=== PATIENT | female | born 1950 | race Caucasian/White ===

== ENCOUNTER → 2016-06-23 | Outpatient (CLI) | payer MEDICAID ==
[~2016-06-23] MED LIST: AMLO10TA82 PO; ASPI-875 PO; ATOR40TA PO; CETI10CA PO; CHOL10003 PO; CLN150C PO; FURO20TA4 PO; GLIP10TA13 PO; GLIP5TAB26 PO; HYDR-1231 PO; HYDR-3816 PO; HYDR1TAB71 PO; LISI5TAB PO; LORA10TA7 PO; LOSA25TA15 PO; MAGN400C PO; METF-380 PO; MTF500T PO; POTA10CA43 PO; RT-ALBUTEROL SULF 2.5 MG/3 ML PRE-MIX VIAL INH ONE; SITA100T PO
== END ==
LOC: RT 11:22
PROVIDERS: ATTEND Internal Medicine Critical Care Medicine
DX: R06.09 Other forms of dyspnea (principal); E66.9 Obesity, unspecified; G47.33 Obstructive sleep apnea (adult) (pediatric); J30.9 Allergic rhinitis, unspecified
CPT/HCPCS: 94060; 94640; 94726; 94729

== ENCOUNTER → 2016-07-07 | Outpatient (CLI) | payer MEDICAID ==
[~2016-07-07] MED LIST changes: -RT-ALBUTEROL SULF 2.5 MG/3 ML PRE-MIX VIAL INH ONE
--- NOTE | 2016-07-07 08:56 | Diagnostic Imaging Report ---
INDICATION: Pneumonia. Comparison made with prior examination 11/19/15. FINDINGS: The heart size, mediastinal configuration, and pulmonary vascularity are within normal limits. There is no pleural effusion, pneumothorax, or pneumonia. The osseous structures are unremarkable. IMPRESSION: No acute cardiopulmonary abnormality. Dictated by: Dictated on workstation # [id number]
== END ==
LOC: RAD 08:33
PROVIDERS: ATTEND Nurse Practitioner Family
DX: J18.9 Pneumonia, unspecified organism (principal)
CPT/HCPCS: 71020

== ENCOUNTER → 2016-07-21 | Outpatient (CLI) | payer MEDICAID ==
--- NOTE | 2016-07-22 17:16 | Diagnostic Imaging Report ---
Bilateral screening mammogram The current study was also evaluated with a Computer Aided Detection (CAD) system. INDICATION: Screening. No current complaints stated on the questionnaire. COMPARISON: 06/27/2015. FINDINGS: The breasts are composed of heterogeneously dense parenchyma which may decrease mammographic sensitivity. There are scattered benign-appearing calcifications. Allowing for technique and positional differences, no suspicious change is seen. IMPRESSION: Dense breasts with no definite change. ACR BI-RADS Category 2: Benign findings. Result letter will be mailed to the patient. Note: At least 10% of breast cancer is not imaged by mammography. Dictated by: Dictated on workstation # [id number]
== END ==
LOC: RAD 13:47
PROVIDERS: ATTEND Nurse Practitioner Family
DX: Z12.31 Encounter for screening mammogram for malignant neoplasm of breast (principal)
CPT/HCPCS: 77067

== ENCOUNTER → 2016-07-21 | Outpatient (CLI) | payer MEDICAID ==
--- NOTE | 2016-07-21 14:22 | Diagnostic Imaging Report ---
PROCEDURE: CT chest without contrast. TECHNIQUE: Multiple contiguous axial images were obtained through the chest without the use of intravenous contrast. INDICATION: Shortness of breath. FINDINGS: There is a pericardial effusion layering out to a depth of up to 12 mm in thickness. The lungs are clear. There are no effusions or pneumothoraces. There is minimal calcific atherosclerosis of the aorta and aortic valve. There is no hilar or mediastinal lymphadenopathy. Images through the upper abdomen show stones layering in the dependent portion of the gallbladder. IMPRESSION: Cholecystolithiasis. Pericardial effusion. The pericardial effusion appears stable compared to CTA chest dated 06/07/2016. There has been interval clearing of the infiltrate in the right lung since the prior study. Dictated by: Dictated on workstation # [id number]
== END ==
LOC: RAD 13:42
PROVIDERS: ATTEND Nurse Practitioner Family
DX: G47.33 Obstructive sleep apnea (adult) (pediatric) (principal); J30.9 Allergic rhinitis, unspecified; E66.9 Obesity, unspecified; F41.9 Anxiety disorder, unspecified; D12.6 Benign neoplasm of colon, unspecified
CPT/HCPCS: 71250

== ENCOUNTER → 2016-10-07 | Outpatient (CLI) | payer MEDICAID ==
--- NOTE | 2016-10-11 10:31 | ECHOCARDIOGRAPHY REPORT ---
DATE OF SERVICE: 10/07/2016 REFERRING PHYSICIAN: Dr. Vicky Carrasco, [facility]. INDICATION: Coronary artery disease, hypertension. MEASUREMENTS: TopofForm LVID end diastolic 5.0, IVS thickness 1.2, LVPW thickness 1.2, left atrial diameter 5.3, ejection fraction 60%. FINDINGS: 1. Technical quality is good. 2. The left ventricle is normal in size with moderate left ventricular hypertrophy noted diffusely. Systolic function appeared to be normal. Estimated ejection fraction is 60%. Diastolic dysfunction is suggested by Doppler. 3. The left atrium is dilated. No clot or thrombus were seen within the left atrium. 4. The right atrium and right ventricle are normal in size. No clots or thrombus were seen within the right side. 5. Mitral valve is normal in morphology with mild mitral regurgitation noted by carotid Doppler flow. No mitral valve prolapse. No mitral valve stenosis. 6. The aortic valve is trileaflet with normal opening and closing pattern. No significant aortic stenosis or regurgitation was seen. 7. The tricuspid valve is normal in morphology with mild tricuspid regurgitation noted by carotid Doppler flow, Doppler echo of the tricuspid valve. Estimated pulmonary artery pressure of 37 plus right atrial pressure. 8. Pulmonic valve is functioning normally. 9. Small pericardial effusion of no hemodynamic significance was noted. CONCLUSION: 1. Moderate left ventricular hypertrophy noted diffusely with normal systolic function. Estimated ejection fraction is 60%. Diastolic dysfunction is suggested by Doppler. 2. Left atrial dilatation. 3. Mild mitral regurgitation. Mild tricuspid regurgitation. 4. Estimated pulmonary artery pressure of 45 mmHg. Job ID: [id number] DocumentID: [id number] Dictated Date: 10/11/2016 09:49:15 Product Marketing Coordinator Date: 10/11/2016 10:19:45 Dictated By: LISA PAIGE MD
== END ==
LOC: CARD 08:37
PROVIDERS: ATTEND Physician Assistant
DX: I25.10 Atherosclerotic heart disease of native coronary artery without angina pectoris (principal); I65.23 Occlusion and stenosis of bilateral carotid arteries; I10 Essential (primary) hypertension; R06.02 Shortness of breath
CPT/HCPCS: 93306

== ENCOUNTER → 2017-05-02 | Outpatient (CLI) | payer MEDICAID, MEDICARE | LOC: WOUNDCARE 09:29 | PROVIDERS: ATTEND Surgery | DX: L03.031 Cellulitis of right toe (principal); E11.628 Type 2 diabetes mellitus with other skin complications; S90.211A Contusion of right great toe with damage to nail, initial encounter | CPT/HCPCS: 99213 ==

== ENCOUNTER → 2017-07-22 | Outpatient (CLI) | payer MEDICARE, MEDICAID ==
[~2017-07-22] MED LIST changes: +HYDR-34 PO; -HYDR-3816 PO
--- NOTE | 2017-07-22 12:03 | Diagnostic Imaging Report ---
INDICATION: Routine screening. COMPARISON: Comparison is made with prior studies from 07/21/2016 and 06/27/2015. The current study was also evaluated with a Computer Aided Detection (CAD) system. FINDINGS: Both breasts are heterogeneously dense, limiting the sensitivity of mammography. The parenchymal pattern is stable. No dominant mass or malignant-appearing microcalcifications are seen. There are scattered benign-appearing parenchymal and vascular calcifications bilaterally. The axillae are unremarkable. IMPRESSION: No mammographic features suspicious for malignancy are identified. ACR BI-RADS Category 2: Benign findings. Result letter will be mailed to the patient. Note: At least 10% of breast cancer is not imaged by mammography. Dictated by: Dictated on workstation # [id number]
== END ==
LOC: RAD 09:52
PROVIDERS: ATTEND Nurse Practitioner Family
DX: Z12.31 Encounter for screening mammogram for malignant neoplasm of breast (principal)
CPT/HCPCS: 77067

== ENCOUNTER 2017-10-25 05:40 | Outpatient (CLI) | payer MEDICARE, MEDICAID ==
[~2017-10-25] VITALS: Ht 175.3 cm; Wt 115.2 kg
[2017-10-25] MEDS ORDERED: MONT10TA24 PO (15:12)
[2017-10-25] MEDS ORDERED: RT-ALBUINH IH (15:12)
[2017-10-25] MEDS ORDERED: ATOR40TA70 PO (15:12)
[2017-10-25] MEDS ORDERED: HYDR-3816 PO (15:12)
[2017-10-25] MEDS ORDERED: FURO20TA4 PO (15:12)
[2017-10-25] MEDS ORDERED: BACL20TA PO (15:12)
[2017-10-25] MEDS ORDERED: GLIP10TA13 PO (15:12)
[2017-10-25] MEDS ORDERED: ALBU0.63 IH (15:12)
[2017-10-25] MEDS ORDERED: METF10002 PO (15:12)
[2017-10-25] MEDS ORDERED: POTA10TA36 PO (15:12)
[2017-10-25] MEDS ORDERED: ASPI-999 PO (15:12)
[2017-10-25] MEDS ORDERED: FLUT9.9S NS (15:12)
[2017-10-25] MEDS ORDERED: LOSA50TA36 PO (15:12)
[2017-10-25] MEDS ORDERED: AMLO10TA2 PO (15:12)
[2017-10-25] MEDS ORDERED: LIRA0.6P SQ (15:12)
[2017-10-25] MEDS ORDERED: CETI10TA17 PO (15:12)
[2017-10-25] MEDS ORDERED: FERR-84 PO (15:12)
[2017-11-01] MEDS ORDERED: PANT40TA2 PO (09:30)
[2017-11-07] MEDS ORDERED: ACHD5005 PO (16:59)
== END 2017-10-25 15:16 ==
LOC: PREOP 05:40
PROVIDERS: ATTEND Surgery
DX: Z01.818 Encounter for other preprocedural examination (principal); D64.9 Anemia, unspecified; K92.1 Melena

== ENCOUNTER 2017-11-01 07:53 | Day surgery (SDC) | payer MEDICARE, MEDICAID ==
[~2017-11-01] VITALS: Ht 175.3 cm; Wt 115.2 kg
[~2017-11-01 07:53] MED LIST changes: +ALBU0.63 IH; +AMLO10TA2 PO; +ASPI-999 PO; +ATOR40TA70 PO; +BACL20TA PO; +CETI10TA17 PO; +FERR-84 PO; +FLUT9.9S NS; +HYDR-3816 PO; +LIRA0.6P SQ; +LOSA50TA36 PO; +METF10002 PO; +MONT10TA24 PO; +POTA10TA36 PO; +RT-ALBUINH IH
[2017-11-01] MEDS ORDERED: LACTATED RINGERS 1,000 ML IV ONE (07:58)
[2017-11-01] MEDS ORDERED: ceFAZolin 2 GM IV Premixed 50 ML ONE (08:07)
[2017-11-01] MEDS ORDERED: PROPOFOL INJECTION 50 ML IV ONE (08:07)
--- OUTSIDE RECORDS SUMMARY | 2017-11-01 08:07 | XMS REPORT ---
Author Author BOOGIE ARAUJO Organization [employer] Address Unknown Phone Unavailable Care Team Providers Care Tree Marker Name Role Phone BOOGIE ARAUJO CP Unavailable Allergies No Known Allergies Problems Problem Type Condition Code Onset Dates Condition Status Problem Other specified counseling V65.49 Active Problem Pain in joint, lower leg 719.46 Active Problem Routine gynecological examination V72.31 Active Problem Dysuria 788.1 Active Problem Issue of repeat prescriptions V68.1 Active Problem Diabetes 250.00 Active Problem Abdominal pain, other specified site 789.09 Active Problem Unspecified abnormal mammogram 793.80 Active Problem Pain in soft tissues of limb 729.5 Active Problem Unspecified constipation 564.00 Active Problem Urinary tract infection, site not specified 599.0 Active Problem Pain in joint, shoulder region 719.41 Active Assessment 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, controlled E11.9 Active Problem Other chronic pain 338.29 Active Assessment Seborrheic keratosis L82.1 Active Problem Unspecified breast screening V76.10 Active Medications No Known Medications Procedures Procedure Coding System Code Date COMPREHEN METABOLIC PANEL CPT-4 22338 May 07, 2015 ASSAY THYROID STIM HORMONE CPT-4 09456 May 07, 2015 COMPLETE CBC W/AUTO DIFF WBC CPT-4 94776 May 07, 2015 VENIPUNCT, ROUTINE* CPT-4 96749 May 07, 2015 LIPID PANEL CPT-4 02689 May 07, 2015 Results Name Result Date Reference Range Unit Abnormality Flag ROUTINE VENIPUNCTURE Summary Purpose eClinicalWorks Submission
--- OUTSIDE RECORDS SUMMARY | 2017-11-01 08:07 | XMS REPORT ---
Author Author BOOGIE ARAUJO [facility] e[employer] Address Unknown Phone Unavailable Care Team Providers Care Manuscripts Archivist Name Role Phone BOOGIE ARAUJO CP Unavailable Allergies, Adverse Reactions, Alerts Substance Reaction Event Type Diclofenac rash Drug Allergy Trilipix Info Not Available Drug Allergy Simcor chest pain, due to high doses of niacin in the simcor Drug Allergy Meloxicam elevated BG, fluid retention Drug Allergy Hydrochlorothiazide Info Not Available Drug Allergy Dimetapp Maximum Strength Info Not Available Drug Allergy BusPIRone HCl dizziness Drug Allergy Augmentin Info Not Available Drug Allergy Problems Problem Type Condition Code Onset Dates Condition Status Problem History of type 2 diabetes mellitus Z86.39 Active Problem History of abnormal mammogram Z87.898 Active Problem History of colon polyps Z86.010 Active Problem Unspecified constipation K59.00 Active Problem Nonspecific abdominal pain R10.9 Active Problem Pain in soft tissues of limb M79.609 Active Problem Other chronic pain G89.29 Active Problem Pain in joint, shoulder region M25.519 Active Problem H/O abnormal mammogram Z87.898 Active Problem Pain in joint, lower leg M25.569 Active Assessment 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, controlled E11.9 Active Assessment Seborrheic keratoses L82.1 Active Problem Numerous moles D22.9 Active Problem Thyroid nodule E04.1 Active Assessment Skin tags, multiple acquired L91.8 Active Problem Alternating constipation and diarrhea R19.8 Active Problem 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, controlled E11.9 Active Problem History of abnormal cervical Pap smear Z87.898 Active Medications Medication Code System Code Instructions Start Date End Date Status Dosage GlipiZIDE [facility] 78214249246 10 2 times a day 1 tablet Norvasc [facility] 86810273751 10 Once a day 1 tablet Colace [facility] [address]-42 100 mg Jun 28, 2014 1 capsule by Oral route 2 times per day PRN Zyrtec Allergy [facility] 14246381836 10 Once a day 1 tablet Aspirin [facility] 52282554958 81 TAKE ONE TABLET BY MOUTH DAILY MetFORMIN HCl ER [facility] [address]-95 750 MG Orally 2 times a day 1 tablet with evening meal Cozaar [facility] 89700528205 25 Once a day 1 tablet Blood Pressure Cuff [facility] 0 Apr 12, 2014 Dx: Hypertension Lipitor [facility] 89689410808 40 Once a day 1 tablet Vitamin D [facility] [address]-50 1000 UNIT Orally Once a day 1 tablet [place] [facility] [address]-10 7.5-325 MG Orally 3 times a day May 06, 2015 1 tablet as needed Procedures Procedure Coding System Code Date CRYOTHERAPY OF SKIN CPT-4 50673 Jun 17, 2015 Office Visit, Est Pt., Level 3 CPT-4 51751 Jun 17, 2015 Vital Signs Date/Time: Jun 17, 2015 Temperature 97.7 F Weight 262.6 lbs Height 69 in BMI 38.78 Index Blood Pressure Diastolic 84 mmHg Blood Pressure Systolic 136 mmHg Cardiac Monitoring Heart Rate 120 bpm Results Name Result Date Reference Range Unit Abnormality Flag CRYOTHERAPY OF SKIN Summary Purpose eClinicalWorks Submission
--- OUTSIDE RECORDS SUMMARY | 2017-11-01 08:07 | XMS REPORT ---
Author Author BOOGIE ARAUJO Organization [employer] Address Unknown Phone Unavailable Care Team Providers Care Double Needle Operator Lockstitch Name Role Phone BOOGIE ARAUJO CP Unavailable [...] Pain in joint, shoulder region 719.41 Active Problem Other chronic pain 338.29 Active Problem Unspecified breast screening V76.10 Active Medications No Known Medications Results No Known Results Summary Purpose eClinicalWorks Submission
--- OUTSIDE RECORDS SUMMARY | 2017-11-01 08:07 | XMS REPORT ---
Author BOOGIE Terrazas [facility] [place] e[employer] Address Unknown Phone Unavailable Care Team Providers Care Production Quality Manager Name Role Phone BOOGIE ARAUJO CP Unavailable [...] 729.5 Active Problem Unspecified constipation 564.00 Active Assessment Seborrheic keratoses L82.1 Active Assessment Skin tags, multiple acquired L91.8 Active Problem Urinary tract infection, site not specified 599.0 Active Problem Pain in joint, shoulder region 719.41 Active Assessment Encounter for immunization Z23 Active Problem Other chronic pain 338.29 Active Assessment Nevoid hyperpigmentation L81.9 Active Problem Unspecified breast screening V76.10 Active Medications Medication Code System Code Instructions Start Date End Date Status Dosage Aspirin [facility] 88055758053 81 TAKE ONE TABLET BY MOUTH DAILY Hydrocodone-Acetaminophen [facility] [address]-20 7.5-325 MG Orally every 8 hrs PRN MUST LAST 28 DAYS September 13, 2014 take 1 tablet Lipitor ND 22477614474 40 TAKE ONE TABLET BY MOUTH ONCE A DAY ZyrTEC NDC 0 10 mg Apr 12, 2014 1 tablet by Oral route 1 time per day Cozaar [facility] 60711062036 25 TAKE ONE TABLET BY MOUTH DAILY MetFORMIN HCl ER [facility] 75853104041 500 TAKE ONE TABLET BY MOUTH TWICE A DAY WITH MEALS GlipiZIDE [facility] 97963679703 10 TAKE ONE TABLET BY MOUTH TWICE A DAY BEFORE MEALS Colace [facility] [address]-99 100 mg Jun 28, 2014 1 capsule by Oral route 2 times per day PRN Blood Pressure Cuff [facility] 0 Apr 12, 2014 Dx: Hypertension Norvasc [facility] 90992646519 10 TAKE ONE TABLET BY MOUTH DAILY Procedures Procedure Coding System Code Date FLUARIX QUAD (3 & UP)-GSK CPT-4 27669 Mar 25, 2015 SINGLE IMMUNIZATION ADMIN CPT-4 94174 Mar 25, 2015 CRYOTHERAPY OF SKIN CPT-4 50902 Mar 25, 2015 Vital Signs Date/Time: Mar 25, 2015 Temperature 97.5 F Weight 266.9 lbs Height 69 in BMI 39.41 Index Blood Pressure Diastolic 84 mmHg Blood Pressure Systolic 138 mmHg Cardiac Monitoring Heart Rate 88 bpm Results No Known Results Immunizations Vaccine Administration Date FLUARIX QUAD (3 & UP)-GSK-2014Mar 25, 2015 Summary Purpose eClinicalWorks Submission
--- OUTSIDE RECORDS SUMMARY | 2017-11-01 08:07 | XMS REPORT ---
Author Author BOOGIE ARAUJO Organization [employer] Address Unknown Phone Unavailable Care Team Providers Care Switchboard Operator Helper Name Role Phone BOOGIE ARAUJO CP Unavailable Allergies No Known Allergies Problems Problem Type Condition ICD-9 Code Onset Dates Condition Status Problem Other [...] Instructions Start Date End Date Status Dosage Hydrocodone-Acetaminophen [facility] [address]-93 7.5-325 MG Orally every 8 hrs PRN MUST LAST 28 DAYS September 13, 2014 take 1 tablet Results No Known Results Summary Purpose eClinicalWorks Submission
--- OUTSIDE RECORDS SUMMARY | 2017-11-01 08:07 | XMS REPORT ---
Author Author BOOGIE ARAUJO Organization [facility] Address [address] [place] [address] Care Team Providers Care Central Office Maintainer Name Role Phone BOOGIE ARAUJO Unavailable PROBLEMS Type Condition ICD9-CM Code [id number] Code Onset Dates Condition Status SNOMED Code Problem Pain in joint, shoulder region M25.519 Active 295204540 Problem Pain in joint, lower leg M25.569 Active 782328479 Problem Other chronic pain G89.29 Active 225583490 Problem Thoracogenic scoliosis of thoracolumbar region M41.35 Active 71733507 Problem Uncontrolled type 2 diabetes mellitus without complication, without long-term current use of insulin E11.65 Active 008446042 Problem Nonspecific abdominal pain R10.9 Active 104215989 Problem H/O abnormal mammogram Z87.898 Active 987330861 Problem Pain in soft tissues of limb M79.609 Active 64828820 Problem Unspecified constipation K59.00 Active 20659002 Problem 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, controlled E11.9 Active 49048132 Problem Numerous moles D22.9 Active 185086878 Assessment Pain in unspecified shoulder M25.519 13 May, 2016 Active 597047729 Problem History of abnormal cervical Pap smear Z87.898 Active 715238482 Problem History of type 2 diabetes mellitus Z86.39 Active 268534543 Problem Thyroid nodule E04.1 Active 810785029 Problem History of colon polyps Z86.010 Active 969383267 Problem Alternating constipation and diarrhea R19.8 Active 435367510 Problem History of abnormal mammogram Z87.898 Active 756161785 ALLERGIES Unknown Allergies SOCIAL HISTORY No smoking Hx information available PLAN OF CARE VITAL SIGNS MEDICATIONS Medication Instructions Dosage Frequency Start Date End Date Duration Status [place] 7.5-325 MG Orally 3 times a day 1 tablet as needed 8h 17 Apr, 2015 Active RESULTS No Results PROCEDURES No Known procedures IMMUNIZATIONS No Known Immunizations
--- OUTSIDE RECORDS SUMMARY | 2017-11-01 08:07 | XMS REPORT ---
Author Author BOOGIE ARAUJO Organization [employer] Address Unknown Phone Unavailable Care Team Providers Care Wet Mix Operator Name Role Phone BOOGIE ARAUJO CP Unavailable [...] Pain in joint, lower leg M25.569 Active Problem Numerous moles D22.9 Active Problem Thyroid nodule E04.1 Active Problem Alternating constipation and diarrhea R19.8 Active Problem 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, controlled E11.9 Active Problem History of abnormal cervical Pap smear Z87.898 Active Medications No Known Medications Results No Known Results Summary Purpose eClinicalWorks Submission
--- OUTSIDE RECORDS SUMMARY | 2017-11-01 08:07 | XMS REPORT ---
Author Author BOOGIE ARAUJO Organization [facility] Address [address] [place] [address] Care Team Providers Care Remote Encoding Center Manager Name Role Phone BOOGIE ARAUJO Unavailable PROBLEMS Type Condition ICD9-CM Code [id number] Code Onset Dates Condition Status SNOMED Code Problem Thyroid nodule E04.1 Active 927509986 Problem 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, controlled E11.9 Active 40195974 Problem Screening breast examination Z12.39 Active 294964317 Problem Allergic rhinitis, unspecified allergic rhinitis trigger, unspecified rhinitis seasonality J30.9 Active 04033528 Problem History of abnormal cervical Pap smear Z87.898 Active 773871818 Problem History of colon polyps Z86.010 Active 837272958 Problem Thoracogenic scoliosis of thoracolumbar region M41.35 Active 93058325 Problem Uncontrolled type 2 diabetes mellitus without complication, without long-term current use of insulin E11.65 Active 656616178 ALLERGIES Unknown Allergies SOCIAL HISTORY No smoking Hx information available PLAN OF CARE VITAL SIGNS MEDICATIONS Medication Instructions Dosage Frequency Start Date End Date Duration Status [place] 7.5-325 MG Orally 3 times a day 1 tablet as needed 8h 10 Jun, 2016 28 days Active RESULTS No Results PROCEDURES No Known procedures IMMUNIZATIONS No Known Immunizations
[2017-11-01] MEDS ORDERED: proPOfol 200 MG/20 ML (DIPRIVAN) VIAL IV ONE ×2 (08:08→08:58)
--- NOTE | 2017-11-01 08:08 | Progress Note-Pre Operative ---
Pre-Operative Progress Note H&P Reviewed The H&P was reviewed, patient examined and no changes noted. Date Seen by Provider: November 01, 2017 Time Seen by Provider: 08:07 Date H&P Reviewed: November 01, 2017 Time H&P Reviewed: 08:07 Pre-Operative Diagnosis: constipation, blood in stool, iron def anemia DAVID SMYTH DO November 01, 2017 08:08
--- OUTSIDE RECORDS SUMMARY | 2017-11-01 08:08 | XMS REPORT ---
Author BOOGIE Terrazas [facility] eClinicalWorks Address Unknown Phone Unavailable Care Team Providers Care Resp Ther Name Role Phone BOOGIE ARAUJO CP Unavailable [...] Available Drug Allergy Problems Problem Type Condition ICD-9 Code Onset [...] Active Problem Unspecified constipation 564.00 Active Assessment Shoulder pain, left 719.41 Active Problem Urinary tract infection, site not specified 599.0 Active Problem Pain in joint, shoulder region 719.41 Active Assessment Tinea corporis 110.5 Active Problem Other chronic pain 338.29 Active Assessment Diabetes 250.00 Active Problem Unspecified breast screening V76.10 Active Medications Medication Code System Code Instructions Start Date End Date Status Dosage Colace [facility] [address]-69 100 mg Jun 28, 2014 1 capsule by Oral route 2 times per day PRN Blood Pressure Cuff [place] 0 Apr 12, 2014 Dx: Hypertension Hydrocodone-Acetaminophen [facility] [address]-75 7.5-325 MG Orally every 8 hrs PRN MUST LAST 28 DAYS September 13, 2014 take [address] [facility] 70575800621 10 TAKE ONE TABLET BY MOUTH DAILY ZyrTEC ND 0 10 mg Apr 12, 2014 1 tablet by Oral route 1 time per day Aspirin [facility] 38951807456 81 TAKE ONE TABLET BY MOUTH DAILY Lipitor [facility] 87849288866 40 TAKE ONE TABLET BY MOUTH ONCE A DAY Cozaar [facility] 11972559588 25 TAKE ONE TABLET BY MOUTH DAILY GlipiZIDE [facility] 49991858233 10 TAKE ONE TABLET BY MOUTH TWICE A DAY BEFORE MEALS MetFORMIN HCl ER [facility] 93551506887 500 TAKE ONE TABLET BY MOUTH TWICE A DAY WITH MEALS Procedures Procedure Coding System Code Date MICROALBUMIN, SEMIQUANT CPT-4 68163 Feb 26, 2015 Office Visit, Est Pt., Level 3 CPT-4 52951 Feb 26, 2015 GLYCATED HEMOGLOBIN TEST CPT-4 38506 Feb 26, 2015 URINALYSIS, AUTO W/SCOPE CPT-4 36738 Feb 26, 2015 URINALYSIS, AUTO, W/O SCOPE CPT-4 79624 Feb 26, 2015 Vital Signs Date/Time: Feb 26, 2015 Temperature 98.0 F Weight 266 lbs Height 69 in BMI 39.28 Index Blood Pressure Diastolic 82 mmHg Blood Pressure Systolic 138 mmHg Cardiac Monitoring Heart Rate 78 bpm Results No Known Results Summary Purpose eClinicalWorks Submission
--- OUTSIDE RECORDS SUMMARY | 2017-11-01 08:08 | XMS REPORT ---
Author Author HELIO WILEY [employer] Address Unknown Phone Unavailable Care Team Providers Care Skill Labor Name Role Phone HELIO WILEY CP Unavailable Allergies, Adverse Reactions, Alerts Substance [...] Type Condition Code Onset Dates Condition Status Assessment Other hemorrhoids K64.8 Active Assessment Other fatigue R53.83 Active Assessment Numerous moles D22.9 Active Assessment Thyroid nodule E04.1 Active Problem History of abnormal cervical Pap smear Z87.898 Active Assessment Cold intolerance R68.89 Active Problem History of type 2 diabetes mellitus Z86.39 Active Assessment Alternating constipation and diarrhea R19.8 Active Problem History of colon polyps Z86.010 Active Problem Diabetes E11.9 Active Problem History of abnormal mammogram Z87.898 Active Problem Unspecified constipation K59.00 Active Problem Nonspecific abdominal pain R10.9 Active Assessment History of abnormal cervical Pap smear Z87.898 Active Assessment History of anxiety Z86.59 Active Problem Pain in soft tissues of limb M79.609 Active Assessment History of depression Z86.59 Active Problem Other chronic pain G89.29 Active Problem Pain in joint, shoulder region M25.519 Active Problem H/O abnormal mammogram Z87.898 Active Problem Pain in joint, lower leg M25.569 Active Assessment History of abnormal mammogram Z87.898 Active Assessment Papanicolaou smear Z12.4 Active Assessment History of type 2 diabetes mellitus Z86.39 Active Assessment History of colon polyps Z86.010 Active Problem Thyroid nodule E04.1 Active Problem Alternating constipation and diarrhea R19.8 Active Assessment Well woman exam Z01.419 Active Problem Numerous moles D22.9 Active Medications Medication Code System Code Instructions Start Date End Date Status Dosage Blood Pressure Cuff [facility] 0 Apr 12, 2014 Dx: Hypertension Norvasc [facility] 82964344522 10 TAKE ONE TABLET BY MOUTH DAILY Vitamin D [facility] [address]-71 1000 UNIT Orally Once a day 1 tablet Lipitor [facility] 42268186240 40 TAKE ONE TABLET BY MOUTH ONCE A DAY Zyrtec Allergy [facility] 56071002751 10 TAKE ONE TABLET BY MOUTH DAILY [place] [facility] [address]-93 7.5-325 MG Orally 3 times a day May 06, 2015 1 tablet as needed GlipiZIDE [facility] 99709583050 10 TAKE ONE TABLET BY MOUTH TWICE A DAY BEFORE MEALS Cozaar [facility] 48280778012 25 TAKE ONE TABLET BY MOUTH DAILY Aspirin [facility] 95462509891 81 TAKE ONE TABLET BY MOUTH DAILY MetFORMIN HCl ER [facility] 33545298367 500 TAKE ONE TABLET BY MOUTH TWICE A DAY WITH MEALS Colace [facility] [address]-98 100 mg Jun 28, 2014 1 capsule by Oral route 2 times per day PRN Procedures Procedure Coding System Code Date ASSAY, TRIIODOTHYRONINE (T3) CPT-4 75976 Jun 09, 2015 SPECIMEN HANDLING CPT-4 72977 Jun 09, 2015 ASSAY OF FREE THYROXINE CPT-4 43354 Jun 09, 2015 Preventive Care Est Pt. Age 40-64 CPT-4 18295 Jun 09, 2015 VENIPUNCT, ROUTINE* CPT-4 04851 Jun 09, 2015 Vital Signs Date/Time: Jun 09, 2015 Temperature 98.7 F Weight 270.0 lbs Height 69 in BMI 39.87 Index Blood Pressure Diastolic 78 mmHg Blood Pressure Systolic 132 mmHg Cardiac Monitoring Heart Rate 80 bpm Results Name Result Date Reference Range Unit Abnormality Flag ROUTINE VENIPUNCTURE Summary Purpose eClinicalWorks Submission
--- OUTSIDE RECORDS SUMMARY | 2017-11-01 08:08 | XMS REPORT ---
Author Author BOOGIE ARAUJO [facility] Address [address] [place] [address] Care Team Providers Care Tab Cutting Machine Operator Name Role Phone BOOGIE ARAUJO Unavailable PROBLEMS Type Condition ICD9-CM Code LZV87-ZV Code Onset Dates Condition Status SNOMED Code Problem Thyroid nodule E04.1 Active 319619835 Problem 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, controlled E11.9 Active 21457830 Problem Allergic rhinitis, unspecified allergic rhinitis trigger, unspecified rhinitis seasonality J30.9 Active 29766683 Problem Screening breast examination Z12.39 Active 883311066 Problem History of colon polyps Z86.010 Active 187394421 Problem History of abnormal cervical Pap smear Z87.898 Active 622721415 Problem Thoracogenic scoliosis of thoracolumbar region M41.35 Active 49265344 Problem Uncontrolled type 2 diabetes mellitus without complication, without long-term current use of insulin E11.65 Active [id number] ALLERGIES Unknown Allergies SOCIAL HISTORY No smoking Hx information available PLAN OF CARE VITAL SIGNS MEDICATIONS Unknown Medications RESULTS No Results PROCEDURES No Known procedures IMMUNIZATIONS No Known Immunizations
--- OUTSIDE RECORDS SUMMARY | 2017-11-01 08:08 | XMS REPORT ---
Author BOOGIE Terrazas [facility] e[employer] Address Unknown Phone Unavailable Care Team Providers Care Waste Elimination Name Role Phone BOOGIE ARAUJO CP Unavailable [...] Instructions Start Date End Date Status Dosage Bactrim DS [facility] [address]-71 800-160 MG Orally 2 times a day May 06, 2015 May 16, 2015 1 tablet ZyrTEC ND 0 10 mg Apr 12, 2014 1 tablet by Oral route 1 time per day Colace [facility] [address]-79 100 mg Jun 28, 2014 1 capsule by Oral route 2 times per day PRN Zyrtec Allergy [facility] 06576045102 10 TAKE ONE TABLET BY MOUTH DAILY GlipiZIDE [facility] 13301404839 10 TAKE ONE TABLET BY MOUTH TWICE A DAY BEFORE MEALS Norvasc [facility] 95747565102 10 TAKE ONE TABLET BY MOUTH DAILY Blood Pressure Cuff [facility] 0 Apr 12, 2014 Dx: Hypertension [place] [facility] [address]-15 7.5-325 MG Orally 3 times a day May 06, 2015 1 tablet as needed Lipitor [facility] 39542112387 40 TAKE ONE TABLET BY MOUTH ONCE A DAY Aspirin [facility] 58425087429 81 TAKE ONE TABLET BY MOUTH DAILY MetFORMIN HCl ER [facility] 79231266503 500 TAKE ONE TABLET BY MOUTH TWICE A DAY WITH MEALS Cozaar [facility] 64357419727 25 TAKE ONE TABLET BY MOUTH DAILY Procedures Procedure Coding System Code Date Office Visit, Est Pt., Level 3 CPT-4 30199 May 06, 2015 Vital Signs Date/Time: May 06, 2015 Temperature 97.7 F Weight 266.7 lbs Height 69 in BMI 39.38 Index Blood Pressure Diastolic 80 mmHg Blood Pressure Systolic 130 mmHg Cardiac Monitoring Heart Rate 82 bpm Results No Known Results Summary Purpose eClinicalWorks Submission
--- OUTSIDE RECORDS SUMMARY | 2017-11-01 08:08 | XMS REPORT ---
Author Author BOOGIE ARAUJO Organization [employer] Address Unknown Phone Unavailable Care Team Providers Care Mix House Tender Name Role Phone BOOGIE ARAUJO CP Unavailable [...] Instructions Start Date End Date Status Dosage [facility] [place] [address]-16 7.5-325 MG Orally 3 times a day May 06, 2015 1 tablet as needed Results No Known Results Summary Purpose eClinicalWorks Submission
--- OUTSIDE RECORDS SUMMARY | 2017-11-01 08:08 | XMS REPORT ---
Author Author BOOGIE ARAUJO [facility] [employer] Address Unknown Phone Unavailable Care Team Providers Care Acls Specialist Name Role Phone BOOGIE ARAUJO CP Unavailable [...] Instructions Start Date End Date Status Dosage [facility] [address]-51 7.5-325 MG Orally 3 times a day May 06, 2015 1 tablet as needed Results No Known Results Summary Purpose eClinicalWorks Submission
--- OUTSIDE RECORDS SUMMARY | 2017-11-01 08:08 | XMS REPORT ---
Author Author COLLEEN STEPHENS [facility] e[employer] Address Unknown Phone Unavailable Care Team Providers Care Receivable Manager Name Role Phone COLLEEN STEPHENS CP Unavailable Allergies, Adverse Reactions, Alerts Substance [...] in joint, lower leg M25.569 Active Assessment Allergic rhinitis, unspecified allergic rhinitis type J30.9 Active Problem Numerous moles D22.9 Active Problem Thyroid nodule E04.1 Active Assessment Sore throat J02.9 Active Problem Alternating constipation and diarrhea R19.8 Active Problem 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, controlled E11.9 Active Problem History of abnormal cervical Pap smear Z87.898 Active Medications Medication Code System Code Instructions Start Date End Date Status Dosage GlipiZIDE [facility] 02933459096 10 2 times a day 1 tablet Lipitor [facility] 26413295445 40 Once a day 1 tablet Atorvastatin Calcium [facility] 17120789033 40 MG TAKE ONE TABLET BY MOUTH ONCE DAILY Vitamin D [facility] [address]-79 1000 UNIT Orally Once a day 1 tablet Amlodipine Besylate ND 40057193618 10 MG TAKE ONE TABLET BY MOUTH ONCE DAILY Aspirin [facility] 23557915215 81 TAKE ONE TABLET BY MOUTH DAILY Flonase [facility] [address]-62 50 MCG/ACT Nasally Once a day 1 spray in each nostril Losartan Potassium [facility] 59136331942 25 MG TAKE ONE TABLET BY MOUTH ONCE DAILY FreeStyle Test [facility] 24212883148 TEST 1 TIME PER DAY Blood Pressure Cuff [facility] 0 Apr 12, 2014 Dx: Hypertension MetFORMIN HCl ER [facility] [address]-09 750 MG Orally 2 times a day 1 tablet with evening meal Montelukast Sodium [facility] [address]-01 10 MG Orally Once a day 1 tablet in the evening Zyrtec Allergy [facility] 72150804939 10 Once a day 1 tablet Mcgregor [facility] [address]-20 7.5-325 MG Orally 3 times a day May 06, 2015 1 tablet as needed Procedures Procedure Coding System Code Date Office Visit, Est Pt., Level 3 CPT-4 98548 December 29, 2015 STREP A ASSAY W/OPTIC CPT-4 13364 December 29, 2015 Vital Signs Date/Time: December 29, 2015 Cardiac Monitoring Heart Rate 92 bpm Weight 264.2 lbs Height 69 in Blood Pressure Diastolic 70 mmHg Blood Pressure Systolic 138 mmHg Results No Known Results Summary Purpose eClinicalWorks Submission
--- OUTSIDE RECORDS SUMMARY | 2017-11-01 08:09 | XMS REPORT ---
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 Name Role Phone BOOGIE ARAUJO Unavailable PROBLEMS Type Condition ICD9-CM Code MTR93-IC Code Onset Dates Condition Status SNOMED Code Problem 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, controlled E11.9 Active 81226348 Problem History of abnormal cervical Pap smear Z87.898 Active 822596200 Problem History of colon polyps Z86.010 Active 028678107 Problem Other chronic pain G89.29 Active 62357222 Problem Screening breast examination Z12.39 Active 005033205 Problem Uncontrolled type 2 diabetes mellitus without complication, without long-term current use of insulin E11.65 Active 123181396 Problem Thyroid nodule E04.1 Active 122634271 Problem Allergic rhinitis, unspecified allergic rhinitis trigger, unspecified rhinitis seasonality J30.9 Active 01763422 Problem Thoracogenic scoliosis of thoracolumbar region M41.35 Active 66129547 ALLERGIES No Information ENCOUNTERS Encounter Location Date Diagnosis [facility] [id number] [place] [address] 64678- 6935 02 Sep, 2017 [facility] [id number] [place] [address] 02756- 6148 Aug, Other chronic pain G89.29 [facility] [id number] [place] [address] 25458- 9610 Jul, Other chronic pain G89.29 [facility] [address] 26528- 6313 16 Jul, 2017 Pneumonia of left lower lobe due to infectious organism J18.1 [facility] [id number] [place] [address] 31183 -2872 12 Jul, 2017 Dysuria R30.0 ; Cough in adult patient R05 and Pneumonia of left lower lobe due to infectious organism J18.1 [facility] [address], [place] [address] 7511 Jul, [facility] [id number] [place] [address] 27086- 8805 Jun, Other chronic pain G89.29 [facility] [id number] [place] [address] 56337- 7623 Jun, [facility] [id number] [place] [address] 53508- 2765 Jun, 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, controlled E11.9 ; Back muscle spasm M62.830 and Other chronic pain G89.29 [facility] [id number] [place] [address] 05744- 8280 Jun, Screening breast examination Z12.31 [facility] [id number] [place] [address] 96341- 0967 May, Other chronic pain G89.29 [facility] [address], [place] [address] 3916 May, [facility] [id number] [place] [address] 63010- 8362 May, UTI (urinary tract infection) N39.0 [facility] [address], [place] [address]- 1279 May, Dysuria R30.0 [facility] [id number] [place] [address] 80900- 0007 May, Dysuria R30.0 [facility] [id number] [place] [address] 36582- 5597 04 May, 2017 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, controlled E11.9 ; longterm current use of 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 Z79.891 and Other chronic pain G89.29 [facility] [address], [place] [address]- 2868 Apr, 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, controlled E11.9 [facility] [address], [place] [address] 30 Mar, 2017 Paronychia of great toe, right L03.031 and Dysuria R30.0 [facility] [address], [place] [address]- 7009 09 Mar, 2017 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, controlled E11.9 [facility] [id number] [place] [address] 13324- 1199 28 Feb, 2017 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, controlled E11.9 [facility] [id number] [place] [address] [id number] 13 Feb, 2017 Dental examination Z01.20 [facility] [id number] [place] [address] 25168- 3402 11 Feb, 2017 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, controlled E11.9 [facility] [id number] [place] [address] 39686- 1964 07 Feb, 2017 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, controlled E11.9 [facility] [id number] [place] [address] 46068- 5230 Jan, 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, controlled E11.9 [facility] [id number] [place] [address] 76612- 8022 Dec, 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, controlled E11.9 [facility] [id number] [place] [address] 27770- 6124 Dec, 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, controlled E11.9 [facility] [id number] [place] [address] 24166- 3882 Nov, 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, controlled E11.9 [facility] [id number] [place] [address] 10342- 4007 Nov, 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, controlled E11.9 [facility] [id number] [place] [address] 77206- 1663 Nov, 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, controlled E11.9 [facility] [id number] [place] [address] 37714- 2513 19 Nov, 2016 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, controlled E11.9 [facility] [id number] [place] [address] 48423- 2495 14 Nov, 2016 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, controlled E11.9 [facility] [id number] [place] [address] 35244- 3748 Nov, 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, controlled E11.9 [facility] [id number] [place] [address] 92728- 0921 October, Pain in unspecified shoulder M25.519 [facility] [id number] [place] [address] 21198- 7999 October, 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, controlled E11.9 and Cellulitis of right lower extremity L03.115 [facility] [id number] [place] [address] 31575- 8639 October, Pain in unspecified shoulder M25.519 [facility] [id number] [place] [address] 97763- 8765 Sep, 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, controlled E11.9 [facility] [id number] [place] [address] 65427- 2739 Aug, Pain in unspecified shoulder M25.519 [facility] [id number] [place] [address] 40515- 7234 Aug, 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, controlled E11.9 [facility] [id number] [place] [address] 96682- 5209 Aug, 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, controlled E11.9 ; Dark urine R82.99 and Localized edema R60.0 [facility] [id number] [place] [address] 03311- 7459 Aug, Pain in unspecified shoulder M25.519 [facility] [id number] [place] [address] 80492- 9615 Jul, Pain in unspecified shoulder M25.519 [facility] [id number] [place] [address] 88533- 4892 06 Jul, 2016 [facility] [id number] [place] [address] 80533- 6814 02 Jul, 2016 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, 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 E11.9 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 [facility] [id number] [place] [address] 81230- 7172 Jun, 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, controlled E11.9 [facility] [id number] [place] [address] 02115- 3623 18 Jun, 2016 Screening breast examination Z12.39 and Allergic rhinitis, unspecified allergic rhinitis trigger, unspecified rhinitis seasonality J30.9 [facility] [id number] [place] [address] 34319- 3000 10 Jun, 2016 Pain in unspecified shoulder M25.519 [facility] [address] 12674- 4650 May, [facility] [id number] [place] [address] 19106- 8574 May, Pain in unspecified shoulder M25.519 [facility] [id number] [place] [address] 91582- 1039 05 May, 2016 Thoracogenic scoliosis of thoracolumbar region M41.35 ; Low back pain M54.5 ; Other chronic pain G89.29 and Uncontrolled type 2 diabetes mellitus without complication, without long-term current use of insulin E11.65 [facility] [id number] [place] [address] 65587- 2059 Apr, [facility] [address] 04815- 4149 15 Apr, 2016 [facility] [id number] [place] [address] 49117- 3597 04 Apr, 2016 History of type 2 diabetes mellitus Z86.39 and Encounter for immunization Z23 [facility] [id number] [place] [address]- 2355 Mar, [facility] [id number] [place] [address], [place] [address]- 1734 Mar, [facility] [id number] [place] [address]- 7915 Feb, [facility] [id number] [place] [address], [place] [address]- 6289 Jan, [facility] [id number] [place] [address], [place] [address]- 8926 Jan, [facility] [id number] [place] [address], [place] [address]- 7706 Dec, [facility] [address], [place] [address] -[address]3 Dec, Sore throat J02.9 and Allergic rhinitis, unspecified allergic rhinitis type J30.9 [facility] [address], [place] [address]- 1384 Dec, 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, controlled E11.9 [facility] [id number] [place] [address], [place] [address]- 1517 Nov, [facility] [address], [place] [address]- 2444 Nov, [facility] [address], [place] [address]- 2534 October, [facility] [address], [place] [address]- 6081 October, [facility] [id number] [place] [address], [place] 3899 Sep, [facility] [id number] [place] [address]- 1680 Aug, [facility] [id number] [place] [address] 532280- 7470 Aug, 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, controlled E11.9 ; UTI (urinary tract infection) N39.0 and Bacterial infection A49.9 [facility] [id number] [place] [address] 85019- 9840 Jul, [facility] [id number] [place] [address] 12661- 9728 Jul, [facility] [address] 71206- 4321 Jul, Pharyngitis J02.9 and Seborrheic keratoses L82.1 [facility] [id number] [place] [address] 21687- 6901 Jun, [facility] [id number] [place] [address] 51097- 8732 May, [facility] [address] 55147- 1324 May, Skin tags, multiple acquired L91.8 ; Seborrheic keratoses L82.1 and 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, controlled E11.9 [facility] [address] [place] [address] 37725- 9652 May, Well woman exam Z01.419 ; Papanicolaou smear Z12.4 ; History of abnormal mammogram Z87.898 ; History of colon polyps Z86.010 ; History of type 2 diabetes mellitus Z86.39 ; History of abnormal cervical Pap smear Z87.898 ; History of anxiety Z86.59 ; History of depression Z86.59 ; Alternating constipation and diarrhea R19.8 ; Cold intolerance R68.89 ; Thyroid nodule E04.1 ; Numerous moles D22.9 ; Other hemorrhoids K64.8 and Other fatigue R53.83 [facility] [address] [place] [address] 79745- 1906 May, [facility] [address] [place] [address] 60912- 0335 May, [facility] [id number] [place] [address] 42285- 6961 Apr, Seborrheic keratosis L82.1 and 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, controlled E11.9 [facility] [id number] [place] [address] 38466- 8958 Apr, Seborrheic keratosis L82.1 and 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, controlled E11.9 [facility] [id number] [place] [address] 57725- 3336 Mar, [facility] [id number] [place] [address] 26420- 5945 Mar, [facility] [id number] [place] [address] 39553- 4840 Mar, Encounter for immunization Z23 ; Nevoid hyperpigmentation L81.9 ; Skin tags, multiple acquired L91.8 and Seborrheic keratoses L82.1 [facility] [id number] [place] [address] 35563- 5576 Feb, [facility] [id number] [place] [address] 79848- 2264 Feb, [facility] [id number] [place] [address] 48762- 5189 Feb, [facility] [id number] [place] [address] 88009- 6414 Feb, Diabetes 250.00 ; Tinea corporis 110.5 and Shoulder pain, left 719.41 [facility] [id number] [place] [address] 23040- 1456 Jan, [facility] [address] 91123- 0785 Dec, [facility] [id number] [place] [address] 77190- 3151 Dec, [facility] [id number] [place] [address] 90102- 2456 Dec, Seborrheic keratoses 702.19 ; Diabetes 250.00 and Hypoglycemia 251.2 [facility] [address] 0289 Nov, [facility] [id number], [place] [address]- 9389 Nov, Abnormal mammogram 793.80 [facility] [id number] [place] [address] 69573- 1132 October, Diabetes 250.00 and Colon polyp 211.3 [facility] [address], [place] [address]- 7959 Sep, [facility] [id number] [place] [address] 56099- 9897 Sep, [facility] [address], [place] [address]- 2540 Sep, [facility] [address], [place] [address]- 0668 Aug, [facility] [address], [place] [address]- 5763 Aug, [facility] [address], [place] [address]- 8009 Jul, [facility] [address], [place] [address]- 3221 Jul, [facility] [address], [place] [address]- 4724 Jun, [facility] [address], [place] [address]- 5896 Jun, [facility] [address], [place] [address]- 7426 Jun, [facility] [id number], [place] [address]- 4106 Jun, [facility] [id number] [place] [address]- 6138 Jun, [facility] [address] [id number] [place] [address]- 8474 Jun, [facility] [place] [facility] [address] [id number] [place] [address]- 4597 May, [facility] [place] [facility] [address] [id number] [place] [address]- 4540 May, [facility] [place] [facility] [address] [id number] [place] [address]- 9308 Apr, [facility] [place] [facility] [address] [id number] [place] [address]- 8129 Apr, [facility] [place] [facility] [address] [id number] [place] [address]- 9263 Apr, [facility] [place] [facility] [address] [id number] [place] [address]- 1106 Apr, [facility] [place] [facility] [address] [id number] [place] [address]- 5305 Apr, [facility] [place] [facility] [address] [id number] [place] [address]- 8289 Apr, [facility] [place] [facility] [address] [id number] [place] [address]- 9691 Apr, [facility] [place] [facility] [address] [id number] [place] [address]- 4914 Apr, [facility] [place] [facility] [address] [id number] [place] [address]- 3773 Apr, [facility] [place] [facility] [address] [id number] [place] [address]- 3979 Apr, [facility] [place] [facility] [address] [id number] [place] [address]- 1477 Mar, [facility] [place] [facility] [address] [id number] [place] [address]- 2261 Mar, [facility] [place] [facility] [address] [id number] [place] [address]- 2548 Mar, [facility] [place] [facility] [address] [id number] [place] [address]- 5516 Mar, [facility] [place] [facility] [address] [id number] [place] [address]- 4291 Mar, [facility] [place] [facility] [address] [id number] [place] [address]- 4694 Mar, [facility] [place] [facility] [address] [id number] [place] [address]- 7116 Mar, [facility] [place] [facility] [address] [id number] [place] [address]- 0170 Mar, [facility] [place] [facility] [address] [id number] [place] [address]- 7525 Feb, [facility] [place] [facility] [address] [id number] [place] [address]- 3277 Feb, [facility] [place] [facility] [address] [id number] [place] [address]- 1764 Feb, [facility] [place] [facility] [address] [id number] [place] [address]- 9138 Feb, [facility] [place] [facility] [address] [id number] [place] [address]- 3396 Jan, [facility] [place] [facility] [address] [id number], [place] [address]- 6121 Jan, [facility] [place] [facility] [address] [id number] [place] [address]- 7560 Dec, [facility] [place] [facility] [address] [id number] [place] 9735 Dec, [facility] [place] [facility] [address] [id number] [place] 5782 Nov, [facility] [place] [facility] [address] [id number], [place] [address]- 1089 Nov, [facility] [address] [id number] [place] [address]- 9689 Nov, [facility] [place] [facility] [address] [id number] [place] [address]- 9522 Nov, [facility] [place] [facility] [address] [id number] [place] [address]- 6472 October, [facility] [place] [facility] [address] [id number] [place] [address]- 3098 October, [facility] [place] [facility] [address] [id number] [place] [address]- 3766 October, [facility] [place] [facility] [address] [id number] [place] [address]- 2589 October, [facility] [place] [facility] [address] [id number] [place] [address]- 4836 October, [facility] [place] [facility] [address] [id number] [place] [address]- 5783 October, [facility] [place] [facility] [address] [id number] [place] [address]- 7369 October, [facility] [place] [facility] [address] [id number] [place] [address]- 1237 October, [facility] [place] [facility] [address] [id number] [place] [address]- 9589 Aug, [facility] [place] [facility] [address] [id number] [place] [address]- 1629 Aug, [facility] [place] [facility] [address] [id number] [place] [address]- 0431 Jul, [facility] [place] [facility] [address] [id number] [place] [address]- 6156 Jul, [facility] [place] [facility] [address] [id number] [place] [address]- 4573 Jul, [facility] [place] [facility] [address] [id number] [place] [address]- 9087 Jul, [facility] [place] [facility] [address] [id number] [place] [address]- 2468 Jul, [facility] [place] [facility] [address] [id number] [place] [address]- 2894 Jun, [facility] [place] [facility] [address] [id number] [place] [address]- 9689 Jun, [facility] [place] [facility] [address] [id number] [place] [address]- 2653 May, [facility] [place] [facility] [address] [id number] [place] [address]- 8512 May, [facility] [place] [facility] [address] [id number] [place] [address]- 5191 Apr, [facility] [place] [facility] [address] [id number] [place] [address]- 9502 Apr, [facility] [place] [facility] [address] [id number] [place] [address] Mar, [facility] [place] [facility] [address] [id number] [place] [address] Mar, [facility] [place] [facility] [address] [id number] [place] [address] Mar, [facility] [place] [facility] [address] [id number], [place] [address] Feb, [facility] [place] [facility] [address] [id number] [place] [address] 20 Feb, 2013 [facility] [place] [facility] [address] [id number] [place] [address] 17 Feb, 2013 [facility] [place] [facility] [address] [id number] [place] [address] 04 Feb, 2013 [facility] [place] [facility] [address] [id number] [place] [address] Feb, [facility] [address] [id number] [place] [address] Jan, [facility] [place] [facility] [address] [id number] [place] [address] Dec, [facility] [place] [facility] [address] [id number] [place] [address] Nov, [facility] [place] [facility] [address] [id number] [place] [address] October, [facility] [address] [id number] [place] [address] Sep, [facility] [place] [facility] [address] [id number] [place] [address] Aug, [facility] [place] [facility] [address] [id number] [place] [address] Aug, [facility] [place] [facility] [address] [id number] [place] [address] Aug, [facility] [address] [id number] [place] [address] May, [facility] [place] [facility] [address] [id number] [place] [address]- [address] May, [facility] [place] [facility] [address] [id number] [place] [address] May, [facility] [place] [facility] [address] [id number] [place] [address] May, [facility] [place] [facility] [address] [id number] [place] [address] May, [facility] [place] [facility] [address] [id number] [place] [address] Apr, [facility] [place] [facility] [address] [id number] [place] [address]- [address] Apr, [facility] [place] [facility] [address] [id number] [place] [address] 14 Apr, 2012 [facility] [place] [facility] [address] [id number] [place] [address] 14 Apr, 2012 [facility] [place] [facility] [address] [id number] [place] [address] 07 Apr, 2012 [facility] [place] [facility] [address] [id number] [place] [address] 07 Apr, 2012 [facility] [place] [facility] [address] [id number] [place] [address] Apr, [facility] [place] [facility] [address] [id number] [place] [address], [place] [address]- [address] Apr, [facility] [place] [facility] [address] [id number] [place] [address] Mar, [facility] [place] [facility] [address] [id number] [place] [address] Mar, [facility] [place] [facility] [address] [id number] [place] [address] Mar, [facility] [place] [facility] [address] [facility] [id number] [place] [address] Mar, [facility] [place] [facility] [address] [facility] [id number] [place] [address]- [address] Mar, [facility] [place] [facility] [address] [id number] [place] [address] Mar, [facility] [place] [facility] [address] [id number] [place] [address] Mar, [facility] [place] [facility] [address] [id number] [place] [address] 28 Feb, 2012 [facility] [place] [facility] [address] [id number] [place] [address] 24 Feb, 2012 [facility] [place] [facility] [address] [id number] [place] [address] Feb, [facility] [place] [facility] [address] [id number] [place] [address]- [address] Feb, [facility] [place] [facility] [address] [id number] [place] [address] Jan, [facility] [place] [facility] [address] [id number] [place] [address] Jan, [facility] [place] [facility] [address] [id number] [place] [address] Jan, [facility] [place] [facility] [address] [id number] [place] [address]- [address] Jan, [facility] [place] [facility] [address] [id number] [place] [address]- [address] Jan, [facility] [place] [facility] [address] [id number] [place] [address]- [address] Jan, [facility] [place] [facility] [address] [id number] [place] [address] Dec, [facility] [place] [facility] [address] [id number] [place] [address] Dec, [facility] [place] [facility] [address] [id number] [place] [address] Dec, [facility] [place] [facility] [address] [id number] [place] [address] Dec, [facility] [place] [facility] [address] [id number] [place] [address] Dec, [facility] [place] [facility] [address] [id number] [place] [address] Dec, [facility] [place] [facility] [address] [id number] [place] [address] Dec, [facility] [place] [facility] [address] [id number] [place] [address] Dec, [facility] [place] [facility] [address] [id number] [place] [address] Nov, [facility] [address] [id number] [place] [address] Nov, [facility] [place] [facility] [address] [id number] [place] [address] Nov, [facility] [place] [facility] [address] [facility] [id number] [place] [address] Nov, [facility] [place] [facility] [address] [id number] [place] [address] October, [facility] [place] [facility] [address] [id number] [place] [address] October, [facility] [place] [facility] [address] [id number] [place] [address] Sep, [facility] [place] [facility] [address] [id number] [place] [address] Sep, [facility] [place] [facility] [address] [facility] [id number] [place] [address] Aug, [facility] [place] [facility] [address] [facility] [id number] [place] [address] 16 Aug, 2011 [facility] [place] [facility] [address] [facility] [id number] [place] [address] Aug, [facility] [place] [facility] [address] [facility] [id number] [place] [address] Aug, [facility] [place] [facility] [address] [facility] [id number] [place] [address] 05 Aug, 2011 [facility] [place] [facility] [address] [id number] [place] [address] 08 Jul, 2011 [facility] [place] [facility] [address] [facility] [id number] [place] [address] 06 Jul, 2011 [facility] [place] [facility] [address] [facility] [id number] [place] [address] Jul, [facility] [place] [facility] [address] [id number] [place] [address] Jul, [facility] [address] [id number] [place] [address] Jun, [facility] [place] [facility] [address] [id number] [place] [address] Jun, [facility] [address] [id number] [place] [address] Jun, [facility] [address] [id number] [place] [address] Jun, [facility] [place] [facility] [address] [id number] [place] [address] Jun, [facility] [address] [id number] [place] [address] May, [facility] [address] [id number] [place] [address] May, [facility] [place] [facility] [address] [id number] [place] [address] May, [facility] [place] [facility] [address] [id number] [place] [address] May, [facility] [place] [facility] [address] [id number] [place] [address] May, [facility] [place] [facility] [address] [id number] [place] [address] May, [facility] [place] [facility] [address] [id number] [place] [address] Apr, [facility] [place] [facility] [address] [id number] [place] [address] Apr, [facility] [place] [facility] [address] [id number] [place] [address] Mar, [facility] [place] [facility] [address] [id number], [place] [address] Mar, [facility] [address] [id number] [address] October, [facility] [id number], [place] [address] May, [facility] [id number], [place] [address] Apr, [facility] [id number], [place] [address] Jul, [facility] [id number], [place] [address] May, [facility] [id number] [place] [address] May, [facility] [id number] [place] [address] May, [facility] [id number] [place] [address]- [address] Apr, [facility] [id number] [place] [address] Apr, [facility] [id number], [place] [address] Mar, [facility] [address] [id number] [address] Jan, [facility] [id number], [place] [address] Nov, IMMUNIZATIONS No Known Immunizations SOCIAL HISTORY Never Assessed REASON FOR VISIT Corrected Rx PLAN OF CARE VITAL SIGNS MEDICATIONS Medication Instructions Dosage Frequency Start Date End Date Duration Status Victoza 18 MG/3ML Subcutaneous Once a day 0.2 mg 24h October, Active RESULTS No Results PROCEDURES No Known procedures INSTRUCTIONS MEDICATIONS ADMINISTERED No Known Medications MEDICAL (GENERAL) HISTORY Type Description Date Medical History coronary artery disease Medical History type II diabetes Medical History hypertension Medical History chronic bronchitis Medical History gastric ulcer Medical History arthritis Medical History back pain Medical History depression Medical History echocardiogram 09/2010 moderate LVH, mild MR, EF 50-55% Medical History nuclear stress test 09/2010 EF 58% Medical History hearing loss Medical History colonoscopy 07-08-15 Medical History sleep apnea Medical History frequent lung infections Surgical History right knee arthroscopy Surgical History left knee arthroscopy Surgical History tonsillectomy Surgical History appendectomy Surgical History total hysterectomy (fibroid tumors. Calcified ovaries, painful periods) 1995 Surgical History right knee replacement 2011 Surgical History left knee replacement x2 2001,2006 Surgical History colonoscopy 07-08-15 Surgical History heart cath x 2 2014 Hospitalization History surgeries Hospitalization History pneumonia Hospitalization History chest pain
--- OUTSIDE RECORDS SUMMARY | 2017-11-01 08:10 | XMS REPORT ---
Author Author BOOGIE ARAUJO [facility] eClinicalWorks Address Unknown Phone Unavailable Care Team Providers Care Trust Evaluation Supervisor Name Role Phone BOOGIE ARAUJO CP Unavailable [...] Start Date End Date Status Dosage [facility] [id number] 7.5-325 MG Orally 3 times a day May 06, 2015 1 tablet as needed Results No Known Results Summary Purpose eClinicalWorks Submission
--- OUTSIDE RECORDS SUMMARY | 2017-11-01 08:10 | XMS REPORT ---
Author Author BOOGIE ARAUJO Organization [facility] Address [address] [place] [address] Care Team Providers Care Supervisor Hot Dip Tinning Name Role Phone BOOGIE ARAUJO Unavailable PROBLEMS Type Condition ICD9-CM Code ODJ33-ZS Code Onset Dates Condition Status SNOMED Code Problem History of abnormal cervical Pap smear Z87.898 Active 400651331 Problem Thoracogenic scoliosis of thoracolumbar region M41.35 Active 47656954 Problem Uncontrolled type 2 diabetes mellitus without complication, without long-term current use of insulin E11.65 Active 429997874 Problem 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, controlled E11.9 Active 98404554 Problem Thyroid nodule E04.1 Active 690838878 Problem History of colon polyps Z86.010 Active 439357861 Problem Other iron deficiency anemia D50.8 Active 44741916 Problem Iron deficiency anemia due to chronic blood loss D50.0 Active 182711240 Problem Screening breast examination Z12.39 Active 737814222 Problem Allergic rhinitis, unspecified allergic rhinitis trigger, unspecified rhinitis seasonality J30.9 Active 56521335 Problem Controlled type 2 diabetes mellitus without complication, without long -term current use of insulin E11.9 Active 000586240 Problem Other chronic pain G89.29 Active 19983188 ALLERGIES No Information ENCOUNTERS Encounter Location Date Diagnosis [place] [id number] [place] [address] 59803- 7395 Sep, 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, controlled E11.9 [facility] [id number] [address] 7786 Sep, [facility] [id number] [place] [address] 97062- 5811 Sep, 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, controlled E11.9 [facility] [id number] [address] 4246 Sep, Other chronic pain G89.29 [place] [address] [address] 0812 Sep, Other iron deficiency anemia D50.8 [facility] [id number] [place] [address] 89673- 8771 Sep, Other iron deficiency anemia D50.8 [facility] [id number] [place] [address] 82109- 1741 Sep, Iron deficiency anemia due to chronic blood loss D50.0 and Dysuria R30.0 [place] [id number] [place] [address] 77601- 6465 Sep, Dysuria R30.0 [place] [id number] [place] [address] 44593- 2885 Sep, Iron deficiency anemia due to chronic blood loss D50.0 [place] [id number] [place] [address] 15690- 8369 Sep, [place] [id number] [place] [address] 55723- 2966 Sep, Controlled type 2 diabetes mellitus without complication, without long-term current use of insulin E11.9 ; Leg cramps R25.2 ; Low back pain M54.5 and Other chronic pain G89.29 [place] [address], [place] [address]- 2233 Sep, Controlled type 2 diabetes mellitus without complication, without long-term current use of insulin E11.9 ; Low back pain M54.5 ; Other chronic pain G89.29 and Leg cramps R25.2 [place] [id number] [place] [address] 98308- 6517 Aug, Other chronic pain G89.29 [place] [id number] [place] [address] 22443- 7447 Jul, Other chronic pain G89.29 [place] [id number] [place] [address] 35903- 3035 16 Jul, 2017 Pneumonia of left lower lobe due to infectious organism J18.1 [facility] [id number] [place] [address] 55164 -9264 12 Jul, 2017 Dysuria R30.0 ; Cough in adult patient R05 and Pneumonia of left lower lobe due to infectious organism J18.1 [facility] [address] [place] [address] 46818- 7918 08 Jul, 2017 [facility] [id number] [place] [address] 66021- 0520 Jun, Other chronic pain G89.29 [facility] [id number] [place] [address] 66131- 8025 Jun, [facility] [id number] [place] [address] 04746- 4298 Jun, 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, controlled E11.9 ; Back muscle spasm M62.830 and Other chronic pain G89.29 [facility] [id number] [place] [address] 33442- 6059 Jun, Screening breast examination Z12.31 [facility] [id number] [place] [address] 93286- 3908 May, Other chronic pain G89.29 [facility] [id number] [place] [address] 13509- 7292 May, [facility] [id number] [place] [address] 90836- 0509 May, UTI (urinary tract infection) N39.0 [facility] [id number] [place] [address] 34125- 3723 May, Dysuria R30.0 [facility] [id number] [place] [address] 31848- 6528 May, Dysuria R30.0 [facility] [id number] [place] [address] 47828- 4440 May, 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, controlled E11.9 ; 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 and Other chronic pain G89.29 [facility] [id number] [place] [address] 82664- 9497 Apr, 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, controlled E11.9 [facility] [id number] [place] [address] 05776 -8155 Mar, Paronychia of great toe, right L03.031 and Dysuria R30.0 [facility] [id number] [place] [address] 00805- 0751 Mar, 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, controlled E11.9 [facility] [id number] [place] [address] 69719- 8256 28 Feb, 2017 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, controlled E11.9 [facility] [id number] [place] [address] [phone] 13 Feb, 2017 Dental examination Z01.20 [facility] [id number] [place] [address] 32055- 2799 11 Feb, 2017 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, controlled E11.9 [facility] [id number] [place] [address] 26707- 5753 07 Feb, 2017 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, controlled E11.9 [facility] [id number] [place] [address] 06513- 8588 Jan, 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, controlled E11.9 [facility] [id number] [place] [address] 58917- 3196 Dec, 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, controlled E11.9 [facility] [id number] [place] [address] 83020- 9230 Dec, 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, controlled E11.9 [facility] [id number] [place] [address] 66901- 6147 Nov, 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, controlled E11.9 [facility] [address] [place] [address]- 8227 Nov, 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, controlled E11.9 [facility] [id number] [place] [address] 90105- 7913 Nov, 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, controlled E11.9 [facility] [id number] [place] [address] 45821- 9780 Nov, 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, controlled E11.9 [facility] [id number] [place] [address] 68263- 8364 Nov, 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, controlled E11.9 [facility] [id number] [place] [address] 67662- 8355 Nov, 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, controlled E11.9 [place] [id number] [place] [address] 65714- 6562 October, Pain in unspecified shoulder M25.519 [place] [id number] [place] [address] 72768- 1274 October, 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, controlled E11.9 and Cellulitis of right lower extremity L03.115 [place] [id number] [place] [address] 01185- 6431 October, Pain in unspecified shoulder M25.519 [place] [id number] [place] [address] 03292- 8339 Sep, 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, controlled E11.9 [facility] [id number] [place] [address] 60310- 5424 Aug, Pain in unspecified shoulder M25.519 [facility] [id number] [place] [address] 63431- 6349 Aug, 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, controlled E11.9 [facility] [id number] [place] [address] 94126- 1248 Aug, 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, controlled E11.9 ; Dark urine R82.99 and Localized edema R60.0 [facility] [id number] [place] [address] 32523- 1320 07 Aug, 2016 Pain in unspecified shoulder M25.519 [place] [id number] [place] [address] 44360- 5511 07 Jul, 2016 Pain in unspecified shoulder M25.519 [place] [id number] [place] [address] 88759- 2668 06 Jul, 2016 [place] [address] 05028- 3055 02 Jul, 2016 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, controlled E11.9 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 [place] [id number] [place] [address] 09362- 2511 Jun, 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, controlled E11.9 [place] [id number] [place] [address] 73003- 2877 Jun, Screening breast examination Z12.39 and Allergic rhinitis, unspecified allergic rhinitis trigger, unspecified rhinitis seasonality J30.9 [place] [id number] [place] [address] 75888- 7147 Jun, Pain in unspecified shoulder M25.519 [place] [id number] [place] [address] 68930- 7260 May, [place] [id number] [place] [address] 70628- 4653 May, Pain in unspecified shoulder M25.519 [place] [id number] [place] [address] 96903- 5911 05 May, 2016 Thoracogenic scoliosis of thoracolumbar region M41.35 ; Low back pain M54.5 ; Other chronic pain G89.29 and Uncontrolled type 2 diabetes mellitus without complication, without long-term current use of insulin E11.65 [place] [id number] [place] [address] 86197- 8539 Apr, [place] [address] [place] [address]- 1894 Apr, [facility] [address] [place] [address] 07284- 1649 Apr, History of type 2 diabetes mellitus Z86.39 and Encounter for immunization Z23 [facility] [id number] [place] [address] 09706- 2155 Mar, [facility] [id number] [place] [address] 03809- 1714 Mar, [facility] [id number] [place] [address] 70915- 4546 Feb, [facility] [id number] [place] [address] 42689- 4890 Jan, [facility] [id number] [place] [address] 99894- 7431 Jan, [facility] [id number] [place] [address] 54186- 1628 Dec, [facility] [id number] [place] [address] 72351 -2879 Dec, Sore throat J02.9 and Allergic rhinitis, unspecified allergic rhinitis type J30.9 [facility] [id number] [address]- 8532 Dec, 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, controlled E11.9 [facility] [id number] [place] [address] 54486- 0236 Nov, [facility] [id number] [place] [address] 63466- 2986 Nov, [facility] [id number] [place] [address] 06780- 4366 October, [facility] [id number] [place] [address] 71775- 3145 October, [facility] [id number] [place] [address] 89672- 7360 Sep, [place] [address] [address]- 4626 Aug, [place] [address] [place] [address] 52703- 1586 Aug, 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, controlled E11.9 ; UTI (urinary tract infection) N39.0 and Bacterial infection A49.9 [place] [id number] [place] [address] 64816- 9766 Jul, [place] [id number] [place] [address] 41804- 2443 Jul, [place] [id number] [place] [address] 821592- 1493 Jul, Pharyngitis J02.9 and Seborrheic keratoses L82.1 [place] [id number] [place] [address] 961121- 4376 Jun, [place] [address] [place] [address] 75558- 3864 May, [place] [id number] [place] [address] [id number]- 0585 May, Skin tags, multiple acquired L91.8 ; Seborrheic keratoses L82.1 and 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, controlled E11.9 [place] [address] [address]- 1375 May, Well woman exam Z01.419 ; Papanicolaou [...] Other hemorrhoids K64.8 and Other fatigue R53.83 [facility] [id number] [place] [address] 26368- 6311 May, [facility] [address] 44054- 1986 May, [facility] [id number] [place] [address] 76839- 7862 Apr, Seborrheic keratosis L82.1 and 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, controlled E11.9 [facility] [address] 19649- 8943 Apr, Seborrheic keratosis L82.1 and 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, controlled E11.9 [place] [address] 51289- 9889 Mar, [place] [address] 59858- 0374 Mar, [place] [address] 59532- 9922 Mar, Encounter for immunization Z23 ; Nevoid hyperpigmentation L81.9 ; Skin tags, multiple acquired L91.8 and Seborrheic keratoses L82.1 [place] [id number] [place] [address] 89366- 4426 Feb, [facility] [id number] [place] [address] 77844- 2745 Feb, [facility] [address] 08116- 4613 Feb, [facility] [id number] [place] [address] 84748- 3944 Feb, Diabetes 250.00 ; Tinea corporis 110.5 and Shoulder pain, left 719.41 [facility] [id number] [place] [address] 23517- 1891 Jan, [facility] [address] 36624- 2546 Dec, [facility] [address] [address]- 7376 Dec, [facility] [address], [place] [address]- 1676 Dec, Seborrheic keratoses 702.19 ; Diabetes 250.00 and Hypoglycemia 251.2 [facility] [address] [place] [address] 46131- 8766 Nov, [facility] [address] [place] [address] 74835- 2775 Nov, Abnormal mammogram 793.80 [facility] [id number] [place] [address] 14757- 8523 October, Diabetes 250.00 and Colon polyp 211.3 [facility] [id number] [place] [address] 32825- 0443 Sep, [facility] [address], [place] [address]- 1924 Sep, [facility] [address] [address]- 9571 Sep, [facility] [address], [place] [address]- 3056 Aug, [facility] [address], [place] [address]- 1696 Aug, [facility] [address], [place] [address]- 5776 Jul, [facility] [address], [place] [address]- 5256 Jul, [facility] [address], [place] [address]- 5476 Jun, [facility] [address] [address]- 0506 Jun, [facility] [place] [facility] [address] [id number] [place] [address]- 1906 Jun, [facility] [place] [facility] [address] [id number] [place] [address]- 7959 Jun, [facility] [place] [facility] [address] [id number] [place] [address]- 0044 Jun, [facility] [place] [facility] [address] [id number] [place] [address]- 5728 Jun, [facility] [place] [facility] [address] [id number] [place] [address]- 0175 May, [facility] [place] [facility] [address] [id number] [place] [address]- 5795 May, [facility] [place] [facility] [address] [id number] [place] [address]- 9397 Apr, [facility] [place] [facility] [address] [id number] [place] [address]- 4104 Apr, [facility] [place] [facility] [address] [id number] [place] [address]- 9273 Apr, [facility] [place] [facility] [address] [id number] [place] [address]- 7464 Apr, [facility] [place] [facility] [address] [id number] [place] [address]- 3356 Apr, [facility] [place] [facility] [address] [id number] [place] [address]- 2487 Apr, [facility] [place] [facility] [address] [id number] [place] [address]- 5056 Apr, [facility] [place] [facility] [address] [id number] [place] [address]- 5680 Apr, [facility] [place] [facility] [address] [id number] [place] [address]- 1482 Apr, [facility] [place] [facility] [address] [id number] [place] [address]- 8677 Apr, [facility] [place] [facility] [address] [id number] [place] [address]- 3235 Mar, [facility] [place] [facility] [address] [id number] [place] [address]- 7595 Mar, [facility] [place] [facility] [address] [id number] [place] [address]- 8093 Mar, [facility] [place] [facility] [address] [id number] [place] [address]- 3305 Mar, [facility] [place] [facility] [address] [id number] [place] [address]- 2639 Mar, [facility] [place] [facility] [address] [id number] [place] [address]- 3097 Mar, [facility] [place] [facility] [address] [id number] [place] [address]- 3121 Mar, [facility] [place] [facility] [address] [id number] [place] [address]- 0910 Mar, [facility] [place] [facility] [address] [id number] [place] [address]- 2520 Feb, [facility] [place] [facility] [address] [id number] [place] [address]- 7463 Feb, [facility] [place] [facility] [address] [id number] [place] [address]- 2783 Feb, [facility] [place] [facility] [address] [id number] [place] [address]- 1367 Feb, [facility] [place] [facility] [address] [id number] [place] [address]- 2735 Jan, [facility] [place] [facility] [address] [id number] [place] [address]- 7866 Jan, [facility] [place] [facility] [address] [id number] [place] 1446 Dec, [facility] [place] [facility] [address] [id number] [place] [address]- 3732 Dec, [facility] [address] [id number] [place] [address]- 4067 Nov, [facility] [place] [facility] [address] [id number] [place] [address]- 9636 Nov, [facility] [address] [id number] [place] [address]- 2971 Nov, [facility] [address] [id number] [place] [address]- 4894 Nov, [facility] [address] [id number] [place] [address]- 1816 October, [facility] [address] [id number] [place] 2844 October, [facility] [address] [id number] [place] [address]- 2267 October, [facility] [address] [id number] [place] [address]- 3859 October, [facility] [address] [id number] [place] [address]- 2474 October, [facility] [address] [id number] [place] [address]- 2958 October, [facility] [place] [facility] [address] [id number] [place] [address]- 3022 October, [facility] [address] [id number] [place] [address]- 2210 October, [facility] [place] [facility] [address] [id number] [place] [address]- 3764 Aug, [facility] [place] [facility] [address] [id number] [place] [address]- 8866 Aug, [facility] [place] [facility] [address] [id number] [place] [address]- 1448 Jul, [facility] [place] [facility] [address] [id number] [place] [address]- 0395 Jul, [facility] [place] [facility] [address] [id number] [place] [address] Jul, [facility] [place] [facility] [address] [id number] [place] [address] Jul, [facility] [place] [facility] [address] [id number] [place] [address] Jul, [facility] [place] [facility] [address] [id number] [place] [address] Jun, [facility] [place] [facility] [address] [id number] [place] [address] Jun, [facility] [place] [facility] [address] [id number] [place] [address] May, [facility] [place] [facility] [address] [id number], [place] [address] May, [facility] [place] [facility] [address] [id number] [place] [address] Apr, [facility] [place] [facility] [address] [facility] [id number] [place] [address] Apr, [facility] [place] [facility] [address] [id number], [place] [address] Mar, [facility] [place] [facility] [address] [id number], [place] [address] Mar, [facility] [place] [facility] [address] [id number] [place] [address] Mar, [facility] [place] [facility] [address] [id number], [place] [address] Feb, [facility] [place] [facility] [address] [id number] [place] [address] Feb, [facility] [place] [facility] [address] [id number] [place] [address] 17 Feb, 2013 [facility] [address] [id number] [place] [address] 04 Feb, 2013 [facility] [address] [id number] [place] [address] 04 Feb, 2013 [facility] [address] [id number] [place] [address] Jan, [facility] [place] [facility] [address] [id number] [place] [address] Dec, [facility] [address] [id number] [place] [address] Nov, [facility] [address] [id number] [place] [address] October, [facility] [address] [id number] [place] [address] Sep, [facility] [address] [id number] [place] [address] Aug, [facility] [address] [id number] [place] [address] Aug, [facility] [address] [id number] [place] [address] Aug, [facility] [address] [id number] [place] [address] May, [facility] [address] [id number] [place] [address] May, [facility] [place] [facility] [address] [address] [id number] [place] [address] May, [facility] [address] [id number] [place] [address] May, [facility] [address] [id number] [place] [address] May, [facility] [place] [facility] [address] [id number] [place] [address] Apr, [facility] [place] [facility] [address] [id number] [place] [address] 16 Apr, 2012 [facility] [place] [facility] [address] [id number] [place] [address] Apr, [facility] [place] [facility] [address] [id number] [place] [address] Apr, [facility] [place] [facility] [address] [id number] [place] [address] Apr, [facility] [place] [facility] [address] [id number] [place] [address] Apr, [facility] [place] [facility] [address] [id number] [place] [address] Apr, [facility] [place] [facility] [address] [id number] [place] [address] Apr, [facility] [place] [facility] [address] [id number] [place] [address] Mar, [facility] [place] [facility] [address] [id number] [place] [address] Mar, [facility] [place] [facility] [address] [id number] [place] [address] Mar, [facility] [place] [facility] [address] [id number] [place] [address] Mar, [facility] [place] [facility] [address] [id number] [place] [address] Mar, [facility] [place] [facility] [address] [id number] [place] [address] Mar, [facility] [place] [facility] [address] [id number] [place] [address] 134[address] Mar, [facility] [place] [facility] [address] [id number] [place] [address] 28 Feb, 2012 [facility] [place] [facility] [address] [id number] [place] [address]6 24 Feb, 2012 [facility] [place] [facility] [address] [id number] [place] [address] 20 Feb, 2012 [facility] [place] [facility] [address] [id number] [place] [address]46 Feb, [facility] [place] [facility] [address] [id number] [place] [address] 28 Jan, 2012 [facility] [place] [facility] [address] [id number] [place] [address] Jan, [facility] [place] [facility] [address] [id number] [place] [address] 6[address] Jan, [facility] [place] [facility] [address] [id number] [place] [address]65 15 Jan, 2012 [facility] [place] [facility] [address] [id number] [place] [address]84 Jan, [facility] [place] [facility] [address] [id number] [place] [address] Jan, [facility] [place] [facility] [address] [id number] [place] [address] Dec, [facility] [place] [facility] [address] [id number] [place] [address] Dec, [facility] [place] [facility] [address] [id number] [place] [address]347 Dec, [facility] [place] [facility] [address] [id number] [place] [address]656 Dec, [facility] [place] [facility] [address] [id number] [place] [address] Dec, [facility] [place] [facility] [address] [id number] [place] [address]304 Dec, [facility] [place] [facility] [address] [id number] [place] [address] 17 Dec, 2011 [facility] [address] [id number] [place] [address] Dec, [facility] [place] [facility] [address] [id number] [place] [address] 2546 Nov, [facility] [address] [id number] [place] [address] 2546 Nov, [facility] [address] [id number] [place] [address] Nov, [facility] [address] [id number] [place] [address] Nov, [facility] [address] [id number] [place] [address] 1206 October, [facility] [address] [id number] [place] [address] October, [facility] [address] [id number] [place] [address] Sep, [facility] [address] [id number] [place] [address] 9766 Sep, [facility] [address] [id number] [place] [address] Aug, [facility] [place] [facility] [address] [id number] [place] [address] 16 Aug, 2011 [facility] [address] [id number] [place] [address]46 Aug, [facility] [place] [facility] [address] [id number] [place] [address]46 Aug, [facility] [place] [facility] [address] [id number] [place] [address]- [address]46 05 Aug, 2011 [facility] [address] [id number] [place] [address] 08 Jul, 2011 [facility] [address] [id number] [place] [address]- [address]46 06 Jul, 2011 [facility] [place] [facility] [address] [id number] [place] [address] Jul, [facility] [place] [facility] [address] [id number] [place] [address]112 Jul, [facility] [place] [facility] [address] [id number] [place] [address]- [address]286 Jun, [facility] [address] [id number] [place] [address] 3602 Jun, [facility] [address] [id number] [place] [address]- [address]245 Jun, [facility] [address] [id number] [place] [address]- [address]377 Jun, [facility] [place] [facility] [address] [id number] [place] [address] 9313 Jun, [facility] [place] [facility] [address] [id number] [place] [address]- 6509 May, [facility] [place] [facility] [address] [id number] [place] [address]- 9047 May, [facility] [place] [facility] [address] [id number], [place] [address] May, [facility] [place] [facility] [address] [id number], [place] [address]46 May, [facility] [place] [facility] [address] [id number] [place] [address]015 May, [facility] [place] [facility] [address] [id number], [place] [address] May, [facility] [place] [facility] [address] [id number] [place] [address]- 4268 Apr, [facility] [place] [facility] [address] [facility] [id number], [place] [address]46 09 Apr, 2011 [facility] [address] [facility] [id number], [place] [address] 14 Mar, 2011 [facility] [address] [facility] [id number], [place] [address] 2546 Mar, [facility] [address] [facility] [id number], [place] [address] 2546 October, [facility] [address] [facility] [id number], [place] [address]- [address]46 May, [facility] [address] [facility] [id number], [place] [address] Apr, [facility] [address] [facility] [id number], [place] [address]- 2546 Jul, [facility] [id number], [place] [address] May, [facility] [id number], [place] [address] May, [facility] [id number], [place] [address]16 May, [facility] [id number], [place] [address] Apr, [facility] [address] [id number], [place] [address] 2546 Apr, [facility] [address] [id number], [place] [address] 2546 Mar, [facility] [address] [id number], [place] [address] 2546 Jan, [facility] [address] [id number], [place] [address] 2546 Nov, IMMUNIZATIONS No Known Immunizations SOCIAL HISTORY Never Assessed REASON FOR VISIT [place] refill PLAN OF CARE VITAL SIGNS MEDICATIONS Medication Instructions Dosage Frequency Start Date End Date Duration Status [place] 7.5-325 MG Orally 4 times a day 1 tablet as needed 6h Feb, 28 days Active RESULTS No Results PROCEDURES [...]
--- OUTSIDE RECORDS SUMMARY | 2017-11-01 08:10 | XMS REPORT ---
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 Name Role Phone BOOGIE ARAUJO Unavailable PROBLEMS Type Condition ICD9-CM Code MAQ95-SL Code Onset Dates Condition Status SNOMED Code Problem 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, controlled E11.9 Active 17616224 Problem History of abnormal cervical Pap smear Z87.898 Active 135126187 Problem History of colon polyps Z86.010 Active 961140458 Problem Other chronic pain G89.29 Active 05604079 Problem Screening breast examination Z12.39 Active 471151989 Problem Uncontrolled type 2 diabetes mellitus without complication, without long-term current use of insulin E11.65 Active 679774277 Problem Thyroid nodule E04.1 Active 647015931 Problem Allergic rhinitis, unspecified allergic rhinitis trigger, unspecified rhinitis seasonality J30.9 Active 00484451 Problem Thoracogenic scoliosis of thoracolumbar region M41.35 Active 84541748 ALLERGIES No Information ENCOUNTERS Encounter Location Date Diagnosis [facility] [id number] [place] [address] 43090- 1007 02 Sep, 2017 [facility] [id number] [place] [address] 74465- 4188 Aug, Other chronic pain G89.29 [facility] [id number] [place] [address] 28693- 2438 Jul, Other chronic pain G89.29 [facility] [address] 82467- 5007 16 Jul, 2017 Pneumonia of left lower lobe due to infectious organism J18.1 [facility] [id number] [place] [address] 89008 -9834 12 Jul, 2017 Dysuria R30.0 ; Cough in adult patient R05 and Pneumonia of left lower lobe due to infectious organism J18.1 [facility] [address] [address] 9[address] Jul, [facility] [id number] [place] [address] 21172- 2866 Jun, Other chronic pain G89.29 [facility] [id number] [place] [address] 34672- 1351 Jun, [facility] [id number] [place] [address] 08439- 1707 Jun, 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, controlled E11.9 ; Back muscle spasm M62.830 and Other chronic pain G89.29 [facility] [id number] [place] [address] 72111- 0999 Jun, Screening breast examination Z12.31 [facility] [id number] [place] [address] 08748- 9575 May, Other chronic pain G89.29 [facility] [address] [address] 8766 May, [facility] [id number] [place] [address] 35216- 8252 May, UTI (urinary tract infection) N39.0 [facility] [address] [address]- 2865 May, Dysuria R30.0 [facility] [id number] [place] [address] 64912- 4403 May, Dysuria R30.0 [facility] [id number] [place] [address] 17786- 2581 04 May, 2017 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, controlled E11.9 ; 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 Z79.891 and Other chronic pain G89.29 [facility] [address], [place] [address]- 2983 Apr, 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, controlled E11.9 [facility] [id number] [address] 30 Mar, 2017 Paronychia of great toe, right L03.031 and Dysuria R30.0 [facility] [address] [address]- 2375 09 Mar, 2017 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, controlled E11.9 [facility] [id number] [place] [address] 03333- 4968 28 Feb, 2017 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, controlled E11.9 [facility] [id number] [place] [address] [id number] 13 Feb, 2017 Dental examination Z01.20 [facility] [id number] [place] [address] 77411- 7055 11 Feb, 2017 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, controlled E11.9 [facility] [id number] [place] [address] 34023- 6817 07 Feb, 2017 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, controlled E11.9 [facility] [id number] [place] [address] 37100- 6324 Jan, 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, controlled E11.9 [facility] [id number] [place] [address] 02921- 0137 Dec, 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, controlled E11.9 [facility] [id number] [place] [address] 53643- 9682 Dec, 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, controlled E11.9 [facility] [id number] [place] [address] 22140- 1781 Nov, 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, controlled E11.9 [facility] [id number] [place] [address] 87189- 1005 Nov, 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, controlled E11.9 [facility] [id number] [place] [address] 79601- 0071 Nov, 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, controlled E11.9 [facility] [id number] [place] [address] 06395- 7498 19 Nov, 2016 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, controlled E11.9 [facility] [id number] [place] [address] 60727- 8610 14 Nov, 2016 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, controlled E11.9 [facility] [id number] [place] [address] 88057- 0369 Nov, 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, controlled E11.9 [facility] [id number] [place] [address] 36063- 6940 October, Pain in unspecified shoulder M25.519 [facility] [id number] [place] [address] 23760- 8989 October, 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, controlled E11.9 and Cellulitis of right lower extremity L03.115 [facility] [id number] [place] [address] 71589- 8601 October, Pain in unspecified shoulder M25.519 [facility] [id number] [place] [address] 39484- 1435 Sep, 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, controlled E11.9 [facility] [id number] [place] [address] 64174- 8225 Aug, Pain in unspecified shoulder M25.519 [facility] [id number] [place] [address] 10211- 3321 Aug, 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, controlled E11.9 [facility] [id number] [place] [address] 49259- 8372 Aug, 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, controlled E11.9 ; Dark urine R82.99 and Localized edema R60.0 [facility] [id number] [place] [address] 06164- 4229 Aug, Pain in unspecified shoulder M25.519 [facility] [id number] [place] [address] 17134- 0475 Jul, Pain in unspecified shoulder M25.519 [facility] [id number] [place] [address] 11215- 7097 06 Jul, 2016 [facility] [id number] [place] [address] 55847- 1028 02 Jul, 2016 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, 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 [facility] [id number] [place] [address] 44566- 3668 Jun, 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, controlled E11.9 [facility] [id number] [place] [address] 41510- 7502 18 Jun, 2016 Screening breast examination Z12.39 and Allergic rhinitis, unspecified allergic rhinitis trigger, unspecified rhinitis seasonality J30.9 [facility] [id number] [place] [address] 44137- 9053 10 Jun, 2016 Pain in unspecified shoulder M25.519 [facility] [address] 76812- 9210 May, [facility] [id number] [place] [address] 01024- 4323 May, Pain in unspecified shoulder M25.519 [facility] [id number] [place] [address] 28170- 0498 05 May, 2016 Thoracogenic scoliosis of thoracolumbar region M41.35 ; Low back pain M54.5 ; Other chronic pain G89.29 and Uncontrolled type 2 diabetes mellitus without complication, without long-term current use of insulin E11.65 [facility] [id number] [place] [address] 32936- 8752 Apr, [facility] [address] 32111- 2164 15 Apr, 2016 [facility] [id number] [place] [address] 67059- 5222 04 Apr, 2016 History of type 2 diabetes mellitus Z86.39 and Encounter for immunization Z23 [facility] [address] [address]- 5985 Mar, [facility] [id number] [place] [address], [place] [address]- 3904 Mar, [facility] [address] [place] [address]- 9527 Feb, [facility] [id number] [place] [address], [place] [address]- 9631 Jan, [facility] [id number] [place] [address], [place] [address]- 4264 Jan, [facility] [id number] [place] [address], [place] [address]- 1833 Dec, [facility] [address] [address] -1061 Dec, Sore throat J02.9 and Allergic rhinitis, unspecified allergic rhinitis type J30.9 [facility] [address] [address]- 7299 Dec, 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, controlled E11.9 [facility] [id number] [place] [address], [place] [address]- 5398 Nov, [facility] [address] [address]- 4095 Nov, [facility] [address], [place] [address]- 1025 October, [facility] [address] [address]- 9089 October, [facility] [id number] [place] [address], [place]- 6262 Sep, [facility] [address] [address]- 5967 Aug, [facility] [id number] [place] [address] 928826- 0102 Aug, 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, controlled E11.9 ; UTI (urinary tract infection) N39.0 and Bacterial infection A49.9 [facility] [id number] [place] [address] 91437- 0495 Jul, [facility] [id number] [place] [address] 26671- 4550 Jul, [facility] [address] 37685- 2485 Jul, Pharyngitis J02.9 and Seborrheic keratoses L82.1 [facility] [id number] [place] [address] 01328- 5058 Jun, [facility] [id number] [place] [address] 29015- 2855 May, [facility] [address] 72561- 1002 May, Skin tags, multiple acquired L91.8 ; Seborrheic keratoses L82.1 and 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, controlled E11.9 [facility] [id number] [place] [address] 55639- 4584 May, Well woman exam Z01.419 ; Papanicolaou [...] Other hemorrhoids K64.8 and Other fatigue R53.83 [facility] [id number] [place] [address] 72487- 7872 May, [facility] [id number] [place] [address] 90909- 2878 May, [facility] [id number] [place] [address] 56601- 6174 Apr, Seborrheic keratosis L82.1 and 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, controlled E11.9 [facility] [id number] [place] [address] 56497- 3607 Apr, Seborrheic keratosis L82.1 and 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, controlled E11.9 [facility] [id number] [place] [address] 53408- 3609 Mar, [facility] [id number] [place] [address] 08843- 3616 Mar, [facility] [id number] [place] [address] 02348- 5122 Mar, Encounter for immunization Z23 ; Nevoid hyperpigmentation L81.9 ; Skin tags, multiple acquired L91.8 and Seborrheic keratoses L82.1 [facility] [id number] [place] [address] 98278- 7576 Feb, [facility] [id number] [place] [address] 14857- 4310 Feb, [facility] [id number] [place] [address] 16712- 3696 Feb, [facility] [id number] [place] [address] 48027- 1686 Feb, Diabetes 250.00 ; Tinea corporis 110.5 and Shoulder pain, left 719.41 [facility] [id number] [place] [address] 67685- 7230 Jan, [facility] [address] 01715- 8585 Dec, [facility] [id number] [place] [address] 98486- 4088 Dec, [facility] [id number] [place] [address] 78534- 9159 Dec, Seborrheic keratoses 702.19 ; Diabetes 250.00 and Hypoglycemia 251.2 [facility] [address] 6585 Nov, [facility] [id number] [address]- 6689 Nov, Abnormal mammogram 793.80 [facility] [id number] [place] [address] 98490- 9622 October, Diabetes 250.00 and Colon polyp 211.3 [facility] [address] [address]- 7795 Sep, [facility] [id number] [place] [address] 98916- 9663 Sep, [facility] [address] [address]- 7579 Sep, [facility] [address] [address]- 3105 Aug, [facility] [address] [address]- 9709 Aug, [facility] [address] [address]- 1829 Jul, [facility] [address] [address]- 8243 Jul, [facility] [address] [address]- 4549 Jun, [facility] [address] [address]- 9726 Jun, [facility] [address], [place] [address]- 2566 Jun, [facility] [id number] [address]- 2136 Jun, [facility] [id number] [address]- 2982 Jun, [facility] [address] [id number] [place] [address]- 1676 Jun, [facility] [place] [facility] [address] [id number] [place] [address]- 3321 May, [facility] [place] [facility] [address] [id number] [place] [address]- 2822 May, [facility] [place] [facility] [address] [id number] [place] [address]- 9717 Apr, [facility] [place] [facility] [address] [id number] [place] [address]- 6247 Apr, [facility] [place] [facility] [address] [id number] [place] [address]- 6575 Apr, [facility] [place] [facility] [address] [id number] [place] [address]- 7363 Apr, [facility] [place] [facility] [address] [id number] [place] [address]- 9360 Apr, [facility] [place] [facility] [address] [id number] [place] [address]- 8181 Apr, [facility] [place] [facility] [address] [id number] [place] [address]- 2374 Apr, [facility] [place] [facility] [address] [id number] [place] [address]- 0494 Apr, [facility] [place] [facility] [address] [id number] [place] [address]- 4398 Apr, [facility] [place] [facility] [address] [id number] [place] [address]- 8670 Apr, [facility] [place] [facility] [address] [id number] [place] [address]- 7505 Mar, [facility] [place] [facility] [address] [id number] [place] [address]- 1095 Mar, [facility] [place] [facility] [address] [id number] [place] [address]- 7929 Mar, [facility] [place] [facility] [address] [id number] [place] [address]- 1591 Mar, [facility] [place] [facility] [address] [id number] [place] [address]- 5392 Mar, [facility] [place] [facility] [address] [id number] [place] [address]- 2462 Mar, [facility] [place] [facility] [address] [id number] [place] [address]- 8047 Mar, [facility] [place] [facility] [address] [id number] [place] [address]- 4108 Mar, [facility] [place] [facility] [address] [id number] [place] [address]- 5024 Feb, [facility] [place] [facility] [address] [id number] [place] [address]- 5428 Feb, [facility] [place] [facility] [address] [id number] [place] [address]- 0406 Feb, [facility] [place] [facility] [address] [id number] [place] [address]- 2844 Feb, [facility] [place] [facility] [address] [id number] [place] [address]- 7880 Jan, [facility] [place] [facility] [address] [id number] [address]- 5731 Jan, [facility] [place] [facility] [address] [id number] [place] [address]- 6099 Dec, [facility] [place] [facility] [address] [id number] [place] 8742 Dec, [facility] [place] [facility] [address] [id number] [place] 7625 Nov, [facility] [place] [facility] [address] [id number] [address]- 9241 Nov, [facility] [address] [id number] [place] [address]- 8406 Nov, [facility] [place] [facility] [address] [id number] [place] [address]- 1323 Nov, [facility] [place] [facility] [address] [id number] [place] [address]- 4527 October, [facility] [place] [facility] [address] [id number] [place] [address]- 2338 October, [facility] [place] [facility] [address] [id number] [place] [address]- 8767 October, [facility] [place] [facility] [address] [id number] [place] [address]- 9311 October, [facility] [place] [facility] [address] [id number] [place] [address]- 9026 October, [facility] [place] [facility] [address] [id number] [place] [address]- 7605 October, [facility] [place] [facility] [address] [id number] [place] [address]- 6068 October, [facility] [place] [facility] [address] [id number] [place] [address]- 7354 October, [facility] [place] [facility] [address] [id number] [place] [address]- 6106 Aug, [facility] [place] [facility] [address] [id number] [place] [address]- 6082 Aug, [facility] [place] [facility] [address] [id number] [place] [address]- 1945 Jul, [facility] [place] [facility] [address] [id number] [place] [address]- 3585 Jul, [facility] [place] [facility] [address] [id number] [place] [address]- 0647 Jul, [facility] [place] [facility] [address] [id number] [place] [address]- 3620 Jul, [facility] [place] [facility] [address] [id number] [place] [address]- 3443 Jul, [facility] [place] [facility] [address] [id number] [place] [address]- 5028 Jun, [facility] [place] [facility] [address] [id number] [place] [address]- 8808 Jun, [facility] [place] [facility] [address] [id number] [place] [address] May, [facility] [place] [facility] [address] [id number] [place] [address] May, [facility] [place] [facility] [address] [id number] [place] [address] Apr, [facility] [place] [facility] [address] [id number] [place] [address] Apr, [facility] [place] [facility] [address] [id number] [place] [address] Mar, [facility] [place] [facility] [address] [id number] [place] [address] Mar, [facility] [place] [facility] [address] [id number] [place] [address] Mar, [facility] [place] [facility] [address] [id number] [address] Feb, [facility] [place] [facility] [address] [id number] [place] [address] 20 Feb, 2013 [facility] [place] [facility] [address] [id number] [place] [address] 17 Feb, 2013 [facility] [place] [facility] [address] [id number] [place] [address] 04 Feb, 2013 [facility] [place] [facility] [address] [id number] [place] [address] Feb, [facility] [address] [id number] [place] [address] Jan, [facility] [place] [facility] [address] [id number] [place] [address] Dec, [facility] [place] [facility] [address] [id number] [place] [address] Nov, [facility] [place] [facility] [address] [id number] [place] [address] October, [facility] [address] [id number] [place] [address] Sep, [facility] [place] [facility] [address] [id number] [place] [address] Aug, [facility] [place] [facility] [address] [id number] [place] [address] Aug, [facility] [place] [facility] [address] [id number] [place] [address] Aug, [facility] [address] [id number] [place] [address] May, [facility] [place] [facility] [address] [id number] [place] [address] May, [facility] [place] [facility] [address] [id number] [place] [address] May, [facility] [place] [facility] [address] [id number] [place] [address] May, [facility] [place] [facility] [address] [id number] [place] [address] May, [facility] [place] [facility] [address] [id number] [place] [address] Apr, [facility] [place] [facility] [address] [id number] [place] [address] Apr, [facility] [place] [facility] [address] [id number] [place] [address] 14 Apr, 2012 [facility] [place] [facility] [address] [id number] [place] [address] 14 Apr, 2012 [facility] [place] [facility] [address] [id number] [place] [address] 07 Apr, 2012 [facility] [place] [facility] [address] [id number] [place] [address]- [address] 07 Apr, 2012 [facility] [place] [facility] [address] [id number] [place] [address] Apr, [facility] [place] [facility] [address] [id number] [place] [address], [place] [address] Apr, [facility] [place] [facility] [address] [id number] [place] [address] Mar, [facility] [place] [facility] [address] [id number] [place] [address] Mar, [facility] [place] [facility] [address] [id number] [place] [address] Mar, [facility] [place] [facility] [address] [facility] [id number] [place] [address] Mar, [facility] [place] [facility] [address] [facility] [id number] [place] [address] Mar, [facility] [place] [facility] [address] [id number] [place] [address] Mar, [facility] [place] [facility] [address] [id number] [place] [address] Mar, [facility] [place] [facility] [address] [id number] [place] [address] 28 Feb, 2012 [facility] [place] [facility] [address] [id number] [place] [address]- [address] 24 Feb, 2012 [facility] [place] [facility] [address] [id number] [place] [address] Feb, [facility] [place] [facility] [address] [id number] [place] [address] Feb, [facility] [place] [facility] [address] [id number] [place] [address]- [address] Jan, [facility] [place] [facility] [address] [id number] [place] [address] Jan, [facility] [place] [facility] [address] [id number] [place] [address] Jan, [facility] [place] [facility] [address] [address] [id number] [place] [address] Jan, [facility] [place] [facility] [address] [id number] [place] [address] Jan, [facility] [place] [facility] [address] [id number] [place] [address] Jan, [facility] [place] [facility] [address] [id number] [place] [address] Dec, [facility] [place] [facility] [address] [id number] [place] [address] Dec, [facility] [place] [facility] [address] [id number] [place] [address] Dec, [facility] [place] [facility] [address] [id number] [place] [address] Dec, [facility] [place] [facility] [address] [id number] [place] [address] Dec, [facility] [place] [facility] [address] [id number] [place] [address] Dec, [facility] [place] [facility] [address] [id number] [place] [address] Dec, [facility] [place] [facility] [address] [id number] [place] [address] Dec, [facility] [place] [facility] [address] [id number] [place] [address] Nov, [facility] [address] [id number] [place] [address] Nov, [facility] [place] [facility] [address] [id number] [place] [address] Nov, [facility] [place] [facility] [address] [facility] [id number] [place] [address] Nov, [facility] [place] [facility] [address] [id number] [place] [address] October, [facility] [place] [facility] [address] [id number] [place] [address] October, [facility] [place] [facility] [address] [id number] [place] [address] Sep, [facility] [place] [facility] [address] [id number] [address] Sep, [facility] [place] [facility] [address] [facility] [id number] [place] [address] Aug, [facility] [place] [facility] [address] [facility] [id number] [place] [address] 16 Aug, 2011 [facility] [place] [facility] [address] [facility] [id number] [place] [address] Aug, [facility] [place] [facility] [address] [facility] [id number] [place] [address] Aug, [facility] [place] [facility] [address] [facility] [id number] [place] [address] 05 Aug, 2011 [facility] [place] [facility] [address] [id number] [place] [address] 08 Jul, 2011 [facility] [place] [facility] [address] [facility] [id number] [place] [address] 06 Jul, 2011 [facility] [place] [facility] [address] [facility] [id number] [place] [address] Jul, [facility] [place] [facility] [address] [id number] [place] [address] Jul, [facility] [address] [id number] [place] [address] Jun, [facility] [place] [facility] [address] [id number] [place] [address] Jun, [facility] [address] [id number] [place] [address] Jun, [facility] [address] [id number] [place] [address] Jun, [facility] [place] [facility] [address] [id number] [place] [address] Jun, [facility] [address] [id number] [place] [address] May, [facility] [address] [id number] [place] [address] May, [facility] [place] [facility] [address] [id number] [place] [address] May, [facility] [place] [facility] [address] [id number] [place] [address] May, [facility] [place] [facility] [address] [id number] [place] [address] May, [facility] [place] [facility] [address] [id number] [place] [address] May, [facility] [place] [facility] [address] [id number] [place] [address] 2009 Apr, [facility] [place] [facility] [address] [id number] [place] [address] Apr, [facility] [place] [facility] [address] [id number] [place] [address] Mar, [facility] [place] [facility] [address] [id number], [place] [address] Mar, [facility] [address] [id number] [address] October, [facility] [id number] [address] May, [facility] [id number] [address] Apr, [facility] [id number] [address] Jul, [facility] [id number] [address] May, [facility] [id number] [place] [address] May, [facility] [id number] [place] [address] May, [facility] [id number] [place] [address] Apr, [facility] [id number] [place] [address] Apr, [facility] [id number] [address] Mar, [facility] [id number] [address] Jan, [facility] [id number] [address] Nov, IMMUNIZATIONS No Known Immunizations SOCIAL HISTORY Never Assessed REASON FOR VISIT Refill request PLAN OF CARE VITAL SIGNS MEDICATIONS Medication Instructions Dosage Frequency Start Date End Date Duration Status Victoza 18 MG/3ML Subcutaneous Once a day 0.2 ml 24h October, Feb, 30 day(s) Active RESULTS No Results PROCEDURES No Known [...]
--- OUTSIDE RECORDS SUMMARY | 2017-11-01 08:11 | XMS REPORT ---
Author Author BOOGIE ARAUJO [facility] eClinicalWorks Address Unknown Phone Unavailable Care Team Providers Care Regulatory Compliance Officer Name Role Phone BOOGIE ARAUJO CP Unavailable [...] Instructions Start Date End Date Status Dosage [facility] [address]-09 7.5-325 MG Orally 3 times a day May 06, 2015 1 tablet as needed Results No Known Results Summary Purpose eClinicalWorks Submission
--- OUTSIDE RECORDS SUMMARY | 2017-11-01 08:11 | XMS REPORT ---
Author Author BOOGIE ARAUJO Organization [facility] Address [address] [place] [address] Care Team Providers Care [employer] Roller Name Role Phone BOOGIE ARAUJO Unavailable PROBLEMS Type Condition ICD9-CM Code XSI69-PH Code Onset Dates Condition Status SNOMED Code Problem 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, controlled E11.9 Active 34819485 Problem History of abnormal cervical Pap smear Z87.898 Active 132346862 Problem History of colon polyps Z86.010 Active 773954203 Problem Other chronic pain G89.29 Active 27132039 Problem Screening breast examination Z12.39 Active 265187348 Problem Uncontrolled type 2 diabetes mellitus without complication, without long-term current use of insulin E11.65 Active 117731729 Problem Thyroid nodule E04.1 Active 743709537 Problem Allergic rhinitis, unspecified allergic rhinitis trigger, unspecified rhinitis seasonality J30.9 Active 54265430 Problem Thoracogenic scoliosis of thoracolumbar region M41.35 Active 24292689 ALLERGIES No Information ENCOUNTERS Encounter Location Date Diagnosis [facility] [id number] [place] [address] 02133- 7453 02 Sep, 2017 [facility] [id number] [place] [address] 34540- 2302 Aug, Other chronic pain G89.29 [facility] [id number] [place] [address] 98736- 4311 Jul, Other chronic pain G89.29 [facility] [address] 99125- 8940 16 Jul, 2017 Pneumonia of left lower lobe due to infectious organism J18.1 [facility] [id number] [place] [address] 57341 -1332 12 Jul, 2017 Dysuria R30.0 ; Cough in adult patient R05 and Pneumonia of left lower lobe due to infectious organism J18.1 [facility] [address], [place] [address]- 2295 Jul, [facility] [id number] [place] [address] 16675- 4751 Jun, Other chronic pain G89.29 [facility] [id number] [place] [address] 80298- 1863 Jun, [facility] [id number] [place] [address] 11365- 6017 Jun, 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, controlled E11.9 ; Back muscle spasm M62.830 and Other chronic pain G89.29 [facility] [id number] [place] [address] 03792- 2663 Jun, Screening breast examination Z12.31 [facility] [id number] [place] [address] 98852- 7224 May, Other chronic pain G89.29 [facility] [address], [place] [address] 8804 May, [facility] [id number] [place] [address] 83554- 3315 May, UTI (urinary tract infection) N39.0 [facility] [address], [place] [address]- 2126 May, Dysuria R30.0 [facility] [id number] [place] [address] 00983- 7043 May, Dysuria R30.0 [facility] [id number] [place] [address] 70007- 6124 04 May, 2017 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, controlled E11.9 ; penitentiary current use of 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 Z79.891 and Other chronic pain G89.29 [facility] [address], [place] [address]- 3432 Apr, 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, controlled E11.9 [facility] [address], [place] [address] -4356 30 Mar, 2017 Paronychia of great toe, right L03.031 and Dysuria R30.0 [facility] [address], [place] [address]- 6464 09 Mar, 2017 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, controlled E11.9 [facility] [id number] [place] [address] 15756- 8385 28 Feb, 2017 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, controlled E11.9 [facility] [id number] [place] [address] 939171973 13 Feb, 2017 Dental examination Z01.20 [facility] [id number] [place] [address] 69477- 2808 11 Feb, 2017 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, controlled E11.9 [facility] [id number] [place] [address] 00720- 2520 07 Feb, 2017 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, controlled E11.9 [facility] [id number] [place] [address] 08160- 2098 Jan, 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, controlled E11.9 [facility] [id number] [place] [address] 43184- 6291 Dec, 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, controlled E11.9 [facility] [id number] [place] [address] 35779- 2811 Dec, 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, controlled E11.9 [facility] [id number] [place] [address] 80768- 4606 Nov, 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, controlled E11.9 [facility] [id number] [place] [address] 59471- 6450 Nov, 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, controlled E11.9 [facility] [id number] [place] [address] 39019- 3470 Nov, 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, controlled E11.9 [facility] [id number] [place] [address] 48680- 9843 19 Nov, 2016 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, controlled E11.9 [facility] [id number] [place] [address] 86801- 5198 14 Nov, 2016 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, controlled E11.9 [facility] [id number] [place] [address] 97721- 5564 Nov, 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, controlled E11.9 [facility] [id number] [place] [address] 56269- 8967 October, Pain in unspecified shoulder M25.519 [facility] [id number] [place] [address] 86036- 4528 October, 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, controlled E11.9 and Cellulitis of right lower extremity L03.115 [facility] [id number] [place] [address] 53945- 9996 October, Pain in unspecified shoulder M25.519 [facility] [id number] [place] [address] 96628- 0210 Sep, 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, controlled E11.9 [facility] [id number] [place] [address] 00631- 8380 Aug, Pain in unspecified shoulder M25.519 [facility] [id number] [place] [address] 95124- 2507 Aug, 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, controlled E11.9 [facility] [id number] [place] [address] 24725- 9048 Aug, 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, controlled E11.9 ; Dark urine R82.99 and Localized edema R60.0 [facility] [id number] [place] [address] 59115- 6827 Aug, Pain in unspecified shoulder M25.519 [facility] [id number] [place] [address] 38147- 2349 Jul, Pain in unspecified shoulder M25.519 [facility] [id number] [place] [address] 26863- 7603 06 Jul, 2016 [facility] [id number] [place] [address] 03341- 6050 02 Jul, 2016 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, controlled E11.9 and 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 [facility] [id number] [place] [address] 93360- 6595 Jun, 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, controlled E11.9 [facility] [id number] [place] [address] 45640- 2467 18 Jun, 2016 Screening breast examination Z12.39 and Allergic rhinitis, unspecified allergic rhinitis trigger, unspecified rhinitis seasonality J30.9 [facility] [id number] [place] [address] 58380- 7518 10 Jun, 2016 Pain in unspecified shoulder M25.519 [facility] [address] 40710- 0628 May, [facility] [id number] [place] [address] 77027- 6720 May, Pain in unspecified shoulder M25.519 [facility] [id number] [place] [address] 08741- 0372 05 May, 2016 Thoracogenic scoliosis of thoracolumbar region M41.35 ; Low back pain M54.5 ; Other chronic pain G89.29 and Uncontrolled type 2 diabetes mellitus without complication, without long-term current use of insulin E11.65 [facility] [id number] [place] [address] 39348- 9912 Apr, [facility] [address] 97829- 0969 15 Apr, 2016 [facility] [id number] [place] [address] 74888- 8997 04 Apr, 2016 History of type 2 diabetes mellitus Z86.39 and Encounter for immunization Z23 [facility] [id number] [address]- 3626 Mar, [facility] [id number] [place] [address], [place] [address]- 4044 Mar, [facility] [id number] [address]- 5224 Feb, [facility] [id number] [place] [address], [place] [address]- 7276 Jan, [facility] [id number] [place] [address], [place] [address]- 1238 Jan, [facility] [id number] [place] [address], [place] [address]- 3919 Dec, [facility] [address], [place] [address] -9634 Dec, Sore throat J02.9 and Allergic rhinitis, unspecified allergic rhinitis type J30.9 [facility] [address], [place] [address]- 5200 Dec, 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, controlled E11.9 [facility] [id number] [place] [address], [place] [address]- 1993 Nov, [facility] [address], [place] [address]- 7502 Nov, [facility] [address], [place] [address]- 6430 October, [facility] [address], [place] [address]- 6456 October, [facility] [id number] [place] [address], [place] 1217 Sep, [facility] [id number] [address]- 7684 Aug, [facility] [id number] [place] [address] 038201- 5488 Aug, 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, controlled E11.9 ; UTI (urinary tract infection) N39.0 and Bacterial infection A49.9 [facility] [id number] [place] [address] 78227- 5184 Jul, [facility] [address] [place] [address] 40454- 7462 Jul, [facility] [address] 72694- 1975 Jul, Pharyngitis J02.9 and Seborrheic keratoses L82.1 [facility] [id number] [place] [address] 55939- 1336 Jun, [facility] [id number] [place] [address] 54268- 3167 May, [facility] [id number] [place] [address] 55921- 1902 May, Skin tags, multiple acquired L91.8 ; Seborrheic keratoses L82.1 and 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, controlled E11.9 [facility] [address] [place] [address] 24569- 4609 May, Well woman exam Z01.419 ; Papanicolaou [...] E04.1 ; Numerous moles D22.9 ; Other fatigue R53.83 and Other hemorrhoids K64.8 [facility] [address] [place] [address] 52962- 6703 May, [facility] [address] [place] [address] 23670- 3367 May, [facility] [id number] [place] [address] 47177- 0378 Apr, Seborrheic keratosis L82.1 and 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, controlled E11.9 [facility] [id number] [place] [address] 93150- 0191 Apr, Seborrheic keratosis L82.1 and 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, controlled E11.9 [facility] [id number] [place] [address] 39054- 4441 Mar, [facility] [id number] [place] [address] 23538- 6737 Mar, [facility] [id number] [place] [address] 35246- 5318 Mar, Nevoid hyperpigmentation L81.9 ; Encounter for immunization Z23 ; Skin tags, multiple acquired L91.8 and Seborrheic keratoses L82.1 [facility] [id number] [place] [address] 76455- 1299 Feb, [facility] [id number] [place] [address] 08829- 7653 Feb, [facility] [id number] [place] [address] 32189- 6599 Feb, [facility] [id number] [place] [address] 75041- 1856 Feb, Diabetes 250.00 ; Tinea corporis 110.5 and Shoulder pain, left 719.41 [facility] [id number] [place] [address] 99129- 4074 Jan, [facility] [address] 87667- 4322 Dec, [facility] [id number] [place] [address] 55733- 8682 Dec, [facility] [id number] [place] [address] 25439- 9938 Dec, Seborrheic keratoses 702.19 ; Diabetes 250.00 and Hypoglycemia 251.2 [facility] [address] 2869 Nov, [facility] [id number] [address]- 2477 Nov, Abnormal mammogram 793.80 [facility] [id number] [place] [address] 53534- 0959 October, Diabetes 250.00 and Colon polyp 211.3 [facility] [address], [place] [address]- 1267 Sep, [facility] [id number] [place] [address] 01752- 1724 Sep, [facility] [address], [place] [address]- 0022 Sep, [facility] [address], [place] [address]- 5635 Aug, [facility] [address], [place] [address]- 9460 Aug, [facility] [address], [place] [address]- 1221 Jul, [facility] [address], [place] [address]- 1023 Jul, [facility] [address], [place] [address]- 8288 Jun, [facility] [address], [place] [address]- 1926 Jun, [facility] [address], [place] [address]- 4656 Jun, [facility] [id number], [place] [address]- 2976 Jun, [facility] [id number] [address]- 7576 Jun, [facility] [address] [id number] [place] [address]- 8332 Jun, [facility] [place] [facility] [address] [id number] [place] [address]- 7948 May, [facility] [place] [facility] [address] [id number] [place] [address]- 9323 May, [facility] [place] [facility] [address] [id number] [place] [address]- 2675 Apr, [facility] [place] [facility] [address] [id number] [place] [address]- 2045 Apr, [facility] [place] [facility] [address] [id number] [place] [address]- 7931 Apr, [facility] [place] [facility] [address] [id number] [place] [address]- 7568 Apr, [facility] [place] [facility] [address] [id number] [place] [address]- 1797 Apr, [facility] [place] [facility] [address] [id number] [place] [address]- 7871 Apr, [facility] [place] [facility] [address] [id number] [place] [address]- 6131 Apr, [facility] [place] [facility] [address] [id number] [place] [address]- 1241 Apr, [facility] [place] [facility] [address] [id number] [place] [address]- 3725 Apr, [facility] [place] [facility] [address] [id number] [place] [address]- 8245 Apr, [facility] [place] [facility] [address] [id number] [place] [address]- 4176 Mar, [facility] [place] [facility] [address] [id number] [place] [address]- 7398 Mar, [facility] [place] [facility] [address] [id number] [place] [address]- 4367 Mar, [facility] [place] [facility] [address] [id number] [place] [address]- 1572 Mar, [facility] [place] [facility] [address] [id number] [place] [address]- 0326 Mar, [facility] [place] [facility] [address] [id number] [place] [address]- 4885 Mar, [facility] [place] [facility] [address] [id number] [place] [address]- 4800 Mar, [facility] [place] [facility] [address] [id number] [place] [address]- 6043 Mar, [facility] [place] [facility] [address] [id number] [place] [address]- 7224 Feb, [facility] [place] [facility] [address] [id number] [place] [address]- 6240 Feb, [facility] [place] [facility] [address] [id number] [place] [address]- 6148 Feb, [facility] [place] [facility] [address] [id number] [place] [address]- 0997 Feb, [facility] [place] [facility] [address] [id number] [place] [address]- 2801 Jan, [facility] [place] [facility] [address] [id number], [place] [address]- 7034 Jan, [facility] [place] [facility] [address] [id number] [place] [address]- 8446 Dec, [facility] [place] [facility] [address] [id number] [place] 7525 Dec, [facility] [place] [facility] [address] [id number] [place] 7439 Nov, [facility] [place] [facility] [address] [id number], [place] [address]- 1253 Nov, [facility] [address] [id number] [place] [address]- 2765 Nov, [facility] [place] [facility] [address] [id number] [place] [address]- 0942 Nov, [facility] [place] [facility] [address] [id number] [place] [address]- 2188 October, [facility] [place] [facility] [address] [id number] [place] [address]- 5405 October, [facility] [place] [facility] [address] [id number] [place] [address]- 8454 October, [facility] [place] [facility] [address] [id number] [place] [address]- 2235 October, [facility] [place] [facility] [address] [id number] [place] [address]- 3394 October, [facility] [place] [facility] [address] [id number] [place] [address]- 4313 October, [facility] [place] [facility] [address] [id number] [place] [address]- 6052 October, [facility] [place] [facility] [address] [id number] [place] [address]- 6073 October, [facility] [place] [facility] [address] [id number] [place] [address]- 8752 Aug, [facility] [place] [facility] [address] [id number] [place] [address]- 4971 Aug, [facility] [place] [facility] [address] [id number] [place] [address]- 3136 Jul, [facility] [place] [facility] [address] [id number] [place] [address]- 0730 Jul, [facility] [place] [facility] [address] [id number] [place] [address]- 4987 Jul, [facility] [place] [facility] [address] [id number] [place] [address] Jul, [facility] [place] [facility] [address] [id number] [place] [address] Jul, [facility] [place] [facility] [address] [id number] [place] [address] Jun, [facility] [place] [facility] [address] [id number] [place] [address] Jun, [facility] [place] [facility] [address] [id number] [place] [address] May, [facility] [place] [facility] [address] [id number] [place] [address] May, [facility] [place] [facility] [address] [id number] [place] [address] Apr, [facility] [place] [facility] [address] [id number] [place] [address] Apr, [facility] [place] [facility] [address] [id number] [place] [address] Mar, [facility] [place] [facility] [address] [id number] [place] [address] Mar, [facility] [place] [facility] [address] [id number] [place] [address] Mar, [facility] [place] [facility] [address] [id number], [place] [address] Feb, [facility] [place] [facility] [address] [id number] [place] [address] 20 Feb, 2013 [facility] [place] [facility] [address] [id number] [place] [address] 17 Feb, 2013 [facility] [place] [facility] [address] [id number] [place] [address] 04 Feb, 2013 [facility] [place] [facility] [address] [id number] [place] [address] Feb, [facility] [address] [id number] [place] [address] Jan, [facility] [place] [facility] [address] [id number] [place] [address] Dec, [facility] [place] [facility] [address] [id number] [place] [address] Nov, [facility] [place] [facility] [address] [id number] [place] [address] October, [facility] [address] [id number] [place] [address] Sep, [facility] [place] [facility] [address] [id number] [place] [address] Aug, [facility] [place] [facility] [address] [id number] [place] [address] Aug, [facility] [place] [facility] [address] [id number] [place] [address] Aug, [facility] [address] [id number] [place] [address] May, [facility] [place] [facility] [address] [id number] [place] [address] May, [facility] [place] [facility] [address] [id number] [place] [address] May, [facility] [place] [facility] [address] [id number] [place] [address] May, [facility] [place] [facility] [address] [id number] [place] [address] May, [facility] [place] [facility] [address] [id number] [place] [address] Apr, [facility] [place] [facility] [address] [id number] [place] [address] Apr, [facility] [place] [facility] [address] [id number] [place] [address] 14 Apr, 2012 [facility] [place] [facility] [address] [id number] [place] [address] 14 Apr, 2012 [facility] [place] [facility] [address] [id number] [place] [address] 07 Apr, 2012 [facility] [place] [facility] [address] [id number] [place] [address] 07 Apr, 2012 [facility] [place] [facility] [address] [id number] [place] [address] Apr, [facility] [place] [facility] [id number] [place] [address], [place] [address]- [address] Apr, [facility] [place] [facility] [address] [id number] [place] [address] Mar, [facility] [place] [facility] [address] [id number] [place] [address] Mar, [facility] [place] [facility] [address] [id number] [place] [address] Mar, [facility] [place] [facility] [address] [facility] [id number] [place] [address] Mar, [facility] [place] [facility] [address] [facility] [id number] [place] [address] Mar, [facility] [place] [facility] [address] [id number] [place] [address] Mar, [facility] [place] [facility] [address] [id number] [place] [address] Mar, [facility] [place] [facility] [address] [id number] [place] [address] 28 Feb, 2012 [facility] [place] [facility] [address] [id number] [place] [address] 24 Feb, 2012 [facility] [place] [facility] [address] [id number] [place] [address] Feb, [facility] [place] [facility] [address] [id number] [place] [address] Feb, [facility] [place] [facility] [address] [id number] [place] [address] Jan, [facility] [place] [facility] [address] [id number] [place] [address] Jan, [facility] [place] [facility] [address] [id number] [place] [address] Jan, [facility] [place] [facility] [address] [id number] [place] [address] Jan, [facility] [place] [facility] [address] [id number] [place] [address] 2010 Jan, [facility] [place] [facility] [address] [id number] [place] [address] Jan, [facility] [place] [facility] [address] [id number] [place] [address] Dec, [facility] [place] [facility] [address] [id number] [place] [address] Dec, [facility] [place] [facility] [address] [id number] [place] [address] Dec, [facility] [place] [facility] [address] [id number] [place] [address] Dec, [facility] [place] [facility] [address] [id number] [place] [address] Dec, [facility] [place] [facility] [address] [id number] [place] [address] Dec, [facility] [place] [facility] [address] [id number] [place] [address] Dec, [facility] [place] [facility] [address] [id number] [place] [address] Dec, [facility] [place] [facility] [address] [id number] [place] [address] Nov, [facility] [address] [id number] [place] [address] Nov, [facility] [place] [facility] [address] [id number] [place] [address] Nov, [facility] [place] [facility] [address] [facility] [id number] [place] [address] Nov, [facility] [place] [facility] [address] [id number] [place] [address] October, [facility] [place] [facility] [address] [id number] [place] [address] October, [facility] [place] [facility] [address] [id number] [place] [address] Sep, [facility] [place] [facility] [address] [id number] [address] Sep, [facility] [place] [facility] [address] [facility] [facility] [id number] [place] [address] Aug, [facility] [place] [facility] [address] [facility] [facility] [id number] [place] [address] 16 Aug, 2011 [facility] [place] [facility] [address] [facility] [facility] [id number] [place] [address] Aug, [facility] [place] [facility] [address] [facility] [facility] [id number] [place] [address] Aug, [facility] [place] [facility] [address] [facility] [facility] [id number] [place] [address] 05 Aug, 2011 [facility] [place] [facility] [address] [id number] [place] [address] 08 Jul, 2011 [facility] [place] [facility] [address] [facility] [facility] [id number] [place] [address] 06 Jul, 2011 [facility] [place] [facility] [address] [facility] [facility] [id number] [place] [address] Jul, [facility] [place] [facility] [address] [id number] [place] [address] Jul, [facility] [address] [id number] [place] [address] Jun, [facility] [place] [facility] [address] [id number] [place] [address] Jun, [facility] [address] [id number] [place] [address] Jun, [facility] [address] [id number] [place] [address] Jun, [facility] [place] [facility] [address] [id number] [place] [address] Jun, [facility] [address] [id number] [place] [address] May, [facility] [address] [id number] [place] [address] May, [facility] [place] [facility] [address] [id number] [place] [address] May, [facility] [place] [facility] [address] [id number] [place] [address] May, [facility] [place] [facility] [address] [id number] [place] [address] May, [facility] [place] [facility] [address] [id number] [place] [address] May, [facility] [place] [facility] [address] [id number] [place] [address] Apr, [facility] [place] [facility] [address] [id number] [place] [address] 1994 Apr, [facility] [place] [facility] [address] [id number] [place] [address] Mar, [facility] [place] [facility] [address] [id number], [place] [address] Mar, [facility] [address] [id number] [address] October, [facility] [id number], [place] [address] May, [facility] [id number], [place] [address] Apr, [facility] [id number], [place] [address] Jul, [facility] [id number], [place] [address] May, [facility] [id number] [place] [address] May, [facility] [id number], [place] [address] May, [facility] [id number], [place] [address] Apr, [facility] [id number] [place] [address] Apr, [facility] [id number], [place] [address] Mar, [facility] [address] [id number], [place] [address] Jan, [facility] [id number], [place] [address] Nov, IMMUNIZATIONS No Known Immunizations SOCIAL HISTORY Never Assessed REASON FOR VISIT Controlled Med Refill PLAN OF CARE VITAL SIGNS MEDICATIONS Medication Instructions Dosage Frequency Start Date End Date Duration Status [place] 7.5-325 MG Orally 4 times a day 1 tablet as needed 6h Dec, 28 days Active RESULTS No Results PROCEDURES [...]
--- OUTSIDE RECORDS SUMMARY | 2017-11-01 08:11 | XMS REPORT ---
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
--- OUTSIDE RECORDS SUMMARY | 2017-11-01 08:12 | XMS REPORT ---
Author Author BOOGIE ARAUJO [facility] eClinicalWorks Address Unknown Phone Unavailable Care Team Providers Care Electro Mechanical Technologist Name Role Phone BOOGIE ARAUJO CP Unavailable [...] Instructions Start Date End Date Status Dosage MetFORMIN HCl ER [facility] [address]-15 500 MG Orally twice a day Apr 01, 2016 2 tablets Results No Known Results Summary Purpose eClinicalWorks Submission
--- OUTSIDE RECORDS SUMMARY | 2017-11-01 08:12 | XMS REPORT ---
Author Author BOOGIE ARAUJO Organization [facility] Address [address] [place] [address] Care Team Providers Care Call Person Name Role Phone BOOGIE ARAUJO Unavailable PROBLEMS Type Condition ICD9-CM Code QEI57-DR Code Onset Dates Condition Status SNOMED Code Problem History of abnormal cervical Pap smear Z87.898 Active 827179527 Problem Thoracogenic scoliosis of thoracolumbar region M41.35 Active 76114605 Problem Uncontrolled type 2 diabetes mellitus without complication, without long-term current use of insulin E11.65 Active 404843312 Problem 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, controlled E11.9 Active 66687385 Problem Thyroid nodule E04.1 Active 261332417 Problem History of colon polyps Z86.010 Active 807369460 Problem Other iron deficiency anemia D50.8 Active 45952950 Problem Iron deficiency anemia due to chronic blood loss D50.0 Active 224123339 Problem Screening breast examination Z12.39 Active 291249846 Problem Allergic rhinitis, unspecified allergic rhinitis trigger, unspecified rhinitis seasonality J30.9 Active 77569250 Problem Controlled type 2 diabetes mellitus without complication, without long -term current use of insulin E11.9 Active 681996217 Problem Other chronic pain G89.29 Active 45748210 ALLERGIES Substance Reaction Event Type Date Status Diclofenac rash Drug Allergy Feb, Active Invokana swelling Drug Allergy Feb, Active Trilipix Unknown Drug Allergy Feb, Active Simcor chest pain, due to high doses of niacin in the simcor Drug Allergy Feb, Active Meloxicam elevated BG, fluid retention Drug Allergy Feb, Active Hydrochlorothiazide Unknown Drug Allergy Feb, Active Dimetapp Maximum Strength Unknown Drug Allergy Feb, Active BusPIRone HCl dizziness Drug Allergy Feb, Active Augmentin Unknown Drug Allergy Feb, Active ENCOUNTERS Encounter Location Date Diagnosis [facility] [address] [facility] [id number] [address] Sep, 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, controlled E11.9 [facility] [id number] [place] [address] 25759- 6610 Sep, [facility] [id number] [place] [address] 31191- 7578 Sep, 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, controlled E11.9 [facility] [id number] [place] [address] 03811- 3766 Sep, Other chronic pain G89.29 [facility] [id number] [place] [address] 13649- 6734 Sep, Other iron deficiency anemia D50.8 [facility] [id number] [place] [address] 26593- 0985 Sep, Other iron deficiency anemia D50.8 [facility] [id number] [place] [address] 21965- 1245 Sep, Iron deficiency anemia due to chronic blood loss D50.0 and Dysuria R30.0 [facility] [facility] [id number] [place] [address] 16928- 6966 Sep, Dysuria R30.0 [place] [facility] [id number] [place] [address] 41242- 3127 Sep, Iron deficiency anemia due to chronic blood loss D50.0 [place] [address] [place] [address] 65838- 6325 Sep, [facility] [address] [place] [address] 71568- 6119 Sep, Controlled type 2 diabetes mellitus without complication, without long-term current use of insulin E11.9 ; Leg cramps R25.2 ; Low back pain M54.5 and Other chronic pain G89.29 [facility] [address] [place] [address] 36229- 2433 Sep, Controlled type 2 diabetes mellitus without complication, without long-term current use of insulin E11.9 ; Low back pain M54.5 ; Other chronic pain G89.29 and Leg cramps R25.2 [facility] [id number] [place] [address] 62408- 2327 Aug, Other chronic pain G89.29 [facility] [id number] [place] [address] 54121- 1845 Jul, Other chronic pain G89.29 [facility] [address] 04515- 8970 16 Jul, 2017 Pneumonia of left lower lobe due to infectious organism J18.1 [facility] [address] 76899 -6079 Jul, Dysuria R30.0 ; Cough in adult patient R05 and Pneumonia of left lower lobe due to infectious organism J18.1 [place] [facility] [address] 57733- 2642 Jul, [facility] [id number] [place] [address] 85655- 4608 Jun, Other chronic pain G89.29 [facility] [address] 74811- 6406 Jun, [facility] [id number] [place] [address] 55338- 4277 Jun, 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, controlled E11.9 ; Back muscle spasm M62.830 and Other chronic pain G89.29 [facility] [id number] [place] [address] 62716- 4553 Jun, Screening breast examination Z12.31 [facility] [address] 47843- 1036 May, Other chronic pain G89.29 [facility] [id number] [place] [address] 26820- 4223 May, [facility] [address] 71677- 5489 May, UTI (urinary tract infection) N39.0 [facility] [address] [place] [address] 75619- 4080 May, Dysuria R30.0 [facility] [id number] [place] [address] 94701- 1108 May, Dysuria R30.0 [facility] [id number] [place] [address] 53522- 3046 May, 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, controlled E11.9 ; 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 and Other chronic pain G89.29 [facility] [id number] [place] [address] 54857- 6501 Apr, 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, controlled E11.9 [facility] [id number] [place] [address] 65466 -0040 Mar, Paronychia of great toe, right L03.031 and Dysuria R30.0 [facility] [address] [place] [address] 49912- 1606 Mar, 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, controlled E11.9 [facility] [address] [place] [address] 21362- 2310 28 Feb, 2017 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, controlled E11.9 [facility] [address] [place] [address] [id number] 13 Feb, 2017 Dental examination Z01.20 [facility] [address] [place] [address] 39875- 8304 11 Feb, 2017 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, controlled E11.9 [facility] [id number] [place] [address] 26029- 3667 07 Feb, 2017 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, controlled E11.9 [facility] [address] [place] [address] 76610- 3413 14 Jan, 2017 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, controlled E11.9 [facility] [address] [id number] [address] 3095 Dec, 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, controlled E11.9 [facility] [address] [address] 5502 Dec, 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, controlled E11.9 [facility] [address] [place] [address] 86729- 7453 Nov, 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, controlled E11.9 [facility] [id number] [place] [address] 99519- 9658 Nov, 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, controlled E11.9 [facility] [id number] [place] [address] 98122- 3794 Nov, 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, controlled E11.9 [facility] [id number] [place] [address] 04596- 2688 Nov, 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, controlled E11.9 [facility] [id number] [place] [address] 78995- 0524 Nov, 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, controlled E11.9 [facility] [address] [place] [address] 04997- 4963 Nov, 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, controlled E11.9 [facility] [address] [place] [address] 14673- 1277 October, Pain in unspecified shoulder M25.519 [facility] [address] [place] [address] 77838- 9336 October, 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, controlled E11.9 and Cellulitis of right lower extremity L03.115 [facility] [id number] [place] [address] 89242- 2584 October, Pain in unspecified shoulder M25.519 [facility] [address] [address] 0901 Sep, 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, controlled E11.9 [facility] [id number] [place] [address] 55570- 5826 Aug, Pain in unspecified shoulder M25.519 [place] [facility] [id number] [place] [address] 28156- 8454 Aug, 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, controlled E11.9 [facility] [facility] [id number] [place] [address] 62499- 5150 09 Aug, 2016 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, controlled E11.9 ; Dark urine R82.99 and Localized edema R60.0 [facility] [facility] [id number] [place] [address] 42458- 4906 Aug, Pain in unspecified shoulder M25.519 [place] [id number] [place] [address] 28506- 9976 07 Jul, 2016 Pain in unspecified shoulder M25.519 [place] [id number] [place] [address] 62661- 1473 06 Jul, 2016 [place] [id number] [place] [address] 75237- 9075 Jul, 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, controlled E11.9 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 [place] [id number] [place] [address] 33508- 1963 Jun, 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, controlled E11.9 [place] [id number] [place] [address] 40589- 2390 Jun, Screening breast examination Z12.39 and Allergic rhinitis, unspecified allergic rhinitis trigger, unspecified rhinitis seasonality J30.9 [place] [address] [place] [address] 51687- 8159 Jun, Pain in unspecified shoulder M25.519 [place] [id number] [place] [address] 08294- 1941 May, [place] [id number] [place] [address] 43254- 6185 May, Pain in unspecified shoulder M25.519 [place] [id number] [place] [address] 18530- 2418 May, Thoracogenic scoliosis of thoracolumbar region M41.35 ; Low back pain M54.5 ; Other chronic pain G89.29 and Uncontrolled type 2 diabetes mellitus without complication, without long-term current use of insulin E11.65 [facility] [id number] [place] [address] 21833- 8270 Apr, [facility] [address] 63454- 9206 Apr, [facility] [address] 16136- 6070 Apr, History of type 2 diabetes mellitus Z86.39 and Encounter for immunization Z23 [facility] [id number] [place] [address] 46626- 5350 Mar, [facility] [address] 72239- 7621 Mar, [facility] [id number] [place] [address] 82259- 6207 Feb, [facility] [id number] [place] [address] 52911- 5877 Jan, [facility] [id number] [place] [address] 11945- 4166 Jan, [facility] [id number] [place] [address] 89680- 8099 Dec, [facility] [id number] [place] [address] 83097 -5083 Dec, Sore throat J02.9 and Allergic rhinitis, unspecified allergic rhinitis type J30.9 [facility] [id number] [place] [address] 50276- 6492 Dec, 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, controlled E11.9 [facility] [id number] [place] [address] 23614- 8187 Nov, [facility] [id number] [address]- 2867 Nov, [facility] [address] [address]- 9432 October, [facility] [id number] [address]- 9418 October, [facility] [address] [address]- 6786 Sep, [facility] [id number] [address]- 8598 Aug, [facility] [address] [address]- 1002 Aug, 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, controlled E11.9 ; UTI (urinary tract infection) N39.0 and Bacterial infection A49.9 [facility] [address] [address]- 9799 Jul, [facility] [address] [address]- 6254 Jul, [facility] [address] [address]- 5208 Jul, Pharyngitis J02.9 and Seborrheic keratoses L82.1 [facility] [address] [address]- 5674 Jun, [facility] [id number] [address]- 6218 May, [facility] [id number] [address]- 9165 May, Skin tags, multiple acquired L91.8 ; Seborrheic keratoses L82.1 and 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, controlled E11.9 [facility] [id number] [address]- 5688 May, Well woman exam Z01.419 ; Papanicolaou [...] Other hemorrhoids K64.8 and Other fatigue R53.[address] 63593- 5308 May, [address] 42067- 4345 May, [address] 83110- 3924 Apr, Seborrheic keratosis L82.1 and 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, controlled E11.[address] 02278- 9120 Apr, Seborrheic keratosis L82.1 and 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, controlled E11.[address] 11032- 7407 Mar, [address] 74920- 4497 Mar, [address] 11983- 6355 Mar, Encounter for immunization Z23 ; Nevoid hyperpigmentation L81.9 ; Skin tags, multiple acquired L91.8 and Seborrheic keratoses L82.[address] 26284- 4692 Feb, [address] 98635- 0358 Feb, [address] [place] [address]- 0059 Feb, [facility] [address] 4833 Feb, Diabetes 250.00 ; Tinea corporis 110.5 and Shoulder pain, left 719.41 [facility] [address] [address]- 9453 Jan, [facility] [id number] [place] [address] 27454- 8437 Dec, [facility] [address] [place] [address] 19647- 7785 Dec, [facility] [id number] [place] [address] 55126- 6987 Dec, Seborrheic keratoses 702.19 ; Diabetes 250.00 and Hypoglycemia 251.2 [facility] [address] [place] [address] 53384- 7625 Nov, [facility] [address] [address]- 9065 Nov, Abnormal mammogram 793.80 [facility] [address] [address]- 5182 October, Diabetes 250.00 and Colon polyp 211.3 [facility] [address] [address]- 6550 Sep, [facility] [address] [address]- 5376 Sep, [facility] [address] [address]- 9798 Sep, [facility] [address] 1846 Aug, [facility] [address] [address] 8258 Aug, [facility] [id number] [place] [address]- 8567 Jul, [facility] [address] [id number] [place] [address]- 9726 Jul, [facility] [address] [id number] [place] [address]- 2796 Jun, [facility] [address] [id number] [place] [address]- 0643 Jun, [facility] [address] [id number] [place] [address]- 0022 Jun, [facility] [address] [id number] [place] [address]- 8985 Jun, [facility] [address] [facility] [id number] [place] [address]- 7739 Jun, [facility] [address] [id number] [place] [address]- 1265 Jun, [facility] [address] [id number] [place] [address]- 2430 May, [facility] [address] [id number] [place] [address]- 4615 May, [facility] [address] [id number] [place] [address]- 1697 Apr, [facility] [place] [facility] [address] [id number] [place] [address]- 9079 Apr, [facility] [place] [facility] [address] [id number] [place] [address]- 0975 Apr, [facility] [place] [facility] [address] [id number] [place] [address]- 7927 Apr, [facility] [place] [facility] [address] [id number] [place] [address]- 0629 Apr, [facility] [place] [facility] [address] [id number] [place] [address] 5933 Apr, [facility] [place] [facility] [address] [id number] [place] [address]- 4872 Apr, [facility] [place] [facility] [address] [id number] [place] [address]- 0831 Apr, [facility] [place] [facility] [address] [id number] [place] [address]- 3033 Apr, [facility] [place] [facility] [address] [id number] [place] [address]- 9511 Apr, [facility] [place] [facility] [address] [id number] [place] [address]- 6908 Mar, [facility] [place] [facility] [address] [id number] [place] [address]- 5661 Mar, [facility] [place] [facility] [address] [id number] [place] [address]- 1860 Mar, [facility] [place] [facility] [address] [id number] [place] [address]- 4267 Mar, [facility] [place] [facility] [address] [id number] [place] [address]- 5018 Mar, [facility] [place] [facility] [address] [id number] [place] [address]- 5471 Mar, [facility] [place] [facility] [address] [id number] [place] [address]- 3054 Mar, [facility] [place] [facility] [address] [id number] [address]- 2722 Mar, [facility] [place] [facility] [address] [id number] [place] [address]- 8611 Feb, [facility] [place] [facility] [address] [id number] [place] [address]- 0034 Feb, [facility] [place] [facility] [address] [id number] [place] 9040 Feb, [facility] [place] [facility] [address] [id number] [place] [address]- 4164 Feb, [facility] [place] [facility] [address] [id number] [place] [address]- 0098 Jan, [facility] [place] [facility] [address] [id number] [place] [address]- 4283 Jan, [facility] [place] [facility] [address] [id number] [place] [address]- 9047 Dec, [facility] [place] [facility] [address] [id number] [place] [address]- 9457 Dec, [facility] [place] [facility] [address] [id number] [place] [address]- 0076 Nov, [facility] [place] [facility] [address] [id number] [place] [address]- 9916 Nov, [facility] [place] [facility] [address] [id number] [place] [address]- 6636 Nov, [facility] [place] [facility] [address] [id number] [place] [address]- 1207 Nov, [facility] [place] [facility] [address] [id number] [place] [address]- 1673 October, [facility] [place] [facility] [address] [id number] [place] [address]- 6878 October, [facility] [place] [facility] [address] [id number] [place] [address]- 7608 October, [facility] [place] [facility] [address] [id number] [place] [address]- 6546 October, [facility] [place] [facility] [address] [id number] [place] [address]- 3538 October, [facility] [place] [facility] [address] [id number] [place] [address]- 0111 October, [facility] [place] [facility] [address] [id number] [place] [address]- 6771 October, [facility] [place] [facility] [address] [id number] [place] [address]- 2214 October, [facility] [place] [facility] [address] [id number] [place] [address]- 5709 Aug, [facility] [place] [facility] [address] [id number] [place] [address]- 1436 Aug, [facility] [place] [facility] [address] [id number] [place] [address]- 0496 Jul, [facility] [place] [facility] [address] [id number] [place] [address]- 3956 Jul, [facility] [place] [facility] [address] [id number] [place] [address]- 8640 Jul, [facility] [place] [facility] [address] [id number] [place] 0185 Jul, [facility] [place] [facility] [address] [id number] [place] [address]- 6698 Jul, [facility] [place] [facility] [address] [id number] [place] [address]- 8400 Jun, [facility] [place] [facility] [address] [id number] [place] [address]- 2289 Jun, [facility] [place] [facility] [address] [id number] [place] [address]- 7658 May, [facility] [place] [facility] [address] [id number] [address]- 9301 May, [facility] [place] [facility] [address] [id number] [place] [address]- 0[address] Apr, [facility] [place] [facility] [address] [id number] [place] [address] Apr, [facility] [place] [facility] [address] [id number] [place] [address] Mar, [facility] [place] [facility] [address] [id number], [place] [address] 10 Mar, 2013 [facility] [address] [id number] [place] [address] Mar, [facility] [place] [facility] [address] [id number] [place] [address] Feb, [facility] [address] [id number] [place] [address] Feb, [facility] [place] [facility] [address] [id number] [place] [address] 17 Feb, 2013 [facility] [address] [id number] [place] [address] Feb, [facility] [address] [id number] [place] [address] Feb, [facility] [address] [id number] [place] [address] Jan, [facility] [address] [id number] [place] [address] Dec, [facility] [address] [id number] [place] [address] Nov, [facility] [place] [facility] [address] [id number] [place] [address] October, [facility] [address] [id number], [place] [address] Sep, [facility] [place] [facility] [address] [id number] [place] [address] Aug, [facility] [place] [facility] [address] [id number] [place] [address] Aug, [facility] [place] [facility] [address] [id number] [place] [address] Aug, [facility] [place] [facility] [address] [id number] [place] [address] May, [facility] [place] [facility] [address] [id number] [place] [address] 12 May, 2012 [facility] [place] [facility] [address] [id number] [place] [address] 12 May, 2012 [facility] [place] [facility] [address] [id number] [place] [address] May, [facility] [place] [facility] [address] [id number] [place] [address] May, [facility] [place] [facility] [address] [id number] [place] [address] 16 Apr, 2012 [facility] [place] [facility] [address] [id number] [place] [address] 16 Apr, 2012 [facility] [place] [facility] [address] [id number] [place] [address]- [address] 14 Apr, 2012 [facility] [place] [facility] [address] [id number] [place] [address] 14 Apr, 2012 [facility] [place] [facility] [address] [id number] [place] [address] Apr, [facility] [place] [facility] [address] [address] [id number] [place] [address] Apr, [facility] [place] [facility] [address] [facility] [id number] [place] [address] Apr, [facility] [place] [facility] [address] [id number] [place] [address] Apr, [facility] [place] [facility] [address] [id number] [place] [address] Mar, [facility] [place] [facility] [address] [id number] [place] [address] Mar, [facility] [place] [facility] [address] [id number] [place] [address] Mar, [facility] [place] [facility] [address] [id number] [place] [address] Mar, [facility] [place] [facility] [address] [id number] [place] [address] Mar, [facility] [place] [facility] [address] [id number] [place] [address] Mar, [facility] [place] [facility] [address] [id number] [place] [address] Mar, [facility] [place] [facility] [address] [id number] [place] [address] Feb, [facility] [place] [facility] [address] [id number] [place] [address] 24 Feb, 2012 [facility] [place] [facility] [address] [id number] [place] [address] Feb, [facility] [place] [facility] [address] [id number] [place] [address] Feb, [facility] [place] [facility] [address] [id number] [place] [address] Jan, [facility] [place] [facility] [address] [id number] [place] [address] Jan, [facility] [place] [facility] [address] [id number] [place] [address] Jan, [facility] [place] [facility] [address] [id number] [place] [address] Jan, [facility] [place] [facility] [address] [id number] [place] [address] Jan, [facility] [place] [facility] [address] [id number] [place] [address] Jan, [facility] [place] [facility] [address] [id number] [place] [address] Dec, [facility] [place] [facility] [address] [id number] [place] [address] Dec, [facility] [place] [facility] [address] [id number] [place] [address] Dec, [facility] [place] [facility] [address] [id number] [place] [address] Dec, [facility] [place] [facility] [address] [id number] [place] [address] Dec, [facility] [place] [facility] [address] [id number] [place] [address] 1186 Dec, [facility] [place] [facility] [address] [id number] [place] [address] Dec, [facility] [place] [facility] [address] [id number] [place] [address] Dec, [facility] [place] [facility] [address] [id number] [place] [address]84 Nov, [facility] [place] [facility] [address] [id number] [place] [address] Nov, [facility] [place] [facility] [address] [id number] [place] [address]8 Nov, [facility] [place] [facility] [address] [id number] [place] [address] Nov, [facility] [place] [facility] [address] [id number] [place] [address]69 October, [facility] [place] [facility] [address] [id number] [place] [address] October, [facility] [place] [facility] [address] [id number] [place] [address] 30 Sep, 2011 [facility] [place] [facility] [address] [id number] [place] [address] Sep, [facility] [place] [facility] [address] [id number] [place] [address] 27 Aug, 2011 [facility] [place] [facility] [address] [id number] [place] [address] 16 Aug, 2011 [facility] [place] [facility] [address] [id number] [place] [address] 07 Aug, 2011 [facility] [place] [facility] [address] [id number] [place] [address] Aug, [facility] [place] [facility] [address] [id number] [place] [address] Aug, [facility] [place] [facility] [address] [id number] [place] [address] 08 Jul, 2011 [facility] [place] [facility] [address] [id number] [place] [address] Jul, [facility] [place] [facility] [address] [id number] [place] [address] Jul, [facility] [place] [facility] [address] [id number] [place] [address] Jul, [facility] [place] [facility] [address] [id number] [place] [address] Jun, [facility] [place] [facility] [address] [id number] [place] [address] Jun, [facility] [place] [facility] [address] [id number] [place] [address] Jun, [facility] [place] [facility] [address] [id number] [place] [address] Jun, [facility] [place] [facility] [address] [id number] [place] [address] Jun, [facility] [place] [facility] [address] [id number] [place] [address] 79[address] May, [facility] [place] [facility] [address] [id number] [place] [address] 97[address] May, [facility] [place] [facility] [address] [id number] [place] [address] 39[address] May, [facility] [place] [facility] [address] [id number], [place] [address] May, [facility] [place] [facility] [address] [id number] [place] [address] 74[address] May, [facility] [place] [facility] [address] [id number] [place] [address] May, [facility] [place] [facility] [address] [facility] [id number] [place] [address] 39[address] Apr, [facility] [place] [facility] [address] [id number] [place] [address] Apr, [facility] [place] [facility] [address] [id number] [place] [address] Mar, [facility] [place] [facility] [address] [id number] [place] [address] Mar, [facility] [place] [facility] [address] [facility] [id number] [place] [address]70 October, [facility] [place] [facility] [address] [facility] [id number] [place] [address] May, [facility] [place] [facility] [address] [facility] [id number], [place] [address] Apr, [facility] [place] [facility] [address] [facility] [id number] [place] [address]- [address] Jul, [facility] [place] [facility] [address] [facility] [id number], [place] [address] May, [facility] [place] [facility] [address] [id number], [place] [address] May, [facility] [place] [facility] [address] [facility] [id number] [place] [address]- 8658 May, [facility] [place] [facility] [address] [facility] [id number], [place] [address] Apr, [facility] [place] [facility] [address] [facility] [id number][place] [address] Apr, [facility] [place] [facility] [address] [facility] [id number] [place] [address] Mar, [facility] [address] [facility] [id number], [place] [address] Jan, [facility] [address] [facility] [id number] [place] [address] Nov, IMMUNIZATIONS No Known Immunizations SOCIAL HISTORY Never Assessed REASON FOR VISIT Diabetes CBrumbackRn PLAN OF CARE Activity Details Follow Up 4 Months Reason:dm2 3 mo. checkup VITAL SIGNS Height 69 in 2017-02-24 Weight 248.2 lbs 2017-02-24 Temperature 98.2 degrees Fahrenheit 2017-02-24 Heart Rate 84 bpm 2017-02-24 Respiratory Rate 20 2017-02-24 BMI 36.65 kg/m2 2017-02-24 Blood pressure systolic 126 mmHg 2017-02-24 Blood pressure diastolic 66 mmHg 2017-02-24 MEDICATIONS Medication Instructions Dosage Frequency Start Date End Date Duration Status Ipratropium-Albuterol 0.5-2.5 (3) MG/3ML Inhalation every 6 hrs 3 ml 6h Active FreeStyle Lite Test - In Vitro 2 times a day test blood sugar 12h Sep, Active Zyrtec Allergy 10 1 tablet 24h Active Atorvastatin Calcium 40 MG TAKE ONE TABLET BY MOUTH ONCE DAILY 30 Active Victoza 18 MG/3ML Subcutaneous Once a day 1.2 mg 24h October, Active Amlodipine Besylate 10 mg 1 tablet 24h 30 Active Klor-Con 10 10 MEQ Orally Once a day 1 tablet with food 24h Active Montelukast Sodium 10 MG Orally Once a day 1 tablet in the evening 24h Active Vitamin D 1000 UNIT Orally Once a day 1 tablet 24h Active Losartan Potassium 50 MG TAKE ONE TABLET BY MOUTH ONCE DAILY 30 Active Pen [place] 31G X 6 MM use with victoza pens 15 Nov, 2016 90 days Active MetFORMIN HCl ER 500 MG Orally twice a day 2 tablets 12h 30 Active C-PAP Machine Active Aspirin 81 TAKE ONE TABLET BY MOUTH DAILY 30 Active [place] 7.5-325 MG Orally 4 times a day 1 tablet as needed 6h 14 Jan, 2017 28 days Active Nebulizer - Active Flonase 50 MCG/ACT Nasally Once a day 1 spray in each nostril 24h Active GlipiZIDE 10 2 tablets 12h Active Lasix 20 mg Orally Once a day 1 tablet 24h Aug, 07 days Active Blood Pressure Cuff Dx: Hypertension Mar, Active RESULTS Name Result Date Reference Range A1C (IN HOUSE) 2017-02-24 A1C IN HOUSE 7.6 4.3 - 5.6 % Previous A1c 9.3 Lot 0723 Exp date 10/2018 PROCEDURES Procedure Date Ordered Result Body Site GLYCATED HEMOGLOBIN TEST Feb 24, 2017 INSTRUCTIONS MEDICATIONS ADMINISTERED No Known Medications MEDICAL [...]
--- OUTSIDE RECORDS SUMMARY | 2017-11-01 08:12 | XMS REPORT ---
Author Author BOOGIE ARAUJO [facility] e[employer] Address Unknown Phone Unavailable Care Team Providers Care Veterinary Bacteriologist Name Role Phone BOOGIE ARAUJO CP Unavailable [...] Instructions Start Date End Date Status Dosage [facility] [address]-30 7.5-325 MG Orally 3 times a day May 06, 2015 1 tablet as needed Results No Known Results Summary Purpose eClinicalWorks Submission
--- OUTSIDE RECORDS SUMMARY | 2017-11-01 08:12 | XMS REPORT ---
Author Author ANGEL RIDLEY [facility] Address [address] [place] [address] Care Team Providers Care Electrical Intern Name Role Phone ANGEL RIDLEY Unavailable PROBLEMS Type Condition ICD9-CM Code [id number] Code Onset Dates Condition Status SNOMED Code Problem Thyroid nodule E04.1 Active 865424986 Problem 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, controlled E11.9 Active 52507634 Problem Screening breast examination Z12.39 Active 209518704 Problem Allergic rhinitis, unspecified allergic rhinitis trigger, unspecified rhinitis seasonality J30.9 Active 97262306 Problem History of abnormal cervical Pap smear Z87.898 Active 484497081 Problem History of colon polyps Z86.010 Active 579990076 Problem Thoracogenic scoliosis of thoracolumbar region M41.35 Active 63038950 Problem Uncontrolled type 2 diabetes mellitus without complication, without long-term current use of insulin E11.65 Active 911120918 ALLERGIES Substance Reaction Event Type Date Status Diclofenac rash Drug Allergy Jun, Active Trilipix Unknown Drug Allergy Jun, Active Simcor chest pain, due to high doses of niacin in the simcor Drug Allergy Jun, Active Meloxicam elevated BG, fluid retention Drug Allergy Jun, Active Hydrochlorothiazide Unknown Drug Allergy Jun, Active Dimetapp Maximum Strength Unknown Drug Allergy Jun, Active BusPIRone HCl dizziness Drug Allergy Jun, Active Augmentin Unknown Drug Allergy Jun, Active SOCIAL HISTORY No smoking Hx information available PLAN OF CARE Activity Details Follow Up regular fu with pcp Reason: VITAL SIGNS Height 69 in 2016-07-07 Weight 249.1 lbs 2016-07-07 Temperature 97.9 degrees Fahrenheit 2016-07-07 Heart Rate 96 bpm 2016-07-07 Respiratory Rate 20 2016-07-07 BMI 36.78 kg/m2 2016-07-07 Blood pressure systolic 140 mmHg 2016-07-07 Blood pressure diastolic 78 mmHg 2016-07-07 MEDICATIONS Medication Instructions Dosage Frequency Start Date End Date Duration Status Atorvastatin Calcium 40 MG TAKE ONE TABLET BY MOUTH ONCE DAILY 30 Active Zyrtec Allergy 10 1 tablet 24h Active PredniSONE 10 MG Orally Once a day 1 tablet 24h Jun, Jun, 5 days Active [place] 7.5-325 MG Orally 3 times a day 1 tablet as needed 8h Jun, 28 days Active Blood Pressure Cuff Dx: Hypertension Mar, Active Losartan Potassium 25 MG 1 tablet 24h Active GlipiZIDE 10 2 tablets 12h Active Aspirin 81 TAKE ONE TABLET BY MOUTH DAILY 30 Active Montelukast Sodium 10 MG Orally Once a day 1 tablet in the evening 24h Active Vitamin D 1000 UNIT Orally Once a day 1 tablet 24h Active Amlodipine Besylate 10 mg 1 tablet 24h Active MetFORMIN HCl ER 500 MG Orally twice a day 2 tablets 12h Mar, 30 day(s) Active Flonase 50 MCG/ACT Nasally Once a day 1 spray in each nostril 24h Active FreeStyle Test Test Strips TEST 1 TIME PER DAY 24h Active RESULTS Name Result Date Reference Range Mammogram, Bilateral Screening Mammogram, Bilateral Screening 2016-07-21 PROCEDURES Procedure Date Ordered Related Diagnosis Body Site Office Visit, Est Pt., Level 4 Jul 07, 2016 IMMUNIZATIONS No Known Immunizations
--- OUTSIDE RECORDS SUMMARY | 2017-11-01 08:13 | XMS REPORT ---
Author Author BOOGIE ARAUJO Organization [facility] Address [address] [place] [address] Care Team Providers Care Server Service Assistant Name Role Phone BOOGIE ARAUJO Unavailable PROBLEMS Type Condition ICD9-CM Code AQY53-KG Code Onset Dates Condition Status SNOMED Code Problem 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, controlled E11.9 Active 73864265 Problem History of abnormal cervical Pap smear Z87.898 Active 018969471 Problem History of colon polyps Z86.010 Active 570118538 Problem Other chronic pain G89.29 Active 80810276 Problem Screening breast examination Z12.39 Active 386207311 Problem Uncontrolled type 2 diabetes mellitus without complication, without long-term current use of insulin E11.65 Active 832423301 Problem Thyroid nodule E04.1 Active 238358282 Problem Allergic rhinitis, unspecified allergic rhinitis trigger, unspecified rhinitis seasonality J30.9 Active 78911975 Problem Thoracogenic scoliosis of thoracolumbar region M41.35 Active 50153257 ALLERGIES No Information ENCOUNTERS Encounter Location Date Diagnosis [facility] [id number] [place] [address] 48605- 7367 02 Sep, 2017 [facility] [id number] [place] [address] 96281- 4044 Aug, Other chronic pain G89.29 [facility] [id number] [place] [address] 42793- 2932 Jul, Other chronic pain G89.29 [facility] [address] 9[address]68- 3483 16 Jul, 2017 Pneumonia of left lower lobe due to infectious organism J18.1 [facility] [id number] [place] [address] 06334 -6584 12 Jul, 2017 Dysuria R30.0 ; Cough in adult patient R05 and Pneumonia of left lower lobe due to infectious organism J18.1 [facility] [address], [place] [address]- 0[address] Jul, [facility] [id number] [place] [address] 92513- 5795 Jun, Other chronic pain G89.29 [facility] [id number] [place] [address] 95900- 8093 Jun, [facility] [id number] [place] [address] 88086- 6819 Jun, 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, controlled E11.9 ; Back muscle spasm M62.830 and Other chronic pain G89.29 [facility] [id number] [place] [address] 08328- 3814 Jun, Screening breast examination Z12.31 [facility] [id number] [place] [address] 37778- 0237 May, Other chronic pain G89.29 [facility] [address], [place] [address]- 4822 May, [facility] [id number] [place] [address] 20965- 1777 May, UTI (urinary tract infection) N39.0 [facility] [address], [place] [address]- 3104 May, Dysuria R30.0 [facility] [id number] [place] [address] 20147- 4510 May, Dysuria R30.0 [facility] [id number] [place] [address] 55671- 4047 04 May, 2017 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, controlled E11.9 ; 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 and Other chronic pain G89.29 [facility] [address], [place] [address]- 4016 Apr, 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, controlled E11.9 [facility] [address], [place] [address] 30 Mar, 2017 Paronychia of great toe, right L03.031 and Dysuria R30.0 [facility] [address], [place] [address]- 5562 09 Mar, 2017 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, controlled E11.9 [facility] [id number] [place] [address] 48211- 5728 28 Feb, 2017 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, controlled E11.9 [facility] [id number] [place] [address] [id number] 13 Feb, 2017 Dental examination Z01.20 [facility] [id number] [place] [address] 69359- 5166 11 Feb, 2017 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, controlled E11.9 [facility] [id number] [place] [address] 59845- 0688 07 Feb, 2017 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, controlled E11.9 [facility] [id number] [place] [address] 16920- 4411 Jan, 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, controlled E11.9 [facility] [id number] [place] [address] 79654- 4074 Dec, 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, controlled E11.9 [facility] [id number] [place] [address] 97312- 3320 Dec, 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, controlled E11.9 [facility] [id number] [place] [address] 53880- 5438 Nov, 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, controlled E11.9 [facility] [id number] [place] [address] 13479- 4350 Nov, 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, controlled E11.9 [facility] [id number] [place] [address] 29221- 0935 Nov, 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, controlled E11.9 [facility] [id number] [place] [address] 25478- 5208 19 Nov, 2016 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, controlled E11.9 [facility] [id number] [place] [address] 53403- 5049 14 Nov, 2016 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, controlled E11.9 [facility] [id number] [place] [address] 91531- 9578 Nov, 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, controlled E11.9 [facility] [id number] [place] [address] 42180- 9983 October, Pain in unspecified shoulder M25.519 [facility] [id number] [place] [address] 27242- 3063 October, 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, controlled E11.9 and Cellulitis of right lower extremity L03.115 [facility] [id number] [place] [address] 95587- 5770 October, Pain in unspecified shoulder M25.519 [facility] [id number] [place] [address] 10561- 3226 Sep, 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, controlled E11.9 [facility] [id number] [place] [address] 73419- 4211 Aug, Pain in unspecified shoulder M25.519 [facility] [id number] [place] [address] 84757- 1048 Aug, 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, controlled E11.9 [facility] [id number] [place] [address] 62163- 6261 Aug, 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, controlled E11.9 ; Dark urine R82.99 and Localized edema R60.0 [facility] [id number] [place] [address] 03118- 9947 Aug, Pain in unspecified shoulder M25.519 [facility] [id number] [place] [address] 56613- 6827 Jul, Pain in unspecified shoulder M25.519 [facility] [id number] [place] [address] 13133- 6628 06 Jul, 2016 [facility] [id number] [place] [address] 54006- 1698 02 Jul, 2016 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, controlled E11.9 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 [facility] [id number] [place] [address] 74842- 4189 Jun, 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, controlled E11.9 [facility] [id number] [place] [address] 33436- 4684 18 Jun, 2016 Screening breast examination Z12.39 and Allergic rhinitis, unspecified allergic rhinitis trigger, unspecified rhinitis seasonality J30.9 [facility] [id number] [place] [address] 11189- 8791 10 Jun, 2016 Pain in unspecified shoulder M25.519 [facility] [address] 63401- 9379 May, [facility] [id number] [place] [address] 32133- 2275 May, Pain in unspecified shoulder M25.519 [facility] [id number] [place] [address] 79905- 7884 05 May, 2016 Thoracogenic scoliosis of thoracolumbar region M41.35 ; Low back pain M54.5 ; Other chronic pain G89.29 and Uncontrolled type 2 diabetes mellitus without complication, without long-term current use of insulin E11.65 [facility] [id number] [place] [address] 68323- 6964 Apr, [facility] [address] 12487- 6538 15 Apr, 2016 [facility] [id number] [place] [address] 08350- 0136 04 Apr, 2016 History of type 2 diabetes mellitus Z86.39 and Encounter for immunization Z23 [facility] [address] [place] [address]- 6977 Mar, [facility] [id number] [place] [address], [place] [address]- 7243 Mar, [facility] [id number] [place] [address]- 2449 Feb, [facility] [id number] [place] [address], [place] [address]- 4110 Jan, [facility] [id number] [place] [address], [place] [address]- 8689 Jan, [facility] [id number] [place] [address], [place] [address]- 8780 Dec, [facility] [address], [place] [address] -9902 Dec, Sore throat J02.9 and Allergic rhinitis, unspecified allergic rhinitis type J30.9 [facility] [address], [place] [address]- 6568 Dec, 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, controlled E11.9 [facility] [id number] [place] [address], [place] [address]- 2101 Nov, [facility] [address], [place] [address]- 4139 Nov, [facility] [address], [place] [address]- 9223 October, [facility] [address], [place] [address]- 2937 October, [facility] [id number] [place] [address], [place] 9061 Sep, [facility] [id number] [place] [address]- 1961 Aug, [facility] [address] [place] [address] 745525- 9738 Aug, 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, controlled E11.9 ; UTI (urinary tract infection) N39.0 and Bacterial infection A49.9 [facility] [address] [place] [address] 59594- 6182 Jul, [facility] [address] [place] [address] 35196- 4510 Jul, [facility] [address] 61357- 5081 Jul, Pharyngitis J02.9 and Seborrheic keratoses L82.1 [facility] [id number] [place] [address] 64953- 0758 Jun, [facility] [id number] [place] [address] 42405- 5234 May, [facility] [id number] [place] [address] 99184- 4825 May, Skin tags, multiple acquired L91.8 ; Seborrheic keratoses L82.1 and 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, controlled E11.9 [facility] [address] [place] [address] 83018- 3122 May, Well woman exam Z01.419 ; Papanicolaou [...] Other fatigue R53.83 and Other hemorrhoids K64.8 [facility] [address] [place] [address] 01542- 8943 May, [facility] [address] [place] [address] 01780- 7658 May, [facility] [id number] [place] [address] 13138- 6294 Apr, Seborrheic keratosis L82.1 and 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, controlled E11.9 [facility] [id number] [place] [address] 43177- 3089 Apr, Seborrheic keratosis L82.1 and 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, controlled E11.9 [facility] [id number] [place] [address] 05503- 5856 Mar, [facility] [id number] [place] [address] 51818- 1487 Mar, [facility] [id number] [place] [address] 63390- 8878 Mar, Nevoid hyperpigmentation L81.9 ; Encounter for immunization Z23 ; Skin tags, multiple acquired L91.8 and Seborrheic keratoses L82.1 [facility] [id number] [place] [address] 56428- 8614 Feb, [facility] [id number] [place] [address] 49339- 1314 Feb, [facility] [id number] [place] [address] 53459- 8103 Feb, [facility] [id number] [place] [address] 21738- 4644 Feb, Diabetes 250.00 ; Tinea corporis 110.5 and Shoulder pain, left 719.41 [facility] [id number] [place] [address] 74655- 7738 Jan, [facility] [address] 74024- 8468 Dec, [facility] [id number] [place] [address] 93427- 3794 Dec, [facility] [id number] [place] [address] 24267- 3882 Dec, Seborrheic keratoses 702.19 ; Diabetes 250.00 and Hypoglycemia 251.2 [facility] [address] 8112 Nov, [facility] [id number] [address]- 0053 Nov, Abnormal mammogram 793.80 [facility] [id number] [place] [address] 61991- 4767 October, Diabetes 250.00 and Colon polyp 211.3 [facility] [address], [place] [address]- 9591 Sep, [facility] [id number] [place] [address] 08990- 9417 Sep, [facility] [address], [place] [address]- 7281 Sep, [facility] [address], [place] [address]- 2670 Aug, [facility] [address], [place] [address]- 0324 Aug, [facility] [address], [place] [address]- 8975 Jul, [facility] [address], [place] [address]- 3642 Jul, [facility] [address], [place] [address]- 5907 Jun, [facility] [address], [place] [address]- 4916 Jun, [facility] [address], [place] [address]- 7346 Jun, [facility] [id number] [address]- 5806 Jun, [facility] [id number] [place] [address]- 3611 Jun, [facility] [address] [id number] [place] [address]- 4988 Jun, [facility] [place] [facility] [address] [id number] [place] [address]- 1466 May, [facility] [place] [facility] [address] [id number] [place] [address]- 3005 May, [facility] [place] [facility] [address] [id number] [place] [address]- 9702 Apr, [facility] [place] [facility] [address] [id number] [place] [address]- 7034 Apr, [facility] [place] [facility] [address] [id number] [place] [address]- 7577 Apr, [facility] [place] [facility] [address] [id number] [place] [address]- 5030 Apr, [facility] [place] [facility] [address] [id number] [place] [address]- 5281 Apr, [facility] [place] [facility] [address] [id number] [place] [address]- 4784 Apr, [facility] [place] [facility] [address] [id number] [place] [address]- 9391 Apr, [facility] [place] [facility] [address] [id number] [place] [address]- 9411 Apr, [facility] [place] [facility] [address] [id number] [place] [address]- 9437 Apr, [facility] [place] [facility] [address] [id number] [place] [address]- 0443 Apr, [facility] [place] [facility] [address] [id number] [place] [address]- 9086 Mar, [facility] [place] [facility] [address] [id number] [place] [address]- 0288 Mar, [facility] [place] [facility] [address] [id number] [place] [address]- 2111 Mar, [facility] [place] [facility] [address] [id number] [place] [address]- 2977 Mar, [facility] [place] [facility] [address] [id number] [place] [address]- 1405 Mar, [facility] [place] [facility] [address] [id number] [place] [address]- 5190 Mar, [facility] [place] [facility] [address] [id number] [place] [address]- 3954 Mar, [facility] [place] [facility] [address] [id number] [place] [address]- 2024 Mar, [facility] [place] [facility] [address] [id number] [place] [address]- 0648 Feb, [facility] [place] [facility] [address] [id number] [place] [address]- 0230 Feb, [facility] [place] [facility] [address] [id number] [place] [address]- 6129 Feb, [facility] [place] [facility] [address] [id number] [place] [address]- 8475 Feb, [facility] [place] [facility] [address] [id number] [place] [address]- 2528 Jan, [facility] [place] [facility] [address] [id number] [address]- 4316 Jan, [facility] [place] [facility] [address] [id number] [place] [address]- 7846 Dec, [facility] [place] [facility] [address] [id number] [place] 0213 Dec, [facility] [place] [facility] [address] [id number] [place] 9605 Nov, [facility] [place] [facility] [address] [id number], [place] [address]- 4842 Nov, [facility] [address] [id number] [place] [address]- 7886 Nov, [facility] [place] [facility] [address] [id number] [place] [address]- 9063 Nov, [facility] [place] [facility] [address] [id number] [place] [address]- 7394 October, [facility] [place] [facility] [address] [id number] [place] [address]- 2662 October, [facility] [place] [facility] [address] [id number] [place] [address]- 3008 October, [facility] [place] [facility] [address] [id number] [place] [address]- 5247 October, [facility] [place] [facility] [address] [id number] [place] [address]- 3867 October, [facility] [place] [facility] [address] [id number] [place] [address]- 6397 October, [facility] [place] [facility] [address] [id number] [place] [address]- 4530 October, [facility] [place] [facility] [address] [id number] [place] [address]- 7993 October, [facility] [place] [facility] [address] [id number] [place] [address]- 9878 Aug, [facility] [place] [facility] [address] [id number] [place] [address]- 6237 Aug, [facility] [place] [facility] [address] [id number] [place] [address]- 4817 Jul, [facility] [place] [facility] [address] [id number] [place] [address]- 0246 Jul, [facility] [place] [facility] [address] [id number] [place] [address]- 2000 Jul, [facility] [place] [facility] [address] [id number] [place] [address]- 8924 Jul, [facility] [place] [facility] [address] [id number] [place] [address]- 0135 Jul, [facility] [place] [facility] [address] [id number] [place] [address]- 5527 Jun, [facility] [place] [facility] [address] [id number] [place] [address]- 4242 Jun, [facility] [place] [facility] [address] [id number] [place] [address]- 6096 May, [facility] [place] [facility] [address] [id number] [place] [address]- 7888 May, [facility] [place] [facility] [address] [id number] [place] [address]- 5831 Apr, [facility] [place] [facility] [address] [id number] [place] [address]- 3360 Apr, [facility] [place] [facility] [address] [id number] [place] [address]- 5100 Mar, [facility] [place] [facility] [address] [id number] [place] [address]- 8247 Mar, [facility] [place] [facility] [address] [id number] [place] [address]- 3988 Mar, [facility] [place] [facility] [address] [id number], [place] [address]- 8763 Feb, [facility] [place] [facility] [address] [id number] [place] [address]- 1168 20 Feb, 2013 [facility] [place] [facility] [address] [id number] [place] [address]- 5449 17 Feb, 2013 [facility] [place] [facility] [address] [id number] [place] [address]- 2481 04 Feb, 2013 [facility] [place] [facility] [address] [id number] [place] [address]- 9266 Feb, [facility] [address] [id number] [place] [address]- 7625 Jan, [facility] [place] [facility] [address] [id number] [place] [address]- 0426 Dec, [facility] [place] [facility] [address] [id number] [place] [address] Nov, [facility] [place] [facility] [address] [id number] [place] [address] October, [facility] [address] [id number] [place] [address] Sep, [facility] [place] [facility] [address] [id number] [place] [address] Aug, [facility] [place] [facility] [address] [id number] [place] [address] Aug, [facility] [place] [facility] [address] [id number] [place] [address] Aug, [facility] [address] [id number] [place] [address] May, [facility] [place] [facility] [address] [id number] [place] [address] May, [facility] [place] [facility] [address] [id number] [place] [address] May, [facility] [place] [facility] [address] [id number] [place] [address] May, [facility] [place] [facility] [address] [id number] [place] [address] May, [facility] [place] [facility] [address] [id number] [place] [address] Apr, [facility] [place] [facility] [address] [id number] [place] [address] Apr, [facility] [place] [facility] [address] [id number] [place] [address] 14 Apr, 2012 [facility] [place] [facility] [address] [id number] [place] [address] 14 Apr, 2012 [facility] [place] [facility] [address] [id number] [place] [address] 07 Apr, 2012 [facility] [place] [facility] [address] [id number] [place] [address] 07 Apr, 2012 [facility] [place] [facility] [address] [id number] [place] [address] Apr, [facility] [place] [facility] [address] [id number] [place] [address], [place] [address] Apr, [facility] [place] [facility] [address] [id number] [place] [address] Mar, [facility] [place] [facility] [address] [id number] [place] [address] Mar, [facility] [place] [facility] [address] [id number] [place] [address] Mar, [facility] [place] [facility] [address] [facility] [id number] [place] [address] Mar, [facility] [place] [facility] [address] [facility] [id number] [place] [address] Mar, [facility] [place] [facility] [address] [id number] [place] [address] Mar, [facility] [place] [facility] [address] [id number] [place] [address] 2012 Mar, [facility] [place] [facility] [address] [id number] [place] [address] 28 Feb, 2012 [facility] [place] [facility] [address] [id number] [place] [address] 24 Feb, 2012 [facility] [place] [facility] [address] [id number] [place] [address] Feb, [facility] [place] [facility] [address] [id number] [place] [address] Feb, [facility] [place] [facility] [address] [id number] [place] [address] Jan, [facility] [place] [facility] [address] [id number] [place] [address] Jan, [facility] [place] [facility] [address] [id number] [place] [address] Jan, [facility] [place] [facility] [address] [id number] [place] [address] Jan, [facility] [place] [facility] [address] [id number] [place] [address] Jan, [facility] [place] [facility] [address] [id number] [place] [address] 70[address] Jan, [facility] [place] [facility] [address] [id number] [place] [address] 1534 Dec, [facility] [place] [facility] [address] [id number] [place] [address] Dec, [facility] [place] [facility] [address] [id number] [place] [address] Dec, [facility] [place] [facility] [address] [id number] [place] [address] Dec, [facility] [place] [facility] [address] [id number] [place] [address]- 35[address] Dec, [facility] [place] [facility] [address] [id number] [place] [address] Dec, [facility] [place] [facility] [address] [id number] [place] [address] Dec, [facility] [place] [facility] [address] [id number] [place] [address] Dec, [facility] [place] [facility] [address] [id number] [place] [address] Nov, [facility] [address] [id number] [place] [address] Nov, [facility] [place] [facility] [address] [id number] [place] [address] Nov, [facility] [place] [facility] [address] [facility] [id number] [place] [address] Nov, [facility] [place] [facility] [address] [id number] [place] [address] October, [facility] [place] [facility] [address] [id number] [place] [address] October, [facility] [place] [facility] [address] [id number] [place] [address] Sep, [facility] [place] [facility] [address] [id number] [place] [address] Sep, [facility] [place] [facility] [address] [facility] [id number] [place] [address] Aug, [facility] [place] [facility] [address] [facility] [id number] [place] [address] 16 Aug, 2011 [facility] [place] [facility] [address] [facility] [id number] [place] [address] Aug, [facility] [place] [facility] [address] [facility] [id number] [place] [address] Aug, [facility] [place] [facility] [address] [facility] [id number] [place] [address] 05 Aug, 2011 [facility] [place] [facility] [address] [id number] [place] [address] 08 Jul, 2011 [facility] [place] [facility] [address] [facility] [id number] [place] [address] 06 Jul, 2011 [facility] [place] [facility] [address] [facility] [id number] [place] [address] Jul, [facility] [place] [facility] [address] [id number] [place] [address] Jul, [facility] [address] [id number] [place] [address] Jun, [facility] [place] [facility] [address] [id number] [place] [address] Jun, [facility] [address] [id number] [place] [address] Jun, [facility] [address] [id number] [place] [address] Jun, [facility] [place] [facility] [address] [id number] [place] [address] Jun, [facility] [address] [id number] [place] [address] May, [facility] [address] [id number] [place] [address] May, [facility] [place] [facility] [address] [id number] [place] [address] May, [facility] [place] [facility] [address] [id number] [place] [address] May, [facility] [place] [facility] [address] [id number] [place] [address] May, [facility] [place] [facility] [address] [id number] [place] [address] May, [facility] [place] [facility] [address] [id number] [place] [address] Apr, [facility] [place] [facility] [address] [id number] [place] [address] Apr, [facility] [place] [facility] [address] [id number] [place] [address] Mar, [facility] [place] [facility] [address] [id number] [address] Mar, [facility] [address] [id number] [address] October, [facility] [id number] [address] May, [facility] [id number], [place] [address] Apr, [facility] [id number] [address] Jul, [facility] [id number] [address] May, [facility] [id number] [place] [address] May, [facility] [id number] [place] [address] May, [facility] [id number] [place] [address]- [address] Apr, [facility] [id number] [place] [address]- [address] Apr, [facility] [id number], [place] [address] Mar, [facility] [address] [id number] [address] Jan, [facility] [id number], [place] [address] Nov, IMMUNIZATIONS No Known Immunizations SOCIAL HISTORY Never Assessed REASON FOR VISIT Requests return call PLAN OF CARE VITAL SIGNS MEDICATIONS Medication [...]
--- OUTSIDE RECORDS SUMMARY | 2017-11-01 08:13 | XMS REPORT ---
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 Role Phone BOOGIE ARAUJO Unavailable PROBLEMS Type Condition ICD9-CM Code [id number] Code Onset Dates Condition Status SNOMED Code Problem Thyroid nodule E04.1 Active 872768890 Problem History of abnormal cervical Pap smear Z87.898 Active 898177218 Problem History of colon polyps Z86.010 Active 026679475 Problem 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, controlled E11.9 Active 64925563 Problem Controlled type 2 diabetes mellitus without complication, without long -term current use of insulin E11.9 Active 029020535 Problem Other chronic pain G89.29 Active 57136233 Problem Thoracogenic scoliosis of thoracolumbar region M41.35 Active 09377513 Problem Uncontrolled type 2 diabetes mellitus without complication, without long-term current use of insulin E11.65 Active 000282532 Problem Screening breast examination Z12.39 Active 809263163 Problem Allergic rhinitis, unspecified allergic rhinitis trigger, unspecified rhinitis seasonality J30.9 Active 16552820 ALLERGIES No Information ENCOUNTERS Encounter Location Date Diagnosis [place] [id number] [place] [address] 69152- 5464 Sep, [place] [address] [place] [id number] [place] [address] 23536- 5296 Sep, Controlled type 2 diabetes mellitus without complication, without long-term current use of insulin E11.9 ; Leg cramps R25.2 ; Low back pain M54.5 and Other chronic pain G89.29 [place] [id number] [place] [address] 39814- 3902 Sep, Controlled type 2 diabetes mellitus without complication, without long-term current use of insulin E11.9 ; Low back pain M54.5 ; Other chronic pain G89.29 and Leg cramps R25.2 [facility] [place] [address] [address] Aug, Other chronic pain G89.29 [facility] [place] [address] [place] [address] 22944- 3286 Jul, Other chronic pain G89.29 [facility] [place] [address] [address] 2[address] 16 Jul, 2017 Pneumonia of left lower lobe due to infectious organism J18.1 [facility] [address] [address] Jul, Dysuria R30.0 ; Cough in adult patient R05 and Pneumonia of left lower lobe due to infectious organism J18.1 [facility] [place] [address] [address] 69[address] Jul, [facility] [place] [address] [place] [id number] [place] [address] 52958- 0432 Jun, Other chronic pain G89.29 [facility] [place] [id number] [place] [address] 46105- 2344 Jun, [facility] [place] [id number] [place] [address] 49390- 8483 Jun, 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, controlled E11.9 ; Back muscle spasm M62.830 and Other chronic pain G89.29 [facility] [place] [address] [place] [address] 40362- 8834 Jun, Screening breast examination Z12.31 [facility] [place] [address] [address] 7987 May, Other chronic pain G89.29 [facility] [place] [address] [place] [address] 58089- 0187 May, [facility] [place] [address] [address]- 2869 May, UTI (urinary tract infection) N39.0 [facility] [place] [address] [address]- 0379 04 May, 2017 Dysuria R30.0 [facility] [place] [id number] [place] [address] 52722- 7439 04 May, 2017 Dysuria R30.0 [facility] [place] [address] [id number] [place] [address] 49612- 4006 04 May, 2017 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, controlled E11.9 ; senior living current use of 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 Z79.891 and Other chronic pain G89.29 [facility] [place] [address] [place] [address] 11176- 0579 Apr, 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, controlled E11.9 [facility] [id number] [place] [address] 84757 -7997 Mar, Paronychia of great toe, right L03.031 and Dysuria R30.0 [facility] [place] [address] [place] [address] 95199- 7932 Mar, 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, controlled E11.9 [facility] [place] [address] [id number] [place] [address] 32877- 8809 28 Feb, 2017 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, controlled E11.9 [facility] [address] [place] [address] [id number] 13 Feb, 2017 Dental examination Z01.20 [facility] [place] [address] [place] [address] 21740- 6218 11 Feb, 2017 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, controlled E11.9 [facility] [place] [address] [place] [address] 15652- 3127 07 Feb, 2017 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, controlled E11.9 [facility] [place] [address] [place] [address] 58297- 2906 14 Jan, 2017 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, controlled E11.9 [facility] [place] [address] [place] [id number] [place] [address] 39469- 5174 Dec, 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, controlled E11.9 [facility] [place] [address] [address]- 3248 Dec, 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, controlled E11.9 [facility] [place] [address] [address]- 8605 Nov, 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, controlled E11.9 [facility] [place] [address] [id number] [place] [address] 99398- 3369 Nov, 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, controlled E11.9 [facility] [place] [address] [place] [id number] [address]- 5733 Nov, 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, controlled E11.9 [facility] [place] [address] [place] [id number] [place] [address] 10600- 0100 Nov, 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, controlled E11.9 [facility] [place] [address] [id number] [place] [address] 14717- 4705 Nov, 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, controlled E11.9 [facility] [place] [address] [place] [address] 52819- 5317 Nov, 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, controlled E11.9 [facility] [place] [address] [place] [address] 49792- 1675 October, Pain in unspecified shoulder M25.519 [facility] [place] [address] [address]- 3374 October, 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, controlled E11.9 and Cellulitis of right lower extremity L03.115 [facility] [place] [address] [address]- 4268 October, Pain in unspecified shoulder M25.519 [facility] [place] [address] [id number] [place] [address] 40694- 7735 Sep, 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, controlled E11.9 [facility] [place] [address] [address]- 1269 Aug, Pain in unspecified shoulder M25.519 [place] [address] [place] [id number] [place] [address] 40345- 2782 Aug, Diabetes type 2, controlled E11.9 [place] [address] [place] [id number] [place] [address] 84237- 5819 Aug, Diabetes type 2, controlled E11.9 ; Dark urine R82.99 and Localized edema R60.0 [place] [address] [place] [id number] [place] [address] 90786- 4452 Aug, Pain in unspecified shoulder M25.519 [place] [address] [place] [id number] [place] [address] 15678- 1394 07 Jul, 2016 Pain in unspecified shoulder M25.519 [place] [address] [place] [id number] [place] [address] 74200- 7264 06 Jul, 2016 [place] [address] 54472- 9477 Jul, Diabetes 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, controlled E11.9 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 [place] [address] [place] [id number] [place] [address] 54600- 5842 Jun, Diabetes type 2, controlled E11.9 [place] [address] [place] [id number] [place] [address] 37588- 9907 Jun, Screening breast examination Z12.39 and Allergic rhinitis, unspecified allergic rhinitis trigger, unspecified rhinitis seasonality J30.9 [place] [address] [place] [id number] [place] [address] 61963- 7980 10 Jun, 2016 Pain in unspecified shoulder M25.519 [place] [address] [place] [id number] [place] [address] 15759- 1118 May, [place] [address] [place] [id number] [place] [address] 52915- 4834 May, Pain in unspecified shoulder M25.519 [place] [address] [place] [id number] [place] [address] 67950- 2147 May, Thoracogenic scoliosis of thoracolumbar region M41.35 ; Low back pain M54.5 ; Other chronic pain G89.29 and Uncontrolled type 2 diabetes mellitus without complication, without long-term current use of insulin E11.65 [facility] [place] [address] [place] [id number] [place] [address] 17027- 0055 Apr, [facility] [place] [address] [place] [id number] [place] [address] 82781- 0067 Apr, [facility] [place] [address] [id number] [place] [address] 71659- 9938 Apr, History of type 2 diabetes mellitus Z86.39 and Encounter for immunization Z23 [facility] [place] [address] [place] [id number] [place] [address] 74246- 9197 Mar, [facility] [place] [address] [id number] [place] [address] 41698- 8075 Mar, [facility] [place] [address] [id number] [place] [address] 34128- 6688 Feb, [facility] [place] [address] [id number] [place] [address] 89961- 8515 Jan, [facility] [place] [address] [place] [id number] [place] [address] 75613- 8169 Jan, [facility] [place] [address] [place] [id number] [place] [address] 00077- 8043 Dec, [facility] [address] [place] [id number] [place] [address] 61532 -2226 Dec, Sore throat J02.9 and Allergic rhinitis, unspecified allergic rhinitis type J30.9 [facility] [place] [address] [id number] [place] [address] 46075- 5533 Dec, Diabetes type 2, controlled E11.9 [facility] [place] [address] [place] [id number] [place] [address] 58280- 1316 Nov, [facility] [place] [address] [place] [address] [address]- 9550 Nov, [facility] [place] [address] [address]- 4274 October, [facility] [place] [address] [address]- 9288 October, [facility] [place] [address] [id number] [address]- 7395 Sep, [facility] [place] [address] [place] [id number] [address]- 0845 Aug, [facility] [place] [address] [place] [id number] [address]- 9418 Aug, Diabetes type 2, controlled E11.9 ; UTI (urinary tract infection) N39.0 and Bacterial infection A49.9 [facility] [place] [address] [address]- 9858 Jul, [facility] [place] [address] [address]- 6835 Jul, [facility] [place] [address] [address]- 6616 Jul, Pharyngitis J02.9 and Seborrheic keratoses L82.1 [facility] [place] [address] [place] [id number] [address]- 1052 Jun, [facility] [place] [address] [place] [address] [id number] [address]- 3215 May, [facility] [place] [address] [place] [address] [id number] [address]- 5482 May, Skin tags, multiple acquired L91.8 ; Seborrheic keratoses L82.1 and Diabetes type 2, controlled E11.9 [facility] [place] [address] [facility] [id number] [address]- 5581 May, Well woman exam Z01.419 ; Papanicolaou [...] Other fatigue R53.83 and Other hemorrhoids K64.[address] 55449- 0072 15 May, [address] 51690- 7691 May, [address] 18799- 9312 Apr, Seborrheic keratosis L82.1 and Diabetes type 2, controlled E11.[address] 14594- 3519 Apr, Seborrheic keratosis L82.1 and Diabetes type 2, controlled E11.[address] 33919- 5397 Mar, [address] 35558- 8545 Mar, [address] 16763- 5918 Mar, Nevoid hyperpigmentation L81.9 ; Encounter for immunization Z23 ; Skin tags, multiple acquired L91.8 and Seborrheic keratoses L82.[address] 01239- 0319 Feb, [address] 53090- 5885 Feb, [address] 31228- 6932 Feb, [facility] [place] [address] [address]- 0041 Feb, Diabetes 250.00 ; Tinea corporis 110.5 and Shoulder pain, left 719.41 [facility] [place] [address] [address]- 6365 Jan, [facility] [place] [address] [place] [id number] [place] [address] 15156- 4507 Dec, [facility] [place] [address] [place] [id number] [place] [address] [id number]- 7483 Dec, [facility] [place] [address] [id number] [place] [address] 11624- 3792 Dec, Seborrheic keratoses 702.19 ; Diabetes 250.00 and Hypoglycemia 251.2 [facility] [place] [address] [place] [address] [id number] [address]- 0186 Nov, [facility] [place] [address] [id number] [place] [address] 01617- 9568 Nov, Abnormal mammogram 793.80 [facility] [place] [address] [place] [id number] [place] [address] 998928- 0207 October, Diabetes 250.00 and Colon polyp 211.3 [facility] [place] [address] [address]- 5879 Sep, [facility] [place] [address] [address]- 7029 Sep, [facility] [place] [address] [address]- 3230 Sep, [facility] [place] [id number] [place] [address] 60487- 8236 Aug, [facility] [place] [address] [address]- 8576 Aug, [facility] [place] [address] [address]- 6437 Jul, [facility] [place] [facility] [address] [id number] [place] [address]- 6693 Jul, [facility] [place] [facility] [address] [id number] [place] [address]- 4124 Jun, [facility] [place] [facility] [address] [id number] [place] [address]- 8409 Jun, [facility] [place] [facility] [address] [id number] [place] [address]- 9979 Jun, [facility] [place] [facility] [address] [id number] [place] [address]- 9058 Jun, [facility] [place] [facility] [address] [id number] [place] [address]- 1053 Jun, [facility] [place] [facility] [address] [id number] [place] [address]- 6169 Jun, [facility] [place] [facility] [address] [id number] [place] [address]- 4460 May, [facility] [place] [facility] [address] [id number] [place] [address]- 8946 May, [facility] [place] [facility] [address] [id number] [address]- 9970 Apr, [facility] [place] [facility] [address] [id number] [place] [address]- 1633 Apr, [facility] [place] [facility] [address] [id number] [address]- 3983 Apr, [facility] [place] [facility] [address] [id number] [place] [address]- 4007 Apr, [facility] [place] [facility] [address] [id number] [place] [address]- 4080 Apr, [facility] [place] [facility] [address] [id number] [address]- 5890 Apr, [facility] [place] [facility] [address] [id number] [place] [address]- 5785 Apr, [facility] [place] [facility] [address] [id number] [place] [address]- 9107 Apr, [facility] [place] [facility] [address] [id number] [place] [address]- 1933 Apr, [facility] [place] [facility] [address] [id number] [place] [address]- 3363 Apr, [facility] [place] [facility] [address] [id number] [place] [address]- 3744 Mar, [facility] [place] [facility] [address] [id number] [place] [address]- 3845 Mar, [facility] [place] [facility] [address] [id number] [place] [address]- 7393 Mar, [facility] [place] [facility] [address] [id number] [place] [address]- 7576 Mar, [facility] [place] [facility] [address] [id number] [place] [address]- 5300 Mar, [facility] [place] [facility] [address] [id number] [place] [address]- 1621 Mar, [facility] [place] [facility] [address] [id number] [place] [address]- 2473 Mar, [facility] [place] [facility] [address] [id number] [place] [address]- 4353 Mar, [facility] [place] [facility] [address] [id number] [place] [address]- 1262 24 Feb, 2013 [facility] [place] [facility] [address] [id number] [place] [address]- 7169 24 Feb, 2014 [facility] [place] [facility] [address] [id number] [place] [address]- 2756 Feb, [facility] [place] [facility] [address] [id number] [place] [address]- 3773 02 Feb, 2014 [facility] [place] [facility] [address] [id number] [place] [address]- 6337 Jan, [facility] [place] [facility] [address] [id number] [place] [address]- 1470 Jan, [facility] [place] [facility] [address] [id number] [place] [address]- 5749 Dec, [facility] [place] [facility] [address] [id number] [place] [address]- 2190 Dec, [facility] [place] [facility] [address] [id number] [place] [address]- 6107 Nov, [facility] [place] [facility] [address] [id number] [place] [address]- 8205 Nov, [facility] [place] [facility] [address] [id number] [place] [address] Nov, [facility] [place] [facility] [address] [id number] [place] [address] Nov, [facility] [place] [facility] [address] [id number] [place] [address] October, [facility] [place] [facility] [address] [id number] [place] [address] October, [facility] [place] [facility] [address] [id number] [place] [address] October, [facility] [place] [facility] [address] [id number] [place] [address] October, [facility] [place] [facility] [address] [id number] [place] [address] October, [facility] [place] [facility] [address] [id number] [place] [address] October, [facility] [place] [facility] [address] [id number] [place] [address] October, [facility] [place] [facility] [address] [id number] [place] [address] October, [facility] [address] [id number] [place] [address] Aug, [facility] [place] [facility] [address] [id number] [place] [address] Aug, [facility] [place] [facility] [address] [facility] [id number] [place] [address] Jul, [facility] [place] [facility] [address] [id number] [place] [address] Jul, [facility] [place] [facility] [address] [id number] [place] [address] Jul, [facility] [place] [facility] [address] [facility] [id number] [place] [address] Jul, [facility] [place] [facility] [address] [facility] [id number] [place] [address] Jul, [facility] [place] [facility] [address] [facility] [id number] [place] [address] Jun, [facility] [place] [facility] [address] [facility] [id number] [place] [address] Jun, [facility] [place] [facility] [address] [facility] [id number] [place] [address] May, [facility] [place] [facility] [address] [facility] [id number] [place] [address] May, [facility] [place] [facility] [address] [facility] [id number] [address] Apr, [facility] [place] [facility] [address] [id number] [place] [address] Apr, [facility] [place] [facility] [address] [facility] [id number] [place] [address] Mar, [facility] [place] [facility] [address] [facility] [id number] [place] [address] Mar, [facility] [place] [facility] [address] [id number] [place] [address] 04 Mar, 2013 [facility] [place] [facility] [address] [id number] [place] [address] 20 Feb, 2013 [facility] [place] [facility] [address] [id number] [place] [address] 20 Feb, 2013 [facility] [place] [facility] [address] [id number] [place] [address] 17 Feb, 2013 [facility] [place] [facility] [address] [id number] [place] [address] 04 Feb, 2013 [facility] [place] [facility] [address] [id number] [place] [address] 04 Feb, 2013 [facility] [place] [facility] [address] [id number] [place] [address] Jan, [facility] [place] [facility] [address] [id number] [place] [address] Dec, [facility] [place] [facility] [address] [id number] [place] [address] Nov, [facility] [place] [facility] [address] [id number] [place] [address] October, [facility] [place] [facility] [address] [id number] [place] [address] Sep, [facility] [place] [facility] [address] [id number] [place] [address] Aug, [facility] [place] [facility] [address] [id number] [place] [address] Aug, [facility] [place] [facility] [address] [id number] [place] [address] Aug, [facility] [place] [facility] [address] [id number] [place] [address] May, [facility] [place] [facility] [address] [id number] [place] [address] May, [facility] [place] [facility] [address] [id number] [place] [address] 12 May, 2012 [facility] [place] [facility] [address] [id number] [place] [address] May, [facility] [place] [facility] [address] [facility] [id number] [place] [address] May, [facility] [place] [facility] [address] [id number] [place] [address] Apr, [facility] [place] [facility] [address] [id number] [place] [address] 16 Apr, 2012 [facility] [place] [facility] [address] [id number] [place] [address] 8581 Apr, [facility] [place] [facility] [address] [id number] [place] [address] Apr, [facility] [place] [facility] [address] [id number] [address] Apr, [facility] [place] [facility] [address] [id number] [place] [address] Apr, [facility] [place] [facility] [address] [facility] [id number] [address] Apr, [facility] [place] [facility] [address] [id number] [place] [address] Apr, [facility] [place] [facility] [address] [id number] [address] Mar, [facility] [place] [facility] [address] [id number] [address] Mar, [facility] [place] [facility] [address] [id number] [place] [address] Mar, [facility] [place] [facility] [address] [facility] [id number] [address] Mar, [facility] [place] [facility] [address] [id number] [place] [address] Mar, [facility] [place] [facility] [address] [id number] [place] [address] Mar, [facility] [place] [facility] [address] [id number] [place] [address] Mar, [facility] [place] [facility] [address] [id number] [place] [address]196 Feb, [facility] [place] [facility] [address] [id number] [place] [address] 2546 24 Feb, 2012 [facility] [place] [facility] [address] [id number] [place] [address] Feb, [facility] [place] [facility] [address] [id number] [place] [address] Feb, [facility] [place] [facility] [address] [id number] [place] [address] Jan, [facility] [place] [facility] [address] [id number] [place] [address] 1579 Jan, [facility] [place] [facility] [address] [id number] [place] [address] Jan, [facility] [place] [facility] [address] [id number] [place] [address] 9314 Jan, [facility] [place] [facility] [address] [id number] [place] [address]206 Jan, [facility] [place] [facility] [address] [id number] [place] [address] 4360 Jan, [facility] [place] [facility] [address] [id number] [place] [address] 4291 Dec, [facility] [place] [facility] [address] [id number] [place] [address] 1816 Dec, [facility] [place] [facility] [address] [id number] [place] [address] Dec, [facility] [place] [facility] [address] [id number] [place] [address]281 Dec, [facility] [place] [facility] [address] [id number] [place] [address] Dec, [facility] [place] [facility] [address] [id number] [place] [address] 49[address] Dec, [facility] [place] [facility] [address] [id number] [place] [address]10 Dec, [facility] [address] [id number] [place] [address] Dec, [facility] [place] [facility] [address] [id number] [place] [address]797 Nov, [facility] [address] [id number] [place] [address] 7069 Nov, [facility] [address] [id number] [place] [address] Nov, [facility] [place] [facility] [address] [id number] [place] [address] 5630 Nov, [facility] [place] [facility] [address] [id number] [place] [address] October, [facility] [place] [facility] [address] [id number] [place] [address] October, [facility] [place] [facility] [address] [id number] [place] [address] 30 Sep, 2011 [facility] [place] [facility] [address] [id number] [place] [address] 4432 Sep, [facility] [place] [facility] [address] [id number] [place] [address] 1596 27 Aug, 2011 [facility] [place] [facility] [address] [id number] [place] [address] 8438 16 Aug, 2011 [facility] [place] [facility] [address] [id number] [place] [address] 7742 Aug, [facility] [address] [id number] [place] [address] 4876 Aug, [facility] [address] [id number] [place] [address] 2536 Aug, [facility] [address] [id number] [place] [address]- 2496 08 Jul, 2011 [facility] [place] [facility] [address] [id number] [place] [address]- 2433 Jul, [facility] [address] [id number] [place] [address] 2501 Jul, [facility] [address] [id number] [place] [address]- 4544 Jul, [facility] [address] [facility] [id number] [place] [address]- 9480 Jun, [facility] [address] [id number] [place] [address]- 3817 Jun, [facility] [address] [facility] [id number] [place] [address]- 3077 Jun, [facility] [address] [facility] [id number] [place] [address]- 2363 Jun, [facility] [address] [id number] [address] Jun, [facility] [place] [facility] [address] [id number] [place] [address] 1735 May, [facility] [place] [facility] [address] [id number] [place] [address]- 9561 May, [facility] [place] [facility] [address] [facility] [id number] [place] [address]- 3848 May, [facility] [place] [facility] [address] [facility] [id number] [place] [address]- 2799 May, [facility] [place] [facility] [address] [id number] [place] [address] 2548 06 May, 2011 [facility] [place] [facility] [address] [id number] [place] [address]- 6686 May, [facility] [place] [facility] [address] [id number] [place] [address] 2546 Apr, [facility] [place] [facility] [address] [id number] [place] [address]- [address] Apr, [facility] [place] [facility] [address] [id number] [place] [address]- 1814 Mar, [facility] [place] [facility] [address] [id number] [place] [address]- 1867 Mar, [facility] [place] [facility] [address] [id number] [place] [address]- 6072 October, [facility] [place] [facility] [address] [id number] [place] [address]- 7136 May, [facility] [place] [facility] [address] [id number] [place] [address]- 7177 Apr, [facility] [place] [facility] [address] [id number] [place] [address]- 3156 Jul, [facility] [place] [facility] [address] [id number] [place] [address]- 0705 May, [facility] [place] [facility] [address] [id number] [place] [address]- 9215 May, [facility] [place] [facility] [address] [id number] [place] [address]- 2540 May, [facility] [place] [facility] [address] [id number] [place] [address]- 2546 Apr, [facility] [place] [facility] [address] [id number] [place] [address]- 2546 Apr, [facility] [place] [facility] [address] [id number] [place] [address]- 2543 Mar, [facility] [place] [address] [facility] [id number] [place] [address]- [address] Jan, [facility] [address] [facility] [id number] [place] [address]- [address]46 Nov, IMMUNIZATIONS No Known Immunizations SOCIAL HISTORY Never Assessed REASON FOR VISIT Dosing clarification PLAN OF CARE VITAL SIGNS MEDICATIONS Medication Instructions Dosage Frequency Start Date End Date Duration Status Victoza 18 MG/3ML Subcutaneous Once a day 1.2 mg 24h October, Active RESULTS No Results [...]
--- OUTSIDE RECORDS SUMMARY | 2017-11-01 08:13 | XMS REPORT ---
Author Author BOOGIE ARAUJO Organization [facility] Address [address] [place] [address] Care Team Providers Care Canine Service Teacher Name Role Phone BOOGIE ARAUJO Unavailable PROBLEMS Type Condition ICD9-CM Code RYY05-GK Code Onset Dates Condition Status SNOMED Code Problem Thyroid nodule E04.1 Active 401838709 Problem Diabetes type 2, controlled E11.9 Active 09328317 Problem Screening breast examination Z12.39 Active 233029393 Problem Allergic rhinitis, unspecified allergic rhinitis trigger, unspecified rhinitis seasonality J30.9 Active 63195403 Problem History of abnormal cervical Pap smear Z87.898 Active 285958565 Problem History of colon polyps Z86.010 Active 498201645 Problem Thoracogenic scoliosis of thoracolumbar region M41.35 Active 74421089 Problem Uncontrolled type 2 diabetes mellitus without complication, without long-term current use of insulin E11.65 Active 807234376 ALLERGIES No Known Allergies SOCIAL HISTORY No smoking Hx information available PLAN OF CARE VITAL SIGNS MEDICATIONS Medication Instructions Dosage Frequency Start Date End Date Duration Status [place] 7.5-325 MG Orally 3 times a day 1 tablet as needed 8h Jul, 28 days Active RESULTS No Results PROCEDURES No Known procedures IMMUNIZATIONS No Known Immunizations
--- OUTSIDE RECORDS SUMMARY | 2017-11-01 08:13 | XMS REPORT ---
Author Author BOOGIE ARAUJO [facility] [employer] Address Unknown Phone Unavailable Care Team Providers Care Icu Rn Name Role Phone BOOGIE ARAUJO CP Unavailable [...] Instructions Start Date End Date Status Dosage [facility] [address]-63 7.5-325 MG Orally 3 times a day May 06, 2015 1 tablet as needed Results No Known Results Summary Purpose [employer] Submission
--- OUTSIDE RECORDS SUMMARY | 2017-11-01 08:14 | XMS REPORT ---
Author Author BOOGIE ARAUJO Organization [employer] Address Unknown Phone Unavailable Care Team Providers Care Deep Fryer Assembler Name Role Phone BOOGIE ARAUJO CP Unavailable [...]
--- OUTSIDE RECORDS SUMMARY | 2017-11-01 08:14 | XMS REPORT ---
Author Author BOOGIE ARAUJO Organization [employer] Address Unknown Phone Unavailable Care Team Providers Care Java Developer Name Role Phone BOOGIE ARAUJO CP Unavailable [...] Start Date End Date Status Dosage Hydrocodone-Acetaminophen [facility] [address]-21 7.5-325 MG Orally every 8 hrs PRN MUST LAST 28 DAYS September 13, 2014 take 1 tablet Results No Known Results Summary Purpose [employer] Submission
--- OUTSIDE RECORDS SUMMARY | 2017-11-01 08:15 | XMS REPORT ---
Author Author BOOGIE ARAUJO [facility] [employer] Address Unknown Phone Unavailable Care Team Providers Care Byproducts Maker Name Role Phone BOOGIE ARAUJO CP Unavailable [...] in joint, lower leg M25.569 Active Assessment Encounter for immunization Z23 Active Problem Numerous moles D22.9 Active Problem Thyroid nodule E04.1 Active Assessment History of type 2 diabetes mellitus Z86.39 Active Problem Alternating constipation and diarrhea R19.8 Active Problem Diabetes type 2, controlled E11.9 Active Problem History of abnormal cervical Pap smear Z87.898 Active Medications Medication Code System Code Instructions Start Date End Date Status Dosage Lipitor [facility] 06224342266 40 Once a day [address] [facility] 55097879648 81 TAKE ONE TABLET BY MOUTH DAILY Flonase [facility] [address]-82 50 MCG/ACT Nasally Once a day 1 spray in each nostril FreeStyle Test [facility] 38281141763 TEST 1 TIME PER DAY GlipiZIDE [facility] 65077342149 10 2 times a day 2 tablets Montelukast Sodium [facility] [address]-81 10 MG Orally Once a day 1 tablet in the evening MetFORMIN HCl ER [facility] [address]-53 500 MG Orally twice a day Apr 01, 2016 2 tablets Aspirin EC Low Dose [facility] 40595652674 81 MG TAKE ONE TABLET BY MOUTH ONCE DAILY Vitamin D [facility] [address]-27 1000 UNIT Orally Once a day 1 tablet Blood Pressure Cuff [facility] 0 Apr 12, 2014 Dx: Hypertension [place] [facility] [address]-82 7.5-325 MG Orally 3 times a day May 06, 2015 1 tablet as needed Atorvastatin Calcium [facility] 99762498461 40 MG TAKE ONE TABLET BY MOUTH ONCE DAILY Losartan Potassium [facility] 36466217100 25 MG TAKE ONE TABLET BY MOUTH ONCE DAILY Zyrtec Allergy [facility] 16862304308 10 Once a day 1 tablet Amlodipine Besylate [facility] 84101836294 10 MG TAKE ONE TABLET BY MOUTH ONCE DAILY Procedures Procedure Coding System Code Date Office Visit, Est Pt., Level 3 CPT-4 00559 Apr 23, 2016 FLUARIX QUAD P-FREE 3 AND UP .50 2015 CPT-4 67193 Apr 23, 2016 GLYCATED HEMOGLOBIN TEST CPT-4 82806 Apr 23, 2016 SINGLE IMMUNIZATION ADMIN CPT-4 44088 Apr 23, 2016 Vital Signs Date/Time: Apr 23, 2016 Cardiac Monitoring Heart Rate 90 bpm Weight 256.4 lbs Height 69 in BMI 37.86 Index Blood Pressure Diastolic 77 mmHg Blood Pressure Systolic 132 mmHg Results Name Result Date Reference Range Unit Abnormality Flag A1C (IN HOUSE) ----A1C IN HOUSE 8.2 20160423 4.3 - 5.6 % ----Previous A1c 7.4 20160423 ----Lot [id number] ----Exp date 20160423 Immunizations Vaccine Administration Date FLUARIX QUAD P-FREE 3 AND UP .50 2015Apr 23, 2016 Summary Purpose [employer] Submission
--- OUTSIDE RECORDS SUMMARY | 2017-11-01 08:15 | XMS REPORT ---
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 Name Role Phone FLACO GERARD Unavailable PROBLEMS Type Condition ICD9-CM Code TFT70-TC Code Onset Dates Condition Status SNOMED Code Problem History of abnormal cervical Pap smear Z87.898 Active 480352786 Problem Thoracogenic scoliosis of thoracolumbar region M41.35 Active 98800815 Problem Uncontrolled type 2 diabetes mellitus without complication, without long-term current use of insulin E11.65 Active 308626632 Problem Diabetes type 2, controlled E11.9 Active 34493525 Problem Thyroid nodule E04.1 Active 801905381 Problem History of colon polyps Z86.010 Active 348299879 Problem Other iron deficiency anemia D50.8 Active 68997381 Problem Iron deficiency anemia due to chronic blood loss D50.0 Active 314793544 Problem Screening breast examination Z12.39 Active 460288321 Problem Allergic rhinitis, unspecified allergic rhinitis trigger, unspecified rhinitis seasonality J30.9 Active 06338033 Problem Controlled type 2 diabetes mellitus without complication, without long -term current use of insulin E11.9 Active 550953418 Problem Other chronic pain G89.29 Active 30837136 ALLERGIES Substance Reaction Event Type Date Status [...] Feb, Active ENCOUNTERS Encounter Location Date Diagnosis [facility] [address] [facility] [id number] [place] [address] Sep, Diabetes type 2, controlled E11.9 [place] [address] [address] Sep, [facility] [id number] [place] [address] 35189- 6082 Sep, Diabetes type 2, controlled E11.9 [place] [id number] [place] [address] 44607- 8071 Sep, Other chronic pain G89.29 [place] [id number] [place] [address] 97672- 8113 Sep, Other iron deficiency anemia D50.8 [place] [address] [place] [id number] [place] [address] 85378- 9473 Sep, Other iron deficiency anemia D50.8 [place] [id number] [place] [address] 59994- 9503 Sep, Iron deficiency anemia due to chronic blood loss D50.0 and Dysuria R30.0 [place] [id number] [place] [address] 09400- 5650 Sep, Dysuria R30.0 [place] [id number] [place] [address] 53611- 5955 Sep, Iron deficiency anemia due to chronic blood loss D50.0 [place] [address] [address] 9830 Sep, [place] [id number] [place] [address] 89164- 2985 Sep, Controlled type 2 diabetes mellitus without complication, without long-term current use of insulin E11.9 ; Leg cramps R25.2 ; Low back pain M54.5 and Other chronic pain G89.29 [facility] [address] [address] 5317 Sep, Controlled type 2 diabetes mellitus without complication, without long-term current use of insulin E11.9 ; Low back pain M54.5 ; Other chronic pain G89.29 and Leg cramps R25.2 [facility] [address] [address] 3027 Aug, Other chronic pain G89.29 [facility] [address] [place] [address] [id number] [place] [address] 28060- 0482 Jul, Other chronic pain G89.29 [facility] [address] [place] [address] [id number] [place] [address] 67900- 9851 16 Jul, 2017 Pneumonia of left lower lobe due to infectious organism J18.1 [facility] [id number] [place] [address] 84559 -1713 Jul, Dysuria R30.0 ; Cough in adult patient R05 and Pneumonia of left lower lobe due to infectious organism J18.1 [facility] [address] [place] [address] [id number] [place] [address] 79571- 5472 Jul, [facility] [address] [place] [address] [id number] [place] [address] 24943- 6130 Jun, Other chronic pain G89.29 [facility] [address] [place] [address] [id number] [place] [address] 81765- 9050 Jun, [facility] [address] [place] [address] [id number] [place] [address] 77051- 2347 Jun, Diabetes type 2, controlled E11.9 ; Back muscle spasm M62.830 and Other chronic pain G89.29 [facility] [address] [place] [address] 21032- 1564 Jun, Screening breast examination Z12.31 [facility] [address] [place] [id number] [place] [address] 22097- 1869 May, Other chronic pain G89.29 [facility] [address] [id number] [place] [address] 12530- 7118 May, [facility] [address] [place] [address] [id number] [place] [address] 30576- 9967 May, UTI (urinary tract infection) N39.0 [facility] [id number] [place] [address] 84799- 3344 May, Dysuria R30.0 [facility] [address] [place] [address] [id number] [place] [address] 03382- 5513 May, Dysuria R30.0 [facility] [address] [place] [address] [id number] [place] [address] 06842- 5383 May, Diabetes type 2, controlled E11.9 ; care home current use of 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 Z79.891 and Other chronic pain G89.29 [facility] [address] [place] [address] [id number] [place] [address] 82430- 9111 Apr, Diabetes type 2, controlled E11.9 [facility] [address] [place] [address] [id number] [place] [address] 33214 -5797 30 Mar, 2017 Paronychia of great toe, right L03.031 and Dysuria R30.0 [facility] [address] [place] [address] 62575- 7105 Mar, Diabetes type 2, controlled E11.9 [facility] [address] [place] [id number] [place] [address] 15977- 7450 28 Feb, 2017 Diabetes type 2, controlled E11.9 [facility] [address] [place] [address] [id number] 13 Feb, 2017 Dental examination Z01.20 [facility] [address] [place] [id number] [place] [address] 82857- 0957 11 Feb, 2017 Diabetes type 2, controlled E11.9 [facility] [address] [place] [address] [id number] [place] [address] 37841- 2711 07 Feb, 2017 Diabetes type 2, controlled E11.9 [facility] [address] [place] [address] [id number] [place] [address] 96998- 0154 14 Jan, 2017 Diabetes type 2, controlled E11.9 [facility] [address] [place] [address] [id number] [place] [address] 74544- 3176 Dec, Diabetes type 2, controlled E11.9 [facility] [address] [address]- 5798 Dec, Diabetes type 2, controlled E11.9 [facility] [address] [facility] [id number] [address] 5941 Nov, Diabetes type 2, controlled E11.9 [facility] [address] [place] [id number] [place] [address] 54844- 5700 Nov, Diabetes type 2, controlled E11.9 [facility] [address] [place] [id number] [address]- 1825 Nov, Diabetes type 2, controlled E11.9 [facility] [address] [place] [address] [id number] [address]- 2198 Nov, Diabetes type 2, controlled E11.9 [facility] [id number] [address]- 7834 Nov, Diabetes type 2, controlled E11.9 [facility] [address] [address]- 2699 Nov, Diabetes type 2, controlled E11.9 [facility] [address] [address]- 6043 October, Pain in unspecified shoulder M25.519 [facility] [address] [address]- 6301 October, Diabetes type 2, controlled E11.9 and Cellulitis of right lower extremity L03.115 [facility] [address] [address]- 9138 October, Pain in unspecified shoulder M25.519 [facility] [address] [place] [id number] [address]- 3931 Sep, Diabetes type 2, controlled E11.9 [facility] [address] [address]- 9034 Aug, Pain in unspecified shoulder M25.519 [facility] [address] [place] [address] [id number] [place] [address] 47377- 5852 Aug, Diabetes type 2, controlled E11.9 [place] [address] [place] [id number] [place] [address] 86028- 3809 Aug, Diabetes type 2, controlled E11.9 ; Dark urine R82.99 and Localized edema R60.0 [place] [address] [place] [id number] [place] [address] 53553- 0759 Aug, Pain in unspecified shoulder M25.519 [place] [address] 68162- 5196 Jul, Pain in unspecified shoulder M25.519 [place] [address] 21411- 2710 Jul, [place] [address] 53956- 1270 Jul, Diabetes 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, 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 E11.9 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 [place] [address] [place] [id number] [place] [address] 84302- 8671 Jun, Diabetes type 2, controlled E11.9 [place] [address] [place] [id number] [place] [address] 77856- 8894 Jun, Screening breast examination Z12.39 and Allergic rhinitis, unspecified allergic rhinitis trigger, unspecified rhinitis seasonality J30.9 [place] [address] [place] [id number] [place] [address] 87364- 5676 Jun, Pain in unspecified shoulder M25.519 [place] [address] [place] [id number] [place] [address] 66756- 1253 May, [place] [address] [place] [id number] [place] [address] 93187- 5994 May, Pain in unspecified shoulder M25.519 [place] [address] [place] [address]- 1573 May, Thoracogenic scoliosis of thoracolumbar region M41.35 ; Low back pain M54.5 ; Other chronic pain G89.29 and Uncontrolled type 2 diabetes mellitus without complication, without long-term current use of insulin E11.65 [facility] [address] [place] [id number] [place] [address] 46188- 3440 Apr, [facility] [address] 41293- 6294 Apr, [facility] [address] [place] [id number] [place] [address] 43400- 1486 Apr, History of type 2 diabetes mellitus Z86.39 and Encounter for immunization Z23 [facility] [address] [place] [id number] [place] [address] 97260- 9929 Mar, [facility] [address] 98865- 3312 Mar, [facility] [address] [place] [id number] [place] [address] 71420- 9947 Feb, [facility] [address] [place] [id number] [place] [address] 31531- 1908 Jan, [facility] [address] [place] [id number] [place] [address] 10120- 5546 Jan, [facility] [address] [place] [address] [id number] [place] [address] 62961- 3223 Dec, [facility] [address] [place] [address] [id number] [place] [address] 23686 -5993 Dec, Sore throat J02.9 and Allergic rhinitis, unspecified allergic rhinitis type J30.9 [facility] [address] [place] [id number] [place] [address] 74675- 6306 Dec, Diabetes type 2, controlled E11.9 [facility] [address] [place] [address] [id number] [place] [address] 63673- 2252 Nov, [place] [address] [facility] [id number] [address]- 9908 Nov, [facility] [address] [address]- 0149 October, [facility] [address] [place] [id number] [address]- 2451 October, [facility] [address] [address]- 8283 Sep, [facility] [address] [facility] [id number] [address]- 1973 Aug, [facility] [address] [place] [id number] [address]- 8356 Aug, Diabetes type 2, controlled E11.9 ; UTI (urinary tract infection) N39.0 and Bacterial infection A49.9 [facility] [address] [address]- 1898 Jul, [facility] [address] [place] [id number] [address]- 8468 Jul, [facility] [address] [id number] [address]- 5419 Jul, Pharyngitis J02.9 and Seborrheic keratoses L82.1 [facility] [address] [place] [place] [id number] [address]- 7918 Jun, [facility] [address] [place] [id number] [address]- 1442 May, [facility] [address] [place] [id number] [address]- 5037 May, Skin tags, multiple acquired L91.8 ; Seborrheic keratoses L82.1 and Diabetes type 2, controlled E11.9 [facility] [address] [place] [id number] [address]- 9749 May, Well woman exam Z01.419 ; Papanicolaou [...] Other hemorrhoids K64.8 and Other fatigue R53.[address] 60850- 2943 May, [address] 15755- 1808 May, [address] 58935- 8940 Apr, Seborrheic keratosis L82.1 and Diabetes type 2, controlled E11.[address] 74064- 4737 Apr, Seborrheic keratosis L82.1 and Diabetes type 2, controlled E11.[address] 03318- 6633 Mar, [address] 75623- 1221 Mar, [address] 32568- 1075 Mar, Encounter for immunization Z23 ; Nevoid hyperpigmentation L81.9 ; Skin tags, multiple acquired L91.8 and Seborrheic keratoses L82.[address] 71297- 9199 Feb, [address] 22561- 8002 Feb, [address] 58407- 9923 Feb, [facility] [address] 7096 Feb, Diabetes 250.00 ; Tinea corporis 110.5 and Shoulder pain, left 719.41 [facility] [address] [address] 0224 Jan, [facility] [address] [place] [id number] [place] [address] 22089- 8365 Dec, [facility] [address] [place] [id number] [place] [address] 482274- 3617 Dec, [facility] [address] [place] [id number] [place] [address] 054514- 0813 Dec, Seborrheic keratoses 702.19 ; Diabetes 250.00 and Hypoglycemia 251.2 [facility] [address] [place] [address] [id number] [place] [address] 82087- 1147 Nov, [facility] [address] [id number] [address]- 4221 Nov, Abnormal mammogram 793.80 [facility] [address] [place] [id number] [place] [address] 979873- 5823 October, Diabetes 250.00 and Colon polyp 211.3 [facility] [address] [address]- 4252 Sep, [facility] [address] [address]- 3545 Sep, [facility] [address] [address]- 2236 Sep, [facility] [address] [id number] 7186 Aug, [facility] [address] 4413 Aug, [facility] [id number] [place] [address] 11703- 7672 Jul, [facility] [address] [id number] [place] [address]- 5799 Jul, [facility] [place] [facility] [address] [id number] [place] [address]- 9139 Jun, [facility] [place] [facility] [address] [facility] [id number] [place] [address]- 5083 Jun, [facility] [place] [facility] [address] [id number] [place] [address]- 5267 Jun, [facility] [place] [facility] [address] [id number] [place] [address]- 4713 Jun, [facility] [place] [facility] [address] [id number] [place] [address]- 6436 Jun, [facility] [address] [facility] [id number] [address]- 5839 Jun, [facility] [place] [facility] [address] [id number] [place] [address]- 0982 May, [facility] [place] [facility] [address] [id number] [place] [address]- 0778 May, [facility] [place] [facility] [address] [facility] [id number] [place] [address]- 8045 Apr, [facility] [place] [facility] [address] [id number] [address]- 0347 Apr, [facility] [place] [facility] [address] [id number] [place] [address]- 1825 Apr, [facility] [place] [facility] [address] [id number] [address]- 4230 Apr, [facility] [place] [facility] [address] [facility] [id number] [place] [address]- 4440 Apr, [facility] [place] [facility] [address] [facility] [id number] [place] [address]- 5541 Apr, [facility] [place] [facility] [address] [id number] [place] [address]- 0622 Apr, [facility] [place] [facility] [address] [id number] [place] [address]- 9743 Apr, [facility] [place] [facility] [address] [id number] [place] [address]- 5574 Apr, [facility] [place] [facility] [address] [id number] [place] [address]- 8315 Apr, [facility] [place] [facility] [address] [id number] [place] [address]- 8485 Mar, [facility] [place] [facility] [address] [id number] [place] [address]- 7010 Mar, [facility] [place] [facility] [address] [id number] [place] [address]- 1155 Mar, [facility] [place] [facility] [address] [id number] [place] [address]- 9909 Mar, [facility] [place] [facility] [address] [id number] [place] [address]- 9191 Mar, [facility] [place] [facility] [address] [id number] [place] [address]- 9920 Mar, [facility] [place] [facility] [address] [id number] [place] [address]- 8500 Mar, [facility] [place] [facility] [address] [id number] [place] [address]- 4472 Mar, [facility] [place] [facility] [address] [id number] [place] [address]- 1799 24 Feb, 2014 [facility] [place] [facility] [address] [id number] [place] [address]- 0580 24 Feb, 2014 [facility] [place] [facility] [address] [id number] [place] [address]- 7896 Feb, [facility] [place] [facility] [address] [id number] [place] [address]- 1461 Feb, [facility] [place] [facility] [address] [id number] [place] [address]- 6509 Jan, [facility] [place] [facility] [address] [id number] [place] [address]- 7995 Jan, [facility] [place] [facility] [address] [id number] [place] [address]- 0999 Dec, [facility] [place] [facility] [address] [id number] [place] [address]- 6107 Dec, [facility] [place] [facility] [address] [id number] [place] [address]- 4844 Nov, [facility] [place] [facility] [address] [id number] [place] [address]- 2738 Nov, [facility] [place] [facility] [address] [id number] [place] [address]- 1063 Nov, [facility] [place] [facility] [address] [id number] [place] [address]- 7222 Nov, [facility] [place] [facility] [address] [id number] [place] [address]- 9827 October, [facility] [place] [facility] [address] [id number] [place] [address]- 0683 October, [facility] [place] [facility] [address] [id number] [place] [address]- 3460 October, [facility] [place] [facility] [address] [id number] [place] [address]- 4547 October, [facility] [place] [facility] [address] [id number] [place] [address]- 7465 October, [facility] [place] [facility] [address] [id number] [place] [address]- 6886 October, [facility] [place] [facility] [address] [id number] [place] [address]- 7451 October, [facility] [place] [facility] [address] [id number] [place] [address]- 6557 October, [facility] [place] [facility] [address] [id number] [place] [address]- 4286 Aug, [facility] [place] [facility] [address] [id number] [place] [address]- 8456 Aug, [facility] [place] [facility] [address] [id number] [place] [address]- 4616 Jul, [facility] [place] [facility] [address] [id number] [place] [address] 2547 Jul, [facility] [place] [facility] [address] [id number] [place] [address]- 9586 Jul, [facility] [place] [facility] [address] [facility] [id number] [place] [address]- 3506 Jul, [facility] [place] [facility] [address] [facility] [id number] [place] [address]- 2895 Jul, [facility] [place] [facility] [address] [id number] [place] [address]- 1182 Jun, [facility] [place] [facility] [address] [facility] [id number] [place] [address]- 5883 Jun, [facility] [place] [facility] [address] [facility] [id number] [place] [address]- 7678 May, [facility] [place] [facility] [address] [id number] [place] [address]- 3566 May, [facility] [place] [facility] [address] [id number] [place] [address]- 2546 Apr, [facility] [place] [facility] [address] [id number] [place] [address]- 8080 Apr, [facility] [place] [facility] [address] [facility] [id number] [place] [address]- 3456 Mar, [facility] [place] [facility] [address] [facility] [id number] [place] [address]- 3233 Mar, [facility] [address] [id number] [place] [address] 04 Mar, 2013 [facility] [place] [facility] [address] [id number] [place] [address] Feb, [facility] [place] [facility] [address] [id number] [place] [address] Feb, [facility] [place] [facility] [address] [id number] [place] [address] 17 Feb, 2013 [facility] [place] [facility] [address] [id number] [place] [address] Feb, [facility] [place] [facility] [address] [id number] [place] [address] Feb, [facility] [place] [facility] [address] [id number] [place] [address] Jan, [facility] [place] [facility] [address] [id number] [place] [address] Dec, [facility] [place] [facility] [address] [id number] [place] [address] Nov, [facility] [place] [facility] [address] [id number] [place] [address] October, [facility] [place] [facility] [address] [id number] [place] [address] Sep, [facility] [place] [facility] [address] [id number] [address] Aug, [facility] [place] [facility] [address] [id number] [place] [address] Aug, [facility] [place] [facility] [address] [id number] [place] [address] Aug, [facility] [place] [facility] [address] [id number] [place] [address] May, [facility] [place] [facility] [address] [id number] [place] [address] 12 May, 2012 [facility] [place] [facility] [address] [id number] [place] [address] 12 May, 2012 [facility] [place] [facility] [address] [id number] [place] [address] May, [facility] [place] [facility] [address] [id number] [place] [address] May, [facility] [place] [facility] [address] [id number] [place] [address] 16 Apr, 2012 [facility] [place] [facility] [address] [id number] [place] [address]- [address] 16 Apr, 2012 [facility] [place] [facility] [address] [id number] [place] [address] 14 Apr, 2012 [facility] [place] [facility] [address] [id number] [place] [address] 14 Apr, 2012 [facility] [place] [facility] [address] [id number] [place] [address] Apr, [facility] [place] [facility] [address] [id number] [place] [address] Apr, [facility] [place] [facility] [address] [facility] [id number] [place] [address] Apr, [facility] [place] [facility] [address] [id number] [place] [address] Apr, [facility] [place] [facility] [address] [id number] [address] Mar, [facility] [place] [facility] [address] [id number] [place] [address] Mar, [facility] [place] [facility] [address] [facility] [id number] [address] Mar, [facility] [place] [facility] [address] [facility] [id number] [address] Mar, [facility] [place] [facility] [address] [id number] [place] [address] Mar, [facility] [place] [facility] [address] [id number] [place] [address] Mar, [facility] [place] [facility] [address] [id number] [place] [address] 25[address] Mar, [facility] [place] [facility] [address] [id number] [place] [address] 28 Feb, 2012 [facility] [place] [facility] [address] [id number] [place] [address] 24 Feb, 2012 [facility] [place] [facility] [address] [id number] [place] [address] Feb, [facility] [place] [facility] [address] [id number] [place] [address] Feb, [facility] [place] [facility] [address] [id number] [place] [address] Jan, [facility] [place] [facility] [address] [id number] [place] [address] Jan, [facility] [place] [facility] [address] [id number] [place] [address] Jan, [facility] [place] [facility] [address] [id number] [place] [address] Jan, [facility] [place] [facility] [address] [id number] [place] [address] Jan, [facility] [place] [facility] [address] [id number] [place] [address] Jan, [facility] [place] [facility] [address] [id number] [place] [address] Dec, [facility] [place] [facility] [address] [id number] [place] [address] 2546 Dec, [facility] [place] [facility] [address] [id number] [place] [address] Dec, [facility] [place] [facility] [address] [id number] [place] [address] Dec, [facility] [place] [facility] [address] [id number] [place] [address] Dec, [facility] [place] [facility] [address] [id number] [place] [address] Dec, [facility] [place] [facility] [address] [id number] [place] [address] Dec, [facility] [place] [facility] [address] [id number] [place] [address] Dec, [facility] [place] [facility] [address] [id number] [place] [address] Nov, [facility] [place] [facility] [address] [id number] [place] [address] Nov, [facility] [place] [facility] [address] [id number] [place] [address] Nov, [facility] [place] [facility] [address] [id number] [place] [address] Nov, [facility] [place] [facility] [address] [id number] [place] [address] October, [facility] [place] [facility] [address] [id number] [place] [address] October, [facility] [place] [facility] [address] [id number] [place] [address] 30 Sep, 2011 [facility] [place] [facility] [address] [id number] [place] [address] 2546 Sep, [facility] [place] [facility] [address] [id number] [place] [address] 27 Aug, 2011 [facility] [place] [facility] [address] [id number] [place] [address] 16 Aug, 2011 [facility] [place] [facility] [address] [id number] [place] [address] 07 Aug, 2011 [facility] [address] [id number] [place] [address] 07 Aug, 2011 [facility] [place] [facility] [address] [id number] [place] [address] 05 Aug, 2011 [facility] [address] [id number] [place] [address] 08 Jul, 2011 [facility] [place] [facility] [address] [id number] [place] [address] Jul, [facility] [address] [id number] [place] [address] Jul, [facility] [address] [id number] [place] [address] Jul, [facility] [address] [id number] [place] [address] Jun, [facility] [address] [id number] [place] [address] Jun, [facility] [place] [facility] [address] [id number] [place] [address] Jun, [facility] [address] [id number] [place] [address] Jun, [facility] [place] [facility] [address] [id number] [place] [address] Jun, [facility] [address] [id number] [place] [address] May, [facility] [place] [facility] [address] [id number] [place] [address] May, [facility] [place] [facility] [address] [id number] [place] [address] May, [facility] [place] [facility] [address] [id number] [place] [address] May, [facility] [address] [id number] [place] [address] May, [facility] [place] [facility] [address] [id number] [place] [address] May, [facility] [place] [facility] [address] [id number] [place] [address]- [address] Apr, [facility] [place] [facility] [address] [id number] [place] [address] Apr, [facility] [place] [facility] [address] [id number] [place] [address] Mar, [facility] [place] [facility] [address] [id number] [place] [address] Mar, [facility] [place] [facility] [address] [id number] [place] [address] October, [facility] [place] [facility] [address] [id number] [place] [address]- [address] May, [facility] [place] [facility] [address] [id number] [place] [address] Apr, [facility] [place] [facility] [address] [id number] [place] [address] Jul, [facility] [place] [facility] [address] [id number] [place] [address] May, [facility] [place] [facility] [address] [id number] [place] [address] May, [facility] [place] [facility] [address] [id number] [place] [address] May, [facility] [place] [facility] [address] [id number] [place] [address] Apr, [facility] [place] [facility] [address] [id number] [place] [address] 1315 Apr, [facility] [place] [facility] [address] [facility] [id number] [place] [address] Mar, [facility] [address] [facility] [id number] [place] [address] Jan, [facility] [address] [facility] [id number] [place] [address] Nov, IMMUNIZATIONS No Known Immunizations SOCIAL HISTORY Never Assessed REASON FOR VISIT thomas PLAN OF CARE Activity Details Follow Up prn Reason:marina/hygiene VITAL SIGNS Height 69 in 2017-03-02 Blood pressure systolic 122 mmHg 2017-03-02 Blood pressure diastolic 71 mmHg 2017-03-02 MEDICATIONS Medication Instructions Dosage Frequency Start Date End Date Duration Status Amlodipine Besylate 10 mg 1 tablet 24h 30 Active Nebulizer - Active Flonase 50 MCG/ACT Nasally Once a day 1 spray in each nostril 24h Active Pen Turpin 31G X 6 MM use with victoza pens 15 Nov, 2016 90 days Active [place] 7.5-325 MG Orally 4 times a day 1 tablet as needed 6h Feb, 28 days Active Montelukast Sodium 10 MG Orally Once a day 1 tablet in the evening 24h Active Losartan Potassium 50 MG TAKE ONE TABLET BY MOUTH ONCE DAILY 30 Active Klor-Con 10 10 MEQ Orally Once a day 1 tablet with food 24h Active C-PAP Machine Active Aspirin 81 TAKE ONE TABLET BY MOUTH DAILY 30 Active Vitamin D 1000 UNIT Orally Once a day 1 tablet 24h Active Blood Pressure Cuff Dx: Hypertension Mar, Active Victoza 18 MG/3ML Subcutaneous Once a day 1.2 mg 24h October, Active Lasix 20 mg Orally Once a day 1 tablet 24h Aug, 07 days Active MetFORMIN HCl ER 500 MG Orally twice a day 2 tablets 12h 30 Active Zyrtec Allergy 10 1 tablet 24h Active FreeStyle Lite Test - In Vitro 2 times a day test blood sugar 12h Sep, Active Ipratropium-Albuterol 0.5-2.5 (3) MG/3ML Inhalation every 6 hrs 3 ml 6h Active Atorvastatin Calcium 40 MG TAKE ONE TABLET BY MOUTH ONCE DAILY 30 Active GlipiZIDE 10 2 tablets 12h Active RESULTS No Results PROCEDURES Procedure Date Ordered Result Body Site LTD ORAL EVALUATION - PROBLEM FOCUS Mar 02, 2017 INTRAORL-PERIAPICAL 1 FILM [id number] Mar 02, 2017 BITEWING - SINGLE FILM Mar 02, 2017 INSTRUCTIONS MEDICATIONS ADMINISTERED No Known Medications [...]
--- OUTSIDE RECORDS SUMMARY | 2017-11-01 08:15 | XMS REPORT ---
Author Author BOOGIE ARAUJO Organization [facility] Address [address] [place] [address] Care Team Providers Care Infantry Assaultman Name Role Phone BOOGIE ARAUJO Unavailable PROBLEMS Type Condition ICD9-CM Code [id number] Code Onset Dates Condition Status SNOMED Code Problem History of colon polyps Z86.010 Active 244797989 Problem Pain in joint, shoulder region M25.519 Active 678298754 Problem History of abnormal mammogram Z87.898 Active 683714652 Problem Pain in soft tissues of limb M79.609 Active 28304319 Problem Unspecified constipation K59.00 Active 98682139 Problem Pain in joint, lower leg M25.569 Active 661192076 Problem Other chronic pain G89.29 Active 542206898 Problem Nonspecific abdominal pain R10.9 Active 379760770 Problem H/O abnormal mammogram Z87.898 Active 489399600 Problem Thyroid nodule E04.1 Active 081844473 Problem Alternating constipation and diarrhea R19.8 Active 286935049 Problem Diabetes type 2, controlled E11.9 Active 50060831 Problem History of abnormal cervical Pap smear Z87.898 Active 197214741 Problem Numerous moles D22.9 Active 492613379 Problem History of type 2 diabetes mellitus Z86.39 Active 016808709 ALLERGIES Unknown Allergies SOCIAL HISTORY No smoking Hx information available PLAN OF CARE VITAL SIGNS MEDICATIONS Medication Instructions Dosage Frequency Start Date End Date Duration Status [place] 7.5-325 MG Orally 3 times a day 1 tablet as needed 8h 17 Apr, 2015 Active RESULTS No Results PROCEDURES No Known procedures IMMUNIZATIONS No Known Immunizations
--- OUTSIDE RECORDS SUMMARY | 2017-11-01 08:15 | XMS REPORT ---
Author Author BOOGIE ARAUJO [facility] e[employer] Address Unknown Phone Unavailable Care Team Providers Care Healthcare Financial Analyst Name Role Phone BOOGIE ARAUJO CP Unavailable [...] Instructions Start Date End Date Status Dosage FreeStyle Test NDC 0 Test Strips Once a day TEST 1 TIME PER DAY Results No Known Results Summary Purpose eClinicalWorks Submission
--- OUTSIDE RECORDS SUMMARY | 2017-11-01 08:15 | XMS REPORT ---
Author Author BOOGIE ARAUJO [facility] Address [address] [place] [address] Care Team Providers Care Battery Container Inspector Name Role Phone BOOGIE ARAUJO Unavailable PROBLEMS Type Condition ICD9-CM Code [id number] Code Onset Dates Condition Status SNOMED Code Problem Thyroid nodule E04.1 Active 166951988 Problem Diabetes type 2, controlled E11.9 Active 55292719 Problem Screening breast examination Z12.39 Active 728121648 Problem Allergic rhinitis, unspecified allergic rhinitis trigger, unspecified rhinitis seasonality J30.9 Active 71882589 Problem History of abnormal cervical Pap smear Z87.898 Active 751408918 Problem History of colon polyps Z86.010 Active 105470416 Problem Thoracogenic scoliosis of thoracolumbar region M41.35 Active 55883728 Problem Uncontrolled type 2 diabetes mellitus without complication, without long-term current use of insulin E11.65 Active 427425501 ALLERGIES No Known Allergies SOCIAL HISTORY No smoking Hx information available PLAN OF CARE VITAL SIGNS MEDICATIONS No Known Medications RESULTS No Results PROCEDURES No Known procedures IMMUNIZATIONS No Known Immunizations
--- OUTSIDE RECORDS SUMMARY | 2017-11-01 08:15 | XMS REPORT ---
Author Author BOOGIE ARAUJO [facility] eClinical[employer] Address Unknown Phone Unavailable Care Team Providers Care Cover Making Machine Operator Name Role Phone BOOGIE ARAUJO CP [...] Start Date End Date Status Dosage Aspirin [facility] [id number] 81 TAKE ONE TABLET BY MOUTH DAILY Results No Known Results Summary Purpose eClinicalWorks Submission
--- OUTSIDE RECORDS SUMMARY | 2017-11-01 08:15 | XMS REPORT ---
Author Author BOOGIE ARAUJO Organization [employer] Address Unknown Phone Unavailable Care Team Providers Care Multi Care Technician Name Role Phone BOOGIE ARAUJO CP Unavailable [...]
--- OUTSIDE RECORDS SUMMARY | 2017-11-01 08:15 | XMS REPORT ---
Author Author BOOGIE ARAUJO Organization [employer] Address Unknown Phone Unavailable Care Team Providers Care Carpet Sewer Name Role Phone BOOGIE ARAUJO CP Unavailable [...] Start Date End Date Status Dosage Hydrocodone-Acetaminophen [facility] [id number] 7.5-325 MG Orally every 8 hrs PRN MUST LAST 28 DAYS September 13, 2014 take 1 tablet Results No Known Results Summary Purpose eClinicalWorks Submission
--- OUTSIDE RECORDS SUMMARY | 2017-11-01 08:15 | XMS REPORT ---
Author Author BOOGIE ARAUJO Organization [facility] Address [address] [place] [address] Care Team Providers Care Environmental Studies Department Chair Name Role Phone GAYLE BOOGIE Unavailable PROBLEMS Type Condition ICD9-CM Code VOP45-AP Code Onset Dates Condition Status SNOMED Code Problem Thyroid nodule E04.1 Active 099965256 Problem Diabetes type 2, controlled E11.9 Active 40896328 Problem Screening breast examination Z12.39 Active 253610808 Problem Allergic rhinitis, unspecified allergic rhinitis trigger, unspecified rhinitis seasonality J30.9 Active 04807941 Problem History of abnormal cervical Pap smear Z87.898 Active 560605357 Problem History of colon polyps Z86.010 Active 812556839 Problem Thoracogenic scoliosis of thoracolumbar region M41.35 Active 39245253 Problem Uncontrolled type 2 diabetes mellitus without complication, without long-term current use of insulin E11.65 Active 095582824 ALLERGIES No Information SOCIAL HISTORY Never Assessed PLAN OF CARE VITAL SIGNS MEDICATIONS Medication Instructions Dosage Frequency Start Date End Date Duration Status Lasix 20 mg Orally Once a day 1 tablet 24h Aug, 2016 07 days Active RESULTS No Results PROCEDURES No Known procedures IMMUNIZATIONS No Known Immunizations MEDICAL (GENERAL) HISTORY Type Description Date Medical [...] History colonoscopy 07-08-15 Medical History sleep apnea Surgical History right knee arthroscopy Surgical History [...]
--- OUTSIDE RECORDS SUMMARY | 2017-11-01 08:16 | XMS REPORT ---
Author Author BOOGIE ARAUJO [facility] Address [address] [place] [address] Care Team Providers Care Garment Finisher Name Role Phone BOOGIE ARAUJO Unavailable PROBLEMS Type Condition ICD9-CM Code PLE35-ET Code Onset Dates Condition Status SNOMED Code Problem Thyroid nodule E04.1 Active 472337800 Problem Diabetes type 2, controlled E11.9 Active 15724689 Problem Screening breast examination Z12.39 Active 083101121 Problem Allergic rhinitis, unspecified allergic rhinitis trigger, unspecified rhinitis seasonality J30.9 Active 94258122 Problem History of abnormal cervical Pap smear Z87.898 Active 091101240 Problem History of colon polyps Z86.010 Active 618363671 Problem Thoracogenic scoliosis of thoracolumbar region M41.35 Active 11660233 Problem Uncontrolled type 2 diabetes mellitus without complication, without long-term current use of insulin E11.65 Active 196250383 ALLERGIES Substance Reaction Event Type Date Status Diclofenac rash Drug Allergy October, Active Invokana swelling Drug Allergy October, Active Trilipix Unknown Drug Allergy October, Active Simcor chest pain, due to high doses of niacin in the simcor Drug Allergy October, Active Meloxicam elevated BG, fluid retention Drug Allergy October, Active Hydrochlorothiazide Unknown Drug Allergy October, Active Dimetapp Maximum Strength Unknown Drug Allergy October, Active BusPIRone HCl dizziness Drug Allergy October, Active Augmentin Unknown Drug Allergy October, Active SOCIAL HISTORY Never Assessed PLAN OF CARE Activity Details Follow Up 4 Weeks, needs to be 4 wks! Reason:dm2 ooc. VITAL SIGNS Height 69 in 2016-11-08 Weight 251.3 lbs 2016-11-08 Temperature 98.2 degrees Fahrenheit 2016-11-08 Heart Rate 96 bpm 2016-11-08 Respiratory Rate 20 2016-11-08 BMI 37.11 kg/m2 2016-11-08 Blood pressure systolic 131 mmHg 2016-11-08 Blood pressure diastolic 70 mmHg 2016-11-08 MEDICATIONS Medication Instructions Dosage Frequency Start Date End Date Duration Status Atorvastatin Calcium 40 MG TAKE ONE TABLET BY MOUTH ONCE DAILY 30 Active Flonase 50 MCG/ACT Nasally Once a day 1 spray in each nostril 24h Active MetFORMIN HCl ER 500 MG Orally twice a day 2 tablets 12h Mar, 30 day(s) Active Lasix 20 mg Orally Once a day 1 tablet 24h Aug, 07 days Active GlipiZIDE 10 2 tablets 12h Active Amlodipine Besylate 10 mg 1 tablet 24h Active Vitamin D 1000 UNIT Orally Once a day 1 tablet 24h Active Nebulizer - Active Victoza 18 MG/3ML Subcutaneous Once a day 0.2 ml 24h October, Nov, 30 day(s) Active Klor-Con 10 10 MEQ Orally Once a day 1 tablet with food 24h Active FreeStyle Lite Test - In Vitro 2 times a day test blood sugar 12h Sep, Active C-PAP Machine Active Montelukast Sodium 10 MG Orally Once a day 1 tablet in the evening 24h Active Ipratropium-Albuterol 0.5-2.5 (3) MG/3ML Inhalation every 6 hrs 3 ml 6h Active Losartan Potassium 50 MG Orally Once a day 1 tablet 24h Active Blood Pressure Cuff Dx: Hypertension Mar, Active [place] 7.5-325 MG Orally 3 times a day 1 tablet as needed 8h October, 28 days Active Zyrtec Allergy 10 1 tablet 24h Active Aspirin 81 TAKE ONE TABLET BY MOUTH DAILY 30 Active Bactrim DS 800-160 MG Orally Twice a day 1 tablet 12h October, Nov, 10 day(s) Active RESULTS Name Result Date Reference Range A1C (IN HOUSE) 2016-11-08 A1C IN HOUSE 9.3 4.3 - 5.6 % Previous A1c 7.8 Lot [id number] Exp date PROCEDURES Procedure Date Ordered Result Body Site GLYCATED HEMOGLOBIN TEST November 08, 2016 IMMUNIZATIONS No Known Immunizations MEDICAL (GENERAL) HISTORY [...] 07-08-15 Surgical History heart cath x 2 2015 Hospitalization History surgeries Hospitalization History pneumonia Hospitalization History chest pain
--- OUTSIDE RECORDS SUMMARY | 2017-11-01 08:16 | XMS REPORT ---
Author Author BOOGIE ARAUJO Organization [facility] Address [address] [place] [address] Care Team Providers Care Chemical Processing Laborer Name Role Phone BOOGIE ARAUJO Unavailable PROBLEMS Type Condition ICD9-CM Code [id number] Code Onset Dates Condition Status SNOMED Code Problem Thyroid nodule E04.1 Active 536537632 Problem Diabetes type 2, controlled E11.9 Active 78642477 Problem Screening breast examination Z12.39 Active 929973252 Problem Allergic rhinitis, unspecified allergic rhinitis trigger, unspecified rhinitis seasonality J30.9 Active 46655716 Problem History of abnormal cervical Pap smear Z87.898 Active 552124677 Problem History of colon polyps Z86.010 Active 251261054 Problem Thoracogenic scoliosis of thoracolumbar region M41.35 Active 50022579 Problem Uncontrolled type 2 diabetes mellitus without complication, without long-term current use of insulin E11.65 Active 394491051 ALLERGIES Substance Reaction Event Type Date Status Diclofenac rash Drug Allergy Aug, Active Invokana swelling Drug Allergy Aug, Active Trilipix Unknown Drug Allergy Aug, Active Simcor chest pain, due to high doses of niacin in the simcor Drug Allergy Aug, Active Meloxicam elevated BG, fluid retention Drug Allergy Aug, Active Hydrochlorothiazide Unknown Drug Allergy Aug, Active Dimetapp Maximum Strength Unknown Drug Allergy Aug, Active BusPIRone HCl dizziness Drug Allergy Aug, Active Augmentin Unknown Drug Allergy Aug, Active SOCIAL HISTORY Never Assessed PLAN OF CARE Activity Details Follow Up 4 Weeks Reason:htn VITAL SIGNS Height 69 in 2016-08-26 Weight 260 lbs 2016-08-26 Temperature 98.0 degrees Fahrenheit 2016-08-26 Heart Rate 88 bpm 2016-08-26 Respiratory Rate 20 2016-08-26 BMI 38.39 kg/m2 2016-08-26 Blood pressure systolic 160 mmHg 2016-08-26 Blood pressure diastolic 90 mmHg 2016-08-26 MEDICATIONS Medication Instructions Dosage Frequency Start Date End Date Duration Status Aspirin 81 TAKE ONE TABLET BY MOUTH DAILY 30 Active MetFORMIN HCl ER 500 MG Orally twice a day 2 tablets 12h Mar, 30 day(s) Active Blood Pressure Cuff Dx: Hypertension Mar, Active Montelukast Sodium 10 MG Orally Once a day 1 tablet in the evening 24h Active Flonase 50 MCG/ACT Nasally Once a day 1 spray in each nostril 24h Active Klor-Con 10 10 MEQ Orally Once a day 1 tablet with food 24h Aug, Aug, 07 days Active Atorvastatin Calcium 40 MG TAKE ONE TABLET BY MOUTH ONCE DAILY 30 Active FreeStyle Test Test Strips TEST 1 TIME PER DAY 24h Active Amlodipine Besylate 10 mg 1 tablet 24h Active GlipiZIDE 10 2 tablets 12h Active [place] 7.5-325 MG Orally 3 times a day 1 tablet as needed 8h Aug, 28 days Active Vitamin D 1000 UNIT Orally Once a day 1 tablet 24h Active Zyrtec Allergy 10 1 tablet 24h Active Losartan Potassium 50 MG Orally Once a day 1 tablet 24h Active Lasix 20 mg Orally Once a day 1 tablet 24h Aug, 07 days Active RESULTS Name Result Date Reference Range UA LONG DIP (IN HOUSE) 2016-08-26 Lot # [id number] Exp date 06/2017 Clarity clear Color yellow Odor no GLU Neg THOM Neg KET Neg SG 1.010 BLO Neg pH 5.5 Protein Neg URO 0.2 NIT Neg TOVA Neg Lot # Exp date TSH 2016-08-26 TSH 3.850 0.450-4.500 CBC 2016-08-26 WBC 10.2 3.4-10.8 RBC 4.19 3.77-5.28 Hemoglobin 10.2 11.1-15.9 Hematocrit 32.9 34.0-46.6 MCV 79 79-97 MCH 24.3 26.6-33.0 MCHC 31.0 31.5-35.7 RDW 16.6 12.3-15.4 Platelets 353 150-379 Neutrophils 60 Lymphs 30 Monocytes 6 Eos 2 Basos 1 Neutrophils (Absolute) 6.2 1.4-7.0 Lymphs (Absolute) 3.0 0.7-3.1 Monocytes(Absolute) 0.6 0.1-0.9 Eos (Absolute) 0.2 0.0-0.4 Baso (Absolute) 0.1 0.0-0.2 Immature Granulocytes 1 Immature Grans (Abs) 0.1 0.0-0.1 LIPID PANEL 2016-08-26 Cholesterol, Total 145 100-199 Triglycerides 176 0-149 HDL Cholesterol 43 >39 VLDL Cholesterol Max 35 5-40 LDL Cholesterol Calc 67 0-99 CMP 2016-08-26 Glucose, Serum 210 65-99 BUN 11 8-27 Creatinine, Serum 1.08 0.57-1.00 eGFR If NonAfricn Am 54 >59 eGFR If Africn Am 63 >59 BUN/Creatinine Ratio 10 11-26 Sodium, Serum 139 134-144 Potassium, Serum 4.7 3.5-5.2 Chloride, Serum 98 96-106 Carbon Dioxide, Total 22 18-29 Calcium, Serum 9.3 8.7-10.3 Protein, Total, Serum 7.1 6.0-8.5 Albumin, Serum 4.3 3.6-4.8 Globulin, Total 2.8 1.5-4.5 A/G Ratio 1.5 1.1-2.5 Bilirubin, Total 0.2 0.0-1.2 Alkaline Phosphatase, S 104 39-117 AST (SGOT) 30 0-40 ALT (SGPT) 24 0-32 PROCEDURES Procedure Date Ordered Result Body Site ASSAY THYROID STIM HORMONE August 26, 2016 COMPLETE CBC W/AUTO DIFF WBC August 26, 2016 COMPREHEN METABOLIC PANEL August 26, 2016 LIPID PANEL August 26, 2016 URINALYSIS, AUTO, W/O SCOPE August 26, 2016 VENIPUNCT, ROUTINE* August 26, 2016 IMMUNIZATIONS No Known Immunizations MEDICAL (GENERAL) [...]
--- OUTSIDE RECORDS SUMMARY | 2017-11-01 08:16 | XMS REPORT ---
Author Author BOOGIE ARAUJO Organization [facility] Address [address] [place] [address] Care Team Providers Care Electronic Maintenance Supervisor Name Role Phone BOOGIE ARAUJO Unavailable PROBLEMS Type Condition ICD9-CM Code [id number] Code Onset Dates Condition Status SNOMED Code Problem Thyroid nodule E04.1 Active 122060401 Problem Diabetes type 2, controlled E11.9 Active 68085709 Problem Screening breast examination Z12.39 Active 792959012 Problem Allergic rhinitis, unspecified allergic rhinitis trigger, unspecified rhinitis seasonality J30.9 Active 49802591 Problem History of abnormal cervical Pap smear Z87.898 Active 685016222 Problem History of colon polyps Z86.010 Active 539433768 Problem Thoracogenic scoliosis of thoracolumbar region M41.35 Active 92576019 Problem Uncontrolled type 2 diabetes mellitus without complication, without long-term current use of insulin E11.65 Active 061309712 ALLERGIES Substance Reaction Event Type Date Status Diclofenac rash Drug Allergy Jul, Active Trilipix Unknown Drug Allergy Jul, Active Simcor chest pain, due to high doses of niacin in the simcor Drug Allergy Jul, Active Meloxicam elevated BG, fluid retention Drug Allergy Jul, Active Hydrochlorothiazide Unknown Drug Allergy Jul, Active Dimetapp Maximum Strength Unknown Drug Allergy Jul, Active BusPIRone HCl dizziness Drug Allergy Jul, Active Augmentin Unknown Drug Allergy Jul, Active SOCIAL HISTORY No smoking Hx information available PLAN OF CARE VITAL SIGNS Height 69 in 2016-07-22 Weight 251.0 lbs 2016-07-22 Temperature 98.1 degrees Fahrenheit 2016-07-22 Heart Rate 88 bpm 2016-07-22 Respiratory Rate 20 2016-07-22 BMI 37.06 kg/m2 2016-07-22 Blood pressure systolic 134 mmHg 2016-07-22 Blood pressure diastolic 82 mmHg 2016-07-22 MEDICATIONS Medication Instructions Dosage Frequency Start Date End Date Duration Status [place] 7.5-325 MG Orally 3 times a day 1 tablet as needed 8h 10 Jun, 2016 28 days Active GlipiZIDE 10 2 tablets 12h Active Amlodipine Besylate 10 mg 1 tablet 24h Active FreeStyle Test Test Strips TEST 1 TIME PER DAY 24h Active Montelukast Sodium 10 MG Orally Once a day 1 tablet in the evening 24h Active Aspirin 81 TAKE ONE TABLET BY MOUTH DAILY 30 Active Zyrtec Allergy 10 1 tablet 24h Active MetFORMIN HCl ER 500 MG Orally twice a day 2 tablets 12h 13 Mar, 2016 30 day(s) Active Atorvastatin Calcium 40 MG TAKE ONE TABLET BY MOUTH ONCE DAILY 30 Active Blood Pressure Cuff Dx: Hypertension Mar, Active Losartan Potassium 25 MG 1 tablet 24h Active Flonase 50 MCG/ACT Nasally Once a day 1 spray in each nostril 24h Active Vitamin D 1000 UNIT Orally Once a day 1 tablet 24h Active RESULTS Name Result Date Reference Range A1C (IN HOUSE) 2016-07-22 A1C IN HOUSE 7.8 4.3 - 5.6 % Previous A1c 8.2 Lot [id number] Exp date 04/2018 MICROALBUMIN, URINE (IN HOUSE) 2016-07-22 MICROALBUMIN Abnormal Lot # [id number] Exp date 07/20/2017 Clarity Clear Color yellow ALB 150 mg/L CRE 300 mg/dL A:C (IN HOUSE) 30-300 mg/g Control Control Lot # Exp date [employer] 2016-07-22 PROCEDURES Procedure Date Ordered Related Diagnosis Body Site GLYCATED HEMOGLOBIN TEST Jul 22, 2016 MICROALBUMIN, SEMIQUANT Jul 22, 2016 Office Visit, Est Pt., Level 3 Jul 22, 2016 No Charge Jul 22, 2016 IMMUNIZATIONS No Known Immunizations
--- OUTSIDE RECORDS SUMMARY | 2017-11-01 08:16 | XMS REPORT ---
Author Author BOOGIE ARAUJO Organization [facility] Address [address] [place] [address] Care Team Providers Care Cabinet Professional Name Role Phone GAYLE BOOGIE Unavailable PROBLEMS Type Condition ICD9-CM Code [id number] Code Onset Dates Condition Status SNOMED Code Problem Thyroid nodule E04.1 Active 062464395 Problem Diabetes type 2, controlled E11.9 Active 47689611 Problem Screening breast examination Z12.39 Active 332927606 Problem Allergic rhinitis, unspecified allergic rhinitis trigger, unspecified rhinitis seasonality J30.9 Active 13944924 Problem History of abnormal cervical Pap smear Z87.898 Active 091009417 Problem History of colon polyps Z86.010 Active 210769042 Problem Thoracogenic scoliosis of thoracolumbar region M41.35 Active 59685884 Problem Uncontrolled type 2 diabetes mellitus without complication, without long-term current use of insulin E11.65 Active 029568410 ALLERGIES No Information SOCIAL HISTORY Never Assessed PLAN OF CARE VITAL SIGNS MEDICATIONS Medication Instructions Dosage Frequency Start Date End Date Duration Status [place] 7.5-325 MG Orally 3 times a day 1 tablet as needed 8h October, 28 days Active RESULTS No Results PROCEDURES [...]
--- OUTSIDE RECORDS SUMMARY | 2017-11-01 08:16 | XMS REPORT ---
Author Author BOOGIE ARAUJO Organization [facility] Address [address] [place] [address] Care Team Providers Care Hand Stone Polisher Name Role Phone GAYLE BOOGIE Unavailable PROBLEMS Type Condition ICD9-CM Code [id number] Code Onset Dates Condition Status SNOMED Code Problem Thyroid nodule E04.1 Active 329958989 Problem Diabetes type 2, controlled E11.9 Active 52144147 Problem Screening breast examination Z12.39 Active 693918075 Problem Allergic rhinitis, unspecified allergic rhinitis trigger, unspecified rhinitis seasonality J30.9 Active 60381990 Problem History of abnormal cervical Pap smear Z87.898 Active 813269922 Problem History of colon polyps Z86.010 Active 345401772 Problem Thoracogenic scoliosis of thoracolumbar region M41.35 Active 60851090 Problem Uncontrolled type 2 diabetes mellitus without complication, without long-term current use of insulin E11.65 Active 999360276 ALLERGIES No Information SOCIAL HISTORY Never Assessed PLAN OF CARE VITAL SIGNS MEDICATIONS Medication Instructions Dosage Frequency Start Date End Date Duration Status [place] 7.5-325 MG Orally 3 times a day 1 tablet as needed 8h Aug, 28 days Active RESULTS No Results PROCEDURES [...]
--- OUTSIDE RECORDS SUMMARY | 2017-11-01 08:17 | XMS REPORT ---
Author Author BOOGIE ARAUJO Organization [facility] Address [address] [place] [address] Care Team Providers Care Page Designer Name Role Phone BOOGIE ARAUJO Unavailable PROBLEMS Type Condition ICD9-CM Code TBA18-DE Code Onset Dates Condition Status SNOMED Code Problem History of abnormal cervical Pap smear Z87.898 Active 832485443 Problem Thoracogenic scoliosis of thoracolumbar region M41.35 Active 55355928 Problem Uncontrolled type 2 diabetes mellitus without complication, without long-term current use of insulin E11.65 Active 013465159 Problem Diabetes type 2, controlled E11.9 Active 01563440 Problem Thyroid nodule E04.1 Active 318913911 Problem History of colon polyps Z86.010 Active 006088256 Problem Other iron deficiency anemia D50.8 Active 27588629 Problem Iron deficiency anemia due to chronic blood loss D50.0 Active 755874866 Problem Screening breast examination Z12.39 Active 645374018 Problem Allergic rhinitis, unspecified allergic rhinitis trigger, unspecified rhinitis seasonality J30.9 Active 91960172 Problem Controlled type 2 diabetes mellitus without complication, without long -term current use of insulin E11.9 Active 707927891 Problem Other chronic pain G89.29 Active 54136233 ALLERGIES No Information ENCOUNTERS Encounter Location Date Diagnosis [place] [id number] [place] [address] 35746- 6091 Sep, Diabetes type 2, controlled E11.9 [facility] [id number] [address] 3[address] Sep, [facility] [id number] [place] [address] 41824- 8547 Sep, Diabetes type 2, controlled E11.9 [facility] [id number] [address] 5074 Sep, Other chronic pain G89.29 [place] [address] [address] 2705 Sep, Other iron deficiency anemia D50.8 [facility] [id number] [place] [address] 45910- 2415 Sep, Other iron deficiency anemia D50.8 [facility] [id number] [place] [address] 31757- 2075 Sep, Iron deficiency anemia due to chronic blood loss D50.0 and Dysuria R30.0 [place] [id number] [place] [address] 72194- 1984 Sep, Dysuria R30.0 [place] [id number] [place] [address] 20381- 8209 Sep, Iron deficiency anemia due to chronic blood loss D50.0 [place] [id number] [place] [address] 31422- 6551 Sep, [place] [id number] [place] [address] 21879- 0470 Sep, Controlled type 2 diabetes mellitus without complication, without long-term current use of insulin E11.9 ; Leg cramps R25.2 ; Low back pain M54.5 and Other chronic pain G89.29 [place] [address] [address] 1961 Sep, Controlled type 2 diabetes mellitus without complication, without long-term current use of insulin E11.9 ; Low back pain M54.5 ; Other chronic pain G89.29 and Leg cramps R25.2 [place] [id number] [place] [address] 51274- 0241 Aug, Other chronic pain G89.29 [place] [id number] [place] [address] 11134- 1625 Jul, Other chronic pain G89.29 [place] [id number] [place] [address] 71358- 4530 16 Jul, 2017 Pneumonia of left lower lobe due to infectious organism J18.1 [facility] [id number] [place] [address] 93206 -1501 12 Jul, 2017 Dysuria R30.0 ; Cough in adult patient R05 and Pneumonia of left lower lobe due to infectious organism J18.1 [facility] [address] [place] [address] 07978- 1335 08 Jul, 2017 [facility] [id number] [place] [address] 72096- 0674 Jun, Other chronic pain G89.29 [facility] [id number] [place] [address] 44828- 8075 Jun, [facility] [id number] [place] [address] 54865- 1978 Jun, Diabetes type 2, controlled E11.9 ; Back muscle spasm M62.830 and Other chronic pain G89.29 [facility] [id number] [place] [address] 13783- 3896 Jun, Screening breast examination Z12.31 [facility] [id number] [place] [address] 70173- 1539 May, Other chronic pain G89.29 [facility] [id number] [place] [address] 20363- 3129 May, [facility] [id number] [place] [address] 61842- 5959 May, UTI (urinary tract infection) N39.0 [facility] [id number] [place] [address] 30167- 7615 May, Dysuria R30.0 [facility] [address] [place] [address] 75075- 2122 May, Dysuria R30.0 [facility] [id number] [place] [address] 52205- 1340 May, Diabetes type 2, controlled E11.9 ; long term current use of 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 Z79.891 and Other chronic pain G89.29 [facility] [id number] [place] [address] 97055- 6965 Apr, Diabetes type 2, controlled E11.9 [facility] [id number] [place] [address] 20127 -2679 Mar, Paronychia of great toe, right L03.031 and Dysuria R30.0 [facility] [id number] [place] [address] 62562- 3580 Mar, Diabetes type 2, controlled E11.9 [facility] [id number] [place] [address] 14616- 1763 28 Feb, 2017 Diabetes type 2, controlled E11.9 [facility] [id number] [place] [address] [id number] 13 Feb, 2017 Dental examination Z01.20 [facility] [id number] [place] [address] 69345- 6138 11 Feb, 2017 Diabetes type 2, controlled E11.9 [facility] [id number] [place] [address] 19174- 4310 07 Feb, 2017 Diabetes type 2, controlled E11.9 [facility] [id number] [place] [address] 70101- 1006 Jan, Diabetes type 2, controlled E11.9 [facility] [id number] [place] [address] 63519- 7509 Dec, Diabetes type 2, controlled E11.9 [facility] [id number] [place] [address] 03563- 1768 Dec, Diabetes type 2, controlled E11.9 [facility] [id number] [place] [address] 74816- 8236 Nov, Diabetes type 2, controlled E11.9 [facility] [address] [place] [address]- 1372 Nov, Diabetes type 2, controlled E11.9 [facility] [id number] [place] [address] 84401- 4359 Nov, Diabetes type 2, controlled E11.9 [facility] [id number] [place] [address] 91010- 1240 Nov, Diabetes type 2, controlled E11.9 [facility] [id number] [place] [address] 15723- 1948 Nov, Diabetes type 2, controlled E11.9 [facility] [id number] [place] [address] 35515- 3550 Nov, Diabetes type 2, controlled E11.9 [place] [id number] [place] [address] 77216- 1109 October, Pain in unspecified shoulder M25.519 [place] [id number] [place] [address] 52982- 4515 October, Diabetes type 2, controlled E11.9 and Cellulitis of right lower extremity L03.115 [place] [id number] [place] [address] 87916- 4064 October, Pain in unspecified shoulder M25.519 [place] [id number] [place] [address] 40949- 3941 Sep, Diabetes type 2, controlled E11.9 [facility] [id number] [place] [address] 11103- 2379 Aug, Pain in unspecified shoulder M25.519 [facility] [id number] [place] [address] 92867- 5109 Aug, Diabetes type 2, controlled E11.9 [facility] [id number] [place] [address] 54464- 5664 Aug, Diabetes type 2, controlled E11.9 ; Dark urine R82.99 and Localized edema R60.0 [facility] [id number] [place] [address] 01960- 0818 07 Aug, 2016 Pain in unspecified shoulder M25.519 [place] [id number] [place] [address] 10925- 9295 07 Jul, 2016 Pain in unspecified shoulder M25.519 [place] [id number] [place] [address] 33604- 8992 06 Jul, 2016 [place] [address] 35297- 1861 02 Jul, 2016 Diabetes type 2, controlled E11.9 and long term current use of 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 Z79.891 [place] [id number] [place] [address] 87950- 4581 Jun, Diabetes type 2, controlled E11.9 [place] [id number] [place] [address] 02776- 8750 Jun, Screening breast examination Z12.39 and Allergic rhinitis, unspecified allergic rhinitis trigger, unspecified rhinitis seasonality J30.9 [place] [id number] [place] [address] 70868- 3144 Jun, Pain in unspecified shoulder M25.519 [place] [id number] [place] [address] 25141- 7451 May, [place] [id number] [place] [address] 26351- 1761 May, Pain in unspecified shoulder M25.519 [place] [id number] [place] [address] 84508- 1884 05 May, 2016 Thoracogenic scoliosis of thoracolumbar region M41.35 ; Low back pain M54.5 ; Other chronic pain G89.29 and Uncontrolled type 2 diabetes mellitus without complication, without long-term current use of insulin E11.65 [place] [id number] [place] [address] 49023- 3445 Apr, [place] [address] [place] [address]- 4998 Apr, [facility] [address] [place] [address] 69213- 9425 Apr, History of type 2 diabetes mellitus Z86.39 and Encounter for immunization Z23 [facility] [address] [place] [address] 01110- 6862 Mar, [facility] [id number] [place] [address] 53168- 8460 Mar, [facility] [id number] [place] [address] 75009- 0681 Feb, [facility] [id number] [place] [address] 45908- 9365 Jan, [facility] [id number] [place] [address] 78900- 5699 Jan, [facility] [id number] [place] [address] 42002- 8113 Dec, [facility] [address] [place] [address] 59169 -6796 Dec, Sore throat J02.9 and Allergic rhinitis, unspecified allergic rhinitis type J30.9 [facility] [id number] [address]- 9119 Dec, Diabetes type 2, controlled E11.9 [facility] [id number] [place] [address] 93101- 8881 Nov, [facility] [id number] [place] [address] 14083- 2738 Nov, [facility] [id number] [place] [address] 75700- 8824 October, [facility] [address] [place] [address] 33586- 5869 October, [facility] [id number] [place] [address] 00804- 8080 Sep, [place] [address] [place] [address] 00911- 9346 Aug, [place] [address] [place] [address] 41684- 5286 Aug, Diabetes type 2, controlled E11.9 ; UTI (urinary tract infection) N39.0 and Bacterial infection A49.9 [place] [id number] [place] [address] 66082- 1776 Jul, [place] [id number] [place] [address] 72035- 1334 Jul, [place] [id number] [place] [address] 529985- 7289 Jul, Pharyngitis J02.9 and Seborrheic keratoses L82.1 [place] [id number] [place] [address] 361413- 3278 Jun, [place] [address] [place] [address] 04784- 9399 May, [place] [id number] [place] [address] 36895806- 9725 May, Skin tags, multiple acquired L91.8 ; Seborrheic keratoses L82.1 and Diabetes type 2, controlled E11.9 [place] [address] [address] 2522 May, Well woman exam Z01.419 ; Papanicolaou [...] Other fatigue R53.83 and Other hemorrhoids K64.8 [facility] [id number] [place] [address] 82851- 6472 May, [facility] [address] 74196- 0717 May, [facility] [id number] [place] [address] 47619- 1484 Apr, Seborrheic keratosis L82.1 and Diabetes type 2, controlled E11.9 [facility] [address] 47919- 1677 Apr, Seborrheic keratosis L82.1 and Diabetes type 2, controlled E11.9 [place] [address] 26319- 3362 Mar, [place] [address] 71466- 2797 Mar, [place] [address] 15578- 8944 Mar, Nevoid hyperpigmentation L81.9 ; Encounter for immunization Z23 ; Skin tags, multiple acquired L91.8 and Seborrheic keratoses L82.1 [place] [id number] [place] [address] 96492- 6792 Feb, [facility] [id number] [place] [address] 49419- 3742 Feb, [facility] [address] 88449- 5179 Feb, [facility] [id number] [place] [address] 11469- 4235 Feb, Diabetes 250.00 ; Tinea corporis 110.5 and Shoulder pain, left 719.41 [facility] [id number] [place] [address] 42991- 1825 Jan, [facility] [address] 81237- 2546 Dec, [facility] [address] [address]- 5632 Dec, [facility] [address] [address]- 2186 Dec, Seborrheic keratoses 702.19 ; Diabetes 250.00 and Hypoglycemia 251.2 [facility] [address] [place] [address] 80874- 5586 Nov, [facility] [address] [place] [address] 18978- 6151 Nov, Abnormal mammogram 793.80 [facility] [id number] [place] [address] 62770- 6739 October, Diabetes 250.00 and Colon polyp 211.3 [facility] [id number] [place] [address] 02694- 7892 Sep, [facility] [address] [address]- 4633 Sep, [facility] [address] [address]- 2077 Sep, [facility] [address] [address]- 8992 Aug, [facility] [address] [address]- 0976 Aug, [facility] [address] [address]- 3526 Jul, [facility] [address] [address]- 5906 Jul, [facility] [address] [address]- 6906 Jun, [facility] [address] [address]- 4476 Jun, [facility] [place] [facility] [address] [id number] [place] [address]- 3771 Jun, [facility] [place] [facility] [address] [id number] [place] [address]- 6431 Jun, [facility] [place] [facility] [address] [id number] [place] [address]- 4215 Jun, [facility] [place] [facility] [address] [id number] [place] [address]- 4251 Jun, [facility] [place] [facility] [address] [id number] [place] [address]- 6374 May, [facility] [place] [facility] [address] [id number] [place] [address]- 2741 May, [facility] [place] [facility] [address] [id number] [place] [address]- 5741 Apr, [facility] [place] [facility] [address] [id number] [place] [address]- 2670 Apr, [facility] [place] [facility] [address] [id number] [place] [address]- 9617 Apr, [facility] [place] [facility] [address] [id number] [place] [address]- 5556 Apr, [facility] [place] [facility] [address] [id number] [place] [address]- 2751 Apr, [facility] [place] [facility] [address] [id number] [place] [address]- 5205 Apr, [facility] [place] [facility] [address] [id number] [place] [address]- 4468 Apr, [facility] [place] [facility] [address] [id number] [place] [address]- 5503 Apr, [facility] [place] [facility] [address] [id number] [place] [address]- 8126 Apr, [facility] [place] [facility] [address] [id number] [place] [address]- 7953 Apr, [facility] [place] [facility] [address] [id number] [place] [address]- 7865 Mar, [facility] [place] [facility] [address] [id number] [place] [address]- 5106 Mar, [facility] [place] [facility] [address] [id number] [place] [address]- 3602 Mar, [facility] [place] [facility] [address] [id number] [place] [address]- 4649 Mar, [facility] [place] [facility] [address] [id number] [place] [address]- 8481 Mar, [facility] [place] [facility] [address] [id number] [place] [address]- 8029 Mar, [facility] [place] [facility] [address] [id number] [place] [address]- 6185 Mar, [facility] [place] [facility] [address] [id number] [place] [address]- 0135 Mar, [facility] [place] [facility] [address] [id number] [place] [address]- 1394 Feb, [facility] [place] [facility] [address] [id number] [place] [address]- 2748 Feb, [facility] [place] [facility] [address] [id number] [place] [address]- 1616 Feb, [facility] [place] [facility] [address] [id number] [place] [address]- 2862 Feb, [facility] [place] [facility] [address] [id number] [place] [address]- 4639 Jan, [facility] [place] [facility] [address] [id number] [place] [address]- 2691 Jan, [facility] [place] [facility] [address] [id number] [place]- 3173 Dec, [facility] [place] [facility] [address] [id number] [place] [address]- 5124 Dec, [facility] [address] [id number] [place] [address]- 6195 Nov, [facility] [place] [facility] [address] [id number] [place] [address]- 0437 Nov, [facility] [address] [id number] [place] [address]- 8222 Nov, [facility] [address] [id number] [place] [address]- 4505 Nov, [facility] [address] [id number] [place] [address]- 8806 October, [facility] [address] [id number] [place]- 2867 October, [facility] [address] [id number] [place] [address]- 3204 October, [facility] [address] [id number] [place] [address]- 1091 October, [facility] [address] [id number] [place] [address]- 9363 October, [facility] [address] [id number] [place] [address]- 6593 October, [facility] [place] [facility] [address] [id number] [place] [address]- 9374 October, [facility] [address] [id number] [place] [address]- 9004 October, [facility] [place] [facility] [address] [id number] [place] [address]- 2882 Aug, [facility] [place] [facility] [address] [id number] [place] [address] Aug, [facility] [place] [facility] [address] [id number] [place] [address] Jul, [facility] [place] [facility] [address] [id number] [place] [address] Jul, [facility] [place] [facility] [address] [id number] [place] [address] Jul, [facility] [place] [facility] [address] [id number] [place] [address] Jul, [facility] [place] [facility] [address] [id number] [place] [address] Jul, [facility] [place] [facility] [address] [id number] [place] [address] Jun, [facility] [place] [facility] [address] [id number] [place] [address] Jun, [facility] [place] [facility] [address] [id number] [place] [address] May, [facility] [place] [facility] [address] [id number] [address] May, [facility] [place] [facility] [address] [id number] [place] [address] Apr, [facility] [place] [facility] [address] [facility] [id number] [place] [address] Apr, [facility] [place] [facility] [address] [id number] [address] Mar, [facility] [place] [facility] [address] [id number] [address] Mar, [facility] [place] [facility] [address] [id number] [place] [address] Mar, [facility] [place] [facility] [address] [id number] [address] Feb, [facility] [place] [facility] [address] [id number] [place] [address] Feb, [facility] [place] [facility] [address] [id number] [place] [address] 17 Feb, 2013 [facility] [address] [id number] [place] [address] 04 Feb, 2013 [facility] [address] [id number] [place] [address] 04 Feb, 2013 [facility] [address] [id number] [place] [address] Jan, [facility] [place] [facility] [address] [id number] [place] [address] Dec, [facility] [address] [id number] [place] [address] Nov, [facility] [address] [id number] [place] [address] October, [facility] [address] [id number] [place] [address] Sep, [facility] [address] [id number] [place] [address] Aug, [facility] [address] [id number] [place] [address] Aug, [facility] [address] [id number] [place] [address] Aug, [facility] [address] [id number] [place] [address] May, [facility] [address] [id number] [place] [address] May, [facility] [place] [facility] [address] [id number] [place] [address] May, [facility] [address] [id number] [place] [address] May, [facility] [facility] [address] [id number] [place] [id number] May, [facility] [place] [facility] [address] [id number] [place] [address] Apr, [facility] [place] [facility] [address] [id number] [place] [address] 16 Apr, 2012 [facility] [place] [facility] [address] [id number] [place] [address] Apr, [facility] [place] [facility] [address] [id number] [place] [address] Apr, [facility] [place] [facility] [address] [id number] [place] [address] Apr, [facility] [place] [facility] [address] [id number] [place] [address] Apr, [facility] [place] [facility] [address] [id number] [place] [address] Apr, [facility] [place] [facility] [address] [id number] [place] [address] Apr, [facility] [place] [facility] [address] [id number] [place] [address] Mar, [facility] [place] [facility] [address] [id number] [place] [address] Mar, [facility] [place] [facility] [address] [id number] [place] [address] Mar, [facility] [place] [facility] [address] [id number] [place] [address] Mar, [facility] [place] [facility] [address] [id number] [place] [address] Mar, [facility] [place] [facility] [address] [id number] [place] [address] Mar, [facility] [place] [facility] [address] [id number] [place] [address] Mar, [facility] [place] [facility] [address] [id number] [place] [address] 28 Feb, 2012 [facility] [place] [facility] [address] [id number] [place] [address] 24 Feb, 2012 [facility] [place] [facility] [address] [id number] [place] [address] 20 Feb, 2012 [facility] [place] [facility] [address] [id number] [place] [address] Feb, [facility] [place] [facility] [address] [id number] [place] [address] 28 Jan, 2012 [facility] [place] [facility] [address] [id number] [place] [address] Jan, [facility] [place] [facility] [address] [id number] [place] [address] Jan, [facility] [place] [facility] [address] [id number] [place] [address] 15 Jan, 2012 [facility] [place] [facility] [address] [id number] [place] [address] Jan, [facility] [place] [facility] [address] [id number] [place] [address] Jan, [facility] [place] [facility] [address] [id number] [place] [address] Dec, [facility] [place] [facility] [address] [id number] [place] [address] Dec, [facility] [place] [facility] [address] [id number] [place] [address] Dec, [facility] [place] [facility] [address] [id number] [place] [address] Dec, [facility] [place] [facility] [address] [id number] [place] [address] Dec, [facility] [place] [facility] [address] [id number] [place] [address]- [address] Dec, [facility] [place] [facility] [address] [id number] [place] [address]46 17 Dec, 2011 [facility] [address] [id number] [place] [address] Dec, [facility] [place] [facility] [address] [id number] [place] [address] Nov, [facility] [address] [id number] [place] [address] 2546 Nov, [facility] [address] [id number] [place] [address] Nov, [facility] [address] [id number] [place] [address] Nov, [facility] [address] [id number] [place] [address] October, [facility] [address] [id number] [place] [address] October, [facility] [address] [id number] [place] [address] Sep, [facility] [address] [id number] [place] [address] Sep, [facility] [address] [id number] [place] [address]96 Aug, [facility] [place] [facility] [address] [id number] [place] [address]- [address] 16 Aug, 2011 [facility] [address] [id number] [place] [address] Aug, [facility] [place] [facility] [address] [id number] [place] [address]- [address] Aug, [facility] [place] [facility] [address] [id number] [place] [address]- [address] 05 Aug, 2011 [facility] [address] [id number] [place] [address] 08 Jul, 2011 [facility] [address] [id number] [place] [address]- [address] 06 Jul, 2011 [facility] [place] [facility] [address] [id number] [place] [address]- [address] Jul, [facility] [place] [facility] [address] [id number] [place] [address]- [address] Jul, [facility] [place] [facility] [address] [id number] [place] [address]- [address] Jun, [facility] [address] [id number] [place] [address] Jun, [facility] [address] [id number] [place] [address]- [address]642 Jun, [facility] [address] [id number] [place] [address]- [address] Jun, [facility] [place] [facility] [address] [id number] [place] [address]- 6945 Jun, [facility] [place] [facility] [address] [id number] [place] [address]- 7034 May, [facility] [place] [facility] [address] [id number] [place] [address] May, [facility] [place] [facility] [address] [id number] [address] May, [facility] [place] [facility] [address] [id number] [address] May, [facility] [place] [facility] [address] [id number] [place] [address]- [address]39 May, [facility] [place] [facility] [address] [id number] [address] May, [facility] [place] [facility] [address] [id number] [place] [address]349 Apr, [facility] [place] [facility] [id number] [address] 09 Apr, 2011 [facility] [id number] [address] 14 Mar, 2011 [facility] [address] [facility] [id number] [address] Mar, [facility] [id number] [address] October, [facility] [address] [facility] [id number] [address] May, [facility] [address] [id number] [address] Apr, [facility] [address] [id number] [address] 2546 Jul, [facility] [id number] [address] May, [facility] [id number] [address] May, [facility] [id number] [address] May, [facility] [id number] [address] Apr, [facility] [address] [id number] [address]- 44[address] Apr, [facility] [address] [id number] [address] 2541 Mar, [facility] [address] [id number] [address] Jan, [facility] [address] [id number] [address] 2544 Nov, IMMUNIZATIONS No Known Immunizations SOCIAL HISTORY Never Assessed REASON FOR VISIT [facility] 03/28 PLAN OF CARE VITAL SIGNS MEDICATIONS Medication Instructions Dosage Frequency Start Date End Date Duration Status Lequire 7.5-325 MG Orally 4 times a day 1 tablet as needed 6h Mar, 28 days Active RESULTS No Results PROCEDURES [...]
--- OUTSIDE RECORDS SUMMARY | 2017-11-01 08:21 | XMS REPORT | Continuity of Care Document ---
Author Author [facility] Address Unknown Phone Unavailable Allergies Active Description Code Type Severity Reaction Onset Reported/Identified Relationship to Patient Clinical Status Yes Augmentin Drug Allergy N/A N/A 07/10/2008 Yes hydrochlorothiazide Drug Allergy N/A N/A 07/10/2008 Yes Augmentin Drug Allergy 07/10/2008 Yes Dimetapp 12-Hour Non-Drowsy Extentabs Drug Allergy 07/10/2008 Yes hydrochlorothiazide Drug Allergy 07/10/2008 Yes Simcor Drug Allergy N/A N/A 10/26/2008 Yes Trilipix Drug Allergy N/A N/A 10/26/2008 Yes Simcor Drug Allergy 10/26/2008 Yes Trilipix Drug Allergy 10/26/2008 Yes buspirone 10 mg tablet Drug Allergy N/A N/A 09/12/2012 Yes buspirone 10 mg tablet Drug Allergy 09/12/2012 Yes amoxicillin trihydrate [id number] Drug Allergy Unknown N/A 11/08/2012 Yes brompheniramine maleate [id number] Drug Allergy Unknown N/A 11/08/2012 Yes buspirone HCl [id number] Drug Allergy Unknown N/A 11/08/2012 Yes celecoxib [id number] Drug Allergy Unknown N/A 11/08/2012 Yes Choline Fenofibrate [id number] Drug Allergy Unknown N/A 11/08/2012 Yes hydrochlorothiazide [id number] Drug Allergy Unknown N/A 11/08/2012 Yes niacin [id number] Drug Allergy Unknown N/A 11/08/2012 Yes Phenylpropanolamine HCl [id number] Drug Allergy Unknown N/A 11/08/2012 Yes potassium clavulanate [id number] Drug Allergy Unknown N/A 11/08/2012 Yes spironolactone [id number] Drug Allergy Unknown N/A 11/08/2012 Yes meloxicam [id number] Drug Allergy Unknown N/A 05/12/2014 Yes MIXLACAM MIXLACAM Unknown N/A 05/12/2014 Yes simvastatin [id number] Drug Allergy Unknown N/A 05/12/2014 Medications There is no data. Problems Date Dx Coded Attending Type Code Diagnosis Diagnosed By 01/11/2008 BOOGIE ARAUJO APRN 780.79 lethargy 01/11/2008 780.79 lethargy 01/11/2008 780.79 Lethargy 01/11/2008 780.79 Lethargy 01/11/2008 780.79 Lethargy 01/11/2008 780.79 Lethargy 01/11/2008 [facility] [place] Margarita 780.79 Lethargy 01/11/2008 BOOGIE ARAUJO APRN 780.79 Lethargy 01/11/2008 DARRIUS HI DO 780.79 Lethargy 01/11/2008 BOOGIE ARAUJO APRN 780.79 Lethargy 01/11/2008 LAURA HINKLE MD 780.79 Lethargy 01/11/2008 LAURA HINKLE MD 780.79 Lethargy 01/11/2008 BOOGIE ARAUJO APRN 780.79 Lethargy 01/11/2008 BOOGIE ARAUJO APRN 780.79 Lethargy 01/11/2008 BOOGIE ARAUJO APRN 780.79 Lethargy 01/11/2008 BOOGIE ARAUJO APRN 780.79 Lethargy 01/11/2008 LAURA HINKLE MD 780.79 Lethargy 01/11/2008 BOOGIE ARAUJO APRN 780.79 Lethargy 01/11/2008 BOOGIE ARAUJO APRN 780.79 Lethargy 01/11/2008 BOOGIE ARAUJO APRN 780.79 Lethargy 01/11/2008 BOOGIE ARAUJO APRN 780.79 Lethargy 01/11/2008 BOOGIE ARAUJO APRN 780.79 Lethargy 01/11/2008 BOOGIE ARAUJO APRN 780.79 Lethargy 01/11/2008 BOOGIE ARAUJO APRN 780.79 Lethargy 01/11/2008 BOOGIE ARAUJO APRN 780.79 Lethargy 01/11/2008 TAYLOR KUHN APRN 780.79 Lethargy 01/11/2008 TAYLOR KUHN APRN 780.79 Lethargy 01/11/2008 TAYLOR KUHN APRN 780.79 Lethargy 01/11/2008 BOOGIE ARAUJO APRN 780.79 Lethargy 01/11/2008 BOOGIE ARAUJO APRN 780.79 Lethargy 01/11/2008 BOOGIE ARAUJO APRN 780.79 Lethargy 01/11/2008 [facility], [place] R 780.79 lethargy 01/23/2008 BOOGIE ARAUJO APRN 250.02 Diabetes Mellitus Poorly Controlled 01/23/2008 BOOGIE ARAUJO APRN 414.01 CORONARY ARTERY STENOSIS MULTI-VESSEL 01/23/2008 BOOGIE ARAUJO APRN 719.46 PATELLOFEMORAL SYNDROME RIGHT 01/23/2008 250.02 Diabetes Mellitus Poorly Controlled 01/23/2008 414.01 CORONARY ARTERY STENOSIS MULTI-VESSEL 01/23/2008 719.46 PATELLOFEMORAL SYNDROME RIGHT 01/23/2008 250.02 Diabetes Mellitus Poorly Controlled 01/23/2008 414.01 CORONARY ARTERY STENOSIS MULTI-VESSEL 01/23/2008 719.46 Patellofemoral Syndrome Right 01/23/2008 250.02 Diabetes Mellitus Poorly Controlled 01/23/2008 414.01 CORONARY ARTERY STENOSIS MULTI-VESSEL 01/23/2008 719.46 Patellofemoral Syndrome Right 01/23/2008 250.02 Diabetes Mellitus Poorly Controlled 01/23/2008 414.01 CORONARY ARTERY STENOSIS MULTI-VESSEL 01/23/2008 719.46 Patellofemoral Syndrome Right 01/23/2008 250.02 Diabetes Mellitus Poorly Controlled 01/23/2008 414.01 CORONARY ARTERY STENOSIS MULTI-VESSEL 01/23/2008 719.46 Patellofemoral Syndrome Right 01/23/2008 [facility], [place] R 250.02 Diabetes Mellitus Poorly Controlled 01/23/2008 [facility], [place] R 414.01 CORONARY ARTERY STENOSIS MULTI-VESSEL 01/23/2008 [facility], [place] R 719.46 Patellofemoral Syndrome Right 01/23/2008 BOOGIE ARAUJO APRN 250.02 Diabetes Mellitus Poorly Controlled 01/23/2008 BOOGIE ARAUJO APRN 414.01 CORONARY ARTERY STENOSIS MULTI-VESSEL 01/23/2008 BOOGIE ARAUJO APRN 719.46 Patellofemoral Syndrome Right 01/23/2008 DARRIUS HI DO 250.02 Diabetes Mellitus Poorly Controlled 01/23/2008 DARRIUS HI DO 414.01 CORONARY ARTERY STENOSIS MULTI-VESSEL 01/23/2008 DARRIUS HI DO K 719.46 Patellofemoral Syndrome Right 01/23/2008 BOOGIE ARAUJO APRN 250.02 Diabetes Mellitus Poorly Controlled 01/23/2008 BOOGIE ARAUJO APRN 414.01 CORONARY ARTERY STENOSIS MULTI-VESSEL 01/23/2008 BOOGIE ARAUJO APRN 719.46 Patellofemoral Syndrome Right 01/23/2008 LAURA HINKLE MD 250.02 Diabetes Mellitus Poorly Controlled 01/23/2008 LAURA HINKLE MD 414.01 CORONARY ARTERY STENOSIS MULTI-VESSEL 01/23/2008 LAURA HINKLE MD 719.46 Patellofemoral Syndrome Right 01/23/2008 LAURA HINKLE MD 250.02 Diabetes Mellitus Poorly Controlled 01/23/2008 LAURA HINKLE MD 414.01 CORONARY ARTERY STENOSIS MULTI-VESSEL 01/23/2008 LAURA HINKLE MD 719.46 Patellofemoral Syndrome Right 01/23/2008 BOOGIE ARAUJO APRN 250.02 Diabetes Mellitus Poorly Controlled 01/23/2008 BOOGIE ARAUJO APRN 414.01 CORONARY ARTERY STENOSIS MULTI-VESSEL 01/23/2008 BOOGIE ARAUJO APRN 719.46 Patellofemoral Syndrome Right 01/23/2008 BOOGIE ARAUJO APRN 250.02 Diabetes Mellitus Poorly Controlled 01/23/2008 BOOGIE ARAUJO APRN 414.01 CORONARY ARTERY STENOSIS MULTI-VESSEL 01/23/2008 BOOGIE ARAUJO APRN 719.46 Patellofemoral Syndrome Right 01/23/2008 BOOGIE ARAUJO APRN 250.02 Diabetes Mellitus Poorly Controlled 01/23/2008 BOOGIE ARAUJO APRN 414.01 CORONARY ARTERY STENOSIS MULTI-VESSEL 01/23/2008 BOOGIE ARAUJO APRN 719.46 Patellofemoral Syndrome Right 01/23/2008 BOOGIE ARAUJO APRN 250.02 Diabetes Mellitus Poorly Controlled 01/23/2008 BOOGIE ARAUJO APRN 414.01 CORONARY ARTERY STENOSIS MULTI-VESSEL 01/23/2008 BOOGIE ARAUJO APRN 719.46 Patellofemoral Syndrome Right 01/23/2008 LAURA HINKLE MD 250.02 Diabetes Mellitus Poorly Controlled 01/23/2008 LAURA HINKLE MD 414.01 CORONARY ARTERY STENOSIS MULTI-VESSEL 01/23/2008 LAURA HINKLE MD 719.46 Patellofemoral Syndrome Right 01/23/2008 BOOGIE ARAUJO APRN 250.02 Diabetes Mellitus Poorly Controlled 01/23/2008 BOOGIE ARAUJO APRN 414.01 CORONARY ARTERY STENOSIS MULTI-VESSEL 01/23/2008 BOOGIE ARAUJO APRN 719.46 Patellofemoral Syndrome Right 01/23/2008 BOOGIE ARAUJO APRN 250.02 Diabetes Mellitus Poorly Controlled 01/23/2008 BOOGIE ARAUJO APRN 414.01 CORONARY ARTERY STENOSIS MULTI-VESSEL 01/23/2008 BOOGIE ARAUJO APRN 719.46 Patellofemoral Syndrome Right 01/23/2008 BOOGIE ARAUJO APRN 250.02 Diabetes Mellitus Poorly Controlled 01/23/2008 BOOGIE ARAUJO APRN 414.01 CORONARY ARTERY STENOSIS MULTI-VESSEL 01/23/2008 BOOGIE ARAUJO APRN 719.46 Patellofemoral Syndrome Right 01/23/2008 BOOGIE ARAUJO APRN 250.02 Diabetes Mellitus Poorly Controlled 01/23/2008 BOOGIE ARAUJO APRN 414.01 CORONARY ARTERY STENOSIS MULTI-VESSEL 01/23/2008 BOOGIE ARAUJO APRN 719.46 Patellofemoral Syndrome Right 01/23/2008 BOOGIE ARAUJO APRN 250.02 Diabetes Mellitus Poorly Controlled 01/23/2008 BOOGIE ARAUJO APRN 414.01 CORONARY ARTERY STENOSIS MULTI-VESSEL 01/23/2008 BOOGIE ARAUJO APRN 719.46 Patellofemoral Syndrome Right 01/23/2008 BOOGIE ARAUJO APRN 250.02 Diabetes Mellitus Poorly Controlled 01/23/2008 BOOGIE ARAUJO APRN 414.01 CORONARY ARTERY STENOSIS MULTI-VESSEL 01/23/2008 BOOGIE ARAUJO APRN 719.46 Patellofemoral Syndrome Right 01/23/2008 BOOGIE ARAUJO APRN 250.02 Diabetes Mellitus Poorly Controlled 01/23/2008 BOOGIE ARAUJO APRN 414.01 CORONARY ARTERY STENOSIS MULTI-VESSEL 01/23/2008 BOOGIE ARAUJO APRN 719.46 Patellofemoral Syndrome Right 01/23/2008 BOOGIE ARAUJO APRN 250.02 Diabetes Mellitus Poorly Controlled 01/23/2008 BOOGIE ARAUJO APRN T 414.01 CORONARY ARTERY STENOSIS MULTI-VESSEL 01/23/2008 BOOGIE ARAUJO APRN 719.46 Patellofemoral Syndrome Right 01/23/2008 [employer], TAYLOR A 250.02 Diabetes Mellitus Poorly Controlled 01/23/2008 [employer], TAYLOR A 414.01 CORONARY ARTERY STENOSIS MULTI-VESSEL 01/23/2008 [employer], TAYLOR A 719.46 Patellofemoral Syndrome Right 01/23/2008 [employer] HEL[employer], TAYLRO A 250.02 Diabetes Mellitus Poorly Controlled 01/23/2008 [employer], TAYLOR A 414.01 CORONARY ARTERY STENOSIS MULTI-VESSEL 01/23/2008 [employer] HEL[employer], TAYLOR A 719.46 Patellofemoral Syndrome Right 01/23/2008 BAMKIN REIDN, TAYLOR A 250.02 Diabetes Mellitus Poorly Controlled 01/23/2008 BAM REIDN, TAYLOR A 414.01 CORONARY ARTERY STENOSIS MULTI-VESSEL 01/23/2008 BAM REIDN, TAYLOR A 719.46 Patellofemoral Syndrome Right 01/23/2008 BOOGIE ARAUJO APRN 250.02 Diabetes Mellitus Poorly Controlled 01/23/2008 BOOGIE ARAUJO APRN 414.01 CORONARY ARTERY STENOSIS MULTI-VESSEL 01/23/2008 BOOGIE ARAUJO APRN 719.46 Patellofemoral Syndrome Right 01/23/2008 BOOGIE ARAUJO APRN 250.02 Diabetes Mellitus Poorly Controlled 01/23/2008 BOOGIE ARAUJO APRN 414.01 CORONARY ARTERY STENOSIS MULTI-VESSEL 01/23/2008 BOOGIE ARAUJO APRN 719.46 Patellofemoral Syndrome Right 01/23/2008 BOOGIE ARAUJO APRN 250.02 Diabetes Mellitus Poorly Controlled 01/23/2008 BOOGIE ARAUJO APRN 414.01 CORONARY ARTERY STENOSIS MULTI-VESSEL 01/23/2008 BOOGIE ARAUJO APRN 719.46 Patellofemoral Syndrome Right [facility]/23/2008 [facility] 250.02 Diabetes Mellitus Poorly Controlled 01/23/2008 [facility] 414.01 CORONARY ARTERY STENOSIS MULTI-VESSEL 01/23/2008 [facility], [place] R 719.46 PATELLOFEMORAL SYNDROME RIGHT 02/02/2008 BOOGIE ARAUJO APRN 465.9 ECHO VIRUS UPPER RESPIRATORY 02/02/2008 465.9 ECHO VIRUS UPPER RESPIRATORY 02/02/2008 465.9 Echo Virus Upper Respiratory 02/02/2008 465.9 Echo Virus Upper Respiratory 02/02/2008 465.9 Echo Virus Upper Respiratory 02/02/2008 465.9 Echo Virus Upper Respiratory 02/02/2008 [facility], [place] R 465.9 Echo Virus Upper Respiratory 02/02/2008 GAYLE REIDN, BOOGIE T 465.9 Echo Virus Upper Respiratory 02/02/2008 DARRIUS HI DO 465.9 Echo Virus Upper Respiratory 02/02/2008 [employer], BOOGIE T 465.9 Echo Virus Upper Respiratory 02/02/2008 LAURA HINKLE MD 465.9 Echo Virus Upper Respiratory 02/02/2008 LAURA HINKLE MD 465.9 Echo Virus Upper Respiratory 02/02/2008 [employer], BOOGIE T 465.9 Echo Virus Upper Respiratory 02/02/2008 GAYLE REIDN, BOOGIE T 465.9 Echo Virus Upper Respiratory 02/02/2008 GAYLE REIDN, BOOGIE T 465.9 Echo Virus Upper Respiratory 02/02/2008 G[employer]LE [employer] HEL[employer], BOOGIE T 465.9 Echo Virus Upper Respiratory 02/02/2008 LAURA HINKLE MD 465.9 Echo Virus Upper Respiratory 02/02/2008 GAYLE REIDN, BOOGIE T 465.9 Echo Virus Upper Respiratory 02/02/2008 G[employer]LE [employer] HELPER, BOOGIE T 465.9 Echo Virus Upper Respiratory 02/02/2008 GALYE [employer] HELPER, BOOGIE T 465.9 Echo Virus Upper Respiratory 02/02/2008 G[employer]LE [employer] HELPER, BOOGIE T 465.9 Echo Virus Upper Respiratory 02/02/2008 G[employer]LE [employer] HEL[employer], BOOGIE T 465.9 Echo Virus Upper Respiratory 02/02/2008 G[employer]LE [employer] HELPER, BOOGIE T 465.9 Echo Virus Upper Respiratory 02/02/2008 GAYLE REIDN, BOOGIE T 465.9 Echo Virus Upper Respiratory 02/02/2008 GAYLE REIDN, BOOGIE T 465.9 Echo Virus Upper Respiratory 02/02/2008 [employer], TAYLOR A 465.9 Echo Virus Upper Respiratory 02/02/2008 [employer], TAYLOR A 465.9 Echo Virus Upper Respiratory 02/02/2008 [employer], TAYLOR A 465.9 Echo Virus Upper Respiratory 02/02/2008 GAYLE REIDN, BOOGIE T 465.9 Echo Virus Upper Respiratory 02/02/2008 GAYLE REIDN, BOOGIE T 465.9 Echo Virus Upper Respiratory 02/02/2008 GAYLE REIDN, BOOGIE T 465.9 Echo Virus Upper Respiratory 02/02/2008 [facility], [place] R 465.9 ECHO VIRUS UPPER RESPIRATORY 02/09/2008 BOOGIE ARAUJO APRN 272.1 HYPERTRIGLYCERIDEMIA 02/09/2008 BOOGIE ARAUJO APRN 272.4 HYPERLIPIDEMIA UNSPECIFIED 02/09/2008 BOOGIE ARAUJO APRN 401.1 ESSENTIAL HYPERTENSION BENIGN 02/09/2008 272.1 HYPERTRIGLYCERIDEMIA 02/09/2008 272.4 HYPERLIPIDEMIA UNSPECIFIED 02/09/2008 401.1 ESSENTIAL HYPERTENSION BENIGN 02/09/2008 272.1 HYPERTRIGLYCERIDEMIA 02/09/2008 272.4 HYPERLIPIDEMIA UNSPECIFIED 02/09/2008 401.1 ESSENTIAL HYPERTENSION BENIGN 02/09/2008 272.1 HYPERTRIGLYCERIDEMIA 02/09/2008 272.4 HYPERLIPIDEMIA UNSPECIFIED 02/09/2008 401.1 ESSENTIAL HYPERTENSION BENIGN 02/09/2008 272.1 HYPERTRIGLYCERIDEMIA 02/09/2008 272.4 HYPERLIPIDEMIA UNSPECIFIED 02/09/2008 401.1 ESSENTIAL HYPERTENSION BENIGN 02/09/2008 272.1 HYPERTRIGLYCERIDEMIA 02/09/2008 272.4 HYPERLIPIDEMIA UNSPECIFIED 02/09/2008 401.1 ESSENTIAL HYPERTENSION BENIGN 02/09/2008 [facility], [place] R 272.1 HYPERTRIGLYCERIDEMIA 02/09/2008 [facility], [place] R 272.4 HYPERLIPIDEMIA UNSPECIFIED 02/09/2008 [facility] 401.1 ESSENTIAL HYPERTENSION BENIGN 02/09/2008 BOOGIE ARAUJO APRN 272.1 HYPERTRIGLYCERIDEMIA 02/09/2008 BOOGIE ARAUJO APRN 272.4 HYPERLIPIDEMIA UNSPECIFIED 02/09/2008 BOOGIE ARAUJO APRN 401.1 ESSENTIAL HYPERTENSION BENIGN 02/09/2008 HI DO, DARRIUS K 272.1 HYPERTRIGLYCERIDEMIA 02/09/2008 HI DO, DARRIUS K 272.4 HYPERLIPIDEMIA UNSPECIFIED 02/09/2008 HI DO, DARRIUS K 401.1 ESSENTIAL HYPERTENSION BENIGN 02/09/2008 BOOGIE ARAUJO APRN 272.1 HYPERTRIGLYCERIDEMIA 02/09/2008 BOOGIE ARAUJO APRN 272.4 HYPERLIPIDEMIA UNSPECIFIED 02/09/2008 BOOGIE ARAUJO APRN 401.1 ESSENTIAL HYPERTENSION BENIGN 02/09/2008 LAURA HINKLE MD 272.1 HYPERTRIGLYCERIDEMIA 02/09/2008 LAURA HINKLE MD 272.4 HYPERLIPIDEMIA UNSPECIFIED 02/09/2008 LAURA HINKLE MD 401.1 ESSENTIAL HYPERTENSION BENIGN 02/09/2008 LAURA HINKLE MD 272.1 HYPERTRIGLYCERIDEMIA 02/09/2008 LAURA HINKLE MD 272.4 HYPERLIPIDEMIA UNSPECIFIED 02/09/2008 LAURA HINKLE MD 401.1 ESSENTIAL HYPERTENSION BENIGN 02/09/2008 [employer] [facility], BOOGIE T 272.1 HYPERTRIGLYCERIDEMIA 02/09/2008 GAYLE HOT SAW HELPERBOOGIE T 272.4 HYPERLIPIDEMIA UNSPECIFIED 02/09/2008 [employer], BOOGIE T 401.1 ESSENTIAL HYPERTENSION BENIGN 02/09/2008 [employer], BOOGIE T 272.1 HYPERTRIGLYCERIDEMIA 02/09/2008 GAYLE [employer] HELPER, BOOGIE T 272.4 HYPERLIPIDEMIA UNSPECIFIED 02/09/2008 G[employer]LE [employer] HELPER BOOGIE T 401.1 ESSENTIAL HYPERTENSION BENIGN 02/09/2008 GAYLE REIDN BOOGIE T 272.1 HYPERTRIGLYCERIDEMIA 02/09/2008 G[employer]LE [employer] HELPER, BOOGIE T 272.4 HYPERLIPIDEMIA UNSPECIFIED 02/09/2008 G[employer]LE [employer] HELPER, BOOGIE T 401.1 ESSENTIAL HYPERTENSION BENIGN 02/09/2008 BOOGIE ARAUJO APRN T 272.1 HYPERTRIGLYCERIDEMIA 02/09/2008 BOOGIE ARAUJO APRN T 272.4 HYPERLIPIDEMIA UNSPECIFIED 02/09/2008 BOOGIE ARAUJO APRN T 401.1 ESSENTIAL HYPERTENSION BENIGN 02/09/2008 LAURA HINKLE MD 272.1 HYPERTRIGLYCERIDEMIA 02/09/2008 LAURA HINKLE MD 272.4 HYPERLIPIDEMIA UNSPECIFIED 02/09/2008 LAURA HINKLE MD 401.1 ESSENTIAL HYPERTENSION BENIGN 02/09/2008 GAYLE DANIEL BOOGIE T 272.1 HYPERTRIGLYCERIDEMIA 02/09/2008 BOOGIE ARAUJO APRN T 272.4 HYPERLIPIDEMIA UNSPECIFIED 02/09/2008 BOOGIE ARAUJO APRN T 401.1 ESSENTIAL HYPERTENSION BENIGN 02/09/2008 BOOGIE ARAUJO APRN T 272.1 HYPERTRIGLYCERIDEMIA 02/09/2008 GAYLE DANIEL BOOGIE T 272.4 HYPERLIPIDEMIA UNSPECIFIED 02/09/2008 GAYLE DANIEL BOOGIE T 401.1 ESSENTIAL HYPERTENSION BENIGN 02/09/2008 GAYLE DANIEL BOOGIE T 272.1 HYPERTRIGLYCERIDEMIA 02/09/2008 GAYLE DANIEL BOOGIE T 272.4 HYPERLIPIDEMIA UNSPECIFIED 02/09/2008 G[employer]LE [employer] BOOGIE T 401.1 ESSENTIAL HYPERTENSION BENIGN 02/09/2008 BOOGIE ARAUJO APRN T 272.1 HYPERTRIGLYCERIDEMIA 02/09/2008 BOOGIE ARAUJO APRN T 272.4 HYPERLIPIDEMIA UNSPECIFIED 02/09/2008 GAYLE DANIEL BOOGIE T 401.1 ESSENTIAL HYPERTENSION BENIGN 02/09/2008 GAYLE DANIEL BOOGIE T 272.1 HYPERTRIGLYCERIDEMIA 02/09/2008 BOOGIE ARAUJO APRN T 272.4 HYPERLIPIDEMIA UNSPECIFIED 02/09/2008 [employer], BOOGIE T 401.1 ESSENTIAL HYPERTENSION BENIGN 02/09/2008 GAYLE H[employer] SAW HELPER, BOOGIE T 272.1 HYPERTRIGLYCERIDEMIA 02/09/2008 GAYLE H[employer] SAW HELPER, BOOGIE T 272.4 HYPERLIPIDEMIA UNSPECIFIED 02/09/2008 G[employer]LE [employer] HELPER, BOOGIE T 401.1 ESSENTIAL HYPERTENSION BENIGN 02/09/2008 GAYLE H[employer] SAW HELPER, BOOGIE T 272.1 HYPERTRIGLYCERIDEMIA 02/09/2008 GAYLE H[employer] SAW HELPER, BOOGIE T 272.4 HYPERLIPIDEMIA UNSPECIFIED 02/09/2008 GAYLE H[employer] HELPER, BOOGIE T 401.1 ESSENTIAL HYPERTENSION BENIGN 02/09/2008 GAYLE REIDN, BOOGIE T 272.1 HYPERTRIGLYCERIDEMIA 02/09/2008 G[employer]LE [employer] HEL[employer], BOOGIE T 272.4 HYPERLIPIDEMIA UNSPECIFIED 02/09/2008 G[employer]LE [employer], BOOGIE T 401.1 ESSENTIAL HYPERTENSION BENIGN 02/09/2008 BAMKIN REIDN, TAYLOR A 272.1 HYPERTRIGLYCERIDEMIA 02/09/2008 B[employer] HEL[employer], TAYLOR A 272.4 HYPERLIPIDEMIA UNSPECIFIED 02/09/2008 BAM [employer] HELPER, TAYLOR A 401.1 ESSENTIAL HYPERTENSION BENIGN 02/09/2008 BAM H[employer] HELPER, TAYLOR A 272.1 HYPERTRIGLYCERIDEMIA 02/09/2008 BAM HOT SA[employer] HELPER, TAYLOR A 272.4 HYPERLIPIDEMIA UNSPECIFIED 02/09/2008 BAM H[employer] SAW HELPER, TAYLOR A 401.1 ESSENTIAL HYPERTENSION BENIGN 02/09/2008 BAMKIN REIDN, TAYLOR A 272.1 HYPERTRIGLYCERIDEMIA 02/09/2008 BAM [employer] HELPER, TAYLOR A 272.4 HYPERLIPIDEMIA UNSPECIFIED 02/09/2008 BAM [employer] HELPER, TAYLOR A 401.1 ESSENTIAL HYPERTENSION BENIGN 02/09/2008 BOOGIE ARAUJO APRN T 272.1 HYPERTRIGLYCERIDEMIA 02/09/2008 BOOGIE ARAUJO APRN T 272.4 HYPERLIPIDEMIA UNSPECIFIED 02/09/2008 GAYLE REIDN BOOGIE T 401.1 ESSENTIAL HYPERTENSION BENIGN 02/09/2008 GAYLE REIDN BOOGIE T 272.1 HYPERTRIGLYCERIDEMIA 02/09/2008 GAYLE H[employer] SA[employer] HELPER BOOGIE T 272.4 HYPERLIPIDEMIA UNSPECIFIED 02/09/2008 GAYLE REIDNBOOGIE T 401.1 ESSENTIAL HYPERTENSION BENIGN 02/09/2008 G[employer]LE [employer] HELPER BOOGIE T 272.1 HYPERTRIGLYCERIDEMIA 02/09/2008 BOOGIE ARAUJO APRN T 272.4 HYPERLIPIDEMIA UNSPECIFIED 02/09/2008 BOOGIE ARAUJO APRN T 401.1 ESSENTIAL HYPERTENSION BENIGN 02/09/2008 [facility] [place] R 272.1 HYPERTRIGLYCERIDEMIA 02/09/2008 [facility], [place] R 272.4 HYPERLIPIDEMIA UNSPECIFIED 02/09/2008 [facility], [place] R 401.1 ESSENTIAL HYPERTENSION BENIGN 03/25/2008 BOOGIE ARAUJO APRN 724.3 Sciatica 03/25/2008 724.3 Sciatica 03/25/2008 724.3 Sciatica 03/25/2008 724.3 Sciatica 03/25/2008 724.3 Sciatica 03/25/2008 724.3 Sciatica 03/25/2008 [facility], [place] R 724.3 Sciatica 03/25/2008 BOOGIE ARAUJO APRN 724.3 Sciatica 03/25/2008 DARRIUS HI DO 724.3 Sciatica 03/25/2008 BOOGIE ARAUJO APRN 724.3 Sciatica 03/25/2008 LAURA HINKLE MD 724.3 Sciatica 03/25/2008 LAURA HINKLE MD 724.3 Sciatica 03/25/2008 BOOGIE ARAUJO APRN 724.3 Sciatica 03/25/2008 BOOGIE ARAUJO APRN 724.3 Sciatica 03/25/2008 BOOGIE ARAUJO APRN 724.3 Sciatica 03/25/2008 BOOGIE ARAUJO APRN 724.3 Sciatica 03/25/2008 LAURA HINKLE MD 724.3 Sciatica 03/25/2008 BOOGIE ARAUJO APRN 724.3 Sciatica 03/25/2008 BOOGIE ARAUJO APRN 724.3 Sciatica 03/25/2008 BOOGIE ARAUJO APRN 724.3 Sciatica 03/25/2008 BOOGIE ARAUJO APRN 724.3 Sciatica 03/25/2008 BOOGIE ARAUJO APRN 724.3 Sciatica 03/25/2008 BOOGIE ARAUJO APRN 724.3 Sciatica 03/25/2008 BOOGIE ARAUJO APRN 724.3 Sciatica 03/25/2008 BOOGIE ARAUJO APRN 724.3 Sciatica 03/25/2008 TAYLOR KUHN APRN A 724.3 Sciatica 03/25/2008 TAYLOR KUHN APRN A 724.3 Sciatica 03/25/2008 TAYLOR KUHN APRN A 724.3 Sciatica 03/25/2008 BOOGIE ARAUJO APRN 724.3 Sciatica 03/25/2008 BOOGIE ARAUJO APRN 724.3 Sciatica 03/25/2008 BOOGIE ARAUJO APRN 724.3 Sciatica 03/25/2008 [facility] [place] R 724.3 Sciatica 05/22/2008 BOOGIE ARAUJO APRN V72.31 Routine Gynecological Examination 05/22/2008 V72.31 Routine Gynecological Examination 05/22/2008 V72.31 Routine Gynecological Examination 05/22/2008 V72.31 Routine Gynecological Examination 05/22/2008 V72.31 Routine Gynecological Examination 05/22/2008 V72.31 Routine Gynecological Examination 05/22/2008 [facility], [place] R V72.31 Routine Gynecological Examination 05/22/2008 BOOGIE ARAUJO APRN V72.31 Routine Gynecological Examination 05/22/2008 DARRIUS HI DO V72.31 Routine Gynecological Examination 05/22/2008 BOOGIE ARAUJO APRN V72.31 Routine Gynecological Examination 05/22/2008 LAURA HINKLE MD V72.31 Routine Gynecological Examination 05/22/2008 LAURA HINKLE MD V72.31 Routine Gynecological Examination 05/22/2008 BOOGIE ARAUJO APRN V72.31 Routine Gynecological Examination 05/22/2008 BOOGIE ARAUJO APRN V72.31 Routine Gynecological Examination 05/22/2008 BOOGIE ARAUJO APRN V72.31 Routine Gynecological Examination 05/22/2008 BOOGIE ARAUJO APRN V72.31 Routine Gynecological Examination 05/22/2008 LAURA HINKLE MD V72.31 Routine Gynecological Examination 05/22/2008 BOOGIE ARAUJO APRN V72.31 Routine Gynecological Examination 05/22/2008 BOOGIE ARAUJO APRN V72.31 Routine Gynecological Examination 05/22/2008 BOOGIE ARAUJO APRN V72.31 Routine Gynecological Examination 05/22/2008 BOOGIE ARAUJO APRN V72.31 Routine Gynecological Examination 05/22/2008 BOOGIE ARAUJO APRN V72.31 Routine Gynecological Examination 05/22/2008 BOOGIE ARAUJO APRN V72.31 Routine Gynecological Examination 05/22/2008 BOOGIE ARAUJO APRN V72.31 Routine Gynecological Examination 05/22/2008 BOOGIE ARAUJO APRN V72.31 Routine Gynecological Examination 05/22/2008 [employer], TAYLOR A V72.31 Routine Gynecological Examination 05/22/2008 [employer], TAYLOR A V72.31 Routine Gynecological Examination 05/22/2008 [employer], TAYLOR A V72.31 Routine Gynecological Examination 05/22/2008 [employer], BOOGIE T V72.31 Routine Gynecological Examination 05/22/2008 GAYLE REIDN, BOOGIE T V72.31 Routine Gynecological Examination 05/22/2008 [employer], BOOGIE T V72.31 Routine Gynecological Examination 05/22/2008 [facility], [place] R V72.31 Routine Gynecological Examination 07/10/2008 GAYLE REIDN, BOOGIE T 786.2 Cough 07/10/2008 786.2 Cough 07/10/2008 786.2 Cough 07/10/2008 786.2 Cough 07/10/2008 786.2 Cough 07/10/2008 786.2 Cough 07/10/2008 [facility], [place] R 786.2 Cough 07/10/2008 GAYLE REIDN, BOOGIE T 786.2 Cough 07/10/2008 DARRIUS HI DO 786.2 Cough 07/10/2008 GAYLE REIDN, BOOGIE T 786.2 Cough 07/10/2008 LAURA HINKLE MD 786.2 Cough 07/10/2008 LAURA HINKLE MD 786.2 Cough 07/10/2008 GAYLE REIDN, BOOGIE T 786.2 Cough 07/10/2008 GAYLE REIDN, BOOGIE T 786.2 Cough 07/10/2008 GAYLE REIDN, BOOGIE T 786.2 Cough 07/10/2008 [employer], BOOGIE T 786.2 Cough 07/10/2008 LAURA HINKLE MD 786.2 Cough 07/10/2008 [employer], BOOGIE T 786.2 Cough 07/10/2008 [employer], BOOGIE T 786.2 Cough 07/10/2008 [employer], BOOGIE T 786.2 Cough 07/10/2008 [employer], BOOGIE T 786.2 Cough 07/10/2008 [employer], BOOGIE T 786.2 Cough 07/10/2008 GAYLE REIDN, BOOGIE T 786.2 Cough 07/10/2008 GAYLE REIDN, BOOGIE T 786.2 Cough 07/10/2008 [employer], BOOGIE T 786.2 Cough 07/10/2008 BAM REIDN, TAYLOR A 786.2 Cough 07/10/2008 BAM REIDN, TAYLOR A 786.2 Cough 07/10/2008 [employer], TAYLOR A 786.2 Cough 07/10/2008 [employer], BOOGIE T 786.2 Cough 07/10/2008 [employer], BOOGIE T 786.2 Cough 07/10/2008 [employer], BOOGIE T 786.2 Cough 07/10/2008 [facility], [place] R 786.2 Cough 07/25/2008 [employer], BOOGIE T 250.00 DIABETES MELLITUS 07/25/2008 250.00 DIABETES MELLITUS 07/25/2008 250.00 DIABETES MELLITUS 07/25/2008 250.00 DIABETES MELLITUS 07/25/2008 250.00 DIABETES MELLITUS 07/25/2008 250.00 DIABETES MELLITUS 07/25/2008 [facility], [place] R 250.00 DIABETES MELLITUS 07/25/2008 [employer], BOOGIE T 250.00 DIABETES MELLITUS 07/25/2008 DARRIUS HI DO 250.00 DIABETES MELLITUS 07/25/2008 [employer], BOOGIE T 250.00 DIABETES MELLITUS 07/25/2008 LAURA HINKLE MD 250.00 DIABETES MELLITUS 07/25/2008 LAURA HINKLE MD 250.00 DIABETES MELLITUS 07/25/2008 GAYLE REIDN, BOOGIE T 250.00 DIABETES MELLITUS 07/25/2008 GAYLE REIDN, BOOGIE T 250.00 DIABETES MELLITUS 07/25/2008 GAYLE REIDN, BOOGIE T 250.00 DIABETES MELLITUS 07/25/2008 GAYLE REIDN, BOOGIE T 250.00 DIABETES MELLITUS 07/25/2008 LAURA HINKLE MD 250.00 DIABETES MELLITUS 07/25/2008 GAYLE REIDN, BOOGIE T 250.00 DIABETES MELLITUS 07/25/2008 GAYLE REIDN, BOOGIE T 250.00 DIABETES MELLITUS 07/25/2008 GAYLE REIDN, BOOGIE T 250.00 DIABETES MELLITUS 07/25/2008 GAYLE H[employer] HELPER, BOOGIE T 250.00 DIABETES MELLITUS 07/25/2008 GAYLE H[employer] SAW HELPER, BOOGIE T 250.00 DIABETES MELLITUS 07/25/2008 GAYLE REIDN, BOOGIE T 250.00 DIABETES MELLITUS 07/25/2008 GAYLE H[employer] SAW HELPER, BOOGIE T 250.00 DIABETES MELLITUS 07/25/2008 GAYLE [employer] HELPER, BOOGIE T 250.00 DIABETES MELLITUS 07/25/2008 BAM HOT SAW HELPER, TAYLOR A 250.00 DIABETES MELLITUS 07/25/2008 BAM HOT SAW HELPER, TAYLOR A 250.00 DIABETES MELLITUS 07/25/2008 BAM HOT SAW HELPER, TAYLOR A 250.00 DIABETES MELLITUS 07/25/2008 BOOGIE ARAUJO APRN 250.00 DIABETES MELLITUS 07/25/2008 BOOGIE ARAUJO APRN 250.00 DIABETES MELLITUS 07/25/2008 BOOGIE ARAUJO APRN 250.00 DIABETES MELLITUS 07/25/2008 [facility], [place] R 250.00 DIABETES MELLITUS 10/26/2008 BOOGIE ARAUJO APRN T 110.5 Dermatophytosis Tinea Corporis 10/26/2008 110.5 Dermatophytosis Tinea Corporis 10/26/2008 110.5 Dermatophytosis Tinea Corporis 10/26/2008 110.5 Dermatophytosis Tinea Corporis 10/26/2008 110.5 Dermatophytosis Tinea Corporis 10/26/2008 110.5 Dermatophytosis Tinea Corporis 10/26/2008 [facility], [place] R 110.5 Dermatophytosis Tinea Corporis 10/26/2008 BOOGIE ARAUJO APRN 110.5 Dermatophytosis Tinea Corporis 10/26/2008 DARRIUS HI DO 110.5 Dermatophytosis Tinea Corporis 10/26/2008 BOOGIE ARAUJO APRN 110.5 Dermatophytosis Tinea Corporis 10/26/2008 LAURA HINKLE MD 110.5 Dermatophytosis Tinea Corporis 10/26/2008 LAURA HINKLE MD 110.5 Dermatophytosis Tinea Corporis 10/26/2008 BOOGIE ARAUJO APRN 110.5 Dermatophytosis Tinea Corporis 10/26/2008 BOOGIE ARAUJO APRN 110.5 Dermatophytosis Tinea Corporis 10/26/2008 BOOGIE ARAUJO APRN 110.5 Dermatophytosis Tinea Corporis 10/26/2008 BOOGIE ARAUJO APRN 110.5 Dermatophytosis Tinea Corporis 10/26/2008 LAURA HINKLE MD 110.5 Dermatophytosis Tinea Corporis 10/26/2008 BOOGIE ARAUJO APRN 110.5 Dermatophytosis Tinea Corporis 10/26/2008 BOOGIE ARAUJO APRN 110.5 Dermatophytosis Tinea Corporis 10/26/2008 BOOGIE ARAUJO APRN 110.5 Dermatophytosis Tinea Corporis 10/26/2008 BOOGIE ARAUJO APRN 110.5 Dermatophytosis Tinea Corporis 10/26/2008 BOOGIE ARAUJO APRN T 110.5 Dermatophytosis Tinea Corporis 10/26/2008 BOOGIE ARAUJO APRN T 110.5 Dermatophytosis Tinea Corporis 10/26/2008 BOOGIE ARAUJO APRN 110.5 Dermatophytosis Tinea Corporis 10/26/2008 BOOGIE ARAUJO APRN 110.5 Dermatophytosis Tinea Corporis 10/26/2008 BAM H[employer] SAW HELPER, TAYLOR A 110.5 Dermatophytosis Tinea Corporis 10/26/2008 BAM HOT SAW HELPER, TAYLOR A 110.5 Dermatophytosis Tinea Corporis 10/26/2008 BAM APRN, TAYLOR A 110.5 Dermatophytosis Tinea Corporis 10/26/2008 BOOGIE ARAUJO APRN 110.5 Dermatophytosis Tinea Corporis 10/26/2008 BOOGIE ARAUJO APRN 110.5 Dermatophytosis Tinea Corporis 10/26/2008 BOOGIE ARAUJO APRN 110.5 Dermatophytosis Tinea Corporis [facility]/26/2008 [facility] Dermatophytosis Tinea Corporis 11/28/2008 BOOGIE ARAUJO APRN 381.81 Dysfunction Of Eustachian Tube 11/28/2008 381.81 Dysfunction Of Eustachian Tube 11/28/2008 381.81 Dysfunction Of Eustachian Tube 11/28/2008 381.81 Dysfunction Of Eustachian Tube 11/28/2008 381.81 Dysfunction Of Eustachian Tube 11/28/2008 381.81 Dysfunction Of Eustachian Tube 11/28/2008 [facility], [place] R 381.81 Dysfunction Of Eustachian Tube 11/28/2008 BOOGIE ARAUJO APRN 381.81 Dysfunction Of Eustachian Tube 11/28/2008 DARRIUS HI DO 381.81 Dysfunction Of Eustachian Tube 11/28/2008 BOOGIE ARAUJO APRN 381.81 Dysfunction Of Eustachian Tube 11/28/2008 LAURA HINKLE MD 381.81 Dysfunction Of Eustachian Tube 11/28/2008 LAURA HINKLE MD 381.81 Dysfunction Of Eustachian Tube 11/28/2008 BOOGIE ARAUJO APRN 381.81 Dysfunction Of Eustachian Tube 11/28/2008 BOOGIE ARAUJO APRN 381.81 Dysfunction Of Eustachian Tube 11/28/2008 BOOGIE ARAUJO APRN 381.81 Dysfunction Of Eustachian Tube 11/28/2008 BOOGIE ARAUJO APRN 381.81 Dysfunction Of Eustachian Tube 11/28/2008 LAURA HINKLE MD 381.81 Dysfunction Of Eustachian Tube 11/28/2008 BOOGIE ARAUJO APRN 381.81 Dysfunction Of Eustachian Tube 11/28/2008 BOOGIE ARAUJO APRN 381.81 Dysfunction Of Eustachian Tube 11/28/2008 BOOGIE ARAUJO APRN 381.81 Dysfunction Of Eustachian Tube 11/28/2008 BOOGIE ARAUJO APRN 381.81 Dysfunction Of Eustachian Tube 11/28/2008 BOOGIE ARAUJO APRN 381.81 Dysfunction Of Eustachian Tube 11/28/2008 BOOGIE ARAUJO APRN 381.81 Dysfunction Of Eustachian Tube 11/28/2008 BOOGIE ARAUJO APRN 381.81 Dysfunction Of Eustachian Tube 11/28/2008 BOOGIE ARAUJO APRN 381.81 Dysfunction Of Eustachian Tube 11/28/2008 TAYLOR KUHN APRN A 381.81 Dysfunction Of Eustachian Tube 11/28/2008 TAYLOR KUHN APRN A 381.81 Dysfunction Of Eustachian Tube 11/28/2008 TAYLOR KUHN APRN A 381.81 Dysfunction Of Eustachian Tube 11/28/2008 BOOGIE ARAUJO APRN 381.81 Dysfunction Of Eustachian Tube 11/28/2008 BOOGIE ARAUJO APRN 381.81 Dysfunction Of Eustachian Tube 11/28/2008 BOOGIE ARAUJO APRN 381.81 Dysfunction Of Eustachian Tube 11/28/2008 [facility] [place] Avila 381.81 Dysfunction Of Eustachian Tube 01/25/2009 BOOGIE ARAUJO APRN 681.11 Onychia And Paronychia Of Toe 01/25/2009 681.11 Onychia And Paronychia Of Toe 01/25/2009 681.11 Onychia And Paronychia Of Toe 01/25/2009 681.11 Onychia And Paronychia Of Toe 01/25/2009 681.11 Onychia And Paronychia Of Toe 01/25/2009 681.11 Onychia And Paronychia Of Toe 01/25/2009 [facility], [place] Avila 681.11 Onychia And Paronychia Of Toe 01/25/2009 BOOGIE ARAUJO APRN 681.11 Onychia And Paronychia Of Toe 01/25/2009 [place] HI DO 681.11 Onychia And Paronychia Of Toe 01/25/2009 BOOGIE ARAUJO APRN 681.11 Onychia And Paronychia Of Toe 01/25/2009 LAURA HINKLE MD 681.11 Onychia And Paronychia Of Toe 01/25/2009 LAURA HINKLE MD 681.11 Onychia And Paronychia Of Toe 01/25/2009 BOOGIE ARAUJO APRN 681.11 Onychia And Paronychia Of Toe 01/25/2009 BOOGIE ARAUJO APRN 681.11 Onychia And Paronychia Of Toe 01/25/2009 BOOGIE ARAUJO APRN 681.11 Onychia And Paronychia Of Toe 01/25/2009 BOOGIE ARAUJO APRN 681.11 Onychia And Paronychia Of Toe 01/25/2009 LAURA HINKLE MD 681.11 Onychia And Paronychia Of Toe 01/25/2009 BOOGIE ARAUJO APRN 681.11 Onychia And Paronychia Of Toe 01/25/2009 BOOGIE ARAUJO APRN 681.11 Onychia And Paronychia Of Toe 01/25/2009 BOOGIE ARAUJO APRN 681.11 Onychia And Paronychia Of Toe 01/25/2009 BOOGIE ARAUJO APRN 681.11 Onychia And Paronychia Of Toe 01/25/2009 BOOGIE ARAUJO APRN 681.11 Onychia And Paronychia Of Toe 01/25/2009 BOOGIE ARAUJO APRN 681.11 Onychia And Paronychia Of Toe 01/25/2009 BOOGIE ARAUJO APRN 681.11 Onychia And Paronychia Of Toe 01/25/2009 BOOGIE ARAUJO APRN 681.11 Onychia And Paronychia Of Toe 01/25/2009 BAMKIN DANIEL, TAYLOR A 681.11 Onychia And Paronychia Of Toe 01/25/2009 BAMKIN DANIEL, TAYLOR A 681.11 Onychia And Paronychia Of Toe 01/25/2009 BAM DANIEL, TAYLOR A 681.11 Onychia And Paronychia Of Toe 01/25/2009 BOOGIE ARAUJO APRN 681.11 Onychia And Paronychia Of Toe 01/25/2009 BOOGIE ARAUJO APRN 681.11 Onychia And Paronychia Of Toe 01/25/2009 BOOGIE ARAUJO APRN 681.11 Onychia And Paronychia Of Toe 01/25/2009 [facility], [place] Avila 681.11 Onychia And Paronychia Of Toe 08/06/2009 BOOGIE ARAUJO APRN 780.60 Fever [as Symptom] 08/06/2009 BOOGIE ARAUJO APRN 786.05 Shortness Of Breath 08/06/2009 780.60 Fever [as Symptom] 08/06/2009 786.05 Shortness Of Breath 08/06/2009 780.60 Fever [as Symptom] 08/06/2009 786.05 Shortness Of Breath 08/06/2009 780.60 Fever [as Symptom] 08/06/2009 786.05 Shortness Of Breath 08/06/2009 780.60 Fever [as Symptom] 08/06/2009 786.05 Shortness Of Breath 08/06/2009 780.60 Fever [as Symptom] 08/06/2009 786.05 Shortness Of Breath 08/06/2009 [facility], [place] R 780.60 Fever [as Symptom] 08/06/2009 [facility], [place] R 786.05 Shortness Of Breath 08/06/2009 BOOGIE ARAUJO APRN 780.60 Fever [as Symptom] 08/06/2009 BOOGIE ARAUJO APRN 786.05 Shortness Of Breath 08/06/2009 HI DOLAURAA K 780.60 Fever [as Symptom] 08/06/2009 HI DO DARRIUS K 786.05 Shortness Of Breath 08/06/2009 BOOGIE ARAUJO APRN 780.60 Fever [as Symptom] 08/06/2009 [employer] [employer], BOOGIE T 786.05 Shortness Of Breath 08/06/2009 LAURA HINKLE MD 780.60 Fever [as Symptom] 08/06/2009 LAURA HINKLE MD 786.05 Shortness Of Breath 08/06/2009 LAURA HINKLE MD 780.60 Fever [as Symptom] 08/06/2009 LAURA HINKLE MD 786.05 Shortness Of Breath 08/06/2009 BOOGIE ARAUJO APRN T 780.60 Fever [as Symptom] 08/06/2009 BOOGIE ARAUJO APRN T 786.05 Shortness Of Breath 08/06/2009 GAYLE DANIEL, BOOGIE T 780.60 Fever [as Symptom] 08/06/2009 BOOGIE ARAUJO APRN T 786.05 Shortness Of Breath 08/06/2009 BOOGIE ARAUJO APRN T 780.60 Fever [as Symptom] 08/06/2009 BOOGIE ARAUJO APRN T 786.05 Shortness Of Breath 08/06/2009 BOOGIE ARAUJO APRN T 780.60 Fever [as Symptom] 08/06/2009 BOOGIE ARAUJO APRN T 786.05 Shortness Of Breath 08/06/2009 LAURA HINKLE MD 780.60 Fever [as Symptom] 08/06/2009 LAURA HINKLE MD 786.05 Shortness Of Breath 08/06/2009 BOOGIE ARAUJO APRN T 780.60 Fever [as Symptom] 08/06/2009 BOOGIE ARAUJO APRN T 786.05 Shortness Of Breath 08/06/2009 BOOGIE ARAUJO APRN T 780.60 Fever [as Symptom] 08/06/2009 BOOGIE ARAUJO APRN T 786.05 Shortness Of Breath 08/06/2009 BOOGIE ARAUJO APRN T 780.60 Fever [as Symptom] 08/06/2009 GAYLE DANIEL BOOGIE T 786.05 Shortness Of Breath 08/06/2009 BOOGIE ARAUJO APRN T 780.60 Fever [as Symptom] 08/06/2009 GAYLE DANIEL BOOGIE T 786.05 Shortness Of Breath 08/06/2009 BOOGIE ARAUJO APRN T 780.60 Fever [as Symptom] 08/06/2009 BOOGIE ARAUJO APRN T 786.05 Shortness Of Breath 08/06/2009 BOOGIE ARAUJO APRN T 780.60 Fever [as Symptom] 08/06/2009 BOOGIE ARAUJO APRN T 786.05 Shortness Of Breath 08/06/2009 BOOGIE ARAUJO APRN T 780.60 Fever [as Symptom] 08/06/2009 BOOGIE ARAUJO APRN T 786.05 Shortness Of Breath 08/06/2009 GAYLE REIDN, BOOGIE T 780.60 Fever [as Symptom] 08/06/2009 GAYLE REIDN, BOOGIE T 786.05 Shortness Of Breath 08/06/2009 B[employer] H[employer] HELPER, TAYLOR A 780.60 Fever [as Symptom] 08/06/2009 BAM H[employer] SA[employer] HELPER, TAYLOR A 786.05 Shortness Of Breath 08/06/2009 BAM HOT SAW HELPER, TAYLOR A 780.60 Fever [as Symptom] 08/06/2009 BAM HOT SAW HELPER, TAYLOR A 786.05 Shortness Of Breath 08/06/2009 BAM HOT SAW HELPER, TAYLOR A 780.60 Fever [as Symptom] 08/06/2009 BAM HOT SAW HELPER, TAYLOR A 786.05 Shortness Of Breath 08/06/2009 GAYLE DANIEL, BOOGIE T 780.60 Fever [as Symptom] 08/06/2009 BOOGIE ARAUJO APRN T 786.05 Shortness Of Breath 08/06/2009 BOOGIE ARAUJO APRN T 780.60 Fever [as Symptom] 08/06/2009 BOOGIE ARAUJO APRN T 786.05 Shortness Of Breath 08/06/2009 GAYLE DANIEL, BOOGIE T 780.60 Fever [as Symptom] 08/06/2009 BOOGIE ARAUJO APRN T 786.05 Shortness Of Breath 08/06/2009 [facility], [place] R 780.60 Fever [as Symptom] 08/06/2009 [facility], [place] R 786.05 Shortness Of Breath 08/13/2009 BOOGIE ARAUJO APRN 480.0 Pneumonia Due To Adenovirus 08/13/2009 480.0 Pneumonia Due To Adenovirus 08/13/2009 480.0 Pneumonia Due To Adenovirus 08/13/2009 480.0 Pneumonia Due To Adenovirus 08/13/2009 480.0 Pneumonia Due To Adenovirus 08/13/2009 480.0 Pneumonia Due To Adenovirus 08/13/2009 [facility], [place] R 480.0 Pneumonia Due To Adenovirus 08/13/2009 BOOGIE ARAUJO APRN 480.0 Pneumonia Due To Adenovirus 08/13/2009 DARRIUS HI DO 480.0 Pneumonia Due To Adenovirus 08/13/2009 BOOGIE ARAUJO APRN 480.0 Pneumonia Due To Adenovirus 08/13/2009 LAURA HINKLE MD 480.0 Pneumonia Due To Adenovirus 08/13/2009 LAURA HINKLE MD 480.0 Pneumonia Due To Adenovirus 08/13/2009 G[employer]LE [employer] HEL[employer], BOOGIE T 480.0 Pneumonia Due To Adenovirus 08/13/2009 GAYLE H[employer] SAW HELPER, BOOGIE T 480.0 Pneumonia Due To Adenovirus 08/13/2009 GAYLE HOT SAW HELPER, BOOGIE T 480.0 Pneumonia Due To Adenovirus 08/13/2009 GAYLE HOT SAW HELPER, BOOGIE T 480.0 Pneumonia Due To Adenovirus 08/13/2009 LAURA HINKLE MD 480.0 Pneumonia Due To Adenovirus 08/13/2009 G[employer]LE [employer] HELPER, BOOGIE T 480.0 Pneumonia Due To Adenovirus 08/13/2009 GAYLE HOT SAW HELPER, BOOGIE T 480.0 Pneumonia Due To Adenovirus 08/13/2009 GAYLE HOT SAW HELPER, BOOGIE T 480.0 Pneumonia Due To Adenovirus 08/13/2009 GAYLE HOT SAW HELPER, BOOGIE T 480.0 Pneumonia Due To Adenovirus 08/13/2009 GAYLE HOT SAW HELPER, BOOGIE T 480.0 Pneumonia Due To Adenovirus 08/13/2009 GAYLE HOT SAW HELPER, BOOGIE T 480.0 Pneumonia Due To Adenovirus 08/13/2009 GAYLE HOT SAW HELPER, BOOGIE T 480.0 Pneumonia Due To Adenovirus 08/13/2009 GAYLE HOT SAW HELPER, BOOGIE T 480.0 Pneumonia Due To Adenovirus 08/13/2009 BAM HOT SAW HELPER, TAYLOR A 480.0 Pneumonia Due To Adenovirus 08/13/2009 BAM HOT SAW HELPER, TAYLOR A 480.0 Pneumonia Due To Adenovirus 08/13/2009 BAM HOT SAW HELPER, TAYLOR A 480.0 Pneumonia Due To Adenovirus 08/13/2009 GAYLE H[employer] SA[employer] HELPER, BOOGIE T 480.0 Pneumonia Due To Adenovirus 08/13/2009 GAYLE HOT SAW HELPER, BOOGIE T 480.0 Pneumonia Due To Adenovirus 08/13/2009 GAYLE HOT SAW HELPER, BOOGIE T 480.0 Pneumonia Due To Adenovirus 08/13/2009 [facility], [place] R 480.0 Pneumonia Due To Adenovirus 10/17/2009 GAYLE REIDN, BOOGIE T 719.40 Joint Pain, Localized 10/17/2009 GAYLE REIDN, BOOGIE T 787.91 Diarrhea 10/17/2009 719.40 Joint Pain, Localized 10/17/2009 787.91 Diarrhea 10/17/2009 719.40 Joint Pain, Localized 10/17/2009 787.91 Diarrhea 10/17/2009 719.40 Joint Pain, Localized 10/17/2009 787.91 Diarrhea 10/17/2009 719.40 Joint Pain, Localized 10/17/2009 787.91 Diarrhea 10/17/2009 719.40 Joint Pain, Localized 10/17/2009 787.91 Diarrhea 10/17/2009 [facility], [place] R 719.40 Joint Pain, Localized 10/17/2009 [facility], [place] R 787.91 Diarrhea 10/17/2009 BOOGIE ARAUJO APRN T 719.40 Joint Pain, Localized 10/17/2009 BOOGIE ARAUJO APRN T 787.91 Diarrhea 10/17/2009 HI DO, DARRIUS K 719.40 Joint Pain, Localized 10/17/2009 HI DO, DARRIUS K 787.91 Diarrhea 10/17/2009 BOOGIE ARAUJO APRN T 719.40 Joint Pain, Localized 10/17/2009 BOOGIE ARAUJO APRN T 787.91 Diarrhea 10/17/2009 LAURA HINKLE MD 719.40 Joint Pain, Localized 10/17/2009 LAURA HINKLE MD7.91 Diarrhea 10/17/2009 LAURA HINKLE MD.40 Joint Pain, Localized 10/17/2009 LAURA HINKLE MD7.91 Diarrhea 10/17/2009 BOOGIE ARAUJO APRN T 719.40 Joint Pain, Localized 10/17/2009 BOOGIE ARAUJO APRN T 787.91 Diarrhea 10/17/2009 BOOGIE ARAUJO APRN T 719.40 Joint Pain, Localized 10/17/2009 BOOGIE ARAUJO APRN T 787.91 Diarrhea 10/17/2009 BOOGIE ARAUJO APRN T 719.40 Joint Pain, Localized 10/17/2009 BOOGIE ARAUJO APRN T 787.91 Diarrhea 10/17/2009 BOOGIE ARAUJO APRN T 719.40 Joint Pain, Localized 10/17/2009 BOOGIE ARAUJO APRN T 787.91 Diarrhea 10/17/2009 LAURA HINKLE MD.40 Joint Pain, Localized 10/17/2009 LAURA HINKLE MD.91 Diarrhea 10/17/2009 BOOGIE ARAUJO APRN T 719.40 Joint Pain, Localized 10/17/2009 BOOGIE ARAUJO APRN T 787.91 Diarrhea 10/17/2009 BOOGIE ARAUJO APRN T 719.40 Joint Pain, Localized 10/17/2009 BOOGIE ARAUJO APRN T 787.91 Diarrhea 10/17/2009 [employer] HELPER, BOOGIE T 719.40 Joint Pain, Localized 10/17/2009 GAYLE HOT SAW HELPER, BOOGIE T 787.91 Diarrhea 10/17/2009 GAYLE HOT SAW HELPER, BOOGIE T 719.40 Joint Pain, Localized 10/17/2009 GAYLE HOT SAW HELPER, BOOGIE T 787.91 Diarrhea 10/17/2009 GAYLE HOT SAW HELPER, BOOGIE T 719.40 Joint Pain, Localized 10/17/2009 GAYLE H[employer] SAW HELPER, BOOGIE T 787.91 Diarrhea 10/17/2009 GAYLE H[employer] SAW HELPER, BOOGIE T 719.40 Joint Pain, Localized 10/17/2009 GAYLE HOT SAW HELPER, BOOGIE T 787.91 Diarrhea 10/17/2009 GAYLE HOT SAW HELPER, BOOGIE T 719.40 Joint Pain, Localized 10/17/2009 GAYLE HOT SAW HELPER, BOOGIE T 787.91 Diarrhea 10/17/2009 GAYLE HOT SAW HELPER, BOOGIE T 719.40 Joint Pain, Localized 10/17/2009 GAYLE HOT SAW HELPER, BOOGIE T 787.91 Diarrhea 10/17/2009 BAM HOT SAW HELPER, TAYLOR A 719.40 Joint Pain, Localized 10/17/2009 BAM HOT SAW HELPER, TAYLOR A 787.91 Diarrhea 10/17/2009 BAM HOT SAW HELPER, TAYLOR A 719.40 Joint Pain, Localized 10/17/2009 BAM HOT SAW HELPER, TAYLOR A 787.91 Diarrhea 10/17/2009 BAM HOT SAW HELPER, TAYLOR A 719.40 Joint Pain, Localized 10/17/2009 BAM HOT SAW HELPER, TAYLOR A 787.91 Diarrhea 10/17/2009 GAYLE REIDNBOOGIE T 719.40 Joint Pain, Localized 10/17/2009 GAYLE HOT SAW HELPER, BOOGIE T 787.91 Diarrhea 10/17/2009 GAYLE HOT SAW HELPER, BOOGIE T 719.40 Joint Pain, Localized 10/17/2009 GAYLE HOT SAW HELPER, BOOGIE T 787.91 Diarrhea 10/17/2009 GAYLE REIDN, BOOGIE T 719.40 Joint Pain, Localized 10/17/2009 GAYLE HOT SAW HELPER, BOOGIE T 787.91 Diarrhea 10/17/2009 [facility], [place] R 719.40 Joint Pain, Localized 10/17/2009 [facility], [place] R 787.91 Diarrhea 11/20/2009 BOOGIE ARAUJO APRN T 692.9 Dermatitis Contact Unspecified 11/20/2009 692.9 Dermatitis Contact Unspecified 11/20/2009 692.9 Dermatitis Contact Unspecified 11/20/2009 692.9 Dermatitis Contact Unspecified 11/20/2009 692.9 Dermatitis Contact Unspecified 11/20/2009 692.9 Dermatitis Contact Unspecified 11/20/2009 [facility], [place] Avila 692.9 Dermatitis Contact Unspecified 11/20/2009 BOOGIE ARAUJO APRN T 692.9 Dermatitis Contact Unspecified 11/20/2009 SUSSY VERDE DARRIUS Gregory 692.9 Dermatitis Contact Unspecified 11/20/2009 BOOGIE ARAUJO APRN T 692.9 Dermatitis Contact Unspecified 11/20/2009 LAURA HINKLE MD 692.9 Dermatitis Contact Unspecified 11/20/2009 LAURA HINKLE MD 692.9 Dermatitis Contact Unspecified 11/20/2009 BOOGIE ARAUJO APRN 692.9 Dermatitis Contact Unspecified 11/20/2009 BOOGIE ARAUJO APRN 692.9 Dermatitis Contact Unspecified 11/20/2009 BOOGIE ARAUJO APRN 692.9 Dermatitis Contact Unspecified 11/20/2009 BOOGIE ARAUJO APRN T 692.9 Dermatitis Contact Unspecified 11/20/2009 LAURA HINKLE MD 692.9 Dermatitis Contact Unspecified 11/20/2009 BOOGIE ARAUJO APRN 692.9 Dermatitis Contact Unspecified 11/20/2009 BOOGIE ARAUJO APRN T 692.9 Dermatitis Contact Unspecified 11/20/2009 BOOGIE ARAUJO APRN 692.9 Dermatitis Contact Unspecified 11/20/2009 BOOGIE ARAUJO APRN 692.9 Dermatitis Contact Unspecified 11/20/2009 BOOGIE ARAUJO APRN T 692.9 Dermatitis Contact Unspecified 11/20/2009 BOOGIE ARAUJO APRN T 692.9 Dermatitis Contact Unspecified 11/20/2009 BOOGIE ARAUJO APRN T 692.9 Dermatitis Contact Unspecified 11/20/2009 BOOGIE ARAUJO APRN 692.9 Dermatitis Contact Unspecified 11/20/2009 TAYLOR KUHN APRN A 692.9 Dermatitis Contact Unspecified 11/20/2009 TAYLOR KUHN APRN A 692.9 Dermatitis Contact Unspecified 11/20/2009 TAYLOR KUHN APRN A 692.9 Dermatitis Contact Unspecified 11/20/2009 BOOGIE ARAUJO APRN 692.9 Dermatitis Contact Unspecified 11/20/2009 BOOGIE ARAUJO APRN 692.9 Dermatitis Contact Unspecified 11/20/2009 BOOGIE ARAUJO APRN 692.9 Dermatitis Contact Unspecified 11/20/2009 [facility], [place] R 692.9 Dermatitis Contact Unspecified 01/15/2010 BOOGIE ARAUJO APRN 296.90 Mood Disorder 01/15/2010 BOOGIE ARAUJO APRN 300.00 ANXIETY UNSPEC 01/15/2010 BOOGIE ARAUJO APRN 308.3 Other Acute Reactions To Stress 01/15/2010 BOOGIE ARAUJO APRN 790.29 Other Abnormal Glucose 01/15/2010 296.90 Mood Disorder 01/15/2010 300.00 ANXIETY UNSPEC 01/15/2010 308.3 Other Acute Reactions To Stress 01/15/2010 790.29 Other Abnormal Glucose 01/15/2010 296.90 Mood Disorder 01/15/2010 300.00 ANXIETY UNSPEC 01/15/2010 308.3 Other Acute Reactions To Stress 01/15/2010 790.29 Other Abnormal Glucose 01/15/2010 296.90 Mood Disorder 01/15/2010 300.00 ANXIETY UNSPEC 01/15/2010 308.3 Other Acute Reactions To Stress 01/15/2010 790.29 Other Abnormal Glucose 01/15/2010 296.90 Mood Disorder 01/15/2010 300.00 ANXIETY UNSPEC 01/15/2010 308.3 Other Acute Reactions To Stress 01/15/2010 790.29 Other Abnormal Glucose 01/15/2010 296.90 Mood Disorder 01/15/2010 300.00 ANXIETY UNSPEC 01/15/2010 308.3 Other Acute Reactions To Stress 01/15/2010 790.29 Other Abnormal Glucose 01/15/2010 [facility], KENN R 296.90 Mood Disorder 01/15/2010 [facility], KENN R 300.00 ANXIETY UNSPEC 01/15/2010 [facility], KENN R 308.3 Other Acute Reactions To Stress 01/15/2010 [facility], KENN R 790.29 Other Abnormal Glucose 01/15/2010 BOOGIE ARAUJO APRN 296.90 Mood Disorder 01/15/2010 BOOGIE ARAUJO APRN 300.00 ANXIETY UNSPEC 01/15/2010 BOOGIE ARAUJO APRN 308.3 Other Acute Reactions To Stress 01/15/2010 BOOGIE ARAUJO APRN 790.29 Other Abnormal Glucose 01/15/2010 [facility], DARRIUS K 296.90 Mood Disorder 01/15/2010 [facility] DO, DARRIUS K 300.00 ANXIETY UNSPEC 01/15/2010 [facility] DO, DARRIUS K 308.3 Other Acute Reactions To Stress 01/15/2010 HI DO, DARRIUS K 790.29 Other Abnormal Glucose 01/15/2010 BOOGIE ARAUJO APRN T 296.90 Mood Disorder 01/15/2010 BOOGIE ARAUJO APRN T 300.00 ANXIETY UNSPEC 01/15/2010 BOOGIE ARAUJO APRN T 308.3 Other Acute Reactions To Stress 01/15/2010 BOOGIE ARAUJO APRN T 790.29 Other Abnormal Glucose 01/15/2010 LAURA HINKLE MD 296.90 Mood Disorder 01/15/2010 LAURA HINKLE MD 300.00 ANXIETY UNSPEC 01/15/2010 LAURA HINKLE MD 308.3 Other Acute Reactions To Stress 01/15/2010 LAURA HINKLE MD 790.29 Other Abnormal Glucose 01/15/2010 LAURA HINKLE MD 296.90 Mood Disorder 01/15/2010 LAURA HINKLE MD 300.00 ANXIETY UNSPEC 01/15/2010 LAURA HINKLE MD 308.3 Other Acute Reactions To Stress 01/15/2010 LAURA HINKLE MD 790.29 Other Abnormal Glucose 01/15/2010 BOOGIE ARAUJO APRN T 296.90 Mood Disorder 01/15/2010 BOOGIE ARAUJO APRN T 300.00 ANXIETY UNSPEC 01/15/2010 BOOGIE ARAUJO APRN 308.3 Other Acute Reactions To Stress 01/15/2010 BOOGIE ARAUJO APRN T 790.29 Other Abnormal Glucose 01/15/2010 BOOGIE ARAUJO APRN T 296.90 Mood Disorder 01/15/2010 BOOGIE ARAUJO APRN T 300.00 ANXIETY UNSPEC 01/15/2010 BOOGIE ARAUJO APRN 308.3 Other Acute Reactions To Stress 01/15/2010 BOOGIE ARAUJO APRN T 790.29 Other Abnormal Glucose 01/15/2010 BOOGIE ARAUJO APRN T 296.90 Mood Disorder 01/15/2010 BOOGIE ARAUJO APRN T 300.00 ANXIETY UNSPEC 01/15/2010 BOOGIE ARAUJO APRN 308.3 Other Acute Reactions To Stress 01/15/2010 BOOGIE ARAUJO APRN T 790.29 Other Abnormal Glucose 01/15/2010 [employer], BOOGIE T 296.90 Mood Disorder 01/15/2010 BOOGIE ARAUJO APRN T 300.00 ANXIETY UNSPEC 01/15/2010 BOOGIE ARAUJO APRN T 308.3 Other Acute Reactions To Stress 01/15/2010 BOOGIE ARAUJO APRN T 790.29 Other Abnormal Glucose 01/15/2010 LAURA HINKLE MD 296.90 Mood Disorder 01/15/2010 LAURA HINKLE MD 300.00 ANXIETY UNSPEC 01/15/2010 LAURA HINKLE MD 308.3 Other Acute Reactions To Stress 01/15/2010 LAURA HINKLE MD 790.29 Other Abnormal Glucose 01/15/2010 BOOGIE ARAUJO APRN T 296.90 Mood Disorder 01/15/2010 BOOGIE ARAUJO APRN T 300.00 ANXIETY UNSPEC 01/15/2010 BOOGIE ARAUJO APRN T 308.3 Other Acute Reactions To Stress 01/15/2010 BOOGIE ARAUJO APRN T 790.29 Other Abnormal Glucose 01/15/2010 BOOGIE ARAUJO APRN T 296.90 Mood Disorder 01/15/2010 BOOGIE ARAUJO APRN T 300.00 ANXIETY UNSPEC 01/15/2010 BOOGIE ARAUJO APRN T 308.3 Other Acute Reactions To Stress 01/15/2010 BOOGIE ARAUJO APRN T 790.29 Other Abnormal Glucose 01/15/2010 BOOGIE ARAUJO APRN T 296.90 Mood Disorder 01/15/2010 BOOGIE ARAUJO APRN T 300.00 ANXIETY UNSPEC 01/15/2010 BOOGIE ARAUJO APRN T 308.3 Other Acute Reactions To Stress 01/15/2010 BOOGIE ARAUJO APRN T 790.29 Other Abnormal Glucose 01/15/2010 BOOGIE ARAUJO APRN T 296.90 Mood Disorder 01/15/2010 BOOGIE ARAUJO APRN T 300.00 ANXIETY UNSPEC 01/15/2010 BOOGIE ARAUJO APRN T 308.3 Other Acute Reactions To Stress 01/15/2010 BOOGIE ARAUJO APRN T 790.29 Other Abnormal Glucose 01/15/2010 BOOGIE ARAUJO APRN T 296.90 Mood Disorder 01/15/2010 BOOGIE ARAUJO APRN T 300.00 ANXIETY UNSPEC 01/15/2010 BOOGIE ARAUJO APRN T 308.3 Other Acute Reactions To Stress 01/15/2010 BOOGIE ARAUJO APRN T 790.29 Other Abnormal Glucose 01/15/2010 BOOGIE ARAUJO APRN T 296.90 Mood Disorder 01/15/2010 BOOGIE ARAUJO APRN T 300.00 ANXIETY UNSPEC 01/15/2010 BOOGIE ARAUJO APRN T 308.3 Other Acute Reactions To Stress 01/15/2010 BOOGIE ARAUJO APRN T 790.29 Other Abnormal Glucose 01/15/2010 BOOGIE ARAUJO APRN T 296.90 Mood Disorder 01/15/2010 BOOGIE ARAUJO APRN T 300.00 ANXIETY UNSPEC 01/15/2010 BOOGIE ARAUJO APRN T 308.3 Other Acute Reactions To Stress 01/15/2010 BOOGIE ARAUJO APRN T 790.29 Other Abnormal Glucose 01/15/2010 BOOGIE ARAUJO APRN T 296.90 Mood Disorder 01/15/2010 BOOGIE ARAUJO APRN T 300.00 ANXIETY UNSPEC 01/15/2010 BOOGIE ARAUJO APRN T 308.3 Other Acute Reactions To Stress 01/15/2010 BOOGIE ARAUJO APRN T 790.29 Other Abnormal Glucose 01/15/2010 BAM APRN, TAYLOR A 296.90 Mood Disorder 01/15/2010 BAM HOT SAW HELPER, TAYLOR A 300.00 ANXIETY UNSPEC 01/15/2010 BAM HOT SAW HELPER, TAYLOR A 308.3 Other Acute Reactions To Stress 01/15/2010 BAM HOT SAW HELPER, TAYLOR A 790.29 Other Abnormal Glucose 01/15/2010 BAM HOT SAW HELPER, TAYLOR A 296.90 Mood Disorder 01/15/2010 BAM HOT SAW HELPER, TAYLOR A 300.00 ANXIETY UNSPEC 01/15/2010 BAM HOT SAW HELPER, TAYLOR A 308.3 Other Acute Reactions To Stress 01/15/2010 BAM HOT SAW HELPER, TAYLOR A 790.29 Other Abnormal Glucose 01/15/2010 BAM HOT SAW HELPER, TAYLOR A 296.90 Mood Disorder 01/15/2010 BAM HOT SAW HELPER, TAYLOR A 300.00 ANXIETY UNSPEC 01/15/2010 BAM HOT SAW HELPER, TAYLOR A 308.3 Other Acute Reactions To Stress 01/15/2010 BAM APRN, TAYLOR A 790.29 Other Abnormal Glucose 01/15/2010 BOOGIE ARAUJO APRN T 296.90 Mood Disorder 01/15/2010 BOOGIE ARAUJO APRN T 300.00 ANXIETY UNSPEC 01/15/2010 BOOGIE ARAUJO APRN T 308.3 Other Acute Reactions To Stress 01/15/2010 BOOGIE ARAUJO APRN T 790.29 Other Abnormal Glucose 01/15/2010 BOOGIE ARAUJO APRN T 296.90 Mood Disorder 01/15/2010 BOOGIE ARAUJO APRN 300.00 ANXIETY UNSPEC 01/15/2010 BOOGIE ARAUJO APRN 308.3 Other Acute Reactions To Stress 01/15/2010 BOOGIE ARAUJO APRN 790.29 Other Abnormal Glucose 01/15/2010 BOOGIE ARAUJO APRN 296.90 Mood Disorder 01/15/2010 BOOGIE ARAUJO APRN 300.00 ANXIETY UNSPEC 01/15/2010 BOOGIE ARAUJO APRN 308.3 Other Acute Reactions To Stress 01/15/2010 BOOGIE ARAUJO APRN 790.29 Other Abnormal Glucose 01/15/2010 [facility], KENN R 296.90 Mood Disorder 01/15/2010 [facility], KENN R 300.00 ANXIETY UNSPEC 01/15/2010 [facility], KENN R 308.3 Other Acute Reactions To Stress 01/15/2010 [facility], KENN R 790.29 Other Abnormal Glucose 01/23/2010 BOOGIE ARAUJO APRN 462 Pharyngitis Acute 01/23/2010 462 Pharyngitis Acute 01/23/2010 462 Pharyngitis Acute 01/23/2010 462 Pharyngitis Acute 01/23/2010 462 Pharyngitis Acute 01/23/2010 462 Pharyngitis Acute 01/23/2010 [facility], KENN R 462 Pharyngitis Acute 01/23/2010 BOOGIE ARAUJO APRN 462 Pharyngitis Acute 01/23/2010 DARRIUS HI DO 462 Pharyngitis Acute 01/23/2010 BOOGIE ARAUJO APRN 462 Pharyngitis Acute 01/23/2010 LAURA HINKLE MD 462 Pharyngitis Acute 01/23/2010 LAURA HINKLE MD 462 Pharyngitis Acute 01/23/2010 BOOGIE ARAUJO APRN 462 Pharyngitis Acute 01/23/2010 BOOGIE ARAUJO APRN 462 Pharyngitis Acute 01/23/2010 BOOGIE ARAUJO APRN 462 Pharyngitis Acute 01/23/2010 BOOGIE ARAUJO APRN 462 Pharyngitis Acute 01/23/2010 LAURA HINKLE MD 462 Pharyngitis Acute 01/23/2010 BOOGIE ARAUJO APRN 462 Pharyngitis Acute 01/23/2010 G[employer]LE H[employer]W HELPER, BOOGIE T 462 Pharyngitis Acute 01/23/2010 G[employer]LE H[employer] SAW HELPER, BOOGIE T 462 Pharyngitis Acute 01/23/2010 GAYLE HOT SAW HELPER, BOOGIE T 462 Pharyngitis Acute 01/23/2010 GAYLE HOT SAW HELPER, BOOIGE T 462 Pharyngitis Acute 01/23/2010 GAYLE HOT SAW HELPER, BOOGIE T 462 Pharyngitis Acute 01/23/2010 GAYLE HOT SAW HELPER, BOOGIE T 462 Pharyngitis Acute 01/23/2010 GAYLE HOT SAW HELPER, BOOGIE T 462 Pharyngitis Acute 01/23/2010 BAM HOT SAW HELPER, TAYLOR A 462 Pharyngitis Acute 01/23/2010 BAM HOT SAW HELPER, TAYLOR A 462 Pharyngitis Acute 01/23/2010 BAM HOT SAW HELPER, TAYLOR A 462 Pharyngitis Acute 01/23/2010 GAYLE H[employer] SAW HELPER, BOOGIE T 462 Pharyngitis Acute 01/23/2010 GAYLE HOT SAW HELPER, BOOGIE T 462 Pharyngitis Acute 01/23/2010 GAYLE HOT SAW HELPER, BOOGIE T 462 Pharyngitis Acute 01/23/2010 [facility], KENN R 462 Pharyngitis Acute 02/11/2010 GAYLE REIDN, BOOGIE T 716.90 Arthritis/ Arthropathy, Unspecified 02/11/2010 716.90 Arthritis/ Arthropathy, Unspecified 02/11/2010 716.90 Arthritis/ Arthropathy, Unspecified 02/11/2010 716.90 Arthritis/ Arthropathy, Unspecified 02/11/2010 716.90 Arthritis/ Arthropathy, Unspecified 02/11/2010 716.90 Arthritis/ Arthropathy, Unspecified 02/11/2010 [facility], KENN R 716.90 Arthritis/ Arthropathy, Unspecified 02/11/2010 [employer], BOOGIE T 716.90 Arthritis/ Arthropathy, Unspecified 02/11/2010 DARRIUS HI DO 716.90 Arthritis/ Arthropathy, Unspecified 02/11/2010 GAYLE REIDN, BOOGIE T 716.90 Arthritis/ Arthropathy, Unspecified 02/11/2010 ARIN ORTIZ, LAURA 716.90 Arthritis/ Arthropathy, Unspecified 02/11/2010 ARIN ORTIZ, LAURA 716.90 Arthritis/ Arthropathy, Unspecified 02/11/2010 GAYLE HOT SAW HELPER, BOOGIE T 716.90 Arthritis/ Arthropathy, Unspecified 02/11/2010 GAYLE ADNIEL, BOOGIE T 716.90 Arthritis/ Arthropathy, Unspecified 02/11/2010 GAYLE DANIEL, BOOGIE T 716.90 Arthritis/ Arthropathy, Unspecified 02/11/2010 GAYLE DANIEL, BOOGIE T 716.90 Arthritis/ Arthropathy, Unspecified 02/11/2010 LAURA HINKLE MD 716.90 Arthritis/ Arthropathy, Unspecified 02/11/2010 BOOGIE ARAUJO APRN 716.90 Arthritis/ Arthropathy, Unspecified 02/11/2010 BOOGIE ARAUJO APRN 716.90 Arthritis/ Arthropathy, Unspecified 02/11/2010 BOOGIE ARAUJO APRN 716.90 Arthritis/ Arthropathy, Unspecified 02/11/2010 GAYLE DANIEL, BOOGIE Meneses 716.90 Arthritis/ Arthropathy, Unspecified 02/11/2010 BOOGIE ARAUJO APRN 716.90 Arthritis/ Arthropathy, Unspecified 02/11/2010 BOOGIE ARAUJO APRN 716.90 Arthritis/ Arthropathy, Unspecified 02/11/2010 BOOGIE ARAUJO APRN 716.90 Arthritis/ Arthropathy, Unspecified 02/11/2010 BOOGIE ARAUJO APRN T 716.90 Arthritis/ Arthropathy, Unspecified 02/11/2010 BAMKIN DANIEL, TAYLOR A 716.90 Arthritis/ Arthropathy, Unspecified 02/11/2010 BAM DANIEL, TAYLOR A 716.90 Arthritis/ Arthropathy, Unspecified 02/11/2010 BAM DANIEL, TAYLOR A 716.90 Arthritis/ Arthropathy, Unspecified 02/11/2010 BOOGIE ARAUJO APRN 716.90 Arthritis/ Arthropathy, Unspecified 02/11/2010 BOOGIE ARAUJO APRN 716.90 Arthritis/ Arthropathy, Unspecified 02/11/2010 BOOGIE ARAUJO APRN 716.90 Arthritis/ Arthropathy, Unspecified 02/11/2010 [facility], KENN Avila 716.90 Arthritis/ Arthropathy, Unspecified 03/26/2010 BOOGIE ARAUJO APRN 296.22 MO DEPRESSIVE SINGLE MODERATE 03/26/2010 BOOGIE ARAUJO APRN 780.50 SLEEP DISTURBANCE, UNSPECIFIED 03/26/2010 296.22 MO DEPRESSIVE SINGLE MODERATE 03/26/2010 780.50 SLEEP DISTURBANCE, UNSPECIFIED 03/26/2010 296.22 MO DEPRESSIVE SINGLE MODERATE 03/26/2010 780.50 Sleep Disturbance, Unspecified 03/26/2010 296.22 MO DEPRESSIVE SINGLE MODERATE 03/26/2010 780.50 Sleep Disturbance, Unspecified 03/26/2010 296.22 MO DEPRESSIVE SINGLE MODERATE 03/26/2010 780.50 Sleep Disturbance, Unspecified 03/26/2010 296.22 MO DEPRESSIVE SINGLE MODERATE 03/26/2010 780.50 Sleep Disturbance, Unspecified 03/26/2010 [facility], KENN R 296.22 MO DEPRESSIVE SINGLE MODERATE 03/26/2010 [facility], KENN R 780.50 Sleep Disturbance, Unspecified 03/26/2010 BOOGIE ARAUJO APRN T 296.22 MO DEPRESSIVE SINGLE MODERATE 03/26/2010 BOOGIE ARAUJO APRN T 780.50 Sleep Disturbance, Unspecified 03/26/2010 HI DO, DARRIUS K 296.22 MO DEPRESSIVE SINGLE MODERATE 03/26/2010 HI DO, DARRIUS K 780.50 Sleep Disturbance, Unspecified 03/26/2010 BOOGIE ARAUJO APRN T 296.22 MO DEPRESSIVE SINGLE MODERATE 03/26/2010 BOOGIE ARAUJO APRN T 780.50 Sleep Disturbance, Unspecified 03/26/2010 LAURA HINKLE MD 296.22 MO DEPRESSIVE SINGLE MODERATE 03/26/2010 LAURA HINKLE MD 780.50 Sleep Disturbance, Unspecified 03/26/2010 LAURA HINKLE MD 296.22 MO DEPRESSIVE SINGLE MODERATE 03/26/2010 LAURA HINKLE MD 780.50 Sleep Disturbance, Unspecified 03/26/2010 BOOGIE ARAUJO APRN T 296.22 MO DEPRESSIVE SINGLE MODERATE 03/26/2010 BOOGIE ARAUJO APRN T 780.50 Sleep Disturbance, Unspecified 03/26/2010 GAYLE DANIEL BOOGIE T 296.22 MO DEPRESSIVE SINGLE MODERATE 03/26/2010 BOOGIE ARAUJO APRN T 780.50 Sleep Disturbance, Unspecified 03/26/2010 BOOGIE ARAUJO APRN T 296.22 MO DEPRESSIVE SINGLE MODERATE 03/26/2010 BOOGIE ARAUJO APRN T 780.50 Sleep Disturbance, Unspecified 03/26/2010 BOOGIE ARAUJO APRN T 296.22 MO DEPRESSIVE SINGLE MODERATE 03/26/2010 BOOGIE ARAUJO APRN T 780.50 Sleep Disturbance, Unspecified 03/26/2010 LAURA HINKLE MD 296.22 MO DEPRESSIVE SINGLE MODERATE 03/26/2010 LAURA HINKLE MD 780.50 Sleep Disturbance, Unspecified 03/26/2010 [employer] HEL[employer], BOOGIE T 296.22 MO DEPRESSIVE SINGLE MODERATE 03/26/2010 GAYLE HOT SAW HELPER, BOOGIE T 780.50 Sleep Disturbance, Unspecified 03/26/2010 GAYLE HOT SAW HELPER, BOOGIE T 296.22 MO DEPRESSIVE SINGLE MODERATE 03/26/2010 GAYLE HOT SAW HELPER, BOOGIE T 780.50 Sleep Disturbance, Unspecified 03/26/2010 AGYLE HOT SAW HELPER, BOOGIE T 296.22 MO DEPRESSIVE SINGLE MODERATE 03/26/2010 GAYLE HOT SAW HELPER, BOOGIE T 780.50 Sleep Disturbance, Unspecified 03/26/2010 GAYLE HOT SAW HELPER, BOOGIE T 296.22 MO DEPRESSIVE SINGLE MODERATE 03/26/2010 GAYLE HOT SAW HELPER, BOOGIE T 780.50 Sleep Disturbance, Unspecified 03/26/2010 GAYLE HOT SAW HELPER, BOOGIE T 296.22 MO DEPRESSIVE SINGLE MODERATE 03/26/2010 GAYLE HOT SAW HELPER, BOOGIE T 780.50 Sleep Disturbance, Unspecified 03/26/2010 GAYLE HOT SAW HELPER, BOOGIE T 296.22 MO DEPRESSIVE SINGLE MODERATE 03/26/2010 GAYLE HOT SAW HELPER, BOOGIE T 780.50 Sleep Disturbance, Unspecified 03/26/2010 GAYLE HOT SAW HELPER, OBOGIE T 296.22 MO DEPRESSIVE SINGLE MODERATE 03/26/2010 GAYLE HOT SAW HELPER, BOOGIE T 780.50 Sleep Disturbance, Unspecified 03/26/2010 GAYLE HOT SAW HELPER, BOOGIE T 296.22 MO DEPRESSIVE SINGLE MODERATE 03/26/2010 GAYLE HOT SAW HELPER, BOOGIE T 780.50 Sleep Disturbance, Unspecified 03/26/2010 BAM HOT SAW HELPER, TAYLOR A 296.22 MO DEPRESSIVE SINGLE MODERATE 03/26/2010 BAM HOT SAW HELPER, TAYLOR A 780.50 Sleep Disturbance, Unspecified 03/26/2010 BAM HOT SAW HELPER, TAYLOR A 296.22 MO DEPRESSIVE SINGLE MODERATE 03/26/2010 BAM HOT SAW HELPER, TAYLOR A 780.50 Sleep Disturbance, Unspecified 03/26/2010 BAM HOT SAW HELPER, TAYLOR A 296.22 MO DEPRESSIVE SINGLE MODERATE 03/26/2010 BAM HOT SAW HELPER, TAYLOR A 780.50 Sleep Disturbance, Unspecified 03/26/2010 GAYLE HOT SAW HELPER, BOOGIE T 296.22 MO DEPRESSIVE SINGLE MODERATE 03/26/2010 GAYLE HOT SAW HELPER, BOOGIE T 780.50 Sleep Disturbance, Unspecified 03/26/2010 GAYLE REIDN, BOOGIE T 296.22 MO DEPRESSIVE SINGLE MODERATE 03/26/2010 GAYLE HOT SAW HELPER, BOOGIE T 780.50 Sleep Disturbance, Unspecified 03/26/2010 BOOGIE ARAUJO APRN T 296.22 MO DEPRESSIVE SINGLE MODERATE 03/26/2010 BOOGIE ARAUJO APRN T 780.50 Sleep Disturbance, Unspecified 03/26/2010 [facility], KENN R 296.22 MO DEPRESSIVE SINGLE MODERATE 03/26/2010 [facility], KENN R 780.50 SLEEP DISTURBANCE, UNSPECIFIED 06/01/2010 BOOGIE ARAUJO APRN T 296.32 MO DEPRESSIVE RECURRENT MODERATE 06/01/2010 296.32 MO DEPRESSIVE RECURRENT MODERATE 06/01/2010 296.32 MO DEPRESSIVE RECURRENT MODERATE 06/01/2010 296.32 MO DEPRESSIVE RECURRENT MODERATE 06/01/2010 296.32 MO DEPRESSIVE RECURRENT MODERATE 06/01/2010 296.32 MO DEPRESSIVE RECURRENT MODERATE 06/01/2010 [facility], KENN R 296.32 MO DEPRESSIVE RECURRENT MODERATE 06/01/2010 BOOGIE ARAUJO APRN T 296.32 MO DEPRESSIVE RECURRENT MODERATE 06/01/2010 DARRIUS HI DO 296.32 MO DEPRESSIVE RECURRENT MODERATE 06/01/2010 BOOGIE ARAUJO APRN T 296.32 MO DEPRESSIVE RECURRENT MODERATE 06/01/2010 LAURA HINKLE MD 296.32 MO DEPRESSIVE RECURRENT MODERATE 06/01/2010 LAURA HINKLE MD 296.32 MO DEPRESSIVE RECURRENT MODERATE 06/01/2010 BOOGIE ARAUJO APRN T 296.32 MO DEPRESSIVE RECURRENT MODERATE 06/01/2010 BOOGIE ARAUJO APRN T 296.32 MO DEPRESSIVE RECURRENT MODERATE 06/01/2010 BOOGIE ARAUJO APRN T 296.32 MO DEPRESSIVE RECURRENT MODERATE 06/01/2010 BOOGIE ARAUJO APRN T 296.32 MO DEPRESSIVE RECURRENT MODERATE 06/01/2010 LAURA HINKLE MD 296.32 MO DEPRESSIVE RECURRENT MODERATE 06/01/2010 BOOGIE ARAUJO APRN T 296.32 MO DEPRESSIVE RECURRENT MODERATE 06/01/2010 BOOGIE ARAUJO APRN T 296.32 MO DEPRESSIVE RECURRENT MODERATE 06/01/2010 BOOGIE ARAUJO APRN T 296.32 MO DEPRESSIVE RECURRENT MODERATE 06/01/2010 BOOGIE ARAUJO APRN T 296.32 MO DEPRESSIVE RECURRENT MODERATE 06/01/2010 BOOGIE ARAUJO APRN T 296.32 MO DEPRESSIVE RECURRENT MODERATE 06/01/2010 BOOGIE ARAUJO APRN T 296.32 MO DEPRESSIVE RECURRENT MODERATE 06/01/2010 BOOGIE ARAUJO APRN T 296.32 MO DEPRESSIVE RECURRENT MODERATE 06/01/2010 BOOGIE ARAUJO APRN T 296.32 MO DEPRESSIVE RECURRENT MODERATE 06/01/2010 BAM HOT [employer]W HELPER, TAYLOR A 296.32 MO DEPRESSIVE RECURRENT MODERATE 06/01/2010 BAM HOT SAW HELPER, TAYLOR A 296.32 MO DEPRESSIVE RECURRENT MODERATE 06/01/2010 BAM HOT SAW HELPER, TAYLOR A 296.32 MO DEPRESSIVE RECURRENT MODERATE 06/01/2010 BOOGIE ARAUJO APRN T 296.32 MO DEPRESSIVE RECURRENT MODERATE 06/01/2010 BOOGIE ARAUJO APRN 296.32 MO DEPRESSIVE RECURRENT MODERATE 06/01/2010 BOOGIE ARAUJO APRN 296.32 MO DEPRESSIVE RECURRENT MODERATE 06/01/2010 [facility], KENN R 296.32 MO DEPRESSIVE RECURRENT MODERATE 02/19/2011 BOOGIE ARAUJO APRN V04.81 Flu Dx (3 Yrs And Above, Im) 02/19/2011 V04.81 Flu Dx (3 Yrs And Above, Im) 02/19/2011 V04.81 Flu Dx (3 Yrs And Above, Im) 02/19/2011 V04.81 Flu Dx (3 Yrs And Above, Im) 02/19/2011 V04.81 Flu Dx (3 Yrs And Above, Im) 02/19/2011 V04.81 Flu Dx (3 Yrs And Above, Im) 02/19/2011 [facility], [place]ENN R V04.81 Flu Dx (3 Yrs And Above, Im) 02/19/2011 BOOGIE ARAUJO APRN V04.81 Flu Dx (3 Yrs And Above, Im) 02/19/2011 DARRIUS HI DO V04.81 Flu Dx (3 Yrs And Above, Im) 02/19/2011 BOOGIE ARAUJO APRN V04.81 Flu Dx (3 Yrs And Above, Im) 02/19/2011 LAURA HINKLE MD V04.81 Flu Dx (3 Yrs And Above, Im) 02/19/2011 LAURA HINKLE MD V04.81 Flu Dx (3 Yrs And Above, Im) 02/19/2011 BOOGIE ARAUJO APRN V04.81 Flu Dx (3 Yrs And Above, Im) 02/19/2011 BOOGIE ARAUJO APRN V04.81 Flu Dx (3 Yrs And Above, Im) 02/19/2011 BOOGIE ARAUJO APRN V04.81 Flu Dx (3 Yrs And Above, Im) 02/19/2011 G[employer]LE H[employer] SAW HELPER, BOOGIE T V04.81 Flu Dx (3 Yrs And Above, Im) 02/19/2011 LAURA HINKLE MD V04.81 Flu Dx (3 Yrs And Above, Im) 02/19/2011 BOOGIE ARAUJO APRN V04.81 Flu Dx (3 Yrs And Above, Im) 02/19/2011 GAYLE DANIEL, BOOGIE T V04.81 Flu Dx (3 Yrs And Above, Im) 02/19/2011 GAYLE DANIEL, BOOGIE T V04.81 Flu Dx (3 Yrs And Above, Im) 02/19/2011 GAYLE DANIEL, BOOGIE T V04.81 Flu Dx (3 Yrs And Above, Im) 02/19/2011 GAYLE DANIEL, BOOGIE T V04.81 Flu Dx (3 Yrs And Above, Im) 02/19/2011 GAYLE DANIEL, BOOGIE T V04.81 Flu Dx (3 Yrs And Above, Im) 02/19/2011 BOOGIE ARAUJO APRN V04.81 Flu Dx (3 Yrs And Above, Im) 02/19/2011 BOOGIE ARAUJO APRN V04.81 Flu Dx (3 Yrs And Above, Im) 02/19/2011 BAM DANIEL, TAYLOR A V04.81 Flu Dx (3 Yrs And Above, Im) 02/19/2011 BAM REIDN, TAYLOR A V04.81 Flu Dx (3 Yrs And Above, Im) 02/19/2011 BAM DANIEL, TAYLOR A V04.81 Flu Dx (3 Yrs And Above, Im) 02/19/2011 BOOGIE ARAUJO APRN T V04.81 Flu Dx (3 Yrs And Above, Im) 02/19/2011 BOOGIE ARAUJO APRN T V04.81 Flu Dx (3 Yrs And Above, Im) 02/19/2011 BOOGIE ARAUJO APRN V04.81 Flu Dx (3 Yrs And Above, Im) 02/19/2011 [facility], KENN Avila V04.81 Flu Dx (3 Yrs And Above, Im) 02/21/2011 BOOGIE ARAUJO APRN 791.0 PROTEINURIA 02/21/2011 791.0 PROTEINURIA 02/21/2011 791.0 PROTEINURIA 02/21/2011 791.0 PROTEINURIA 02/21/2011 791.0 PROTEINURIA 02/21/2011 791.0 PROTEINURIA 02/21/2011 [facility], [facility]ENN R 791.0 PROTEINURIA 02/21/2011 [employer], BOOGIE T 791.0 PROTEINURIA 02/21/2011 DARRIUS HI DO 791.0 PROTEINURIA 02/21/2011 G[employer]LE [employer] HELPER, BOOGIE T 791.0 PROTEINURIA 02/21/2011 LAURA HINKLE MD 791.0 PROTEINURIA 02/21/2011 LAURA HINKLE MD 791.0 PROTEINURIA 02/21/2011 [employer] HEL[employer], BOOGIE T 791.0 PROTEINURIA 02/21/2011 GAYLE HOT SAW HELPER, BOOGIE T 791.0 PROTEINURIA 02/21/2011 GAYLE HOT SAW HELPER, BOOGIE T 791.0 PROTEINURIA 02/21/2011 GAYLE HOT SAW HELPER, BOOGIE T 791.0 PROTEINURIA 02/21/2011 LAURA HINKLE MD 791.0 PROTEINURIA 02/21/2011 G[employer]LE H[employer] SAW HELPER, BOOGIE T 791.0 PROTEINURIA 02/21/2011 GAYLE HOT SAW HELPER, BOOGIE T 791.0 PROTEINURIA 02/21/2011 GAYLE HOT SAW HELPER, BOOGIE T 791.0 PROTEINURIA 02/21/2011 GAYLE HOT SAW HELPER, BOOGIE T 791.0 PROTEINURIA 02/21/2011 GAYLE HOT SAW HELPER, BOOGIE T 791.0 PROTEINURIA 02/21/2011 GAYLE HOT SAW HELPER, BOOGIE T 791.0 PROTEINURIA 02/21/2011 GAYLE HOT SAW HELPER, BOOGIE T 791.0 PROTEINURIA 02/21/2011 GAYLE HOT SAW HELPER, BOOGIE T 791.0 PROTEINURIA 02/21/2011 BAM HOT SAW HELPER, TAYLOR A 791.0 PROTEINURIA 02/21/2011 BAM HOT SAW HELPER, TAYLOR A 791.0 PROTEINURIA 02/21/2011 BAM HOT SAW HELPER, TAYLOR A 791.0 PROTEINURIA 02/21/2011 G[employer]LE [employer] HEL[employer], BOOGIE T 791.0 PROTEINURIA 02/21/2011 G[employer]LE H[employer] SA[employer] HELPER, BOOGIE T 791.0 PROTEINURIA 02/21/2011 GAYLE HOT SAW HELPER, BOOGIE T 791.0 PROTEINURIA 02/21/2011 [facility], [facility]ENN R 791.0 PROTEINURIA 08/25/2011 BOOGIE ARAUJO APRN V68.1 ISSUE OF REPEAT PRESCRIPTIONS 08/25/2011 V68.1 ISSUE OF REPEAT PRESCRIPTIONS 08/25/2011 V68.1 ISSUE OF REPEAT PRESCRIPTIONS 08/25/2011 V68.1 ISSUE OF REPEAT PRESCRIPTIONS 08/25/2011 V68.1 ISSUE OF REPEAT PRESCRIPTIONS 08/25/2011 V68.1 ISSUE OF REPEAT PRESCRIPTIONS 08/25/2011 [facility], [facility] R V68.1 ISSUE OF REPEAT PRESCRIPTIONS 08/25/2011 BOOGIE ARAUJO APRN V68.1 ISSUE OF REPEAT PRESCRIPTIONS 08/25/2011 DARRIUS HI DO V68.1 ISSUE OF REPEAT PRESCRIPTIONS 08/25/2011 BOOGIE ARAUJO APRN V68.1 ISSUE OF REPEAT PRESCRIPTIONS 08/25/2011 LAURA HINKLE MD V68.1 ISSUE OF REPEAT PRESCRIPTIONS 08/25/2011 LAURA HINKLE MD V68.1 ISSUE OF REPEAT PRESCRIPTIONS 08/25/2011 BOOGIE ARAUJO APRN V68.1 ISSUE OF REPEAT PRESCRIPTIONS 08/25/2011 BOOGIE ARAUJO APRN V68.1 ISSUE OF REPEAT PRESCRIPTIONS 08/25/2011 BOOGIE ARAUJO APRN V68.1 ISSUE OF REPEAT PRESCRIPTIONS 08/25/2011 BOOGIE ARAUJO APRN V68.1 ISSUE OF REPEAT PRESCRIPTIONS 08/25/2011 LAURA HINKLE MD V68.1 ISSUE OF REPEAT PRESCRIPTIONS 08/25/2011 BOOGIE ARAUJO APRN V68.1 ISSUE OF REPEAT PRESCRIPTIONS 08/25/2011 BOOGIE ARAUJO APRN V68.1 ISSUE OF REPEAT PRESCRIPTIONS 08/25/2011 BOOGIE ARAUJO APRN V68.1 ISSUE OF REPEAT PRESCRIPTIONS 08/25/2011 BOOGIE ARAUJO APRN V68.1 ISSUE OF REPEAT PRESCRIPTIONS 08/25/2011 BOOGIE ARAUJO APRN V68.1 ISSUE OF REPEAT PRESCRIPTIONS 08/25/2011 BOOGIE ARAUJO APRN V68.1 ISSUE OF REPEAT PRESCRIPTIONS 08/25/2011 BOOGIE ARAUJO APRN V68.1 ISSUE OF REPEAT PRESCRIPTIONS 08/25/2011 BOOGIE ARAUJO APRN V68.1 ISSUE OF REPEAT PRESCRIPTIONS 08/25/2011 TAYLOR KUHN APRN A V68.1 ISSUE OF REPEAT PRESCRIPTIONS 08/25/2011 TAYLOR KUHN APRN A V68.1 ISSUE OF REPEAT PRESCRIPTIONS 08/25/2011 TAYLOR KUHN APRN A V68.1 ISSUE OF REPEAT PRESCRIPTIONS 08/25/2011 BOOGIE ARAUJO APRN V68.1 ISSUE OF REPEAT PRESCRIPTIONS 08/25/2011 BOOGIE ARAUJO APRN V68.1 ISSUE OF REPEAT PRESCRIPTIONS 08/25/2011 BOOGIE ARAUJO APRN V68.1 ISSUE OF REPEAT PRESCRIPTIONS 08/25/2011 [facility], [facility] R V68.1 ISSUE OF REPEAT PRESCRIPTIONS 02/29/2012 BOOGIE ARAUJO APRN V04.81 FLU DX (3 YRS AND ABOVE, IM) 02/29/2012 V04.81 FLU DX (3 YRS AND ABOVE, IM) 02/29/2012 V04.81 Flu Dx (3 Yrs And Above, Im) 02/29/2012 V04.81 Flu Dx (3 Yrs And Above, Im) 02/29/2012 V04.81 Flu Dx (3 Yrs And Above, Im) 02/29/2012 V04.81 Flu Dx (3 Yrs And Above, Im) 02/29/2012 [facility], [place] R V04.81 Flu Dx (3 Yrs And Above, Im) 02/29/2012 BOOGIE ARAUJO APRN T V04.81 Flu Dx (3 Yrs And Above, Im) 02/29/2012 DARRIUS HI DO V04.81 Flu Dx (3 Yrs And Above, Im) 02/29/2012 BOOGIE ARAUJO APRN V04.81 Flu Dx (3 Yrs And Above, Im) 02/29/2012 LAURA HINKLE MD V04.81 Flu Dx (3 Yrs And Above, Im) 02/29/2012 LAURA HINKLE MD V04.81 Flu Dx (3 Yrs And Above, Im) 02/29/2012 BOOGIE ARAUJO APRN V04.81 Flu Dx (3 Yrs And Above, Im) 02/29/2012 BOOGIE ARAUJO APRN V04.81 Flu Dx (3 Yrs And Above, Im) 02/29/2012 BOOGIE ARAUJO APRN V04.81 Flu Dx (3 Yrs And Above, Im) 02/29/2012 BOOGIE ARAUJO APRN V04.81 Flu Dx (3 Yrs And Above, Im) 02/29/2012 LAURA HINKLE MD V04.81 Flu Dx (3 Yrs And Above, Im) 02/29/2012 BOOGIE ARAUJO APRN V04.81 Flu Dx (3 Yrs And Above, Im) 02/29/2012 BOOGIE ARAUJO APRN T V04.81 Flu Dx (3 Yrs And Above, Im) 02/29/2012 BOOGIE ARAUJO APRN V04.81 Flu Dx (3 Yrs And Above, Im) 02/29/2012 BOOGIE ARAUJO APRN V04.81 Flu Dx (3 Yrs And Above, Im) 02/29/2012 BOOGIE ARAUJO APRN T V04.81 Flu Dx (3 Yrs And Above, Im) 02/29/2012 GAYLE BOOGIE DANIEL T V04.81 Flu Dx (3 Yrs And Above, Im) 02/29/2012 GAYLE MARÍA, BOOGIE T V04.81 Flu Dx (3 Yrs And Above, Im) 02/29/2012 GAYLE BOOGIE DANIEL T V04.81 Flu Dx (3 Yrs And Above, Im) 02/29/2012 [employer], TAYLOR A V04.81 Flu Dx (3 Yrs And Above, Im) 02/29/2012 BAM H[employer] SAW HELPER, TAYLOR A V04.81 Flu Dx (3 Yrs And Above, Im) 02/29/2012 BAM APRN, TAYLOR A V04.81 Flu Dx (3 Yrs And Above, Im) 02/29/2012 GAYLE BOOGIE DANIEL T V04.81 Flu Dx (3 Yrs And Above, Im) 02/29/2012 BOOGIE ARAUJO APRN T V04.81 Flu Dx (3 Yrs And Above, Im) 02/29/2012 BOOGIE ARAUJO APRN T V04.81 Flu Dx (3 Yrs And Above, Im) 02/29/2012 [facility], KENN R V04.81 FLU DX (3 YRS AND ABOVE, IM) 03/16/2012 Ot V43.65 KNEE JOINT REPLACEMENT STATUS 03/16/2012 Ot V54.81 AFTERCARE FOLLOWING JOINT REPLACEMENT 03/16/2012 Ot V57.1 PHYSICAL THERAPY NEC 05/31/2012 BOOGIE ARAUJO APRN 729.5 LEG PAIN 05/31/2012 729.5 LEG PAIN 05/31/2012 729.5 LEG PAIN 05/31/2012 729.5 LEG PAIN 05/31/2012 729.5 LEG PAIN 05/31/2012 729.5 LEG PAIN 05/31/2012 [facility], KENN R 729.5 LEG PAIN 05/31/2012 BOOGIE ARAUJO APRN 729.5 LEG PAIN 05/31/2012 DARRIUS HI DO 729.5 LEG PAIN 05/31/2012 BOOGIE ARAUJO APRN 729.5 LEG PAIN 05/31/2012 LAURA HINKLE MD 729.5 LEG PAIN 05/31/2012 LAURA HINKLE MD 729.5 LEG PAIN 05/31/2012 [employer], BOOGIE T 729.5 LEG PAIN 05/31/2012 G[employer], BOOGIE T 729.5 LEG PAIN 05/31/2012 G[employer] HEL[employer], BOOGIE T 729.5 LEG PAIN 05/31/2012 G[employer], BOOGIE T 729.5 LEG PAIN 05/31/2012 LAURA HINKLE MD 729.5 LEG PAIN 05/31/2012 [employer], BOOGIE T 729.5 LEG PAIN 05/31/2012 G[employer] HEL[employer], BOOGIE T 729.5 LEG PAIN 05/31/2012 G[employer], BOOGIE T 729.5 LEG PAIN 05/31/2012 G[employer] HELPER, BOOGIE T 729.5 LEG PAIN 05/31/2012 G[employer] HEL[employer], BOOGIE T 729.5 LEG PAIN 05/31/2012 G[employer] HEL[employer], BOOGIE T 729.5 LEG PAIN 05/31/2012 G[employer] HEL[employer], BOOGIE T 729.5 LEG PAIN 05/31/2012 G[employer], BOOGIE T 729.5 LEG PAIN 05/31/2012 BAM APRN, TAYLOR A 729.5 LEG PAIN 05/31/2012 B[employer] HEL[employer], TAYLOR A 729.5 LEG PAIN 05/31/2012 B[employer] HELPER, TAYLOR A 729.5 LEG PAIN 05/31/2012 G[employer], BOOGIE T 729.5 LEG PAIN 05/31/2012 G[employer] HEL[employer], BOOGIE T 729.5 LEG PAIN 05/31/2012 G[employer], BOOGIE T 729.5 LEG PAIN 11/08/2012 LISA PAIGE MD Ot 250.00 DIAB CON WO COMPL, TYPE II OR UNSPEC TY 11/08/2012 LISA PAIGE MD Ot 272.4 HYPERLIPIDEMIA NEC/NOS 11/08/2012 LISA PAIGE MD Ot 278.00 OBESITY, NOS 11/08/2012 LISA PAIGE MD Ot 401.9 HYPERTENSION NOS 11/08/2012 LISA PAIGE MD Ot 414.01 CORONARY ATHEROSCLEROSIS OF [place] CORON 11/08/2012 LISA PAIGE MD Ot 424.0 MITRAL VALVE DISORDER 11/08/2012 LISA PAIGE MD Ot 433.10 CAROTID ARTERY OCCLUSION W O CEREBRAL IN 11/08/2012 LISA PAIGE MD Ot 794.30 ABN CARDIOVASC STUDY NOS 11/08/2012 LISA PAIGE MD Ot V15.82 HISTORY OF TOBACCO USE 11/08/2012 LISA PAIGE MD Ot V58.66 LONG-TERM (CURRENT) USE OF ASPIRIN 11/08/2012 LISA PAIGE MD Ot V58.69 OTH MED,LT,CURRENT USE 11/08/2012 LISA PAIGE MD Ot V85.39 BODY MASS INDEX 39.0-39.9, ADULT 03/23/2013 BOOGIE ARAUJO APRN 477.9 RHINITIS 03/23/2013 BOOGIE ARAUJO APRN 788.1 DYSURIA 03/23/2013 HI DO, DARRIUS Gregory 477.9 RHINITIS 03/23/2013 HI DO, DARRIUS K 788.1 DYSURIA 03/23/2013 BOOGIE ARAUJO APRN 477.9 RHINITIS 03/23/2013 BOOGIE ARAUJO APRN 788.1 DYSURIA 03/23/2013 LAURA HINKLE MD.Pete RHINITIS 03/23/2013 LAURA HINKLE MD.1 DYSURIA 03/23/2013 LAURA HINKLE MD.9 RHINITIS 03/23/2013 LAURA HINKLE MD8.1 DYSURIA 03/23/2013 BOOGIE ARAUJO APRN 477.9 RHINITIS 03/23/2013 BOOGIE ARAUJO APRN 788.1 DYSURIA 03/23/2013 BOOGIE ARAUJO APRN 477.9 RHINITIS 03/23/2013 BOOGIE ARAUJO APRN 788.1 DYSURIA 03/23/2013 BOOGIE ARAUJO APRN 477.9 RHINITIS 03/23/2013 BOOGIE ARAUJO APRN 788.1 DYSURIA 03/23/2013 BOOGIE ARAUJO APRN 477.9 RHINITIS 03/23/2013 BOOGIE ARAUJO APRN 788.1 DYSURIA 03/23/2013 LAURA HINKLE MD.Pete RHINITIS 03/23/2013 LAURA HINKLE MD.1 DYSURIA 03/23/2013 BOOGIE ARAUJO APRN 477.9 RHINITIS 03/23/2013 BOOGIE ARAUJO APRN 788.1 DYSURIA 03/23/2013 BOOGIE ARAUJO APRN 477.9 RHINITIS 03/23/2013 BOOGIE ARAUJO APRN 788.1 DYSURIA 03/23/2013 BOOGIE ARAUJO APRN T 477.9 RHINITIS 03/23/2013 GAYLE REIDNBOOGIE T 788.1 DYSURIA 03/23/2013 GAYLE REIDNBOOGIE T 477.9 RHINITIS 03/23/2013 GAYLE HOT SAW HELPER, BOOGIE T 788.1 DYSURIA 03/23/2013 BOOGIE ARAUJO APRN T 477.9 RHINITIS 03/23/2013 BOOGIE ARAUJO APRN T 788.1 DYSURIA 03/23/2013 BOOGIE ARAUJO APRN 477.9 RHINITIS 03/23/2013 GAYLE REIDNBOOGIE T 788.1 DYSURIA 03/23/2013 GAYLE REIDNBOOGIE T 477.9 RHINITIS 03/23/2013 BOOGIE ARAUJO APRN T 788.1 DYSURIA 03/23/2013 BOOGIE ARAUJO APRN T 477.9 RHINITIS 03/23/2013 BOOGIE ARAUJO APRN T 788.1 DYSURIA 03/23/2013 BAM HOT SAW HELPER, TAYLOR A 477.9 RHINITIS 03/23/2013 BAM HOT SAW HELPER, TAYLOR A 788.1 DYSURIA 03/23/2013 BAM HOT SAW HELPER, TAYLOR A 477.9 RHINITIS 03/23/2013 BAM HOT SAW HELPER, TAYLOR A 788.1 DYSURIA 03/23/2013 BAM HOT SAW HELPER, TAYLOR A 477.9 RHINITIS 03/23/2013 BAM HOT SAW HELPER, TAYLOR A 788.1 DYSURIA 03/23/2013 BOOGIE ARAUJO APRN T 477.9 RHINITIS 03/23/2013 BOOGIE ARAUJO APRN T 788.1 DYSURIA 03/23/2013 BOOGIE ARAUJO APRN 477.9 RHINITIS 03/23/2013 BOOGIE ARAUJO APRN T 788.1 DYSURIA 03/23/2013 BOOGIE ARAUJO APRN T 477.9 RHINITIS 03/23/2013 BOOGIE ARAUJO APRN T 788.1 DYSURIA 08/01/2013 BOOGIE ARAUJO APRN 682.9 CELLULITIS AND ABSCESS OF UNSPECIFIED SITES 08/01/2013 BOOGIE ARAUJO APRN 682.9 CELLULITIS AND ABSCESS OF UNSPECIFIED SITES 08/01/2013 BOOGIE ARAUJO APRN 682.9 CELLULITIS AND ABSCESS OF UNSPECIFIED SITES 08/01/2013 GAYLE HOT SAW HELPER, BOOGIE T 682.9 CELLULITIS AND ABSCESS OF UNSPECIFIED SITES 08/01/2013 LAURA HINKLE MD 682.9 CELLULITIS AND ABSCESS OF UNSPECIFIED SITES 08/01/2013 BOOGIE ARAUJO APRN 682.9 CELLULITIS AND ABSCESS OF UNSPECIFIED SITES 08/01/2013 BOOGIE ARAUJO APRN T 682.9 CELLULITIS AND ABSCESS OF UNSPECIFIED SITES 08/01/2013 BOOGIE ARAUJO APRN 682.9 CELLULITIS AND ABSCESS OF UNSPECIFIED SITES 08/01/2013 BOOGIE ARAUJO APRN 682.9 CELLULITIS AND ABSCESS OF UNSPECIFIED SITES 08/01/2013 BOOGIE ARAUJO APRN 682.9 CELLULITIS AND ABSCESS OF UNSPECIFIED SITES 08/01/2013 BOOGIE ARAUJO APRN 682.9 CELLULITIS AND ABSCESS OF UNSPECIFIED SITES 08/01/2013 BOOGIE ARAUJO APRN 682.9 CELLULITIS AND ABSCESS OF UNSPECIFIED SITES 08/01/2013 BOOGIE ARAUJO APRN 682.9 CELLULITIS AND ABSCESS OF UNSPECIFIED SITES 08/01/2013 BAM DANIEL TAYLOR A 682.9 CELLULITIS AND ABSCESS OF UNSPECIFIED SITES 08/01/2013 BAM DANIEL TAYLOR A 682.9 CELLULITIS AND ABSCESS OF UNSPECIFIED SITES 08/01/2013 BAM DANIEL TAYLOR A 682.9 CELLULITIS AND ABSCESS OF UNSPECIFIED SITES 08/01/2013 BOOGIE ARAUJO APRN 682.9 CELLULITIS AND ABSCESS OF UNSPECIFIED SITES 08/01/2013 BOOGIE ARAUJO APRN 682.9 CELLULITIS AND ABSCESS OF UNSPECIFIED SITES 08/01/2013 BOOGIE ARAUJO APRN 682.9 CELLULITIS AND ABSCESS OF UNSPECIFIED SITES 08/08/2013 BOOGIE ARAUJO APRN T 782.1 RASH 08/08/2013 BOOGIE ARAUJO APRN T 782.1 RASH 08/08/2013 BOOGIE ARAUJO APRN T 782.1 RASH 08/08/2013 LAURA HINKLE MD 782.1 RASH 08/08/2013 BOOGIE ARAUJO APRN T 782.1 RASH 08/08/2013 BOOGIE ARAUJO APRN T 782.1 RASH 08/08/2013 BOOGIE ARAUJO APRN T 782.1 RASH 08/08/2013 BOOGIE ARAUJO APRN T 782.1 RASH 08/08/2013 BOOGIE ARAUJO APRN T 782.1 RASH 08/08/2013 GAYLE REIDNBOOGIE T 782.1 RASH 08/08/2013 GAYLE REIDN, BOOGIE T 782.1 RASH 08/08/2013 GAYLE REIDN, BOOGIE T 782.1 RASH 08/08/2013 BAM APRN, TAYLOR A 782.1 RASH 08/08/2013 BAM HOT SAW HELPER, TAYLOR A 782.1 RASH 08/08/2013 BAM HOT SAW HELPER, TAYLOR A 782.1 RASH 08/08/2013 GAYLE REIDN, BOOGIE T 782.1 RASH 08/08/2013 GAYLE REIDN, BOOGIE T 782.1 RASH 08/08/2013 GAYLE REIDN, BOOGIE T 782.1 RASH 11/09/2013 ARIN ORTIZ, LAURA 719.46 PAIN- KNEE 11/09/2013 BOOGIE ARAUJO APRN T 719.46 PAIN- KNEE 11/09/2013 BOOGIE ARAUJO APRN T 719.46 PAIN- KNEE 11/09/2013 BOOGIE ARAUJO APRN T 719.46 PAIN- KNEE 11/09/2013 BOOGIE ARAUJO APRN T 719.46 PAIN- KNEE 11/09/2013 GAYLE REIDNBOOGIE T 719.46 PAIN- KNEE 11/09/2013 BOOGIE ARAUJO APRN T 719.46 PAIN- KNEE 11/09/2013 BOOGIE ARAUJO APRN T 719.46 PAIN- KNEE 11/09/2013 BOOIGE ARAUJO APRN T 719.46 PAIN- KNEE 11/09/2013 TAYLOR KUHN APRN A 719.46 PAIN- KNEE 11/09/2013 BAMTOBY Lindsay APRNIDI A 719.46 PAIN- KNEE 11/09/2013 TOBY KUHN APRNIDI A 719.46 PAIN- KNEE 11/09/2013 BOOGIE ARAUJO APRN T 719.46 PAIN- KNEE 11/09/2013 BOOGIE ARAUJO APRN T 719.46 PAIN- KNEE 11/09/2013 BOOGIE ARAUJO APRN T 719.46 PAIN- KNEE 04/12/2014 BOOGIE ARAUJO APRN T 477.9 RHINITIS 04/12/2014 BOOGIE ARAUJO APRN T 477.9 RHINITIS 04/12/2014 BOOGIE ARAUJO APRN 477.9 RHINITIS 04/12/2014 TAYLOR KUHN APRN A 477.9 RHINITIS 04/12/2014 BAM APRN, TAYLOR A 477.9 RHINITIS 04/12/2014 BAMKIN DANIEL, TAYLOR A 477.9 RHINITIS 04/12/2014 BOOGIE ARAUJO APRN T 477.9 RHINITIS 04/12/2014 BOOGIE ARAUJO APRN T 477.9 RHINITIS 04/12/2014 BOOGIE ARAUJO APRN T 477.9 RHINITIS 04/15/2014 BOOGIE ARAUJO APRN T 599.0 URINARY TRACT INFECTION 04/15/2014 BOOGIE ARAUJO APRN T 599.0 URINARY TRACT INFECTION 04/15/2014 BAMTAYLOR Lindsay APRN A 599.0 URINARY TRACT INFECTION 04/15/2014 BAMTAYLOR SANDERSON APRN A 599.0 URINARY TRACT INFECTION 04/15/2014 BAMTOBY SANDERSON APRNIDI A 599.0 URINARY TRACT INFECTION 04/15/2014 BOOGIE ARAUJO APRN 599.0 URINARY TRACT INFECTION 04/15/2014 BOOGIE ARAUJO APRN 599.0 URINARY TRACT INFECTION 04/15/2014 BOOGIE ARAUJO APRN 599.0 URINARY TRACT INFECTION 05/09/2014 BAMTAYLOR Lindsay APRN A 789.09 ABDOMINAL PAIN OTHER SPECIFIED SITE 05/09/2014 TAYLOR KUHN APRN A 789.09 ABDOMINAL PAIN OTHER SPECIFIED SITE 05/09/2014 TAYLOR KUHN APRN A 789.09 ABDOMINAL PAIN OTHER SPECIFIED SITE 05/09/2014 BOOGIE ARAUJO APRN 789.09 ABDOMINAL PAIN OTHER SPECIFIED SITE 05/09/2014 BOOGIE ARAUJO APRN 789.09 ABDOMINAL PAIN OTHER SPECIFIED SITE 05/09/2014 BOOGIE ARAUJO APRN 789.09 ABDOMINAL PAIN OTHER SPECIFIED SITE 05/12/2014 JABIER ORTIZ, CARISA T Ot 682.4 CELLULITIS OF HAND 05/12/2014 JABIER ORTIZ, CARISA T Ot 729.5 PAIN IN LIMB 05/15/2014 TAYLOR KUHN APRN V65.49 OTHER SPECIFIED COUNSELING 05/15/2014 TAYLOR KUHN APRN V72.31 SPRAYER LEATHER EXAM, ROUTINE 05/15/2014 TAYLOR KUHN APRN V76.10 BREAST CANCER SCREENING 05/15/2014 BAM HOT SAW HELPER, TAYLOR A V65.49 OTHER SPECIFIED COUNSELING 05/15/2014 TAYLOR KUHN APRN V72.31 SPRAYER LEATHER EXAM, ROUTINE 05/15/2014 TAYLOR KUHN APRN A V76.10 BREAST CANCER SCREENING 05/15/2014 BOOGIE ARAUJO APRN V65.49 OTHER SPECIFIED COUNSELING 05/15/2014 BOOGIE ARAUJO APRN V72.31 SPRAYER LEATHER EXAM, ROUTINE 05/15/2014 BOOGIE ARAUJO APRN V76.10 BREAST CANCER SCREENING 05/15/2014 BOOGIE ARAUJO APRN V65.49 OTHER SPECIFIED COUNSELING 05/15/2014 BOOGIE ARAUJO APRN V72.31 SPRAYER LEATHER EXAM, ROUTINE 05/15/2014 BOOGIE ARAUJO APRN V76.10 BREAST CANCER SCREENING 05/15/2014 BOOGIE ARAUJO APRN V65.49 OTHER SPECIFIED COUNSELING 05/15/2014 BOOGIE ARAUJO APRN V72.31 SPRAYER LEATHER EXAM, ROUTINE 05/15/2014 BOOGIE ARAUJO APRN V76.10 BREAST CANCER SCREENING 06/11/2014 TAYLOR KUHN APRN 793.80 ABNORMAL MAMMOGRAM 06/11/2014 BOOGIE ARAUJO APRN 793.80 ABNORMAL MAMMOGRAM 06/11/2014 BOOGIE ARAUJO APRN 793.80 ABNORMAL MAMMOGRAM 06/11/2014 BOOGIE ARAUJO APRN 793.80 ABNORMAL MAMMOGRAM 06/25/2014 TAYLOR KUHN APRN Ot V76.12 06/28/2014 BOOGIE ARAUJO APRN 564.00 CONSTIPATION 06/28/2014 BOOGIE ARAUJO APRN 729.5 PAIN- ARM 06/28/2014 BOGOIE ARAUJO APRN 564.00 CONSTIPATION 06/28/2014 BOOGIE ARAUJO APRN 729.5 PAIN- ARM 06/28/2014 BOOGIE ARAUJO APRN 564.00 CONSTIPATION 06/28/2014 BOOGIE ARAUJO APRN 729.5 PAIN- ARM 07/19/2014 TAYLOR KUHN APRN Ot 793.89 09/13/2014 BOOGIE ARAUJO APRN 338.29 CHRONIC PAIN 09/13/2014 BOOGIE ARAUJO APRN 719.41 PAIN- SHOULDER 09/13/2014 BOOGIE ARAUJO APRN 338.29 CHRONIC PAIN 09/13/2014 BOOGIE ARAUJO APRN 719.41 PAIN- SHOULDER 10/11/2014 GAYLE HOT SAW HELPERBOOGIE V03.82 PPV23 (PNEUMOVAX) DX 12/02/2014 BROOKLYN ORTIZ, PAIGE Avila Ot 719.41 01/07/2015 TAYLOR KUHN APRN Ot 793.89 03/21/2015 SIDDIQI-RO PA, JOSE ANGEL K Ot 401.9 03/21/2015 SIDDIQI-RO PA, JOSE ANGEL K Ot 414.00 03/21/2015 SIDDIQI-RO PA, JOSE ANGEL K Ot 433.10 03/21/2015 SIDDIQI-RO PA, JOSE ANGEL K Ot 786.50 04/01/2015 SIDDIQI-RO PA, JOSE ANGEL K Ot 401.9 04/01/2015 SIDDIQI-RO PA, JOSE ANGEL K Ot 414.00 04/01/2015 SIDDIQI-RO PA, JOSE ANGEL K Ot 433.10 04/01/2015 SIDDIQI-RO PA, JOSE ANGEL K Ot 786.50 04/01/2015 SIDDIQI-RO PA, JOSE ANGEL K Ot 401.9 04/01/2015 SIDDIQI-RO PA, JOSE ANGEL K Ot 414.00 04/01/2015 SIDDIQI-RO PA, JOSE ANGEL K Ot 433.10 04/01/2015 SIDDIQI-RO PA, JOSE ANGEL K Ot 786.50 06/27/2015 Ot 250.00 06/27/2015 Ot 397.0 06/27/2015 Ot 401.9 06/27/2015 Ot 424.0 06/27/2015 Ot 429.3 06/27/2015 Ot 786.50 06/27/2015 Ot 250.00 06/27/2015 Ot 401.9 06/27/2015 Ot 786.50 06/27/2015 ROYAL ORTIZ, LISA Hammer Ot 272.4 06/27/2015 ROYAL ORTIZ, LISA Hammer Ot 397.0 06/27/2015 ROYAL ORTIZ, LISA Hammer Ot 401.9 06/27/2015 ROYAL ORTIZ, LISA Hammer Ot 424.0 06/27/2015 ROYAL ORTIZ, LISA Hammer Ot 429.3 06/27/2015 ROYAL ORTIZ, ILSA Hammer Ot 786.50 06/27/2015 ROYAL ORTIZ, LISA Hammer Ot 272.4 06/27/2015 ROYAL ORTIZ, LISA Hammer Ot 401.9 06/27/2015 ROYAL ORTIZ, LISA Hammer Ot 786.50 06/27/2015 ABAD ORTIZ, BOOGIE Kirby Ot 719.46 06/27/2015 ABAD ORTIZ, BOOGIE Kirby Ot V43.65 06/27/2015 BAMTAYLOR HOT SAW HELPER Ot V76.12 06/27/2015 BAMTAYLOR HOT SAW HELPER Ot 793.89 06/27/2015 BAMTAYLOR HOT SAW HELPER Ot 793.89 06/27/2015 BROOKLYN ORTIZ, PAIGE R Ot 719.41 06/27/2015 STEPH PA, JOSE ANGEL K Ot 401.9 06/27/2015 STEPH PA, JOSE ANGEL K Ot 414.00 06/27/2015 STEPH PA, JOSE ANGEL K Ot 433.10 06/27/2015 STEPH PA, JOSE ANGEL K Ot 786.50 06/27/2015 STEPH PA, JOSE ANGEL K Ot 401.9 06/27/2015 STEPH PA, JOSE ANGEL K Ot 414.00 06/27/2015 STEPH PA, JOSE ANGEL K Ot 433.10 06/27/2015 STEPH PA, JOSE ANGEL K Ot 786.50 06/30/2015 HELIO WILEY HOT SAW HELPER Ot R92.8 07/08/2015 [place] DAVID VERDE Ot D12.3 BENIGN NEOPLASM OF TRANSVERSE COLON 07/08/2015 [place] DAVID VERDE Ot D12.5 BENIGN NEOPLASM OF SIGMOID COLON 07/08/2015 [place] DAVID EVRDE Ot D12.8 BENIGN NEOPLASM OF RECTUM 07/08/2015 [place] DAVID VERDE Ot R19.7 DIARRHEA, UNSPECIFIED 07/08/2015 [place] DAVID VERDE Ot Z12.11 ENCOUNTER FOR SCREENING FOR MALIGNANT NE 07/16/2015 HELIO WILEY HOT SAW HELPER Ot R92.8 11/19/2015 Ot 250.00 DIAB CON WO COMPL, TYPE II OR UNSPEC TY 11/19/2015 Ot 397.0 TRICUSPID VALVE DISEASE 11/19/2015 Ot 401.9 HYPERTENSION NOS 11/19/2015 Ot 424.0 MITRAL VALVE DISORDER 11/19/2015 Ot 429.3 CARDIOMEGALY 11/19/2015 Ot 786.50 CHEST PAIN NOS 11/19/2015 Ot 250.00 DIAB CON WO COMPL, TYPE II OR UNSPEC TY 11/19/2015 Ot 401.9 HYPERTENSION NOS 11/19/2015 Ot 786.50 CHEST PAIN NOS 11/19/2015 LISA PAIGE MD Ot 272.4 HYPERLIPIDEMIA NEC/NOS 11/19/2015 LISA PAIGE MD Ot 397.0 TRICUSPID VALVE DISEASE 11/19/2015 LISA PAIGE MD Ot 401.9 HYPERTENSION NOS 11/19/2015 LISA PAIGE MD Ot 424.0 MITRAL VALVE DISORDER 11/19/2015 LISA PAIGE MD Ot 429.3 CARDIOMEGALY 11/19/2015 LISA PAIGE MD Ot 786.50 CHEST PAIN NOS 11/19/2015 LISA PAIGE MD Ot 272.4 HYPERLIPIDEMIA NEC/NOS 11/19/2015 LISA PAIGE MD Ot 401.9 HYPERTENSION NOS 11/19/2015 LISA PAIGE MD Ot 786.50 CHEST PAIN NOS 11/19/2015 ABAD ORTIZ, BOOGIE Kirby Ot 719.46 JOINT PAIN-L/LEG 11/19/2015 BOOGIE MELGOZA MD Ot V43.65 KNEE JOINT REPLACEMENT STATUS 11/19/2015 TAYLOR KUHN HOT SAW HELPER Ot V76.12 OTH SCREEN MAMMO-MALIGN NEOPLASM OF ELA 11/19/2015 TAYLOR KUHN HOT SAW HELPER Ot 793.89 OTH (ABN) FINDINGS ON RADIOLOGICAL EXAMI 11/19/2015 TAYLOR KUHN HOT SAW HELPER Ot 793.89 OTH (ABN) FINDINGS ON RADIOLOGICAL EXAMI 11/19/2015 [place] ORTIZ, PAIGE Avila Ot 719.41 JOINT PAIN-SHLDER 11/19/2015 JOSE ANGEL SAUER Ot 401.9 HYPERTENSION NOS 11/19/2015 JOSE ANGEL SAUER Ot 414.00 CORON ATHEROSCLER NOS TYPE VESSEL, NATIV 11/19/2015 JOSE ANGEL SAUER Ot 433.10 CAROTID ARTERY OCCLUSION W O CEREBRAL IN 11/19/2015 JOSE ANGEL SAUER Ot 786.50 CHEST PAIN NOS 11/19/2015 JOSE ANGEL SAUER Ot 401.9 HYPERTENSION NOS 11/19/2015 JOSE ANGEL SAUER Ot 414.00 CORON ATHEROSCLER NOS TYPE VESSEL, NATIV 11/19/2015 JOSE ANGEL SAUER Ot 433.10 CAROTID ARTERY OCCLUSION W O CEREBRAL IN 11/19/2015 JOSE ANGEL SAUER Ot 786.50 CHEST PAIN NOS 11/19/2015 GRUPOKRISTINE HELIOMAURICE Santiago APRN Ot R92.8 OTH ABN AND INCONCLUSIVE FINDINGS ON DX 11/19/2015 DAVID SMYTH DO Ot Z01.818 ENCOUNTER FOR OTHER PREPROCEDURAL EXAMIN 11/21/2015 JED SAINZ DO Ot I25.10 ATHSCL HEART DISEASE OF [place] CORONARY 11/21/2015 JED SAINZ DO Ot R06.00 DYSPNEA, UNSPECIFIED 11/25/2015 JED SAINZ DO Ot G47.33 OBSTRUCTIVE SLEEP APNEA (ADULT) (PEDIATR 11/25/2015 JED SAINZ DO Ot I10 ESSENTIAL (PRIMARY) HYPERTENSION 12/04/2015 JED SAINZ DO Ot I25.10 ATHSCL HEART DISEASE OF [place] CORONARY 12/04/2015 JED SAINZ DO Ot R06.00 DYSPNEA, UNSPECIFIED 01/16/2016 JAYY JIANG APRN Ot G47.33 OBSTRUCTIVE SLEEP APNEA (ADULT) (PEDIATR 01/16/2016 JAYY JIANG APRN Ot G47.61 PERIODIC LIMB MOVEMENT DISORDER 01/21/2016 JAYY JIANG APRN Ot G47.33 OBSTRUCTIVE SLEEP APNEA (ADULT) (PEDIATR 01/21/2016 JAYY JIANG APRN Ot G47.61 PERIODIC LIMB MOVEMENT DISORDER 06/07/2016 LISA PAIGE MD Ot 272.4 HYPERLIPIDEMIA NEC/NOS 06/07/2016 LISA PAIGE MD Ot 397.0 TRICUSPID VALVE DISEASE 06/07/2016 LISA PAIGE MD Ot 401.9 HYPERTENSION NOS 06/07/2016 LISA PAIGE MD Ot 424.0 MITRAL VALVE DISORDER 06/07/2016 LISA PAIGE MD Ot 429.3 CARDIOMEGALY 06/07/2016 LISA PAIGE MD Ot 786.50 CHEST PAIN NOS 06/07/2016 LISA PAIGE MD Ot 272.4 HYPERLIPIDEMIA NEC/NOS 06/07/2016 LISA PAIGE MD Ot 401.9 HYPERTENSION NOS 06/07/2016 ROYAL ORTIZ, LISA Hammer Ot 786.50 CHEST PAIN NOS 06/07/2016 ABAD ORTIZ, BOOGIE Kirby Ot 719.46 JOINT PAIN-L/LEG 06/07/2016 ABAD ORTIZ, BOOGIE Kirby Ot V43.65 KNEE JOINT REPLACEMENT STATUS 06/07/2016 TAYLOR KUHN HOT SAW HELPER Ot V76.12 OTH SCREEN MAMMO-MALIGN NEOPLASM OF ELA 06/07/2016 TAYLOR KUHN HOT SAW HELPER Ot 793.89 OTH (ABN) FINDINGS ON RADIOLOGICAL EXAMI 06/07/2016 TAYLOR KUHN HOT SAW HELPER Ot 793.89 OTH (ABN) FINDINGS ON RADIOLOGICAL EXAMI 06/07/2016 [place] ORTIZ, PAIGE Avila Ot 719.41 JOINT PAIN-SHLDER 06/07/2016 JOSE ANGEL SAUER Ot 401.9 HYPERTENSION NOS 06/07/2016 JOSE ANGEL SAUER Ot 414.00 CORON ATHEROSCLER NOS TYPE VESSEL, NATIV 06/07/2016 JOSE ANGEL SAUER Ot 433.10 CAROTID ARTERY OCCLUSION W O CEREBRAL IN 06/07/2016 JOSE ANGEL SAUER Ot 786.50 CHEST PAIN NOS 06/07/2016 JOSE ANGEL SAUER Ot 401.9 HYPERTENSION NOS 06/07/2016 JOSE ANGEL SAUER Ot 414.00 CORON ATHEROSCLER NOS TYPE VESSEL, NATIV 06/07/2016 JOSE ANGEL SAUER Ot 433.10 CAROTID ARTERY OCCLUSION W O CEREBRAL IN 06/07/2016 JOSE ANGEL SAUER Ot 786.50 CHEST PAIN NOS 06/07/2016 HELIO WILEY HOT SAW HELPER Ot R92.8 OTH ABN AND INCONCLUSIVE FINDINGS ON DX 06/07/2016 DAVID SMYTH DO Ot Z01.818 ENCOUNTER FOR OTHER PREPROCEDURAL EXAMIN 06/07/2016 JED SAINZ DO Ot I25.10 ATHSCL HEART DISEASE OF [place] CORONARY 06/07/2016 JED SAINZ DO Ot R06.00 DYSPNEA, UNSPECIFIED 06/08/2016 JED SAINZ DO Ot E27.9 DISORDER OF ADRENAL GLAND, UNSPECIFIED 06/08/2016 JED SAINZ DO Ot I31.3 PERICARDIAL EFFUSION (NONINFLAMMATORY) 06/08/2016 EMELI VERDE JED Monsalve Ot K80.20 CALCULUS OF GALLBLADDER W/O CHOLECYSTITI 06/08/2016 EMELI VERDE JED Gricel Ot R59.0 LOCALIZED ENLARGED LYMPH NODES 06/08/2016 EMELI DO JED Gricel Ot E27.9 DISORDER OF ADRENAL GLAND, UNSPECIFIED 06/08/2016 EMELI VERDE JED Gricel Ot I31.3 PERICARDIAL EFFUSION (NONINFLAMMATORY) 06/08/2016 EMELI VERDE JED Gricel Ot K80.20 CALCULUS OF GALLBLADDER W/O CHOLECYSTITI 06/08/2016 EMELI DOJED Ot R59.0 LOCALIZED ENLARGED LYMPH NODES 06/23/2016 LISA PAIGE MD Ot 272.4 HYPERLIPIDEMIA NEC/NOS 06/23/2016 LISA PAIGE MD Ot 397.0 TRICUSPID VALVE DISEASE 06/23/2016 LISA PAIGE MD Ot 401.9 HYPERTENSION NOS 06/23/2016 LISA PAIGE MD Ot 424.0 MITRAL VALVE DISORDER 06/23/2016 LISA PAIGE MD Ot 429.3 CARDIOMEGALY 06/23/2016 LISA PAIGE MD Ot 786.50 CHEST PAIN NOS 06/23/2016 LISA PAIGE MD Ot 272.4 HYPERLIPIDEMIA NEC/NOS 06/23/2016 LISA PAIGE MD Ot 401.9 HYPERTENSION NOS 06/23/2016 LISA PAIGE MD Ot 786.50 CHEST PAIN NOS 06/23/2016 BOOGIE MELGOZA MD Ot 719.46 JOINT PAIN-L/LEG 06/23/2016 BOOGIE MELGOZA MD Ot V43.65 KNEE JOINT REPLACEMENT STATUS 06/23/2016 TAYLOR KUHN APRN Ot V76.12 OTH SCREEN MAMMO-MALIGN NEOPLASM OF ELA 06/23/2016 TAYLOR KUHN HOT SAW HELPER Ot 793.89 OTH (ABN) FINDINGS ON RADIOLOGICAL EXAMI 06/23/2016 TAYLOR KUHN HOT SAW HELPER Ot 793.89 OTH (ABN) FINDINGS ON RADIOLOGICAL EXAMI 06/23/2016 [place] ORTIZ, PAIGE Avila Ot 719.41 JOINT PAIN-SHLDER 06/23/2016 JOSE ANGEL SAUER Ot 401.9 HYPERTENSION NOS 06/23/2016 JOSE ANGEL SAUER Ot 414.00 CORON ATHEROSCLER NOS TYPE VESSEL, NATIV 06/23/2016 JOSE ANGEL SAUER Ot 433.10 CAROTID ARTERY OCCLUSION W O CEREBRAL IN 06/23/2016 JOSE ANGEL SAUER Ot 786.50 CHEST PAIN NOS 06/23/2016 JOSE ANGEL SAUER Ot 401.9 HYPERTENSION NOS 06/23/2016 JOSE ANGEL SAUER Ot 414.00 CORON ATHEROSCLER NOS TYPE VESSEL, NATIV 06/23/2016 STEPH ECHEVARRIA JOSE ANGEL K Ot 433.10 CAROTID ARTERY OCCLUSION W O CEREBRAL IN 06/23/2016 JOSE ANGEL SAUER Ot 786.50 CHEST PAIN NOS 06/23/2016 HELIO WILEY APRN Ot R92.8 OTH ABN AND INCONCLUSIVE FINDINGS ON DX 06/23/2016 DAVID SMYTH DO Ot Z01.818 ENCOUNTER FOR OTHER PREPROCEDURAL EXAMIN 06/23/2016 JED SAINZ DO Ot I25.10 ATHSCL HEART DISEASE OF [place] CORONARY 06/23/2016 JED SAINZ DO Ot R06.00 DYSPNEA, UNSPECIFIED 06/23/2016 JED SAINZ DO Ot E27.9 DISORDER OF ADRENAL GLAND, UNSPECIFIED 06/23/2016 JED SAINZ DO Ot I31.3 PERICARDIAL EFFUSION (NONINFLAMMATORY) 06/23/2016 JED SAINZ DO, Ot K80.20 CALCULUS OF GALLBLADDER W/O CHOLECYSTITI 06/23/2016 JED SAINZ DO Ot R59.0 LOCALIZED ENLARGED LYMPH NODES 06/24/2016 JED SAINZ DO Ot E27.9 DISORDER OF ADRENAL [place], UNSPECIFIED 06/24/2016 JED SAINZ DO Ot I31.3 PERICARDIAL EFFUSION (NONINFLAMMATORY) 06/24/2016 JED SAINZ DO Ot K80.20 CALCULUS OF GALLBLADDER W/O CHOLECYSTITI 06/24/2016 JED SAINZ DO Ot R59.0 LOCALIZED ENLARGED LYMPH NODES 06/25/2016 JED SAINZ DO Ot E66.9 OBESITY, UNSPECIFIED 06/25/2016 EMELI DO, JED M Ot G47.33 OBSTRUCTIVE SLEEP APNEA (ADULT) (PEDIATR 06/25/2016 EMELI DOJED M Ot J30.9 ALLERGIC RHINITIS, UNSPECIFIED 06/25/2016 EMELI DOJED M Ot R06.09 OTHER FORMS OF DYSPNEA 07/08/2016 EMELI DONATHANIELJED M Ot E66.9 OBESITY, UNSPECIFIED 07/08/2016 EMELI DONATHANIELJED M Ot G47.33 OBSTRUCTIVE SLEEP APNEA (ADULT) (PEDIATR 07/08/2016 EMELI DOJED M Ot J30.9 ALLERGIC RHINITIS, UNSPECIFIED 07/08/2016 EMELI DOJED M Ot R06.09 OTHER FORMS OF DYSPNEA 07/20/2016 JAYY JIANG HOT SAW HELPER Ot J18.9 PNEUMONIA, UNSPECIFIED ORGANISM 07/22/2016 MADL, ANGEL L OIL GAUGER Ot Z12.31 ENCNTR SCREEN MAMMOGRAM FOR MALIGNANT NE 07/22/2016 JAYY JIANG HOT SAW HELPER Ot D12.6 BENIGN NEOPLASM OF COLON, UNSPECIFIED 07/22/2016 JAYY JIANG HOT SAW HELPER Ot E66.9 OBESITY, UNSPECIFIED 07/22/2016 JAYY JIANG HOT SAW HELPER Ot F41.9 ANXIETY DISORDER, UNSPECIFIED 07/22/2016 JAYY JIANG HOT SAW HELPER Ot G47.33 OBSTRUCTIVE SLEEP APNEA (ADULT) (PEDIATR 07/22/2016 JAYY JIANG HOT SAW HELPER Ot J30.9 ALLERGIC RHINITIS, UNSPECIFIED 07/22/2016 MADL, ANGEL L OIL GAUGER Ot Z12.31 ENCNTR SCREEN MAMMOGRAM FOR MALIGNANT NE 07/27/2016 JAYY JIANG HOT SAW HELPER Ot D12.6 BENIGN NEOPLASM OF COLON, UNSPECIFIED 07/27/2016 JAYY JIANG HOT SAW HELPER Ot E66.9 OBESITY, UNSPECIFIED 07/27/2016 JAYY JIANG HOT SAW HELPER Ot F41.9 ANXIETY DISORDER, UNSPECIFIED 07/27/2016 JAYY JIANG HOT SAW HELPER Ot G47.33 OBSTRUCTIVE SLEEP APNEA (ADULT) (PEDIATR 07/27/2016 JAYY JIANG HOT SAW HELPER Ot J30.9 ALLERGIC RHINITIS, UNSPECIFIED 08/04/2016 MADL, ANGEL L OIL GAUGER Ot Z12.31 ENCNTR SCREEN MAMMOGRAM FOR MALIGNANT NE 08/10/2016 JAYY JIANG APRN Ot D12.6 BENIGN NEOPLASM OF COLON, UNSPECIFIED 08/10/2016 JAYY JIANG APRN Ot E66.9 OBESITY, UNSPECIFIED 08/10/2016 JAYY JIANG APRN Ot F41.9 ANXIETY DISORDER, UNSPECIFIED 08/10/2016 JAYY JIANG APRN Ot G47.33 OBSTRUCTIVE SLEEP APNEA (ADULT) (PEDIATR 08/10/2016 JAYY JIANG APRN Ot J30.9 ALLERGIC RHINITIS, UNSPECIFIED 10/08/2016 JOSE ANGEL SAUER Ot I10 ESSENTIAL (PRIMARY) HYPERTENSION 10/08/2016 JOSE ANGEL SAUER Ot I25.10 ATHSCL HEART DISEASE OF [place] CORONARY 10/08/2016 JOSE ANGEL SAUER Ot 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 10/08/2016 JOSE ANGEL SAUER Ot R06.02 SHORTNESS OF BREATH 10/22/2016 JOSE ANGEL SAUER Ot I10 ESSENTIAL (PRIMARY) HYPERTENSION 10/22/2016 JOSE ANGEL SAUER Ot I25.10 ATHSCL HEART DISEASE OF [place] CORONARY 10/22/2016 JOSE ANGEL SAUER Ot 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 10/22/2016 JOSE ANGEL SAUER Ot R06.02 SHORTNESS OF BREATH 04/18/2017 LISA PAIGE MD Ot 272.4 HYPERLIPIDEMIA NEC/NOS 04/18/2017 LISA PAIGE MD Ot 397.0 TRICUSPID VALVE DISEASE 04/18/2017 LISA PAIGE MD Ot 401.9 HYPERTENSION NOS 04/18/2017 LISA PAIGE MD Ot 424.0 MITRAL VALVE DISORDER 04/18/2017 LISA PAIGE MD Ot 429.3 CARDIOMEGALY 04/18/2017 LISA PAIGE MD Ot 786.50 CHEST PAIN NOS 04/18/2017 LISA PAIGE MD Ot 272.4 HYPERLIPIDEMIA NEC/NOS 04/18/2017 LISA PAIGE MD Ot 401.9 HYPERTENSION NOS 04/18/2017 LISA PAIGE MD Ot 786.50 CHEST PAIN NOS 04/18/2017 ABAD ORTIZ, BOOGIE Kirby Ot 719.46 JOINT PAIN-L/LEG 04/18/2017 ABAD ORTIZ, BOOGIE Kirby Ot V43.65 KNEE JOINT REPLACEMENT STATUS 04/18/2017 TAYLOR KUHN HOT SAW HELPER Ot V76.12 OTH SCREEN MAMMO-MALIGN NEOPLASM OF ELA 04/18/2017 TAYLOR KUHN HOT SAW HELPER Ot 793.89 OTH (ABN) FINDINGS ON RADIOLOGICAL EXAMI 04/18/2017 TAYLOR KUHN HOT SAW HELPER Ot 793.89 OTH (ABN) FINDINGS ON RADIOLOGICAL EXAMI 04/18/2017 BROOKLYN ORTIZ, PAIGE Avila Ot 719.41 JOINT PAIN-SHLDER 04/18/2017 JOSE ANGEL SAUER Ot 401.9 HYPERTENSION NOS 04/18/2017 JOSE ANGEL SAUER Ot 414.00 CORON ATHEROSCLER NOS TYPE VESSEL, NATIV 04/18/2017 JOSE ANGEL SAUER Ot 433.10 CAROTID ARTERY OCCLUSION W O CEREBRAL IN 04/18/2017 JOSE ANGEL SAUER Ot 786.50 CHEST PAIN NOS 04/18/2017 JOSE ANGEL SAUER Ot 401.9 HYPERTENSION NOS 04/18/2017 JOSE ANGEL SAUER Ot 414.00 CORON ATHEROSCLER NOS TYPE VESSEL, NATIV 04/18/2017 JOSE ANGEL SAUER Ot 433.10 CAROTID ARTERY OCCLUSION W O CEREBRAL IN 04/18/2017 JSOE ANGEL SAUER Ot 786.50 CHEST PAIN NOS 04/18/2017 HELIO WILEY HOT SAW HELPER Ot R92.8 OTH ABN AND INCONCLUSIVE FINDINGS ON DX 04/18/2017 DAVID SMYTH DO Ot Z01.818 ENCOUNTER FOR OTHER PREPROCEDURAL EXAMIN 04/18/2017 JED SAINZ DO Ot I25.10 ATHSCL HEART DISEASE OF [place] CORONARY 04/18/2017 JED SAINZ DO Ot R06.00 DYSPNEA, UNSPECIFIED 04/18/2017 JED SAINZ DO Ot E27.9 DISORDER OF ADRENAL GLAND, UNSPECIFIED 04/18/2017 JED SAINZ DO Ot I31.3 PERICARDIAL EFFUSION (NONINFLAMMATORY) 04/18/2017 JED SAINZ DO Ot K80.20 CALCULUS OF GALLBLADDER W/O CHOLECYSTITI 04/18/2017 JED SAINZ DO Ot R59.0 LOCALIZED ENLARGED LYMPH NODES 04/18/2017 JED SAINZ DO Ot E66.9 OBESITY, UNSPECIFIED 04/18/2017 JED SAINZ DO Ot G47.33 OBSTRUCTIVE SLEEP APNEA (ADULT) (PEDIATR 04/18/2017 JED SAINZ DO Ot J30.9 ALLERGIC RHINITIS, UNSPECIFIED 04/18/2017 JED SAINZ DO Ot R06.09 OTHER FORMS OF DYSPNEA 04/18/2017 JAYY JIANG APRN Ot D12.6 BENIGN NEOPLASM OF COLON, UNSPECIFIED 04/18/2017 JAYY JIANG APRN Ot E66.9 OBESITY, UNSPECIFIED 04/18/2017 JAYY JIANG APRN Ot F41.9 ANXIETY DISORDER, UNSPECIFIED 04/18/2017 JAYY JIANG APRN Ot G47.33 OBSTRUCTIVE SLEEP APNEA (ADULT) (PEDIATR 04/18/2017 JAYY JIANG APRN Ot J30.9 ALLERGIC RHINITIS, UNSPECIFIED 04/18/2017 JAYY JIANG APRN Ot J18.9 PNEUMONIA, UNSPECIFIED ORGANISM 04/18/2017 ANGEL RIDLEY Ot Z12.31 ENCNTR SCREEN MAMMOGRAM FOR MALIGNANT NE 04/18/2017 JOSE ANGEL SAUER Ot I10 ESSENTIAL (PRIMARY) HYPERTENSION 04/18/2017 JOSE ANGEL SAUER Ot I25.10 ATHSCL HEART DISEASE OF [place] CORONARY 04/18/2017 JOSE ANGEL SAUER Ot 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 04/18/2017 JOSE ANGEL SAUER Ot R06.02 SHORTNESS OF BREATH 05/17/2017 WILFRIDO FISHER MD Ot E11.628 TYPE 2 DIABETES MELLITUS WITH OTHER SKIN 05/17/2017 WILFRIDO FISHER MD Ot L03.031 CELLULITIS OF RIGHT TOE 05/17/2017 WILFRIDO FISHER MD, Ot S90.211A CONTUSION OF RIGHT GREAT TOE W DAMAGE TO 07/22/2017 LISA PAIGE MD Ot 272.4 HYPERLIPIDEMIA NEC/NOS 07/22/2017 LISA PAIGE MD Ot 397.0 TRICUSPID VALVE DISEASE 07/22/2017 LISA PAIGE MD Ot 401.9 HYPERTENSION NOS 07/22/2017 LISA PAIGE MD Ot 424.0 MITRAL VALVE DISORDER 07/22/2017 LISA PAIGE MD Ot 429.3 CARDIOMEGALY 07/22/2017 LISA PAIGE MD Ot 786.50 CHEST PAIN NOS 07/22/2017 LISA PAIGE MD Ot 272.4 HYPERLIPIDEMIA NEC/NOS 07/22/2017 LISA PAIGE MD Ot 401.9 HYPERTENSION NOS 07/22/2017 LISA PAIGE MD Ot 786.50 CHEST PAIN NOS 07/22/2017 ABAD ORTIZ, BOOGIE Kirby Ot 719.46 JOINT PAIN-L/LEG 07/22/2017 BOOGIE MELGOZA MD Ot V43.65 KNEE JOINT REPLACEMENT STATUS 07/22/2017 TAYLOR KUHN HOT SAW HELPER Ot V76.12 OTH SCREEN MAMMO-MALIGN NEOPLASM OF ELA 07/22/2017 TAYLOR KUHN HOT SAW HELPER Ot 793.89 OTH (ABN) FINDINGS ON RADIOLOGICAL EXAMI 07/22/2017 TAYLOR KUHN HOT SAW HELPER Ot 793.89 OTH (ABN) FINDINGS ON RADIOLOGICAL EXAMI 07/22/2017 BROOKLYN ORTIZ, PAIGE Avila Ot 719.41 JOINT PAIN-SHLDER 07/22/2017 JOSE ANGEL SAUER Ot 401.9 HYPERTENSION NOS 07/22/2017 JOSE ANGEL SAUER Ot 414.00 CORON ATHEROSCLER NOS TYPE VESSEL, NATIV 07/22/2017 JOSE ANGEL SAUER Ot 433.10 CAROTID ARTERY OCCLUSION W O CEREBRAL IN 07/22/2017 JOSE ANGEL SAUER Ot 786.50 CHEST PAIN NOS 07/22/2017 JOSE ANGEL SAUER Ot 401.9 HYPERTENSION NOS 07/22/2017 JOSE ANGEL SAUER Ot 414.00 CORON ATHEROSCLER NOS TYPE VESSEL, NATIV 07/22/2017 JOSE ANGEL SAUER Ot 433.10 CAROTID ARTERY OCCLUSION W O CEREBRAL IN 07/22/2017 JOSE ANGEL SAUER Ot 786.50 CHEST PAIN NOS 07/22/2017 HELIO WILEY HOT SAW HELPER Ot R92.8 OTH ABN AND INCONCLUSIVE FINDINGS ON DX 07/22/2017 DAVID SMYTH DO Ot Z01.818 ENCOUNTER FOR OTHER PREPROCEDURAL EXAMIN 07/22/2017 JED SAINZ DO Ot I25.10 ATHSCL HEART DISEASE OF [place] CORONARY 07/22/2017 JED SAINZ DO Ot R06.00 DYSPNEA, UNSPECIFIED 07/22/2017 JED SAINZ DO Ot E27.9 DISORDER OF ADRENAL GLAND, UNSPECIFIED 07/22/2017 JED SAINZ DO Ot I31.3 PERICARDIAL EFFUSION (NONINFLAMMATORY) 07/22/2017 JED SAINZ DO Ot K80.20 CALCULUS OF GALLBLADDER W/O CHOLECYSTITI 07/22/2017 JED SAINZ DO Ot R59.0 LOCALIZED ENLARGED LYMPH NODES 07/22/2017 JED SAINZ DO Ot E66.9 OBESITY, UNSPECIFIED 07/22/2017 JED SAINZ DO Ot G47.33 OBSTRUCTIVE SLEEP APNEA (ADULT) (PEDIATR 07/22/2017 JED SAINZ DO, Ot J30.9 ALLERGIC RHINITIS, UNSPECIFIED 07/22/2017 JED SAINZ DO Ot R06.09 OTHER FORMS OF DYSPNEA 07/22/2017 JAYY JIANG APRN Ot D12.6 BENIGN NEOPLASM OF COLON, UNSPECIFIED 07/22/2017 JAYY JIANG APRN Ot E66.9 OBESITY, UNSPECIFIED 07/22/2017 JAYY JIANG APRN Ot F41.9 ANXIETY DISORDER, UNSPECIFIED 07/22/2017 JAYY JIANG APRN Ot G47.33 OBSTRUCTIVE SLEEP APNEA (ADULT) (PEDIATR 07/22/2017 JAYY JIANG APRN Ot J30.9 ALLERGIC RHINITIS, UNSPECIFIED 07/22/2017 JAYY JIANG APRN Ot J18.9 PNEUMONIA, UNSPECIFIED ORGANISM 07/22/2017 ANGEL RIDLEY Ot Z12.31 ENCNTR SCREEN MAMMOGRAM FOR MALIGNANT NE 07/22/2017 JOSE ANGEL SAUER Ot I10 ESSENTIAL (PRIMARY) HYPERTENSION 07/22/2017 JOSE ANGEL SAUER Ot I25.10 ATHSCL HEART DISEASE OF [place] CORONARY 07/22/2017 JOSE ANGEL SAUER Ot 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 07/22/2017 JOSE ANGEL SAUER Ot R06.02 SHORTNESS OF BREATH 07/22/2017 WILFRIDO FISHER MD Ot E11.628 TYPE 2 DIABETES MELLITUS WITH OTHER SKIN 07/22/2017 WILFRIDO FISHER MD Ot L03.031 CELLULITIS OF RIGHT TOE 07/22/2017 WILFRIDO FISHER MD Ot S90.211A CONTUSION OF RIGHT GREAT TOE W DAMAGE TO 07/25/2017 ANGEL RIDLEY OIL GAUGER Ot Z12.31 ENCNTR SCREEN MAMMOGRAM FOR MALIGNANT NE 08/12/2017 DULCE MARIALANGEL OIL GAUGER Ot Z12.31 ENCNTR SCREEN MAMMOGRAM FOR MALIGNANT NE 08/26/2017 ANGEL RIDLEY OIL GAUGER Ot Z12.31 ENCNTR SCREEN MAMMOGRAM FOR MALIGNANT NE 10/05/2017 LISA PAIGE MD Ot 272.4 HYPERLIPIDEMIA NEC/NOS 10/05/2017 LISA PAIGE MD Ot 397.0 TRICUSPID VALVE DISEASE 10/05/2017 LISA PAIGE MD Ot 401.9 HYPERTENSION NOS 10/05/2017 LISA PAIGE MD Ot 424.0 MITRAL VALVE DISORDER 10/05/2017 LISA PAIGE MD Ot 429.3 CARDIOMEGALY 10/05/2017 LISA PAIGE MD Ot 786.50 CHEST PAIN NOS 10/05/2017 LISA PAIGE MD Ot 272.4 HYPERLIPIDEMIA NEC/NOS 10/05/2017 LISA PAIGE MD Ot 401.9 HYPERTENSION NOS 10/05/2017 LISA PAIGE MD Ot 786.50 CHEST PAIN NOS 10/05/2017 BOOGIE MELGOZA MD Ot 719.46 JOINT PAIN-L/LEG 10/05/2017 BOOGIE MELGOZA MD Ot V43.65 KNEE JOINT REPLACEMENT STATUS 10/05/2017 TAYLOR KUHN APRN Ot V76.12 OTH SCREEN MAMMO-MALIGN NEOPLASM OF ELA 10/05/2017 TAYLOR KUHN APRN Ot 793.89 OTH (ABN) FINDINGS ON RADIOLOGICAL EXAMI 10/05/2017 TAYLOR KUHN APRN Ot 793.89 OTH (ABN) FINDINGS ON RADIOLOGICAL EXAMI 10/05/2017 BROOKLYN ORTIZ, PAIGE R Ot 719.41 JOINT PAIN-SHLDER 10/05/2017 JOSE ANGEL SAUER Ot 401.9 HYPERTENSION NOS 10/05/2017 JOSE ANGEL SAUER Ot 414.00 CORON ATHEROSCLER NOS TYPE VESSEL, NATIV 10/05/2017 JOSE ANGEL SAUER Ot 433.10 CAROTID ARTERY OCCLUSION W O CEREBRAL IN 10/05/2017 JOSE ANGEL SAUER Ot 786.50 CHEST PAIN NOS 10/05/2017 JOSE ANGEL SAUER Ot 401.9 HYPERTENSION NOS 10/05/2017 JOSE ANGEL SAUER Ot 414.00 CORON ATHEROSCLER NOS TYPE VESSEL, NATIV 10/05/2017 JOSE ANGEL SAUER Ot 433.10 CAROTID ARTERY OCCLUSION W O CEREBRAL IN 10/05/2017 JOSE ANGEL SAUER K Ot 786.50 CHEST PAIN NOS 10/05/2017 HELIO WILEY APRN Ot R92.8 OTH ABN AND INCONCLUSIVE FINDINGS ON DX 10/05/2017 DAVID SMYTH DO Ot Z01.818 ENCOUNTER FOR OTHER PREPROCEDURAL EXAMIN 10/05/2017 JED SAINZ DO Ot I25.10 ATHSCL HEART DISEASE OF [place] CORONARY 10/05/2017 JED SAINZ DO Ot R06.00 DYSPNEA, UNSPECIFIED 10/05/2017 JED SAINZ DO Ot E27.9 DISORDER OF ADRENAL GLAND, UNSPECIFIED 10/05/2017 JED SAINZ DO Ot I31.3 PERICARDIAL EFFUSION (NONINFLAMMATORY) 10/05/2017 JED SAINZ DO Ot K80.20 CALCULUS OF GALLBLADDER W/O CHOLECYSTITI 10/05/2017 JED SAINZ DO Ot R59.0 LOCALIZED ENLARGED LYMPH NODES 10/05/2017 JED SAINZ DO Ot E66.9 OBESITY, UNSPECIFIED 10/05/2017 JED SAINZ DO Ot G47.33 OBSTRUCTIVE SLEEP APNEA (ADULT) (PEDIATR 10/05/2017 JED SAINZ DO Ot J30.9 ALLERGIC RHINITIS, UNSPECIFIED 10/05/2017 JED SAINZ DO Ot R06.09 OTHER FORMS OF DYSPNEA 10/05/2017 JAYY JIANG APRN Ot D12.6 BENIGN NEOPLASM OF COLON, UNSPECIFIED 10/05/2017 JAYY JIANG APRN Ot E66.9 OBESITY, UNSPECIFIED 10/05/2017 JAYY JIANG APRN Ot F41.9 ANXIETY DISORDER, UNSPECIFIED 10/05/2017 JAYY JIANG APRN Ot G47.33 OBSTRUCTIVE SLEEP APNEA (ADULT) (PEDIATR 10/05/2017 JAYY JIANG APRN Ot J30.9 ALLERGIC RHINITIS, UNSPECIFIED 10/05/2017 JAYY JIANG APRN Ot J18.9 PNEUMONIA, UNSPECIFIED ORGANISM 10/05/2017 ANGEL RIDLEY Ot Z12.31 ENCNTR SCREEN MAMMOGRAM FOR MALIGNANT NE 10/05/2017 JOSE ANGEL SAUER Ot I10 ESSENTIAL (PRIMARY) HYPERTENSION 10/05/2017 JOSE ANGEL SAUER Ot I25.10 ATHSCL HEART DISEASE OF [place] CORONARY 10/05/2017 JOSE ANGEL SAUER Ot 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 10/05/2017 JOSE ANGEL SAUER Ot R06.02 SHORTNESS OF BREATH 10/05/2017 WILFRIDO FISHER MD Ot E11.628 TYPE 2 DIABETES MELLITUS WITH OTHER SKIN 10/05/2017 WILFRIDO FISHER MD Ot L03.031 CELLULITIS OF RIGHT TOE 10/05/2017 WILFRIDO FISHER MD, Ot S90.211A CONTUSION OF RIGHT GREAT TOE W DAMAGE TO 10/05/2017 ANGEL RIDLEY Ot Z12.31 ENCNTR SCREEN MAMMOGRAM FOR MALIGNANT NE 10/27/2017 DAVID SMYTH DO Ot D64.9 ANEMIA, UNSPECIFIED 10/27/2017 DAVID SMYTH DO Ot K92.1 MELENA 10/27/2017 DAVID SMYTH DO Ot Z01.818 ENCOUNTER FOR OTHER PREPROCEDURAL EXAMIN Procedures Code Description [place] [address] INDIV PSYTX 45/50 MIN 04/26/2012 09839 ROUTINE VENIPUNCTURE 05/31/2012 80143 INDIV PSYTX 45/50 MIN 05/31/2012 22780 A1C (IN-HOUSE) 05/31/2012 49312 BMP 05/31/2012 7372557 GFR CALC (RESULT ONLY) 05/31/2012 71361 MAGNESIUM 05/31/2012 21693 A1C (IN-HOUSE) 09/12/2012 22324 MICRO ALBUMIN-IN HOUSE 09/12/2012 86311 MICROALBUMIN 09/12/2012 56827 PSYTX PT&/FAMILY 45 MINUTES 10/06/2012 87691 PSYTX PT&/FAMILY 45 MINUTES 11/29/2012 79867 A1C (IN-HOUSE) 02/21/2013 60342 PSYTX PT&/FAMILY 45 MINUTES 03/06/2013 25235 ROUTINE VENIPUNCTURE 03/23/2013 40239 TSH 03/23/2013 53495 UA LONG DIP 03/23/2013 33171 MICRO ALBUMIN-IN HOUSE 03/23/2013 55186 CBC 03/23/2013 40320 LIPID PANEL 03/23/2013 G0008 FLU ADMINISTRATION ( MEDICARE ONLY) 03/23/2013 39880 CMP 03/23/2013 9146065 GFR CALC (RESULT ONLY) 03/23/2013 87695 A1C (IN-HOUSE) 05/25/2013 82335 A1C (IN-HOUSE) 09/03/2013 56773 XRAY KNEE LEFT, 1 OR 2 VIEWS 11/09/2013 10137 A1C (IN-HOUSE) 12/07/2013 83866 ROUTINE VENIPUNCTURE 02/19/2014 41782 CBC 02/19/2014 20789 CMP 02/19/2014 10612 LIPID PANEL 02/19/2014 [id number] GFR CALC (RESULT ONLY) 02/19/2014 55638 A1C (IN-HOUSE) 03/13/2014 14225 MICRO ALBUMIN-IN HOUSE 03/13/2014 87556 MICROALBUMIN 03/13/2014 40546 UA W/ CULTURE IF INDICATED 04/15/2014 00884 UA LONG DIP 04/22/2014 28282 MAMMOGRAM DX, LEFT 05/09/2014 87498 UA W/ CULTURE IF INDICATED 05/09/2014 17647 MAMMOGRAM, SCREENING 05/15/2014 15501 A1C (IN-HOUSE) 06/28/2014 95154 XRAY SHOULDER LEFT COMP 2 VIEWS 09/13/2014 64778 MICROALBUMIN 09/13/2014 59725 MICRO ALBUMIN-IN HOUSE 09/13/2014 67368 UA LONG DIP 10/11/2014 Results Test Result Range [id number] - 06/07/16 08:48 Serum or plasma urea nitrogen measurement (mass/volume) 14 mg/dL 7-18 Serum or plasma creatinine measurement (mass/volume) 0.96 mg/dL 0.60-1.30 Serum or plasma urea nitrogen/creatinine mass ratio 15 NRG Serum or plasma creatinine measurement with calculation of estimated glomerular filtration rate 59 NRG CBC With Differential/Platelet - 08/26/16 00:00 WBC 10.2 x10E3/uL 3.4-10.8 RBC 4.19 x10E6/uL 3.77-5.28 Hemoglobin 10.2 g/dL 11.1-15.9 Hematocrit 32.9 % 34.0-46.6 MCV 79 fL 79-97 MCH 24.3 pg 26.6-33.0 MCHC 31.0 g/dL 31.5-35.7 RDW 16.6 % 12.3-15.4 Platelets 353 x10E3/uL 150-379 Neutrophils 60 % Lymphs 30 % Monocytes 6 % Eos 2 % Basos 1 % Neutrophils (Absolute) 6.2 x10E3/uL 1.4-7.0 Lymphs (Absolute) 3.0 x10E3/uL 0.7-3.1 Monocytes(Absolute) 0.6 x10E3/uL 0.1-0.9 Eos (Absolute) 0.2 x10E3/uL 0.0-0.4 Baso (Absolute) 0.1 x10E3/uL 0.0-0.2 Immature Granulocytes 1 % Immature Grans (Abs) 0.1 x10E3/uL 0.0-0.1 Comp. Metabolic Panel (14) - 08/26/16 00:00 Glucose, Serum 210 mg/dL 65-99 BUN 11 mg/dL 8-27 Creatinine, Serum 1.08 mg/dL 0.57-1.00 eGFR If NonAfricn Am 54 mL/min/1.73 >59 eGFR If Africn Am 63 mL/min/1.73 >59 BUN/Creatinine Ratio 10 11-26 Sodium, Serum 139 mmol/L 134-144 Potassium, Serum 4.7 mmol/L 3.5-5.2 Chloride, Serum 98 mmol/L 96-106 Carbon Dioxide, Total 22 mmol/L 18-29 Calcium, Serum 9.3 mg/dL 8.7-10.3 Protein, Total, Serum 7.1 g/dL 6.0-8.5 Albumin, Serum 4.3 g/dL 3.6-4.8 Globulin, Total 2.8 g/dL 1.5-4.5 A/G Ratio 1.5 1.1-2.5 Bilirubin, Total 0.2 mg/dL 0.0-1.2 Alkaline Phosphatase, S 104 IU/L 39-117 AST (SGOT) 30 IU/L 0-40 ALT (SGPT) 24 IU/L 0-32 Lipid Panel - 08/26/16 00:00 Cholesterol, Total 145 mg/dL 100-199 Triglycerides 176 mg/dL 0-149 HDL Cholesterol 43 mg/dL >39 VLDL Cholesterol Max 35 mg/dL 5-40 LDL Cholesterol Calc 67 mg/dL 0-99 TSH - 08/26/16 00:00 TSH 3.850 uIU/mL 0.450-4.500 CULTURE, URINE - 04/18/17 12:46 CULTURE, URINE, ROUTINE SEE NOTE NRG CULTURE, URINE - 05/23/17 10:57 CULTURE, URINE, ROUTINE SEE NOTE NRG MICROALBUMIN/CREATININE RATIO, URINE - 09/20/17 09:09 CREATININE, RANDOM URINE 108 mg/dL 20-320 MICROALBUMIN 1.8 mg/dL See Note: MICROALBUMIN/CREATININE RATIO, RANDOM URINE 17 mcg/mg creat <30 CBC - 09/20/17 09:18 WHITE BLOOD CELL COUNT 10.0 Thousand/uL 3.8-10.8 RED BLOOD CELL COUNT 3.61 Million/uL 3.80-5.10 HEMOGLOBIN 7.5 g/dL 11.7-15.5 HEMATOCRIT 25.7 % 35.0-45.0 MCV 71.2 fL 80.0-100.0 MCH 20.8 pg 27.0-33.0 MCHC 29.2 g/dL 32.0-36.0 RDW 16.8 % 11.0-15.0 PLATELET COUNT 388 Thousand/uL 140-400 MPV 10.1 fL 7.5-12.5 ABSOLUTE NEUTROPHILS 6300 cells/uL 0351-2303 ABSOLUTE LYMPHOCYTES 2920 cells/uL 850-3900 ABSOLUTE MONOCYTES 540 cells/uL 200-950 ABSOLUTE EOSINOPHILS 170 cells/uL 15-500 ABSOLUTE BASOPHILS 70 cells/uL 0-200 NEUTROPHILS 63 % NRG LYMPHOCYTES 29.2 % NRG MONOCYTES 5.4 % NRG EOSINOPHILS 1.7 % NRG BASOPHILS 0.7 % NRG CULTURE, URINE - 09/27/17 15:16 CULTURE, URINE, ROUTINE SEE NOTE NRG CBC - 09/30/17 09:00 WHITE BLOOD CELL COUNT 10.6 Thousand/uL 3.8-10.8 RED BLOOD CELL COUNT 3.60 Million/uL 3.80-5.10 HEMOGLOBIN 7.3 g/dL 11.7-15.5 HEMATOCRIT 26.1 % 35.0-45.0 MCV 72.5 fL 80.0-100.0 MCH 20.3 pg 27.0-33.0 MCHC 28.0 g/dL 32.0-36.0 RDW 16.9 % 11.0-15.0 PLATELET COUNT 395 Thousand/uL 140-400 MPV 10.7 fL 7.5-12.5 ABSOLUTE NEUTROPHILS 6445 cells/uL 1432-0130 ABSOLUTE LYMPHOCYTES 3191 cells/uL 850-3900 ABSOLUTE MONOCYTES 721 cells/uL 200-950 ABSOLUTE EOSINOPHILS 170 cells/uL 15-500 ABSOLUTE BASOPHILS 74 cells/uL 0-200 NEUTROPHILS 60.8 % NRG LYMPHOCYTES 30.1 % NRG MONOCYTES 6.8 % NRG EOSINOPHILS 1.6 % NRG BASOPHILS 0.7 % NRG Encounters ACCT No. Visit Date/Time Discharge Status Pt. Type Provider Facility Loc./Unit Complaint [id number] 10/11/2014 11:21:00 10/11/2014 23:59:59 [facility] Outpatient BOOGIE ARAUJO APRN [id number] 09/13/2014 11:52:00 09/13/2014 23:59:59 [facility] Outpatient BOOGIE ARAUJO APRN [id number] 06/28/2014 09:46:00 06/28/2014 23:59:59 [facility] Outpatient BOOGIE ARAUJO APRN [id number] 05/15/2014 12:18:00 05/15/2014 23:59:59 [facility] Outpatient TAYLOR KUHN APRN [id number] 05/09/2014 10:22:00 05/09/2014 23:59:59 [facility] Outpatient TAYLOR KUHN APRN [id number] 05/09/2014 10:22:00 05/09/2014 23:59:59 [facility] Outpatient TAYLOR KUHN APRN [id number] 04/22/2014 09:29:00 04/22/2014 23:59:59 [facility] Outpatient BOOGIE ARAUJO APRN [id number] 04/15/2014 09:53:00 04/15/2014 23:59:59 [facility] Outpatient BOOGIE ARAUJO APRN [id number] 04/12/2014 09:27:00 04/12/2014 23:59:59 [facility] Outpatient BOOGIE ARAUJO APRN [id number] 03/13/2014 10:04:00 03/13/2014 23:59:59 [facility] Outpatient BOOGIE ARAUJO APRN [id number] 02/19/2014 08:25:00 02/19/2014 23:59:59 [facility] Outpatient BOOGIE ARAUJO APRN [id number] 12/07/2013 09:31:00 12/07/2013 23:59:59 [facility] Outpatient BOOGIE ARAUJO APRN [id number] 12/07/2013 09:31:00 12/07/2013 23:59:59 [facility] Outpatient BOOGIE ARAUJO APRN [id number] 11/09/2013 15:34:00 11/09/2013 23:59:59 CLS Outpatient LAURA HINKLE MD [id number] 11/09/2013 15:34:00 11/09/2013 23:59:59 [facility] Outpatient BOOGIE ARAUJO APRN [id number] 09/03/2013 08:58:00 09/03/2013 23:59:59 [facility] Outpatient BOOGIE ARAUJO APRN [id number] 09/03/2013 08:58:00 09/03/2013 23:59:59 [facility] Outpatient BOOGIE ARAUJO APRN [id number] 08/08/2013 14:24:00 08/08/2013 23:59:59 [facility] Outpatient BOOGIE ARAUJO APRN [id number] 08/01/2013 15:32:00 08/01/2013 23:59:59 [facility] Outpatient BOOGIE ARAUJO APRN [id number] 05/25/2013 09:26:00 05/25/2013 23:59:59 CLS Outpatient LAURA HINKLE MD [id number] 05/25/2013 09:26:00 05/25/2013 23:59:59 CLS Outpatient LAURA HINKLE MD [id number] 04/23/2013 09:24:00 04/23/2013 23:59:59 [facility] Outpatient BOOGIE ARAUJO APRN [id number] 03/23/2013 08:44:00 03/23/2013 23:59:59 [facility] Outpatient BOOGIE ARAUJO APRN [id number] 03/23/2013 08:44:00 03/23/2013 23:59:59 CLS Outpatient DARRIUS [place] DO [id number] 03/06/2013 09:25:00 03/06/2013 23:59:59 [facility]LS Outpatient KENN OBRIEN [id number] 09/12/2012 14:12:00 09/12/2012 23:59:59 CLS Outpatient [id number] 05/31/2012 10:34:00 05/31/2012 23:59:59 [facility] Outpatient BOOGIE ARAUJO APRN [id number] 05/31/2012 10:34:00 05/31/2012 23:59:59 CLS Outpatient [id number] 04/11/2012 13:52:00 04/11/2012 23:59:59 CLS Outpatient KENN ORBIEN [id number] 02/21/2013 10:30:00 Document Registration [id number] 11/23/2012 10:45:00 Document Registration [id number] 10/06/2012 10:46:00 Document Registration [id number] 09/30/2017 09:20:00 09/30/2017 23:59:59 CLS Outpatient BOOGIE ARAUJO APRN [facility] [id number] 09/30/2017 09:20:00 Document Registration [id number] 09/27/2017 15:00:00 Document Registration [id number] 09/20/2017 09:09:00 Document Registration [id number] 09/20/2017 09:00:00 Document Registration [id number] 2017 11:00:00 Document Registration [id number] 04/18/2017 12:05:00 Document Registration [id number] 08/27/2016 09:11:00 Document Registration [id number] 10/25/2017 05:40:00 10/25/2017 15:16:00 DIS Outpatient DAVID SMYTH DO [facility] PREOP COLONOSCOPY/EGD [id number] 10/20/2017 13:35:00 10/20/2017 23:59:59 CLS Outpatient KAMILA MARKS [facility] ONC [id number] 07/22/2017 09:52:00 07/22/2017 23:59:59 CLS Outpatient ANGEL RIDLEY [facility] RAD Z12.31 SCREENING BREAST EXAM [id number] 05/02/2017 09:29:00 05/02/2017 23:59:59 CLS Outpatient WILFRIDO FISHER MD [facility] WOUNDCARE [id number] 10/07/2016 08:37:00 10/07/2016 23:59:59 CLS Outpatient JOSE ANGEL SAUER [facility] CARD CAD,HTN,SOB ON EXERTION [id number] 07/21/2016 13:47:00 07/21/2016 23:59:59 CLS Outpatient ANGEL RIDLEY OIL GAUGER [facility] RAD SCREENING [id number] 07/21/2016 13:42:00 07/21/2016 23:59:59 CLS Outpatient JAYY JIANG APRN [facility] RAD JOVANY,OBESITY, ALLERGIC RHINITIS [id number] 07/07/2016 08:33:00 07/07/2016 23:59:59 CLS Outpatient JAYY JIANG APRN [facility] RAD PNEUMONI [id number] 06/23/2016 11:22:00 06/23/2016 23:59:59 CLS Outpatient JED SAINZ DO [facility] RT DYSPNEA,OBESITY [id number] 06/07/2016 08:34:00 06/07/2016 23:59:59 CLS Outpatient JED SAINZ DO [facility] RAD DYSPNEA,OBESITY [id number] 01/15/2016 19:26:00 01/16/2016 06:47:00 DIS Outpatient JAYY JIANG APRN [facility] SLEEP HYPERSOMNIA, SLEEP DISTURBANCE [id number] 11/24/2015 21:49:00 11/25/2015 07:05:00 DIS Outpatient JED SAINZ DO [facility] SLEEP JOVANY, [id number] 11/19/2015 12:06:00 11/19/2015 23:59:59 CLS Outpatient JED SAINZ DO [facility] RT DYSPNEA,CAD [id number] 07/08/2015 09:51:00 07/08/2015 12:45:00 DIS Outpatient SMYTH DAVID Galilea [facility] SDC SCREENING [id number] 07/01/2015 05:38:00 07/01/2015 23:59:59 CLS Outpatient LIBRA VERDE DAVID Galilea [facility] PREOP SCREENING [id number] 06/27/2015 08:41:00 06/27/2015 23:59:59 CLS Outpatient HELIO WILEY HOT SAW HELPER [facility] RAD HX OF ABNORMAL MAMMO [id number] 03/19/2015 07:06:00 03/19/2015 23:59:59 CLS Outpatient JOSE ANGEL SAUER [facility] CARD CAD,DAMIAN,CP, HTN [id number] 03/17/2015 09:02:00 03/17/2015 23:59:59 CLS Outpatient JOSE ANGEL SAUER [facility] CARD CAD,DAMIAN,CP, HTN [id number] 12/23/2014 11:55:00 12/23/2014 23:59:59 CLS Outpatient TAYLOR KUHN HOT SAW HELPER [facility] RAD FOLLOW UP [id number] 11/12/2014 15:07:00 11/12/2014 23:59:59 CLS Preadmit PAIGE BARAHONA MD [facility] REHAB [id number] 10/28/2014 10:25:00 10/28/2014 23:59:59 CLS Outpatient PAIGE BARAHONA MD [facility] RAD LEFT SHOULDER PAIN [id number] 06/26/2014 13:14:00 06/26/2014 23:59:59 CLS Outpatient TAYLOR KUHN HOT SAW HELPER [facility] RAD ASYMMETRY LEFT BREAST [id number] 06/04/2014 08:46:00 06/04/2014 23:59:59 CLS Outpatient TAYLOR KUHN A HOT SAW HELPER [facility] RAD ROUTINE [id number] 05/12/2014 09:58:00 05/12/2014 13:21:00 DIS Emergency CARISA EUGENE MD [facility] ER R HAND PAIN [id number] 02/27/2013 10:15:00 02/27/2013 23:59:59 CLS Outpatient ABAD ORTIZ, BOOGIE Kirby [facility] RAD PAINFUL RT TOTAL KNEE REPLACEMENT [id number] 11/08/2012 06:32:00 11/08/2012 17:10:00 DIS Outpatient LISA PAIGE MD [facility] CATH SOB,ABN STRESS,HTN,HLP, DM,OBESITY [id number] 10/31/2012 11:20:00 10/31/2012 23:59:59 CLS Outpatient LISA PAIGE MD [facility] RAD CP,HTN,HLP [id number] 10/26/2012 09:43:00 10/26/2012 23:59:59 CLS Outpatient LISA PAIGE MD [facility] CARD CP,HTN,HLP [id number] 11/01/2017 09:20:00 PEN Preadmit DAVID SMYTH DO [facility] ENDO DECREASED RBC'S/ANEMIA/BLOOD IN STOOLS/ CONSTIPATIO [id number] 03/16/2012 08:42:00 Document Registration [id number] 10/14/2010 10:35:00 Document Registration [id number] 09/24/2010 09:46:00 Document Registration [email or web address] 03/19/2015 07:08:22 ACT Document Registration
[2017-11-01] MEDS ORDERED: HURRICAINE EXT TUBE (BENZOCAINE) ONE (08:23)
[2017-11-01] MEDS ORDERED: HURRICAINE EXT TUBE (BENZOCAINE) XX PRN (08:30)
[2017-11-01] MEDS ORDERED: LACTATED RINGERS 1,000 ML IV STA (08:30)
[2017-11-01 08:44] VITALS: BP 135/75
[2017-11-01] MEDS ORDERED: NS IV 500 ML 500 ML IV SCH (08:45)
--- NOTE | 2017-11-01 09:29 | Progress Note-Post Operative ---
Post-Operative Progess Note Surgeon (s)/Research And Development Director (s) Surgeon DAVID SMYTH DO Research And Development Director: na Pre-Operative Diagnosis constipation, blood in stool, iron def anemia Post-Operative Diagnosis gastritis, reflux esophagitis, ascending colon polyps, diverticulosis Procedure & Operative Findings Date of Procedure 11/01/17 Procedure Performed/Findings egd c biopsies, colonoscopy with hot bx polypectomy x 2 ascending colon Anesthesia Type per supervisor accounts receivable Estimated Blood Loss Estimated blood loss (mL): none Specimens/Packing Specimens Removed antrum, body, ge ascending colon polyp x 2 DAVID SMYTH DO November 01, 2017 09:29
[2017-11-01] MEDS ORDERED: PANT40TA2 PO (09:30)
--- NOTE | 2017-11-01 09:31 | Discharge Inst-Simple/Standard ---
Discharge Inst-Standard Discharge Medications New, Converted or Re-Newed RX: Transmitted to Pharmacy Patient Instructions/Follow Up Plan of Care/Instructions/FU: 2 weeks Jose Activity as Tolerated: Yes Discharge Diet: Regular Diet DAVID SMYTH DO November 01, 2017 09:31
[2017-11-01 09:40] VITALS: BP 137/81
[2017-11-01 10:10] VITALS: BP 125/65
[2017-11-01 10:17] VITALS: BP 125/65
--- NOTE | 2017-11-01 13:45 | Anesthesia-General Post-Op ---
MAC Patient Condition Mental Status/LOC: Same as Preop Cardiovascular: Satisfactory Nausea/Vomiting: Absent Respiratory: Satisfactory Pain: Controlled Complications: Absent Post Op Complications Complications None Follow Up Care/Instructions Patient Instructions None needed. Anesthesiology Discharge Order Discharge Order Patient is doing well, no complaints, stable vital signs, no apparent adverse anesthesia problems. No complications reported per nursing. MADELINE MONTERROSO CRNA November 01, 2017 13:45
--- NOTE | 2017-11-01 14:59 | OPERATIVE REPORT ---
DATE OF SERVICE: 11/01/2017 PREOPERATIVE DIAGNOSES: Constipation, blood in stool, iron deficiency anemia. POSTOPERATIVE DIAGNOSES: Gastritis, reflux esophagitis, ascending colon polyps x2, diverticulosis. PROCEDURE: EGD with biopsies and colonoscopy with hot biopsy polypectomy x2 ascending colon. 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 ESTIMATED BLOOD LOSS: None. COMPLICATIONS: None. INDICATIONS: The patient is a 67-year-old female who has been having constipation, some blood in the stools and found to be iron deficiency anemia. She understands risks and benefits of procedure and wished to proceed with procedure. Consent was signed on the chart. DESCRIPTION OF PROCEDURE: The patient was taken to the endoscopy suite, placed in left lateral recumbent position. Timeout was performed. Scope was inserted in the mouth, down the esophagus, stomach and into the duodenum without difficulty. There were no polyps, mass or ulcerations of the duodenum. Scope was slowly retracted back into the stomach where further insufflated. Some erythematous changes present consistent with some slight gastritis. Biopsy of the antrum was obtained and also of the body. Scope was retroflexed noting no other pathology. Scope was returned to its normal position, slowly withdrawn to the distal esophagus, which has some slight appearance of some reflux esophagitis. There are no polyps, mass or ulcerations. The scope was then slowly retracted until completely removed, noting no other pathology. Digital rectal exam was performed. There were no palpable polyps, mass or ulcerations. The scope was inserted in the rectum advanced all the way to the cecum with minimal difficulty. Prep was fair needed irrigation and suction, but able to visualize the mucosa. There were no polyps, mass or ulcerations in the cecum. In the ascending colon, there were 2 slightly larger polyps present within the ascending colon, which hot biopsy polypectomy was performed and specimens obtained. Scope was then continuously retracted back. There were no polyps, mass or ulcerations within the transverse colon, descending colon. Within the sigmoid colon, there was a minimal amount of diverticulosis present. No polyps, mass or ulcerations. The scope was in the rectum, where it was also retroflexed noting no other pathology. Scope was returned to its normal position, slowly withdrawn until completely removed. The patient tolerated procedure well without complications. She was taken to recovery room in stable condition. RECOMMENDATIONS: The patient will be started on Protonix 40 mg daily and I will have her follow up in the office in 2 weeks. Recommend repeat colonoscopy in 3 years. If she has any problems prior to that, she should be reevaluated at that time. Job ID: [id number] DocumentID: [id number] Dictated Date: 11/01/2017 09:37:38 Grid Molder Date: 11/01/2017 14:57:59 Dictated By: DAVID GARCIA DO
== END 2017-11-01 10:18 | disposition home or self-care (01) ==
LOC: ENDO 07:53
PROVIDERS: ATTEND Surgery
DX: D12.2 Benign neoplasm of ascending colon (principal); K57.30 Diverticulosis of large intestine without perforation or abscess without bleeding; K29.70 Gastritis, unspecified, without bleeding; K21.0 Gastro-esophageal reflux disease with esophagitis; K92.1 Melena; K59.00 Constipation, unspecified; D50.9 Iron deficiency anemia, unspecified; I25.10 Atherosclerotic heart disease of native coronary artery without angina pectoris; I10 Essential (primary) hypertension; E11.9 Type 2 diabetes mellitus without complications; J45.909 Unspecified asthma, uncomplicated; R56.9 Unspecified convulsions; Z87.891 Personal history of nicotine dependence; Z79.82 Long term (current) use of aspirin; Z79.84 Long term (current) use of oral hypoglycemic drugs; Z79.899 Other long term (current) drug therapy
CPT/HCPCS: 88305; 88342

== ENCOUNTER 2017-11-06 18:05 | Day surgery (SDC) | payer MEDICARE, MEDICAID ==
[~2017-11-06] VITALS: Ht 175.3 cm; Wt 116.1 kg
[~2017-11-06 18:05] MED LIST changes: +PANT40TA2 PO
[2017-11-06] MEDS ORDERED: NS IV 1000 ML 1,000 ML IV ONE (19:39)
[2017-11-06] MEDS ORDERED: PANTOPRAZOLE 40 MG/10 ML (PROTONIX) VIAL IV STA (19:39)
[2017-11-06] MEDS ORDERED: ONDANSETRON 4 MG/2 ML (SDV) Z0FRAN IVP ONE ×2 (19:45→22:30)
[2017-11-06] MEDS ORDERED: fentaNYL INJECTION 100 MCG/2 ML AMP ONE (19:46)
[2017-11-06] MEDS ORDERED: fentaNYL INJECTION 100 MCG/2 ML AMP IVP STA ×3 (19:50→22:25)
[2017-11-06 19:54] LABS: BILIRUBIN,URINE NEGATIVE (NEGATIVE); CLARITY,URINE CLEAR; COLOR,URINE YELLOW; GLUCOSE, URINE (UA) 3+ (NEGATIVE); KETONES,URINE 1+ (NEGATIVE); LEUKOCYTE ESTERASE ,URINE 1+ (NEGATIVE); NITRITE,URINE NEGATIVE (NEGATIVE); PH,URINE 5 (5-9); PROTEIN,URINE 2+ (NEGATIVE); UROBILINOGEN,URINE NORMAL (NORMAL)
[2017-11-06 19:56] LABS: BASOPHILS % (AUTO) 0 % (0-10); EOSINOPHILS % (AUTO) 0 % (0-10); HEMATOCRIT 34 % (35-52); HEMOGLOBIN 10.4 G/DL (11.5-16.0); LYMPHOCYTES # (AUTO) 1.1 X 10^3 (1.0-4.0); LYMPHOCYTES % (AUTO) 9 % (12-44); MEAN CORPUSCULAR HEMOGLOBIN 24 PG (25-34); MEAN CORPUSCULAR HGB CONC 31 G/DL (32-36); MEAN CORPUSCULAR VOLUME 78 FL (80-99); MEAN PLATELET VOLUME 10.9 FL (7.4-10.4); MONOCYTES # (AUTO) 0.5 X 10^3 (0.0-1.0); MONOCYTES % (AUTO) 4 % (0-12); NEUTROPHILS # (AUTO) 11.5 X 10^3 (1.8-7.8); NEUTROPHILS % (AUTO) 87 % (42-75); PLATELET COUNT 302 10^3/uL (130-400); RED BLOOD COUNT 4.35 10^6/uL (4.35-5.85); RED CELL DISTRIBUTION WIDTH 23.6 % (10.0-14.5); WHITE BLOOD COUNT 13.2 10^3/uL (4.3-11.0)
[2017-11-06 20:01] LABS: SQUAMOUS EPITHELIAL CELL,UR 0-2 /HPF; URIC ACID CRYSTALS,URINE FEW /LPF; WBC,URINE 0-2 /HPF
--- NOTE | 2017-11-06 20:06 | ED Abdominal Pain ---
General Chief Complaint: Abdominal/GI Problems Stated Complaint: COLONOSCOPY TUESDAY THROWING UP NOW AND ABD PAIN Nursing Triage Note: Had [place]/EDG on Tuesday. 2 polyps removed and HH dx. started on protonix and iron C/O abd p[ain , worse today with vomiting Sepsis Screen: No Definite Risk Source of Information: Patient History of Present Illness Date Seen by Provider: November 06, 2017 Time Seen by Provider: 19:40 Initial Comments PT ARRIVES VIA POV FROM HOME C/O DIFFUSE UPPER ABDOMINAL PAIN SINCE TUESDAY C/O NAUSEA SINCE TUESDAY AND BEGAN VOMITING TODAY AND CANNOT KEEP ANYTHING DOWN-- TRIED TO EAT TODAY BUT THREW IT UP. HAS VOMITED AT LEAST 3-4 TIMES TODAY NO FEVER URINATES EVERY TIME SHE THROWS UP--DID HAVE UTI LAST MONTH BUT THOSE SYMPTOMS ARE GONE PT HAD EGD/COLONOSCOPY AND POLYPECTOMY BY DR. SMYTH ON Tuesday11/01/17 DX WITH HIATAL HERNIA AND COLON POLYP. STARTED ON PROTONIX PT HAS ONGOING ISSUES WITH ANEMIA --HGB 7.5--AND STOOLS ARE ALWAYS DARK, BUT IS ALSO ON IRON. IS SEEING DR. MARKS FOR ANEMIA WELL PT STATES HER STOOLS HAVE BEEN LOOSE SINCE SHE HAD PROCEDURE AND DID HAVE A BM TODAY. PT TOOK AM MEDICATIONS BUT HAS NOT TAKEN ANY MEDICATIONS SINCE THEN. PT HAS HYDROCODONE AT HOME, BUT HAS NOT TAKEN ANY PT IS DIABETIC, AND BLOOD SUGAR WAS > 200 THIS AM. HAS NOT CHECKED IT SINCE THEN PCP: [facility], BRITTANY ARAUJO Allergies and Home Medications Allergies Coded Allergies: Choline Fenofibrate (Unverified Allergy, Unknown, 11/06/17) Phenylpropanolamine HCl (Unverified Allergy, Unknown, 11/08/12) amoxicillin trihydrate (Unverified Allergy, Unknown, 11/08/12) brompheniramine maleate (Unverified Allergy, Unknown, 11/08/12) buspirone HCl (Unverified Allergy, Unknown, 11/08/12) celecoxib (Unverified Allergy, Unknown, 11/08/12) hydrochlorothiazide (Unverified Allergy, Unknown, 11/08/12) meloxicam (Unverified Allergy, Unknown, 05/12/14) niacin (Unverified Allergy, Unknown, 11/08/12) potassium clavulanate (Unverified Allergy, Unknown, 11/08/12) simvastatin (Unverified Allergy, Unknown, 05/12/14) spironolactone (Unverified Allergy, Unknown, 11/08/12) Uncoded Allergies: MIXLACAM (Allergy, Unknown, 05/12/14) Home Medications Albuterol Sulfate 1 Puff Puff, 2 PUFF IH Q4H PRN for SHORTNESS OF BREATH, ( Reported) 1 PUFF = 90 MCG Albuterol Sulfate 0.63 Mg/3 Ml Vial.neb, 0.63 MG IH PRN, (Reported) Amlodipine Besylate 10 Mg Tablet, 10 MG PO DAILY, (Reported) Aspirin 81 Mg Tab.chew, 81 MG PO DAILY, (Reported) Atorvastatin Calcium 40 Mg Tablet, 40 MG PO DAILY, (Reported) Baclofen 20 Mg Tablet, 20 MG PO BID, (Reported) Cetirizine HCl 10 Mg Tablet, 10 MG PO DAILY, (Reported) Ferrous Sulfate 325 Mg Tablet, 325 MG PO BID, (Reported) Fluticasone Propionate 9.9 Ml [place].susp, 1 SPRAY NS DAILY, (Reported) 1 SPRAY EACH NARE DAILY Furosemide 20 Mg Tablet, 20 MG PO DAILY PRN for SWELLING, (Reported) Glipizide 10 Mg Tablet, 20 MG PO BID, (Reported) Hydrocodone/Acetaminophen 1 Each Tablet, 1 EACH PO TID, (Reported) Hyoscyamine Sulfate 0.125 Mg Tab.subl, 1-2 TAB SL Q4H Prescribed by: ARTIE NELSON on 11/06/172208 Liraglutide 0.6 Mg/0.1 Ml Pen.injctr, 0.6 MG SQ DAILY, (Reported) Losartan Potassium 50 Mg Tablet, 50 MG PO DAILY, (Reported) Metformin HCl 1,000 Mg Tablet, 1,000 MG PO BID, (Reported) Montelukast Sodium 10 Mg Tablet, 10 MG PO DAILY, (Reported) Ondansetron 4 Mg Tab.rapdis, 4 MG PO Q4H Prescribed by: ARTIE NELSON on 11/06/172207 Pantoprazole Sodium 40 Mg Tablet.dr, 40 MG PO DAILY Prescribed by: DAVID SMYTH on 11/01/17 0930 Potassium Chloride 10 Meq Tab.er.prt, 10 MEQ PO DAILY PRN for SWELLING, ( Reported) Patient Home Medication List Home Medication List Reviewed: Yes Review of Systems Constitutional: no symptoms reported Respiratory: No Symptoms Reported Cardiovascular: No Symptoms Reported Gastrointestinal: See HPI, Abdominal Pain; Denies Constipated, Denies Diarrhea ; Nausea, Poor Appetite, Poor Fluid Intake, Vomiting Genitourinary: No Symptoms Reported Musculoskeletal: no symptoms reported Skin: no symptoms reported Psychiatric/Neurological: No Symptoms Reported Endocrine: No Symptoms Reported Hematologic/Lymphatic: See HPI, Anemia Past Quvbwsx-Knmhbw-Eycefj Hx Patient Social History Alcohol Use: Denies Use Recreational Drug Use: No Smoking Status: Former Smoker Type Used: Cigarettes Former Smoker, Quit: October 25, 2006 Recent Foreign Travel: No Contact w/Someone Who Travel: No Recent Infectious Disease Expo: No Recent Hopitalizations: No Physical Abuse: No Sexual Abuse: No Mistreated: No Fear: No Immunizations Up To Date Date of Pneumonia Vaccine: Apr 10, 2011 Date of Influenza Vaccine: Apr 04, 2017 Seasonal Allergies Seasonal Allergies: Yes Past Medical History Surgeries: Yes (KNEE REPLACEMENT X3, SEVERAL KNEE SCOPES, D&C, WISDOM TEETH, EGD/COLONSOCPY 11/01/17-DR. 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 Sexually Transmitted Disease: No HIV/AIDS: No Genitourinary: Yes Bladder Infection Gastrointestinal: Yes (DIVERTICULI, ULCER A CHILD) Gastroesophageal Reflux, Diverticulosis, Polyps, Hiatal Hernia Musculoskeletal: Yes Degenerate Disk Disease, Scoliosis, Chronic Back Pain Endocrine: Yes (ON VICTOZA, ORAL MEDICATIONS) Diabetes, Non-Insulin dep Loss of Vision: Bilateral Hearing Impairment: Denies Cancer: No Psychosocial: No Nursing Suicide Risk Score: 0 Integumentary: No (ANEMIA) Blood Disorders: Yes Adverse Reaction/Blood Tranf: No (N/A) Physical Exam Vital Signs Vital Signs - First Documented 11/06/17 19:21 Temp 97.4 Pulse 97 Resp 18 B/P (MAP) 152/72 (98) Pulse Ox 97 Capillary Refill : Less Than 3 Seconds General Appearance: WD/WN, no apparent distress, other (LOOKS UNCOMFORTABLE) HEENT: PERRL/EOMI, pale conjunctivae (R), pale conjunctivae (L) Neck: normal inspection Respiratory: normal breath sounds, no respiratory distress, no accessory muscle use Cardiovascular: regular rate, rhythm, no edema, no murmur Gastrointestinal: no pulsatile mass, abnormal bowel sounds (ABSENT), distended ; No guarding, No rebound; tenderness (DIFFUSE UPPER ABDOMINAL TENDERNESS, MOST TENDER IN EPIGASTRIC AREA); No hernia, No mass Extremities: normal inspection, normal capillary refill Back: normal inspection, no CVA tenderness 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, no motor/sensory deficits, alert, normal mood/affect, oriented x 3 Skin: warm/dry, pallor Progress/Results/Core Measures Results/Orders Lab Results Laboratory Tests Test 11/06/17 19:20 11/06/17 19:47 Range/Units Urine Color YELLOW Urine Clarity CLEAR Urine pH 5 5-9 Urine Specific [place] 1.020 1.016-1.022 Urine Protein 2+ H NEGATIVE Urine Glucose (UA) 3+ H NEGATIVE Urine Ketones 1+ H NEGATIVE Urine Nitrite NEGATIVE NEGATIVE Urine Bilirubin NEGATIVE NEGATIVE Urine Urobilinogen NORMAL NORMAL MG/DL Urine Leukocyte Esterase 1+ H NEGATIVE Urine RBC (Auto) NEGATIVE NEGATIVE Urine RBC NONE /HPF Urine WBC 0-2 /HPF Urine Squamous Epithelial Cells 0-2 /HPF Urine Crystals PRESENT H /LPF Urine Uric Acid Crystals FEW H /LPF Urine Bacteria NONE /HPF Urine Casts NONE /LPF Urine Mucus NEGATIVE /LPF Urine Culture Indicated NO White Blood Count 13.2 H 4.3-11.0 10^3/uL Red Blood Count 4.35 4.35-5.85 10^6/uL Hemoglobin 10.4 L 11.5-16.0 G/DL Hematocrit 34 L 35-52 % Mean Corpuscular Volume 78 L 80-99 FL Mean Corpuscular Hemoglobin 24 L 25-34 PG Mean Corpuscular Hemoglobin Concent 31 L 32-36 G/DL Red Cell Distribution Width 23.6 H 10.0-14.5 % Platelet Count 302 130-400 10^3/uL Mean Platelet Volume 10.9 H 7.4-10.4 FL Neutrophils (%) (Auto) 87 H 42-75 % Lymphocytes (%) (Auto) 9 L 12-44 % Monocytes (%) (Auto) 4 0-12 % Eosinophils (%) (Auto) 0 0-10 % Basophils (%) (Auto) 0 0-10 % Neutrophils # (Auto) 11.5 H 1.8-7.8 X 10^3 Lymphocytes # (Auto) 1.1 1.0-4.0 X 10^3 Monocytes # (Auto) 0.5 0.0-1.0 X 10^3 Eosinophils # (Auto) 0.0 0.0-0.3 10^3/uL Basophils # (Auto) 0.0 0.0-0.1 10^3/uL Sodium Level 140 135-145 MMOL/L Potassium Level 4.8 3.6-5.0 MMOL/L Chloride Level 111 H 98-107 MMOL/L Carbon Dioxide Level 16 L 21-32 MMOL/L Anion Gap 13 5-14 MMOL/L Blood Urea Nitrogen 15 7-18 MG/DL Creatinine 1.10 0.60-1.30 MG/DL Estimat Glomerular Filtration Rate 50 BUN/Creatinine Ratio 14 Glucose Level 286 H 70-105 MG/DL Calcium Level 9.1 8.5-10.1 MG/DL Total Bilirubin 0.3 0.1-1.0 MG/DL Aspartate Amino Transf (AST/SGOT) 22 5-34 U/L Alanine Aminotransferase (ALT/SGPT) 26 0-55 U/L Alkaline Phosphatase 91 40-136 U/L Total Protein 7.3 6.4-8.2 GM/DL Albumin 4.3 3.2-4.5 GM/DL Amylase Level 55 25-125 U/L Lipase 28 8-78 U/L My Orders Orders - ARTIE NELSON DO Saline Lock/Iv-Start (11/06/17 19:39) Amylase (11/06/17 19:39) Cbc With Automated Diff (11/06/17 19:39) Comprehensive Metabolic Panel (11/06/17 19:39) Lipase (11/06/17 19:39) Ua Culture If Indicated (11/06/17 19:39) Ct Abdomen/Pelvis Wo (11/06/17 19:39) Abdomen, Flat & Upright/Decub (11/06/17 19:39) Ondansetron Injection (Zofran Injectio (11/06/17 19:45) Pantoprazole Injection (Protonix Injecti (11/06/17 19:39) Saline Lock/Iv-Start (11/06/17 19:39) Ns Iv 1000 Ml (Sodium Chloride 0.9%) (11/06/17 19:39) Fentanyl Injection (Sublimaze Injection (11/06/17 19:50) Fentanyl Injection (Sublimaze Injection (11/06/17 19:46) Fentanyl Injection (Sublimaze Injection (11/06/17 21:53) Fentanyl Injection (Sublimaze Injection (11/06/17 22:25) Ondansetron Injection (Zofran Injectio (11/06/17 22:30) Medications Given in ED Current Medications Medications Dose Ordered Sig/Angus Route Start Time Stop Time Status Last Admin Dose Admin Ondansetron HCl 4 mg ONCE ONCE IVP 11/06/17 19:45 11/06/17 19:46 DC 11/06/17 19:53 4 MG Ondansetron HCl 8 mg ONCE ONCE IVP 11/06/17 22:30 11/06/17 22:31 DC 11/06/17 22:31 8 MG Sodium Chloride 1,000 ml @ 0 mls/hr Q0M ONCE IV 11/06/17 19:39 11/06/17 19:42 DC 11/06/17 19:53 1,000 MLS/HR Vital Signs/I&O 11/06/17 19:21 Temp 97.4 Pulse 97 Resp 18 B/P (MAP) 152/72 (98) Pulse Ox 97 Blood Pressure Mean: 98 Progress Progress Note : Progress Note PAIN AND NAUSEA TEMPORARILY RELIEVED WITH MEDICATIONS BUT THEN WOULD RETURN PT GIVEN WATER AND ICE CHIPS, AND NO VOMITING, BUT HAD INCREASE IN PAIN AND NAUSEA PT STATES AT TIME OF ADMIT THAT SHE HAS BEEN HAVING INTERMITTENT RIGHT FLANK/ POSTERIOR RIB PAIN UNDER RIGHT SHOULDER BLADE OFF AND ON FOR A COUPLE OF MONTHS. HAD BEEN GIVEN RX FOR BACLOFEN FOR POSSIBLE MUSCLE SPASMS, WITHOUT RELIEF OF PAIN Diagnostic Imaging Comments ABDOMEN XRAYS--MILD CONSTIPATION, OTHERWISE NO ACUTE PROCESS CT ABDOMEN/PELVIS--CHOLELITHIASIS, MILD CONSTIPATION, NO OBSTRUCTION OR ACUTE PROCESS, MILD CARDIOMEGALY AND SMALL PERICARDIAL EFFUSION. PER RADIOLOGIST REPORTS @ 2025 Reviewed: Reviewed by Me Departure Communication (Admissions) [id number]--SPOKE WITH DR. JASON HERE IN ER. ACCEPTS PT FOR ADMIT. Impression Primary Impression: Cholelithiasis Additional Impressions: Intractable abdominal pain Intractable nausea and vomiting Disposition: ADMITTED INPATIENT Condition: Stable Admissions Decision to Admit Reason: Admit from ER (General) Decision to Admit/Date: November 06, 2017 Time/Decision to Admit Time: 22:30 Departure-Patient Inst. Referrals: BOOGIE ARAUJO (PCP) Primary Care Physician DAVID SMYTH DO Add. Discharge Instructions: All discharge instructions reviewed with patient and/or family. Voiced understanding. ARTIE NELSON DO November 06, 2017 20:06
[2017-11-06 20:15] LABS: ALBUMIN 4.3 GM/DL (3.2-4.5); BILIRUBIN,TOTAL 0.3 MG/DL (0.1-1.0); CALCIUM 9.1 MG/DL (8.5-10.1); CREATININE SERUM 1.1 MG/DL (0.60-1.30); POTASSIUM 4.8 MMOL/L (3.6-5.0); TOTAL PROTEIN 7.3 GM/DL (6.4-8.2)
--- NOTE | 2017-11-06 20:21 | Diagnostic Imaging Report ---
PROCEDURE: CT abdomen and pelvis without contrast. TECHNIQUE: Multiple contiguous axial images were obtained through the abdomen and pelvis without the use of intravenous contrast. INDICATION: Abdominal pain, nausea, vomiting. COMPARISON: None. FINDINGS: The lung bases are clear. There is cardiac enlargement with small pericardial effusion. The solid organs are grossly unremarkable. There is cholelithiasis without cholecystitis. Mild atherosclerosis of the abdominal aorta is seen without aneurysm. There is mild constipation throughout the colon without obstruction. The small bowel is normal. Distal ureters and urinary bladder are grossly normal. There is no abscess. The uterus is surgically absent. Osseous structures are age-appropriate. IMPRESSION: 1. Cholelithiasis without cholecystitis. 2. Mild colonic constipation without obstruction. 3. Atherosclerosis of the abdominal aorta without aneurysm. Dictated by: Dictated on workstation # [id number]
--- NOTE | 2017-11-06 20:22 | Diagnostic Imaging Report ---
INDICATION: Abdominal pain, nausea. COMPARISON: None. EXAMINATION: KUB and upright views of the abdomen were obtained. FINDINGS: Nondistended bowel gas pattern. Nonspecific gas-filled loops of small bowel are seen, centrally. There is mild constipation. There is no free air. IMPRESSION: Mild constipation. Dictated by: Dictated on workstation # [id number]
[2017-11-06] MEDS ORDERED: ONDA4TAB8 PO (22:08)
[2017-11-06] MEDS ORDERED: HYOS0.1283 SL (22:09)
[2017-11-07] VITALS (9 sets, daily range): BP systolic 117–160; BP diastolic 56–77
[2017-11-07] MEDS ORDERED: HYOSCYAMINE 0.125 MG (LEVSIN) TAB PO PRN (00:30)
[2017-11-07] MEDS: D5 1/2 NS 1000 ML IV SOLUTION 1,000 ML IV SCH ×2 (00:33→07:17)
[2017-11-07] MEDS: fentaNYL INJECTION 100 MCG/2 ML AMP IV PRN ×3 (02:22→12:54)
[2017-11-07] MEDS: ONDANSETRON 4 MG/2 ML (SDV) Z0FRAN IV PRN ×3 (02:23→12:53)
[2017-11-07 07:24] LABS: BASOPHILS % (AUTO) 0 % (0-10); EOSINOPHILS % (AUTO) 0 % (0-10); HEMATOCRIT 31 % (35-52); HEMOGLOBIN 9.5 G/DL (11.5-16.0); LYMPHOCYTES # (AUTO) 1.2 X 10^3 (1.0-4.0); LYMPHOCYTES % (AUTO) 12 % (12-44); MEAN CORPUSCULAR HEMOGLOBIN 24 PG (25-34); MEAN CORPUSCULAR HGB CONC 30 G/DL (32-36); MEAN CORPUSCULAR VOLUME 79 FL (80-99); MEAN PLATELET VOLUME 10.6 FL (7.4-10.4); MONOCYTES # (AUTO) 0.5 X 10^3 (0.0-1.0); MONOCYTES % (AUTO) 5 % (0-12); NEUTROPHILS # (AUTO) 8.7 X 10^3 (1.8-7.8); NEUTROPHILS % (AUTO) 83 % (42-75); PLATELET COUNT 286 10^3/uL (130-400); RED BLOOD COUNT 3.96 10^6/uL (4.35-5.85); RED CELL DISTRIBUTION WIDTH 22.8 % (10.0-14.5); WHITE BLOOD COUNT 10.4 10^3/uL (4.3-11.0)
[2017-11-07] MEDS: PANTOPRAZOLE 40 MG/10 ML (PROTONIX) VIAL IV SCH (07:45)
[2017-11-07 07:46] LABS: ALBUMIN 3.7 GM/DL (3.2-4.5); BILIRUBIN,TOTAL 0.3 MG/DL (0.1-1.0); CALCIUM 8.5 MG/DL (8.5-10.1); POTASSIUM 4.7 MMOL/L (3.6-5.0)
[2017-11-07] MEDS ORDERED: METF500T8 PO (10:05)
[2017-11-07] MEDS ORDERED: ASPI-983 PO (10:05)
[2017-11-07] MEDS ORDERED: ALBU18HF2 INH (10:05)
[2017-11-07] MEDS ORDERED: PANT40TA2 PO (10:05)
[2017-11-07] MEDS ORDERED: LIRA0.6P3 SC (10:05)
[2017-11-07] MEDS ORDERED: ALBU2.5V4 NEB (10:05)
[2017-11-07] MEDS ORDERED: FLUT16SP22 NS (10:05)
[2017-11-07] MEDS ORDERED: LIDOCAINE PF 2% 5 ML (XYLOCAINE) VIAL ONE (14:56)
[2017-11-07] MEDS ORDERED: LACTATED RINGERS 1,000 ML IV ONE (14:56)
[2017-11-07] MEDS ORDERED: ROCURONIUM 10 MG/ML 5 ML SYRINGE IV ONE (14:56)
[2017-11-07] MEDS ORDERED: proPOfol 200 MG/20 ML (DIPRIVAN) VIAL IV ONE (14:56)
[2017-11-07] MEDS ORDERED: SEVOFLURANE (ULTANE) 15 ML INHAL SOLN ONE ×4 (14:56→16:53)
[2017-11-07] MEDS ORDERED: fentaNYL INJECTION 100 MCG/2 ML AMP ONE (14:57)
[2017-11-07] MEDS ORDERED: MIDAZOLAM 2 MG/2 ML (VERSED) VIAL ONE (14:57)
[2017-11-07] MEDS ORDERED: ONDANSETRON 4 MG/2 ML (SDV) Z0FRAN ONE (14:58)
--- NOTE | 2017-11-07 15:22 | History & Physical-Surgical ---
History of Present Illness History of Present Illness Reason for visit/HPI Chief complaint right upper quadrant abdominal pain nausea and vomiting. Patient is 67-year-old female who presented to the emergency department yesterday with right upper quadrant abdominal pain nausea and vomiting that she' s had for approximately 3 days. The pain is been on and off. Sharp in nature. She states that it moves around towards her back. She's been complaining of occasional back pain on and off for about 3-4 months she states. Yesterday she began having nausea and vomiting though and everything continued to seen to be slightly worse. Patient states the pain she never really seems to think anything makes it worse. Nothing really seems to make it better at this time. She had a CT scan that I reviewed which demonstrating cholelithiasis with larger stones no evidence of cholecystitis. No other abnormalities except for some slight constipation. Patient states that she's doing better today but she did receive some pain medication. Her pain previous is moderate to severe. Patient denies any fever sweats chills shortness of breath or chest pain at this time. Date of Admission November 06, 2017 at 22:30 Date Seen by Provider: November 07, 2017 Time Seen by Provider: 15:19 I consulted on this patient on 11/07/17 15:17 Attending Physician Louann Adkins MD Admitting Physician Rian Shepherd Consult Allergies and Home Medications Allergies Coded Allergies: Choline Fenofibrate (Unverified Allergy, Unknown, 11/06/17) Phenylpropanolamine HCl (Unverified Allergy, Unknown, 11/08/12) amoxicillin trihydrate (Unverified Allergy, Unknown, 11/08/12) brompheniramine maleate (Unverified Allergy, Unknown, 11/08/12) buspirone HCl (Unverified Allergy, Unknown, 11/08/12) celecoxib (Unverified Allergy, Unknown, 11/08/12) hydrochlorothiazide (Unverified Allergy, Unknown, 11/08/12) meloxicam (Unverified Allergy, Unknown, 05/12/14) niacin (Unverified Allergy, Unknown, 11/08/12) potassium clavulanate (Unverified Allergy, Unknown, 11/08/12) simvastatin (Unverified Allergy, Unknown, 05/12/14) spironolactone (Unverified Allergy, Unknown, 11/08/12) Uncoded Allergies: MIXLACAM (Allergy, Unknown, 05/12/14) Home Medications Albuterol Sulfate 18 Gm Hfa.aer.ad, 2 PUFF INH Q6H PRN for SHORTNESS OF BREATH, (Reported) Albuterol Sulfate 2.5 Mg/3 Ml Vial.neb, 2.5 MG NEB Q6H PRN for SHORTNESS OF BREATH, (Reported) Amlodipine Besylate 10 Mg Tablet, 10 MG PO HS, (Reported) Aspirin 81 Mg Tablet.dr, 81 MG PO DAILY, (Reported) Atorvastatin Calcium 40 Mg Tablet, 40 MG PO HS, (Reported) Baclofen 20 Mg Tablet, 20 MG PO BID, (Reported) Cetirizine HCl 10 Mg Tablet, 10 MG PO DAILY, (Reported) Ferrous Sulfate 325 Mg Tablet, 325 MG PO BID, (Reported) Fluticasone Propionate 16 Gm [place].susp, 2 SPRAY NS BID, (Reported) Furosemide 20 Mg Tablet, 20 MG PO DAILY PRN for SWELLING, (Reported) Glipizide 10 Mg Tablet, 20 MG PO BID, (Reported) TAKES 2 (10MG) TABLETS Hydrocodone/Acetaminophen 1 Each Tablet, 1 TAB PO TID PRN for PAIN-MODERATE, ( Reported) Liraglutide 0.6 Mg/0.1 Ml Pen.injctr, 1.2 MG SC DAILY, (Reported) Losartan Potassium 50 Mg Tablet, 50 MG PO DAILY, (Reported) Metformin HCl 500 Mg Tab.er.24h, 1,000 MG PO BID, (Reported) TAKES 2 (500MG) TABLETS Montelukast Sodium 10 Mg Tablet, 10 MG PO HS, (Reported) Pantoprazole Sodium 40 Mg Tablet.dr, 40 MG PO DAILY, (Reported) Potassium Chloride 10 Meq Tab.er.prt, 10 MEQ PO DAILY PRN for WHEN TAKING FUROSEMIDE, (Reported) Patient Home Medication List Home Medication List Reviewed: Yes Past [id number] Hx Patient Social History Alcohol Use: Denies Use Recreational Drug Use: No (quit 2 yrs ago) Drug of Choice: pot Smoking Status: Former Smoker Former Smoker, Quit: October 25, 2006 Type Used: Cigarettes Recent Foreign Travel: No Contact w/Someone Who Travel: No Recent Infectious Disease Expo: No Recent Hopitalizations: Yes (11/01/17 EGD/Colonscopy) Physical Abuse Screen: No Sexual Abuse: No Immunizations Up To Date Date of Pneumonia Vaccine: Apr 10, 2011 Date of Influenza Vaccine: Apr 04, 2017 Seasonal Allergies Seasonal Allergies: Yes Surgeries History of Surgeries: Yes Surgeries: Hysterectomy, Orthopedic, Tonsillectomy Respiratory History of Respiratory Disorde: Yes (HX PNEUMONIA AND ALOT OF CONGESTION FROM ALLERGIES) Respiratory Disorders: Asthma, Pneumonia, Sleep Apnea, COPD Cardiovascular History of Cardiac Disorders: Yes (LEAKY VALVE, ONE DOESN'T CLOSE RIGHT AND ENLARGE LEFT VENTRICLE) Cardiac Disorders: Coronary Artery Disease, Hypertension, Irregular Heartbeat Neurological History of Neurological Disord: Yes (2016) Neurological Disorders: Seizure Disorder 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 System Hx 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 Disorders: No Sexually Transmitted Disease: No HIV/AIDS: No 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 Disorders: Denies [employer] History: Hysterectomy Genitourinary History of Genitourinary Disor: Yes Genitourinary Disorders: Bladder Infection, UTI-Chronic Gastrointestinal History of Gastrointestinal Di: Yes (DIVERTICULI, ULCER A CHILD) Gastrointestinal Disorders: Gastroesophageal Reflux, Diverticulosis, Polyps, Hiatal Hernia Musculoskeletal History of Musculoskeletal Dis: Yes Musculoskeletal Disorders: Degenerate Disk Disease, Arthritis, Scoliosis, Chronic Back Pain Endocrine History of Endocrine Disorders: Yes (ON VICTOZA, ORAL MEDICATIONS) Endocrine Disorders: Diabetes, Non-Insulin dep HEENT Loss of Vision: Bilateral Hearing Impairment: Denies Cancer History of Cancer: No Psychosocial History of Psychiatric Problem: No Behavioral Health Disorders: Depression Integumentary History of Skin or Integumenta: No Blood Transfusions History of Blood Disorders: Yes Adverse Reaction to a Blood Tr: No (N/A) Family Medical History Significant Family History: No Pertinent Family Hx Constitutional: no symptoms reported EENTM: no symptoms reported Respiratory: no symptoms reported Cardiovascular: no symptoms reported Gastrointestinal: see HPI Genitourinary: no symptoms reported Musculoskeletal: see HPI, back pain Skin: no symptoms reported Psychiatric/Neurological: No Symptoms Reported Physical Exam Vital Signs Vital Signs - First Documented 11/06/17 11/06/17 11/07/17 19:21 23:15 04:16 Temp 97.4 Pulse 97 Resp 18 B/P (MAP) 152/72 (98) Pulse Ox 97 O2 Delivery Room Air O2 Flow Rate 2.00 Capillary Refill : Less Than 3 Seconds General Appearance: No Apparent Distress HEENT: Normal ENT Inspection Neck: Normal Inspection Respiratory: No Accessory Muscle Use, No Respiratory Distress Cardiovascular: Regular Rate, Rhythm Gastrointestinal: Tenderness (Right upper quadrant no guarding or rebounding) Rectal: Deferred Back: No CVA Tenderness Extremity: Normal Inspection, Non Tender Neurologic/Psychiatric: Alert, Oriented x3, No Motor/Sensory Deficits, Normal Mood/Affect, 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 Norm as Tested Skin: Normal Color, Warm/Dry Lymphatic: No Adenopathy Data Review Labs Laboratory Tests 11/06/17 19:20: Urine Color YELLOW, Urine Clarity CLEAR, Urine pH 5, Urine Specific Jackson 1.020, Urine Protein 2+H, Urine Glucose (UA) 3+H, Urine Ketones 1+H, Urine Nitrite NEGATIVE, Urine Bilirubin NEGATIVE, Urine Urobilinogen NORMAL, Urine Leukocyte Esterase 1+H, Urine RBC (Auto) NEGATIVE, Urine RBC NONE, Urine WBC 0-2 , Urine Squamous Epithelial Cells 0-2, Urine Crystals PRESENTH, Urine Uric Acid Crystals FEWH, Urine Bacteria NONE, Urine Casts NONE, Urine Mucus NEGATIVE, Urine Culture Indicated NO 11/06/17 19:47: White Blood Count 13.2H, Red Blood Count 4.35, Hemoglobin 10.4L, Hematocrit 34L , Mean Corpuscular Volume 78L, Mean Corpuscular Hemoglobin 24L, Mean Corpuscular Hemoglobin Concent 31L, Red Cell Distribution Width 23.6H, Platelet Count 302, Mean Platelet Volume 10.9H, Neutrophils (%) (Auto) 87H, Lymphocytes ( %) (Auto) 9L, Monocytes (%) (Auto) 4, Eosinophils (%) (Auto) 0, Basophils (%) ( Auto) 0, Neutrophils # (Auto) 11.5H, Lymphocytes # (Auto) 1.1, Monocytes # (Auto ) 0.5, Eosinophils # (Auto) 0.0, Basophils # (Auto) 0.0, Sodium Level 140, Potassium Level 4.8, Chloride Level 111H, Carbon Dioxide Level 16L, Anion Gap 13 , Blood Urea Nitrogen 15, Creatinine 1.10, Estimat Glomerular Filtration Rate 50 , BUN/Creatinine Ratio 14, Glucose Level 286H, Calcium Level 9.1, Total Bilirubin 0.3, Aspartate Amino Transf (AST/SGOT) 22, Alanine Aminotransferase ( ALT/SGPT) 26, Alkaline Phosphatase 91, Total Protein 7.3, Albumin 4.3, Amylase Level 55, Lipase 28 11/07/17 06:55: White Blood Count 10.4, Red Blood Count 3.96L, Hemoglobin 9.5L, Hematocrit 31L, Mean Corpuscular Volume 79L, Mean Corpuscular Hemoglobin 24L, Mean Corpuscular Hemoglobin Concent 30L, Red Cell Distribution Width 22.8H, Platelet Count 286, Mean Platelet Volume 10.6H, Neutrophils (%) (Auto) 83H, Lymphocytes (%) (Auto) 12, Monocytes (%) (Auto) 5, Eosinophils (%) (Auto) 0, Basophils (%) (Auto) 0, Neutrophils # (Auto) 8.7H, Lymphocytes # (Auto) 1.2, Monocytes # (Auto) 0.5, Eosinophils # (Auto) 0.0, Basophils # (Auto) 0.0, Sodium Level 138, Potassium Level 4.7, Chloride Level 110H, Carbon Dioxide Level 19L, Anion Gap 9, Blood Urea Nitrogen 13, Creatinine 1.00, Estimat Glomerular Filtration Rate 56, BUN/ Creatinine Ratio 13, Glucose Level 269H, Calcium Level 8.5, Total Bilirubin 0.3 , Aspartate Amino Transf (AST/SGOT) 15, Alanine Aminotransferase (ALT/SGPT) 18, Alkaline Phosphatase 72, Total Protein 6.0L, Albumin 3.7, Amylase Level 36, Lipase 17 Assessment/Plan Assessment/Plan Admission Diagonsis Cholelithiasis, right upper quadrant abdominal pain, intractable nausea and vomiting Admission Status: Observation Assessment/Plan Cholelithiasis, right upper quadrant abdominal pain, intractable nausea and vomiting Patient with cholelithiasis and right upper quadrant abdominal pain with intractable nausea and vomiting. She is doing a little bit better today. Due to the larger gallstones and no other findings this is probably related to her larger gallstones. She understands risk and benefits of laparoscopic cholecystectomy with intraoperative cholangiogram all other indicated procedures. She understands risk and benefits and wishes to proceed. Patient to go to or today for laparoscopic cholecystectomy. Clinical Quality Measures DVT/VTE Risk/Contraindication: Risk Factor Score Per Nursin RFS Level Per Nursing on Admit: 3=High DAVID SMYTH DO November 07, 2017 15:22
[2017-11-07] MEDS ORDERED: BUPIVACAINE 0.5% 30 ML (SENSORCAINE) VIAL ONE (15:27)
[2017-11-07] MEDS ORDERED: LIDOCAINE 1% INJ 20 ML 20 ML VIAL ONE (15:27)
[2017-11-07] MEDS ORDERED: ceFAZolin 2 GM IV Premixed 50 ML IV ONE (15:30)
[2017-11-07] MEDS ORDERED: ceFAZolin 1,000 MG (ANCEF) VIAL ONE (16:08)
[2017-11-07] MEDS ORDERED: LACTATED RINGERS 1,000 ML IV PRN (16:19)
[2017-11-07] MEDS ORDERED: morphine INJ 10 MG/ML 1ML (SYR OR VIAL) ONE (16:41)
--- OUTSIDE RECORDS SUMMARY | 2017-11-07 16:45 | XMS REPORT | Continuity of Care Document ---
Author Author [facility] Address Unknown Phone Unavailable Allergies Active Description [...] tablet Drug Allergy 09/12/2012 Yes amoxicillin trihydrate [id number] Drug Allergy Unknown N/A 11/08/2012 Yes brompheniramine maleate [id number] Drug Allergy Unknown N/A 11/08/2012 Yes buspirone HCl [id number] Drug Allergy Unknown N/A 11/08/2012 Yes celecoxib [id number] Drug Allergy Unknown N/A 11/08/2012 Yes Choline Fenofibrate [id number] Drug Allergy Unknown N/A 11/08/2012 Yes hydrochlorothiazide [id number] Drug Allergy Unknown N/A 11/08/2012 Yes niacin [id number] Drug Allergy Unknown N/A 11/08/2012 Yes Phenylpropanolamine HCl [id number] Drug Allergy Unknown N/A 11/08/2012 Yes potassium clavulanate [id number] Drug Allergy Unknown N/A 11/08/2012 Yes spironolactone [id number] Drug Allergy Unknown N/A 11/08/2012 Yes meloxicam [id number] Drug Allergy Unknown N/A 05/12/2014 Yes MIXLACAM MIXLACAM Unknown N/A 05/12/2014 Yes simvastatin [id number] Drug Allergy Unknown N/A 05/12/2014 Medications There is no data. Problems Date Dx Coded Attending Type Code Diagnosis Diagnosed By 01/11/2008 BOOGIE ARAUJO APRN 780.79 lethargy 01/11/2008 780.79 lethargy 01/11/2008 780.79 Lethargy 01/11/2008 780.79 Lethargy 01/11/2008 780.79 Lethargy 01/11/2008 780.79 Lethargy 01/11/2008 [facility], KENN Margarita 780.79 Lethargy 01/11/2008 BOOGIE ARAUJO APRN 780.79 Lethargy 01/11/2008 DARRIUS HI DO 780.79 Lethargy 01/11/2008 BOOGIE ARAUJO APRN 780.79 Lethargy 01/11/2008 LAURA HIKNLE MD 780.79 Lethargy 01/11/2008 LAURA HINKLE MD [...] BOOGIE ARAUJO APRN 780.79 Lethargy 01/11/2008 RO [facility], KENN R 780.79 lethargy 01/23/2008 BOOGIE ARAUJO [...] MULTI-VESSEL 01/23/2008 719.46 Patellofemoral Syndrome Right 01/23/2008 [facility], KENN R 250.02 Diabetes Mellitus Poorly Controlled 01/23/2008 [facility], KENN R 414.01 CORONARY ARTERY STENOSIS MULTI-VESSEL 01/23/2008 [facility], KENN R 719.46 Patellofemoral Syndrome [...] APRN 719.46 Patellofemoral Syndrome Right 01/23/2008 [employer] LANGUAGE PATHOLOGIST, TAYLOR A 250.02 Diabetes Mellitus Poorly Controlled 01/23/2008 B[employer] P[employer]IC SPEECH LANGUAGE PATHOLOGIST, TAYLOR A 414.01 CORONARY ARTERY STENOSIS MULTI-VESSEL 01/23/2008 BAM P[employer]IATRIC SPEECH LANGUAGE PATHOLOGIST, TAYLOR A 719.46 Patellofemoral Syndrome Right 01/23/2008 BAM P[employer]IATRIC SPEECH LANGUAGE PATHOLOGIST, TAYLOR A 250.02 Diabetes Mellitus Poorly Controlled 01/23/2008 BAM P[employer]IATRIC SPEECH LANGUAGE PATHOLOGIST, TAYLOR A 414.01 CORONARY ARTERY STENOSIS MULTI-VESSEL 01/23/2008 BAM P[employer]IATRIC SPEECH LANGUAGE PATHOLOGIST, TAYLOR A 719.46 Patellofemoral Syndrome Right 01/23/2008 [...] ARAUJO APRN 719.46 Patellofemoral Syndrome Right [facility]/23/[facility] 250.02 Diabetes Mellitus Poorly Controlled [facility]/23/[facility] 414.01 CORONARY ARTERY STENOSIS MULTI-VESSEL 01/23/2008 [facility], KENN R 719.46 PATELLOFEMORAL SYNDROME RIGHT 02/02/2008 BOOGIE ARAUJO APRN 465.9 ECHO VIRUS UPPER RESPIRATORY 02/02/2008 465.9 ECHO VIRUS UPPER RESPIRATORY 02/02/2008 465.9 Echo Virus Upper Respiratory 02/02/2008 465.9 Echo Virus Upper Respiratory 02/02/2008 465.9 Echo Virus Upper Respiratory 02/02/2008 465.9 Echo Virus Upper Respiratory 02/02/2008 [facility], KENN R 465.9 Echo Virus Upper Respiratory 02/02/2008 GAYLE REIDN, BOOGIE T 465.9 Echo Virus Upper Respiratory 02/02/2008 DARRIUS HI DO 465.9 Echo Virus Upper Respiratory 02/02/2008 GAYLE P[employer]IAT[employer]IC SPEECH LANGUAGE PATHOLOGIST, BOOGIE T 465.9 Echo Virus Upper Respiratory 02/02/2008 LAURA HINKLE MD 465.9 Echo Virus Upper Respiratory 02/02/2008 LAURA HINKLE MD 465.9 Echo Virus Upper Respiratory 02/02/2008 GAYLE P[employer]AT[employer]IC SPEECH LANGUAGE PATHOLOGIST, BOOGIE T 465.9 Echo Virus Upper Respiratory 02/02/2008 GAYLE REIDN, BOOGIE T 465.9 Echo Virus Upper Respiratory 02/02/2008 GAYLE REIDN, BOOGIE T 465.9 Echo Virus Upper Respiratory 02/02/2008 GAYLE PEDIATRIC SPEECH LANGUAGE PATHOLOGIST, BOOGIE T 465.9 Echo Virus Upper Respiratory 02/02/2008 LAURA HINKLE MD 465.9 Echo Virus Upper Respiratory 02/02/2008 GAYLE REIDN, BOOGIE T 465.9 Echo Virus Upper Respiratory 02/02/2008 GAYLE P[employer]IATRIC SPEECH LANGUAGE PATHOLOGIST, BOOGIE T 465.9 Echo Virus Upper Respiratory 02/02/2008 GAYLE PEDIATRIC SPEECH LANGUAGE PATHOLOGIST, BOOGIE T 465.9 Echo Virus Upper Respiratory 02/02/2008 GAYLE PEDIATRIC SPEECH LANGUAGE PATHOLOGIST, BOOGIE T 465.9 Echo Virus Upper Respiratory 02/02/2008 GAYLE PEDIATRIC SPEECH LANGUAGE PATHOLOGIST, BOOGIE T 465.9 Echo Virus Upper Respiratory 02/02/2008 GAYLE PEDIATRIC SPEECH LANGUAGE PATHOLOGIST, BOOGIE T 465.9 Echo Virus Upper Respiratory 02/02/2008 GAYLE REIDN, BOOGIE T 465.9 Echo Virus Upper Respiratory 02/02/2008 GAYLE REIDN, BOOGIE T 465.9 Echo Virus Upper Respiratory 02/02/2008 BAM P[employer]IAT[employer]IC SPEECH LANGUAGE PATHOLOGIST, TAYLOR A 465.9 Echo Virus Upper Respiratory 02/02/2008 BAM PEDIATRIC SPEECH LANGUAGE PATHOLOGIST, TAYLOR A 465.9 Echo Virus Upper Respiratory 02/02/2008 BAM PEDIATRIC SPEECH LANGUAGE PATHOLOGIST, TAYLOR A 465.9 Echo Virus Upper Respiratory 02/02/2008 GAYLE REIDN, BOOGIE T 465.9 Echo Virus Upper Respiratory 02/02/2008 GAYLE REIDN, BOOGIE T 465.9 Echo Virus Upper Respiratory 02/02/2008 GAYLE REIDN, BOOGIE T 465.9 Echo Virus Upper Respiratory 02/02/2008 [facility], KENN R 465.9 ECHO VIRUS [...] UNSPECIFIED 02/09/2008 401.1 ESSENTIAL HYPERTENSION BENIGN 02/09/2008 [facility], KENN R 272.1 HYPERTRIGLYCERIDEMIA 02/09/2008 [facility], KENN R 272.4 HYPERLIPIDEMIA UNSPECIFIED 02/09/2008 [facility] 401.1 ESSENTIAL HYPERTENSION BENIGN [...] MD 401.1 ESSENTIAL HYPERTENSION BENIGN 02/09/2008 [facility] P[employer] SPE[employer] LANGUAGE PATHOLOGIST, BOOGIE T 272.1 HYPERTRIGLYCERIDEMIA 02/09/2008 GAYLE PEDIATRIC SPEECH LANGUAGE PATHOLOGISTBOOGIE T 272.4 HYPERLIPIDEMIA UNSPECIFIED 02/09/2008 GAYLE PEDIATRIC SPEECH LANGUAGE PATHOLOGIST, BOOGIE T 401.1 ESSENTIAL HYPERTENSION BENIGN 02/09/2008 GAYLE PEDIATRIC SPEECH LANGUAGE PATHOLOGIST, BOOGIE T 272.1 HYPERTRIGLYCERIDEMIA 02/09/2008 GAYLE PEDIATRIC SPEECH LANGUAGE PATHOLOGIST, BOOGIE T 272.4 HYPERLIPIDEMIA UNSPECIFIED 02/09/2008 GAYLE PEDIATRIC SPEECH LANGUAGE PATHOLOGIST BOOGIE T 401.1 ESSENTIAL HYPERTENSION BENIGN 02/09/2008 GAYLE REIDN BOOGIE T 272.1 HYPERTRIGLYCERIDEMIA 02/09/2008 GAYLE P[employer]IATRIC SPEECH LANGUAGE PATHOLOGIST, BOOGIE T 272.4 HYPERLIPIDEMIA UNSPECIFIED 02/09/2008 GAYLE PEDIATRIC SPEECH LANGUAGE PATHOLOGIST, BOOGIE T 401.1 ESSENTIAL HYPERTENSION BENIGN 02/09/2008 BOOGIE ARAUJO APRN T 272.1 HYPERTRIGLYCERIDEMIA 02/09/2008 BOOGIE ARUAJO APRN T 272.4 HYPERLIPIDEMIA UNSPECIFIED 02/09/2008 BOOGIE [...] BOOGIE T 272.4 HYPERLIPIDEMIA UNSPECIFIED 02/09/2008 GAYLE PEDIATRIC SPEECH LANGUAGE PATHOLOGIST BOOGIE T 401.1 ESSENTIAL HYPERTENSION BENIGN 02/09/2008 BOOGIE ARAUJO APRN T 272.1 HYPERTRIGLYCERIDEMIA 02/09/2008 BOOGIE ARAUJO APRN T 272.4 HYPERLIPIDEMIA UNSPECIFIED 02/09/2008 GAYLE DANIEL BOOGIE T 401.1 ESSENTIAL HYPERTENSION BENIGN 02/09/2008 GAYLE DANIEL BOOGIE T 272.1 HYPERTRIGLYCERIDEMIA 02/09/2008 BOOGIE ARAUJO APRN T 272.4 HYPERLIPIDEMIA UNSPECIFIED 02/09/2008 GAYLE PEDIATRIC SPEECH LANGUAGE PATHOLOGIST, BOOGIE T 401.1 ESSENTIAL HYPERTENSION BENIGN 02/09/2008 GAYLE PEDIATRIC SPEECH LANGUAGE PATHOLOGIST, BOOGIE T 272.1 HYPERTRIGLYCERIDEMIA 02/09/2008 GAYLE PEDIATRIC SPEECH LANGUAGE PATHOLOGIST, BOOGIE T 272.4 HYPERLIPIDEMIA UNSPECIFIED 02/09/2008 GAYLE PEDIATRIC SPEECH LANGUAGE PATHOLOGIST, BOOGIE T 401.1 ESSENTIAL HYPERTENSION BENIGN 02/09/2008 GAYLE PEDIATRIC SPEECH LANGUAGE PATHOLOGIST, BOOGIE T 272.1 HYPERTRIGLYCERIDEMIA 02/09/2008 GAYLE PEDIATRIC SPEECH LANGUAGE PATHOLOGIST, BOOGIE T 272.4 HYPERLIPIDEMIA UNSPECIFIED 02/09/2008 GAYLE PEDIATRIC SPEECH LANGUAGE PATHOLOGIST, BOOGIE T 401.1 ESSENTIAL HYPERTENSION BENIGN 02/09/2008 GAYLE REIDN, BOOGIE T 272.1 HYPERTRIGLYCERIDEMIA 02/09/2008 GAYLE PEDIATRIC SPEECH LANGUAGE PATHOLOGIST, BOOGIE T 272.4 HYPERLIPIDEMIA UNSPECIFIED 02/09/2008 GAYLE PEDIATRIC SPEECH LANGUAGE PATHOLOGIST, BOOGIE T 401.1 ESSENTIAL HYPERTENSION BENIGN 02/09/2008 BAMKIN REIDN, TAYLOR A 272.1 HYPERTRIGLYCERIDEMIA 02/09/2008 BAM PEDIATRIC SPEECH LANGUAGE PATHOLOGIST, TAYLOR A 272.4 HYPERLIPIDEMIA UNSPECIFIED 02/09/2008 BAM PEDIATRIC SPEECH LANGUAGE PATHOLOGIST, TAYLOR A 401.1 ESSENTIAL HYPERTENSION BENIGN 02/09/2008 BAM PEDIATRIC SPEECH LANGUAGE PATHOLOGIST, TAYLOR A 272.1 HYPERTRIGLYCERIDEMIA 02/09/2008 BAM PEDIATRIC SPEECH LANGUAGE PATHOLOGIST, TAYLOR A 272.4 HYPERLIPIDEMIA UNSPECIFIED 02/09/2008 BAM PEDIATRIC SPEECH LANGUAGE PATHOLOGIST, TAYLOR A 401.1 ESSENTIAL HYPERTENSION BENIGN 02/09/2008 BAMKIN REIDN, TAYLOR A 272.1 HYPERTRIGLYCERIDEMIA 02/09/2008 BAM PEDIATRIC SPEECH LANGUAGE PATHOLOGIST, TAYLOR A 272.4 HYPERLIPIDEMIA UNSPECIFIED 02/09/2008 BAM PEDIATRIC SPEECH LANGUAGE PATHOLOGIST, TAYLOR A 401.1 ESSENTIAL HYPERTENSION BENIGN 02/09/2008 BOOGIE ARAUJO APRN T 272.1 HYPERTRIGLYCERIDEMIA 02/09/2008 BOOGIE ARAUJO APRN T 272.4 HYPERLIPIDEMIA UNSPECIFIED 02/09/2008 GAYLE REIDN BOOGIE T 401.1 ESSENTIAL HYPERTENSION BENIGN 02/09/2008 GAYLE REIDN BOOGIE T 272.1 HYPERTRIGLYCERIDEMIA 02/09/2008 GAYLE PEDIATRIC SPEECH LANGUAGE PATHOLOGIST BOOGIE T 272.4 HYPERLIPIDEMIA UNSPECIFIED 02/09/2008 GAYLE REIDNBOOGIE T 401.1 ESSENTIAL HYPERTENSION BENIGN 02/09/2008 GAYLE PEDIATRIC SPEECH LANGUAGE PATHOLOGIST BOOGIE T 272.1 HYPERTRIGLYCERIDEMIA 02/09/2008 BOOGIE ARAUJO APRN T 272.4 HYPERLIPIDEMIA UNSPECIFIED 02/09/2008 BOOGIE ARAUJO APRN T 401.1 ESSENTIAL HYPERTENSION BENIGN 02/09/2008 [facility], KENN R 272.1 HYPERTRIGLYCERIDEMIA 02/09/2008 [facility], KENN R 272.4 HYPERLIPIDEMIA UNSPECIFIED 02/09/2008 [facility], KENN R 401.1 ESSENTIAL HYPERTENSION BENIGN 03/25/2008 BOOGIE ARAUJO APRN 724.3 Sciatica 03/25/2008 724.3 Sciatica 03/25/2008 724.3 Sciatica 03/25/2008 724.3 Sciatica 03/25/2008 724.3 Sciatica 03/25/2008 724.3 Sciatica 03/25/2008 [facility], KENN R 724.3 Sciatica 03/25/2008 BOOGIE ARAUJO APRN 724.3 Sciatica 03/25/2008 DARRIUS HI DO 724.3 Sciatica 03/25/2008 BOOGIE ARAUJO APRN 724.3 Sciatica 03/25/2008 LAURA HINKLE MD 724.3 Sciatica 03/25/2008 ALURA HINKLE MD 724.3 Sciatica 03/25/2008 BOOGIE ARAUJO [...] 03/25/2008 BOOGIE ARAUJO APRN 724.3 Sciatica 03/25/2008 [facility], KENN R 724.3 Sciatica 05/22/2008 BOOGIE ARAUJO APRN V72.31 Routine Gynecological Examination 05/22/2008 V72.31 Routine Gynecological Examination 05/22/2008 V72.31 Routine Gynecological Examination 05/22/2008 V72.31 Routine Gynecological Examination 05/22/2008 V72.31 Routine Gynecological Examination 05/22/2008 V72.31 Routine Gynecological Examination 05/22/2008 [facility], KENN R V72.31 Routine Gynecological [...] APRN V72.31 Routine Gynecological Examination 05/22/2008 BAM PEDIATRIC SPEECH LANGUAGE PATHOLOGIST, TAYLOR A V72.31 Routine Gynecological Examination 05/22/2008 BAM PEDIATRIC SPEECH LANGUAGE PATHOLOGIST, TAYLOR A V72.31 Routine Gynecological Examination 05/22/2008 BAM PEDIATRIC SPEECH LANGUAGE PATHOLOGIST, TAYLOR A V72.31 Routine Gynecological Examination 05/22/2008 GAYLE PEDIATRIC SPEECH LANGUAGE PATHOLOGIST, BOOGIE T V72.31 Routine Gynecological Examination 05/22/2008 GAYLE REIDN, BOOGIE T V72.31 Routine Gynecological Examination 05/22/2008 GAYLE PEDIATRIC SPEECH LANGUAGE PATHOLOGIST, BOOGIE T V72.31 Routine Gynecological Examination 05/22/2008 [facility], KENN R V72.31 Routine Gynecological Examination 07/10/2008 GAYLE REIDN, BOOGIE T 786.2 Cough 07/10/2008 786.2 Cough 07/10/2008 786.2 Cough 07/10/2008 786.2 Cough 07/10/2008 786.2 Cough 07/10/2008 786.2 Cough 07/10/2008 [facility], KENN R 786.2 Cough 07/10/2008 GAYLE REIDN, BOOGIE T 786.2 Cough 07/10/2008 DARRIUS HI DO 786.2 Cough 07/10/2008 GAYLE REIDN, BOOGIE T 786.2 Cough 07/10/2008 LAURA HINKLE MD 786.2 Cough 07/10/2008 LAURA HINKLE MD 786.2 Cough 07/10/2008 GAYLE REIDN, BOOGIE T 786.2 Cough 07/10/2008 GAYLE REIDN, BOOGIE T 786.2 Cough 07/10/2008 GAYLE REIDN, BOOGIE T 786.2 Cough 07/10/2008 GAYLE PEDIATRIC SPEECH LANGUAGE PATHOLOGIST, BOOGIE T 786.2 Cough 07/10/2008 LAURA HINKLE MD 786.2 Cough 07/10/2008 GAYLE PEDIATRIC SPEECH LANGUAGE PATHOLOGIST, BOOGIE T 786.2 Cough 07/10/2008 GAYLE PEDIATRIC SPEECH LANGUAGE PATHOLOGIST, BOOGIE T 786.2 Cough 07/10/2008 GAYLE PEDIATRIC SPEECH LANGUAGE PATHOLOGIST, BOOGIE T 786.2 Cough 07/10/2008 GAYLE PEDIATRIC SPEECH LANGUAGE PATHOLOGIST, BOOGIE T 786.2 Cough 07/10/2008 GAYLE PEDIATRIC SPEECH LANGUAGE PATHOLOGIST, BOOGIE T 786.2 Cough 07/10/2008 GAYLE REIDN, BOOGIE T 786.2 Cough 07/10/2008 GAYLE REIDN, BOOGIE T 786.2 Cough 07/10/2008 GAYLE PEDIATRIC SPEECH LANGUAGE PATHOLOGIST, BOOGIE T 786.2 Cough 07/10/2008 BAM REIDN, TAYLOR A 786.2 Cough 07/10/2008 BAM REIDN, TAYLOR A 786.2 Cough 07/10/2008 BAM PEDIATRIC SPEECH LANGUAGE PATHOLOGIST, TAYLOR A 786.2 Cough 07/10/2008 GAYLE PEDIATRIC SPEECH LANGUAGE PATHOLOGIST, BOOGIE T 786.2 Cough 07/10/2008 GAYLE PEDIATRIC SPEECH LANGUAGE PATHOLOGIST, BOOGIE T 786.2 Cough 07/10/2008 GAYLE PEDIATRIC SPEECH LANGUAGE PATHOLOGIST, BOOGIE T 786.2 Cough 07/10/2008 [facility], KENN R 786.2 Cough 07/25/2008 GAYLE PEDIATRIC SPEECH LANGUAGE PATHOLOGIST, BOOGIE T 250.00 DIABETES MELLITUS 07/25/2008 250.00 DIABETES MELLITUS 07/25/2008 250.00 DIABETES MELLITUS 07/25/2008 250.00 DIABETES MELLITUS 07/25/2008 250.00 DIABETES MELLITUS 07/25/2008 250.00 DIABETES MELLITUS 07/25/2008 [facility], KENN R 250.00 DIABETES MELLITUS 07/25/2008 GAYLE PEDIATRIC SPEECH LANGUAGE PATHOLOGIST, BOOGIE T 250.00 DIABETES MELLITUS 07/25/2008 DARRIUS HI DO 250.00 DIABETES MELLITUS 07/25/2008 GAYLE PEDIATRIC SPEECH LANGUAGE PATHOLOGIST, BOOGIE T 250.00 DIABETES MELLITUS 07/25/2008 LAURA [...] BOOGIE T 250.00 DIABETES MELLITUS 07/25/2008 GAYLE PEDIATRIC SPEECH LANGUAGE PATHOLOGIST, BOOGIE T 250.00 DIABETES MELLITUS 07/25/2008 GAYLE PEDIATRIC SPEECH LANGUAGE PATHOLOGIST, BOOGIE T 250.00 DIABETES MELLITUS 07/25/2008 GAYLE REIDN, BOOGIE T 250.00 DIABETES MELLITUS 07/25/2008 GAYLE PEDIATRIC SPEECH LANGUAGE PATHOLOGIST, BOOGIE T 250.00 DIABETES MELLITUS 07/25/2008 GAYLE PEDIATRIC SPEECH LANGUAGE PATHOLOGIST, BOOGIE T 250.00 DIABETES MELLITUS 07/25/2008 BAM PEDIATRIC SPEECH LANGUAGE PATHOLOGIST, TAYLOR A 250.00 DIABETES MELLITUS 07/25/2008 BAM PEDIATRIC SPEECH LANGUAGE PATHOLOGIST, TAYLOR A 250.00 DIABETES MELLITUS 07/25/2008 BAM PEDIATRIC SPEECH LANGUAGE PATHOLOGIST, TAYLOR A 250.00 DIABETES MELLITUS 07/25/2008 BOOGIE ARAUJO APRN 250.00 DIABETES MELLITUS 07/25/2008 BOOGIE ARAUJO APRN 250.00 DIABETES MELLITUS 07/25/2008 BOOGIE ARAUJO APRN 250.00 DIABETES MELLITUS 07/25/2008 [facility], KENN R 250.00 DIABETES MELLITUS 10/26/2008 BOOGIE ARAUJO APRN T 110.5 Dermatophytosis Tinea Corporis 10/26/2008 110.5 Dermatophytosis Tinea Corporis 10/26/2008 110.5 Dermatophytosis Tinea Corporis 10/26/2008 110.5 Dermatophytosis Tinea Corporis 10/26/2008 110.5 Dermatophytosis Tinea Corporis 10/26/2008 110.5 Dermatophytosis Tinea Corporis 10/26/2008 [facility], KENN R 110.5 Dermatophytosis Tinea [...] APRN 110.5 Dermatophytosis Tinea Corporis 10/26/2008 BAM PEDIATRIC SPEECH LANGUAGE PATHOLOGIST, TAYLOR A 110.5 Dermatophytosis Tinea Corporis 10/26/2008 BAM PEDIATRIC SPEECH LANGUAGE PATHOLOGIST, TAYLOR A 110.5 Dermatophytosis Tinea Corporis 10/26/2008 BAM APRN, TAYLOR A 110.5 Dermatophytosis Tinea Corporis 10/26/2008 BOOGIE ARAUJO APRN 110.5 Dermatophytosis Tinea Corporis 10/26/2008 BOOGIE ARAUJO APRN 110.5 Dermatophytosis Tinea Corporis 10/26/2008 BOOGIE ARAUJO APRN 110.5 Dermatophytosis Tinea Corporis 10/26/2008 [facility].5 Dermatophytosis Tinea Corporis 11/28/2008 BOOGIE ARAUJO APRN 381.81 Dysfunction Of Eustachian Tube 11/28/2008 381.81 Dysfunction Of Eustachian Tube 11/28/2008 381.81 Dysfunction Of Eustachian Tube 11/28/2008 381.81 Dysfunction Of Eustachian Tube 11/28/2008 381.81 Dysfunction Of Eustachian Tube 11/28/2008 381.81 Dysfunction Of Eustachian Tube 11/28/2008 RO [facility], KENN R 381.81 Dysfunction Of Eustachian Tube [...] 381.81 Dysfunction Of Eustachian Tube 11/28/2008 RO [facility], KENN Avila 381.81 Dysfunction Of Eustachian Tube 01/25/2009 BOOGIE ARAUJO APRN 681.11 Onychia And Paronychia Of Toe 01/25/2009 681.11 Onychia And Paronychia Of Toe 01/25/2009 681.11 Onychia And Paronychia Of Toe 01/25/2009 681.11 Onychia And Paronychia Of Toe 01/25/2009 681.11 Onychia And Paronychia Of Toe 01/25/2009 681.11 Onychia And Paronychia Of Toe 01/25/2009 RO [facility], KENN Avila 681.11 Onychia And Paronychia Of [...] 681.11 Onychia And Paronychia Of Toe 01/25/2009 [facility], KENN Avila 681.11 Onychia And [...] Symptom] 08/06/2009 786.05 Shortness Of Breath 08/06/2009 [facility], KENN R 780.60 Fever [as Symptom] 08/06/2009 [facility], KENN R 786.05 Shortness Of Breath 08/06/2009 BOOGIE ARAUJO APRN 780.60 Fever [as Symptom] 08/06/2009 BOOGIE ARAUJO APRN 786.05 Shortness Of Breath 08/06/2009 HI DOLAURAA K 780.60 Fever [as Symptom] 08/06/2009 HI DO DARRIUS K 786.05 Shortness Of Breath 08/06/2009 BOOGIE ARAUJO APRN 780.60 Fever [as Symptom] 08/06/2009 [employer]LE P[employer]IAT[employer]IC SPEECH LANGUAGE PATHOLOGIST, BOOGIE T 786.05 Shortness Of Breath 08/06/2009 [...] T 780.60 Fever [as Symptom] 08/06/2009 GAYLE DAINEL BOOGIE T 786.05 Shortness Of Breath 08/06/2009 [...] T 786.05 Shortness Of Breath 08/06/2009 BAM PEDIATRIC SPEECH LANGUAGE PATHOLOGIST, TAYLOR A 780.60 Fever [as Symptom] 08/06/2009 BAM PEDIATRIC SPEECH LANGUAGE PATHOLOGIST, TAYLOR A 786.05 Shortness Of Breath 08/06/2009 BAM PEDIATRIC SPEECH LANGUAGE PATHOLOGIST, TAYLOR A 780.60 Fever [as Symptom] 08/06/2009 BAM PEDIATRIC SPEECH LANGUAGE PATHOLOGIST, TAYLOR A 786.05 Shortness Of Breath 08/06/2009 BAM PEDIATRIC SPEECH LANGUAGE PATHOLOGIST, TAYLOR A 780.60 Fever [as Symptom] 08/06/2009 BAM PEDIATRIC SPEECH LANGUAGE PATHOLOGIST, TAYLOR A 786.05 Shortness Of Breath 08/06/2009 GAYLE DANIEL, BOOGIE T 780.60 Fever [as Symptom] 08/06/2009 BOOGIE ARAUJO APRN T 786.05 Shortness Of Breath 08/06/2009 BOOGIE ARAUJO APRN T 780.60 Fever [as Symptom] 08/06/2009 BOOGIE ARAUJO APRN T 786.05 Shortness Of Breath 08/06/2009 GAYLE DANIEL, BOOGIE T 780.60 Fever [as Symptom] 08/06/2009 BOOGIE ARAUJO APRN T 786.05 Shortness Of Breath 08/06/2009 [facility], KENN R 780.60 Fever [as Symptom] 08/06/2009 [facility], KENN R 786.05 Shortness Of Breath 08/13/2009 BOOGIE ARAUJO APRN 480.0 Pneumonia Due To Adenovirus 08/13/2009 480.0 Pneumonia Due To Adenovirus 08/13/2009 480.0 Pneumonia Due To Adenovirus 08/13/2009 480.0 Pneumonia Due To Adenovirus 08/13/2009 480.0 Pneumonia Due To Adenovirus 08/13/2009 480.0 Pneumonia Due To Adenovirus 08/13/2009 [facility], KENN R 480.0 Pneumonia Due To Adenovirus 08/13/2009 BOOGIE ARAUJO APRN 480.0 Pneumonia Due To Adenovirus 08/13/2009 DARRIUS HI DO 480.0 Pneumonia Due To Adenovirus 08/13/2009 BOOGIE ARAUJO APRN 480.0 Pneumonia Due To Adenovirus 08/13/2009 LAURA HINKLE MD 480.0 Pneumonia Due To Adenovirus 08/13/2009 LAURA HINKLE MD 480.0 Pneumonia Due To Adenovirus 08/13/2009 [employer] P[employer] SPE[employer] LANGUAGE PATHOLOGIST, BOOGIE T 480.0 Pneumonia Due To Adenovirus 08/13/2009 GAYLE PEDIATRIC SPEECH LANGUAGE PATHOLOGIST, BOOGIE T 480.0 Pneumonia Due To Adenovirus 08/13/2009 [facility] [employer], BOOGIE T 480.0 Pneumonia Due To Adenovirus 08/13/2009 [employer], BOOGIE T 480.0 Pneumonia Due To Adenovirus 08/13/2009 LAURA HINKLE MD 480.0 Pneumonia Due To Adenovirus 08/13/2009 [employer], BOOGIE T 480.0 Pneumonia Due To Adenovirus 08/13/2009 [employer], BOOGIE T 480.0 Pneumonia Due To Adenovirus 08/13/2009 [employer], BOOGIE T 480.0 Pneumonia Due To Adenovirus 08/13/2009 [employer], BOOGIE T 480.0 Pneumonia Due To Adenovirus 08/13/2009 [employer], BOOGIE T 480.0 Pneumonia Due To Adenovirus 08/13/2009 [employer], BOOGIE T 480.0 Pneumonia Due To Adenovirus 08/13/2009 [employer], BOOGIE T 480.0 Pneumonia Due To Adenovirus 08/13/2009 [employer], BOOGIE T 480.0 Pneumonia Due To Adenovirus 08/13/2009 [employer], TAYLOR A 480.0 Pneumonia Due To Adenovirus 08/13/2009 [employer], TAYLOR A 480.0 Pneumonia Due To Adenovirus 08/13/2009 [employer], TAYLOR A 480.0 Pneumonia Due To Adenovirus 08/13/2009 [employer], BOOGIE T 480.0 Pneumonia Due To Adenovirus 08/13/2009 [employer], BOOGIE T 480.0 Pneumonia Due To Adenovirus 08/13/2009 [employer], BOOGIE T 480.0 Pneumonia Due To Adenovirus 08/13/2009 [facility], KENN R 480.0 Pneumonia Due [...] Joint Pain, Localized 10/17/2009 787.91 Diarrhea 10/17/2009 [facility], KENN R 719.40 Joint Pain, Localized 10/17/2009 [facility], KENN R 787.91 Diarrhea 10/17/2009 [...] ARAUJO APRN T 787.91 Diarrhea 10/17/2009 [facility] [employer], BOOGIE T 719.40 Joint Pain, Localized 10/17/2009 [employer], BOOGIE T 787.91 Diarrhea 10/17/2009 [employer], BOOGIE T 719.40 Joint Pain, Localized 10/17/2009 [employer], BOOGIE T 787.91 Diarrhea 10/17/2009 [facility] [employer], BOOGIE T 719.40 Joint Pain, Localized 10/17/2009 [facility] [employer], BOOGIE T 787.91 Diarrhea 10/17/2009 [facility], BOOGIE T 719.40 Joint Pain, Localized 10/17/2009 [employer], BOOGIE T 787.91 Diarrhea 10/17/2009 [employer], BOOGIE T 719.40 Joint Pain, Localized 10/17/2009 [employer], BOOGIE T 787.91 Diarrhea 10/17/2009 [employer], BOOGIE T 719.40 Joint Pain, Localized 10/17/2009 [employer], BOOGIE T 787.91 Diarrhea 10/17/2009 [employer], TAYLOR A 719.40 Joint Pain, Localized 10/17/2009 [employer], TAYLOR A 787.91 Diarrhea 10/17/2009 [employer], TAYLOR A 719.40 Joint Pain, Localized 10/17/2009 [employer], TAYLOR A 787.91 Diarrhea 10/17/2009 [employer], TAYLOR A 719.40 Joint Pain, Localized 10/17/2009 [employer], TAYLOR A 787.91 Diarrhea 10/17/2009 GAYLE REIDNBOOGIE T 719.40 Joint Pain, Localized 10/17/2009 [employer], BOOGIE T 787.91 Diarrhea 10/17/2009 [employer], BOOGIE T 719.40 Joint Pain, Localized 10/17/2009 [employer], BOOGIE T 787.91 Diarrhea 10/17/2009 [facility] REIDN, BOOGIE T 719.40 Joint Pain, Localized 10/17/2009 [employer], BOOGIE T 787.91 Diarrhea 10/17/2009 [facility], KENN R 719.40 Joint Pain, Localized 10/17/2009 [facility], KENN R 787.91 Diarrhea 11/20/2009 BOOGIE ARAUJO APRN T 692.9 Dermatitis Contact Unspecified 11/20/2009 692.9 Dermatitis Contact Unspecified 11/20/2009 692.9 Dermatitis Contact Unspecified 11/20/2009 692.9 Dermatitis Contact Unspecified 11/20/2009 692.9 Dermatitis Contact Unspecified 11/20/2009 692.9 Dermatitis Contact Unspecified 11/20/2009 [facility] [facility] Avila 692.9 Dermatitis Contact [...] ARAUJO APRN 692.9 Dermatitis Contact Unspecified 11/20/2009 [facility], KENN R 692.9 Dermatitis Contact [...] Stress 01/15/2010 790.29 Other Abnormal Glucose 01/15/2010 [facility], KENN R 296.90 Mood Disorder 01/15/2010 [facility], KENN R 300.00 ANXIETY UNSPEC 01/15/2010 [facility], KENN R 308.3 Other Acute Reactions To Stress 01/15/2010 [facility], KENN R 790.29 Other Abnormal [...] T 790.29 Other Abnormal Glucose 01/15/2010 [facility] [employer] L[employer]UAGE PATHOLOGIST, BOOGIE T 296.90 Mood Disorder 01/15/2010 BOOGIE [...] TAYLOR A 296.90 Mood Disorder 01/15/2010 BAM P[employer]IATR[employer] SPEECH LANGUAGE PATHOLOGIST, TAYLOR A 300.00 ANXIETY UNSPEC 01/15/2010 BAM PEDIATRIC SPEECH LANGUAGE PATHOLOGIST, TAYLOR A 308.3 Other Acute Reactions To Stress 01/15/2010 BAM PEDIATRIC SPEECH LANGUAGE PATHOLOGIST, TAYLOR A 790.29 Other Abnormal Glucose 01/15/2010 BAM PEDIATRIC SPEECH LANGUAGE PATHOLOGIST, TAYLOR A 296.90 Mood Disorder 01/15/2010 BAM PEDIATRIC SPEECH LANGUAGE PATHOLOGIST, TAYLOR A 300.00 ANXIETY UNSPEC 01/15/2010 BAM PEDIATRIC SPEECH LANGUAGE PATHOLOGIST, TAYLOR A 308.3 Other Acute Reactions To Stress 01/15/2010 BAM PEDIATRIC SPEECH LANGUAGE PATHOLOGIST, TAYLOR A 790.29 Other Abnormal Glucose 01/15/2010 BAM PEDIATRIC SPEECH LANGUAGE PATHOLOGIST, TAYLOR A 296.90 Mood Disorder 01/15/2010 BAM PEDIATRIC SPEECH LANGUAGE PATHOLOGIST, TAYLOR A 300.00 ANXIETY UNSPEC 01/15/2010 BAM PEDIATRIC SPEECH LANGUAGE PATHOLOGIST, TAYLOR A 308.3 Other Acute Reactions To [...] ARAUJO APRN 790.29 Other Abnormal Glucose 01/15/2010 [facility], KENN R 296.90 Mood Disorder 01/15/2010 [facility], KENN R 300.00 ANXIETY UNSPEC 01/15/2010 [facility], KENN R 308.3 Other Acute Reactions To Stress 01/15/2010 [facility], KENN R 790.29 Other Abnormal Glucose 01/23/2010 BOOGIE ARAUJO APRN 462 Pharyngitis Acute 01/23/2010 462 Pharyngitis Acute 01/23/2010 462 Pharyngitis Acute 01/23/2010 462 Pharyngitis Acute 01/23/2010 462 Pharyngitis Acute 01/23/2010 462 Pharyngitis Acute 01/23/2010 [facility], KENN R 462 Pharyngitis Acute [...] ARAUJO APRN 462 Pharyngitis Acute 01/23/2010 [employer] P[employer] SPEECH LANGUAGE PATHOLOGIST, BOOGIE T 462 Pharyngitis Acute 01/23/2010 GAYLE PEDIATRIC SPEECH LANGUAGE PATHOLOGIST, BOOGIE T 462 Pharyngitis Acute 01/23/2010 GAYLE PEDIATRIC SPEECH LANGUAGE PATHOLOGIST, BOOGIE T 462 Pharyngitis Acute 01/23/2010 GAYLE PEDIATRIC SPEECH LANGUAGE PATHOLOGIST, BOOGIE T 462 Pharyngitis Acute 01/23/2010 GAYLE PEDIATRIC SPEECH LANGUAGE PATHOLOGIST, BOOGIE T 462 Pharyngitis Acute 01/23/2010 G[employer]LE PEDIATRIC SPEECH LANGUAGE PATHOLOGIST, BOOGIE T 462 Pharyngitis Acute 01/23/2010 GAYLE PEDIATRIC SPEECH LANGUAGE PATHOLOGIST, BOOGIE T 462 Pharyngitis Acute 01/23/2010 BAM PEDIATRIC SPEECH LANGUAGE PATHOLOGIST, TAYLOR A 462 Pharyngitis Acute 01/23/2010 BAM PEDIATRIC SPEECH LANGUAGE PATHOLOGIST, TAYLOR A 462 Pharyngitis Acute 01/23/2010 BAM PEDIATRIC SPEECH LANGUAGE PATHOLOGIST, TAYLOR A 462 Pharyngitis Acute 01/23/2010 GAYLE P[employer]IAT[employer]IC SPEECH LANGUAGE PATHOLOGIST, BOOGIE T 462 Pharyngitis Acute 01/23/2010 GAYLE PEDIATRIC SPEECH LANGUAGE PATHOLOGIST, BOOGIE T 462 Pharyngitis Acute 01/23/2010 GAYLE PEDIATRIC SPEECH LANGUAGE PATHOLOGIST, BOOGIE T 462 Pharyngitis Acute 01/23/2010 [facility], KENN R 462 Pharyngitis Acute 02/11/2010 GAYLE REIDN, BOOGIE T 716.90 Arthritis/ Arthropathy, Unspecified 02/11/2010 716.90 Arthritis/ Arthropathy, Unspecified 02/11/2010 716.90 Arthritis/ Arthropathy, Unspecified 02/11/2010 716.90 Arthritis/ Arthropathy, Unspecified 02/11/2010 716.90 Arthritis/ Arthropathy, Unspecified 02/11/2010 716.90 Arthritis/ Arthropathy, Unspecified 02/11/2010 [facility], KENN R 716.90 Arthritis/ Arthropathy, Unspecified 02/11/2010 GAYLE P[employer] SPEECH LANGUAGE PATHOLOGIST, BOOGIE T 716.90 Arthritis/ Arthropathy, Unspecified 02/11/2010 DARRIUS HI DO 716.90 Arthritis/ Arthropathy, Unspecified 02/11/2010 GAYLE REIDN, BOOGIE T 716.90 Arthritis/ Arthropathy, Unspecified 02/11/2010 ARIN ORTIZ, LAURA 716.90 Arthritis/ Arthropathy, Unspecified 02/11/2010 ARIN ORTIZ, LAURA 716.90 Arthritis/ Arthropathy, Unspecified 02/11/2010 G[employer]LE P[employer] SPEECH LANGUAGE PATHOLOGIST, BOOGIE T 716.90 Arthritis/ Arthropathy, Unspecified 02/11/2010 [...] ARAUJO APRN 716.90 Arthritis/ Arthropathy, Unspecified 02/11/2010 [facility], KENN Avila 716.90 Arthritis/ Arthropathy, [...] MODERATE 03/26/2010 780.50 Sleep Disturbance, Unspecified 03/26/2010 [facility], KENN R 296.22 MO DEPRESSIVE SINGLE MODERATE 03/26/2010 [facility], KENN R 780.50 Sleep Disturbance, [...] MD 780.50 Sleep Disturbance, Unspecified 03/26/2010 [facility] P[employer] SPEECH LANGUAGE PATHOLOGIST, BOOGIE T 296.22 MO DEPRESSIVE SINGLE MODERATE 03/26/2010 G[employer]LE P[employer]IAT[employer]IC SPEECH LANGUAGE PATHOLOGIST, BOOGIE T 780.50 Sleep Disturbance, Unspecified 03/26/2010 G[employer]LE P[employer]IATRIC SPEECH LANGUAGE PATHOLOGIST, BOOGIE T 296.22 MO DEPRESSIVE SINGLE MODERATE 03/26/2010 GAYLE PEDIATRIC SPEECH LANGUAGE PATHOLOGIST, BOOGIE T 780.50 Sleep Disturbance, Unspecified 03/26/2010 GAYLE PEDIATRIC SPEECH LANGUAGE PATHOLOGIST, BOOGIE T 296.22 MO DEPRESSIVE SINGLE MODERATE 03/26/2010 GAYLE PEDIATRIC SPEECH LANGUAGE PATHOLOGIST, BOOGIE T 780.50 Sleep Disturbance, Unspecified 03/26/2010 GAYLE PEDIATRIC SPEECH LANGUAGE PATHOLOGIST, BOOGIE T 296.22 MO DEPRESSIVE SINGLE MODERATE 03/26/2010 GAYLE PEDIATRIC SPEECH LANGUAGE PATHOLOGIST, BOOGIE T 780.50 Sleep Disturbance, Unspecified 03/26/2010 GAYLE PEDIATRIC SPEECH LANGUAGE PATHOLOGIST, BOOGIE T 296.22 MO DEPRESSIVE SINGLE MODERATE 03/26/2010 GAYLE PEDIATRIC SPEECH LANGUAGE PATHOLOGIST, BOOGIE T 780.50 Sleep Disturbance, Unspecified 03/26/2010 GAYLE PEDIATRIC SPEECH LANGUAGE PATHOLOGIST, BOOGIE T 296.22 MO DEPRESSIVE SINGLE MODERATE 03/26/2010 GAYLE PEDIATRIC SPEECH LANGUAGE PATHOLOGIST, BOOGIE T 780.50 Sleep Disturbance, Unspecified 03/26/2010 GAYLE PEDIATRIC SPEECH LANGUAGE PATHOLOGIST, BOOGIE T 296.22 MO DEPRESSIVE SINGLE MODERATE 03/26/2010 GAYLE PEDIATRIC SPEECH LANGUAGE PATHOLOGIST, BOOGIE T 780.50 Sleep Disturbance, Unspecified 03/26/2010 GAYLE PEDIATRIC SPEECH LANGUAGE PATHOLOGIST, BOOGIE T 296.22 MO DEPRESSIVE SINGLE MODERATE 03/26/2010 GAYLE PEDIATRIC SPEECH LANGUAGE PATHOLOGIST, BOOGIE T 780.50 Sleep Disturbance, Unspecified 03/26/2010 BAM PEDIATRIC SPEECH LANGUAGE PATHOLOGIST, TAYLOR A 296.22 MO DEPRESSIVE SINGLE MODERATE 03/26/2010 BAM PEDIATRIC SPEECH LANGUAGE PATHOLOGIST, TAYLOR A 780.50 Sleep Disturbance, Unspecified 03/26/2010 BAM PEDIATRIC SPEECH LANGUAGE PATHOLOGIST, TAYLOR A 296.22 MO DEPRESSIVE SINGLE MODERATE 03/26/2010 BAM PEDIATRIC SPEECH LANGUAGE PATHOLOGIST, TAYLOR A 780.50 Sleep Disturbance, Unspecified 03/26/2010 BAM PEDIATRIC SPEECH LANGUAGE PATHOLOGIST, TAYLOR A 296.22 MO DEPRESSIVE SINGLE MODERATE 03/26/2010 BAM PEDIATRIC SPEECH LANGUAGE PATHOLOGIST, TAYLOR A 780.50 Sleep Disturbance, Unspecified 03/26/2010 GAYLE PEDIATRIC SPEECH LANGUAGE PATHOLOGIST, BOOGIE T 296.22 MO DEPRESSIVE SINGLE MODERATE 03/26/2010 GAYLE PEDIATRIC SPEECH LANGUAGE PATHOLOGIST, BOOGIE T 780.50 Sleep Disturbance, Unspecified 03/26/2010 GAYLE REIDN, BOOGIE T 296.22 MO DEPRESSIVE SINGLE MODERATE 03/26/2010 GAYLE PEDIATRIC SPEECH LANGUAGE PATHOLOGIST, BOOGIE T 780.50 Sleep Disturbance, Unspecified 03/26/2010 BOOGIE ARAUJO APRN T 296.22 MO DEPRESSIVE SINGLE MODERATE 03/26/2010 BOOGIE ARAUJO APRN T 780.50 Sleep Disturbance, Unspecified 03/26/2010 [facility], KENN R 296.22 MO DEPRESSIVE SINGLE MODERATE 03/26/2010 [facility] R 780.50 SLEEP DISTURBANCE, UNSPECIFIED 06/01/2010 BOOGIE ARAUJO APRN T 296.32 MO DEPRESSIVE RECURRENT MODERATE 06/01/2010 296.32 MO DEPRESSIVE RECURRENT MODERATE 06/01/2010 296.32 MO DEPRESSIVE RECURRENT MODERATE 06/01/2010 296.32 MO DEPRESSIVE RECURRENT MODERATE 06/01/2010 296.32 MO DEPRESSIVE RECURRENT MODERATE 06/01/2010 296.32 MO DEPRESSIVE RECURRENT MODERATE 06/01/2010 [facility], KENN R 296.32 MO DEPRESSIVE [...] 296.32 MO DEPRESSIVE RECURRENT MODERATE 06/01/2010 BAM PEDIATRIC SPEECH LANGUAGE PATHOLOGIST, TAYLOR A 296.32 MO DEPRESSIVE RECURRENT MODERATE 06/01/2010 BAM PEDIATRIC SPEECH LANGUAGE PATHOLOGIST, TAYLOR A 296.32 MO DEPRESSIVE RECURRENT MODERATE 06/01/2010 BAM PEDIATRIC SPEECH LANGUAGE PATHOLOGIST, TAYLOR A 296.32 MO DEPRESSIVE RECURRENT MODERATE 06/01/2010 BOOGIE ARAUJO APRN T 296.32 MO DEPRESSIVE RECURRENT MODERATE 06/01/2010 BOOGIE ARAUJO APRN 296.32 MO DEPRESSIVE RECURRENT MODERATE 06/01/2010 BOOGIE ARAUJO APRN 296.32 MO DEPRESSIVE RECURRENT MODERATE 06/01/2010 [facility], KENN R 296.32 MO DEPRESSIVE [...] Dx (3 Yrs And Above, Im) 02/19/2011 [facility], KENN R V04.81 Flu Dx [...] (3 Yrs And Above, Im) 02/19/2011 G[employer] PEDIAT[employer] SPEECH LANGUAGE PATHOLOGIST, BOOGIE T V04.81 Flu Dx (3 Yrs [...] Dx (3 Yrs And Above, Im) 02/19/2011 [facility], KENN Avila V04.81 Flu Dx (3 Yrs And Above, Im) 02/21/2011 BOOGIE ARAUJO APRN 791.0 PROTEINURIA 02/21/2011 791.0 PROTEINURIA 02/21/2011 791.0 PROTEINURIA 02/21/2011 791.0 PROTEINURIA 02/21/2011 791.0 PROTEINURIA 02/21/2011 791.0 PROTEINURIA 02/21/2011 [facility], KENN R 791.0 PROTEINURIA 02/21/2011 GAYLE PEDIATRIC SPEECH LANGUAGE PATHOLOGIST, BOOGIE T 791.0 PROTEINURIA 02/21/2011 DARRIUS HI DO 791.0 PROTEINURIA 02/21/2011 GAYEL PEDIATRIC SPEECH LANGUAGE PATHOLOGIST, BOOGIE T 791.0 PROTEINURIA 02/21/2011 LAURA HINKLE MD 791.0 PROTEINURIA 02/21/2011 LAURA HINKLE MD 791.0 PROTEINURIA 02/21/2011 [facility] P[employer]IC SPEECH LANGUAGE PATHOLOGIST, BOOGIE T 791.0 PROTEINURIA 02/21/2011 GAYLE PEDIATRIC SPEECH LANGUAGE PATHOLOGIST, BOOGIE T 791.0 PROTEINURIA 02/21/2011 GAYLE PEDIATRIC SPEECH LANGUAGE PATHOLOGIST, BOOGIE T 791.0 PROTEINURIA 02/21/2011 GAYLE PEDIATRIC SPEECH LANGUAGE PATHOLOGIST, BOOGIE T 791.0 PROTEINURIA 02/21/2011 LAURA HINKLE MD 791.0 PROTEINURIA 02/21/2011 GAYLE PEDIATRIC SPEECH LANGUAGE PATHOLOGIST, BOOGIE T 791.0 PROTEINURIA 02/21/2011 GAYLE PEDIATRIC SPEECH LANGUAGE PATHOLOGIST, BOOGIE T 791.0 PROTEINURIA 02/21/2011 GAYLE PEDIATRIC SPEECH LANGUAGE PATHOLOGIST, BOOGIE T 791.0 PROTEINURIA 02/21/2011 GAYLE PEDIATRIC SPEECH LANGUAGE PATHOLOGIST, BOOGIE T 791.0 PROTEINURIA 02/21/2011 GAYLE PEDIATRIC SPEECH LANGUAGE PATHOLOGIST, BOOGIE T 791.0 PROTEINURIA 02/21/2011 GAYLE PEDIATRIC SPEECH LANGUAGE PATHOLOGIST, BOOGIE T 791.0 PROTEINURIA 02/21/2011 GAYLE PEDIATRIC SPEECH LANGUAGE PATHOLOGIST, BOOGIE T 791.0 PROTEINURIA 02/21/2011 GAYLE PEDIATRIC SPEECH LANGUAGE PATHOLOGIST, BOOGIE T 791.0 PROTEINURIA 02/21/2011 BAM PEDIATRIC SPEECH LANGUAGE PATHOLOGIST, TAYLOR A 791.0 PROTEINURIA 02/21/2011 BAM PEDIATRIC SPEECH LANGUAGE PATHOLOGIST, TAYLOR A 791.0 PROTEINURIA 02/21/2011 BAM PEDIATRIC SPEECH LANGUAGE PATHOLOGIST, TAYLOR A 791.0 PROTEINURIA 02/21/2011 GAYLE PEDIATRIC SPEECH LANGUAGE PATHOLOGIST, BOOGIE T 791.0 PROTEINURIA 02/21/2011 GAYLE PEDIATRIC SPEECH LANGUAGE PATHOLOGIST, BOOGIE T 791.0 PROTEINURIA 02/21/2011 GAYLE PEDIATRIC SPEECH LANGUAGE PATHOLOGIST, BOOGIE T 791.0 PROTEINURIA 02/21/2011 [facility], KENN R 791.0 PROTEINURIA 08/25/2011 BOOGIE ARAUJO APRN V68.1 ISSUE OF REPEAT PRESCRIPTIONS 08/25/2011 V68.1 ISSUE OF REPEAT PRESCRIPTIONS 08/25/2011 V68.1 ISSUE OF REPEAT PRESCRIPTIONS 08/25/2011 V68.1 ISSUE OF REPEAT PRESCRIPTIONS 08/25/2011 V68.1 ISSUE OF REPEAT PRESCRIPTIONS 08/25/2011 V68.1 ISSUE OF REPEAT PRESCRIPTIONS 08/25/2011 [facility], KENN R V68.1 ISSUE OF [...] APRN V68.1 ISSUE OF REPEAT PRESCRIPTIONS 08/25/2011 [facility], KENN R V68.1 ISSUE OF [...] Dx (3 Yrs And Above, Im) 02/29/2012 [facility], KENN R V04.81 Flu Dx [...] (3 Yrs And Above, Im) 02/29/2012 BAM PEDIATRIC SPEECH LANGUAGE PATHOLOGIST, TAYLOR A V04.81 Flu Dx (3 Yrs And Above, Im) 02/29/2012 BAM PEDIATRIC SPEECH LANGUAGE PATHOLOGIST, TAYLOR A V04.81 Flu Dx (3 Yrs And Above, Im) 02/29/2012 BAM APRN, TAYLOR A V04.81 Flu Dx (3 Yrs And Above, Im) 02/29/2012 GAYLE BOOGIE DANIEL T V04.81 Flu Dx (3 Yrs And Above, Im) 02/29/2012 BOOGIE ARAUJO APRN T V04.81 Flu Dx (3 Yrs And Above, Im) 02/29/2012 BOOGIE ARAUJO APRN T V04.81 Flu Dx (3 Yrs And Above, Im) 02/29/2012 [facility], KENN R V04.81 FLU DX (3 YRS AND ABOVE, IM) 03/16/2012 Ot V43.65 KNEE JOINT REPLACEMENT STATUS 03/16/2012 Ot V54.81 AFTERCARE FOLLOWING JOINT REPLACEMENT 03/16/2012 Ot V57.1 PHYSICAL THERAPY NEC 05/31/2012 BOOGIE ARAUJO APRN 729.5 LEG PAIN 05/31/2012 729.5 LEG PAIN 05/31/2012 729.5 LEG PAIN 05/31/2012 729.5 LEG PAIN 05/31/2012 729.5 LEG PAIN 05/31/2012 729.5 LEG PAIN 05/31/2012 RO [facility], KENN R 729.5 LEG PAIN 05/31/2012 BOOGIE ARAUJO APRN 729.5 LEG PAIN 05/31/2012 DARRIUS HI DO 729.5 LEG PAIN 05/31/2012 BOOGIE ARAUJO APRN 729.5 LEG PAIN 05/31/2012 LAURA HINKLE MD 729.5 LEG PAIN 05/31/2012 LAURA HINKLE MD 729.5 LEG PAIN 05/31/2012 G[employer]LE P[employer]IATRIC SPEECH LANGUAGE PATHOLOGIST, BOOGIE T 729.5 LEG PAIN 05/31/2012 GAYLE PEDIATRIC SPEECH LANGUAGE PATHOLOGIST, BOOGIE T 729.5 LEG PAIN 05/31/2012 GAYLE PEDIATRIC SPEECH LANGUAGE PATHOLOGIST, BOOGIE T 729.5 LEG PAIN 05/31/2012 GAYLE PEDIATRIC SPEECH LANGUAGE PATHOLOGIST, BOOGIE T 729.5 LEG PAIN 05/31/2012 LAURA HINKLE MD 729.5 LEG PAIN 05/31/2012 GAYLE PEDIATRIC SPEECH LANGUAGE PATHOLOGIST, BOOGIE T 729.5 LEG PAIN 05/31/2012 GAYLE PEDIATRIC SPEECH LANGUAGE PATHOLOGIST, BOOGIE T 729.5 LEG PAIN 05/31/2012 GAYLE PEDIATRIC SPEECH LANGUAGE PATHOLOGIST, BOOGIE T 729.5 LEG PAIN 05/31/2012 GAYLE PEDIATRIC SPEECH LANGUAGE PATHOLOGIST, BOOGIE T 729.5 LEG PAIN 05/31/2012 GAYLE PEDIATRIC SPEECH LANGUAGE PATHOLOGIST, BOOGIE T 729.5 LEG PAIN 05/31/2012 GAYLE PEDIATRIC SPEECH LANGUAGE PATHOLOGIST, BOOGIE T 729.5 LEG PAIN 05/31/2012 GAYLE PEDIATRIC SPEECH LANGUAGE PATHOLOGIST, BOOGIE T 729.5 LEG PAIN 05/31/2012 GAYLE PEDIATRIC SPEECH LANGUAGE PATHOLOGIST, BOOGIE T 729.5 LEG PAIN 05/31/2012 BAM APRN, TAYLOR A 729.5 LEG PAIN 05/31/2012 BAM PEDIATRIC SPEECH LANGUAGE PATHOLOGIST, TAYLOR A 729.5 LEG PAIN 05/31/2012 BAM PEDIATRIC SPEECH LANGUAGE PATHOLOGIST, TAYLOR A 729.5 LEG PAIN 05/31/2012 GAYLE PEDIATRIC SPEECH LANGUAGE PATHOLOGIST, BOOGIE T 729.5 LEG PAIN 05/31/2012 GAYLE PEDIATRIC SPEECH LANGUAGE PATHOLOGIST, BOOGIE T 729.5 LEG PAIN 05/31/2012 GAYLE PEDIATRIC SPEECH LANGUAGE PATHOLOGIST, BOOGIE T 729.5 LEG PAIN 11/08/2012 LISA PAIGE MD Ot 250.00 DIAB CON WO COMPL, TYPE II OR UNSPEC TY 11/08/2012 LISA PAIGE MD Ot 272.4 HYPERLIPIDEMIA NEC/NOS 11/08/2012 LISA PAIGE MD Ot 278.00 OBESITY, NOS 11/08/2012 LISA PAIGE MD Ot 401.9 HYPERTENSION NOS 11/08/2012 LISA PAIGE MD Ot 414.01 CORONARY ATHEROSCLEROSIS OF [place] CORON 11/08/2012 LISA PAIGE MD Ot 424.0 MITRAL VALVE DISORDER 11/08/2012 LISA PAGIE MD Ot 433.10 CAROTID ARTERY OCCLUSION W [...] GAYLE REIDNBOOGIE T 477.9 RHINITIS 03/23/2013 GAYLE PEDIATRIC SPEECH LANGUAGE PATHOLOGIST, BOOGIE T 788.1 DYSURIA 03/23/2013 BOOGIE ARAUJO APRN T 477.9 RHINITIS 03/23/2013 BOOGIE ARAUJO APRN T 788.1 DYSURIA 03/23/2013 BOOGIE ARAUJO APRN 477.9 RHINITIS 03/23/2013 GAYLE REIDNBOOGIE T 788.1 DYSURIA 03/23/2013 GAYLE REIDNBOOGIE T 477.9 RHINITIS 03/23/2013 BOOGIE ARAUJO APRN T 788.1 DYSURIA 03/23/2013 BOOGIE ARAUJO APRN T 477.9 RHINITIS 03/23/2013 BOOGIE ARAUJO APRN T 788.1 DYSURIA 03/23/2013 BAM PEDIATRIC SPEECH LANGUAGE PATHOLOGIST, TAYLOR A 477.9 RHINITIS 03/23/2013 BAM PEDIATRIC SPEECH LANGUAGE PATHOLOGIST, TAYLOR A 788.1 DYSURIA 03/23/2013 BAM PEDIATRIC SPEECH LANGUAGE PATHOLOGIST, TAYLOR A 477.9 RHINITIS 03/23/2013 BAM PEDIATRIC SPEECH LANGUAGE PATHOLOGIST, TAYLOR A 788.1 DYSURIA 03/23/2013 BAM PEDIATRIC SPEECH LANGUAGE PATHOLOGIST, TAYLOR A 477.9 RHINITIS 03/23/2013 BAM PEDIATRIC SPEECH LANGUAGE PATHOLOGIST, TAYLOR A 788.1 DYSURIA 03/23/2013 BOOGIE ARAUJO [...] AND ABSCESS OF UNSPECIFIED SITES 08/01/2013 GAYLE PEDIATRIC SPEECH LANGUAGE PATHOLOGIST, BOOGIE T 682.9 CELLULITIS AND ABSCESS OF [...] ARAUJO APRN T 782.1 RASH 08/08/2013 GAYLE REIDNBOGOIE T 782.1 RASH 08/08/2013 GAYLE REIDN, BOOGIE T 782.1 RASH 08/08/2013 GAYLE REIDN, BOOGIE T 782.1 RASH 08/08/2013 BAM APRN, TAYLOR A 782.1 RASH 08/08/2013 BAM PEDIATRIC SPEECH LANGUAGE PATHOLOGIST, TAYLOR A 782.1 RASH 08/08/2013 BAM PEDIATRIC SPEECH LANGUAGE PATHOLOGIST, TAYLOR A 782.1 RASH 08/08/2013 GAYLE REIDN, [...] BOOGIE ARAUJO APRN T 477.9 RHINITIS 04/12/2014 BOOGEI ARAUJO APRN T 477.9 RHINITIS 04/15/2014 BOOGIE [...] SPECIFIED COUNSELING 05/15/2014 TAYLOR KUHN APRN V72.31 DIRECTOR PEDIATRIC EXAM, ROUTINE 05/15/2014 TAYLOR KUHN APRN V76.10 BREAST CANCER SCREENING 05/15/2014 BAM PEDIATRIC SPEECH LANGUAGE PATHOLOGIST, TAYLOR A V65.49 OTHER SPECIFIED COUNSELING 05/15/2014 TAYLOR KUHN APRN V72.31 DIRECTOR PEDIATRIC EXAM, ROUTINE 05/15/2014 TAYLOR KUHN APRN A V76.10 BREAST CANCER SCREENING 05/15/2014 BOOGIE ARAUJO APRN V65.49 OTHER SPECIFIED COUNSELING 05/15/2014 BOOGIE ARAUJO APRN V72.31 DIRECTOR PEDIATRIC EXAM, ROUTINE 05/15/2014 BOOGIE ARAUJO APRN V76.10 BREAST CANCER SCREENING 05/15/2014 BOOGIE ARAUJO APRN V65.49 OTHER SPECIFIED COUNSELING 05/15/2014 BOOGIE ARAUJO APRN V72.31 DIRECTOR PEDIATRIC EXAM, ROUTINE 05/15/2014 BOOGIE ARAUJO APRN V76.10 BREAST CANCER SCREENING 05/15/2014 BOOGIE ARAUJO APRN V65.49 OTHER SPECIFIED COUNSELING 05/15/2014 BOOGIE ARAUJO APRN V72.31 DIRECTOR PEDIATRIC EXAM, ROUTINE 05/15/2014 BOOGIE ARAUJO APRN V76.10 [...] ARAUJO APRN 719.41 PAIN- SHOULDER 10/11/2014 GAYLE PEDIATRIC SPEECH LANGUAGE PATHOLOGISTBOOGIE V03.82 PPV23 (PNEUMOVAX) DX 12/02/2014 BROOKLYN ORTIZ, [...] Ot 401.9 06/27/2015 Ot 786.50 06/27/2015 ROYAL ORITZ, LISA Hammer Ot 272.4 06/27/2015 ROYAL ORTIZ, LISA Hammer Ot 397.0 06/27/2015 ROYAL ORTIZ, LISA Hammer Ot 401.9 06/27/2015 ROYAL ORTIZ, LISA Hammer Ot 424.0 06/27/2015 ROYAL ORTIZ, LISA Hammer Ot 429.3 06/27/2015 ROYAL ORTIZ, LISA Hammer Ot 786.50 06/27/2015 ROYAL ORTIZ, LISA Hammer Ot 272.4 06/27/2015 ROYAL ORTIZ, LISA Hammer Ot 401.9 06/27/2015 ROYAL ORTIZ, LISA Hammer Ot 786.50 06/27/2015 ABAD ORTIZ, BOOGIE Kirby Ot 719.46 06/27/2015 ABAD ORTIZ, BOOGIE Kirby Ot V43.65 06/27/2015 BAMTAYLOR PEDIATRIC SPEECH LANGUAGE PATHOLOGIST Ot V76.12 06/27/2015 BAMTAYLOR PEDIATRIC SPEECH LANGUAGE PATHOLOGIST Ot 793.89 06/27/2015 BAMTAYLOR PEDIATRIC SPEECH LANGUAGE PATHOLOGIST Ot 793.89 06/27/2015 BROOKLYN ORTIZ, PAIGE R [...] ANGEL K Ot 786.50 06/30/2015 HELIO WILEY PEDIATRIC SPEECH LANGUAGE PATHOLOGIST Ot R92.8 07/08/2015 GARIBALDI DAVID VERDE Ot D12.3 BENIGN NEOPLASM OF TRANSVERSE COLON 07/08/2015 GARIBALDI DAVID VERDE Ot D12.5 BENIGN NEOPLASM OF SIGMOID COLON 07/08/2015 GARIBALDI DAVID VERDE Ot D12.8 BENIGN NEOPLASM OF RECTUM 07/08/2015 GARIBALDI DAVID VERDE Ot R19.7 DIARRHEA, UNSPECIFIED 07/08/2015 GARIBALDI DAVID VERDE Ot Z12.11 ENCOUNTER FOR SCREENING FOR MALIGNANT NE 07/16/2015 HELIO WILEY PEDIATRIC SPEECH LANGUAGE PATHOLOGIST Ot R92.8 11/19/2015 Ot 250.00 DIAB CON [...] KNEE JOINT REPLACEMENT STATUS 11/19/2015 TAYLOR KUHN PEDIATRIC SPEECH LANGUAGE PATHOLOGIST Ot V76.12 OTH SCREEN MAMMO-MALIGN NEOPLASM OF ELA 11/19/2015 TAYLOR KUHN PEDIATRIC SPEECH LANGUAGE PATHOLOGIST Ot 793.89 OTH (ABN) FINDINGS ON RADIOLOGICAL EXAMI 11/19/2015 TAYLOR KUHN PEDIATRIC SPEECH LANGUAGE PATHOLOGIST Ot 793.89 OTH (ABN) FINDINGS ON RADIOLOGICAL [...] DO Ot I25.10 ATHSCL HEART DISEASE OF [place] CORONARY 11/21/2015 JED SAINZ DO Ot R06.00 DYSPNEA, UNSPECIFIED 11/25/2015 JED SAINZ DO Ot G47.33 OBSTRUCTIVE SLEEP APNEA (ADULT) (PEDIATR 11/25/2015 JED SAINZ DO Ot I10 ESSENTIAL (PRIMARY) HYPERTENSION 12/04/2015 JED SAINZ DO Ot I25.10 ATHSCL HEART DISEASE OF [place] CORONARY 12/04/2015 JED SAINZ DO Ot R06.00 [...] KNEE JOINT REPLACEMENT STATUS 06/07/2016 TAYLOR KUHN PEDIATRIC SPEECH LANGUAGE PATHOLOGIST Ot V76.12 OTH SCREEN MAMMO-MALIGN NEOPLASM OF ELA 06/07/2016 TAYLOR KUHN PEDIATRIC SPEECH LANGUAGE PATHOLOGIST Ot 793.89 OTH (ABN) FINDINGS ON RADIOLOGICAL EXAMI 06/07/2016 TAYLOR KUHN PEDIATRIC SPEECH LANGUAGE PATHOLOGIST Ot 793.89 OTH (ABN) FINDINGS ON RADIOLOGICAL [...] 786.50 CHEST PAIN NOS 06/07/2016 HELIO WILEY PEDIATRIC SPEECH LANGUAGE PATHOLOGIST Ot R92.8 OTH ABN AND INCONCLUSIVE FINDINGS ON DX 06/07/2016 DAVID SMYTH DO Ot Z01.818 ENCOUNTER FOR OTHER PREPROCEDURAL EXAMIN 06/07/2016 JED SAINZ DO Ot I25.10 ATHSCL HEART DISEASE OF [place] CORONARY 06/07/2016 JED SAINZ DO Ot R06.00 [...] MAMMO-MALIGN NEOPLASM OF ELA 06/23/2016 TAYLOR KUHN PEDIATRIC SPEECH LANGUAGE PATHOLOGIST Ot 793.89 OTH (ABN) FINDINGS ON RADIOLOGICAL EXAMI 06/23/2016 TAYLOR KUHN PEDIATRIC SPEECH LANGUAGE PATHOLOGIST Ot 793.89 OTH (ABN) FINDINGS ON RADIOLOGICAL [...] DO Ot I25.10 ATHSCL HEART DISEASE OF [place] CORONARY 06/23/2016 JED SAINZ DO Ot R06.00 [...] OTHER FORMS OF DYSPNEA 07/20/2016 JAYY JIANG PEDIATRIC SPEECH LANGUAGE PATHOLOGIST Ot J18.9 PNEUMONIA, UNSPECIFIED ORGANISM 07/22/2016 MADL, ANGEL L SOFTWARE APPLICATIONS DESIGNER Ot Z12.31 ENCNTR SCREEN MAMMOGRAM FOR MALIGNANT NE 07/22/2016 JAYY JIANG PEDIATRIC SPEECH LANGUAGE PATHOLOGIST Ot D12.6 BENIGN NEOPLASM OF COLON, UNSPECIFIED 07/22/2016 JAYY JIANG PEDIATRIC SPEECH LANGUAGE PATHOLOGIST Ot E66.9 OBESITY, UNSPECIFIED 07/22/2016 JAYY JIANG PEDIATRIC SPEECH LANGUAGE PATHOLOGIST Ot F41.9 ANXIETY DISORDER, UNSPECIFIED 07/22/2016 JAYY JIANG PEDIATRIC SPEECH LANGUAGE PATHOLOGIST Ot G47.33 OBSTRUCTIVE SLEEP APNEA (ADULT) (PEDIATR 07/22/2016 JAYY JIANG PEDIATRIC SPEECH LANGUAGE PATHOLOGIST Ot J30.9 ALLERGIC RHINITIS, UNSPECIFIED 07/22/2016 MADL, ANGEL L SOFTWARE APPLICATIONS DESIGNER Ot Z12.31 ENCNTR SCREEN MAMMOGRAM FOR MALIGNANT NE 07/27/2016 JAYY JIANG PEDIATRIC SPEECH LANGUAGE PATHOLOGIST Ot D12.6 BENIGN NEOPLASM OF COLON, UNSPECIFIED 07/27/2016 JAYY JIANG PEDIATRIC SPEECH LANGUAGE PATHOLOGIST Ot E66.9 OBESITY, UNSPECIFIED 07/27/2016 JAYY JIANG PEDIATRIC SPEECH LANGUAGE PATHOLOGIST Ot F41.9 ANXIETY DISORDER, UNSPECIFIED 07/27/2016 JAYY JIANG PEDIATRIC SPEECH LANGUAGE PATHOLOGIST Ot G47.33 OBSTRUCTIVE SLEEP APNEA (ADULT) (PEDIATR 07/27/2016 JAYY JIANG PEDIATRIC SPEECH LANGUAGE PATHOLOGIST Ot J30.9 ALLERGIC RHINITIS, UNSPECIFIED 08/04/2016 MADL, ANGEL L SOFTWARE APPLICATIONS DESIGNER Ot Z12.31 ENCNTR SCREEN MAMMOGRAM FOR MALIGNANT [...] SAUER Ot I25.10 ATHSCL HEART DISEASE OF [place] CORONARY 10/08/2016 JOSE ANGEL SAUER Ot 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 10/08/2016 JOSE ANGEL SAUER Ot R06.02 SHORTNESS OF BREATH 10/22/2016 JOSE ANGEL SAUER Ot I10 ESSENTIAL (PRIMARY) HYPERTENSION 10/22/2016 JOSE ANGEL SAUER Ot I25.10 ATHSCL HEART DISEASE OF [place] CORONARY 10/22/2016 JOSE ANGEL SAUER Ot I65.23 [...] KNEE JOINT REPLACEMENT STATUS 04/18/2017 TAYLOR KUHN PEDIATRIC SPEECH LANGUAGE PATHOLOGIST Ot V76.12 OTH SCREEN MAMMO-MALIGN NEOPLASM OF ELA 04/18/2017 TAYLOR KUHN PEDIATRIC SPEECH LANGUAGE PATHOLOGIST Ot 793.89 OTH (ABN) FINDINGS ON RADIOLOGICAL EXAMI 04/18/2017 TAYLOR KUHN PEDIATRIC SPEECH LANGUAGE PATHOLOGIST Ot 793.89 OTH (ABN) FINDINGS ON RADIOLOGICAL [...] 786.50 CHEST PAIN NOS 04/18/2017 HELIO WILEY PEDIATRIC SPEECH LANGUAGE PATHOLOGIST Ot R92.8 OTH ABN AND INCONCLUSIVE FINDINGS ON DX 04/18/2017 DAVID SMYTH DO Ot Z01.818 ENCOUNTER FOR OTHER PREPROCEDURAL EXAMIN 04/18/2017 JED SAINZ DO Ot I25.10 ATHSCL HEART DISEASE OF [place] CORONARY 04/18/2017 JED SAINZ DO Ot R06.00 [...] SAUER Ot I25.10 ATHSCL HEART DISEASE OF [place] CORONARY 04/18/2017 JOSE ANGEL SAUER Ot I65.23 [...] KNEE JOINT REPLACEMENT STATUS 07/22/2017 TAYLOR KUHN PEDIATRIC SPEECH LANGUAGE PATHOLOGIST Ot V76.12 OTH SCREEN MAMMO-MALIGN NEOPLASM OF ELA 07/22/2017 TAYLOR KUHN PEDIATRIC SPEECH LANGUAGE PATHOLOGIST Ot 793.89 OTH (ABN) FINDINGS ON RADIOLOGICAL EXAMI 07/22/2017 TAYLOR KUHN PEDIATRIC SPEECH LANGUAGE PATHOLOGIST Ot 793.89 OTH (ABN) FINDINGS ON RADIOLOGICAL [...] 786.50 CHEST PAIN NOS 07/22/2017 HELIO WILEY PEDIATRIC SPEECH LANGUAGE PATHOLOGIST Ot R92.8 OTH ABN AND INCONCLUSIVE FINDINGS ON DX 07/22/2017 DAVID SMYTH DO Ot Z01.818 ENCOUNTER FOR OTHER PREPROCEDURAL EXAMIN 07/22/2017 JED SAINZ DO Ot I25.10 ATHSCL HEART DISEASE OF [place] CORONARY 07/22/2017 JED SAINZ DO Ot R06.00 [...] SAUER Ot I25.10 ATHSCL HEART DISEASE OF [place] CORONARY 07/22/2017 JOSE ANGEL SAUER Ot 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 07/22/2017 JOSE ANGEL SAUER Ot R06.02 SHORTNESS OF BREATH 07/22/2017 WILFRIDO FISHER MD Ot E11.628 TYPE 2 DIABETES MELLITUS WITH OTHER SKIN 07/22/2017 WILFRIDO FISHER MD Ot L03.031 CELLULITIS OF RIGHT TOE 07/22/2017 WILFRIDO FISHER MD Ot S90.211A CONTUSION OF RIGHT GREAT TOE W DAMAGE TO 07/25/2017 ANGEL RIDLEY SOFTWARE APPLICATIONS DESIGNER Ot Z12.31 ENCNTR SCREEN MAMMOGRAM FOR MALIGNANT NE 08/12/2017 DULCE MARIALANGEL SOFTWARE APPLICATIONS DESIGNER Ot Z12.31 ENCNTR SCREEN MAMMOGRAM FOR MALIGNANT NE 08/26/2017 ANGEL RIDLEY SOFTWARE APPLICATIONS DESIGNER Ot Z12.31 ENCNTR SCREEN MAMMOGRAM FOR MALIGNANT [...] DO Ot I25.10 ATHSCL HEART DISEASE OF [place] CORONARY 10/05/2017 JED SAINZ DO Ot R06.00 DYSPNEA, UNSPECIFIED 10/05/2017 JED ASINZ DO Ot E27.9 DISORDER OF ADRENAL GLAND, [...] BENIGN NEOPLASM OF COLON, UNSPECIFIED 10/05/2017 JAYY JINAG APRN Ot E66.9 OBESITY, UNSPECIFIED 10/05/2017 JAYY [...] SAUER Ot I25.10 ATHSCL HEART DISEASE OF [place] CORONARY 10/05/2017 JOSE ANGEL SAUER Ot I65.23 [...] Procedures Code Description [place] [address] INDIV PSYTX 45/50 MIN 04/26/2012 23418 ROUTINE VENIPUNCTURE 05/31/2012 22045 INDIV PSYTX 45/50 MIN 05/31/2012 49080 A1C (IN-HOUSE) 05/31/2012 64348 BMP 05/31/2012 8437006 GFR CALC (RESULT ONLY) 05/31/2012 00623 MAGNESIUM 05/31/2012 99312 A1C (IN-HOUSE) 09/12/2012 47198 MICRO ALBUMIN-IN HOUSE 09/12/2012 95747 MICROALBUMIN 09/12/2012 68415 PSYTX PT&/FAMILY 45 MINUTES 10/06/2012 14901 PSYTX PT&/FAMILY 45 MINUTES 11/29/2012 72928 A1C (IN-HOUSE) 02/21/2013 12240 PSYTX PT&/FAMILY 45 MINUTES 03/06/2013 51334 ROUTINE VENIPUNCTURE 03/23/2013 63977 TSH 03/23/2013 05111 UA LONG DIP 03/23/2013 53465 MICRO ALBUMIN-IN HOUSE 03/23/2013 24084 CBC 03/23/2013 11372 LIPID PANEL 03/23/2013 G0008 FLU ADMINISTRATION ( MEDICARE ONLY) 03/23/2013 79248 CMP 03/23/2013 5979971 GFR CALC (RESULT ONLY) 03/23/2013 59007 A1C (IN-HOUSE) 05/25/2013 91838 A1C (IN-HOUSE) 09/03/2013 09730 XRAY KNEE LEFT, 1 OR 2 VIEWS 11/09/2013 27460 A1C (IN-HOUSE) 12/07/2013 28135 ROUTINE VENIPUNCTURE 02/19/2014 05398 CBC 02/19/2014 29915 CMP 02/19/2014 85002 LIPID PANEL 02/19/2014 3717386 GFR CALC (RESULT ONLY) 02/19/2014 99882 A1C (IN-HOUSE) 03/13/2014 39080 MICRO ALBUMIN-IN HOUSE 03/13/2014 15328 MICROALBUMIN 03/13/2014 67250 UA W/ CULTURE IF INDICATED 04/15/2014 32488 UA LONG DIP 04/22/2014 60296 MAMMOGRAM DX, LEFT 05/09/2014 41979 UA W/ CULTURE IF INDICATED 05/09/2014 76005 MAMMOGRAM, SCREENING 05/15/2014 65755 A1C (IN-HOUSE) 06/28/2014 04650 XRAY SHOULDER LEFT COMP 2 VIEWS 09/13/2014 41298 MICROALBUMIN 09/13/2014 42553 MICRO ALBUMIN-IN HOUSE 09/13/2014 51460 UA LONG DIP 10/11/2014 Results Test Result Range [id number] - 06/07/16 08:48 Serum or plasma urea [...] 10.1 fL 7.5-12.5 ABSOLUTE NEUTROPHILS 6300 cells/uL 4083-8498 ABSOLUTE LYMPHOCYTES 2920 cells/uL 850-3900 ABSOLUTE MONOCYTES [...] 10.7 fL 7.5-12.5 ABSOLUTE NEUTROPHILS 6445 cells/uL 8329-3462 ABSOLUTE LYMPHOCYTES 3191 cells/uL 850-3900 ABSOLUTE MONOCYTES 721 cells/uL 200-950 ABSOLUTE EOSINOPHILS 170 cells/uL 15-500 ABSOLUTE BASOPHILS 74 cells/uL 0-200 NEUTROPHILS 60.8 % NRG LYMPHOCYTES 30.1 % NRG MONOCYTES 6.8 % NRG EOSINOPHILS 1.6 % NRG BASOPHILS 0.7 % NRG Encounters ACCT No. Visit Date/Time Discharge Status Pt. Type Provider Facility Loc./Unit Complaint [id number] 10/11/2014 11:21:00 10/11/2014 23:59:59 [facility] Outpatient BOOGIE ARAUJO APRN [id number] 09/13/2014 11:52:00 09/13/2014 23:59:59 [facility] Outpatient BOOGIE ARAUJO APRN [id number] 06/28/2014 09:46:00 06/28/2014 23:59:59 [facility] Outpatient BOOGIE ARAUJO APRN [id number] 05/15/2014 12:18:00 05/15/2014 23:59:59 [facility] Outpatient TAYLOR KUHN APRN [id number] 05/09/2014 10:22:00 05/09/2014 23:59:59 [facility] Outpatient TAYLOR KUHN APRN [id number] 05/09/2014 10:22:00 05/09/2014 23:59:59 [facility] Outpatient TAYLOR KUHN APRN [id number] 04/22/2014 09:29:00 04/22/2014 23:59:59 [facility] Outpatient BOOGIE ARAUJO APRN [id number] 04/15/2014 09:53:00 04/15/2014 23:59:59 [facility] Outpatient BOOGIE ARAUJO APRN [id number] 04/12/2014 09:27:00 04/12/2014 23:59:59 [facility] Outpatient BOOGIE ARAUJO APRN [id number] 03/13/2014 10:04:00 03/13/2014 23:59:59 [facility] Outpatient BOOGIE ARAUJO APRN [id number] 02/19/2014 08:25:00 02/19/2014 23:59:59 [facility] Outpatient BOOGIE ARAUJO APRN [id number] 12/07/2013 09:31:00 12/07/2013 23:59:59 [facility] Outpatient BOOGIE ARAUJO APRN [id number] 12/07/2013 09:31:00 12/07/2013 23:59:59 [facility] Outpatient BOOGIE ARAUJO APRN [id number] 11/09/2013 15:34:00 11/09/2013 23:59:59 CLS Outpatient LAURA HINKLE MD [id number] 11/09/2013 15:34:00 11/09/2013 23:59:59 [facility] Outpatient BOOGIE ARAUJO APRN [id number] 09/03/2013 08:58:00 09/03/2013 23:59:59 [facility] Outpatient BOOGIE ARAUJO APRN [id number] 09/03/2013 08:58:00 09/03/2013 23:59:59 [facility] Outpatient BOOGIE ARAUJO APRN [id number] 08/08/2013 14:24:00 08/08/2013 23:59:59 [facility] Outpatient BOOGIE ARAUJO APRN [id number] 08/01/2013 15:32:00 08/01/2013 23:59:59 [facility] Outpatient BOOGIE ARAUJO APRN [id number] 05/25/2013 09:26:00 05/25/2013 23:59:59 CLS Outpatient LAURA HINKLE MD [id number] 05/25/2013 09:26:00 05/25/2013 23:59:59 CLS Outpatient LAURA HINKLE MD [id number] 04/23/2013 09:24:00 04/23/2013 23:59:59 [facility] Outpatient BOOGIE ARAUJO APRN [id number] 03/23/2013 08:44:00 03/23/2013 23:59:59 [facility] Outpatient BOOGIE ARAUJO APRN [id number] 03/23/2013 08:44:00 03/23/2013 23:59:59 CLS Outpatient DARRIUS HI DO [id number] 03/06/2013 09:25:00 03/06/2013 23:59:59 [facility] Outpatient KENN OBRIEN [id number] 09/12/2012 14:12:00 09/12/2012 23:59:59 CLS Outpatient [id number] 05/31/2012 10:34:00 05/31/2012 23:59:59 [facility] Outpatient BOOGIE ARAUJO APRN [id number] 05/31/2012 10:34:00 05/31/2012 23:59:59 CLS Outpatient [id number] 04/11/2012 13:52:00 04/11/2012 23:59:59 CLS Outpatient RO LSKENN COOPER [id number] 02/21/2013 10:30:00 Document Registration [id number] 11/23/2012 10:45:00 Document Registration [id number] 10/06/2012 10:46:00 Document Registration [id number] 09/30/2017 09:20:00 09/30/2017 23:59:59 CLS Outpatient BOOGIE ARAUJO APRN [facility] [id number] 09/30/2017 09:20:00 Document Registration [id number] 09/27/2017 15:00:00 Document Registration [id number] 09/20/2017 09:09:00 Document Registration [id number] 09/20/2017 09:00:00 Document Registration [id number] 2017 11:00:00 Document Registration [id number] 04/18/2017 12:05:00 Document Registration [id number] 08/27/2016 09:11:00 Document Registration [id number] 11/01/2017 07:53:00 11/01/2017 10:18:00 DIS Outpatient DAVID SMYTH DO [facility] ENDO DECREASED RBC'S/ANEMIA/ BLOOD IN STOOLS/CONSTIPATIO [id number] 10/25/2017 05:40:00 10/25/2017 15:16:00 DIS Outpatient DAVID SMYTH DO [facility] PREOP COLONOSCOPY/EGD [id number] 10/20/2017 13:35:00 10/20/2017 23:59:59 CLS Outpatient KAMILA MARKS [facility] ONC [id number] 07/22/2017 09:52:00 07/22/2017 23:59:59 CLS Outpatient KEYANAMORISANGELJack STATON [facility] RAD Z12.31 SCREENING BREAST EXAM [id number] 05/02/2017 09:29:00 05/02/2017 23:59:59 CLS Outpatient WILFRIDO FISHER MD [facility] WOUNDCARE [id number] 10/07/2016 08:37:00 10/07/2016 23:59:59 CLS Outpatient JOSE ANGEL SAUER [facility] CARD CAD,HTN,SOB ON EXERTION [id number] 07/21/2016 13:47:00 07/21/2016 23:59:59 CLS Outpatient ANGEL RIDLEY [facility] RAD SCREENING [id number] 07/21/2016 13:42:00 07/21/2016 23:59:59 CLS Outpatient JAYY JIANG APRN [facility] RAD JOVANY,OBESITY, ALLERGIC RHINITIS [id number] 07/07/2016 08:33:00 07/07/2016 23:59:59 CLS Outpatient JAYY JIANG APRN [facility] RAD PNEUMONI [id number] 06/23/2016 11:22:00 06/23/2016 23:59:59 CLS Outpatient JED SAINZ DO [facility] RT DYSPNEA,OBESITY [id number] 06/07/2016 08:34:00 06/07/2016 23:59:59 CLS Outpatient JED SAINZ DO [facility] RAD DYSPNEA,OBESITY [id number] 01/15/2016 19:26:00 01/16/2016 06:47:00 DIS Outpatient JAYY JIANG APRN [facility] SLEEP HYPERSOMNIA, SLEEP DISTURBANCE [id number] 11/24/2015 21:49:00 11/25/2015 07:05:00 DIS Outpatient JED SAINZ DO [facility] SLEEP JOVANY, [id number] 11/19/2015 12:06:00 11/19/2015 23:59:59 CLS Outpatient JED SAINZ DO [facility] RT DYSPNEA,CAD [id number] 07/08/2015 09:51:00 07/08/2015 12:45:00 DIS Outpatient DAVID SMYTH DO [facility] SDC SCREENING [id number] 07/01/2015 05:38:00 07/01/2015 23:59:59 CLS Outpatient DAVID SMYTH DO [facility] PREOP SCREENING [id number] 06/27/2015 08:41:00 06/27/2015 23:59:59 CLS Outpatient HELIO WILEY APRN [facility] RAD HX OF ABNORMAL MAMMO [id number] 03/19/2015 07:06:00 03/19/2015 23:59:59 CLS Outpatient JOSE ANGEL SAUER [facility] CARD CAD,DAMIAN,CP, HTN [id number] 03/17/2015 09:02:00 03/17/2015 23:59:59 CLS Outpatient JOSE ANGEL SAUER [facility] CARD CAD,DAMIAN,CP, HTN [id number] 12/23/2014 11:55:00 12/23/2014 23:59:59 CLS Outpatient TAYLOR KUHN APRN [facility] RAD FOLLOW UP [id number] 11/12/2014 15:07:00 11/12/2014 23:59:59 CLS Preadmit PAIGE BARAHONA MD [facility] REHAB [id number] 10/28/2014 10:25:00 10/28/2014 23:59:59 CLS Outpatient PAIGE BARAHONA MD [facility] RAD LEFT SHOULDER PAIN [id number] 06/26/2014 13:14:00 06/26/2014 23:59:59 CLS Outpatient TAYLOR KUHN APRN [facility] RAD ASYMMETRY LEFT BREAST [id number] 06/04/2014 08:46:00 06/04/2014 23:59:59 CLS Outpatient TAYLOR KUHN Jack DANIEL [facility] RAD ROUTINE [id number] 05/12/2014 09:58:00 05/12/2014 13:21:00 DIS Emergency JABIER ORTIZ, CARISA Meneses [facility] ER R HAND PAIN [id number] 02/27/2013 10:15:00 02/27/2013 23:59:59 CLS Outpatient ABAD ORTIZ, BOOGIE Kirby [facility] RAD PAINFUL RT TOTAL KNEE REPLACEMENT [id number] 11/08/2012 06:32:00 11/08/2012 17:10:00 DIS Outpatient LISA PAIGE MD [facility] CATH SOB,ABN STRESS,HTN,HLP, DM,OBESITY [id number] 10/31/2012 11:20:00 10/31/2012 23:59:59 CLS Outpatient LISA PAIGE MD [facility] RAD CP,HTN,HLP [id number] 10/26/2012 09:43:00 10/26/2012 23:59:59 CLS Outpatient LISA PAIGE MD [facility] CARD CP,HTN,HLP [id number] 03/16/2012 08:42:00 Document Registration [id number] 10/14/2010 10:35:00 Document Registration [id number] 09/24/2010 09:46:00 Document Registration [id number] 03/19/2015 07:08:22 ACT Document Registration
--- NOTE | 2017-11-07 16:57 | Progress Note-Post Operative ---
Post-Operative Progess Note Surgeon (s)/Hydraulic Jack Adjuster (s) Surgeon DAVID SMYTH DO Hydraulic Jack Adjuster: Dr. Ross Pre-Operative Diagnosis cholelithiasis, ruq abdominal pain Post-Operative Diagnosis same Procedure & Operative Findings Date of Procedure 11/07/17 Procedure Performed/Findings lap ye c ioc Anesthesia Type general Estimated Blood Loss Estimated blood loss (mL): minimal Specimens/Packing Specimens Removed gallbladder DAVID SMYTH DO November 07, 2017 16:57
[2017-11-07] MEDS ORDERED: ACHD5005 PO (16:59)
[2017-11-07] MEDS ORDERED: GLYCOPYRROLATE 0.2 MG/ML (ROBINUL) 2 ML VIAL ONE (17:00)
[2017-11-07] MEDS ORDERED: NEOSTIGMINE 1 MG/ML 5 ML SYRINGE ONE (17:00)
--- NOTE | 2017-11-07 17:00 | Discharge Inst-Simple/Standard ---
Discharge Inst-Standard Discharge Medications New, Converted or Re-Newed RX: RX on Chart Patient Instructions/Follow Up Plan of Care/Instructions/FU: 2 weeks Jose Activity as Tolerated: No Discharge Diet: Regular Diet Other Inst to Patient Follow up Appt: Make appointment for 2 weeks. Instructions: No lifting greater than 10 pounds. No strenuous activity. May shower in 24 hours, no tub bath or soaking. Use incentive spirometer at home as directed. No Smoking Skin/Wound Care: You have special glue over incisions it will fall off on its own. Symptoms to Report: Appetite Changes, Extremity Discoloration, Numbness/Tingling, Swelling Increased , Bleeding Excessive, Eyesight Changes, Pain Increased, Urine Color Change, Constipation(Persistent), Fever over 101 degree F, Pain/Pressure in chest, Urinating Difficulty, Cough Up/Vomit Blood, Heart Beat Irreg/Pounding, Pain/ Pressure in jaw, Vaginal Bleeding Increase, Cramps in feet or legs, Lightheadedness, Pain/Pressure in shoulder, Diarrhea(Persistent), Memory Changes Suddenly, Questions/Concerns, Weight gain consecutive days, Dizziness/ Fainting, Nausea/Vomiting, Shortness of Breath, Weight gain over 2 pounds. If eyes or skin turn yellow notify physician. If questions or concerns contact your physician Or seek help at emergency department. DAVID SMYTH DO November 07, 2017 17:00
--- NOTE | 2017-11-07 18:14 | Diagnostic Imaging Report ---
INDICATION: Cholecystectomy COMPARISON: None. FINDINGS: Fluoroscopic images demonstrate normal-appearing common bile duct. IMPRESSION: Fluoroscopic time 23 seconds. Dictated by: Dictated on workstation # [id number]
[2017-11-07] MEDS ORDERED: RT-ALBUTEROL SULF 2.5 MG/3 ML PRE-MIX VIAL INH PRN (22:00)
[2017-11-07] MEDS ORDERED: inSUlin ASPART (NovoLOG) 1 UNIT/0.01 ML (CHARGE PER UNIT) SC SCH (23:15)
[2017-11-07] MEDS ORDERED: inSUlin ASPART (NovoLOG) 1 UNIT/0.01 ML (CHARGE PER UNIT) ONE (23:28)
[2017-11-07] MEDS: HYDROcodone/APAP 5 MG/325 MG (LORTAB) TAB PO PRN (23:34)
[2017-11-07] MEDS: inSUlin ASPART (NovoLOG) 1 UNIT/0.01 ML (CHARGE PER UNIT) SC SCH (23:35)
[2017-11-08 00:22] VITALS: BP 128/58
--- NOTE | 2017-11-08 03:02 | OPERATIVE REPORT ---
DATE OF SERVICE: 11/07/2017 PREOPERATIVE DIAGNOSIS: Cholelithiasis, right upper quadrant abdominal pain. POSTOPERATIVE DIAGNOSIS: Cholelithiasis, right upper quadrant abdominal pain. PROCEDURE: Laparoscopic cholecystectomy with intraoperative cholangiogram. SURGEON: Giovanni Garcia DO TORTILLA MAKER: Dr. Ross, assisted in retraction, dissection, and closure. ANESTHESIA: General. ESTIMATED BLOOD LOSS: Minimal. COMPLICATIONS: None. INDICATIONS: The patient is a 67-year-old female who began having right upper quadrant abdominal pain for the last few days. She has also been having some back pain as well and it has been going on and off for several months. She had a CT scan demonstrating cholelithiasis. She was discussed risks and benefits of procedure and wished to proceed. Consent was signed in the chart. DESCRIPTION OF PROCEDURE: The patient was taken to the operating suite and she was prepped and draped in sterile fashion. Surgical pause was performed. Breanna technique was used to enter the abdomen just above the umbilicus. A balloon trocar was inserted and pneumoperitoneum was achieved. Under direct visualization of the laparoscope, a 5 mm trocar was then placed in the subxiphoid region and two 5 mm trocars were placed in the right upper quadrant. Looked at the liver, had a little bit of fatty liver appearance. Gallbladder was grasped, elevated. A cystic duct was then dissected out along with the cystic artery, which the lymph node had to be brought down, away from the gallbladder in order to get the dissection, which was slightly enlarged. The cystic duct was then dissected around along the cystic artery and clips were placed on the proximal and distal portion of the cystic artery and a clip was placed on the proximal and the distal portion of the cystic duct. The cystic duct was then partially transected. Arrow catheter was inserted and cholangiogram was then performed. There was no filling defect visualized and contrast made its way into the duodenum without difficulty. The Arrow catheter was removed. Clips were placed on the proximal portion of the cystic duct and then the duct and artery were then transected. Hook cautery was used to dissect the gallbladder from the gallbladder fossa. A posterior branch of the cystic artery was encountered. A clip was placed on the proximal portion and cautery used to transect it. The gallbladder was continued to be removed from the gallbladder fossa achieving hemostasis. Once removed, it was placed in an Endobag and removed through the 12 mm trocar site. Copious amounts of irrigation was then irrigated and suctioned. There was also notably some slight edema around the gallbladder as it was being removed. The abdomen was then desufflated, the trocars were removed. The 12 mm fascial defect was then closed with a 0 Vicryl in a [id number] fashion. The skin was then closed using 4-0 Monocryl in subcuticular fashion. SwiftSet was then placed over the incisions after they were washed and dried. The patient tolerated procedure well without any complications. She was taken to recovery room in stable condition. Job ID: [id number] DocumentID: [id number] Dictated Date: 11/07/2017 17:20:41 Dock Loader Date: 11/08/2017 01:29:03 Dictated By: DO CHARO FULTON
[2017-11-08 04:17] VITALS: BP 137/65
[2017-11-08 04:49] LABS: MEAN PLATELET VOLUME 10.2 FL (7.4-10.4); RED BLOOD COUNT 3.78 10^6/uL (4.35-5.85); RED CELL DISTRIBUTION WIDTH 23.7 % (10.0-14.5); WHITE BLOOD COUNT 10.2 10^3/uL (4.3-11.0)
[2017-11-08 05:04] LABS: ALANINE AMINOTRANSFERASE 27 U/L (0-55); ALBUMIN 3.5 GM/DL (3.2-4.5); ALKALINE PHOSPHATASE 62 U/L (40-136); BILIRUBIN,TOTAL 0.3 MG/DL (0.1-1.0); BUN/CREATININE RATIO 13; CALCIUM 8.3 MG/DL (8.5-10.1); CARBON DIOXIDE 19 MMOL/L (21-32); CHLORIDE 112 MMOL/L (98-107); CREATININE SERUM 0.87 MG/DL (0.60-1.30); GFR ESTIMATED > 60; GLUCOSE 139 MG/DL (70-105); POTASSIUM 4.6 MMOL/L (3.6-5.0); SODIUM 141 MMOL/L (135-145); TOTAL PROTEIN 5.7 GM/DL (6.4-8.2)
[2017-11-08] MEDS: inSUlin ASPART (NovoLOG) 1 UNIT/0.01 ML (CHARGE PER UNIT) SC SCH ×4 (05:13→21:42)
[2017-11-08] MEDS: RT-ALBUTEROL SULF 2.5 MG/3 ML PRE-MIX VIAL INH SCH ×2 (07:30→19:37)
[2017-11-08 08:30] VITALS: BP 126/84
[2017-11-08] MEDS ORDERED: FUROSEMIDE 40 MG/4 ML INJ (LASIX) IVP NR (08:45)
[2017-11-08] MEDS: BACLOFEN 10 MG (LIORESAL) TAB PO SCH ×2 (09:36→20:20)
[2017-11-08] MEDS: FERROUS SULF 325 MG (IRON) TAB PO SCH ×2 (09:36→20:20)
[2017-11-08] MEDS: LORATADINE (CLARITIN) 10 MG TAB PO SCH (09:36)
[2017-11-08] MEDS: PANTOPRAZOLE 40 MG/10 ML (PROTONIX) VIAL IV SCH (09:36)
[2017-11-08] MEDS: FLUTICASONE NASAL SPRAY (FLONASE) 16 GM BTL NS SCH ×2 (09:37→20:20)
[2017-11-08] MEDS: ASPIRIN E.C. 81 MG (ECOTRIN) TAB PO SCH (09:37)
--- NOTE | 2017-11-08 10:12 | Diagnostic Imaging Report ---
INDICATION: Hypoxia. TECHNIQUE: Two view chest at 9:40 AM. CORRELATION STUDY: 07/07/2016. FINDINGS: The heart size is enlarged with the vasculature slightly increased from the prior study. Mildly prominent interstitial markings may reflect mild edema. Suggestion of minimal atelectasis at the right lung base. No significant infiltrate. Slightly accentuated thoracic kyphotic curvature and degenerative changes of the thoracic spine. IMPRESSION: Cardiac enlargement with the vasculature slightly increased from the prior study could be reflective of early fluid overload or failure. Likely minimal atelectasis at the right lung base. Dictated by: Dictated on workstation # [id number]
--- NOTE | 2017-11-08 10:44 | Consultation ([facility]) ---
HPI History of Present Illness: 67 yo female admitted with cholelithiasis, s/p cholecystectomy yesterday with post-operative hypoxia. She notes that she had nasal congestion and slight cough with some mucous production before coming to the ER. She denies fever. She uses supplemental oxygen at 2 lpm overnight with her CPAP, but not during the day. She does have a history of asthma and uses albuterol as needed. She states she is prone to pneumonia. She is feeling better this morning. She states her pain is adequately controlled to allow her to breathe deeply although she still has some pain with coughing. Source: patient Date seen by provider: November 08, 2017 Time Seen by Provider: 10:06 Attending Physician Giovanni Garcia DO PCP Rian Shepherd Consult Date of Admission November 06, 2017 at 22:30 Home Medications Home Medications Reviewed patient Home Medication Reconciliation performed by pharmacy medication reconciliations dairy lab technician and/or nursing. Patients Allergies have been reviewed. Allergies Coded Allergies: Choline Fenofibrate (Unverified Allergy, Unknown, 11/06/17) Phenylpropanolamine HCl (Unverified Allergy, Unknown, 11/08/12) amoxicillin trihydrate (Unverified Allergy, Unknown, 11/08/12) brompheniramine maleate (Unverified Allergy, Unknown, 11/08/12) buspirone HCl (Unverified Allergy, Unknown, 11/08/12) celecoxib (Unverified Allergy, Unknown, 11/08/12) hydrochlorothiazide (Unverified Allergy, Unknown, 11/08/12) meloxicam (Unverified Allergy, Unknown, 05/12/14) niacin (Unverified Allergy, Unknown, 11/08/12) potassium clavulanate (Unverified Allergy, Unknown, 11/08/12) simvastatin (Unverified Allergy, Unknown, 05/12/14) spironolactone (Unverified Allergy, Unknown, 11/08/12) Uncoded Allergies: MIXLACAM (Allergy, Unknown, 05/12/14) QPL-[id number]-Sxcrnk Hx Patient Social History Alcohol Use: Denies Use Recreational Drug Use: No (quit 2 yrs ago) Drug of Choice: pot Smoking Status: Former Smoker Type Used: Cigarettes Recent Foreign Travel: No Contact w/other who traveled: No Recent Hopitalizations: Yes (11/01/17 EGD/Colonscopy) Recent Infectious Disease Expo: No Physical Abuse Screen: No Sexual Abuse: No Immunizations Up To Date Date of Pneumonia Vaccine: Apr 10, 2011 Date of Influenza Vaccine: Apr 04, 2017 Past Medical History PMHx: DMII Asthma Chronic pain Sleep apnea on cpap with nocturnal oxygen CAD HTN PSurgHx: Bilateral knee replacement Cholecystectomy Tonsillectomy Appendectomy Hysterectomy Cardiac cath Colonoscopy Family Medical History Significant Family History: No Pertinent Family Hx Review of Systems ([facility]) Constitutional: No fever EENTM: nose congestion Respiratory: see HPI Cardiovascular: no symptoms reported Gastrointestinal: vomiting (on arrival, improved) Genitourinary: no symptoms reported Skin: no symptoms reported Psychiatric/Neurological: No Symptoms Reported Reviewed Test Results Reviewed Test Results Lab Laboratory Tests Test 11/06/17 19:20 11/06/17 19:47 11/07/17 06:55 11/07/17 17:26 Range/Units Urine Color YELLOW Urine Clarity CLEAR Urine pH 5 5-9 Urine Specific [place] 1.020 1.016-1.022 Urine Protein 2+ H NEGATIVE Urine Glucose (UA) 3+ H NEGATIVE Urine Ketones 1+ H NEGATIVE Urine Nitrite NEGATIVE NEGATIVE Urine Bilirubin NEGATIVE NEGATIVE Urine Urobilinogen NORMAL NORMAL MG/DL Urine Leukocyte Esterase 1+ H NEGATIVE Urine RBC (Auto) NEGATIVE NEGATIVE Urine RBC NONE /HPF Urine WBC 0-2 /HPF Urine Squamous Epithelial Cells 0-2 /HPF Urine Crystals PRESENT H /LPF Urine Uric Acid Crystals FEW H /LPF Urine Bacteria NONE /HPF Urine Casts NONE /LPF Urine Mucus NEGATIVE /LPF Urine Culture Indicated NO White Blood Count 13.2 H 10.4 4.3-11.0 10^3/uL Red Blood Count 4.35 3.96 L 4.35-5.85 10^6/uL Hemoglobin 10.4 L 9.5 L 11.5-16.0 G/DL Hematocrit 34 L 31 L 35-52 % Mean Corpuscular Volume 78 L 79 L 80-99 FL Mean Corpuscular Hemoglobin 24 L 24 L 25-34 PG Mean Corpuscular Hemoglobin Concent 31 L 30 L 32-36 G/DL Red Cell Distribution Width 23.6 H 22.8 H 10.0-14.5 % Platelet Count 302 286 130-400 10^3/uL Mean Platelet Volume 10.9 H 10.6 H 7.4-10.4 FL Neutrophils (%) (Auto) 87 H 83 H 42-75 % Lymphocytes (%) (Auto) 9 L 12 12-44 % Monocytes (%) (Auto) 4 5 0-12 % Eosinophils (%) (Auto) 0 0 0-10 % Basophils (%) (Auto) 0 0 0-10 % Neutrophils # (Auto) 11.5 H 8.7 H 1.8-7.8 X 10^3 Lymphocytes # (Auto) 1.1 1.2 1.0-4.0 X 10^3 Monocytes # (Auto) 0.5 0.5 0.0-1.0 X 10^3 Eosinophils # (Auto) 0.0 0.0 0.0-0.3 10^3/uL Basophils # (Auto) 0.0 0.0 0.0-0.1 10^3/uL Sodium Level 140 138 135-145 MMOL/L Potassium Level 4.8 4.7 3.6-5.0 MMOL/L Chloride Level 111 H 110 H 98-107 MMOL/L Carbon Dioxide Level 16 L 19 L 21-32 MMOL/L Anion Gap 13 9 5-14 MMOL/L Blood Urea Nitrogen 15 13 7-18 MG/DL Creatinine 1.10 1.00 0.60-1.30 MG/DL Estimat Glomerular Filtration Rate 50 56 BUN/Creatinine Ratio 14 13 Glucose Level 286 H 269 H 70-105 MG/DL Calcium Level 9.1 8.5 8.5-10.1 MG/DL Total Bilirubin 0.3 0.3 0.1-1.0 MG/DL Aspartate Amino Transf (AST/SGOT) 22 15 5-34 U/L Alanine Aminotransferase (ALT/SGPT) 26 18 0-55 U/L Alkaline Phosphatase 91 72 40-136 U/L Total Protein 7.3 6.0 L 6.4-8.2 GM/DL Albumin 4.3 3.7 3.2-4.5 GM/DL Amylase Level 55 36 25-125 U/L Lipase 28 17 8-78 U/L Glucometer 188 H 70-110 MG/DL Test 11/07/17 21:52 11/08/17 04:20 11/08/17 05:26 Range/Units Glucometer 244 H 157 H 70-110 MG/DL White Blood Count 10.2 4.3-11.0 10^3/uL Red Blood Count 3.78 L 4.35-5.85 10^6/uL Hemoglobin 9.0 L 11.5-16.0 G/DL Hematocrit 30 L 35-52 % Mean Corpuscular Volume 80 80-99 FL Mean Corpuscular Hemoglobin 24 L 25-34 PG Mean Corpuscular Hemoglobin Concent 30 L 32-36 G/DL Red Cell Distribution Width 23.7 H 10.0-14.5 % Platelet Count 269 130-400 10^3/uL Mean Platelet Volume 10.2 7.4-10.4 FL Sodium Level 141 135-145 MMOL/L Potassium Level 4.6 3.6-5.0 MMOL/L Chloride Level 112 H 98-107 MMOL/L Carbon Dioxide Level 19 L 21-32 MMOL/L Anion Gap 10 5-14 MMOL/L Blood Urea Nitrogen 11 7-18 MG/DL Creatinine 0.87 0.60-1.30 MG/DL Estimat Glomerular Filtration Rate > 60 BUN/Creatinine Ratio 13 Glucose Level 139 H 70-105 MG/DL Calcium Level 8.3 L 8.5-10.1 MG/DL Total Bilirubin 0.3 0.1-1.0 MG/DL Aspartate Amino Transf (AST/SGOT) 35 H 5-34 U/L Alanine Aminotransferase (ALT/SGPT) 27 0-55 U/L Alkaline Phosphatase 62 40-136 U/L Total Protein 5.7 L 6.4-8.2 GM/DL Albumin 3.5 3.2-4.5 GM/DL Radiology CXR 11/08: IMPRESSION: Cardiac enlargement with the vasculature slightly increased from the prior study could be reflective of early fluid overload or failure. Likely minimal atelectasis at the right lung base. Physical Exam-([facility]) Physical Exam Vital Signs VS - Last 72 Hours, by Label 11/06/17 11/06/17 11/06/17 11/07/17 19:21 22:58 23:15 00:18 Temp 97.4 98.6 Pulse 97 84 96 Resp B/P (MAP) 152/72 (98) 133/62 160/77 (104) Pulse Ox 97 99 96 O2 Delivery Room Air Room Air 11/07/17 11/07/17 11/07/17 11/07/17 02:15 04:16 06:35 08:07 Temp 98.1 98.4 97.9 97.8 Pulse 90 89 90 85 Resp 18 18 18 20 B/P (MAP) 143/72 (95) 139/70 (93) 143/74 (97) 117/56 (76) Pulse Ox 95 95 96 94 O2 Delivery Room Air Nasal Cannula Nasal Cannula Nasal Cannula O2 Flow Rate 2.00 2.00 2.00 11/07/17 11/07/17 11/07/17 11/07/17 12:08 15:20 18:10 19:57 Temp 97.9 98.1 98.4 Pulse 90 83 90 Resp 20 22 20 B/P (MAP) 132/69 (90) 153/67 (95) 128/60 (82) Pulse Ox 95 95 95 94 O2 Delivery Nasal Cannula Nasal Cannula Nasal Cannula Nasal Cannula O2 Flow Rate 2.00 2.00 2.00 2.00 11/07/17 11/07/17 11/08/17 11/08/17 20:00 21:51 00:22 04:17 Temp 97.7 97.6 Pulse 90 85 82 Resp 19 17 B/P (MAP) 128/58 (81) 137/65 (89) Pulse Ox 93 94 96 93 O2 Delivery Nasal Cannula Nasal Cannula Nasal Cannula O2 Flow Rate 5.00 2.00 2.00 FiO2 28 11/08/17 11/08/17 11/08/17 07:30 08:00 08:30 Temp 97.1 Pulse 83 Resp 18 B/P (MAP) 126/84 (98) Pulse Ox 93 93 96 O2 Delivery Nasal Cannula Nasal Cannula Nasal Cannula O2 Flow Rate 5.00 5.00 2.00 Capillary Refill : Less Than 3 Seconds General Appearance: WD/WN, no apparent distress Respiratory: normal breath sounds, rales (bilateral bases); No wheezing Cardiovascular: regular rate, rhythm, no murmur Extremities: no pedal edema Neurologic/Psychiatric: alert, normal mood/affect Skin: normal color, warm/dry Assessment/Plan Assessment/Plan (1) Cholelithiasis Status: Acute Assessment & Plan: s/p cholecystectomy, management per Dr. Garcia Qualifiers: Qualified Codes: K80.20 - Calculus of gallbladder without cholecystitis without obstruction (2) Postoperative hypoxia Status: Acute Assessment & Plan: Incentive spirometry, RT MAT protocol. CXR this am without evidence of pneumonia, suspect atelectasis and possible fluid overload. IV lasix 20 mg this am. Wean oxygen as tolerated. (3) Diabetes mellitus, type 2 Status: Chronic Assessment & Plan: Hold home oral medications, diabetic diet, sliding scale insulin as needed Qualifiers: Qualified Codes: E11.65 - Type 2 diabetes mellitus with hyperglycemia (4) Iron deficiency anemia due to chronic blood loss Status: Chronic Assessment & Plan: Reports work up with EGD/colon with gastritis and polyps, has also seen Hematology. Stable. Resume home iron. (5) Asthma Status: Chronic Assessment & Plan: No evidence of exacerbation, continue RT MAT protocol Qualifiers: Qualified Codes: J45.20 - Mild intermittent asthma, uncomplicated (6) Environmental allergies Status: Chronic Assessment & Plan: Resume home cetirizine and montelukast (7) Hypertension Status: Chronic Assessment & Plan: Blood pressure normal, hold home medications until needed Qualifiers: Qualified Codes: I10 - Essential (primary) hypertension (8) Hyperlipidemia Status: Chronic (9) GERD (gastroesophageal reflux disease) Status: Chronic Assessment & Plan: Receiving IV PPI, hold home PPI Clinical Quality Measures DVT/VTE Risk/Contraindication: Risk Factor Score Per Nursin RFS Level Per Nursing on Admit: 3=High PRADIP ISSA MD November 08, 2017 10:44 am
[2017-11-08 12:30] VITALS: BP 132/65
--- NOTE | 2017-11-08 13:14 | Anesthesia-General Post-Op ---
General Patient Condition Mental Status/LOC: Same as Preop Cardiovascular: Satisfactory Nausea/Vomiting: Absent Respiratory: Satisfactory Pain: Controlled Complications: Absent Post Op Complications Complications None Follow Up Care/Instructions Patient Instructions None needed. Anesthesia/Patient Condition Patient Condition Patient is doing well, no complaints, stable vital signs, no apparent adverse anesthesia problems. No complications reported per nursing. D/C home per [facility] Criteria: Yes PATTI SOLIMAN CRNA November 08, 2017 13:14
--- NOTE | 2017-11-08 14:22 | Progress Note ---
Subjective Date Seen by Provider: November 08, 2017 Time Seen by Provider: 13:55 Subjective/Events-last exam Patient feeling better. Pain under control. Tolerating diet. Hypoxia, but seems to be getting better. Denies n/v fever sweats chills or chest pain. Objective Exam Vital Signs Date Time Temp Pulse Resp B/P (MAP) Pulse Ox O2 Delivery O2 Flow Rate FiO2 11/08/17 08:30 97.1 83 18 126/84 (98) 96 Nasal Cannula 2.00 11/08/17 08:00 93 Nasal Cannula 5.00 11/08/17 07:30 93 Nasal Cannula 5.00 11/08/17 04:17 97.6 82 17 137/65 (89) 93 Nasal Cannula 2.00 11/08/17 00:22 97.7 85 19 128/58 (81) 96 Nasal Cannula 2.00 11/07/17 21:51 90 94 28 11/07/17 20:00 93 Nasal Cannula 5.00 11/07/17 19:57 98.4 90 20 128/60 (82) 94 Nasal Cannula 2.00 11/07/17 18:10 98.1 83 22 153/67 (95) 95 Nasal Cannula 2.00 11/07/17 15:20 95 Nasal Cannula 2.00 I & O 11/08/17 07:00 Intake Total 2810 ml Output Total 1800 ml Balance 1010 ml Capillary Refill : Less Than 3 Seconds General Appearance: No Apparent Distress HEENT: Normal ENT Inspection Neck: Normal Inspection Respiratory: No Accessory Muscle Use, No Respiratory Distress Cardiovascular: Regular Rate, Rhythm Gastrointestinal: No guarding, No rebound; tenderness (incisional pain); No hernia, No mass Extremity: Normal Inspection, Non Tender Neurologic/Psychiatric: Alert, Oriented x3, No Motor/Sensory Deficits, Normal 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/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, 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 Norm as Tested Skin: Normal Color, Warm/Dry Lymphatic: No Adenopathy Results Lab Laboratory Tests 11/07/17 17:26: Glucometer 188H 11/07/17 21:52: Glucometer 244H 11/08/17 04:20: White Blood Count 10.2, Red Blood Count 3.78L, Hemoglobin 9.0L, Hematocrit 30L, Mean Corpuscular Volume 80, Mean Corpuscular Hemoglobin 24L, Mean Corpuscular Hemoglobin Concent 30L, Red Cell Distribution Width 23.7H, Platelet Count 269, Mean Platelet Volume 10.2, Sodium Level 141, Potassium Level 4.6, Chloride Level 112H, Carbon Dioxide Level 19L, Anion Gap 10, Blood Urea Nitrogen 11, Creatinine 0.87, Estimat Glomerular Filtration Rate > 60, BUN/Creatinine Ratio 13, Glucose Level 139H, Calcium Level 8.3L, Total Bilirubin 0.3, Aspartate Amino Transf (AST/SGOT) 35H, Alanine Aminotransferase (ALT/SGPT) 27, Alkaline Phosphatase 62, Total Protein 5.7L, Albumin 3.5 11/08/17 05:26: Glucometer 157H 11/08/17 11:14: Glucometer 241H Assessment/Plan Assessment/Plan Assessment/Plan Cholelithiasis, right upper quadrant abdominal pain, intractable nausea and vomiting hypoxia. pain control diet as tolerates Dr. Banks consulted medical managment Dr. Victoria consulted per patient request. Wean o2 as tolerates Clinical Quality Measures DVT/VTE Risk/Contraindication: Risk Factor Score Per Nursin RFS Level Per Nursing on Admit: 3=High DAVID SMYTH DO November 08, 2017 14:22
--- NOTE | 2017-11-08 14:42 | Pulmonary Consultation ---
History of Present Illness History of Present Illness Date of Consultation 11/08/17 14:37 Time Seen by Provider: 14:37 Date of Admission History of Present Illness 67yo with hx of COPD presented secondary to worsening RUQ abdominal pain, nausea , and vomiting. She was found to have cholelithiasis and underwent cholecystectomy. Pt was going to be discharged today however was found to have hypoxia. I am consulted for pulmonary management. Allergies and Home Medications Allergies Coded Allergies: Choline Fenofibrate (Unverified Allergy, Unknown, 11/06/17) Phenylpropanolamine HCl (Unverified Allergy, Unknown, 11/08/12) amoxicillin trihydrate (Unverified Allergy, Unknown, 11/08/12) brompheniramine maleate (Unverified Allergy, Unknown, 11/08/12) buspirone HCl (Unverified Allergy, Unknown, 11/08/12) celecoxib (Unverified Allergy, Unknown, 11/08/12) hydrochlorothiazide (Unverified Allergy, Unknown, 11/08/12) meloxicam (Unverified Allergy, Unknown, 05/12/14) niacin (Unverified Allergy, Unknown, 11/08/12) potassium clavulanate (Unverified Allergy, Unknown, 11/08/12) simvastatin (Unverified Allergy, Unknown, 05/12/14) spironolactone (Unverified Allergy, Unknown, 11/08/12) Uncoded Allergies: MIXLACAM (Allergy, Unknown, 05/12/14) Home Medications Albuterol Sulfate 18 Gm Hfa.aer.ad, 2 PUFF INH Q6H PRN for SHORTNESS OF BREATH, (Reported) Albuterol Sulfate 2.5 Mg/3 Ml Vial.neb, 2.5 MG NEB Q6H PRN for SHORTNESS OF BREATH, (Reported) Amlodipine Besylate 10 Mg Tablet, 10 MG PO HS, (Reported) Aspirin 81 Mg Tablet.dr, 81 MG PO DAILY, (Reported) Atorvastatin Calcium 40 Mg Tablet, 40 MG PO HS, (Reported) Baclofen 20 Mg Tablet, 20 MG PO BID, (Reported) Cetirizine HCl 10 Mg Tablet, 10 MG PO DAILY, (Reported) Ferrous Sulfate 325 Mg Tablet, 325 MG PO BID, (Reported) Fluticasone Propionate 16 Gm [place].susp, 2 SPRAY NS BID, (Reported) Furosemide 20 Mg Tablet, 20 MG PO DAILY PRN for SWELLING, (Reported) Glipizide 10 Mg Tablet, 20 MG PO BID, (Reported) TAKES 2 (10MG) TABLETS Hydrocodone Bit/Acetaminophen 1 Tab Tab, 1 TAB PO Q4H PRN Prescribed by: DAVID SMYTH on 11/07/17 [id number] Hydrocodone/Acetaminophen 1 Each Tablet, 1 TAB PO TID PRN for PAIN-MODERATE, ( Reported) Liraglutide 0.6 Mg/0.1 Ml Pen.injctr, 1.2 MG SC DAILY, (Reported) Losartan Potassium 50 Mg Tablet, 50 MG PO DAILY, (Reported) Metformin HCl 500 Mg Tab.er.24h, 1,000 MG PO BID, (Reported) TAKES 2 (500MG) TABLETS Montelukast Sodium 10 Mg Tablet, 10 MG PO HS, (Reported) Pantoprazole Sodium 40 Mg Tablet.dr, 40 MG PO DAILY, (Reported) Potassium Chloride 10 Meq Tab.er.prt, 10 MEQ PO DAILY PRN for WHEN TAKING FUROSEMIDE, (Reported) Past Knahijg-Bplitm-Cmsfhs Hx Patient Social History Alcohol Use: Denies Use Recreational Drug Use: No (quit 2 yrs ago) Drug of Choice: pot Smoking Status: Former Smoker Type Used: Cigarettes Former Smoker, Quit: October 25, 2006 Recent Foreign Travel: No Contact w/Someone Who Travel: No Recent Infectious Disease Expo: No Recent Hopitalizations: Yes (11/01/17 EGD/Colonscopy) Physical Abuse: No Sexual Abuse: No Mistreated: No Fear: No Immunizations Up To Date Date of Pneumonia Vaccine: Apr 10, 2011 Date of Influenza Vaccine: Apr 04, 2017 Seasonal Allergies Seasonal Allergies: Yes Past Medical History Surgeries: Yes Hysterectomy, Orthopedic, Tonsillectomy Respiratory: Yes (HX PNEUMONIA AND ALOT OF CONGESTION FROM ALLERGIES) Asthma, Pneumonia, Sleep Apnea, COPD Currently Using CPAP: Yes Cardiac: Yes (LEAKY VALVE, ONE DOESN'T CLOSE RIGHT AND ENLARGE LEFT VENTRICLE) Coronary Artery Disease, Hypertension, Irregular Heartbeat Neurological: Yes (2016) Seizure Disorder 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 Disorders: No 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 Disorders: Denies 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 Sexually Transmitted Disease: No HIV/AIDS: No Genitourinary: Yes Bladder Infection, UTI-Chronic Gastrointestinal: Yes (DIVERTICULI, ULCER A CHILD) Gastroesophageal Reflux, Diverticulosis, Polyps, Hiatal Hernia Musculoskeletal: Yes Degenerate Disk Disease, Arthritis, Scoliosis, Chronic Back Pain Endocrine: Yes (ON VICTOZA, ORAL MEDICATIONS) Diabetes, Non-Insulin dep Are Your Blood Sugars Over 250: Yes Loss of Vision: Bilateral Hearing Impairment: Denies Cancer: No Psychosocial: No Depression Nursing Suicide Risk Score: 0 Integumentary: No Blood Disorders: Yes Adverse Reaction/Blood Tranf: No (N/A) Family Medical History No Pertinent Family Hx Review of Systems Time Seen by Provider: 14:41 Constitutional: No: Fever, Chills, Sweats, Weakness, Malaise, Other Eyes: No: Pain, Vision change, Conjunctivae inflammation, Eyelid inflammation, Other, Redness Respiratory: Cough, Dry, Shortness of breath, SOB with excertion Neurological: Weakness Exam Exam Vital Signs Date Time Temp Pulse Resp B/P (MAP) Pulse Ox O2 Delivery O2 Flow Rate FiO2 11/08/17 08:30 97.1 83 18 126/84 (98) 96 Nasal Cannula 2.00 11/08/17 08:00 93 Nasal Cannula 5.00 11/08/17 07:30 93 Nasal Cannula 5.00 11/08/17 04:17 97.6 82 17 137/65 (89) 93 Nasal Cannula 2.00 11/08/17 00:22 97.7 85 19 128/58 (81) 96 Nasal Cannula 2.00 11/07/17 21:51 90 94 28 11/07/17 20:00 93 Nasal Cannula 5.00 11/07/17 19:57 98.4 90 20 128/60 (82) 94 Nasal Cannula 2.00 11/07/17 18:10 98.1 83 22 153/67 (95) 95 Nasal Cannula 2.00 11/07/17 15:20 95 Nasal Cannula 2.00 I & O 11/08/17 07:00 Intake Total 2810 ml Output Total 1800 ml Balance 1010 ml General Appearance: No Apparent Distress HEENT: Normal ENT Inspection Neck: Normal Inspection Respiratory: No Accessory Muscle Use, No Respiratory Distress, Decreased Breath Sounds Cardiovascular: Regular Rate, Rhythm Capillary Refill: Less Than 3 Seconds Gastrointestinal: No guarding, No rebound; tenderness (incisional pain); No hernia, No mass Extremity: Normal Inspection, Non Tender Neurologic/Psychiatric: Alert, Oriented x3, No Motor/Sensory Deficits, Normal 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
[2017-11-08 16:10] VITALS: BP 134/65
[2017-11-08 19:30] VITALS: BP 150/72
[2017-11-08] MEDS ORDERED: MONTELUKAST 10 MG (SINGULAIR) TAB PO SCH (21:00)
[2017-11-08] MEDS ORDERED: ATORVASTATIN 40 MG (LIPITOR) TABLET PO SCH (21:00)
[2017-11-09 00:01] VITALS: BP 133/68
[2017-11-09 04:25] VITALS: BP 128/59
[2017-11-09] MEDS: inSUlin ASPART (NovoLOG) 1 UNIT/0.01 ML (CHARGE PER UNIT) SC SCH ×2 (06:07→12:01)
--- NOTE | 2017-11-09 07:04 | Pulmonary Progress Note ---
Subjective Time Seen by Provider: 07:03 Subjective/Events-last exam PT still requiring oxygen even at rest. Exam Exam Vital Signs Date Time Temp Pulse Resp B/P (MAP) Pulse Ox O2 Delivery O2 Flow Rate FiO2 11/09/17 04:25 97.7 85 17 128/59 (82) 96 Nasal Cannula 2.00 11/09/17 00:01 98.5 88 17 133/68 (89) 94 Nasal Cannula 2.00 11/08/17 20:00 97 Nasal Cannula 2.00 11/08/17 19:38 97 Nasal Cannula 2.00 11/08/17 19:30 98.3 82 20 150/72 (98) 96 Nasal Cannula 2.00 11/08/17 16:10 98.5 91 18 134/65 (88) 91 Nasal Cannula 2.00 11/08/17 15:27 96 Nasal Cannula 2.00 11/08/17 15:03 95 5.00 11/08/17 12:30 97.7 89 20 132/65 (87) 97 Nasal Cannula 5.00 11/08/17 08:30 97.1 83 18 126/84 (98) 96 Nasal Cannula 5.00 11/08/17 08:00 93 Nasal Cannula 5.00 11/08/17 07:30 93 Nasal Cannula 5.00 I & O 11/09/17 07:00 Intake Total 2550 ml Output Total 5000 ml Balance -2450 ml General Appearance: No Apparent Distress HEENT: Normal ENT Inspection Neck: Normal Inspection Respiratory: No Accessory Muscle Use, No Respiratory Distress, Decreased Breath Sounds Cardiovascular: Regular Rate, Rhythm Capillary Refill: Less Than 3 Seconds Gastrointestinal: No guarding, No rebound; tenderness (incisional pain); No hernia, No mass Extremity: Normal Inspection, Non Tender Neurologic/Psychiatric: Alert, Oriented x3, No Motor/Sensory Deficits, Normal 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 Pt does have oxygen at night. -I will continue to follow patient after discharge to ensure stability Metabolic acidosis -Check LA Atelectasis -IS, increase activity Cholelithiasis s/p surgery 233 JED SAINZ DO November 09, 2017 07:04
[2017-11-09] MEDS: RT-ALBUTEROL SULF 2.5 MG/3 ML PRE-MIX VIAL INH SCH (07:37)
[2017-11-09 07:58] LABS: HEMOGLOBIN 9.9 G/DL (11.5-16.0); MEAN PLATELET VOLUME 9.4 FL (7.4-10.4); RED BLOOD COUNT 4.17 10^6/uL (4.35-5.85); WHITE BLOOD COUNT 9.9 10^3/uL (4.3-11.0)
[2017-11-09 08:18] LABS: ALBUMIN 3.9 GM/DL (3.2-4.5); BILIRUBIN,TOTAL 0.4 MG/DL (0.1-1.0); CALCIUM 9.1 MG/DL (8.5-10.1); CREATININE SERUM 0.95 MG/DL (0.60-1.30); MAGNESIUM 1.9 MG/DL (1.8-2.4); PHOSPHORUS 3.2 MG/DL (2.3-4.7); POTASSIUM 4.4 MMOL/L (3.6-5.0); TOTAL PROTEIN 6.7 GM/DL (6.4-8.2)
[2017-11-09 08:34] VITALS: BP 148/80
[2017-11-09] MEDS: ASPIRIN E.C. 81 MG (ECOTRIN) TAB PO SCH (09:01)
[2017-11-09] MEDS: LORATADINE (CLARITIN) 10 MG TAB PO SCH (09:01)
[2017-11-09] MEDS: PANTOPRAZOLE 40 MG/10 ML (PROTONIX) VIAL IV SCH (09:01)
[2017-11-09] MEDS: BACLOFEN 10 MG (LIORESAL) TAB PO SCH (09:01)
[2017-11-09] MEDS: FERROUS SULF 325 MG (IRON) TAB PO SCH (09:01)
[2017-11-09] MEDS: FLUTICASONE NASAL SPRAY (FLONASE) 16 GM BTL NS SCH (09:02)
[2017-11-09] MEDS ORDERED: IOHEXOL 350 MG/ML 150 ML (OMNIPAQUE 350) VIAL IV ONE (10:30)
[2017-11-09] MEDS ORDERED: NS 250 ML (IVPB) BAG IV ONE (10:30)
--- NOTE | 2017-11-09 11:27 | Diagnostic Imaging Report ---
PROCEDURE: CT angiography of the chest with contrast. TECHNIQUE: Multiple contiguous axial images were obtained through the chest after uneventful bolus administration of intravenous contrast. Reconstructed CTA MIP acquisitions were also performed. INDICATION: Shortness of air and recent cholecystectomy. Comparison is made with CT angiogram of the chest from 06/07/2016. No axillary lymphadenopathy is detected. Right paratracheal node demonstrates short axis measurement of 10 mm compared with 14 mm on prior exam. Mildly prominent subcarinal nodes are noted, in aggregate short axis measurement of 14 mm compared with 15 mm on prior. There are small prevascular lymph nodes. No hilar lymphadenopathy is detected. Evaluation of the pulmonary arterial system is without evidence of thromboembolism. No definite filling defects identified within central, lobar or segmental branches. Thoracic aorta is normal in caliber. No dissection is seen. The heart is enlarged. There is a moderate pericardial effusion, similar to CT from May 2016. Parenchymal evaluation does show minimal dependent atelectasis in the lung bases, left greater. Minimal lingular atelectasis is present as well. No mass is identified. Mild pleural plaquing in the right base seen. Upper abdomen does show hepatic steatosis. Gallbladder surgically absent. Right adrenal nodule appears stable. IMPRESSION: 1. No evidence of pulmonary embolism or thoracic aortic dissection. 2. Stable mediastinal lymphadenopathy. 3. Moderate pericardial effusion, stable. 4. Bibasilar subsegmental atelectasis. 5. Hepatic steatosis. 6. Stable right adrenal nodule. Dictated by: Dictated on workstation # [id number]
[2017-11-09 12:37] VITALS: BP 121/82
[2017-11-09] MEDS: HYDROcodone/APAP 5 MG/325 MG (LORTAB) TAB PO PRN (15:17)
--- NOTE | 2017-11-09 15:59 | Progress Note (SOAP) ---
Subjective Subjective/Events-last exam Feeling better, hoping to go home today, but does need supplemental oxygen. Review of Systems Date Seen by Provider: November 09, 2017 Time Seen by Provider: 11:21 Focused Exam Lactate Level 11/09/17 07:46: Lactic Acid Level 1.05 Objective Exam Last Set of Vital Signs Vital Signs Date Time Temp Pulse Resp B/P (MAP) Pulse Ox O2 Delivery O2 Flow Rate FiO2 11/09/17 12:37 98.1 90 22 121/82 (95) 98 Nasal Cannula 2.00 11/07/17 21:51 28 Capillary Refill : Less Than 3 Seconds I&O Intake and Output 11/09/17 00:00 Intake Total 2650 ml Output Total 4200 ml Balance -1550 ml Intake Oral 2650 ml Output Urine Total 4200 ml # Bowel Movements 2 General: Alert, No Acute Distress Neuro: Normal Speech Psych/Mental Status: Mental Status NL Results/Procedures Lab Laboratory Tests 11/08/17 16:14: Glucometer 203H 11/08/17 21:32: Glucometer 173H 11/09/17 05:17: Glucometer 191H 11/09/17 07:46: White Blood Count 9.9, Red Blood Count 4.17L, Hemoglobin 9.9L, Hematocrit 33L, Mean Corpuscular Volume 80, Mean Corpuscular Hemoglobin 24L, Mean Corpuscular Hemoglobin Concent 30L, Red Cell Distribution Width 23.0H, Platelet Count 296, Mean Platelet Volume 9.4, Sodium Level 141, Potassium Level 4.4, Chloride Level 108H, Carbon Dioxide Level 23, Anion Gap 10, Blood Urea Nitrogen 12, Creatinine 0.95, Estimat Glomerular Filtration Rate 59, BUN/Creatinine Ratio 13, Glucose Level 190H, Lactic Acid Level 1.05, Calcium Level 9.1, Phosphorus Level 3.2, Magnesium Level 1.9, Total Bilirubin 0.4, Aspartate Amino Transf (AST/SGOT) 39H , Alanine Aminotransferase (ALT/SGPT) 31, Alkaline Phosphatase 74, B-Type Natriuretic Peptide 29.5, Total Protein 6.7, Albumin 3.9 11/09/17 10:58: Glucometer 276H Microbiology 11/07/17 MRSA Screen - Final, Complete MRSA not isolated Radiology CXR 11/08: IMPRESSION: Cardiac enlargement with the vasculature slightly increased from the prior study could be reflective of early fluid overload or failure. Likely minimal atelectasis at the right lung base. Assessment/Plan Assessment/Plan (1) Cholelithiasis Status: Acute Assessment & Plan: s/p cholecystectomy, management per Dr. Garcia Qualifiers: Qualified Codes: K80.20 - Calculus of gallbladder without cholecystitis without obstruction (2) Postoperative hypoxia Status: Acute Assessment & Plan: Incentive spirometry, RT MAT protocol. CXR this am without evidence of pneumonia, suspect atelectasis and possible fluid overload. IV lasix 20 mg this am. Wean oxygen as tolerated. 11/09 CXR with possible slightly fluid overload, Dr. Victoria consulted, CTA done today with no PE, will be going home with 2 lpm supplemental oxygen. (3) Diabetes mellitus, type 2 Status: Chronic Assessment & Plan: Hold home oral medications, diabetic diet, sliding scale insulin as needed Qualifiers: Qualified Codes: E11.65 - Type 2 diabetes mellitus with hyperglycemia (4) Iron deficiency anemia due to chronic blood loss Status: Chronic Assessment & Plan: Reports work up with EGD/colon with gastritis and polyps, has also seen Hematology. Stable. Resume home iron. (5) Asthma Status: Chronic Assessment & Plan: No evidence of exacerbation, continue RT MAT protocol Qualifiers: Qualified Codes: J45.20 - Mild intermittent asthma, uncomplicated (6) Environmental allergies Status: Chronic Assessment & Plan: Resume home cetirizine and montelukast (7) Hypertension Status: Chronic Assessment & Plan: Blood pressure normal, hold home medications until needed Qualifiers: Qualified Codes: I10 - Essential (primary) hypertension (8) Hyperlipidemia Status: Chronic (9) GERD (gastroesophageal reflux disease) Status: Chronic Assessment & Plan: Receiving IV PPI, hold home PPI Clinical Quality Measures DVT/VTE Risk/Contraindication: Risk Factor Score Per Nursin RFS Level Per Nursing on Admit: 3=High PRADIP ISSA MD November 09, 2017 3:59 pm
[2017-11-09 16:25] VITALS: BP 152/82
--- NOTE | 2017-11-09 16:40 | Progress Note ---
Subjective Date Seen by Provider: November 09, 2017 Time Seen by Provider: 08:10 Subjective/Events-last exam Patient feeling well. She's tolerating diet. Still on supplemental oxygen. Denies any nausea vomiting fever sweats chills shortness of breath or chest pain. Focused Exam Lactate Level 11/09/17 07:46: Lactic Acid Level 1.05 Objective Exam Vital Signs Date Time Temp Pulse Resp B/P (MAP) Pulse Ox O2 Delivery O2 Flow Rate FiO2 11/09/17 12:37 98.1 90 22 121/82 (95) 98 Nasal Cannula 2.00 11/09/17 08:34 97.3 84 22 148/80 (102) 94 Room Air 11/09/17 08:00 94 Nasal Cannula 2.00 11/09/17 07:38 94 Nasal Cannula 2.00 11/09/17 04:25 97.7 85 17 128/59 (82) 96 Nasal Cannula 2.00 11/09/17 00:01 98.5 88 17 133/68 (89) 94 Nasal Cannula 2.00 11/08/17 20:00 97 Nasal Cannula 2.00 11/08/17 19:38 97 Nasal Cannula 2.00 11/08/17 19:30 98.3 82 20 150/72 (98) 96 Nasal Cannula 2.00 I & O 11/09/17 07:00 Intake Total 2550 ml Output Total 5000 ml Balance -2450 ml Capillary Refill : Less Than 3 Seconds General Appearance: No Apparent Distress HEENT: Normal ENT Inspection Neck: Normal Inspection Respiratory: No Accessory Muscle Use, No Respiratory Distress, Decreased Breath Sounds Cardiovascular: Regular Rate, Rhythm Gastrointestinal: No guarding, No rebound; tenderness (incisional pain); No hernia, No mass Extremity: Normal Inspection, Non Tender Neurologic/Psychiatric: Alert, Oriented x3, No Motor/Sensory Deficits, Normal 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, 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 Norm as Tested Skin: Normal Color, Warm/Dry Lymphatic: No Adenopathy Results Lab Laboratory Tests 11/08/17 21:32: Glucometer 173H 11/09/17 05:17: Glucometer 191H 11/09/17 07:46: White Blood Count 9.9, Red Blood Count 4.17L, Hemoglobin 9.9L, Hematocrit 33L, Mean Corpuscular Volume 80, Mean Corpuscular Hemoglobin 24L, Mean Corpuscular Hemoglobin Concent 30L, Red Cell Distribution Width 23.0H, Platelet Count 296, Mean Platelet Volume 9.4, Sodium Level 141, Potassium Level 4.4, Chloride Level 108H, Carbon Dioxide Level 23, Anion Gap 10, Blood Urea Nitrogen 12, Creatinine 0.95, Estimat Glomerular Filtration Rate 59, BUN/Creatinine Ratio 13, Glucose Level 190H, Lactic Acid Level 1.05, Calcium Level 9.1, Phosphorus Level 3.2, Magnesium Level 1.9, Total Bilirubin 0.4, Aspartate Amino Transf (AST/SGOT) 39H , Alanine Aminotransferase (ALT/SGPT) 31, Alkaline Phosphatase 74, B-Type Natriuretic Peptide 29.5, Total Protein 6.7, Albumin 3.9 11/09/17 10:58: Glucometer 276H Microbiology 11/07/17 MRSA Screen - Final, Complete MRSA not isolated Assessment/Plan Assessment/Plan Assessment/Plan Cholelithiasis, right upper quadrant abdominal pain, intractable nausea and vomiting hypoxia. pain control diet as tolerates Dr. Banks consulted medical managment Dr. Victoria consulted per patient request. Patient has CTA today which was negative for PE. Patient to go home on supplemental oxygen Clinical Quality Measures DVT/VTE Risk/Contraindication: Risk Factor Score Per Nursin RFS Level Per Nursing on Admit: 3=High DAVID SMYTH DO November 09, 2017 16:40
[2017-11-09 16:45] VITALS: BP 152/82
[2017-11-10] MEDS ORDERED: PANTOPRAZOLE 40 MG (PROTONIX) TAB PO SCH (07:00)
--- OUTSIDE RECORDS SUMMARY | 2017-11-10 11:31 | XMS REPORT | Continuity of Care Document ---
Author Author [facility] Address Unknown Phone Unavailable Allergies Active [...] tablet Drug Allergy 09/12/2012 Yes amoxicillin trihydrate [id number] Drug Allergy Unknown N/A 11/08/2012 Yes brompheniramine maleate [id number] Drug Allergy Unknown N/A 11/08/2012 Yes buspirone HCl [id number] Drug Allergy Unknown N/A 11/08/2012 Yes celecoxib [id number] Drug Allergy Unknown N/A 11/08/2012 Yes Choline Fenofibrate [id number] Drug Allergy Unknown N/A 11/08/2012 Yes hydrochlorothiazide [id number] Drug Allergy Unknown N/A 11/08/2012 Yes niacin [id number] Drug Allergy Unknown N/A 11/08/2012 Yes Phenylpropanolamine HCl [id number] Drug Allergy Unknown N/A 11/08/2012 Yes potassium clavulanate [id number] Drug Allergy Unknown N/A 11/08/2012 Yes spironolactone [id number] Drug Allergy Unknown N/A 11/08/2012 Yes meloxicam [id number] Drug Allergy Unknown N/A 05/12/2014 Yes MIXLACAM MIXLACAM Unknown N/A 05/12/2014 Yes simvastatin [id number] Drug Allergy Unknown N/A 05/12/2014 Medications There is no data. Problems Date Dx Coded Attending Type Code Diagnosis Diagnosed By 01/11/2008 BOOGIE ARAUJO APRN 780.79 lethargy 01/11/2008 780.79 lethargy 01/11/2008 780.79 Lethargy 01/11/2008 780.79 Lethargy 01/11/2008 780.79 Lethargy 01/11/2008 780.79 Lethargy 01/11/2008 [facility], KENN Margarita 780.79 Lethargy 01/11/2008 [...] BOOGIE ARAUJO APRN 780.79 Lethargy 01/11/2008 [facility], KENN R 780.79 lethargy 01/23/2008 BOOGIE ARAUJO [...] MULTI-VESSEL 01/23/2008 719.46 Patellofemoral Syndrome Right 01/23/2008 [facility], KENN R 250.02 Diabetes Mellitus Poorly Controlled 01/23/2008 [facility], KENN R 414.01 CORONARY ARTERY STENOSIS MULTI-VESSEL 01/23/2008 [facility], KENN R 719.46 Patellofemoral Syndrome Right 01/23/2008 BOOGIE ARAUJO APRN 250.02 Diabetes Mellitus Poorly Controlled 01/23/2008 BOOGIE ARAUJO APRN 414.01 CORONARY ARTERY STENOSIS MULTI-VESSEL 01/23/2008 BOOGIE ARAUJO APRN 719.46 Patellofemoral Syndrome Right 01/23/2008 DARRIUS IH DO 250.02 Diabetes Mellitus Poorly Controlled 01/23/2008 [...] APRN 719.46 Patellofemoral Syndrome Right 01/23/2008 BAM BROADCAST [employer]PERATIONS ENGINEER, TAYLOR A 250.02 Diabetes Mellitus Poorly Controlled 01/23/2008 BAM BROADCAST OPERATIONS ENGINEER, TAYLOR A 414.01 CORONARY ARTERY STENOSIS MULTI-VESSEL 01/23/2008 BAM BROADCAST OPERATIONS ENGINEER, TAYLOR A 719.46 Patellofemoral Syndrome Right 01/23/2008 BAM BROADCAST OPERATIONS ENGINEER, TAYLOR A 250.02 Diabetes Mellitus Poorly Controlled 01/23/2008 BAM BROADCAST OPERATIONS ENGINEER, TAYLOR A 414.01 CORONARY ARTERY STENOSIS MULTI-VESSEL 01/23/2008 BAM BROADCAST OPERATIONS ENGINEER, TAYLOR A 719.46 Patellofemoral Syndrome Right 01/23/2008 [...] ARAUJO APRN 719.46 Patellofemoral Syndrome Right [facility]/23/2008 [facility] 250.02 Diabetes Mellitus Poorly Controlled 01/23/2008 [facility] 414.01 CORONARY ARTERY STENOSIS MULTI-VESSEL 01/23/2008 [facility], KENN R 719.46 PATELLOFEMORAL SYNDROME RIGHT 02/02/2008 BOOGEI ARAUJO APRN 465.9 ECHO VIRUS UPPER RESPIRATORY 02/02/2008 465.9 ECHO VIRUS UPPER RESPIRATORY 02/02/2008 465.9 Echo Virus Upper Respiratory 02/02/2008 465.9 Echo Virus Upper Respiratory 02/02/2008 465.9 Echo Virus Upper Respiratory 02/02/2008 465.9 Echo Virus Upper Respiratory 02/02/2008 [facility], KENN R 465.9 Echo Virus Upper Respiratory 02/02/2008 GAYLE REIDN, BOOGIE T 465.9 Echo Virus Upper Respiratory 02/02/2008 DARRIUS HI DO 465.9 Echo Virus Upper Respiratory 02/02/2008 AGYLE BROADCAST OPERATIONS ENGINEER, BOOGIE T 465.9 Echo Virus Upper Respiratory 02/02/2008 LAURA HINKLE MD 465.9 Echo Virus Upper Respiratory 02/02/2008 LAURA HINKLE MD 465.9 Echo Virus Upper Respiratory 02/02/2008 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, BOOGIE T 465.9 Echo Virus Upper Respiratory 02/02/2008 GAYLE REIDN, BOOGIE T 465.9 Echo Virus Upper Respiratory 02/02/2008 GAYLE REIDN, BOOGIE T 465.9 Echo Virus Upper Respiratory 02/02/2008 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, BOOGIE T 465.9 Echo Virus Upper Respiratory 02/02/2008 LAURA HINKLE MD 465.9 Echo Virus Upper Respiratory 02/02/2008 GAYLE REIDN, BOOGIE T 465.9 Echo Virus Upper Respiratory 02/02/2008 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, BOOGIE T 465.9 Echo Virus Upper Respiratory 02/02/2008 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, BOOGIE T 465.9 Echo Virus Upper Respiratory 02/02/2008 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, BOOGIE T 465.9 Echo Virus Upper Respiratory 02/02/2008 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, BOOGIE T 465.9 Echo Virus Upper Respiratory 02/02/2008 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, BOOGIE T 465.9 Echo Virus Upper Respiratory 02/02/2008 GAYLE REIDN, BOOGIE T 465.9 Echo Virus Upper Respiratory 02/02/2008 GAYLE REIDN, BOOGIE T 465.9 Echo Virus Upper Respiratory 02/02/2008 BAM BROADCAST OPERATIONS ENGINEER, TAYLOR A 465.9 Echo Virus Upper Respiratory 02/02/2008 BAM BROADCAST OPERATIONS ENGINEER, TAYLOR A 465.9 Echo Virus Upper Respiratory 02/02/2008 BAM BROADCAST OPERATIONS ENGINEER, TAYLOR A 465.9 Echo Virus Upper Respiratory 02/02/2008 GAYLE REIDN, BOOGIE T 465.9 Echo Virus Upper Respiratory 02/02/2008 GAYLE REIDN, BOOGIE T 465.9 Echo Virus Upper Respiratory 02/02/2008 GAYLE REIDN, BOOGIE T 465.9 Echo Virus Upper Respiratory 02/02/2008 [facility], KENN R 465.9 ECHO VIRUS [...] UNSPECIFIED 02/09/2008 401.1 ESSENTIAL HYPERTENSION BENIGN 02/09/2008 [facility], KENN R 272.1 HYPERTRIGLYCERIDEMIA 02/09/2008 [facility], KENN R 272.4 HYPERLIPIDEMIA UNSPECIFIED 02/09/2008 [facility] 401.1 ESSENTIAL HYPERTENSION BENIGN [...] MD 401.1 ESSENTIAL HYPERTENSION BENIGN 02/09/2008 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, BOOGIE T 272.1 HYPERTRIGLYCERIDEMIA 02/09/2008 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BOOGIE T 272.4 HYPERLIPIDEMIA UNSPECIFIED 02/09/2008 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, BOOGIE T 401.1 ESSENTIAL HYPERTENSION BENIGN 02/09/2008 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, BOOGIE T 272.1 HYPERTRIGLYCERIDEMIA 02/09/2008 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, BOOGIE T 272.4 HYPERLIPIDEMIA UNSPECIFIED 02/09/2008 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 BOOGIE T 401.1 ESSENTIAL HYPERTENSION BENIGN 02/09/2008 GAYLE REIDN BOOGIE T 272.1 HYPERTRIGLYCERIDEMIA 02/09/2008 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, BOOGIE T 272.4 HYPERLIPIDEMIA UNSPECIFIED 02/09/2008 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, BOOGIE T 401.1 ESSENTIAL HYPERTENSION BENIGN 02/09/2008 [...] BOOGIE T 272.4 HYPERLIPIDEMIA UNSPECIFIED 02/09/2008 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 BOOGIE T 401.1 ESSENTIAL HYPERTENSION BENIGN 02/09/2008 BOOGIE ARAUJO APRN T 272.1 HYPERTRIGLYCERIDEMIA 02/09/2008 BOOGIE ARAUJO APRN T 272.4 HYPERLIPIDEMIA UNSPECIFIED 02/09/2008 GAYLE DANIEL BOOGIE T 401.1 ESSENTIAL HYPERTENSION BENIGN 02/09/2008 GAYLE DANIEL BOOGIE T 272.1 HYPERTRIGLYCERIDEMIA 02/09/2008 BOOGIE ARAUJO APRN T 272.4 HYPERLIPIDEMIA UNSPECIFIED 02/09/2008 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, BOOGIE T 401.1 ESSENTIAL HYPERTENSION BENIGN 02/09/2008 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, BOOGIE T 272.1 HYPERTRIGLYCERIDEMIA 02/09/2008 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, BOOGIE T 272.4 HYPERLIPIDEMIA UNSPECIFIED 02/09/2008 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, BOOGIE T 401.1 ESSENTIAL HYPERTENSION BENIGN 02/09/2008 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, BOOGIE T 272.1 HYPERTRIGLYCERIDEMIA 02/09/2008 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, BOOGIE T 272.4 HYPERLIPIDEMIA UNSPECIFIED 02/09/2008 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, BOOGIE T 401.1 ESSENTIAL HYPERTENSION BENIGN 02/09/2008 GAYLE REIDN, BOOGIE T 272.1 HYPERTRIGLYCERIDEMIA 02/09/2008 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, BOOGIE T 272.4 HYPERLIPIDEMIA UNSPECIFIED 02/09/2008 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, BOOGIE T 401.1 ESSENTIAL HYPERTENSION BENIGN 02/09/2008 BAMKIN REIDN, TAYLOR A 272.1 HYPERTRIGLYCERIDEMIA 02/09/2008 BAM BROADCAST OPERATIONS ENGINEER, TAYLOR A 272.4 HYPERLIPIDEMIA UNSPECIFIED 02/09/2008 BAM BROADCAST OPERATIONS ENGINEER, TAYLOR A 401.1 ESSENTIAL HYPERTENSION BENIGN 02/09/2008 BAM BROADCAST OPERATIONS ENGINEER, TAYLOR A 272.1 HYPERTRIGLYCERIDEMIA 02/09/2008 BAM BROADCAST OPERATIONS ENGINEER, TAYLOR A 272.4 HYPERLIPIDEMIA UNSPECIFIED 02/09/2008 BAM BROADCAST OPERATIONS ENGINEER, TAYLOR A 401.1 ESSENTIAL HYPERTENSION BENIGN 02/09/2008 BAMKIN REIDN, TAYLOR A 272.1 HYPERTRIGLYCERIDEMIA 02/09/2008 BAM BROADCAST OPERATIONS ENGINEER, TAYLOR A 272.4 HYPERLIPIDEMIA UNSPECIFIED 02/09/2008 BAM BROADCAST OPERATIONS ENGINEER, TAYLOR A 401.1 ESSENTIAL HYPERTENSION BENIGN 02/09/2008 BOOGIE ARAUJO APRN T 272.1 HYPERTRIGLYCERIDEMIA 02/09/2008 BOOGIE ARAUJO APRN T 272.4 HYPERLIPIDEMIA UNSPECIFIED 02/09/2008 GAYLE REIDN BOOGIE T 401.1 ESSENTIAL HYPERTENSION BENIGN 02/09/2008 GAYLE REIDN BOOGIE T 272.1 HYPERTRIGLYCERIDEMIA 02/09/2008 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 BOOGIE T 272.4 HYPERLIPIDEMIA UNSPECIFIED 02/09/2008 GAYLE REIDNBOOGIE T 401.1 ESSENTIAL HYPERTENSION BENIGN 02/09/2008 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 BOOGIE T 272.1 HYPERTRIGLYCERIDEMIA 02/09/2008 BOOGIE ARAUJO APRN T 272.4 HYPERLIPIDEMIA UNSPECIFIED 02/09/2008 BOOGIE ARAUJO APRN T 401.1 ESSENTIAL HYPERTENSION BENIGN 02/09/2008 [facility], KENN R 272.1 HYPERTRIGLYCERIDEMIA 02/09/2008 [facility], KENN R 272.4 HYPERLIPIDEMIA UNSPECIFIED 02/09/2008 [facility], KENN R 401.1 ESSENTIAL HYPERTENSION BENIGN 03/25/2008 BOOGIE ARAUJO APRN 724.3 Sciatica 03/25/2008 724.3 Sciatica 03/25/2008 724.3 Sciatica 03/25/2008 724.3 Sciatica 03/25/2008 724.3 Sciatica 03/25/2008 724.3 Sciatica 03/25/2008 [facility], KENN R 724.3 Sciatica 03/25/2008 [...] 03/25/2008 BOOGIE ARAUJO APRN 724.3 Sciatica 03/25/2008 [facility], [place]ENN R 724.3 Sciatica 05/22/2008 BOOGIE ARAUJO APRN V72.31 Routine Gynecological Examination 05/22/2008 V72.31 Routine Gynecological Examination 05/22/2008 V72.31 Routine Gynecological Examination 05/22/2008 V72.31 Routine Gynecological Examination 05/22/2008 V72.31 Routine Gynecological Examination 05/22/2008 V72.31 Routine Gynecological Examination 05/22/2008 [facility], KENN R V72.31 Routine Gynecological [...] APRN V72.31 Routine Gynecological Examination 05/22/2008 BAM BROADCAST OPERATIONS ENGINEER, TAYLOR A V72.31 Routine Gynecological Examination 05/22/2008 BAM BROADCAST OPERATIONS ENGINEER, TAYLOR A V72.31 Routine Gynecological Examination 05/22/2008 BAM BROADCAST OPERATIONS ENGINEER, TAYLOR A V72.31 Routine Gynecological Examination 05/22/2008 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, BOOGIE T V72.31 Routine Gynecological Examination 05/22/2008 GAYLE REIDN, BOOGIE T V72.31 Routine Gynecological Examination 05/22/2008 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, BOOGIE T V72.31 Routine Gynecological Examination 05/22/2008 [facility], KENN R V72.31 Routine Gynecological Examination 07/10/2008 GAYLE REIDN, BOOGIE T 786.2 Cough 07/10/2008 786.2 Cough 07/10/2008 786.2 Cough 07/10/2008 786.2 Cough 07/10/2008 786.2 Cough 07/10/2008 786.2 Cough 07/10/2008 [facility], KENN R 786.2 Cough 07/10/2008 GAYLE REIDN, BOOGIE T 786.2 Cough 07/10/2008 DARRIUS HI DO 786.2 Cough 07/10/2008 GAYLE REIDN, BOOGIE T 786.2 Cough 07/10/2008 LAURA HINKLE MD 786.2 Cough 07/10/2008 LAURA HINKLE MD 786.2 Cough 07/10/2008 GAYLE REIDN, BOOGIE T 786.2 Cough 07/10/2008 GAYLE REIDN, BOOGIE T 786.2 Cough 07/10/2008 GAYLE REIDN, BOOGIE T 786.2 Cough 07/10/2008 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, BOOGIE T 786.2 Cough 07/10/2008 LAURA HINKLE MD 786.2 Cough 07/10/2008 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, BOOGIE T 786.2 Cough 07/10/2008 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, BOOGIE T 786.2 Cough 07/10/2008 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, BOOGIE T 786.2 Cough 07/10/2008 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, BOOGIE T 786.2 Cough 07/10/2008 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, BOOGIE T 786.2 Cough 07/10/2008 GAYLE REIDN, BOOGIE T 786.2 Cough 07/10/2008 GALYE REIDN, BOOGIE T 786.2 Cough 07/10/2008 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, BOOGIE T 786.2 Cough 07/10/2008 BAM REIDN, TAYLOR A 786.2 Cough 07/10/2008 BAM REIDN, TAYLOR A 786.2 Cough 07/10/2008 BAM BROADCAST OPERATIONS ENGINEER, TAYLOR A 786.2 Cough 07/10/2008 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, BOOGIE T 786.2 Cough 07/10/2008 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, BOOGIE T 786.2 Cough 07/10/2008 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, BOOGIE T 786.2 Cough 07/10/2008 [facility], KENN R 786.2 Cough 07/25/2008 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, BOOGIE T 250.00 DIABETES MELLITUS 07/25/2008 250.00 DIABETES MELLITUS 07/25/2008 250.00 DIABETES MELLITUS 07/25/2008 250.00 DIABETES MELLITUS 07/25/2008 250.00 DIABETES MELLITUS 07/25/2008 250.00 DIABETES MELLITUS 07/25/2008 [facility], [place]ENN R 250.00 DIABETES MELLITUS 07/25/2008 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, BOOGIE T 250.00 DIABETES MELLITUS 07/25/2008 DARRIUS HI DO 250.00 DIABETES MELLITUS 07/25/2008 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, BOOGIE T 250.00 DIABETES MELLITUS 07/25/2008 LAURA [...] BOOGIE T 250.00 DIABETES MELLITUS 07/25/2008 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, BOOGIE T 250.00 DIABETES MELLITUS 07/25/2008 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, BOOGIE T 250.00 DIABETES MELLITUS 07/25/2008 GAYLE REIDN, BOOGIE T 250.00 DIABETES MELLITUS 07/25/2008 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, BOOGIE T 250.00 DIABETES MELLITUS 07/25/2008 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, BOOGIE T 250.00 DIABETES MELLITUS 07/25/2008 BAM BROADCAST OPERATIONS ENGINEER, TAYLOR A 250.00 DIABETES MELLITUS 07/25/2008 BAM BROADCAST OPERATIONS ENGINEER, TAYLOR A 250.00 DIABETES MELLITUS 07/25/2008 BAM BROADCAST OPERATIONS ENGINEER, TAYLOR A 250.00 DIABETES MELLITUS 07/25/2008 BOOGIE ARAUJO APRN 250.00 DIABETES MELLITUS 07/25/2008 BOOGIE ARAUJO APRN 250.00 DIABETES MELLITUS 07/25/2008 BOOGIE ARAUJO APRN 250.00 DIABETES MELLITUS 07/25/2008 [facility], KENN R 250.00 DIABETES MELLITUS 10/26/2008 BOOGIE ARAUJO APRN T 110.5 Dermatophytosis Tinea Corporis 10/26/2008 110.5 Dermatophytosis Tinea Corporis 10/26/2008 110.5 Dermatophytosis Tinea Corporis 10/26/2008 110.5 Dermatophytosis Tinea Corporis 10/26/2008 110.5 Dermatophytosis Tinea Corporis 10/26/2008 110.5 Dermatophytosis Tinea Corporis 10/26/2008 [facility], [place]ENN R 110.5 Dermatophytosis Tinea Corporis 10/26/2008 BOOGIE ARAUJO APRN 110.5 Dermatophytosis Tinea Corporis 10/26/2008 DARRIUS IH DO 110.5 Dermatophytosis Tinea Corporis 10/26/2008 BOOGIE [...] APRN 110.5 Dermatophytosis Tinea Corporis 10/26/2008 BAM BROADCAST OPERATIONS ENGINEER, TAYLOR A 110.5 Dermatophytosis Tinea Corporis 10/26/2008 BAM BROADCAST OPERATIONS ENGINEER, TAYLOR A 110.5 Dermatophytosis Tinea Corporis 10/26/2008 BAM APRN, TAYLOR A 110.5 Dermatophytosis Tinea Corporis 10/26/2008 BOOGIE ARAUJO APRN 110.5 Dermatophytosis Tinea Corporis 10/26/2008 BOOGIE ARAUJO APRN 110.5 Dermatophytosis Tinea Corporis 10/26/2008 BOOGIE ARAUJO APRN 110.5 Dermatophytosis Tinea Corporis [facility]/26/[facility] 110.5 Dermatophytosis Tinea Corporis 11/28/2008 BOOGIE ARAUJO APRN 381.81 Dysfunction Of Eustachian Tube 11/28/2008 381.81 Dysfunction Of Eustachian Tube 11/28/2008 381.81 Dysfunction Of Eustachian Tube 11/28/2008 381.81 Dysfunction Of Eustachian Tube 11/28/2008 381.81 Dysfunction Of Eustachian Tube 11/28/2008 381.81 Dysfunction Of Eustachian Tube 11/28/2008 [facility], KENN R 381.81 Dysfunction Of Eustachian Tube [...] 381.81 Dysfunction Of Eustachian Tube 11/28/2008 [facility], KENN Avila 381.81 Dysfunction Of Eustachian Tube 01/25/2009 BOOGIE ARAUJO APRN 681.11 Onychia And Paronychia Of Toe 01/25/2009 681.11 Onychia And Paronychia Of Toe 01/25/2009 681.11 Onychia And Paronychia Of Toe 01/25/2009 681.11 Onychia And Paronychia Of Toe 01/25/2009 681.11 Onychia And Paronychia Of Toe 01/25/2009 681.11 Onychia And Paronychia Of Toe 01/25/2009 [facility], KENN Avila 681.11 Onychia And Paronychia Of [...] 681.11 Onychia And Paronychia Of Toe 01/25/2009 [facility], KENN Avila 681.11 Onychia And [...] Symptom] 08/06/2009 786.05 Shortness Of Breath 08/06/2009 [facility], KENN R 780.60 Fever [as Symptom] 08/06/2009 [facility], [place]ENN R 786.05 Shortness Of Breath 08/06/2009 BOOGIE ARAUJO APRN 780.60 Fever [as Symptom] 08/06/2009 BOOGIE ARAUJO APRN 786.05 Shortness Of Breath 08/06/2009 HI DOLAURAA K 780.60 Fever [as Symptom] 08/06/2009 HI DO DARRIUS K 786.05 Shortness Of Breath 08/06/2009 BOOGIE ARAUJO APRN 780.60 Fever [as Symptom] 08/06/2009 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, BOOGIE T 786.05 Shortness Of Breath 08/06/2009 [...] T 786.05 Shortness Of Breath 08/06/2009 BAM BROADCAST OPERATIONS ENGINEER, TAYLOR A 780.60 Fever [as Symptom] 08/06/2009 BAM BROADCAST OPERATIONS ENGINEER, TAYLOR A 786.05 Shortness Of Breath 08/06/2009 BAM BROADCAST OPERATIONS ENGINEER, TAYLOR A 780.60 Fever [as Symptom] 08/06/2009 BAM BROADCAST OPERATIONS ENGINEER, TAYLOR A 786.05 Shortness Of Breath 08/06/2009 BAM BROADCAST OPERATIONS ENGINEER, TAYLOR A 780.60 Fever [as Symptom] 08/06/2009 BAM BROADCAST OPERATIONS ENGINEER, TAYLOR A 786.05 Shortness Of Breath 08/06/2009 GAYLE DANIEL, BOOGIE T 780.60 Fever [as Symptom] 08/06/2009 BOOGIE ARAUJO APRN T 786.05 Shortness Of Breath 08/06/2009 BOOGIE ARAUJO APRN T 780.60 Fever [as Symptom] 08/06/2009 BOOGIE ARAUJO APRN T 786.05 Shortness Of Breath 08/06/2009 GAYLE DANIEL, BOOGIE T 780.60 Fever [as Symptom] 08/06/2009 BOOGIE ARAUJO APRN T 786.05 Shortness Of Breath 08/06/2009 [facility], KENN R 780.60 Fever [as Symptom] 08/06/2009 [facility], [place]ENN R 786.05 Shortness Of Breath 08/13/2009 BOOGIE ARAUJO APRN 480.0 Pneumonia Due To Adenovirus 08/13/2009 480.0 Pneumonia Due To Adenovirus 08/13/2009 480.0 Pneumonia Due To Adenovirus 08/13/2009 480.0 Pneumonia Due To Adenovirus 08/13/2009 480.0 Pneumonia Due To Adenovirus 08/13/2009 480.0 Pneumonia Due To Adenovirus 08/13/2009 [facility], [place] R 480.0 Pneumonia Due To Adenovirus 08/13/2009 BOOGIE ARAUJO APRN 480.0 Pneumonia Due To Adenovirus 08/13/2009 DARRIUS HI DO 480.0 Pneumonia Due To Adenovirus 08/13/2009 BOOGIE ARAUJO APRN 480.0 Pneumonia Due To Adenovirus 08/13/2009 LAURA HINKLE MD 480.0 Pneumonia Due To Adenovirus 08/13/2009 LAURA HINKLE MD 480.0 Pneumonia Due To Adenovirus 08/13/2009 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, BOOGIE T 480.0 Pneumonia Due To Adenovirus 08/13/2009 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, BOOGIE T 480.0 Pneumonia Due To Adenovirus 08/13/2009 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, BOOGIE T 480.0 Pneumonia Due To Adenovirus 08/13/2009 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, BOOGIE T 480.0 Pneumonia Due To Adenovirus 08/13/2009 LAURA HINKLE MD 480.0 Pneumonia Due To Adenovirus 08/13/2009 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, BOOGIE T 480.0 Pneumonia Due To Adenovirus 08/13/2009 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, BOOGIE T 480.0 Pneumonia Due To Adenovirus 08/13/2009 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, BOOGIE T 480.0 Pneumonia Due To Adenovirus 08/13/2009 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, BOOGIE T 480.0 Pneumonia Due To Adenovirus 08/13/2009 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, BOOGIE T 480.0 Pneumonia Due To Adenovirus 08/13/2009 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, BOOGIE T 480.0 Pneumonia Due To Adenovirus 08/13/2009 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, BOOGIE T 480.0 Pneumonia Due To Adenovirus 08/13/2009 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, BOOGIE T 480.0 Pneumonia Due To Adenovirus 08/13/2009 BAM BROADCAST OPERATIONS ENGINEER, TAYLOR A 480.0 Pneumonia Due To Adenovirus 08/13/2009 BAM BROADCAST OPERATIONS ENGINEER, TAYLOR A 480.0 Pneumonia Due To Adenovirus 08/13/2009 BAM BROADCAST OPERATIONS ENGINEER, TAYLOR A 480.0 Pneumonia Due To Adenovirus 08/13/2009 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, BOOGIE T 480.0 Pneumonia Due To Adenovirus 08/13/2009 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, BOOGIE T 480.0 Pneumonia Due To Adenovirus 08/13/2009 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, BOOGIE T 480.0 Pneumonia Due To Adenovirus 08/13/2009 [facility], KENN R 480.0 Pneumonia Due [...] Joint Pain, Localized 10/17/2009 787.91 Diarrhea 10/17/2009 [facility], KENN R 719.40 Joint Pain, Localized 10/17/2009 [facility], KENN R 787.91 Diarrhea 10/17/2009 [...] BOOGIE ARAUJO APRN T 787.91 Diarrhea 10/17/2009 BOOIGE ARAUJO APRN T 719.40 Joint Pain, Localized 10/17/2009 BOOGIE ARAUJO APRN T 787.91 Diarrhea 10/17/2009 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, BOOGIE T 719.40 Joint Pain, Localized 10/17/2009 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, BOOGIE T 787.91 Diarrhea 10/17/2009 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, BOOGIE T 719.40 Joint Pain, Localized 10/17/2009 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, BOOGIE T 787.91 Diarrhea 10/17/2009 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, BOOGIE T 719.40 Joint Pain, Localized 10/17/2009 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, BOOGIE T 787.91 Diarrhea 10/17/2009 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, BOOGIE T 719.40 Joint Pain, Localized 10/17/2009 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, BOOGIE T 787.91 Diarrhea 10/17/2009 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, BOOGIE T 719.40 Joint Pain, Localized 10/17/2009 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, BOOGIE T 787.91 Diarrhea 10/17/2009 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, BOOGIE T 719.40 Joint Pain, Localized 10/17/2009 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, BOOGIE T 787.91 Diarrhea 10/17/2009 BAM [employer], TAYLOR A 719.40 Joint Pain, Localized 10/17/2009 BAM [employer] ENGINEER, TAYLOR A 787.91 Diarrhea 10/17/2009 BAM [employer]INEER, TAYLOR A 719.40 Joint Pain, Localized 10/17/2009 BAM [employer]INEER, TAYLOR A 787.91 Diarrhea 10/17/2009 BAM [employer], TAYLOR A 719.40 Joint Pain, Localized 10/17/2009 BAM [employer]ER, TAYLOR A 787.91 Diarrhea 10/17/2009 GAYLE REIDNBOOGIE T 719.40 Joint Pain, Localized 10/17/2009 GAYEL [employer] ENGINEER, BOOGIE T 787.91 Diarrhea 10/17/2009 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, BOOGIE T 719.40 Joint Pain, Localized 10/17/2009 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, BOOGIE T 787.91 Diarrhea 10/17/2009 GAYLE REIDN, BOOGIE T 719.40 Joint Pain, Localized 10/17/2009 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, BOOGIE T 787.91 Diarrhea 10/17/2009 [facility], KENN R 719.40 Joint Pain, Localized 10/17/2009 [facility], KENN R 787.91 Diarrhea 11/20/2009 BOOGIE ARAUJO APRN T 692.9 Dermatitis Contact Unspecified 11/20/2009 692.9 Dermatitis Contact Unspecified 11/20/2009 692.9 Dermatitis Contact Unspecified 11/20/2009 692.9 Dermatitis Contact Unspecified 11/20/2009 692.9 Dermatitis Contact Unspecified 11/20/2009 692.9 Dermatitis Contact Unspecified 11/20/2009 [facility], KENN Avila 692.9 Dermatitis Contact [...] ARAUJO APRN 692.9 Dermatitis Contact Unspecified 11/20/2009 [facility], KENN R 692.9 Dermatitis Contact [...] Stress 01/15/2010 790.29 Other Abnormal Glucose 01/15/2010 [facility], KENN R 296.90 Mood Disorder 01/15/2010 [facility], KENN R 300.00 ANXIETY UNSPEC 01/15/2010 [facility], KENN R 308.3 Other Acute Reactions To Stress 01/15/2010 [facility], KENN R 790.29 Other Abnormal Glucose 01/15/2010 BOOGIE AARUJO APRN 296.90 Mood Disorder 01/15/2010 BOOGIE ARAUJO APRN 300.00 ANXIETY UNSPEC 01/15/2010 BOOGIE ARAUJO APRN 308.3 Other Acute Reactions To Stress 01/15/2010 BOOGIE ARAUJO APRN 790.29 Other Abnormal Glucose 01/15/2010 HI DO, DARRUIS K 296.90 Mood Disorder 01/15/2010 HI DO, [...] T 790.29 Other Abnormal Glucose 01/15/2010 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, 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 T 296.90 Mood Disorder 01/15/2010 BOOGIE [...] TAYLOR A 296.90 Mood Disorder 01/15/2010 BAM BROADCAST OPERATIONS ENGINEER, TAYLOR A 300.00 ANXIETY UNSPEC 01/15/2010 BAM BROADCAST OPERATIONS ENGINEER, TAYLOR A 308.3 Other Acute Reactions To Stress 01/15/2010 BAM BROADCAST OPERATIONS ENGINEER, TAYLOR A 790.29 Other Abnormal Glucose 01/15/2010 BAM 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 OPERATIONS ENGINEER, TAYLOR A 296.90 Mood Disorder 01/15/2010 BAM BROADCAST OPERATIONS ENGINEER, TAYLOR A 300.00 ANXIETY UNSPEC 01/15/2010 BAM 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 OPERATIONS 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, TAYLOR A 308.3 Other Acute Reactions To Stress 01/15/2010 BAM BROADCAST OPERATIONS ENGINEER, TAYLOR A 790.29 Other Abnormal Glucose 01/15/2010 BAM BROADCAST OPERATIONS ENGINEER, TAYLOR A 296.90 Mood Disorder 01/15/2010 BAM BROADCAST OPERATIONS ENGINEER, TAYLOR A 300.00 ANXIETY UNSPEC 01/15/2010 BAM BROADCAST OPERATIONS ENGINEER, TAYLOR A 308.3 Other Acute Reactions To [...] ARAUJO APRN 790.29 Other Abnormal Glucose 01/15/2010 [facility], KENN R 296.90 Mood Disorder 01/15/2010 [facility], KENN R 300.00 ANXIETY UNSPEC 01/15/2010 [facility], KENN R 308.3 Other Acute Reactions To Stress 01/15/2010 [facility], KENN R 790.29 Other Abnormal Glucose 01/23/2010 BOOGIE ARAUJO APRN 462 Pharyngitis Acute 01/23/2010 462 Pharyngitis Acute 01/23/2010 462 Pharyngitis Acute 01/23/2010 462 Pharyngitis Acute 01/23/2010 462 Pharyngitis Acute 01/23/2010 462 Pharyngitis Acute 01/23/2010 [facility], KENN R 462 Pharyngitis Acute [...] ARAUJO APRN 462 Pharyngitis Acute 01/23/2010 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, BOOGIE T 462 Pharyngitis Acute 01/23/2010 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, BOOGIE T 462 Pharyngitis Acute 01/23/2010 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, BOOGIE T 462 Pharyngitis Acute 01/23/2010 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, BOOGIE T 462 Pharyngitis Acute 01/23/2010 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, BOOGIE T 462 Pharyngitis Acute 01/23/2010 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, BOOGIE T 462 Pharyngitis Acute 01/23/2010 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, BOOGIE T 462 Pharyngitis Acute 01/23/2010 BAM BROADCAST OPERATIONS ENGINEER, TAYLOR A 462 Pharyngitis Acute 01/23/2010 BAM BROADCAST OPERATIONS ENGINEER, TAYLOR A 462 Pharyngitis Acute 01/23/2010 BAM BROADCAST OPERATIONS ENGINEER, TAYLOR A 462 Pharyngitis Acute 01/23/2010 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, BOOGIE T 462 Pharyngitis Acute 01/23/2010 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, BOOGIE T 462 Pharyngitis Acute 01/23/2010 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, BOOGIE T 462 Pharyngitis Acute 01/23/2010 [facility], KENN R 462 Pharyngitis Acute 02/11/2010 GAYLE REIDN, BOOGIE T 716.90 Arthritis/ Arthropathy, Unspecified 02/11/2010 716.90 Arthritis/ Arthropathy, Unspecified 02/11/2010 716.90 Arthritis/ Arthropathy, Unspecified 02/11/2010 716.90 Arthritis/ Arthropathy, Unspecified 02/11/2010 716.90 Arthritis/ Arthropathy, Unspecified 02/11/2010 716.90 Arthritis/ Arthropathy, Unspecified 02/11/2010 [facility], KENN R 716.90 Arthritis/ Arthropathy, Unspecified 02/11/2010 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, BOOGIE T 716.90 Arthritis/ Arthropathy, Unspecified 02/11/2010 DARRIUS HI DO 716.90 Arthritis/ Arthropathy, Unspecified 02/11/2010 GAYLE REIDN, BOOGIE T 716.90 Arthritis/ Arthropathy, Unspecified 02/11/2010 ARIN ORTIZ, LAURA 716.90 Arthritis/ Arthropathy, Unspecified 02/11/2010 ARIN ORTIZ, LAURA 716.90 Arthritis/ Arthropathy, Unspecified 02/11/2010 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, BOOGIE T 716.90 Arthritis/ Arthropathy, Unspecified 02/11/2010 [...] ARAUJO APRN 716.90 Arthritis/ Arthropathy, Unspecified 02/11/2010 [facility], KENN Avila 716.90 Arthritis/ Arthropathy, [...] MODERATE 03/26/2010 780.50 Sleep Disturbance, Unspecified 03/26/2010 [facility], KENN R 296.22 MO DEPRESSIVE SINGLE MODERATE 03/26/2010 [facility], KENN R 780.50 Sleep Disturbance, [...] MD 780.50 Sleep Disturbance, Unspecified 03/26/2010 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, BOOGIE T 296.22 MO DEPRESSIVE SINGLE MODERATE 03/26/2010 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, BOOGIE T 780.50 Sleep Disturbance, Unspecified 03/26/2010 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, BOOGIE T 296.22 MO DEPRESSIVE SINGLE MODERATE 03/26/2010 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, BOOGIE T 780.50 Sleep Disturbance, Unspecified 03/26/2010 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, BOOGIE T 296.22 MO DEPRESSIVE SINGLE MODERATE 03/26/2010 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, BOOGIE T 780.50 Sleep Disturbance, Unspecified 03/26/2010 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, BOOGIE T 296.22 MO DEPRESSIVE SINGLE MODERATE 03/26/2010 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, BOOGIE T 780.50 Sleep Disturbance, Unspecified 03/26/2010 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, BOOGIE T 296.22 MO DEPRESSIVE SINGLE MODERATE 03/26/2010 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, BOOGIE T 780.50 Sleep Disturbance, Unspecified 03/26/2010 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, BOOGIE T 296.22 MO DEPRESSIVE SINGLE MODERATE 03/26/2010 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, BOOGIE T 780.50 Sleep Disturbance, Unspecified 03/26/2010 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, BOOGIE T 296.22 MO DEPRESSIVE SINGLE MODERATE 03/26/2010 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, BOOGIE T 780.50 Sleep Disturbance, Unspecified 03/26/2010 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, BOOGIE T 296.22 MO DEPRESSIVE SINGLE MODERATE 03/26/2010 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, BOOGIE T 780.50 Sleep Disturbance, Unspecified 03/26/2010 BAM BROADCAST OPERATIONS ENGINEER, TAYLOR A 296.22 MO DEPRESSIVE SINGLE MODERATE 03/26/2010 BAM BROADCAST OPERATIONS ENGINEER, TAYLOR A 780.50 Sleep Disturbance, Unspecified 03/26/2010 BAM BROADCAST OPERATIONS ENGINEER, TAYLOR A 296.22 MO DEPRESSIVE SINGLE MODERATE 03/26/2010 BAM BROADCAST OPERATIONS ENGINEER, TAYLOR A 780.50 Sleep Disturbance, Unspecified 03/26/2010 BAM BROADCAST OPERATIONS ENGINEER, TAYLOR A 296.22 MO DEPRESSIVE SINGLE MODERATE 03/26/2010 BAM BROADCAST OPERATIONS ENGINEER, TAYLOR A 780.50 Sleep Disturbance, Unspecified 03/26/2010 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, BOOGIE T 296.22 MO DEPRESSIVE SINGLE MODERATE 03/26/2010 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, BOOGIE T 780.50 Sleep Disturbance, Unspecified 03/26/2010 GAYLE REIDN, BOOGIE T 296.22 MO DEPRESSIVE SINGLE MODERATE 03/26/2010 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, BOOGIE T 780.50 Sleep Disturbance, Unspecified 03/26/2010 BOOGIE ARAUJO APRN T 296.22 MO DEPRESSIVE SINGLE MODERATE 03/26/2010 BOOGIE ARAUJO APRN T 780.50 Sleep Disturbance, Unspecified 03/26/2010 [facility], KENN R 296.22 MO DEPRESSIVE SINGLE MODERATE 03/26/2010 [facility], KENN R 780.50 SLEEP DISTURBANCE, UNSPECIFIED 06/01/2010 BOOGIE ARAUJO APRN T 296.32 MO DEPRESSIVE RECURRENT MODERATE 06/01/2010 296.32 MO DEPRESSIVE RECURRENT MODERATE 06/01/2010 296.32 MO DEPRESSIVE RECURRENT MODERATE 06/01/2010 296.32 MO DEPRESSIVE RECURRENT MODERATE 06/01/2010 296.32 MO DEPRESSIVE RECURRENT MODERATE 06/01/2010 296.32 MO DEPRESSIVE RECURRENT MODERATE 06/01/2010 [facility], KENN R 296.32 MO DEPRESSIVE [...] 296.32 MO DEPRESSIVE RECURRENT MODERATE 06/01/2010 BAM BROADCAST OPERATIONS ENGINEER, TAYLOR A 296.32 MO DEPRESSIVE RECURRENT MODERATE 06/01/2010 BAM BROADCAST OPERATIONS ENGINEER, TAYLOR A 296.32 MO DEPRESSIVE RECURRENT MODERATE 06/01/2010 BAM BROADCAST OPERATIONS ENGINEER, TAYLOR A 296.32 MO DEPRESSIVE RECURRENT MODERATE 06/01/2010 BOOGIE ARAUJO APRN T 296.32 MO DEPRESSIVE RECURRENT MODERATE 06/01/2010 BOOGIE ARAUJO APRN 296.32 MO DEPRESSIVE RECURRENT MODERATE 06/01/2010 BOOGIE ARAUJO APRN 296.32 MO DEPRESSIVE RECURRENT MODERATE 06/01/2010 [facility], KENN R 296.32 MO DEPRESSIVE [...] Dx (3 Yrs And Above, Im) 02/19/2011 [facility], KENN R V04.81 Flu Dx [...] (3 Yrs And Above, Im) 02/19/2011 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, BOOGIE T V04.81 Flu Dx (3 Yrs And Above, Im) 02/19/2011 LAURA HINKLE MD V04.81 Flu Dx (3 Yrs And Above, Im) 02/19/2011 BOOIGE ARAUJO APRN V04.81 Flu Dx (3 Yrs [...] Dx (3 Yrs And Above, Im) 02/19/2011 [facility], KENN Avila V04.81 Flu Dx (3 Yrs And Above, Im) 02/21/2011 BOOGIE ARAUJO APRN 791.0 PROTEINURIA 02/21/2011 791.0 PROTEINURIA 02/21/2011 791.0 PROTEINURIA 02/21/2011 791.0 PROTEINURIA 02/21/2011 791.0 PROTEINURIA 02/21/2011 791.0 PROTEINURIA 02/21/2011 [facility], KENN R 791.0 PROTEINURIA 02/21/2011 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, BOOGIE T 791.0 PROTEINURIA 02/21/2011 DARRIUS HI DO 791.0 PROTEINURIA 02/21/2011 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, BOOGIE T 791.0 PROTEINURIA 02/21/2011 LAURA HINKLE MD 791.0 PROTEINURIA 02/21/2011 LAURA HINKLE MD 791.0 PROTEINURIA 02/21/2011 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, BOOGIE T 791.0 PROTEINURIA 02/21/2011 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, BOOGIE T 791.0 PROTEINURIA 02/21/2011 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, BOOGIE T 791.0 PROTEINURIA 02/21/2011 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, BOOGIE T 791.0 PROTEINURIA 02/21/2011 LAURA HINKLE MD 791.0 PROTEINURIA 02/21/2011 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, BOOGIE T 791.0 PROTEINURIA 02/21/2011 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, BOOGIE T 791.0 PROTEINURIA 02/21/2011 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, BOOGIE T 791.0 PROTEINURIA 02/21/2011 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, BOOGIE T 791.0 PROTEINURIA 02/21/2011 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, BOOGIE T 791.0 PROTEINURIA 02/21/2011 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, BOOGIE T 791.0 PROTEINURIA 02/21/2011 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, BOOGIE T 791.0 PROTEINURIA 02/21/2011 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, BOOGIE T 791.0 PROTEINURIA 02/21/2011 BAM BROADCAST OPERATIONS ENGINEER, TAYLOR A 791.0 PROTEINURIA 02/21/2011 BAM BROADCAST OPERATIONS ENGINEER, TAYLOR A 791.0 PROTEINURIA 02/21/2011 BAM BROADCAST OPERATIONS ENGINEER, TAYLOR A 791.0 PROTEINURIA 02/21/2011 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, BOOGIE T 791.0 PROTEINURIA 02/21/2011 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, BOOGIE T 791.0 PROTEINURIA 02/21/2011 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, BOOGIE T 791.0 PROTEINURIA 02/21/2011 [facility], KENN R 791.0 PROTEINURIA 08/25/2011 BOOGIE ARAUJO APRN V68.1 ISSUE OF REPEAT PRESCRIPTIONS 08/25/2011 V68.1 ISSUE OF REPEAT PRESCRIPTIONS 08/25/2011 V68.1 ISSUE OF REPEAT PRESCRIPTIONS 08/25/2011 V68.1 ISSUE OF REPEAT PRESCRIPTIONS 08/25/2011 V68.1 ISSUE OF REPEAT PRESCRIPTIONS 08/25/2011 V68.1 ISSUE OF REPEAT PRESCRIPTIONS 08/25/2011 [facility], KENN R V68.1 ISSUE OF [...] APRN V68.1 ISSUE OF REPEAT PRESCRIPTIONS 08/25/2011 [facility], KENN R V68.1 ISSUE OF [...] Dx (3 Yrs And Above, Im) 02/29/2012 [facility], KENN R V04.81 Flu Dx [...] (3 Yrs And Above, Im) 02/29/2012 BAM BROADCAST OPERATIONS ENGINEER, TAYLOR A V04.81 Flu Dx (3 Yrs And Above, Im) 02/29/2012 BAM BROADCAST OPERATIONS ENGINEER, TAYLOR A V04.81 Flu Dx (3 Yrs And Above, Im) 02/29/2012 BAM APRN, TAYLOR A V04.81 Flu Dx (3 Yrs And Above, Im) 02/29/2012 GAYLE BOOGIE DANIEL T V04.81 Flu Dx (3 Yrs And Above, Im) 02/29/2012 BOOGIE ARAUJO APRN T V04.81 Flu Dx (3 Yrs And Above, Im) 02/29/2012 BOOGIE ARAUJO APRN T V04.81 Flu Dx (3 Yrs And Above, Im) 02/29/2012 [facility], KENN R V04.81 FLU DX (3 YRS AND ABOVE, IM) 03/16/2012 Ot V43.65 KNEE JOINT REPLACEMENT STATUS 03/16/2012 Ot V54.81 AFTERCARE FOLLOWING JOINT REPLACEMENT 03/16/2012 Ot V57.1 PHYSICAL THERAPY NEC 05/31/2012 BOOGIE ARAUJO APRN 729.5 LEG PAIN 05/31/2012 729.5 LEG PAIN 05/31/2012 729.5 LEG PAIN 05/31/2012 729.5 LEG PAIN 05/31/2012 729.5 LEG PAIN 05/31/2012 729.5 LEG PAIN 05/31/2012 [facility], KENN R 729.5 LEG PAIN 05/31/2012 BOOGIE ARAUJO APRN 729.5 LEG PAIN 05/31/2012 DARRIUS HI DO 729.5 LEG PAIN 05/31/2012 BOOGIE ARAUJO APRN 729.5 LEG PAIN 05/31/2012 LAURA HINKLE MD 729.5 LEG PAIN 05/31/2012 LAURA HINKLE MD 729.5 LEG PAIN 05/31/2012 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, BOOGIE T 729.5 LEG PAIN 05/31/2012 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, BOOGIE T 729.5 LEG PAIN 05/31/2012 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, BOOGIE T 729.5 LEG PAIN 05/31/2012 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, BOOGIE T 729.5 LEG PAIN 05/31/2012 LAURA HINKLE MD 729.5 LEG PAIN 05/31/2012 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, BOOGIE T 729.5 LEG PAIN 05/31/2012 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, BOOGIE T 729.5 LEG PAIN 05/31/2012 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, BOOGIE T 729.5 LEG PAIN 05/31/2012 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, BOOGIE T 729.5 LEG PAIN 05/31/2012 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, BOOGIE T 729.5 LEG PAIN 05/31/2012 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, BOOGIE T 729.5 LEG PAIN 05/31/2012 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, BOOGIE T 729.5 LEG PAIN 05/31/2012 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, BOOGIE T 729.5 LEG PAIN 05/31/2012 BAM APRN, TAYLOR A 729.5 LEG PAIN 05/31/2012 BAM BROADCAST OPERATIONS ENGINEER, TAYLOR A 729.5 LEG PAIN 05/31/2012 BAM BROADCAST OPERATIONS ENGINEER, TAYLOR A 729.5 LEG PAIN 05/31/2012 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, BOOGIE T 729.5 LEG PAIN 05/31/2012 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, BOOGIE T 729.5 LEG PAIN 05/31/2012 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, BOOGIE T 729.5 LEG PAIN 11/08/2012 LISA PAIGE MD Ot 250.00 DIAB CON WO COMPL, TYPE II OR UNSPEC TY 11/08/2012 LISA PAIGE MD Ot 272.4 HYPERLIPIDEMIA NEC/NOS 11/08/2012 LISA PAIGE MD Ot 278.00 OBESITY, NOS 11/08/2012 LISA PAIGE MD Ot 401.9 HYPERTENSION NOS 11/08/2012 LISA PAIGE MD Ot 414.01 CORONARY ATHEROSCLEROSIS OF [place] CORON 11/08/2012 LISA PAIGE MD Ot 424.0 [...] GAYLE REIDNBOOGIE T 477.9 RHINITIS 03/23/2013 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, BOOGIE T 788.1 DYSURIA 03/23/2013 BOOGIE ARAUJO APRN T 477.9 RHINITIS 03/23/2013 BOOGIE ARAUJO APRN T 788.1 DYSURIA 03/23/2013 BOOGIE ARAUJO APRN 477.9 RHINITIS 03/23/2013 GAYLE REIDNBOOGIE T 788.1 DYSURIA 03/23/2013 GAYLE REIDNBOOGIE T 477.9 RHINITIS 03/23/2013 BOOGIE ARAUJO APRN T 788.1 DYSURIA 03/23/2013 BOOGIE ARAUJO APRN T 477.9 RHINITIS 03/23/2013 BOOGIE ARAUJO APRN T 788.1 DYSURIA 03/23/2013 BAM BROADCAST OPERATIONS ENGINEER, TAYLOR A 477.9 RHINITIS 03/23/2013 BAM BROADCAST OPERATIONS ENGINEER, TAYLOR A 788.1 DYSURIA 03/23/2013 BAM BROADCAST OPERATIONS ENGINEER, TAYLOR A 477.9 RHINITIS 03/23/2013 BAM BROADCAST OPERATIONS ENGINEER, TAYLOR A 788.1 DYSURIA 03/23/2013 BAM BROADCAST OPERATIONS ENGINEER, TAYLOR A 477.9 RHINITIS 03/23/2013 BAM BROADCAST OPERATIONS ENGINEER, TAYLOR A 788.1 DYSURIA 03/23/2013 BOOGIE ARAUJO [...] AND ABSCESS OF UNSPECIFIED SITES 08/01/2013 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, BOOGIE T 682.9 CELLULITIS AND ABSCESS OF [...] APRN, TAYLOR A 782.1 RASH 08/08/2013 BAM BROADCAST OPERATIONS ENGINEER, TAYLOR A 782.1 RASH 08/08/2013 BAM BROADCAST OPERATIONS ENGINEER, TAYLOR A 782.1 RASH 08/08/2013 GAYLE REIDN, [...] SPECIFIED COUNSELING 05/15/2014 TAYLOR KUHN APRN V72.31 MANAGER SOURCING EXAM, ROUTINE 05/15/2014 TAYLOR KUHN APRN V76.10 BREAST CANCER SCREENING 05/15/2014 BAM BROADCAST OPERATIONS ENGINEER, TAYLOR A V65.49 OTHER SPECIFIED COUNSELING 05/15/2014 TAYLOR KUHN APRN V72.31 MANAGER SOURCING EXAM, ROUTINE 05/15/2014 TAYLOR KUHN APRN A V76.10 BREAST CANCER SCREENING 05/15/2014 BOOGIE ARAUJO APRN V65.49 OTHER SPECIFIED COUNSELING 05/15/2014 BOOGIE ARAUJO APRN V72.31 MANAGER SOURCING EXAM, ROUTINE 05/15/2014 BOOGIE ARAUJO APRN V76.10 BREAST CANCER SCREENING 05/15/2014 BOOGIE ARAUJO APRN V65.49 OTHER SPECIFIED COUNSELING 05/15/2014 BOOGIE ARAUJO APRN V72.31 MANAGER SOURCING EXAM, ROUTINE 05/15/2014 BOOGIE ARAUJO APRN V76.10 BREAST CANCER SCREENING 05/15/2014 BOOGIE ARAUJO APRN V65.49 OTHER SPECIFIED COUNSELING 05/15/2014 BOOGIE ARAUJO APRN V72.31 MANAGER SOURCING EXAM, ROUTINE 05/15/2014 BOOGIE ARAUJO APRN V76.10 [...] ARAUJO APRN 719.41 PAIN- SHOULDER 10/11/2014 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BOOGIE V03.82 PPV23 (PNEUMOVAX) DX 12/02/2014 BROOKLYN ORTIZ, [...] ORTIZ, BOOGIE Kirby Ot V43.65 06/27/2015 BAMTAYLOR BROADCAST OPERATIONS ENGINEER Ot V76.12 06/27/2015 BAMTAYLOR BROADCAST OPERATIONS ENGINEER Ot 793.89 06/27/2015 BAMTAYLOR BROADCAST OPERATIONS ENGINEER Ot 793.89 06/27/2015 BROOKLYN ORTIZ, PAIGE R [...] ANGEL K Ot 786.50 06/30/2015 HELIO WILEY BROADCAST OPERATIONS ENGINEER Ot R92.8 07/08/2015 CHEMUNG DAVID VERDE Ot D12.3 BENIGN NEOPLASM OF TRANSVERSE COLON 07/08/2015 CHEMUNG DAVID VERDE Ot D12.5 BENIGN NEOPLASM OF SIGMOID COLON 07/08/2015 CHEMUNG DAVID VERDE Ot D12.8 BENIGN NEOPLASM OF RECTUM 07/08/2015 CHEMUNG DAVID VERDE Ot R19.7 DIARRHEA, UNSPECIFIED 07/08/2015 CHEMUNG DAVID VERDE Ot Z12.11 ENCOUNTER FOR SCREENING FOR MALIGNANT NE 07/16/2015 HELIO WILEY BROADCAST OPERATIONS ENGINEER Ot R92.8 11/19/2015 Ot 250.00 DIAB CON [...] KNEE JOINT REPLACEMENT STATUS 11/19/2015 TAYLOR KUHN BROADCAST OPERATIONS ENGINEER Ot V76.12 OTH SCREEN MAMMO-MALIGN NEOPLASM OF ELA 11/19/2015 TAYLOR KUHN BROADCAST OPERATIONS ENGINEER Ot 793.89 OTH (ABN) FINDINGS ON RADIOLOGICAL EXAMI 11/19/2015 TAYLOR KUHN BROADCAST OPERATIONS ENGINEER Ot 793.89 OTH (ABN) FINDINGS ON RADIOLOGICAL [...] DO Ot I25.10 ATHSCL HEART DISEASE OF [place] CORONARY 11/21/2015 JED SAINZ DO Ot R06.00 DYSPNEA, UNSPECIFIED 11/25/2015 JED SAINZ DO Ot G47.33 OBSTRUCTIVE SLEEP APNEA (ADULT) (PEDIATR 11/25/2015 JED SAINZ DO Ot I10 ESSENTIAL (PRIMARY) HYPERTENSION 12/04/2015 JED SAINZ DO Ot I25.10 ATHSCL HEART DISEASE OF [place] CORONARY 12/04/2015 JED SAINZ DO Ot R06.00 [...] KNEE JOINT REPLACEMENT STATUS 06/07/2016 TAYLOR KUHN BROADCAST OPERATIONS ENGINEER Ot V76.12 OTH SCREEN MAMMO-MALIGN NEOPLASM OF ELA 06/07/2016 TAYLOR KUHN BROADCAST OPERATIONS ENGINEER Ot 793.89 OTH (ABN) FINDINGS ON RADIOLOGICAL EXAMI 06/07/2016 TAYLOR KUHN BROADCAST OPERATIONS ENGINEER Ot 793.89 OTH (ABN) FINDINGS ON RADIOLOGICAL [...] OCCLUSION W O CEREBRAL IN 06/07/2016 JOSE ANGLE SAUER Ot 786.50 CHEST PAIN NOS 06/07/2016 HELIO WILEY BROADCAST OPERATIONS ENGINEER Ot R92.8 OTH ABN AND INCONCLUSIVE FINDINGS ON DX 06/07/2016 DAVID SMYTH DO Ot Z01.818 ENCOUNTER FOR OTHER PREPROCEDURAL EXAMIN 06/07/2016 JED SAINZ DO Ot I25.10 ATHSCL HEART DISEASE OF [place] CORONARY 06/07/2016 JED SAINZ DO Ot R06.00 [...] MAMMO-MALIGN NEOPLASM OF ELA 06/23/2016 TAYLOR KUHN BROADCAST OPERATIONS ENGINEER Ot 793.89 OTH (ABN) FINDINGS ON RADIOLOGICAL EXAMI 06/23/2016 TAYLOR KUHN BROADCAST OPERATIONS ENGINEER Ot 793.89 OTH (ABN) FINDINGS ON RADIOLOGICAL [...] DO Ot I25.10 ATHSCL HEART DISEASE OF [place] CORONARY 06/23/2016 JED SAINZ DO Ot R06.00 [...] OTHER FORMS OF DYSPNEA 07/20/2016 JAYY JIANG BROADCAST OPERATIONS ENGINEER Ot J18.9 PNEUMONIA, UNSPECIFIED ORGANISM 07/22/2016 MADL, ANGEL L TEMPORARY STAFF ACCOUNTANT Ot Z12.31 ENCNTR SCREEN MAMMOGRAM FOR MALIGNANT NE 07/22/2016 JAYY JIANG BROADCAST OPERATIONS ENGINEER Ot D12.6 BENIGN NEOPLASM OF COLON, UNSPECIFIED 07/22/2016 JAYY JIANG BROADCAST OPERATIONS ENGINEER Ot E66.9 OBESITY, UNSPECIFIED 07/22/2016 JAYY JIANG BROADCAST OPERATIONS ENGINEER Ot F41.9 ANXIETY DISORDER, UNSPECIFIED 07/22/2016 JAYY JIANG BROADCAST OPERATIONS ENGINEER Ot G47.33 OBSTRUCTIVE SLEEP APNEA (ADULT) (PEDIATR 07/22/2016 JAYY JIANG BROADCAST OPERATIONS ENGINEER Ot J30.9 ALLERGIC RHINITIS, UNSPECIFIED 07/22/2016 MADL, ANGEL L TEMPORARY STAFF ACCOUNTANT Ot Z12.31 ENCNTR SCREEN MAMMOGRAM FOR MALIGNANT NE 07/27/2016 JAYY JIANG BROADCAST OPERATIONS ENGINEER Ot D12.6 BENIGN NEOPLASM OF COLON, UNSPECIFIED 07/27/2016 JAYY JIANG BROADCAST OPERATIONS ENGINEER Ot E66.9 OBESITY, UNSPECIFIED 07/27/2016 JAYY JIANG BROADCAST OPERATIONS ENGINEER Ot F41.9 ANXIETY DISORDER, UNSPECIFIED 07/27/2016 JAYY JIANG BROADCAST OPERATIONS ENGINEER Ot G47.33 OBSTRUCTIVE SLEEP APNEA (ADULT) (PEDIATR 07/27/2016 JAYY JIANG BROADCAST OPERATIONS ENGINEER Ot J30.9 ALLERGIC RHINITIS, UNSPECIFIED 08/04/2016 MADL, ANGEL L TEMPORARY STAFF ACCOUNTANT Ot Z12.31 ENCNTR SCREEN MAMMOGRAM FOR MALIGNANT NE 08/10/2016 JAYY JIANG APRN Ot D12.6 BENIGN NEOPLASM OF COLON, UNSPECIFIED 08/10/2016 JAYY JIANG APRN Ot E66.9 OBESITY, UNSPECIFIED 08/10/2016 JAYY IJANG APRN Ot F41.9 ANXIETY DISORDER, UNSPECIFIED 08/10/2016 JAYY JIANG APRN Ot G47.33 OBSTRUCTIVE SLEEP APNEA (ADULT) (PEDIATR 08/10/2016 JAYY JIANG APRN Ot J30.9 ALLERGIC RHINITIS, UNSPECIFIED 10/08/2016 JOSE ANGEL SAUER Ot I10 ESSENTIAL (PRIMARY) HYPERTENSION 10/08/2016 JOSE ANGEL SAUER Ot I25.10 ATHSCL HEART DISEASE OF [place] CORONARY 10/08/2016 JOSE ANGEL SAUER Ot 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 10/08/2016 JOSE ANGEL SAUER Ot R06.02 SHORTNESS OF BREATH 10/22/2016 JOSE ANGEL SAUER Ot I10 ESSENTIAL (PRIMARY) HYPERTENSION 10/22/2016 JOSE ANGEL SAUER Ot I25.10 ATHSCL HEART DISEASE OF [place] CORONARY 10/22/2016 JOSE ANGEL SAUER Ot I65.23 [...] KNEE JOINT REPLACEMENT STATUS 04/18/2017 TAYLOR KUHN BROADCAST OPERATIONS ENGINEER Ot V76.12 OTH SCREEN MAMMO-MALIGN NEOPLASM OF ELA 04/18/2017 TAYLOR KUHN BROADCAST OPERATIONS ENGINEER Ot 793.89 OTH (ABN) FINDINGS ON RADIOLOGICAL EXAMI 04/18/2017 TAYLOR KUHN BROADCAST OPERATIONS ENGINEER Ot 793.89 OTH (ABN) FINDINGS ON RADIOLOGICAL [...] 786.50 CHEST PAIN NOS 04/18/2017 HELIO WILEY BROADCAST OPERATIONS ENGINEER Ot R92.8 OTH ABN AND INCONCLUSIVE FINDINGS ON DX 04/18/2017 DAVID SMYTH DO Ot Z01.818 ENCOUNTER FOR OTHER PREPROCEDURAL EXAMIN 04/18/2017 JED SAINZ DO Ot I25.10 ATHSCL HEART DISEASE OF [place] CORONARY 04/18/2017 JED SAINZ DO Ot R06.00 [...] SAUER Ot I25.10 ATHSCL HEART DISEASE OF [place] CORONARY 04/18/2017 JOSE ANGEL SAUER Ot I65.23 [...] KNEE JOINT REPLACEMENT STATUS 07/22/2017 TAYLOR KUHN BROADCAST OPERATIONS ENGINEER Ot V76.12 OTH SCREEN MAMMO-MALIGN NEOPLASM OF ELA 07/22/2017 TAYLOR KUHN BROADCAST OPERATIONS ENGINEER Ot 793.89 OTH (ABN) FINDINGS ON RADIOLOGICAL EXAMI 07/22/2017 TAYLOR KUHN BROADCAST OPERATIONS ENGINEER Ot 793.89 OTH (ABN) FINDINGS ON RADIOLOGICAL [...] SAUER Ot 401.9 HYPERTENSION NOS 07/22/2017 JOSE ANGLE SAUER Ot 414.00 CORON ATHEROSCLER NOS TYPE VESSEL, NATIV 07/22/2017 JOSE ANGEL SAUER Ot 433.10 CAROTID ARTERY OCCLUSION W O CEREBRAL IN 07/22/2017 JOSE ANGEL SAUER Ot 786.50 CHEST PAIN NOS 07/22/2017 HELIO WILEY BROADCAST OPERATIONS ENGINEER Ot R92.8 OTH ABN AND INCONCLUSIVE FINDINGS ON DX 07/22/2017 DAVID SMYTH DO Ot Z01.818 ENCOUNTER FOR OTHER PREPROCEDURAL EXAMIN 07/22/2017 JED SAINZ DO Ot I25.10 ATHSCL HEART DISEASE OF [place] CORONARY 07/22/2017 JED SAINZ DO Ot R06.00 [...] SAUER Ot I25.10 ATHSCL HEART DISEASE OF [place] CORONARY 07/22/2017 JOSE ANGEL SAUER Ot 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 07/22/2017 JOSE ANGEL SAUER Ot R06.02 SHORTNESS OF BREATH 07/22/2017 WILFRIDO FISHER MD Ot E11.628 TYPE 2 DIABETES MELLITUS WITH OTHER SKIN 07/22/2017 WILFRIDO FISHER MD Ot L03.031 CELLULITIS OF RIGHT TOE 07/22/2017 WILFRIDO FISHER MD Ot S90.211A CONTUSION OF RIGHT GREAT TOE W DAMAGE TO 07/25/2017 ANGEL RIDLEY TEMPORARY STAFF ACCOUNTANT Ot Z12.31 ENCNTR SCREEN MAMMOGRAM FOR MALIGNANT NE 08/12/2017 DULCE MARIALANGEL TEMPORARY STAFF ACCOUNTANT Ot Z12.31 ENCNTR SCREEN MAMMOGRAM FOR MALIGNANT NE 08/26/2017 ANGEL RIDLEY TEMPORARY STAFF ACCOUNTANT Ot Z12.31 ENCNTR SCREEN MAMMOGRAM FOR MALIGNANT [...] OTH SCREEN MAMMO-MALIGN NEOPLASM OF ELA 10/05/2017 TYALOR KUHN APRN Ot 793.89 OTH (ABN) FINDINGS [...] DO Ot I25.10 ATHSCL HEART DISEASE OF [place] CORONARY 10/05/2017 JED SAINZ DO Ot R06.00 [...] SAUER Ot I25.10 ATHSCL HEART DISEASE OF [place] CORONARY 10/05/2017 JOSE ANGEL SAUER Ot I65.23 [...] Procedures Code Description [place] [address] INDIV PSYTX 45/50 MIN 04/26/2012 [id number] ROUTINE VENIPUNCTURE 05/31/2012 77551 INDIV PSYTX 45/50 MIN 05/31/2012 07436 A1C (IN-HOUSE) 05/31/2012 44593 BMP 05/31/2012 [id number] GFR CALC (RESULT ONLY) 05/31/2012 45335 MAGNESIUM 05/31/2012 59655 A1C (IN-HOUSE) 09/12/2012 56488 MICRO ALBUMIN-IN HOUSE 09/12/2012 22772 MICROALBUMIN 09/12/2012 82236 PSYTX PT&/FAMILY 45 MINUTES 10/06/2012 04035 PSYTX PT&/FAMILY 45 MINUTES 11/29/2012 11538 A1C (IN-HOUSE) 02/21/2013 72326 PSYTX PT&/FAMILY 45 MINUTES 03/06/2013 50108 ROUTINE VENIPUNCTURE 03/23/2013 82340 TSH 03/23/2013 49859 UA LONG DIP 03/23/2013 70853 MICRO ALBUMIN-IN HOUSE 03/23/2013 49999 CBC 03/23/2013 41975 LIPID PANEL 03/23/2013 G0008 FLU ADMINISTRATION ( MEDICARE ONLY) 03/23/2013 92048 CMP 03/23/2013 [id number] GFR CALC (RESULT ONLY) 03/23/2013 49224 A1C (IN-HOUSE) 05/25/2013 46712 A1C (IN-HOUSE) 09/03/2013 91491 XRAY KNEE LEFT, 1 OR 2 VIEWS 11/09/2013 39154 A1C (IN-HOUSE) 12/07/2013 71005 ROUTINE VENIPUNCTURE 02/19/2014 20219 CBC 02/19/2014 36057 CMP 02/19/2014 71980 LIPID PANEL 02/19/2014 0450069 GFR CALC (RESULT ONLY) 02/19/2014 78238 A1C (IN-HOUSE) 03/13/2014 66500 MICRO ALBUMIN-IN HOUSE 03/13/2014 92426 MICROALBUMIN 03/13/2014 43348 UA W/ CULTURE IF INDICATED 04/15/2014 16191 UA LONG DIP 04/22/2014 56174 MAMMOGRAM DX, LEFT 05/09/2014 51520 UA W/ CULTURE IF INDICATED 05/09/2014 45150 MAMMOGRAM, SCREENING 05/15/2014 22130 A1C (IN-HOUSE) 06/28/2014 67117 XRAY SHOULDER LEFT COMP 2 VIEWS 09/13/2014 91069 MICROALBUMIN 09/13/2014 51464 MICRO ALBUMIN-IN HOUSE 09/13/2014 15322 UA LONG DIP 10/11/2014 Results Test Result Range [id number] - 06/07/16 08:48 Serum or plasma urea [...] 10.1 fL 7.5-12.5 ABSOLUTE NEUTROPHILS 6300 cells/uL 4714-1812 ABSOLUTE LYMPHOCYTES 2920 cells/uL 850-3900 ABSOLUTE MONOCYTES [...] 10.7 fL 7.5-12.5 ABSOLUTE NEUTROPHILS 6445 cells/uL 5951-6886 ABSOLUTE LYMPHOCYTES 3191 cells/uL 850-3900 ABSOLUTE MONOCYTES 721 cells/uL 200-950 ABSOLUTE EOSINOPHILS 170 cells/uL 15-500 ABSOLUTE BASOPHILS 74 cells/uL 0-200 NEUTROPHILS 60.8 % NRG LYMPHOCYTES 30.1 % NRG MONOCYTES 6.8 % NRG EOSINOPHILS 1.6 % NRG BASOPHILS 0.7 % NRG Encounters ACCT No. Visit Date/Time Discharge Status Pt. Type Provider Facility Loc./Unit Complaint [id number] 10/11/2014 11:21:00 10/11/2014 23:59:59 [facility] Outpatient BOOGIE ARAUJO APRN [id number] 09/13/2014 11:52:00 09/13/2014 23:59:59 [facility] Outpatient BOOGIE ARAUJO APRN [id number] 06/28/2014 09:46:00 06/28/2014 23:59:59 [facility] Outpatient BOOGIE ARAUJO APRN [id number] 05/15/2014 12:18:00 05/15/2014 23:59:59 [facility] Outpatient TAYLOR KUHN APRN [id number] 05/09/2014 10:22:00 05/09/2014 23:59:59 [facility] Outpatient TAYLOR KUHN APRN [id number] 05/09/2014 10:22:00 05/09/2014 23:59:59 [facility] Outpatient TAYLOR KUHN APRN [id number] 04/22/2014 09:29:00 04/22/2014 23:59:59 [facility] Outpatient BOOGIE ARAUJO APRN [id number] 04/15/2014 09:53:00 04/15/2014 23:59:59 [facility] Outpatient BOOGIE ARAUJO APRN [id number] 04/12/2014 09:27:00 04/12/2014 23:59:59 [facility] Outpatient BOOGIE ARAUJO APRN [id number] 03/13/2014 10:04:00 03/13/2014 23:59:59 [facility] Outpatient BOOGIE ARAUJO APRN [id number] 02/19/2014 08:25:00 02/19/2014 23:59:59 [facility] Outpatient BOOGIE ARAUJO APRN [id number] 12/07/2013 09:31:00 12/07/2013 23:59:59 [facility] Outpatient BOOIGE ARAUJO APRN [id number] 12/07/2013 09:31:00 12/07/2013 23:59:59 [facility] Outpatient BOOGIE ARAUJO APRN [id number] 11/09/2013 15:34:00 11/09/2013 23:59:59 [facility] Outpatient LAURA HINKLE MD [id number] 11/09/2013 15:34:00 11/09/2013 23:59:59 [facility] Outpatient BOOGIE ARAUJO APRN [id number] 09/03/2013 08:58:00 09/03/2013 23:59:59 [facility] Outpatient BOOGIE ARAUJO APRN [id number] 09/03/2013 08:58:00 09/03/2013 23:59:59 [facility] Outpatient BOOGIE ARAUJO APRN [id number] 08/08/2013 14:24:00 08/08/2013 23:59:59 [facility] Outpatient BOOGIE ARAUJO APRN [id number] 08/01/2013 15:32:00 08/01/2013 23:59:59 [facility] Outpatient BOOGIE ARAUJO APRN [id number] 05/25/2013 09:26:00 05/25/2013 23:59:59 CLS Outpatient LAURA HINKLE MD [id number] 05/25/2013 09:26:00 05/25/2013 23:59:59 [facility] Outpatient LAURA HINKLE MD [id number] 04/23/2013 09:24:00 04/23/2013 23:59:59 [facility] Outpatient BOOGIE ARAUJO APRN [id number] 03/23/2013 08:44:00 03/23/2013 23:59:59 [facility] Outpatient BOOGIE ARAUJO APRN [id number] 03/23/2013 08:44:00 03/23/2013 23:59:59 CLS Outpatient DARRIUS [place] DO [id number] 03/06/2013 09:25:00 03/06/2013 23:59:59 [facility] Outpatient KENN OBRIEN [id number] 09/12/2012 14:12:00 09/12/2012 23:59:59 [facility] Outpatient [id number] 05/31/2012 10:34:00 05/31/2012 23:59:59 [facility] Outpatient BOOGIE ARAUJO APRN [id number] 05/31/2012 10:34:00 05/31/2012 23:59:59 [facility] Outpatient [id number] 04/11/2012 13:52:00 04/11/2012 23:59:59 [facility] Outpatient RO LSKENN COOPER [id number] 02/21/2013 10:30:00 Document Registration [id number] 11/23/2012 10:45:00 Document Registration [id number] 10/06/2012 10:46:00 Document Registration [id number] 09/30/2017 09:20:00 09/30/2017 23:59:59 [facility] Outpatient BOOGIE ARAUJO APRN [facility] [id number] 09/30/2017 09:20:00 Document Registration [id number] 09/27/2017 15:00:00 Document Registration [id number] 09/20/2017 09:09:00 Document Registration [id number] 09/20/2017 09:00:00 Document Registration [id number] 2017 11:00:00 Document Registration [id number] 04/18/2017 12:05:00 Document Registration [id number] 08/27/2016 09:11:00 Document Registration [id number] 11/01/2017 07:53:00 11/01/2017 10:18:00 DIS Outpatient DAVID SMYTH DO [facility] ENDO DECREASED RBC'S/ANEMIA/ BLOOD IN STOOLS/CONSTIPATIO [id number] 10/25/2017 05:40:00 10/25/2017 15:16:00 DIS Outpatient DAVID SMYTH DO [facility] PREOP COLONOSCOPY/EGD [id number] 10/20/2017 13:35:00 10/20/2017 23:59:59 [facility] Outpatient KAMILA MARKS [facility] ONC [id number] 07/22/2017 09:52:00 07/22/2017 23:59:59 CLS Outpatient KEYANAMORISANGELJack STATON [facility] RAD Z12.31 SCREENING BREAST EXAM [id number] 05/02/2017 09:29:00 05/02/2017 23:59:59 CLS Outpatient WILFRIDO FISHER MD [facility] WOUNDCARE [id number] 10/07/2016 08:37:00 10/07/2016 23:59:59 CLS Outpatient JOSE ANGEL SAUER [facility] CARD CAD,HTN,SOB ON EXERTION [id number] 07/21/2016 13:47:00 07/21/2016 23:59:59 CLS Outpatient ANGEL RIDLEY [facility] RAD SCREENING [id number] 07/21/2016 13:42:00 07/21/2016 23:59:59 CLS Outpatient JAYY JIANG APRN [facility] RAD JOVANY,OBESITY, ALLERGIC RHINITIS [id number] 07/07/2016 08:33:00 07/07/2016 23:59:59 [facility]LS Outpatient JAYY JIANG APRN [facility] RAD PNEUMONI [id number] 06/23/2016 11:22:00 06/23/2016 23:59:59 CLS Outpatient JED SAINZ DO [facility] RT DYSPNEA,OBESITY [id number] 06/07/2016 08:34:00 06/07/2016 23:59:59 CLS Outpatient JED SAINZ DO [facility] RAD DYSPNEA,OBESITY [id number] 01/15/2016 19:26:00 01/16/2016 06:47:00 DIS Outpatient JAYY JIANG APRN [facility] SLEEP HYPERSOMNIA, SLEEP DISTURBANCE [id number] 11/24/2015 21:49:00 11/25/2015 07:05:00 DIS Outpatient JED SAINZ DO [facility] SLEEP JOVANY, [id number] 11/19/2015 12:06:00 11/19/2015 23:59:59 CLS Outpatient JED SAINZ DO [facility] RT DYSPNEA,CAD [id number] 07/08/2015 09:51:00 07/08/2015 12:45:00 DIS Outpatient DAVID SMYTH DO [facility] SDC SCREENING [id number] 07/01/2015 05:38:00 07/01/2015 23:59:59 CLS Outpatient DAVID SMYTH DO [facility] PREOP SCREENING [id number] 06/27/2015 08:41:00 06/27/2015 23:59:59 CLS Outpatient HELIO WILEY APRN [facility] RAD HX OF ABNORMAL MAMMO [id number] 03/19/2015 07:06:00 03/19/2015 23:59:59 CLS Outpatient JOSE ANGEL SAUER [facility] CARD CAD,DAMIAN,CP, HTN [id number] 03/17/2015 09:02:00 03/17/2015 23:59:59 CLS Outpatient JOSE ANGEL SAUER [facility] CARD CAD,DAMIAN,CP, HTN [id number] 12/23/2014 11:55:00 12/23/2014 23:59:59 CLS Outpatient TAYLOR KUHN APRN [facility] RAD FOLLOW UP [id number] 11/12/2014 15:07:00 11/12/2014 23:59:59 CLS Preadmit PAIGE BARAHONA MD [facility] REHAB [id number] 10/28/2014 10:25:00 10/28/2014 23:59:59 CLS Outpatient PAIGE BARAHONA MD [facility] RAD LEFT SHOULDER PAIN [id number] 06/26/2014 13:14:00 06/26/2014 23:59:59 CLS Outpatient TAYLOR KUHN APRN [facility] RAD ASYMMETRY LEFT BREAST [id number] 06/04/2014 08:46:00 06/04/2014 23:59:59 CLS Outpatient TOBY KUHNELIA Santiago APRN [facility] RAD ROUTINE [id number] 05/12/2014 09:58:00 05/12/2014 13:21:00 DIS Emergency JABIER ORTIZ, CARISA Meneses [facility] ER R HAND PAIN [id number] 02/27/2013 10:15:00 02/27/2013 23:59:59 CLS Outpatient ABAD ORTIZ, BOOGIE Kirby [facility] RAD PAINFUL RT TOTAL KNEE REPLACEMENT [id number] 11/08/2012 06:32:00 11/08/2012 17:10:00 DIS Outpatient LISA PAIGE MD [facility] CATH SOB,ABN STRESS,HTN,HLP, DM,OBESITY [id number] 10/31/2012 11:20:00 10/31/2012 23:59:59 CLS Outpatient LISA PAIGE MD [facility] RAD CP,HTN,HLP [id number] 10/26/2012 09:43:00 10/26/2012 23:59:59 CLS Outpatient LISA PAIGE MD [facility] CARD CP,HTN,HLP [id number] 11/07/2017 16:58:00 Document Registration [id number] 03/16/2012 08:42:00 Document Registration [id number] 10/14/2010 10:35:00 Document Registration [id number] 09/24/2010 09:46:00 Document Registration [id number] 03/19/2015 07:08:22 ACT Document Registration
--- NOTE | 2017-11-30 04:57 | DISCHARGE SUMMARY ---
DATE OF SERVICE: ADMITTING PHYSICIAN: Dr. Garcia. CONSULTING PHYSICIANS: Drr. Banks and Dr. Victoria ADMITTING DIAGNOSES: Cholelithiasis, right upper quadrant abdominal pain, intractable nausea and vomiting. DISCHARGE DIAGNOSES: Cholelithiasis, postoperative hypoxia, diabetes type 2, iron deficiency anemia due to chronic blood loss, asthma, environmental allergies, hypertension, hyperlipidemia, gastroesophageal reflux disease, status post cholecystectomy. HOSPITAL COURSE: The patient is a 67-year-old female who presented to the Emergency Department with right upper quadrant abdominal pain, nausea and vomiting. The patient had a CT abdomen and pelvis demonstrating cholelithiasis and mild constipation. No obstruction or acute process, and a small pericardial effusion. The patient was going to be sent home, but however, she was continued to have intractable nausea and vomiting and the patient was admitted. Since it was symptomatic cholelithiasis, she was explained risks and benefits of a laparoscopic cholecystectomy with intraoperative cholangiogram and had surgery performed on 11/07/2017. Postoperatively, the patient was having hypoxia, but continued to improve from surgical standpoint, and nausea and vomiting and other previous symptoms were resolving. The patient had a CTA performed due to the hypoxia on 11/09/2017, which demonstrated no evidence of pulmonary embolism or thoracic aortic dissection, stable mediastinal lymphadenopathy, moderate pericardial effusion, which was stable, bibasilar segmental atelectasis, hepatic steatosis, stable right adrenal nodule. The patient was remaining hypoxic; therefore she qualified for home oxygen. The patient was discharged home on 11/09/2017 on home oxygen. DISCHARGE INSTRUCTIONS: Please see computer for along with medications and follow up was arranged. Job ID: [id number] DocumentID: [id number] Dictated Date: 11/29/2017 14:45:32 Linen Checker Date: 11/30/2017 04:57:26 Dictated By: DAVID GARCIA DO
== END 2017-11-09 16:45 | disposition home or self-care (01) ==
LOC: EDUNIT# 18:05 → ER 18:08 → UNDOADMOB 22:30 → SDC 22:30 → 4TH 22:30 → UNDODISOB 11-09 16:45 → SDC 11-09 16:45
PROVIDERS: ATTEND Surgery
DX: K80.10 Calculus of gallbladder with chronic cholecystitis without obstruction (principal); J98.11 Atelectasis; R09.02 Hypoxemia; E11.9 Type 2 diabetes mellitus without complications; D50.0 Iron deficiency anemia secondary to blood loss (chronic); J45.909 Unspecified asthma, uncomplicated; I10 Essential (primary) hypertension; E78.5 Hyperlipidemia, unspecified; K21.9 Gastro-esophageal reflux disease without esophagitis; I25.10 Atherosclerotic heart disease of native coronary artery without angina pectoris; G40.909 Epilepsy, unspecified, not intractable, without status epilepticus; G47.30 Sleep apnea, unspecified; Z79.82 Long term (current) use of aspirin; Z79.84 Long term (current) use of oral hypoglycemic drugs; Z79.899 Other long term (current) drug therapy; Z87.891 Personal history of nicotine dependence
CPT/HCPCS: 36415; 71046; 71275; 74019; 74176; 80053; 81000; 82150; 82962; 83605; 83690; 83735; 83880; 84100; 85025; 85027; 87081; 88304; 94640; 94664; 94760; 94761; 96361; 96374; 96375; 96376

== ENCOUNTER 2017-11-22 10:49 | Outpatient (RCR) | payer MEDICARE, MEDICAID ==
[2017-10-20 14:07] LABS: ABSOLUTE RETIC # 70 10e9/L (24-90); BASOPHILS # (AUTO) 0.1 10^3/uL (0.0-0.1); BASOPHILS % (AUTO) 1 % (0-10); EOSINOPHILS # (AUTO) 0.1 10^3/uL (0.0-0.3); EOSINOPHILS % (AUTO) 1 % (0-10); HEMATOCRIT 29 % (35-52); HEMOGLOBIN 8.3 G/DL (11.5-16.0); LYMPHOCYTES # (AUTO) 2.6 X 10^3 (1.0-4.0); LYMPHOCYTES % (AUTO) 29 % (12-44); MEAN CORPUSCULAR HEMOGLOBIN 22 PG (25-34); MEAN CORPUSCULAR HGB CONC 29 G/DL (32-36); MEAN CORPUSCULAR VOLUME 77 FL (80-99); MEAN PLATELET VOLUME 9.8 FL (7.4-10.4); MONOCYTES # (AUTO) 0.6 X 10^3 (0.0-1.0); MONOCYTES % (AUTO) 7 % (0-12); NEUTROPHILS # (AUTO) 5.8 X 10^3 (1.8-7.8); NEUTROPHILS % (AUTO) 63 % (42-75); PLATELET COUNT 375 10^3/uL (130-400); RED BLOOD COUNT 3.79 10^6/uL (4.35-5.85); RETICULOCYTE % 1.85 % (0.50-2.40); WHITE BLOOD COUNT 9.2 10^3/uL (4.3-11.0)
[2017-10-20 14:33] LABS: ALBUMIN 3.9 GM/DL (3.2-4.5); BILIRUBIN,TOTAL 0.2 MG/DL (0.1-1.0); CALCIUM 9.1 MG/DL (8.5-10.1); CREATININE SERUM 1.08 MG/DL (0.60-1.30); POTASSIUM 4.9 MMOL/L (3.6-5.0); TOTAL PROTEIN 6.8 GM/DL (6.4-8.2)
[~2017-11-22 10:49] MED LIST changes: +ACHD5005 PO; +ALBU18HF2 INH; +ALBU2.5V4 NEB; +ASPI-983 PO; +FLUT16SP22 NS; +HYOS0.1283 SL; +LIRA0.6P3 SC; +METF500T8 PO; +ONDA4TAB8 PO
[2017-11-22 11:04] LABS: ABSOLUTE RETIC # 54 10e9/L (24-90); BASOPHILS # (AUTO) 0.1 10^3/uL (0.0-0.1); BASOPHILS % (AUTO) 1 % (0-10); EOSINOPHILS # (AUTO) 0.2 10^3/uL (0.0-0.3); EOSINOPHILS % (AUTO) 2 % (0-10); HEMATOCRIT 33 % (35-52); HEMOGLOBIN 10.1 G/DL (11.5-16.0); LYMPHOCYTES # (AUTO) 2.4 X 10^3 (1.0-4.0); LYMPHOCYTES % (AUTO) 27 % (12-44); MEAN CORPUSCULAR HEMOGLOBIN 25 PG (25-34); MEAN CORPUSCULAR HGB CONC 31 G/DL (32-36); MEAN CORPUSCULAR VOLUME 81 FL (80-99); MEAN PLATELET VOLUME 10.1 FL (7.4-10.4); MONOCYTES # (AUTO) 0.7 X 10^3 (0.0-1.0); MONOCYTES % (AUTO) 8 % (0-12); NEUTROPHILS # (AUTO) 5.6 X 10^3 (1.8-7.8); NEUTROPHILS % (AUTO) 62 % (42-75); PLATELET COUNT 326 10^3/uL (130-400); RED BLOOD COUNT 4.06 10^6/uL (4.35-5.85); RED CELL DISTRIBUTION WIDTH 20.9 % (10.0-14.5); RETICULOCYTE % 1.34 % (0.50-2.40); WHITE BLOOD COUNT 8.9 10^3/uL (4.3-11.0)
== END 2018-01-18 | disposition home or self-care (01) ==
LOC: ONC 10:49
PROVIDERS: ATTEND Internal Medicine Hematology & Oncology
DX: D50.9 Iron deficiency anemia, unspecified (principal); I25.10 Atherosclerotic heart disease of native coronary artery without angina pectoris; I10 Essential (primary) hypertension; E11.9 Type 2 diabetes mellitus without complications; E78.5 Hyperlipidemia, unspecified; G47.33 Obstructive sleep apnea (adult) (pediatric); Z79.82 Long term (current) use of aspirin; Z79.84 Long term (current) use of oral hypoglycemic drugs; Z79.899 Other long term (current) drug therapy
CPT/HCPCS: 36415; 80053; 82728; 83540; 84155; 84165; 85025; 85045; 99213; 99214

== ENCOUNTER → 2018-01-23 | Outpatient (CLI) | payer MEDICARE, MEDICAID | LOC: CARD 10:29 | PROVIDERS: ATTEND Internal Medicine Cardiovascular Disease | DX: I25.10 Atherosclerotic heart disease of native coronary artery without angina pectoris (principal); R07.89 Other chest pain; E78.00 Pure hypercholesterolemia, unspecified; R06.02 Shortness of breath; I08.1 Rheumatic disorders of both mitral and tricuspid valves | CPT/HCPCS: 93306 ==

== ENCOUNTER 2018-02-19 20:58 | Emergency (ER) | payer MEDICARE, MEDICAID ==
[~2018-02-19] VITALS: Ht 175.3 cm; Wt 114.3 kg
[~2018-02-19 20:58] MED LIST changes: -AMLO10TA2 PO; +AMLO10TA6 PO; -LOSA50TA36 PO; +LOSA50TA7 PO; +METF-399 PO; -METF10002 PO
[2018-02-19] MEDS ORDERED: RX-TRIMETH/SULFA. 160-800 MG (BACTRIM DS) TAB PPK#2 PO STA (21:08)
[2018-02-19] MEDS ORDERED: SULF1TAB35 PO (21:11)
--- NOTE | 2018-02-19 21:11 | ED Upper Extremity ---
General Chief Complaint: Upper Extremity Stated Complaint: LOWER BACK PAIN,FALL,SPOT ON L FOREARM 2 LUMPS Source: patient Exam Limitations: no limitations History of Present Illness Date Seen by Provider: Feb 19, 2018 Time Seen by Provider: 21:04 Initial Comments PT STATES THAT SHE NOTICED A SORE SPOT ON HER LEFT FOREARM LAST NIGHT TODAY IT STARTED TURNING RED AND GETTING MORE TENDERN NO KNOWN INJURY NO KNOWN BITE/STING NO RECENT IV STICK, ETC. NO DRAINAGE NO STREAKS NO HISTORY OF SIMILAR PCP: LEONEL. 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 PAIGE Allergies and Home Medications Allergies Coded Allergies: Choline Fenofibrate (Unverified Allergy, Unknown, 11/06/17) Phenylpropanolamine HCl (Unverified Allergy, Unknown, 11/08/12) amoxicillin trihydrate (Unverified Allergy, Unknown, 11/08/12) brompheniramine maleate (Unverified Allergy, Unknown, 11/08/12) buspirone HCl (Unverified Allergy, Unknown, 11/08/12) celecoxib (Unverified Allergy, Unknown, 11/08/12) hydrochlorothiazide (Unverified Allergy, Unknown, 11/08/12) meloxicam (Unverified Allergy, Unknown, 05/12/14) niacin (Unverified Allergy, Unknown, 11/08/12) potassium clavulanate (Unverified Allergy, Unknown, 11/08/12) simvastatin (Unverified Allergy, Unknown, 05/12/14) spironolactone (Unverified Allergy, Unknown, 11/08/12) Uncoded Allergies: MIXLACAM (Allergy, Unknown, 05/12/14) Home Medications Albuterol Sulfate 18 Gm Hfa.aer.ad, 2 PUFF INH Q6H PRN for SHORTNESS OF BREATH, (Reported) Albuterol Sulfate 2.5 Mg/3 Ml Vial.neb, 2.5 MG NEB Q6H PRN for SHORTNESS OF BREATH, (Reported) Amlodipine Besylate 10 Mg Tablet, 10 MG PO HS, (Reported) Aspirin 81 Mg Tablet.dr, 81 MG PO DAILY, (Reported) Atorvastatin Calcium 40 Mg Tablet, 40 MG PO HS, (Reported) Baclofen 20 Mg Tablet, 20 MG PO BID, (Reported) Cetirizine HCl 10 Mg Tablet, 10 MG PO DAILY, (Reported) Ferrous Sulfate 325 Mg Tablet, 325 MG PO BID, (Reported) Fluticasone Propionate 16 Gm Gentry.susp, 2 SPRAY NS BID, (Reported) Furosemide 20 Mg Tablet, 20 MG PO DAILY PRN for SWELLING, (Reported) Glipizide 10 Mg Tablet, 20 MG PO BID, (Reported) TAKES 2 (10MG) TABLETS Hydrocodone Bit/Acetaminophen 1 Tab Tab, 1 TAB PO Q4H PRN Prescribed by: DAVID SMYTH on 11/07/17 4869 Hydrocodone/Acetaminophen 1 Each Tablet, 1 TAB PO TID PRN for PAIN-MODERATE, ( Reported) Liraglutide 0.6 Mg/0.1 Ml Pen.injctr, 1.2 MG SC DAILY, (Reported) Losartan Potassium 50 Mg Tablet, 50 MG PO DAILY, (Reported) Metformin HCl 500 Mg Tab.er.24h, 1,000 MG PO BID, (Reported) TAKES 2 (500MG) TABLETS Montelukast Sodium 10 Mg Tablet, 10 MG PO HS, (Reported) Pantoprazole Sodium 40 Mg Tablet.dr, 40 MG PO DAILY, (Reported) Potassium Chloride 10 Meq Tab.er.prt, 10 MEQ PO DAILY PRN for WHEN TAKING FUROSEMIDE, (Reported) Sulfamethoxazole/Trimethoprim 1 Each Tablet, 1 EACH PO BID Prescribed by: ARTIE NELSON on 02/19/181 Patient Home Medication List Home Medication List Reviewed: Yes Review of Systems Constitutional: no symptoms reported EENTM: no symptoms reported Respiratory: other (JUST FINISHED KEFLEX TODAY--WAS TREATED FOR CHF/FLUID IN LUNGS--BUT STATES SHE SOMETIMES HAS PNEUMONIA WITH IT, SO THEY PUT HER ON ANTIBIOTICS A PRECAUTION--THOSE SYMPTOMS HAVE RESOLVED. ) Cardiovascular: no symptoms reported Musculoskeletal: see HPI Skin: see HPI Psychiatric/Neurological: Denies No Symptoms Reported Past Xzyxytv-Ftecrp-Znvune Hx Patient Social History Alcohol Use: Denies Use Recreational Drug Use: No Drug of Choice: pot Smoking Status: Former Smoker Type Used: Cigarettes Former Smoker, Quit: October 25, 2006 Recent Foreign Travel: No Contact w/Someone Who Travel: No Recent Hopitalizations: Yes (11/01/17 EGD/Colonscopy) Immunizations Up To Date Date of Pneumonia Vaccine: Apr 10, 2011 Date of Influenza Vaccine: Apr 04, 2017 Seasonal Allergies Seasonal Allergies: Yes Past Medical History Surgeries: Yes (KNEE REPLACEMENT X 3; MULTIPLE KNEE SCOPES; D&C; WISDOM TEETH; EGD/COLONOSCOPY 10/2017-DR. SMYTH; CARDIAC CATH) Appendectomy, Cardiac, Gallbladder, Hysterectomy, Orthopedic, Tonsillectomy Respiratory: Yes (HX PNEUMONIA AND ALOT OF CONGESTION FROM ALLERGIES; O2 AT HS + CPAP) Asthma, Pneumonia, Sleep Apnea, COPD Currently Using CPAP: Yes Cardiac: Yes (LEAKY VALVE, ONE DOESN'T CLOSE RIGHT AND ENLARGE LEFT VENTRICLE; ? CHF ? ) Coronary Artery Disease, Hypertension, Irregular Heartbeat, Valvular Heart Disease Neurological: Yes (2016) Seizure Disorder 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 Disorders: No 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 Disorders: Denies RN PERITONEAL DIALYSIS History: Hysterectomy, Menopausal Sexually Transmitted Disease: No HIV/AIDS: No Genitourinary: Yes Bladder Infection, UTI-Chronic Gastrointestinal: Yes (DIVERTICULAR DISEASE; ULCER A CHILD) Gastroesophageal Reflux, Diverticulosis, Polyps, Hiatal Hernia Musculoskeletal: Yes (CHRONIC KNEE PROBLEMS--MULTIPLE SURGERIES AND REPLACEMENTS ) Degenerate Disk Disease, Arthritis, Scoliosis, Chronic Back Pain Endocrine: Yes (ON VICTOZA, ORAL MEDICATIONS) Diabetes, Non-Insulin dep HEENT: Yes (GLASSES) Loss of Vision: Bilateral Hearing Impairment: Denies Cancer: No Psychosocial: No Depression Integumentary: Yes (FOOT ULCER) Blood Disorders: Yes (ANEMIA) Adverse Reaction/Blood Tranf: No (N/A) Family Medical History No Pertinent Family Hx Physical Exam Vital Signs Vital Signs - First Documented 02/19/18 21:05 Temp 98.8 Pulse 98 Resp 18 B/P (MAP) 175/91 (119) Pulse Ox 98 O2 Delivery Room Air Capillary Refill : Height, Weight, BMI Height: 5'9.00" Weight: 250lbs. 0.2oz. 116.571876ug; 37.8 BMI Method:Stated General Appearance: no apparent distress, obese Elbow/Forearm: Left (ANTERIOR LEFT FOREARM WITH 2 CM DIAMETER, VERY FIRM SUB Q MASS/NODULE WITH DISCRETE BORDERS, MILD TENDERNESS, AND VERY FAINT OVERLYING ERYTHEMA. NO WOUNDS, NO DRAINAGE, NO STREAKS, NO FLUCTUANCE. MOTOR/SENSORY/ VASCULAR INTACT. ) Hand: normal inspection Neurologic/Tendon: normal sensation, normal motor functions, normal tendon functions Neurologic/Psychiatric: fruit cutter II-XII nml as tested, no motor/sensory deficits, alert, oriented x 3, other (ANXIOUS) Skin: normal color, warm/dry, other ( ABOVE) Progress/Results/Core Measures Results/Orders My Orders Orders - ARTIE NELSON DO Rx-Trimeth/Sulfameth Ds Tab (Rx-Bactrim/ (02/19/18 21:08) Vital Signs/I&O 02/19/18 21:05 Temp 98.8 Pulse 98 Resp 18 B/P (MAP) 175/91 (119) Pulse Ox 98 O2 Delivery Room Air Departure Impression Primary Impression: INFLAMED SUBCUTANEOUS NODULE Disposition: HOME, SELF-CARE Condition: Stable Departure-Patient Inst. Referrals: [facility] (PCP/Family) Primary Care Physician Patient Instructions: Cellulitis (Skin Infection), Adult (DC) Add. Discharge Instructions: ICE TO AREA AT 20 MINUTE INTERVALS TYLENOL AND MOTRIN NEEDED FOR PAIN FOLLOW UP WITH [facility] THIS WEEK FOR FURTHER CARE All discharge instructions reviewed with patient and/or family. Voiced understanding. Scripts Sulfamethoxazole/Trimethoprim (Bactrim Ds Tablet) 1 Each Tablet 1 EACH PO BID, #20 TAB Prov: ARTIE NELSON DO 02/19/18 ARTIE NELSON DO Feb 19, 2018 21:11
[2018-02-19 21:14] VITALS: BP 175/91
--- OUTSIDE RECORDS SUMMARY | 2018-02-19 21:19 | XMS REPORT ---
Author Author BOOGIE ARAUJO Organization [facility] Address [address] [place] [address] Care Team Providers Care Manager E Learning Name Role Phone BOOGIE ARAUJO Unavailable PROBLEMS Type Condition ICD9-CM Code HYW46-MU Code Onset Dates Condition Status SNOMED Code Problem History of abnormal cervical Pap smear Z87.898 Active 207313515 Problem Thoracogenic scoliosis of thoracolumbar region M41.35 Active 71801462 Problem Uncontrolled type 2 diabetes mellitus without complication, without long-term current use of insulin E11.65 Active 237031121 Problem Diabetes type 2, controlled E11.9 Active 55498359 Problem Thyroid nodule E04.1 Active 130989523 Problem History of colon polyps Z86.010 Active 771070701 Problem Other iron deficiency anemia D50.8 Active 71483379 Problem Iron deficiency anemia due to chronic blood loss D50.0 Active 711685477 Problem Screening breast examination Z12.39 Active 873889050 Problem Allergic rhinitis, unspecified allergic rhinitis trigger, unspecified rhinitis seasonality J30.9 Active 48147793 Problem Controlled type 2 diabetes mellitus without complication, without long -term current use of insulin E11.9 Active 085556750 Problem Other chronic pain G89.29 Active 98344070 ALLERGIES No Information ENCOUNTERS Encounter Location Date Diagnosis [facility] [id number] [place] [address] 43880- 6876 Jan, Diabetes type 2, controlled E11.9 and Pneumonia of right lower lobe due to infectious organism J18.1 [facility] [id number] [place] [address] 28142- 9960 Jan, Other chronic pain G89.29 [facility] [id number] [address] 2334 Dec, Other chronic pain G89.29 [facility] [id number] [place] [address] [place] [address]- 7065 06 Dec, 2017 Diabetes type 2, controlled E11.9 [facility] [id number] [place] [address] 81699- 4669 14 Nov, 2017 Other chronic pain G89.29 [facility] [address] [address]- 4967 Nov, [facility] [id number] [place] [address] 50370- 9869 Nov, [facility] [id number] [place] [address] 46300- 3309 October, Diabetes type 2, controlled E11.9 and Acute cystitis without hematuria N30.00 [facility] [id number] [place] [address] 74347- 2465 October, [facility] [id number] [place] [address] 22201- 6340 October, [facility] [id number] [place] [address] 51131- 1756 October, [facility] [id number] [place] [address] 05627- 6763 October, Other chronic pain G89.29 [facility] [address] [address] 5395 Sep, Diabetes type 2, controlled E11.9 [facility] [address], [place] [address]- 0456 Sep, [facility] [address] [address]- 9986 Sep, Diabetes type 2, controlled E11.9 [facility] [address], [place] [address]- 8496 Sep, Other chronic pain G89.29 [facility] [address], [place] [address]- 9817 13 Sep, 2017 Other iron deficiency anemia D50.8 [facility] [id number] [place] [address] 13057- 8000 Sep, Other iron deficiency anemia D50.8 [facility] [id number] [place] [address] 20893- 1098 Sep, Iron deficiency anemia due to chronic blood loss D50.0 and Dysuria R30.0 [facility] [id number] [place] [address] 42993- 1829 Sep, Dysuria R30.0 [facility] [id number] [place] [address] 81206- 7039 Sep, Iron deficiency anemia due to chronic blood loss D50.0 [facility] [id number] [place] [address] 05869- 3921 Sep, [facility] [id number] [place] [address] 59610- 4353 Sep, Controlled type 2 diabetes mellitus without complication, without long-term current use of insulin E11.9 ; Leg cramps R25.2 ; Low back pain M54.5 and Other chronic pain G89.29 [facility] [id number] [place] [address] 91596- 0049 Sep, Controlled type 2 diabetes mellitus without complication, without long-term current use of insulin E11.9 ; Low back pain M54.5 ; Other chronic pain G89.29 and Leg cramps R25.2 [facility] [id number] [place] [address] 60940- 2900 Aug, Other chronic pain G89.29 [facility] [id number] [place] [address] 53684- 9629 Jul, Other chronic pain G89.29 [facility] [id number] [place] [address] 05435- 0659 16 Jul, 2017 Pneumonia of left lower lobe due to infectious organism J18.1 [facility] [address] [id number] [address] Jul, Dysuria R30.0 ; Cough in adult patient R05 and Pneumonia of left lower lobe due to infectious organism J18.1 [facility] [id number] [place] [address] 03278- 2300 08 Jul, 2017 [facility] [id number] [place] [address] 19720- 6345 Jun, Other chronic pain G89.29 [facility] [id number] [place] [address] 05467- 3448 Jun, [facility] [id number] [place] [address] 72780- 9247 Jun, Diabetes type 2, controlled E11.9 ; Back muscle spasm M62.830 and Other chronic pain G89.29 [facility] [id number] [place] [address] 83648- 8775 Jun, Screening breast examination Z12.31 [facility] [id number] [place] [address] 74980- 5076 May, Other chronic pain G89.29 [facility] [id number] [place] [address] 41636- 8023 May, [facility] [id number] [place] [address] 95366- 4122 May, UTI (urinary tract infection) N39.0 [facility] [id number] [place] [address] 06301- 2840 May, Dysuria R30.0 [facility] [id number] [place] [address] 13404- 5399 May, Dysuria R30.0 [facility] [address], [place] [address]- 0745 May, Diabetes type 2, controlled E11.9 ; 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 Z79.891 and Other chronic pain G89.29 [facility] [address], [place] [address]- 4533 Apr, Diabetes type 2, controlled E11.9 [facility] [id number] [place] [address] 32907 -1839 Mar, Paronychia of great toe, right L03.031 and Dysuria R30.0 [facility] [id number] [place] [address] 67294- 8522 Mar, Diabetes type 2, controlled E11.9 [facility] [id number] [place] [address] 11298- 3830 28 Feb, 2017 Diabetes type 2, controlled E11.9 [facility] [id number] [place] [address] [id number] 13 Feb, 2017 Dental examination Z01.20 [facility] [id number] [place] [address] 92344- 2135 11 Feb, 2017 Diabetes type 2, controlled E11.9 [facility] [id number] [place] [address] 96202- 3060 07 Feb, 2017 Diabetes type 2, controlled E11.9 [facility] [id number] [place] [address] 22782- 5578 14 Jan, 2017 Diabetes type 2, controlled E11.9 [facility] [id number] [place] [address] 34751- 8355 Dec, Diabetes type 2, controlled E11.9 [facility] [id number] [place] [address] 53727- 3725 Dec, Diabetes type 2, controlled E11.9 [facility] [id number] [place] [address] 70335- 0180 Nov, Diabetes type 2, controlled E11.9 [facility] [id number] [place] [address] 98023- 2099 Nov, Diabetes type 2, controlled E11.9 [facility] [id number] [place] [address] 47247- 5784 27 Nov, 2016 Diabetes type 2, controlled E11.9 [facility] [id number] [place] [address] 73895- 7895 Nov, Diabetes type 2, controlled E11.9 [facility] [id number] [place] [address] 89162- 4486 14 Nov, 2016 Diabetes type 2, controlled E11.9 [facility] [id number] [place] [address] 36572- 3328 Nov, Diabetes type 2, controlled E11.9 [facility] [id number] [place] [address] 89220- 0095 October, Pain in unspecified shoulder M25.519 [facility] [id number] [place] [address] 12978- 5194 October, Diabetes type 2, controlled E11.9 and Cellulitis of right lower extremity L03.115 [facility] [id number] [place] [address] 15196- 6843 October, Pain in unspecified shoulder M25.519 [facility] [id number] [place] [address] 85332- 2569 Sep, Diabetes type 2, controlled E11.9 [facility] [id number] [place] [address] 80768- 8177 Aug, Pain in unspecified shoulder M25.519 [facility] [id number] [place] [address] 14176- 1230 Aug, Diabetes type 2, controlled E11.9 [facility] [id number] [place] [address] 02575- 2425 Aug, Diabetes type 2, controlled E11.9 ; Dark urine R82.99 and Localized edema R60.0 [facility] [id number] [place] [address] 46492- 1893 Aug, Pain in unspecified shoulder M25.519 [place] [id number] [place] [address] 01741- 1772 07 Jul, 2016 Pain in unspecified shoulder M25.519 [facility] [id number] [place] [address] 70114- 2074 06 Jul, 2016 [place] [address] 52986- 1803 02 Jul, 2016 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, 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 E11.9 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 [facility] [address] 53126- 9740 Jun, Diabetes type 2, controlled E11.9 [facility] [facility] [address] 06694- 0884 18 Jun, 2016 Screening breast examination Z12.39 and Allergic rhinitis, unspecified allergic rhinitis trigger, unspecified rhinitis seasonality J30.9 [place] [address] 68429- 4908 Jun, Pain in unspecified shoulder M25.519 [facility] [address] 08271- 1696 May, [facility] [address] 57586- 4367 May, Pain in unspecified shoulder M25.519 [place] [address] 85861- 1718 05 May, 2016 Thoracogenic scoliosis of thoracolumbar region M41.35 ; Low back pain M54.5 ; Other chronic pain G89.29 and Uncontrolled type 2 diabetes mellitus without complication, without long-term current use of insulin E11.65 [facility] [id number] [place] [address] 80044- 4644 Apr, [place] [address] 06905- 6518 15 Apr, 2016 [place] [address] 44256- 4618 Apr, History of type 2 diabetes mellitus Z86.39 and Encounter for immunization Z23 [facility] [id number] [place] [address] 40422- 7417 Mar, [facility] [id number] [place] [address] 97800- 4090 Mar, [facility] [id number] [place] [address] 03466- 7076 Feb, [facility] [id number] [place] [address] 27073- 9627 Jan, [facility] [id number] [place] [address] 93291- 8313 Jan, [facility] [id number] [place] [address] 01644- 4190 Dec, [facility] [id number] [place] [address] 06105 -1706 Dec, Sore throat J02.9 and Allergic rhinitis, unspecified allergic rhinitis type J30.9 [facility] [id number] [place] [address] 47877- 4936 Dec, Diabetes type 2, controlled E11.9 [facility] [id number] [place] [address] 37708- 8930 Nov, [facility] [id number] [place] [address] 07749- 1660 Nov, [facility] [id number] [place] [address] 02559- 6886 October, [facility] [id number] [place] [address] 21862- 6915 October, [facility] [id number], [place] [address]- 0961 Sep, [facility] [id number] [place] [address] 54035- 7447 Aug, [facility] [address], [place] [address]- 4989 Aug, Diabetes type 2, controlled E11.9 ; UTI (urinary tract infection) N39.0 and Bacterial infection A49.9 [facility] [address], [place] [address]- 7203 Jul, [facility] [id number] [place] [address] 53228- 4197 Jul, [facility] [id number] [place] [address] 27308- 4018 Jul, Pharyngitis J02.9 and Seborrheic keratoses L82.[address] [place] [address] 06355- 5984 Jun, [facility] [id number] [place] [address] 27386- 4478 May, [place] [id number] [place] [address] 21601- 8225 May, Skin tags, multiple acquired L91.8 ; Seborrheic keratoses L82.1 and Diabetes type 2, controlled E11.9 [address], [place] [address]- 6163 May, Well woman exam Z01.419 ; Papanicolaou [...] Other hemorrhoids K64.8 and Other fatigue R53.83 [address], [place] [address]- 2023 May, [address] [place] [address] 24851- 4734 May, [facility] [id number] [place] [address] 99588- 1618 Apr, Seborrheic keratosis L82.1 and Diabetes type 2, controlled E11.9 [facility] [id number] [place] [address] 59376- 6151 Apr, Seborrheic keratosis L82.1 and Diabetes type 2, controlled E11.9 [facility] [id number] [place] [address] 61030- 0420 Mar, [facility] [address] 37964- 0268 Mar, [facility] [id number] [place] [address] 60291- 0759 Mar, Encounter for immunization Z23 ; Nevoid hyperpigmentation L81.9 ; Skin tags, multiple acquired L91.8 and Seborrheic keratoses L82.1 [facility] [id number] [place] [address] 91975- 9382 Feb, [facility] [id number] [place] [address] 00152- 2187 Feb, [facility] [id number] [place] [address] 99368- 2150 Feb, [facility] [id number] [place] [address] 77866- 8448 Feb, Diabetes 250.00 ; Tinea corporis 110.5 and Shoulder pain, left 719.41 [facility] [id number] [place] [address] 03489- 5605 Jan, [facility] [id number] [place] [address] 08508- 5156 Dec, [facility] [id number] [place] [address] 29430- 1545 Dec, [facility] [id number] [address]- 6649 Dec, Seborrheic keratoses 702.19 ; Diabetes 250.00 and Hypoglycemia 251.2 [facility] [address] [facility] [id number] [address]- 2053 Nov, [facility] [address], [place] [address]- 2998 Nov, Abnormal mammogram 793.80 [facility] [address] [facility] [id number] [address]- 7218 October, Diabetes 250.00 and Colon polyp 211.3 [facility] [address], [place] [address]- 1893 Sep, [facility] [address], [place] [address]- 8567 Sep, [facility] [address], [place] [address]- 4055 Sep, [facility] [id number] [address]- 8191 Aug, [facility] [address], [place] [address]- 0565 Aug, [facility] [address], [place] [address]- 0484 Jul, [facility] [id number] 7828 Jul, [facility] [id number] 9205 Jun, [facility] [id number] 5310 Jun, [facility] [id number] 0246 Jun, [facility] [address] [place] [address]- 1656 Jun, [facility] [address] [id number] [place] [address]- 2983 Jun, [facility] [place] [facility] [address] [id number] [place] [address]- 2626 Jun, [facility] [address] [id number] [place] [address]- 8135 May, [facility] [place] [facility] [address] [id number] [place] [address]- 1491 May, [facility] [address] [id number] [place] [address]- 7003 Apr, [facility] [place] [facility] [address] [id number] [place] [address]- 0917 Apr, [facility] [place] [facility] [address] [id number] [place] [address]- 9269 Apr, [facility] [address] [id number] [place] [address]- 0028 Apr, [facility] [place] [facility] [address] [id number] [place] [address]- 9741 Apr, [facility] [address] [facility] [id number] [place] [address]- 8207 Apr, [facility] [place] [facility] [address] [id number] [place] [address]- 6760 Apr, [facility] [place] [facility] [address] [id number] [place] [address]- 1554 Apr, [facility] [place] [facility] [address] [id number] [place] [address]- 2737 Apr, [facility] [place] [facility] [address] [id number] [place] [address]- 3809 Apr, [facility] [place] [facility] [address] [id number] [place] [address]- 9435 Mar, [facility] [place] [facility] [address] [id number] [place] [address]- 5687 Mar, [facility] [place] [facility] [address] [id number] [place] [address]- 3636 Mar, [facility] [place] [facility] [address] [id number] [place] [address]- 5337 Mar, [facility] [place] [facility] [address] [id number] [place] [address]- 0101 Mar, [facility] [place] [facility] [address] [id number] [place] [address]- 1891 Mar, [facility] [place] [facility] [address] [id number] [place] [address]- 4332 Mar, [facility] [place] [facility] [address] [id number] [place] [address]- 8530 Mar, [facility] [place] [facility] [address] [id number] [place] [address] Feb, [facility] [place] [facility] [address] [id number] [place] [address] Feb, [facility] [place] [facility] [address] [id number] [place] [address] Feb, [facility] [place] [facility] [address] [id number] [place] [address] Feb, [facility] [place] [facility] [address] [id number], [place] [address] Jan, [facility] [place] [facility] [address] [id number] [place] [address] Jan, [facility] [place] [facility] [address] [id number] [place] [address] Dec, [facility] [place] [facility] [address] [id number], [place] [address] Dec, [facility] [place] [facility] [address] [id number], [place] [address] Nov, [facility] [place] [facility] [address] [id number] [place] [address] Nov, [facility] [place] [facility] [address] [id number] [place] [address] Nov, [facility] [place] [facility] [address] [id number] [place] [address] Nov, [facility] [place] [facility] [address] [id number] [place] [address] October, [facility] [place] [facility] [address] [id number] [place] [address] October, [facility] [place] [facility] [address] [id number] [place] [address] October, [facility] [place] [facility] [address] [id number] [place] [address] October, [facility] [place] [facility] [address] [id number] [place] [address] October, [facility] [place] [facility] [address] [id number] [place] [address] October, [facility] [place] [facility] [address] [id number] [place] [address]- [address] October, [facility] [place] [facility] [address] [id number] [place] [address] October, [facility] [place] [facility] [address] [id number] [place] [address] Aug, [facility] [place] [facility] [address] [id number] [place] [address] Aug, [facility] [place] [facility] [address] [id number] [place] [address] Jul, [facility] [place] [facility] [address] [id number] [place] [address] Jul, [facility] [place] [facility] [address] [id number] [place] [address] Jul, [facility] [place] [facility] [address] [id number] [place] [address] Jul, [facility] [place] [facility] [address] [id number] [place] [address] Jul, [facility] [place] [facility] [address] [id number] [place] [address] Jun, [facility] [place] [facility] [address] [id number] [place] [address] Jun, [facility] [place] [facility] [address] [id number] [place] [address] May, [facility] [place] [facility] [address] [id number] [place] [address] May, [facility] [place] [facility] [address] [id number] [place] [address] Apr, [facility] [place] [facility] [address] [id number] [place] [address] Apr, [facility] [place] [facility] [address] [id number] [place] [address] Mar, [facility] [place] [facility] [address] [id number] [place] [address] Mar, [facility] [place] [facility] [address] [id number], [place] [address] Mar, [facility] [place] [facility] [address] [id number] [place] [address] Feb, [facility] [place] [facility] [address] [id number] [place] [address] Feb, [facility] [place] [facility] [address] [id number] [place] [address] 17 Feb, 2013 [facility] [place] [facility] [address] [id number] [place] [address] Feb, [facility] [address] [id number] [place] [address] Feb, [facility] [place] [facility] [address] [id number] [place] [address] Jan, [facility] [place] [facility] [address] [id number] [place] [address] Dec, [facility] [place] [facility] [address] [id number] [place] [address] Nov, [facility] [place] [facility] [address] [id number] [place] [address] October, [facility] [place] [facility] [address] [id number] [place] [address] Sep, [facility] [address] [id number] [place] [address] Aug, [facility] [place] [facility] [address] [id number] [place] [address] Aug, [facility] [address] [id number] [place] [address] 39[address] Aug, [facility] [address] [id number] [place] [address] May, [facility] [address] [id number] [place] [address] May, [facility] [place] [facility] [address] [id number] [place] [address] 1786 May, [facility] [place] [facility] [address] [id number] [place] [address] May, [facility] [place] [facility] [address] [id number] [place] [address] May, [facility] [place] [facility] [address] [id number] [place] [address] 16 Apr, 2012 [facility] [place] [facility] [address] [id number] [place] [address] 2986 16 Apr, 2012 [facility] [place] [facility] [address] [id number] [place] [address] 4734 14 Apr, 2012 [facility] [place] [facility] [address] [id number] [place] [address] 2456 14 Apr, 2012 [facility] [place] [facility] [address] [id number] [place] [address] 07 Apr, 2012 [facility] [place] [facility] [address] [id number] [place] [address]662 Apr, [facility] [place] [facility] [address] [id number] [place] [address] Apr, [facility] [place] [facility] [address] [id number] [place] [address] Apr, [facility] [place] [facility] [address] [id number] [place] [address] Mar, [facility] [place] [facility] [address] [id number] [place] [address] Mar, [facility] [place] [facility] [address] [id number] [place] [address] 75[address] Mar, [facility] [place] [facility] [address] [facility] [id number] [place] [address] 9428 Mar, [facility] [place] [facility] [address] [id number] [place] [address] Mar, [facility] [place] [facility] [address] [id number] [place] [address] 1258 08 Mar, 2012 [facility] [place] [facility] [address] [id number] [place] [address] 7983 Mar, [facility] [place] [facility] [address] [id number] [place] [address] 28 Feb, 2012 [facility] [place] [facility] [address] [id number] [place] [address] 24 Feb, 2012 [facility] [place] [facility] [address] [id number] [place] [address] Feb, [facility] [place] [facility] [address] [id number] [place] [address] Feb, [facility] [place] [facility] [address] [id number] [place] [address] Jan, [facility] [place] [facility] [address] [id number] [place] [address] Jan, [facility] [place] [facility] [address] [id number] [place] [address] 30[address] Jan, [facility] [place] [facility] [address] [id number] [place] [address] 7579 Jan, [facility] [place] [facility] [address] [id number] [place] [address] 64[address] Jan, [facility] [place] [facility] [address] [id number] [place] [address] 7835 Jan, [facility] [place] [facility] [address] [id number] [place] [address] Dec, [facility] [place] [facility] [address] [id number] [place] [address] 49[address] Dec, [facility] [place] [facility] [address] [id number] [place] [address]- 7586 Dec, [facility] [place] [facility] [address] [id number] [place] [address]- 2494 Dec, [facility] [place] [facility] [address] [id number] [place] [address] 8971 Dec, [facility] [place] [facility] [address] [id number] [place] [address]- 4757 Dec, [facility] [place] [facility] [address] [id number] [place] [address] Dec, [facility] [place] [facility] [address] [id number], [place] [address] Dec, [facility] [address] [id number] [place] [address] Nov, [facility] [place] [facility] [address] [id number] [place] [address] 5866 Nov, [facility] [address] [facility] [id number] [place] [address]- 9076 08 Nov, 2011 [facility] [place] [facility] [address] [id number] [place] [address]- 8528 07 Nov, 2011 [facility] [place] [facility] [id number] [place] [address] October, [facility] [place] [facility] [address] [facility] [id number] [place] [address]- 8976 October, [facility] [id number] [place] [address] 30 Sep, 2011 [facility] [place] [facility] [address] [facility] [id number] [place] [address]- 6888 Sep, [facility] [place] [facility] [address] [id number] [place] [address] 6960 Aug, [facility] [place] [facility] [address] [id number] [place] [address]- [address]256 16 Aug, 2011 [facility] [place] [facility] [address] [id number] [place] [address] 1272 Aug, [facility] [place] [facility] [address] [facility] [id number] [place] [address]- [address]157 Aug, [facility] [place] [facility] [address] [id number] [place] [address]- 6872 05 Aug, 2011 [facility] [place] [facility] [address] [facility] [id number] [place] [address]- 1476 08 Jul, 2011 [facility] [place] [facility] [address] [id number] [place] [address]- 2756 06 Jul, 2011 [facility] [place] [facility] [address] [id number] [place] [address]- 1765 Jul, [facility] [address] [id number] [place] [address]- 0390 Jul, [facility] [address] [id number] [place] [address]- 7094 Jun, [facility] [address] [id number] [place] [address]- 5513 Jun, [facility] [address] [id number] [place] [address]- 9134 Jun, [facility] [address] [id number] [place] [address]- 9404 Jun, [facility] [address] [id number] [place] [address]- 5056 Jun, [facility] [address] [id number] [place] [address]- 2421 May, [facility] [address] [id number] [place] [address]- 7933 May, [facility] [address] [id number] [place] [address]- 2293 May, [facility] [address] [id number] [place] [address]- 9711 May, [facility] [place] [facility] [address] [id number] [place] [address]- 6408 May, [facility] [place] [facility] [address] [id number] [place] [address]- 9737 May, [facility] [place] [facility] [address] [id number] [place] [address]- 7764 Apr, [facility] [place] [facility] [address] [id number] [place] [address]- 6935 Apr, [facility] [place] [facility] [id number] [place] [address]86 14 Mar, 2011 [facility] [address], [place] [address] 2546 Mar, [facility] [address], [place] [address] 2546 October, [facility] [id number], [place] [address] 2546 May, [facility] [id number] [place] [address]- 2546 Apr, [facility] [id number] [place] [address] 2546 Jul, [facility] [id number] [place] [address] 2546 May, [facility] [id number] [place] [address]- 4176 May, [facility] [id number] [place] [address] 2546 May, [facility] [id number] [place] [address]- 5776 Apr, [facility] [id number], [place] [address] 2546 Apr, [facility] [id number], [place] [address]- 4606 Mar, [facility] [id number], [place] [address] Jan, [facility] [id number], [place] [address] Nov, IMMUNIZATIONS No Known Immunizations SOCIAL HISTORY Never Assessed REASON FOR VISIT Controlled Med Refill 12/02/17 PLAN OF CARE VITAL SIGNS MEDICATIONS Medication Instructions Dosage Frequency Start Date End Date Duration Status [place] 7.5-325 MG Orally 3 times a day 1 tablet as needed 8h Nov, 28 days Active RESULTS No Results PROCEDURES [...] sleep apnea Medical History frequent lung infections Medical History Acid Reflux Medical History Hiatal Hernia Surgical History right knee arthroscopy Surgical History left knee arthroscopy Surgical History tonsillectomy Surgical History appendectomy Surgical History total hysterectomy (fibroid tumors. Calcified ovaries, painful periods) 1995 Surgical History right knee replacement 2011 Surgical History left knee replacement x2 2001,2006 Surgical History colonoscopy 07-08-15 Surgical History heart cath x 2 2014 Surgical History colonoscopy 10/2017 Surgical History Gallbladder removal 10/2017 Surgical History Echocardiogram 01/23/18 Hospitalization History surgeries Hospitalization History pneumonia Hospitalization History chest pain
--- OUTSIDE RECORDS SUMMARY | 2018-02-19 21:19 | XMS REPORT ---
Author Author BOOGIE ARAUJO Organization [facility] Address [address] [place] [address] Care Team Providers [employer] Libr[employer] Name Role Phone BOOGIE ARAUJO Unavailable PROBLEMS Type Condition ICD9-CM Code QIS62-SJ Code Onset Dates Condition Status SNOMED Code Problem History of abnormal cervical Pap smear Z87.898 Active 160417293 Problem Thoracogenic scoliosis of thoracolumbar region M41.35 Active 50385960 Problem Uncontrolled type 2 diabetes mellitus without complication, without long-term current use of insulin E11.65 Active 029183608 Problem Diabetes type 2, controlled E11.9 Active 64517420 Problem Thyroid nodule E04.1 Active 919900723 Problem History of colon polyps Z86.010 Active 196312315 Problem Other iron deficiency anemia D50.8 Active 89508896 Problem Iron deficiency anemia due to chronic blood loss D50.0 Active 063209503 Problem Screening breast examination Z12.39 Active 794043468 Problem Allergic rhinitis, unspecified allergic rhinitis trigger, unspecified rhinitis seasonality J30.9 Active 01576268 Problem Controlled type 2 diabetes mellitus without complication, without long -term current use of insulin E11.9 Active 099822577 Problem Other chronic pain G89.29 Active 99188696 ALLERGIES No Information ENCOUNTERS Encounter Location Date Diagnosis [place] [id number] [place] [address] 95307- 0709 Jan, Diabetes type 2, controlled E11.9 ; Controlled type 2 diabetes mellitus without complication, without long-term current use of insulin E11.9 and Pneumonia of right lower lobe due to infectious organism J18.1 [facility] [id number] [place] [address] 45910- 8366 Jan, Other chronic pain G89.29 [facility] [id number] [address] 5551 Dec, Other chronic pain G89.29 [facility] [address] [facility] [id number] [address] 06 Dec, 2017 Diabetes type 2, controlled E11.9 [facility] [address] [facility] [id number] [address] 4645 Nov, Other chronic pain G89.29 [facility] [address] [facility] [id number] [address] 4943 Nov, [facility] [address] [facility] [id number] [address]- 7552 Nov, [facility] [address] [facility] [id number] [place] [address] 63276- 0466 October, Diabetes type 2, controlled E11.9 and Acute cystitis without hematuria N30.00 [facility] [address] [address] 7112 October, [facility] [id number] [place] [address] 42072- 2201 October, [facility] [address] [address]- 9983 October, [facility] [id number] [place] [address] 47884- 6849 October, Other chronic pain G89.29 [facility] [id number] [address]- 6474 Sep, Diabetes type 2, controlled E11.9 [facility] [address] [facility] [id number] [address]- 4851 Sep, [facility] [id number] [address]- 2383 Sep, Diabetes type 2, controlled E11.9 [facility] [id number] [address]- 8289 Sep, Other chronic pain G89.29 [facility] [id number] [place] [address] 54077- 0113 Sep, Other iron deficiency anemia D50.8 [place] [id number] [place] [address] 33716- 0687 Sep, Other iron deficiency anemia D50.8 [place] [id number] [place] [address] 17085- 3648 Sep, Iron deficiency anemia due to chronic blood loss D50.0 and Dysuria R30.0 [place] [id number] [place] [address] 38889- 8675 Sep, Dysuria R30.0 [place] [id number] [place] [address] 71633- 8503 Sep, Iron deficiency anemia due to chronic blood loss D50.0 [place] [id number] [place] [address] 18819- 9840 Sep, [place] [id number] [place] [address] 30607- 0207 Sep, Controlled type 2 diabetes mellitus without complication, without long-term current use of insulin E11.9 ; Leg cramps R25.2 ; Low back pain M54.5 and Other chronic pain G89.29 [place] [id number] [place] [address] 31293- 8429 Sep, Controlled type 2 diabetes mellitus without complication, without long-term current use of insulin E11.9 ; Low back pain M54.5 ; Other chronic pain G89.29 and Leg cramps R25.2 [place] [id number] [place] [address] 49970- 8306 Aug, Other chronic pain G89.29 [place] [id number] [place] [address] 89198- 7177 Jul, Other chronic pain G89.29 [place] [id number] [place] [address] 82361- 1275 Jul, Pneumonia of left lower lobe due to infectious organism J18.1 [facility] [address] [address]10[address] 12 Jul, 2017 Dysuria R30.0 ; Cough in adult patient R05 and Pneumonia of left lower lobe due to infectious organism J18.1 [facility] [address] [address]- 0170 08 Jul, 2017 [facility] [id number] [place] [address] 16186- 1862 Jun, Other chronic pain G89.29 [facility] [address] [address]- 8698 Jun, [facility] [id number] [place] [address] 82411- 5036 Jun, Diabetes type 2, controlled E11.9 ; Back muscle spasm M62.830 and Other chronic pain G89.29 [facility] [id number] [place] [address] 93426- 4815 Jun, Screening breast examination Z12.31 [facility] [id number] [place] [address] 19097- 9058 May, Other chronic pain G89.29 [facility] [address] [address]- 3552 May, [facility] [address] [address]- 2022 May, UTI (urinary tract infection) N39.0 [facility] [address] [address]- 1535 04 May, 2017 Dysuria R30.0 [facility] [address] [address]- 4515 May, Dysuria R30.0 [facility] [address] [address]- 6188 May, Diabetes type 2, controlled E11.9 ; group home current use of 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 Z79.891 and Other chronic pain G89.29 [facility] [id number] [place] [address] 40971- 4922 Apr, Diabetes type 2, controlled E11.9 [facility] [id number] [place] [address] 61005 -7314 Mar, Paronychia of great toe, right L03.031 and Dysuria R30.0 [facility] [id number] [place] [address] 94828- 6890 Mar, Diabetes type 2, controlled E11.9 [facility] [id number] [place] [address] 60988- 2491 28 Feb, 2017 Diabetes type 2, controlled E11.9 [facility] [id number] [place] [address] [id number] 13 Feb, 2017 Dental examination Z01.20 [facility] [id number] [place] [address] 92137- 5580 11 Feb, 2017 Diabetes type 2, controlled E11.9 [facility] [id number] [place] [address] 33143- 0843 07 Feb, 2017 Diabetes type 2, controlled E11.9 [facility] [id number] [place] [address] 88389- 4652 14 Jan, 2017 Diabetes type 2, controlled E11.9 [facility] [id number] [place] [address] 21436- 0816 Dec, Diabetes type 2, controlled E11.9 [facility] [id number] [place] [address] 51561- 5947 Dec, Diabetes type 2, controlled E11.9 [facility] [id number] [place] [address] 87918- 7220 Nov, Diabetes type 2, controlled E11.9 [facility] [id number] [place] [address] 80427- 7893 Nov, Diabetes type 2, controlled E11.9 [facility] [address] [address]- 9102 Nov, Diabetes type 2, controlled E11.9 [facility] [id number] [place] [address] 80434- 6815 Nov, Diabetes type 2, controlled E11.9 [facility] [id number] [place] [address] 74030- 1573 Nov, Diabetes type 2, controlled E11.9 [facility] [id number] [place] [address] 18388- 4736 Nov, Diabetes type 2, controlled E11.9 [place] [id number] [place] [address] 45454- 3020 October, Pain in unspecified shoulder M25.519 [place] [id number] [place] [address] 33675- 4888 October, Diabetes type 2, controlled E11.9 and Cellulitis of right lower extremity L03.115 [facility] [id number] [place] [address] 76502- 4148 October, Pain in unspecified shoulder M25.519 [facility] [id number] [place] [address] 51673- 4231 Sep, Diabetes type 2, controlled E11.9 [facility] [id number] [place] [address] 51167- 1567 Aug, Pain in unspecified shoulder M25.519 [facility] [id number] [place] [address] 28801- 1681 Aug, Diabetes type 2, controlled E11.9 [facility] [id number] [place] [address] 28039- 0967 Aug, Diabetes type 2, controlled E11.9 ; Dark urine R82.99 and Localized edema R60.0 [facility] [id number] [place] [address] 04291- 9213 Aug, Pain in unspecified shoulder M25.519 [facility] [id number] [place] [address] 77351- 8385 07 Jul, 2016 Pain in unspecified shoulder M25.519 [facility] [id number] [place] [address] 04678- 1057 06 Jul, 2016 [place] [id number] [place] [address] 63701- 8480 02 Jul, 2016 Diabetes type 2, controlled E11.9 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 [place] [id number] [place] [address] 49673- 2066 Jun, Diabetes type 2, controlled E11.9 [place] [id number] [place] [address] 63702- 1731 Jun, Screening breast examination Z12.39 and Allergic rhinitis, unspecified allergic rhinitis trigger, unspecified rhinitis seasonality J30.9 [place] [id number] [place] [address] 68970- 7456 Jun, Pain in unspecified shoulder M25.519 [place] [id number] [place] [address] 54350- 9565 May, [place] [id number] [place] [address] 83357- 5359 May, Pain in unspecified shoulder M25.519 [place] [id number] [place] [address] 44834- 4803 05 May, 2016 Thoracogenic scoliosis of thoracolumbar region M41.35 ; Low back pain M54.5 ; Other chronic pain G89.29 and Uncontrolled type 2 diabetes mellitus without complication, without long-term current use of insulin E11.65 [facility] [id number] [place] [address] 62987- 7636 Apr, [place] [id number] [place] [address] 77712- 3446 Apr, [facility] [address] [address]- 3593 Apr, History of type 2 diabetes mellitus Z86.39 and Encounter for immunization Z23 [facility] [address] [address]- 1817 Mar, [facility] [id number] [place] [address] 25544- 4538 Mar, [facility] [id number] [place] [address] 82940- 2898 Feb, [facility] [id number] [place] [address] 05682- 9908 Jan, [facility] [id number] [place] [address] 03983- 8978 Jan, [facility] [id number] [place] [address] 76858- 8079 Dec, [facility] [address] [address] Dec, Sore throat J02.9 and Allergic rhinitis, unspecified allergic rhinitis type J30.9 [facility] [id number] [place] [address] 08768- 9266 Dec, Diabetes type 2, controlled E11.9 [facility] [address] [address]- 0092 Nov, [facility] [id number] [place] [address] 84444- 7436 Nov, [facility] [id number] [place] [address] 00508- 9780 October, [facility] [id number] [place] [address] 44468- 5158 October, [facility] [address] [address]- 8926 Sep, [facility] [address] [address]- 7367 Aug, [place] [id number] [place] [address] 13393- 8750 Aug, Diabetes type 2, controlled E11.9 ; UTI (urinary tract infection) N39.0 and Bacterial infection A49.9 [place] [id number] [place] [address] 40216- 1703 Jul, [place] [id number] [place] [address] 97491- 5076 Jul, [place] [id number] [place] [address] 33803- 9566 Jul, Pharyngitis J02.9 and Seborrheic keratoses L82.1 [place] [id number] [place] [address] 33707- 5296 Jun, [place] [id number] [place] [address] 61125- 4248 May, [place] [id number] [place] [address] 14980- 5396 May, Skin tags, multiple acquired L91.8 ; Seborrheic keratoses L82.1 and Diabetes type 2, controlled E11.[address] [place] [address] 41889- 0722 May, Well woman exam Z01.419 ; Papanicolaou [...] Other fatigue R53.83 and Other hemorrhoids K64.8 [place] [id number] [place] [address] 14669- 3741 May, [facility] [id number] [place] [address] 09278- 4390 May, [facility] [id number] [place] [address] 74176- 1445 Apr, Seborrheic keratosis L82.1 and Diabetes type 2, controlled E11.9 [facility] [id number] [place] [address] 21172- 8581 Apr, Seborrheic keratosis L82.1 and Diabetes type 2, controlled E11.9 [facility] [id number] [place] [address] 85600- 5855 Mar, [facility] [id number] [place] [address] 80332- 1746 Mar, [facility] [id number] [place] [address] 77030- 5480 Mar, Nevoid hyperpigmentation L81.9 ; Encounter for immunization Z23 ; Skin tags, multiple acquired L91.8 and Seborrheic keratoses L82.1 [facility] [id number] [place] [address] 49203- 6959 Feb, [facility] [id number] [place] [address] 59715- 9224 Feb, [facility] [id number] [place] [address] 74086- 4991 Feb, [facility] [id number] [place] [address] 98548- 2449 Feb, Diabetes 250.00 ; Tinea corporis 110.5 and Shoulder pain, left 719.41 [facility] [id number] [place] [address] 17973- 2619 Jan, [facility] [id number] [place] [address] 91129- 6581 Dec, [facility] [address] [address]- 6166 Dec, [facility] [address] 8734 Dec, Seborrheic keratoses 702.19 ; Diabetes 250.00 and Hypoglycemia 251.2 [facility] [address] [address]- 8623 Nov, [facility] [id number] [place] [address] 06191- 6596 Nov, Abnormal mammogram 793.80 [facility] [id number] [place] [address] 71638- 2676 October, Diabetes 250.00 and Colon polyp 211.3 [facility] [id number] [place] [address] 52057- 9079 Sep, [facility] [id number] [place] [address] 56505- 6445 Sep, [facility] [address] [address]- 6878 Sep, [facility] [address] [address]- 8353 Aug, [facility] [address] [address]- 0600 Aug, [facility] [address] [address]- 4666 Jul, [facility] [address] 0671 Jul, [facility] [address] [address]- 0358 Jun, [facility] [address] [address]- 6866 Jun, [facility] [address] [address]- 0416 Jun, [facility] [place] [facility] [address] [id number] [place] [address]- 2876 Jun, [facility] [place] [facility] [address] [id number] [place] [address]- 8939 Jun, [facility] [place] [facility] [address] [id number] [place] [address]- 7313 Jun, [facility] [place] [facility] [address] [id number] [place] [address]- 3235 May, [facility] [place] [facility] [address] [id number] [place] [address]- 9709 May, [facility] [place] [facility] [address] [id number] [place] [address]- 4233 Apr, [facility] [place] [facility] [address] [id number] [place] [address]- 4905 Apr, [facility] [place] [facility] [address] [id number] [address]- 7162 Apr, [facility] [place] [facility] [address] [id number] [address]- 2694 Apr, [facility] [place] [facility] [address] [id number] [place] [address]- 5225 Apr, [facility] [place] [facility] [address] [id number] [address]- 1447 Apr, [facility] [place] [facility] [address] [id number] [address]- 3333 Apr, [facility] [place] [facility] [address] [id number] [place] [address]- 1564 Apr, [facility] [place] [facility] [address] [id number] [address]- 8926 Apr, [facility] [place] [facility] [address] [id number] [address]- 9452 Apr, [facility] [place] [facility] [address] [id number] [place] [address]- 5141 Mar, [facility] [place] [facility] [address] [id number] [place] [address]- 3560 Mar, [facility] [place] [facility] [address] [id number] [place] [address]- 7028 Mar, [facility] [place] [facility] [address] [id number] [place] [address]- 7781 Mar, [facility] [place] [facility] [address] [id number] [place] [address] Mar, [facility] [place] [facility] [address] [id number] [place] [address] Mar, [facility] [place] [facility] [address] [id number] [place] [address] Mar, [facility] [place] [facility] [address] [id number] [place] [address] Mar, [facility] [place] [facility] [address] [id number] [place] [address] Feb, [facility] [place] [facility] [address] [id number] [place] [address] Feb, [facility] [place] [facility] [address] [id number] [place] [address] Feb, [facility] [place] [facility] [address] [id number] [place] [address] Feb, [facility] [place] [facility] [address] [id number] [place] [address] Jan, [facility] [place] [facility] [address] [id number] [place] [address] Jan, [facility] [place] [facility] [address] [id number] [place] [address] Dec, [facility] [place] [facility] [address] [id number] [place] [address] Dec, [facility] [place] [facility] [address] [id number] [place] [address] Nov, [facility] [place] [facility] [address] [id number] [place] [address] Nov, [facility] [place] [facility] [address] [id number] [place] [address] Nov, [facility] [place] [facility] [address] [id number] [place] [address] Nov, [facility] [place] [facility] [address] [id number] [place] [address] October, [facility] [place] [facility] [address] [id number] [place] [address] October, [facility] [place] [facility] [address] [id number] [place] [address] October, [facility] [place] [facility] [address] [id number] [place] [address] October, [facility] [place] [facility] [address] [id number] [place] [address] October, [facility] [place] [facility] [address] [id number] [place] [address] October, [facility] [place] [facility] [address] [id number] [place] [address] October, [facility] [place] [facility] [address] [id number] [place] [address] October, [facility] [place] [facility] [address] [id number] [place] [address] Aug, [facility] [place] [facility] [address] [id number] [place] [address] Aug, [facility] [place] [facility] [address] [id number] [place] [address] Jul, [facility] [place] [facility] [address] [id number] [address] Jul, [facility] [place] [facility] [address] [id number] [place] [address] Jul, [facility] [place] [facility] [address] [id number] [place] [id number]- 1406 Jul, [facility] [place] [facility] [address] [facility] [id number] [place] [address] Jul, [facility] [place] [facility] [address] [id number] [place] [address] 8[address] Jun, [facility] [place] [facility] [address] [id number] [place] [address] Jun, [facility] [place] [facility] [address] [facility] [id number] [place] [address] May, [facility] [place] [facility] [address] [facility] [id number] [place] [address] 0222 May, [facility] [place] [facility] [address] [facility] [id number] [place] [address] 9653 Apr, [facility] [place] [facility] [address] [facility] [id number] [place] [address] 5715 Apr, [facility] [place] [facility] [address] [facility] [id number] [place] [address] 0915 Mar, [facility] [place] [facility] [address] [facility] [id number] [place] [address] 9267 Mar, [facility] [place] [facility] [address] [facility] [id number] [address] 1086 Mar, [facility] [place] [facility] [address] [id number] [place] [address] 5272 Feb, [facility] [place] [facility] [address] [facility] [id number] [place] [address] 4085 20 Feb, 2013 [facility] [place] [facility] [address] [facility] [id number] [place] [address]- 2016 17 Feb, 2013 [facility] [place] [facility] [address] [id number] [place] [address] 0502 Feb, [facility] [address] [id number] [place] [address] 1096 Feb, [facility] [address] [id number] [place] [address] 9698 Jan, [facility] [address] [id number] [place] [address]- 7021 Dec, [facility] [address] [id number] [place] [address] 5416 Nov, [facility] [address] [id number] [place] [address] 2069 October, [facility] [address] [id number] [place] [address] 8179 Sep, [facility] [address] [id number] [place] [address] 8215 Aug, [facility] [address] [id number] [place] [address] 5978 Aug, [facility] [address] [id number] [place] [address] 3852 Aug, [facility] [address] [id number] [place] [address]- 6666 May, [facility] [address] [id number] [place] [address]- 0755 May, [facility] [address] [id number] [place] [address] 8479 May, [facility] [address] [id number] [place] [address] 1283 May, [facility] [address] [id number] [place] [address] 3348 May, [facility] [address] [id number] [place] [address] 9662 16 Apr, 2012 [facility] [place] [facility] [address] [id number] [place] [address] 3884 16 Apr, 2012 [facility] [place] [facility] [address] [id number] [place] [address] Apr, [facility] [place] [facility] [address] [id number] [place] [address]- 6016 Apr, [facility] [place] [facility] [address] [id number] [place] [address]- 0165 Apr, [facility] [place] [facility] [address] [id number] [place] [address]- 9895 Apr, [facility] [place] [facility] [address] [id number] [place] [address]- 3572 Apr, [facility] [place] [facility] [address] [id number] [place] [address]- 4851 Apr, [facility] [place] [facility] [address] [id number] [place] [address] 1459 Mar, [facility] [place] [facility] [address] [id number] [place] [address] 5714 Mar, [facility] [place] [facility] [address] [id number] [place] [address] 9435 Mar, [facility] [place] [facility] [address] [id number], [place] [address]63 Mar, [facility] [place] [facility] [address] [id number] [address] Mar, [facility] [place] [facility] [address] [id number] [place] [address] 9350 Mar, [facility] [place] [facility] [address] [id number] [place] [address] Mar, [facility] [place] [facility] [address] [id number] [place] [address] 1042 Feb, [facility] [place] [facility] [address] [id number] [place] [address]- 8469 24 Feb, 2012 [facility] [place] [facility] [address] [id number] [place] [address]- 0696 20 Feb, 2012 [facility] [place] [facility] [address] [id number] [place] [address] 2546 Feb, [facility] [address] [id number] [place] [address] 5936 Jan, [facility] [place] [facility] [address] [id number] [place] [address]- 8914 Jan, [facility] [place] [facility] [address] [id number] [place] [address]- 6083 Jan, [facility] [place] [facility] [address] [id number] [place] [address]- 6974 15 Jan, 2012 [facility] [place] [facility] [address] [id number] [place] [address] 8343 Jan, [facility] [address] [id number] [place] [address] 3165 Jan, [facility] [place] [facility] [address] [id number] [place] [address]- 8729 Dec, [facility] [address] [id number] [place] [address]- 2141 Dec, [facility] [place] [facility] [address] [id number] [place] [address]- 2544 Dec, [facility] [place] [facility] [address] [id number] [place] [address] 2541 Dec, [facility] [place] [facility] [address] [id number] [place] [address]- 6361 Dec, [facility] [place] [facility] [address] [id number] [place] [address] 2546 Dec, [facility] [place] [facility] [address] [id number] [place] [address]- 6874 Dec, [facility] [place] [facility] [address] [id number] [place] [address]- 3355 Dec, [facility] [place] [facility] [address] [id number] [place] [address]- 3416 Nov, [facility] [place] [facility] [address] [id number] [place] [address]- 8986 Nov, [facility] [place] [facility] [address] [id number] [place] [address]- 2156 Nov, [facility] [place] [facility] [address] [id number] [place] [address]- 8918 Nov, [facility] [place] [facility] [address] [id number] [place] [address]- 6866 October, [facility] [place] [facility] [address] [id number] [place] [address]- 4466 October, [facility] [place] [facility] [address] [id number] [place] [address]- 7982 Sep, [facility] [place] [facility] [address] [id number] [place] [address]- 7483 Sep, [facility] [place] [facility] [address] [id number] [place] [address]- 0692 Aug, [facility] [place] [facility] [address] [id number] [place] [address]- 0706 Aug, [facility] [place] [facility] [address] [id number] [place] [address]- 4536 Aug, [facility] [place] [facility] [address] [id number] [place] [address]- 3050 Aug, [facility] [place] [facility] [address] [id number] [place] [address]- 5076 Aug, [facility] [place] [facility] [address] [id number] [place] [address]- 3836 Jul, [facility] [place] [facility] [address] [id number] [place] [address]- 6251 06 Jul, 2011 [facility] [address] [id number] [place] [address]- 2596 Jul, [facility] [place] [facility] [address] [id number] [place] [address]- 8566 Jul, [facility] [address] [id number] [place] [address]- 6254 Jun, [facility] [place] [facility] [address] [id number] [place] [address]- 8189 Jun, [facility] [place] [facility] [address] [id number] [place] [address]- 6550 Jun, [facility] [place] [facility] [address] [id number] [place] [address]- 8853 Jun, [facility] [address] [id number] [place] [address]- 0294 Jun, [facility] [place] [facility] [address] [id number] [place] [address]- 1331 May, [facility] [place] [facility] [address] [id number] [place] [address]- 1006 May, [facility] [place] [facility] [address] [id number] [place] [address]- 1207 May, [facility] [place] [facility] [address] [id number] [place] [address]- 7796 May, [facility] [place] [facility] [address] [id number] [place] [address]- 6502 May, [facility] [place] [facility] [address] [id number] [place] [address]- 9635 May, [facility] [place] [facility] [address] [id number] [place] [address]- 1187 Apr, [facility] [place] [facility] [address] [id number] [place] [address]- 6445 Apr, [facility] [address] [facility] [id number] [address]- 1616 14 Mar, 2011 [facility] [id number] [address]286 Mar, [facility] [id number], [place] [address]- 2546 October, [facility] [id number] [place] [address]- 2546 May, [facility] [address] [facility] [id number], [place] [address]- 2546 Apr, [facility] [id number] [place] [address]- 8046 Jul, [facility] [id number] [address]- 8086 May, [facility] [id number] [place] [address]- 1226 May, [facility] [id number], [place] [address]- 2336 May, [facility] [id number] [address]- 8876 Apr, [facility] [id number] [address]- 2546 Apr, [facility] [id number] [address]- 9486 Mar, [facility] [address] [id number] [address]- 6640 Jan, [facility] [id number] [address]- 8946 Nov, IMMUNIZATIONS No Known Immunizations SOCIAL HISTORY Never Assessed REASON FOR VISIT PLAN OF CARE VITAL SIGNS MEDICATIONS Medication Instructions Dosage Frequency Start Date End Date Duration Status Bactrim DS 800-160 MG Orally Twice a day 1 tablet 12h Nov,Nov 10 day(s) Active RESULTS No Results PROCEDURES No [...]
--- OUTSIDE RECORDS SUMMARY | 2018-02-19 21:20 | XMS REPORT ---
Author Author BOOGIE ARAUJO Organization [facility] Address [address] [place] [address] Care Team Providers [facility] Name Role Phone BOOGIE ARAUJO Unavailable PROBLEMS Type Condition ICD9-CM Code [id number] Code Onset Dates Condition Status SNOMED Code Problem History of abnormal cervical Pap smear Z87.898 Active 617115755 Problem Thoracogenic scoliosis of thoracolumbar region M41.35 Active 47774255 Problem Uncontrolled type 2 diabetes mellitus without complication, without long-term current use of insulin E11.65 Active 538431901 Problem Diabetes type 2, controlled E11.9 Active 16669553 Problem Thyroid nodule E04.1 Active 057447264 Problem History of colon polyps Z86.010 Active 779507216 Problem Other iron deficiency anemia D50.8 Active 22477097 Problem Iron deficiency anemia due to chronic blood loss D50.0 Active 240076294 Problem Screening breast examination Z12.39 Active 442991252 Problem Allergic rhinitis, unspecified allergic rhinitis trigger, unspecified rhinitis seasonality J30.9 Active 03898286 Problem Controlled type 2 diabetes mellitus without complication, without long -term current use of insulin E11.9 Active 850596829 Problem Other chronic pain G89.29 Active 71944239 ALLERGIES No Information ENCOUNTERS Encounter Location Date Diagnosis [place] [id number] [place] [address] 32556- 5841 Jan, Diabetes type 2, controlled E11.9 ; Controlled type 2 diabetes mellitus without complication, without long-term current use of insulin E11.9 and Pneumonia of right lower lobe due to infectious organism J18.1 [facility] [id number] [place] [address] 18821- 4032 Jan, Other chronic pain G89.29 [facility] [id number] [address] 2[address] Dec, Other chronic pain G89.29 [facility] [address] [facility] [id number] [address] 06 Dec, 2017 Diabetes type 2, controlled E11.9 [facility] [address] [facility] [id number] [address] 9877 Nov, Other chronic pain G89.29 [facility] [address] [facility] [id number] [address] 0635 Nov, [facility] [address] [facility] [id number] [address] Nov, [facility] [address] [facility] [id number] [place] [address] 74529- 3145 October, Diabetes type 2, controlled E11.9 and Acute cystitis without hematuria N30.00 [facility] [address] [address] 0755 October, [facility] [id number] [place] [address] 95957- 9744 October, [facility] [address] [address]- 1082 October, [facility] [id number] [place] [address] 48560- 3443 October, Other chronic pain G89.29 [facility] [id number] [address] 6630 Sep, Diabetes type 2, controlled E11.9 [facility] [address] [facility] [id number] [address]- 0182 Sep, [facility] [id number] [address]- 5458 Sep, Diabetes type 2, controlled E11.9 [facility] [id number] [address]- 2904 Sep, Other chronic pain G89.29 [facility] [id number] [place] [address] 53630- 2397 Sep, Other iron deficiency anemia D50.8 [place] [id number] [place] [address] 02341- 2856 Sep, Other iron deficiency anemia D50.8 [place] [id number] [place] [address] 01974- 1065 Sep, Iron deficiency anemia due to chronic blood loss D50.0 and Dysuria R30.0 [place] [id number] [place] [address] 03585- 5850 Sep, Dysuria R30.0 [place] [id number] [place] [address] 96790- 7505 Sep, Iron deficiency anemia due to chronic blood loss D50.0 [place] [id number] [place] [address] 33268- 9391 Sep, [place] [id number] [place] [address] 09132- 9681 Sep, Controlled type 2 diabetes mellitus without complication, without long-term current use of insulin E11.9 ; Leg cramps R25.2 ; Low back pain M54.5 and Other chronic pain G89.29 [place] [id number] [place] [address] 64712- 8070 Sep, Controlled type 2 diabetes mellitus without complication, without long-term current use of insulin E11.9 ; Low back pain M54.5 ; Other chronic pain G89.29 and Leg cramps R25.2 [place] [id number] [place] [address] 53320- 0179 Aug, Other chronic pain G89.29 [place] [id number] [place] [address] 49653- 0358 Jul, Other chronic pain G89.29 [place] [id number] [place] [address] 48540- 1855 Jul, Pneumonia of left lower lobe due to infectious organism J18.1 [facility] [address] [address]78 12 Jul, 2017 Dysuria R30.0 ; Cough in adult patient R05 and Pneumonia of left lower lobe due to infectious organism J18.1 [facility] [address] [address]- 1423 08 Jul, 2017 [facility] [address] [place] [address] 11249- 7297 Jun, Other chronic pain G89.29 [facility] [address] [address]- 0380 Jun, [facility] [address] [place] [address] 59709- 3725 Jun, Diabetes type 2, controlled E11.9 ; Back muscle spasm M62.830 and Other chronic pain G89.29 [facility] [id number] [place] [address] 44512- 7348 Jun, Screening breast examination Z12.31 [facility] [address] [place] [address] 60015- 1777 May, Other chronic pain G89.29 [facility] [address] [address]- 7256 May, [facility] [address], [place] [address]- 2784 May, UTI (urinary tract infection) N39.0 [facility] [address] [address]- 6760 04 May, 2017 Dysuria R30.0 [facility] [address], [place] [address]- 3318 May, Dysuria R30.0 [facility] [address] [address]- 0938 May, Diabetes type 2, controlled E11.9 ; 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.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 and Other chronic pain G89.29 [facility] [address] [place] [address] 43934- 9529 Apr, Diabetes type 2, controlled E11.9 [facility] [id number] [place] [address] 91097 -1115 Mar, Paronychia of great toe, right L03.031 and Dysuria R30.0 [facility] [id number] [place] [address] 08220- 9605 Mar, Diabetes type 2, controlled E11.9 [facility] [id number] [place] [address] 06766- 3102 28 Feb, 2017 Diabetes type 2, controlled E11.9 [facility] [place] [id number] [place] [address] [id number] 13 Feb, 2017 Dental examination Z01.20 [facility] [id number] [place] [address] 69491- 9381 11 Feb, 2017 Diabetes type 2, controlled E11.9 [facility] [id number] [place] [address] 07387- 1698 07 Feb, 2017 Diabetes type 2, controlled E11.9 [facility] [id number] [place] [address] 68257- 1910 14 Jan, 2017 Diabetes type 2, controlled E11.9 [facility] [id number] [place] [address] 95633- 8820 Dec, Diabetes type 2, controlled E11.9 [facility] [id number] [place] [address] 18629- 8005 Dec, Diabetes type 2, controlled E11.9 [facility] [id number] [place] [address] 42990- 0523 Nov, Diabetes type 2, controlled E11.9 [facility] [id number] [place] [address] 82394- 5418 Nov, Diabetes type 2, controlled E11.9 [facility] [address] [address]- 3604 Nov, Diabetes type 2, controlled E11.9 [facility] [id number] [place] [address] 46785- 5226 Nov, Diabetes type 2, controlled E11.9 [facility] [id number] [place] [address] 42236- 9302 Nov, Diabetes type 2, controlled E11.9 [facility] [id number] [place] [address] 08594- 5314 Nov, Diabetes type 2, controlled E11.9 [place] [id number] [place] [address] 52834- 7162 October, Pain in unspecified shoulder M25.519 [place] [id number] [place] [address] 70405- 5354 October, Diabetes type 2, controlled E11.9 and Cellulitis of right lower extremity L03.115 [facility] [id number] [place] [address] 82994- 1490 October, Pain in unspecified shoulder M25.519 [facility] [id number] [place] [address] 39306- 6801 Sep, Diabetes type 2, controlled E11.9 [facility] [address] [place] [address] 55860- 2054 Aug, Pain in unspecified shoulder M25.519 [facility] [id number] [place] [address] 97459- 5863 Aug, Diabetes type 2, controlled E11.9 [facility] [id number] [place] [address] 13447- 2904 Aug, Diabetes type 2, controlled E11.9 ; Dark urine R82.99 and Localized edema R60.0 [facility] [id number] [place] [address] 39695- 9526 Aug, Pain in unspecified shoulder M25.519 [facility] [id number] [place] [address] 31640- 9122 07 Jul, 2016 Pain in unspecified shoulder M25.519 [facility] [id number] [place] [address] 19067- 5022 06 Jul, 2016 [place] [id number] [place] [address] 21031- 4556 02 Jul, 2016 Diabetes type 2, 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 E11.9 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 [place] [id number] [place] [address] 68023- 8772 Jun, Diabetes type 2, controlled E11.9 [place] [id number] [place] [address] 73953- 9523 Jun, Screening breast examination Z12.39 and Allergic rhinitis, unspecified allergic rhinitis trigger, unspecified rhinitis seasonality J30.9 [place] [id number] [place] [address] 44213- 7850 Jun, Pain in unspecified shoulder M25.519 [place] [id number] [place] [address] 49311- 5473 May, [place] [id number] [place] [address] 03018- 2904 May, Pain in unspecified shoulder M25.519 [place] [id number] [place] [address] 18768- 4113 05 May, 2016 Thoracogenic scoliosis of thoracolumbar region M41.35 ; Low back pain M54.5 ; Other chronic pain G89.29 and Uncontrolled type 2 diabetes mellitus without complication, without long-term current use of insulin E11.65 [facility] [id number] [place] [address] 56678- 1416 Apr, [place] [id number] [place] [address] 43813- 3173 Apr, [facility] [address] [address]- 3708 Apr, History of type 2 diabetes mellitus Z86.39 and Encounter for immunization Z23 [facility] [address], [place] [address]- 5860 Mar, [facility] [id number] [place] [address] 51638- 8203 Mar, [facility] [id number] [place] [address] 80347- 2950 Feb, [facility] [id number] [place] [address] 64111- 3693 Jan, [facility] [id number] [place] [address] 54110- 3307 Jan, [facility] [id number] [place] [address] 10163- 5179 Dec, [facility] [address] [address] -9591 Dec, Sore throat J02.9 and Allergic rhinitis, unspecified allergic rhinitis type J30.9 [facility] [id number] [place] [address] 56715- 1933 Dec, Diabetes type 2, controlled E11.9 [facility] [address] [address]- 0020 Nov, [facility] [id number] [place] [address] 92810- 5414 Nov, [facility] [id number] [place] [address] 23374- 4949 October, [facility] [id number] [place] [address] 55025- 2108 October, [facility] [address] [address]- 0673 Sep, [facility] [address] [address]- 5520 Aug, [place] [id number] [place] [address] 33607- 7681 Aug, Diabetes type 2, controlled E11.9 ; UTI (urinary tract infection) N39.0 and Bacterial infection A49.9 [place] [id number] [place] [address] 22261- 4206 Jul, [place] [id number] [place] [address] 26426- 6226 Jul, [place] [id number] [place] [address] 02219- 0283 Jul, Pharyngitis J02.9 and Seborrheic keratoses L82.1 [place] [id number] [place] [address] 89735- 9171 Jun, [place] [id number] [place] [address] 80205- 1310 May, [place] [id number] [place] [address] 75132- 7106 May, Skin tags, multiple acquired L91.8 ; Seborrheic keratoses L82.1 and Diabetes type 2, controlled E11.9 [address] [place] [address] 33669- 6768 May, Well woman exam Z01.419 ; Papanicolaou [...] Other fatigue R53.83 and Other hemorrhoids K64.8 [place] [id number] [place] [address] 04568- 1387 May, [facility] [id number] [place] [address] 01491- 3322 May, [facility] [id number] [place] [address] 88790- 9915 Apr, Seborrheic keratosis L82.1 and Diabetes type 2, controlled E11.9 [facility] [id number] [place] [address] 20566- 9359 Apr, Seborrheic keratosis L82.1 and Diabetes type 2, controlled E11.9 [facility] [id number] [place] [address] 92972- 0698 Mar, [facility] [id number] [place] [address] 80740- 9169 Mar, [facility] [id number] [place] [address] 99712- 7248 Mar, Nevoid hyperpigmentation L81.9 ; Encounter for immunization Z23 ; Skin tags, multiple acquired L91.8 and Seborrheic keratoses L82.1 [facility] [id number] [place] [address] 21930- 7761 Feb, [facility] [id number] [place] [address] 02221- 4301 Feb, [facility] [id number] [place] [address] 36674- 6355 Feb, [facility] [id number] [place] [address] 60527- 4939 Feb, Diabetes 250.00 ; Tinea corporis 110.5 and Shoulder pain, left 719.41 [facility] [id number] [place] [address] 61228- 2872 Jan, [facility] [id number] [place] [address] 84188- 6217 Dec, [facility] [address] [address]- 4427 Dec, [facility] [address] 4585 Dec, Seborrheic keratoses 702.19 ; Diabetes 250.00 and Hypoglycemia 251.2 [facility] [address] [address]- 5843 Nov, [facility] [id number] [place] [address] 09010- 7178 Nov, Abnormal mammogram 793.80 [facility] [id number] [place] [address] 94499- 5942 October, Diabetes 250.00 and Colon polyp 211.3 [facility] [id number] [place] [address] 89856- 0906 Sep, [facility] [id number] [place] [address] 07232- 5541 Sep, [facility] [address] [address]- 8628 Sep, [facility] [address] [address]- 5166 Aug, [facility] [address] [address]- 6331 Aug, [facility] [address] [address]- 6134 Jul, [facility] [address] 6230 Jul, [facility] [address] [address]- 1133 Jun, [facility] [address] [address]- 9919 Jun, [facility] [address] [address]- 3178 Jun, [facility] [place] [facility] [address] [id number] [place] [address]- 3884 Jun, [facility] [place] [facility] [address] [id number] [place] [address]- 4355 Jun, [facility] [place] [facility] [address] [id number] [place] [address]- 2755 Jun, [facility] [place] [facility] [address] [id number] [place] [address]- 1048 May, [facility] [place] [facility] [address] [id number] [place] [address]- 5535 May, [facility] [place] [facility] [address] [id number] [place] [address]- 1474 Apr, [facility] [place] [facility] [address] [id number] [place] [address]- 5844 Apr, [facility] [place] [facility] [address] [id number] [address]- 2686 Apr, [facility] [place] [facility] [address] [id number] [address]- 0237 Apr, [facility] [place] [facility] [address] [id number] [place] [address]- 2045 Apr, [facility] [place] [facility] [address] [id number] [address]- 0787 Apr, [facility] [place] [facility] [address] [id number] [address]- 6606 Apr, [facility] [place] [facility] [address] [id number] [place] [address]- 1562 Apr, [facility] [place] [facility] [address] [id number] [address]- 6884 Apr, [facility] [place] [facility] [address] [id number] [address]- 2004 Apr, [facility] [place] [facility] [address] [id number] [place] [address]- 6778 Mar, [facility] [place] [facility] [address] [id number] [place] [address]- 8990 Mar, [facility] [place] [facility] [address] [id number] [place] [address]- 6223 Mar, [facility] [place] [facility] [address] [id number] [place] [address]- 3000 Mar, [facility] [place] [facility] [address] [id number] [place] [address]- 0437 Mar, [facility] [place] [facility] [address] [id number] [place] [address]- 8568 Mar, [facility] [place] [facility] [address] [id number] [place] [address]- 1104 Mar, [facility] [place] [facility] [address] [id number] [place] [address]- 1362 Mar, [facility] [place] [facility] [address] [id number] [place] [address]- 2353 Feb, [facility] [place] [facility] [address] [id number] [place] [address]- 7096 Feb, [facility] [place] [facility] [address] [id number] [place] [address]- 4314 Feb, [facility] [place] [facility] [address] [id number] [place] [address]- 6755 Feb, [facility] [place] [facility] [address] [id number] [place] [address]- 0280 Jan, [facility] [place] [facility] [address] [id number] [place] [address]- 0833 Jan, [facility] [place] [facility] [address] [id number] [place] [address]- 9150 Dec, [facility] [place] [facility] [address] [id number] [place] [address]- 6599 Dec, [facility] [place] [facility] [address] [id number] [place] [address]- 8044 Nov, [facility] [place] [facility] [address] [id number] [place] [address]- 7212 Nov, [facility] [place] [facility] [address] [id number] [place] [address]- 2169 Nov, [facility] [place] [facility] [address] [id number] [place] [address]- 7988 Nov, [facility] [place] [facility] [address] [id number] [place] [address]- 5755 October, [facility] [place] [facility] [address] [id number] [place] [address]- 2242 October, [facility] [place] [facility] [address] [id number] [place] [address]- 2320 October, [facility] [place] [facility] [address] [id number] [place] [address]- 8825 October, [facility] [place] [facility] [address] [id number] [place] [address]- 0759 October, [facility] [place] [facility] [address] [id number] [place] [address]- 5526 October, [facility] [place] [facility] [address] [id number] [place] [address]- 2835 October, [facility] [place] [facility] [address] [id number] [place] [address] October, [facility] [place] [facility] [address] [id number] [place] [address] Aug, [facility] [place] [facility] [address] [id number] [place] [address] Aug, [facility] [place] [facility] [address] [id number] [place] [address] Jul, [facility] [place] [facility] [address] [id number] [address] Jul, [facility] [place] [facility] [address] [id number] [place] [address] Jul, [facility] [place] [facility] [address] [id number] [place] [address] Jul, [facility] [place] [facility] [address] [facility] [id number] [place] [address] Jul, [facility] [place] [facility] [address] [id number] [place] [address] Jun, [facility] [place] [facility] [address] [id number] [place] [address] Jun, [facility] [place] [facility] [address] [facility] [id number] [place] [address] May, [facility] [place] [facility] [address] [facility] [id number] [place] [address] May, [facility] [place] [facility] [address] [facility] [id number] [place] [address] Apr, [facility] [place] [facility] [address] [facility] [id number] [place] [address] Apr, [facility] [place] [facility] [address] [facility] [id number] [place] [address] Mar, [facility] [place] [facility] [address] [facility] [id number] [place] [address] Mar, [facility] [place] [facility] [address] [facility] [id number], [place] [address] Mar, [facility] [place] [facility] [address] [id number] [place] [address] Feb, [facility] [place] [facility] [address] [facility] [id number] [place] [address] 20 Feb, 2013 [facility] [place] [facility] [address] [facility] [id number] [place] [address] 17 Feb, 2013 [facility] [place] [facility] [address] [id number] [place] [address] Feb, [facility] [address] [id number] [place] [address] Feb, [facility] [address] [id number] [place] [address] Jan, [facility] [address] [id number] [place] [address] Dec, [facility] [address] [id number] [place] [address] Nov, [facility] [address] [id number] [place] [address] October, [facility] [address] [id number] [place] [address] Sep, [facility] [address] [id number] [place] [address] Aug, [facility] [address] [id number] [place] [address] Aug, [facility] [address] [id number] [place] [address] Aug, [facility] [address] [id number] [place] [address] May, [facility] [address] [id number] [place] [address] May, [facility] [address] [id number] [place] [address] May, [facility] [address] [id number] [place] [address] May, [facility] [address] [id number] [place] [address] May, [facility] [address] [id number] [place] [address] 16 Apr, 2012 [facility] [place] [facility] [address] [id number] [place] [address] 16 Apr, 2012 [facility] [place] [facility] [address] [id number] [place] [address] Apr, [facility] [place] [facility] [address] [id number] [place] [address] Apr, [facility] [place] [facility] [address] [id number] [place] [address] Apr, [facility] [place] [facility] [address] [id number] [place] [address] Apr, [facility] [place] [facility] [address] [id number] [place] [address] Apr, [facility] [place] [facility] [address] [id number] [place] [address] Apr, [facility] [place] [facility] [address] [id number] [place] [address] Mar, [facility] [place] [facility] [address] [id number] [place] [address] Mar, [facility] [place] [facility] [address] [id number] [place] [address]46 Mar, [facility] [place] [facility] [address] [id number] [address] Mar, [facility] [place] [facility] [address] [id number], [place] [address] Mar, [facility] [place] [facility] [address] [id number] [place] [address] Mar, [facility] [place] [facility] [address] [id number] [place] [address] Mar, [facility] [place] [facility] [address] [id number] [place] [address] Feb, [facility] [place] [facility] [address] [id number] [place] [address] 24 Feb, 2012 [facility] [place] [facility] [address] [id number] [place] [address] 20 Feb, 2012 [facility] [place] [facility] [address] [id number] [place] [address] Feb, [facility] [address] [id number] [place] [address] Jan, [facility] [place] [facility] [address] [id number] [place] [address] Jan, [facility] [place] [facility] [address] [id number] [place] [address] Jan, [facility] [place] [facility] [address] [id number] [place] [address]99 15 Jan, 2012 [facility] [place] [facility] [address] [id number] [place] [address] Jan, [facility] [address] [id number] [place] [address] [address] Jan[facility] [place] [facility] [address] [id number] [place] [address] Dec, [facility] [address] [id number] [place] [address] Dec, [facility] [place] [facility] [address] [id number] [place] [address] Dec, [facility] [place] [facility] [address] [id number] [place] [address] 2542 Dec, [facility] [place] [facility] [address] [id number] [place] [address]30 Dec, [facility] [place] [facility] [address] [id number] [place] [address] 2546 Dec, [facility] [place] [facility] [address] [id number] [place] [address] Dec, [facility] [place] [facility] [address] [id number] [place] [address] Dec, [facility] [place] [facility] [address] [id number] [place] [address] Nov, [facility] [place] [facility] [address] [id number] [place] [address] Nov, [facility] [place] [facility] [address] [id number] [place] [address] Nov, [facility] [place] [facility] [address] [id number] [place] [address]- 67[address] Nov, [facility] [place] [facility] [address] [id number] [place] [address]- [address] October, [facility] [place] [facility] [address] [id number] [place] [address]- [address]656 October, [facility] [place] [facility] [address] [id number] [place] [address] Sep, [facility] [place] [facility] [address] [id number] [place] [address]- [address]99 Sep, [facility] [place] [facility] [address] [id number] [place] [address] Aug, [facility] [place] [facility] [address] [id number] [place] [address]- [address] Aug, [facility] [place] [facility] [address] [id number] [place] [address]- 7[address] Aug, [facility] [place] [facility] [address] [id number] [place] [address]- [address]44 Aug, [facility] [place] [facility] [address] [id number] [place] [address]- 2356 Aug, [facility] [place] [facility] [address] [id number] [place] [address]- 6196 Jul, [facility] [place] [facility] [address] [id number] [place] [address]- [address] 06 Jul, 2011 [facility] [address] [id number] [place] [address]- [address]326 Jul, [facility] [place] [facility] [address] [id number] [place] [address]- 6766 Jul, [facility] [address] [id number] [place] [address]- 28[address] Jun, [facility] [place] [facility] [address] [id number] [place] [address] Jun, [facility] [place] [facility] [address] [id number] [place] [address]- [address] Jun, [facility] [place] [facility] [address] [id number] [place] [address]- 2421 Jun, [facility] [address] [id number] [place] [address]- 3839 Jun, [facility] [place] [facility] [address] [id number] [place] [address]- 6882 May, [facility] [place] [facility] [address] [id number] [place] [address]- 0195 May, [facility] [place] [facility] [address] [id number] [place] [address]- [address]127 May, [facility] [place] [facility] [address] [id number] [place] [address]- 6876 May, [facility] [place] [facility] [address] [id number] [place] [address]- 6534 May, [facility] [place] [facility] [address] [id number] [place] [address]- 9113 May, [facility] [place] [facility] [address] [id number] [place] [address]- 4645 Apr, [facility] [place] [facility] [address] [id number] [place] [address]- 2852 Apr, [facility] [address] [facility] [id number] [address] 14 Mar, 2011 [facility] [address] [facility] [id number] [address] Mar, [facility] [address] [facility] [id number] [address] October, [facility] [id number] [place] [address] May, [facility] [address] [facility] [id number] [address] Apr, [facility] [address] [facility] [id number] [place] [address]- [address] Jul, [facility] [id number] [address]- [address] May, [facility] [id number] [address]- 8095 May, [facility] [id number] [address]- 38[address] May, [facility] [id number], [place] [address]- 1413 Apr, [facility] [id number] [address]- 8239 Apr, [facility] [id number] [address] Mar, [facility] [address] [id number] [address]- [address] Jan, [facility] [id number] [address] Nov, IMMUNIZATIONS No Known Immunizations SOCIAL HISTORY Never Assessed REASON FOR VISIT Lab results PLAN OF CARE VITAL SIGNS MEDICATIONS Unknown [...]
--- OUTSIDE RECORDS SUMMARY | 2018-02-19 21:21 | XMS REPORT ---
Author Author BOOGIE ARAUJO [facility] Address [address] [place] [address] Care Team Providers Care Actuarial Director Name Role Phone BOOGIE ARAUJO Unavailable PROBLEMS Type Condition ICD9-CM Code KYR94-WE Code Onset Dates Condition Status SNOMED Code Problem History of abnormal cervical Pap smear Z87.898 Active 491177210 Problem Thoracogenic scoliosis of thoracolumbar region M41.35 Active 07417180 Problem Uncontrolled type 2 diabetes mellitus without complication, without long-term current use of insulin E11.65 Active 483765733 Problem Diabetes type 2, controlled E11.9 Active 13050791 Problem Thyroid nodule E04.1 Active 896364399 Problem History of colon polyps Z86.010 Active 927044871 Problem Other iron deficiency anemia D50.8 Active 11492867 Problem Iron deficiency anemia due to chronic blood loss D50.0 Active 647964198 Problem Screening breast examination Z12.39 Active 690152542 Problem Allergic rhinitis, unspecified allergic rhinitis trigger, unspecified rhinitis seasonality J30.9 Active 14427614 Problem Controlled type 2 diabetes mellitus without complication, without long -term current use of insulin E11.9 Active 208064697 Problem Other chronic pain G89.29 Active 02122957 ALLERGIES Substance Reaction Event Type Date Status [...] Active Augmentin Unknown Drug Allergy October, Active ENCOUNTERS Encounter Location Date Diagnosis [facility] [address] [facility] [id number] [address] Jan, [facility] [address] [facility] [id number][place] [address] Jan, Other chronic pain G89.29 [facility] [address] [facility] [id number] [address] Dec, Other chronic pain G89.29 [facility] [address] [facility] [id number] [address] 7976 Dec, Diabetes type 2, controlled E11.9 [facility] [address] [facility] [id number] [address] 49[address] Nov, Other chronic pain G89.29 [facility] [address] [facility] [id number] [address] Nov, [facility] [address] [address] Nov, [facility] [address], [place] [address] 8534 October, Diabetes type 2, controlled E11.9 and Acute cystitis without hematuria N30.00 [facility] [address], [place] [address] 4[address] October, [facility] [address] [address] 7[address] October, [facility] [address] [address] 8[address] October, [facility] [address] [id number] [address] 0205 October, Other chronic pain G89.29 [facility] [address]65[address] [address] Sep, Diabetes type 2, controlled E11.9 [facility] [address] [id number] [address]- 6586 Sep, [facility] [id number] [place] [address] 42034- 5314 Sep, Diabetes type 2, controlled E11.9 [facility] [id number] [place] [address] 83627- 5758 Sep, Other chronic pain G89.29 [facility] [id number] [place] [address] 38420- 9923 Sep, Other iron deficiency anemia D50.8 [facility] [id number] [place] [address] 94782- 1873 Sep, Other iron deficiency anemia D50.8 [facility] [id number] [place] [address] 30423- 9030 Sep, Iron deficiency anemia due to chronic blood loss D50.0 and Dysuria R30.0 [facility] [id number] [place] [address] 52304- 3727 Sep, Dysuria R30.0 [facility] [id number] [place] [address] 41923- 0084 Sep, Iron deficiency anemia due to chronic blood loss D50.0 [facility] [id number] [place] [address] 52126- 5494 Sep, [facility] [id number] [place] [address] 88462- 3570 Sep, Controlled type 2 diabetes mellitus without complication, without long-term current use of insulin E11.9 ; Leg cramps R25.2 ; Low back pain M54.5 and Other chronic pain G89.29 [facility] [id number] [place] [address] 68702- 9177 Sep, Controlled type 2 diabetes mellitus without complication, without long-term current use of insulin E11.9 ; Low back pain M54.5 ; Other chronic pain G89.29 and Leg cramps R25.2 [facility] [id number] [place] [address] 32836- 1489 Aug, Other chronic pain G89.29 [facility] [address] [address] 3258 19 Jul, 2017 Other chronic pain G89.29 [facility] [address]100[place], [place] [address] 0212 16 Jul, 2017 Pneumonia of left lower lobe due to infectious organism J18.1 [facility] [address] [address] Jul, Dysuria R30.0 ; Cough in adult patient R05 and Pneumonia of left lower lobe due to infectious organism J18.1 [facility] [address] [address]- 5843 08 Jul, 2017 [facility] [address] [address]- 8444 Jun, Other chronic pain G89.29 [facility] [address] [address] 4554 Jun, [facility] [id number] [place] [address] 23707- 0766 Jun, Diabetes type 2, controlled E11.9 ; Back muscle spasm M62.830 and Other chronic pain G89.29 [facility] [address] [address]- 2325 Jun, Screening breast examination Z12.31 [facility] [address], [place] [address]- 4504 May, Other chronic pain G89.29 [facility] [address], [place] [address]- 7402 May, [facility] [id number] [place] [address] 61187- 5582 May, UTI (urinary tract infection) N39.0 [facility] [address] [address]- 4981 May, Dysuria R30.0 [place] [id number] [place] [address] 95681- 9545 04 May, 2017 Dysuria R30.0 [facility] [id number] [place] [address] 48363- 2616 04 May, 2017 Diabetes type 2, controlled E11.9 ; 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 and Other chronic pain G89.29 [facility] [id number] [place] [address] 14694- 8869 Apr, Diabetes type 2, controlled E11.9 [facility] [id number] [place] [address] 62397 -2295 Mar, Paronychia of great toe, right L03.031 and Dysuria R30.0 [facility] [id number] [place] [address] 70575- 7083 Mar, Diabetes type 2, controlled E11.9 [facility] [id number] [place] [address] 71955- 8511 28 Feb, 2017 Diabetes type 2, controlled E11.9 [facility] [id number] [place] [address] [id number] 13 Feb, 2017 Dental examination Z01.20 [facility] [id number] [place] [address] 05346- 3310 11 Feb, 2017 Diabetes type 2, controlled E11.9 [facility] [id number] [place] [address] 82341- 4720 07 Feb, 2017 Diabetes type 2, controlled E11.9 [facility] [id number] [place] [address] 08633- 1190 14 Jan, 2017 Diabetes type 2, controlled E11.9 [facility] [id number] [place] [address] 20616- 9815 Dec, Diabetes type 2, controlled E11.9 [facility] [id number] [place] [address] 57665- 9885 Dec, Diabetes type 2, controlled E11.9 [facility] [address] [address]- 6237 Nov, Diabetes type 2, controlled E11.9 [facility] [address], [place] [address]- 8376 Nov, Diabetes type 2, controlled E11.9 [facility] [id number] [place] [address] 63430- 3857 Nov, Diabetes type 2, controlled E11.9 [facility] [id number] [place] [address] 63218- 2515 Nov, Diabetes type 2, controlled E11.9 [facility] [id number] [place] [address] 22963- 6911 Nov, Diabetes type 2, controlled E11.9 [facility] [id number] [place] [address] 66819- 1567 Nov, Diabetes type 2, controlled E11.9 [facility] [id number] [place] [address] 26575- 6514 October, Pain in unspecified shoulder M25.519 [facility] [id number] [place] [address] 02667- 7825 October, Diabetes type 2, controlled E11.9 and Cellulitis of right lower extremity L03.115 [facility] [address], [place] [address]- 1187 October, Pain in unspecified shoulder M25.519 [facility] [address], [place] [address]- 0234 Sep, Diabetes type 2, controlled E11.9 [facility] [address], [place] [address]- 3376 Aug, Pain in unspecified shoulder M25.519 [facility] [address], [place] [address]- 0757 Aug, Diabetes type 2, controlled E11.9 [place] [id number] [place] [address] 32243- 4573 09 Aug, 2016 Diabetes type 2, controlled E11.9 ; Dark urine R82.99 and Localized edema R60.0 [place] [id number] [place] [address] 86860- 2153 07 Aug, 2016 Pain in unspecified shoulder M25.519 [place] [address] 42413- 9661 07 Jul, 2016 Pain in unspecified shoulder M25.519 [place] [id number] [place] [address] 50192- 8755 Jul, [place] [id number] [place] [address] 11897- 1667 02 Jul, 2016 Diabetes type 2, controlled E11.9 and 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 [place] [id number] [place] [address] 36854- 3180 Jun, Diabetes type 2, controlled E11.9 [place] [id number] [place] [address] 23927- 1996 Jun, Screening breast examination Z12.39 and Allergic rhinitis, unspecified allergic rhinitis trigger, unspecified rhinitis seasonality J30.9 [place] [id number] [place] [address] 86536- 0160 Jun, Pain in unspecified shoulder M25.519 [place] [id number] [place] [address] 25647- 6465 May, [place] [id number] [place] [address] 85460- 8635 May, Pain in unspecified shoulder M25.519 [place] [id number] [place] [address] 25392- 0658 05 May, 2016 Thoracogenic scoliosis of thoracolumbar region M41.35 ; Low back pain M54.5 ; Other chronic pain G89.29 and Uncontrolled type 2 diabetes mellitus without complication, without long-term current use of insulin E11.65 [facility] [address] [address]- 2692 Apr, [facility] [id number] [place] [address] 17407- 0962 Apr, [facility] [id number] [place] [address] 24663- 5254 Apr, History of type 2 diabetes mellitus Z86.39 and Encounter for immunization Z23 [facility] [id number] [place] [address] 43624- 0842 Mar, [facility] [id number] [place] [address] 47695- 2632 Mar, [facility] [id number] [place] [address] 24076- 5641 Feb, [facility] [id number] [place] [address] 96775- 0433 Jan, [facility] [id number] [place] [address] 71540- 2272 Jan, [facility] [id number] [place] [address] 34434- 4494 Dec, [facility] [id number] [place] [address] 26971 -4543 Dec, Sore throat J02.9 and Allergic rhinitis, unspecified allergic rhinitis type J30.9 [facility] [id number] [address]- 0760 Dec, Diabetes type 2, controlled E11.9 [facility] [id number] [place] [address] 79503- 8239 Nov, [facility] [id number] [place] [address] 29764- 5584 Nov, [facility] [id number] [place] [address] 91570- 1846 October, [facility] [address], [place] [address]- 5778 October, [facility] [id number] [place] [address] 850014- 0874 Sep, [facility] [id number] [place] [address] 799846- 0777 Aug, [facility] [id number] [place] [address] 219124- 6874 Aug, Diabetes type 2, controlled E11.9 ; UTI (urinary tract infection) N39.0 and Bacterial infection A49.9 [place] [address] [place] [address] 58111- 1751 Jul, [place] [id number] [place] [address] 94089- 4983 Jul, [facility] [id number] [place] [address] 59872- 1011 Jul, Pharyngitis J02.9 and Seborrheic keratoses L82.1 [place] [address] [address]- 1529 Jun, [place] [address], [place] [address]- 6750 May, [place] [address] [place] [address] 51007- 3524 May, Skin tags, multiple acquired L91.8 ; Seborrheic keratoses L82.1 and Diabetes type 2, controlled E11.9 [place] [address] [place] [address] 94469- 2744 May, Well woman exam Z01.419 ; Papanicolaou [...] R53.83 and Other hemorrhoids K64.8 [place] [id number] [place] [address] 22762- 0514 15 May, [address] 24087- 7972 May, [place] [address] 47356- 6606 Apr, Seborrheic keratosis L82.1 and Diabetes type 2, controlled E11.[address] 22905- 5565 Apr, Seborrheic keratosis L82.1 and Diabetes type 2, controlled E11.[address] 61223- 2645 Mar, [place] [address] 94266- 0126 Mar, [address] 66209- 6073 Mar, Nevoid hyperpigmentation L81.9 ; Encounter for immunization Z23 ; Skin tags, multiple acquired L91.8 and Seborrheic keratoses L82.1 [place] [id number] [place] [address] 48192- 0070 Feb, [place] [address] 49982- 2765 Feb, [address] 23987- 9765 Feb, [place] [address] 39377- 2639 Feb, Diabetes 250.00 ; Tinea corporis 110.5 and Shoulder pain, left 719.41 [facility] [address], [place] [address]- 9252 Jan, [facility] [id number] [place] [address] 52827- 8562 Dec, [facility] [id number] [place] [address] 85437- 1176 Dec, [facility] [id number] [place] [address] 58253- 6416 Dec, Seborrheic keratoses 702.19 ; Diabetes 250.00 and Hypoglycemia 251.2 [facility] [id number] [place] [address] 33178- 5497 Nov, [facility] [id number] [place] [address] 86980- 3476 Nov, Abnormal mammogram 793.80 [facility] [id number] [place] [address] 61797- 6107 October, Diabetes 250.00 and Colon polyp 211.3 [facility] [address] [place] [address] 48117- 8857 Sep, [facility] [address], [place] [address]- 7103 Sep, [facility] [address], [place] [address]- 9985 Sep, [facility] [address], [place] [address]- 6623 Aug, [facility] [address], [place] [address]- 3963 Aug, [facility] [address], [place] [address]- 9530 Jul, [facility] [address], [place] [address]- 9169 Jul, [facility] [address] [id number] [place] [address]- 4119 Jun, [facility] [place] [facility] [address] [id number] [place] [address]- 2128 Jun, [facility] [place] [facility] [address] [id number] [place] [address]- 7526 Jun, [facility] [place] [facility] [address] [id number] [place] [address]- 3977 Jun, [facility] [place] [facility] [address] [id number] [place] [address]- 2030 Jun, [facility] [place] [facility] [address] [id number] [place] [address]- 4112 Jun, [facility] [place] [facility] [address] [id number] [place] [address]- 5848 May, [facility] [place] [facility] [address] [id number] [place] [address]- 8307 May, [facility] [place] [facility] [address] [id number] [place] [address]- 1808 Apr, [facility] [place] [facility] [address] [id number] [place] [address]- 4107 Apr, [facility] [place] [facility] [address] [id number] [place] [address]- 3102 Apr, [facility] [place] [facility] [address] [id number] [place] [address]- 8050 Apr, [facility] [place] [facility] [address] [id number] [place] [address]- 0736 Apr, [facility] [place] [facility] [address] [id number] [place] [address]- 6186 Apr, [facility] [place] [facility] [address] [id number] [place] [address]- 3404 Apr, [facility] [place] [facility] [address] [id number] [place] [address]- 3945 Apr, [facility] [place] [facility] [address] [id number] [place] [address]- 5072 Apr, [facility] [place] [facility] [address] [id number] [place] [address]- 5846 Apr, [facility] [place] [facility] [address] [id number] [place] [address]- 0188 Mar, [facility] [place] [facility] [address] [id number] [place] [address]- 4801 Mar, [facility] [place] [facility] [address] [id number] [place] [address]- 2517 Mar, [facility] [place] [facility] [address] [id number] [place] [address]- 6475 Mar, [facility] [place] [facility] [address] [id number] [place] [address]- 6701 Mar, [facility] [place] [facility] [address] [id number] [place] [address]- 6263 Mar, [facility] [place] [facility] [address] [id number] [place] [address]- 7439 Mar, [facility] [place] [facility] [address] [id number] [place] [address]- 4014 Mar, [facility] [place] [facility] [address] [id number] [address]- 5308 Feb, [facility] [place] [facility] [address] [id number] [address]- 4322 Feb, [facility] [place] [facility] [address] [id number] [place] [address]- 5870 Feb, [facility] [place] [facility] [address] [id number] [place] [address]- 0740 Feb, [facility] [place] [facility] [address] [id number] [place] [address]- 1417 Jan, [facility] [place] [facility] [address] [id number] [place] [address]- 9154 Jan, [facility] [place] [facility] [address] [id number] [place] [address]- 6799 Dec, [facility] [place] [facility] [address] [id number] [place] [address]- 5240 Dec, [facility] [place] [facility] [address] [id number] [place] [address]- 5290 Nov, [facility] [place] [facility] [address] [id number] [place] [address]- 3800 Nov, [facility] [place] [facility] [address] [id number] [place] [address] Nov, [facility] [place] [facility] [address] [id number] [place] [address] Nov, [facility] [place] [facility] [address] [id number] [place] [address] October, [facility] [place] [facility] [address] [id number] [place] [address] October, [facility] [place] [facility] [address] [id number] [place] [address] October, [facility] [place] [facility] [address] [id number] [place] [address] October, [facility] [place] [facility] [address] [id number] [place] [address] October, [facility] [place] [facility] [address] [id number] [place] [address] October, [facility] [place] [facility] [address] [id number] [place] [address] October, [facility] [place] [facility] [address] [id number] [place] [address] October, [facility] [place] [facility] [address] [id number] [place] [address] Aug, [facility] [place] [facility] [address] [id number] [place] [address] Aug, [facility] [place] [facility] [address] [id number] [place] [address] Jul, [facility] [place] [facility] [address] [id number] [place] [address] Jul, [facility] [place] [facility] [address] [id number] [place] [address] Jul, [facility] [place] [facility] [address] [id number] [place] [address] Jul, [facility] [place] [facility] [address] [id number] [place] [address] Jul, [facility] [place] [facility] [address] [id number] [place] [address] Jun, [facility] [place] [facility] [address] [id number] [place] [address] Jun, [facility] [place] [facility] [address] [id number] [place] [address] May, [facility] [place] [facility] [address] [facility] [id number] [address] May, [facility] [place] [facility] [address] [facility] [id number], [place] [address] Apr, [facility] [place] [facility] [address] [id number], [place] [address] Apr, [facility] [place] [facility] [address] [id number] [place] [address] Mar, [facility] [place] [facility] [address] [id number] [place] [address] Mar, [facility] [place] [facility] [address] [facility] [id number][place] [address] Mar, [facility] [place] [facility] [address] [id number][place] [address] 20 Feb, 2013 [facility] [address] [id number] [place] [address] 20 Feb, 2013 [facility] [address] [id number] [place] [address] 17 Feb, 2013 [facility] [address] [id number] [place] [address] 04 Feb, 2013 [facility] [address] [id number] [place] [address] 04 Feb, 2013 [facility] [address] [id number] [place] [address] Jan, [facility] [address] [id number] [place] [address] Dec, [facility] [address] [id number] [place] [address] Nov, [facility] [address] [id number] [place] [address] October, [facility] [address] [id number] [place] [address] Sep, [facility] [address] [id number] [place] [address] Aug, [facility] [address] [id number] [place] [address] Aug, [facility] [address] [id number] [place] [address] Aug, [facility] [address] [id number] [place] [address] May, [facility] [address] [id number] [place] [address] 7776 May, [facility] [address] [facility] [id number] [place] [address] May, [facility] [place] [facility] [address] [id number] [place] [address] 4[address] 11 May, 2012 [facility] [place] [facility] [address] [id number] [place] [address] 11 May, 2012 [facility] [place] [facility] [address] [id number] [place] [address]136 16 Apr, 2012 [facility] [place] [facility] [address] [id number] [place] [address] 4226 16 Apr, 2012 [facility] [place] [facility] [address] [id number] [place] [address]75 14 Apr, 2012 [facility] [place] [facility] [address] [id number] [place] [address]598 14 Apr, 2012 [facility] [place] [facility] [address] [id number] [place] [address] Apr, [facility] [place] [facility] [address] [id number] [place] [address] Apr, [facility] [place] [facility] [address] [id number] [place] [address] 3686 Apr, [facility] [place] [facility] [address] [id number] [place] [address] 49[address] Apr, [facility] [place] [facility] [address] [id number] [place] [address] 4213 Mar, [facility] [place] [facility] [address] [id number] [place] [address] 49[address] Mar, [facility] [place] [facility] [address] [id number] [place] [address] 7471 Mar, [facility] [place] [facility] [address] [id number] [place] [address] Mar, [facility] [place] [facility] [address] [id number] [place] [address] 5151 Mar, [facility] [place] [facility] [address] [id number] [place] [address] 8721 Mar, [facility] [place] [facility] [address] [id number] [place] [address] 8968 Mar, [facility] [place] [facility] [address] [id number] [place] [address] 0188 Feb, [facility] [place] [facility] [address] [id number] [place] [address] 7316 Feb, [facility] [place] [facility] [address] [id number] [place] [address] 9286 Feb, [facility] [place] [facility] [address] [id number] [place] [address] 6284 Feb, [facility] [place] [facility] [address] [id number] [place] [address] 8729 Jan, [facility] [place] [facility] [address] [id number] [place] [address] 1218 Jan, [facility] [place] [facility] [address] [id number] [place] [address] 1462 Jan, [facility] [place] [facility] [address] [id number] [place] [address] 5595 Jan, [facility] [place] [facility] [address] [id number] [place] [address] 9475 Jan, [facility] [place] [facility] [address] [id number] [place] [address] 0176 Jan, [facility] [place] [facility] [address] [id number] [address] Dec, [facility] [place] [facility] [address] [id number] [place] [address] 5725 Dec, [facility] [place] [facility] [address] [id number] [place] [address]174 Dec, [facility] [place] [facility] [address] [id number] [place] [address] 9900 Dec, [facility] [place] [facility] [address] [id number] [place] [address] 9247 19 Dec, 2011 [facility] [place] [facility] [address] [id number] [place] [address] 6436 18 Dec, 2011 [facility] [place] [facility] [address] [id number] [place] [address] 8926 17 Dec, 2011 [facility] [place] [facility] [address] [id number] [place] [address] 3676 Dec, [facility] [place] [facility] [address] [id number] [place] [address] 9006 Nov, [facility] [place] [facility] [address] [id number] [place] [address] 5053 Nov, [facility] [place] [facility] [address] [id number] [place] [address] 1695 Nov, [facility] [place] [facility] [address] [id number] [place] [address] 7103 07 Nov, 2011 [facility] [place] [facility] [address] [id number] [place] [address] 1065 October, [facility] [place] [facility] [address] [id number] [place] [address] 9702 October, [facility] [place] [facility] [address] [id number] [place] [address] 7158 30 Sep, 2011 [facility] [place] [facility] [address] [id number] [place] [address]- 5936 03 Sep, 2011 [facility] [place] [facility] [address] [id number] [place] [address]- 4525 27 Aug, 2011 [facility] [place] [facility] [address] [id number] [place] [address] 0871 16 Aug, 2011 [facility] [place] [facility] [address] [id number] [place] [address]- 2926 07 Aug, 2011 [facility] [place] [facility] [address] [id number] [place] [address]- 2140 Aug, [facility] [place] [facility] [address] [id number] [place] [address] 6592 Aug, [facility] [place] [facility] [address] [id number] [place] [address]- 8746 Jul, [facility] [place] [facility] [address] [id number] [place] [address] Jul, [facility] [place] [facility] [address] [id number] [place] [address]- 1106 Jul, [facility] [place] [facility] [address] [id number] [place] [address]- 3677 Jul, [facility] [place] [facility] [address] [id number] [place] [address]- 3649 Jun, [facility] [place] [facility] [address] [id number] [place] [address]- 6458 Jun, [facility] [place] [facility] [address] [id number] [place] [address]- 2073 Jun, [facility] [place] [facility] [address] [id number] [place] [address]- 0292 Jun, [facility] [place] [facility] [address] [id number][place] [address] 9543 Jun, [facility] [place] [facility] [address] [id number], [place] [address]- 1570 May, [facility] [place] [facility] [address] [id number], [place] [address]- 1456 May, [facility] [place] [facility] [address] [id number] [place] [address]- 6036 May, [facility] [place] [facility] [address] [id number] [place] [address]- 4533 May, [facility] [place] [facility] [address] [id number] [address] May, [facility] [place] [facility] [address] [id number][place] [address]- 8596 05 May, 2011 [facility] [address] [id number] [place] [address]- 9761 Apr, [facility] [place] [facility] [address] [facility] [id number], [place] [address]- 3416 Apr, [facility] [place] [facility] [address] [facility] [id number] [place] [address]- 0736 14 Mar, 2011 [facility] [place] [facility] [address] [id number] [place] [address]- 0196 13 Mar, 2011 [facility] [address] [facility] [id number] [place] [address], [place] [address]- 5407 October, [facility] [place] [facility] [address] [facility] [id number] [place] [address]- 0092 May, [facility] [id number] [place] [address] 8459 Apr, [facility] [place] [facility] [address] [facility] [id number] [place] [address]- 0631 Jul, [facility] [place] [facility] [id number] [address] May, [facility] [place] [facility] [address] [id number] [place] [address]- 0303 May, [facility] [place] [facility] [address] [id number] [place] [address]- [address]402 May, [facility] [place] [facility] [address] [facility] [id number], [place] [address]- 9102 Apr, [facility] [place] [facility] [address] [facility] [id number], [place] [address]- 9698 Apr, [facility] [place] [facility] [address] [facility] [id number], [place] [address]- 8122 13 Mar, 2009 [facility] [place] [facility] [address] [id number], [place] [address] 4704 14 Jan, 2009 [facility] [place] [facility] [address] [facility] [id number] [place] [address]- 6267 Nov, IMMUNIZATIONS No Known Immunizations SOCIAL HISTORY Never Assessed REASON FOR VISIT [facility] follow up [facility], Gallbladder removal @ [facility] 11/06/17, PT had a reaction to the anesthetic and has been on O2 ever since PLAN OF CARE VITAL SIGNS Height 69 in 2017-11-17 Weight 251 lbs 2017-11-17 Temperature 99.6 degrees Fahrenheit 2017-11-17 Heart Rate 88 bpm 2017-11-17 Respiratory Rate 20 2017-11-17 Oximetry w/ oxygen @ 2L:98 % 2017-11-17 BMI 37.06 kg/m2 2017-11-17 Blood pressure systolic 124 mmHg 2017-11-17 Blood pressure diastolic 80 mmHg 2017-11-17 MEDICATIONS Medication Instructions Dosage Frequency Start Date End Date Duration Status Nebulizer - Active Lasix 20 mg Orally Once a day as needed 1 tablet Aug, 30 days Active Blood Pressure Cuff Dx: Hypertension Mar, Active Pen [place] 31G X 6 MM use with victoza pens Nov, Active Amlodipine Besylate 10 mg 1 tablet 24h Active Atorvastatin Calcium 40 mg TAKE ONE TABLET BY MOUTH ONCE DAILY 24h Active Protonix 20 MG Orally Once a day 1 tablet 24h Active Losartan Potassium 50 mg 1 tablet 24h Active Zyrtec Allergy 10 1 tablet 24h Active MetFORMIN HCl ER 500 mg Orally twice a day 2 tablets 12h Active Ferrous Sulfate 325 (65 Fe) MG Orally Once a day 1 tablet 24h Sep, 90 days Active FreeStyle Lite Test - In Vitro 2 times a day test blood sugar 12h Active Flonase 50 MCG/ACT Nasally Once a day 1 spray in each nostril 24h Active Aspirin 81 TAKE ONE TABLET BY MOUTH DAILY 30 Active Baclofen 20 mg Orally 2 times a day 1 tablet with food or milk 12h Sep, Dec, 30 day(s) Active Alcohol Pads 70 % USE DIRECTED WITH TEST STRIPS 30 Active C-PAP Machine Active Ipratropium-Albuterol 0.5-2.5 (3) MG/3ML Inhalation every 6 hrs 3 ml 6h Active Vitamin D 1000 UNIT Orally Once a day 1 tablet 24h Active Victoza 18 MG/3ML INJECT 1.2 MG SUBCUTANEOUSLY ONCE DAILY 45 Active Tensed 7.5-325 MG Orally 3 times a day 1 tablet as needed 8h 14 Oct, 2017 28 days Active Ferrous Sulfate 325 (65 Fe) MG Orally Once a day 1 tablet 24h Sep, 30 day(s) Active Montelukast Sodium 10 MG Orally Once a day 1 tablet in the evening 24h Active Klor-Con 10 10 MEQ Orally Once a day as needed when lasix taken 1 tablet with food 30 days Active GlipiZIDE 10 2 tablets 12h Active Colace 100 mg Orally Once a day 1 capsule as needed 24h October, Apr, 30 day(s) Active RESULTS No Results PROCEDURES Procedure Date Ordered Result Body Site URINALYSIS, AUTO, W/O SCOPE November 17, 2017 [facility] VISIT ESTABLISHED PATIENT November 17, 2017 LAB NOT [facility] November 17, 2017 INSTRUCTIONS MEDICATIONS ADMINISTERED No Known Medications [...] colonoscopy 10/2017 Surgical History Gallbladder removal 10/2017 Hospitalization History surgeries Hospitalization History pneumonia Hospitalization History chest pain
--- OUTSIDE RECORDS SUMMARY | 2018-02-19 21:22 | XMS REPORT ---
Author Author BOOGIE ARAUJO Organization [facility] Address [address] [place] [address] Care Team Providers Care Export Manager Name Role Phone BOOGIE ARAUJO Unavailable PROBLEMS Type Condition ICD9-CM Code CNY32-HA Code Onset Dates Condition Status SNOMED Code Problem History of abnormal cervical Pap smear Z87.898 Active 971467256 Problem Thoracogenic scoliosis of thoracolumbar region M41.35 Active 23452429 Problem Uncontrolled type 2 diabetes mellitus without complication, without long-term current use of insulin E11.65 Active 359645247 Problem Diabetes type 2, controlled E11.9 Active 04334136 Problem Thyroid nodule E04.1 Active 333928162 Problem History of colon polyps Z86.010 Active 789453916 Problem Other iron deficiency anemia D50.8 Active 92751038 Problem Iron deficiency anemia due to chronic blood loss D50.0 Active 295186263 Problem Screening breast examination Z12.39 Active 910148277 Problem Allergic rhinitis, unspecified allergic rhinitis trigger, unspecified rhinitis seasonality J30.9 Active 71422233 Problem Controlled type 2 diabetes mellitus without complication, without long -term current use of insulin E11.9 Active 796248343 Problem Other chronic pain G89.29 Active 46244211 ALLERGIES No Information ENCOUNTERS Encounter Location Date Diagnosis [facility] [address] [facility] [id number] [address] Jan, [facility] [id number] [address] Jan, Other chronic pain G89.29 [facility] [id number] [address] 97[address] Dec, Other chronic pain G89.29 [facility] [address] [facility] [id number] [address] Dec, Diabetes type 2, controlled E11.9 [facility] [id number] [address] 14 Nov, 2017 Other chronic pain G89.29 [facility] [address] [address] 9[address] 07 Nov, 2017 [facility] [address] [address] 0[address] Nov, [facility] [id number] [place] [address] 98926- 7384 October, Diabetes type 2, controlled E11.9 and Acute cystitis without hematuria N30.00 [facility] [id number] [place] [address] 56392- 3930 October, [facility] [id number] [place] [address] 82780- 8294 October, [facility] [id number] [place] [address] 31875- 8939 October, [facility] [id number] [place] [address] 62807- 4425 October, Other chronic pain G89.29 [facility] [address] [place] [address] 53837- 9199 Sep, Diabetes type 2, controlled E11.9 [facility] [address] [address] 4516 16 Sep, 2017 [facility] [address] [place] [address] 91463- 5108 Sep, Diabetes type 2, controlled E11.9 [facility] [address] [address] 9327 Sep, Other chronic pain G89.29 [facility] [address] [address] 8616 13 Sep, 2017 Other iron deficiency anemia D50.8 [facility] [id number] [place] [address] 64390- 6036 Sep, Other iron deficiency anemia D50.8 [facility] [id number] [place] [address] 85059- 3145 Sep, Iron deficiency anemia due to chronic blood loss D50.0 and Dysuria R30.0 [facility] [id number] [place] [address] 64679- 0468 Sep, Dysuria R30.0 [facility] [id number] [place] [address] 130875- 5780 Sep, Iron deficiency anemia due to chronic blood loss D50.0 [facility] [id number] [place] [address] 09985- 1773 Sep, [facility] [id number] [place] [address] 18998- 4794 Sep, Controlled type 2 diabetes mellitus without complication, without long-term current use of insulin E11.9 ; Leg cramps R25.2 ; Low back pain M54.5 and Other chronic pain G89.29 [facility] [id number] [place] [address] 11037- 2557 Sep, Controlled type 2 diabetes mellitus without complication, without long-term current use of insulin E11.9 ; Low back pain M54.5 ; Other chronic pain G89.29 and Leg cramps R25.2 [facility] [id number] [place] [address] 45952- 1530 Aug, Other chronic pain G89.29 [facility] [address] [place] [address] 69756- 3261 Jul, Other chronic pain G89.29 [facility] [id number] [place] [address] 01120- 3815 Jul, Pneumonia of left lower lobe due to infectious organism J18.1 [facility] [address] [place] [address] 28042 -9683 Jul, Dysuria R30.0 ; Cough in adult patient R05 and Pneumonia of left lower lobe due to infectious organism J18.1 [facility] [address] [place] [address] 83870- 0610 Jul, [facility] [id number] [place] [address] 13661- 0542 Jun, Other chronic pain G89.29 [facility] [id number] [place] [address] 38455- 4072 Jun, [facility] [id number] [place] [address] 78086- 7539 Jun, Diabetes type 2, controlled E11.9 ; Back muscle spasm M62.830 and Other chronic pain G89.29 [facility] [address] [place] [address] 84974- 2507 Jun, Screening breast examination Z12.31 [facility] [id number] [place] [address] 36734- 4426 May, Other chronic pain G89.29 [facility] [id number] [place] [address] 53950- 7373 May, [facility] [id number] [place] [address] 27013- 4418 May, UTI (urinary tract infection) N39.0 [facility] [id number] [place] [address] 67731- 4216 May, Dysuria R30.0 [facility] [address] [place] [address] 65164- 2547 May, Dysuria R30.0 [facility] [id number] [place] [address] 57615- 2541 May, Diabetes type 2, controlled E11.9 ; 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 and Other chronic pain G89.29 [facility] [id number] [place] [address] 79179- 5894 Apr, Diabetes type 2, controlled E11.9 [facility] [address] [address] Mar, Paronychia of great toe, right L03.031 and Dysuria R30.0 [facility] [address] [address]- 5284 Mar, Diabetes type 2, controlled E11.9 [facility] [id number] [place] [address] 90972- 4707 28 Feb, 2017 Diabetes type 2, controlled E11.9 [facility] [id number] [place] [address] [id number] 13 Feb, 2017 Dental examination Z01.20 [facility] [id number] [place] [address] 51123- 1962 11 Feb, 2017 Diabetes type 2, controlled E11.9 [facility] [id number] [place] [address] 44780- 3560 Feb, Diabetes type 2, controlled E11.9 [facility] [id number] [place] [address] 61625- 2491 Jan, Diabetes type 2, controlled E11.9 [facility] [id number] [place] [address] 39548- 2219 Dec, Diabetes type 2, controlled E11.9 [facility] [id number] [place] [address] 97876- 9933 Dec, Diabetes type 2, controlled E11.9 [facility] [address] [address]- 1445 Nov, Diabetes type 2, controlled E11.9 [facility] [id number] [place] [address] 81385- 7568 Nov, Diabetes type 2, controlled E11.9 [facility] [id number] [place] [address] 35006- 7521 Nov, Diabetes type 2, controlled E11.9 [facility] [address] [address]- 2635 Nov, Diabetes type 2, controlled E11.9 [facility] [address] [place] [address] 46392- 6746 Nov, Diabetes type 2, controlled E11.9 [facility] [address] [place] [address] 82177- 9751 Nov, Diabetes type 2, controlled E11.9 [facility] [address] [place] [address] 68683- 9791 October, Pain in unspecified shoulder M25.519 [facility] [id number] [place] [address] 03343- 6596 October, Diabetes type 2, controlled E11.9 and Cellulitis of right lower extremity L03.115 [facility] [id number] [place] [address] 91468- 5755 October, Pain in unspecified shoulder M25.519 [facility] [id number] [place] [address] 60998- 0341 Sep, Diabetes type 2, controlled E11.9 [facility] [id number] [place] [address] 67103- 5475 Aug, Pain in unspecified shoulder M25.519 [facility] [id number] [place] [address] 05818- 5929 Aug, Diabetes type 2, controlled E11.9 [facility] [address] [place] [address] 26221- 3050 Aug, Diabetes type 2, controlled E11.9 ; Dark urine R82.99 and Localized edema R60.0 [facility] [address] [address]- 8292 Aug, Pain in unspecified shoulder M25.519 [facility] [id number] [place] [address] 13581- 1298 07 Jul, 2016 Pain in unspecified shoulder M25.519 [facility] [id number] [place] [address] 47647- 9948 06 Jul, 2016 [facility] [address] 79248- 9247 02 Jul, 2016 Diabetes type 2, 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 E11.9 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 [facility] [address] 11148- 6749 Jun, Diabetes type 2, controlled E11.9 [facility] [id number] [place] [address] 83085- 3147 Jun, Screening breast examination Z12.39 and Allergic rhinitis, unspecified allergic rhinitis trigger, unspecified rhinitis seasonality J30.9 [facility] [address] 54546- 8793 Jun, Pain in unspecified shoulder M25.519 [facility] [id number] [place] [address] 23839- 6266 May, [facility] [address] 86926- 8661 May, Pain in unspecified shoulder M25.519 [facility] [id number] [place] [address] 46589- 8122 05 May, 2016 Thoracogenic scoliosis of thoracolumbar region M41.35 ; Low back pain M54.5 ; Other chronic pain G89.29 and Uncontrolled type 2 diabetes mellitus without complication, without long-term current use of insulin E11.65 [facility] [id number] [place] [address] 48151- 6082 Apr, [facility] [address] 43248- 4863 Apr, [facility] [id number] [place] [address] 04619- 4480 Apr, History of type 2 diabetes mellitus Z86.39 and Encounter for immunization Z23 [facility] [address] [address]- 8116 Mar, [facility] [id number] [place] [address] 71447- 4705 Mar, [facility] [address] [address]- 3333 Feb, [facility] [id number] [place] [address] 80669- 5685 Jan, [facility] [address] [place] [address] 32976- 6573 Jan, [facility] [id number] [place] [address] 00223- 8268 Dec, [facility] [id number] [place] [address] 77490 -9040 Dec, Sore throat J02.9 and Allergic rhinitis, unspecified allergic rhinitis type J30.9 [facility] [address] [place] [address] 71329- 3488 Dec, Diabetes type 2, controlled E11.9 [facility] [address] [place] [address] 70279- 3967 Nov, [facility] [address] [address]- 5336 Nov, [facility] [address] [place] [address] 37133- 1340 October, [facility] [address] [place] [address] 45975- 7455 October, [facility] [id number] [place] [address] 60598- 2664 Sep, [facility] [address] [address]- 3433 Aug, [facility] [id number] [place] [address] 03990- 3296 Aug, Diabetes type 2, controlled E11.9 ; UTI (urinary tract infection) N39.0 and Bacterial infection A49.9 [facility] [address] [place] [address] 28408- 5669 Jul, [facility] [id number] [place] [address] 42962- 3745 Jul, [facility] [id number] [place] [address] 41383- 2440 Jul, Pharyngitis J02.9 and Seborrheic keratoses L82.[address] 47551- 4297 Jun, [facility] [id number] [place] [address] 72869- 1651 May, [id number] [place] [address] 78328- 0558 May, Skin tags, multiple acquired L91.8 ; Seborrheic keratoses L82.1 and Diabetes type 2, controlled E11.[address] [place] [address] 13578- 4490 May, Well woman exam Z01.419 ; Papanicolaou [...] Other fatigue R53.83 and Other hemorrhoids K64.[address] [place] [address] 89804- 3551 May, [id number] [place] [address] 51101- 0652 May, [facility] [id number] [place] [address] 25276- 1370 Apr, Seborrheic keratosis L82.1 and Diabetes type 2, controlled E11.9 [facility] [id number] [place] [address] 63081- 3741 Apr, Seborrheic keratosis L82.1 and Diabetes type 2, controlled E11.9 [facility] [id number] [place] [address] 83433- 4147 Mar, [facility] [id number] [place] [address] 50890- 2023 Mar, [facility] [id number] [place] [address] 12954- 5759 Mar, Nevoid hyperpigmentation L81.9 ; Encounter for immunization Z23 ; Skin tags, multiple acquired L91.8 and Seborrheic keratoses L82.1 [facility] [id number] [place] [address] 90573- 4499 Feb, [facility] [id number] [place] [address] 47741- 1079 Feb, [facility] [id number] [place] [address] 27976- 6805 Feb, [facility] [id number] [place] [address] 12674- 7817 Feb, Diabetes 250.00 ; Tinea corporis 110.5 and Shoulder pain, left 719.41 [facility] [id number] [place] [address] 32034- 3573 Jan, [facility] [id number] [place] [address] 71009- 2380 Dec, [facility] [id number] [place] [address] 42578- 7201 Dec, [facility] [id number] [place] [address] 43789- 7314 Dec, Seborrheic keratoses 702.19 ; Diabetes 250.00 and Hypoglycemia 251.2 [facility] [address] [address]- 3618 Nov, [facility] [address] [address]- 6709 Nov, Abnormal mammogram 793.80 [facility] [address] [address]- 7548 October, Diabetes 250.00 and Colon polyp 211.3 [facility] [address] [place] [address] 02328- 8866 Sep, [facility] [address] [address]- 8132 Sep, [facility] [address] [place] [address] 44444- 6133 Sep, [facility] [address] [address]- 8411 Aug, [facility] [address] [address]- 1645 Aug, [facility] [address] [address]- 8993 Jul, [facility] [address] [address]- 3800 Jul, [facility] [id number] [address]- 7609 Jun, [facility] [address] [address]- 4391 Jun, [facility] [address] 4486 Jun, [facility] [id number] [address]- 4726 Jun, [facility] [place] [facility] [address] [id number] [place] [address]- 0903 Jun, [facility] [place] [facility] [address] [id number] [place] [address]- 7867 Jun, [facility] [place] [facility] [address] [id number] [place] [address]- 8464 May, [facility] [place] [facility] [address] [id number] [place] [address]- 6931 May, [facility] [place] [facility] [address] [id number] [place] [address]- 9222 Apr, [facility] [place] [facility] [address] [id number] [place] [address]- 0026 Apr, [facility] [place] [facility] [address] [id number] [place] [address]- 8866 Apr, [facility] [place] [facility] [address] [id number] [place] [address]- 9342 Apr, [facility] [place] [facility] [address] [id number] [place] [address]- 3841 Apr, [facility] [place] [facility] [address] [id number] [place] [address]- 4565 Apr, [facility] [place] [facility] [address] [id number] [place] [address]- 3364 Apr, [facility] [place] [facility] [address] [id number] [address]- 1715 Apr, [facility] [place] [facility] [address] [id number] [place] [address]- 2242 Apr, [facility] [place] [facility] [address] [id number] [place] [address]- 5984 Apr, [facility] [place] [facility] [address] [id number] [place] [address]- 5797 Mar, [facility] [place] [facility] [address] [id number] [address]- 4688 Mar, [facility] [place] [facility] [address] [id number] [place] [address]- 2782 Mar, [facility] [place] [facility] [address] [id number] [place] [address]- 3680 Mar, [facility] [place] [facility] [address] [id number] [place] [address]- 8648 Mar, [facility] [place] [facility] [address] [id number] [place] [address]- 3185 Mar, [facility] [place] [facility] [address] [id number] [place] [address]- 9567 Mar, [facility] [place] [facility] [address] [id number] [place] [address]- 2066 Mar, [facility] [place] [facility] [address] [id number] [place] [address]- 3320 Feb, [facility] [place] [facility] [address] [id number] [place] [address]- 6532 Feb, [facility] [place] [facility] [address] [id number] [place] [address]- 9536 Feb, [facility] [place] [facility] [address] [id number] [place] [address]- 2295 Feb, [facility] [place] [facility] [address] [id number] [place] [address]- 9268 Jan, [facility] [place] [facility] [address] [id number] [place] [address]- 7194 Jan, [facility] [place] [facility] [address] [id number] [place] [address]- 2192 Dec, [facility] [place] [facility] [address] [id number] [place] [address]- 4730 Dec, [facility] [place] [facility] [address] [id number] [place] [address]- 7271 Nov, [facility] [place] [facility] [address] [id number] [place] [address]- 3734 Nov, [facility] [address] [id number] [place] [address] Nov, [facility] [place] [facility] [address] [id number] [place] [address] Nov, [facility] [address] [id number] [place] [address] October, [facility] [place] [facility] [address] [id number] [place] [address] October, [facility] [address] [id number] [place] [address] October, [facility] [place] [facility] [address] [id number] [place] [address] October, [facility] [address] [id number] [place] [address] October, [facility] [address] [id number] [place] [address] October, [facility] [place] [facility] [address] [id number] [place] [address] October, [facility] [address] [id number] [place] [address] October, [facility] [place] [facility] [address] [id number] [place] [address] Aug, [facility] [place] [facility] [address] [id number] [place] [address] Aug, [facility] [place] [facility] [address] [id number] [place] [address] Jul, [facility] [place] [facility] [address] [id number] [place] [address] Jul, [facility] [place] [facility] [address] [id number] [place] [address] Jul, [facility] [place] [facility] [address] [id number] [place] [address] Jul, [facility] [place] [facility] [address] [id number] [place] [address] Jul, [facility] [place] [facility] [address] [facility] [id number] [place] [address] Jun, [facility] [place] [facility] [address] [id number] [place] [address] Jun, [facility] [place] [facility] [address] [id number] [place] [address] [address] May, [facility] [place] [facility] [address] [id number] [place] [address] May, [facility] [place] [facility] [address] [id number] [place] [address] Apr, [facility] [place] [facility] [address] [id number] [place] [address] Apr, [facility] [place] [facility] [address] [id number] [place] [address] Mar, [facility] [place] [facility] [address] [id number] [place] [address] Mar, [facility] [place] [facility] [address] [id number] [address] Mar, [facility] [place] [facility] [address] [id number], [place] [address] Feb, [facility] [place] [facility] [address] [id number] [place] [address] Feb, [facility] [place] [facility] [address] [facility] [id number] [place] [address] 17 Feb, 2013 [facility] [place] [facility] [address] [id number] [place] [address] 04 Feb, 2013 [facility] [place] [facility] [address] [id number] [place] [address] Feb, [facility] [address] [id number] [place] [address] Jan, [facility] [address] [id number] [place] [address] Dec, [facility] [address] [id number] [place] [address] Nov, [facility] [address] [id number] [place] [address] October, [facility] [address] [id number] [place] [address] Sep, [facility] [address] [id number] [place] [address] Aug, [facility] [address] [id number] [place] [address] Aug, [facility] [address] [id number] [place] [address] Aug, [facility] [address] [id number] [place] [address] May, [facility] [address] [id number] [place] [address]294 May, [facility] [address] [id number] [place] [address] May, [facility] [address] [id number] [place] [address] 4[address] May, [facility] [address] [id number] [place] [address] 2680 May, [facility] [address] [id number] [place] [address] 2546 Apr, [facility] [address] [id number] [place] [address]208 Apr, [facility] [place] [facility] [address] [id number] [place] [address] 14 Apr, 2012 [facility] [place] [facility] [address] [id number] [place] [address] 14 Apr, 2012 [facility] [place] [facility] [address] [id number] [place] [address] 2449 07 Apr, 2012 [facility] [place] [facility] [address] [id number] [place] [address]- [address]644 Apr, [facility] [place] [facility] [address] [id number] [place] [address] 7812 Apr, [facility] [place] [facility] [address] [id number] [place] [address] Apr, [facility] [place] [facility] [address] [facility] [id number] [place] [address] 9266 Mar, [facility] [place] [facility] [address] [id number] [place] [address] 2405 Mar, [facility] [place] [facility] [address] [id number] [place] [address]- 4007 Mar, [facility] [place] [facility] [address] [id number] [place] [address] 4110 Mar, [facility] [place] [facility] [address] [facility] [id number] [place] [address] 6757 Mar, [facility] [place] [facility] [address] [id number] [address] Mar, [facility] [place] [facility] [address] [id number] [place] [address] 5[address] Mar, [facility] [place] [facility] [address] [id number] [place] [address]370 Feb, [facility] [place] [facility] [address] [id number] [address] 24 Feb, 2012 [facility] [place] [facility] [address] [id number] [address] Feb, [facility] [place] [facility] [address] [id number] [place] [address] 9656 Feb, [facility] [place] [facility] [address] [id number] [place] [address]326 Jan, [facility] [place] [facility] [address] [id number] [place] [address] 2616 Jan, [facility] [place] [facility] [address] [id number] [place] [address] 4818 Jan, [facility] [place] [facility] [address] [id number] [place] [address] 2640 15 Jan, 2012 [facility] [place] [facility] [address] [id number] [place] [address] 2082 Jan, [facility] [place] [facility] [address] [id number] [place] [address]- 0990 Jan, [facility] [place] [facility] [address] [id number] [place] [address] 3562 Dec, [facility] [place] [facility] [address] [id number] [place] [address]240 Dec, [facility] [place] [facility] [address] [id number] [place] [address] 7708 Dec, [facility] [place] [facility] [address] [id number] [place] [address]- 1142 Dec, [facility] [place] [facility] [address] [id number] [place] [address]- 8084 Dec, [facility] [place] [facility] [address] [id number] [place] [address]- 4293 18 Dec, 2011 [facility] [place] [facility] [address] [id number] [place] [address]- 1582 17 Dec, 2011 [facility] [place] [facility] [address] [id number] [place] [address]- 0900 Dec, [facility] [place] [facility] [address] [id number] [place] [address]- 3006 20 Nov, 2011 [facility] [place] [facility] [address] [id number] [place] [address]- 8536 11 Nov, 2011 [facility] [place] [facility] [address] [id number] [place] [address]- 2546 08 Nov, 2011 [facility] [place] [facility] [address] [id number] [place] [address] 6034 07 Nov, 2011 [facility] [place] [facility] [address] [id number] [place] [address] 7796 October, [facility] [place] [facility] [address] [id number] [place] [address]- 6276 October, [facility] [place] [facility] [address] [id number] [place] [address] 30 Sep, 2011 [facility] [place] [facility] [address] [id number] [place] [address]- 1050 Sep, [facility] [place] [facility] [address] [id number] [place] [address]- 2070 27 Aug, 2011 [facility] [place] [facility] [address] [id number] [place] [address]- 3626 16 Aug, 2011 [facility] [place] [facility] [address] [id number] [place] [address]- 8801 Aug, [facility] [place] [facility] [address] [id number] [place] [address]- 2546 Aug, [facility] [place] [facility] [address] [id number] [place] [address]- 2546 05 Aug, 2011 [facility] [place] [facility] [address] [id number] [place] [address]- 0106 08 Jul, 2011 [facility] [place] [facility] [address] [id number] [place] [address]- 2546 06 Jul, 2011 [facility] [place] [facility] [address] [id number] [place] [address] Jul, [facility] [place] [facility] [address] [id number] [place] [address] 1319 Jul, [facility] [place] [facility] [address] [id number] [place] [address]- 7616 Jun, [facility] [place] [facility] [address] [facility] [id number] [place] [address]- 5636 Jun, [facility] [place] [facility] [address] [id number] [place] [address]- 8761 Jun, [facility] [place] [facility] [address] [id number] [place] [address]- 4681 Jun, [facility] [place] [facility] [address] [facility] [id number] [place] [address]- 2611 Jun, [facility] [place] [facility] [address] [facility] [id number] [place] [address]- 6515 May, [facility] [place] [facility] [address] [id number] [address] 7475 May, [facility] [place] [facility] [address] [facility] [id number], [place] [address]- 1590 May, [facility] [place] [facility] [address] [facility] [id number] [place] [address]- 0325 May, [facility] [place] [facility] [address] [facility] [id number] [address]- 4924 May, [facility] [place] [facility] [address] [id number][place] [address]- 0259 May, [facility] [place] [facility] [address] [id number], [place] [address]- 2347 Apr, [facility] [place] [facility] [address] [facility] [id number][place] [address]- 6099 Apr, [facility] [place] [facility] [address] [facility] [id number][place] [address]- 1378 Mar, [facility] [place] [facility] [id number] [address] 15[address] 13 Mar, 2011 [facility] [id number] [address] 39[address] October, [facility] [id number] [address]- 2546 May, [facility] [id number] [place] [address]- 3436 Apr, [facility] [id number] [place] [address]- 2546 Jul, [facility] [id number] [place] [address] 36[address]- 8506 May, [facility] [id number] [place] [address]80[address]- 5776 May, [facility] [id number] [place] [address]- 9976 May, [facility] [id number] [address]- 0186 Apr, [facility] [id number] [place] [address]- 7486 Apr, [facility] [id number] [address]- 1563 Mar, [facility] [id number], [place] [address]- [address] Jan, [facility] [address] [id number] [address] 4106 Nov, IMMUNIZATIONS No Known Immunizations SOCIAL HISTORY Never Assessed REASON FOR VISIT Medication question PLAN OF CARE VITAL SIGNS MEDICATIONS Medication Instructions Dosage Frequency Start Date End Date Duration Status Colace 100 mg Orally Once a day [...]
--- OUTSIDE RECORDS SUMMARY | 2018-02-19 21:22 | XMS REPORT ---
Author Author BOOGIE ARAUJO Organization [facility] Address [address] [place] [address] Care Team Providers Care Piece Goods Packer Name Role Phone BOOGIE ARAUJO Unavailable PROBLEMS Type Condition ICD9-CM Code TCX47-[place] Code Onset Dates Condition Status SNOMED Code Problem History of abnormal cervical Pap smear Z87.898 Active 194764389 Problem Thoracogenic scoliosis of thoracolumbar region M41.35 Active 73165320 Problem Uncontrolled type 2 diabetes mellitus without complication, without long-term current use of insulin E11.65 Active 624435767 Problem Diabetes type 2, controlled E11.9 Active 16833439 Problem Thyroid nodule E04.1 Active 237907237 Problem History of colon polyps Z86.010 Active 143553243 Problem Other iron deficiency anemia D50.8 Active 04198272 Problem Iron deficiency anemia due to chronic blood loss D50.0 Active 821688698 Problem Screening breast examination Z12.39 Active 157020459 Problem Allergic rhinitis, unspecified allergic rhinitis trigger, unspecified rhinitis seasonality J30.9 Active 82894208 Problem Controlled type 2 diabetes mellitus without complication, without long -term current use of insulin E11.9 Active 532272692 Problem Other chronic pain G89.29 Active 43679196 ALLERGIES No Information ENCOUNTERS Encounter Location Date Diagnosis [facility] [address] [facility] [id number] [address] Jan, [facility] [address] [id number] [address] 4616 Jan, Other chronic pain G89.29 [facility] [address] [id number] [address] 8871 Dec, Other chronic pain G89.29 [facility] [address] [facility] [id number] [place] [address] 0422 Dec, Diabetes type 2, controlled E11.9 [facility] [address] [id number] [address] 9145 14 Nov, 2017 Other chronic pain G89.29 [facility] [address] [address] 0574 07 Nov, 2017 [facility] [address] [address]- 8853 Nov, [facility] [id number] [place] [address] 29309- 7447 October, Diabetes type 2, controlled E11.9 and Acute cystitis without hematuria N30.00 [facility] [address] [place] [address] 00601- 9708 October, [facility] [id number] [place] [address] 79410- 8419 October, [facility] [id number] [place] [address] 92959- 8095 October, [facility] [address] [place] [address] 24953- 7892 October, Other chronic pain G89.29 [facility] [address] [place] [address] 54021- 4366 Sep, Diabetes type 2, controlled E11.9 [facility] [address] [address]- 0843 16 Sep, 2017 [facility] [id number] [place] [address] 48362- 9626 Sep, Diabetes type 2, controlled E11.9 [facility] [address] [address]- 8943 Sep, Other chronic pain G89.29 [facility] [address] [address]- 8671 13 Sep, 2017 Other iron deficiency anemia D50.8 [facility] [id number] [place] [address] 36173- 4110 Sep, Other iron deficiency anemia D50.8 [place] [id number] [place] [address] 99371- 4028 Sep, Iron deficiency anemia due to chronic blood loss D50.0 and Dysuria R30.0 [place] [id number] [place] [address] 41029- 7138 Sep, Dysuria R30.0 [place] [id number] [place] [address] 019541- 5268 Sep, Iron deficiency anemia due to chronic blood loss D50.0 [place] [id number] [place] [address] 57599- 2735 Sep, [place] [id number] [place] [address] 29792- 8881 Sep, Controlled type 2 diabetes mellitus without complication, without long-term current use of insulin E11.9 ; Leg cramps R25.2 ; Low back pain M54.5 and Other chronic pain G89.29 [place] [id number] [place] [address] 43414- 0660 Sep, Controlled type 2 diabetes mellitus without complication, without long-term current use of insulin E11.9 ; Low back pain M54.5 ; Other chronic pain G89.29 and Leg cramps R25.2 [place] [id number] [place] [address] 01990- 3847 Aug, Other chronic pain G89.29 [place] [address] [place] [address] 40134- 2000 Jul, Other chronic pain G89.29 [place] [id number] [place] [address] 69324- 2390 Jul, Pneumonia of left lower lobe due to infectious organism J18.1 [facility] [id number] [place] [address] 30131 -5291 Jul, Dysuria R30.0 ; Cough in adult patient R05 and Pneumonia of left lower lobe due to infectious organism J18.1 [facility] [address] [place] [address] 23158- 6875 Jul, [facility] [id number] [place] [address] 59889- 8715 Jun, Other chronic pain G89.29 [facility] [id number] [place] [address] 49871- 7802 Jun, [facility] [id number] [place] [address] 87575- 5616 Jun, Diabetes type 2, controlled E11.9 ; Back muscle spasm M62.830 and Other chronic pain G89.29 [facility] [address] [place] [address] 00317- 4791 Jun, Screening breast examination Z12.31 [place] [id number] [place] [address] 73671- 8753 May, Other chronic pain G89.29 [facility] [id number] [place] [address] 08214- 5365 May, [facility] [id number] [place] [address] 36809- 8952 May, UTI (urinary tract infection) N39.0 [place] [id number] [place] [address] 44786- 9099 May, Dysuria R30.0 [facility] [address] [place] [address] 58242- 2549 May, Dysuria R30.0 [place] [id number] [place] [address] 65878- 2548 May, Diabetes type 2, controlled E11.9 ; 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 and Other chronic pain G89.29 [facility] [id number] [place] [address] 04150- 9958 Apr, Diabetes type 2, controlled E11.9 [facility] [address] [address]32 Mar, Paronychia of great toe, right L03.031 and Dysuria R30.0 [facility] [address] [address]- 5542 Mar, Diabetes type 2, controlled E11.9 [facility] [id number] [place] [address] 99838- 5602 28 Feb, 2017 Diabetes type 2, controlled E11.9 [facility] [id number] [place] [address] [id number] 13 Feb, 2017 Dental examination Z01.20 [facility] [id number] [place] [address] 33088- 6858 11 Feb, 2017 Diabetes type 2, controlled E11.9 [facility] [id number] [place] [address] 06747- 4884 Feb, Diabetes type 2, controlled E11.9 [facility] [id number] [place] [address] 87661- 0477 Jan, Diabetes type 2, controlled E11.9 [facility] [id number] [place] [address] 56210- 6693 Dec, Diabetes type 2, controlled E11.9 [facility] [id number] [place] [address] 53649- 0080 Dec, Diabetes type 2, controlled E11.9 [facility] [address] [address]- 8376 Nov, Diabetes type 2, controlled E11.9 [facility] [id number] [place] [address] 73078- 1234 Nov, Diabetes type 2, controlled E11.9 [facility] [id number] [place] [address] 80551- 4707 Nov, Diabetes type 2, controlled E11.9 [facility] [address] [address]- 9495 Nov, Diabetes type 2, controlled E11.9 [facility] [address] [place] [address] 19102- 5516 Nov, Diabetes type 2, controlled E11.9 [facility] [address] [place] [address] 15171- 4720 Nov, Diabetes type 2, controlled E11.9 [facility] [address] [place] [address] 12685- 2093 October, Pain in unspecified shoulder M25.519 [place] [id number] [place] [address] 90769- 3296 October, Diabetes type 2, controlled E11.9 and Cellulitis of right lower extremity L03.115 [place] [id number] [place] [address] 25757- 8057 October, Pain in unspecified shoulder M25.519 [place] [id number] [place] [address] 32172- 2373 Sep, Diabetes type 2, controlled E11.9 [facility] [id number] [place] [address] 12595- 2541 Aug, Pain in unspecified shoulder M25.519 [facility] [id number] [place] [address] 37117- 9308 Aug, Diabetes type 2, controlled E11.9 [facility] [address] [place] [address] 85479- 0615 Aug, Diabetes type 2, controlled E11.9 ; Dark urine R82.99 and Localized edema R60.0 [facility] [address] [address]- 7231 Aug, Pain in unspecified shoulder M25.519 [facility] [id number] [place] [address] 02422- 8017 07 Jul, 2016 Pain in unspecified shoulder M25.519 [place] [id number] [place] [address] 08199- 7646 06 Jul, 2016 [place] [address] 19414- 3808 02 Jul, 2016 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, 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.9 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 [place] [address] 82563- 2279 Jun, Diabetes type 2, controlled E11.9 [place] [id number] [place] [address] 80229- 4403 Jun, Screening breast examination Z12.39 and Allergic rhinitis, unspecified allergic rhinitis trigger, unspecified rhinitis seasonality J30.9 [place] [address] 85489- 3323 Jun, Pain in unspecified shoulder M25.519 [place] [id number] [place] [address] 96372- 1566 May, [place] [address] 95074- 1762 May, Pain in unspecified shoulder M25.519 [place] [id number] [place] [address] 26385- 1339 05 May, 2016 Thoracogenic scoliosis of thoracolumbar region M41.35 ; Low back pain M54.5 ; Other chronic pain G89.29 and Uncontrolled type 2 diabetes mellitus without complication, without long-term current use of insulin E11.65 [place] [id number] [place] [address] 94315- 9440 Apr, [place] [address] 02839- 6575 Apr, [place] [id number] [place] [address] 84813- 2913 Apr, History of type 2 diabetes mellitus Z86.39 and Encounter for immunization Z23 [facility] [address] [address]- 2009 Mar, [facility] [id number] [place] [address] 55798- 2642 Mar, [facility] [address] [address]- 2491 Feb, [facility] [id number] [place] [address] 28150- 8127 Jan, [facility] [address] [place] [address] 76003- 9882 Jan, [facility] [id number] [place] [address] 20215- 7326 Dec, [facility] [id number] [place] [address] 95220 -8420 Dec, Sore throat J02.9 and Allergic rhinitis, unspecified allergic rhinitis type J30.9 [facility] [address] [place] [address] 05989- 9987 Dec, Diabetes type 2, controlled E11.9 [facility] [address] [place] [address] 18104- 7686 Nov, [facility] [address] [address]- 7344 Nov, [facility] [address] [place] [address] 84784- 9836 October, [facility] [address] [place] [address] 28578- 4998 October, [facility] [id number] [place] [address] 64586- 5522 Sep, [facility] [address] [address]- 0720 Aug, [facility] [id number] [place] [address] 39827- 1125 Aug, Diabetes type 2, controlled E11.9 ; UTI (urinary tract infection) N39.0 and Bacterial infection A49.9 [place] [address] [place] [address] 72738- 3237 Jul, [place] [id number] [place] [address] 23144- 1842 Jul, [place] [id number] [place] [address] 70387- 1013 Jul, Pharyngitis J02.9 and Seborrheic keratoses L82.[address] 24749- 6120 Jun, [place] [id number] [place] [address] 99325- 7737 May, [id number] [place] [address] 77424- 5360 May, Skin tags, multiple acquired L91.8 ; Seborrheic keratoses L82.1 and Diabetes type 2, controlled E11.9 [address] [place] [address] 58963- 5157 May, Well woman exam Z01.419 ; Papanicolaou [...] Other hemorrhoids K64.8 and Other fatigue R53.83 [address] [place] [address] 47038- 5438 May, [place] [id number] [place] [address] 45613- 9063 May, [facility] [id number] [place] [address] 66501- 7045 Apr, Seborrheic keratosis L82.1 and Diabetes type 2, controlled E11.9 [facility] [id number] [place] [address] 77329- 3322 Apr, Seborrheic keratosis L82.1 and Diabetes type 2, controlled E11.9 [facility] [id number] [place] [address] 42103- 4356 Mar, [facility] [id number] [place] [address] 87358- 5021 Mar, [facility] [id number] [place] [address] 05469- 1393 Mar, Encounter for immunization Z23 ; Nevoid hyperpigmentation L81.9 ; Skin tags, multiple acquired L91.8 and Seborrheic keratoses L82.1 [facility] [id number] [place] [address] 07725- 7579 Feb, [facility] [id number] [place] [address] 45990- 5485 Feb, [facility] [id number] [place] [address] 60395- 3351 Feb, [facility] [id number] [place] [address] 27674- 4831 Feb, Diabetes 250.00 ; Tinea corporis 110.5 and Shoulder pain, left 719.41 [facility] [id number] [place] [address] 32652- 7154 Jan, [facility] [id number] [place] [address] 44089- 0603 Dec, [facility] [id number] [place] [address] 59473- 0308 Dec, [facility] [id number] [place] [address] 37701- 7458 Dec, Seborrheic keratoses 702.19 ; Diabetes 250.00 and Hypoglycemia 251.2 [facility] [address] [address]- 0885 Nov, [facility] [address] [address]- 1703 Nov, Abnormal mammogram 793.80 [facility] [address] [address]- 1111 October, Diabetes 250.00 and Colon polyp 211.3 [facility] [address] [place] [address] 62550- 1744 Sep, [facility] [address] [address]- 2317 Sep, [facility] [address] [place] [address] 38322- 1130 Sep, [facility] [address] [address]- 6828 Aug, [facility] [address] [address]- 7843 Aug, [facility] [address] [address]- 8440 Jul, [facility] [address] [address]- 9820 Jul, [facility] [id number] [address]- 0736 Jun, [facility] [address] [address]- 7249 Jun, [facility] [address]- 6321 Jun, [facility] [id number] [address]- 6719 Jun, [facility] [place] [facility] [address] [id number] [place] [address]- 6648 Jun, [facility] [place] [facility] [address] [id number] [place] [address]- 0500 Jun, [facility] [place] [facility] [address] [id number] [place] [address]- 5656 May, [facility] [place] [facility] [address] [id number] [place] [address]- 2950 May, [facility] [place] [facility] [address] [id number] [place] [address]- 4511 Apr, [facility] [place] [facility] [address] [id number] [place] [address]- 0996 Apr, [facility] [place] [facility] [address] [id number] [place] [address]- 8892 Apr, [facility] [place] [facility] [address] [id number] [place] [address]- 1341 Apr, [facility] [place] [facility] [address] [id number] [place] [address]- 7255 Apr, [facility] [place] [facility] [address] [id number] [place] [address]- 6979 Apr, [facility] [place] [facility] [address] [id number] [place] [address]- 2449 Apr, [facility] [place] [facility] [address] [id number] [place] [address]- 2388 Apr, [facility] [place] [facility] [address] [id number] [place] [address]- 8156 Apr, [facility] [place] [facility] [address] [id number] [place] [address]- 2557 Apr, [facility] [place] [facility] [address] [id number] [place] [address]- 4604 Mar, [facility] [place] [facility] [address] [id number] [place] [address]- 9922 Mar, [facility] [place] [facility] [address] [id number] [place] [address]- 9826 Mar, [facility] [place] [facility] [address] [id number] [place] [address]- 3517 Mar, [facility] [place] [facility] [address] [id number] [place] [address] Mar, [facility] [place] [facility] [address] [id number] [place] [address] Mar, [facility] [place] [facility] [address] [id number] [place] [address] Mar, [facility] [place] [facility] [address] [id number] [place] [address] Mar, [facility] [place] [facility] [address] [id number] [place] [address] Feb, [facility] [place] [facility] [address] [id number] [place] [address] Feb, [facility] [place] [facility] [address] [id number] [place] [address] 2010 Feb, [facility] [place] [facility] [address] [id number] [place] [address] Feb, [facility] [place] [facility] [address] [id number] [place] [address] Jan, [facility] [place] [facility] [address] [id number] [place] [address] Jan, [facility] [place] [facility] [address] [id number] [place] [address] Dec, [facility] [place] [facility] [address] [id number] [place] [address] Dec, [facility] [place] [facility] [address] [id number] [place] [address] Nov, [facility] [place] [facility] [address] [id number] [place] [address] Nov, [facility] [address] [id number] [place] [address] Nov, [facility] [place] [facility] [address] [id number] [place] [address] Nov, [facility] [address] [id number] [place] [address] October, [facility] [place] [facility] [address] [id number] [place] [address] October, [facility] [address] [id number] [place] [address] October, [facility] [place] [facility] [address] [id number] [place] [address] October, [facility] [address] [id number] [place] [address] October, [facility] [address] [id number] [place] [address] October, [facility] [place] [facility] [address] [id number] [place] [address] October, [facility] [address] [id number] [place] [address] October, [facility] [place] [facility] [address] [id number] [place] [address] Aug, [facility] [place] [facility] [address] [id number] [place] [address] Aug, [facility] [place] [facility] [address] [id number] [place] [address] Jul, [facility] [place] [facility] [address] [id number] [place] [address] Jul, [facility] [place] [facility] [address] [id number] [place] [address] Jul, [facility] [place] [facility] [address] [id number] [place] [address] Jul, [facility] [place] [facility] [address] [id number] [place] [address] Jul, [facility] [place] [facility] [address] [facility] [id number] [place] [address] Jun, [facility] [place] [facility] [address] [id number] [place] [address] Jun, [facility] [place] [facility] [address] [id number] [place] [address] May, [facility] [place] [facility] [address] [id number] [place] [address] May, [facility] [place] [facility] [address] [id number] [place] [address] Apr, [facility] [place] [facility] [address] [id number] [place] [address] Apr, [facility] [place] [facility] [address] [id number] [place] [address] Mar, [facility] [place] [facility] [address] [id number] [place] [address] Mar, [facility] [place] [facility] [address] [id number] [place] [address] Mar, [facility] [place] [facility] [address] [id number] [place] [address] Feb, [facility] [place] [facility] [address] [id number] [place] [address] Feb, [facility] [place] [facility] [address] [facility] [id number] [place] [address] 17 Feb, 2013 [facility] [place] [facility] [address] [id number] [place] [address] 04 Feb, 2013 [facility] [place] [facility] [address] [id number] [place] [address] Feb, [facility] [address] [id number] [place] [address] Jan, [facility] [address] [id number] [place] [address] Dec, [facility] [address] [id number] [place] [address] 1458 Nov, [facility] [address] [id number] [place] [address] October, [facility] [address] [id number] [place] [address] 1756 Sep, [facility] [address] [id number] [place] [address] Aug, [facility] [address] [id number] [place] [address] 27[address] Aug, [facility] [address] [id number] [place] [address] Aug, [facility] [address] [id number] [place] [address] 95[address] May, [facility] [address] [id number] [place] [address] May, [facility] [address] [id number] [place] [address]407 May, [facility] [address] [id number] [place] [address]290 May, [facility] [address] [id number] [place] [address]77 May, [facility] [address] [id number] [place] [address] 2546 Apr, [facility] [address] [id number] [place] [address] 4265 Apr, [facility] [place] [facility] [address] [id number] [place] [address] 9189 14 Apr, 2012 [facility] [place] [facility] [address] [id number] [place] [address] 14 Apr, 2012 [facility] [place] [facility] [address] [id number] [place] [address]- [address]645 07 Apr, 2012 [facility] [place] [facility] [address] [id number] [place] [address] 8110 Apr, [facility] [place] [facility] [address] [id number] [place] [address] 4486 Apr, [facility] [place] [facility] [address] [id number] [place] [address] 9862 Apr, [facility] [place] [facility] [address] [facility] [id number] [place] [address] 9764 Mar, [facility] [place] [facility] [address] [id number] [place] [address] 6[address] Mar, [facility] [place] [facility] [address] [id number] [place] [address] 3470 Mar, [facility] [place] [facility] [address] [id number] [place] [address]607 Mar, [facility] [place] [facility] [address] [facility] [id number] [place] [address] 2507 Mar, [facility] [place] [facility] [address] [id number] [place] [address] 35[address] Mar, [facility] [place] [facility] [address] [id number] [place] [address]50 Mar, [facility] [place] [facility] [address] [id number] [place] [address] 1589 Feb, [facility] [place] [facility] [address] [id number] [place] [address]- 2097 24 Feb, 2012 [facility] [place] [facility] [address] [id number] [place] [address] 3510 Feb, [facility] [place] [facility] [address] [id number] [place] [address]156 Feb, [facility] [place] [facility] [address] [id number] [place] [address] 0686 Jan, [facility] [place] [facility] [address] [id number] [place] [address]- 4466 Jan, [facility] [place] [facility] [address] [id number] [place] [address] 1191 Jan, [facility] [place] [facility] [address] [id number] [place] [address]- 2624 15 Jan, 2012 [facility] [place] [facility] [address] [id number] [place] [address]- 0460 Jan, [facility] [place] [facility] [address] [id number] [place] [address] 8052 Jan, [facility] [place] [facility] [address] [id number] [place] [address]- 5882 Dec, [facility] [place] [facility] [address] [id number] [place] [address]- 1225 Dec, [facility] [place] [facility] [address] [id number] [place] [address]- 3444 Dec, [facility] [place] [facility] [address] [id number] [place] [address]- 5867 Dec, [facility] [place] [facility] [address] [id number] [place] [address]- 8783 Dec, [facility] [place] [facility] [address] [id number] [place] [address]- 3583 18 Dec, 2011 [facility] [place] [facility] [address] [id number] [place] [address]- 6895 17 Dec, 2011 [facility] [place] [facility] [address] [id number] [place] [address] 3263 Dec, [facility] [place] [facility] [address] [id number] [place] [address] 8856 20 Nov, 2011 [facility] [place] [facility] [address] [id number] [place] [address] 1956 11 Nov, 2011 [facility] [place] [facility] [address] [id number] [place] [address]- 2546 08 Nov, 2011 [facility] [place] [facility] [address] [id number] [place] [address]- 8929 07 Nov, 2011 [facility] [place] [facility] [address] [id number] [place] [address]- 9566 October, [facility] [place] [facility] [address] [id number] [place] [address] 3816 October, [facility] [place] [facility] [address] [id number] [place] [address] 9306 30 Sep, 2011 [facility] [place] [facility] [address] [id number] [place] [address]- 1309 Sep, [facility] [place] [facility] [address] [id number] [place] [address] 1988 27 Aug, 2011 [facility] [place] [facility] [address] [id number] [place] [address]- 3086 16 Aug, 2011 [facility] [place] [facility] [address] [id number] [place] [address]- 5584 Aug, [facility] [place] [facility] [address] [id number] [place] [address]- 2546 Aug, [facility] [place] [facility] [address] [id number] [place] [address]- 2546 05 Aug, 2011 [facility] [place] [facility] [address] [id number] [place] [address]- 8556 08 Jul, 2011 [facility] [place] [facility] [address] [id number] [place] [address]- 2546 06 Jul, 2011 [facility] [place] [facility] [address] [id number] [place] [address] 73[address] Jul, [facility] [place] [facility] [address] [id number] [place] [address]- 2645 Jul, [facility] [place] [facility] [address] [id number] [place] [address]- 5936 Jun, [facility] [place] [facility] [address] [facility] [id number] [place] [address]- 6922 Jun, [facility] [place] [facility] [address] [id number] [place] [address]- 3688 Jun, [facility] [place] [facility] [address] [id number] [place] [address]- 7978 Jun, [facility] [place] [facility] [address] [facility] [id number] [place] [address]- 0591 Jun, [facility] [place] [facility] [address] [facility] [id number] [place] [address]- 2350 May, [facility] [place] [facility] [address] [id number] [place] [address]- 1299 May, [facility] [place] [facility] [address] [facility] [id number] [place] [address]- 8826 May, [facility] [place] [facility] [address] [facility] [id number] [place] [address]- 7664 May, [facility] [place] [facility] [address] [facility] [id number] [place] [address]- 2898 May, [facility] [place] [facility] [address] [id number] [place] [address]- 1347 May, [facility] [place] [facility] [address] [id number] [place] [address]- 5891 Apr, [facility] [place] [facility] [address] [facility] [id number] [place] [address]- 6201 Apr, [facility] [place] [facility] [address] [facility] [id number] [place] [address]- 3845 Mar, [facility] [place] [facility] [id number] [place] [address]- 8436 13 Mar, 2011 [facility] [id number] [address]- 8586 October, [facility] [id number] [place] [address] 2546 May, [facility] [id number] [place] [address]- 8236 Apr, [facility] [id number] [place] [address]- 2546 Jul, [facility] [id number] [place] [address]- 8286 May, [facility] [id number] [place] [address]- 1476 May, [facility] [id number] [place] [address]- 1936 May, [facility] [id number] [place] [address]- 1037 Apr, [facility] [id number] [place] [address]- 3099 Apr, [facility] [id number] [place] [address]- 2801 Mar, [facility] [id number] [address]- 5438 Jan, [facility] [address] [id number] [address]- 6584 Nov, IMMUNIZATIONS No Known Immunizations SOCIAL HISTORY Never Assessed REASON FOR VISIT [place] Increase PLAN OF CARE VITAL SIGNS MEDICATIONS Medication Instructions Dosage Frequency Start Date End Date Duration Status Hydrocodone-Acetaminophen 5-325 MG Orally every 4 hrs 1 tablet as needed October, October, 05 days Active RESULTS No Results PROCEDURES No [...]
--- OUTSIDE RECORDS SUMMARY | 2018-02-19 21:23 | XMS REPORT ---
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 Name Role Phone BOOGIE ARAUJO Unavailable PROBLEMS Type Condition ICD9-CM Code MOX03-YE Code Onset Dates Condition Status SNOMED Code Problem History of abnormal cervical Pap smear Z87.898 Active 268151499 Problem Thoracogenic scoliosis of thoracolumbar region M41.35 Active 86530692 Problem Uncontrolled type 2 diabetes mellitus without complication, without long-term current use of insulin E11.65 Active 504365695 Problem Diabetes type 2, controlled E11.9 Active 63349982 Problem Thyroid nodule E04.1 Active 486923005 Problem History of colon polyps Z86.010 Active 525478838 Problem Other iron deficiency anemia D50.8 Active 32240155 Problem Iron deficiency anemia due to chronic blood loss D50.0 Active 149431365 Problem Screening breast examination Z12.39 Active 261075087 Problem Allergic rhinitis, unspecified allergic rhinitis trigger, unspecified rhinitis seasonality J30.9 Active 60151638 Problem Controlled type 2 diabetes mellitus without complication, without long -term current use of insulin E11.9 Active 453361880 Problem Other chronic pain G89.29 Active 18280152 ALLERGIES No Information ENCOUNTERS Encounter Location Date Diagnosis [facility] [address] [facility] [id number] [address] Jan, [facility] [address] [id number] [address] Jan, Other chronic pain G89.29 [facility] [address] [id number], [place] [address] 49[address] Dec, Other chronic pain G89.29 [facility] [address] [facility] [id number] [address] Dec, Diabetes type 2, controlled E11.9 [facility] [address] [id number], [place] [address] 77[address] 14 Nov, 2017 Other chronic pain G89.29 [facility] [address], [place] [address] 07 Nov, 2017 [facility] [address], [place] [address] 9[address] Nov, [facility] [id number] [place] [address] 17006- 0919 October, Diabetes type 2, controlled E11.9 and Acute cystitis without hematuria N30.00 [facility] [id number] [place] [address] 76423- 5127 October, [facility] [id number] [place] [address] 73723- 3414 October, [facility] [id number] [place] [address] 91108- 9391 October, [facility] [id number] [place] [address] 86056- 7416 October, Other chronic pain G89.29 [facility] [id number] [place] [address] 30320- 6736 Sep, Diabetes type 2, controlled E11.9 [facility] [address], [place] [address] 1568 16 Sep, 2017 [facility] [id number] [place] [address] 13271- 1832 Sep, Diabetes type 2, controlled E11.9 [facility] [address], [place] [address] 2527 Sep, Other chronic pain G89.29 [facility] [address], [place] [address] 0959 13 Sep, 2017 Other iron deficiency anemia D50.8 [facility] [id number] [place] [address] 39730- 5655 Sep, Other iron deficiency anemia D50.8 [place] [facility] [id number] [place] [address] 12425- 3619 Sep, Iron deficiency anemia due to chronic blood loss D50.0 and Dysuria R30.0 [facility] [facility] [id number] [place] [address] 07798- 2396 Sep, Dysuria R30.0 [facility] [facility] [id number] [place] [address] 085708- 6535 Sep, Iron deficiency anemia due to chronic blood loss D50.0 [facility] [facility] [id number] [place] [address] 27450- 7856 Sep, [facility] [id number] [place] [address] 83602- 9648 Sep, Controlled type 2 diabetes mellitus without complication, without long-term current use of insulin E11.9 ; Leg cramps R25.2 ; Low back pain M54.5 and Other chronic pain G89.29 [facility] [id number] [place] [address] 71572- 7563 Sep, Controlled type 2 diabetes mellitus without complication, without long-term current use of insulin E11.9 ; Low back pain M54.5 ; Other chronic pain G89.29 and Leg cramps R25.2 [facility] [id number] [place] [address] 12233- 7676 Aug, Other chronic pain G89.29 [facility] [facility] [address] [place] [address] 04677- 4776 Jul, Other chronic pain G89.29 [facility] [facility] [id number] [place] [address] 72779- 0730 Jul, Pneumonia of left lower lobe due to infectious organism J18.1 [facility] [address] [place] [address] 35746 -8025 Jul, Dysuria R30.0 ; Cough in adult patient R05 and Pneumonia of left lower lobe due to infectious organism J18.1 [facility] [address] [place] [address] 56547- 4245 Jul, [facility] [id number] [place] [address] 95473- 2123 Jun, Other chronic pain G89.29 [facility] [id number] [place] [address] 34964- 8676 Jun, [facility] [id number] [place] [address] 75681- 6693 Jun, Diabetes type 2, controlled E11.9 ; Back muscle spasm M62.830 and Other chronic pain G89.29 [facility] [address] [place] [address] 68295- 8607 Jun, Screening breast examination Z12.31 [facility] [id number] [place] [address] 07658- 4665 May, Other chronic pain G89.29 [facility] [id number] [place] [address] 17264- 4159 May, [facility] [id number] [place] [address] 69284- 6431 May, UTI (urinary tract infection) N39.0 [facility] [id number] [place] [address] 05180- 0170 May, Dysuria R30.0 [facility] [address] [place] [address] 44680- 2549 May, Dysuria R30.0 [place] [id number] [place] [address] 00264- 254 May, Diabetes type 2, controlled E11.9 ; USP current use of 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 Z79.891 and Other chronic pain G89.29 [facility] [id number] [place] [address] 64173- 3123 Apr, Diabetes type 2, controlled E11.9 [facility] [address], [place] [address] Mar, Paronychia of great toe, right L03.031 and Dysuria R30.0 [facility] [address], [place] [address]- 8639 Mar, Diabetes type 2, controlled E11.9 [facility] [id number] [place] [address] 76580- 3207 28 Feb, 2017 Diabetes type 2, controlled E11.9 [facility] [id number] [place] [address] [id number] 13 Feb, 2017 Dental examination Z01.20 [facility] [id number] [place] [address] 91455- 4149 11 Feb, 2017 Diabetes type 2, controlled E11.9 [facility] [id number] [place] [address] 69892- 2109 Feb, Diabetes type 2, controlled E11.9 [facility] [id number] [place] [address] 20615- 1209 Jan, Diabetes type 2, controlled E11.9 [facility] [id number] [place] [address] 53431- 3880 Dec, Diabetes type 2, controlled E11.9 [facility] [id number] [place] [address] 84838- 8348 Dec, Diabetes type 2, controlled E11.9 [facility] [address], [place] [address]- 1768 Nov, Diabetes type 2, controlled E11.9 [facility] [id number] [place] [address] 61898- 6574 Nov, Diabetes type 2, controlled E11.9 [facility] [id number] [place] [address] 09384- 1128 Nov, Diabetes type 2, controlled E11.9 [facility] [address], [place] [address]- 9461 Nov, Diabetes type 2, controlled E11.9 [facility] [address] [place] [address] 54706- 8556 Nov, Diabetes type 2, controlled E11.9 [facility] [address] [place] [address] 48842- 2071 Nov, Diabetes type 2, controlled E11.9 [facility] [address] [place] [address] 35759- 6199 October, Pain in unspecified shoulder M25.519 [place] [id number] [place] [address] 79970- 4486 October, Diabetes type 2, controlled E11.9 and Cellulitis of right lower extremity L03.115 [place] [id number] [place] [address] 77521- 8381 October, Pain in unspecified shoulder M25.519 [place] [id number] [place] [address] 17173- 3877 Sep, Diabetes type 2, controlled E11.9 [facility] [id number] [place] [address] 19830- 2498 Aug, Pain in unspecified shoulder M25.519 [facility] [id number] [place] [address] 14910- 2378 Aug, Diabetes type 2, controlled E11.9 [facility] [address] [place] [address] 58310- 9247 Aug, Diabetes type 2, controlled E11.9 ; Dark urine R82.99 and Localized edema R60.0 [facility] [address], [place] [address]- 1952 Aug, Pain in unspecified shoulder M25.519 [facility] [id number] [place] [address] 00310- 8066 07 Jul, 2016 Pain in unspecified shoulder M25.519 [place] [id number] [place] [address] 80830- 2661 06 Jul, 2016 [place] [address] 31648- 7592 02 Jul, 2016 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, 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 [place] [address] 71453- 3423 Jun, Diabetes type 2, controlled E11.9 [facility] [id number] [place] [address] 79562- 0555 Jun, Screening breast examination Z12.39 and Allergic rhinitis, unspecified allergic rhinitis trigger, unspecified rhinitis seasonality J30.9 [place] [address] 67271- 2240 Jun, Pain in unspecified shoulder M25.519 [place] [id number] [place] [address] 43625- 1576 May, [place] [address] 22153- 1015 May, Pain in unspecified shoulder M25.519 [place] [id number] [place] [address] 97954- 3852 05 May, 2016 Thoracogenic scoliosis of thoracolumbar region M41.35 ; Low back pain M54.5 ; Other chronic pain G89.29 and Uncontrolled type 2 diabetes mellitus without complication, without long-term current use of insulin E11.65 [place] [id number] [place] [address] 32590- 8226 Apr, [place] [address] 70566- 2062 Apr, [place] [id number] [place] [address] 14083- 9875 Apr, History of type 2 diabetes mellitus Z86.39 and Encounter for immunization Z23 [facility] [address], [place] [address]- 3530 Mar, [facility] [id number] [place] [address] 53112- 0395 Mar, [facility] [address], [place] [address]- 6098 Feb, [facility] [id number] [place] [address] 21094- 1646 Jan, [facility] [address] [place] [address] 63166- 1347 Jan, [facility] [id number] [place] [address] 81544- 2353 Dec, [facility] [id number] [place] [address] 77285 -9954 Dec, Sore throat J02.9 and Allergic rhinitis, unspecified allergic rhinitis type J30.9 [facility] [address] [place] [address] 98145- 8325 Dec, Diabetes type 2, controlled E11.9 [facility] [address] [place] [address] 21461- 1047 Nov, [facility] [address], [place] [address]- 5493 Nov, [facility] [address] [place] [address] 50091- 0399 October, [facility] [address] [place] [address] 72000- 0019 October, [facility] [id number] [place] [address] 55628- 5425 Sep, [facility] [address], [place] [address]- 1736 Aug, [facility] [id number] [place] [address] 02904- 3251 Aug, Diabetes type 2, controlled E11.9 ; UTI (urinary tract infection) N39.0 and Bacterial infection A49.9 [place] [address] [place] [address] 85415- 3596 Jul, [place] [id number] [place] [address] 26061- 9605 Jul, [facility] [id number] [place] [address] 85850- 1870 Jul, Pharyngitis J02.9 and Seborrheic keratoses L82.[address] 20951- 6995 Jun, [place] [id number] [place] [address] 71633- 8958 May, [place] [id number] [place] [address] 19148- 2632 May, Skin tags, multiple acquired L91.8 ; Seborrheic keratoses L82.1 and Diabetes type 2, controlled E11.9 [address] [place] [address] 37517- 8648 May, Well woman exam Z01.419 ; Papanicolaou [...] Other hemorrhoids K64.8 and Other fatigue R53.83 [address] [place] [address] 04880- 3645 May, [place] [id number] [place] [address] 87022- 3762 May, [facility] [id number] [place] [address] 87372- 2822 Apr, Seborrheic keratosis L82.1 and Diabetes type 2, controlled E11.9 [facility] [id number] [place] [address] 70383- 9146 Apr, Seborrheic keratosis L82.1 and Diabetes type 2, controlled E11.9 [facility] [id number] [place] [address] 72148- 9541 Mar, [facility] [id number] [place] [address] 46559- 4267 Mar, [facility] [id number] [place] [address] 67342- 7414 Mar, Encounter for immunization Z23 ; Nevoid hyperpigmentation L81.9 ; Skin tags, multiple acquired L91.8 and Seborrheic keratoses L82.1 [facility] [id number] [place] [address] 66652- 6701 Feb, [facility] [id number] [place] [address] 99799- 9485 Feb, [facility] [id number] [place] [address] 27375- 3108 Feb, [facility] [id number] [place] [address] 15995- 2530 Feb, Diabetes 250.00 ; Tinea corporis 110.5 and Shoulder pain, left 719.41 [facility] [id number] [place] [address] 32169- 7201 Jan, [facility] [id number] [place] [address] 67167- 0228 Dec, [facility] [id number] [place] [address] 23570- 9524 Dec, [facility] [id number] [place] [address] 51391- 1885 Dec, Seborrheic keratoses 702.19 ; Diabetes 250.00 and Hypoglycemia 251.2 [facility] [address], [place] [address]- 4574 Nov, [facility] [address], [place] [address]- 1582 Nov, Abnormal mammogram 793.80 [facility] [address], [place] [address]- 6716 October, Diabetes 250.00 and Colon polyp 211.3 [facility] [address] [place] [address] 92644- 6936 Sep, [facility] [address], [place] [address]- 9526 Sep, [facility] [address] [place] [address] 78179- 0965 Sep, [facility] [address], [place] [address]- 8071 Aug, [facility] [address], [place] [address]- 2979 Aug, [facility] [address], [place] [address]- 9140 Jul, [facility] [address], [place] [address]- 5374 Jul, [facility] [id number], [place] [address]- 8943 Jun, [facility] [address], [place] [address]- 5355 Jun, [facility] [address]- 4107 Jun, [facility] [id number], [place] [address]- 2578 Jun, [facility] [place] [facility] [address] [id number] [place] [address]- 6448 Jun, [facility] [place] [facility] [address] [id number] [place] [address]- 7034 Jun, [facility] [place] [facility] [address] [id number] [place] [address]- 4745 May, [facility] [place] [facility] [address] [id number] [place] [address]- 1061 May, [facility] [place] [facility] [address] [id number] [place] [address]- 4229 Apr, [facility] [place] [facility] [address] [id number] [place] [address]- 3966 Apr, [facility] [place] [facility] [address] [id number] [place] [address]- 6059 Apr, [facility] [place] [facility] [address] [id number] [place] [address]- 0126 Apr, [facility] [place] [facility] [address] [id number] [place] [address]- 9982 Apr, [facility] [place] [facility] [address] [id number] [place] [address]- 3931 Apr, [facility] [place] [facility] [address] [id number] [place] [address]- 4655 Apr, [facility] [place] [facility] [address] [id number], [place] [address]- 6489 Apr, [facility] [place] [facility] [address] [id number] [place] [address]- 8733 Apr, [facility] [place] [facility] [address] [id number] [place] [address]- 8378 Apr, [facility] [place] [facility] [address] [id number] [place] [address]- 1053 Mar, [facility] [place] [facility] [address] [id number], [place] [address]- 2960 Mar, [facility] [place] [facility] [address] [id number] [place] [address]- 4672 Mar, [facility] [place] [facility] [address] [id number] [place] [address]- 6381 Mar, [facility] [place] [facility] [address] [id number] [place] [address]- 4793 Mar, [facility] [place] [facility] [address] [id number] [place] [address]- 2591 Mar, [facility] [place] [facility] [address] [id number] [place] [address]- 1340 Mar, [facility] [place] [facility] [address] [id number] [place] [address]- 3943 Mar, [facility] [place] [facility] [address] [id number] [place] [address]- 4789 Feb, [facility] [place] [facility] [address] [id number] [place] [address]- 7170 Feb, [facility] [place] [facility] [address] [id number] [place] [address]- 3540 Feb, [facility] [place] [facility] [address] [id number] [place] [address]- 1228 Feb, [facility] [place] [facility] [address] [id number] [place] [address]- 2314 Jan, [facility] [place] [facility] [address] [id number] [place] [address]- 8342 Jan, [facility] [place] [facility] [address] [id number] [place] [address]- 9317 Dec, [facility] [place] [facility] [address] [id number] [place] [address]- 4570 Dec, [facility] [place] [facility] [address] [id number] [place] [address]- 6509 Nov, [facility] [place] [facility] [address] [id number] [place] [address]- 4393 Nov, [facility] [address] [id number] [place] [address]- 4038 Nov, [facility] [place] [facility] [address] [id number] [place] [address]- 0876 Nov, [facility] [address] [id number] [place] [address]- 7974 October, [facility] [place] [facility] [address] [id number] [place] [address]- 7014 October, [facility] [address] [id number] [place] [address]- 4619 October, [facility] [place] [facility] [address] [id number] [place] [address]- 7744 October, [facility] [address] [id number] [place] [address] October, [facility] [address] [id number] [place] [address] October, [facility] [place] [facility] [address] [id number] [place] [address] October, [facility] [address] [id number] [place] [address] October, [facility] [place] [facility] [address] [id number] [place] [address] Aug, [facility] [place] [facility] [address] [id number] [place] [address] Aug, [facility] [place] [facility] [address] [id number] [place] [address] Jul, [facility] [place] [facility] [address] [id number] [place] [address] Jul, [facility] [place] [facility] [address] [id number] [place] [address] Jul, [facility] [place] [facility] [address] [id number] [place] [address] Jul, [facility] [place] [facility] [address] [id number] [place] [address] Jul, [facility] [place] [facility] [address] [facility] [id number] [place] [address] Jun, [facility] [place] [facility] [address] [id number] [place] [address] Jun, [facility] [place] [facility] [address] [id number] [place] [address] May, [facility] [place] [facility] [address] [id number] [place] [address] May, [facility] [place] [facility] [address] [id number] [place] [address] Apr, [facility] [place] [facility] [address] [id number] [place] [address] Apr, [facility] [place] [facility] [address] [id number] [place] [address] Mar, [facility] [place] [facility] [address] [id number] [place] [address] Mar, [facility] [place] [facility] [address] [id number], [place] [address] Mar, [facility] [place] [facility] [address] [id number], [place] [address] Feb, [facility] [place] [facility] [address] [id number] [place] [address] Feb, [facility] [place] [facility] [address] [facility] [id number] [place] [address]- 7031 17 Feb, 2013 [facility] [place] [facility] [address] [id number] [place] 04 Feb, 2013 [facility] [place] [facility] [address] [id number] [place] [address] Feb, [facility] [address] [id number] [place] [address] Jan, [facility] [address] [id number] [place] [address] Dec, [facility] [address] [id number] [place] [address] 2706 Nov, [facility] [address] [id number] [place] [address] October, [facility] [address] [id number] [place] [address] Sep, [facility] [address] [id number] [place] [address]76 Aug, [facility] [address] [id number] [place] [address] Aug, [facility] [address] [id number] [place] [address] Aug, [facility] [address] [id number] [place] [address] May, [facility] [address] [id number] [place] [address] May, [facility] [address] [id number] [place] [address]406 May, [facility] [address] [id number] [place] [address] 2665 May, [facility] [address] [id number] [place] [address] 4747 May, [facility] [address] [id number] [place] [address]- 2546 Apr, [facility] [address] [id number] [place] [address] Apr, [facility] [place] [facility] [address] [id number] [place] [address]- [address] 14 Apr, 2012 [facility] [place] [facility] [address] [id number] [place] [address]- [address]856 14 Apr, 2012 [facility] [place] [facility] [address] [id number] [place] [address]- [address] 07 Apr, 2012 [facility] [place] [facility] [address] [id number] [place] [address]- 3554 Apr, [facility] [place] [facility] [address] [id number] [place] [address]- 7815 Apr, [facility] [place] [facility] [address] [id number] [place] [address]- [address]32 Apr, [facility] [place] [facility] [address] [facility] [id number] [place] [address] 2812 Mar, [facility] [place] [facility] [address] [id number] [place] [address] 6848 Mar, [facility] [place] [facility] [address] [id number] [place] [address]290 Mar, [facility] [place] [facility] [address] [id number] [place] [address] 4680 Mar, [facility] [place] [facility] [address] [facility] [id number] [place] [address] Mar, [facility] [place] [facility] [address] [id number], [place] [address] Mar, [facility] [place] [facility] [address] [id number] [place] [address]- 1197 Mar, [facility] [place] [facility] [address] [id number] [place] [address] 5809 Feb, [facility] [place] [facility] [address] [id number], [place] [address] 24 Feb, 2012 [facility] [place] [facility] [address] [id number], [place] [address] Feb, [facility] [place] [facility] [address] [id number] [place] [address]606 Feb, [facility] [place] [facility] [address] [id number] [place] [address] 2336 Jan, [facility] [place] [facility] [address] [id number] [place] [address]- 8456 Jan, [facility] [place] [facility] [address] [id number] [place] [address] 5332 Jan, [facility] [place] [facility] [address] [id number] [place] [address]- 8030 15 Jan, 2012 [facility] [place] [facility] [address] [id number] [place] [address]- 0597 Jan, [facility] [place] [facility] [address] [id number] [place] [address]- 7864 Jan, [facility] [place] [facility] [address] [id number] [place] [address]- 3773 Dec, [facility] [place] [facility] [address] [id number] [place] [address]- 9094 Dec, [facility] [place] [facility] [address] [id number] [place] [address]- 2206 Dec, [facility] [place] [facility] [address] [id number] [place] [address]- 8400 Dec, [facility] [place] [facility] [address] [id number] [place] [address]- 6671 Dec, [facility] [place] [facility] [address] [id number] [place] [address]- 0873 18 Dec, 2011 [facility] [place] [facility] [address] [id number] [place] [address]- 2626 17 Dec, 2011 [facility] [place] [facility] [address] [id number] [place] [address]- 7526 Dec, [facility] [place] [facility] [address] [id number] [place] [address] 6806 20 Nov, 2011 [facility] [place] [facility] [address] [id number] [place] [address]- 3186 11 Nov, 2011 [facility] [place] [facility] [address] [id number] [place] [address]- 2546 08 Nov, 2011 [facility] [place] [facility] [address] [id number] [place] [address]- 9778 07 Nov, 2011 [facility] [place] [facility] [address] [id number] [place] [address]- 1436 October, [facility] [place] [facility] [address] [id number] [place] [address]- 5636 October, [facility] [place] [facility] [address] [id number] [place] [address]- 1646 30 Sep, 2011 [facility] [place] [facility] [address] [id number] [place] [address]- 6048 Sep, [facility] [place] [facility] [address] [id number] [place] [address]- 1195 27 Aug, 2011 [facility] [place] [facility] [address] [id number] [place] [address] 8456 16 Aug, 2011 [facility] [place] [facility] [address] [id number] [place] [address]- 5705 Aug, [facility] [place] [facility] [address] [id number] [place] [address]- 2546 Aug, [facility] [place] [facility] [address] [id number] [place] [address]- 2546 05 Aug, 2011 [facility] [place] [facility] [address] [id number] [place] [address]- 4456 08 Jul, 2011 [facility] [place] [facility] [address] [id number] [place] [address]- 2546 06 Jul, 2011 [facility] [place] [facility] [address] [id number] [place] [address] 1427 Jul, [facility] [place] [facility] [address] [id number] [place] [address]- 9302 Jul, [facility] [place] [facility] [address] [id number] [place] [address]- 4946 Jun, [facility] [place] [facility] [address] [facility] [id number] [place] [address]- 3882 Jun, [facility] [place] [facility] [address] [id number] [place] [address]- 3659 Jun, [facility] [place] [facility] [address] [id number] [place] [address]- 7678 Jun, [facility] [place] [facility] [address] [facility] [id number] [place] [address]- 2947 Jun, [facility] [place] [facility] [address] [facility] [id number] [place] [address]- 9884 May, [facility] [place] [facility] [address] [id number], [place] [address]- 4647 May, [facility] [place] [facility] [address] [facility] [id number], [place] [address]- 5533 May, [facility] [place] [facility] [address] [facility] [id number] [place] [address]- 5775 May, [facility] [place] [facility] [address] [facility] [id number], [place] [address]- 6252 May, [facility] [place] [facility] [address] [id number], [place] [address]- 7462 May, [facility] [place] [facility] [address] [id number], [place] [address]- 7161 Apr, [facility] [place] [facility] [address] [facility] [id number], [place] [address]- 9324 Apr, [facility] [place] [facility] [address] [facility] [id number], [place] [address]- 3255 Mar, [facility] [place] [facility] [id number], [place] [address] 2546 13 Mar, 2011 [facility] [id number], [place] [address] October, [facility] [id number], [place] [address] 2546 May, [facility] [id number], [place] [address] 2546 Apr, [facility] [id number] [place] [place] [address]- 2546 Jul, [facility] [id number] [place] [address]- 0296 May, [facility] [id number] [place] [address]- 2546 May, [facility] [id number] [place] [address] 2546 May, [facility] [id number], [place] [address]- 6946 Apr, [facility] [id number] [place] [address]- 9616 Apr, [facility] [id number], [place] [address] 9566 Mar, [facility] [id number], [place] [address] 2546 Jan, [facility] [address] [id number], [place] [address] 2546 Nov, IMMUNIZATIONS No Known Immunizations SOCIAL HISTORY Never Assessed REASON FOR VISIT Controlled Med Refill 10/31/17 PLAN OF CARE VITAL SIGNS MEDICATIONS Medication Instructions Dosage Frequency Start Date End Date Duration Status [place] 7.5-325 MG Orally 3 times a day [...]
--- OUTSIDE RECORDS SUMMARY | 2018-02-19 21:23 | XMS REPORT ---
Author Author BOOGIE ARAUJO Organization [facility] Address [address] [place] [address] Care Team Providers Care Staff Genetic Counselor Name Role Phone BOOGIE ARAUJO Unavailable PROBLEMS Type Condition ICD9-CM Code AVY74-BX Code Onset Dates Condition Status SNOMED Code Problem History of abnormal cervical Pap smear Z87.898 Active 771776937 Problem Thoracogenic scoliosis of thoracolumbar region M41.35 Active 19661874 Problem Uncontrolled type 2 diabetes mellitus without complication, without long-term current use of insulin E11.65 Active 479415031 Problem Diabetes type 2, controlled E11.9 Active 82978236 Problem Thyroid nodule E04.1 Active 762917176 Problem History of colon polyps Z86.010 Active 021372581 Problem Other iron deficiency anemia D50.8 Active 48212395 Problem Iron deficiency anemia due to chronic blood loss D50.0 Active 070026268 Problem Screening breast examination Z12.39 Active 553818818 Problem Allergic rhinitis, unspecified allergic rhinitis trigger, unspecified rhinitis seasonality J30.9 Active 55551749 Problem Controlled type 2 diabetes mellitus without complication, without long -term current use of insulin E11.9 Active 138315939 Problem Other chronic pain G89.29 Active 95041166 ALLERGIES No Information ENCOUNTERS Encounter Location Date Diagnosis [facility] [address] [facility] [id number] [address] Jan, [facility] [id number] [address] Jan, Other chronic pain G89.29 [facility] [id number] [address] 36[address] Dec, Other chronic pain G89.29 [facility] [address] [facility] [id number], [place] [address] Dec, Diabetes type 2, controlled E11.9 [facility] [id number] [address] 0[address] 14 Nov, 2017 Other chronic pain G89.29 [facility] [address], [place] [address] 8[address] 07 Nov, 2017 [facility] [address], [place] [address] 9796 Nov, [facility] [id number] [place] [address] 34766- 7250 October, Diabetes type 2, controlled E11.9 and Acute cystitis without hematuria N30.00 [facility] [id number] [place] [address] 60541- 0152 October, [facility] [id number] [place] [address] 30804- 0203 October, [facility] [id number] [place] [address] 69791- 3019 October, [facility] [id number] [place] [address] 94898- 0316 October, Other chronic pain G89.29 [facility] [id number] [place] [address] 95362- 7259 Sep, Diabetes type 2, controlled E11.9 [facility] [address], [place] [address] 9603 16 Sep, 2017 [facility] [id number] [place] [address] 93455- 3194 Sep, Diabetes type 2, controlled E11.9 [facility] [address], [place] [address] 4480 Sep, Other chronic pain G89.29 [facility] [address], [place] [address]- 7885 13 Sep, 2017 Other iron deficiency anemia D50.8 [facility] [id number] [place] [address] 22995- 0418 Sep, Other iron deficiency anemia D50.8 [facility] [id number] [place] [address] 66861- 0329 Sep, Iron deficiency anemia due to chronic blood loss D50.0 and Dysuria R30.0 [facility] [id number] [place] [address] 82907- 3872 Sep, Dysuria R30.0 [facility] [id number] [place] [address] 980681- 3079 Sep, Iron deficiency anemia due to chronic blood loss D50.0 [facility] [id number] [place] [address] 92214- 3596 Sep, [facility] [id number] [place] [address] 87258- 4321 Sep, Controlled type 2 diabetes mellitus without complication, without long-term current use of insulin E11.9 ; Leg cramps R25.2 ; Low back pain M54.5 and Other chronic pain G89.29 [facility] [id number] [place] [address] 03954- 7708 Sep, Controlled type 2 diabetes mellitus without complication, without long-term current use of insulin E11.9 ; Low back pain M54.5 ; Other chronic pain G89.29 and Leg cramps R25.2 [facility] [id number] [place] [address] 95442- 0119 Aug, Other chronic pain G89.29 [facility] [id number] [place] [address] 08290- 4045 Jul, Other chronic pain G89.29 [facility] [id number] [place] [address] 07741- 3318 Jul, Pneumonia of left lower lobe due to infectious organism J18.1 [facility] [id number] [place] [address] 59479 -5372 Jul, Dysuria R30.0 ; Cough in adult patient R05 and Pneumonia of left lower lobe due to infectious organism J18.1 [facility] [id number] [place] [address] 35099- 1013 Jul, [facility] [id number] [place] [address] 05122- 9067 Jun, Other chronic pain G89.29 [facility] [id number] [place] [address] 05449- 6087 Jun, [facility] [id number] [place] [address] 29351- 5251 Jun, Diabetes type 2, controlled E11.9 ; Back muscle spasm M62.830 and Other chronic pain G89.29 [facility] [id number] [place] [address] 65202- 3462 Jun, Screening breast examination Z12.31 [facility] [id number] [place] [address] 96613- 7899 May, Other chronic pain G89.29 [facility] [id number] [place] [address] 21057- 7527 May, [facility] [id number] [place] [address] 39797- 1917 May, UTI (urinary tract infection) N39.0 [place] [id number] [place] [address] 14588- 2673 May, Dysuria R30.0 [facility] [address] [place] [address] 01097- 2548 May, Dysuria R30.0 [facility] [id number] [place] [address] 30626- 2547 May, Diabetes type 2, controlled E11.9 ; [facility] current use of 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 Z79.891 and Other chronic pain G89.29 [facility] [id number] [place] [address] 43321- 5999 Apr, Diabetes type 2, controlled E11.9 [facility] [address], [place] [address] Mar, Paronychia of great toe, right L03.031 and Dysuria R30.0 [facility] [address], [place] [address]- 4194 Mar, Diabetes type 2, controlled E11.9 [facility] [id number] [place] [address] 55484- 4353 28 Feb, 2017 Diabetes type 2, controlled E11.9 [facility] [id number] [place] [address] [id number] 13 Feb, 2017 Dental examination Z01.20 [facility] [id number] [place] [address] 05361- 9900 11 Feb, 2017 Diabetes type 2, controlled E11.9 [facility] [id number] [place] [address] 49543- 9811 Feb, Diabetes type 2, controlled E11.9 [facility] [id number] [place] [address] 21576- 2852 Jan, Diabetes type 2, controlled E11.9 [facility] [id number] [place] [address] 86318- 9725 Dec, Diabetes type 2, controlled E11.9 [facility] [id number] [place] [address] 35245- 6492 Dec, Diabetes type 2, controlled E11.9 [facility] [address], [place] [address]- 1193 Nov, Diabetes type 2, controlled E11.9 [facility] [id number] [place] [address] 45800- 9536 Nov, Diabetes type 2, controlled E11.9 [facility] [id number] [place] [address] 73460- 5397 Nov, Diabetes type 2, controlled E11.9 [facility] [address], [place] [address]- 2143 Nov, Diabetes type 2, controlled E11.9 [facility] [id number] [place] [address] 56408- 1066 Nov, Diabetes type 2, controlled E11.9 [facility] [address] [place] [address] 61202- 2037 Nov, Diabetes type 2, controlled E11.9 [facility] [address] [place] [address] 74759- 3130 October, Pain in unspecified shoulder M25.519 [place] [id number] [place] [address] 28719- 6626 October, Diabetes type 2, controlled E11.9 and Cellulitis of right lower extremity L03.115 [facility] [place] [id number] [place] [address] 22083- 4196 October, Pain in unspecified shoulder M25.519 [facility] [id number] [place] [address] 77709- 2417 Sep, Diabetes type 2, controlled E11.9 [facility] [id number] [place] [address] 53084- 2414 Aug, Pain in unspecified shoulder M25.519 [facility] [id number] [place] [address] 00271- 0479 Aug, Diabetes type 2, controlled E11.9 [facility] [address] [place] [address] 49804- 3494 Aug, Diabetes type 2, controlled E11.9 ; Dark urine R82.99 and Localized edema R60.0 [facility] [address], [place] [address]- 8081 Aug, Pain in unspecified shoulder M25.519 [facility] [id number] [place] [address] 36051- 9088 07 Jul, 2016 Pain in unspecified shoulder M25.519 [facility] [place] [id number] [place] [address] 11908- 1347 06 Jul, 2016 [place] [address] 50178- 1764 02 Jul, 2016 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, 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 E11.9 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519 [facility] [id number] [place] [address] 59290- 7635 05 May, 2016 Thoracogenic scoliosis of thoracolumbar region M41.35 ; Low back pain M54.5 ; Other chronic pain G89.29 and Uncontrolled type 2 diabetes mellitus without complication, without long-term current use of insulin E11.65 [place] [id number] [place] [address] 17632- 8810 Apr, [place] [address] 35905- 9924 Apr, [place] [id number] [place] [address] 26122- 9619 Apr, History of type 2 diabetes mellitus Z86.39 and Encounter for immunization Z23 [facility] [address], [place] [address]- 6963 Mar, [facility] [id number] [place] [address] 33029- 5006 Mar, [facility] [address], [place] [address]- 4037 Feb, [facility] [id number] [place] [address] 22373- 1179 Jan, [facility] [address] [place] [address] 52263- 4113 Jan, [facility] [id number] [place] [address] 56180- 6471 Dec, [facility] [id number] [place] [address] 40433 -9587 Dec, Sore throat J02.9 and Allergic rhinitis, unspecified allergic rhinitis type J30.9 [facility] [address] [place] [address] 29368- 5561 Dec, Diabetes type 2, controlled E11.9 [facility] [address] [place] [address] 52440- 0073 Nov, [facility] [address], [place] [address]- 8045 Nov, [facility] [address] [place] [address] 37011- 2951 October, [facility] [address] [place] [address] 11993- 5470 October, [facility] [id number] [place] [address] 51008- 3933 Sep, [facility] [address], [place] [address]- 0360 Aug, [facility] [id number] [place] [address] 28230- 1615 Aug, Diabetes type 2, controlled E11.9 ; UTI (urinary tract infection) N39.0 and Bacterial infection A49.9 [facility] [address] [place] [address] 36411- 4544 Jul, [facility] [place] [id number] [place] [address] 77421- 8206 Jul, [facility] [id number] [place] [address] 21046- 8250 Jul, Pharyngitis J02.9 and Seborrheic keratoses L82.[address] 73262- 7883 Jun, [facility] [id number] [place] [address] 58715- 6120 May, [place] [id number] [place] [address] 65649- 6122 May, Skin tags, multiple acquired L91.8 ; Seborrheic keratoses L82.1 and Diabetes type 2, controlled E11.9 [address] [place] [address] 27280- 0849 May, Well woman exam Z01.419 ; Papanicolaou [...] Other fatigue R53.83 and Other hemorrhoids K64.8 [address] [place] [address] 49487- 4244 May, [place] [id number] [place] [address] 17390- 7161 May, [facility] [id number] [place] [address] 84768- 9520 Apr, Seborrheic keratosis L82.1 and Diabetes type 2, controlled E11.9 [facility] [id number] [place] [address] 81675- 0289 Apr, Seborrheic keratosis L82.1 and Diabetes type 2, controlled E11.9 [facility] [id number] [place] [address] 23454- 5255 Mar, [facility] [id number] [place] [address] 74958- 6290 Mar, [facility] [id number] [place] [address] 42070- 6285 Mar, Nevoid hyperpigmentation L81.9 ; Encounter for immunization Z23 ; Skin tags, multiple acquired L91.8 and Seborrheic keratoses L82.1 [facility] [id number] [place] [address] 34384- 9112 Feb, [facility] [id number] [place] [address] 01559- 3398 Feb, [facility] [id number] [place] [address] 46909- 7882 Feb, [facility] [id number] [place] [address] 94120- 4973 Feb, Diabetes 250.00 ; Tinea corporis 110.5 and Shoulder pain, left 719.41 [facility] [id number] [place] [address] 56721- 5490 Jan, [facility] [id number] [place] [address] 38657- 5615 Dec, [facility] [id number] [place] [address] 32495- 4211 Dec, [facility] [id number] [place] [address] 52412- 6139 Dec, Seborrheic keratoses 702.19 ; Diabetes 250.00 and Hypoglycemia 251.2 [facility] [address], [place] [address]- 1565 Nov, [facility] [address], [place] [address]- 2257 Nov, Abnormal mammogram 793.80 [facility] [address], [place] [address]- 8360 October, Diabetes 250.00 and Colon polyp 211.3 [facility] [address] [place] [address] 40930- 2162 Sep, [facility] [address], [place] [address]- 8074 Sep, [facility] [address] [place] [address] 70775- 7235 Sep, [facility] [address], [place] [address]- 6288 Aug, [facility] [address], [place] [address]- 8209 Aug, [facility] [address], [place] [address]- 8023 Jul, [facility] [address], [place] [address]- 5789 Jul, [facility] [id number], [place] [address]- 1280 Jun, [facility] [address], [place] [address]- 4641 Jun, [facility] [address] 1563 Jun, [facility] [id number], [place] [address]- 2199 Jun, [facility] [place] [facility] [address] [id number] [place] [address]- 3527 Jun, [facility] [place] [facility] [address] [id number] [place] [address]- 5468 Jun, [facility] [place] [facility] [address] [id number] [place] [address]- 0388 May, [facility] [place] [facility] [address] [id number] [place] [address]- 9881 May, [facility] [place] [facility] [address] [id number] [place] [address]- 0869 Apr, [facility] [place] [facility] [address] [id number] [place] [address]- 4329 Apr, [facility] [place] [facility] [address] [id number] [place] [address]- 0414 Apr, [facility] [place] [facility] [address] [id number] [place] [address]- 6237 Apr, [facility] [place] [facility] [address] [id number] [place] [address]- 8611 Apr, [facility] [place] [facility] [address] [id number] [place] [address]- 1044 Apr, [facility] [place] [facility] [address] [id number] [place] [address]- 2261 Apr, [facility] [place] [facility] [address] [id number], [place] [address]- 5887 Apr, [facility] [place] [facility] [address] [id number] [place] [address]- 5938 Apr, [facility] [place] [facility] [address] [id number] [place] [address]- 3869 Apr, [facility] [place] [facility] [address] [id number] [place] [address]- 5100 Mar, [facility] [place] [facility] [address] [id number] [address]- 7470 Mar, [facility] [place] [facility] [address] [id number] [place] [address]- 7901 Mar, [facility] [place] [facility] [address] [id number] [place] [address]- 4892 Mar, [facility] [place] [facility] [address] [id number] [place] [address]- 1370 Mar, [facility] [place] [facility] [address] [id number] [place] [address]- 6406 Mar, [facility] [place] [facility] [address] [id number] [place] [address]- 2382 Mar, [facility] [place] [facility] [address] [id number] [place] [address]- 6867 Mar, [facility] [place] [facility] [address] [id number] [place] [address]- 6585 Feb, [facility] [place] [facility] [address] [id number] [place] [address]- 9540 Feb, [facility] [place] [facility] [address] [id number] [place] [address]- 0246 Feb, [facility] [place] [facility] [address] [id number] [place] [address]- 1441 Feb, [facility] [place] [facility] [address] [id number] [place] [address]- 0313 Jan, [facility] [place] [facility] [address] [id number] [place] [address]- 9497 Jan, [facility] [place] [facility] [address] [id number] [place] [address]- 7004 Dec, [facility] [place] [facility] [address] [id number] [place] [address]- 8869 Dec, [facility] [place] [facility] [address] [id number] [place] [address]- 1000 Nov, [facility] [place] [facility] [address] [id number] [place] [address]- 8763 Nov, [facility] [address] [id number] [place] [address]- 1456 Nov, [facility] [place] [facility] [address] [id number] [place] [address]- 3716 Nov, [facility] [address] [id number] [place] [address]- 0322 October, [facility] [place] [facility] [address] [id number] [place] [address]- 2500 October, [facility] [address] [id number] [place] [address]- 2514 October, [facility] [place] [facility] [address] [id number] [place] [address]- 0647 October, [facility] [address] [id number] [place] [address]- 2146 October, [facility] [address] [id number] [place] [address]- 7785 October, [facility] [place] [facility] [address] [id number] [place] [address]- 8661 October, [facility] [address] [id number] [place] [address]- 0893 October, [facility] [place] [facility] [address] [id number] [place] [address]- 3353 Aug, [facility] [place] [facility] [address] [id number] [place] [address]- 8232 Aug, [facility] [place] [facility] [address] [id number] [place] [address] Jul, [facility] [place] [facility] [address] [id number] [place] [address] Jul, [facility] [place] [facility] [address] [id number] [place] [address] Jul, [facility] [place] [facility] [address] [id number] [place] [address] Jul, [facility] [place] [facility] [address] [id number] [place] [address] Jul, [facility] [place] [facility] [address] [facility] [id number] [place] [address] Jun, [facility] [place] [facility] [address] [id number] [place] [address] Jun, [facility] [place] [facility] [address] [id number] [place] [address] [address] May, [facility] [place] [facility] [address] [id number] [place] [address] May, [facility] [place] [facility] [address] [id number] [place] [address] Apr, [facility] [place] [facility] [address] [id number] [place] [address] Apr, [facility] [place] [facility] [address] [id number] [place] [address] Mar, [facility] [place] [facility] [address] [id number] [place] [address] Mar, [facility] [place] [facility] [address] [id number], [place] [address] Mar, [facility] [place] [facility] [address] [id number], [place] [address] Feb, [facility] [place] [facility] [address] [id number] [place] [address] Feb, [facility] [place] [facility] [address] [facility] [id number] [place] [address] 17 Feb, 2013 [facility] [place] [facility] [address] [id number] [place] [address] 04 Feb, 2013 [facility] [place] [facility] [address] [id number] [place] [address] Feb, [facility] [address] [id number] [place] [address] Jan, [facility] [address] [id number] [place] [address] Dec, [facility] [address] [id number] [place] [address] Nov, [facility] [address] [id number] [place] [address] October, [facility] [address] [id number] [place] [address] Sep, [facility] [address] [id number] [place] [address] Aug, [facility] [address] [id number] [place] [address] Aug, [facility] [address] [id number] [place] [address] Aug, [facility] [address] [id number] [place] [address] May, [facility] [address] [id number] [place] [address] May, [facility] [address] [id number] [place] [address] May, [facility] [address] [id number] [place] [address] May, [facility] [address] [id number] [place] [address] May, [facility] [address] [id number] [place] [address] Apr, [facility] [address] [id number] [place] [address] Apr, [facility] [place] [facility] [address] [id number] [place] [address] 14 Apr, 2012 [facility] [place] [facility] [address] [id number] [place] [address] 14 Apr, 2012 [facility] [place] [facility] [address] [id number] [place] [address] 07 Apr, 2012 [facility] [place] [facility] [address] [id number] [place] [address] Apr, [facility] [place] [facility] [address] [id number] [place] [address]- [address] Apr, [facility] [place] [facility] [address] [id number] [place] [address] Apr, [facility] [place] [facility] [address] [facility] [id number] [place] [address] Mar, [facility] [place] [facility] [address] [id number] [place] [address] 77[address] Mar, [facility] [place] [facility] [address] [id number] [place] [address] Mar, [facility] [place] [facility] [address] [id number] [place] [address] Mar, [facility] [place] [facility] [address] [facility] [id number] [place] [address] Mar, [facility] [place] [facility] [address] [id number], [place] [address] Mar, [facility] [place] [facility] [address] [id number] [place] [address] Mar, [facility] [place] [facility] [address] [id number] [place] [address] Feb, [facility] [place] [facility] [address] [id number], [place] [address] 24 Feb, 2012 [facility] [place] [facility] [address] [id number], [place] [address] Feb, [facility] [place] [facility] [address] [id number] [place] [address] Feb, [facility] [place] [facility] [address] [id number] [place] [address] Jan, [facility] [place] [facility] [address] [id number] [place] [address] Jan, [facility] [place] [facility] [address] [id number] [place] [address] Jan, [facility] [place] [facility] [address] [id number] [place] [address] 15 Jan, 2012 [facility] [place] [facility] [address] [id number] [place] [address] Jan, [facility] [place] [facility] [address] [id number] [place] [address] Jan, [facility] [place] [facility] [address] [id number] [place] [address] 4070 Dec, [facility] [place] [facility] [address] [id number] [place] [address] Dec, [facility] [place] [facility] [address] [id number] [place] [address] 2938 Dec, [facility] [place] [facility] [address] [id number] [place] [address] Dec, [facility] [place] [facility] [address] [id number] [place] [address]173 Dec, [facility] [place] [facility] [address] [id number] [place] [address] 9730 18 Dec, 2011 [facility] [place] [facility] [address] [id number] [place] [address] 17 Dec, 2011 [facility] [place] [facility] [address] [id number] [place] [address] Dec, [facility] [place] [facility] [address] [id number] [place] [address] 20 Nov, 2011 [facility] [place] [facility] [address] [id number] [place] [address]- 6[address] 11 Nov, 2011 [facility] [place] [facility] [address] [id number] [place] [address]- [address]46 08 Nov, 2011 [facility] [place] [facility] [address] [id number] [place] [address]- [address] 07 Nov, 2011 [facility] [place] [facility] [address] [id number] [place] [address] October, [facility] [place] [facility] [address] [id number] [place] [address]- 49[address] October, [facility] [place] [facility] [address] [id number] [place] [address] 30 Sep, 2011 [facility] [place] [facility] [address] [id number] [place] [address] 9[address] Sep, [facility] [place] [facility] [address] [id number] [place] [address]- 6558 27 Aug, 2011 [facility] [place] [facility] [address] [id number] [place] [address]- 0416 16 Aug, 2011 [facility] [place] [facility] [address] [id number] [place] [address]- 8978 Aug, [facility] [place] [facility] [address] [id number] [place] [address]- 2546 Aug, [facility] [place] [facility] [address] [id number] [place] [address]- [address]46 05 Aug, 2011 [facility] [place] [facility] [address] [id number] [place] [address]- [address]116 08 Jul, 2011 [facility] [place] [facility] [address] [id number] [place] [address]- [address]46 06 Jul, 2011 [facility] [place] [facility] [address] [id number] [place] [address] Jul, [facility] [place] [facility] [address] [id number] [place] [address] 8036 Jul, [facility] [place] [facility] [address] [id number] [place] [address] 0816 Jun, [facility] [place] [facility] [address] [facility] [id number] [place] [address]- [address]892 Jun, [facility] [place] [facility] [address] [id number] [place] [address]- 1170 Jun, [facility] [place] [facility] [address] [id number] [place] [address]- 0154 Jun, [facility] [place] [facility] [address] [facility] [id number] [place] [address]- 1236 Jun, [facility] [place] [facility] [address] [facility] [id number] [place] [address]- 6990 May, [facility] [place] [facility] [address] [id number], [place] [address] May, [facility] [place] [facility] [address] [facility] [id number], [place] [address]- 3584 May, [facility] [place] [facility] [address] [facility] [id number] [place] [address]- 2080 May, [facility] [place] [facility] [address] [facility] [id number], [place] [address]- 7026 May, [facility] [place] [facility] [address] [id number], [place] [address]- 2876 May, [facility] [place] [facility] [address] [id number], [place] [address]- 5194 Apr, [facility] [place] [facility] [address] [facility] [id number], [place] [address] Apr, [facility] [place] [facility] [address] [facility] [id number], [place] [address]- 7824 Mar, [facility] [place] [facility] [id number], [place] [address] 13 Mar, 2011 [facility] [id number], [place] [address] October, [facility] [id number], [place] [address]70 May, [facility] [id number], [place] [address]- 7025 Apr, [facility] [id number], [place] [address]- [address]806 Jul, [facility] [id number] [place] [address]32 May, [facility] [id number], [place] [address]- 2263 May, [facility] [id number] [place] [address]60 May, [facility] [id number] [address] Apr, [facility] [id number], [place] [address]- 6367 Apr, [facility] [id number], [place] [address]- 9854 Mar, [facility] [id number], [place] [address]- [address]80 Jan, [facility] [id number] [address] Nov, IMMUNIZATIONS No Known Immunizations SOCIAL HISTORY Never Assessed REASON FOR VISIT Hospital Discharge PLAN OF CARE VITAL SIGNS MEDICATIONS Unknown [...]
--- OUTSIDE RECORDS SUMMARY | 2018-02-19 21:24 | XMS REPORT ---
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 Role Phone BOOGIE ARAUJO Unavailable PROBLEMS Type Condition ICD9-CM Code QPO68-YO Code Onset Dates Condition Status SNOMED Code Problem History of abnormal cervical Pap smear Z87.898 Active 387162452 Problem Thoracogenic scoliosis of thoracolumbar region M41.35 Active 92325906 Problem Uncontrolled type 2 diabetes mellitus without complication, without long-term current use of insulin E11.65 Active 262452722 Problem Diabetes type 2, controlled E11.9 Active 22965614 Problem Thyroid nodule E04.1 Active 170992559 Problem History of colon polyps Z86.010 Active 934977269 Problem Other iron deficiency anemia D50.8 Active 40671891 Problem Iron deficiency anemia due to chronic blood loss D50.0 Active 831509773 Problem Screening breast examination Z12.39 Active 923532941 Problem Allergic rhinitis, unspecified allergic rhinitis trigger, unspecified rhinitis seasonality J30.9 Active 85343913 Problem Controlled type 2 diabetes mellitus without complication, without long -term current use of insulin E11.9 Active 355738979 Problem Other chronic pain G89.29 Active 73192244 ALLERGIES No Information ENCOUNTERS Encounter Location Date Diagnosis [facility] [place] [id number] [address] Jan, [facility] [place] [id number] [address] Dec, Other chronic pain G89.29 [facility] [place] [id number] [place] [address] 80349- 2482 Dec, Diabetes type 2, controlled E11.9 [facility] [place] [id number] [address] 3346 Nov, Other chronic pain G89.29 [facility] [place] [id number] [address] 3612 Nov, [facility] [place] [id number] [place] [address] 21238- 5349 Nov, [facility] [place] [address] [address] 7780 October, Diabetes type 2, controlled E11.9 and Acute cystitis without hematuria N30.00 [facility] [place] [address] [address] 7643 October, [facility] [place] [id number] [place] [address] 42192- 5527 October, [facility] [place] [id number] [place] [address] 33213- 9135 October, [facility] [place] [id number] [place] [address] 70197- 4751 October, Other chronic pain G89.29 [facility] [place] [address], [place] [address] 8015 Sep, Diabetes type 2, controlled E11.9 [facility] [place] [address], [place] [address] 9156 Sep, [facility] [place] [address] [address] 6006 Sep, Diabetes type 2, controlled E11.9 [facility] [place] [address], [place] [address] 3687 16 Sep, 2017 Other chronic pain G89.29 [facility] [place] [address], [place] [address] 9113 13 Sep, 2017 Other iron deficiency anemia D50.8 [facility] [place] [address] [address]- 1033 12 Sep, 2017 Other iron deficiency anemia D50.8 [facility] [place] [address] [place] [address] 03005- 3002 Sep, Iron deficiency anemia due to chronic blood loss D50.0 and Dysuria R30.0 [place] [address] [place] [address] 59869- 5629 Sep, Dysuria R30.0 [place] [id number] [place] [address] 37253- 9326 Sep, Iron deficiency anemia due to chronic blood loss D50.0 [facility] [place] [id number] [place] [address] 60381- 5554 Sep, [place] [address] [place] [address] 94150- 1073 Sep, Controlled type 2 diabetes mellitus without complication, without long-term current use of insulin E11.9 ; Leg cramps R25.2 ; Low back pain M54.5 and Other chronic pain G89.29 [place] [address] [place] [address] 17883- 9730 Sep, Controlled type 2 diabetes mellitus without complication, without long-term current use of insulin E11.9 ; Low back pain M54.5 ; Other chronic pain G89.29 and Leg cramps R25.2 [place] [address] [place] [address] 46647- 8680 Aug, Other chronic pain G89.29 [place] [address] [place] [address] 26766- 5501 Jul, Other chronic pain G89.29 [place] [address] [place] [address] 96991- 4701 Jul, Pneumonia of left lower lobe due to infectious organism J18.1 [facility] [address] [place] [address] 64245 -9039 Jul, Dysuria R30.0 ; Cough in adult patient R05 and Pneumonia of left lower lobe due to infectious organism J18.1 [place] [id number], [place] [address] 1377 08 Jul, 2017 [facility] [place] [address], [place] [address]- 2883 Jun, Other chronic pain G89.29 [facility] [place] [address], [place] [address]- 0756 Jun, [facility] [place] [address] [place] [address] 72289- 6625 Jun, Diabetes type 2, controlled E11.9 ; Back muscle spasm M62.830 and Other chronic pain G89.29 [facility] [place] [id number] [place] [address] 97900- 2535 Jun, Screening breast examination Z12.31 [facility] [place] [address] [place] [address] 69026- 3521 May, Other chronic pain G89.29 [facility] [place] [address] [place] [address] 02028- 0402 May, [facility] [place] [address] [place] [address] 44167- 6353 May, UTI (urinary tract infection) N39.0 [facility] [place] [address], [place] [address]- 5380 04 May, 2017 Dysuria R30.0 [facility] [place] [address] [place] [address] 17881- 6196 04 May, 2017 Dysuria R30.0 [facility] [place] [address] [address]- 2989 04 May, 2017 Diabetes type 2, controlled E11.9 ; 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 and Other chronic pain G89.29 [facility] [place] [address], [place] [address]- 2744 Apr, Diabetes type 2, controlled E11.9 [facility] [address], [place] [address] Mar, Paronychia of great toe, right L03.031 and Dysuria R30.0 [facility] [place] [id number] [place] [address] 79984- 1139 09 Mar, 2017 Diabetes type 2, controlled E11.9 [facility] [place] [address] [place] [address] 17118- 5874 28 Feb, 2017 Diabetes type 2, controlled E11.9 [facility] [address] [place] [address] [id number] 13 Feb, 2017 Dental examination Z01.20 [facility] [place] [id number] [place] [address] 30627- 6569 11 Feb, 2017 Diabetes type 2, controlled E11.9 [facility] [place] [id number] [place] [address] 86437- 7917 07 Feb, 2017 Diabetes type 2, controlled E11.9 [facility] [place] [id number] [place] [address] 56224- 9832 Jan, Diabetes type 2, controlled E11.9 [facility] [place] [id number] [place] [address] 98884- 4163 Dec, Diabetes type 2, controlled E11.9 [facility] [place] [id number] [place] [address] 61503- 8624 Dec, Diabetes type 2, controlled E11.9 [facility] [place] [id number] [place] [address] 58445- 4862 Nov, Diabetes type 2, controlled E11.9 [facility] [place] [address] [place] [address] 66068- 5804 Nov, Diabetes type 2, controlled E11.9 [facility] [place] [id number] [place] [address] 17055- 0103 Nov, Diabetes type 2, controlled E11.9 [facility] [place] [address] [place] [address] 19580- 6440 Nov, Diabetes type 2, controlled E11.9 [facility] [place] [address], [place] [address]- 0919 Nov, Diabetes type 2, controlled E11.9 [facility] [place] [address] [place] [address] 77803- 2997 Nov, Diabetes type 2, controlled E11.9 [facility] [place] [id number] [place] [address] 36784- 5221 October, Pain in unspecified shoulder M25.519 [facility] [place] [id number] [place] [address] 01219- 3162 October, Diabetes type 2, controlled E11.9 and Cellulitis of right lower extremity L03.115 [place] [id number] [place] [address] 39019- 8720 October, Pain in unspecified shoulder M25.519 [place] [id number] [place] [address] 16702- 6188 Sep, Diabetes type 2, controlled E11.9 [facility] [place] [id number] [place] [address] 97932- 2697 Aug, Pain in unspecified shoulder M25.519 [place] [id number] [place] [address] 85862- 7620 Aug, Diabetes type 2, controlled E11.9 [place] [id number] [place] [address] 67140- 6183 Aug, Diabetes type 2, controlled E11.9 ; Dark urine R82.99 and Localized edema R60.0 [place] [id number] [place] [address] 45420- 7659 Aug, Pain in unspecified shoulder M25.519 [facility] [place] [id number] [place] [address] 46311- 7382 Jul, Pain in unspecified shoulder M25.519 [place] [id number] [place] [address] 22493- 9326 06 Jul, 2016 [place] [id number] [place] [address] 65187- 0315 02 Jul, 2016 Diabetes type 2, controlled E11.9 and [facility] current use of 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 Z79.891 [place] [id number] [place] [address] 57208- 4801 Jun, Diabetes type 2, controlled E11.9 [place] [address] [address]45- 2010 Jun, Screening breast examination Z12.39 and Allergic rhinitis, unspecified allergic rhinitis trigger, unspecified rhinitis seasonality J30.9 [place] [address] 88891- 5757 10 Jun, 2016 Pain in unspecified shoulder M25.[address] 51729- 0976 May, [place] [address] 07448- 4442 May, Pain in unspecified shoulder M25.519 [place] [address] 50447- 5343 05 May, 2016 Thoracogenic scoliosis of thoracolumbar region M41.35 ; Low back pain M54.5 ; Other chronic pain G89.29 and Uncontrolled type 2 diabetes mellitus without complication, without long-term current use of insulin E11.65 [place] [id number] [place] [address] 09382- 2709 28 Apr, 2016 [place] [id number] [place] [address] 81848- 5277 Apr, [address] 42375- 8945 04 Apr, 2016 History of type 2 diabetes mellitus Z86.39 and Encounter for immunization Z23 [place] [id number] [place] [address] 14125- 0352 Mar, [facility] [place] [address] [facility] [id number] [address]- 3129 Mar, [facility] [place] [address] [place] [address]- 6264 Feb, [facility] [place] [address] [facility] [id number] [place] [address]- 6199 Jan, [facility] [place] [address] [address]- 2576 Jan, [facility] [place] [id number], [place] [address]- 3206 Dec, [facility] [id number], [place] [address] -2641 Dec, Sore throat J02.9 and Allergic rhinitis, unspecified allergic rhinitis type J30.9 [facility] [place] [address], [place] [address]- 3272 Dec, Diabetes type 2, controlled E11.9 [facility] [place] [id number] [address]- 4517 Nov, [facility] [place] [address] [place] [address]- 2486 Nov, [facility] [place] [id number] [address]- 3212 October, [facility] [place] [id number] [address]- 7517 October, [facility] [place] [id number] [address]- 3683 Sep, [facility] [place] [id number] [address]- 5294 Aug, [facility] [place] [id number] 8311 Aug, Diabetes type 2, controlled E11.9 ; UTI (urinary tract infection) N39.0 and Bacterial infection A49.9 [place] [address] [place] [address] 78315- 7573 Jul, [place] [id number] [place] [address] 83913- 1387 Jul, [place] [id number] [place] [address] 56777- 1009 Jul, Pharyngitis J02.9 and Seborrheic keratoses L82.1 [place] [id number] [place] [address] 96966- 7753 Jun, [place] [address] 97615- 7512 May, [place] [id number] [place] [address] 76255- 0980 May, Skin tags, multiple acquired L91.8 ; Seborrheic keratoses L82.1 and Diabetes type 2, controlled E11.9 [place] [id number] [place] [address] 10053- 7033 May, Well woman exam Z01.419 ; Papanicolaou [...] Other fatigue R53.83 and Other hemorrhoids K64.8 [place] [address] [place] [address] 66889- 7600 May, [place] [id number] [place] [address] 63941- 7813 May, [place] [id number] [place] [address] 25259- 9974 Apr, Seborrheic keratosis L82.1 and Diabetes type 2, controlled E11.9 [facility] [place] [id number] [place] [address] 06483- 1364 Apr, Seborrheic keratosis L82.1 and Diabetes type 2, controlled E11.9 [facility] [place] [id number] [place] [address] 03136- 9565 Mar, [facility] [place] [address] 98332- 4935 Mar, [facility] [place] [id number] [place] [address] 67782- 0230 Mar, Nevoid hyperpigmentation L81.9 ; Encounter for immunization Z23 ; Skin tags, multiple acquired L91.8 and Seborrheic keratoses L82.1 [facility] [place] [id number] [place] [address] 82851- 2872 Feb, [facility] [place] [id number] [place] [address] 84349- 7917 Feb, [facility] [place] [id number] [place] [address] 36697- 2638 Feb, [facility] [place] [id number] [place] [address] 74251- 6242 Feb, Diabetes 250.00 ; Tinea corporis 110.5 and Shoulder pain, left 719.41 [facility] [place] [id number] [place] [address] 14284- 5228 Jan, [facility] [place] [id number] [place] [address] 20879- 1203 Dec, [facility] [place] [address] 16965- 5227 Dec, [facility] [place] [id number] [place] [address] 91693- 2896 Dec, Seborrheic keratoses 702.19 ; Diabetes 250.00 and Hypoglycemia 251.2 [facility] [place] [address] [id number] [place] [address]- 6629 Nov, [facility] [place] [address] [facility] [id number] [place] [address]- 9947 Nov, Abnormal mammogram 793.80 [facility] [place] [address] [facility] [id number] [place] [address]- 3560 October, Diabetes 250.00 and Colon polyp 211.3 [facility] [place] [address] [id number] [address]- 6318 Sep, [facility] [place] [address] [id number] [place] [address]- 9952 Sep, [facility] [place] [address] [facility] [id number] [place] [address]- 9281 Sep, [facility] [place] [address] [place] [address]- 2942 Aug, [facility] [place] [address] [id number] [place] [address]- 5629 Aug, [facility] [place] [address] [id number] [place] [address]- 6690 Jul, [facility] [place] [address] [facility] [id number] [place] [address]- 3799 Jul, [facility] [place] [id number] [address]- 5316 Jun, [facility] [place] [id number] [place] [address]- 0270 Jun, [facility] [place] [address] [id number] [place] [address]- 6034 Jun, [facility] [place] [address] [facility] [id number] [place] 8720 Jun, [facility] [place] [id number] [place] [address]- 3066 Jun, [facility] [place] [facility] [address] [id number] [place] [address]- 2864 Jun, [facility] [place] [facility] [address] [id number] [place] [address]- 7151 May, [facility] [place] [facility] [address] [id number] [place] [address]- 6300 May, [facility] [place] [facility] [address] [id number] [place] [address]- 1616 Apr, [facility] [place] [facility] [address] [id number] [place] [address]- 0429 Apr, [facility] [place] [facility] [address] [id number] [place] [address]- 1728 Apr, [facility] [place] [facility] [address] [id number] [place] [address]- 7519 Apr, [facility] [place] [facility] [address] [id number] [place] [address]- 0217 Apr, [facility] [place] [facility] [address] [id number] [place] [address]- 4701 Apr, [facility] [place] [facility] [address] [id number] [place] [address]- 5710 Apr, [facility] [place] [facility] [address] [id number] [place] [address]- 0086 Apr, [facility] [place] [facility] [address] [id number] [place] [address]- 7586 Apr, [facility] [place] [facility] [address] [id number] [place] [address] Apr, [facility] [place] [facility] [address] [id number] [place] [address] Mar, [facility] [place] [facility] [address] [id number] [place] [address] Mar, [facility] [place] [facility] [address] [id number] [place] [address] Mar, [facility] [place] [facility] [address] [id number] [place] [address] Mar, [facility] [place] [facility] [address] [id number] [place] [address] Mar, [facility] [place] [facility] [address] [id number] [place] [address] Mar, [facility] [place] [facility] [address] [id number] [place] [address] Mar, [facility] [place] [facility] [address] [id number] [place] [address] Mar, [facility] [place] [facility] [address] [id number] [place] [address] Feb, [facility] [place] [facility] [address] [id number] [place] [address] Feb, [facility] [place] [facility] [address] [id number] [place] [address] Feb, [facility] [place] [facility] [address] [id number] [place] [address] Feb, [facility] [place] [facility] [address] [id number] [place] [address] Jan, [facility] [place] [facility] [address] [id number] [place] [address] Jan, [facility] [place] [facility] [address] [id number], [place] [address] Dec, [facility] [place] [facility] [address] [id number] [place] [address] Dec, [facility] [place] [facility] [address] [id number], [place] [address] Nov, [facility] [place] [facility] [address] [id number] [place] [address]- [address] Nov, [facility] [place] [facility] [address] [id number] [place] [address] Nov, [facility] [place] [facility] [address] [id number] [place] [address] Nov, [facility] [place] [facility] [address] [id number] [place] [address] October, [facility] [place] [facility] [address] [id number] [place] [address] October, [facility] [place] [facility] [address] [id number] [place] [address] October, [facility] [place] [facility] [address] [id number] [place] [address] October, [facility] [place] [facility] [address] [id number] [place] [address]- [address] October, [facility] [place] [facility] [address] [id number] [place] [address] October, [facility] [place] [facility] [address] [id number] [place] [address] October, [facility] [place] [facility] [address] [id number] [place] [address] October, [facility] [place] [facility] [address] [id number] [place] [address] Aug, [facility] [place] [facility] [address] [id number] [place] [address] Aug, [facility] [place] [facility] [address] [id number] [place] [address] Jul, [facility] [place] [facility] [address] [id number] [place] [address]- [address] Jul, [facility] [place] [facility] [address] [id number] [place] [address] Jul, [facility] [place] [facility] [address] [id number] [place] [address] Jul, [facility] [place] [facility] [address] [id number] [place] [address] Jul, [facility] [place] [facility] [address] [id number] [place] [address] Jun, [facility] [place] [facility] [address] [id number] [place] [address] Jun, [facility] [place] [facility] [address] [id number] [place] [address] May, [facility] [place] [facility] [address] [id number] [place] [address] May, [facility] [place] [facility] [address] [id number] [place] [address] Apr, [facility] [place] [facility] [address] [id number] [place] [address] Apr, [facility] [place] [facility] [address] [id number], [place] [address] Mar, [facility] [place] [facility] [address] [id number] [place] [address] Mar, [facility] [place] [facility] [address] [id number], [place] [address] Mar, [facility] [place] [facility] [address] [id number], [place] [address] Feb, [facility] [place] [facility] [address] [id number], [place] [address] 20 Feb, 2013 [facility] [place] [facility] [address] [id number] [place] [address] 17 Feb, 2013 [facility] [place] [facility] [address] [id number], [place] [address] 04 Feb, 2013 [facility] [place] [facility] [address] [id number], [place] [address] 04 Feb, 2013 [facility] [place] [facility] [address] [id number], [place] [address] Jan, [facility] [address] [id number] [place] [address] Dec, [facility] [place] [facility] [address] [id number] [place] [address] Nov, [facility] [place] [facility] [address] [id number] [place] [address] October, [facility] [place] [facility] [address] [id number] [place] [address] Sep, [facility] [place] [facility] [address] [id number] [place] [address] 8427 Aug, [facility] [place] [facility] [address] [id number] [place] [address] Aug, [facility] [address] [id number] [place] [address]- 7080 Aug, [facility] [place] [facility] [address] [id number] [place] [address] 8798 May, [facility] [address] [id number] [place] [address]- 1107 May, [facility] [place] [facility] [address] [facility] [id number] [place] [address]- 6047 May, [facility] [place] [facility] [address] [id number] [place] [address]- 8556 May, [facility] [place] [facility] [address] [id number] [place] [address]- [address]1 11 May, 2012 [facility] [place] [facility] [address] [id number] [place] [address]- 4[address] 16 Apr, 2012 [facility] [place] [facility] [address] [id number] [place] [address]- 8855 16 Apr, 2012 [facility] [place] [facility] [address] [facility] [id number] [place] [address]- 1544 14 Apr, 2012 [facility] [place] [facility] [address] [id number] [place] [address]- 6432 14 Apr, 2012 [facility] [place] [facility] [address] [id number] [place] [address]- 6[address] 07 Apr, 2012 [facility] [place] [facility] [address] [id number] [place] [address]- 9296 Apr, [facility] [place] [facility] [address] [id number] [place] [address]- 1137 Apr, [facility] [place] [facility] [address] [id number] [place] [address]- 1795 Apr, [facility] [place] [facility] [address] [id number] [place] [address]- [address]254 Mar, [facility] [place] [facility] [address] [id number] [place] [address]- 1858 Mar, [facility] [place] [facility] [address] [id number] [place] [address]- 5[address] Mar, [facility] [place] [facility] [address] [id number] [place] [address]- 3[address] Mar, [facility] [place] [facility] [address] [id number] [place] [address]- 1896 Mar, [facility] [place] [facility] [address] [facility] [id number] [place] [address]- 4653 Mar, [facility] [place] [facility] [address] [id number] [place] [address]- 6249 Mar, [facility] [place] [facility] [address] [id number] [place] [address] 9200 28 Feb, 2012 [facility] [place] [facility] [address] [id number] [place] [address]- 3556 24 Sep2011 [facility] [place] [facility] [address] [id number] [place] [address] 7476 20 Feb, 2012 [facility] [place] [facility] [address] [id number] [place] [address]- 6649 Feb, [facility] [place] [facility] [address] [id number] [place] [address]- 4799 Jan, [facility] [place] [facility] [address] [id number] [place] [address] 1651 Jan, [facility] [place] [facility] [address] [id number] [place] [address]- 3[address] Jan, [facility] [place] [facility] [address] [id number] [place] [address]- 5177 Jan, [facility] [place] [facility] [address] [id number] [place] [address]- 6957 Jan, [facility] [place] [facility] [address] [id number] [place] [address]- 7431 Jan, [facility] [place] [facility] [address] [id number] [place] [address]- 0918 Dec, [facility] [place] [facility] [address] [id number] [place] [address]- 0088 Dec, [facility] [place] [facility] [address] [id number] [place] [address]- 3757 Dec, [facility] [place] [facility] [address] [id number] [place] [address]- 9828 Dec, [facility] [place] [facility] [address] [id number] [place] [address]- 6715 Dec, [facility] [place] [facility] [address] [id number] [place] [address]- 5262 Dec, [facility] [place] [facility] [address] [id number] [place] [address]- 8817 Dec, [facility] [place] [facility] [address] [id number] [place] [address]- 4079 Dec, [facility] [place] [facility] [address] [id number] [place] [address]- 4888 Nov, [facility] [place] [facility] [address] [id number] [place] [address]- 3438 11 Nov, 2011 [facility] [place] [facility] [address] [id number] [place] [address]- 7369 08 Nov, 2011 [facility] [place] [facility] [address] [id number] [place] [address]- 7786 07 Nov, 2011 [facility] [place] [facility] [address] [id number] [place] [address]- 8906 October, [facility] [place] [facility] [address] [id number] [place] [address]- 4546 October, [facility] [place] [facility] [address] [id number] [place] [address]- 3699 Sep, [facility] [place] [facility] [address] [id number] [place] [address]- 7976 Sep, [facility] [place] [facility] [address] [id number] [place] [address]- 3168 Aug, [facility] [place] [facility] [address] [id number] [place] [address]- 6445 16 Aug, 2011 [facility] [place] [facility] [address] [id number] [place] [address]- 8377 Aug, [facility] [place] [facility] [address] [facility] [id number] [place] [address]- 4232 Aug, [facility] [place] [facility] [address] [id number] [place] [address]- 0811 05 Aug, 2011 [facility] [place] [facility] [address] [id number] [place] [address]- 2320 08 Jul, 2011 [facility] [place] [facility] [address] [id number] [place] [address]- 0996 06 Jul, 2011 [facility] [place] [facility] [address] [id number] [place] [address]- 2546 Jul, [facility] [place] [facility] [address] [id number] [place] [address]- 3976 Jul, [facility] [address] [id number] [place] [address]- 0680 Jun, [facility] [place] [facility] [address] [id number] [place] [address]- 7316 Jun, [facility] [place] [facility] [address] [id number] [place] [address]- 7963 Jun, [facility] [place] [facility] [address] [id number] [place] [address]- 6463 Jun, [facility] [place] [facility] [address] [id number] [place] [address]- 0291 Jun, [facility] [place] [facility] [address] [id number] [place] [address]- 4128 May, [facility] [place] [facility] [address] [facility] [id number] [place] [address]- 1643 May, [facility] [place] [facility] [address] [id number], [place] [address]- 2152 May, [facility] [place] [facility] [address] [facility] [id number] [place] [address]- 6155 May, [facility] [place] [facility] [address] [facility] [id number], [place] [address]- 3879 May, [facility] [place] [facility] [address] [facility] [id number], [place] [address]- 3642 May, [facility] [place] [facility] [address] [id number], [place] [address]- 8116 Apr, [facility] [place] [facility] [address] [id number], [place] [address]- 5734 Apr, [facility] [place] [facility] [address] [id number], [place] [address]- 1020 Mar, [facility] [place] [facility] [address] [id number], [place] [address]- 7011 Mar, [facility] [place] [facility] [address] [id number], [place] [address]- 2150 October, [facility] [place] [id number], [place] [address]- 2761 May, [facility], [place] [id number], [place] [address]- 2316 Apr, [facility], [place] [id number], [place] [address]- 8086 Jul, [facility], [place] [id number] [place] [address]- 4052 May, [facility], [place] [id number] [place] [address]- 9508 May, [facility], [place] [id number] [place] [address]- 4696 May, [facility], [place] [id number] [place] [address]- 5230 Apr, [facility], [place] [id number], [place] [address]- 7925 Apr, [facility], [place] [id number] [place] [address]50- 0736 Mar, [facility], [place] [id number], [place] [address]- 1219 Jan, [facility], [place] [id number], [place] [address]- 9712 Nov, IMMUNIZATIONS No Known Immunizations SOCIAL HISTORY Never Assessed REASON FOR VISIT Requests return call PLAN OF CARE VITAL SIGNS MEDICATIONS Medication Instructions Dosage Frequency Start Date End Date Duration Status Klor-Con 10 10 MEQ Orally Once a day as needed when lasix taken 1 tablet with food 30 days Active Lasix 20 mg Orally Once a day as needed 1 tablet Aug, 30 days Active RESULTS No Results PROCEDURES No [...]
--- OUTSIDE RECORDS SUMMARY | 2018-02-19 21:25 | XMS REPORT ---
Author Author BOOGIE ARAUJO Organization [facility] Address [address] [place] [address] Care Team Providers Care [employer] Player Name Role Phone BOOGIE ARAUJO Unavailable PROBLEMS Type Condition ICD9-CM Code NBH62-XP Code Onset Dates Condition Status SNOMED Code Problem History of abnormal cervical Pap smear Z87.898 Active 983875494 Problem Thoracogenic scoliosis of thoracolumbar region M41.35 Active 28921786 Problem Uncontrolled type 2 diabetes mellitus without complication, without long-term current use of insulin E11.65 Active 071504770 Problem Diabetes type 2, controlled E11.9 Active 40897432 Problem Thyroid nodule E04.1 Active 536006420 Problem History of colon polyps Z86.010 Active 797122798 Problem Other iron deficiency anemia D50.8 Active 99816484 Problem Iron deficiency anemia due to chronic blood loss D50.0 Active 540008553 Problem Screening breast examination Z12.39 Active 171088420 Problem Allergic rhinitis, unspecified allergic rhinitis trigger, unspecified rhinitis seasonality J30.9 Active 63208967 Problem Controlled type 2 diabetes mellitus without complication, without long -term current use of insulin E11.9 Active 789658040 Problem Other chronic pain G89.29 Active 41652218 ALLERGIES No Information ENCOUNTERS Encounter Location Date Diagnosis [facility] [id number] [place] [address] 59822- 9865 Jan, [facility] [id number] [address] 9125 Dec, Other chronic pain G89.29 [facility] [id number] [place] [address] 02297- 9940 Dec, Diabetes type 2, controlled E11.9 [facility] [id number] [address] 6147 Nov, Other chronic pain G89.29 [facility] [id number] [address] 2315 Nov, [facility] [id number] [place] [address] 10767- 8804 Nov, [facility] [address], [place] [address] 3318 October, Diabetes type 2, controlled E11.9 and Acute cystitis without hematuria N30.00 [facility] [address] [address] 8194 October, [facility] [id number] [place] [address] 33411- 1729 October, [facility] [id number] [place] [address] 83050- 6277 October, [facility] [id number] [place] [address] 46544- 3060 October, Other chronic pain G89.29 [facility] [id number] [address] 8418 Sep, Diabetes type 2, controlled E11.9 [facility] [id number] [address]- 4783 Sep, [facility] [id number] [address]- 8021 Sep, Diabetes type 2, controlled E11.9 [facility] [id number] [address]- 2472 16 Sep, 2017 Other chronic pain G89.29 [facility] [address] [address]- 0244 13 Sep, 2017 Other iron deficiency anemia D50.8 [facility] [id number] [address]- 9382 12 Sep, 2017 Other iron deficiency anemia D50.8 [facility] [id number] [place] [address] 09644- 6518 Sep, Iron deficiency anemia due to chronic blood loss D50.0 and Dysuria R30.0 [facility] [facility] [id number] [place] [address] 66333- 7967 Sep, Dysuria R30.0 [facility] [facility] [id number] [place] [address] 43717- 9487 Sep, Iron deficiency anemia due to chronic blood loss D50.0 [facility] [id number] [place] [address] 55393- 6951 Sep, [facility] [facility] [id number] [place] [address] 58169- 0959 Sep, Controlled type 2 diabetes mellitus without complication, without long-term current use of insulin E11.9 ; Leg cramps R25.2 ; Low back pain M54.5 and Other chronic pain G89.29 [facility] [facility] [id number] [place] [address] 27596- 8146 Sep, Controlled type 2 diabetes mellitus without complication, without long-term current use of insulin E11.9 ; Low back pain M54.5 ; Other chronic pain G89.29 and Leg cramps R25.2 [facility] [id number] [place] [address] 19819- 4350 Aug, Other chronic pain G89.29 [facility] [facility] [id number] [place] [address] 06741- 7401 Jul, Other chronic pain G89.29 [facility] [id number] [place] [address] 82446- 0656 Jul, Pneumonia of left lower lobe due to infectious organism J18.1 [facility] [id number] [place] [address] 44041 -5940 Jul, Dysuria R30.0 ; Cough in adult patient R05 and Pneumonia of left lower lobe due to infectious organism J18.1 [facility] [facility] [id number] [address]- 1621 08 Jul, 2017 [facility] [address], [place] [address]- 2165 Jun, Other chronic pain G89.29 [facility] [address], [place] [address]- 6684 Jun, [facility] [id number] [place] [address] 14159- 9150 Jun, Diabetes type 2, controlled E11.9 ; Back muscle spasm M62.830 and Other chronic pain G89.29 [facility] [id number] [place] [address] 73907- 9621 Jun, Screening breast examination Z12.31 [facility] [id number] [place] [address] 23208- 0524 May, Other chronic pain G89.29 [facility] [id number] [place] [address] 49154- 4183 May, [facility] [id number] [place] [address] 61565- 2071 May, UTI (urinary tract infection) N39.0 [facility] [address], [place] [address]- 0290 04 May, 2017 Dysuria R30.0 [facility] [id number] [place] [address] 30110- 9900 04 May, 2017 Dysuria R30.0 [facility] [address], [place] [address]- 6002 04 May, 2017 Diabetes type 2, controlled E11.9 ; 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 and Other chronic pain G89.29 [facility] [address], [place] [address]- 3864 Apr, Diabetes type 2, controlled E11.9 [facility] [address], [place] [address] Mar, Paronychia of great toe, right L03.031 and Dysuria R30.0 [facility] [id number] [place] [address] 15411- 5187 09 Mar, 2017 Diabetes type 2, controlled E11.9 [facility] [id number] [place] [address] 19486- 0644 28 Feb, 2017 Diabetes type 2, controlled E11.9 [facility] [address] [place] [address] [id number] 13 Feb, 2017 Dental examination Z01.20 [facility] [id number] [place] [address] 11012- 1518 11 Feb, 2017 Diabetes type 2, controlled E11.9 [facility] [id number] [place] [address] 73950- 7517 07 Feb, 2017 Diabetes type 2, controlled E11.9 [facility] [id number] [place] [address] 98032- 9237 Jan, Diabetes type 2, controlled E11.9 [facility] [id number] [place] [address] 38548- 5721 Dec, Diabetes type 2, controlled E11.9 [facility] [id number] [place] [address] 15347- 1449 Dec, Diabetes type 2, controlled E11.9 [facility] [id number] [place] [address] 95670- 9999 Nov, Diabetes type 2, controlled E11.9 [facility] [address] [place] [address] 76680- 1078 Nov, Diabetes type 2, controlled E11.9 [facility] [id number] [place] [address] 81115- 8729 Nov, Diabetes type 2, controlled E11.9 [facility] [address] [place] [address] 36130- 8930 Nov, Diabetes type 2, controlled E11.9 [facility] [address], [place] [address]- 0992 Nov, Diabetes type 2, controlled E11.9 [facility] [address] [place] [address] 38159- 2324 Nov, Diabetes type 2, controlled E11.9 [facility] [id number] [place] [address] 82220- 9224 October, Pain in unspecified shoulder M25.519 [facility] [id number] [place] [address] 34272- 1015 October, Diabetes type 2, controlled E11.9 and Cellulitis of right lower extremity L03.115 [facility] [facility] [id number] [place] [address] 80988- 0566 October, Pain in unspecified shoulder M25.519 [place] [facility] [id number] [place] [address] 12726- 9187 Sep, Diabetes type 2, controlled E11.9 [facility] [id number] [place] [address] 52072- 4869 Aug, Pain in unspecified shoulder M25.519 [place] [facility] [id number] [place] [address] 39306- 7186 Aug, Diabetes type 2, controlled E11.9 [facility] [facility] [id number] [place] [address] 70379- 1627 Aug, Diabetes type 2, controlled E11.9 ; Dark urine R82.99 and Localized edema R60.0 [facility] [facility] [id number] [place] [address] 81861- 6286 Aug, Pain in unspecified shoulder M25.519 [facility] [id number] [place] [address] 42258- 3568 Jul, Pain in unspecified shoulder M25.519 [place] [facility] [id number] [place] [address] 99091- 6018 06 Jul, 2016 [place] [id number] [place] [address] 07080- 5819 02 Jul, 2016 Diabetes type 2, controlled E11.9 and [facility] current use of 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 Z79.891 [place] [id number] [place] [address] 05086- 3190 Jun, Diabetes type 2, controlled E11.9 [place] [address] 81675- 7597 Jun, Screening breast examination Z12.39 and Allergic rhinitis, unspecified allergic rhinitis trigger, unspecified rhinitis seasonality J30.9 [place] [address] 88922- 2664 10 Jun, 2016 Pain in unspecified shoulder M25.[address] 79601- 5659 May, [place] [address] 47239- 8851 May, Pain in unspecified shoulder M25.519 [place] [address] 22820- 9350 05 May, 2016 Thoracogenic scoliosis of thoracolumbar region M41.35 ; Low back pain M54.5 ; Other chronic pain G89.29 and Uncontrolled type 2 diabetes mellitus without complication, without long-term current use of insulin E11.65 [place] [id number] [place] [address] 51250- 7024 28 Apr, 2016 [place] [facility] [id number] [place] [address] 63613- 8253 Apr, [address] 71247- 9821 04 Apr, 2016 History of type 2 diabetes mellitus Z86.39 and Encounter for immunization Z23 [place] [id number] [place] [address] 77176- 0355 Mar, [facility] [address] [facility] [id number] [address]- 5594 Mar, [facility] [address] [place] [address]- 7803 Feb, [facility] [address] [facility] [id number] [place] [address]- 9101 Jan, [facility] [address], [place] [address]- 2404 Jan, [facility] [id number], [place] [address]- 5992 Dec, [facility] [id number], [place] [address]84 Dec, Sore throat J02.9 and Allergic rhinitis, unspecified allergic rhinitis type J30.9 [facility] [address], [place] [address]- 7401 Dec, Diabetes type 2, controlled E11.9 [facility] [id number], [place] [address]- 1627 Nov, [facility] [address] [place] [address]- 6885 Nov, [facility] [id number], [place] [address]- 5033 October, [facility] [id number], [place] [address]- 6143 October, [facility] [id number] [address]- 1089 Sep, [facility] [id number], [place] [address]- 0017 Aug, [facility] [id number] 3721 Aug, Diabetes type 2, controlled E11.9 ; UTI (urinary tract infection) N39.0 and Bacterial infection A49.9 [place] [address] [place] [address] 59386- 7221 Jul, [place] [id number] [place] [address] 75013- 1206 Jul, [place] [id number] [place] [address] 53953- 0014 Jul, Pharyngitis J02.9 and Seborrheic keratoses L82.1 [place] [id number] [place] [address] 77849- 1800 Jun, [place] [address] 82718- 6954 May, [place] [id number] [place] [address] 48081- 9193 May, Skin tags, multiple acquired L91.8 ; Seborrheic keratoses L82.1 and Diabetes type 2, controlled E11.9 [facility] [facility] [id number] [place] [address] 23739- 6512 May, Well woman exam Z01.419 ; Papanicolaou [...] Other fatigue R53.83 and Other hemorrhoids K64.8 [place] [facility] [id number] [place] [address] 75730- 6331 May, [place] [id number] [place] [address] 81303- 2706 May, [place] [id number] [place] [address] 60228- 0043 Apr, Seborrheic keratosis L82.1 and Diabetes type 2, controlled E11.9 [facility] [id number] [place] [address] 47795- 6881 Apr, Seborrheic keratosis L82.1 and Diabetes type 2, controlled E11.9 [facility] [id number] [place] [address] 35429- 5904 Mar, [facility] [address] 64397- 0607 Mar, [facility] [id number] [place] [address] 40477- 8435 Mar, Nevoid hyperpigmentation L81.9 ; Encounter for immunization Z23 ; Skin tags, multiple acquired L91.8 and Seborrheic keratoses L82.1 [facility] [id number] [place] [address] 65851- 7436 Feb, [facility] [id number] [place] [address] 76992- 8281 Feb, [facility] [id number] [place] [address] 30522- 0971 Feb, [facility] [id number] [place] [address] 18838- 4144 Feb, Diabetes 250.00 ; Tinea corporis 110.5 and Shoulder pain, left 719.41 [facility] [id number] [place] [address] 76485- 3754 Jan, [facility] [id number] [place] [address] 09687- 1582 Dec, [facility] [address] 47064- 5773 Dec, [facility] [id number] [place] [address] 22490- 7268 Dec, Seborrheic keratoses 702.19 ; Diabetes 250.00 and Hypoglycemia 251.2 [facility] [address] [id number] [place] [address]- 1801 Nov, [facility] [address] [facility] [id number] [place] [address]- 0057 Nov, Abnormal mammogram 793.80 [facility] [address] [facility] [id number] [place] [address]- 2768 October, Diabetes 250.00 and Colon polyp 211.3 [facility] [address] [id number], [place] [address]- 6732 Sep, [facility] [address] [id number] [place] [address]- 6780 Sep, [facility] [address] [facility] [id number] [place] [address]- 5607 Sep, [facility] [address] [place] [address]- 1870 Aug, [facility] [address] [id number] [place] [address]- 1441 Aug, [facility] [address] [id number] [place] [address]- 0068 Jul, [facility] [address] [facility] [id number] [place] [address]- 9594 Jul, [facility] [id number] [address]- 1619 Jun, [facility] [id number] [place] [address]- 4322 Jun, [facility] [address] [id number] [place] [address]- 9634 Jun, [facility] [address] [facility] [id number] [place] 7164 Jun, [facility] [id number] [place] [address]- 5956 Jun, [facility] [place] [facility] [address] [id number] [place] [address]- 2224 Jun, [facility] [place] [facility] [address] [id number] [place] [address]- 6606 May, [facility] [place] [facility] [address] [id number] [place] [address]- 5335 May, [facility] [place] [facility] [address] [id number] [place] [address]- 7201 Apr, [facility] [place] [facility] [address] [id number] [place] [address]- 8998 Apr, [facility] [place] [facility] [address] [id number] [place] [address]- 9850 Apr, [facility] [place] [facility] [address] [id number] [place] [address]- 0732 Apr, [facility] [place] [facility] [address] [id number] [place] [address]- 7000 Apr, [facility] [place] [facility] [address] [id number] [place] [address]- 2838 Apr, [facility] [place] [facility] [address] [id number] [place] [address]- 4985 Apr, [facility] [place] [facility] [address] [id number] [place] [address]- 1148 Apr, [facility] [place] [facility] [address] [id number] [place] [address]- 2368 Apr, [facility] [place] [facility] [address] [id number] [place] [address]- 3007 Apr, [facility] [place] [facility] [address] [id number] [place] [address]- 0255 Mar, [facility] [place] [facility] [address] [id number] [place] [address]- 5541 Mar, [facility] [place] [facility] [address] [id number] [place] [address]- 2342 Mar, [facility] [place] [facility] [address] [id number] [place] [address]- 9564 Mar, [facility] [place] [facility] [address] [id number] [place] [address]- 2597 Mar, [facility] [place] [facility] [address] [id number] [place] [address]- 1688 Mar, [facility] [place] [facility] [address] [id number] [place] [address]- 2485 Mar, [facility] [place] [facility] [address] [id number] [place] [address]- 6779 Mar, [facility] [place] [facility] [address] [id number] [place] [address]- 9795 Feb, [facility] [place] [facility] [address] [id number] [place] [address]- 3946 Feb, [facility] [place] [facility] [address] [id number] [place] [address]- 7805 Feb, [facility] [place] [facility] [address] [id number] [place] [address]- 4153 Feb, [facility] [place] [facility] [address] [id number] [place] [address]- 3548 Jan, [facility] [place] [facility] [address] [id number] [place] [address]- 4968 Jan, [facility] [place] [facility] [address] [id number], [place] [address]- 3223 Dec, [facility] [place] [facility] [address] [id number] [place] [address]- 1400 Dec, [facility] [place] [facility] [address] [id number], [place] [address]- 7842 Nov, [facility] [place] [facility] [address] [id number] [place] [address]- 7498 Nov, [facility] [place] [facility] [address] [id number] [place] [address]- 5359 Nov, [facility] [place] [facility] [address] [id number] [place] [address]- 2974 Nov, [facility] [place] [facility] [address] [id number] [place] [address]- 8145 October, [facility] [place] [facility] [address] [id number] [place] [address] October, [facility] [place] [facility] [address] [id number] [place] [address] October, [facility] [place] [facility] [address] [id number] [place] [address] October, [facility] [place] [facility] [address] [id number] [place] [address] October, [facility] [place] [facility] [address] [id number] [place] [address] October, [facility] [place] [facility] [address] [id number] [place] [address] October, [facility] [place] [facility] [address] [id number] [place] [address] October, [facility] [place] [facility] [address] [id number] [place] [address] Aug, [facility] [place] [facility] [address] [id number] [place] [address] Aug, [facility] [place] [facility] [address] [id number] [place] [address] Jul, [facility] [place] [facility] [address] [id number] [place] [address] Jul, [facility] [place] [facility] [address] [id number] [place] [address] Jul, [facility] [place] [facility] [address] [id number] [place] [address] Jul, [facility] [place] [facility] [address] [id number] [place] [address] Jul, [facility] [place] [facility] [address] [id number] [place] [address] Jun, [facility] [place] [facility] [address] [id number] [place] [address]- [address] Jun, [facility] [place] [facility] [address] [id number] [place] [address] May, [facility] [place] [facility] [address] [id number] [place] [address] May, [facility] [place] [facility] [address] [id number] [place] [address] Apr, [facility] [place] [facility] [address] [id number] [place] [address] Apr, [facility] [place] [facility] [address] [id number], [place] [address] Mar, [facility] [place] [facility] [address] [id number] [place] [address] Mar, [facility] [place] [facility] [address] [id number], [place] [address] Mar, [facility] [place] [facility] [address] [id number], [place] [address] Feb, [facility] [place] [facility] [address] [id number], [place] [address] 20 Feb, 2013 [facility] [place] [facility] [address] [id number] [place] [address] 17 Feb, 2013 [facility] [place] [facility] [address] [id number], [place] [address] 04 Feb, 2013 [facility] [place] [facility] [address] [id number], [place] [address] 04 Feb, 2013 [facility] [place] [facility] [address] [id number], [place] [address] Jan, [facility] [address] [id number] [place] [address] Dec, [facility] [place] [facility] [address] [id number] [place] [address] Nov, [facility] [place] [facility] [address] [id number] [place] [address] October, [facility] [place] [facility] [address] [id number] [place] [address] Sep, [facility] [place] [facility] [address] [id number] [place] [address] Aug, [facility] [place] [facility] [address] [id number] [place] [address] Aug, [facility] [address] [id number] [place] [place] [address] Aug, [facility] [place] [facility] [address] [id number] [place] [address] May, [facility] [address] [id number] [place] [address] May, [facility] [place] [facility] [address] [facility] [id number] [place] [address] May, [facility] [place] [facility] [address] [id number] [place] [address] May, [facility] [place] [facility] [address] [id number] [place] [address] 11 May, 2012 [facility] [place] [facility] [address] [id number] [place] [address]60 16 Apr, 2012 [facility] [place] [facility] [address] [id number] [place] [address]99 16 Apr, 2012 [facility] [place] [facility] [address] [facility] [id number] [place] [address] 14 Apr, 2012 [facility] [place] [facility] [address] [id number] [place] [address] 14 Apr, 2012 [facility] [place] [facility] [address] [id number] [place] [address] 1768 07 Apr, 2012 [facility] [place] [facility] [address] [id number] [place] [address] 74[address] Apr, [facility] [place] [facility] [address] [id number] [place] [address] 37[address] Apr, [facility] [place] [facility] [address] [id number] [place] [address] Apr, [facility] [place] [facility] [address] [id number] [place] [address] Mar, [facility] [place] [facility] [address] [id number] [place] [address] Mar, [facility] [place] [facility] [address] [id number] [place] [address]277 Mar, [facility] [place] [facility] [address] [id number] [place] [address]- [address] Mar, [facility] [place] [facility] [address] [id number] [place] [address] 38[address] Mar, [facility] [place] [facility] [address] [facility] [id number] [place] [address] 87[address] Mar, [facility] [place] [facility] [address] [id number] [place] [address] 9411 Mar, [facility] [place] [facility] [address] [id number] [place] [address] 28 Feb, 2012 [facility] [place] [facility] [address] [id number] [place] [address]26 24 Sep2011 [facility] [place] [facility] [address] [id number] [place] [address]686 20 Feb, 2012 [facility] [place] [facility] [address] [id number] [place] [address] Feb, [facility] [place] [facility] [address] [id number] [place] [address] 94[address] Jan, [facility] [place] [facility] [address] [id number] [place] [address] Jan, [facility] [place] [facility] [address] [id number] [place] [address]295 Jan, [facility] [place] [facility] [address] [id number] [place] [address] 67[address] Jan, [facility] [place] [facility] [address] [id number] [place] [address] 9178 Jan, [facility] [place] [facility] [address] [id number] [place] [address]- 0753 Jan, [facility] [place] [facility] [address] [id number] [place] [address] 9[address] Dec, [facility] [place] [facility] [address] [id number] [place] [address]- 4679 Dec, [facility] [place] [facility] [address] [id number] [place] [address] 9[address] Dec, [facility] [place] [facility] [address] [id number] [place] [address] 12[address] Dec, [facility] [place] [facility] [address] [id number] [place] [address] 6[address] Dec, [facility] [place] [facility] [address] [id number] [place] [address] 9[address] Dec, [facility] [place] [facility] [address] [id number] [place] [address] 3084 Dec, [facility] [place] [facility] [address] [id number] [place] [address]256 Dec, [facility] [place] [facility] [address] [id number] [place] [address]20 Nov, [facility] [place] [facility] [address] [id number] [place] [address]- 6393 11 Nov, 2011 [facility] [place] [facility] [address] [id number] [place] [address] 08 Nov, 2011 [facility] [place] [facility] [address] [id number] [place] [address]- 8426 07 Nov, 2011 [facility] [place] [facility] [address] [id number] [place] [address] 4096 October, [facility] [place] [facility] [address] [id number] [place] [address]- 1176 October, [facility] [place] [facility] [address] [id number] [place] [address] 6[address] Sep, [facility] [place] [facility] [address] [id number] [place] [address] Sep, [facility] [place] [facility] [address] [id number] [place] [address] Aug, [facility] [place] [facility] [address] [id number] [place] [address]- 0474 16 Aug, 2011 [facility] [place] [facility] [address] [id number] [place] [address]- 7518 Aug, [facility] [place] [facility] [address] [facility] [id number] [place] [address]- 2063 Aug, [facility] [place] [facility] [address] [id number] [place] [address]- 2893 05 Aug, 2011 [facility] [place] [facility] [address] [id number] [place] [address]- 6176 08 Jul, 2011 [facility] [place] [facility] [address] [id number] [place] [address]- 6356 06 Jul, 2011 [facility] [place] [facility] [address] [id number] [place] [address]- 2546 Jul, [facility] [place] [facility] [address] [id number] [place] [address]- 9266 Jul, [facility] [address] [id number] [place] [address]- 9966 Jun, [facility] [place] [facility] [address] [id number] [place] [address]- 6609 Jun, [facility] [place] [facility] [address] [id number] [place] [address]- 0994 Jun, [facility] [place] [facility] [address] [id number] [place] [address]- 5885 Jun, [facility] [place] [facility] [address] [id number] [place] [address]- 1229 Jun, [facility] [place] [facility] [address] [id number] [place] [address]- 9979 May, [facility] [place] [facility] [address] [facility] [id number] [place] [address]- 8101 May, [facility] [place] [facility] [address] [id number], [place] [address] 1411 May, [facility] [place] [facility] [address] [facility] [id number] [place] [address]- 4830 May, [facility] [place] [facility] [address] [facility] [id number], [place] [address]- [address] May, [facility] [place] [facility] [address] [facility] [id number], [place] [address]- [address]25 May, [facility] [place] [facility] [address] [id number], [place] [address]- 59[address] Apr, [facility] [place] [facility] [address] [id number], [place] [address]- 8[address] Apr, [facility] [place] [facility] [address] [id number], [place] [address]- 2417 Mar, [facility] [place] [facility] [address] [id number], [place] [address]- 6590 Mar, [facility] [place] [facility] [address] [id number], [place] [address]- 49[address] October, [facility] [id number] [address] May, [facility] [id number], [place] [address] Apr, [facility] [id number], [place] [address]141 Jul, [facility] [id number], [place] [address] May, [facility] [id number] [place] [address]- [address]881 May, [facility] [id number] [place] [address]- 5658 May, [facility] [id number] [place] [address]- 2918 Apr, [facility] [id number], [place] [address]- 6386 Apr, [facility] [id number], [place] [address]- 0471 Mar, [facility] [id number], [place] [address]- 9544 Jan, [facility] [id number], [place] [address]97 Nov, IMMUNIZATIONS No Known Immunizations SOCIAL HISTORY Never Assessed REASON FOR VISIT severe anemia PLAN OF CARE VITAL SIGNS MEDICATIONS Unknown [...]
--- OUTSIDE RECORDS SUMMARY | 2018-02-19 21:25 | XMS REPORT ---
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 Name Role Phone BOOGIE ARAUJO Unavailable PROBLEMS Type Condition ICD9-CM Code SJP90-LP Code Onset Dates Condition Status SNOMED Code Problem History of abnormal cervical Pap smear Z87.898 Active 573543286 Problem Thoracogenic scoliosis of thoracolumbar region M41.35 Active 02037712 Problem Uncontrolled type 2 diabetes mellitus without complication, without long-term current use of insulin E11.65 Active 245296214 Problem Diabetes type 2, controlled E11.9 Active 69475281 Problem Thyroid nodule E04.1 Active 860930538 Problem History of colon polyps Z86.010 Active 679250663 Problem Other iron deficiency anemia D50.8 Active 94015022 Problem Iron deficiency anemia due to chronic blood loss D50.0 Active 508385662 Problem Screening breast examination Z12.39 Active 631090765 Problem Allergic rhinitis, unspecified allergic rhinitis trigger, unspecified rhinitis seasonality J30.9 Active 49015497 Problem Controlled type 2 diabetes mellitus without complication, without long -term current use of insulin E11.9 Active 555722276 Problem Other chronic pain G89.29 Active 75561634 ALLERGIES No Information ENCOUNTERS Encounter Location Date Diagnosis [facility] [id number] [place] [address] 82385- 5904 Jan, [facility] [id number], [place] [address] 6171 Dec, Other chronic pain G89.29 [facility] [id number] [place] [address] 72209- 7449 Dec, Diabetes type 2, controlled E11.9 [facility] [id number], [place] [address] 6707 Nov, Other chronic pain G89.29 [facility] [id number], [place] [address] 2475 Nov, [facility] [id number] [place] [address] 56869- 5432 Nov, [facility] [address], [place] [address] 6120 October, Diabetes type 2, controlled E11.9 and Acute cystitis without hematuria N30.00 [facility] [address], [place] [address] 4078 October, [facility] [id number] [place] [address] 22461- 2932 October, [facility] [id number] [place] [address] 81776- 0384 October, [facility] [id number] [place] [address] 79483- 2993 October, Other chronic pain G89.29 [facility] [address], [place] [address]- 2928 Sep, Diabetes type 2, controlled E11.9 [facility] [address], [place] [address] 5349 Sep, [facility] [address], [place] [address]- 3459 Sep, Diabetes type 2, controlled E11.9 [facility] [address], [place] [address]- 9107 16 Sep, 2017 Other chronic pain G89.29 [facility] [address], [place] [address]- 1428 13 Sep, 2017 Other iron deficiency anemia D50.8 [facility] [address], [place] [address]- 8573 12 Sep, 2017 Other iron deficiency anemia D50.8 [facility] [address] [place] [address] 13017- 0234 Sep, Iron deficiency anemia due to chronic blood loss D50.0 and Dysuria R30.0 [facility] [facility] [address] [place] [address] 70082- 1621 Sep, Dysuria R30.0 [facility] [id number] [place] [address] 30536- 9935 Sep, Iron deficiency anemia due to chronic blood loss D50.0 [facility] [address] [place] [address] 34444- 8060 Sep, [facility] [address] [place] [address] 84617- 9219 Sep, Controlled type 2 diabetes mellitus without complication, without long-term current use of insulin E11.9 ; Leg cramps R25.2 ; Low back pain M54.5 and Other chronic pain G89.29 [facility] [place] [address] [place] [address] 73655- 4698 Sep, Controlled type 2 diabetes mellitus without complication, without long-term current use of insulin E11.9 ; Low back pain M54.5 ; Other chronic pain G89.29 and Leg cramps R25.2 [facility] [address] [place] [address] 58385- 3707 Aug, Other chronic pain G89.29 [facility] [place] [address] [place] [address] 14848- 5673 Jul, Other chronic pain G89.29 [facility] [place] [address] [place] [address] 74001- 8230 Jul, Pneumonia of left lower lobe due to infectious organism J18.1 [facility] [address] [place] [address] 72608 -8080 Jul, Dysuria R30.0 ; Cough in adult patient R05 and Pneumonia of left lower lobe due to infectious organism J18.1 [facility] [id number], [place] [address]- 7479 08 Jul, 2017 [facility] [address], [place] [address]- 6730 Jun, Other chronic pain G89.29 [facility] [address], [place] [address]- 7376 Jun, [facility] [address] [place] [address] 98531- 5878 Jun, Diabetes type 2, controlled E11.9 ; Back muscle spasm M62.830 and Other chronic pain G89.29 [facility] [id number] [place] [address] 64050- 1777 Jun, Screening breast examination Z12.31 [facility] [address] [place] [address] 35371- 5760 May, Other chronic pain G89.29 [facility] [address] [place] [address] 99044- 1393 May, [facility] [address] [place] [address] 64628- 0161 May, UTI (urinary tract infection) N39.0 [facility] [address], [place] [address]- 5072 04 May, 2017 Dysuria R30.0 [facility] [address] [place] [address] 55945- 8666 04 May, 2017 Dysuria R30.0 [facility] [address], [place] [address]- 8526 04 May, 2017 Diabetes type 2, controlled E11.9 ; 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 and Other chronic pain G89.29 [facility] [address], [place] [address]- 6317 Apr, Diabetes type 2, controlled E11.9 [facility] [address], [place] [address] Mar, Paronychia of great toe, right L03.031 and Dysuria R30.0 [facility] [id number] [place] [address] 58988- 3518 09 Mar, 2017 Diabetes type 2, controlled E11.9 [facility] [address] [place] [address] 79989- 4738 28 Feb, 2017 Diabetes type 2, controlled E11.9 [facility] [address] [place] [address] [id number] 13 Feb, 2017 Dental examination Z01.20 [facility] [id number] [place] [address] 94972- 5382 11 Feb, 2017 Diabetes type 2, controlled E11.9 [facility] [id number] [place] [address] 69953- 3929 07 Feb, 2017 Diabetes type 2, controlled E11.9 [facility] [id number] [place] [address] 55510- 6696 Jan, Diabetes type 2, controlled E11.9 [facility] [id number] [place] [address] 89913- 4137 Dec, Diabetes type 2, controlled E11.9 [facility] [id number] [place] [address] 84408- 7889 Dec, Diabetes type 2, controlled E11.9 [facility] [id number] [place] [address] 39070- 6960 Nov, Diabetes type 2, controlled E11.9 [facility] [address] [place] [address] 57771- 2708 Nov, Diabetes type 2, controlled E11.9 [facility] [id number] [place] [address] 58150- 0504 Nov, Diabetes type 2, controlled E11.9 [facility] [address] [place] [address] 92088- 9415 Nov, Diabetes type 2, controlled E11.9 [facility] [address], [place] [address]- 1300 Nov, Diabetes type 2, controlled E11.9 [facility] [address] [place] [address] 51172- 8513 Nov, Diabetes type 2, controlled E11.9 [facility] [id number] [place] [address] 57157- 3711 October, Pain in unspecified shoulder M25.519 [facility] [id number] [place] [address] 69549- 7052 October, Diabetes type 2, controlled E11.9 and Cellulitis of right lower extremity L03.115 [facility] [id number] [place] [address] 32598- 9154 October, Pain in unspecified shoulder M25.519 [place] [id number] [place] [address] 11268- 0931 Sep, Diabetes type 2, controlled E11.9 [facility] [id number] [place] [address] 33496- 9755 Aug, Pain in unspecified shoulder M25.519 [place] [id number] [place] [address] 60823- 2838 Aug, Diabetes type 2, controlled E11.9 [facility] [facility] [id number] [place] [address] 07348- 6511 Aug, Diabetes type 2, controlled E11.9 ; Dark urine R82.99 and Localized edema R60.0 [place] [id number] [place] [address] 41246- 4963 Aug, Pain in unspecified shoulder M25.519 [facility] [id number] [place] [address] 05038- 1912 Jul, Pain in unspecified shoulder M25.519 [place] [id number] [place] [address] 19148- 1080 06 Jul, 2016 [place] [id number] [place] [address] 64425- 2181 02 Jul, 2016 Diabetes type 2, controlled E11.9 and 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 [place] [id number] [place] [address] 98328- 3969 Jun, Diabetes type 2, controlled E11.9 [place] [address] 42307- 1410 Jun, Screening breast examination Z12.39 and Allergic rhinitis, unspecified allergic rhinitis trigger, unspecified rhinitis seasonality J30.9 [place] [address] 34388- 0655 10 Jun, 2016 Pain in unspecified shoulder M25.[address] 83236- 1346 May, [place] [address] 83322- 5547 May, Pain in unspecified shoulder M25.519 [place] [address] 23157- 8732 05 May, 2016 Thoracogenic scoliosis of thoracolumbar region M41.35 ; Low back pain M54.5 ; Other chronic pain G89.29 and Uncontrolled type 2 diabetes mellitus without complication, without long-term current use of insulin E11.65 [place] [id number] [place] [address] 51274- 5697 28 Apr, 2016 [place] [id number] [place] [address] 65969- 3247 Apr, [address] 71767- 1722 04 Apr, 2016 History of type 2 diabetes mellitus Z86.39 and Encounter for immunization Z23 [place] [id number] [place] [address] 34718- 9746 Mar, [facility] [address] [facility] [id number] [address]- 5885 Mar, [facility] [address] [place] [address]- 3717 Feb, [facility] [address] [facility] [id number] [place] [address]- 3986 Jan, [facility] [address], [place] [address]- 0564 Jan, [facility] [id number], [place] [address]- 1865 Dec, [facility] [id number], [place] [address] -5192 Dec, Sore throat J02.9 and Allergic rhinitis, unspecified allergic rhinitis type J30.9 [facility] [address], [place] [address]- 5637 Dec, Diabetes type 2, controlled E11.9 [facility] [id number], [place] [address]- 3290 Nov, [facility] [address] [place] [address]- 2068 Nov, [facility] [id number], [place] [address]- 7261 October, [facility] [id number], [place] [address]- 9150 October, [facility] [id number], [place] [address]- 1972 Sep, [facility] [id number], [place] [address]- 9638 Aug, [facility] [id number] 9825 Aug, Diabetes type 2, controlled E11.9 ; UTI (urinary tract infection) N39.0 and Bacterial infection A49.9 [place] [address] [place] [address] 33244- 2865 Jul, [place] [id number] [place] [address] 48334- 3350 Jul, [place] [id number] [place] [address] 29676- 6828 Jul, Pharyngitis J02.9 and Seborrheic keratoses L82.1 [place] [id number] [place] [address] 55427- 0951 Jun, [place] [address] 06678- 1144 May, [place] [id number] [place] [address] 51833- 9489 May, Skin tags, multiple acquired L91.8 ; Seborrheic keratoses L82.1 and Diabetes type 2, controlled E11.9 [place] [id number] [place] [address] 02406- 0925 May, Well woman exam Z01.419 ; Papanicolaou [...] Other fatigue R53.83 and Other hemorrhoids K64.8 [place] [id number] [place] [address] 42530- 9425 May, [place] [id number] [place] [address] 72859- 5780 May, [place] [id number] [place] [address] 72812- 8448 Apr, Seborrheic keratosis L82.1 and Diabetes type 2, controlled E11.9 [facility] [id number] [place] [address] 04827- 9763 Apr, Seborrheic keratosis L82.1 and Diabetes type 2, controlled E11.9 [facility] [id number] [place] [address] 43063- 0520 Mar, [facility] [address] 29310- 5308 Mar, [facility] [id number] [place] [address] 63125- 0197 Mar, Nevoid hyperpigmentation L81.9 ; Encounter for immunization Z23 ; Skin tags, multiple acquired L91.8 and Seborrheic keratoses L82.1 [facility] [id number] [place] [address] 47584- 8197 Feb, [facility] [id number] [place] [address] 70436- 1205 Feb, [facility] [id number] [place] [address] 69094- 6039 Feb, [facility] [id number] [place] [address] 20035- 3033 Feb, Diabetes 250.00 ; Tinea corporis 110.5 and Shoulder pain, left 719.41 [facility] [id number] [place] [address] 56524- 8438 Jan, [facility] [id number] [place] [address] 24093- 9487 Dec, [facility] [address] 10884- 8627 Dec, [facility] [id number] [place] [address] 31796- 9230 Dec, Seborrheic keratoses 702.19 ; Diabetes 250.00 and Hypoglycemia 251.2 [facility] [address] [id number] [place] [address]- 3195 Nov, [facility] [address] [facility] [id number] [place] [address]- 3809 Nov, Abnormal mammogram 793.80 [facility] [address] [facility] [id number] [place] [address]- 7754 October, Diabetes 250.00 and Colon polyp 211.3 [facility] [address] [id number], [place] [address]- 8245 Sep, [facility] [address] [id number] [place] [address]- 5415 Sep, [facility] [address] [facility] [id number] [place] [address]- 4236 Sep, [facility] [address] [place] [address]- 9027 Aug, [facility] [address] [id number] [place] [address]- 3857 Aug, [facility] [address] [id number] [place] [address]- 5649 Jul, [facility] [address] [facility] [id number] [place] [address]- 8149 Jul, [facility] [id number], [place] [address]- 3744 Jun, [facility] [id number] [place] [address]- 2270 Jun, [facility] [address] [id number] [place] [address]- 1478 Jun, [facility] [address] [facility] [id number] [place] 0918 Jun, [facility] [id number] [place] [address]- 6226 Jun, [facility] [place] [facility] [address] [id number] [place] [address]- 3024 Jun, [facility] [place] [facility] [address] [id number] [place] [address]- 2749 May, [facility] [place] [facility] [address] [id number] [place] [address]- 0826 May, [facility] [place] [facility] [address] [id number] [place] [address]- 6976 Apr, [facility] [place] [facility] [address] [id number] [place] [address]- 8047 Apr, [facility] [place] [facility] [address] [id number] [place] [address]- 2093 Apr, [facility] [place] [facility] [address] [id number] [place] [address]- 9531 Apr, [facility] [place] [facility] [address] [id number] [place] [address]- 3268 Apr, [facility] [place] [facility] [address] [id number] [place] [address]- 3843 Apr, [facility] [place] [facility] [address] [id number] [place] [address]- 9053 Apr, [facility] [place] [facility] [address] [id number] [place] [address]- 0482 Apr, [facility] [place] [facility] [address] [id number] [place] [address]- 4456 Apr, [facility] [place] [facility] [address] [id number] [place] [address]- 6280 Apr, [facility] [place] [facility] [address] [id number] [place] [address]- 5559 Mar, [facility] [place] [facility] [address] [id number] [place] [address]- 9589 Mar, [facility] [place] [facility] [address] [id number] [place] [address]- 7618 Mar, [facility] [place] [facility] [address] [id number] [place] [address]- 3562 Mar, [facility] [place] [facility] [address] [id number] [place] [address]- 9974 Mar, [facility] [place] [facility] [address] [id number] [place] [address]- 3896 Mar, [facility] [place] [facility] [address] [id number] [place] [address]- 4356 Mar, [facility] [place] [facility] [address] [id number] [place] [address]- 4952 Mar, [facility] [place] [facility] [address] [id number] [place] [address]- 5653 Feb, [facility] [place] [facility] [address] [id number] [place] [address]- 5756 Feb, [facility] [place] [facility] [address] [id number] [place] [address]- 8491 Feb, [facility] [place] [facility] [address] [id number] [place] [address]- 5246 Feb, [facility] [place] [facility] [address] [id number] [place] [address]- 9282 Jan, [facility] [place] [facility] [address] [id number] [place] [address]- 0606 Jan, [facility] [place] [facility] [address] [id number], [place] [address]- 0615 Dec, [facility] [place] [facility] [address] [id number] [place] [address]- 5710 Dec, [facility] [place] [facility] [address] [id number], [place] [address]- 1318 Nov, [facility] [place] [facility] [address] [id number] [place] [address] Nov, [facility] [place] [facility] [address] [id number] [place] [address] Nov, [facility] [place] [facility] [address] [id number] [place] [address] Nov, [facility] [place] [facility] [address] [id number] [place] [address] October, [facility] [place] [facility] [address] [id number] [place] [address] October, [facility] [place] [facility] [address] [id number] [place] [address] October, [facility] [place] [facility] [address] [id number] [place] [address] October, [facility] [place] [facility] [address] [id number] [place] [address] October, [facility] [place] [facility] [address] [id number] [place] [address] October, [facility] [place] [facility] [address] [id number] [place] [address] October, [facility] [place] [facility] [address] [id number] [place] [address] October, [facility] [place] [facility] [address] [id number] [place] [address] Aug, [facility] [place] [facility] [address] [id number] [place] [address] Aug, [facility] [place] [facility] [address] [id number] [place] [address] Jul, [facility] [place] [facility] [address] [id number] [place] [address] Jul, [facility] [place] [facility] [address] [id number] [place] [address] Jul, [facility] [place] [facility] [address] [id number] [place] [address] Jul, [facility] [place] [facility] [address] [id number] [place] [address] Jul, [facility] [place] [facility] [address] [id number] [place] [address] Jun, [facility] [place] [facility] [address] [id number] [place] [address] Jun, [facility] [place] [facility] [address] [id number] [place] [address] May, [facility] [place] [facility] [address] [id number] [place] [address] May, [facility] [place] [facility] [address] [id number] [place] [address] Apr, [facility] [place] [facility] [address] [id number] [place] [address] Apr, [facility] [place] [facility] [address] [id number], [place] [address] Mar, [facility] [place] [facility] [address] [id number] [place] [address] Mar, [facility] [place] [facility] [address] [id number], [place] [address] Mar, [facility] [place] [facility] [address] [id number], [place] [address] Feb, [facility] [place] [facility] [address] [id number], [place] [address] 20 Feb, 2013 [facility] [place] [facility] [address] [id number] [place] [address] 17 Feb, 2013 [facility] [place] [facility] [address] [id number], [place] [address] 04 Feb, 2013 [facility] [place] [facility] [address] [id number] [address] 04 Feb, 2013 [facility] [place] [facility] [address] [id number], [place] [address] Jan, [facility] [address] [id number] [place] [address] Dec, [facility] [place] [facility] [address] [id number] [place] [address] Nov, [facility] [place] [facility] [address] [id number] [place] [address] October, [facility] [place] [facility] [address] [id number] [place] [address] Sep, [facility] [place] [facility] [address] [id number] [place] [address] Aug, [facility] [place] [facility] [address] [id number] [place] [address] Aug, [facility] [address] [id number] [place] [address] Aug, [facility] [place] [facility] [address] [id number] [place] [address] May, [facility] [address] [id number] [place] [address] May, [facility] [place] [facility] [address] [facility] [id number] [place] [address] May, [facility] [place] [facility] [address] [id number] [place] [address]- [address] May, [facility] [place] [facility] [address] [id number] [place] [address] 11 May, 2012 [facility] [place] [facility] [address] [id number] [place] [address] 16 Apr, 2012 [facility] [place] [facility] [address] [id number] [place] [address]279 16 Apr, 2012 [facility] [place] [facility] [address] [facility] [id number] [place] [address] 14 Apr, 2012 [facility] [place] [facility] [address] [id number] [place] [address] 14 Apr, 2012 [facility] [place] [facility] [address] [id number] [place] [address] 07 Apr, 2012 [facility] [place] [facility] [address] [id number] [place] [address] Apr, [facility] [place] [facility] [address] [id number] [place] [address] Apr, [facility] [place] [facility] [address] [id number] [place] [address]- 70[address] Apr, [facility] [place] [facility] [address] [id number] [place] [address] Mar, [facility] [place] [facility] [address] [id number] [place] [address] 1583 Mar, [facility] [place] [facility] [address] [id number] [place] [address] 18[address] Mar, [facility] [place] [facility] [address] [id number] [place] [address] Mar, [facility] [place] [facility] [address] [id number] [place] [address] Mar, [facility] [place] [facility] [address] [facility] [id number] [place] [address]- [address] Mar, [facility] [place] [facility] [address] [id number] [place] [address] 47[address] Mar, [facility] [place] [facility] [address] [id number] [place] [address] 28 Feb, 2012 [facility] [place] [facility] [address] [id number] [place] [address]- 9416 24 Sep2011 [facility] [place] [facility] [address] [id number] [place] [address] 20 Feb, 2012 [facility] [place] [facility] [address] [id number] [place] [address] Feb, [facility] [place] [facility] [address] [id number] [place] [address] 6568 Jan, [facility] [place] [facility] [address] [id number] [place] [address] 16[address] Jan, [facility] [place] [facility] [address] [id number] [place] [address] 98[address] Jan, [facility] [place] [facility] [address] [id number] [place] [address]- [address] Jan, [facility] [place] [facility] [address] [id number] [place] [address]- 8927 Jan, [facility] [place] [facility] [address] [id number] [place] [address] Jan, [facility] [place] [facility] [address] [id number] [place] [address] Dec, [facility] [place] [facility] [address] [id number] [place] [address]- [address] Dec, [facility] [place] [facility] [address] [id number] [place] [address]- 9867 Dec, [facility] [place] [facility] [address] [id number] [place] [address]- 0179 Dec, [facility] [place] [facility] [address] [id number] [place] [address]- 45[address] Dec, [facility] [place] [facility] [address] [id number] [place] [address]- [address]78 Dec, [facility] [place] [facility] [address] [id number] [place] [address]- 7459 Dec, [facility] [place] [facility] [address] [id number] [place] [address]- 58[address] Dec, [facility] [place] [facility] [address] [id number] [place] [address]- 8077 Nov, [facility] [place] [facility] [address] [id number] [place] [address]- 6[address] 11 Nov, 2011 [facility] [place] [facility] [address] [id number] [place] [address]- [address] 08 Nov, 2011 [facility] [place] [facility] [address] [id number] [place] [address]- [address]26 07 Nov, 2011 [facility] [place] [facility] [address] [id number] [place] [address]- 5966 October, [facility] [place] [facility] [address] [id number] [place] [address] October, [facility] [place] [facility] [address] [id number] [place] [address]- 4294 Sep, [facility] [place] [facility] [address] [id number] [place] [address]- 9036 Sep, [facility] [place] [facility] [address] [id number] [place] [address]- [address] Aug, [facility] [place] [facility] [address] [id number] [place] [address] 44[address] 16 Aug, 2011 [facility] [place] [facility] [address] [id number] [place] [address] 1385 Aug, [facility] [place] [facility] [address] [facility] [id number] [place] [address]- 4790 Aug, [facility] [place] [facility] [address] [id number] [place] [address]- 0729 05 Aug, 2011 [facility] [place] [facility] [address] [id number] [place] [address]- [address]37 08 Jul, 2011 [facility] [place] [facility] [address] [id number] [place] [address]- [address] 06 Jul, 2011 [facility] [place] [facility] [address] [id number] [place] [address]- 2546 Jul, [facility] [place] [facility] [address] [id number] [place] [address]- 7926 Jul, [facility] [address] [id number] [place] [address]- 8821 Jun, [facility] [place] [facility] [address] [id number] [place] [address]- 1083 Jun, [facility] [place] [facility] [address] [id number] [place] [address]- 0859 Jun, [facility] [place] [facility] [address] [id number] [place] [address]- 7187 Jun, [facility] [place] [facility] [address] [id number] [place] [address]- 9206 Jun, [facility] [place] [facility] [address] [id number] [place] [address]- 8157 May, [facility] [place] [facility] [address] [facility] [id number] [place] [address]- 9352 May, [facility] [place] [facility] [address] [id number], [place] [address]- 112[address] May, [facility] [place] [facility] [address] [facility] [id number] [place] [address]- 9862 May, [facility] [place] [facility] [address] [facility] [id number], [place] [address]- 8[address] May, [facility] [place] [facility] [address] [facility] [id number], [place] [address] 3832 May, [facility] [place] [facility] [address] [id number], [place] [address]- 5468 Apr, [facility] [place] [facility] [address] [id number], [place] [address]- 9258 Apr, [facility] [place] [facility] [address] [id number], [place] [address]- 9[address] Mar, [facility] [place] [facility] [address] [id number], [place] [address]- 99[address] Mar, [facility] [place] [facility] [address] [id number], [place] [address]- 4[address] October, [facility] [id number], [place] [address] May, [facility] [id number], [place] [address]89 Apr, [facility] [id number], [place] [address] Jul, [facility] [id number] [place] [address]- 6534 May, [facility] [id number] [place] [address]- 4974 May, [facility] [id number] [place] [address]- 2600 May, [facility] [id number] [place] [address]- 5317 Apr, [facility] [id number], [place] [address]- 6[address] Apr, [facility] [id number] [place] [address]- 0284 Mar, [facility] [id number], [place] [address]- 6332 Jan, [facility] [id number], [place] [address] Nov, IMMUNIZATIONS No Known Immunizations SOCIAL HISTORY Never Assessed REASON FOR VISIT Controlled Med Refill PLAN OF CARE VITAL SIGNS MEDICATIONS Medication Instructions Dosage Frequency Start Date End Date Duration Status [place] 7.5-325 MG Orally 3 times a day 1 tablet as needed 8h Sep, 28 days Active RESULTS No Results PROCEDURES [...]
--- OUTSIDE RECORDS SUMMARY | 2018-02-19 21:26 | XMS REPORT ---
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 Role Phone BOOGIE ARAUJO Unavailable PROBLEMS Type Condition ICD9-CM Code YTB46-VA Code Onset Dates Condition Status SNOMED Code Problem History of abnormal cervical Pap smear Z87.898 Active 570248915 Problem Thoracogenic scoliosis of thoracolumbar region M41.35 Active 32576655 Problem Uncontrolled type 2 diabetes mellitus without complication, without long-term current use of insulin E11.65 Active 817200836 Problem Diabetes type 2, controlled E11.9 Active 67482130 Problem Thyroid nodule E04.1 Active 085323519 Problem History of colon polyps Z86.010 Active 539499306 Problem Other iron deficiency anemia D50.8 Active 12938347 Problem Iron deficiency anemia due to chronic blood loss D50.0 Active 152111076 Problem Screening breast examination Z12.39 Active 934249300 Problem Allergic rhinitis, unspecified allergic rhinitis trigger, unspecified rhinitis seasonality J30.9 Active 12413298 Problem Controlled type 2 diabetes mellitus without complication, without long -term current use of insulin E11.9 Active 525507094 Problem Other chronic pain G89.29 Active 47151941 ALLERGIES No Information ENCOUNTERS Encounter Location Date Diagnosis [facility] [id number] [place] [address] 25048- 7629 Jan, [facility] [id number] [address] 7899 Dec, Other chronic pain G89.29 [facility] [id number] [place] [address] 47681- 2220 Dec, Diabetes type 2, controlled E11.9 [facility] [id number] [address] 7536 Nov, Other chronic pain G89.29 [facility] [id number] [address] 2329 Nov, [facility] [id number] [place] [address] 10683- 3794 Nov, [facility] [address] [address] 6133 October, Diabetes type 2, controlled E11.9 and Acute cystitis without hematuria N30.00 [facility] [address] [address] 5237 October, [facility] [id number] [place] [address] 94751- 1283 October, [facility] [id number] [place] [address] 28024- 2798 October, [facility] [id number] [place] [address] 40295- 1951 October, Other chronic pain G89.29 [facility] [address] [address] 1634 Sep, Diabetes type 2, controlled E11.9 [facility] [address] [address]- 7875 Sep, [facility] [address] [address]- 0089 Sep, Diabetes type 2, controlled E11.9 [facility] [address] [address]- 9479 16 Sep, 2017 Other chronic pain G89.29 [facility] [address] [address] 3021 13 Sep, 2017 Other iron deficiency anemia D50.8 [facility] [address] [address]- 6163 12 Sep, 2017 Other iron deficiency anemia D50.8 [facility] [id number] [place] [address] 30854- 6819 Sep, Iron deficiency anemia due to chronic blood loss D50.0 and Dysuria R30.0 [facility] [id number] [place] [address] 72986- 6205 Sep, Dysuria R30.0 [facility] [id number] [place] [address] 71025- 7796 Sep, Iron deficiency anemia due to chronic blood loss D50.0 [facility] [id number] [place] [address] 79781- 9026 Sep, [place] [address] [place] [address] 91449- 7283 Sep, Controlled type 2 diabetes mellitus without complication, without long-term current use of insulin E11.9 ; Leg cramps R25.2 ; Low back pain M54.5 and Other chronic pain G89.29 [place] [facility] [address] [place] [address] 26563- 1869 Sep, Controlled type 2 diabetes mellitus without complication, without long-term current use of insulin E11.9 ; Low back pain M54.5 ; Other chronic pain G89.29 and Leg cramps R25.2 [place] [address] [place] [address] 25992- 1121 Aug, Other chronic pain G89.29 [facility] [id number] [place] [address] 39477- 4491 Jul, Other chronic pain G89.29 [place] [id number] [place] [address] 45725- 1916 Jul, Pneumonia of left lower lobe due to infectious organism J18.1 [facility] [id number] [place] [address] 94854 -2105 Jul, Dysuria R30.0 ; Cough in adult patient R05 and Pneumonia of left lower lobe due to infectious organism J18.1 [place] [facility] [id number] [address]- 9036 08 Jul, 2017 [facility] [address] [address]- 1064 Jun, Other chronic pain G89.29 [facility] [address] [address]- 6919 Jun, [facility] [address] [place] [address] 51452- 0418 Jun, Diabetes type 2, controlled E11.9 ; Back muscle spasm M62.830 and Other chronic pain G89.29 [facility] [id number] [place] [address] 91330- 3221 Jun, Screening breast examination Z12.31 [facility] [address] [place] [address] 92764- 7472 May, Other chronic pain G89.29 [facility] [address] [place] [address] 62865- 6701 May, [facility] [address] [place] [address] 09841- 8255 May, UTI (urinary tract infection) N39.0 [facility] [address] [address]- 7760 04 May, 2017 Dysuria R30.0 [facility] [address] [place] [address] 36752- 7107 04 May, 2017 Dysuria R30.0 [facility] [address] [address]- 9830 04 May, 2017 Diabetes type 2, controlled E11.9 ; 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 and Other chronic pain G89.29 [facility] [address] [address]- 6819 Apr, Diabetes type 2, controlled E11.9 [facility] [address] [address] Mar, Paronychia of great toe, right L03.031 and Dysuria R30.0 [facility] [id number] [place] [address] 46187- 6479 09 Mar, 2017 Diabetes type 2, controlled E11.9 [facility] [address] [place] [address] 42403- 8842 28 Feb, 2017 Diabetes type 2, controlled E11.9 [facility] [address] [place] [address] [id number] 13 Feb, 2017 Dental examination Z01.20 [facility] [id number] [place] [address] 06110- 8155 11 Feb, 2017 Diabetes type 2, controlled E11.9 [facility] [id number] [place] [address] 96163- 5338 07 Feb, 2017 Diabetes type 2, controlled E11.9 [facility] [id number] [place] [address] 86491- 1065 Jan, Diabetes type 2, controlled E11.9 [facility] [id number] [place] [address] 67964- 4149 Dec, Diabetes type 2, controlled E11.9 [facility] [id number] [place] [address] 14522- 1412 Dec, Diabetes type 2, controlled E11.9 [facility] [id number] [place] [address] 63059- 3896 Nov, Diabetes type 2, controlled E11.9 [facility] [address] [place] [address] 34176- 9284 Nov, Diabetes type 2, controlled E11.9 [facility] [id number] [place] [address] 10789- 6547 Nov, Diabetes type 2, controlled E11.9 [facility] [id number] [place] [address] 00163- 2660 Nov, Diabetes type 2, controlled E11.9 [facility] [address] [address]- 3714 Nov, Diabetes type 2, controlled E11.9 [facility] [id number] [place] [address] 59607- 2035 Nov, Diabetes type 2, controlled E11.9 [facility] [id number] [place] [address] 35197- 0227 October, Pain in unspecified shoulder M25.519 [facility] [id number] [place] [address] 68047- 2269 October, Diabetes type 2, controlled E11.9 and Cellulitis of right lower extremity L03.115 [place] [id number] [place] [address] 08527- 5567 October, Pain in unspecified shoulder M25.519 [place] [facility] [id number] [place] [address] 91292- 1274 Sep, Diabetes type 2, controlled E11.9 [facility] [id number] [place] [address] 67947- 2854 Aug, Pain in unspecified shoulder M25.519 [place] [id number] [place] [address] 99501- 5186 Aug, Diabetes type 2, controlled E11.9 [place] [id number] [place] [address] 43327- 5465 Aug, Diabetes type 2, controlled E11.9 ; Dark urine R82.99 and Localized edema R60.0 [place] [id number] [place] [address] 41346- 6075 Aug, Pain in unspecified shoulder M25.519 [facility] [id number] [place] [address] 34902- 6354 Jul, Pain in unspecified shoulder M25.519 [place] [facility] [id number] [place] [address] 00968- 9793 06 Jul, 2016 [place] [id number] [place] [address] 71641- 4021 02 Jul, 2016 Diabetes type 2, controlled E11.9 and half-way current use of 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 Z79.891 [place] [id number] [place] [address] 90976- 7005 Jun, Diabetes type 2, controlled E11.9 [place] [address] 42276- 3852 Jun, Screening breast examination Z12.39 and Allergic rhinitis, unspecified allergic rhinitis trigger, unspecified rhinitis seasonality J30.9 [place] [address] 21835- 0485 10 Jun, 2016 Pain in unspecified shoulder M25.[address] 08682- 7679 May, [place] [address] 34875- 7600 May, Pain in unspecified shoulder M25.519 [place] [address] 26458- 7134 05 May, 2016 Thoracogenic scoliosis of thoracolumbar region M41.35 ; Low back pain M54.5 ; Other chronic pain G89.29 and Uncontrolled type 2 diabetes mellitus without complication, without long-term current use of insulin E11.65 [place] [id number] [place] [address] 27877- 3932 28 Apr, 2016 [place] [id number] [place] [address] 81173- 6347 Apr, [address] 30414- 7716 04 Apr, 2016 History of type 2 diabetes mellitus Z86.39 and Encounter for immunization Z23 [place] [id number] [place] [address] 89742- 9936 Mar, [facility] [address] [facility] [id number] [address]- 8277 Mar, [facility] [address] [place] [address]- 0685 Feb, [facility] [address] [facility] [id number] [place] [address]- 5540 Jan, [facility] [address] [address]- 6435 Jan, [facility] [id number] [address]- 5984 Dec, [facility] [id number] [address] -5432 Dec, Sore throat J02.9 and Allergic rhinitis, unspecified allergic rhinitis type J30.9 [facility] [address] [address]- 0329 Dec, Diabetes type 2, controlled E11.9 [facility] [id number] [address]- 7770 Nov, [facility] [address] [place] [address]- 1513 Nov, [facility] [id number] [address]- 1490 October, [facility] [id number] [address]- 1947 October, [facility] [id number] [address]- 3403 Sep, [facility] [id number] [address]- 0822 Aug, [facility] [id number] 7542 Aug, Diabetes type 2, controlled E11.9 ; UTI (urinary tract infection) N39.0 and Bacterial infection A49.9 [place] [address] [place] [address] 63381- 4424 Jul, [facility] [place] [id number] [place] [address] 38844- 8430 Jul, [facility] [place] [id number] [place] [address] 06134- 2944 Jul, Pharyngitis J02.9 and Seborrheic keratoses L82.1 [place] [id number] [place] [address] 58848- 8992 Jun, [facility] [place] [address] 10787- 6690 May, [place] [id number] [place] [address] 70787- 9405 May, Skin tags, multiple acquired L91.8 ; Seborrheic keratoses L82.1 and Diabetes type 2, controlled E11.9 [facility] [place] [id number] [place] [address] 60521- 7126 May, Well woman exam Z01.419 ; Papanicolaou [...] Other fatigue R53.83 and Other hemorrhoids K64.8 [place] [id number] [place] [address] 94857- 9742 May, [facility] [place] [id number] [place] [address] 91301- 1943 May, [facility] [place] [id number] [place] [address] 59230- 3356 Apr, Seborrheic keratosis L82.1 and Diabetes type 2, controlled E11.9 [facility] [id number] [place] [address] 30311- 2349 Apr, Seborrheic keratosis L82.1 and Diabetes type 2, controlled E11.9 [facility] [id number] [place] [address] 77890- 2798 Mar, [facility] [address] 27342- 4315 Mar, [facility] [id number] [place] [address] 37778- 7930 Mar, Nevoid hyperpigmentation L81.9 ; Encounter for immunization Z23 ; Skin tags, multiple acquired L91.8 and Seborrheic keratoses L82.1 [facility] [id number] [place] [address] 51296- 0989 Feb, [facility] [id number] [place] [address] 21343- 1225 Feb, [facility] [id number] [place] [address] 72541- 3117 Feb, [facility] [id number] [place] [address] 94300- 2753 Feb, Diabetes 250.00 ; Tinea corporis 110.5 and Shoulder pain, left 719.41 [facility] [id number] [place] [address] 80563- 2700 Jan, [facility] [id number] [place] [address] 75184- 6855 Dec, [facility] [address] 16640- 0425 Dec, [facility] [id number] [place] [address] 92291- 8789 Dec, Seborrheic keratoses 702.19 ; Diabetes 250.00 and Hypoglycemia 251.2 [facility] [address] [id number] [place] [address]- 9937 Nov, [facility] [address] [facility] [id number] [place] [address]- 4115 Nov, Abnormal mammogram 793.80 [facility] [address] [facility] [id number] [place] [address]- 4881 October, Diabetes 250.00 and Colon polyp 211.3 [facility] [address] [id number] [address]- 3064 Sep, [facility] [address] [id number] [place] [address]- 0287 Sep, [facility] [address] [facility] [id number] [place] [address]- 4476 Sep, [facility] [address] [place] [address]- 5788 Aug, [facility] [address] [id number] [place] [address]- 6643 Aug, [facility] [address] [id number] [place] [address]- 7403 Jul, [facility] [address] [facility] [id number] [place] [address]- 5060 Jul, [facility] [id number] [address]- 6394 Jun, [facility] [id number] [place] [address]- 7003 Jun, [facility] [address] [id number] [place] [address]- 6877 Jun, [facility] [address] [facility] [id number] [place] 1385 Jun, [facility] [id number] [place] [address]- 1326 Jun, [facility] [place] [facility] [address] [id number] [place] [address]- 1978 Jun, [facility] [place] [facility] [address] [id number] [place] [address]- 9551 May, [facility] [place] [facility] [address] [id number] [place] [address]- 9003 May, [facility] [place] [facility] [address] [id number] [place] [address]- 0495 Apr, [facility] [place] [facility] [address] [id number] [place] [address]- 6969 Apr, [facility] [place] [facility] [address] [id number] [place] [address]- 5361 Apr, [facility] [place] [facility] [address] [id number] [place] [address]- 6140 Apr, [facility] [place] [facility] [address] [id number] [place] [address]- 9566 Apr, [facility] [place] [facility] [address] [id number] [place] [address]- 8212 Apr, [facility] [place] [facility] [address] [id number] [place] [address]- 2940 Apr, [facility] [place] [facility] [address] [id number] [place] [address]- 9328 Apr, [facility] [place] [facility] [address] [id number] [place] [address]- 0383 Apr, [facility] [place] [facility] [address] [id number] [place] [address]- 8628 Apr, [facility] [place] [facility] [address] [id number] [place] [address]- 2693 Mar, [facility] [place] [facility] [address] [id number] [place] [address]- 1883 Mar, [facility] [place] [facility] [address] [id number] [place] [address]- 2801 Mar, [facility] [place] [facility] [address] [id number] [place] [address]- 0318 Mar, [facility] [place] [facility] [address] [id number] [place] [address]- 5031 Mar, [facility] [place] [facility] [address] [id number] [place] [address]- 3496 Mar, [facility] [place] [facility] [address] [id number] [place] [address]- 5338 Mar, [facility] [place] [facility] [address] [id number] [place] [address]- 7993 Mar, [facility] [place] [facility] [address] [id number] [place] [address]- 8167 Feb, [facility] [place] [facility] [address] [id number] [place] [address]- 5383 Feb, [facility] [place] [facility] [address] [id number] [place] [address]- 0518 Feb, [facility] [place] [facility] [address] [id number] [place] [address]- 0767 Feb, [facility] [place] [facility] [address] [id number] [place] [address]- 4964 Jan, [facility] [place] [facility] [address] [id number] [place] [address]- 4852 Jan, [facility] [place] [facility] [address] [id number] [address]- 9882 Dec, [facility] [place] [facility] [address] [id number] [place] [address]- 7911 Dec, [facility] [place] [facility] [address] [id number] [address]- 8223 Nov, [facility] [place] [facility] [address] [id number] [place] [address]- 0812 Nov, [facility] [place] [facility] [address] [id number] [place] [address]- 1324 Nov, [facility] [place] [facility] [address] [id number] [place] [address]- 4587 Nov, [facility] [place] [facility] [address] [id number] [place] [address]- 8593 October, [facility] [place] [facility] [address] [id number] [place] [address]- 2211 October, [facility] [place] [facility] [address] [id number] [place] [address]- 1508 October, [facility] [place] [facility] [address] [id number] [place] October, [facility] [place] [facility] [address] [id number] [place] [address] October, [facility] [place] [facility] [address] [id number] [place] [address] October, [facility] [place] [facility] [address] [id number] [place] [address] October, [facility] [place] [facility] [address] [id number] [place] [address] October, [facility] [place] [facility] [address] [id number] [place] [address] Aug, [facility] [place] [facility] [address] [id number] [place] [address] Aug, [facility] [place] [facility] [address] [id number] [place] [address] Jul, [facility] [place] [facility] [address] [id number] [place] [address] Jul, [facility] [place] [facility] [address] [id number] [place] [address] Jul, [facility] [place] [facility] [address] [id number] [place] [address] Jul, [facility] [place] [facility] [address] [id number] [place] [address] Jul, [facility] [place] [facility] [address] [id number] [place] [address] Jun, [facility] [place] [facility] [address] [id number] [place] [address] Jun, [facility] [place] [facility] [address] [id number] [place] [address] May, [facility] [place] [facility] [address] [id number] [place] [address] May, [facility] [place] [facility] [address] [id number] [place] [address] Apr, [facility] [place] [facility] [address] [id number] [place] [address] Apr, [facility] [place] [facility] [address] [id number] [address] Mar, [facility] [place] [facility] [address] [id number] [place] [address] Mar, [facility] [place] [facility] [address] [id number] [place] [address] Mar, [facility] [place] [facility] [address] [id number] [place] [address] Feb, [facility] [place] [facility] [address] [id number] [place] [address] 20 Feb, 2013 [facility] [place] [facility] [address] [id number] [place] [address] 17 Feb, 2013 [facility] [place] [facility] [address] [id number] [address] 04 Feb, 2013 [facility] [place] [facility] [address] [id number] [address] 04 Feb, 2013 [facility] [place] [facility] [address] [id number] [address] Jan, [facility] [address] [id number] [place] [address] Dec, [facility] [place] [facility] [address] [id number] [place] [address] Nov, [facility] [place] [facility] [address] [id number] [place] [address] October, [facility] [place] [facility] [address] [id number] [place] [address] Sep, [facility] [place] [facility] [address] [id number] [place] [address] Aug, [facility] [place] [facility] [address] [id number] [place] [address] Aug, [facility] [address] [id number] [place] [address] Aug, [facility] [place] [facility] [address] [id number] [place] [address] May, [facility] [address] [id number] [place] [address] May, [facility] [place] [facility] [address] [facility] [id number] [place] [address] May, [facility] [place] [facility] [address] [id number] [place] [address] May, [facility] [place] [facility] [address] [id number] [place] [address]79 11 May, 2012 [facility] [place] [facility] [address] [id number] [place] [address] 16 Apr, 2012 [facility] [place] [facility] [address] [id number] [place] [address] 9467 16 Apr, 2012 [facility] [place] [facility] [address] [facility] [id number] [place] [address] 14 Apr, 2012 [facility] [place] [facility] [address] [id number] [place] [address] 97[address] 14 Apr, 2012 [facility] [place] [facility] [address] [id number] [place] [address] 07 Apr, 2012 [facility] [place] [facility] [address] [id number] [place] [address] Apr, [facility] [place] [facility] [address] [id number] [place] [address] 8068 Apr, [facility] [place] [facility] [address] [id number] [place] [address] Apr, [facility] [place] [facility] [address] [id number] [place] [address] Mar, [facility] [place] [facility] [address] [id number] [place] [address] Mar, [facility] [place] [facility] [address] [id number] [place] [address] Mar, [facility] [place] [facility] [address] [id number] [place] [address]26 Mar, [facility] [place] [facility] [address] [id number] [place] [address] Mar, [facility] [place] [facility] [address] [facility] [id number] [place] [address] 265[address] Mar, [facility] [place] [facility] [address] [id number] [place] [address] Mar, [facility] [place] [facility] [address] [id number] [place] [address] 28 Feb, 2012 [facility] [place] [facility] [address] [id number] [place] [address] 24 Sep2011 [facility] [place] [facility] [address] [id number] [place] [address] 20 Feb, 2012 [facility] [place] [facility] [address] [id number] [place] [address] Feb, [facility] [place] [facility] [address] [id number] [place] [address] Jan, [facility] [place] [facility] [address] [id number] [place] [address] Jan, [facility] [place] [facility] [address] [id number] [place] [address] Jan, [facility] [place] [facility] [address] [id number] [place] [address] Jan, [facility] [place] [facility] [address] [id number] [place] [address] 118[address] Jan, [facility] [place] [facility] [address] [id number] [place] [address] Jan, [facility] [place] [facility] [address] [id number] [place] [address] Dec, [facility] [place] [facility] [address] [id number] [place] [address] Dec, [facility] [place] [facility] [address] [id number] [place] [address] 3564 Dec, [facility] [place] [facility] [address] [id number] [place] [address] Dec, [facility] [place] [facility] [address] [id number] [place] [address]28 Dec, [facility] [place] [facility] [address] [id number] [place] [address] Dec, [facility] [place] [facility] [address] [id number] [place] [address] 1007 Dec, [facility] [place] [facility] [address] [id number] [place] [address] 1692 Dec, [facility] [place] [facility] [address] [id number] [place] [address] 8316 Nov, [facility] [place] [facility] [address] [id number] [place] [address] 2313 11 Nov, 2011 [facility] [place] [facility] [address] [id number] [place] [address]- [address]33 08 Nov, 2011 [facility] [place] [facility] [address] [id number] [place] [address]- 1446 07 Nov, 2011 [facility] [place] [facility] [address] [id number] [place] [address] October, [facility] [place] [facility] [address] [id number] [place] [address] October, [facility] [place] [facility] [address] [id number] [place] [address] Sep, [facility] [place] [facility] [address] [id number] [place] [address] 1836 Sep, [facility] [place] [facility] [address] [id number] [place] [address] 9137 Aug, [facility] [place] [facility] [address] [id number] [place] [address]- 1838 16 Aug, 2011 [facility] [place] [facility] [address] [id number] [place] [address] 3210 Aug, [facility] [place] [facility] [address] [facility] [id number] [place] [address] 1315 Aug, [facility] [place] [facility] [address] [id number] [place] [address]- [address] 05 Aug, 2011 [facility] [place] [facility] [address] [id number] [place] [address] 6[address] 08 Jul, 2011 [facility] [place] [facility] [address] [id number] [place] [address]686 06 Jul, 2011 [facility] [place] [facility] [address] [id number] [place] [address] Jul, [facility] [place] [facility] [address] [id number] [place] [address] 9846 Jul, [facility] [address] [id number] [place] [address] 8[address] Jun, [facility] [place] [facility] [address] [id number] [place] [address]- 7106 Jun, [facility] [place] [facility] [address] [id number] [place] [address]- 9435 Jun, [facility] [place] [facility] [address] [id number] [place] [address]- 5333 Jun, [facility] [place] [facility] [address] [id number] [place] [address]- 5350 Jun, [facility] [place] [facility] [address] [id number] [place] [address] 9209 May, [facility] [place] [facility] [address] [facility] [id number] [place] [address]- 8261 May, [facility] [place] [facility] [address] [id number] [address] May, [facility] [place] [facility] [address] [facility] [id number] [place] [address]- 5130 May, [facility] [place] [facility] [address] [facility] [id number] [address] May, [facility] [place] [facility] [address] [facility] [id number] [address] 8969 May, [facility] [place] [facility] [address] [id number] [address]- 3285 Apr, [facility] [place] [facility] [address] [id number] [address] 8537 Apr, [facility] [place] [facility] [address] [id number] [address] 1576 Mar, [facility] [place] [facility] [address] [id number] [place] [address] 9233 Mar, [facility] [place] [facility] [address] [id number] [address] October, [facility] [id number] [address] May, [facility] [id number] [address] Apr, [facility] [id number] [address] Jul, [facility] [id number] [place] [address] 64[address] May, [facility] [id number] [place] [address] 388464- 2968 May, [facility] [id number] [place] [address]- 7742 May, [facility] [id number] [place] [address]- 4075 Apr, [facility] [id number] [address] Apr, [facility] [id number] [place] [address]- 0950 Mar, [facility] [id number] [address] 39[address] Jan, [facility] [id number] [address] Nov, IMMUNIZATIONS No Known Immunizations SOCIAL HISTORY Never Assessed REASON FOR VISIT PLAN OF CARE VITAL SIGNS MEDICATIONS Medication Instructions Dosage Frequency Start Date End Date Duration Status Pen [place] 31G X 6 MM use with victoza pens Nov, Active RESULTS No Results PROCEDURES No Known [...]
--- OUTSIDE RECORDS SUMMARY | 2018-02-19 21:27 | XMS REPORT ---
Author Author BOOGIE ARAUJO Organization [facility] Address [address] [place] [address] Care Team Providers Care Rehab Services Aide Name Role Phone BOOGIE ARAUJO Unavailable PROBLEMS Type Condition ICD9-CM Code PUM92-ZO Code Onset Dates Condition Status SNOMED Code Problem History of abnormal cervical Pap smear Z87.898 Active 517872610 Problem Thoracogenic scoliosis of thoracolumbar region M41.35 Active 65470738 Problem Uncontrolled type 2 diabetes mellitus without complication, without long-term current use of insulin E11.65 Active 090169129 Problem Diabetes type 2, controlled E11.9 Active 39424629 Problem Thyroid nodule E04.1 Active 582023448 Problem History of colon polyps Z86.010 Active 545883903 Problem Other iron deficiency anemia D50.8 Active 25374441 Problem Iron deficiency anemia due to chronic blood loss D50.0 Active 710789976 Problem Screening breast examination Z12.39 Active 027659835 Problem Allergic rhinitis, unspecified allergic rhinitis trigger, unspecified rhinitis seasonality J30.9 Active 98394249 Problem Controlled type 2 diabetes mellitus without complication, without long -term current use of insulin E11.9 Active 336116949 Problem Other chronic pain G89.29 Active 00514392 ALLERGIES No Information ENCOUNTERS Encounter Location Date Diagnosis [facility] [id number] [place] [address] 91600- 1035 Jan, [facility] [id number], [place] [address] 4426 Dec, Other chronic pain G89.29 [facility] [id number] [place] [address] 67256- 5312 Dec, Diabetes type 2, controlled E11.9 [facility] [id number], [place] [address] 1845 Nov, Other chronic pain G89.29 [facility] [id number] [address] 9409 Nov, [facility] [id number] [place] [address] 64273- 5765 Nov, [facility] [address] [address] 1745 October, Diabetes type 2, controlled E11.9 and Acute cystitis without hematuria N30.00 [facility] [address] [address] 8732 October, [facility] [id number] [place] [address] 77846- 1279 October, [facility] [id number] [place] [address] 31178- 5122 October, [facility] [id number] [place] [address] 89010- 0543 October, Other chronic pain G89.29 [facility] [address] [address] 3050 Sep, Diabetes type 2, controlled E11.9 [facility] [address], [place] [address]- 0538 Sep, [facility] [address], [place] [address]- 1219 Sep, Diabetes type 2, controlled E11.9 [facility] [address] [address]- 7457 16 Sep, 2017 Other chronic pain G89.29 [facility] [address] [address]- 1730 13 Sep, 2017 Other iron deficiency anemia D50.8 [facility] [address], [place] [address] 12 Sep, 2017 Other iron deficiency anemia D50.8 [facility] [id number] [place] [address] 89693- 3484 Sep, Iron deficiency anemia due to chronic blood loss D50.0 and Dysuria R30.0 [facility] [facility] [id number] [place] [address] 14218- 2642 Sep, Dysuria R30.0 [facility] [id number] [place] [address] 70099- 9905 Sep, Iron deficiency anemia due to chronic blood loss D50.0 [facility] [id number] [place] [address] 74330- 0456 Sep, [facility] [id number] [place] [address] 74529- 3971 Sep, Controlled type 2 diabetes mellitus without complication, without long-term current use of insulin E11.9 ; Leg cramps R25.2 ; Low back pain M54.5 and Other chronic pain G89.29 [facility] [id number] [place] [address] 88969- 0418 Sep, Controlled type 2 diabetes mellitus without complication, without long-term current use of insulin E11.9 ; Low back pain M54.5 ; Other chronic pain G89.29 and Leg cramps R25.2 [facility] [id number] [place] [address] 00363- 8608 Aug, Other chronic pain G89.29 [facility] [id number] [place] [address] 64010- 4618 Jul, Other chronic pain G89.29 [facility] [id number] [place] [address] 81048- 4694 Jul, Pneumonia of left lower lobe due to infectious organism J18.1 [facility] [id number] [place] [address] 84145 -9062 Jul, Dysuria R30.0 ; Cough in adult patient R05 and Pneumonia of left lower lobe due to infectious organism J18.1 [facility] [id number], [place] [address]- 5594 08 Jul, 2017 [facility] [address], [place] [address]- 9080 Jun, Other chronic pain G89.29 [facility] [address], [place] [address]- 1720 Jun, [facility] [id number] [place] [address] 39064- 7095 Jun, Diabetes type 2, controlled E11.9 ; Back muscle spasm M62.830 and Other chronic pain G89.29 [facility] [id number] [place] [address] 20369- 9639 Jun, Screening breast examination Z12.31 [facility] [id number] [place] [address] 02096- 6159 May, Other chronic pain G89.29 [facility] [id number] [place] [address] 96489- 3795 May, [facility] [id number] [place] [address] 52693- 0364 May, UTI (urinary tract infection) N39.0 [facility] [address], [place] [address]- 0641 04 May, 2017 Dysuria R30.0 [facility] [id number] [place] [address] 85854- 3368 04 May, 2017 Dysuria R30.0 [facility] [address], [place] [address]- 8803 04 May, 2017 Diabetes type 2, controlled E11.9 ; hoister current use of 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 Z79.891 and Other chronic pain G89.29 [facility] [address], [place] [address]- 8226 Apr, Diabetes type 2, controlled E11.9 [facility] [address], [place] [address] Mar, Paronychia of great toe, right L03.031 and Dysuria R30.0 [facility] [id number] [place] [address] 79066- 0188 09 Mar, 2017 Diabetes type 2, controlled E11.9 [facility] [id number] [place] [address] 80313- 3263 28 Feb, 2017 Diabetes type 2, controlled E11.9 [facility] [id number] [place] [address] [id number] 13 Feb, 2017 Dental examination Z01.20 [facility] [id number] [place] [address] 95079- 8489 11 Feb, 2017 Diabetes type 2, controlled E11.9 [facility] [id number] [place] [address] 61706- 4329 07 Feb, 2017 Diabetes type 2, controlled E11.9 [facility] [id number] [place] [address] 85471- 5092 Jan, Diabetes type 2, controlled E11.9 [facility] [id number] [place] [address] 50757- 5678 Dec, Diabetes type 2, controlled E11.9 [facility] [id number] [place] [address] 48262- 7963 Dec, Diabetes type 2, controlled E11.9 [facility] [id number] [place] [address] 88652- 8302 Nov, Diabetes type 2, controlled E11.9 [facility] [id number] [place] [address] 74675- 9256 Nov, Diabetes type 2, controlled E11.9 [facility] [id number] [place] [address] 69721- 8179 Nov, Diabetes type 2, controlled E11.9 [facility] [id number] [place] [address] 01058- 2312 Nov, Diabetes type 2, controlled E11.9 [facility] [address], [place] [address]- 5870 Nov, Diabetes type 2, controlled E11.9 [facility] [id number] [place] [address] 84516- 9198 Nov, Diabetes type 2, controlled E11.9 [facility] [id number] [place] [address] 62865- 4851 October, Pain in unspecified shoulder M25.519 [facility] [id number] [place] [address] 48496- 4049 October, Diabetes type 2, controlled E11.9 and Cellulitis of right lower extremity L03.115 [facility] [facility] [id number] [place] [address] 61767- 2631 October, Pain in unspecified shoulder M25.519 [facility] [facility] [id number] [place] [address] 79964- 1574 Sep, Diabetes type 2, controlled E11.9 [facility] [id number] [place] [address] 38662- 6924 Aug, Pain in unspecified shoulder M25.519 [facility] [facility] [id number] [place] [address] 76774- 3007 Aug, Diabetes type 2, controlled E11.9 [facility] [id number] [place] [address] 51566- 9426 Aug, Diabetes type 2, controlled E11.9 ; Dark urine R82.99 and Localized edema R60.0 [facility] [facility] [id number] [place] [address] 33105- 1298 Aug, Pain in unspecified shoulder M25.519 [facility] [id number] [place] [address] 55456- 3968 Jul, Pain in unspecified shoulder M25.519 [facility] [facility] [id number] [place] [address] 50048- 0382 06 Jul, 2016 [facility] [facility] [id number] [place] [address] 81357- 3068 02 Jul, 2016 Diabetes type 2, controlled E11.9 and 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.891 [facility] [facility] [id number] [place] [address] 23670- 5763 Jun, Diabetes type 2, controlled E11.9 [facility] [address] 02881- 0562 Jun, Screening breast examination Z12.39 and Allergic rhinitis, unspecified allergic rhinitis trigger, unspecified rhinitis seasonality J30.9 [facility] [address] 96353- 1197 10 Jun, 2016 Pain in unspecified shoulder M25.[address] 57957- 7111 May, [place] [address] 64168- 7969 May, Pain in unspecified shoulder M25.519 [facility] [address] 04593- 0737 05 May, 2016 Thoracogenic scoliosis of thoracolumbar region M41.35 ; Low back pain M54.5 ; Other chronic pain G89.29 and Uncontrolled type 2 diabetes mellitus without complication, without long-term current use of insulin E11.65 [facility] [facility] [id number] [place] [address] 88439- 3596 28 Apr, 2016 [facility] [id number] [place] [address] 74237- 4893 Apr, [address] 70180- 0554 04 Apr, 2016 History of type 2 diabetes mellitus Z86.39 and Encounter for immunization Z23 [facility] [id number] [place] [address] 99290- 6088 Mar, [facility] [address] [facility] [id number] [address]- 6501 Mar, [facility] [address] [place] [address]- 9923 Feb, [facility] [address] [facility] [id number] [place] [address]- 2813 Jan, [facility] [address], [place] [address]- 8602 Jan, [facility] [id number], [place] [address]- 7490 Dec, [facility] [id number], [place] [address] -8095 Dec, Sore throat J02.9 and Allergic rhinitis, unspecified allergic rhinitis type J30.9 [facility] [address], [place] [address]- 5734 Dec, Diabetes type 2, controlled E11.9 [facility] [id number], [place] [address]- 6393 Nov, [facility] [address] [place] [address]- 4505 Nov, [facility] [id number], [place] [address]- 2719 October, [facility] [id number], [place] [address]- 3170 October, [facility] [id number], [place] [address]- 1314 Sep, [facility] [id number], [place] [address]- 6198 Aug, [facility] [id number] 6954 Aug, Diabetes type 2, controlled E11.9 ; UTI (urinary tract infection) N39.0 and Bacterial infection A49.9 [facility] [address] [place] [address] 90557- 4400 Jul, [facility] [facility] [id number] [place] [address] 25057- 9518 Jul, [facility] [id number] [place] [address] 68694- 2230 Jul, Pharyngitis J02.9 and Seborrheic keratoses L82.1 [facility] [id number] [place] [address] 48048- 7924 Jun, [facility] [address] 79772- 3439 May, [facility] [id number] [place] [address] 41462- 8593 May, Skin tags, multiple acquired L91.8 ; Seborrheic keratoses L82.1 and Diabetes type 2, controlled E11.9 [facility] [facility] [id number] [place] [address] 72852- 9491 May, Well woman exam Z01.419 ; Papanicolaou [...] Other fatigue R53.83 and Other hemorrhoids K64.8 [facility] [facility] [id number] [place] [address] 26680- 2276 May, [facility] [id number] [place] [address] 03532- 3602 May, [facility] [id number] [place] [address] 74046- 0791 Apr, Seborrheic keratosis L82.1 and Diabetes type 2, controlled E11.9 [facility] [id number] [place] [address] 57555- 3767 Apr, Seborrheic keratosis L82.1 and Diabetes type 2, controlled E11.9 [facility] [id number] [place] [address] 40625- 7289 Mar, [facility] [address] 36455- 0974 Mar, [facility] [id number] [place] [address] 41387- 9048 Mar, Nevoid hyperpigmentation L81.9 ; Encounter for immunization Z23 ; Skin tags, multiple acquired L91.8 and Seborrheic keratoses L82.1 [facility] [id number] [place] [address] 98798- 6247 Feb, [facility] [id number] [place] [address] 93520- 3249 Feb, [facility] [id number] [place] [address] 15759- 2956 Feb, [facility] [id number] [place] [address] 47881- 5509 Feb, Diabetes 250.00 ; Tinea corporis 110.5 and Shoulder pain, left 719.41 [facility] [id number] [place] [address] 19004- 4760 Jan, [facility] [id number] [place] [address] 09292- 3913 Dec, [facility] [address] 64628- 0003 Dec, [facility] [id number] [place] [address] 88729- 8875 Dec, Seborrheic keratoses 702.19 ; Diabetes 250.00 and Hypoglycemia 251.2 [facility] [address] [id number] [place] [address]- 6447 Nov, [facility] [address] [facility] [id number] [place] [address]- 9598 Nov, Abnormal mammogram 793.80 [facility] [address] [facility] [id number] [place] [address]- 2181 October, Diabetes 250.00 and Colon polyp 211.3 [facility] [address] [id number], [place] [address]- 6625 Sep, [facility] [address] [id number] [place] [address]- 5627 Sep, [facility] [address] [facility] [id number] [place] [address]- 4990 Sep, [facility] [address] [place] [address]- 5745 Aug, [facility] [address] [id number] [place] [address]- 8571 Aug, [facility] [address] [id number] [place] [address]- 8698 Jul, [facility] [address] [facility] [id number] [place] [address]- 7379 Jul, [facility] [id number] [address]- 6540 Jun, [facility] [id number] [place] [address]- 8456 Jun, [facility] [address] [id number] [place] [address]- 0426 Jun, [facility] [address] [facility] [id number] [place] 3699 Jun, [facility] [id number] [place] [address]- 4796 Jun, [facility] [place] [facility] [address] [id number] [place] [address]- 3747 Jun, [facility] [place] [facility] [address] [id number] [place] [address]- 7195 May, [facility] [place] [facility] [address] [id number] [place] [address]- 2303 May, [facility] [place] [facility] [address] [id number] [place] [address]- 4365 Apr, [facility] [place] [facility] [address] [id number] [place] [address]- 8412 Apr, [facility] [place] [facility] [address] [id number] [place] [address]- 5213 Apr, [facility] [place] [facility] [address] [id number] [place] [address]- 6325 Apr, [facility] [place] [facility] [address] [id number] [place] [address]- 1129 Apr, [facility] [place] [facility] [address] [id number] [place] [address]- 1206 Apr, [facility] [place] [facility] [address] [id number] [place] [address]- 6856 Apr, [facility] [place] [facility] [address] [id number] [place] [address]- 3172 Apr, [facility] [place] [facility] [address] [id number] [place] [address]- 7066 Apr, [facility] [place] [facility] [address] [id number] [place] [address]- 8098 Apr, [facility] [place] [facility] [address] [id number] [place] [address]- 9229 Mar, [facility] [place] [facility] [address] [id number] [place] [address]- 2993 Mar, [facility] [place] [facility] [address] [id number] [place] [address]- 9766 Mar, [facility] [place] [facility] [address] [id number] [place] [address]- 8947 Mar, [facility] [place] [facility] [address] [id number] [place] [address]- 7544 Mar, [facility] [place] [facility] [address] [id number] [place] [address]- 7172 Mar, [facility] [place] [facility] [address] [id number] [place] [address]- 5558 Mar, [facility] [place] [facility] [address] [id number] [place] [address]- 8725 Mar, [facility] [place] [facility] [address] [id number] [place] [address]- 8999 Feb, [facility] [place] [facility] [address] [id number] [place] [address]- 6625 Feb, [facility] [place] [facility] [address] [id number] [place] [address]- 7296 Feb, [facility] [place] [facility] [address] [id number] [place] [address]- 4422 Feb, [facility] [place] [facility] [address] [id number] [place] [address]- 6273 Jan, [facility] [place] [facility] [address] [id number] [place] [address]- 7262 Jan, [facility] [place] [facility] [address] [id number], [place] [address]- 0050 Dec, [facility] [place] [facility] [address] [id number] [place] [address]- 2895 Dec, [facility] [place] [facility] [address] [id number], [place] [address]- 4096 Nov, [facility] [place] [facility] [address] [id number] [place] [address]- 3909 Nov, [facility] [place] [facility] [address] [id number] [place] [address]- 1067 Nov, [facility] [place] [facility] [address] [id number] [place] [address]- 9569 Nov, [facility] [place] [facility] [address] [id number] [place] [address]- 0544 October, [facility] [place] [facility] [address] [id number] [place] [address]- 5044 October, [facility] [place] [facility] [address] [id number] [place] [address]- 9106 October, [facility] [place] [facility] [address] [id number] [place] [address] [address] October, [facility] [place] [facility] [address] [id number] [place] [address] October, [facility] [place] [facility] [address] [id number] [place] [address] October, [facility] [place] [facility] [address] [id number] [place] [address] October, [facility] [place] [facility] [address] [id number] [place] [address] October, [facility] [place] [facility] [address] [id number] [place] [address] Aug, [facility] [place] [facility] [address] [id number] [place] [address] Aug, [facility] [place] [facility] [address] [id number] [place] [address] Jul, [facility] [place] [facility] [address] [id number] [place] [address] Jul, [facility] [place] [facility] [address] [id number] [place] [address] Jul, [facility] [place] [facility] [address] [id number] [place] [address] Jul, [facility] [place] [facility] [address] [id number] [place] [address] Jul, [facility] [place] [facility] [address] [id number] [place] [address] Jun, [facility] [place] [facility] [address] [id number] [place] [address] Jun, [facility] [place] [facility] [address] [id number] [place] [address] May, [facility] [place] [facility] [address] [id number] [place] [address] May, [facility] [place] [facility] [address] [id number] [place] [address] Apr, [facility] [place] [facility] [address] [id number] [place] [address] Apr, [facility] [place] [facility] [address] [id number], [place] [address] Mar, [facility] [place] [facility] [address] [id number] [place] [address] Mar, [facility] [place] [facility] [address] [id number], [place] [address] Mar, [facility] [place] [facility] [address] [id number], [place] [address] Feb, [facility] [place] [facility] [address] [id number], [place] [address] 20 Feb, 2013 [facility] [place] [facility] [address] [id number] [place] [address] 17 Feb, 2013 [facility] [place] [facility] [address] [id number], [place] [address] 04 Feb, 2013 [facility] [place] [facility] [address] [id number], [place] [address] 04 Feb, 2013 [facility] [place] [facility] [address] [id number], [place] [address] Jan, [facility] [address] [id number] [place] [address] Dec, [facility] [place] [facility] [address] [id number] [place] [address] Nov, [facility] [place] [facility] [address] [id number] [place] [address] October, [facility] [place] [facility] [address] [id number] [place] [address] Sep, [facility] [place] [facility] [address] [id number] [place] [address] Aug, [facility] [place] [facility] [address] [id number] [place] [address] Aug, [facility] [address] [id number] [place] [address] Aug, [facility] [place] [facility] [address] [id number] [place] [address] May, [facility] [address] [id number] [place] [address] May, [facility] [place] [facility] [address] [facility] [id number] [place] [address] May, [facility] [place] [facility] [address] [id number] [place] [address] May, [facility] [place] [facility] [address] [id number] [place] [address] 11 May, 2012 [facility] [place] [facility] [address] [id number] [place] [address] 16 Apr, 2012 [facility] [place] [facility] [address] [id number] [place] [address] 16 Apr, 2012 [facility] [place] [facility] [address] [facility] [id number] [place] [address] 14 Apr, 2012 [facility] [place] [facility] [address] [id number] [place] [address] 14 Apr, 2012 [facility] [place] [facility] [address] [id number] [place] [address] 07 Apr, 2012 [facility] [place] [facility] [address] [id number] [place] [address] Apr, [facility] [place] [facility] [address] [id number] [place] [address] Apr, [facility] [place] [facility] [address] [id number] [place] [address] Apr, [facility] [place] [facility] [address] [id number] [place] [address] Mar, [facility] [place] [facility] [address] [id number] [place] [address] Mar, [facility] [place] [facility] [address] [id number] [place] [address] Mar, [facility] [place] [facility] [address] [id number] [place] [address] Mar, [facility] [place] [facility] [address] [id number] [place] [address] Mar, [facility] [place] [facility] [address] [facility] [id number] [place] [address] Mar, [facility] [place] [facility] [address] [id number] [place] [address]67 Mar, [facility] [place] [facility] [address] [id number] [place] [address] 28 Feb, 2012 [facility] [place] [facility] [address] [id number] [place] [address]- [address] 24 Sep2011 [facility] [place] [facility] [address] [id number] [place] [address] 20 Feb, 2012 [facility] [place] [facility] [address] [id number] [place] [address] Feb, [facility] [place] [facility] [address] [id number] [place] [address] Jan, [facility] [place] [facility] [address] [id number] [place] [address] 1269 Jan, [facility] [place] [facility] [address] [id number] [place] [address] Jan, [facility] [place] [facility] [address] [id number] [place] [address] 6968 Jan, [facility] [place] [facility] [address] [id number] [place] [address]- [address] Jan, [facility] [place] [facility] [address] [id number] [place] [address] Jan, [facility] [place] [facility] [address] [id number] [place] [address]181 Dec, [facility] [place] [facility] [address] [id number] [place] [address] Dec, [facility] [place] [facility] [address] [id number] [place] [address]408 Dec, [facility] [place] [facility] [address] [id number] [place] [address]97 Dec, [facility] [place] [facility] [address] [id number] [place] [address] Dec, [facility] [place] [facility] [address] [id number] [place] [address] 8087 Dec, [facility] [place] [facility] [address] [id number] [place] [address] Dec, [facility] [place] [facility] [address] [id number] [place] [address] Dec, [facility] [place] [facility] [address] [id number] [place] [address] Nov, [facility] [place] [facility] [address] [id number] [place] [address] 5765 11 Nov, 2011 [facility] [place] [facility] [address] [id number] [place] [address] 47[address] 08 Nov, 2011 [facility] [place] [facility] [address] [id number] [place] [address] 07 Nov, 2011 [facility] [place] [facility] [address] [id number] [place] [address] October, [facility] [place] [facility] [address] [id number] [place] [address] 3436 October, [facility] [place] [facility] [address] [id number] [place] [address] Sep, [facility] [place] [facility] [address] [id number] [place] [address]36 Sep, [facility] [place] [facility] [address] [id number] [place] [address] 4499 Aug, [facility] [place] [facility] [address] [id number] [place] [address] 4317 16 Aug, 2011 [facility] [place] [facility] [address] [id number] [place] [address] Aug, [facility] [place] [facility] [address] [facility] [id number] [place] [address] Aug, [facility] [place] [facility] [address] [id number] [place] [address] 3744 05 Aug, 2011 [facility] [place] [facility] [address] [id number] [place] [address] 2948 08 Jul, 2011 [facility] [place] [facility] [address] [id number] [place] [address] 06 Jul, 2011 [facility] [place] [facility] [address] [id number] [place] [address] 2546 Jul, [facility] [place] [facility] [address] [id number] [place] [address] 8916 Jul, [facility] [address] [id number] [place] [address] Jun, [facility] [place] [facility] [address] [id number] [place] [address]- [address] Jun, [facility] [place] [facility] [address] [id number] [place] [address]- 2269 Jun, [facility] [place] [facility] [address] [id number] [place] [address]- 1022 Jun, [facility] [place] [facility] [address] [id number] [place] [address]- [address]298 Jun, [facility] [place] [facility] [address] [id number] [place] [address] 4878 May, [facility] [place] [facility] [address] [facility] [id number] [place] [address] May, [facility] [place] [facility] [address] [id number], [place] [address] May, [facility] [place] [facility] [address] [facility] [id number] [place] [address]107 May, [facility] [place] [facility] [address] [facility] [id number], [place] [address] May, [facility] [place] [facility] [address] [facility] [id number], [place] [address]- [address]95 May, [facility] [place] [facility] [address] [id number], [place] [address] 9760 Apr, [facility] [place] [facility] [address] [id number], [place] [address] Apr, [facility] [place] [facility] [address] [id number], [place] [address] Mar, [facility] [place] [facility] [address] [id number], [place] [address]- [address] Mar, [facility] [place] [facility] [address] [id number], [place] [address] October, [facility] [id number] [address] May, [facility] [id number], [place] [address] Apr, [facility] [id number], [place] [address] Jul, [facility] [id number], [place] [address]- 4516 May, [facility] [id number] [place] [address]- [address] May, [facility] [id number] [place] [address] May, [facility] [id number] [place] [address]- [address] Apr, [facility] [id number], [place] [address]- 2584 Apr, [facility] [id number], [place] [address] 4[address] Mar, [facility] [id number], [place] [address] Jan, [facility] [id number], [place] [address] Nov, IMMUNIZATIONS No Known Immunizations SOCIAL HISTORY Never Assessed REASON FOR VISIT PLAN OF CARE VITAL SIGNS MEDICATIONS Unknown [...]
--- OUTSIDE RECORDS SUMMARY | 2018-02-19 21:27 | XMS REPORT ---
Author Author BOOGIE ARAUJO Organization [facility] Address [address] [place] [address] Care Team Providers Care Tub Tender Name Role Phone BOOGIE ARAUJO Unavailable PROBLEMS Type Condition ICD9-CM Code YCE17-EM Code Onset Dates Condition Status SNOMED Code Problem History of abnormal cervical Pap smear Z87.898 Active 083761197 Problem Thoracogenic scoliosis of thoracolumbar region M41.35 Active 28249745 Problem Uncontrolled type 2 diabetes mellitus without complication, without long-term current use of insulin E11.65 Active 563551528 Problem Diabetes type 2, controlled E11.9 Active 40953797 Problem Thyroid nodule E04.1 Active 986479329 Problem History of colon polyps Z86.010 Active 321958599 Problem Other iron deficiency anemia D50.8 Active 86879203 Problem Iron deficiency anemia due to chronic blood loss D50.0 Active 473736721 Problem Screening breast examination Z12.39 Active 796472643 Problem Allergic rhinitis, unspecified allergic rhinitis trigger, unspecified rhinitis seasonality J30.9 Active 29581803 Problem Controlled type 2 diabetes mellitus without complication, without long -term current use of insulin E11.9 Active 969469401 Problem Other chronic pain G89.29 Active 93253925 ALLERGIES No Information ENCOUNTERS Encounter Location Date Diagnosis [facility] [id number] [place] [address] 89515- 6661 Jan, [facility] [id number], [place] [address] 4127 Dec, Other chronic pain G89.29 [facility] [id number] [place] [address] 01277- 3236 Dec, Diabetes type 2, controlled E11.9 [facility] [id number], [place] [address] 2806 Nov, Other chronic pain G89.29 [facility] [id number], [place] [address] 4578 Nov, [facility] [id number] [place] [address] 44291- 6046 Nov, [facility] [address], [place] [address] 3725 October, Diabetes type 2, controlled E11.9 and Acute cystitis without hematuria N30.00 [facility] [address], [place] [address] 8953 October, [facility] [id number] [place] [address] 67685- 7734 October, [facility] [id number] [place] [address] 26406- 7061 October, [facility] [id number] [place] [address] 77134- 2579 October, Other chronic pain G89.29 [facility] [address], [place] [address] 8638 Sep, Diabetes type 2, controlled E11.9 [facility] [address] [address] 9326 Sep, [facility] [address], [place] [address]- 4375 Sep, Diabetes type 2, controlled E11.9 [facility] [address], [place] [address]- 0305 16 Sep, 2017 Other chronic pain G89.29 [facility] [address], [place] [address] 5807 13 Sep, 2017 Other iron deficiency anemia D50.8 [facility] [address] [address]- 5119 12 Sep, 2017 Other iron deficiency anemia D50.8 [facility] [id number] [place] [address] 93117- 7606 Sep, Iron deficiency anemia due to chronic blood loss D50.0 and Dysuria R30.0 [facility] [id number] [place] [address] 07998- 6083 Sep, Dysuria R30.0 [facility] [id number] [place] [address] 12809- 3738 Sep, Iron deficiency anemia due to chronic blood loss D50.0 [facility] [id number] [place] [address] 69653- 7899 Sep, [facility] [id number] [place] [address] 58253- 3939 Sep, Controlled type 2 diabetes mellitus without complication, without long-term current use of insulin E11.9 ; Leg cramps R25.2 ; Low back pain M54.5 and Other chronic pain G89.29 [facility] [id number] [place] [address] 18143- 9495 Sep, Controlled type 2 diabetes mellitus without complication, without long-term current use of insulin E11.9 ; Low back pain M54.5 ; Other chronic pain G89.29 and Leg cramps R25.2 [facility] [id number] [place] [address] 25145- 2468 Aug, Other chronic pain G89.29 [facility] [id number] [place] [address] 46002- 5460 Jul, Other chronic pain G89.29 [facility] [id number] [place] [address] 56836- 2318 Jul, Pneumonia of left lower lobe due to infectious organism J18.1 [facility] [id number] [place] [address] 58430 -0585 Jul, Dysuria R30.0 ; Cough in adult patient R05 and Pneumonia of left lower lobe due to infectious organism J18.1 [facility] [id number], [place] [address] 08 Jul, 2017 [facility] [address], [place] [address]- 1044 Jun, Other chronic pain G89.29 [facility] [address], [place] [address]- 4492 Jun, [facility] [address] [place] [address] 20764- 1803 Jun, Diabetes type 2, controlled E11.9 ; Back muscle spasm M62.830 and Other chronic pain G89.29 [facility] [id number] [place] [address] 21583- 6612 Jun, Screening breast examination Z12.31 [facility] [id number] [place] [address] 21042- 8477 May, Other chronic pain G89.29 [facility] [id number] [place] [address] 36172- 8016 May, [facility] [id number] [place] [address] 62234- 6616 May, UTI (urinary tract infection) N39.0 [facility] [address], [place] [address]- 0039 04 May, 2017 Dysuria R30.0 [facility] [id number] [place] [address] 48659- 6557 04 May, 2017 Dysuria R30.0 [facility] [address], [place] [address]- 2201 04 May, 2017 Diabetes type 2, controlled E11.9 ; 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 and Other chronic pain G89.29 [facility] [address], [place] [address]- 4097 Apr, Diabetes type 2, controlled E11.9 [facility] [address], [place] [address] Mar, Paronychia of great toe, right L03.031 and Dysuria R30.0 [facility] [id number] [place] [address] 50792- 1618 09 Mar, 2017 Diabetes type 2, controlled E11.9 [facility] [id number] [place] [address] 27387- 8933 28 Feb, 2017 Diabetes type 2, controlled E11.9 [facility] [address] [place] [address] [id number] 13 Feb, 2017 Dental examination Z01.20 [facility] [id number] [place] [address] 50951- 9218 11 Feb, 2017 Diabetes type 2, controlled E11.9 [facility] [id number] [place] [address] 75414- 1841 07 Feb, 2017 Diabetes type 2, controlled E11.9 [facility] [id number] [place] [address] 78928- 4260 Jan, Diabetes type 2, controlled E11.9 [facility] [id number] [place] [address] 35207- 3704 Dec, Diabetes type 2, controlled E11.9 [facility] [id number] [place] [address] 71329- 6096 Dec, Diabetes type 2, controlled E11.9 [facility] [id number] [place] [address] 96794- 5336 Nov, Diabetes type 2, controlled E11.9 [facility] [id number] [place] [address] 88343- 0375 Nov, Diabetes type 2, controlled E11.9 [facility] [id number] [place] [address] 06453- 5462 Nov, Diabetes type 2, controlled E11.9 [facility] [id number] [place] [address] 18940- 1205 Nov, Diabetes type 2, controlled E11.9 [facility] [address], [place] [address]- 4793 Nov, Diabetes type 2, controlled E11.9 [facility] [id number] [place] [address] 32554- 4254 Nov, Diabetes type 2, controlled E11.9 [facility] [id number] [place] [address] 11399- 0832 October, Pain in unspecified shoulder M25.519 [facility] [id number] [place] [address] 45418- 9124 October, Diabetes type 2, controlled E11.9 and Cellulitis of right lower extremity L03.115 [facility] [id number] [place] [address] 68308- 5927 October, Pain in unspecified shoulder M25.519 [facility] [id number] [place] [address] 40780- 9240 Sep, Diabetes type 2, controlled E11.9 [facility] [id number] [place] [address] 43369- 6175 Aug, Pain in unspecified shoulder M25.519 [facility] [id number] [place] [address] 98282- 6875 Aug, Diabetes type 2, controlled E11.9 [facility] [id number] [place] [address] 25065- 2353 Aug, Diabetes type 2, controlled E11.9 ; Dark urine R82.99 and Localized edema R60.0 [facility] [id number] [place] [address] 32469- 2036 Aug, Pain in unspecified shoulder M25.519 [facility] [id number] [place] [address] 07840- 8780 Jul, Pain in unspecified shoulder M25.519 [facility] [id number] [place] [address] 91938- 0263 06 Jul, 2016 [facility] [id number] [place] [address] 56655- 1223 02 Jul, 2016 Diabetes type 2, controlled E11.9 and 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 [facility] [address] [place] [address] 04062- 3659 Jun, Diabetes type 2, controlled E11.9 [facility] [address] 89249- 1467 Jun, Screening breast examination Z12.39 and Allergic rhinitis, unspecified allergic rhinitis trigger, unspecified rhinitis seasonality J30.9 [facility] [address] 76457- 7491 10 Jun, 2016 Pain in unspecified shoulder M25.[address] 74251- 0221 May, [facility] [address] 26906- 7363 May, Pain in unspecified shoulder M25.519 [facility] [place] [address] 09903- 8414 05 May, 2016 Thoracogenic scoliosis of thoracolumbar region M41.35 ; Low back pain M54.5 ; Other chronic pain G89.29 and Uncontrolled type 2 diabetes mellitus without complication, without long-term current use of insulin E11.65 [facility] [id number] [place] [address] 87333- 5354 28 Apr, 2016 [facility] [id number] [place] [address] 31138- 0979 Apr, [address] 70728- 9256 04 Apr, 2016 History of type 2 diabetes mellitus Z86.39 and Encounter for immunization Z23 [facility] [id number] [place] [address] 13660- 5802 Mar, [facility] [address] [facility] [id number] [address]- 2977 Mar, [facility] [address] [place] [address]- 3551 Feb, [facility] [address] [facility] [id number] [place] [address]- 6450 Jan, [facility] [address], [place] [address]- 5158 Jan, [facility] [id number], [place] [address]- 2145 Dec, [facility] [id number], [place] [address] -3113 Dec, Sore throat J02.9 and Allergic rhinitis, unspecified allergic rhinitis type J30.9 [facility] [address], [place] [address]- 5657 Dec, Diabetes type 2, controlled E11.9 [facility] [id number], [place] [address]- 1799 Nov, [facility] [address] [place] [address]- 4846 Nov, [facility] [id number], [place] [address]- 1140 October, [facility] [id number], [place] [address]- 4881 October, [facility] [id number], [place] [address]- 3119 Sep, [facility] [id number], [place] [address]- 4011 Aug, [facility] [id number] 5565 Aug, Diabetes type 2, controlled E11.9 ; UTI (urinary tract infection) N39.0 and Bacterial infection A49.9 [facility] [address] [place] [address] 44125- 3540 Jul, [facility] [id number] [place] [address] 19143- 6412 Jul, [facility] [id number] [place] [address] 65866- 2891 Jul, Pharyngitis J02.9 and Seborrheic keratoses L82.1 [facility] [address] [place] [address] 86436- 0598 Jun, [facility] [address] 81749- 7867 May, [facility] [address] [place] [address] 90803- 5674 May, Skin tags, multiple acquired L91.8 ; Seborrheic keratoses L82.1 and Diabetes type 2, controlled E11.9 [facility] [id number] [place] [address] 10849- 6170 May, Well woman exam Z01.419 ; Papanicolaou [...] Other fatigue R53.83 and Other hemorrhoids K64.8 [facility] [address] [place] [address] 59586- 0467 May, [facility] [id number] [place] [address] 72918- 1074 May, [facility] [address] [place] [address] 89253- 3008 Apr, Seborrheic keratosis L82.1 and Diabetes type 2, controlled E11.9 [facility] [id number] [place] [address] 88481- 6764 Apr, Seborrheic keratosis L82.1 and Diabetes type 2, controlled E11.9 [facility] [id number] [place] [address] 30302- 4277 Mar, [facility] [address] 33587- 7803 Mar, [facility] [id number] [place] [address] 74644- 0076 Mar, Nevoid hyperpigmentation L81.9 ; Encounter for immunization Z23 ; Skin tags, multiple acquired L91.8 and Seborrheic keratoses L82.1 [facility] [id number] [place] [address] 31878- 6469 Feb, [facility] [id number] [place] [address] 42658- 2924 Feb, [facility] [id number] [place] [address] 57696- 0535 Feb, [facility] [id number] [place] [address] 96101- 7678 Feb, Diabetes 250.00 ; Tinea corporis 110.5 and Shoulder pain, left 719.41 [facility] [id number] [place] [address] 05959- 9142 Jan, [facility] [id number] [place] [address] 99855- 8288 Dec, [facility] [address] 52550- 6098 Dec, [facility] [id number] [place] [address] 05464- 0522 Dec, Seborrheic keratoses 702.19 ; Diabetes 250.00 and Hypoglycemia 251.2 [facility] [address] [id number] [place] [address]- 4803 Nov, [facility] [address] [facility] [id number] [place] [address]- 0472 Nov, Abnormal mammogram 793.80 [facility] [address] [facility] [id number] [place] [address]- 2440 October, Diabetes 250.00 and Colon polyp 211.3 [facility] [address] [id number], [place] [address]- 0982 Sep, [facility] [address] [id number] [place] [address]- 0736 Sep, [facility] [address] [facility] [id number] [place] [address]- 7952 Sep, [facility] [address] [place] [address]- 1353 Aug, [facility] [address] [id number] [place] [address]- 6402 Aug, [facility] [address] [id number] [place] [address]- 3636 Jul, [facility] [address] [facility] [id number] [place] [address]- 3976 Jul, [facility] [id number], [place] [address]- 9278 Jun, [facility] [id number] [place] [address]- 1374 Jun, [facility] [address] [id number] [place] [address]- 2522 Jun, [facility] [address] [facility] [id number] [place] 2969 Jun, [facility] [id number] [place] [address]- 6976 Jun, [facility] [place] [facility] [address] [id number] [place] [address]- 8758 Jun, [facility] [place] [facility] [address] [id number] [place] [address]- 0141 May, [facility] [place] [facility] [address] [id number] [place] [address]- 4238 May, [facility] [place] [facility] [address] [id number] [place] [address]- 9899 Apr, [facility] [place] [facility] [address] [id number] [place] [address]- 5312 Apr, [facility] [place] [facility] [address] [id number] [place] [address]- 3618 Apr, [facility] [place] [facility] [address] [id number] [place] [address]- 5424 Apr, [facility] [place] [facility] [address] [id number] [place] [address]- 6406 Apr, [facility] [place] [facility] [address] [id number] [place] [address]- 4511 Apr, [facility] [place] [facility] [address] [id number] [place] [address]- 7827 Apr, [facility] [place] [facility] [address] [id number] [place] [address]- 9355 Apr, [facility] [place] [facility] [address] [id number] [place] [address]- 6559 Apr, [facility] [place] [facility] [address] [id number] [place] [address]- 2941 Apr, [facility] [place] [facility] [address] [id number] [place] [address]- 0526 Mar, [facility] [place] [facility] [address] [id number] [place] [address]- 5642 Mar, [facility] [place] [facility] [address] [id number] [place] [address]- 8778 Mar, [facility] [place] [facility] [address] [id number] [place] [address]- 3845 Mar, [facility] [place] [facility] [address] [id number] [place] [address]- 6302 Mar, [facility] [place] [facility] [address] [id number] [place] [address]- 2769 Mar, [facility] [place] [facility] [address] [id number] [place] [address]- 0123 Mar, [facility] [place] [facility] [address] [id number] [place] [address]- 6306 Mar, [facility] [place] [facility] [address] [id number] [place] [address]- 5186 Feb, [facility] [place] [facility] [address] [id number] [place] [address]- 1499 Feb, [facility] [place] [facility] [address] [id number] [place] [address]- 2067 Feb, [facility] [place] [facility] [address] [id number] [place] [address]- 1077 Feb, [facility] [place] [facility] [address] [id number] [place] [address]- 1711 Jan, [facility] [place] [facility] [address] [id number] [place] [address]- 6620 Jan, [facility] [place] [facility] [address] [id number], [place] [address] Dec, [facility] [place] [facility] [address] [id number] [place] [address] Dec, [facility] [place] [facility] [address] [id number], [place] [address] Nov, [facility] [place] [facility] [address] [id number] [place] [address] Nov, [facility] [place] [facility] [address] [id number] [place] [address] Nov, [facility] [place] [facility] [address] [id number] [place] [address] Nov, [facility] [place] [facility] [address] [id number] [place] [address] October, [facility] [place] [facility] [address] [id number] [place] [address] October, [facility] [place] [facility] [address] [id number] [place] [address] October, [facility] [place] [facility] [address] [id number] [place] October, [facility] [place] [facility] [address] [id number] [place] [address] October, [facility] [place] [facility] [address] [id number] [place] [address] October, [facility] [place] [facility] [address] [id number] [place] [address] October, [facility] [place] [facility] [address] [id number] [place] [address] October, [facility] [place] [facility] [address] [id number] [place] [address] Aug, [facility] [place] [facility] [address] [id number] [place] [address] Aug, [facility] [place] [facility] [address] [id number] [place] [address] Jul, [facility] [place] [facility] [address] [id number] [place] [address] Jul, [facility] [place] [facility] [address] [id number] [place] [address] Jul, [facility] [place] [facility] [address] [id number] [place] [address] Jul, [facility] [place] [facility] [address] [id number] [place] [address] Jul, [facility] [place] [facility] [address] [id number] [place] [address] Jun, [facility] [place] [facility] [address] [id number] [place] [address] Jun, [facility] [place] [facility] [address] [id number] [place] [address] May, [facility] [place] [facility] [address] [id number] [place] [address] May, [facility] [place] [facility] [address] [id number] [place] [address] Apr, [facility] [place] [facility] [address] [id number] [place] [address] Apr, [facility] [place] [facility] [address] [id number], [place] [address] Mar, [facility] [place] [facility] [address] [id number] [place] [address] Mar, [facility] [place] [facility] [address] [id number], [place] [address] Mar, [facility] [place] [facility] [address] [id number], [place] [address] Feb, [facility] [place] [facility] [address] [id number], [place] [address] 20 Feb, 2013 [facility] [place] [facility] [address] [id number] [place] [address] 17 Feb, 2013 [facility] [place] [facility] [address] [id number], [place] [address] 04 Feb, 2013 [facility] [place] [facility] [address] [id number], [place] [address] 04 Feb, 2013 [facility] [place] [facility] [address] [id number], [place] [address] Jan, [facility] [address] [id number] [place] [address] Dec, [facility] [place] [facility] [address] [id number] [place] [address] Nov, [facility] [place] [facility] [address] [id number] [place] [address] October, [facility] [place] [facility] [address] [id number] [place] [address] Sep, [facility] [place] [facility] [address] [id number] [place] [address] Aug, [facility] [place] [facility] [address] [id number] [place] [address] Aug, [facility] [address] [id number] [place] [address] Aug, [facility] [place] [facility] [address] [id number] [place] [address] May, [facility] [address] [id number] [place] [address] 09[address] May, [facility] [place] [facility] [address] [facility] [id number] [place] [address] May, [facility] [place] [facility] [address] [id number] [place] [address] May, [facility] [place] [facility] [address] [id number] [place] [address] 139[address] 11 May, 2012 [facility] [place] [facility] [address] [id number] [place] [address] 16 Apr, 2012 [facility] [place] [facility] [address] [id number] [place] [address] 16 Apr, 2012 [facility] [place] [facility] [address] [facility] [id number] [place] [address]- 9318 14 Apr, 2012 [facility] [place] [facility] [address] [id number] [place] [address] 359[address] 14 Apr, 2012 [facility] [place] [facility] [address] [id number] [place] [address] 3810 07 Apr, 2012 [facility] [place] [facility] [address] [id number] [place] [address] Apr, [facility] [place] [facility] [address] [id number] [place] [address] Apr, [facility] [place] [facility] [address] [id number] [place] [address] 3987 Apr, [facility] [place] [facility] [address] [id number] [place] [address] Mar, [facility] [place] [facility] [address] [id number] [place] [address] 3566 Mar, [facility] [place] [facility] [address] [id number] [place] [address] 9573 Mar, [facility] [place] [facility] [address] [id number] [place] [address]168 Mar, [facility] [place] [facility] [address] [id number] [place] [address] Mar, [facility] [place] [facility] [address] [facility] [id number] [place] [address]651 Mar, [facility] [place] [facility] [address] [id number] [place] [address] 360[address] Mar, [facility] [place] [facility] [address] [id number] [place] [address] 6[address] 28 Feb, 2012 [facility] [place] [facility] [address] [id number] [place] [address] 1716 24 Sep2011 [facility] [place] [facility] [address] [id number] [place] [address] 69[address] 20 Feb, 2012 [facility] [place] [facility] [address] [id number] [place] [address] 9[address] Feb, [facility] [place] [facility] [address] [id number] [place] [address] Jan, [facility] [place] [facility] [address] [id number] [place] [address]149 Jan, [facility] [place] [facility] [address] [id number] [place] [address] Jan, [facility] [place] [facility] [address] [id number] [place] [address] 2826 Jan, [facility] [place] [facility] [address] [id number] [place] [address] 2048 Jan, [facility] [place] [facility] [address] [id number] [place] [address] 2864 Jan, [facility] [place] [facility] [address] [id number] [place] [address]- 0946 Dec, [facility] [place] [facility] [address] [id number] [place] [address] 1040 Dec, [facility] [place] [facility] [address] [id number] [place] [address] Dec, [facility] [place] [facility] [address] [id number] [place] [address] Dec, [facility] [place] [facility] [address] [id number] [place] [address]- 1052 Dec, [facility] [place] [facility] [address] [id number] [place] [address]- 2848 Dec, [facility] [place] [facility] [address] [id number] [place] [address] 7028 Dec, [facility] [place] [facility] [address] [id number] [place] [address]- 3629 Dec, [facility] [place] [facility] [address] [id number] [place] [address] 0771 Nov, [facility] [place] [facility] [address] [id number] [place] [address]- 8236 11 Nov, 2011 [facility] [place] [facility] [address] [id number] [place] [address]- 9462 08 Nov, 2011 [facility] [place] [facility] [address] [id number] [place] [address]- 9856 07 Nov, 2011 [facility] [place] [facility] [address] [id number] [place] [address] 8236 October, [facility] [place] [facility] [address] [id number] [place] [address]- 8626 October, [facility] [place] [facility] [address] [id number] [place] [address] 2948 Sep, [facility] [place] [facility] [address] [id number] [place] [address] 9806 Sep, [facility] [place] [facility] [address] [id number] [place] [address]- 8091 Aug, [facility] [place] [facility] [address] [id number] [place] [address]- 6518 16 Aug, 2011 [facility] [place] [facility] [address] [id number] [place] [address]- 8305 Aug, [facility] [place] [facility] [address] [facility] [id number] [place] [address]- 6597 Aug, [facility] [place] [facility] [address] [id number] [place] [address]- 1440 05 Aug, 2011 [facility] [place] [facility] [address] [id number] [place] [address]- 3548 08 Jul, 2011 [facility] [place] [facility] [address] [id number] [place] [address]- 9116 06 Jul, 2011 [facility] [place] [facility] [address] [id number] [place] [address]- 2546 Jul, [facility] [place] [facility] [address] [id number] [place] [address]- 8586 Jul, [facility] [address] [id number] [place] [address]- 2516 Jun, [facility] [place] [facility] [address] [id number] [place] [address]- 0110 Jun, [facility] [place] [facility] [address] [id number] [place] [address]- 4236 Jun, [facility] [place] [facility] [address] [id number] [place] [address]- 8769 Jun, [facility] [place] [facility] [address] [id number] [place] [address]- 3664 Jun, [facility] [place] [facility] [address] [id number] [place] [address]- 9904 May, [facility] [place] [facility] [address] [facility] [id number] [place] [address]- 4677 May, [facility] [place] [facility] [address] [id number], [place] [address]- 6555 May, [facility] [place] [facility] [address] [facility] [id number] [place] [address]- 6012 May, [facility] [place] [facility] [address] [facility] [id number], [place] [address]- [address]36 May, [facility] [place] [facility] [address] [facility] [id number], [place] [address]- 5839 May, [facility] [place] [facility] [address] [id number], [place] [address]- 7138 Apr, [facility] [place] [facility] [address] [id number], [place] [address]- 2559 Apr, [facility] [place] [facility] [address] [id number], [place] [address]- 9231 Mar, [facility] [place] [facility] [address] [id number], [place] [address]- 1276 Mar, [facility] [place] [facility] [address] [id number], [place] [address]- 7400 October, [facility] [id number], [place] [address] May, [facility] [id number], [place] [address] 4698 Apr, [facility] [id number], [place] [address] 3899 Jul, [facility] [id number] [place] [address]- 7653 May, [facility] [id number] [place] [address]- 4512 May, [facility] [id number] [place] [address]- 2468 May, [facility] [id number] [place] [address]- 3410 Apr, [facility] [id number], [place] [address]- 2302 Apr, [facility] [id number] [place] [address]- 1657 Mar, [facility] [id number], [place] [address]- 9555 Jan, [facility] [id number] [address] Nov, IMMUNIZATIONS No Known Immunizations SOCIAL HISTORY Never Assessed REASON FOR VISIT Lab (walk-in) PLAN OF CARE VITAL SIGNS MEDICATIONS Unknown Medications RESULTS No Results PROCEDURES Procedure Date Ordered Result Body Site LAB NOT BILLED BY [facility] September 30, 2017 Hemoglobin Test Send Out 0 dollar September 30, 2017 VENIPUNCT, ROUTINE* September 30, 2017 INSTRUCTIONS MEDICATIONS ADMINISTERED No Known Medications [...]
--- OUTSIDE RECORDS SUMMARY | 2018-02-19 21:28 | XMS REPORT ---
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 Name Role Phone BOOGIE ARAUJO Unavailable PROBLEMS Type Condition ICD9-CM Code ICE53-DZ Code Onset Dates Condition Status SNOMED Code Problem History of abnormal cervical Pap smear Z87.898 Active 329019097 Problem Thoracogenic scoliosis of thoracolumbar region M41.35 Active 03464681 Problem Uncontrolled type 2 diabetes mellitus without complication, without long-term current use of insulin E11.65 Active 340992495 Problem Diabetes type 2, controlled E11.9 Active 94306635 Problem Thyroid nodule E04.1 Active 934170613 Problem History of colon polyps Z86.010 Active 970124528 Problem Other iron deficiency anemia D50.8 Active 51217253 Problem Iron deficiency anemia due to chronic blood loss D50.0 Active 264599990 Problem Screening breast examination Z12.39 Active 445591528 Problem Allergic rhinitis, unspecified allergic rhinitis trigger, unspecified rhinitis seasonality J30.9 Active 78079846 Problem Controlled type 2 diabetes mellitus without complication, without long -term current use of insulin E11.9 Active 722980171 Problem Other chronic pain G89.29 Active 75670241 ALLERGIES No Information ENCOUNTERS Encounter Location Date Diagnosis [facility] [id number] [place] [address] 45233- 3616 Jan, [facility] [id number], [place] [address] 0817 Dec, Other chronic pain G89.29 [facility] [id number] [place] [address] 50090- 6516 Dec, Diabetes type 2, controlled E11.9 [facility] [id number] [address] 2478 Nov, Other chronic pain G89.29 [facility] [id number] [address] 4977 Nov, [facility] [id number] [place] [address] 99030- 3080 Nov, [facility] [address], [place] [address] 8411 October, Diabetes type 2, controlled E11.9 and Acute cystitis without hematuria N30.00 [facility] [address], [place] [address] 2469 October, [facility] [id number] [place] [address] 46892- 5565 October, [facility] [id number] [place] [address] 83805- 9164 October, [facility] [id number] [place] [address] 02989- 3204 October, Other chronic pain G89.29 [facility] [address] [address] 9139 Sep, Diabetes type 2, controlled E11.9 [facility] [address] [address] 9143 Sep, [facility] [address] [address]- 9943 Sep, Diabetes type 2, controlled E11.9 [facility] [address] [address] 4153 16 Sep, 2017 Other chronic pain G89.29 [facility] [address] [address]- 3766 13 Sep, 2017 Other iron deficiency anemia D50.8 [facility] [address], [place] [address]- 8606 12 Sep, 2017 Other iron deficiency anemia D50.8 [facility] [address] [place] [address] 11125- 6298 Sep, Iron deficiency anemia due to chronic blood loss D50.0 and Dysuria R30.0 [facility] [id number] [place] [address] 29464- 9739 Sep, Dysuria R30.0 [facility] [id number] [place] [address] 51409- 2629 Sep, Iron deficiency anemia due to chronic blood loss D50.0 [facility] [id number] [place] [address] 48093- 6132 Sep, [facility] [address] [place] [address] 28807- 2332 Sep, Controlled type 2 diabetes mellitus without complication, without long-term current use of insulin E11.9 ; Leg cramps R25.2 ; Low back pain M54.5 and Other chronic pain G89.29 [facility] [address] [place] [address] 27069- 3849 Sep, Controlled type 2 diabetes mellitus without complication, without long-term current use of insulin E11.9 ; Low back pain M54.5 ; Other chronic pain G89.29 and Leg cramps R25.2 [facility] [id number] [place] [address] 52011- 9186 Aug, Other chronic pain G89.29 [facility] [id number] [place] [address] 65564- 2880 Jul, Other chronic pain G89.29 [facility] [id number] [place] [address] 33743- 1865 Jul, Pneumonia of left lower lobe due to infectious organism J18.1 [facility] [id number] [place] [address] 39296 -3845 Jul, Dysuria R30.0 ; Cough in adult patient R05 and Pneumonia of left lower lobe due to infectious organism J18.1 [facility] [id number] [address]- 8998 08 Jul, 2017 [facility] [address], [place] [address]- 2771 Jun, Other chronic pain G89.29 [facility] [address], [place] [address]- 6374 Jun, [facility] [address] [place] [address] 35345- 5484 Jun, Diabetes type 2, controlled E11.9 ; Back muscle spasm M62.830 and Other chronic pain G89.29 [facility] [id number] [place] [address] 34118- 3948 Jun, Screening breast examination Z12.31 [facility] [address] [place] [address] 72972- 6430 May, Other chronic pain G89.29 [facility] [address] [place] [address] 83423- 6004 May, [facility] [address] [place] [address] 40361- 3248 May, UTI (urinary tract infection) N39.0 [facility] [address], [place] [address]- 3460 04 May, 2017 Dysuria R30.0 [facility] [address] [place] [address] 04203- 8658 04 May, 2017 Dysuria R30.0 [facility] [address], [place] [address]- 9029 04 May, 2017 Diabetes type 2, controlled E11.9 ; 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 [address], [place] [address] Mar, Paronychia of great toe, right L03.031 and Dysuria R30.0 [facility] [id number] [place] [address] 50157- 2156 09 Mar, 2017 Diabetes type 2, controlled E11.9 [facility] [address] [place] [address] 28233- 9447 28 Feb, 2017 Diabetes type 2, controlled E11.9 [facility] [address] [place] [address] [id number] 13 Feb, 2017 Dental examination Z01.20 [facility] [id number] [place] [address] 88442- 4379 11 Feb, 2017 Diabetes type 2, controlled E11.9 [facility] [id number] [place] [address] 84386- 7301 07 Feb, 2017 Diabetes type 2, controlled E11.9 [facility] [id number] [place] [address] 83388- 5268 Jan, Diabetes type 2, controlled E11.9 [facility] [id number] [place] [address] 76573- 0650 Dec, Diabetes type 2, controlled E11.9 [facility] [id number] [place] [address] 06781- 0098 Dec, Diabetes type 2, controlled E11.9 [facility] [id number] [place] [address] 80005- 7053 Nov, Diabetes type 2, controlled E11.9 [facility] [address] [place] [address] 43688- 4799 Nov, Diabetes type 2, controlled E11.9 [facility] [id number] [place] [address] 45207- 4020 Nov, Diabetes type 2, controlled E11.9 [facility] [address] [place] [address] 82532- 5293 Nov, Diabetes type 2, controlled E11.9 [facility] [address], [place] [address]- 3906 Nov, Diabetes type 2, controlled E11.9 [facility] [address] [place] [address] 89744- 9688 Nov, Diabetes type 2, controlled E11.9 [facility] [id number] [place] [address] 33662- 4926 October, Pain in unspecified shoulder M25.519 [facility] [id number] [place] [address] 60095- 0501 October, Diabetes type 2, controlled E11.9 and Cellulitis of right lower extremity L03.115 [facility] [id number] [place] [address] 04025- 0277 October, Pain in unspecified shoulder M25.519 [facility] [id number] [place] [address] 28748- 0376 Sep, Diabetes type 2, controlled E11.9 [facility] [id number] [place] [address] 21387- 7383 Aug, Pain in unspecified shoulder M25.519 [facility] [id number] [place] [address] 27355- 8587 Aug, Diabetes type 2, controlled E11.9 [facility] [id number] [place] [address] 95047- 0593 Aug, Diabetes type 2, controlled E11.9 ; Dark urine R82.99 and Localized edema R60.0 [facility] [id number] [place] [address] 04619- 6824 Aug, Pain in unspecified shoulder M25.519 [facility] [id number] [place] [address] 63003- 8022 Jul, Pain in unspecified shoulder M25.519 [facility] [id number] [place] [address] 04419- 5619 06 Jul, 2016 [facility] [id number] [place] [address] 60489- 6966 02 Jul, 2016 Diabetes 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, 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519 [facility] [address] 59596- 1910 05 May, 2016 Thoracogenic scoliosis of thoracolumbar region M41.35 ; Low back pain M54.5 ; Other chronic pain G89.29 and Uncontrolled type 2 diabetes mellitus without complication, without long-term current use of insulin E11.65 [facility] [id number] [place] [address] 39342- 3388 28 Apr, 2016 [facility] [id number] [place] [address] 82911- 3460 Apr, [address] 04993- 3812 04 Apr, 2016 History of type 2 diabetes mellitus Z86.39 and Encounter for immunization Z23 [facility] [id number] [place] [address] 70028- 7877 Mar, [facility] [address] [facility] [id number] [address]- 9417 Mar, [facility] [address] [place] [address]- 7708 Feb, [facility] [address] [facility] [id number] [place] [address]- 7358 Jan, [facility] [address], [place] [address]- 9707 Jan, [facility] [id number], [place] [address]- 3412 Dec, [facility] [id number], [place] [address] -9414 Dec, Sore throat J02.9 and Allergic rhinitis, unspecified allergic rhinitis type J30.9 [facility] [address], [place] [address]- 2375 Dec, Diabetes type 2, controlled E11.9 [facility] [id number], [place] [address]- 9871 Nov, [facility] [address] [place] [address]- 9120 Nov, [facility] [id number], [place] [address]- 9284 October, [facility] [id number], [place] [address]- 5068 October, [facility] [id number], [place] [address]- 2987 Sep, [facility] [id number], [place] [address]- 5311 Aug, [facility] [id number] 8019 Aug, Diabetes type 2, controlled E11.9 ; UTI (urinary tract infection) N39.0 and Bacterial infection A49.9 [facility] [address] [place] [address] 33765- 0915 Jul, [facility] [id number] [place] [address] 55324- 6628 Jul, [facility] [id number] [place] [address] 21191- 8300 Jul, Pharyngitis J02.9 and Seborrheic keratoses L82.1 [facility] [id number] [place] [address] 88273- 5662 Jun, [facility] [address] 67762- 7627 May, [facility] [id number] [place] [address] 88033- 7095 May, Skin tags, multiple acquired L91.8 ; Seborrheic keratoses L82.1 and Diabetes type 2, controlled E11.9 [facility] [id number] [place] [address] 34371- 7093 May, Well woman exam Z01.419 ; Papanicolaou [...] Other fatigue R53.83 and Other hemorrhoids K64.8 [facility] [id number] [place] [address] 98777- 9974 May, [facility] [id number] [place] [address] 81768- 2055 May, [facility] [id number] [place] [address] 66527- 4420 Apr, Seborrheic keratosis L82.1 and Diabetes type 2, controlled E11.9 [facility] [id number] [place] [address] 05761- 4296 Apr, Seborrheic keratosis L82.1 and Diabetes type 2, controlled E11.9 [facility] [id number] [place] [address] 00585- 1890 Mar, [facility] [address] 32355- 1444 Mar, [facility] [id number] [place] [address] 65699- 9511 Mar, Nevoid hyperpigmentation L81.9 ; Encounter for immunization Z23 ; Skin tags, multiple acquired L91.8 and Seborrheic keratoses L82.1 [facility] [id number] [place] [address] 98906- 3014 Feb, [facility] [id number] [place] [address] 73702- 7238 Feb, [facility] [id number] [place] [address] 75086- 5623 Feb, [facility] [id number] [place] [address] 00804- 2541 Feb, Diabetes 250.00 ; Tinea corporis 110.5 and Shoulder pain, left 719.41 [facility] [id number] [place] [address] 04093- 4879 Jan, [facility] [id number] [place] [address] 19376- 6653 Dec, [facility] [address] 96814- 9627 Dec, [facility] [id number] [place] [address] 98645- 9671 Dec, Seborrheic keratoses 702.19 ; Diabetes 250.00 and Hypoglycemia 251.2 [facility] [address] [id number] [place] [address]- 1643 Nov, [facility] [address] [facility] [id number] [place] [address]- 6759 Nov, Abnormal mammogram 793.80 [facility] [address] [facility] [id number] [place] [address]- 3853 October, Diabetes 250.00 and Colon polyp 211.3 [facility] [address] [id number], [place] [address]- 2715 Sep, [facility] [address] [id number] [place] [address]- 9400 Sep, [facility] [address] [facility] [id number] [place] [address]- 7513 Sep, [facility] [address] [place] [address]- 2561 Aug, [facility] [address] [id number] [place] [address]- 6606 Aug, [facility] [address] [id number] [place] [address]- 8955 Jul, [facility] [address] [facility] [id number] [place] [address]- 9770 Jul, [facility] [id number] [address]- 6651 Jun, [facility] [id number] [place] [address]- 8201 Jun, [facility] [address] [id number] [place] [address]- 1459 Jun, [facility] [address] [facility] [id number] [place] 9388 Jun, [facility] [id number] [place] [address]- 2436 Jun, [facility] [place] [facility] [address] [id number] [place] [address]- 5015 Jun, [facility] [place] [facility] [address] [id number] [place] [address]- 8169 May, [facility] [place] [facility] [address] [id number] [place] [address]- 1067 May, [facility] [place] [facility] [address] [id number] [place] [address]- 5236 Apr, [facility] [place] [facility] [address] [id number] [place] [address]- 4178 Apr, [facility] [place] [facility] [address] [id number] [place] [address]- 1544 Apr, [facility] [place] [facility] [address] [id number] [place] [address]- 5429 Apr, [facility] [place] [facility] [address] [id number] [place] [address]- 4458 Apr, [facility] [place] [facility] [address] [id number] [place] [address]- 1005 Apr, [facility] [place] [facility] [address] [id number] [place] [address]- 2947 Apr, [facility] [place] [facility] [address] [id number] [place] [address]- 5094 Apr, [facility] [place] [facility] [address] [id number] [place] [address]- 8581 Apr, [facility] [place] [facility] [address] [id number] [place] [address]- 2641 Apr, [facility] [place] [facility] [address] [id number] [place] [address]- 7643 Mar, [facility] [place] [facility] [address] [id number] [place] [address]- 9151 Mar, [facility] [place] [facility] [address] [id number] [place] [address]- 5701 Mar, [facility] [place] [facility] [address] [id number] [place] [address]- 4608 Mar, [facility] [place] [facility] [address] [id number] [place] [address]- 6795 Mar, [facility] [place] [facility] [address] [id number] [place] [address]- 0329 Mar, [facility] [place] [facility] [address] [id number] [place] [address]- 6190 Mar, [facility] [place] [facility] [address] [id number] [place] [address]- 4431 Mar, [facility] [place] [facility] [address] [id number] [place] [address]- 4485 Feb, [facility] [place] [facility] [address] [id number] [place] [address]- 0358 Feb, [facility] [place] [facility] [address] [id number] [place] [address]- 1106 Feb, [facility] [place] [facility] [address] [id number] [place] [address]- 5891 Feb, [facility] [place] [facility] [address] [id number] [place] [address]- 7681 Jan, [facility] [place] [facility] [address] [id number] [place] [address]- 6144 Jan, [facility] [place] [facility] [address] [id number], [place] [address]- 7634 Dec, [facility] [place] [facility] [address] [id number] [place] [address]- 6824 Dec, [facility] [place] [facility] [address] [id number], [place] [address]- 7525 Nov, [facility] [place] [facility] [address] [id number] [place] [address]- 2105 Nov, [facility] [place] [facility] [address] [id number] [place] [address]- 7692 Nov, [facility] [place] [facility] [address] [id number] [place] [address]- 4810 Nov, [facility] [place] [facility] [address] [id number] [place] [address]- 4408 October, [facility] [place] [facility] [address] [id number] [place] [address]- 0244 October, [facility] [place] [facility] [address] [id number] [place] [address]- 1422 October, [facility] [place] [facility] [address] [id number] [place] 6867 October, [facility] [place] [facility] [address] [id number] [place] [address]- 8950 October, [facility] [place] [facility] [address] [id number] [place] [address] October, [facility] [place] [facility] [address] [id number] [place] [address] October, [facility] [place] [facility] [address] [id number] [place] [address] October, [facility] [place] [facility] [address] [id number] [place] [address] Aug, [facility] [place] [facility] [address] [id number] [place] [address] Aug, [facility] [place] [facility] [address] [id number] [place] [address] Jul, [facility] [place] [facility] [address] [id number] [place] [address] Jul, [facility] [place] [facility] [address] [id number] [place] [address] Jul, [facility] [place] [facility] [address] [id number] [place] [address] Jul, [facility] [place] [facility] [address] [id number] [place] [address] Jul, [facility] [place] [facility] [address] [id number] [place] [address] Jun, [facility] [place] [facility] [address] [id number] [place] [address] Jun, [facility] [place] [facility] [address] [id number] [place] [address] May, [facility] [place] [facility] [address] [id number] [place] [address] May, [facility] [place] [facility] [address] [id number] [place] [address] Apr, [facility] [place] [facility] [address] [id number] [place] [address] Apr, [facility] [place] [facility] [address] [id number], [place] [address] Mar, [facility] [place] [facility] [address] [id number] [place] [address] Mar, [facility] [place] [facility] [address] [id number], [place] [address] Mar, [facility] [place] [facility] [address] [id number], [place] [address] Feb, [facility] [place] [facility] [address] [id number], [place] [address] 20 Feb, 2013 [facility] [place] [facility] [address] [id number] [place] [address] 17 Feb, 2013 [facility] [place] [facility] [address] [id number], [place] [address] 04 Feb, 2013 [facility] [place] [facility] [address] [id number], [place] [address] 04 Feb, 2013 [facility] [place] [facility] [address] [id number], [place] [address] Jan, [facility] [address] [id number] [place] [address] Dec, [facility] [place] [facility] [address] [id number] [place] [address] Nov, [facility] [place] [facility] [address] [id number] [place] [address] October, [facility] [place] [facility] [address] [id number] [place] [address] Sep, [facility] [place] [facility] [address] [id number] [place] [address] Aug, [facility] [place] [facility] [address] [id number] [place] [address] Aug, [facility] [address] [id number] [place] [address] Aug, [facility] [place] [facility] [address] [id number] [place] [address] May, [facility] [address] [id number] [place] [address] May, [facility] [place] [facility] [address] [facility] [id number] [place] [address] May, [facility] [place] [facility] [address] [id number] [place] [address] May, [facility] [place] [facility] [address] [id number] [place] [address] 11 May, 2012 [facility] [place] [facility] [address] [id number] [place] [address] 16 Apr, 2012 [facility] [place] [facility] [address] [id number] [place] [address] 16 Apr, 2012 [facility] [place] [facility] [address] [facility] [id number] [place] [address] 7967 14 Apr, 2012 [facility] [place] [facility] [address] [id number] [place] [address] 14 Apr, 2012 [facility] [place] [facility] [address] [id number] [place] [address] 07 Apr, 2012 [facility] [place] [facility] [address] [id number] [place] [address] Apr, [facility] [place] [facility] [address] [id number] [place] [address] Apr, [facility] [place] [facility] [address] [id number] [place] [address] Apr, [facility] [place] [facility] [address] [id number] [place] [address] Mar, [facility] [place] [facility] [address] [id number] [place] [address] Mar, [facility] [place] [facility] [address] [id number] [place] [address]666 Mar, [facility] [place] [facility] [address] [id number] [place] [address] 0[address] Mar, [facility] [place] [facility] [address] [id number] [place] [address] 1381 Mar, [facility] [place] [facility] [address] [facility] [id number] [place] [address] 8694 Mar, [facility] [place] [facility] [address] [id number] [place] [address] 7953 Mar, [facility] [place] [facility] [address] [id number] [place] [address] 4699 28 Feb, 2012 [facility] [place] [facility] [address] [id number] [place] [address] 36[address] 24 Sep2011 [facility] [place] [facility] [address] [id number] [place] [address] 20 Feb, 2012 [facility] [place] [facility] [address] [id number] [place] [address] Feb, [facility] [place] [facility] [address] [id number] [place] [address] Jan, [facility] [place] [facility] [address] [id number] [place] [address] 9269 Jan, [facility] [place] [facility] [address] [id number] [place] [address] 9547 Jan, [facility] [place] [facility] [address] [id number] [place] [address] Jan, [facility] [place] [facility] [address] [id number] [place] [address] 9196 Jan, [facility] [place] [facility] [address] [id number] [place] [address] 7648 Jan, [facility] [place] [facility] [address] [id number] [place] [address] 3743 Dec, [facility] [place] [facility] [address] [id number] [place] [address] 5945 Dec, [facility] [place] [facility] [address] [id number] [place] [address] 1100 Dec, [facility] [place] [facility] [address] [id number] [place] [address] 1076 Dec, [facility] [place] [facility] [address] [id number] [place] [address] 2770 Dec, [facility] [place] [facility] [address] [id number] [place] [address] Dec, [facility] [place] [facility] [address] [id number] [place] [address] 2046 Dec, [facility] [place] [facility] [address] [id number] [place] [address] 0357 Dec, [facility] [place] [facility] [address] [id number] [place] [address] 2727 Nov, [facility] [place] [facility] [address] [id number] [place] [address] 7579 11 Nov, 2011 [facility] [place] [facility] [address] [id number] [place] [address] 9515 08 Nov, 2011 [facility] [place] [facility] [address] [id number] [place] [address]- 4636 07 Nov, 2011 [facility] [place] [facility] [address] [id number] [place] [address]- 2086 October, [facility] [place] [facility] [address] [id number] [place] [address] 2296 October, [facility] [place] [facility] [address] [id number] [place] [address] 2381 Sep, [facility] [place] [facility] [address] [id number] [place] [address] 6[address] Sep, [facility] [place] [facility] [address] [id number] [place] [address] 6[address] Aug, [facility] [place] [facility] [address] [id number] [place] [address] 6302 16 Aug, 2011 [facility] [place] [facility] [address] [id number] [place] [address]- 2765 Aug, [facility] [place] [facility] [address] [facility] [id number] [place] [address] 9339 Aug, [facility] [place] [facility] [address] [id number] [place] [address]- 5217 05 Aug, 2011 [facility] [place] [facility] [address] [id number] [place] [address]- 7978 08 Jul, 2011 [facility] [place] [facility] [address] [id number] [place] [address]- 3676 06 Jul, 2011 [facility] [place] [facility] [address] [id number] [place] [address] 2546 Jul, [facility] [place] [facility] [address] [id number] [place] [address]- 3566 Jul, [facility] [address] [id number] [place] [address] 3796 Jun, [facility] [place] [facility] [address] [id number] [place] [address]- 5452 Jun, [facility] [place] [facility] [address] [id number] [place] [address] 7538 Jun, [facility] [place] [facility] [address] [id number] [place] [address]- 8632 Jun, [facility] [place] [facility] [address] [id number] [place] [address]- 3741 Jun, [facility] [place] [facility] [address] [id number] [place] [address]- 9737 May, [facility] [place] [facility] [address] [facility] [id number] [place] [address]- 3768 May, [facility] [place] [facility] [address] [id number], [place] [address] 3583 May, [facility] [place] [facility] [address] [facility] [id number] [place] [address]- 8083 May, [facility] [place] [facility] [address] [facility] [id number], [place] [address]- 7680 May, [facility] [place] [facility] [address] [facility] [id number], [place] [address]- [address]241 May, [facility] [place] [facility] [address] [id number], [place] [address]- 2657 Apr, [facility] [place] [facility] [address] [id number], [place] [address]- 6434 Apr, [facility] [place] [facility] [address] [id number], [place] [address]- 0957 Mar, [facility] [place] [facility] [address] [id number], [place] [address]- 8044 Mar, [facility] [place] [facility] [address] [id number], [place] [address]686 October, [facility] [id number] [address] May, [facility] [id number] [place] [address] 2546 Apr, [facility] [id number] [place] [address]- 6996 Jul, [facility] [id number] [place] [address]- 5656 May, [facility] [id number] [place] [address]- 4486 May, [facility] [id number] [place] [address]- 2546 May, [facility] [id number] [place] [address]- 9536 Apr, [facility] [id number] [place] [address]- 4666 Apr, [facility] [id number] [place] [address]- 5204 Mar, [facility] [id number], [place] [address] Jan, [facility] [id number] [place] [address] 6[address] Nov, IMMUNIZATIONS No Known Immunizations SOCIAL HISTORY Never Assessed REASON FOR VISIT Lab (walk-in)--[facility] PLAN OF CARE VITAL SIGNS MEDICATIONS Medication Instructions Dosage Frequency Start Date End Date Duration Status Macrobid 100 mg Orally every 12 hrs 1 capsule with food 12h Sep, Sep, 7 day(s) Active RESULTS No Results PROCEDURES Procedure Date Ordered Result Body Site LAB NOT BILLED [facility] September 27, 2017 URINALYSIS, AUTO, W/O SCOPE September 27, 2017 VENIPUNCT, ROUTINE* September 27, 2017 INSTRUCTIONS MEDICATIONS ADMINISTERED No Known Medications [...]
--- OUTSIDE RECORDS SUMMARY | 2018-02-19 21:29 | XMS REPORT ---
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 Name Role Phone BOOGIE ARAUJO Unavailable PROBLEMS Type Condition ICD9-CM Code XOH41-XH Code Onset Dates Condition Status SNOMED Code Problem History of abnormal cervical Pap smear Z87.898 Active 625888375 Problem Thoracogenic scoliosis of thoracolumbar region M41.35 Active 31534565 Problem Uncontrolled type 2 diabetes mellitus without complication, without long-term current use of insulin E11.65 Active 607793122 Problem Diabetes type 2, controlled E11.9 Active 19288652 Problem Thyroid nodule E04.1 Active 371168789 Problem History of colon polyps Z86.010 Active 586283873 Problem Other iron deficiency anemia D50.8 Active 35032862 Problem Iron deficiency anemia due to chronic blood loss D50.0 Active 200588636 Problem Screening breast examination Z12.39 Active 093250088 Problem Allergic rhinitis, unspecified allergic rhinitis trigger, unspecified rhinitis seasonality J30.9 Active 03905140 Problem Controlled type 2 diabetes mellitus without complication, without long -term current use of insulin E11.9 Active 156155221 Problem Other chronic pain G89.29 Active 95094912 ALLERGIES No Information ENCOUNTERS Encounter Location Date Diagnosis [facility] [id number] [place] [address] 09516- 8496 Jan, [facility] [id number] [address] 3115 Dec, Other chronic pain G89.29 [facility] [id number] [place] [address] 04104- 7480 Dec, Diabetes type 2, controlled E11.9 [facility] [id number] [address] 6803 Nov, Other chronic pain G89.29 [facility] [id number] [address] 2293 Nov, [facility] [id number] [place] [address] 01738- 1970 Nov, [facility] [address] [address] 5793 October, Diabetes type 2, controlled E11.9 and Acute cystitis without hematuria N30.00 [facility] [address] [address] 8362 October, [facility] [id number] [place] [address] 94376- 7075 October, [facility] [id number] [place] [address] 01431- 1479 October, [facility] [id number] [place] [address] 39966- 5962 October, Other chronic pain G89.29 [facility] [address] [address] 8247 Sep, Diabetes type 2, controlled E11.9 [facility] [address] [address]- 9332 Sep, [facility] [address] [address] 3439 Sep, Diabetes type 2, controlled E11.9 [facility] [address] [address]- 6618 16 Sep, 2017 Other chronic pain G89.29 [facility] [address] [address]- 2215 13 Sep, 2017 Other iron deficiency anemia D50.8 [facility] [address] [address]- 9677 12 Sep, 2017 Other iron deficiency anemia D50.8 [facility] [id number] [place] [address] 67099- 5564 Sep, Iron deficiency anemia due to chronic blood loss D50.0 and Dysuria R30.0 [facility] [id number] [place] [address] 87640- 3996 Sep, Dysuria R30.0 [facility] [id number] [place] [address] 49476- 3934 Sep, Iron deficiency anemia due to chronic blood loss D50.0 [facility] [id number] [place] [address] 88191- 1030 Sep, [facility] [id number] [place] [address] 80111- 0287 Sep, Controlled type 2 diabetes mellitus without complication, without long-term current use of insulin E11.9 ; Leg cramps R25.2 ; Low back pain M54.5 and Other chronic pain G89.29 [facility] [id number] [place] [address] 83377- 7059 Sep, Controlled type 2 diabetes mellitus without complication, without long-term current use of insulin E11.9 ; Low back pain M54.5 ; Other chronic pain G89.29 and Leg cramps R25.2 [facility] [id number] [place] [address] 13288- 7395 Aug, Other chronic pain G89.29 [facility] [id number] [place] [address] 45355- 0225 Jul, Other chronic pain G89.29 [facility] [id number] [place] [address] 59645- 2228 Jul, Pneumonia of left lower lobe due to infectious organism J18.1 [facility] [id number] [place] [address] 76870 -1362 Jul, Dysuria R30.0 ; Cough in adult patient R05 and Pneumonia of left lower lobe due to infectious organism J18.1 [facility] [id number], [place] [address]- 9349 08 Jul, 2017 [facility] [address], [place] [address]- 6048 Jun, Other chronic pain G89.29 [facility] [address], [place] [address]- 4835 Jun, [facility] [id number] [place] [address] 11824- 4336 Jun, Diabetes type 2, controlled E11.9 ; Back muscle spasm M62.830 and Other chronic pain G89.29 [facility] [id number] [place] [address] 74531- 2530 Jun, Screening breast examination Z12.31 [facility] [id number] [place] [address] 46196- 8504 May, Other chronic pain G89.29 [facility] [id number] [place] [address] 61326- 3860 May, [facility] [id number] [place] [address] 98464- 9591 May, UTI (urinary tract infection) N39.0 [facility] [address], [place] [address]- 8977 04 May, 2017 Dysuria R30.0 [facility] [id number] [place] [address] 89315- 4734 04 May, 2017 Dysuria R30.0 [facility] [address], [place] [address]- 5781 04 May, 2017 Diabetes type 2, controlled E11.9 ; 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 and Other chronic pain G89.29 [facility] [address], [place] [address]- 3124 Apr, Diabetes type 2, controlled E11.9 [facility] [address], [place] [address] Mar, Paronychia of great toe, right L03.031 and Dysuria R30.0 [facility] [id number] [place] [address] 29941- 1271 09 Mar, 2017 Diabetes type 2, controlled E11.9 [facility] [id number] [place] [address] 18955- 6779 28 Feb, 2017 Diabetes type 2, controlled E11.9 [facility] [id number] [place] [address] [id number] 13 Feb, 2017 Dental examination Z01.20 [facility] [id number] [place] [address] 19316- 0410 11 Feb, 2017 Diabetes type 2, controlled E11.9 [facility] [id number] [place] [address] 95096- 2483 07 Feb, 2017 Diabetes type 2, controlled E11.9 [facility] [id number] [place] [address] 24963- 2878 Jan, Diabetes type 2, controlled E11.9 [facility] [id number] [place] [address] 37630- 3387 Dec, Diabetes type 2, controlled E11.9 [facility] [id number] [place] [address] 14466- 1481 Dec, Diabetes type 2, controlled E11.9 [facility] [id number] [place] [address] 76275- 8017 Nov, Diabetes type 2, controlled E11.9 [facility] [id number] [place] [address] 78936- 3327 Nov, Diabetes type 2, controlled E11.9 [facility] [id number] [place] [address] 12360- 0222 Nov, Diabetes type 2, controlled E11.9 [facility] [id number] [place] [address] 51569- 3679 Nov, Diabetes type 2, controlled E11.9 [facility] [address], [place] [address]- 0475 Nov, Diabetes type 2, controlled E11.9 [facility] [id number] [place] [address] 08253- 4417 Nov, Diabetes type 2, controlled E11.9 [facility] [id number] [place] [address] 20639- 3302 October, Pain in unspecified shoulder M25.519 [facility] [id number] [place] [address] 82671- 0226 October, Diabetes type 2, controlled E11.9 and Cellulitis of right lower extremity L03.115 [facility] [id number] [place] [address] 66336- 2893 October, Pain in unspecified shoulder M25.519 [facility] [id number] [place] [address] 81014- 6674 Sep, Diabetes type 2, controlled E11.9 [facility] [id number] [place] [address] 26325- 3287 Aug, Pain in unspecified shoulder M25.519 [facility] [id number] [place] [address] 52860- 6459 Aug, Diabetes type 2, controlled E11.9 [facility] [id number] [place] [address] 18384- 3477 Aug, Diabetes type 2, controlled E11.9 ; Dark urine R82.99 and Localized edema R60.0 [facility] [id number] [place] [address] 78149- 1935 Aug, Pain in unspecified shoulder M25.519 [facility] [id number] [place] [address] 56871- 9337 Jul, Pain in unspecified shoulder M25.519 [facility] [id number] [place] [address] 72119- 8732 06 Jul, 2016 [facility] [id number] [place] [address] 45131- 8812 02 Jul, 2016 Diabetes type 2, controlled E11.9 and 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 [facility] [address] [place] [address] 37206- 8145 Jun, Diabetes type 2, controlled E11.9 [facility] [address] 87396- 8527 Jun, Screening breast examination Z12.39 and Allergic rhinitis, unspecified allergic rhinitis trigger, unspecified rhinitis seasonality J30.9 [facility] [address] 00928- 9637 10 Jun, 2016 Pain in unspecified shoulder M25.[address] 73360- 9587 May, [place] [address] 59413- 2975 May, Pain in unspecified shoulder M25.519 [place] [address] 91752- 2562 05 May, 2016 Thoracogenic scoliosis of thoracolumbar region M41.35 ; Low back pain M54.5 ; Other chronic pain G89.29 and Uncontrolled type 2 diabetes mellitus without complication, without long-term current use of insulin E11.65 [facility] [id number] [place] [address] 72318- 6673 28 Apr, 2016 [facility] [id number] [place] [address] 79164- 4242 Apr, [address] 48730- 3187 04 Apr, 2016 History of type 2 diabetes mellitus Z86.39 and Encounter for immunization Z23 [facility] [id number] [place] [address] 09617- 0062 Mar, [facility] [address] [facility] [id number] [address]- 4594 Mar, [facility] [address] [place] [address]- 7143 Feb, [facility] [address] [facility] [id number] [place] [address]- 5198 Jan, [facility] [address], [place] [address]- 7909 Jan, [facility] [id number], [place] [address]- 9599 Dec, [facility] [id number], [place] [address] -8622 Dec, Sore throat J02.9 and Allergic rhinitis, unspecified allergic rhinitis type J30.9 [facility] [address], [place] [address]- 6269 Dec, Diabetes type 2, controlled E11.9 [facility] [id number], [place] [address]- 3945 Nov, [facility] [address] [place] [address]- 2885 Nov, [facility] [id number], [place] [address]- 1391 October, [facility] [id number] [address]- 2521 October, [facility] [id number], [place] [address]- 5371 Sep, [facility] [id number] [address]- 9651 Aug, [facility] [id number] 8162 Aug, Diabetes type 2, controlled E11.9 ; UTI (urinary tract infection) N39.0 and Bacterial infection A49.9 [facility] [address] [place] [address] 65340- 7504 Jul, [facility] [id number] [place] [address] 32469- 1133 Jul, [facility] [id number] [place] [address] 26578- 6891 Jul, Pharyngitis J02.9 and Seborrheic keratoses L82.1 [facility] [id number] [place] [address] 01026- 2029 Jun, [facility] [address] 09620- 5373 May, [facility] [id number] [place] [address] 48685- 3591 May, Skin tags, multiple acquired L91.8 ; Seborrheic keratoses L82.1 and Diabetes type 2, controlled E11.9 [facility] [id number] [place] [address] 12042- 8719 May, Well woman exam Z01.419 ; Papanicolaou [...] Other fatigue R53.83 and Other hemorrhoids K64.8 [facility] [address] [place] [address] 34439- 6148 May, [facility] [id number] [place] [address] 36163- 7324 May, [facility] [id number] [place] [address] 83908- 2143 Apr, Seborrheic keratosis L82.1 and Diabetes type 2, controlled E11.9 [facility] [id number] [place] [address] 36322- 9016 Apr, Seborrheic keratosis L82.1 and Diabetes type 2, controlled E11.9 [facility] [id number] [place] [address] 59429- 3032 Mar, [facility] [address] 08363- 1982 Mar, [facility] [id number] [place] [address] 28882- 9012 Mar, Nevoid hyperpigmentation L81.9 ; Encounter for immunization Z23 ; Skin tags, multiple acquired L91.8 and Seborrheic keratoses L82.1 [facility] [id number] [place] [address] 50393- 0798 Feb, [facility] [id number] [place] [address] 23669- 0612 Feb, [facility] [id number] [place] [address] 51603- 9143 Feb, [facility] [id number] [place] [address] 76717- 1687 Feb, Diabetes 250.00 ; Tinea corporis 110.5 and Shoulder pain, left 719.41 [facility] [id number] [place] [address] 23731- 2614 Jan, [facility] [id number] [place] [address] 81171- 4238 Dec, [facility] [address] 57791- 6485 Dec, [facility] [id number] [place] [address] 39952- 1779 Dec, Seborrheic keratoses 702.19 ; Diabetes 250.00 and Hypoglycemia 251.2 [facility] [address] [id number] [place] [address]- 2932 Nov, [facility] [address] [facility] [id number] [place] [address]- 8006 Nov, Abnormal mammogram 793.80 [facility] [address] [facility] [id number] [place] [address]- 1039 October, Diabetes 250.00 and Colon polyp 211.3 [facility] [address] [id number] [address]- 0670 Sep, [facility] [address] [id number] [place] [address]- 3366 Sep, [facility] [address] [facility] [id number] [place] [address]- 1169 Sep, [facility] [address] [place] [address]- 4259 Aug, [facility] [address] [id number] [place] [address]- 4587 Aug, [facility] [address] [id number] [place] [address]- 0998 Jul, [facility] [address] [facility] [id number] [place] [address]- 3160 Jul, [facility] [id number] [address]- 3956 Jun, [facility] [id number] [place] [address]- 3002 Jun, [facility] [address] [id number] [place] [address]- 5710 Jun, [facility] [address] [facility] [id number] [place] 9536 Jun, [facility] [id number] [place] [address]- 8446 Jun, [facility] [place] [facility] [address] [id number] [place] [address]- 9150 Jun, [facility] [place] [facility] [address] [id number] [place] [address]- 7688 May, [facility] [place] [facility] [address] [id number] [place] [address]- 5662 May, [facility] [place] [facility] [address] [id number] [place] [address]- 7132 Apr, [facility] [place] [facility] [address] [id number] [place] [address]- 8551 Apr, [facility] [place] [facility] [address] [id number] [place] [address]- 9150 Apr, [facility] [place] [facility] [address] [id number] [place] [address]- 0587 Apr, [facility] [place] [facility] [address] [id number] [place] [address]- 6644 Apr, [facility] [place] [facility] [address] [id number] [place] [address]- 4196 Apr, [facility] [place] [facility] [address] [id number] [place] [address]- 8055 Apr, [facility] [place] [facility] [address] [id number] [place] [address]- 6306 Apr, [facility] [place] [facility] [address] [id number] [place] [address]- 4457 Apr, [facility] [place] [facility] [address] [id number] [place] [address]- 9553 Apr, [facility] [place] [facility] [address] [id number] [place] [address]- 2639 Mar, [facility] [place] [facility] [address] [id number] [place] [address]- 5808 Mar, [facility] [place] [facility] [address] [id number] [place] [address]- 2769 Mar, [facility] [place] [facility] [address] [id number] [place] [address]- 7685 Mar, [facility] [place] [facility] [address] [id number] [place] [address]- 5419 Mar, [facility] [place] [facility] [address] [id number] [place] [address]- 6243 Mar, [facility] [place] [facility] [address] [id number] [place] [address]- 6156 Mar, [facility] [place] [facility] [address] [id number] [place] [address]- 6807 Mar, [facility] [place] [facility] [address] [id number] [place] [address]- 8085 Feb, [facility] [place] [facility] [address] [id number] [place] [address]- 6563 Feb, [facility] [place] [facility] [address] [id number] [place] [address]- 6048 Feb, [facility] [place] [facility] [address] [id number] [place] [address]- 2502 Feb, [facility] [place] [facility] [address] [id number] [place] [address]- 8411 Jan, [facility] [place] [facility] [address] [id number] [place] [address]- 0943 Jan, [facility] [place] [facility] [address] [id number] [address]- 6223 Dec, [facility] [place] [facility] [address] [id number] [place] [address]- 2932 Dec, [facility] [place] [facility] [address] [id number], [place] [address]- 0583 Nov, [facility] [place] [facility] [address] [id number] [place] [address]- 1276 Nov, [facility] [place] [facility] [address] [id number] [place] [address]- 2721 Nov, [facility] [place] [facility] [address] [id number] [place] [address]- 8[address] Nov, [facility] [place] [facility] [address] [id number] [place] [address] October, [facility] [place] [facility] [address] [id number] [place] [address] October, [facility] [place] [facility] [address] [id number] [place] [address] October, [facility] [place] [facility] [address] [id number] [place] [address] October, [facility] [place] [facility] [address] [id number] [place] [address] October, [facility] [place] [facility] [address] [id number] [place] [address] October, [facility] [place] [facility] [address] [id number] [place] [address] October, [facility] [place] [facility] [address] [id number] [place] [address] October, [facility] [place] [facility] [address] [id number] [place] [address] Aug, [facility] [place] [facility] [address] [id number] [place] [address] Aug, [facility] [place] [facility] [address] [id number] [place] [address] Jul, [facility] [place] [facility] [address] [id number] [place] [address] Jul, [facility] [place] [facility] [address] [id number] [place] [address] Jul, [facility] [place] [facility] [address] [id number] [place] [address] Jul, [facility] [place] [facility] [address] [id number] [place] [address] Jul, [facility] [place] [facility] [address] [id number] [place] [address] Jun, [facility] [place] [facility] [address] [id number] [place] [address] Jun, [facility] [place] [facility] [address] [id number] [place] [address] May, [facility] [place] [facility] [address] [id number] [place] [address] May, [facility] [place] [facility] [address] [id number] [place] [address] Apr, [facility] [place] [facility] [address] [id number] [place] [address] Apr, [facility] [place] [facility] [address] [id number], [place] [address] Mar, [facility] [place] [facility] [address] [id number] [place] [address] Mar, [facility] [place] [facility] [address] [id number], [place] [address] Mar, [facility] [place] [facility] [address] [id number], [place] [address] Feb, [facility] [place] [facility] [address] [id number], [place] [address] 20 Feb, 2013 [facility] [place] [facility] [address] [id number] [place] [address] 17 Feb, 2013 [facility] [place] [facility] [address] [id number], [place] [address] 04 Feb, 2013 [facility] [place] [facility] [address] [id number], [place] [address] 04 Feb, 2013 [facility] [place] [facility] [address] [id number], [place] [address] Jan, [facility] [address] [id number] [place] [address] Dec, [facility] [place] [facility] [address] [id number] [place] [address] Nov, [facility] [place] [facility] [address] [id number] [place] [address] October, [facility] [place] [facility] [address] [id number] [place] [address] Sep, [facility] [place] [facility] [address] [id number] [place] [address] Aug, [facility] [place] [facility] [address] [id number] [place] [address] Aug, [facility] [address] [id number] [place] [address] Aug, [facility] [place] [facility] [address] [id number] [place] [address] May, [facility] [address] [id number] [place] [address] May, [facility] [place] [facility] [address] [facility] [id number] [place] [address] May, [facility] [place] [facility] [address] [id number] [place] [address] May, [facility] [place] [facility] [address] [id number] [place] [address] 11 May, 2012 [facility] [place] [facility] [address] [id number] [place] [address] 16 Apr, 2012 [facility] [place] [facility] [address] [id number] [place] [address] 9737 16 Apr, 2012 [facility] [place] [facility] [address] [facility] [id number] [place] [address] 14 Apr, 2012 [facility] [place] [facility] [address] [id number] [place] [address] 14 Apr, 2012 [facility] [place] [facility] [address] [id number] [place] [address]377 07 Apr, 2012 [facility] [place] [facility] [address] [id number] [place] [address] Apr, [facility] [place] [facility] [address] [id number] [place] [address] Apr, [facility] [place] [facility] [address] [id number] [place] [address] Apr, [facility] [place] [facility] [address] [id number] [place] [address] Mar, [facility] [place] [facility] [address] [id number] [place] [address] 12[address] Mar, [facility] [place] [facility] [address] [id number] [place] [address] 7718 Mar, [facility] [place] [facility] [address] [id number] [place] [address] 8847 Mar, [facility] [place] [facility] [address] [id number] [place] [address] 7746 Mar, [facility] [place] [facility] [address] [facility] [id number] [place] [address] Mar, [facility] [place] [facility] [address] [id number] [place] [address] Mar, [facility] [place] [facility] [address] [id number] [place] [address] 9569 28 Feb, 2012 [facility] [place] [facility] [address] [id number] [place] [address] 24 Sep2011 [facility] [place] [facility] [address] [id number] [place] [address] 39[address] 20 Feb, 2012 [facility] [place] [facility] [address] [id number] [place] [address] Feb, [facility] [place] [facility] [address] [id number] [place] [address] Jan, [facility] [place] [facility] [address] [id number] [place] [address] Jan, [facility] [place] [facility] [address] [id number] [place] [address] Jan, [facility] [place] [facility] [address] [id number] [place] [address] 3209 Jan, [facility] [place] [facility] [address] [id number] [place] [address] 41[address] Jan, [facility] [place] [facility] [address] [id number] [place] [address] 16[address] Jan, [facility] [place] [facility] [address] [id number] [place] [address] Dec, [facility] [place] [facility] [address] [id number] [place] [address]146 Dec, [facility] [place] [facility] [address] [id number] [place] [address] Dec, [facility] [place] [facility] [address] [id number] [place] [address] 8[address] Dec, [facility] [place] [facility] [address] [id number] [place] [address] 4785 Dec, [facility] [place] [facility] [address] [id number] [place] [address] Dec, [facility] [place] [facility] [address] [id number] [place] [address] 9244 Dec, [facility] [place] [facility] [address] [id number] [place] [address] Dec, [facility] [place] [facility] [address] [id number] [place] [address] 9728 Nov, [facility] [place] [facility] [address] [id number] [place] [address] 11 Nov, 2011 [facility] [place] [facility] [address] [id number] [place] [address]- 7[address] 08 Nov, 2011 [facility] [place] [facility] [address] [id number] [place] [address] 07 Nov, 2011 [facility] [place] [facility] [address] [id number] [place] [address] October, [facility] [place] [facility] [address] [id number] [place] [address] October, [facility] [place] [facility] [address] [id number] [place] [address] Sep, [facility] [place] [facility] [address] [id number] [place] [address] Sep, [facility] [place] [facility] [address] [id number] [place] [address]139 Aug, [facility] [place] [facility] [address] [id number] [place] [address] 8199 16 Aug, 2011 [facility] [place] [facility] [address] [id number] [place] [address] 60[address] Aug, [facility] [place] [facility] [address] [facility] [id number] [place] [address] 4325 Aug, [facility] [place] [facility] [address] [id number] [place] [address]- 5720 05 Aug, 2011 [facility] [place] [facility] [address] [id number] [place] [address] 5734 08 Jul, 2011 [facility] [place] [facility] [address] [id number] [place] [address] 46[address] 06 Jul, 2011 [facility] [place] [facility] [address] [id number] [place] [address] 2546 Jul, [facility] [place] [facility] [address] [id number] [place] [address] 65[address] Jul, [facility] [address] [id number] [place] [address] 6426 Jun, [facility] [place] [facility] [address] [id number] [place] [address]- 0922 Jun, [facility] [place] [facility] [address] [id number] [place] [address]- 8305 Jun, [facility] [place] [facility] [address] [id number] [place] [address]- 0888 Jun, [facility] [place] [facility] [address] [id number] [place] [address]- 0960 Jun, [facility] [place] [facility] [address] [id number] [place] [address] 9930 May, [facility] [place] [facility] [address] [facility] [id number] [place] [address] 6740 May, [facility] [place] [facility] [address] [id number], [place] [address] May, [facility] [place] [facility] [address] [facility] [id number] [place] [address]- 7063 May, [facility] [place] [facility] [address] [facility] [id number], [place] [address]- 4577 May, [facility] [place] [facility] [address] [facility] [id number], [place] [address]- 480[address] May, [facility] [place] [facility] [address] [id number], [place] [address]- 1036 Apr, [facility] [place] [facility] [address] [id number], [place] [address]- 5650 Apr, [facility] [place] [facility] [address] [id number], [place] [address]- 45[address] Mar, [facility] [place] [facility] [address] [id number], [place] [address]- 6[address] Mar, [facility] [place] [facility] [address] [id number], [place] [address] October, [facility] [id number], [place] [address] May, [facility] [id number], [place] [address] Apr, [facility] [id number], [place] [address] 17[address] Jul, [facility] [id number] [place] [address]- [address]65 May, [facility] [id number] [place] [address]- 8038 May, [facility] [id number] [place] [address]- 3986 May, [facility] [id number] [place] [address]- 0194 Apr, [facility] [id number] [place] [address]- 4495 Apr, [facility] [id number] [place] [address] 3[address]- 2671 Mar, [facility] [id number], [place] [address]- [address] Jan, [facility] [id number], [place] [address] Nov, IMMUNIZATIONS No Known Immunizations SOCIAL HISTORY Never Assessed REASON FOR VISIT lab order PLAN OF CARE VITAL SIGNS MEDICATIONS Medication Instructions Dosage Frequency Start Date End Date Duration Status Ferrous Sulfate 325 (65 Fe) MG Orally Once a day 1 tablet 24h Sep, 90 days Active RESULTS No Results PROCEDURES No [...]
--- OUTSIDE RECORDS SUMMARY | 2018-02-19 21:29 | XMS REPORT ---
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 Role Phone BOOGIE ARAUJO Unavailable PROBLEMS Type Condition ICD9-CM Code ZEG88-KR Code Onset Dates Condition Status SNOMED Code Problem History of abnormal cervical Pap smear Z87.898 Active 687744706 Problem Thoracogenic scoliosis of thoracolumbar region M41.35 Active 95026130 Problem Uncontrolled type 2 diabetes mellitus without complication, without long-term current use of insulin E11.65 Active 445342506 Problem Diabetes type 2, controlled E11.9 Active 23648850 Problem Thyroid nodule E04.1 Active 329788272 Problem History of colon polyps Z86.010 Active 098226277 Problem Other iron deficiency anemia D50.8 Active 12393029 Problem Iron deficiency anemia due to chronic blood loss D50.0 Active 425578027 Problem Screening breast examination Z12.39 Active 333299488 Problem Allergic rhinitis, unspecified allergic rhinitis trigger, unspecified rhinitis seasonality J30.9 Active 88693565 Problem Controlled type 2 diabetes mellitus without complication, without long -term current use of insulin E11.9 Active 738007154 Problem Other chronic pain G89.29 Active 98062573 ALLERGIES No Information ENCOUNTERS Encounter Location Date Diagnosis [facility] [id number] [place] [address] 01654- 8955 Jan, [facility] [id number], [place] [address] 5844 Dec, Other chronic pain G89.29 [facility] [id number] [place] [address] 75988- 0027 Dec, Diabetes type 2, controlled E11.9 [facility] [id number], [place] [address] 6556 Nov, Other chronic pain G89.29 [facility] [id number], [place] [address] 1260 Nov, [facility] [id number] [place] [address] 83886- 9713 Nov, [facility] [address], [place] [address] 0877 October, Diabetes type 2, controlled E11.9 and Acute cystitis without hematuria N30.00 [facility] [address], [place] [address] 7107 October, [facility] [id number] [place] [address] 95175- 0989 October, [facility] [id number] [place] [address] 74931- 2346 October, [facility] [id number] [place] [address] 09721- 2276 October, Other chronic pain G89.29 [facility] [address], [place] [address] 1709 Sep, Diabetes type 2, controlled E11.9 [facility] [address], [place] [address]- 5508 Sep, [facility] [address], [place] [address] 2513 Sep, Diabetes type 2, controlled E11.9 [facility] [address], [place] [address]- 0814 16 Sep, 2017 Other chronic pain G89.29 [facility] [address], [place] [address] 2360 13 Sep, 2017 Other iron deficiency anemia D50.8 [facility] [address], [place] [address]- 4390 12 Sep, 2017 Other iron deficiency anemia D50.8 [facility] [id number] [place] [address] 39113- 2406 Sep, Iron deficiency anemia due to chronic blood loss D50.0 and Dysuria R30.0 [facility] [id number] [place] [address] 80861- 0489 Sep, Dysuria R30.0 [facility] [id number] [place] [address] 00694- 7011 Sep, Iron deficiency anemia due to chronic blood loss D50.0 [facility] [id number] [place] [address] 69761- 7947 Sep, [facility] [id number] [place] [address] 02659- 5369 Sep, Controlled type 2 diabetes mellitus without complication, without long-term current use of insulin E11.9 ; Leg cramps R25.2 ; Low back pain M54.5 and Other chronic pain G89.29 [facility] [address] [place] [address] 03044- 3959 Sep, Controlled type 2 diabetes mellitus without complication, without long-term current use of insulin E11.9 ; Low back pain M54.5 ; Other chronic pain G89.29 and Leg cramps R25.2 [facility] [id number] [place] [address] 58017- 1219 Aug, Other chronic pain G89.29 [facility] [id number] [place] [address] 67163- 8654 Jul, Other chronic pain G89.29 [facility] [id number] [place] [address] 52674- 0856 Jul, Pneumonia of left lower lobe due to infectious organism J18.1 [facility] [id number] [place] [address] 04597 -0597 Jul, Dysuria R30.0 ; Cough in adult patient R05 and Pneumonia of left lower lobe due to infectious organism J18.1 [facility] [id number], [place] [address]- 7282 08 Jul, 2017 [facility] [address], [place] [address]- 8479 Jun, Other chronic pain G89.29 [facility] [address], [place] [address]- 6888 Jun, [facility] [address] [place] [address] 67658- 4260 Jun, Diabetes type 2, controlled E11.9 ; Back muscle spasm M62.830 and Other chronic pain G89.29 [facility] [id number] [place] [address] 02548- 2244 Jun, Screening breast examination Z12.31 [facility] [address] [place] [address] 10795- 3295 May, Other chronic pain G89.29 [facility] [address] [place] [address] 41436- 6698 May, [facility] [address] [place] [address] 81728- 6117 May, UTI (urinary tract infection) N39.0 [facility] [address], [place] [address]- 4734 04 May, 2017 Dysuria R30.0 [facility] [address] [place] [address] 55494- 9567 04 May, 2017 Dysuria R30.0 [facility] [address], [place] [address]- 5640 04 May, 2017 Diabetes type 2, controlled E11.9 ; 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 and Other chronic pain G89.29 [facility] [address], [place] [address]- 1171 Apr, Diabetes type 2, controlled E11.9 [facility] [address], [place] [address] Mar, Paronychia of great toe, right L03.031 and Dysuria R30.0 [facility] [id number] [place] [address] 04355- 7306 09 Mar, 2017 Diabetes type 2, controlled E11.9 [facility] [address] [place] [address] 05281- 2001 28 Feb, 2017 Diabetes type 2, controlled E11.9 [facility] [address] [place] [address] 037520484 13 Feb, 2017 Dental examination Z01.20 [facility] [id number] [place] [address] 69228- 4816 11 Feb, 2017 Diabetes type 2, controlled E11.9 [facility] [id number] [place] [address] 53077- 0946 07 Feb, 2017 Diabetes type 2, controlled E11.9 [facility] [id number] [place] [address] 16207- 9191 Jan, Diabetes type 2, controlled E11.9 [facility] [id number] [place] [address] 03562- 4325 Dec, Diabetes type 2, controlled E11.9 [facility] [id number] [place] [address] 42382- 7137 Dec, Diabetes type 2, controlled E11.9 [facility] [id number] [place] [address] 20001- 5802 Nov, Diabetes type 2, controlled E11.9 [facility] [address] [place] [address] 32521- 4606 Nov, Diabetes type 2, controlled E11.9 [facility] [id number] [place] [address] 97795- 1647 Nov, Diabetes type 2, controlled E11.9 [facility] [address] [place] [address] 60776- 0877 Nov, Diabetes type 2, controlled E11.9 [facility] [address], [place] [address]- 0746 Nov, Diabetes type 2, controlled E11.9 [facility] [address] [place] [address] 95638- 5299 Nov, Diabetes type 2, controlled E11.9 [facility] [id number] [place] [address] 40724- 4655 October, Pain in unspecified shoulder M25.519 [facility] [id number] [place] [address] 24500- 8033 October, Diabetes type 2, controlled E11.9 and Cellulitis of right lower extremity L03.115 [facility] [id number] [place] [address] 70641- 6724 October, Pain in unspecified shoulder M25.519 [facility] [id number] [place] [address] 72607- 8190 Sep, Diabetes type 2, controlled E11.9 [facility] [id number] [place] [address] 37730- 9210 Aug, Pain in unspecified shoulder M25.519 [facility] [id number] [place] [address] 09049- 3909 Aug, Diabetes type 2, controlled E11.9 [facility] [id number] [place] [address] 15201- 1568 Aug, Diabetes type 2, controlled E11.9 ; Dark urine R82.99 and Localized edema R60.0 [facility] [id number] [place] [address] 01603- 4987 Aug, Pain in unspecified shoulder M25.519 [facility] [id number] [place] [address] 07050- 5370 Jul, Pain in unspecified shoulder M25.519 [facility] [id number] [place] [address] 54151- 4456 06 Jul, 2016 [facility] [id number] [place] [address] 74371- 2395 02 Jul, 2016 Diabetes type 2, controlled E11.9 and assisted current use of 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 Z79.891 [facility] [id number] [place] [address] 21248- 9220 Jun, Diabetes type 2, controlled E11.9 [facility] [address] 98937- 9339 Jun, Screening breast examination Z12.39 and Allergic rhinitis, unspecified allergic rhinitis trigger, unspecified rhinitis seasonality J30.9 [facility] [address] 46887- 5240 10 Jun, 2016 Pain in unspecified shoulder M25.[address] 42895- 1402 May, [facility] [place] [address] 52298- 7362 May, Pain in unspecified shoulder M25.519 [facility] [address] 36593- 0241 05 May, 2016 Thoracogenic scoliosis of thoracolumbar region M41.35 ; Low back pain M54.5 ; Other chronic pain G89.29 and Uncontrolled type 2 diabetes mellitus without complication, without long-term current use of insulin E11.65 [facility] [id number] [place] [address] 56084- 5395 28 Apr, 2016 [facility] [id number] [place] [address] 11621- 7150 Apr, [address] 73722- 3328 04 Apr, 2016 History of type 2 diabetes mellitus Z86.39 and Encounter for immunization Z23 [facility] [place] [id number] [place] [address] 68685- 1732 Mar, [facility] [address] [facility] [id number], [place] [address]- 8125 Mar, [facility] [address] [place] [address]- 8671 Feb, [facility] [address] [facility] [id number] [place] [address]- 1834 Jan, [facility] [address], [place] [address]- 7583 Jan, [facility] [id number], [place] [address]- 0523 Dec, [facility] [id number], [place] [address] -9197 Dec, Sore throat J02.9 and Allergic rhinitis, unspecified allergic rhinitis type J30.9 [facility] [address], [place] [address]- 6545 Dec, Diabetes type 2, controlled E11.9 [facility] [id number], [place] [address]- 2134 Nov, [facility] [address] [place] [address]- 1961 Nov, [facility] [id number], [place] [address]- 2316 October, [facility] [id number], [place] [address]- 3129 October, [facility] [id number], [place] [address]- 4239 Sep, [facility] [id number], [place] [address]- 7213 Aug, [facility] [id number] 5153 Aug, Diabetes type 2, controlled E11.9 ; UTI (urinary tract infection) N39.0 and Bacterial infection A49.9 [facility] [address] [place] [address] 00107- 1119 Jul, [facility] [id number] [place] [address] 67619- 7540 Jul, [facility] [id number] [place] [address] 83370- 2234 Jul, Pharyngitis J02.9 and Seborrheic keratoses L82.1 [facility] [id number] [place] [address] 80418- 1218 Jun, [facility] [address] 22159- 6954 May, [facility] [id number] [place] [address] 82786- 0960 May, Skin tags, multiple acquired L91.8 ; Seborrheic keratoses L82.1 and Diabetes type 2, controlled E11.9 [facility] [id number] [place] [address] 95210- 7242 May, Well woman exam Z01.419 ; Papanicolaou [...] Other fatigue R53.83 and Other hemorrhoids K64.8 [facility] [id number] [place] [address] 33928- 0251 May, [facility] [id number] [place] [address] 43265- 4747 May, [facility] [id number] [place] [address] 11887- 7786 Apr, Seborrheic keratosis L82.1 and Diabetes type 2, controlled E11.9 [facility] [id number] [place] [address] 77295- 8901 Apr, Seborrheic keratosis L82.1 and Diabetes type 2, controlled E11.9 [facility] [id number] [place] [address] 71661- 6659 Mar, [facility] [address] 10525- 5919 Mar, [facility] [id number] [place] [address] 66729- 7604 Mar, Nevoid hyperpigmentation L81.9 ; Encounter for immunization Z23 ; Skin tags, multiple acquired L91.8 and Seborrheic keratoses L82.1 [facility] [id number] [place] [address] 41785- 2689 Feb, [facility] [id number] [place] [address] 76275- 5138 Feb, [facility] [id number] [place] [address] 41992- 5771 Feb, [facility] [id number] [place] [address] 91577- 0712 Feb, Diabetes 250.00 ; Tinea corporis 110.5 and Shoulder pain, left 719.41 [facility] [id number] [place] [address] 37431- 4365 Jan, [facility] [id number] [place] [address] 39241- 3759 Dec, [facility] [address] 24149- 5188 Dec, [facility] [id number] [place] [address] 25405- 2525 Dec, Seborrheic keratoses 702.19 ; Diabetes 250.00 and Hypoglycemia 251.2 [facility] [address] [id number] [place] [address]- 8331 Nov, [facility] [address] [facility] [id number] [place] [address]- 7356 Nov, Abnormal mammogram 793.80 [facility] [address] [facility] [id number] [place] [address]- 8795 October, Diabetes 250.00 and Colon polyp 211.3 [facility] [address] [id number], [place] [address]- 1705 Sep, [facility] [address] [id number] [place] [address]- 3746 Sep, [facility] [address] [facility] [id number] [place] [address]- 5489 Sep, [facility] [address] [place] [address]- 6763 Aug, [facility] [address] [id number] [place] [address]- 8238 Aug, [facility] [address] [id number] [place] [address]- 5635 Jul, [facility] [address] [facility] [id number] [place] [address]- 8065 Jul, [facility] [id number], [place] [address]- 8190 Jun, [facility] [id number] [place] [address]- 9021 Jun, [facility] [address] [id number] [place] [address]- 1915 Jun, [facility] [address] [facility] [id number] [place] 2741 Jun, [facility] [id number] [place] [address]- 4466 Jun, [facility] [place] [facility] [address] [id number] [place] [address]- 5871 Jun, [facility] [place] [facility] [address] [id number] [place] [address]- 0498 May, [facility] [place] [facility] [address] [id number] [place] [address]- 3369 May, [facility] [place] [facility] [address] [id number] [place] [address]- 2088 Apr, [facility] [place] [facility] [address] [id number] [place] [address]- 5907 Apr, [facility] [place] [facility] [address] [id number] [place] [address]- 3480 Apr, [facility] [place] [facility] [address] [id number] [place] [address]- 6865 Apr, [facility] [place] [facility] [address] [id number] [place] [address]- 9569 Apr, [facility] [place] [facility] [address] [id number] [place] [address]- 7340 Apr, [facility] [place] [facility] [address] [id number] [place] [address]- 2591 Apr, [facility] [place] [facility] [address] [id number] [place] [address]- 3077 Apr, [facility] [place] [facility] [address] [id number] [place] [address]- 2235 Apr, [facility] [place] [facility] [address] [id number] [place] [address]- 1293 Apr, [facility] [place] [facility] [address] [id number] [place] [address]- 1714 Mar, [facility] [place] [facility] [address] [id number] [place] [address]- 3772 Mar, [facility] [place] [facility] [address] [id number] [place] [address]- 0556 Mar, [facility] [place] [facility] [address] [id number] [place] [address]- 9468 Mar, [facility] [place] [facility] [address] [id number] [place] [address]- 3799 Mar, [facility] [place] [facility] [address] [id number] [place] [address]- 4327 Mar, [facility] [place] [facility] [address] [id number] [place] [address]- 4932 Mar, [facility] [place] [facility] [address] [id number] [place] [address]- 8824 Mar, [facility] [place] [facility] [address] [id number] [place] [address]- 8959 Feb, [facility] [place] [facility] [address] [id number] [place] [address]- 7016 Feb, [facility] [place] [facility] [address] [id number] [place] [address]- 3514 Feb, [facility] [place] [facility] [address] [id number] [place] [address]- 6100 Feb, [facility] [place] [facility] [address] [id number] [place] [address]- 6125 Jan, [facility] [place] [facility] [address] [id number] [place] [address]- 4043 Jan, [facility] [place] [facility] [address] [id number], [place] [address]- 5763 Dec, [facility] [place] [facility] [address] [id number] [place] [address]- 7943 Dec, [facility] [place] [facility] [address] [id number], [place] [address]- 9617 Nov, [facility] [place] [facility] [address] [id number] [place] [address]- 1868 Nov, [facility] [place] [facility] [address] [id number] [place] [address]- 9699 Nov, [facility] [place] [facility] [address] [id number] [place] [address]- 5084 Nov, [facility] [place] [facility] [address] [id number] [place] [address]- 2059 October, [facility] [place] [facility] [address] [id number] [place] [address]- 5652 October, [facility] [place] [facility] [address] [id number] [place] [address]- 9824 October, [facility] [place] [facility] [address] [id number] [place] 4641 October, [facility] [place] [facility] [address] [id number] [place] [address]- 3023 October, [facility] [place] [facility] [address] [id number] [place] [address]- 9113 October, [facility] [place] [facility] [address] [id number] [place] [address]- 8693 October, [facility] [place] [facility] [address] [id number] [place] [address]- 3497 October, [facility] [place] [facility] [address] [id number] [place] [address] Aug, [facility] [place] [facility] [address] [id number] [place] [address] Aug, [facility] [place] [facility] [address] [id number] [place] [address] Jul, [facility] [place] [facility] [address] [id number] [place] [address] Jul, [facility] [place] [facility] [address] [id number] [place] [address] Jul, [facility] [place] [facility] [address] [id number] [place] [address] Jul, [facility] [place] [facility] [address] [id number] [place] [address] Jul, [facility] [place] [facility] [address] [id number] [place] [address] Jun, [facility] [place] [facility] [address] [id number] [place] [address] Jun, [facility] [place] [facility] [address] [id number] [place] [address] May, [facility] [place] [facility] [address] [id number] [place] [address] May, [facility] [place] [facility] [address] [id number] [place] [address] Apr, [facility] [place] [facility] [address] [id number] [place] [address] Apr, [facility] [place] [facility] [address] [id number], [place] [address] Mar, [facility] [place] [facility] [address] [id number] [place] [address] Mar, [facility] [place] [facility] [address] [id number], [place] [address] Mar, [facility] [place] [facility] [address] [id number], [place] [address] Feb, [facility] [place] [facility] [address] [id number], [place] [address] 20 Feb, 2013 [facility] [place] [facility] [address] [id number] [place] [address] 17 Feb, 2013 [facility] [place] [facility] [address] [id number], [place] [address] 04 Feb, 2013 [facility] [place] [facility] [address] [id number], [place] [address] 04 Feb, 2013 [facility] [place] [facility] [address] [id number], [place] [address] Jan, [facility] [address] [id number] [place] [address] Dec, [facility] [place] [facility] [address] [id number] [place] [address] Nov, [facility] [place] [facility] [address] [id number] [place] [address] October, [facility] [place] [facility] [address] [id number] [place] [address] Sep, [facility] [place] [facility] [address] [id number] [place] [address] Aug, [facility] [place] [facility] [address] [id number] [place] [address] Aug, [facility] [address] [id number] [place] [address] Aug, [facility] [place] [facility] [address] [id number] [place] [address] May, [facility] [address] [id number] [place] [address] May, [facility] [place] [facility] [address] [facility] [id number] [place] [address] May, [facility] [place] [facility] [address] [id number] [place] [address]70 May, [facility] [place] [facility] [address] [id number] [place] [address] 11 May, 2012 [facility] [place] [facility] [address] [id number] [place] [address] 6299 16 Apr, 2012 [facility] [place] [facility] [address] [id number] [place] [address] 6481 16 Apr, 2012 [facility] [place] [facility] [address] [facility] [id number] [place] [address]37 14 Apr, 2012 [facility] [place] [facility] [address] [id number] [place] [address]- [address]777 14 Apr, 2012 [facility] [place] [facility] [address] [id number] [place] [address] 1719 07 Apr, 2012 [facility] [place] [facility] [address] [id number] [place] [address] Apr, [facility] [place] [facility] [address] [id number] [place] [address] 4[address] Apr, [facility] [place] [facility] [address] [id number] [place] [address] 3095 Apr, [facility] [place] [facility] [address] [id number] [place] [address] 6180 Mar, [facility] [place] [facility] [address] [id number] [place] [address] 4770 Mar, [facility] [place] [facility] [address] [id number] [place] [address] 3475 Mar, [facility] [place] [facility] [address] [id number] [place] [address] 3959 Mar, [facility] [place] [facility] [address] [id number] [place] [address] 5469 Mar, [facility] [place] [facility] [address] [facility] [id number] [place] [address] 1466 Mar, [facility] [place] [facility] [address] [id number] [place] [address] 5634 Mar, [facility] [place] [facility] [address] [id number] [place] [address] 8918 28 Feb, 2012 [facility] [place] [facility] [address] [id number] [place] [address]- 5686 24 Sep2011 [facility] [place] [facility] [address] [id number] [place] [address] 20 Feb, 2012 [facility] [place] [facility] [address] [id number] [place] [address] 2566 Feb, [facility] [place] [facility] [address] [id number] [place] [address] 8518 Jan, [facility] [place] [facility] [address] [id number] [place] [address] 7340 Jan, [facility] [place] [facility] [address] [id number] [place] [address] 3083 Jan, [facility] [place] [facility] [address] [id number] [place] [address] 33[address] Jan, [facility] [place] [facility] [address] [id number] [place] [address] 7381 Jan, [facility] [place] [facility] [address] [id number] [place] [address] 3[address] Jan, [facility] [place] [facility] [address] [id number] [place] [address] 8756 Dec, [facility] [place] [facility] [address] [id number] [place] [address]- 0921 Dec, [facility] [place] [facility] [address] [id number] [place] [address] 8558 Dec, [facility] [place] [facility] [address] [id number] [place] [address] 7139 Dec, [facility] [place] [facility] [address] [id number] [place] [address] 4020 Dec, [facility] [place] [facility] [address] [id number] [place] [address]- 8061 Dec, [facility] [place] [facility] [address] [id number] [place] [address]- 5242 Dec, [facility] [place] [facility] [address] [id number] [place] [address]- 6657 Dec, [facility] [place] [facility] [address] [id number] [place] [address] 6167 Nov, [facility] [place] [facility] [address] [id number] [place] [address]- 3635 11 Nov, 2011 [facility] [place] [facility] [address] [id number] [place] [address]- 3471 08 Nov, 2011 [facility] [place] [facility] [address] [id number] [place] [address]- 2746 07 Nov, 2011 [facility] [place] [facility] [address] [id number] [place] [address]- 7426 October, [facility] [place] [facility] [address] [id number] [place] [address] 9516 October, [facility] [place] [facility] [address] [id number] [place] [address]- 3837 Sep, [facility] [place] [facility] [address] [id number] [place] [address]- 7056 Sep, [facility] [place] [facility] [address] [id number] [place] [address]- 1061 Aug, [facility] [place] [facility] [address] [id number] [place] [address]- 1394 16 Aug, 2011 [facility] [place] [facility] [address] [id number] [place] [address]- 8769 Aug, [facility] [place] [facility] [address] [facility] [id number] [place] [address]- 1864 Aug, [facility] [place] [facility] [address] [id number] [place] [address]- 0931 05 Aug, 2011 [facility] [place] [facility] [address] [id number] [place] [address]- 4943 08 Jul, 2011 [facility] [place] [facility] [address] [id number] [place] [address]- 1676 06 Jul, 2011 [facility] [place] [facility] [address] [id number] [place] [address]- 2546 Jul, [facility] [place] [facility] [address] [id number] [place] [address]- 2776 Jul, [facility] [address] [id number] [place] [address]- 1202 Jun, [facility] [place] [facility] [address] [id number] [place] [address]- 5073 Jun, [facility] [place] [facility] [address] [id number] [place] [address]- 1875 Jun, [facility] [place] [facility] [address] [id number] [place] [address]- 5101 Jun, [facility] [place] [facility] [address] [id number] [place] [address]- 7380 Jun, [facility] [place] [facility] [address] [id number] [place] [address]- 4643 May, [facility] [place] [facility] [address] [facility] [id number] [place] [address]- 4706 May, [facility] [place] [facility] [address] [id number], [place] [address]27 May, [facility] [place] [facility] [address] [facility] [id number] [place] [address]- 2490 May, [facility] [place] [facility] [address] [facility] [id number], [place] [address]- 7069 May, [facility] [place] [facility] [address] [facility] [id number], [place] [address]- 4698 May, [facility] [place] [facility] [address] [id number], [place] [address]- 9324 Apr, [facility] [place] [facility] [address] [id number], [place] [address]- 6930 Apr, [facility] [place] [facility] [address] [id number], [place] [address]- 2082 Mar, [facility] [place] [facility] [address] [id number], [place] [address]- 6937 Mar, [facility] [place] [facility] [address] [id number], [place] [address]- 7986 October, [facility] [id number], [place] [address] 6647 May, [facility] [id number], [place] [address]- 6187 Apr, [facility] [id number], [place] [address]- 6936 Jul, [facility] [id number] [place] [address]- 1814 May, [facility] [id number] [place] [address]- 2802 May, [facility] [id number] [place] [address]- 4803 May, [facility] [id number] [place] [address]60- 1509 Apr, [facility] [id number] [place] [address]- 6384 Apr, [facility] [id number] [place] [address] 885031- 7331 Mar, [facility] [id number], [place] [address]- 6842 Jan, [facility] [id number] [address] Nov, IMMUNIZATIONS No Known Immunizations SOCIAL HISTORY Never Assessed REASON FOR VISIT lab results PLAN OF CARE VITAL SIGNS MEDICATIONS Medication Instructions Dosage Frequency Start Date End Date Duration Status Ferrous Sulfate 325 (65 Fe) MG Orally Once a day 1 tablet 24h Sep, 30 day(s) Active RESULTS No Results PROCEDURES [...]
--- OUTSIDE RECORDS SUMMARY | 2018-02-19 21:30 | XMS REPORT ---
Author Author BOOGIE ARAUJO [facility] Address [address] [place] [address] Care Team Providers Care Risk Control Representative Name Role Phone BOOGIE ARAUJO Unavailable PROBLEMS Type Condition ICD9-CM Code TWX77-UG Code Onset Dates Condition Status SNOMED Code Problem History of abnormal cervical Pap smear Z87.898 Active 322284572 Problem Thoracogenic scoliosis of thoracolumbar region M41.35 Active 93076494 Problem Uncontrolled type 2 diabetes mellitus without complication, without long-term current use of insulin E11.65 Active 059931946 Problem Diabetes type 2, controlled E11.9 Active 13736009 Problem Thyroid nodule E04.1 Active 880928424 Problem History of colon polyps Z86.010 Active 677543846 Problem Other iron deficiency anemia D50.8 Active 77466194 Problem Iron deficiency anemia due to chronic blood loss D50.0 Active 009956043 Problem Screening breast examination Z12.39 Active 872987932 Problem Allergic rhinitis, unspecified allergic rhinitis trigger, unspecified rhinitis seasonality J30.9 Active 74864727 Problem Controlled type 2 diabetes mellitus without complication, without long -term current use of insulin E11.9 Active 233880121 Problem Other chronic pain G89.29 Active 11170855 ALLERGIES Substance Reaction Event Type Date Status Diclofenac rash Drug Allergy Sep, Active Invokana swelling Drug Allergy Sep, Active Trilipix Unknown Drug Allergy Sep, Active Simcor chest pain, due to high doses of niacin in the simcor Drug Allergy Sep, Active Meloxicam elevated BG, fluid retention Drug Allergy Sep, Active Hydrochlorothiazide Unknown Drug Allergy Sep, Active Dimetapp Maximum Strength Unknown Drug Allergy Sep, Active BusPIRone HCl dizziness Drug Allergy Sep, Active Augmentin Unknown Drug Allergy Sep, Active ENCOUNTERS Encounter Location Date Diagnosis [facility] [address] [facility] [id number] [address] Jan, [facility] [address] [facility] [id number] [address] Dec, Other chronic pain G89.29 [facility] [address] [facility] [id number] [address] Dec, Diabetes type 2, controlled E11.9 [facility] [address] [facility] [id number] [address] Nov, Other chronic pain G89.29 [facility] [address] [facility] [id number] [place] [address] 24[address] Nov, [facility] [address] [facility] [id number] [place] [address], [place] [address] Nov, [facility] [address] [address] October, Diabetes type 2, controlled E11.9 and Acute cystitis without hematuria N30.00 [facility] [address] [address] 4[address] October, [facility] [address] [address] 04[address] October, [facility] [address] [address] 0[address] October, [facility] [address]00565[address] [address] 5856 October, Other chronic pain G89.29 [facility] [address] [facility] [id number] [address] 1382 Sep, Diabetes type 2, controlled E11.9 [facility] [address] [facility] [id number] [place] [address]- 9952 Sep, [facility] [address] [facility] [id number] [address] 9856 Sep, Diabetes type 2, controlled E11.9 [facility] [id number] [place] [address] 51634- 3518 Sep, Other chronic pain G89.29 [facility] [id number] [place] [address] 47975- 6198 Sep, Other iron deficiency anemia D50.8 [facility] [id number] [place] [address] 01829- 9762 Sep, Other iron deficiency anemia D50.8 [facility] [id number] [place] [address] 62633- 6102 Sep, Iron deficiency anemia due to chronic blood loss D50.0 and Dysuria R30.0 [facility] [id number] [place] [address] 53104- 6159 Sep, Dysuria R30.0 [facility] [id number] [place] [address] 82889- 1528 Sep, Iron deficiency anemia due to chronic blood loss D50.0 [facility] [id number] [place] [address] 34704- 7806 Sep, [facility] [id number] [place] [address] 88489- 0008 Sep, Controlled type 2 diabetes mellitus without complication, without long-term current use of insulin E11.9 ; Leg cramps R25.2 ; Low back pain M54.5 and Other chronic pain G89.29 [facility] [id number] [place] [address] 83228- 8567 Sep, Controlled type 2 diabetes mellitus without complication, without long-term current use of insulin E11.9 ; Low back pain M54.5 ; Other chronic pain G89.29 and Leg cramps R25.2 [facility] [id number] [place] [address] [address]40 Aug, Other chronic pain G89.29 [facility] [id number] [place] [address] 92195- 9701 Jul, Other chronic pain G89.29 [facility] [address] [address] 0[address] 16 Jul, 2017 Pneumonia of left lower lobe due to infectious organism J18.1 [facility] [address] [address] 12 Jul, 2017 Dysuria R30.0 ; Cough in adult patient R05 and Pneumonia of left lower lobe due to infectious organism J18.1 [facility] [address] [place] [address] 49457- 6503 08 Jul, 2017 [facility] [address] [place] [address] 84025- 1111 Jun, Other chronic pain G89.29 [facility] [address] [place] [address] 05596- 9992 Jun, [facility] [id number] [place] [address] 51655- 3794 Jun, Diabetes type 2, controlled E11.9 ; Back muscle spasm M62.830 and Other chronic pain G89.29 [facility] [address] [place] [address] 61243- 7319 Jun, Screening breast examination Z12.31 [facility] [address]00565[address] [address]- 6585 May, Other chronic pain G89.29 [facility] [address]65[address] [address]- 1386 May, [facility] [address] [place] [address] 63168- 2104 May, UTI (urinary tract infection) N39.0 [facility] [address] [place] [address] 21274- 7594 May, Dysuria R30.0 [facility] [address]00565[address] [address]- 5558 May, Dysuria R30.0 [facility] [address] [address]- 5533 May, Diabetes type 2, controlled E11.9 ; 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 and Other chronic pain G89.29 [facility] [address] [id number] [address]- 1070 Apr, Diabetes type 2, controlled E11.9 [facility] [id number] [place] [address] 32204 -5926 Mar, Paronychia of great toe, right L03.031 and Dysuria R30.0 [facility] [id number] [place] [address] 16168- 5700 Mar, Diabetes type 2, controlled E11.9 [facility] [id number] [place] [address] 00042- 4616 28 Feb, 2017 Diabetes type 2, controlled E11.9 [facility] [id number] [place] [address] [id number] 13 Feb, 2017 Dental examination Z01.20 [facility] [id number] [place] [address] 44320- 2564 11 Feb, 2017 Diabetes type 2, controlled E11.9 [facility] [address] [place] [address] 36291- 8156 07 Feb, 2017 Diabetes type 2, controlled E11.9 [facility] [id number] [place] [address] 75393- 4439 Jan, Diabetes type 2, controlled E11.9 [facility] [address] [place] [address] 52984- 5254 Dec, Diabetes type 2, controlled E11.9 [facility] [address] [place] [address] 98458- 6659 Dec, Diabetes type 2, controlled E11.9 [facility] [address] [place] [address] 46083- 8968 Nov, Diabetes type 2, controlled E11.9 [facility] [address] [address]- 5097 Nov, Diabetes type 2, controlled E11.9 [facility] [address] [place] [address] 95143- 1146 Nov, Diabetes type 2, controlled E11.9 [facility] [id number] [place] [address] 89597- 6482 Nov, Diabetes type 2, controlled E11.9 [facility] [id number] [place] [address] 75731- 6621 14 Nov, 2016 Diabetes type 2, controlled E11.9 [facility] [id number] [place] [address] 89091- 2996 Nov, Diabetes type 2, controlled E11.9 [facility] [id number] [place] [address] 76339- 2793 October, Pain in unspecified shoulder M25.519 [facility] [id number] [place] [address] 50786- 1366 October, Diabetes type 2, controlled E11.9 and Cellulitis of right lower extremity L03.115 [facility] [id number] [place] [address] 45858- 8994 October, Pain in unspecified shoulder M25.519 [facility] [address] [address]- 3315 Sep, Diabetes type 2, controlled E11.9 [facility] [address] [address]- 0992 Aug, Pain in unspecified shoulder M25.519 [facility] [id number] [place] [address] 81400- 7916 Aug, Diabetes type 2, controlled E11.9 [facility] [address] [address]- 9038 Aug, Diabetes type 2, controlled E11.9 ; Dark urine R82.99 and Localized edema R60.0 [facility] [id number] [place] [address] 39470- 3079 07 Aug, 2016 Pain in unspecified shoulder M25.519 [facility] [id number] [place] [address] 89967- 3951 07 Jul, 2016 Pain in unspecified shoulder M25.519 [facility] [address] 11229- 7149 06 Jul, 2016 [facility] [address] 40697- 8378 02 Jul, 2016 Diabetes type 2, 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 E11.9 and 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 [facility] [address] 56333- 0728 Jun, Diabetes type 2, controlled E11.9 [facility] [address] 16433- 3706 18 Jun, 2016 Screening breast examination Z12.39 and Allergic rhinitis, unspecified allergic rhinitis trigger, unspecified rhinitis seasonality J30.9 [facility] [id number] [place] [address] 96226- 5615 Jun, Pain in unspecified shoulder M25.519 [facility] [id number] [place] [address] 63442- 6504 May, [facility] [address] 00083- 8381 13 May, 2016 Pain in unspecified shoulder M25.519 [facility] [id number] [place] [address] 17098- 6306 05 May, 2016 Thoracogenic scoliosis of thoracolumbar region M41.35 ; Low back pain M54.5 ; Other chronic pain G89.29 and Uncontrolled type 2 diabetes mellitus without complication, without long-term current use of insulin E11.65 [facility] [address] 15793- 3695 Apr, [facility] [id number] [place] [address] 61498- 0004 Apr, [facility] [id number] [place] [address] 96980- 0278 Apr, History of type 2 diabetes mellitus Z86.39 and Encounter for immunization Z23 [facility] [id number] [place] [address] 30619- 7062 Mar, [facility] [id number] [place] [address] 99844- 3726 Mar, [facility] [id number] [place] [address] 41996- 0450 Feb, [facility] [id number] [place] [address] 08489- 0201 Jan, [facility] [id number] [place] [address] 30569- 3439 Jan, [facility] [id number] [place] [address] 99317- 7650 Dec, [facility] [id number] [place] [address] 04978 -8879 Dec, Sore throat J02.9 and Allergic rhinitis, unspecified allergic rhinitis type J30.9 [facility] [id number] [place] [address] 01133- 2352 Dec, Diabetes type 2, controlled E11.9 [facility] [id number] [place] [address] 49432- 9552 Nov, [facility] [id number] [place] [address] 30438- 6420 Nov, [facility] [id number] [place] [address] 79867- 0279 October, [facility] [id number] [place] [address] 14341- 6175 October, [facility] [address] [address]- 4437 Sep, [facility] [address] [place] [address] 78779- 7866 Aug, [facility] [address] [address]- 7879 Aug, Diabetes type 2, controlled E11.9 ; UTI (urinary tract infection) N39.0 and Bacterial infection A49.9 [facility] [address] [address]- 3759 Jul, [facility] [id number] [place] [address] 624514- 6696 Jul, [facility] [address] [address]- 3125 Jul, Pharyngitis J02.9 and Seborrheic keratoses L82.1 [facility] [address] [address]- 1059 Jun, [facility] [address] [place] [address] 278944- 6867 May, [facility] [address] [address]- 4220 May, Skin tags, multiple acquired L91.8 ; Seborrheic keratoses L82.1 and Diabetes type 2, controlled E11.9 [facility] [id number] [address]- 3050 May, Well woman exam Z01.419 ; Papanicolaou [...] Other fatigue R53.83 and Other hemorrhoids K64.8 [facility] [id number] [place] [address] 77036- 4430 May, [facility] [address] 95793- 0318 May, [facility] [address] 74034- 1678 Apr, Seborrheic keratosis L82.1 and Diabetes type 2, controlled E11.9 [facility] [address] 77538- 7703 Apr, Seborrheic keratosis L82.1 and Diabetes type 2, controlled E11.9 [facility] [address] 33849- 4249 Mar, [facility] [address] 57690- 2029 Mar, [facility] [id number] [place] [address] 10261- 6691 Mar, Nevoid hyperpigmentation L81.9 ; Encounter for immunization Z23 ; Skin tags, multiple acquired L91.8 and Seborrheic keratoses L82.1 [facility] [id number] [place] [address] 12283- 9745 Feb, [facility] [address] 10313- 8864 Feb, [facility] [id number] [place] [address] 30297- 7960 Feb, [facility] [address] 81184- 0254 Feb, Diabetes 250.00 ; Tinea corporis 110.5 and Shoulder pain, left 719.41 [facility] [address] 20829- 3010 Jan, [facility] [address] [facility] [id number] [address]- 2191 Dec, [facility] [address] [address]- 0264 Dec, [facility] [address] [address]- 3901 Dec, Seborrheic keratoses 702.19 ; Diabetes 250.00 and Hypoglycemia 251.2 [facility] [address] [address]- 4014 Nov, [facility] [id number] [place] [address] 74386- 0055 Nov, Abnormal mammogram 793.80 [facility] [id number] [address]- 1377 October, Diabetes 250.00 and Colon polyp 211.3 [facility] [address] [address]- 0402 Sep, [facility] [address] [address]- 6438 Sep, [facility] [address] [address]- 9142 Sep, [facility] [address] [address]- 5910 Aug, [facility] [address] [address]- 3261 Aug, [facility] [id number] [address]- 6272 Jul, [facility] [address] [address]- 6418 Jul, [facility] [id number] [address]- 3445 Jun, [facility] [id number] [address]- 5694 Jun, [facility] [place] [facility] [address] [id number] [place] [address]- 7467 Jun, [facility] [place] [facility] [address] [id number] [place] [address]- 6955 Jun, [facility] [place] [facility] [address] [id number] [place] [address]- 1581 Jun, [facility] [place] [facility] [address] [id number] [place] [address]- 1723 Jun, [facility] [place] [facility] [address] [id number] [place] [address]- 1310 May, [facility] [place] [facility] [address] [id number] [place] [address]- 4445 May, [facility] [place] [facility] [address] [id number] [place] [address]- 8084 Apr, [facility] [place] [facility] [address] [id number] [place] [address]- 7625 Apr, [facility] [place] [facility] [address] [id number] [place] [address]- 0761 Apr, [facility] [place] [facility] [address] [facility] [id number] [place] [address]- 2591 Apr, [facility] [place] [facility] [address] [id number] [place] [address]- 9612 Apr, [facility] [place] [facility] [address] [id number] [place] [address]- 1748 Apr, [facility] [place] [facility] [address] [id number] [place] [address]- 0163 Apr, [facility] [place] [facility] [address] [id number] [place] [address]- 4566 Apr, [facility] [place] [facility] [address] [id number] [place] [address]- 8398 Apr, [facility] [place] [facility] [address] [id number] [place] [address]- 5930 Apr, [facility] [place] [facility] [address] [id number] [place] [address]- 3864 Mar, [facility] [place] [facility] [address] [id number] [place] [address]- 8691 Mar, [facility] [place] [facility] [address] [id number] [place] [address]- 7399 Mar, [facility] [place] [facility] [address] [id number] [place] [address]- 6993 Mar, [facility] [place] [facility] [address] [id number] [place] [address]- 6094 Mar, [facility] [place] [facility] [address] [id number] [place] [address]- 5532 Mar, [facility] [place] [facility] [address] [id number] [place] [address]- 7759 Mar, [facility] [place] [facility] [address] [id number] [place] [address]- 0781 Mar, [facility] [place] [facility] [address] [id number] [place] [address]- 1652 Feb, [facility] [place] [facility] [address] [id number] [place] [address]- 8578 Feb, [facility] [place] [facility] [address] [id number] [place] [address]- 0509 Feb, [facility] [place] [facility] [address] [id number] [place] [address]- 6676 Feb, [facility] [place] [facility] [address] [id number] [place] [address]- 4921 Jan, [facility] [place] [facility] [address] [id number] [place] [address]- 5619 Jan, [facility] [place] [facility] [address] [id number] [place] [address]- 2546 Dec, [facility] [place] [facility] [address] [id number] [place] [address]- 7541 Dec, [facility] [place] [facility] [address] [id number] [place] [address]- 4187 Nov, [facility] [place] [facility] [address] [id number] [place] [address]- 2611 Nov, [facility] [place] [facility] [address] [id number] [place] [address]- 5014 Nov, [facility] [place] [facility] [address] [id number] [place] [address]- 3015 Nov, [facility] [place] [facility] [address] [id number] [place] [address] October, [facility] [place] [facility] [address] [id number] [place] [address] October, [facility] [place] [facility] [address] [id number] [place] [address] October, [facility] [place] [facility] [address] [id number] [place] [address] October, [facility] [place] [facility] [address] [id number] [place] [address] October, [facility] [place] [facility] [address] [id number] [place] [address] October, [facility] [place] [facility] [address] [id number] [place] [address] October, [facility] [place] [facility] [address] [id number] [place] [address] October, [facility] [place] [facility] [address] [id number] [place] [address] Aug, [facility] [place] [facility] [address] [id number] [place] [address] Aug, [facility] [place] [facility] [address] [id number] [place] [address] Jul, [facility] [place] [facility] [address] [id number] [place] [address] Jul, [facility] [place] [facility] [address] [id number] [place] [address] Jul, [facility] [place] [facility] [address] [id number] [place] [address] Jul, [facility] [place] [facility] [address] [id number] [place] [address] Jul, [facility] [place] [facility] [address] [id number] [place] [address] Jun, [facility] [place] [facility] [address] [id number] [place] [address] Jun, [facility] [place] [facility] [address] [id number] [place] [address] May, [facility] [place] [facility] [address] [id number] [place] [address] May, [facility] [place] [facility] [address] [facility] [id number] [place] [address] Apr, [facility] [place] [facility] [address] [facility] [id number] [place] [address] Apr, [facility] [place] [facility] [address] [id number] [place] [address] Mar, [facility] [place] [facility] [address] [id number] [place] [address] Mar, [facility] [place] [facility] [address] [id number] [place] [address] Mar, [facility] [place] [facility] [address] [id number] [place] [address] Feb, [facility] [place] [facility] [address] [id number] [place] [address] Feb, 2013 [facility] [address] [id number] [place] [address] 17 Feb, 2013 [facility] [address] [id number] [place] [address] Feb, [facility] [address] [id number] [place] [address] Feb, [facility] [address] [id number] [place] [address] Jan, [facility] [address] [id number] [place] [address] Dec, [facility] [address] [id number] [place] [address] Nov, [facility] [address] [id number] [place] [address] October, [facility] [address] [id number] [place] [address] Sep, [facility] [address] [id number] [place] [address] Aug, [facility] [address] [id number] [place] [address] Aug, [facility] [address] [id number] [place] [address] Aug, [facility] [place] [facility] [address] [id number] [address] May, [facility] [place] [facility] [address] [id number] [place] [address] May, [facility] [place] [facility] [address] [id number] [place] [address] May, [facility] [place] [facility] [address] [id number] [place] [address]16 May, [facility] [address] [id number] [place] [address] 11 May, 2012 [facility] [place] [facility] [address] [id number] [place] [address] 16 Apr, 2012 [facility] [place] [facility] [address] [id number] [place] [address] 16 Apr, 2012 [facility] [place] [facility] [address] [id number] [place] [address] 14 Apr, 2012 [facility] [place] [facility] [address] [id number] [place] [address]65 14 Apr, 2012 [facility] [place] [facility] [address] [id number] [place] [address] Apr, [facility] [place] [facility] [address] [id number] [place] [address] Apr, [facility] [place] [facility] [address] [id number] [place] [address] Apr, [facility] [place] [facility] [address] [id number] [place] [address] 4546 Apr, [facility] [place] [facility] [address] [id number] [place] [address] Mar, [facility] [place] [facility] [address] [facility] [id number] [place] [address] 3318 Mar, [facility] [place] [facility] [address] [id number] [place] [address]692 Mar, [facility] [place] [facility] [address] [id number] [place] [address] 4360 Mar, [facility] [place] [facility] [address] [id number] [place] [address] Mar, [facility] [place] [facility] [address] [facility] [id number] [place] [address] 1198 Mar, [facility] [place] [facility] [address] [id number] [place] [address] Mar, [facility] [place] [facility] [address] [id number] [place] [address] 28 Feb, 2012 [facility] [place] [facility] [address] [id number] [place] [address] 9256 24 Feb, 2012 [facility] [place] [facility] [address] [id number] [place] [address] 9990 Feb, [facility] [place] [facility] [address] [id number] [place] [address] Feb, [facility] [place] [facility] [address] [id number] [place] [address] Jan, [facility] [place] [facility] [address] [id number] [place] [address] 96[address] Jan, [facility] [place] [facility] [address] [id number] [place] [address] 7947 Jan, [facility] [place] [facility] [address] [id number] [place] [address] Jan, [facility] [place] [facility] [address] [id number] [place] [address] 0964 Jan, [facility] [place] [facility] [address] [id number] [place] [address] 7216 Jan, [facility] [place] [facility] [address] [id number] [place] [address] 9185 Dec, [facility] [place] [facility] [address] [id number] [place] [address]267 Dec, [facility] [place] [facility] [address] [id number] [place] [address]13 Dec, [facility] [place] [facility] [address] [id number] [place] [address] 35[address] Dec, [facility] [place] [facility] [address] [id number] [place] [address]- 7698 Dec, [facility] [place] [facility] [address] [id number] [place] [address] 6857 Dec, [facility] [place] [facility] [address] [id number] [place] [address]395 Dec, [facility] [place] [facility] [address] [id number] [place] [address] 9016 Dec, [facility] [place] [facility] [address] [id number] [place] [address]104 Nov, [facility] [place] [facility] [address] [id number] [place] [address] 7008 Nov, [facility] [place] [facility] [address] [id number] [place] [address]- 6473 Nov, [facility] [place] [facility] [address] [id number] [place] [address]- 1175 Nov, [facility] [place] [facility] [address] [id number] [place] [address] October, [facility] [place] [facility] [address] [id number] [place] [address] 67[address] October, [facility] [place] [facility] [address] [id number] [place] [address] 2847 Sep, [facility] [place] [facility] [address] [id number] [place] [address]- 9796 Sep, [facility] [place] [facility] [address] [id number] [place] [address]- 6003 Aug, [facility] [place] [facility] [address] [id number] [place] [address]- 2583 16 Aug, 2011 [facility] [place] [facility] [address] [id number] [place] [address]- 2445 Aug, [facility] [place] [facility] [address] [id number] [place] [address]- [address]995 07 Aug, 2011 [facility] [place] [facility] [address] [id number] [place] [address]- [address]500 05 Aug, 2011 [facility] [place] [facility] [address] [id number] [place] [address]- 4231 08 Jul, 2011 [facility] [address] [id number] [place] [address]- [address] Jul, [facility] [place] [facility] [address] [id number] [place] [address] 6046 Jul, [facility] [place] [facility] [address] [id number] [place] [address]- 7026 Jul, [facility] [place] [facility] [address] [id number] [place] [address]- 9414 Jun, [facility] [place] [facility] [address] [id number] [place] [address] 0368 Jun, [facility] [address] [id number] [place] [address]- 0044 Jun, [facility] [address] [id number] [place] [address]- 5742 Jun, [facility] [address] [id number] [place] [address]- 7474 Jun, [facility] [address] [id number] [place] [address]- 3019 May, [facility] [place] [facility] [address] [id number] [place] [address]- 2426 May, [facility] [place] [facility] [address] [id number] [place] [address]- 9736 May, [facility] [place] [facility] [address] [id number] [place] [address] 1899 May, [facility] [place] [facility] [address] [id number] [place] [address]- 6696 May, [facility] [place] [facility] [address] [id number] [place] [address]- 2066 May, [facility] [place] [facility] [address] [id number] [place] [address]- 8178 Apr, [facility] [address] [facility] [id number] [place] [address] 47[address] Apr, [facility] [address] [facility] [id number] [place] [address]106 14 Mar, 2011 [facility] [address] [id number] [address] Mar, [facility] [address] [facility] [id number] [place] [address] October, [facility] [address] [facility] [id number] [place] [address] 6613 May, [facility] [address] [id number] [address] 8976 Apr, [facility] [id number] [address] Jul, [facility] [address] [id number] [address] 7308 May, [facility] [id number] [address]- 5069 May, [facility] [id number] [address]17 May, [facility] [id number] [address]- 6[address] Apr, [facility] [address] [id number] [address]- 7427 Apr, [facility] [address] [id number] [address]- 0[address] Mar, [facility] [address] [id number] [address]- 2726 Jan, [facility] [address] [id number] [address] Nov, IMMUNIZATIONS No Known Immunizations SOCIAL HISTORY Never Assessed REASON FOR VISIT Diabetes----Trevon, c/o cotton mouth PLAN OF CARE VITAL SIGNS Height 69 in 2017-09-19 Weight 253 lbs 2017-09-19 Temperature 98.4 degrees Fahrenheit 2017-09-19 Heart Rate 100 bpm 2017-09-19 Respiratory Rate 20 2017-09-19 BMI 37.36 kg/m2 2017-09-19 Blood pressure systolic 112 mmHg 2017-09-19 Blood pressure diastolic 72 mmHg 2017-09-19 MEDICATIONS Medication Instructions Dosage Frequency Start Date End Date Duration Status Vitamin D 1000 UNIT Orally Once a day 1 tablet 24h Active Amlodipine Besylate 10 mg 1 tablet 24h Active Flonase 50 MCG/ACT Nasally Once a day 1 spray in each nostril 24h Active Klor-Con 10 10 MEQ Orally Once a day as needed when lasix taken 1 tablet with food Active Atorvastatin Calcium 40 mg TAKE ONE TABLET BY MOUTH ONCE DAILY 24h Active Aspirin 81 TAKE ONE TABLET BY MOUTH DAILY 30 Active Montelukast Sodium 10 MG Orally Once a day 1 tablet in the evening 24h Active Losartan Potassium 50 mg 1 tablet 24h Active Ipratropium-Albuterol 0.5-2.5 (3) MG/3ML Inhalation every 6 hrs 3 ml 6h Active FreeStyle Lite Test - In Vitro 2 times a day test blood sugar 12h Active Lasix 20 mg Orally Once a day as needed 1 tablet Aug, Active C-PAP Machine Active Nebulizer - Active Zyrtec Allergy 10 1 tablet 24h Active [place] 7.5-325 MG Orally 3 times a day 1 tablet as needed 8h Aug, 28 days Active GlipiZIDE 10 2 tablets 12h Active Blood Pressure Cuff Dx: Hypertension Mar, Active Pen [place] 31G X 6 MM use with victoza pens Nov, Active MetFORMIN HCl ER 500 mg Orally twice a day 2 tablets 12h Active Baclofen 20 mg Orally 2 times a day 1 tablet with food or milk 12h Sep, Dec, 30 day(s) Active Victoza 18 MG/3ML INJECT 1.2 MG SUBCUTANEOUSLY ONCE DAILY 45 Active RESULTS No Results PROCEDURES Procedure Date Ordered Result Body Site [facility] VISIT ESTABLISHED PATIENT September 19, 2017 INSTRUCTIONS MEDICATIONS ADMINISTERED No Known Medications [...]
--- OUTSIDE RECORDS SUMMARY | 2018-02-19 21:31 | XMS REPORT ---
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 Name Role Phone BOOGIE ARAUJO Unavailable PROBLEMS Type Condition ICD9-CM Code DAT59-TU Code Onset Dates Condition Status SNOMED Code Problem History of abnormal cervical Pap smear Z87.898 Active 427885913 Problem Thoracogenic scoliosis of thoracolumbar region M41.35 Active 53354659 Problem Uncontrolled type 2 diabetes mellitus without complication, without long-term current use of insulin E11.65 Active 035808940 Problem Diabetes type 2, controlled E11.9 Active 62548619 Problem Thyroid nodule E04.1 Active 843333923 Problem History of colon polyps Z86.010 Active 420838928 Problem Other iron deficiency anemia D50.8 Active 48378506 Problem Iron deficiency anemia due to chronic blood loss D50.0 Active 095615683 Problem Screening breast examination Z12.39 Active 931026701 Problem Allergic rhinitis, unspecified allergic rhinitis trigger, unspecified rhinitis seasonality J30.9 Active 20159810 Problem Controlled type 2 diabetes mellitus without complication, without long -term current use of insulin E11.9 Active 764179211 Problem Other chronic pain G89.29 Active 96152362 ALLERGIES No Information ENCOUNTERS Encounter Location Date Diagnosis [facility] [place] [id number] [place] [address] 08839- 0744 Jan, [facility] [place] [id number] [address] 1319 Dec, Other chronic pain G89.29 [facility] [place] [id number] [place] [address] 46134- 9593 Dec, Diabetes type 2, controlled E11.9 [facility] [place] [id number] [address] 8217 Nov, Other chronic pain G89.29 [facility] [place] [id number] [address] 4016 Nov, [facility] [place] [id number] [place] [address] 30021- 2599 Nov, [facility] [place] [address] [address]- 6925 October, Diabetes type 2, controlled E11.9 and Acute cystitis without hematuria N30.00 [facility] [place] [id number] [address] 9870 October, [facility] [place] [id number] [place] [address] 09049- 9754 October, [facility] [place] [id number] [place] [address] 55572- 9271 October, [facility] [place] [id number] [place] [address] 87987- 5832 October, Other chronic pain G89.29 [facility] [place] [address] [address]- 1618 Sep, Diabetes type 2, controlled E11.9 [facility] [place] [address] [address]- 1764 Sep, [facility] [place] [id number] [address]- 3139 Sep, Diabetes type 2, controlled E11.9 [facility] [place] [address] [address]- 3900 16 Sep, 2017 Other chronic pain G89.29 [facility] [place] [address] [address]- 5383 13 Sep, 2017 Other iron deficiency anemia D50.8 [facility] [place] [address] [address]- 9562 12 Sep, 2017 Other iron deficiency anemia D50.8 [facility] [place] [id number] [place] [address] 32329- 7004 Sep, Iron deficiency anemia due to chronic blood loss D50.0 and Dysuria R30.0 [place] [id number] [place] [address] 65144- 8196 Sep, Dysuria R30.0 [place] [id number] [place] [address] 46674- 9317 Sep, Iron deficiency anemia due to chronic blood loss D50.0 [facility] [place] [id number] [place] [address] 89465- 7299 Sep, [place] [id number] [place] [address] 93111- 2839 Sep, Controlled type 2 diabetes mellitus without complication, without long-term current use of insulin E11.9 ; Leg cramps R25.2 ; Low back pain M54.5 and Other chronic pain G89.29 [place] [address] [place] [address] 07058- 0412 Sep, Controlled type 2 diabetes mellitus without complication, without long-term current use of insulin E11.9 ; Low back pain M54.5 ; Other chronic pain G89.29 and Leg cramps R25.2 [place] [id number] [place] [address] 73642- 8642 Aug, Other chronic pain G89.29 [place] [id number] [place] [address] 89637- 3501 Jul, Other chronic pain G89.29 [place] [id number] [place] [address] 18683- 3256 Jul, Pneumonia of left lower lobe due to infectious organism J18.1 [facility] [id number] [place] [address] 46635 -0860 Jul, Dysuria R30.0 ; Cough in adult patient R05 and Pneumonia of left lower lobe due to infectious organism J18.1 [place] [id number] [address]- 9756 08 Jul, 2017 [facility] [place] [address] [address]- 1545 Jun, Other chronic pain G89.29 [facility] [place] [address] [address]- 6812 Jun, [facility] [place] [id number] [place] [address] 37705- 7466 Jun, Diabetes type 2, controlled E11.9 ; Back muscle spasm M62.830 and Other chronic pain G89.29 [facility] [place] [id number] [place] [address] 53616- 1509 Jun, Screening breast examination Z12.31 [facility] [place] [id number] [place] [address] 76721- 1575 May, Other chronic pain G89.29 [facility] [place] [id number] [place] [address] 71090- 7833 May, [facility] [place] [id number] [place] [address] 63551- 5153 May, UTI (urinary tract infection) N39.0 [facility] [place] [address] [address]- 3227 04 May, 2017 Dysuria R30.0 [facility] [place] [id number] [place] [address] 36481- 8185 04 May, 2017 Dysuria R30.0 [facility] [place] [address] [address]- 6251 04 May, 2017 Diabetes type 2, controlled E11.9 ; sourcer current use of 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 Z79.891 and Other chronic pain G89.29 [facility] [place] [address] [address]- 9422 Apr, Diabetes type 2, controlled E11.9 [facility] [address] [address] Mar, Paronychia of great toe, right L03.031 and Dysuria R30.0 [facility] [place] [id number] [place] [address] 65809- 7656 09 Mar, 2017 Diabetes type 2, controlled E11.9 [facility] [place] [id number] [place] [address] 50820- 1285 28 Feb, 2017 Diabetes type 2, controlled E11.9 [facility] [address] [place] [address] [id number] 13 Feb, 2017 Dental examination Z01.20 [facility] [place] [id number] [place] [address] 86757- 7361 11 Feb, 2017 Diabetes type 2, controlled E11.9 [facility] [place] [id number] [place] [address] 62427- 8012 07 Feb, 2017 Diabetes type 2, controlled E11.9 [facility] [place] [id number] [place] [address] 03252- 9581 Jan, Diabetes type 2, controlled E11.9 [facility] [place] [id number] [place] [address] 13913- 1678 Dec, Diabetes type 2, controlled E11.9 [facility] [place] [id number] [place] [address] 28250- 3643 Dec, Diabetes type 2, controlled E11.9 [facility] [place] [id number] [place] [address] 32088- 1206 Nov, Diabetes type 2, controlled E11.9 [facility] [place] [id number] [place] [address] 75079- 5329 Nov, Diabetes type 2, controlled E11.9 [facility] [place] [id number] [place] [address] 93961- 5914 Nov, Diabetes type 2, controlled E11.9 [facility] [place] [id number] [place] [address] 19611- 1144 Nov, Diabetes type 2, controlled E11.9 [facility] [place] [address] [address]- 5800 Nov, Diabetes type 2, controlled E11.9 [facility] [place] [id number] [place] [address] 46659- 9186 Nov, Diabetes type 2, controlled E11.9 [facility] [place] [id number] [place] [address] 03574- 7352 October, Pain in unspecified shoulder M25.519 [facility] [place] [id number] [place] [address] 63994- 9642 October, Diabetes type 2, controlled E11.9 and Cellulitis of right lower extremity L03.115 [place] [id number] [place] [address] 83634- 1791 October, Pain in unspecified shoulder M25.519 [place] [id number] [place] [address] 12420- 7649 Sep, Diabetes type 2, controlled E11.9 [facility] [place] [id number] [place] [address] 46714- 8073 Aug, Pain in unspecified shoulder M25.519 [place] [id number] [place] [address] 24568- 7512 Aug, Diabetes type 2, controlled E11.9 [place] [id number] [place] [address] 47665- 5368 Aug, Diabetes type 2, controlled E11.9 ; Dark urine R82.99 and Localized edema R60.0 [place] [id number] [place] [address] 69235- 9982 Aug, Pain in unspecified shoulder M25.519 [facility] [place] [id number] [place] [address] 95560- 4499 Jul, Pain in unspecified shoulder M25.519 [place] [id number] [place] [address] 60113- 3042 06 Jul, 2016 [place] [id number] [place] [address] 56868- 7316 02 Jul, 2016 Diabetes type 2, controlled E11.9 and [facility] current use of 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 Z79.891 [place] [id number] [place] [address] 87234- 1415 Jun, Diabetes type 2, controlled E11.9 [place] [address] 80867- 8301 Jun, Screening breast examination Z12.39 and Allergic rhinitis, unspecified allergic rhinitis trigger, unspecified rhinitis seasonality J30.9 [place] [address] 21122- 1393 10 Jun, 2016 Pain in unspecified shoulder M25.[address] 83625- 9173 May, [place] [address] 45205- 5067 May, Pain in unspecified shoulder M25.519 [place] [address] 40330- 9080 05 May, 2016 Thoracogenic scoliosis of thoracolumbar region M41.35 ; Low back pain M54.5 ; Other chronic pain G89.29 and Uncontrolled type 2 diabetes mellitus without complication, without long-term current use of insulin E11.65 [place] [id number] [place] [address] 43420- 5327 28 Apr, 2016 [place] [id number] [place] [address] 54976- 4819 Apr, [address] 78993- 0040 04 Apr, 2016 History of type 2 diabetes mellitus Z86.39 and Encounter for immunization Z23 [place] [id number] [place] [address] 12227- 5797 Mar, [facility] [place] [address] [facility] [id number] [address]- 8862 Mar, [facility] [place] [id number] [place] [address]- 3669 Feb, [facility] [place] [address] [facility] [id number] [place] [address]- 0839 Jan, [facility] [place] [address] [address]- 6146 Jan, [facility] [place] [id number] [address]- 3593 Dec, [facility] [id number] [address] -5464 Dec, Sore throat J02.9 and Allergic rhinitis, unspecified allergic rhinitis type J30.9 [facility] [place] [address] [address]- 4460 Dec, Diabetes type 2, controlled E11.9 [facility] [place] [id number] [address]- 1308 Nov, [facility] [place] [id number] [address]- 1400 Nov, [facility] [place] [id number] [address]- 9523 October, [facility] [place] [id number] [address]- 8641 October, [facility] [place] [id number] [address]- 5734 Sep, [facility] [place] [id number] [address]- 3528 Aug, [facility] [place] [id number] 3735 Aug, Diabetes type 2, controlled E11.9 ; UTI (urinary tract infection) N39.0 and Bacterial infection A49.9 [place] [address] [place] [address] 07924- 6660 Jul, [place] [id number] [place] [address] 02614- 0209 Jul, [place] [id number] [place] [address] 91547- 7277 Jul, Pharyngitis J02.9 and Seborrheic keratoses L82.1 [place] [id number] [place] [address] 69977- 6641 Jun, [place] [address] 81166- 1642 May, [place] [id number] [place] [address] 36382- 2152 May, Skin tags, multiple acquired L91.8 ; Seborrheic keratoses L82.1 and Diabetes type 2, controlled E11.9 [place] [id number] [place] [address] 74330- 8258 May, Well woman exam Z01.419 ; Papanicolaou [...] Other fatigue R53.83 and Other hemorrhoids K64.8 [place] [id number] [place] [address] 19162- 8514 May, [place] [id number] [place] [address] 11854- 2398 May, [place] [id number] [place] [address] 29100- 2064 Apr, Seborrheic keratosis L82.1 and Diabetes type 2, controlled E11.9 [facility] [place] [id number] [place] [address] 40778- 4769 Apr, Seborrheic keratosis L82.1 and Diabetes type 2, controlled E11.9 [facility] [place] [id number] [place] [address] 89836- 9672 Mar, [facility] [place] [address] 80830- 0417 Mar, [facility] [place] [id number] [place] [address] 87197- 8066 Mar, Nevoid hyperpigmentation L81.9 ; Encounter for immunization Z23 ; Skin tags, multiple acquired L91.8 and Seborrheic keratoses L82.1 [facility] [place] [id number] [place] [address] 94645- 7111 Feb, [facility] [place] [id number] [place] [address] 72278- 5604 Feb, [facility] [place] [id number] [place] [address] 43664- 3629 Feb, [facility] [place] [id number] [place] [address] 00794- 6750 Feb, Diabetes 250.00 ; Tinea corporis 110.5 and Shoulder pain, left 719.41 [facility] [place] [id number] [place] [address] 12906- 8681 Jan, [facility] [place] [id number] [place] [address] 95492- 4602 Dec, [facility] [place] [address] 16265- 9923 Dec, [facility] [place] [id number] [place] [address] 81368- 6401 Dec, Seborrheic keratoses 702.19 ; Diabetes 250.00 and Hypoglycemia 251.2 [facility] [place] [address] [id number] [place] [address]- 3891 Nov, [facility] [place] [address] [facility] [id number] [place] [address]- 7635 Nov, Abnormal mammogram 793.80 [facility] [place] [address] [facility] [id number] [place] [address]- 5611 October, Diabetes 250.00 and Colon polyp 211.3 [facility] [place] [address] [id number] [address]- 0398 Sep, [facility] [place] [address] [id number] [place] [address]- 0703 Sep, [facility] [place] [address] [facility] [id number] [place] [address]- 0656 Sep, [facility] [place] [id number] [place] [address]- 9254 Aug, [facility] [place] [address] [id number] [place] [address]- 5436 Aug, [facility] [place] [address] [id number] [place] [address]- 2402 Jul, [facility] [place] [address] [facility] [id number] [place] [address]- 4153 Jul, [facility] [place] [id number] [address]- 9464 Jun, [facility] [place] [id number] [place] [address]- 3640 Jun, [facility] [place] [address] [id number] [place] [address]- 8375 Jun, [facility] [place] [address] [facility] [id number] [place] 7671 Jun, [facility] [place] [id number] [place] [address]- 1606 Jun, [facility] [place] [facility] [address] [id number] [place] [address]- 4377 Jun, [facility] [place] [facility] [address] [id number] [place] [address]- 4857 May, [facility] [place] [facility] [address] [id number] [place] [address]- 4199 May, [facility] [place] [facility] [address] [id number] [place] [address]- 0242 Apr, [facility] [place] [facility] [address] [id number] [place] [address]- 5114 Apr, [facility] [place] [facility] [address] [id number] [place] [address]- 7737 Apr, [facility] [place] [facility] [address] [id number] [place] [address]- 2534 Apr, [facility] [place] [facility] [address] [id number] [place] [address]- 7353 Apr, [facility] [place] [facility] [address] [id number] [place] [address]- 9941 Apr, [facility] [place] [facility] [address] [id number] [place] [address]- 1532 Apr, [facility] [place] [facility] [address] [id number] [place] [address] Apr, [facility] [place] [facility] [address] [id number] [place] [address] Apr, [facility] [place] [facility] [address] [id number] [place] [address] Apr, [facility] [place] [facility] [address] [id number] [place] [address] Mar, [facility] [place] [facility] [address] [id number] [place] [address] Mar, [facility] [place] [facility] [address] [id number] [place] [address] Mar, [facility] [place] [facility] [address] [id number] [place] [address] Mar, [facility] [place] [facility] [address] [id number] [place] [address] Mar, [facility] [place] [facility] [address] [id number] [place] [address] Mar, [facility] [place] [facility] [address] [id number] [place] [address] Mar, [facility] [place] [facility] [address] [id number] [place] [address] Mar, [facility] [place] [facility] [address] [id number] [place] [address] Feb, [facility] [place] [facility] [address] [id number] [place] [address] Feb, [facility] [place] [facility] [address] [id number] [place] [address] Feb, [facility] [place] [facility] [address] [id number] [place] [address] Feb, [facility] [place] [facility] [address] [id number] [place] [address] Jan, [facility] [place] [facility] [address] [id number] [place] [address] Jan, [facility] [place] [facility] [address] [id number] [address] Dec, [facility] [place] [facility] [address] [id number] [place] [address] Dec, [facility] [place] [facility] [address] [id number] [address] Nov, [facility] [place] [facility] [address] [id number] [place] [address] Nov, [facility] [place] [facility] [address] [id number] [place] [address] Nov, [facility] [place] [facility] [address] [id number] [place] [address] Nov, [facility] [place] [facility] [address] [id number] [place] [address] October, [facility] [place] [facility] [address] [id number] [place] [address] October, [facility] [place] [facility] [address] [id number] [place] [address] October, [facility] [place] [facility] [address] [id number] [place] [address] October, [facility] [place] [facility] [address] [id number] [place] [address] October, [facility] [place] [facility] [address] [id number] [place] [address] October, [facility] [place] [facility] [address] [id number] [place] [address] October, [facility] [place] [facility] [address] [id number] [place] [address] October, [facility] [place] [facility] [address] [id number] [place] [address] Aug, [facility] [place] [facility] [address] [id number] [place] [address] Aug, [facility] [place] [facility] [address] [id number] [place] [address] Jul, [facility] [place] [facility] [address] [id number] [place] [address] Jul, [facility] [place] [facility] [address] [id number] [place] [address] Jul, [facility] [place] [facility] [address] [id number] [place] [address] Jul, [facility] [place] [facility] [address] [id number] [place] [address] Jul, [facility] [place] [facility] [address] [id number] [place] [address] Jun, [facility] [place] [facility] [address] [id number] [place] [address] Jun, [facility] [place] [facility] [address] [id number] [place] [address] May, [facility] [place] [facility] [address] [id number] [place] [address] May, [facility] [place] [facility] [address] [id number] [place] [address] Apr, [facility] [place] [facility] [address] [id number] [place] [address] Apr, [facility] [place] [facility] [address] [id number] [address] Mar, [facility] [place] [facility] [address] [id number] [place] [address]398 Mar, [facility] [place] [facility] [address] [id number] [address] Mar, [facility] [place] [facility] [address] [id number] [place] [address] Feb, [facility] [place] [facility] [address] [id number] [address] 20 Feb, 2013 [facility] [place] [facility] [address] [id number] [place] [address] 17 Feb, 2013 [facility] [place] [facility] [address] [id number] [address] 04 Feb, 2013 [facility] [place] [facility] [address] [id number] [place] [address] 04 Feb, 2013 [facility] [place] [facility] [address] [id number] [place] [address] Jan, [facility] [address] [id number] [place] [address] 97[address] Dec, [facility] [place] [facility] [address] [id number] [place] [address] 8750 Nov, [facility] [place] [facility] [address] [id number] [place] [address] October, [facility] [place] [facility] [address] [id number] [place] [address] 6210 Sep, [facility] [place] [facility] [address] [id number] [place] [address] Aug, [facility] [place] [facility] [address] [id number] [place] [address] 8414 Aug, [facility] [address] [id number] [place] [address] 8401 Aug, [facility] [place] [facility] [address] [id number] [place] [address] 9571 May, [facility] [address] [id number] [place] [address]- 7581 May, [facility] [place] [facility] [address] [facility] [id number] [place] [address]- 5861 May, [facility] [place] [facility] [address] [id number] [place] [address]- 1821 May, [facility] [place] [facility] [address] [id number] [place] [address]- 5052 11 May, 2012 [facility] [place] [facility] [address] [id number] [place] [address]- 6377 16 Apr, 2012 [facility] [place] [facility] [address] [id number] [place] [address]- 6661 16 Apr, 2012 [facility] [place] [facility] [address] [facility] [id number] [place] [address]- 9178 14 Apr, 2012 [facility] [place] [facility] [address] [id number] [place] [address]- 6754 14 Apr, 2012 [facility] [place] [facility] [address] [id number] [place] [address]- 2216 07 Apr, 2012 [facility] [place] [facility] [address] [id number] [place] [address] 2606 Apr, [facility] [place] [facility] [address] [id number] [place] [address]- 2013 Apr, [facility] [place] [facility] [address] [id number] [place] [address] 46[address] Apr, [facility] [place] [facility] [address] [id number] [place] [address] 5098 Mar, [facility] [place] [facility] [address] [id number] [place] [address] 7013 Mar, [facility] [place] [facility] [address] [id number] [place] [address] 2810 Mar, [facility] [place] [facility] [address] [id number] [place] [address] 7644 Mar, [facility] [place] [facility] [address] [id number] [place] [address] 9690 Mar, [facility] [place] [facility] [address] [facility] [id number] [place] [address]- 0663 Mar, [facility] [place] [facility] [address] [id number] [place] [address] 9381 Mar, [facility] [place] [facility] [address] [id number] [place] [address]- [address]12 28 Feb, 2012 [facility] [place] [facility] [address] [id number] [place] [address]- 4056 24 Sep2011 [facility] [place] [facility] [address] [id number] [place] [address]- 1586 20 Feb, 2012 [facility] [place] [facility] [address] [id number] [place] [address] 8925 Feb, [facility] [place] [facility] [address] [id number] [place] [address] 3480 Jan, [facility] [place] [facility] [address] [id number] [place] [address] 1344 Jan, [facility] [place] [facility] [address] [id number] [place] [address]- 4768 Jan, [facility] [place] [facility] [address] [id number] [place] [address] 5715 Jan, [facility] [place] [facility] [address] [id number] [place] [address]- 5941 Jan, [facility] [place] [facility] [address] [id number] [place] [address]- 5250 Jan, [facility] [place] [facility] [address] [id number] [place] [address]- 6044 Dec, [facility] [place] [facility] [address] [id number] [place] [address]- 3866 Dec, [facility] [place] [facility] [address] [id number] [place] [address]- 2812 Dec, [facility] [place] [facility] [address] [id number] [place] [address]- 5197 Dec, [facility] [place] [facility] [address] [id number] [place] [address]- 9924 Dec, [facility] [place] [facility] [address] [id number] [place] [address]- 4829 Dec, [facility] [place] [facility] [address] [id number] [place] [address]- 6118 Dec, [facility] [place] [facility] [address] [id number] [place] [address] 4112 Dec, [facility] [place] [facility] [address] [id number] [place] [address] 2380 Nov, [facility] [place] [facility] [address] [id number] [place] [address] 5835 11 Nov, 2011 [facility] [place] [facility] [address] [id number] [place] [address]- 4958 08 Nov, 2011 [facility] [place] [facility] [address] [id number] [place] [address]- 6536 07 Nov, 2011 [facility] [place] [facility] [address] [id number] [place] [address] 5156 October, [facility] [place] [facility] [address] [id number] [place] [address]- 8846 October, [facility] [place] [facility] [address] [id number] [place] [address]- 4961 Sep, [facility] [place] [facility] [address] [id number] [place] [address]- 8076 Sep, [facility] [place] [facility] [address] [id number] [place] [address]- 2680 Aug, [facility] [place] [facility] [address] [id number] [place] [address]- 2065 16 Aug, 2011 [facility] [place] [facility] [address] [id number] [place] [address]- 1753 Aug, [facility] [place] [facility] [address] [facility] [id number] [place] [address]- 9465 Aug, [facility] [place] [facility] [address] [id number] [place] [address]- 1440 05 Aug, 2011 [facility] [place] [facility] [address] [id number] [place] [address]- 9562 08 Jul, 2011 [facility] [place] [facility] [address] [id number] [place] [address]- 0146 06 Jul, 2011 [facility] [place] [facility] [address] [id number] [place] [address]- 2546 Jul, [facility] [place] [facility] [address] [id number] [place] [address]- 7786 Jul, [facility] [address] [id number] [place] [address]- 7294 Jun, [facility] [place] [facility] [address] [id number] [place] [address]- 3981 Jun, [facility] [place] [facility] [address] [id number] [place] [address]- 9733 Jun, [facility] [place] [facility] [address] [id number] [place] [address]- 3779 Jun, [facility] [place] [facility] [address] [id number] [place] [address]- 0446 Jun, [facility] [place] [facility] [address] [id number] [place] [address]- 0923 May, [facility] [place] [facility] [address] [facility] [id number] [place] [address]- 3162 May, [facility] [place] [facility] [address] [id number] [place] [address]- 5077 May, [facility] [place] [facility] [address] [facility] [id number] [place] [address]- 1323 May, [facility] [place] [facility] [address] [facility] [id number] [place] [address]- 7112 May, [facility] [place] [facility] [address] [facility] [id number] [place] [address]- 8121 May, [facility] [place] [facility] [address] [id number] [place] [address]- 3032 Apr, [facility] [place] [facility] [address] [id number] [place] [address]- 4403 Apr, [facility] [place] [facility] [address] [id number] [place] [address]- 6887 Mar, [facility] [place] [facility] [address] [id number] [place] [address]- 8451 Mar, [facility] [place] [facility] [address] [id number] [place] [address]- 5553 October, [facility] [place] [id number] [address] [address] May, [facility] [place] [id number] [address]- 7484 Apr, [facility] [place] [id number] [address]- 1151 Jul, [facility], [place] [id number] [place] [address] 9[address]672- 0346 May, [facility], [place] [id number] [place] [address]- 0534 May, [facility] [place] [id number] [place] [address] 8[address]84- 2144 May, [facility], [place] [id number] [place] [address]- 8176 Apr, [facility], [place] [id number] [address]- 2533 Apr, [facility], [place] [id number] [place] [address]- 7236 Mar, [facility], [place] [id number] [address]- 9927 Jan, [facility], [place] [id number] [address]- 9565 Nov, IMMUNIZATIONS No Known Immunizations SOCIAL HISTORY Never Assessed REASON FOR VISIT Lab (walk-in) PLAN OF CARE VITAL SIGNS MEDICATIONS Unknown Medications RESULTS No Results PROCEDURES Procedure Date Ordered Result Body Site LAB NOT BILLED BY [facility] September 20, 2017 MICROALBUMIN, SEMIQUANT September 20, 2017 INSTRUCTIONS MEDICATIONS ADMINISTERED No Known Medications [...]
--- OUTSIDE RECORDS SUMMARY | 2018-02-19 21:31 | XMS REPORT ---
Author Author BOOGIE ARAUJO Organization [facility] Address [address] [place] [address] Care Team Providers Care Diet Technician Registered Name Role Phone BOOGIE ARAUJO Unavailable PROBLEMS Type Condition ICD9-CM Code ULK33-GH Code Onset Dates Condition Status SNOMED Code Problem History of abnormal cervical Pap smear Z87.898 Active 373900219 Problem Thoracogenic scoliosis of thoracolumbar region M41.35 Active 13748362 Problem Uncontrolled type 2 diabetes mellitus without complication, without long-term current use of insulin E11.65 Active 986493270 Problem Diabetes type 2, controlled E11.9 Active 88576252 Problem Thyroid nodule E04.1 Active 362436920 Problem History of colon polyps Z86.010 Active 131466639 Problem Other iron deficiency anemia D50.8 Active 97699147 Problem Iron deficiency anemia due to chronic blood loss D50.0 Active 767065358 Problem Screening breast examination Z12.39 Active 177626656 Problem Allergic rhinitis, unspecified allergic rhinitis trigger, unspecified rhinitis seasonality J30.9 Active 89474690 Problem Controlled type 2 diabetes mellitus without complication, without long -term current use of insulin E11.9 Active 324290276 Problem Other chronic pain G89.29 Active 14816367 ALLERGIES No Information ENCOUNTERS Encounter Location Date Diagnosis [facility] [id number] [place] [address] 86496- 7754 Jan, [facility] [id number], [place] [address] 3618 Dec, Other chronic pain G89.29 [facility] [id number] [place] [address] 32273- 2700 Dec, Diabetes type 2, controlled E11.9 [facility] [id number] [address] 7336 Nov, Other chronic pain G89.29 [facility] [id number] [address] 8249 Nov, [facility] [id number] [place] [address] 43258- 8646 Nov, [facility] [address] [address] 9538 October, Diabetes type 2, controlled E11.9 and Acute cystitis without hematuria N30.00 [facility] [address] [address] 3802 October, [facility] [id number] [place] [address] 39346- 9951 October, [facility] [id number] [place] [address] 03151- 8589 October, [facility] [id number] [place] [address] 90463- 3100 October, Other chronic pain G89.29 [facility] [address] [address]- 5667 Sep, Diabetes type 2, controlled E11.9 [facility] [address] [address] 6337 Sep, [facility] [address] [place] [address] 5597 Sep, Diabetes type 2, controlled E11.9 [facility] [address] [address]- 6533 16 Sep, 2017 Other chronic pain G89.29 [facility] [address] [place] [address] 5315 13 Sep, 2017 Other iron deficiency anemia D50.8 [facility] [address] [place] [address]- 8846 12 Sep, 2017 Other iron deficiency anemia D50.8 [facility] [id number] [place] [address] 60749- 7354 Sep, Iron deficiency anemia due to chronic blood loss D50.0 and Dysuria R30.0 [place] [id number] [place] [address] 74511- 0848 Sep, Dysuria R30.0 [facility] [facility] [id number] [place] [address] 43001- 5670 Sep, Iron deficiency anemia due to chronic blood loss D50.0 [facility] [id number] [place] [address] 57176- 9264 Sep, [place] [id number] [place] [address] 33863- 5239 Sep, Controlled type 2 diabetes mellitus without complication, without long-term current use of insulin E11.9 ; Leg cramps R25.2 ; Low back pain M54.5 and Other chronic pain G89.29 [place] [address] [place] [address] 24742- 9472 Sep, Controlled type 2 diabetes mellitus without complication, without long-term current use of insulin E11.9 ; Low back pain M54.5 ; Other chronic pain G89.29 and Leg cramps R25.2 [place] [address] [place] [address] 82944- 2330 Aug, Other chronic pain G89.29 [place] [id number] [place] [address] 74066- 1084 Jul, Other chronic pain G89.29 [facility] [id number] [place] [address] 60062- 5433 Jul, Pneumonia of left lower lobe due to infectious organism J18.1 [facility] [id number] [place] [address] 36446 -1552 Jul, Dysuria R30.0 ; Cough in adult patient R05 and Pneumonia of left lower lobe due to infectious organism J18.1 [facility] [facility] [id number] [address]- 0126 08 Jul, 2017 [facility] [address], [place] [address]- 4813 Jun, Other chronic pain G89.29 [facility] [address], [place] [address]- 5575 Jun, [facility] [address] [place] [address] 13032- 4468 Jun, Diabetes type 2, controlled E11.9 ; Back muscle spasm M62.830 and Other chronic pain G89.29 [facility] [id number] [place] [address] 43704- 0581 Jun, Screening breast examination Z12.31 [facility] [address] [place] [address] 97017- 8466 May, Other chronic pain G89.29 [facility] [address] [place] [address] 11535- 3204 May, [facility] [id number] [place] [address] 82253- 6003 May, UTI (urinary tract infection) N39.0 [facility] [address], [place] [address]- 1172 04 May, 2017 Dysuria R30.0 [facility] [address] [place] [address] 39492- 3415 04 May, 2017 Dysuria R30.0 [facility] [address], [place] [address]- 9785 04 May, 2017 Diabetes type 2, controlled E11.9 ; 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 and Other chronic pain G89.29 [facility] [address], [place] [address]- 7760 Apr, Diabetes type 2, controlled E11.9 [facility] [address], [place] [address] Mar, Paronychia of great toe, right L03.031 and Dysuria R30.0 [facility] [id number] [place] [address] 19096- 3202 09 Mar, 2017 Diabetes type 2, controlled E11.9 [facility] [id number] [place] [address] 05623- 3094 28 Feb, 2017 Diabetes type 2, controlled E11.9 [facility] [address] [place] [address] [id number] 13 Feb, 2017 Dental examination Z01.20 [facility] [id number] [place] [address] 27146- 0849 11 Feb, 2017 Diabetes type 2, controlled E11.9 [facility] [id number] [place] [address] 13597- 6620 07 Feb, 2017 Diabetes type 2, controlled E11.9 [facility] [id number] [place] [address] 82575- 6533 Jan, Diabetes type 2, controlled E11.9 [facility] [id number] [place] [address] 27695- 3871 Dec, Diabetes type 2, controlled E11.9 [facility] [id number] [place] [address] 34735- 4949 Dec, Diabetes type 2, controlled E11.9 [facility] [id number] [place] [address] 71670- 0967 Nov, Diabetes type 2, controlled E11.9 [facility] [address] [place] [address] 82671- 3560 Nov, Diabetes type 2, controlled E11.9 [facility] [id number] [place] [address] 39525- 7348 Nov, Diabetes type 2, controlled E11.9 [facility] [address] [place] [address] 88610- 6562 Nov, Diabetes type 2, controlled E11.9 [facility] [address], [place] [address]- 9585 Nov, Diabetes type 2, controlled E11.9 [facility] [address] [place] [address] 95368- 6828 Nov, Diabetes type 2, controlled E11.9 [facility] [id number] [place] [address] 01362- 7981 October, Pain in unspecified shoulder M25.519 [facility] [id number] [place] [address] 35818- 4935 October, Diabetes type 2, controlled E11.9 and Cellulitis of right lower extremity L03.115 [facility] [facility] [id number] [place] [address] 29815- 6811 October, Pain in unspecified shoulder M25.519 [facility] [id number] [place] [address] 72134- 4205 Sep, Diabetes type 2, controlled E11.9 [facility] [id number] [place] [address] 77610- 0990 Aug, Pain in unspecified shoulder M25.519 [place] [id number] [place] [address] 43524- 7656 Aug, Diabetes type 2, controlled E11.9 [place] [id number] [place] [address] 81995- 4240 Aug, Diabetes type 2, controlled E11.9 ; Dark urine R82.99 and Localized edema R60.0 [place] [id number] [place] [address] 06608- 8697 Aug, Pain in unspecified shoulder M25.519 [facility] [id number] [place] [address] 98494- 7605 Jul, Pain in unspecified shoulder M25.519 [place] [id number] [place] [address] 81839- 6130 06 Jul, 2016 [place] [id number] [place] [address] 79717- 2339 02 Jul, 2016 Diabetes type 2, controlled E11.9 and [facility] current use of 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 Z79.891 [place] [id number] [place] [address] 14951- 3212 Jun, Diabetes type 2, controlled E11.9 [place] [address] 55334- 0241 Jun, Screening breast examination Z12.39 and Allergic rhinitis, unspecified allergic rhinitis trigger, unspecified rhinitis seasonality J30.9 [place] [address] 85035- 4769 10 Jun, 2016 Pain in unspecified shoulder M25.[address] 64084- 8377 May, [place] [address] 20171- 3175 May, Pain in unspecified shoulder M25.519 [place] [address] 18908- 0447 05 May, 2016 Thoracogenic scoliosis of thoracolumbar region M41.35 ; Low back pain M54.5 ; Other chronic pain G89.29 and Uncontrolled type 2 diabetes mellitus without complication, without long-term current use of insulin E11.65 [place] [id number] [place] [address] 98644- 8663 28 Apr, 2016 [place] [id number] [place] [address] 95920- 0430 Apr, [address] 54999- 2378 04 Apr, 2016 History of type 2 diabetes mellitus Z86.39 and Encounter for immunization Z23 [place] [id number] [place] [address] 98633- 5561 Mar, [facility] [address] [facility] [id number] [address]- 9024 Mar, [facility] [address] [place] [address]- 2651 Feb, [facility] [address] [facility] [id number] [place] [address]- 2084 Jan, [facility] [address], [place] [address]- 1280 Jan, [facility] [id number], [place] [address]- 6714 Dec, [facility] [id number], [place] [address] -5801 Dec, Sore throat J02.9 and Allergic rhinitis, unspecified allergic rhinitis type J30.9 [facility] [address], [place] [address]- 5918 Dec, Diabetes type 2, controlled E11.9 [facility] [id number], [place] [address]- 4016 Nov, [facility] [address] [place] [address]- 2282 Nov, [facility] [id number], [place] [address]- 8765 October, [facility] [id number], [place] [address]- 0374 October, [facility] [id number], [place] [address]- 4041 Sep, [facility] [id number], [place] [address]- 2504 Aug, [facility] [id number] 1273 Aug, Diabetes type 2, controlled E11.9 ; UTI (urinary tract infection) N39.0 and Bacterial infection A49.9 [place] [address] [place] [address] 49703- 9762 Jul, [place] [id number] [place] [address] 54325- 3881 Jul, [facility] [id number] [place] [address] 23797- 0785 Jul, Pharyngitis J02.9 and Seborrheic keratoses L82.1 [place] [id number] [place] [address] 86635- 8947 Jun, [place] [address] 23421- 5825 May, [place] [id number] [place] [address] 20695- 5829 May, Skin tags, multiple acquired L91.8 ; Seborrheic keratoses L82.1 and Diabetes type 2, controlled E11.9 [place] [id number] [place] [address] 40541- 5359 May, Well woman exam Z01.419 ; Papanicolaou [...] Other fatigue R53.83 and Other hemorrhoids K64.8 [place] [id number] [place] [address] 25003- 1007 May, [place] [id number] [place] [address] 04957- 2527 May, [facility] [id number] [place] [address] 02592- 2852 Apr, Seborrheic keratosis L82.1 and Diabetes type 2, controlled E11.9 [facility] [id number] [place] [address] 33046- 4603 Apr, Seborrheic keratosis L82.1 and Diabetes type 2, controlled E11.9 [facility] [id number] [place] [address] 68759- 3173 Mar, [facility] [address] 15149- 9983 Mar, [facility] [id number] [place] [address] 81063- 5885 Mar, Nevoid hyperpigmentation L81.9 ; Encounter for immunization Z23 ; Skin tags, multiple acquired L91.8 and Seborrheic keratoses L82.1 [facility] [id number] [place] [address] 69188- 3422 Feb, [facility] [id number] [place] [address] 06459- 1788 Feb, [facility] [id number] [place] [address] 37606- 5006 Feb, [facility] [id number] [place] [address] 41939- 1372 Feb, Diabetes 250.00 ; Tinea corporis 110.5 and Shoulder pain, left 719.41 [facility] [id number] [place] [address] 01496- 6698 Jan, [facility] [id number] [place] [address] 15038- 9423 Dec, [facility] [address] 55219- 9427 Dec, [facility] [id number] [place] [address] 13601- 0362 Dec, Seborrheic keratoses 702.19 ; Diabetes 250.00 and Hypoglycemia 251.2 [facility] [address] [id number] [place] [address]- 7751 Nov, [facility] [address] [facility] [id number] [place] [address]- 6939 Nov, Abnormal mammogram 793.80 [facility] [address] [facility] [id number] [place] [address]- 4972 October, Diabetes 250.00 and Colon polyp 211.3 [facility] [address] [id number], [place] [address]- 9422 Sep, [facility] [address] [id number] [place] [address]- 6759 Sep, [facility] [address] [facility] [id number] [place] [address]- 7623 Sep, [facility] [address] [place] [address]- 4968 Aug, [facility] [address] [id number] [place] [address]- 3633 Aug, [facility] [address] [id number] [place] [address]- 0920 Jul, [facility] [address] [facility] [id number] [place] [address]- 5371 Jul, [facility] [id number] [address]- 9046 Jun, [facility] [id number] [place] [address]- 3793 Jun, [facility] [address] [id number] [place] [address]- 9445 Jun, [facility] [address] [facility] [id number] [place] 6016 Jun, [facility] [id number] [place] [address]- 6216 Jun, [facility] [place] [facility] [address] [id number] [place] [address]- 8530 Jun, [facility] [place] [facility] [address] [id number] [place] [address]- 8982 May, [facility] [place] [facility] [address] [id number] [place] [address]- 0719 May, [facility] [place] [facility] [address] [id number] [place] [address]- 9907 Apr, [facility] [place] [facility] [address] [id number] [place] [address]- 2480 Apr, [facility] [place] [facility] [address] [id number] [place] [address]- 2640 Apr, [facility] [place] [facility] [address] [id number] [place] [address]- 6287 Apr, [facility] [place] [facility] [address] [id number] [place] [address]- 9284 Apr, [facility] [place] [facility] [address] [id number] [place] [address]- 7027 Apr, [facility] [place] [facility] [address] [id number] [place] [address]- 8006 Apr, [facility] [place] [facility] [address] [id number] [place] [address]- 1048 Apr, [facility] [place] [facility] [address] [id number] [place] [address]- 0168 Apr, [facility] [place] [facility] [address] [id number] [place] [address]- 8691 Apr, [facility] [place] [facility] [address] [id number] [place] [address]- 5257 Mar, [facility] [place] [facility] [address] [id number] [place] [address]- 4108 Mar, [facility] [place] [facility] [address] [id number] [place] [address]- 8043 Mar, [facility] [place] [facility] [address] [id number] [place] [address]- 7775 Mar, [facility] [place] [facility] [address] [id number] [place] [address]- 1083 Mar, [facility] [place] [facility] [address] [id number] [place] [address]- 6708 Mar, [facility] [place] [facility] [address] [id number] [place] [address]- 3964 Mar, [facility] [place] [facility] [address] [id number] [place] [address]- 6533 Mar, [facility] [place] [facility] [address] [id number] [place] [address]- 5014 Feb, [facility] [place] [facility] [address] [id number] [place] [address]- 4070 Feb, [facility] [place] [facility] [address] [id number] [place] [address]- 0074 Feb, [facility] [place] [facility] [address] [id number] [place] [address]- 1705 Feb, [facility] [place] [facility] [address] [id number] [place] [address]- 5113 Jan, [facility] [place] [facility] [address] [id number] [place] [address]- 0011 Jan, [facility] [place] [facility] [address] [id number], [place] [address]- 1702 Dec, [facility] [place] [facility] [address] [id number] [place] [address]- 5680 Dec, [facility] [place] [facility] [address] [id number], [place] [address]- 6978 Nov, [facility] [place] [facility] [address] [id number] [place] [address]- 8622 Nov, [facility] [place] [facility] [address] [id number] [place] [address]- 5462 Nov, [facility] [place] [facility] [address] [id number] [place] [address]- 0094 Nov, [facility] [place] [facility] [address] [id number] [place] [address]- 3383 October, [facility] [place] [facility] [address] [id number] [place] [address]- 0124 October, [facility] [place] [facility] [address] [id number] [place] [address]- 7468 October, [facility] [place] [facility] [address] [id number] [place] 8092 October, [facility] [place] [facility] [address] [id number] [place] [address]- 4981 October, [facility] [place] [facility] [address] [id number] [place] [address]- 5396 October, [facility] [place] [facility] [address] [id number] [place] [address]- 7341 October, [facility] [place] [facility] [address] [id number] [place] [address]- 8417 October, [facility] [place] [facility] [address] [id number] [place] [address]- 0534 Aug, [facility] [place] [facility] [address] [id number] [place] [address] Aug, [facility] [place] [facility] [address] [id number] [place] [address] Jul, [facility] [place] [facility] [address] [id number] [place] [address] Jul, [facility] [place] [facility] [address] [id number] [place] [address] Jul, [facility] [place] [facility] [address] [id number] [place] [address] Jul, [facility] [place] [facility] [address] [id number] [place] [address] Jul, [facility] [place] [facility] [address] [id number] [place] [address] Jun, [facility] [place] [facility] [address] [id number] [place] [address] Jun, [facility] [place] [facility] [address] [id number] [place] [address] May, [facility] [place] [facility] [address] [id number] [place] [address] May, [facility] [place] [facility] [address] [id number] [place] [address] Apr, [facility] [place] [facility] [address] [id number] [place] [address] Apr, [facility] [place] [facility] [address] [id number], [place] [address] Mar, [facility] [place] [facility] [address] [id number] [place] [address] Mar, [facility] [place] [facility] [address] [id number], [place] [address] Mar, [facility] [place] [facility] [address] [id number], [place] [address] Feb, [facility] [place] [facility] [address] [id number], [place] [address] 20 Feb, 2013 [facility] [place] [facility] [address] [id number] [place] [address] 17 Feb, 2013 [facility] [place] [facility] [address] [id number], [place] [address] 04 Feb, 2013 [facility] [place] [facility] [address] [id number], [place] [address] 04 Feb, 2013 [facility] [place] [facility] [address] [id number], [place] [address] Jan, [facility] [address] [id number] [place] [address] Dec, [facility] [place] [facility] [address] [id number] [place] [address] Nov, [facility] [place] [facility] [address] [id number] [place] [address] October, [facility] [place] [facility] [address] [id number] [place] [address] Sep, [facility] [place] [facility] [address] [id number] [place] [address] Aug, [facility] [place] [facility] [address] [id number] [place] [address] Aug, [facility] [address] [id number] [place] [address] Aug, [facility] [place] [facility] [address] [id number] [place] [address] May, [facility] [address] [id number] [place] [address] May, [facility] [place] [facility] [address] [facility] [id number] [place] [address] May, [facility] [place] [facility] [address] [id number] [place] [address] May, [facility] [place] [facility] [address] [id number] [place] [address] 11 May, 2012 [facility] [place] [facility] [address] [id number] [place] [address] 16 Apr, 2012 [facility] [place] [facility] [address] [id number] [place] [address] 16 Apr, 2012 [facility] [place] [facility] [address] [facility] [id number] [place] [address]1 14 Apr, 2012 [facility] [place] [facility] [address] [id number] [place] [address] 14 Apr, 2012 [facility] [place] [facility] [address] [id number] [place] [address] 07 Apr, 2012 [facility] [place] [facility] [address] [id number] [place] [address]- [address] Apr, [facility] [place] [facility] [address] [id number] [place] [address] Apr, [facility] [place] [facility] [address] [id number] [place] [address] Apr, [facility] [place] [facility] [address] [id number] [place] [address] Mar, [facility] [place] [facility] [address] [id number] [place] [address] Mar, [facility] [place] [facility] [address] [id number] [place] [address]- 6[address] Mar, [facility] [place] [facility] [address] [id number] [place] [address] 28[address] Mar, [facility] [place] [facility] [address] [id number] [place] [address] Mar, [facility] [place] [facility] [address] [facility] [id number] [place] [address] Mar, [facility] [place] [facility] [address] [id number] [place] [address] 95[address] Mar, [facility] [place] [facility] [address] [id number] [place] [address] 28 Feb, 2012 [facility] [place] [facility] [address] [id number] [place] [address]- [address] 24 Sep2011 [facility] [place] [facility] [address] [id number] [place] [address] 20 Feb, 2012 [facility] [place] [facility] [address] [id number] [place] [address]- 67[address] Feb, [facility] [place] [facility] [address] [id number] [place] [address] 29[address] Jan, [facility] [place] [facility] [address] [id number] [place] [address]- [address]64 Jan, [facility] [place] [facility] [address] [id number] [place] [address]- [address]267 Jan, [facility] [place] [facility] [address] [id number] [place] [address]- 5170 Jan, [facility] [place] [facility] [address] [id number] [place] [address]- 8423 Jan, [facility] [place] [facility] [address] [id number] [place] [address]- 1872 Jan, [facility] [place] [facility] [address] [id number] [place] [address]- 72[address] Dec, [facility] [place] [facility] [address] [id number] [place] [address] 1301 Dec, [facility] [place] [facility] [address] [id number] [place] [address]- 4726 Dec, [facility] [place] [facility] [address] [id number] [place] [address]- 6687 Dec, [facility] [place] [facility] [address] [id number] [place] [address]- 6133 Dec, [facility] [place] [facility] [address] [id number] [place] [address]- 5029 Dec, [facility] [place] [facility] [address] [id number] [place] [address]- 1594 Dec, [facility] [place] [facility] [address] [id number] [place] [address]- 4776 Dec, [facility] [place] [facility] [address] [id number] [place] [address]- 0499 Nov, [facility] [place] [facility] [address] [id number] [place] [address]- 7063 11 Nov, 2011 [facility] [place] [facility] [address] [id number] [place] [address]- 5736 08 Nov, 2011 [facility] [place] [facility] [address] [id number] [place] [address]- [address] 07 Nov, 2011 [facility] [place] [facility] [address] [id number] [place] [address]- 8916 October, [facility] [place] [facility] [address] [id number] [place] [address]- 4046 October, [facility] [place] [facility] [address] [id number] [place] [address]- 4703 Sep, [facility] [place] [facility] [address] [id number] [place] [address]- 5316 Sep, [facility] [place] [facility] [address] [id number] [place] [address]- 9327 Aug, [facility] [place] [facility] [address] [id number] [place] [address]- 5100 16 Aug, 2011 [facility] [place] [facility] [address] [id number] [place] [address]- 7857 Aug, [facility] [place] [facility] [address] [facility] [id number] [place] [address]- 3428 Aug, [facility] [place] [facility] [address] [id number] [place] [address]- 5057 05 Aug, 2011 [facility] [place] [facility] [address] [id number] [place] [address]- 2933 08 Jul, 2011 [facility] [place] [facility] [address] [id number] [place] [address]- 5746 06 Jul, 2011 [facility] [place] [facility] [address] [id number] [place] [address]- 2546 Jul, [facility] [place] [facility] [address] [id number] [place] [address]- 8706 Jul, [facility] [address] [id number] [place] [address]- 1506 Jun, [facility] [place] [facility] [address] [id number] [place] [address]- 8360 Jun, [facility] [place] [facility] [address] [id number] [place] [address]- 3090 Jun, [facility] [place] [facility] [address] [id number] [place] [address]- 4363 Jun, [facility] [place] [facility] [address] [id number] [place] [address]- 8044 Jun, [facility] [place] [facility] [address] [id number] [place] [address] 0408 May, [facility] [place] [facility] [address] [facility] [id number] [place] [address]- 8143 May, [facility] [place] [facility] [address] [id number], [place] [address] May, [facility] [place] [facility] [address] [facility] [id number] [place] [address]- 8247 May, [facility] [place] [facility] [address] [facility] [id number], [place] [address]- 7443 May, [facility] [place] [facility] [address] [facility] [id number], [place] [address]- [address]77 May, [facility] [place] [facility] [address] [id number], [place] [address]- 7471 Apr, [facility] [place] [facility] [address] [id number], [place] [address] 9648 Apr, [facility] [place] [facility] [address] [id number], [place] [address]- 68[address] Mar, [facility] [place] [facility] [address] [id number], [place] [address]- 8233 Mar, [facility] [place] [facility] [address] [id number], [place] [address]- [address] October, [facility] [id number] [address] May, [facility] [id number], [place] [address] Apr, [facility] [id number], [place] [address]- [address] Jul, [facility] [id number] [address] May, [facility] [id number] [place] [address]- [address]196 May, [facility] [id number] [place] [address]- 4039 May, [facility] [id number] [place] [address]- 0071 Apr, [facility] [id number], [place] [address] 3185 Apr, [facility] [id number], [place] [address]- 3434 Mar, [facility] [id number], [place] [address]- 6[address] Jan, [facility] [id number], [place] [address] 4713 Nov, IMMUNIZATIONS No Known Immunizations SOCIAL HISTORY Never Assessed REASON FOR VISIT MTM (Medication Therapy Management) PLAN OF CARE VITAL SIGNS MEDICATIONS Unknown [...]
--- OUTSIDE RECORDS SUMMARY | 2018-02-19 21:32 | XMS REPORT ---
Author Author LAURA HINKLE [facility] Address [address] [place] [address] Care Team Providers Care Manager Equity Name Role Phone LAURA HINKLE Unavailable PROBLEMS Type Condition ICD9-CM Code SSF22-GG Code Onset Dates Condition Status SNOMED Code Problem History of abnormal cervical Pap smear Z87.898 Active 136197264 Problem Thoracogenic scoliosis of thoracolumbar region M41.35 Active 00479388 Problem Uncontrolled type 2 diabetes mellitus without complication, without long-term current use of insulin E11.65 Active 251416049 Problem Diabetes type 2, controlled E11.9 Active 57644512 Problem Thyroid nodule E04.1 Active 405702861 Problem History of colon polyps Z86.010 Active 850383972 Problem Other iron deficiency anemia D50.8 Active 61224818 Problem Iron deficiency anemia due to chronic blood loss D50.0 Active 497953670 Problem Screening breast examination Z12.39 Active 493734107 Problem Allergic rhinitis, unspecified allergic rhinitis trigger, unspecified rhinitis seasonality J30.9 Active 05535607 Problem Controlled type 2 diabetes mellitus without complication, without long -term current use of insulin E11.9 Active 695122920 Problem Other chronic pain G89.29 Active 84494609 ALLERGIES No Information ENCOUNTERS Encounter Location Date Diagnosis [facility] [id number] [address] Jan, [facility] [id number] [address] 3092 Dec, Other chronic pain G89.29 [facility] [id number] [address] 7545 Dec, Diabetes type 2, controlled E11.9 [facility] [id number] [address] 9958 Nov, Other chronic pain G89.29 [facility] [address] [facility] [place] [id number] [address] 07 Nov, 2017 [facility] [address] [facility] [id number] [address] 2546 Nov, [facility] [address] [address] October, Diabetes type 2, controlled E11.9 and Acute cystitis without hematuria N30.00 [facility] [address] [facility] [id number] [address] October, [facility] [id number] [place] [address] 73253- 4110 October, [facility] [id number] [place] [address] 26679- 9578 October, [facility] [id number] [place] [address] 83804- 5002 October, Other chronic pain G89.29 [facility] [id number] [address]- 7706 19 Sep, 2017 Diabetes type 2, controlled E11.9 [facility] [id number] [address]- 0494 16 Sep, 2017 [facility] [address] [address] 2416 Sep, Diabetes type 2, controlled E11.9 [facility] [id number] [address]- 2549 16 Sep, 2017 Other chronic pain G89.29 [facility] [address] [address]- 9158 13 Sep, 2017 Other iron deficiency anemia D50.8 [facility] [address] [address]- 1819 12 Sep, 2017 Other iron deficiency anemia D50.8 [facility] [id number] [address] 3107 Sep, Iron deficiency anemia due to chronic blood loss D50.0 and Dysuria R30.0 [facility] [id number] [place] [address] 96974- 6287 Sep, Dysuria R30.0 [facility] [id number] [place] [address] 68528- 5026 Sep, Iron deficiency anemia due to chronic blood loss D50.0 [facility] [id number] [place] [address] 75212- 8019 Sep, [facility] [address] [place] [address] 94476- 4337 Sep, Controlled type 2 diabetes mellitus without complication, without long-term current use of insulin E11.9 ; Leg cramps R25.2 ; Low back pain M54.5 and Other chronic pain G89.29 [facility] [address] [place] [address] 53117- 9591 Sep, Controlled type 2 diabetes mellitus without complication, without long-term current use of insulin E11.9 ; Low back pain M54.5 ; Other chronic pain G89.29 and Leg cramps R25.2 [facility] [id number] [place] [address] 12161- 8488 Aug, Other chronic pain G89.29 [facility] [id number] [place] [address] 19364- 8720 Jul, Other chronic pain G89.29 [facility] [id number] [place] [address] 87578- 7900 Jul, Pneumonia of left lower lobe due to infectious organism J18.1 [facility] [id number] [place] [address] 50556 -3604 12 Jul, 2017 Dysuria R30.0 ; Cough in adult patient R05 and Pneumonia of left lower lobe due to infectious organism J18.1 [facility] [id number] [address]- 0798 08 Jul, 2017 [facility] [id number] [place] [address] 76409- 0605 Jun, Other chronic pain G89.29 [facility] [id number] [place] [address] 15780- 3072 Jun, [facility] [address] [place] [address] 69811- 4232 Jun, Diabetes type 2, controlled E11.9 ; Back muscle spasm M62.830 and Other chronic pain G89.29 [facility] [address] [place] [address] 10341- 7403 Jun, Screening breast examination Z12.31 [facility] [address] [place] [address] 40952- 7523 May, Other chronic pain G89.29 [facility] [address] [place] [address] 87836- 5295 May, [facility] [address] [place] [address] 31531- 3037 May, UTI (urinary tract infection) N39.0 [facility] [address] [place] [address] 56321- 7225 04 May, 2017 Dysuria R30.0 [facility] [id number] [place] [address] 58122- 9272 May, Dysuria R30.0 [facility] [address] [place] [address] 16892- 3079 04 May, 2017 Diabetes type 2, controlled E11.9 ; snf current use of 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 Z79.891 and Other chronic pain G89.29 [facility] [address], [place] [address]- 3388 Apr, Diabetes type 2, controlled E11.9 [facility] [id number] [place] [address] 77354 -4148 Mar, Paronychia of great toe, right L03.031 and Dysuria R30.0 [facility] [address] [place] [address] 27843- 1357 09 Mar, 2017 Diabetes type 2, controlled E11.9 [facility] [address] [place] [address] 85620- 3515 28 Feb, 2017 Diabetes type 2, controlled E11.9 [facility] [id number] [place] [address] [id number] 13 Feb, 2017 Dental examination Z01.20 [facility] [id number] [place] [address] 19461- 0678 11 Feb, 2017 Diabetes type 2, controlled E11.9 [facility] [id number] [place] [address] 08347- 9951 07 Feb, 2017 Diabetes type 2, controlled E11.9 [facility] [address] [place] [address] 41726- 2408 Jan, Diabetes type 2, controlled E11.9 [facility] [address] [place] [address] 94624- 3036 Dec, Diabetes type 2, controlled E11.9 [facility] [address] [place] [address] 49741- 1322 Dec, Diabetes type 2, controlled E11.9 [facility] [address] [place] [address] 02170- 7440 Nov, Diabetes type 2, controlled E11.9 [facility] [address] [place] [address] 17671- 4232 Nov, Diabetes type 2, controlled E11.9 [facility] [address] [place] [address] 99780- 6132 Nov, Diabetes type 2, controlled E11.9 [facility] [address] [place] [address] 23279- 4949 Nov, Diabetes type 2, controlled E11.9 [facility] [address] [place] [address] 74517- 9931 Nov, Diabetes type 2, controlled E11.9 [facility] [address] [place] [address] 70923- 7814 Nov, Diabetes type 2, controlled E11.9 [facility] [address] [place] [address] 74683- 4673 October, Pain in unspecified shoulder M25.519 [facility] [address] [place] [address] 97994- 6473 October, Diabetes type 2, controlled E11.9 and Cellulitis of right lower extremity L03.115 [facility] [address] [place] [address] 32061- 4126 October, Pain in unspecified shoulder M25.519 [facility] [address] [place] [address] 10694- 4202 Sep, Diabetes type 2, controlled E11.9 [facility] [address] [place] [address] 43554- 8325 Aug, Pain in unspecified shoulder M25.519 [facility] [address] [place] [address] 80100- 4234 Aug, Diabetes type 2, controlled E11.9 [facility] [address] [place] [address] 49271- 5270 Aug, Diabetes type 2, controlled E11.9 ; Dark urine R82.99 and Localized edema R60.0 [facility] [address] [place] [address] 91419- 1876 Aug, Pain in unspecified shoulder M25.519 [facility] [address] [place] [address] 47182- 5385 Jul, Pain in unspecified shoulder M25.519 [facility] [address] [place] [address] 43748- 9381 06 Jul, 2016 [facility] [address] [place] [address] 95954- 6125 02 Jul, 2016 Diabetes type 2, controlled E11.9 and snf current use of 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 Z79.891 [facility] [address] [place] [address] 95813- 8462 Jun, Diabetes type 2, controlled E11.9 [facility] [address] 76976- 5286 Jun, Screening breast examination Z12.39 and Allergic rhinitis, unspecified allergic rhinitis trigger, unspecified rhinitis seasonality J30.9 [facility] [address] 94453- 2554 10 Jun, 2016 Pain in unspecified shoulder M25.[address] 49943- 7908 May, [facility] [address] 79221- 4461 May, Pain in unspecified shoulder M25.519 [facility] [address] 24773- 5760 05 May, 2016 Thoracogenic scoliosis of thoracolumbar region M41.35 ; Low back pain M54.5 ; Other chronic pain G89.29 and Uncontrolled type 2 diabetes mellitus without complication, without long-term current use of insulin E11.65 [facility] [address] [place] [address] 81506- 4201 Apr, [facility] [address] [place] [address] 08991- 1440 Apr, [address] 37699- 0267 04 Apr, 2016 History of type 2 diabetes mellitus Z86.39 and Encounter for immunization Z23 [facility] [address] 62497- 4324 Mar, [facility] [address] [facility] [place] [id number] [address]- 3169 Mar, [facility] [id number] [address]- 2479 Feb, [facility] [id number] 5645 Jan, [facility] [address], [place] [address]- 4145 Jan, [facility] [id number] [address]- 2470 Dec, [facility] [id number] [address] -3451 Dec, Sore throat J02.9 and Allergic rhinitis, unspecified allergic rhinitis type J30.9 [facility] [address], [place] [address]- 7136 Dec, Diabetes type 2, controlled E11.9 [facility] [id number] [address]- 5557 Nov, [facility] [id number] [address]- 4146 Nov, [facility] [id number], [place] [address]- 1899 October, [facility] [id number], [place] [address]- 2058 October, [facility] [id number] 7254 Sep, [facility] [id number], [place] [address]- 5035 Aug, [facility] [id number] 6679 Aug, Diabetes type 2, controlled E11.9 ; UTI (urinary tract infection) N39.0 and Bacterial infection A49.9 [facility] [address], [place] [address]- 8685 Jul, [facility] [address] [place] [address] 36187- 2269 Jul, [facility] [address] [place] [address] 73923- 2072 Jul, Pharyngitis J02.9 and Seborrheic keratoses L82.1 [facility] [address] [place] [address] 95503- 7635 Jun, [facility] [address] 05840- 1757 May, [facility] [address] [place] [address] 53958- 1508 May, Skin tags, multiple acquired L91.8 ; Seborrheic keratoses L82.1 and Diabetes type 2, controlled E11.9 [facility] [address] [place] [address] 09039- 0769 May, Well woman exam Z01.419 ; Papanicolaou [...] Other fatigue R53.83 and Other hemorrhoids K64.8 [facility] [address] [place] [address] 21084- 0718 May, [facility] [address] [place] [address] 38938- 4928 May, [facility] [address] [place] [address] 74551- 1392 Apr, Seborrheic keratosis L82.1 and Diabetes type 2, controlled E11.9 [facility] [address] [place] [address] 79784- 4800 Apr, Seborrheic keratosis L82.1 and Diabetes type 2, controlled E11.9 [facility] [address] [place] [address] 44882- 4743 Mar, [facility] [address] 76214- 7862 Mar, [facility] [address] [place] [address] 39696- 8326 Mar, Nevoid hyperpigmentation L81.9 ; Encounter for immunization Z23 ; Skin tags, multiple acquired L91.8 and Seborrheic keratoses L82.1 [facility] [address] [place] [address] 61878- 8306 Feb, [facility] [address] [place] [address] 94675- 5503 Feb, [facility] [address] [place] [address] 56950- 1954 Feb, [facility] [address] [place] [address] 10507- 0013 Feb, Diabetes 250.00 ; Tinea corporis 110.5 and Shoulder pain, left 719.41 [facility] [address] [place] [address] 43640- 8449 Jan, [facility] [address] [place] [address] 27147- 2847 Dec, [facility] [address] 75093- 3508 Dec, [facility] [address] [place] [address] 32525- 4682 Dec, Seborrheic keratoses 702.19 ; Diabetes 250.00 and Hypoglycemia 251.2 [facility] [address] [facility] [place] [id number] [place] [address]- 6498 Nov, [facility] [address] [place] [address]- 7493 Nov, Abnormal mammogram 793.80 [facility] [address] [facility] [place] [id number] [place] [address]- 7420 October, Diabetes 250.00 and Colon polyp 211.3 [facility] [address] [id number] [place] [address]- 3272 Sep, [facility] [address] [place] [address]- 0764 Sep, [facility] [address] [facility] [place] [id number] [place] [address]- 4852 Sep, [facility] [address] [place] [address]- 4153 Aug, [facility] [address] [facility] [place] [id number] [place] [address]- 0885 Aug, [facility] [address] [place] [address]- 2616 Jul, [facility] [id number] [place] [address]- 2982 Jul, [facility] [id number] [place] [address]- 9805 Jun, [facility] [address] [facility] [place] [id number] [address]- 8008 Jun, [facility] [id number] [place] [address]- 0747 Jun, [facility] [address] [facility] [place] [id number] [place] 3146 Jun, [facility] [id number] [address]- 3496 Jun, [facility] [place] [facility] [address] [id number] [place] [address]- 8523 Jun, [facility] [place] [facility] [address] [id number] [place] [address]- 1138 May, [facility] [place] [facility] [address] [id number] [place] [address]- 9334 May, [facility] [place] [facility] [address] [id number] [place] [address]- 1636 Apr, [facility] [place] [facility] [address] [id number] [place] [address]- 1499 Apr, [facility] [place] [facility] [address] [id number] [place] [address]- 3568 Apr, [facility] [place] [facility] [address] [id number] [place] [address]- 4080 Apr, [facility] [place] [facility] [address] [id number] [place] [address]- 8978 Apr, [facility] [place] [facility] [address] [id number] [place] [address]- 6158 Apr, [facility] [place] [facility] [address] [id number] [place] [address]- 1649 Apr, [facility] [place] [facility] [address] [id number] [place] [address]- 9876 Apr, [facility] [place] [facility] [address] [id number] [place] [address]- 0215 Apr, [facility] [place] [facility] [address] [id number] [place] [address]- 5138 Apr, [facility] [place] [facility] [address] [id number] [place] [address]- 7990 Mar, [facility] [place] [facility] [address] [id number] [place] [address]- 8135 Mar, [facility] [place] [facility] [address] [id number] [place] [address]- 7183 Mar, [facility] [place] [facility] [address] [id number] [place] [address]- 5639 Mar, [facility] [place] [facility] [address] [id number] [place] [address]- 7007 Mar, [facility] [place] [facility] [address] [id number] [place] [address]- 3830 Mar, [facility] [place] [facility] [address] [id number] [place] [address]- 0280 Mar, [facility] [place] [facility] [address] [id number] [place] [address]- 4660 Mar, [facility] [place] [facility] [address] [id number] [place] [address]- 2910 Feb, [facility] [place] [facility] [address] [id number] [place] [address]- 5047 Feb, [facility] [place] [facility] [address] [id number] [place] [address]- 8676 Feb, [facility] [place] [facility] [address] [id number] [place] [address]- 8777 Feb, [facility] [place] [facility] [address] [id number] [place] [address]- 6811 Jan, [facility] [place] [facility] [address] [id number] [place] [address]- 4194 Jan, [facility] [place] [facility] [address] [id number], [place] [address]- 8776 Dec, [facility] [place] [facility] [address] [id number] [place] [address]- 1150 Dec, [facility] [place] [facility] [address] [id number] [place] [address]- 8394 Nov, [facility] [place] [facility] [address] [id number] [place] 6330 Nov, [facility] [place] [facility] [address] [id number] [place] [address]- 4622 Nov, [facility] [address] [id number] [place] [address]- 9719 Nov, [facility] [place] [facility] [address] [id number] [place] [address]- 9762 October, [facility] [address] [id number] [place] [address]- 1492 October, [facility] [place] [facility] [address] [id number] [place] [address] [address] October, [facility] [address] [id number] [place] [address] October, [facility] [place] [facility] [address] [id number] [place] [address] [address] October, [facility] [address] [id number] [place] [address] [address] October, [facility] [address] [id number] [place] [address] October, [facility] [place] [facility] [address] [id number] [place] [address] [address] October, [facility] [address] [id number] [place] [address] Aug, [facility] [place] [facility] [address] [id number] [place] [address] Aug, [facility] [place] [facility] [address] [id number] [place] [address] Jul, [facility] [place] [facility] [address] [id number] [place] [address] Jul, [facility] [place] [facility] [address] [id number] [place] [address] Jul, [facility] [place] [facility] [address] [id number] [place] [address] Jul, [facility] [place] [facility] [address] [id number] [place] [address] Jul, [facility] [place] [facility] [address] [id number] [place] [address] Jun, [facility] [place] [facility] [address] [id number] [place] [address] Jun, [facility] [place] [facility] [address] [id number] [place] [address] May, [facility] [place] [facility] [address] [id number] [place] [address] May, [facility] [place] [facility] [address] [id number] [place] [address] Apr, [facility] [place] [facility] [address] [id number] [place] [address] Apr, [facility] [place] [facility] [address] [id number] [address] Mar, [facility] [place] [facility] [address] [id number] [place] [address] Mar, [facility] [place] [facility] [address] [facility] [place] [facility] [id number], [place] [address] Mar, [facility] [place] [facility] [address] [id number], [place] [address] Feb, [facility] [place] [facility] [address] [id number], [place] [address] 20 Feb, 2013 [facility] [place] [facility] [address] [id number] [place] [address] 17 Feb, 2013 [facility] [place] [facility] [address] [id number], [place] [address] 04 Feb, 2013 [facility] [place] [facility] [address] [id number], [place] [address] Feb, [facility] [place] [facility] [address] [id number] [place] [address] Jan, [facility] [address] [id number] [place] [address] Dec, [facility] [place] [facility] [address] [id number] [place] [address] Nov, [facility] [address] [id number] [place] [address] October, [facility] [place] [facility] [address] [id number] [place] [address] Sep, [facility] [address] [id number] [place] [address] Aug, [facility] [place] [facility] [address] [id number] [place] [address] Aug, [facility] [address] [id number] [place] [address] Aug, [facility] [place] [facility] [address] [id number] [place] [address] May, [facility] [place] [facility] [address] [id number] [place] [address] 12 May, 2012 [facility] [place] [facility] [address] [id number] [place] [address] 12 May, 2012 [facility] [place] [facility] [address] [id number] [place] [address] May, [facility] [place] [facility] [address] [id number] [place] [address] 11 May, 2012 [facility] [place] [facility] [address] [id number] [place] [address] 16 Apr, 2012 [facility] [place] [facility] [address] [id number] [place] [address] 1666 16 Apr, 2012 [facility] [place] [facility] [address] [id number] [place] [address] 14 Apr, 2012 [facility] [place] [facility] [address] [id number] [place] [address] 14 Apr, 2012 [facility] [place] [facility] [address] [id number] [place] [address] Apr, [facility] [place] [facility] [address] [id number] [place] [address] Apr, [facility] [place] [facility] [address] [id number] [place] [address] Apr, [facility] [place] [facility] [address] [id number] [place] [address] Apr, [facility] [place] [facility] [address] [id number] [place] [address] Mar, [facility] [place] [facility] [address] [id number] [place] [address] Mar, [facility] [place] [facility] [address] [id number] [place] [address] Mar, [facility] [place] [facility] [address] [id number] [place] [address] Mar, [facility] [place] [facility] [address] [id number] [place] [address] Mar, [facility] [place] [facility] [address] [id number] [place] [address] Mar, [facility] [place] [facility] [address] [id number] [place] [address] Mar, [facility] [place] [facility] [address] [id number] [place] [address] 28 Feb, 2012 [facility] [place] [facility] [address] [id number] [place] [address] 24 Feb, 2012 [facility] [place] [facility] [address] [id number] [place] [address] 20 Feb, 2012 [facility] [place] [facility] [address] [id number] [place] [address] Feb, [facility] [place] [facility] [address] [id number] [place] [address] Jan, [facility] [place] [facility] [address] [id number] [place] [address] Jan, [facility] [place] [facility] [address] [id number] [place] [address]76 Jan, [facility] [place] [facility] [address] [id number] [place] [address] Jan, [facility] [place] [facility] [address] [id number] [place] [address] Jan, [facility] [place] [facility] [address] [id number] [place] [address] Jan, [facility] [place] [facility] [address] [id number] [place] [address] Dec, [facility] [place] [facility] [address] [id number] [place] [address] Dec, [facility] [place] [facility] [address] [id number] [place] [address] Dec, [facility] [place] [facility] [address] [id number] [place] [address] Dec, [facility] [place] [facility] [address] [id number] [place] [address] 9488 Dec, [facility] [place] [facility] [address] [id number] [place] [address] 42[address] Dec, [facility] [place] [facility] [address] [id number] [place] [address] Dec, [facility] [place] [facility] [address] [id number] [place] [address] Dec, [facility] [place] [facility] [address] [id number] [place] [address] 97[address] Nov, [facility] [place] [facility] [address] [id number] [place] [address] 11 Nov, 2011 [facility] [address] [id number] [place] [address] Nov, [facility] [address] [id number] [place] [address] 2856 07 Nov, 2011 [facility] [address] [id number] [place] [address] October, [facility] [address] [id number] [place] [address] October, [facility] [address] [id number] [place] [address] Sep, [facility] [address] [id number] [place] [address]96 Sep, [facility] [address] [id number] [place] [address] Aug, [facility] [address] [id number] [place] [address]- [address] 16 Aug, 2011 [facility] [address] [id number] [place] [address]65 Aug, [facility] [address] [id number] [place] [address] Aug, [facility] [place] [facility] [address] [id number] [place] [address] 05 Aug, [address] [facility] [address] [id number] [place] [address] 9166 08 Jul, 2011 [facility] [place] [facility] [address] [id number] [place] [address]- 1616 06 Jul, 2011 [facility] [place] [facility] [address] [id number] [place] [address]- [address]46 03 Jul, 2011 [facility] [place] [facility] [address] [id number] [place] [address]- 9651 Jul, [facility] [place] [facility] [address] [id number] [place] [address] 1653 Jun, [facility] [place] [facility] [address] [id number] [place] [address]- 1249 Jun, [facility] [place] [facility] [address] [id number] [place] [address] 1332 Jun, [facility] [place] [facility] [address] [id number] [place] [address] 8037 Jun, [facility] [place] [facility] [address] [id number] [place] [address]- [address]455 Jun, [facility] [place] [facility] [address] [id number] [place] [address] May, [facility] [place] [facility] [address] [facility] [place] [id number] [place] [address] 75[address] May, [facility] [place] [facility] [address] [id number] [address] May, [facility] [place] [facility] [address] [id number] [place] [address]- 0785 May, [facility] [place] [facility] [address] [facility] [place] 2[facility] [id number] [address] May, [facility] [place] [facility] [address] [id number], [place] [address] May, [facility] [place] [facility] [address] [id number], [place] [address]12 Apr, [facility] [place] [facility] [address] [id number] [place] [address]- 3042 Apr, [facility] [place] [facility] [address] [id number], [place] [address] 14 Mar, 2011 [facility] [place] [facility] [address] [id number], [place] [address] Mar, [facility] [place] [facility] [address] [id number], [place] [address] October, [facility] [id number], [place] [address] May, [facility] [id number], [place] [address] Apr, [facility] [id number], [place] [address] Jul, [facility] [id number], [place] [address]28 May, [facility] [id number] [place] [address] May, [facility] [id number], [place] [address] 8746 May, [facility] [id number], [place] [address]- [address] Apr, [facility] [id number], [place] [address]- [address]12 Apr, [facility] [id number], [place] [address]- [address] Mar, [facility] [id number], [place] [address] Jan, [facility] [address] [id number], [place] [address]60 Nov, IMMUNIZATIONS No Known Immunizations SOCIAL HISTORY Never Assessed REASON FOR VISIT Controlled Med Refill PLAN OF CARE VITAL SIGNS MEDICATIONS Medication Instructions Dosage Frequency Start Date End Date Duration Status [place] 7.5-325 MG Orally 3 times a day [...]
--- OUTSIDE RECORDS SUMMARY | 2018-02-19 21:33 | XMS REPORT ---
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 Name Role Phone BOOGIE ARAUJO Unavailable PROBLEMS Type Condition ICD9-CM Code [id number] Code Onset Dates Condition Status SNOMED Code Problem History of abnormal cervical Pap smear Z87.898 Active 607238280 Problem Thoracogenic scoliosis of thoracolumbar region M41.35 Active 48001888 Problem Uncontrolled type 2 diabetes mellitus without complication, without long-term current use of insulin E11.65 Active 733540986 Problem Diabetes type 2, controlled E11.9 Active 42660679 Problem Thyroid nodule E04.1 Active 174429268 Problem History of colon polyps Z86.010 Active 015013780 Problem Other iron deficiency anemia D50.8 Active 55795271 Problem Iron deficiency anemia due to chronic blood loss D50.0 Active 856855550 Problem Screening breast examination Z12.39 Active 457309575 Problem Allergic rhinitis, unspecified allergic rhinitis trigger, unspecified rhinitis seasonality J30.9 Active 26414112 Problem Controlled type 2 diabetes mellitus without complication, without long -term current use of insulin E11.9 Active 556805456 Problem Other chronic pain G89.29 Active 24888417 ALLERGIES No Information ENCOUNTERS Encounter Location Date Diagnosis [facility] [id number] [address] Dec, [facility] [id number] [address] Nov, Other chronic pain G89.29 [facility] [address], [place] [address] Nov, [facility] [id number], [place] [address] Nov, [facility] [id number], [place] [address] 94[address] October, Diabetes type 2, controlled E11.9 and Acute cystitis without hematuria N30.00 [facility] [id number], [place] [address] 89[address] October, [facility] [address], [place] [address] October, [facility] [id number] [place] [address] 06953- 5329 October, [facility] [id number] [place] [address] 76740- 1200 October, Other chronic pain G89.29 [facility] [id number] [place] [address] 46863- 6462 Sep, Diabetes type 2, controlled E11.9 [facility] [id number] [place] [address] 90397- 7720 Sep, [facility] [id number] [place] [address] 81713- 3992 Sep, Diabetes type 2, controlled E11.9 [facility] [id number] [place] [address] 69490- 7393 Sep, Other chronic pain G89.29 [facility] [address], [place] [address] 72[address] Sep, Other iron deficiency anemia D50.8 [facility] [address], [place] [address]- 6287 Sep, Other iron deficiency anemia D50.8 [facility] [id number] [place] [address] 31179- 7594 Sep, Iron deficiency anemia due to chronic blood loss D50.0 and Dysuria R30.0 [facility] [address], [place] [address]- 8[address] Sep, Dysuria R30.0 [facility] [address], [place] [address]- 0264 Sep, Iron deficiency anemia due to chronic blood loss D50.0 [facility] [id number] [place] [address] 64541- 4824 Sep, [facility] [id number] [place] [address] 13464- 1557 Sep, Controlled type 2 diabetes mellitus without complication, without long-term current use of insulin E11.9 ; Leg cramps R25.2 ; Low back pain M54.5 and Other chronic pain G89.29 [facility] [id number] [place] [address] 18079- 5079 Sep, Controlled type 2 diabetes mellitus without complication, without long-term current use of insulin E11.9 ; Low back pain M54.5 ; Other chronic pain G89.29 and Leg cramps R25.2 [facility] [id number] [place] [address] 88803- 0597 Aug, Other chronic pain G89.29 [facility] [id number] [place] [address] 14495- 1234 Jul, Other chronic pain G89.29 [facility] [id number] [place] [address] 93167- 8071 16 Jul, 2017 Pneumonia of left lower lobe due to infectious organism J18.1 [facility] [address], [place] [address] 12 Jul, 2017 Dysuria R30.0 ; Cough in adult patient R05 and Pneumonia of left lower lobe due to infectious organism J18.1 [facility] [id number] [place] [address] 38373- 6413 08 Jul, 2017 [facility] [id number] [place] [address] 03669- 5644 Jun, Other chronic pain G89.29 [facility] [id number] [place] [address] 27171- 4966 Jun, [facility] [address], [place] [address]- 8251 Jun, Diabetes type 2, controlled E11.9 ; Back muscle spasm M62.830 and Other chronic pain G89.29 [facility] [address], [place] [address]- 6101 Jun, Screening breast examination Z12.31 [facility] [id number] [place] [address] 17811- 6042 May, Other chronic pain G89.29 [facility] [id number] [place] [address] 92873- 3922 May, [facility] [id number] [place] [address] 85230- 4047 May, UTI (urinary tract infection) N39.0 [facility] [id number] [place] [address] 61467- 7004 May, Dysuria R30.0 [facility] [id number] [place] [address] 48536- 9396 May, Dysuria R30.0 [facility] [id number] [place] [address] 58050- 3804 04 May, 2017 Diabetes type 2, controlled E11.9 ; 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 and Other chronic pain G89.29 [facility] [id number] [place] [address] 38779- 4343 Apr, Diabetes type 2, controlled E11.9 [facility] [id number] [place] [address] 91221 -3518 Mar, Paronychia of great toe, right L03.031 and Dysuria R30.0 [facility] [address], [place] [address] 1981 Mar, Diabetes type 2, controlled E11.9 [facility] [id number], [place] [address]- 1648 28 Feb, 2017 Diabetes type 2, controlled E11.9 [facility] [address] [id number] [address] 13 Feb, 2017 Dental examination Z01.20 [facility] [address], [place] [address]- 2532 11 Feb, 2017 Diabetes type 2, controlled E11.9 [facility] [address], [place] [address]- 3119 07 Feb, 2017 Diabetes type 2, controlled E11.9 [facility] [address], [place] [address]- 9454 14 Jan, 2017 Diabetes type 2, controlled E11.9 [facility] [address], [place] [address]- 3909 24 Dec, 2016 Diabetes type 2, controlled E11.9 [facility] [address], [place] [address]- 6051 Dec, Diabetes type 2, controlled E11.9 [facility] [address], [place] [address]- 9442 30 Nov, 2016 Diabetes type 2, controlled E11.9 [facility] [address], [place] [address]- 2149 Nov, Diabetes type 2, controlled E11.9 [facility] [address], [place] [address]- 9725 27 Nov, 2016 Diabetes type 2, controlled E11.9 [facility] [address], [place] [address]- 4613 19 Nov, 2016 Diabetes type 2, controlled E11.9 [facility] [address], [place] [address]- 7987 14 Nov, 2016 Diabetes type 2, controlled E11.9 [facility] [address], [place] [address]- 7335 Nov, Diabetes type 2, controlled E11.9 [facility] [address], [place] [address]- 1851 October, Pain in unspecified shoulder M25.519 [facility] [id number] [place] [address] 43453- 4366 October, Diabetes type 2, controlled E11.9 and Cellulitis of right lower extremity L03.115 [facility] [id number] [place] [address] 52512- 6590 October, Pain in unspecified shoulder M25.519 [facility] [id number] [place] [address] 99149- 7480 Sep, Diabetes type 2, controlled E11.9 [facility] [id number] [place] [address] 84067- 2036 Aug, Pain in unspecified shoulder M25.519 [facility] [id number] [place] [address] 48952- 2965 Aug, Diabetes type 2, controlled E11.9 [facility] [id number] [place] [address] 34492- 7836 Aug, Diabetes type 2, controlled E11.9 ; Dark urine R82.99 and Localized edema R60.0 [facility] [id number] [place] [address] 00261- 3999 Aug, Pain in unspecified shoulder M25.519 [facility] [id number] [place] [address] 98193- 1533 Jul, Pain in unspecified shoulder M25.519 [facility] [id number] [place] [address] 74807- 9615 Jul, [facility] [id number] [place] [address] 81436- 6138 Jul, Diabetes type 2, controlled E11.9 and 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 [facility] [id number] [place] [address] 12285- 3599 Jun, Diabetes type 2, controlled E11.9 [facility] [id number] [place] [address] 56276- 4337 Jun, Screening breast examination Z12.39 and Allergic rhinitis, unspecified allergic rhinitis trigger, unspecified rhinitis seasonality J30.9 [facility] [id number] [place] [address] 71503- 4550 Jun, Pain in unspecified shoulder M25.519 [facility] [address] 24502- 0136 May, [facility] [address] 52832- 9708 May, Pain in unspecified shoulder M25.519 [facility] [address] 33970- 1280 05 May, 2016 Thoracogenic scoliosis of thoracolumbar region M41.35 ; Low back pain M54.5 ; Other chronic pain G89.29 and Uncontrolled type 2 diabetes mellitus without complication, without long-term current use of insulin E11.65 [facility] [id number] [place] [address] 09851- 3179 Apr, [facility] [id number] [place] [address] 49921- 5355 Apr, [facility] [id number] [place] [address] 27365- 7254 04 Apr, 2016 History of type 2 diabetes mellitus Z86.39 and Encounter for immunization Z23 [facility] [id number] [place] [address] 32109- 3498 Mar, [facility] [id number] [place] [address] 98138- 8243 Mar, [facility] [id number] [place] [address] 55286- 6163 Feb, [facility] [id number] [place] [address] 12886- 4731 Jan, [facility] [address] [facility] [id number] [address]- 3167 Jan, [facility] [id number], [place] [address]- 3191 Dec, [facility] [id number], [place] [address] -[address] Dec, Sore throat J02.9 and Allergic rhinitis, unspecified allergic rhinitis type J30.9 [facility] [address] [facility] [id number] [address]- 3792 Dec, Diabetes type 2, controlled E11.9 [facility] [address] [facility] [id number], [place] [address]- 8194 Nov, [facility] [address], [place] [address]- 6255 Nov, [facility] [address], [place] [address]- 2492 October, [facility] [address], [place] [address]- 7708 October, [facility] [id number], [place] [address]- 3663 Sep, [facility] [id number] [address]- 6947 Aug, [facility] [id number], [place] [address]- 5840 Aug, Diabetes type 2, controlled E11.9 ; UTI (urinary tract infection) N39.0 and Bacterial infection A49.9 [facility] [id number] [address]- 2579 Jul, [facility] [id number], [place] [address]- 9994 Jul, [facility] [id number] [place] [address] 61278- 1701 Jul, Pharyngitis J02.9 and Seborrheic keratoses L82.1 [facility] [id number] [place] [address] 21610- 3124 Jun, [facility] [id number] [place] [address] 63245- 9127 May, [facility] [address] 04970- 7232 May, Skin tags, multiple acquired L91.8 ; Seborrheic keratoses L82.1 and Diabetes type 2, controlled E11.9 [facility] [address] 35697- 4863 May, Well woman exam Z01.419 ; Papanicolaou [...] Other fatigue R53.83 and Other hemorrhoids K64.8 [facility] [id number] [place] [address] 30372- 1664 15 May, 2015 [facility] [id number] [place] [address] 10708- 3899 May, [facility] [id number] [place] [address] 57917- 2109 Apr, Seborrheic keratosis L82.1 and Diabetes type 2, controlled E11.9 [facility] [id number] [place] [address] 19659- 4942 Apr, Seborrheic keratosis L82.1 and Diabetes type 2, controlled E11.9 [facility] [id number] [place] [address] 11542- 2861 Mar, [facility] [address] 05472- 4710 Mar, [facility] [address] 49655- 9867 Mar, Nevoid hyperpigmentation L81.9 ; Encounter for immunization Z23 ; Skin tags, multiple acquired L91.8 and Seborrheic keratoses L82.1 [facility] [address] 06675- 4620 Feb, [facility] [address] 12974- 6167 Feb, [facility] [address] 38542- 2231 Feb, [facility] [address] 07315- 5792 Feb, Diabetes 250.00 ; Tinea corporis 110.5 and Shoulder pain, left 719.41 [facility] [address] 30803- 2302 Jan, [facility] [id number] [place] [address] 89158- 9359 Dec, [facility] [id number] [place] [address] 51947- 8827 Dec, [facility] [address] 91871- 2321 Dec, Seborrheic keratoses 702.19 ; Diabetes 250.00 and Hypoglycemia 251.2 [facility] [address] 69224- 6657 Nov, [facility] [address] 91030- 7558 Nov, Abnormal mammogram 793.80 [facility] [address] [place] [address]- 1214 October, Diabetes 250.00 and Colon polyp 211.3 [facility] [address] [id number] [place] [address]- 9603 Sep, [facility] [address] [id number] [place] [address]- 6567 Sep, [facility] [id number] [place] [address], [place] [address]- 4034 Sep, [facility] [address] [id number] [place] [address]- 9342 Aug, [facility] [address] [id number] [place] [address], [place] [address]- 2420 Aug, [facility] [address] [address]- 1678 Jul, [facility] [address] [address]- 7252 Jul, [facility] [id number] [address]- 3085 Jun, [facility] [address] [address]- 6713 Jun, [facility] [address] [address]- 4018 Jun, [facility] [id number], [place] [address]- 1023 Jun, [facility] [id number] [address]- 7865 Jun, [facility] [address] [address]- 1413 Jun, [facility] [address] [facility] [id number] [place] [address]- 2906 May, [facility] [address], [place] [address]- 6610 May, [facility] [place] [facility] [address] [id number] [place] [address]- 7942 Apr, [facility] [place] [facility] [address] [id number] [place] [address]- 8228 Apr, [facility] [place] [facility] [address] [id number] [place] [address]- 5549 Apr, [facility] [place] [facility] [address] [id number] [place] [address]- 2486 Apr, [facility] [place] [facility] [address] [id number] [place] [address]- 7124 Apr, [facility] [place] [facility] [address] [id number] [place] [address]- 9421 Apr, [facility] [place] [facility] [address] [id number] [place] [address]- 5345 Apr, [facility] [place] [facility] [address] [id number], [place] [address]- 4197 Apr, [facility] [place] [facility] [address] [id number] [address]- 0962 Apr, [facility] [place] [facility] [address] [id number], [place] [address]- 0304 Apr, [facility] [place] [facility] [address] [id number], [place] [address]- 3165 Mar, [facility] [place] [facility] [address] [id number], [place] [address]- 7796 Mar, [facility] [place] [facility] [address] [id number], [place] [address]- 0805 Mar, [facility] [place] [facility] [address] [id number], [place] [address]- 1081 Mar, [facility] [place] [facility] [address] [id number], [place] [address]- 6297 Mar, [facility] [place] [facility] [address] [id number] [place] [address]- 3346 Mar, [facility] [place] [facility] [address] [id number] [place] [address]- 4901 Mar, [facility] [place] [facility] [address] [id number] [place] [address]- 1162 Mar, [facility] [place] [facility] [address] [id number] [place] [address]- 1529 Feb, [facility] [place] [facility] [address] [id number] [place] [address]- 5549 Feb, [facility] [place] [facility] [address] [id number] [place] [address]- 2466 Feb, [facility] [place] [facility] [address] [id number] [place] [address]- 0921 Feb, [facility] [place] [facility] [address] [id number] [place] [address]- 1539 Jan, [facility] [place] [facility] [address] [id number] [place] [address]- 8088 Jan, [facility] [place] [facility] [address] [id number] [place] [address]- 0663 Dec, [facility] [place] [facility] [address] [id number] [place] [address]- 1354 Dec, [facility] [place] [facility] [address] [id number] [place] [address]- 8687 Nov, [facility] [place] [facility] [address] [id number] [place] [address]- 2084 Nov, [facility] [place] [facility] [address] [id number] [place] [address]- 2755 Nov, [facility] [place] [facility] [address] [id number] [place] [address]- 3685 Nov, [facility] [place] [facility] [address] [id number] [place] [address]- 6848 October, [facility] [address] [id number] [place] [address]- 7764 October, [facility] [place] [facility] [address] [id number] [place] [address]- 5737 October, [facility] [place] [facility] [address] [id number] [place] [address]- 9745 October, [facility] [place] [facility] [address] [id number] [place] [address] October, [facility] [place] [facility] [address] [id number] [place] [address] October, [facility] [place] [facility] [address] [id number] [place] [address] October, [facility] [place] [facility] [address] [id number] [place] [address] October, [facility] [place] [facility] [address] [id number] [place] [address] Aug, [facility] [place] [facility] [address] [id number] [place] [address] Aug, [facility] [place] [facility] [address] [id number] [place] [address] Jul, [facility] [place] [facility] [address] [id number] [place] [address] Jul, [facility] [place] [facility] [address] [id number] [place] [address] Jul, [facility] [place] [facility] [address] [id number] [place] [address] Jul, [facility] [place] [facility] [address] [id number] [place] [address] Jul, [facility] [place] [facility] [address] [id number] [place] [address] Jun, [facility] [place] [facility] [address] [id number] [place] [address] Jun, [facility] [address] [id number] [place] [address] May, [facility] [place] [facility] [address] [id number] [place] [address] May, [facility] [place] [facility] [address] [id number] [place] [address] Apr, [facility] [place] [facility] [address] [id number] [place] [address] Apr, [facility] [place] [facility] [address] [id number] [place] [address] Mar, [facility] [place] [facility] [address] [id number] [place] [address] Mar, [facility] [place] [facility] [address] [id number] [place] [address] Mar, [facility] [place] [facility] [address] [id number] [place] [address] Feb, [facility] [place] [facility] [address] [id number] [place] [address] Feb, [facility] [place] [facility] [address] [facility] [id number] [place] [address] 17 Feb, 2013 [facility] [place] [facility] [address] [id number] [place] [address] Feb, [facility] [place] [facility] [address] [id number] [place] [address] Feb, [facility] [place] [facility] [address] [id number] [place] [address] Jan, [facility] [place] [facility] [address] [id number] [place] [address] Dec, [facility] [place] [facility] [address] [id number] [place] [address] Nov, [facility] [place] [facility] [address] [id number] [place] [address] October, [facility] [address] [id number] [place] [address] Sep, [facility] [place] [facility] [address] [id number] [place] [address] Aug, [facility] [address] [id number] [place] [address] Aug, [facility] [address] [id number] [place] [address] 18 Aug, 2012 [facility] [address] [id number] [place] [address] May, [facility] [address] [id number] [place] [address] 12 May, 2012 [facility] [address] [id number] [place] [address] 12 May, 2012 [facility] [address] [id number] [place] [address] May, [facility] [address] [id number] [place] [address] May, [facility] [address] [id number] [place] [address] 16 Apr, 2012 [facility] [place] [facility] [address] [id number] [place] [address]369 16 Apr, 2012 [facility] [place] [facility] [address] [id number] [place] [address] 14 Apr, 2012 [facility] [place] [facility] [address] [id number] [place] [address] 14 Apr, 2012 [facility] [place] [facility] [address] [id number] [place] [address] 07 Apr, 2012 [facility] [place] [facility] [address] [id number] [place] [address] Apr, [facility] [place] [facility] [address] [id number] [place] [address] Apr, [facility] [place] [facility] [address] [id number] [place] [address] Apr, [facility] [place] [facility] [address] [id number] [place] [address] Mar, [facility] [place] [facility] [address] [id number] [place] [address] Mar, [facility] [place] [facility] [address] [id number] [place] [address] Mar, [facility] [place] [facility] [address] [id number] [place] [address] Mar, [facility] [place] [facility] [address] [id number] [place] [address] Mar, [facility] [place] [facility] [address] [id number] [place] [address] Mar, [facility] [place] [facility] [address] [id number] [place] [address] Mar, [facility] [place] [facility] [address] [id number] [place] [address] Feb, [facility] [place] [facility] [address] [id number] [place] [address] 24 Feb, 2012 [facility] [place] [facility] [address] [id number] [place] [address] 45[address] 20 Feb, 2012 [facility] [place] [facility] [address] [id number] [place] [address] Feb, [facility] [place] [facility] [address] [id number] [place] [address] Jan, [facility] [place] [facility] [address] [id number] [place] [address] Jan, [facility] [place] [facility] [address] [id number] [place] [address] 17 Jan, 2012 [facility] [place] [facility] [address] [id number] [place] [address] 15 Jan, 2012 [facility] [place] [facility] [address] [id number] [place] [address] Jan, [facility] [address] [id number] [place] [address] Jan, [facility] [place] [facility] [address] [id number] [place] [address] Dec, [facility] [place] [facility] [address] [id number] [place] [address] Dec, [facility] [place] [facility] [address] [id number] [place] [address] 47[address] Dec, [facility] [place] [facility] [address] [id number] [place] [address]60 Dec, [facility] [address] [id number] [place] [address] Dec, [facility] [place] [facility] [address] [id number] [place] [address] Dec, [facility] [address] [id number] [place] [address] Dec, [facility] [place] [facility] [address] [id number] [place] [address]46 Dec, [facility] [place] [facility] [address] [id number] [place] [address] Nov, [facility] [place] [facility] [address] [id number] [place] [address] 12[address] Nov, [facility] [place] [facility] [address] [id number] [place] [address] Nov, [facility] [place] [facility] [address] [id number] [place] [address] 7499 Nov, [facility] [address] [id number] [place] [address] October, [facility] [place] [facility] [address] [id number] [place] [address] 60[address] October, [facility] [place] [facility] [address] [id number] [place] [address] Sep, [facility] [place] [facility] [address] [id number] [place] [address] 9008 Sep, [facility] [place] [facility] [address] [id number] [place] [address]048 Aug, [facility] [place] [facility] [address] [id number] [id number] [address] 16 Aug, 2011 [facility] [place] [facility] [address] [id number] [place] [address] 8717 Aug, [facility] [place] [facility] [address] [id number] [place] [address] 57[address] Aug, [facility] [place] [facility] [address] [id number] [place] [address]- 8669 Aug, [facility] [place] [facility] [address] [id number] [place] [address] 1680 Jul, [facility] [place] [facility] [address] [id number] [place] [address] 1112 Jul, [facility] [place] [facility] [address] [id number] [place] [address] 1654 Jul, [facility] [place] [facility] [address] [id number] [place] [address] 4090 Jul, [facility] [place] [facility] [address] [id number] [place] [address] 1816 Jun, [facility] [place] [facility] [address] [id number] [place] [address]- 7290 Jun, [facility] [place] [facility] [address] [id number] [place] [address]- [address] 05 Jun, 2011 [facility] [address] [id number] [place] [address]- 9218 Jun, [facility] [place] [facility] [address] [id number] [place] [address]- 3610 Jun, [facility] [address] [id number] [place] [address]- 4666 May, [facility] [place] [facility] [address] [id number] [place] [address]- 4460 May, [facility] [address] [id number] [place] [address]- 7352 May, [facility] [place] [facility] [address] [id number] [place] [address]- 0204 May, [facility] [address] [id number] [place] [address]- 5729 May, [facility] [place] [facility] [address] [id number] [place] [address]- 7917 May, [facility] [place] [facility] [address] [id number] [place] [address]- 5200 Apr, [facility] [address] [facility] [id number] [place] [address]- 0314 Apr, [facility] [place] [facility] [address] [id number] [place] [address]- 3176 Mar, [facility] [place] [facility] [address] [id number] [place] [address]- 3735 Mar, [facility] [place] [facility] [address] [id number] [place] [address]- 9670 October, [facility] [place] [facility] [address] [id number] [place] [address]- 3756 May, [facility] [place] [facility] [address] [id number] [address] Apr, [facility] [address] [id number] [address] Jul, [facility] [address] [id number] [address]35 May, [facility] [address] [id number] [address] May, [facility] [id number] [address] [address] May, [facility] [address] [id number] [address] Apr, [facility] [id number] [address] Apr, [facility] [id number] [address] Mar, [facility] [id number], [place] [address] Jan, [facility] [address] [id number] [address] Nov, IMMUNIZATIONS No Known Immunizations SOCIAL HISTORY Never Assessed REASON FOR VISIT Requests return call PLAN OF CARE VITAL SIGNS MEDICATIONS Unknown [...]
--- OUTSIDE RECORDS SUMMARY | 2018-02-19 21:34 | XMS REPORT ---
Author Author ANGEL RIDLEY [facility] Address [address] [place] [address] Care Team Providers Care Pantographer Name Role Phone ANGEL RIDLEY Unavailable PROBLEMS Type Condition ICD9-CM Code CTQ53-OS Code Onset Dates Condition Status SNOMED Code Problem History of abnormal cervical Pap smear Z87.898 Active 978059183 Problem Thoracogenic scoliosis of thoracolumbar region M41.35 Active 27424933 Problem Uncontrolled type 2 diabetes mellitus without complication, without long-term current use of insulin E11.65 Active 706404928 Problem Diabetes type 2, controlled E11.9 Active 22419870 Problem Thyroid nodule E04.1 Active 467683363 Problem History of colon polyps Z86.010 Active 367794618 Problem Other iron deficiency anemia D50.8 Active 66170662 Problem Iron deficiency anemia due to chronic blood loss D50.0 Active 595713355 Problem Screening breast examination Z12.39 Active 274647518 Problem Allergic rhinitis, unspecified allergic rhinitis trigger, unspecified rhinitis seasonality J30.9 Active 22748993 Problem Controlled type 2 diabetes mellitus without complication, without long -term current use of insulin E11.9 Active 994596973 Problem Other chronic pain G89.29 Active 37940588 ALLERGIES Substance Reaction Event Type Date Status Diclofenac rash Drug Allergy Jun, Active Invokana swelling Drug Allergy Jun, Active Trilipix Unknown Drug Allergy Jun, Active Simcor chest pain, due to high doses of niacin in the simcor Drug Allergy Jun, Active Meloxicam elevated BG, fluid retention Drug Allergy Jun, Active Hydrochlorothiazide Unknown Drug Allergy Jun, Active Dimetapp Maximum Strength Unknown Drug Allergy Jun, Active BusPIRone HCl dizziness Drug Allergy Jun, Active Augmentin Unknown Drug Allergy Jun, Active ENCOUNTERS Encounter Location Date Diagnosis [facility] [address] [facility] [id number] [address] Dec, [facility] [address] [id number] [address] 14 Nov, 2017 Other chronic pain G89.29 [facility] [id number], [place] [address] 9832 Nov, [facility] [address], [place] [address] Nov, [facility] [address], [place] [address] 0414 October, Diabetes type 2, controlled E11.9 and Acute cystitis without hematuria N30.00 [facility] [address], [place] [address] 8657 October, [facility] [address], [place] [address] 3121 October, [facility] [address], [place] [address] 0676 October, [facility] [address], [place] [address] 0730 October, Other chronic pain G89.29 [facility] [address], [place] [address] 7787 19 Sep, 2017 Diabetes type 2, controlled E11.9 [facility] [address], [place] [address] 17[address] 16 Sep, 2017 [facility] [id number], [place] [address] 9698 Sep, Diabetes type 2, controlled E11.9 [facility] [address], [place] [address] 1136 16 Sep, 2017 Other chronic pain G89.29 [facility] [id number], [place] [address] 6932 13 Sep, 2017 Other iron deficiency anemia D50.8 [facility] [id number] [place] [address] 02857- 6473 Sep, Other iron deficiency anemia D50.8 [place] [id number] [place] [address] 26940- 2818 Sep, Iron deficiency anemia due to chronic blood loss D50.0 and Dysuria R30.0 [place] [id number] [place] [address] 32283- 6024 Sep, Dysuria R30.0 [place] [id number] [place] [address] 06282- 4753 Sep, Iron deficiency anemia due to chronic blood loss D50.0 [place] [id number] [place] [address] 30194- 9290 Sep, [place] [facility] [id number] [place] [address] 31437- 8609 Sep, Controlled type 2 diabetes mellitus without complication, without long-term current use of insulin E11.9 ; Leg cramps R25.2 ; Low back pain M54.5 and Other chronic pain G89.29 [facility] [id number] [place] [address] 79680- 6780 Sep, Controlled type 2 diabetes mellitus without complication, without long-term current use of insulin E11.9 ; Low back pain M54.5 ; Other chronic pain G89.29 and Leg cramps R25.2 [place] [id number] [place] [address] 31278- 8998 Aug, Other chronic pain G89.29 [place] [id number] [place] [address] 43032- 2036 Jul, Other chronic pain G89.29 [place] [id number] [place] [address] 77666- 2699 16 Jul, 2017 Pneumonia of left lower lobe due to infectious organism J18.1 [facility] [id number] [place] [address] 70025 -1726 Jul, Dysuria R30.0 ; Cough in adult patient R05 and Pneumonia of left lower lobe due to infectious organism J18.1 [facility] [address] [place] [address] 15353- 3599 08 Jul, 2017 [facility] [address] [place] [address] 09741- 0327 Jun, Other chronic pain G89.29 [facility] [id number] [place] [address] 85531- 9686 Jun, [facility] [id number] [place] [address] 88825- 8208 Jun, Diabetes type 2, controlled E11.9 ; Back muscle spasm M62.830 and Other chronic pain G89.29 [facility] [id number] [place] [address] 98808- 6524 Jun, Screening breast examination Z12.31 [facility] [id number] [place] [address] 58462- 0113 May, Other chronic pain G89.29 [facility] [id number] [place] [address] 35703- 1429 May, [facility] [id number] [place] [address] 22452- 8167 May, UTI (urinary tract infection) N39.0 [facility] [address] [place] [address] 28347- 5664 May, Dysuria R30.0 [place] [address] [place] [address] 99111- 1738 May, Dysuria R30.0 [facility] [place] [address] [place] [address] 39701- 8264 May, Diabetes type 2, controlled E11.9 ; M[facility] current use of 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 Z79.891 and Other chronic pain G89.29 [facility] [id number] [place] [address] 28186- 0385 Apr, Diabetes type 2, controlled E11.9 [facility] [id number] [place] [address] 00661 -0224 Mar, Paronychia of great toe, right L03.031 and Dysuria R30.0 [facility] [id number] [place] [address] 81875- 4511 Mar, Diabetes type 2, controlled E11.9 [facility] [id number] [place] [address] 54263- 0981 28 Feb, 2017 Diabetes type 2, controlled E11.9 [facility] [id number] [place] [address] [id number] 13 Feb, 2017 Dental examination Z01.20 [facility] [id number] [place] [address] 32796- 5115 11 Feb, 2017 Diabetes type 2, controlled E11.9 [facility] [id number] [place] [address] 89085- 8409 Feb, Diabetes type 2, controlled E11.9 [facility] [id number] [place] [address] 61002- 7769 Jan, Diabetes type 2, controlled E11.9 [facility] [id number] [place] [address] 14607- 8190 Dec, Diabetes type 2, controlled E11.9 [facility] [id number] [place] [address] 91599- 2290 Dec, Diabetes type 2, controlled E11.9 [facility] [id number] [place] [address] 90701- 5845 Nov, Diabetes type 2, controlled E11.9 [facility] [id number] [place] [address] 30051- 9923 Nov, Diabetes type 2, controlled E11.9 [facility] [id number] [place] [address] 80018- 2884 Nov, Diabetes type 2, controlled E11.9 [facility] [address] [id number], [place] [address]- 1360 Nov, Diabetes type 2, controlled E11.9 [facility] [id number] [place] [address] 39919- 0196 14 Nov, 2016 Diabetes type 2, controlled E11.9 [facility] [id number] [place] [address] 93492- 6120 Nov, Diabetes type 2, controlled E11.9 [facility] [id number] [place] [address] 69034- 0060 October, Pain in unspecified shoulder M25.519 [facility] [id number] [place] [address] 93724- 6275 October, Diabetes type 2, controlled E11.9 and Cellulitis of right lower extremity L03.115 [facility] [id number] [place] [address] 48415- 0704 October, Pain in unspecified shoulder M25.519 [facility] [id number] [place] [address] 35926- 5451 Sep, Diabetes type 2, controlled E11.9 [facility] [id number] [place] [address] 61724- 4343 Aug, Pain in unspecified shoulder M25.519 [facility] [id number] [place] [address] 96506- 5891 Aug, Diabetes type 2, controlled E11.9 [facility] [id number] [place] [address] 14341- 0221 Aug, Diabetes type 2, controlled E11.9 ; Dark urine R82.99 and Localized edema R60.0 [facility] [address] [place] [address] 06115- 3164 Aug, Pain in unspecified shoulder M25.519 [facility] [id number] [place] [address] 64027- 3030 07 Jul, 2016 Pain in unspecified shoulder M25.519 [place] [id number] [place] [address] 17330- 7567 06 Jul, 2016 [place] [id number] [place] [address] 05218- 3364 02 Jul, 2016 Diabetes type 2, controlled E11.9 and MCC current use of 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 Z79.891 [place] [address] 21153- 2965 Jun, Diabetes type 2, controlled E11.9 [place] [address] 98126- 3576 Jun, Screening breast examination Z12.39 and Allergic rhinitis, unspecified allergic rhinitis trigger, unspecified rhinitis seasonality J30.9 [place] [address] 27908- 5472 Jun, Pain in unspecified shoulder M25.519 [place] [address] 51974- 9291 May, [place] [address] 30619- 9154 May, Pain in unspecified shoulder M25.519 [facility] [facility] [id number] [place] [address] 43564- 6731 05 May, 2016 Thoracogenic scoliosis of thoracolumbar region M41.35 ; Low back pain M54.5 ; Other chronic pain G89.29 and Uncontrolled type 2 diabetes mellitus without complication, without long-term current use of insulin E11.65 [place] [id number] [place] [address] 35330- 8338 Apr, [place] [id number] [place] [address] 28573- 0327 Apr, [place] [address] 82502- 6497 Apr, History of type 2 diabetes mellitus Z86.39 and Encounter for immunization Z23 [facility] [address], [place] [address]- 7264 Mar, [facility] [id number] [place] [address] 48359- 2942 Mar, [facility] [id number] [place] [address] 75080- 9515 Feb, [facility] [id number] [place] [address] 39933- 7850 Jan, [facility] [id number] [place] [address] 77536- 6742 Jan, [facility] [id number] [place] [address] 10819- 7450 Dec, [facility] [id number] [place] [address] 55939 -6301 Dec, Sore throat J02.9 and Allergic rhinitis, unspecified allergic rhinitis type J30.9 [facility] [id number] [place] [address] 98786- 8753 Dec, Diabetes type 2, controlled E11.9 [facility] [id number] [place] [address] 47593- 5800 Nov, [facility] [address] [place] [address] 11854- 0911 Nov, [facility] [id number], [place] [address]- 5319 October, [facility] [id number] [place] [address] 47490- 2040 October, [facility] [id number] [place] [address] 99048- 7860 Sep, [facility] [address] [place] [address] 55736- 8923 Aug, [place] [address] [place] [address] 51986- 1547 Aug, Diabetes type 2, controlled E11.9 ; UTI (urinary tract infection) N39.0 and Bacterial infection A49.9 [facility] [id number] [place] [address] 73191- 3178 Jul, [place] [address] 38773- 2251 Jul, [place] [address] 03245- 0680 Jul, Pharyngitis J02.9 and Seborrheic keratoses L82.1 [id number] [place] [address] 88804- 4083 Jun, [address] 15652- 0187 May, [address] 93114- 6198 May, Skin tags, multiple acquired L91.8 ; Seborrheic keratoses L82.1 and Diabetes type 2, controlled E11.9 [place] [id number] [place] [address] 62683- 6630 May, Well woman exam Z01.419 ; Papanicolaou [...] Other fatigue R53.83 and Other hemorrhoids K64.8 [id number] [place] [address] 69478- 3711 May, [place] [id number] [place] [address] 77713- 9756 May, [facility] [id number] [place] [address] 30799- 8821 Apr, Seborrheic keratosis L82.1 and Diabetes type 2, controlled E11.9 [facility] [id number] [place] [address] 78599- 6479 Apr, Seborrheic keratosis L82.1 and Diabetes type 2, controlled E11.9 [facility] [id number] [place] [address] 46287- 1120 Mar, [facility] [id number] [place] [address] 43432- 2382 Mar, [facility] [id number] [place] [address] 85301- 2666 Mar, Nevoid hyperpigmentation L81.9 ; Encounter for immunization Z23 ; Skin tags, multiple acquired L91.8 and Seborrheic keratoses L82.1 [facility] [id number] [place] [address] 92147- 3989 Feb, [facility] [id number] [place] [address] 50886- 0273 Feb, [facility] [id number] [place] [address] 69748- 1629 Feb, [facility] [id number] [place] [address] 21596- 6203 Feb, Diabetes 250.00 ; Tinea corporis 110.5 and Shoulder pain, left 719.41 [facility] [id number] [place] [address] 59770- 5670 Jan, [facility] [id number] [place] [address] 42673- 6252 Dec, [facility] [id number] [place] [address] 49609- 3009 Dec, [facility] [address], [place] [address]- 6464 Dec, Seborrheic keratoses 702.19 ; Diabetes 250.00 and Hypoglycemia 251.2 [facility] [address], [place] [address]- 6611 Nov, [facility] [address], [place] [address]- 6188 Nov, Abnormal mammogram 793.80 [facility] [id number] [place] [address] 00106- 6345 October, Diabetes 250.00 and Colon polyp 211.3 [facility] [id number] [place] [address] 35125- 4112 Sep, [facility] [address], [place] [address]- 7363 Sep, [facility] [address] [place] [address] 33562- 8811 Sep, [facility] [address], [place] [address]- 6446 Aug, [facility] [address], [place] [address]- 1544 Aug, [facility] [address], [place] [address]- 7345 Jul, [facility] [address], [place] [address]- 0737 Jul, [facility] [id number], [place] [address]- 5162 Jun, [facility] [address], [place] [address]- 8435 Jun, [facility] [id number] 9635 Jun, [facility] [address], [place] [address]- 4849 Jun, [facility] [place] [facility] [address] [id number] [place] [address]- 4065 Jun, [facility] [place] [facility] [address] [id number] [place] [address]- 0591 Jun, [facility] [place] [facility] [address] [id number] [place] [address]- 1615 May, [facility] [place] [facility] [address] [id number] [place] [address]- 3401 May, [facility] [place] [facility] [address] [id number] [place] [address]- 4899 Apr, [facility] [place] [facility] [address] [id number] [place] [address]- 2665 Apr, [facility] [place] [facility] [address] [id number] [place] [address]- 9417 Apr, [facility] [place] [facility] [address] [id number] [place] [address]- 6327 Apr, [facility] [place] [facility] [address] [id number] [place] [address]- 6289 Apr, [facility] [place] [facility] [address] [id number] [place] [address]- 3561 Apr, [facility] [place] [facility] [address] [id number], [place] [address]- 5140 Apr, [facility] [place] [facility] [address] [id number], [place] [address]- 1283 Apr, [facility] [place] [facility] [address] [id number], [place] [address]- 7098 Apr, [facility] [place] [facility] [address] [id number], [place] [address]- 6752 Apr, [facility] [place] [facility] [address] [id number] [place] [address]- 4261 Mar, [facility] [place] [facility] [address] [id number] [place] [address]- 6562 Mar, [facility] [place] [facility] [address] [id number] [place] [address]- 4734 Mar, [facility] [place] [facility] [address] [id number] [place] [address]- 8389 Mar, [facility] [place] [facility] [address] [id number] [place] [address]- 8836 Mar, [facility] [place] [facility] [address] [id number] [place] [address]- 0890 Mar, [facility] [place] [facility] [address] [id number] [place] [address]- 8966 Mar, [facility] [place] [facility] [address] [id number] [place] [address]- 0000 Mar, [facility] [place] [facility] [address] [id number] [place] [address]- 7425 Feb, [facility] [place] [facility] [address] [id number] [place] [address]- 5898 Feb, [facility] [place] [facility] [address] [id number] [place] [address]- 3790 Feb, [facility] [place] [facility] [address] [id number] [place] [address]- 6348 Feb, [facility] [place] [facility] [address] [id number] [place] [address]- 8654 Jan, [facility] [place] [facility] [address] [id number] [place] [address]- 1212 Jan, [facility] [place] [facility] [address] [id number] [place] [address]- 9454 Dec, [facility] [place] [facility] [address] [id number] [place] [address]- 0865 Dec, [facility] [place] [facility] [address] [id number] [place] [address] Nov, [facility] [place] [facility] [address] [id number] [place] [address] Nov, [facility] [place] [facility] [address] [id number] [place] [address] Nov, [facility] [place] [facility] [address] [id number] [place] [address] Nov, [facility] [place] [facility] [address] [id number] [place] [address] October, [facility] [place] [facility] [address] [id number] [place] [address] October, [facility] [place] [facility] [address] [id number] [place] [address] October, [facility] [place] [facility] [address] [id number] [place] [address] October, [facility] [place] [facility] [address] [id number] [place] [address] October, [facility] [place] [facility] [address] [id number] [place] [address] October, [facility] [place] [facility] [address] [id number] [place] [address] October, [facility] [place] [facility] [address] [id number] [place] [address] October, [facility] [place] [facility] [address] [id number] [place] [address] Aug, [facility] [place] [facility] [address] [id number] [place] [address] Aug, [facility] [place] [facility] [address] [id number] [place] [address] Jul, [facility] [place] [facility] [address] [id number] [place] [address] Jul, [facility] [place] [facility] [address] [id number] [place] [address] Jul, [facility] [address] [id number] [place] [address] Jul, [facility] [address] [id number] [place] [address] Jul, [facility] [address] [id number] [place] [address] Jun, [facility] [address] [id number] [place] [address] Jun, [facility] [address] [id number] [place] [address] May, [facility] [address] [id number] [place] [address] May, [facility] [address] [facility] [id number] [place] [address] Apr, [facility] [address] [id number] [place] [address] Apr, [facility] [address] [facility] [id number] [place] [address] Mar, [facility] [address] [facility] [id number] [place] [address] Mar, [facility] [place] [facility] [address] [id number] [place] [address] Mar, [facility] [place] [facility] [address] [id number] [place] [address] 20 Feb, 2013 [facility] [place] [facility] [address] [id number] [place] [address] 20 Feb, 2013 [facility] [place] [facility] [address] [id number] [place] [address] 17 Feb, 2013 [facility] [place] [facility] [address] [id number] [place] [address] 04 Feb, 2013 [facility] [place] [facility] [address] [id number] [place] [address] Feb, [facility] [address] [id number] [place] [address] Jan, [facility] [address] [id number] [place] [address] Dec, [facility] [address] [id number] [place] [address] Nov, [facility] [address] [id number] [place] [address] October, [facility] [address] [id number] [place] [address] Sep, [facility] [address] [id number] [place] [address] Aug, [facility] [address] [id number] [place] [address] Aug, [facility] [address] [id number] [place] [address] Aug, [facility] [address] [id number] [place] [address] May, [facility] [address] [id number] [place] [address] May, [facility] [address] [id number] [place] [address] May, [facility] [place] [facility] [address] [id number] [place] [address] May, [facility] [place] [facility] [address] [id number] [place] [address] May, [facility] [place] [facility] [address] [id number] [place] [address] 16 Apr, 2012 [facility] [place] [facility] [address] [id number], [place] [address] 16 Apr, 2012 [facility] [place] [facility] [address] [id number] [place] [address] 14 Apr, 2012 [facility] [place] [facility] [address] [id number] [place] [address] 14 Apr, 2012 [facility] [place] [facility] [address] [id number] [place] [address] Apr, [facility] [place] [facility] [address] [id number] [place] [address] Apr, [facility] [place] [facility] [address] [id number] [place] [address] Apr, [facility] [place] [facility] [address] [id number] [place] [address] Apr, [facility] [place] [facility] [address] [facility] [id number] [place] [address] Mar, [facility] [place] [facility] [address] [id number] [place] [address] Mar, [facility] [place] [facility] [address] [id number] [place] [address] Mar, [facility] [place] [facility] [address] [facility] [id number] [place] [address] Mar, [facility] [place] [facility] [address] [id number], [place] [address] Mar, [facility] [place] [facility] [address] [id number], [place] [address] Mar, [facility] [place] [facility] [address] [id number], [place] [address] Mar, [facility] [place] [facility] [address] [id number] [place] [address] 28 Feb, 2012 [facility] [place] [facility] [address] [id number] [place] [address] 24 Feb, 2012 [facility] [place] [facility] [address] [id number] [place] [address]20 20 Feb, 2012 [facility] [place] [facility] [address] [id number] [place] [address] Feb, [facility] [place] [facility] [address] [id number] [place] [address] Jan, [facility] [place] [facility] [address] [id number] [place] [address] Jan, [facility] [place] [facility] [address] [id number] [place] [address] Jan, [facility] [place] [facility] [address] [id number] [place] [address] Jan, [facility] [place] [facility] [address] [id number] [place] [address] Jan, [facility] [place] [facility] [address] [id number] [place] [address] Jan, [facility] [place] [facility] [address] [id number] [place] [address] Dec, [facility] [place] [facility] [address] [id number] [place] [address]- [address] Dec, [facility] [place] [facility] [address] [id number] [place] [address] Dec, [facility] [place] [facility] [address] [id number] [place] [address] Dec, [facility] [place] [facility] [address] [id number] [place] [address] 2544 Dec, [facility] [place] [facility] [address] [id number] [place] [address]- [address] Dec, [facility] [place] [facility] [address] [id number] [place] [address] 2546 Dec, [facility] [place] [facility] [address] [id number] [place] [address] Dec, [facility] [place] [facility] [address] [id number] [place] [address] Nov, [facility] [place] [facility] [address] [id number] [place] [address] Nov, [facility] [place] [facility] [address] [id number] [place] [address] Nov, [facility] [place] [facility] [address] [id number] [place] [address]- 0468 Nov, [facility] [place] [facility] [address] [id number] [place] [address] October, [facility] [place] [facility] [address] [id number] [place] [address] 2427 October, [facility] [place] [facility] [address] [id number] [place] [address]- [address] Sep, [facility] [place] [facility] [address] [id number] [place] [address] Sep, [facility] [place] [facility] [address] [id number] [place] [address]- [address] Aug, [facility] [place] [facility] [address] [id number] [place] [address]- 5480 Aug, [facility] [place] [facility] [address] [id number] [place] [address]- 9329 Aug, [facility] [place] [facility] [address] [id number], [place] [address] Aug, [facility] [place] [facility] [address] [id number] [place] [address]- [address] Aug, [facility] [place] [facility] [address] [id number] [place] [address]- [address] 08 Jul, 2011 [facility] [place] [facility] [address] [facility] [id number] [place] [address]- [address] Jul, [facility] [place] [facility] [address] [id number] [place] [address]- [address] 03 Jul, 2011 [facility] [address] [id number] [place] [address]- [address] Jul, [facility] [address] [id number] [place] [address]- 1563 Jun, [facility] [address] [id number] [place] [address]- 9738 Jun, [facility] [address] [id number] [place] [address]- 7614 Jun, [facility] [address] [id number] [place] [address]- 4837 Jun, [facility] [address] [id number] [place] [address]- 9224 Jun, [facility] [address] [facility] [id number] [place] [address]- 7758 May, [facility] [address] [id number] [place] [address]- 9379 May, [facility] [address] [id number] [place] [address]- 4086 May, [facility] [address] [facility] [id number] [place] [address]- 0[address] May, [facility] [address] [id number] [place] [address]- 0835 May, [facility] [address] [id number] [place] [address]- 2462 May, [facility] [address] [id number] [place] [address]- 9463 Apr, [facility] [address] [id number] [place] [address]- 6192 Apr, [facility] [address] [id number] [place] [address]- 9526 14 Mar, 2011 [facility] [address] [facility] [id number], [place] [address] 2546 13 Mar, 2011 [facility] [address] [id number], [place] [address] 2546 October, [facility] [address] [id number], [place] [address] May, [facility] [address] [facility] [id number], [place] [address]- 2546 Apr, [facility] [address] [facility] [id number], [place] [address] 2546 Jul, [facility] [address] [id number], [place] [address] May, [facility] [id number], [place] [address] 2546 May, [facility] [id number], [place] [address] 2546 May, [facility] [address] [id number], [place] [address] 2546 Apr, [facility] [address] [id number], [place] [address]- 2426 Apr, [facility] [address] [id number], [place] [address] 2546 Mar, [facility] [address] [id number], [place] [address] 2546 Jan, [facility] [address] [id number], [place] [address] 2546 Nov, IMMUNIZATIONS No Known Immunizations SOCIAL HISTORY Never Assessed REASON FOR VISIT Breast exam-Felicia, --mammogram order needed to [facility] PLAN OF CARE Activity Details Follow Up 1 year or regular fu with pcp Reason:yearly breast exam VITAL SIGNS Height 69 in 2017-06-28 Weight 253.2 lbs 2017-06-28 Temperature 97.9 degrees Fahrenheit 2017-06-28 Heart Rate 90 bpm 2017-06-28 Respiratory Rate 20 2017-06-28 BMI 37.39 kg/m2 2017-06-28 Blood pressure systolic 121 mmHg 2017-06-28 Blood pressure diastolic 60 mmHg 2017-06-28 MEDICATIONS Medication Instructions Dosage Frequency Start Date End Date Duration Status Pen [place] 31G X 6 MM use with victoza pens 15 Nov, 2016 Active GlipiZIDE 10 2 tablets 12h Active [place] 7.5-325 MG Orally 3 times a day 1 tablet as needed 8h May, Jun, 28 days Active Victoza 18 MG/3ML Subcutaneous Once a day 1.2 mg 24h October, Active Flonase 50 MCG/ACT Nasally Once a day 1 spray in each nostril 24h Active GlipiZIDE 10 MG TAKE TWO TABLETS BY MOUTH TWICE DAILY 30 Not- Taking Losartan Potassium 50 MG TAKE ONE TABLET BY MOUTH ONCE DAILY 30 Active C-PAP Machine Active Aspirin 81 TAKE ONE TABLET BY MOUTH DAILY 30 Active Blood Pressure Cuff Dx: Hypertension Mar, Active Amlodipine Besylate 10 mg 1 tablet 24h 30 Active Atorvastatin Calcium 40 MG TAKE ONE TABLET BY MOUTH ONCE DAILY 30 Active FreeStyle Lite Test - In Vitro 2 times a day test blood sugar 12h Active Lasix 20 mg Orally Once a day 1 tablet 24h Aug, 07 days Active Montelukast Sodium 10 MG Orally Once a day 1 tablet in the evening 24h Active Ipratropium-Albuterol 0.5-2.5 (3) MG/3ML Inhalation every 6 hrs 3 ml 6h Active MetFORMIN HCl ER 500 MG Orally twice a day 2 tablets 12h 30 Active Zyrtec Allergy 10 1 tablet 24h Active Nebulizer - Active Klor-Con 10 10 MEQ Orally Once a day 1 tablet with food 24h Active Vitamin D 1000 UNIT Orally Once a day 1 tablet 24h Active RESULTS Name Result Date Reference Range Mammogram, Bilateral Screening 2017-07-22 PROCEDURES Procedure Date Ordered Result Body Site [facility] VISIT ESTABLISHED PATIENT Jun 28, 2017 INSTRUCTIONS MEDICATIONS ADMINISTERED No Known Medications [...]
--- OUTSIDE RECORDS SUMMARY | 2018-02-19 21:35 | XMS REPORT ---
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 Name Role Phone BOOGIE ARAUJO Unavailable PROBLEMS Type Condition ICD9-CM Code VBJ29-DY Code Onset Dates Condition Status SNOMED Code Problem History of abnormal cervical Pap smear Z87.898 Active 162622967 Problem Thoracogenic scoliosis of thoracolumbar region M41.35 Active 34968922 Problem Uncontrolled type 2 diabetes mellitus without complication, without long-term current use of insulin E11.65 Active 896730048 Problem Diabetes type 2, controlled E11.9 Active 72409318 Problem Thyroid nodule E04.1 Active 069876371 Problem History of colon polyps Z86.010 Active 854758765 Problem Other iron deficiency anemia D50.8 Active 38292296 Problem Iron deficiency anemia due to chronic blood loss D50.0 Active 604300038 Problem Screening breast examination Z12.39 Active 236790681 Problem Allergic rhinitis, unspecified allergic rhinitis trigger, unspecified rhinitis seasonality J30.9 Active 02335252 Problem Controlled type 2 diabetes mellitus without complication, without long -term current use of insulin E11.9 Active 027816265 Problem Other chronic pain G89.29 Active 97831201 ALLERGIES Substance Reaction Event Type Date Status [...] Jun, Active ENCOUNTERS Encounter Location Date Diagnosis [facility] [address] [facility] [id number] [address] Dec, [facility] [address] [address] 14 Nov, 2017 Other chronic pain G89.29 [facility] [address], [place] [address] 9[address] 07 Nov, 2017 [facility] [address], [place] [address] Nov, [facility] [id number] [place] [address] 87710- 5094 October, Diabetes type 2, controlled E11.9 and Acute cystitis without hematuria N30.00 [facility] [id number] [place] [address] 46735- 1094 October, [facility] [id number] [place] [address] 25223- 0794 October, [facility] [id number] [place] [address] 50257- 2430 October, [facility] [id number] [place] [address] 95803- 1925 October, Other chronic pain G89.29 [facility] [address] [address] 9434 Sep, Diabetes type 2, controlled E11.9 [facility] [address], [place] [address] 7021 Sep, [facility] [address], [place] [address] 0946 Sep, Diabetes type 2, controlled E11.9 [facility] [id number] [place] [address] 30353- 2592 16 Sep, 2017 Other chronic pain G89.29 [facility] [address], [place] [address] 8091 13 Sep, 2017 Other iron deficiency anemia D50.8 [facility] [id number] [place] [address] 16458- 5646 Sep, Other iron deficiency anemia D50.8 [facility] [id number] [place] [address] 24037- 7297 Sep, Iron deficiency anemia due to chronic blood loss D50.0 and Dysuria R30.0 [facility] [facility] [address] 42970- 7468 Sep, Dysuria R30.0 [facility] [facility] [address] 50867- 2804 Sep, Iron deficiency anemia due to chronic blood loss D50.0 [place] [address] 11064- 7267 Sep, [facility] [id number] [place] [address] 00535- 7095 Sep, Controlled type 2 diabetes mellitus without complication, without long-term current use of insulin E11.9 ; Leg cramps R25.2 ; Low back pain M54.5 and Other chronic pain G89.29 [facility] [id number] [place] [address] 77036- 4635 Sep, Controlled type 2 diabetes mellitus without complication, without long-term current use of insulin E11.9 ; Low back pain M54.5 ; Other chronic pain G89.29 and Leg cramps R25.2 [facility] [id number] [place] [address] 61308- 9039 Aug, Other chronic pain G89.29 [facility] [id number] [place] [address] 53500- 9193 Jul, Other chronic pain G89.29 [facility] [id number] [place] [address] 6098 Jul, Pneumonia of left lower lobe due to infectious organism J18.1 [facility] [id number] [place] [address] 11053 -9017 Jul, Dysuria R30.0 ; Cough in adult patient R05 and Pneumonia of left lower lobe due to infectious organism J18.1 [facility] [id number] [place] [address] 58274- 8461 08 Jul, 2017 [facility] [id number] [place] [address] 98738- 6967 Jun, Other chronic pain G89.29 [facility] [id number] [place] [address] 85776- 3310 Jun, [facility] [id number] [place] [address] 32121- 0189 Jun, Diabetes type 2, controlled E11.9 ; Back muscle spasm M62.830 and Other chronic pain G89.29 [facility] [id number] [place] [address] 15401- 6377 Jun, Screening breast examination Z12.31 [facility] [id number] [place] [address] 94114- 8872 May, Other chronic pain G89.29 [facility] [id number] [place] [address] 03396- 4980 May, [facility] [id number] [place] [address] 92773- 4742 May, UTI (urinary tract infection) N39.0 [facility] [id number] [place] [address] 39827- 2541 May, Dysuria R30.0 [facility] [id number] [place] [address] 46191- 2548 May, Dysuria R30.0 [facility] [id number] [place] [address] 97492- 8989 04 May, 2017 Diabetes type 2, controlled E11.9 ; 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 and Other chronic pain G89.29 [facility] [id number] [place] [address] 51802- 0847 Apr, Diabetes type 2, controlled E11.9 [facility] [id number] [place] [address] 82161 -8965 Mar, Paronychia of great toe, right L03.031 and Dysuria R30.0 [facility] [id number] [place] [address] 43420- 8641 Mar, Diabetes type 2, controlled E11.9 [facility] [id number] [place] [address] 91309- 1829 28 Feb, 2017 Diabetes type 2, controlled E11.9 [facility] [address] [id number] 13 Feb, 2017 Dental examination Z01.20 [facility] [id number] [place] [address] 19729- 6331 11 Feb, 2017 Diabetes type 2, controlled E11.9 [facility] [id number] [place] [address] 41843- 6292 Feb, Diabetes type 2, controlled E11.9 [facility] [id number] [place] [address] 42849- 2774 Jan, Diabetes type 2, controlled E11.9 [facility] [id number] [place] [address] 80300- 0334 Dec, Diabetes type 2, controlled E11.9 [facility] [id number] [place] [address] 04467- 0551 Dec, Diabetes type 2, controlled E11.9 [facility] [id number] [place] [address] 55409- 0062 Nov, Diabetes type 2, controlled E11.9 [facility] [id number] [place] [address] 48761- 6272 Nov, Diabetes type 2, controlled E11.9 [facility] [id number] [place] [address] 89435- 5675 Nov, Diabetes type 2, controlled E11.9 [facility] [address], [place] [address]- 9629 Nov, Diabetes type 2, controlled E11.9 [facility] [id number] [place] [address] 36295- 8533 Nov, Diabetes type 2, controlled E11.9 [facility] [id number] [place] [address] 32640- 0773 Nov, Diabetes type 2, controlled E11.9 [facility] [id number] [place] [address] 70469- 3082 October, Pain in unspecified shoulder M25.519 [facility] [id number] [place] [address] 51399- 9102 October, Diabetes type 2, controlled E11.9 and Cellulitis of right lower extremity L03.115 [facility] [id number] [place] [address] 28177- 5573 October, Pain in unspecified shoulder M25.519 [facility] [id number] [place] [address] 00050- 2114 Sep, Diabetes type 2, controlled E11.9 [facility] [id number] [place] [address] 28621- 3837 Aug, Pain in unspecified shoulder M25.519 [facility] [id number] [place] [address] 52051- 2503 Aug, Diabetes type 2, controlled E11.9 [facility] [id number] [place] [address] 84058- 7840 Aug, Diabetes type 2, controlled E11.9 ; Dark urine R82.99 and Localized edema R60.0 [facility] [id number] [place] [address] 08481- 1694 07 Aug, 2016 Pain in unspecified shoulder M25.519 [facility] [id number] [place] [address] 18769- 1595 07 Jul, 2016 Pain in unspecified shoulder M25.519 [facility] [id number] [place] [address] 94964- 2859 06 Jul, 2016 [facility] [id number] [place] [address] 64651- 4942 02 Jul, 2016 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, 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 E11.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 [facility] [id number] [place] [address] 26074- 3526 Jun, Diabetes type 2, controlled E11.9 [facility] [id number] [place] [address] 74741- 9627 Jun, Screening breast examination Z12.39 and Allergic rhinitis, unspecified allergic rhinitis trigger, unspecified rhinitis seasonality J30.9 [facility] [address] 03763- 1367 Jun, Pain in unspecified shoulder M25.519 [facility] [id number] [place] [address] 07212- 2786 May, [facility] [address] 93555- 7077 May, Pain in unspecified shoulder M25.519 [facility] [facility] [id number] [place] [address] 36719- 7650 May, Thoracogenic scoliosis of thoracolumbar region M41.35 ; Low back pain M54.5 ; Other chronic pain G89.29 and Uncontrolled type 2 diabetes mellitus without complication, without long-term current use of insulin E11.65 [facility] [id number] [place] [address] 94260- 6029 Apr, [facility] [id number] [place] [address] 74142- 7278 Apr, [facility] [id number] [place] [address] 77265- 5720 04 Apr, 2016 History of type 2 diabetes mellitus Z86.39 and Encounter for immunization Z23 [facility] [address], [place] [address]- 7611 Mar, [facility] [id number] [place] [address] 95011- 7924 Mar, [facility] [id number] [place] [address] 29053- 3820 Feb, [facility] [id number] [place] [address] 04271- 0505 Jan, [facility] [id number] [place] [address] 81192- 7647 Jan, [facility] [id number] [place] [address] 43783- 6948 Dec, [facility] [id number] [place] [address] 41844 -2589 Dec, Sore throat J02.9 and Allergic rhinitis, unspecified allergic rhinitis type J30.9 [facility] [id number] [address]- 6830 Dec, Diabetes type 2, controlled E11.9 [facility] [id number] [place] [address] 30313- 3721 Nov, [facility] [address], [place] [address]- 9379 Nov, [facility] [address], [place] [address]- 9413 October, [facility] [address], [place] [address]- 1514 October, [facility] [id number] [place] [address] 47675- 7601 Sep, [facility] [address], [place] [address]- 5734 Aug, [facility] [id number] [place] [address] 06222- 2760 Aug, Diabetes type 2, controlled E11.9 ; UTI (urinary tract infection) N39.0 and Bacterial infection A49.9 [facility] [facility] [id number] [place] [address] 44083- 1603 Jul, [facility] [id number] [place] [address] 09943- 6461 Jul, [facility] [address] 00669- 9990 Jul, Pharyngitis J02.9 and Seborrheic keratoses L82.1 [place] [address] 42019- 3673 Jun, [facility] [address] 11090- 1126 May, [address] 24855- 9432 May, Skin tags, multiple acquired L91.8 ; Seborrheic keratoses L82.1 and Diabetes type 2, controlled E11.9 [facility] [id number] [place] [address] 04617- 4052 May, Well woman exam Z01.419 ; Papanicolaou [...] Other fatigue R53.83 and Other hemorrhoids K64.8 [address] [place] [address] 86871- 2446 May, [place] [id number] [place] [address] 41168- 7831 May, [facility] [id number] [place] [address] 47076- 0807 Apr, Seborrheic keratosis L82.1 and Diabetes type 2, controlled E11.9 [facility] [id number] [place] [address] 69686- 8308 Apr, Seborrheic keratosis L82.1 and Diabetes type 2, controlled E11.9 [facility] [id number] [place] [address] 74311- 4747 Mar, [facility] [id number] [place] [address] 72880- 2235 Mar, [facility] [id number] [place] [address] 16316- 5311 Mar, Nevoid hyperpigmentation L81.9 ; Encounter for immunization Z23 ; Skin tags, multiple acquired L91.8 and Seborrheic keratoses L82.1 [facility] [id number] [place] [address] 64093- 0612 Feb, [facility] [id number] [place] [address] 11961- 4236 Feb, [facility] [id number] [place] [address] 84407- 2014 Feb, [facility] [id number] [place] [address] 75617- 3060 Feb, Diabetes 250.00 ; Tinea corporis 110.5 and Shoulder pain, left 719.41 [facility] [id number] [place] [address] 93026- 2618 Jan, [facility] [address] 15100- 8885 Dec, [facility] [id number] [place] [address] 77423- 3395 Dec, [facility] [address] [place] [address]- 4422 Dec, Seborrheic keratoses 702.19 ; Diabetes 250.00 and Hypoglycemia 251.2 [facility] [address], [place] [address]- 8887 Nov, [facility] [address], [place] [address]- 7647 Nov, Abnormal mammogram 793.80 [facility] [id number] [place] [address] 27536- 4942 October, Diabetes 250.00 and Colon polyp 211.3 [facility] [id number] [place] [address] 544209- 7784 Sep, [facility] [id number] [address]- 3357 Sep, [facility] [id number] [place] [address] 82755- 8356 Sep, [facility] [address], [place] [address]- 6889 Aug, [facility] [address], [place] [address]- 0567 Aug, [facility] [address], [place] [address]- 0008 Jul, [facility] [address], [place] [address]- 6267 Jul, [facility] [address], [place] [address]- 6672 Jun, [facility] [address], [place] [address]- 1767 Jun, [facility] [address], [place] [address]- 3016 Jun, [facility] [address], [place] [address]- 9422 Jun, [facility] [place] [facility] [address] [id number] [place] [address]- 0069 Jun, [facility] [place] [facility] [address] [id number] [place] [address]- 1142 Jun, [facility] [place] [facility] [address] [id number] [place] [address]- 0795 May, [facility] [place] [facility] [address] [id number] [place] [address]- 5571 May, [facility] [place] [facility] [address] [id number] [place] [address]- 9819 Apr, [facility] [place] [facility] [address] [id number] [place] [address]- 7689 Apr, [facility] [place] [facility] [address] [id number] [place] [address]- 1776 Apr, [facility] [place] [facility] [address] [id number] [place] [address]- 7411 Apr, [facility] [place] [facility] [address] [id number] [place] [address]- 6807 Apr, [facility] [place] [facility] [address] [id number] [place] [address]- 3450 Apr, [facility] [place] [facility] [address] [id number] [place] [address]- 2764 Apr, [facility] [place] [facility] [address] [id number] [address]- 6936 Apr, [facility] [place] [facility] [address] [id number] [place] [address]- 1994 Apr, [facility] [place] [facility] [address] [id number] [place] [address]- 5792 Apr, [facility] [place] [facility] [address] [id number] [place] [address]- 1898 Mar, [facility] [place] [facility] [address] [id number] [place] [address]- 3310 Mar, [facility] [place] [facility] [address] [id number] [place] [address]- 3565 Mar, [facility] [place] [facility] [address] [id number] [place] [address]- 9981 Mar, [facility] [place] [facility] [address] [id number] [place] [address]- 7569 Mar, [facility] [place] [facility] [address] [id number] [place] [address]- 7406 Mar, [facility] [place] [facility] [address] [id number] [place] [address]- 8139 Mar, [facility] [place] [facility] [address] [id number] [place] [address]- 3079 Mar, [facility] [place] [facility] [address] [id number] [place] [address]- 4421 Feb, [facility] [place] [facility] [address] [id number] [place] [address]- 5374 Feb, [facility] [place] [facility] [address] [id number] [place] [address]- 4070 Feb, [facility] [place] [facility] [address] [id number] [place] [address]- 3939 Feb, [facility] [place] [facility] [address] [id number] [place] [address]- 8348 Jan, [facility] [place] [facility] [address] [id number] [place] [address]- 3572 Jan, [facility] [place] [facility] [address] [id number] [place] [address]- 3149 Dec, [facility] [place] [facility] [address] [id number] [place] [address]- 3609 Dec, [facility] [place] [facility] [address] [id number] [place] [address]- 8828 Nov, [facility] [place] [facility] [address] [id number] [place] [address]- 0103 Nov, [facility] [place] [facility] [address] [id number] [place] [address]- 5960 Nov, [facility] [place] [facility] [address] [id number] [place] [address]- 5273 Nov, [facility] [place] [facility] [address] [id number] [place] [address]- 9256 October, [facility] [place] [facility] [address] [id number] [place] [address]- 8035 October, [facility] [place] [facility] [address] [id number] [place] [address]- 7855 October, [facility] [place] [facility] [address] [id number] [place] [address]- 4806 October, [facility] [place] [facility] [address] [id number] [place] [address]- 6615 October, [facility] [place] [facility] [address] [id number] [place] [address]- 9166 October, [facility] [place] [facility] [address] [id number] [place] [address]- 3553 October, [facility] [place] [facility] [address] [id number] [place] [address]- 4215 October, [facility] [place] [facility] [address] [id number] [place] [address]- 4862 Aug, [facility] [place] [facility] [address] [id number] [place] [address]- 1933 Aug, [facility] [place] [facility] [address] [id number] [place] [address]- 6208 Jul, [facility] [place] [facility] [address] [id number] [place] [address]- 0983 Jul, [facility] [place] [facility] [address] [id number] [address]- 5106 Jul, [facility] [address] [id number] [place] [address] Jul, [facility] [place] [facility] [address] [id number] [place] [address] Jul, [facility] [place] [facility] [address] [id number] [place] [address] Jun, [facility] [place] [facility] [address] [id number] [place] [address] Jun, [facility] [place] [facility] [address] [id number] [place] [address] May, [facility] [place] [facility] [address] [id number] [place] [address] May, [facility] [address] [facility] [id number], [place] [address] Apr, [facility] [place] [facility] [address] [id number] [place] [address] Apr, [facility] [place] [facility] [address] [id number], [place] [address] Mar, [facility] [place] [facility] [address] [facility] [id number], [place] [address] Mar, [facility] [place] [facility] [address] [id number], [place] [address] Mar, [facility] [place] [facility] [address] [id number], [place] [address] Feb, [facility] [place] [facility] [address] [id number], [place] [address] 20 Feb, 2013 [facility] [place] [facility] [address] [id number], [place] [address] 17 Feb, 2013 [facility] [place] [facility] [address] [id number], [place] [address] 04 Feb, 2013 [facility] [place] [facility] [address] [id number] [place] [address] Feb, [facility] [address] [id number] [place] [address] Jan, [facility] [place] [facility] [address] [id number] [place] [address] Dec, [facility] [address] [id number] [place] [address] Nov, [facility] [address] [id number] [place] [address] October, [facility] [address] [id number] [place] [address] Sep, [facility] [address] [id number] [place] [address] Aug, [facility] [address] [id number] [place] [address] Aug, [facility] [address] [id number] [place] [address] Aug, [facility] [address] [id number] [place] [address] May, [facility] [address] [id number] [place] [address] May, [facility] [address] [id number] [place] [address] May, [facility] [address] [id number] [place] [address] May, [facility] [place] [facility] [address] [id number] [place] [address] May, [facility] [address] [id number] [place] [address] Apr, [facility] [address] [id number] [place] [address] Apr, [facility] [place] [facility] [address] [id number] [place] [address] 14 Apr, 2012 [facility] [place] [facility] [address] [id number] [place] [address] 14 Apr, 2012 [facility] [place] [facility] [address] [id number] [place] [address] Apr, [facility] [place] [facility] [address] [id number] [place] [address] Apr, [facility] [place] [facility] [address] [id number] [place] [address] Apr, [facility] [place] [facility] [address] [id number] [place] [address] Apr, [facility] [place] [facility] [address] [id number] [place] [address] Mar, [facility] [place] [facility] [address] [id number] [place] [address] Mar, [facility] [place] [facility] [address] [id number] [place] [address] Mar, [facility] [place] [facility] [address] [id number], [place] [address] Mar, [facility] [place] [facility] [address] [id number], [place] [address] Mar, [facility] [place] [facility] [address] [id number], [place] [address] Mar, [facility] [place] [facility] [address] [id number] [place] [address] Mar, [facility] [place] [facility] [address] [id number] [address] Feb, [facility] [place] [facility] [address] [id number] [place] [address] 24 Feb, 2012 [facility] [place] [facility] [address] [id number] [place] [address] 20 Feb, 2012 [facility] [place] [facility] [address] [id number] [place] [address] Feb, [facility] [place] [facility] [address] [id number] [place] [address] Jan, [facility] [place] [facility] [address] [id number] [place] [address] Jan, [facility] [place] [facility] [address] [id number] [place] [address] Jan, [facility] [place] [facility] [address] [id number] [place] [address] 39[address] Jan, [facility] [place] [facility] [address] [id number] [place] [address] Jan, [facility] [place] [facility] [address] [id number] [place] [address] Jan, [facility] [place] [facility] [address] [id number] [place] [address] Dec, [facility] [place] [facility] [address] [id number] [place] [address] Dec, [facility] [place] [facility] [address] [id number] [place] [address] Dec, [facility] [place] [facility] [address] [id number] [place] [address] Dec, [facility] [place] [facility] [address] [id number] [place] [address] 2547 Dec, [facility] [place] [facility] [address] [id number] [place] [address] 18 Dec, 2011 [facility] [place] [facility] [address] [id number] [place] [address] 5664 Dec, [facility] [place] [facility] [address] [id number] [place] [address] Dec, [facility] [place] [facility] [address] [id number] [place] [address]483 Nov, [facility] [place] [facility] [address] [id number] [place] [address] Nov, [facility] [place] [facility] [address] [id number] [place] [address] Nov, [facility] [place] [facility] [address] [id number] [place] [address] Nov, [facility] [place] [facility] [address] [id number] [place] [address] October, [facility] [place] [facility] [address] [id number] [place] [address] October, [facility] [place] [facility] [address] [id number] [place] [address] Sep, [facility] [place] [facility] [address] [id number] [place] [address] Sep, [facility] [place] [facility] [address] [id number] [place] [address] Aug, [facility] [place] [facility] [address] [id number] [place] [address] Aug, [facility] [place] [facility] [address] [id number] [place] [address] Aug, [facility] [place] [facility] [address] [id number] [place] [address] Aug, [facility] [place] [facility] [address] [id number] [place] [address]- [address] 05 Aug, 2011 [facility] [place] [facility] [address] [id number] [place] [address] Jul, [facility] [place] [facility] [address] [id number] [place] [address] Jul, [facility] [place] [facility] [address] [id number] [place] [address] 0[address] Jul, [facility] [address] [id number] [place] [address] 8163 Jul, [facility] [place] [facility] [address] [id number] [place] [address] 115[address] Jun, [facility] [place] [facility] [address] [id number] [place] [address]- 2992 Jun, [facility] [place] [facility] [address] [id number] [place] [address]- 1316 Jun, [facility] [place] [facility] [address] [id number] [place] [address]- 8263 Jun, [facility] [place] [facility] [address] [id number] [place] [address]- 9137 Jun, [facility] [address] [id number] [place] [address]- [address]37 May, [facility] [place] [facility] [address] [id number] [place] [address] 5[address] May, [facility] [place] [facility] [address] [id number] [place] [address] May, [facility] [place] [facility] [address] [facility] [id number] [place] [address] 9[address] May, [facility] [place] [facility] [address] [id number], [place] [address] May, [facility] [place] [facility] [address] [id number], [place] [address] May, [facility] [place] [facility] [address] [id number] [place] [address]- 3954 Apr, [facility] [place] [facility] [address] [id number] [place] [address]- 6914 Apr, [facility] [place] [facility] [address] [id number] [place] [address]- 1640 Mar, [facility] [place] [facility] [id number], [place] [address] 13 Mar, 2011 [facility] [id number] [place] [address] October, [facility] [id number], [place] [address] May, [facility] [id number] [place] [address] Apr, [facility] [id number] [address] Jul, [facility] [id number] [place] [address]- [address] May, [facility] [id number] [place] [address]- 8636 May, [facility] [id number] [place] [address]- 2546 May, [facility] [id number], [place] [address]- [address] Apr, [facility] [id number] [place] [address]- [address]86 Apr, [facility] [address] [id number], [place] [address] Mar, [facility] [id number], [place] [address]- [address] Jan, [facility] [address] [id number], [place] [address]- [address] Nov, IMMUNIZATIONS No Known Immunizations SOCIAL HISTORY Never Assessed REASON FOR VISIT DM-got new raegan, Wants to see about getting MRI on back, meds were decreased this last refill. REports pain in back with ativity after 2-3 hrs. , CBrumbackRN PLAN OF CARE VITAL SIGNS Height 69 in 2017-06-30 Weight 250.9 lbs 2017-06-30 Temperature 98.1 degrees Fahrenheit 2017-06-30 Heart Rate 84 bpm 2017-06-30 Respiratory Rate 20 2017-06-30 BMI 37.05 kg/m2 2017-06-30 Blood pressure systolic 110 mmHg 2017-06-30 Blood pressure diastolic 76 mmHg 2017-06-30 MEDICATIONS Medication Instructions Dosage Frequency Start Date End Date Duration Status [place] 7.5-325 MG Orally 3 times a day 1 tablet as needed 8h May, Jun, 28 days Active Victoza 18 MG/3ML Subcutaneous Once a day 1.2 mg 24h October, Active Atorvastatin Calcium 40 MG TAKE ONE TABLET BY MOUTH ONCE DAILY 30 Active Losartan Potassium 50 MG TAKE ONE TABLET BY MOUTH ONCE DAILY 30 Active Lasix 20 mg Orally Once a day as needed 1 tablet Aug, Active Amlodipine Besylate 10 mg 1 tablet 24h 30 Active GlipiZIDE 10 MG TAKE TWO TABLETS BY MOUTH TWICE DAILY 30 Not- Taking Ipratropium-Albuterol 0.5-2.5 (3) MG/3ML Inhalation every 6 hrs 3 ml 6h Active Montelukast Sodium 10 MG Orally Once a day 1 tablet in the evening 24h Active Klor-Con 10 10 MEQ Orally Once a day as needed when lasix taken 1 tablet with food Active Vitamin D 1000 UNIT Orally Once a day 1 tablet 24h Active Aspirin 81 TAKE ONE TABLET BY MOUTH DAILY 30 Active Zanaflex 4 MG Orally 2 times a day 1 tablet as needed 12h Jun, Active Zyrtec Allergy 10 1 tablet 24h Active Cyclobenzaprine HCl 10 mg Orally 2 times a day 1 tablet as needed 12h Jun, Active Flonase 50 MCG/ACT Nasally Once a day 1 spray in each nostril 24h Active MetFORMIN HCl ER 500 MG Orally twice a day 2 tablets 12h 30 Active FreeStyle Lite Test - In Vitro 2 times a day test blood sugar 12h Active Blood Pressure Cuff Dx: Hypertension Mar, Active Nebulizer - Active Pen [place] 31G X 6 MM use with victoza pens Nov, Active C-PAP Machine Active GlipiZIDE 10 2 tablets 12h Active RESULTS Name Result Date Reference Range A1C (IN HOUSE) 2017-06-30 A1C IN HOUSE 7.4 4.3 - 5.6 % Previous A1c 7.6 Lot [id number] Exp date 03/2019 Xray : Chest 2 View (IN HOUSE) 2017-06-30 [employer] 2017-06-30 PROCEDURES Procedure Date Ordered Result Body Site X-RAY EXAM CHEST 2 VIEWS Jun 30, 2017 GLYCATED HEMOGLOBIN TEST Jun 30, 2017 [facility] VISIT ESTABLISHED PATIENT Jun 30, 2017 INSTRUCTIONS MEDICATIONS ADMINISTERED No Known [...]
--- OUTSIDE RECORDS SUMMARY | 2018-02-19 21:36 | XMS REPORT ---
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 Role Phone BOOGIE ARAUJO Unavailable PROBLEMS Type Condition ICD9-CM Code ZBH50-ZG Code Onset Dates Condition Status SNOMED Code Problem History of abnormal cervical Pap smear Z87.898 Active 028943932 Problem Thoracogenic scoliosis of thoracolumbar region M41.35 Active 64460814 Problem Uncontrolled type 2 diabetes mellitus without complication, without long-term current use of insulin E11.65 Active 307435136 Problem Diabetes type 2, controlled E11.9 Active 04505555 Problem Thyroid nodule E04.1 Active 251963676 Problem History of colon polyps Z86.010 Active 566665992 Problem Other iron deficiency anemia D50.8 Active 69939440 Problem Iron deficiency anemia due to chronic blood loss D50.0 Active 252667947 Problem Screening breast examination Z12.39 Active 785983451 Problem Allergic rhinitis, unspecified allergic rhinitis trigger, unspecified rhinitis seasonality J30.9 Active 37384720 Problem Controlled type 2 diabetes mellitus without complication, without long -term current use of insulin E11.9 Active 452776911 Problem Other chronic pain G89.29 Active 77451833 ALLERGIES No Information ENCOUNTERS Encounter Location Date Diagnosis [facility] [id number], [place] [address] Dec, [facility] [id number], [place] [address] Nov, Other chronic pain G89.29 [facility] [address], [place] [address] Nov, [facility] [id number], [place] [address] Nov, [facility] [id number], [place] [address] 5869 October, Diabetes type 2, controlled E11.9 and Acute cystitis without hematuria N30.00 [facility] [id number], [place] [address] 7[address] October, [facility] [address], [place] [address] 39[address] October, [facility] [id number] [place] [address] 06102- 9858 October, [facility] [id number] [place] [address] 86116- 1289 October, Other chronic pain G89.29 [facility] [id number] [place] [address] 97510- 9253 Sep, Diabetes type 2, controlled E11.9 [facility] [id number] [place] [address] 90297- 1218 Sep, [facility] [id number] [place] [address] 37007- 7148 Sep, Diabetes type 2, controlled E11.9 [facility] [id number] [place] [address] 51372- 0102 Sep, Other chronic pain G89.29 [facility] [address], [place] [address] 4275 Sep, Other iron deficiency anemia D50.8 [facility] [address], [place] [address]- 0593 Sep, Other iron deficiency anemia D50.8 [facility] [id number] [place] [address] 23378- 3321 Sep, Iron deficiency anemia due to chronic blood loss D50.0 and Dysuria R30.0 [facility] [address], [place] [address]- 8241 Sep, Dysuria R30.0 [facility] [address], [place] [address]- 8290 Sep, Iron deficiency anemia due to chronic blood loss D50.0 [facility] [id number] [place] [address] 81688- 6871 Sep, [facility] [id number] [place] [address] 18825- 0569 Sep, Controlled type 2 diabetes mellitus without complication, without long-term current use of insulin E11.9 ; Leg cramps R25.2 ; Low back pain M54.5 and Other chronic pain G89.29 [facility] [id number] [place] [address] 77677- 6307 Sep, Controlled type 2 diabetes mellitus without complication, without long-term current use of insulin E11.9 ; Low back pain M54.5 ; Other chronic pain G89.29 and Leg cramps R25.2 [facility] [id number] [place] [address] 09118- 0764 Aug, Other chronic pain G89.29 [facility] [id number] [place] [address] 08704- 5751 Jul, Other chronic pain G89.29 [facility] [id number] [place] [address] 49373- 9190 16 Jul, 2017 Pneumonia of left lower lobe due to infectious organism J18.1 [facility] [address], [place] [address] 12 Jul, 2017 Dysuria R30.0 ; Cough in adult patient R05 and Pneumonia of left lower lobe due to infectious organism J18.1 [facility] [id number] [place] [address] 56100- 4857 08 Jul, 2017 [facility] [id number] [place] [address] 54349- 4641 Jun, Other chronic pain G89.29 [facility] [id number] [place] [address] 74774- 7169 Jun, [facility] [address], [place] [address]- 3157 Jun, Diabetes type 2, controlled E11.9 ; Back muscle spasm M62.830 and Other chronic pain G89.29 [facility] [address], [place] [address]- 0775 Jun, Screening breast examination Z12.31 [facility] [id number] [place] [address] 77370- 6401 May, Other chronic pain G89.29 [facility] [id number] [place] [address] 92588- 3261 May, [facility] [id number] [place] [address] 66386- 6570 May, UTI (urinary tract infection) N39.0 [facility] [id number] [place] [address] 65174- 2053 May, Dysuria R30.0 [facility] [address] [place] [address] 30701- 3572 May, Dysuria R30.0 [facility] [address] [place] [address] 43101- 2308 04 May, 2017 Diabetes type 2, controlled E11.9 ; 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 and Other chronic pain G89.29 [facility] [address] [place] [address] 47750- 8043 Apr, Diabetes type 2, controlled E11.9 [facility] [address] [place] [address] 59240 -9579 Mar, Paronychia of great toe, right L03.031 and Dysuria R30.0 [facility] [address], [place] [address]- 8897 Mar, Diabetes type 2, controlled E11.9 [facility] [id number], [place] [address]- 6489 28 Feb, 2017 Diabetes type 2, controlled E11.9 [facility] [address] [id number] [address] 13 Feb, 2017 Dental examination Z01.20 [facility] [address], [place] [address]- 3850 11 Feb, 2017 Diabetes type 2, controlled E11.9 [facility] [address], [place] [address]- 5937 07 Feb, 2017 Diabetes type 2, controlled E11.9 [facility] [address], [place] [address]- 4488 14 Jan, 2017 Diabetes type 2, controlled E11.9 [facility] [address], [place] [address]- 5193 24 Dec, 2016 Diabetes type 2, controlled E11.9 [facility] [address], [place] [address]- 1319 Dec, Diabetes type 2, controlled E11.9 [facility] [address], [place] [address]- 8203 30 Nov, 2016 Diabetes type 2, controlled E11.9 [facility] [address], [place] [address]- 6764 Nov, Diabetes type 2, controlled E11.9 [facility] [address], [place] [address]- 5631 27 Nov, 2016 Diabetes type 2, controlled E11.9 [facility] [address], [place] [address]- 7589 19 Nov, 2016 Diabetes type 2, controlled E11.9 [facility] [address], [place] [address]- 4801 14 Nov, 2016 Diabetes type 2, controlled E11.9 [facility] [address], [place] [address]- 8619 Nov, Diabetes type 2, controlled E11.9 [facility] [address], [place] [address]- 5342 October, Pain in unspecified shoulder M25.519 [facility] [id number] [place] [address] 98952- 5379 October, Diabetes type 2, controlled E11.9 and Cellulitis of right lower extremity L03.115 [facility] [id number] [place] [address] 10770- 9159 October, Pain in unspecified shoulder M25.519 [facility] [id number] [place] [address] 03513- 9894 Sep, Diabetes type 2, controlled E11.9 [facility] [id number] [place] [address] 57512- 9956 Aug, Pain in unspecified shoulder M25.519 [facility] [id number] [place] [address] 10691- 0600 Aug, Diabetes type 2, controlled E11.9 [facility] [id number] [place] [address] 24050- 5677 Aug, Diabetes type 2, controlled E11.9 ; Dark urine R82.99 and Localized edema R60.0 [facility] [id number] [place] [address] 51066- 7289 Aug, Pain in unspecified shoulder M25.519 [facility] [id number] [place] [address] 72414- 8224 Jul, Pain in unspecified shoulder M25.519 [facility] [id number] [place] [address] 77963- 2299 Jul, [facility] [id number] [place] [address] 01688- 2970 Jul, Diabetes type 2, controlled E11.9 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 [facility] [id number] [place] [address] 21104- 0638 Jun, Diabetes type 2, controlled E11.9 [facility] [id number] [place] [address] 59222- 1297 Jun, Screening breast examination Z12.39 and Allergic rhinitis, unspecified allergic rhinitis trigger, unspecified rhinitis seasonality J30.9 [facility] [id number] [place] [address] 84218- 4769 Jun, Pain in unspecified shoulder M25.519 [facility] [address] 64877- 8841 May, [facility] [address] 70109- 3408 May, Pain in unspecified shoulder M25.519 [facility] [address] 74173- 2519 05 May, 2016 Thoracogenic scoliosis of thoracolumbar region M41.35 ; Low back pain M54.5 ; Other chronic pain G89.29 and Uncontrolled type 2 diabetes mellitus without complication, without long-term current use of insulin E11.65 [facility] [id number] [place] [address] 62869- 7468 Apr, [facility] [id number] [place] [address] 36906- 8414 Apr, [facility] [id number] [place] [address] 15560- 8515 04 Apr, 2016 History of type 2 diabetes mellitus Z86.39 and Encounter for immunization Z23 [facility] [id number] [place] [address] 74726- 7681 Mar, [facility] [id number] [place] [address] 87752- 0341 Mar, [facility] [id number] [place] [address] 93897- 9784 Feb, [facility] [id number] [place] [address] 44527- 9367 Jan, [facility] [address] [facility] [id number] [address]- 3548 Jan, [facility] [id number], [place] [address]- 1979 Dec, [facility] [id number], [place] [address] -[address]45 Dec, Sore throat J02.9 and Allergic rhinitis, unspecified allergic rhinitis type J30.9 [facility] [address] [facility] [id number], [place] [address]- 8602 Dec, Diabetes type 2, controlled E11.9 [facility] [address] [facility] [id number], [place] [address]- 9234 Nov, [facility] [address], [place] [address]- 0915 Nov, [facility] [address], [place] [address]- 1520 October, [facility] [address], [place] [address]- 4314 October, [facility] [id number], [place] [address]- 3689 Sep, [facility] [id number], [place] [address]- 5887 Aug, [facility] [id number], [place] [address]- 9688 Aug, Diabetes type 2, controlled E11.9 ; UTI (urinary tract infection) N39.0 and Bacterial infection A49.9 [facility] [id number], [place] [address]- 7612 Jul, [facility] [id number], [place] [address]- 4625 Jul, [facility] [id number] [place] [address] 46090- 2933 Jul, Pharyngitis J02.9 and Seborrheic keratoses L82.1 [facility] [id number] [place] [address] 02144- 8193 Jun, [facility] [id number] [place] [address] 79040- 6655 May, [facility] [address] 67099- 3448 May, Skin tags, multiple acquired L91.8 ; Seborrheic keratoses L82.1 and Diabetes type 2, controlled E11.9 [facility] [address] 26731- 9269 May, Well woman exam Z01.419 ; Papanicolaou [...] Other fatigue R53.83 and Other hemorrhoids K64.8 [facility] [id number] [place] [address] 55030- 5580 15 May, 2015 [facility] [id number] [place] [address] 33067- 0628 May, [facility] [id number] [place] [address] 40502- 7032 Apr, Seborrheic keratosis L82.1 and Diabetes type 2, controlled E11.9 [facility] [id number] [place] [address] 70281- 6730 Apr, Seborrheic keratosis L82.1 and Diabetes type 2, controlled E11.9 [facility] [id number] [place] [address] 18464- 0817 Mar, [facility] [address] 26787- 7385 Mar, [facility] [address] 94338- 4122 Mar, Nevoid hyperpigmentation L81.9 ; Encounter for immunization Z23 ; Skin tags, multiple acquired L91.8 and Seborrheic keratoses L82.1 [facility] [address] 13387- 1719 Feb, [facility] [address] 05247- 7593 Feb, [facility] [address] 59459- 1880 Feb, [facility] [address] 26422- 6556 Feb, Diabetes 250.00 ; Tinea corporis 110.5 and Shoulder pain, left 719.41 [facility] [address] 08600- 6156 Jan, [facility] [id number] [place] [address] 84616- 5351 Dec, [facility] [id number] [place] [address] 78351- 9680 Dec, [facility] [address] 53449- 2135 Dec, Seborrheic keratoses 702.19 ; Diabetes 250.00 and Hypoglycemia 251.2 [facility] [address] 78688- 1777 Nov, [facility] [address] 34653- 8086 Nov, Abnormal mammogram 793.80 [facility] [address] [place] [address]- 6910 October, Diabetes 250.00 and Colon polyp 211.3 [facility] [address] [id number] [place] [address]- 7995 Sep, [facility] [address] [id number] [place] [address]- 4534 Sep, [facility] [address] [id number] [place] [address], [place] [address]- 1053 Sep, [facility] [address] [id number] [place] [address]- 2446 Aug, [facility] [address] [id number] [place] [address], [place] [address]- 8619 Aug, [facility] [address] [place] [address]- 6107 Jul, [facility] [address] [place] [address]- 7797 Jul, [facility] [id number] [place] [address]- 6394 Jun, [facility] [address] [place] [address]- 3381 Jun, [facility] [address] [place] [address]- 8837 Jun, [facility] [id number], [place] [address]- 1150 Jun, [facility] [id number] [place] [address]- 1197 Jun, [facility] [address] [place] [address]- 0932 Jun, [facility] [address] [facility] [id number] [place] [address]- 3022 May, [facility] [address], [place] [address]- 8175 May, [facility] [place] [facility] [address] [id number] [place] [address]- 8652 Apr, [facility] [place] [facility] [address] [id number] [place] [address]- 3969 Apr, [facility] [place] [facility] [address] [id number] [place] [address]- 7152 Apr, [facility] [place] [facility] [address] [id number] [place] [address]- 4554 Apr, [facility] [place] [facility] [address] [id number] [place] [address]- 9331 Apr, [facility] [place] [facility] [address] [id number] [place] [address]- 3960 Apr, [facility] [place] [facility] [address] [id number] [place] [address]- 1094 Apr, [facility] [place] [facility] [address] [id number], [place] [address]- 5910 Apr, [facility] [place] [facility] [address] [id number], [place] [address]- 3698 Apr, [facility] [place] [facility] [address] [id number], [place] [address]- 0338 Apr, [facility] [place] [facility] [address] [id number], [place] [address]- 3964 Mar, [facility] [place] [facility] [address] [id number], [place] [address]- 4168 Mar, [facility] [place] [facility] [address] [id number], [place] [address]- 0646 Mar, [facility] [place] [facility] [address] [id number], [place] [address]- 6823 Mar, [facility] [place] [facility] [address] [id number], [place] [address]- 7080 Mar, [facility] [place] [facility] [address] [id number] [place] [address]- 4266 Mar, [facility] [place] [facility] [address] [id number] [place] [address]- 1043 Mar, [facility] [place] [facility] [address] [id number] [place] [address]- 6388 Mar, [facility] [place] [facility] [address] [id number] [place] [address]- 6201 Feb, [facility] [place] [facility] [address] [id number] [place] [address]- 4843 Feb, [facility] [place] [facility] [address] [id number] [place] [address]- 3957 Feb, [facility] [place] [facility] [address] [id number] [place] [address]- 5314 Feb, [facility] [place] [facility] [address] [id number] [place] [address]- 5543 Jan, [facility] [place] [facility] [address] [id number] [place] [address]- 2811 Jan, [facility] [place] [facility] [address] [id number] [place] [address]- 3658 Dec, [facility] [place] [facility] [address] [id number] [place] [address]- 9232 Dec, [facility] [place] [facility] [address] [id number] [place] [address]- 4233 Nov, [facility] [place] [facility] [address] [id number] [place] [address]- 2187 Nov, [facility] [place] [facility] [address] [id number] [place] [address]- 4681 Nov, [facility] [place] [facility] [address] [id number] [place] [address]- 3544 Nov, [facility] [place] [facility] [address] [id number] [place] [address]- 8026 October, [facility] [address] [id number] [place] [address]- 2355 October, [facility] [place] [facility] [address] [id number] [place] [address]- 8842 October, [facility] [place] [facility] [address] [id number] [place] [address]- 7651 October, [facility] [place] [facility] [address] [id number] [place] [address]- 5585 October, [facility] [place] [facility] [address] [id number] [place] [address]- 7610 October, [facility] [place] [facility] [address] [id number] [place] [address]- 7992 October, [facility] [place] [facility] [address] [id number] [place] [address]- 5828 October, [facility] [place] [facility] [address] [id number] [place] [address]- 1835 Aug, [facility] [place] [facility] [address] [id number] [place] [address]- 7071 Aug, [facility] [place] [facility] [address] [id number] [place] [address]- 2202 Jul, [facility] [place] [facility] [address] [id number] [place] [address]- 3069 Jul, [facility] [place] [facility] [address] [id number] [place] [address]- 2398 Jul, [facility] [place] [facility] [address] [id number] [place] [address]- 1528 Jul, [facility] [place] [facility] [address] [id number] [place] [address]- 4794 Jul, [facility] [place] [facility] [address] [id number] [place] [address] 2018 Jun, [facility] [place] [facility] [address] [id number] [place] [address] Jun, [facility] [address] [id number] [place] [address] May, [facility] [place] [facility] [address] [id number] [place] [address] May, [facility] [place] [facility] [address] [id number] [place] [address] Apr, [facility] [place] [facility] [address] [id number] [place] [address] Apr, [facility] [place] [facility] [address] [id number] [place] [address] Mar, [facility] [place] [facility] [address] [id number] [place] [address] Mar, [facility] [place] [facility] [address] [id number] [place] [address] Mar, [facility] [place] [facility] [address] [id number] [place] [address] Feb, [facility] [place] [facility] [address] [id number] [place] [address] Feb, [facility] [place] [facility] [address] [facility] [id number] [place] [address] 17 Feb, 2013 [facility] [place] [facility] [address] [id number] [place] [address] Feb, [facility] [place] [facility] [address] [id number] [place] [address] Feb, [facility] [place] [facility] [address] [id number] [place] [address] Jan, [facility] [place] [facility] [address] [id number] [place] [address] Dec, [facility] [place] [facility] [address] [id number] [place] [address] Nov, [facility] [place] [facility] [address] [id number] [place] [address] October, [facility] [address] [id number] [place] [address] Sep, [facility] [place] [facility] [address] [id number] [place] [address] Aug, [facility] [address] [id number] [place] [address] Aug, [facility] [address] [id number] [place] [address] 18 Aug, 2012 [facility] [address] [id number] [place] [address] May, [facility] [address] [id number] [place] [address] 12 May, 2012 [facility] [address] [id number] [place] [address] 12 May, 2012 [facility] [address] [id number] [place] [address] May, [facility] [address] [id number] [place] [address] May, [facility] [facility] [address] [id number] [place] [address] 16 Apr, 2012 [facility] [place] [facility] [address] [id number] [place] [address] 16 Apr, 2012 [facility] [place] [facility] [address] [id number] [place] [address] 14 Apr, 2012 [facility] [place] [facility] [address] [id number] [place] [address] 14 Apr, 2012 [facility] [place] [facility] [address] [id number] [place] [address] 07 Apr, 2012 [facility] [place] [facility] [address] [id number] [place] [address] Apr, [facility] [place] [facility] [address] [id number] [place] [address] Apr, [facility] [place] [facility] [address] [id number] [place] [address] Apr, [facility] [place] [facility] [address] [id number] [place] [address] Mar, [facility] [place] [facility] [address] [id number] [place] [address] Mar, [facility] [place] [facility] [address] [id number] [place] [address] Mar, [facility] [place] [facility] [address] [id number] [place] [address] Mar, [facility] [place] [facility] [address] [id number] [place] [address] Mar, [facility] [place] [facility] [address] [id number] [place] [address] Mar, [facility] [place] [facility] [address] [id number] [place] [address] Mar, [facility] [place] [facility] [address] [id number] [place] [address] Feb, [facility] [place] [facility] [address] [id number] [place] [address]65 24 Feb, 2012 [facility] [place] [facility] [address] [id number] [place] [address] 20 Feb, 2012 [facility] [place] [facility] [address] [id number] [place] [address] Feb, [facility] [place] [facility] [address] [id number] [place] [address] Jan, [facility] [place] [facility] [address] [id number] [place] [address] Jan, [facility] [place] [facility] [address] [id number] [place] [address] 17 Jan, 2012 [facility] [place] [facility] [address] [id number] [place] [address] 15 Jan, 2012 [facility] [place] [facility] [address] [id number] [place] [address] Jan, [facility] [address] [id number] [place] [address] Jan, [facility] [place] [facility] [address] [id number] [place] [address] Dec, [facility] [place] [facility] [address] [id number] [place] [address] Dec, [facility] [place] [facility] [address] [id number] [place] [address] 0467 Dec, [facility] [place] [facility] [address] [id number] [place] [address] Dec, [facility] [address] [id number] [place] [address] Dec, [facility] [place] [facility] [address] [id number] [place] [address] Dec, [facility] [address] [id number] [place] [address] Dec, [facility] [place] [facility] [address] [id number] [place] [address] Dec, [facility] [place] [facility] [address] [id number] [place] [address] 3769 Nov, [facility] [place] [facility] [address] [id number] [place] [address] Nov, [facility] [place] [facility] [address] [id number] [place] [address] Nov, [facility] [place] [facility] [address] [id number] [place] [address] Nov, [facility] [address] [id number] [place] [address] 76[address] October, [facility] [place] [facility] [address] [id number] [place] [address] October, [facility] [place] [facility] [address] [id number] [place] [address] 9393 Sep, [facility] [place] [facility] [address] [id number] [place] [address] 6527 Sep, [facility] [place] [facility] [address] [id number] [place] [address]- 8675 Aug, [facility] [place] [facility] [address] [id number] [place] [address] 16 Aug, 2011 [facility] [place] [facility] [address] [id number] [place] [address] Aug, [facility] [place] [facility] [address] [id number] [place] [address] 4397 Aug, [facility] [place] [facility] [address] [id number] [place] [address] 1387 Aug, [facility] [place] [facility] [address] [id number] [place] [address]694 Jul, [facility] [place] [facility] [address] [id number] [place] [address] Jul, [facility] [place] [facility] [address] [id number] [place] [address] 9516 Jul, [facility] [place] [facility] [address] [id number] [place] [address]- [address] Jul, [facility] [place] [facility] [address] [id number] [place] [address] Jun, [facility] [place] [facility] [address] [id number] [place] [address]- [address] Jun, [facility] [place] [facility] [address] [id number] [place] [address]- 9541 05 Jun, 2011 [facility] [address] [id number] [place] [address] 8822 Jun, [facility] [place] [facility] [address] [id number] [place] [address] 7170 Jun, [facility] [address] [id number] [place] [address]- [address] May, [facility] [place] [facility] [address] [id number] [place] [address] 5828 May, [facility] [address] [id number] [place] [address]39 May, [facility] [place] [facility] [address] [id number] [place] [address] 299[address] May, [facility] [address] [id number] [place] [address] 3546 May, [facility] [place] [facility] [address] [id number] [place] [address] May, [facility] [place] [facility] [address] [id number] [place] [address] 4747 Apr, [facility] [address] [facility] [id number] [place] [address] 9730 Apr, [facility] [place] [facility] [address] [id number] [place] [address] 9609 Mar, [facility] [place] [facility] [address] [id number] [place] [address] 0423 Mar, [facility] [place] [facility] [address] [id number] [place] [address] 9450 October, [facility] [place] [facility] [address] [id number] [place] [address] 8076 May, [facility] [place] [facility] [address] [id number], [place] [address] Apr, [facility] [address] [id number] [address] Jul, [facility] [address] [id number] [address] 279[address] May, [facility] [address] [id number], [place] [address] May, [facility] [id number], [place] [address] May, [facility] [address] [id number], [place] [address] 29[address] Apr, [facility] [id number], [place] [address] Apr, [facility] [id number], [place] [address] Mar, [facility] [id number], [place] [address] Jan, [facility] [address] [id number], [place] [address] Nov, IMMUNIZATIONS No Known Immunizations SOCIAL HISTORY Never Assessed REASON FOR VISIT Controlled Med Refill 08/08/17 PLAN OF CARE VITAL SIGNS MEDICATIONS Medication Instructions Dosage Frequency Start Date End Date Duration Status [place] 7.5-325 MG Orally 3 times a day [...]
--- OUTSIDE RECORDS SUMMARY | 2018-02-19 21:38 | XMS REPORT ---
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 Name Role Phone JIM THOMAS Unavailable PROBLEMS Type Condition ICD9-CM Code IJJ02-OD Code Onset Dates Condition Status SNOMED Code Problem History of abnormal cervical Pap smear Z87.898 Active 294062470 Problem Thoracogenic scoliosis of thoracolumbar region M41.35 Active 62518415 Problem Uncontrolled type 2 diabetes mellitus without complication, without long-term current use of insulin E11.65 Active 897966985 Problem Diabetes type 2, controlled E11.9 Active 18738003 Problem Thyroid nodule E04.1 Active 719288754 Problem History of colon polyps Z86.010 Active 497301409 Problem Other iron deficiency anemia D50.8 Active 88998565 Problem Iron deficiency anemia due to chronic blood loss D50.0 Active 264089478 Problem Screening breast examination Z12.39 Active 809216631 Problem Allergic rhinitis, unspecified allergic rhinitis trigger, unspecified rhinitis seasonality J30.9 Active 70516735 Problem Controlled type 2 diabetes mellitus without complication, without long -term current use of insulin E11.9 Active 847995647 Problem Other chronic pain G89.29 Active 25956533 ALLERGIES No Information ENCOUNTERS Encounter Location Date Diagnosis [facility] [address] [id number] [address] Dec, [facility] [id number] [place] [address] 82209- 3854 Nov, Other chronic pain G89.29 [facility] [address] [place] [address] 68152- 6375 Nov, [facility] [id number] [address] Nov, [facility] [address] [address] 8[address] October, Diabetes type 2, controlled E11.9 and Acute cystitis without hematuria N30.00 [facility] [address], [place] [address] October, [facility] [address] [address] October, [facility] [address], [place] [address] 76[address] October, [facility] [address] [place] [address] 14571- 1252 October, Other chronic pain G89.29 [facility] [address] [address] 7267 Sep, Diabetes type 2, controlled E11.9 [facility] [address] [address] 87[address] Sep, [facility] [address] [address]- 2459 Sep, Diabetes type 2, controlled E11.9 [facility] [address] [address] 2781 Sep, Other chronic pain G89.29 [facility] [address] [address] 2001 Sep, Other iron deficiency anemia D50.8 [facility] [address] [address]- 2970 Sep, Other iron deficiency anemia D50.8 [facility] [id number] [address]- 0375 Sep, Iron deficiency anemia due to chronic blood loss D50.[address] [facility] [address] [address]- 5270 Sep, D[address]uria R30.0 [facility] [address] [address]- 9721 Sep, Iron deficiency anemia due to chronic blood loss D50.0 [facility] [address] [place] [address] 37419- 0370 Sep, [facility] [id number] [place] [address] 62831- 7332 Sep, Controlled type 2 diabetes mellitus without complication, without long-term current use of insulin E11.9 ; Leg cramps R25.2 ; Low back pain M54.5 and Other chronic pain G89.29 [facility] [address] [place] [address] 90767- 4214 Sep, Controlled type 2 diabetes mellitus without complication, without long-term current use of insulin E11.9 ; Low back pain M54.5 ; Other chronic pain G89.29 and Leg cramps R25.2 [facility] [address] [place] [address] 62812- 5679 Aug, Other chronic pain G89.29 [facility] [id number] [place] [address] 34446- 7845 Jul, Other chronic pain G89.29 [facility] [address] [place] [address] 53223- 2652 16 Jul, 2017 Pneumonia of left lower lobe due to infectious organism J18.1 [facility] [address] [place] [address] 80453 -9680 12 Jul, 2017 Dysuria R30.0 ; Cough in adult patient R05 and Pneumonia of left lower lobe due to infectious organism J18.1 [facility] [address] [place] [address] 59381- 7741 08 Jul, 2017 [facility] [address] [place] [address] 54312- 6511 Jun, Other chronic pain G89.29 [facility] [id number] [address]- 7[address] Jun, [facility] [id number] [place] [address] 74481- 2605 Jun, Diabetes type 2, controlled E11.9 ; Back muscle spasm M62.830 and Other chronic pain G89.29 [facility] [id number] [place] [address] 22799- 8410 Jun, Screening breast examination Z12.31 [facility] [id number] [place] [address] 99497- 7677 May, Other chronic pain G89.29 [facility] [id number] [place] [address] 41425- 4098 May, [facility] [id number] [place] [address] 84641- 2942 May, UTI (urinary tract infection) N39.0 [facility] [id number] [place] [address] 76558- 0046 May, Dysuria R30.0 [place] [id number] [place] [address] 64041- 5061 May, D[address]uria R30.0 [facility] [address] [place] [address] 48505- 4322 May, Diabetes type 2, controlled E11.9 ; alf current use of 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 Z79.891 and Other chronic pain G89.29 [facility] [address] [place] [address] 00507- 5883 Apr, Diabetes type 2, controlled E11.9 [facility] [id number] [place] [address] 89912 -7664 Mar, Paronychia of great toe, right L03.[address] [facility] [address] [place] [address] 06151- 6630 Mar, Diabetes type 2, controlled E11.9 [facility] [address] [facility] [id number] [address] 2[address] 28 Feb, 2017 Diabetes type 2, controlled E11.9 [facility] [address] [facility] [id number] [address] 13 Feb, [address]20 [facility] [address] [address]- 4580 11 Feb, 2017 Diabetes type 2, controlled E11.9 [facility] [id number] [address]- 2099 07 Feb, 2017 Diabetes type 2, controlled E11.9 [facility] [address] [address] 1975 14 Jan, 2017 Diabetes type 2, controlled E11.9 [facility] [address] [address]- 9114 24 Dec, 2016 Diabetes type 2, controlled E11.9 [facility] [address] [address]- 2497 Dec, Diabetes type 2, controlled E11.9 [facility] [address], [place] [address]- 1610 30 Nov, 2016 Diabetes type 2, controlled E11.9 [facility] [address] [address]- 0414 Nov, Diabetes type 2, controlled E11.9 [facility] [address] [address]- 1910 Nov, Diabetes type 2, controlled E11.9 [facility] [address], [place] [address]- 6695 19 Nov, 2016 Diabetes type 2, controlled E11.9 [facility] [address] [address]- 3349 14 Nov, 2016 Diabetes type 2, controlled E11.9 [facility] [address] [address]- 8118 Nov, Diabetes type 2, controlled E11.9 [facility] [id number] [place] [address] 14570- 7339 October, Pain in unspecified shoulder M25.519 [facility] [id number] [place] [address] 42287- 9133 October, Diabetes type 2, controlled E11.9 and Cellulitis of right lower extremity L03.115 [place] [id number] [place] [address] 10201- 6754 October, Pain in unspecified shoulder M25.519 [place] [facility] [id number] [place] [address] 65351- 4575 Sep, Diabetes type 2, controlled E11.9 [place] [id number] [place] [address] 94431- 4448 Aug, Pain in unspecified shoulder M25.519 [place] [id number] [place] [address] 53446- 6095 Aug, Diabetes type 2, controlled E11.9 [place] [id number] [place] [address] 61764- 4533 Aug, Diabetes type 2, controlled E11.9 ; Dark urine R82.99 and Localized edema R60.0 [place] [place] [id number] [place] [address] 09201- 7370 Aug, Pain in unspecified shoulder M25.519 [facility] [id number] [place] [address] 51841- 9597 Jul, Pain in unspecified shoulder M25.519 [place] [id number] [place] [address] 06690- 1091 Jul, [place] [id number] [place] [address] 87814- 1230 Jul, Diabetes type 2, controlled E11.9 and alf current use of 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 Z79.891 [place] [id number] [place] [address] 77494- 3155 Jun, Diabetes type 2, controlled E11.9 [place] [address] 50404- 0282 18 Jun, 2016 Screening breast examination Z12.39 and Allergic rhinitis, unspecified allergic rhinitis trigger, unspecified rhinitis seasonality J30.9 [place] [address] 56192- 8706 10 Jun, 2016 Pain in unspecified shoulder M25.519 [address] [place] [address] 50099- 2064 May, [place] [address] 07989- 8274 May, Pain in unspecified shoulder M25.519 [address] 69418- 9265 May, Thoracogenic scoliosis of thoracolumbar region M41.35 ; Low back pain M54.5 ; Other chronic pain G89.29 and Uncontrolled type 2 diabetes mellitus without complication, without long-term current use of insulin E11.65 [address] 87873- 8922 Apr, [place] [address] 93112- 0012 Apr, [place] [address] 38587- 1167 04 Apr, 2016 History of type 2 diabetes mellitus Z86.39 and Encounter for immunization Z23 [address] 35114- 8204 Mar, [place] [address] 65355- 7838 Mar, [place] [id number] [place] [address] 41720- 8615 Feb, [place] [address] [facility] [id number] [address]- 2459 Jan, [facility] [address] [facility] [id number] [address] 1989 Jan, [facility] [address] [facility] [id number] [address]- 2217 Dec, [facility] [address] [facility] [id number] [address] -[address]17 Dec, Sore throat J02.9 and Allergic rhinitis, unspecified allergic rhinitis type J30.9 [facility] [address] [facility] [id number], [place] [address]- 6819 Dec, Diabetes type 2, controlled E11.9 [facility] [address] [facility] [id number], [place] [address]- 8557 Nov, [facility] [address], [place] [address]- 2148 Nov, [facility] [address] [facility] [id number], [place] [address]- [address]189 October, [facility] [id number], [place] [address]- 5989 October, [facility] [id number], [place] [address]- 5673 Sep, [facility] [id number], [place] [address]- 1107 Aug, [facility] [address] [facility] [id number], [place] [address]- 8017 Aug, Diabetes type 2, controlled E11.9 ; UTI (urinary tract infection) N39.0 and Bacterial infection A49.9 [facility] [address] [facility] [id number], [place] [address]- 8704 Jul, [facility] [address] [facility] [id number] [address]- 3457 Jul, [place] [address] [place] [address] 44495- 4476 Jul, Pharyngitis J02.9 and Seborrheic keratoses L82.1 [place] [id number] [place] [address] 05537- 7628 Jun, [place] [id number] [place] [address] 55657- 7549 May, [place] [id number] [place] [address] 16093- 9886 May, Skin tags, multiple acquired L91.8 ; Seborrheic keratoses L82.1 and Diabetes type 2, controlled E11.9 [place] [id number] [place] [address] 35573- 9318 May, Well woman exam Z01.419 ; Papanicolaou [...] Other fatigue R53.83 and Other hemorrhoids K64.8 [place] [address] [place] [address] 20201- 2669 May, [place] [id number] [place] [address] 10951- 6288 May, [place] [id number] [place] [address] 32392- 7158 Apr, Seborrheic keratosis L82.1 and Diabetes type 2, controlled E11.9 [place] [address] [place] [address] 81494- 5493 Apr, Seborrheic keratosis L82.1 and Diabetes type 2, controlled E11.9 [place] [id number] [place] [address] 84739- 3399 Mar, [facility] [id number] [place] [address] 81789- 5596 Mar, [facility] [id number] [place] [address] 08946- 7689 Mar, Nevoid hyperpigmentation L81.9 ; Encounter for immunization Z23 ; Skin tags, multiple acquired L91.8 and Seborrheic keratoses L82.1 [facility] [id number] [place] [address] 57917- 4444 Feb, [facility] [id number] [place] [address] 92630- 2532 Feb, [facility] [id number] [place] [address] 44319- 9557 Feb, [facility] [id number] [place] [address] 35179- 8753 Feb, Diabetes 250.00 ; Tinea corporis 110.5 and Shoulder pain, left 719.41 [facility] [id number] [place] [address] 15759- 5695 Jan, [facility] [id number] [place] [address] 15414- 9030 Dec, [facility] [id number] [place] [address] 91948- 6770 Dec, [facility] [id number] [place] [address] 54030- 5058 Dec, Seborrheic keratoses 702.19 ; Diabetes 250.[address] [facility] [id number] [place] [address] 52293- 6971 Nov, [facility] [id number] [place] [address] 33343- 8787 Nov, Abnormal mammogram 793.80 [facility] [address] [id number] [place] [address]- 0130 October, Diabetes 250.00 and Colon polyp 211.3 [facility] [address] [facility] [id number] [place] [address]- 6489 Sep, [facility] [id number] [place] [address]- 3754 Sep, [facility] [address] [facility] [id number] [place] [address]- 8257 Sep, [facility] [address] [facility] [id number] [place] [address]- 5108 Aug, [facility] [id number] [place] [address]- 7040 Aug, [facility] [address] [place] [address]- 3059 Jul, [facility] [id number] [place] [address]- 6214 Jul, [facility] [id number] [place] [address]- 5537 Jun, [facility] [id number] [place] [address]- 5754 Jun, [facility] [id number] [address]- 2584 Jun, [facility] [address] [facility] [id number], [place] [address]- 8389 Jun, [facility] [id number] [place] [address]- 8053 Jun, [facility] [id number] [address]- 5759 Jun, [facility] [id number] [place] [address]- 2716 May, [facility] [address] [facility] [id number] [place] [address]- 3027 May, [facility] [place] [facility] [address] [id number] [place] [address]- 8502 Apr, [facility] [place] [facility] [address] [id number] [place] [address]- 2091 Apr, [facility] [place] [facility] [address] [id number] [place] [address]- 2118 Apr, [facility] [place] [facility] [address] [id number] [place] [address]- 8769 Apr, [facility] [place] [facility] [address] [id number] [place] [address]- 7390 Apr, [facility] [place] [facility] [address] [id number] [place] [address]- 7436 Apr, [facility] [place] [facility] [address] [id number] [place] [address]- 3872 Apr, [facility] [place] [facility] [address] [id number] [place] [address]- 3160 Apr, [facility] [place] [facility] [address] [facility] [id number] [place] [address]- 3699 Apr, [facility] [place] [facility] [address] [facility] [id number] [place] [address]- 7539 Apr, [facility] [place] [facility] [address] [id number] [place] [address]- 5417 Mar, [facility] [place] [facility] [address] [id number] [place] [address]- 9687 Mar, [facility] [place] [facility] [address] [id number] [place] [address]- 8946 Mar, [facility] [place] [facility] [address] [id number] [place] [address]- 6785 Mar, [facility] [place] [facility] [address] [id number] [place] [address]- 8491 Mar, [facility] [place] [facility] [address] [id number] [place] [address]- 0150 Mar, [facility] [place] [facility] [address] [id number] [place] [address]- 2404 Mar, [facility] [place] [facility] [address] [id number] [place] [address]- 2294 Mar, [facility] [place] [facility] [address] [id number] [place] [address]- 6822 Feb, [facility] [place] [facility] [address] [id number] [place] [address]- 9338 Feb, [facility] [place] [facility] [address] [id number] [place] [address]- 5864 Feb, [facility] [place] [facility] [address] [id number] [place] [address]- 1801 Feb, [facility] [place] [facility] [address] [id number] [place] [address]- 9783 Jan, [facility] [place] [facility] [address] [id number] [place] [address]- 4637 Jan, [facility] [place] [facility] [address] [id number][place] [address]- 8384 Dec, [facility] [place] [facility] [address] [id number][place] [address]- 8911 Dec, [facility] [place] [facility] [address] [id number], [place] [address]- 6936 Nov, [facility] [place] [facility] [address] [id number] [place] [address]- 9532 Nov, [facility] [place] [facility] [address] [id number] [place] [address]- 2459 Nov, [facility] [place] [facility] [address] [id number][place] [address]- 8557 Nov, [facility] [place] [facility] [address] [id number], [place] [address]- 3604 October, [facility] [address] [id number] [place] [address]- 9687 October, [facility] [place] [facility] [address] [id number] [place] [address]- 5484 October, [facility] [place] [facility] [address] [id number] [place] [address]- 8530 October, [facility] [place] [facility] [address] [id number] [place] [address]- 4193 October, [facility] [place] [facility] [address] [id number] [place] [address] October, [facility] [place] [facility] [address] [id number] [place] [address] October, [facility] [place] [facility] [address] [id number] [place] [address] October, [facility] [place] [facility] [address] [id number] [place] [address] Aug, [facility] [place] [facility] [address] [id number] [place] [address] Aug, [facility] [place] [facility] [address] [id number] [place] [address] Jul, [facility] [place] [facility] [address] [id number] [place] [address] Jul, [facility] [place] [facility] [address] [id number] [place] [address] Jul, [facility] [place] [facility] [address] [id number] [place] [address] Jul, [facility] [place] [facility] [address] [id number] [place] [address] Jul, [facility] [place] [facility] [address] [id number] [place] [address] Jun, [facility] [place] [facility] [address] [id number] [place] [address] Jun, [facility] [place] [facility] [address] [id number] [place] [address] May, [facility] [place] [facility] [address] [id number] [place] [address] May, [facility] [place] [facility] [address] [id number] [place] [address] Apr, [facility] [place] [facility] [address] [id number] [place] [address] Apr, [facility] [place] [facility] [address] [id number] [place] [address] Mar, [facility] [address] [id number] [place] [address] Mar, [facility] [place] [facility] [address] [id number] [place] [address] Mar, [facility] [place] [facility] [address] [id number] [place] [address] Feb, [facility] [place] [facility] [address] [id number] [place] [address] Feb, [facility] [place] [facility] [address] [id number] [place] [address] Feb, [facility] [place] [facility] [address] [id number] [place] [address] Feb, [facility] [place] [facility] [address] [id number] [place] [address] Feb, [facility] [place] [facility] [address] [id number] [place] [address] Jan, [facility] [place] [facility] [address] [id number] [place] [address] Dec, [facility] [place] [facility] [address] [id number] [place] [address] Nov, [facility] [place] [facility] [address] [id number] [place] [address] October, [facility] [place] [facility] [address] [id number] [place] [address] Sep, [facility] [place] [facility] [address] [id number] [place] [address] Aug, [facility] [place] [facility] [address] [id number] [place] [address] Aug, [facility] [place] [facility] [address] [id number] [place] [address] Aug, [facility] [place] [facility] [address] [id number] [place] [address] May, [facility] [place] [facility] [address] [id number] [place] [address] 12 May, 2012 [facility] [place] [facility] [address] [id number] [place] [address] 12 May, 2012 [facility] [place] [facility] [address] [id number] [place] [address] May, [facility] [place] [facility] [address] [id number] [place] [address] May, [facility] [place] [facility] [address] [id number] [place] [address] 16 Apr, 2012 [facility] [place] [facility] [address] [id number] [place] [address] 16 Apr, 2012 [facility] [place] [facility] [address] [id number] [place] [address] 14 Apr, 2012 [facility] [place] [facility] [address] [id number] [place] [address] 14 Apr, 2012 [facility] [place] [facility] [address] [id number] [place] [address] 07 Apr, 2012 [facility] [place] [facility] [address] [id number] [place] [address] Apr, [facility] [place] [facility] [address] [id number] [place] [address] Apr, [facility] [place] [facility] [address] [id number] [place] [address] Apr, [facility] [place] [facility] [address] [id number] [place] [address]- [address] Mar, [facility] [place] [facility] [address] [id number] [place] [address] Mar, [facility] [place] [facility] [address] [id number] [place] [address]266 Mar, [facility] [place] [facility] [address] [id number] [place] [address] Mar, [facility] [place] [facility] [address] [id number] [place] [address]- [address]238 Mar, [facility] [place] [facility] [address] [id number] [place] [address] Mar, [facility] [place] [facility] [address] [id number] [place] [address] Mar, [facility] [place] [facility] [address] [id number] [place] [address] Feb, [facility] [place] [facility] [address] [id number] [place] [address]64 24 Feb, 2012 [facility] [place] [facility] [address] [id number] [place] [address] 20 Feb, 2012 [facility] [place] [facility] [address] [id number] [place] [address]- [address] 11 Feb, 2012 [facility] [place] [facility] [address] [id number] [place] [address] Jan, [facility] [place] [facility] [address] [id number] [place] [address] Jan, [facility] [place] [facility] [address] [id number] [place] [address] Jan, [facility] [place] [facility] [address] [id number] [place] [address] Jan, [facility] [place] [facility] [address] [id number] [place] [address] Jan, [facility] [place] [facility] [address] [id number] [place] [address] Jan, [facility] [place] [facility] [address] [id number] [place] [address] Dec, [facility] [place] [facility] [address] [id number] [place] [address]39 Dec, [facility] [place] [facility] [address] [id number] [place] [address] Dec, [facility] [place] [facility] [address] [id number] [place] [address]707 Dec, [facility] [place] [facility] [address] [id number] [place] [address] 1749 Dec, [facility] [place] [facility] [address] [id number] [place] [address]- 8624 Dec, [facility] [place] [facility] [address] [id number] [place] [address] 9682 Dec, [facility] [place] [facility] [address] [id number] [place] [address]93 Dec, [facility] [place] [facility] [address] [id number] [place] [address]709 Nov, [facility] [place] [facility] [address] [id number] [place] [address]297 Nov, [facility] [place] [facility] [address] [id number] [place] [address]118 Nov, [facility] [place] [facility] [address] [id number], [place] [address] 07 Nov, 2011 [facility] [address] [id number] [place] [address] October, [facility] [place] [facility] [address] [id number] [place] [address]- [address]186 October, [facility] [place] [facility] [address] [id number] [place] [address] 4[address] Sep, [facility] [place] [facility] [address] [id number] [place] [address]195 Sep, [facility] [place] [facility] [address] [id number] [place] [address]- 8186 27 Aug, 2011 [facility] [place] [facility] [address] [id number] [place] [address]- 1426 16 Aug, 2011 [facility] [id number] [place] [address] Aug, [facility] [place] [facility] [address] [facility] [id number] [place] [address] 7636 07 Aug, 2011 [facility] [place] [facility] [address] [id number] [place] [address]- [address] 05 Aug, 2011 [facility] [place] [facility] [address] [id number] [place] [address]- [address]29 08 Jul, 2011 [facility] [place] [facility] [address] [id number] [place] [address]56 06 Jul, 2011 [facility] [place] [facility] [address] [id number] [place] [address]- 2546 Jul, [facility] [place] [facility] [address] [id number] [place] [address]- 7376 02 Jul, 2011 [facility] [place] [facility] [address] [facility] [id number] [place] [address]- 4296 Jun, [facility] [place] [facility] [address] [facility] [id number] [place] [address]- 9957 Jun, [facility] [place] [facility] [address] [id number] [place] [address]- 6906 Jun, [facility] [address] [id number] [place] [address] 5527 Jun, [facility] [address] [id number] [place] [address]136 Jun, [facility] [address] [id number] [place] [address]11 May, [facility] [address] [id number] [place] [address] 6845 May, [facility] [address] [id number] [place] [address]- 1669 May, [facility] [address] [id number] [place] [address] 8864 May, [facility] [address] [id number] [place] [address]- 9385 May, [facility] [address] [id number] [place] [address]- 2793 May, [facility] [address] [id number] [place] [address]- 9921 Apr, [facility] [address] [id number] [place] [address]- 8808 Apr, [facility] [address] [id number] [place] [address]- 8903 Mar, [facility] [address] [id number] [place] [address]- 1205 Mar, [facility] [place] [facility] [address] [id number] [place] [address]- 7560 October, [facility] [place] [facility] [address] [id number] [place] [address]- 7318 May, [facility] [address] [id number] [address] [place], [facility] [address] [id number] [address] Jul, [facility] [address] [id number] [address] May, [facility] [address] [id number] [address] 8714 May, [facility] [address] [id number] [address] May, [facility] [address] [id number] [address] Apr, [facility] [id number] Apr, [facility] [id number] [address] Mar, [facility] [id number] [address] Jan, [facility] [address] [id number] [address] Nov, IMMUNIZATIONS No Known Immunizations SOCIAL HISTORY Never Assessed REASON FOR VISIT Xray (walk-in)--[facility] PLAN OF CARE VITAL SIGNS MEDICATIONS Unknown Medications RESULTS Name Result Date Reference Range Xray : Chest 2 View (IN HOUSE) 2017-08-05 PROCEDURES Procedure Date Ordered Result Body Site X-RAY EXAM CHEST 2 VIEWS Aug 05, 2017 INSTRUCTIONS MEDICATIONS ADMINISTERED No Known Medications [...]
--- OUTSIDE RECORDS SUMMARY | 2018-02-19 21:39 | XMS REPORT ---
Author Author BOOGIE ARAUJO Organization [facility] Address [address] [place] [address] Care Team Providers Care Pharmacy Manager Name Role Phone BOOGIE ARAUJO Unavailable PROBLEMS Type Condition ICD9-CM Code NXE00-MV Code Onset Dates Condition Status SNOMED Code Problem History of abnormal cervical Pap smear Z87.898 Active 500932952 Problem Thoracogenic scoliosis of thoracolumbar region M41.35 Active 72205613 Problem Uncontrolled type 2 diabetes mellitus without complication, without long-term current use of insulin E11.65 Active 876134525 Problem Diabetes type 2, controlled E11.9 Active 15233329 Problem Thyroid nodule E04.1 Active 469682379 Problem History of colon polyps Z86.010 Active 163811544 Problem Other iron deficiency anemia D50.8 Active 49446652 Problem Iron deficiency anemia due to chronic blood loss D50.0 Active 474007800 Problem Screening breast examination Z12.39 Active 190116523 Problem Allergic rhinitis, unspecified allergic rhinitis trigger, unspecified rhinitis seasonality J30.9 Active 12696255 Problem Controlled type 2 diabetes mellitus without complication, without long -term current use of insulin E11.9 Active 571870268 Problem Other chronic pain G89.29 Active 22585927 ALLERGIES No Information ENCOUNTERS Encounter Location Date Diagnosis [facility] [id number] [place] [address] 55465- 9245 October, Other chronic pain G89.29 [facility] [address], [place] [address] 3787 Sep, Diabetes type 2, controlled E11.9 [facility] [id number] [place] [address] 04983- 9668 Sep, [facility] [id number] [place] [address] 55620- 8314 Sep, Diabetes type 2, controlled E11.9 [facility] [address], [place] [address] 7814 16 Sep, 2017 Other chronic pain G89.29 [facility] [place] [id number] [place] [address] 60348- 1446 Sep, Other iron deficiency anemia D50.8 [facility] [id number] [place] [address] 56850- 3988 Sep, Other iron deficiency anemia D50.8 [facility] [id number] [place] [address] 17190- 0863 Sep, Iron deficiency anemia due to chronic blood loss D50.0 and Dysuria R30.0 [facility] [place] [id number] [place] [address] 05201- 1410 Sep, Dysuria R30.0 [facility] [place] [id number] [place] [address] 24669- 7397 Sep, Iron deficiency anemia due to chronic blood loss D50.0 [facility] [id number] [place] [address] 61261- 8954 Sep, [facility] [id number] [place] [address] 28533- 7531 Sep, Controlled type 2 diabetes mellitus without complication, without long-term current use of insulin E11.9 ; Leg cramps R25.2 ; Low back pain M54.5 and Other chronic pain G89.29 [facility] [id number] [place] [address] 70001- 7575 Sep, Controlled type 2 diabetes mellitus without complication, without long-term current use of insulin E11.9 ; Low back pain M54.5 ; Other chronic pain G89.29 and Leg cramps R25.2 [facility] [id number] [place] [address] 38157- 3081 Aug, Other chronic pain G89.29 [facility] [place] [id number] [place] [address] 95571- 3368 Jul, Other chronic pain G89.29 [facility] [address], [place] [address] 6341 16 Jul, 2017 Pneumonia of left lower lobe due to infectious organism J18.1 [facility] [address], [place] [address] 12 Jul, 2017 Dysuria R30.0 ; Cough in adult patient R05 and Pneumonia of left lower lobe due to infectious organism J18.1 [facility] [address] [facility] [id number] [place] [address] 97346- 8584 08 Jul, 2017 [facility] [id number] [place] [address] 51469- 8565 Jun, Other chronic pain G89.29 [facility] [id number] [place] [address] 80768- 6778 Jun, [facility] [id number] [place] [address] 68476- 7129 Jun, Diabetes type 2, controlled E11.9 ; Back muscle spasm M62.830 and Other chronic pain G89.29 [facility] [id number] [place] [address] 79394- 0908 Jun, Screening breast examination Z12.31 [facility] [id number] [place] [address] 82159- 5283 May, Other chronic pain G89.29 [facility] [id number] [place] [address] 45769- 6307 May, [facility] [id number] [place] [address] 55158- 7654 May, UTI (urinary tract infection) N39.0 [facility] [id number] [place] [address] 49810- 7310 04 May, 2017 Dysuria R30.0 [facility] [id number] [place] [address] 16114- 7929 May, Dysuria R30.0 [facility] [id number] [place] [address] 59661- 4064 May, Diabetes type 2, controlled E11.9 ; long-term current use of 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 Z79.891 and Other chronic pain G89.29 [facility] [id number] [place] [address] 18737- 5227 Apr, Diabetes type 2, controlled E11.9 [facility] [id number] [place] [address] 25880 -3648 Mar, Paronychia of great toe, right L03.031 and Dysuria R30.0 [facility] [id number] [place] [address] 29687- 8571 Mar, Diabetes type 2, controlled E11.9 [facility] [id number] [place] [address] 69015- 7445 28 Feb, 2017 Diabetes type 2, controlled E11.9 [facility] [id number] [place] [address] [id number] 13 Feb, 2017 Dental examination Z01.20 [facility] [id number] [place] [address] 20346- 3818 11 Feb, 2017 Diabetes type 2, controlled E11.9 [facility] [address] [place] [address] 97866- 2924 07 Feb, 2017 Diabetes type 2, controlled E11.9 [facility] [id number] [place] [address] 33155- 0942 14 Jan, 2017 Diabetes type 2, controlled E11.9 [facility] [id number] [place] [address] 65311- 2140 Dec, Diabetes type 2, controlled E11.9 [facility] [id number] [place] [address] 83021- 0755 Dec, Diabetes type 2, controlled E11.9 [facility] [id number] [place] [address] [place] [address]- 2285 30 Nov, 2016 Diabetes type 2, controlled E11.9 [facility] [id number] [place] [address] 80991- 3702 Nov, Diabetes type 2, controlled E11.9 [facility] [id number] [place] [address] 95059- 5943 Nov, Diabetes type 2, controlled E11.9 [facility] [id number] [place] [address] 23238- 3857 Nov, Diabetes type 2, controlled E11.9 [facility] [id number] [place] [address] 95026- 9085 Nov, Diabetes type 2, controlled E11.9 [facility] [id number] [place] [address] 27619- 7930 Nov, Diabetes type 2, controlled E11.9 [facility] [id number] [place] [address] 48756- 6729 October, Pain in unspecified shoulder M25.519 [facility] [id number] [place] [address] 16516- 7006 October, Diabetes type 2, controlled E11.9 and Cellulitis of right lower extremity L03.115 [facility] [id number] [place] [address] 58698- 7475 October, Pain in unspecified shoulder M25.519 [facility] [address] [place] [address] 41515- 8561 Sep, Diabetes type 2, controlled E11.9 [facility] [id number] [place] [address] 70469- 1517 Aug, Pain in unspecified shoulder M25.519 [facility] [id number] [place] [address] 01098- 5774 Aug, Diabetes type 2, controlled E11.9 [facility] [id number] [place] [address] 93821- 2415 09 Aug, 2016 Diabetes type 2, controlled E11.9 ; Dark urine R82.99 and Localized edema R60.0 [place] [address] 59539- 5026 07 Aug, 2016 Pain in unspecified shoulder M25.519 [place] [address] 84954- 7910 07 Jul, 2016 Pain in unspecified shoulder M25.519 [place] [address] 33650- 8965 06 Jul, 2016 [place] [address] 08860- 2557 02 Jul, 2016 Diabetes type 2, controlled E11.9 and long-term current use of 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 Z79.891 [place] [address] 92556- 4064 Jun, Diabetes type 2, controlled E11.9 [place] [id number] [place] [address] 75234- 9435 18 Jun, 2016 Screening breast examination Z12.39 and Allergic rhinitis, unspecified allergic rhinitis trigger, unspecified rhinitis seasonality J30.9 [place] [id number] [place] [address] 05289- 7082 10 Jun, 2016 Pain in unspecified shoulder M25.519 [place] [id number] [place] [address] 63790- 6384 May, [place] [address] 63299- 8384 13 May, 2016 Pain in unspecified shoulder M25.519 [place] [address] 12418- 7534 05 May, 2016 Thoracogenic scoliosis of thoracolumbar region M41.35 ; Low back pain M54.5 ; Other chronic pain G89.29 and Uncontrolled type 2 diabetes mellitus without complication, without long-term current use of insulin E11.65 [place] [address], [place] [address]- 2788 Apr, [facility] [id number] [place] [address] 82300- 3087 Apr, [facility] [id number] [place] [address] 15604- 6851 Apr, History of type 2 diabetes mellitus Z86.39 and Encounter for immunization Z23 [facility] [id number] [place] [address] 09123- 2377 Mar, [facility] [id number] [place] [address] 06171- 5557 Mar, [facility] [id number] [place] [address] 80956- 3698 Feb, [facility] [id number] [place] [address] 74834- 7169 Jan, [facility] [id number] [place] [address] 10007- 6295 Jan, [facility] [id number] [place] [address] 67191- 5763 Dec, [facility] [address], [place] [address] -3138 Dec, Sore throat J02.9 and Allergic rhinitis, unspecified allergic rhinitis type J30.9 [facility] [id number] [place] [address] 25104- 2202 Dec, Diabetes type 2, controlled E11.9 [facility] [id number] [address]- 5321 Nov, [facility] [id number] [place] [address] 28735- 5064 Nov, [facility] [id number] [place] [address] 88479- 1598 October, [facility] [address] [place] [address]- 3336 October, [facility] [address] [address]- 7012 Sep, [facility] [address] 2478 Aug, [facility] [address] 6252 Aug, Diabetes type 2, controlled E11.9 ; UTI (urinary tract infection) N39.0 and Bacterial infection A49.9 [place] [address], [place] [address]- 7154 Jul, [place] [id number] [place] [address] 75444- 9631 Jul, [place] [address], [place] [address]- 2998 Jul, Pharyngitis J02.9 and Seborrheic keratoses L82.1 [place] [address], [place] [address]- 7047 Jun, [place] [address], [place] [address]- 1146 May, [place] [address], [place] [address]- 0059 May, Skin tags, multiple acquired L91.8 ; Seborrheic keratoses L82.1 and Diabetes type 2, controlled E11.9 [place] [id number] [address]- 9865 May, Well woman exam Z01.419 ; Papanicolaou [...] Other fatigue R53.83 and Other hemorrhoids K64.8 [place] [address] 48817- 2826 May, [place] [address] 85629- 6009 May, [place] [address] 72857- 1892 Apr, Seborrheic keratosis L82.1 and Diabetes type 2, controlled E11.[address] 42782- 4547 Apr, Seborrheic keratosis L82.1 and Diabetes type 2, controlled E11.[address] 97496- 0798 Mar, [place] [address] 19231- 1932 Mar, [address] 56085- 1013 Mar, Nevoid hyperpigmentation L81.9 ; Encounter for immunization Z23 ; Skin tags, multiple acquired L91.8 and Seborrheic keratoses L82.1 [place] [address] 17639- 7382 Feb, [place] [address] 27084- 8678 Feb, [place] [address] 60529- 7968 Feb, [place] [address] 62350- 6691 Feb, Diabetes 250.00 ; Tinea corporis 110.5 and Shoulder pain, left 719.[address] [place] [address]- 9879 Jan, [facility] [address]- 1085 Dec, [facility] [address], [place] [address]- 7549 Dec, [facility] [address], [place] [address]- 4027 Dec, Seborrheic keratoses 702.19 ; Diabetes 250.00 and Hypoglycemia 251.2 [facility] [address], [place] [address]- 7121 Nov, [facility] [id number] [place] [address] 58275- 2703 Nov, Abnormal mammogram 793.80 [facility] [id number] [place] [address] 35418- 4665 October, Diabetes 250.00 and Colon polyp 211.3 [facility] [address], [place] [address]- 6737 Sep, [facility] [address], [place] [address]- 6135 Sep, [facility] [address], [place] [address]- 2042 Sep, [facility] [address], [place] [address]- 8006 Aug, [facility] [id number] [address]- 8364 Aug, [facility] [address], [place] [address]- 2646 Jul, [facility] [address], [place] [address]- 4126 Jul, [facility] [id number] [address]- 1422 Jun, [facility] [place] [facility] [address] [id number] [place] [address]- 4679 Jun, [facility] [place] [facility] [address] [id number] [place] [address]- 8640 Jun, [facility] [place] [facility] [address] [id number] [place] [address]- 0604 Jun, [facility] [place] [facility] [address] [id number] [place] [address]- 6836 Jun, [facility] [place] [facility] [address] [id number] [place] [address]- 2865 Jun, [facility] [place] [facility] [address] [id number] [place] [address]- 7020 May, [facility] [place] [facility] [address] [id number] [place] [address]- 7834 May, [facility] [place] [facility] [address] [id number] [place] [address]- 6305 Apr, [facility] [place] [facility] [address] [id number] [place] [address]- 0616 Apr, [facility] [place] [facility] [address] [id number] [place] [address]- 6227 Apr, [facility] [place] [facility] [address] [id number], [place] [address]- 6458 Apr, [facility] [place] [facility] [address] [id number], [place] [address]- 2947 Apr, [facility] [place] [facility] [address] [id number] [place] [address]- 6165 Apr, [facility] [place] [facility] [address] [id number], [place] [address]- 5731 Apr, [facility] [place] [facility] [address] [id number] [place] [address]- 3933 Apr, [facility] [place] [facility] [address] [id number] [place] [address]- 4619 Apr, [facility] [place] [facility] [address] [id number] [place] [address]- 3068 Apr, [facility] [place] [facility] [address] [id number] [place] [address]- 7102 Mar, [facility] [place] [facility] [address] [id number] [place] [address]- 8948 Mar, [facility] [place] [facility] [address] [id number] [place] [address]- 1428 Mar, [facility] [place] [facility] [address] [id number] [place] [address]- 9082 Mar, [facility] [place] [facility] [address] [id number] [place] [address]- 4622 Mar, [facility] [place] [facility] [address] [id number] [place] [address]- 2006 Mar, [facility] [place] [facility] [address] [id number] [place] [address]- 7590 Mar, [facility] [place] [facility] [address] [id number] [place] [address]- 3143 Mar, [facility] [place] [facility] [address] [id number] [place] [address]- 2534 Feb, [facility] [place] [facility] [address] [id number] [place] [address]- 9814 Feb, [facility] [place] [facility] [address] [id number] [place] [address]- 9444 Feb, [facility] [place] [facility] [address] [id number] [place] [address]- 2244 Feb, [facility] [place] [facility] [address] [id number] [place] [address]- 4216 Jan, [facility] [place] [facility] [address] [id number] [place] [address]- 2393 Jan, [facility] [place] [facility] [address] [id number] [place] [address]- 6136 Dec, [facility] [place] [facility] [address] [id number] [place] [address]- 1300 Dec, [facility] [place] [facility] [address] [id number] [place] [address]- 5749 Nov, [facility] [place] [facility] [address] [id number] [place] [address]- 8769 Nov, [facility] [place] [facility] [address] [id number] [place] [address]- 0483 Nov, [facility] [place] [facility] [address] [id number] [place] [address]- 9369 Nov, [facility] [place] [facility] [address] [id number] [place] [address]- 9170 October, [facility] [place] [facility] [address] [id number] [place] [address]- 4646 October, [facility] [place] [facility] [address] [id number] [place] [address]- 1975 October, [facility] [place] [facility] [address] [id number] [place] [address]- 0516 October, [facility] [place] [facility] [address] [id number] [place] [address]- 7371 October, [facility] [place] [facility] [address] [id number] [place] [address]- 0895 October, [facility] [place] [facility] [address] [id number] [place] 8257 October, [facility] [place] [facility] [address] [id number] [place] [address]- 6590 October, [facility] [place] [facility] [address] [id number] [place] [address]- 1487 Aug, [facility] [place] [facility] [address] [id number] [place] [address]- 4927 Aug, [facility] [place] [facility] [address] [id number] [place] [address]- 5505 Jul, [facility] [place] [facility] [address] [id number] [place] [address]- 2956 Jul, [facility] [place] [facility] [address] [id number] [place] [address]- 2476 Jul, [facility] [place] [facility] [address] [id number] [place] [address]- 3807 Jul, [facility] [place] [facility] [address] [id number] [place] [address]- 0039 Jul, [facility] [place] [facility] [address] [facility] [id number] [place] [address]- 5541 Jun, [facility] [place] [facility] [address] [facility] [id number] [place] [address]- 7736 Jun, [facility] [place] [facility] [address] [facility] [id number] [place] [address]- 2029 May, [facility] [place] [facility] [address] [facility] [id number] [place] [address]- 1293 May, [facility] [place] [facility] [address] [facility] [id number] [place] [address]- 6671 Apr, [facility] [place] [facility] [address] [facility] [id number], [place] [address]- 4686 Apr, [facility] [place] [facility] [address] [facility] [id number], [place] [address]- 9332 Mar, [facility] [place] [facility] [address] [facility] [id number] [place] [address]- 8379 Mar, [facility] [place] [facility] [address] [facility] [id number] [place] [address]- 2056 Mar, [facility] [place] [facility] [address] [facility] [id number] [place] [address]- 5765 Feb, [facility] [place] [facility] [address] [id number] [place] [address]- 9485 20 Feb, 2013 [facility] [address] [id number] [place] [address]- 7476 17 Feb, 2013 [facility] [place] [facility] [address] [id number] [place] [address]- 2546 04 Feb, 2013 [facility] [address] [id number] [place] [address] 04 Feb, 2013 [facility] [address] [id number] [place] [address] Jan, [facility] [address] [id number] [place] [address] Dec, [facility] [address] [id number] [place] [address] Nov, [facility] [address] [id number] [place] [address] October, [facility] [address] [id number] [place] [address] Sep, [facility] [address] [id number] [place] [address] Aug, [facility] [address] [id number] [place] [address] Aug, [facility] [address] [id number] [place] [address] Aug, [facility] [address] [id number] [place] [address] May, [facility] [place] [facility] [address] [id number] [place] [address] May, [facility] [place] [facility] [address] [id number] [place] [address] May, [facility] [address] [id number] [place] [address] May, [facility] [place] [facility] [address] [id number] [place] [address] May, [facility] [place] [facility] [address] [id number] [place] [address] Apr, [facility] [place] [facility] [address] [id number] [place] [address] 16 Apr, 2012 [facility] [place] [facility] [address] [id number] [place] [address] Apr, [facility] [place] [facility] [address] [id number] [place] [address] Apr, [facility] [place] [facility] [address] [id number] [place] [address] Apr, [facility] [place] [facility] [address] [id number] [place] [address] Apr, [facility] [place] [facility] [address] [id number], [place] [address] Apr, [facility] [place] [facility] [address] [id number] [place] [address] Apr, [facility] [place] [facility] [address] [id number], [place] [address] Mar, [facility] [place] [facility] [address] [id number], [place] [address] Mar, [facility] [place] [facility] [address] [id number], [place] [address] Mar, [facility] [place] [facility] [address] [id number] [place] [address] Mar, [facility] [place] [facility] [address] [id number], [place] [address] Mar, [facility] [place] [facility] [address] [facility] [id number], [place] [address] Mar, [facility] [place] [facility] [address] [id number] [place] [address] Mar, [facility] [place] [facility] [address] [id number] [place] [address] 28 Feb, 2012 [facility] [place] [facility] [address] [id number] [place] [address] 24 Feb, 2012 [facility] [place] [facility] [address] [id number] [place] [address]- 1296 20 Feb, 2012 [facility] [place] [facility] [address] [id number] [place] [address] 2546 11 Feb, 2012 [facility] [place] [facility] [address] [id number] [place] [address] Jan, [facility] [place] [facility] [address] [id number] [place] [address] Jan, [facility] [place] [facility] [address] [id number] [place] [address] 17 Jan, 2012 [facility] [place] [facility] [address] [id number] [place] [address] 15 Jan, 2012 [facility] [place] [facility] [address] [id number] [place] [address] Jan, [facility] [place] [facility] [address] [id number] [place] [address] Jan, [facility] [place] [facility] [address] [id number] [place] [address] Dec, [facility] [place] [facility] [address] [id number] [place] [address] Dec, [facility] [place] [facility] [address] [id number] [place] [address] Dec, [facility] [place] [facility] [address] [id number] [place] [address] Dec, [facility] [place] [facility] [address] [id number] [place] [address] Dec, [facility] [place] [facility] [address] [id number] [place] [address] 18 Dec, 2011 [facility] [place] [facility] [address] [id number] [place] [address] Dec, [facility] [place] [facility] [address] [id number] [place] [address] 94[address] Dec, [facility] [place] [facility] [address] [id number] [place] [address] Nov, [facility] [place] [facility] [address] [id number] [place] [address] Nov, [facility] [place] [facility] [address] [id number] [place] [address] Nov, [facility] [place] [facility] [address] [id number] [place] [address]643 Nov, [facility] [place] [facility] [address] [id number] [place] [address] 2498 October, [facility] [place] [facility] [address] [id number] [place] [address] October, [facility] [place] [facility] [address] [id number] [place] [address]28 30 Sep, 2011 [facility] [place] [facility] [address] [id number] [place] [address] Sep, [facility] [place] [facility] [address] [id number] [place] [address] 27 Aug, 2011 [facility] [place] [facility] [address] [id number] [place] [address]65 16 Aug, 2011 [facility] [place] [facility] [address] [id number] [place] [address] 07 Aug, 2011 [facility] [place] [facility] [address] [id number] [place] [address]- [address]26 07 Aug, 2011 [facility] [place] [facility] [address] [id number], [place] [address] Aug, [facility] [address] [id number] [place] [address] 08 Jul, 2011 [facility] [address] [id number] [place] [address] 0846 Jul, [facility] [address] [id number] [place] [address] Jul, [facility] [address] [id number] [place] [address] 07[address] Jul, [facility] [address] [id number] [place] [address] Jun, [facility] [address] [id number] [place] [address] 1748 Jun, [facility] [address] [facility] [id number] [place] [address]90 Jun, [facility] [address] [facility] [id number] [place] [address] Jun, [facility] [address] [facility] [id number] [place] [address] Jun, [facility] [address] [facility] [id number] [place] [address] May, [facility] [address] [facility] [id number], [place] [address] May, [facility] [place] [facility] [address] [id number], [place] [address] May, [facility] [place] [facility] [address] [id number], [place] [address] May, [facility] [place] [facility] [address] [facility] [id number] [place] [address] May, [facility] [address] [facility] [id number] [place] [address] 305[address] May, [facility] [place] [facility] [address] [id number] [place] [address] 06[address] Apr, [facility] [place] [facility] [address] [id number] [place] [address] Apr, [facility] [place] [facility] [address] [id number] [place] [address]76 14 Mar, 2011 [facility] [place] [facility] [address] [id number] [place] [address] 49[address] Mar, [facility] [place] [facility] [address] [id number] [place] [address] October, [facility] [place] [facility] [address] [id number] [place] [address] 4255 May, [facility] [place] [facility] [address] [id number] [place] [address] 3027 Apr, [facility] [place] [facility] [address] [id number] [place] [address] Jul, [facility] [place] [facility] [address] [id number] [place] [address] 97[address] May, [facility] [place] [facility] [address] [id number] [place] [address] 2607 May, [facility] [place] [facility] [address] [facility] [id number] [place] [address]- 2037 May, [facility] [place] [facility] [address] [id number] [place] [address]- 2024 Apr, [facility] [place] [facility] [address] [id number] [place] [address] Apr, [facility] [place] [facility] [address] [id number] [place] [address]378 Mar, [facility] [place] [facility] [address] [id number] [place] [address] 14 Jan, 2009 [facility] [place] [facility] [address] [id number] [place] [address] Nov, IMMUNIZATIONS No Known Immunizations SOCIAL HISTORY Never Assessed REASON FOR VISIT Medication refill request PLAN OF CARE VITAL SIGNS MEDICATIONS Medication Instructions Dosage Frequency Start Date End Date Duration Status [place] 7.5-325 MG Orally 4 times a day 1 tablet as needed 6h Apr, 28 days Active RESULTS No Results PROCEDURES [...]
--- OUTSIDE RECORDS SUMMARY | 2018-02-19 21:40 | XMS REPORT ---
Author Author ANGEL RIDLEY [facility] Address [address] [place] [address] Care Team Providers Care Robot Designer Name Role Phone ANGEL RIDLEY Unavailable PROBLEMS Type Condition ICD9-CM Code RLV66-HG Code Onset Dates Condition Status SNOMED Code Problem History of abnormal cervical Pap smear Z87.898 Active 871433608 Problem Thoracogenic scoliosis of thoracolumbar region M41.35 Active 46247563 Problem Uncontrolled type 2 diabetes mellitus without complication, without long-term current use of insulin E11.65 Active 368334465 Problem Diabetes type 2, controlled E11.9 Active 75972289 Problem Thyroid nodule E04.1 Active 007750343 Problem History of colon polyps Z86.010 Active 634917182 Problem Other iron deficiency anemia D50.8 Active 21528098 Problem Iron deficiency anemia due to chronic blood loss D50.0 Active 129693350 Problem Screening breast examination Z12.39 Active 869495979 Problem Allergic rhinitis, unspecified allergic rhinitis trigger, unspecified rhinitis seasonality J30.9 Active 96783109 Problem Controlled type 2 diabetes mellitus without complication, without long -term current use of insulin E11.9 Active 169070059 Problem Other chronic pain G89.29 Active 56372406 ALLERGIES No Information ENCOUNTERS Encounter Location Date Diagnosis [place] [id number] [place] [address]- [address] Dec, [facility] [address] [address] Nov, Other chronic pain G89.29 [facility] [id number] [place] [address] 36298- 5680 Nov, [facility] [id number] [address] 53[address] Nov, [place] [address], [place] [address] October, Diabetes type 2, controlled E11.9 and Acute cystitis without hematuria N30.00 [facility] [address] [address] 6286 October, [facility] [address] [address] 3714 October, [facility] [id number] [place] [address] 59476- 7279 October, [facility] [id number] [place] [address] 97529- 6406 October, Other chronic pain G89.29 [facility] [address] [address] 12[address] Sep, Diabetes type 2, controlled E11.9 [facility] [id number] [place] [address] 26512- 1575 Sep, [facility] [address], [place] [address]- 7004 Sep, Diabetes type 2, controlled E11.9 [facility] [id number] [place] [address] 80886- 9889 Sep, Other chronic pain G89.29 [facility] [address] [address]- 5775 Sep, Other iron deficiency anemia D50.8 [facility] [address] [address]- 9581 Sep, Other iron deficiency anemia D50.8 [facility] [id number] [place] [address] 47246- 4770 Sep, Iron deficiency anemia due to chronic blood loss D50.0 and Dysuria R30.0 [facility] [address] [address]- 5306 Sep, Dysuria R30.0 [facility] [id number] [place] [address] 61725- 7834 Sep, Iron deficiency anemia due to chronic blood loss D50.0 [facility] [id number] [place] [address] 93205- 5195 Sep, [facility] [id number] [place] [address] 13114- 5462 Sep, Controlled type 2 diabetes mellitus without complication, without long-term current use of insulin E11.9 ; Leg cramps R25.2 ; Low back pain M54.5 and Other chronic pain G89.29 [facility] [id number] [place] [address] 40132- 4672 Sep, Controlled type 2 diabetes mellitus without complication, without long-term current use of insulin E11.9 ; Low back pain M54.5 ; Other chronic pain G89.29 and Leg cramps R25.2 [facility] [id number] [place] [address] 33944- 1208 Aug, Other chronic pain G89.29 [facility] [id number] [place] [address] 59980- 5651 Jul, Other chronic pain G89.29 [facility] [id number] [place] [address] 40854- 5530 16 Jul, 2017 Pneumonia of left lower lobe due to infectious organism J18.1 [facility] [id number] [place] [address] 96279 -8542 12 Jul, 2017 Dysuria R30.0 ; Cough in adult patient R05 and Pneumonia of left lower lobe due to infectious organism J18.1 [facility] [id number] [place] [address] 71132- 2544 08 Jul, 2017 [facility] [id number] [place] [address] 23985- 4832 Jun, Other chronic pain G89.29 [facility] [address] [place] [address]- 4573 Jun, [facility] [id number] [place] [address] 56016- 0004 Jun, Diabetes type 2, controlled E11.9 ; Back muscle spasm M62.830 and Other chronic pain G89.29 [facility] [address] [place] [address] 50730- 3431 Jun, Screening breast examination Z12.31 [facility] [id number] [place] [address] 69897- 3320 May, Other chronic pain G89.29 [facility] [id number] [place] [address] 74456- 7113 May, [facility] [id number] [place] [address] 00529- 1886 May, UTI (urinary tract infection) N39.0 [facility] [id number] [place] [address] 28833- 5154 May, Dysuria R30.0 [facility] [id number] [place] [address] 02474- 4758 May, Dysuria R30.0 [facility] [address] [place] [address] 95204- 1567 04 May, 2017 Diabetes type 2, controlled E11.9 ; correction current use of 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 Z79.891 and Other chronic pain G89.29 [facility] [address] [place] [address] 07843- 6413 Apr, Diabetes type 2, controlled E11.9 [facility] [address] [place] [address] 39163 -1257 Mar, Paronychia of great toe, right L03.031 and Dysuria R30.0 [facility] [address], [place] [address]- 6681 Mar, Diabetes type 2, controlled E11.9 [place] [address] [address]- 9056 28 Feb, 2017 Diabetes type 2, controlled E11.9 [facility] [address] [address] 13 Feb, 2017 Dental examination Z01.20 [facility] [address] [place] [address]- 3002 11 Feb, 2017 Diabetes type 2, controlled E11.9 [facility] [address] [address]- 7473 07 Feb, 2017 Diabetes type 2, controlled E11.9 [facility] [address], [place] [address]- 0712 14 Jan, 2017 Diabetes type 2, controlled E11.9 [facility] [address] [address]- 3420 24 Dec, 2016 Diabetes type 2, controlled E11.9 [facility] [address], [place] [address]- 4256 Dec, Diabetes type 2, controlled E11.9 [facility] [address], [place] [address]- 1076 30 Nov, 2016 Diabetes type 2, controlled E11.9 [facility] [address], [place] [address]- 6220 Nov, Diabetes type 2, controlled E11.9 [facility] [address], [place] [address]- 6507 Nov, Diabetes type 2, controlled E11.9 [facility] [address], [place] [address]- 9380 19 Nov, 2016 Diabetes type 2, controlled E11.9 [facility] [address] [address]- 7435 14 Nov, 2016 Diabetes type 2, controlled E11.9 [facility] [address], [place] [address]- 4279 Nov, Diabetes type 2, controlled E11.9 [facility] [address] [address]- 0920 October, Pain in unspecified shoulder M25.519 [facility] [id number] [place] [address] 30787- 4022 October, Diabetes type 2, controlled E11.9 and Cellulitis of right lower extremity L03.115 [facility] [id number] [place] [address] 62518- 1255 October, Pain in unspecified shoulder M25.519 [place] [id number] [place] [address] 72093- 3139 Sep, Diabetes type 2, controlled E11.9 [place] [id number] [place] [address] 98207- 4638 Aug, Pain in unspecified shoulder M25.519 [place] [id number] [place] [address] 79148- 4734 Aug, Diabetes type 2, controlled E11.9 [place] [id number] [place] [address] 81679- 1896 Aug, Diabetes type 2, controlled E11.9 ; Dark urine R82.99 and Localized edema R60.0 [place] [id number] [place] [address] 62414- 9310 Aug, Pain in unspecified shoulder M25.519 [facility] [id number] [place] [address] 72931- 3381 Jul, Pain in unspecified shoulder M25.519 [facility] [id number] [place] [address] 33219- 3148 Jul, [facility] [id number] [place] [address] 08016- 1838 Jul, Diabetes type 2, controlled E11.9 and meterman current use of 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 Z79.891 [place] [id number] [place] [address] 28570- 0772 Jun, Diabetes type 2, controlled E11.9 [place] [address] 41755- 0467 18 Jun, 2016 Screening breast examination Z12.39 and Allergic rhinitis, unspecified allergic rhinitis trigger, unspecified rhinitis seasonality J30.9 [place] [address] 99375- 8868 10 Jun, 2016 Pain in unspecified shoulder M25.519 [place] [address] 42462- 8851 May, [place] [address] 86711- 5376 May, Pain in unspecified shoulder M25.519 [place] [address] 50847- 6607 05 May, 2016 Thoracogenic scoliosis of thoracolumbar region M41.35 ; Low back pain M54.5 ; Other chronic pain G89.29 and Uncontrolled type 2 diabetes mellitus without complication, without long-term current use of insulin E11.65 [place] [id number] [place] [address] 21272- 1631 28 Apr, 2016 [place] [id number] [place] [address] 11411- 2972 Apr, [place] [id number] [place] [address] 15926- 4665 04 Apr, 2016 History of type 2 diabetes mellitus Z86.39 and Encounter for immunization Z23 [place] [id number] [place] [address] 07833- 2973 Mar, [place] [id number] [place] [address] 72583- 9200 Mar, [place] [id number] [place] [address] 66637- 7944 Feb, [place] [address], [place] [address]- 8539 Jan, [facility] [address] [facility] [id number] [address]- 3587 Jan, [facility] [address] [facility] [id number] [address]- 2688 Dec, [facility] [address] [facility] [id number] [address] -2146 Dec, Sore throat J02.9 and Allergic rhinitis, unspecified allergic rhinitis type J30.9 [facility] [address] [facility] [id number] [address]- 0095 Dec, Diabetes type 2, controlled E11.9 [facility] [address] [facility] [id number] [address]- 3165 Nov, [facility] [address] [address]- 4570 Nov, [facility] [address] [facility] [id number] [address]- 6432 October, [facility] [address], [place] [address]- 7348 October, [facility] [address] [facility] [id number] [address]- 2134 Sep, [facility] [id number], [place] [address]- 8465 Aug, [facility] [address] [facility] [id number] [address]- 7481 Aug, Diabetes type 2, controlled E11.9 ; UTI (urinary tract infection) N39.0 and Bacterial infection A49.9 [facility] [address] [facility] [id number] [address]- 6407 Jul, [facility] [address] [facility] [id number] [address]- 9461 Jul, [place] [id number] [place] [address] 58791- 5900 Jul, Pharyngitis J02.9 and Seborrheic keratoses L82.1 [place] [id number] [place] [address] 32213- 1770 Jun, [place] [id number] [place] [address] 44445- 4743 May, [place] [address] 13109- 0286 May, Skin tags, multiple acquired L91.8 ; Seborrheic keratoses L82.1 and Diabetes type 2, controlled E11.9 [place] [id number] [place] [address] 32058- 0596 May, Well woman exam Z01.419 ; Papanicolaou [...] Other hemorrhoids K64.8 and Other fatigue R53.83 [place] [address] [place] [address] 59976- 8016 15 May, 2015 [place] [address] [place] [address] 87157- 3246 May, [place] [id number] [place] [address] 48904- 3278 Apr, Seborrheic keratosis L82.1 and Diabetes type 2, controlled E11.9 [place] [address] [place] [address] 81718- 5098 Apr, Seborrheic keratosis L82.1 and Diabetes type 2, controlled E11.9 [place] [id number] [place] [address] 41499- 0697 Mar, [facility] [id number] [place] [address] 22394- 6167 Mar, [facility] [id number] [place] [address] 62463- 0865 Mar, Encounter for immunization Z23 ; Nevoid hyperpigmentation L81.9 ; Skin tags, multiple acquired L91.8 and Seborrheic keratoses L82.1 [facility] [id number] [place] [address] 75473- 1608 Feb, [facility] [address] 17296- 0744 Feb, [facility] [id number] [place] [address] 85505- 6395 Feb, [facility] [address] 53311- 8317 Feb, Diabetes 250.00 ; Tinea corporis 110.5 and Shoulder pain, left 719.41 [place] [id number] [place] [address] 59401- 3010 Jan, [facility] [id number] [place] [address] 27499- 7808 Dec, [place] [id number] [place] [address] 56689- 7257 Dec, [facility] [id number] [place] [address] 55984- 6659 Dec, Seborrheic keratoses 702.19 ; Diabetes 250.00 and Hypoglycemia 251.2 [facility] [id number] [place] [address] 94065- 5330 Nov, [facility] [id number] [place] [address] 16191- 1565 Nov, Abnormal mammogram 793.80 [facility] [address] [id number] [place] [address]- 2297 October, Diabetes 250.00 and Colon polyp 211.3 [facility] [address] [id number] [place] [address]- 9406 Sep, [facility] [address] [facility] [id number] [place] [address]- 8337 Sep, [facility] [address] [id number] [place] [address]- 0782 Sep, [facility] [address] [id number] [place] [address]- 9084 Aug, [facility] [address] [facility] [id number] [place] [address]- 0263 Aug, [facility] [address] [place] [address]- 1097 Jul, [facility] [id number] [address]- 2953 Jul, [facility] [id number] [place] [address]- 9579 Jun, [facility] [address] [facility] [id number] [address]- 1988 Jun, [facility] [address] [facility] [id number] [address]- 1045 Jun, [facility] [address] [id number] [address]- 6141 Jun, [facility] [address] [facility] [id number] [place] [address]- 2167 Jun, [facility] [address] [facility] [id number] [address]- 0728 Jun, [facility] [address] [facility] [id number] [place] [address]- 2109 May, [facility] [address] [id number] [place] [address]- 7635 May, [facility] [place] [facility] [address] [id number] [place] [address]- 0046 Apr, [facility] [place] [facility] [address] [id number] [place] [address]- 6758 Apr, [facility] [place] [facility] [address] [id number] [place] [address]- 6530 Apr, [facility] [place] [facility] [address] [id number] [place] [address]- 1945 Apr, [facility] [place] [facility] [address] [id number] [place] [address]- 3401 Apr, [facility] [place] [facility] [address] [id number] [place] [address]- 7649 Apr, [facility] [place] [facility] [address] [id number] [place] [address]- 9797 Apr, [facility] [place] [facility] [address] [id number] [place] [address]- 2693 Apr, [facility] [place] [facility] [address] [id number] [place] [address]- 7756 Apr, [facility] [place] [facility] [address] [facility] [id number] [place] [address]- 3999 Apr, [facility] [place] [facility] [address] [id number] [place] [address]- 4708 Mar, [facility] [place] [facility] [address] [id number] [place] [address]- 3252 Mar, [facility] [place] [facility] [address] [id number] [place] [address]- 0839 Mar, [facility] [place] [facility] [address] [id number] [place] [address]- 1805 Mar, [facility] [place] [facility] [address] [id number] [address]- 0340 Mar, [facility] [place] [facility] [address] [id number] [place] [address]- 8598 Mar, [facility] [place] [facility] [address] [id number] [place] [address]- 1848 Mar, [facility] [place] [facility] [address] [id number] [place] [address]- 1571 Mar, [facility] [place] [facility] [address] [id number] [place] [address]- 9094 Feb, [facility] [place] [facility] [address] [id number] [place] [address]- 5832 Feb, [facility] [place] [facility] [address] [id number] [place] [address]- 0471 Feb, [facility] [place] [facility] [address] [id number] [place] [address]- 7620 Feb, [facility] [place] [facility] [address] [id number] [place] [address]- 1327 Jan, [facility] [place] [facility] [address] [id number] [place] [address]- 7646 Jan, [facility] [place] [facility] [address] [id number] [place] [address]- 0538 Dec, [facility] [place] [facility] [address] [id number] [place] [address]- 1064 Dec, [facility] [place] [facility] [address] [id number] [place] [address]- 2083 Nov, [facility] [place] [facility] [address] [id number] [place] [address]- 1773 Nov, [facility] [place] [facility] [address] [id number] [place] [address]- 8205 Nov, [facility] [place] [facility] [address] [id number] [place] [address]- 5662 Nov, [facility] [place] [facility] [address] [id number] [place] [address]- 0845 October, [facility] [address] [id number] [place] [address]- 7398 October, [facility] [place] [facility] [address] [id number] [place]- 6016 October, [facility] [place] [facility] [address] [id number] [place] [address]- 1835 October, [facility] [place] [facility] [address] [id number] [place] [address]- 0360 October, [facility] [place] [facility] [address] [id number] [place] [address] October, [facility] [place] [facility] [address] [id number] [place] [address] October, [facility] [place] [facility] [address] [id number] [place] [address] October, [facility] [place] [facility] [address] [id number] [place] [address] Aug, [facility] [place] [facility] [address] [id number] [place] [address] Aug, [facility] [place] [facility] [address] [id number] [place] [address] Jul, [facility] [place] [facility] [address] [id number] [place] [address] Jul, [facility] [place] [facility] [address] [id number] [place] [address] Jul, [facility] [place] [facility] [address] [id number] [place] [address] Jul, [facility] [place] [facility] [address] [id number] [place] [address] Jul, [facility] [place] [facility] [address] [id number] [place] [address] Jun, [facility] [place] [facility] [address] [id number] [place] [address] Jun, [facility] [place] [facility] [address] [id number] [place] [address] May, [facility] [place] [facility] [address] [id number] [place] [address] May, [facility] [place] [facility] [address] [id number] [place] [address] Apr, [facility] [place] [facility] [address] [id number] [place] [address] Apr, [facility] [place] [facility] [address] [id number] [place] [address] Mar, [facility] [place] [facility] [address] [id number] [place] [address] Mar, [facility] [place] [facility] [address] [id number] [place] [address] Mar, [facility] [place] [facility] [address] [id number] [place] [address] Feb, [facility] [place] [facility] [address] [id number] [place] [address] Feb, [facility] [place] [facility] [address] [id number] [place] [address] Feb, [facility] [place] [facility] [address] [id number] [place] [address] Feb, [facility] [place] [facility] [address] [id number] [place] [address] Feb, [facility] [place] [facility] [address] [id number] [place] [address] Jan, [facility] [place] [facility] [address] [id number] [place] [address] Dec, [facility] [place] [facility] [address] [id number] [place] [address] Nov, [facility] [place] [facility] [address] [id number] [place] [address] October, [facility] [place] [facility] [address] [id number] [place] [address] Sep, [facility] [place] [facility] [address] [id number] [place] [address] Aug, [facility] [place] [facility] [address] [id number] [place] [address] Aug, [facility] [place] [facility] [address] [id number] [place] [address] Aug, [facility] [place] [facility] [address] [id number] [place] [address] May, [facility] [place] [facility] [address] [id number] [place] [address] 12 May, 2012 [facility] [place] [facility] [address] [id number] [place] [address] 12 May, 2012 [facility] [place] [facility] [address] [id number] [place] [address] May, [facility] [place] [facility] [address] [id number] [place] [address] May, [facility] [place] [facility] [address] [id number] [address] 16 Apr, 2012 [facility] [place] [facility] [address] [id number] [address] 16 Apr, 2012 [facility] [place] [facility] [address] [id number] [place] [address] 14 Apr, 2012 [facility] [facility] [address] [id number] [place] [address] 14 Apr, 2012 [facility] [place] [facility] [address] [id number] [place] [address] 07 Apr, 2012 [facility] [place] [facility] [address] [id number] [place] [address] Apr, [facility] [place] [facility] [address] [id number] [place] [address] Apr, [facility] [place] [facility] [address] [id number] [place] [address] Apr, [facility] [place] [facility] [address] [id number] [place] [address] Mar, [facility] [place] [facility] [address] [id number] [place] [address] Mar, [facility] [place] [facility] [address] [id number] [place] [address] Mar, [facility] [place] [facility] [address] [id number] [place] [address] Mar, [facility] [place] [facility] [address] [facility] [id number] [place] [address] Mar, [facility] [place] [facility] [address] [id number] [place] [address] Mar, [facility] [place] [facility] [address] [id number] [place] [address] Mar, [facility] [place] [facility] [address] [facility] [id number] [place] [address] Feb, [facility] [place] [facility] [address] [id number] [place] [address] 24 Feb, 2012 [facility] [place] [facility] [address] [id number] [place] [address] 20 Feb, 2012 [facility] [place] [facility] [address] [id number] [place] [address] 11 Feb, 2012 [facility] [place] [address] [facility] [id number] [place] [address] Jan, [facility] [place] [facility] [address] [id number] [place] [address] Jan, [facility] [place] [facility] [address] [id number] [place] [address] Jan, [facility] [place] [facility] [address] [id number] [place] [address] Jan, [facility] [place] [facility] [address] [id number] [place] [address] Jan, [facility] [place] [facility] [address] [id number] [place] [address] Jan, [facility] [place] [facility] [address] [id number] [place] [address] Dec, [facility] [place] [facility] [address] [id number] [place] [address] Dec, [facility] [place] [facility] [address] [id number] [place] [address] 2020 Dec, [facility] [place] [facility] [address] [id number] [place] [address] Dec, [facility] [place] [address] [id number] [place] [address] Dec, [facility] [place] [facility] [address] [id number] [place] [address] Dec, [facility] [address] [id number] [place] [address] Dec, [facility] [address] [id number] [place] [address] 8524 Dec, [facility] [place] [facility] [address] [id number] [place] [address] Nov, [facility] [place] [facility] [address] [id number] [place] [address] Nov, [facility] [address] [id number] [place] [address] Nov, [facility] [place] [facility] [address] [id number] [place] [address]46 Nov, [facility] [address] [id number] [place] [address] October, [facility] [address] [id number] [place] [address]26 October, [facility] [place] [address] [id number] [place] [address] Sep, [facility] [address] [id number] [place] [address] Sep, [facility] [place] [address] [id number] [place] [address] Aug, [facility] [place] [address] [id number] [place] [address] 16 Aug, 2011 [facility] [address] [facility] [id number] [place] [address] Aug, [facility] [address] [id number] [place] [address] 7984 Aug, [facility] [address] [id number] [place] [address] Aug, [facility] [place] [address] [id number] [place] [address] Jul, [facility] [address] [id number] [place] [address]267 Jul, [facility] [address] [id number] [place] [address] 25[address] Jul, [facility] [address] [id number] [place] [address] Jul, [facility] [address] [id number] [place] [address] 8916 Jun, [facility] [address] [id number] [place] [address] 4036 Jun, [facility] [address] [id number] [place] [address] 2546 Jun, [facility] [address] [id number] [place] [address] 1672 Jun, [facility] [address] [id number] [place] [address] 2546 Jun, [facility] [address] [id number] [place] [address] May, [facility] [address] [id number] [place] [address] May, [facility] [address] [id number] [place] [address] 0[address] May, [facility] [address] [id number] [place] [address] May, [facility] [address] [id number] [place] [address] May, [facility] [address] [id number] [place] [address] 235[address] May, [facility] [address] [id number] [place] [address]572 Apr, [facility] [address] [id number] [place] [address] 6965 Apr, [facility] [address] [id number] [place] [address] 8951 Mar, [facility] [address] [id number] [place] [address] 0956 Mar, [facility] [address] [id number] [place] [address] 3916 October, [facility] [address] [id number] [place] [address] 2546 May, [facility] [address] [id number] [place] [address] Apr, [facility] [address] [id number] [address] Jul, [facility] [address] [id number] [address] May, [facility] [address] [id number] [address] May, [facility] [id number] [address] May, [facility] [id number] [address] Apr, [facility] [id number] [address] Apr, [facility] [id number] [address] Mar, [facility] [address] [id number] [address] Jan, [facility] [address] [id number] [address] Nov, IMMUNIZATIONS No Known Immunizations SOCIAL HISTORY Never Assessed 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
--- OUTSIDE RECORDS SUMMARY | 2018-02-19 21:41 | XMS REPORT ---
Author Author BOOGIE ARAUJO Organization [facility] Address [address] [place] [address] Care Team Providers Care Rod Pointer Name Role Phone BOOGIE ARAUJO Unavailable PROBLEMS Type Condition ICD9-CM Code PPF46-IQ Code Onset Dates Condition Status SNOMED Code Problem History of abnormal cervical Pap smear Z87.898 Active 846613595 Problem Thoracogenic scoliosis of thoracolumbar region M41.35 Active 51157762 Problem Uncontrolled type 2 diabetes mellitus without complication, without long-term current use of insulin E11.65 Active 410349308 Problem Diabetes type 2, controlled E11.9 Active 26552204 Problem Thyroid nodule E04.1 Active 174771778 Problem History of colon polyps Z86.010 Active 819755380 Problem Other iron deficiency anemia D50.8 Active 47923226 Problem Iron deficiency anemia due to chronic blood loss D50.0 Active 884699683 Problem Screening breast examination Z12.39 Active 393265405 Problem Allergic rhinitis, unspecified allergic rhinitis trigger, unspecified rhinitis seasonality J30.9 Active 86591474 Problem Controlled type 2 diabetes mellitus without complication, without long -term current use of insulin E11.9 Active 280146563 Problem Other chronic pain G89.29 Active 75867616 ALLERGIES Substance Reaction Event Type Date Status Diclofenac rash Drug Allergy May, Active Invokana swelling Drug Allergy May, Active Trilipix Unknown Drug Allergy May, Active Simcor chest pain, due to high doses of niacin in the simcor Drug Allergy May, Active Meloxicam elevated BG, fluid retention Drug Allergy May, Active Hydrochlorothiazide Unknown Drug Allergy May, Active Dimetapp Maximum Strength Unknown Drug Allergy May, Active BusPIRone HCl dizziness Drug Allergy May, Active Augmentin Unknown Drug Allergy May, Active ENCOUNTERS Encounter Location Date Diagnosis [facility] [address] [facility] [id number] [address] Dec, [facility] [address], [place] [address] October, Diabetes type 2, controlled E11.9 and Acute cystitis without hematuria N30.00 [facility] [address], [place] [address] 4[address] October, [facility] [address], [place] [address] 96[address] October, [facility] [address], [place] [address] 5[address] October, [facility] [id number] [place] [address] 67651- 7404 October, Other chronic pain G89.29 [facility] [address], [place] [address] 8[address] Sep, Diabetes type 2, controlled E11.9 [facility] [address], [place] [address] Sep, [facility] [address], [place] [address] 7841 Sep, Diabetes type 2, controlled E11.9 [facility] [address], [place] [address] 7955 Sep, Other chronic pain G89.29 [facility] [address], [place] [address] 4649 Sep, Other iron deficiency anemia D50.8 [facility] [address], [place] [address] 3163 Sep, Other iron deficiency anemia D50.8 [facility] [id number] [place] [address] 11732- 6858 Sep, Iron deficiency anemia due to chronic blood loss D50.0 and Dysuria R30.0 [facility] [address], [place] [address]- 8913 Sep, Dysuria R30.0 [facility] [address], [place] [address]- 3164 Sep, Iron deficiency anemia due to chronic blood loss D50.0 [facility] [address], [place] [address]- 89[address] Sep, [facility] [id number] [place] [address] 25467- 1685 Sep, Controlled type 2 diabetes mellitus without complication, without long-term current use of insulin E11.9 ; Leg cramps R25.2 ; Low back pain M54.5 and Other chronic pain G89.29 [facility] [address] [place] [address] 11167- 7225 Sep, Controlled type 2 diabetes mellitus without complication, without long-term current use of insulin E11.9 ; Low back pain M54.5 ; Other chronic pain G89.29 and Leg cramps R25.2 [facility] [id number] [place] [address] 25624- 7768 Aug, Other chronic pain G89.29 [facility] [id number] [place] [address] 67707- 7353 Jul, Other chronic pain G89.29 [facility] [address], [place] [address]- 3750 16 Jul, 2017 Pneumonia of left lower lobe due to infectious organism J18.1 [facility] [address], [place] [address] 12 Jul, 2017 Dysuria R30.0 ; Cough in adult patient R05 and Pneumonia of left lower lobe due to infectious organism J18.1 [facility] [address], [place] [address]- 6[address] 08 Jul, 2017 [facility] [address], [place] [address]- 9851 Jun, Other chronic pain G89.29 [place] [address], [place] [address]- 2316 Jun, [facility] [id number] [place] [address] 34984- 4404 Jun, Diabetes type 2, controlled E11.9 ; Back muscle spasm M62.830 and Other chronic pain G89.29 [facility] [id number] [place] [address] 14970- 3775 Jun, Screening breast examination Z12.31 [facility] [address] [place] [address] 97786- 8321 May, Other chronic pain G89.29 [place] [id number] [place] [address] 15484- 7568 May, [facility] [id number] [place] [address] 59233- 9959 May, UTI (urinary tract infection) N39.0 [facility] [id number] [place] [address] 88909- 0459 04 May, 2017 Dysuria R30.0 [facility] [place] [id number] [place] [address] 74140- 9228 May, Dysuria R30.0 [facility] [address] [place] [address] 97752- 5861 04 May, 2017 Diabetes type 2, controlled E11.9 ; emt intermediate current use of 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 Z79.891 and Other chronic pain G89.29 [facility] [address], [place] [address]- 5202 Apr, Diabetes type 2, controlled E11.9 [facility] [address] [place] [address] 27520 -8842 Mar, Paronychia of great toe, right L03.031 and Dysuria R30.0 [facility] [address] [place] [address] 98853- 6008 Mar, Diabetes type 2, controlled E11.9 [facility] [address] [facility] [id number] [place] [address]- 7515 28 Feb, 2017 Diabetes type 2, controlled E11.9 [facility] [address] [id number] [id number] 13 Feb, 2017 Dental examination Z01.20 [facility] [address] [facility] [id number], [place] [address]- 9426 11 Feb, 2017 Diabetes type 2, controlled E11.9 [facility] [address] [facility] [id number], [place] [address]- 5194 07 Feb, 2017 Diabetes type 2, controlled E11.9 [facility] [address] [facility] [id number], [place] [address]- 2813 Jan, Diabetes type 2, controlled E11.9 [facility] [address], [place] [address]- 4566 Dec, Diabetes type 2, controlled E11.9 [facility] [id number], [place] [address]- 3339 Dec, Diabetes type 2, controlled E11.9 [facility] [address], [place] [address]- 4541 30 Nov, 2016 Diabetes type 2, controlled E11.9 [facility] [address], [place] [address]- 5642 Nov, Diabetes type 2, controlled E11.9 [facility] [id number], [place] [address]- 0920 Nov, Diabetes type 2, controlled E11.9 [facility] [address], [place] [address]- 7101 Nov, Diabetes type 2, controlled E11.9 [facility] [id number], [place] [address]- 1208 14 Nov, 2016 Diabetes type 2, controlled E11.9 [facility] [address] [place] [address] 82072- 8439 Nov, Diabetes type 2, controlled E11.9 [facility] [id number] [place] [address] 68886- 9707 October, Pain in unspecified shoulder M25.519 [facility] [id number] [place] [address] 14219- 3320 October, Diabetes type 2, controlled E11.9 and Cellulitis of right lower extremity L03.115 [facility] [id number] [place] [address] 04124- 3220 October, Pain in unspecified shoulder M25.519 [place] [id number] [place] [address] 63370- 3651 Sep, Diabetes type 2, controlled E11.9 [place] [id number] [place] [address] 16711- 7585 Aug, Pain in unspecified shoulder M25.519 [facility] [place] [id number] [place] [address] 24144- 5684 Aug, Diabetes type 2, controlled E11.9 [facility] [id number] [place] [address] 45207- 0581 Aug, Diabetes type 2, controlled E11.9 ; Dark urine R82.99 and Localized edema R60.0 [facility] [id number] [place] [address] 38134- 2026 Aug, Pain in unspecified shoulder M25.519 [facility] [id number] [place] [address] 43772- 3667 Jul, Pain in unspecified shoulder M25.519 [place] [id number] [place] [address] 71244- 4905 Jul, [place] [id number] [place] [address] 68447- 5154 Jul, Diabetes type 2, controlled E11.9 and emt intermediate current use of 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 Z79.891 [place] [address] 55930- 8072 Jun, Diabetes type 2, controlled E11.9 [place] [address] 52447- 1477 18 Jun, 2016 Screening breast examination Z12.39 and Allergic rhinitis, unspecified allergic rhinitis trigger, unspecified rhinitis seasonality J30.9 [place] [address] 54692- 4450 10 Jun, 2016 Pain in unspecified shoulder M25.519 [place] [address] 00238- 5091 May, [place] [address] 02827- 2793 May, Pain in unspecified shoulder M25.519 [place] [address] 92962- 1226 05 May, 2016 Thoracogenic scoliosis of thoracolumbar region M41.35 ; Low back pain M54.5 ; Other chronic pain G89.29 and Uncontrolled type 2 diabetes mellitus without complication, without long-term current use of insulin E11.65 [place] [address] 00514- 8822 Apr, [place] [address] 03493- 4519 Apr, [place] [address] 66683- 3088 04 Apr, 2016 History of type 2 diabetes mellitus Z86.39 and Encounter for immunization Z23 [place] [address] 11112- 7769 Mar, [place] [address] 06016- 4580 Mar, [place] [address] 40859- 9948 Feb, [facility] [address] [facility] [id number], [place] [address]- 4126 Jan, [facility] [address] [facility] [id number], [place] [address]- 2116 Jan, [facility] [address] [facility] [id number], [place] [address]- 6917 Dec, [facility] [address] [facility] [id number], [place] [address] -[address]81 Dec, Sore throat J02.9 and Allergic rhinitis, unspecified allergic rhinitis type J30.9 [facility] [address] [facility] [id number], [place] [address]- 6794 Dec, Diabetes type 2, controlled E11.9 [facility] [id number], [place] [address]- 1204 Nov, [facility] [address], [place] [address]- 0698 Nov, [facility] [id number], [place] [address]- 9703 October, [facility] [address], [place] [address]- 1768 October, [facility] [id number], [place] [address]- 7888 Sep, [facility] [id number], [place] [address]- 0242 Aug, [facility] [id number]- 4853 Aug, Diabetes type 2, controlled E11.9 ; UTI (urinary tract infection) N39.0 and Bacterial infection A49.9 [facility] [address] [facility] [id number], [place] [address]- 7605 Jul, [facility] [id number], [place] [address]- 4818 Jul, [place] [address] [place] [address] 75617- 5674 Jul, Pharyngitis J02.9 and Seborrheic keratoses L82.1 [place] [address], [place] [address]- 2701 Jun, [place] [id number] [place] [address] 81366- 5236 May, [place] [id number] [place] [address] 67710- 7718 May, Skin tags, multiple acquired L91.8 ; Seborrheic keratoses L82.1 and Diabetes type 2, controlled E11.9 [place] [address] [place] [address] 17869- 3613 May, Well woman exam Z01.419 ; Papanicolaou [...] Other hemorrhoids K64.8 and Other fatigue R53.83 [place] [address] [place] [address] 00459- 2796 May, [place] [address] [place] [address] 57404- 1080 May, [place] [id number] [place] [address] 70878- 9356 Apr, Seborrheic keratosis L82.1 and Diabetes type 2, controlled E11.9 [place] [address] [place] [address] 86171- 9696 Apr, Seborrheic keratosis L82.1 and Diabetes type 2, controlled E11.9 [facility] [id number], [place] [address]- 1973 Mar, [facility] [id number] [place] [address] 64045- 0579 Mar, [facility] [id number] [place] [address] 23287- 3960 Mar, Encounter for immunization Z23 ; Nevoid hyperpigmentation L81.9 ; Skin tags, multiple acquired L91.8 and Seborrheic keratoses L82.1 [facility] [id number] [place] [address] 22002- 5187 Feb, [place] [id number] [place] [address] 47023- 2201 Feb, [facility] [id number] [place] [address] 96447- 0807 Feb, [facility] [id number] [place] [address] 59150- 8571 Feb, Diabetes 250.00 ; Tinea corporis 110.5 and Shoulder pain, left 719.41 [place] [id number] [place] [address] 03299- 7807 Jan, [facility] [id number] [place] [address] 61337- 9633 Dec, [facility] [id number] [place] [address] 72288- 9686 Dec, [facility] [id number] [place] [address] 97903- 8293 Dec, Seborrheic keratoses 702.19 ; Diabetes 250.00 and Hypoglycemia 251.2 [facility] [id number] [place] [address] 03606- 2438 Nov, [facility] [id number] [place] [address] 80197- 3222 Nov, Abnormal mammogram 793.80 [facility] [address] [facility] [id number] [place] [address]- 7531 October, Diabetes 250.00 and Colon polyp 211.3 [facility] [address] [facility] [id number] [place] [address]- 6352 29 Sep, 2014 [facility] [id number] [address]- 7480 Sep, [facility] [address] [facility] [id number] [place] [address]- 8354 Sep, [facility] [id number] [address]- 8530 Aug, [facility] [address] [place] [id number] [place] [address]- 5684 Aug, [facility] [address], [place] [address]- 8310 Jul, [facility] [id number] [place] [address]- 2045 Jul, [facility] [id number] [address]- 5693 Jun, [facility] [id number] [address]- 3749 Jun, [facility] [id number], [place] [address]- 8635 Jun, [facility] [id number], [place] [address]- 4854 Jun, [facility] [address], [place] [address]- 7719 Jun, [facility] [id number] 9235 Jun, [facility] [id number] 1743 May, [facility] [place] [facility] [address] [id number] [place] [address]- 1338 May, [facility] [place] [facility] [address] [id number] [place] [address]- 5550 Apr, [facility] [place] [facility] [address] [id number] [place] [address]- 2583 Apr, [facility] [place] [facility] [address] [id number] [place] [address]- 3372 Apr, [facility] [place] [facility] [address] [id number] [place] [address]- 4601 Apr, [facility] [place] [facility] [address] [id number] [place] [address]- 9175 Apr, [facility] [place] [facility] [address] [id number] [place] [address]- 2380 Apr, [facility] [place] [facility] [address] [id number] [place] [address]- 2839 Apr, [facility] [place] [facility] [address] [id number] [place] [address]- 4417 Apr, [facility] [place] [facility] [address] [id number] [place] [address]- 6255 Apr, [facility] [place] [facility] [address] [id number] [place] [address]- 8227 Apr, [facility] [place] [facility] [address] [id number] [place] [address]- 1788 Mar, [facility] [place] [facility] [address] [id number] [place] [address]- 5493 Mar, [facility] [place] [facility] [address] [id number] [place] [address]- 8504 Mar, [facility] [place] [facility] [address] [id number] [place] [address]- 4239 Mar, [facility] [place] [facility] [address] [id number] [place] [address]- 4013 Mar, [facility] [place] [facility] [address] [id number] [place] [address]- 1075 Mar, [facility] [place] [facility] [address] [id number] [place] [address]- 3935 Mar, [facility] [place] [facility] [address] [id number] [place] [address]- 9957 Mar, [facility] [place] [facility] [address] [id number] [place] [address]- 3431 Feb, [facility] [place] [facility] [address] [id number] [place] [address]- 1264 Feb, [facility] [place] [facility] [address] [id number] [place] [address]- 1646 Feb, [facility] [place] [facility] [address] [id number] [place] [address]- 3166 Feb, [facility] [place] [facility] [address] [id number] [place] [address]- 7616 Jan, [facility] [place] [facility] [address] [id number] [place] [address]- 5623 Jan, [facility] [place] [facility] [address] [id number] [place] [address]- 3517 Dec, [facility] [place] [facility] [address] [id number] [place] [address]- 2653 Dec, [facility] [place] [facility] [address] [id number], [place] [address]- 5880 Nov, [facility] [place] [facility] [address] [id number] [place] [address]- 6410 Nov, [facility] [place] [facility] [address] [id number] [place] [address]- 7184 Nov, [facility] [place] [facility] [address] [id number] [place] [address]- 1957 Nov, [facility] [place] [facility] [address] [id number] [place] [address]- 0876 October, [facility] [address] [id number] [place] 3014 October, [facility] [place] [facility] [address] [id number] [place] [address]652 October, [facility] [address] [id number] [place] [address]- 6417 October, [facility] [address] [id number] [place] [address]- 9923 October, [facility] [address] [id number] [place] [address]- 8138 October, [facility] [address] [id number] [place] [address]- 2974 October, [facility] [address] [id number] [place] [address]- 0848 October, [facility] [address] [id number] [place] [address]- 7005 Aug, [facility] [place] [facility] [address] [id number] [place] [address]- 0931 Aug, [facility] [address] [id number] [place] [address]- 5773 Jul, [facility] [place] [facility] [address] [id number] [place] [address] Jul, [facility] [place] [facility] [address] [id number] [place] [address] Jul, [facility] [place] [facility] [address] [id number] [place] [address] Jul, [facility] [place] [facility] [address] [id number] [place] [address] Jul, [facility] [place] [facility] [address] [id number] [place] [address] Jun, [facility] [place] [facility] [address] [id number] [place] [address] Jun, [facility] [place] [facility] [address] [id number] [place] [address] May, [facility] [place] [facility] [address] [id number] [place] [address] May, [facility] [place] [facility] [address] [id number] [place] [address] Apr, [facility] [place] [facility] [address] [id number] [place] [address] Apr, [facility] [place] [facility] [address] [id number] [place] [address] Mar, [facility] [place] [facility] [address] [id number] [place] [address] Mar, [facility] [place] [facility] [address] [id number] [place] [address] Mar, [facility] [place] [facility] [address] [id number] [place] [address] Feb, [facility] [place] [facility] [address] [id number] [place] [address] Feb, [facility] [place] [facility] [address] [id number], [place] [address] Feb, [facility] [place] [facility] [address] [id number], [place] [address] Feb, [facility] [place] [facility] [address] [id number] [place] [address] Feb, [facility] [place] [facility] [address] [id number], [place] [address] Jan, [facility] [place] [facility] [address] [id number] [place] [address] Dec, [facility] [place] [facility] [address] [id number] [place] [address] 06 Nov, 2012 [facility] [address] [id number] [place] [address] October, [facility] [place] [facility] [address] [id number] [place] [address] Sep, [facility] [address] [id number] [place] [address] Aug, [facility] [place] [facility] [address] [id number] [place] [address] Aug, [facility] [address] [id number] [id number] [address] Aug, [facility] [place] [facility] [address] [id number] [place] [address] 21 May, 2012 [facility] [address] [id number] [place] [address] 12 May, 2012 [facility] [place] [facility] [address] [id number] [place] [address] 12 May, 2012 [facility] [place] [facility] [address] [id number] [place] [address] May, [facility] [place] [facility] [address] [id number] [place] [address] 11 May, 2012 [facility] [address] [id number] [place] [address] 16 Apr, 2012 [facility] [place] [facility] [address] [id number] [place] [address] 16 Apr, 2012 [facility] [place] [facility] [address] [id number] [place] [address] 14 Apr, 2012 [facility] [place] [facility] [address] [id number] [place] [address] 14 Apr, 2012 [facility] [place] [facility] [address] [id number] [place] [address] 07 Apr, 2012 [facility] [place] [facility] [address] [id number] [place] [address] Apr, [facility] [place] [facility] [address] [id number] [place] [address] Apr, [facility] [place] [facility] [address] [id number] [place] [address] Apr, [facility] [place] [facility] [address] [id number] [place] [address] Mar, [facility] [place] [facility] [address] [id number] [place] [address] 285[address] Mar, [facility] [place] [facility] [address] [id number] [place] [address] Mar, [facility] [place] [facility] [address] [id number] [place] [address] Mar, [facility] [place] [facility] [address] [id number] [place] [address] Mar, [facility] [place] [facility] [address] [id number] [place] [address]165 Mar, [facility] [place] [facility] [address] [id number] [place] [address] Mar, [facility] [place] [facility] [address] [id number] [place] [address] Feb, [facility] [place] [facility] [address] [id number] [place] [address] 24 Feb, 2012 [facility] [place] [facility] [address] [id number] [place] [address] 20 Feb, 2012 [facility] [place] [facility] [address] [id number] [place] [address] 11 Feb, 2012 [facility] [place] [facility] [address] [id number] [place] [address] Jan, [facility] [place] [facility] [address] [id number] [place] [address] Jan, [facility] [place] [facility] [address] [id number] [place] [address] Jan, [facility] [place] [facility] [address] [id number] [place] [address] 24[address] Jan, [facility] [place] [facility] [address] [id number] [place] [address] 1010 Jan, [facility] [place] [facility] [address] [id number] [place] [address] 38[address] Jan, [facility] [place] [facility] [address] [id number] [place] [address] Dec, [facility] [place] [facility] [address] [id number] [place] [address] Dec, [facility] [place] [facility] [address] [id number] [place] [address] Dec, [facility] [place] [facility] [address] [id number] [place] [address] Dec, [facility] [place] [facility] [address] [id number] [place] [address] 1993 Dec, [facility] [place] [facility] [address] [id number] [place] [address] Dec, [facility] [place] [facility] [address] [id number] [place] [address] 4[address] Dec, [facility] [place] [facility] [address] [id number] [place] [address] 8446 Dec, [facility] [place] [facility] [address] [id number] [place] [address] 5661 Nov, [facility] [place] [facility] [address] [id number] [place] [address] 8686 Nov, [facility] [place] [facility] [address] [id number] [place] [address] Nov, [facility] [place] [facility] [address] [id number] [place] [address] 07 Nov, 2011 [facility] [address] [id number] [place] [address] October, [facility] [address] [id number] [place] [address] October, [facility] [address] [id number] [place] [address] Sep, [facility] [address] [id number] [place] [address] Sep, [facility] [address] [id number] [place] [address]- [address]36 27 Aug, 2011 [facility] [address] [id number] [place] [address] 16 Aug, 2011 [facility] [address] [id number] [place] [address] Aug, [facility] [address] [id number] [place] [address] 07 Aug, 2011 [facility] [address] [id number] [place] [address]- [address]86 05 Aug, 2011 [facility] [address] [id number] [place] [address]36 08 Jul, 2011 [facility] [place] [facility] [address] [id number] [place] [address]46 Jul, [facility] [address] [id number] [place] [address] Jul, [facility] [place] [facility] [address] [id number] [place] [address]- 2546 Jul, [facility] [address] [id number] [place] [address] 2546 Jun, [facility] [place] [facility] [address] [id number] [place] [address] Jun, [facility] [place] [facility] [address] [id number] [place] [address] 4633 Jun, [facility] [place] [facility] [address] [id number] [place] [address] 3824 Jun, [facility] [place] [facility] [address] [id number] [place] [address]- 8938 Jun, [facility] [place] [facility] [address] [id number] [place] [address]- 7599 May, [facility] [place] [facility] [address] [id number] [place] [address] 4085 May, [facility] [place] [facility] [address] [id number] [place] [address] 5414 May, [facility] [place] [facility] [address] [id number] [place] [address]- 6[address] May, [facility] [place] [facility] [address] [id number] [place] [address]- 0868 May, [facility] [place] [facility] [address] [id number] [place] [address] 7663 May, [facility] [place] [facility] [address] [id number], [place] [address] Apr, [facility] [place] [facility] [address] [id number], [place] [address] Apr, [facility] [place] [facility] [address] [id number], [place] [address]- [address] Mar, [facility] [place] [facility] [address] [id number] [place] [address] 0756 Mar, [facility] [place] [facility] [address] [id number], [place] [address] 74[address] October, [facility] [place] [facility] [address] [id number] [place] [address] 45[address] May, [facility] [place] [facility] [address] [id number], [place] [address] Apr, [facility] [address] [id number] [address] Jul, [facility] [address] [id number], [place] [address] May, [facility] [id number] [address] [address] May, [facility] [id number], [place] [address] May, [facility] [id number], [place] [address] Apr, [facility] [id number], [place] [address] 55[address] Apr, [facility] [id number], [place] [address] 9842 Mar, [facility] [address] [id number], [place] [address] Jan, [facility] [address] [id number] [address] Nov, IMMUNIZATIONS No Known Immunizations SOCIAL HISTORY Never Assessed REASON FOR VISIT Medication request PLAN OF CARE VITAL SIGNS MEDICATIONS Medication Instructions Dosage Frequency Start Date End Date Duration Status Nitrofurantoin Macrocrystal 100 MG Orally twice a day 1 capsule with food or milk 12May, May, 10 days Active RESULTS No Results PROCEDURES No [...]
--- OUTSIDE RECORDS SUMMARY | 2018-02-19 21:43 | XMS REPORT ---
Author Author VILLANUEVADIANE Davis Organization [facility] Address [address] [place] [address] Care Team Providers Care Ux Developer Name Role Phone DIANE VILLANUEVA Unavailable PROBLEMS Type Condition ICD9-CM Code QQU16-YX Code Onset Dates Condition Status SNOMED Code Problem History of abnormal cervical Pap smear Z87.898 Active 844914661 Problem Thoracogenic scoliosis of thoracolumbar region M41.35 Active 30365711 Problem Uncontrolled type 2 diabetes mellitus without complication, without long-term current use of insulin E11.65 Active 614403538 Problem Diabetes type 2, controlled E11.9 Active 98820574 Problem Thyroid nodule E04.1 Active 975332117 Problem History of colon polyps Z86.010 Active 354537006 Problem Other iron deficiency anemia D50.8 Active 18149202 Problem Iron deficiency anemia due to chronic blood loss D50.0 Active 390890295 Problem Screening breast examination Z12.39 Active 559983540 Problem Allergic rhinitis, unspecified allergic rhinitis trigger, unspecified rhinitis seasonality J30.9 Active 97461490 Problem Controlled type 2 diabetes mellitus without complication, without long -term current use of insulin E11.9 Active 718225524 Problem Other chronic pain G89.29 Active 23056353 ALLERGIES Substance Reaction Event Type Date Status Diclofenac rash Drug Allergy Mar, Active Invokana swelling Drug Allergy Mar, Active Trilipix Unknown Drug Allergy Mar, Active Simcor chest pain, due to high doses of niacin in the simcor Drug Allergy Mar, Active Meloxicam elevated BG, fluid retention Drug Allergy Mar, Active Hydrochlorothiazide Unknown Drug Allergy Mar, Active Dimetapp Maximum Strength Unknown Drug Allergy Mar, Active BusPIRone HCl dizziness Drug Allergy Mar, Active Augmentin Unknown Drug Allergy Mar, Active ENCOUNTERS Encounter Location Date Diagnosis [facility] [address] [facility] [id number] [address] Dec, [facility] [address], [place] [address] October, Diabetes type 2, controlled E11.9 and Acute cystitis without hematuria N30.00 [facility] [address], [place] [address] 65[address] October, [facility] [id number] [place] [address] 94502- 0835 October, [facility] [id number] [place] [address] 89030- 6898 October, [facility] [id number] [place] [address] 93974- 9664 October, Other chronic pain G89.29 [facility] [id number] [place] [address] 62274- 4723 Sep, Diabetes type 2, controlled E11.9 [facility] [address], [place] [address] Sep, [facility] [id number] [place] [address] 32192- 8367 Sep, Diabetes type 2, controlled E11.9 [facility] [address], [place] [address] 6[address] Sep, Other chronic pain G89.29 [facility] [address], [place] [address] 2259 Sep, Other iron deficiency anemia D50.8 [facility] [address], [place] [address] 0797 12 Sep, 2017 Other iron deficiency anemia D50.8 [facility] [address], [place] [address]- 7256 Sep, Iron deficiency anemia due to chronic blood loss D50.0 and Dysuria R30.0 [facility] [address] [place] [address] 30379- 6504 Sep, Dysuria R30.0 [facility] [address], [place] [address]- 3678 Sep, Iron deficiency anemia due to chronic blood loss D50.0 [facility] [address] [id number], [place] [address] 6[address] Sep, [facility] [id number] [place] [address] 60030- 1024 Sep, Controlled type 2 diabetes mellitus without complication, without long-term current use of insulin E11.9 ; Leg cramps R25.2 ; Low back pain M54.5 and Other chronic pain G89.29 [facility] [id number] [place] [address] 29399- 5684 Sep, Controlled type 2 diabetes mellitus without complication, without long-term current use of insulin E11.9 ; Low back pain M54.5 ; Other chronic pain G89.29 and Leg cramps R25.2 [facility] [address] [place] [address] 46086- 5849 Aug, Other chronic pain G89.29 [facility] [id number] [place] [address] 52897- 1155 Jul, Other chronic pain G89.29 [facility] [address], [place] [address] 2637 16 Jul, 2017 Pneumonia of left lower lobe due to infectious organism J18.1 [facility] [address], [place] [address] 12 Jul, 2017 Dysuria R30.0 ; Cough in adult patient R05 and Pneumonia of left lower lobe due to infectious organism J18.1 [facility] [address], [place] [address]- 4837 08 Jul, 2017 [facility] [id number] [place] [address] 48640- 1105 Jun, Other chronic pain G89.29 [facility] [address] [place] [address] 00530- 8509 Jun, [facility] [id number] [place] [address] 16034- 6918 Jun, Diabetes type 2, controlled E11.9 ; Back muscle spasm M62.830 and Other chronic pain G89.29 [facility] [id number] [place] [address] 71136- 6465 Jun, Screening breast examination Z12.31 [facility] [id number] [place] [address] 36255- 4950 May, Other chronic pain G89.29 [facility] [id number] [place] [address] 03543- 2998 May, [facility] [id number] [place] [address] 68305- 2724 May, UTI (urinary tract infection) N39.0 [facility] [id number] [place] [address] 03445- 6832 May, Dysuria R30.0 [facility] [id number] [place] [address] 46855- 8341 May, Dysuria R30.0 [facility] [id number] [place] [address] 33916- 2575 May, Diabetes type 2, controlled E11.9 ; 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 [address] [place] [address] 22829 -5341 Mar, Paronychia of great toe, right L03.031 and Dysuria R30.0 [facility] [address] [place] [address] 55289- 8363 Mar, Diabetes type 2, controlled E11.9 [facility] [id number], [place] [address] 7939 28 Feb, 2017 Diabetes type 2, controlled E11.9 [facility] [address] [id number] [address] 13 Feb, 2017 Dental examination Z01.20 [facility] [address], [place] [address] 11 Feb, 2017 Diabetes type 2, controlled E11.9 [facility] [address] [id number], [place] [address]- 9613 07 Feb, 2017 Diabetes type 2, controlled E11.9 [facility] [address], [place] [address]- 2040 14 Jan, 2017 Diabetes type 2, controlled E11.9 [facility] [address], [place] [address]- 5449 Dec, Diabetes type 2, controlled E11.9 [facility] [address], [place] [address]- 3509 Dec, Diabetes type 2, controlled E11.9 [facility] [address], [place] [address]- 1151 Nov, Diabetes type 2, controlled E11.9 [facility] [address], [place] [address]- 9114 Nov, Diabetes type 2, controlled E11.9 [facility] [address], [place] [address]- 3202 Nov, Diabetes type 2, controlled E11.9 [facility] [address], [place] [address]- 2377 Nov, Diabetes type 2, controlled E11.9 [facility] [address], [place] [address]- 5882 14 Nov, 2016 Diabetes type 2, controlled E11.9 [facility] [address] [id number], [place] [address]- 5732 Nov, Diabetes type 2, controlled E11.9 [facility] [id number] [place] [address] 50244- 3822 October, Pain in unspecified shoulder M25.519 [facility] [id number] [place] [address] 13625- 2216 October, Diabetes type 2, controlled E11.9 and Cellulitis of right lower extremity L03.115 [facility] [id number] [place] [address] 40325- 4581 October, Pain in unspecified shoulder M25.519 [facility] [id number] [place] [address] 16085- 9460 Sep, Diabetes type 2, controlled E11.9 [facility] [id number] [place] [address] 79288- 1352 Aug, Pain in unspecified shoulder M25.519 [facility] [id number] [place] [address] 12178- 2987 Aug, Diabetes type 2, controlled E11.9 [facility] [id number] [place] [address] 92318- 2349 Aug, Diabetes type 2, controlled E11.9 ; Dark urine R82.99 and Localized edema R60.0 [facility] [id number] [place] [address] 69139- 9419 Aug, Pain in unspecified shoulder M25.519 [facility] [address] [place] [address] 87134- 3757 Jul, Pain in unspecified shoulder M25.519 [facility] [address] [place] [address] 64282- 9656 Jul, [facility] [address] [place] [address] 85120- 5826 Jul, Diabetes type 2, controlled E11.9 and 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 [facility] [id number] [place] [address] 65611- 6221 19 Jun, 2016 Diabetes type 2, controlled E11.9 [facility] [id number] [place] [address] 82928- 6850 18 Jun, 2016 Screening breast examination Z12.39 and Allergic rhinitis, unspecified allergic rhinitis trigger, unspecified rhinitis seasonality J30.9 [facility] [address] 14445- 9791 10 Jun, 2016 Pain in unspecified shoulder M25.519 [place] [address] 25902- 5191 May, [facility] [address] 83564- 0023 May, Pain in unspecified shoulder M25.519 [facility] [address] 72444- 3070 05 May, 2016 Thoracogenic scoliosis of thoracolumbar region M41.35 ; Low back pain M54.5 ; Other chronic pain G89.29 and Uncontrolled type 2 diabetes mellitus without complication, without long-term current use of insulin E11.65 [facility] [id number] [place] [address] 51037- 3641 28 Apr, 2016 [place] [id number] [place] [address] 75347- 4082 Apr, [facility] [address] 24055- 6341 04 Apr, 2016 History of type 2 diabetes mellitus Z86.39 and Encounter for immunization Z23 [place] [address] 17061- 8615 Mar, [facility] [id number] [place] [address] 49854- 0644 Mar, [facility] [address] 37418- 3877 Feb, [facility] [address] [facility] [id number], [place] [address]- 7413 Jan, [facility] [address] [facility] [id number], [place] [address]- 3240 Jan, [facility] [address] [facility] [id number], [place] [address]- 2754 Dec, [facility] [address] [facility] [id number], [place] [address] Dec, Sore throat J02.9 and Allergic rhinitis, unspecified allergic rhinitis type J30.9 [facility] [address] [facility] [id number], [place] [address]- 8669 Dec, Diabetes type 2, controlled E11.9 [facility] [address], [place] [address]- 6653 Nov, [facility] [address], [place] [address]- 5927 Nov, [facility] [id number], [place] [address]- 7364 October, [facility] [address], [place] [address]- 9416 October, [facility] [address] [facility] [id number], [place] [address]- 3519 Sep, [facility] [id number], [place] [address]- 6337 Aug, [facility] [address] [facility] [id number], [place] [address]- 6523 Aug, Diabetes type 2, controlled E11.9 ; UTI (urinary tract infection) N39.0 and Bacterial infection A49.9 [facility] [address] [facility] [id number], [place] [address]- 3716 Jul, [facility] [address] [id number], [place] [address]- 8817 Jul, [facility] [address] [place] [address] 62021- 2255 Jul, Pharyngitis J02.9 and Seborrheic keratoses L82.1 [facility] [address] [place] [address] 14824- 4777 Jun, [facility] [address] 96666- 0440 May, [facility] [id number] [place] [address] 06433- 6595 May, Skin tags, multiple acquired L91.8 ; Seborrheic keratoses L82.1 and Diabetes type 2, controlled E11.9 [facility] [id number] [place] [address] 37757- 5578 May, Well woman exam Z01.419 ; Papanicolaou [...] Other fatigue R53.83 and Other hemorrhoids K64.8 [facility] [address] [place] [address] 96423- 5110 May, [facility] [address] [place] [address] 66447- 4168 May, [facility] [id number] [place] [address] 16048- 2020 Apr, Seborrheic keratosis L82.1 and Diabetes type 2, controlled E11.9 [facility] [address] [place] [address] 59408- 5888 Apr, Seborrheic keratosis L82.1 and Diabetes type 2, controlled E11.9 [facility] [id number] [place] [address] 23628- 5557 Mar, [facility] [id number] [place] [address] 09624- 5458 Mar, [facility] [id number] [place] [address] 96354- 7731 Mar, Nevoid hyperpigmentation L81.9 ; Encounter for immunization Z23 ; Skin tags, multiple acquired L91.8 and Seborrheic keratoses L82.1 [facility] [id number] [place] [address] 80640- 1109 Feb, [facility] [id number] [place] [address] 70175- 2121 Feb, [facility] [place] [address] 01579- 3156 Feb, [facility] [id number] [place] [address] 25659- 4663 Feb, Diabetes 250.00 ; Tinea corporis 110.5 and Shoulder pain, left 719.41 [facility] [id number] [place] [address] 45887- 2925 Jan, [facility] [id number] [place] [address] 76381- 9574 Dec, [facility] [id number] [place] [address] 78173- 5113 Dec, [facility] [id number] [place] [address] 15899- 2272 Dec, Seborrheic keratoses 702.19 ; Diabetes 250.00 and Hypoglycemia 251.2 [facility] [id number] [place] [address] 53638- 9160 Nov, [facility] [address] 10054- 7342 Nov, Abnormal mammogram 793.80 [facility] [address] [place] [address]- 2130 October, Diabetes 250.00 and Colon polyp 211.3 [facility] [address] [id number] [place] [address]- 1426 Sep, [facility] [address] [facility] [id number] [place] [address]- 3806 Sep, [facility] [address] [facility] [id number] [place] [address]- 2169 Sep, [facility] [address] [facility] [id number] [place] [address], [place] [address]- 0715 Aug, [facility] [address] [facility] [id number] [place] [address]- 3226 Aug, [facility] [address] [place] [address]- 9746 Jul, [facility] [address] [id number], [place] [address]- 8560 Jul, [facility] [address] [place] [address]- 7272 Jun, [facility] [address] [id number], [place] [address]- 6096 Jun, [facility] [address], [place] [address]- 5666 Jun, [facility] [address] [facility] [id number], [place] [address]- 7736 Jun, [facility] [address], [place] [address]- 7596 Jun, [facility] [address] [facility] [id number], [place] [address]- 9816 Jun, [facility] [address] [id number], [place] [address]- 9311 May, [facility] [place] [facility] [address] [id number] [place] [address]- 6376 May, [facility] [place] [facility] [address] [id number] [place] [address]- 3588 Apr, [facility] [place] [facility] [address] [id number] [place] [address]- 3497 Apr, [facility] [place] [facility] [address] [id number] [place] [address]- 9242 Apr, [facility] [place] [facility] [address] [id number] [place] [address]- 6235 Apr, [facility] [place] [facility] [address] [id number] [place] [address]- 9357 Apr, [facility] [place] [facility] [address] [id number] [place] [address]- 5072 Apr, [facility] [place] [facility] [address] [id number] [place] [address]- 7287 Apr, [facility] [place] [facility] [address] [id number] [place] [address]- 4021 Apr, [facility] [place] [facility] [address] [id number], [place] [address]- 7968 Apr, [facility] [place] [facility] [address] [id number], [place] [address]- 8502 Apr, [facility] [place] [facility] [address] [id number], [place] [address]- 6937 Mar, [facility] [place] [facility] [address] [id number] [place] [address]- 8673 Mar, [facility] [place] [facility] [address] [id number] [place] [address]- 0138 Mar, [facility] [place] [facility] [address] [id number], [place] [address]- 9668 Mar, [facility] [place] [facility] [address] [id number], [place] [address]- 4048 Mar, [facility] [place] [facility] [address] [id number] [place] [address]- 0050 Mar, [facility] [place] [facility] [address] [id number] [place] [address]- 2953 Mar, [facility] [place] [facility] [address] [id number] [place] [address]- 6854 Mar, [facility] [place] [facility] [address] [id number] [place] [address]- 7257 Feb, [facility] [place] [facility] [address] [id number] [place] [address]- 1346 Feb, [facility] [place] [facility] [address] [id number] [place] [address]- 5802 Feb, [facility] [place] [facility] [address] [id number] [place] [address]- 9170 Feb, [facility] [place] [facility] [address] [id number] [place] [address]- 3791 Jan, [facility] [place] [facility] [address] [id number] [place] [address]- 2059 Jan, [facility] [place] [facility] [address] [id number] [place] [address]- 5909 Dec, [facility] [place] [facility] [address] [id number], [place] [address]- 6672 Dec, [facility] [place] [facility] [address] [id number], [place] [address]- 8795 Nov, [facility] [place] [facility] [address] [id number] [place] [address]- 6080 Nov, [facility] [place] [facility] [address] [id number] [place] [address]- 4874 Nov, [facility] [place] [facility] [address] [id number] [place] [address]- 8696 Nov, [facility] [place] [facility] [address] [id number] [place] [address]- 2512 October, [facility] [place] [facility] [address] [id number] [place] [address]- 2810 October, [facility] [place] [facility] [address] [id number] [place] [address]- 2996 October, [facility] [place] [facility] [address] [id number] [place] [address]- 5583 October, [facility] [place] [facility] [address] [id number] [place] [address]- 2174 October, [facility] [place] [facility] [address] [id number] [place] [address]- 6458 October, [facility] [place] [facility] [address] [id number] [place] [address]- 8293 October, [facility] [place] [facility] [address] [id number] [place] [address]- 5895 October, [facility] [place] [facility] [address] [id number] [place] [address]- 5379 Aug, [facility] [place] [facility] [address] [id number] [place] [address]- 5378 Aug, [facility] [place] [facility] [address] [id number] [place] [address]- 2801 Jul, [facility] [place] [facility] [address] [id number] [place] [address]- 5706 Jul, [facility] [place] [facility] [address] [id number] [place] [address]- 8003 Jul, [facility] [place] [facility] [address] [id number] [place] [address]- 7006 Jul, [facility] [place] [facility] [address] [id number] [place] [address]- 4105 Jul, [facility] [place] [facility] [address] [id number] [place] [address] Jun, [facility] [address] [id number] [place] [address] Jun, [facility] [place] [facility] [address] [id number] [place] [address] May, [facility] [place] [facility] [address] [id number] [place] [address] May, [facility] [place] [facility] [address] [id number] [place] [address] Apr, [facility] [place] [facility] [address] [id number] [place] [address] Apr, [facility] [place] [facility] [address] [id number] [place] [address] Mar, [facility] [place] [facility] [address] [id number] [place] [address] Mar, [facility] [place] [facility] [address] [id number] [place] [address] Mar, [facility] [place] [facility] [address] [id number] [place] [address] Feb, [facility] [place] [facility] [address] [id number] [place] [address] Feb, [facility] [place] [facility] [address] [id number], [place] [address] Feb, [facility] [place] [facility] [address] [id number], [place] [address] Feb, [facility] [place] [facility] [address] [id number] [place] [address] Feb, [facility] [place] [facility] [address] [id number] [place] [address] Jan, [facility] [place] [facility] [address] [id number] [place] [address] Dec, [facility] [place] [facility] [address] [id number] [place] [address] 06 Nov, 2012 [facility] [address] [id number] [place] [address] October, [facility] [address] [id number] [place] [address] Sep, [facility] [address] [id number] [place] [address] Aug, [facility] [address] [id number] [place] [address] Aug, [facility] [address] [id number] [place] [address] Aug, [facility] [address] [id number] [place] [address] May, [facility] [address] [id number] [place] [address] 12 May, 2012 [facility] [address] [id number] [place] [address] 12 May, 2012 [facility] [address] [id number] [place] [address] May, [facility] [address] [facility] [id number] [place] [address] 11 May, 2012 [facility] [address] [id number] [place] [address] 16 Apr, 2012 [facility] [address] [id number] [place] [address] 16 Apr, 2012 [facility] [address] [id number] [place] [address] 14 Apr, 2012 [facility] [address] [id number] [place] [address] 14 Apr, 2012 [facility] [address] [id number] [place] [address] Apr, [facility] [place] [facility] [address] [id number] [place] [address] Apr, [facility] [place] [facility] [address] [id number] [place] [address] Apr, [facility] [place] [facility] [address] [id number] [place] [address] Apr, [facility] [place] [facility] [address] [id number] [place] [address] Mar, [facility] [place] [facility] [address] [id number] [place] [address] Mar, [facility] [place] [facility] [address] [id number] [place] [address] Mar, [facility] [place] [facility] [address] [facility] [id number] [place] [address] Mar, [facility] [place] [facility] [address] [id number], [place] [address] Mar, [facility] [place] [facility] [address] [facility] [id number] [place] [address] Mar, [facility] [place] [facility] [address] [facility] [id number], [place] [address] Mar, [facility] [place] [facility] [address] [facility] [id number], [place] [address] 28 Feb, 2012 [facility] [place] [facility] [address] [id number], [place] [address] 24 Feb, 2012 [facility] [place] [facility] [address] [id number] [place] [address] 4420 20 Feb, 2012 [facility] [place] [facility] [address] [id number], [place] [address] 11 Feb, 2012 [facility] [place] [facility] [address] [facility] [id number], [place] [address] Jan, [facility] [place] [facility] [address] [id number], [place] [address] Jan, [facility] [place] [facility] [address] [id number] [place] [address] Jan, [facility] [place] [facility] [address] [id number] [place] [address] 1573 Jan, [facility] [place] [facility] [address] [id number] [place] [address] 8716 Jan, [facility] [place] [facility] [address] [id number] [place] [address]7 Jan, [facility] [place] [facility] [address] [id number] [place] [address]99 Dec, [facility] [place] [facility] [address] [id number] [place] [address]66 Dec, [facility] [place] [facility] [address] [id number] [place] [address]661 Dec, [facility] [place] [facility] [address] [id number] [place] [address]608 Dec, [facility] [place] [facility] [address] [id number] [place] [address] Dec, [facility] [place] [facility] [address] [id number] [place] [address] 1418 Dec, [facility] [place] [facility] [address] [id number] [place] [address]11 Dec, [facility] [place] [facility] [address] [id number] [place] [address] Dec, [facility] [place] [facility] [address] [id number] [place] [address] Nov, [facility] [place] [facility] [address] [id number] [place] [address] Nov, [facility] [place] [facility] [address] [id number] [place] [address]15 Nov, [facility] [place] [facility] [address] [id number] [place] [address] 07 Nov, 2011 [facility] [place] [facility] [address] [id number] [place] [address] 1470 October, [facility] [place] [facility] [address] [id number] [place] [address] 67[address] October, [facility] [place] [facility] [address] [id number] [place] [address] Sep, [facility] [place] [facility] [address] [id number] [place] [address] 8332 Sep, [facility] [place] [facility] [address] [id number] [place] [address] 27 Aug, 2011 [facility] [place] [facility] [address] [id number] [place] [address] 16 Aug, 2011 [facility] [place] [facility] [address] [id number] [place] [address] Aug, [facility] [place] [facility] [address] [id number] [place] [address] Aug, [facility] [place] [facility] [address] [id number] [place] [address] 1563 05 Aug, 2011 [facility] [place] [facility] [address] [id number] [place] [address] 08 Jul, 2011 [facility] [place] [facility] [address] [id number] [place] [address] 2564 Jul, [facility] [place] [facility] [address] [id number] [place] [address]95 Jul, [facility] [place] [facility] [address] [id number] [place] [address] 9795 Jul, [facility] [place] [facility] [address] [id number] [place] [address] 2700 Jun, [facility] [place] [facility] [address] [id number], [place] [address] Jun, [facility] [address] [id number] [place] [address] 5662 Jun, [facility] [place] [facility] [address] [id number] [place] [address] 0075 Jun, [facility] [place] [facility] [address] [id number] [place] [address]- 9207 Jun, [facility] [place] [facility] [address] [id number] [place] [address] 9320 May, [facility] [place] [facility] [address] [id number] [place] [address]576 May, [facility] [place] [facility] [address] [id number] [place] [address] 3627 May, [facility] [place] [facility] [address] [id number] [place] [address] 2497 May, [facility] [place] [facility] [address] [id number] [place] [address] May, [facility] [place] [facility] [address] [id number] [place] [address] 6262 May, [facility] [place] [facility] [address] [id number] [place] [address] 8461 Apr, [facility] [place] [facility] [address] [id number], [place] [address]64 Apr, [facility] [place] [facility] [address] [id number], [place] [address] Mar, [facility] [place] [facility] [address] [id number] [place] [address] 7724 Mar, [facility] [place] [facility] [address] [id number], [place] [address] October, [facility] [place] [facility] [address] [id number] [place] [address] 8730 May, [facility] [place] [facility] [address] [id number], [place] [address] Apr, [facility] [address] [id number], [place] [address] Jul, [facility] [id number], [place] [address] 118[address] May, [facility] [id number], [place] [address] 4717 May, [facility] [id number], [place] [address]2 May, [facility] [id number], [place] [address] 1100 Apr, [facility] [id number], [place] [address] Apr, [facility] [id number], [place] [address] 4254 Mar, [facility] [address] [id number], [place] [address] 2604 Jan, [facility] [id number] [address] [address] Nov, IMMUNIZATIONS No Known Immunizations SOCIAL HISTORY Never Assessed REASON FOR VISIT toe infection right big toe PLAN OF CARE Activity Details Follow Up prn Reason: VITAL SIGNS Height 69 in 2017-04-18 Weight 250.6 lbs 2017-04-18 Temperature 98.2 degrees Fahrenheit 2017-04-18 Heart Rate 82 bpm 2017-04-18 Respiratory Rate 18 2017-04-18 BMI 37.00 kg/m2 2017-04-18 Blood pressure systolic 124 mmHg 2017-04-18 Blood pressure diastolic 70 mmHg 2017-04-18 MEDICATIONS Medication Instructions Dosage Frequency Start Date End Date Duration Status Blood Pressure Cuff Dx: Hypertension Mar, Active GlipiZIDE 10 MG TAKE TWO TABLETS BY MOUTH TWICE DAILY 30 Active Lasix 20 mg Orally Once a day 1 tablet 24h Aug, 07 days Active Aspirin 81 TAKE ONE TABLET BY MOUTH DAILY 30 Active Losartan Potassium 50 MG TAKE ONE TABLET BY MOUTH ONCE DAILY 30 Active Atorvastatin Calcium 40 MG TAKE ONE TABLET BY MOUTH ONCE DAILY 30 Active GlipiZIDE 10 2 tablets 12h Active Victoza 18 MG/3ML Subcutaneous Once a day 1.2 mg 24h October, Active FreeStyle Lite Test - In Vitro 2 times a day test blood sugar 12h Sep, Active Amlodipine Besylate 10 mg 1 tablet 24h 30 Active C-PAP Machine Active Flonase 50 MCG/ACT Nasally Once a day 1 spray in each nostril 24h Active Vitamin D 1000 UNIT Orally Once a day 1 tablet 24h Active Montelukast Sodium 10 MG Orally Once a day 1 tablet in the evening 24h Active Pen Crane 31G X 6 MM use with victoza pens Nov, Active Nebulizer - Active Zyrtec Allergy 10 1 tablet 24h Active [place]water 7.5-325 MG Orally 4 times a day 1 tablet as needed 6h Mar, 28 days Active Klor-Con 10 10 MEQ Orally Once a day 1 tablet with food 24h Active MetFORMIN HCl ER 500 MG Orally twice a day 2 tablets 12h 30 Active Clindamycin HCl 300 MG Orally 2 times a day 1 capsule 12h 30 Mar, 2017 Apr, 10 days Active Ipratropium-Albuterol 0.5-2.5 (3) MG/3ML Inhalation every 6 hrs 3 ml 6h Active RESULTS No Results PROCEDURES Procedure Date Ordered Result Body Site URINALYSIS, AUTO, W/O SCOPE Apr 18, 2017 [facility] Apr 18, 2017 [facility] VISIT ESTABLISHED PATIENT Apr 18, 2017 INSTRUCTIONS MEDICATIONS ADMINISTERED No Known Medications [...]
--- OUTSIDE RECORDS SUMMARY | 2018-02-19 21:44 | XMS REPORT ---
Author Author BOOGIE ARAUJO [facility] Address [address] [place] [address] Care Team Providers Care Environmental Field Services Technician Name Role Phone BOOGIE ARAUJO Unavailable PROBLEMS Type Condition ICD9-CM Code RTP26-FN Code Onset Dates Condition Status SNOMED Code Problem History of abnormal cervical Pap smear Z87.898 Active 307022174 Problem Thoracogenic scoliosis of thoracolumbar region M41.35 Active 13671134 Problem Uncontrolled type 2 diabetes mellitus without complication, without long-term current use of insulin E11.65 Active 063140369 Problem Diabetes type 2, controlled E11.9 Active 36177983 Problem Thyroid nodule E04.1 Active 547281906 Problem History of colon polyps Z86.010 Active 025932213 Problem Other iron deficiency anemia D50.8 Active 74546906 Problem Iron deficiency anemia due to chronic blood loss D50.0 Active 835833295 Problem Screening breast examination Z12.39 Active 665078758 Problem Allergic rhinitis, unspecified allergic rhinitis trigger, unspecified rhinitis seasonality J30.9 Active 13601032 Problem Controlled type 2 diabetes mellitus without complication, without long -term current use of insulin E11.9 Active 036139103 Problem Other chronic pain G89.29 Active 31213058 ALLERGIES No Information ENCOUNTERS Encounter Location Date Diagnosis [facility] [id number] [address] Dec, [facility] [address] [address] October, Diabetes type 2, controlled E11.9 and Acute cystitis without hematuria N30.00 [facility] [id number] [address] October, [facility] [id number] [place] [address] 07912- 1781 October, [facility] [address] [address] October, [facility] [id number] [place] [address] 36674- 9652 October, Other chronic pain G89.29 [facility] [address] [address] Sep, Diabetes type 2, controlled E11.9 [facility] [id number] [place] [address] 50195- 1795 Sep, [facility] [id number] [place] [address] 77291- 8287 Sep, Diabetes type 2, controlled E11.9 [facility] [address] [address] 5[address] Sep, Other chronic pain G89.29 [facility] [address], [place] [address] 6577 Sep, Other iron deficiency anemia D50.8 [facility] [address] [address] 9473 Sep, Other iron deficiency anemia D50.8 [facility] [address] [address] 254 Sep, Iron deficiency anemia due to chronic blood loss D50.0 and Dysuria R30.0 [facility] [address] [address]41 Sep, Dysuria R30.0 [facility] [address] [address] 2548 Sep, Iron deficiency anemia due to chronic blood loss D50.0 [facility] [address], [place] [address] 2546 Sep, [facility] [address] [address] 0096 Sep, Controlled type 2 diabetes mellitus without complication, without long-term current use of insulin E11.9 ; Leg cramps R25.2 ; Low back pain M54.5 and Other chronic pain G89.29 [facility] [id number] [place] [address] 51326- 3333 Sep, Controlled type 2 diabetes mellitus without complication, without long-term current use of insulin E11.9 ; Low back pain M54.5 ; Other chronic pain G89.29 and Leg cramps R25.2 [place] [id number] [place] [address] 90540- 5617 Aug, Other chronic pain G89.29 [place] [id number] [place] [address] 45548- 2280 Jul, Other chronic pain G89.29 [place] [id number] [place] [address] 16282- 0751 16 Jul, 2017 Pneumonia of left lower lobe due to infectious organism J18.1 [facility] [id number] [place] [address] 02937 -2381 12 Jul, 2017 Dysuria R30.0 ; Cough in adult patient R05 and Pneumonia of left lower lobe due to infectious organism J18.1 [facility] [id number] [place] [address] 39524- 1073 08 Jul, 2017 [facility] [id number] [place] [address] 16225- 9288 Jun, Other chronic pain G89.29 [place] [id number] [place] [address] 27529- 4351 Jun, [facility] [address] [address]- 8707 Jun, Diabetes type 2, controlled E11.9 ; Back muscle spasm M62.830 and Other chronic pain G89.29 [facility] [id number] [place] [address] 41885- 4374 09 Anthony, 2018 Screening breast examination Z12.31 [facility] [address], [place] [address] 6113 May, Other chronic pain G89.29 [facility] [address] [place] [address] 54866- 8349 May, [facility] [address] [place] [address] 64848- 5855 May, UTI (urinary tract infection) N39.0 [facility] [address] [place] [address] 75778- 7321 04 May, 2017 Dysuria R30.0 [facility] [id number] [place] [address] 96478- 3782 May, Dysuria R30.0 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 [address] [place] [address] 43306- 5985 Apr, Diabetes type 2, controlled E11.9 [facility] [id number] [place] [address] 70089 -8310 30 Mar, 2017 Paronychia of great toe, right L03.031 and Dysuria R30.0 [facility] [address] [address]- 7116 09 Mar, 2017 Diabetes type 2, controlled E11.9 [facility] [address] [place] [address] 06315- 6549 28 Feb, 2017 Diabetes type 2, controlled E11.9 [facility] [address] [address] 13 Feb, 2017 Dental examination Z01.20 [facility] [address] [place] [address] 27592- 7598 11 Feb, 2017 Diabetes type 2, controlled E11.9 [facility] [address] [facility] [id number] [address] 07 Feb, 2017 Diabetes type 2, controlled E11.9 [facility] [address], [place] [address]- 3356 Jan, Diabetes type 2, controlled E11.9 [facility] [address], [place] [address]- 2603 Dec, Diabetes type 2, controlled E11.9 [facility] [address] [facility] [id number] [place] [address]- 9614 Dec, Diabetes type 2, controlled E11.9 [facility] [address] [address]- 7293 Nov, Diabetes type 2, controlled E11.9 [facility] [address] [address]- 3098 Nov, Diabetes type 2, controlled E11.9 [facility] [address], [place] [address]- 2988 Nov, Diabetes type 2, controlled E11.9 [facility] [address], [place] [address]- 4735 Nov, Diabetes type 2, controlled E11.9 [facility] [address] [address]- 0623 Nov, Diabetes type 2, controlled E11.9 [facility] [address], [place] [address]- 5127 Nov, Diabetes type 2, controlled E11.9 [facility] [address], [place] [address]- 8369 October, Pain in unspecified shoulder M25.519 [facility] [address] [place] [address]- 6746 October, Diabetes type 2, controlled E11.9 and Cellulitis of right lower extremity L03.115 [place] [id number] [place] [address] 16268- 4500 October, Pain in unspecified shoulder M25.519 [place] [id number] [place] [address] 14516- 3872 Sep, Diabetes type 2, controlled E11.9 [place] [id number] [place] [address] 26234- 0715 Aug, Pain in unspecified shoulder M25.519 [place] [id number] [place] [address] 57586- 5486 Aug, Diabetes type 2, controlled E11.9 [place] [address] 18392- 4904 Aug, Diabetes type 2, controlled E11.9 ; Dark urine R82.99 and Localized edema R60.0 [address] [address] 49233- 8350 Aug, Pain in unspecified shoulder M25.519 [place] [id number] [place] [address] 45305- 9208 Jul, Pain in unspecified shoulder M25.519 [place] [id number] [place] [address] 63081- 3133 Jul, [place] [id number] [place] [address] 15930- 5010 Jul, 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 [id number] [place] [address] 25007- 1794 May, [facility] [id number] [place] [address] 01197- 0409 May, Pain in unspecified shoulder M25.519 [facility] [address] 0[address]53- 4926 05 May, 2016 Thoracogenic scoliosis of thoracolumbar region M41.35 ; Low back pain M54.5 ; Other chronic pain G89.29 and Uncontrolled type 2 diabetes mellitus without complication, without long-term current use of insulin E11.65 [facility] [id number] [place] [address] 87304- 8535 Apr, [facility] [address] 11156- 5328 Apr, [facility] [address] 69431- 5522 Apr, History of type 2 diabetes mellitus Z86.39 and Encounter for immunization Z23 [facility] [id number] [place] [address] 95141- 5273 Mar, [facility] [id number] [place] [address] 95238- 2076 Mar, [facility] [id number] [place] [address] 47906- 8217 Feb, [facility] [id number] [place] [address] 40508- 8078 Jan, [facility] [address] 99139- 4141 Jan, [facility] [id number] [place] [address] 99973- 4298 Dec, [facility] [address] 60975 -7546 Dec, Sore throat J02.9 and Allergic rhinitis, unspecified allergic rhinitis type J30.9 [facility] [address], [place] [address]- 7328 Dec, Diabetes type 2, controlled E11.9 [facility] [address] [facility] [id number] [address]- 4848 Nov, [facility] [id number] [place] [address] 53565- 4110 Nov, [facility] [address], [place] [address]- 7811 October, [facility] [id number] [place] [address] 33676- 0372 October, [facility] [address], [place] [address]- 3245 Sep, [facility] [address] [address]- 2121 Aug, [facility] [address], [place] [address]- 9249 Aug, Diabetes type 2, controlled E11.9 ; UTI (urinary tract infection) N39.0 and Bacterial infection A49.9 [facility] [address], [place] [address]- 6215 Jul, [facility] [address], [place] [address]- 4375 Jul, [facility] [id number], [place] [address]- 3658 Jul, Pharyngitis J02.9 and Seborrheic keratoses L82.1 [facility] [id number], [place] [address]- 6325 Jun, [facility] [address], [place] [address]- 0195 May, [place] [id number] [place] [address] 95229- 0172 May, Skin tags, multiple acquired L91.8 ; Seborrheic keratoses L82.1 and Diabetes type 2, controlled E11.9 [id number] [place] [address] 94613- 5518 May, Well woman exam Z01.419 ; Papanicolaou [...] Other fatigue R53.83 and Other hemorrhoids K64.[address] 20234- 6322 May, [address] 22095- 5461 May, [address] 97428- 5153 Apr, Seborrheic keratosis L82.1 and Diabetes type 2, controlled E11.9 [id number] [place] [address] 09677- 4418 Apr, Seborrheic keratosis L82.1 and Diabetes type 2, controlled E11.9 [place] [id number] [place] [address] 26256- 2118 Mar, [address] 44718- 9577 Mar, [address] 73693- 8108 06 Mar, 2015 Nevoid hyperpigmentation L81.9 ; Encounter for immunization Z23 ; Skin tags, multiple acquired L91.8 and Seborrheic keratoses L82.1 [facility] [id number] [address]- 0435 Feb, [facility] [id number] [place] [address] 56297- 7449 Feb, [facility] [id number] [place] [address] 52876- 0277 Feb, [facility] [id number] [place] [address] 10616- 7658 Feb, Diabetes 250.00 ; Tinea corporis 110.5 and Shoulder pain, left 719.41 [facility] [id number] [place] [address] 79824- 2740 Jan, [facility] [id number] [place] [address] 63799- 3264 Dec, [facility] [id number] [place] [address] 98677- 4533 Dec, [facility] [id number] [place] [address] 61738- 2708 Dec, Seborrheic keratoses 702.19 ; Diabetes 250.00 and Hypoglycemia 251.2 [facility] [address] [address]- 1225 Nov, [facility] [id number] [place] [address] 25487- 6922 Nov, Abnormal mammogram 793.80 [facility] [id number] [place] [address] 70596- 5062 October, Diabetes 250.00 and Colon polyp 211.3 [facility] [id number] [place] [address] 93898- 3704 Sep, [facility] [address] [place] [address] 38862- 3397 Sep, [facility] [id number] [place] [address]- 2954 Sep, [facility] [address] [id number] [place] [address]- 7420 Aug, [facility] [place] [facility] [address] [id number] [place] [address]- 4450 Aug, [facility] [address] [id number] [place] [address]- 5082 Jul, [facility] [place] [facility] [address] [id number] [place] [address]- 9243 Jul, [facility] [address] [id number] [place] [address]- 8435 Jun, [facility] [place] [facility] [address] [id number] [place] [address]- 4208 Jun, [facility] [address] [id number] [place] [address]- 9291 Jun, [facility] [address] [id number] [place] [address]- 0711 Jun, [facility] [place] [facility] [address] [id number] [place] [address]- 2442 Jun, [facility] [address] [facility] [id number] [place] [address]- 2591 Jun, [facility] [address] [id number] [place] [address]- 5331 May, [facility] [place] [facility] [address] [id number] [place] [address]- 7481 May, [facility] [place] [facility] [address] [id number] [place] [address]- 3966 Apr, [facility] [place] [facility] [address] [id number] [place] [address]- 5200 Apr, [facility] [place] [facility] [address] [id number] [place] 2531 Apr, [facility] [place] [facility] [address] [id number] [place] [address]- 2513 Apr, [facility] [place] [facility] [address] [id number] [place] [address]- 3484 Apr, [facility] [place] [facility] [address] [id number] [place] [address]- 5294 Apr, [facility] [place] [facility] [address] [id number] [place] [address]- 5854 Apr, [facility] [place] [facility] [address] [id number] [place] [address]- 5599 Apr, [facility] [place] [facility] [address] [id number] [place] [address]- 2955 Apr, [facility] [place] [facility] [address] [id number] [place] [address]- 6777 Apr, [facility] [place] [facility] [address] [id number] [place] [address]- 8385 Mar, [facility] [place] [facility] [address] [id number] [place] [address]- 2181 Mar, [facility] [place] [facility] [address] [id number], [place] [address]- 1326 Mar, [facility] [place] [facility] [address] [id number], [place] [address] Mar, [facility] [place] [facility] [address] [id number], [place] [address] Mar, [facility] [place] [facility] [address] [id number] [place] [address] Mar, [facility] [place] [facility] [address] [id number], [place] [address] Mar, [facility] [place] [facility] [address] [id number], [place] [address] Mar, [facility] [place] [facility] [address] [id number], [place] [address] Feb, [facility] [place] [facility] [address] [id number] [place] [address] Feb, [facility] [place] [facility] [address] [id number] [place] [address] Feb, [facility] [place] [facility] [address] [id number] [place] [address] Feb, [facility] [place] [facility] [address] [id number] [place] [address] Jan, [facility] [place] [facility] [address] [id number] [place] [address] Jan, [facility] [place] [facility] [address] [id number] [place] [address] Dec, [facility] [place] [facility] [address] [id number] [place] [address] Dec, [facility] [place] [facility] [address] [id number] [place] [address] Nov, [facility] [place] [facility] [address] [id number] [place] [address] Nov, [facility] [place] [facility] [address] [id number] [place] [address] Nov, [facility] [place] [facility] [address] [id number] [place] [address]- [address] Nov, [facility] [place] [facility] [address] [id number] [place] [address] October, [facility] [place] [facility] [address] [id number] [place] [address]- [address] October, [facility] [place] [facility] [address] [id number] [place] [address]- [address]096 October, [facility] [place] [facility] [address] [id number] [place] [address]- [address] October, [facility] [place] [facility] [address] [id number] [place] [address]- [address] October, [facility] [place] [facility] [address] [id number] [place] [address] October, [facility] [place] [facility] [address] [id number] [place] [address] October, [facility] [place] [facility] [address] [id number] [place] [address] October, [facility] [place] [facility] [address] [id number] [place] [address] Aug, [facility] [place] [facility] [address] [id number] [place] [address] Aug, [facility] [place] [facility] [address] [id number] [place] [address] Jul, [facility] [place] [facility] [address] [id number] [place] [address] Jul, [facility] [place] [facility] [address] [id number] [place] [address] Jul, [facility] [place] [facility] [address] [id number] [place] [address] Jul, [facility] [place] [facility] [address] [id number] [place] [address] Jul, [facility] [place] [facility] [address] [id number] [place] [address] Jun, [facility] [place] [facility] [address] [id number] [place] [address] Jun, [facility] [place] [facility] [address] [id number] [place] [address] May, [facility] [place] [facility] [address] [id number] [place] [address] May, [facility] [place] [facility] [address] [id number], [place] [address] Apr, [facility] [address] [id number] [place] [address] Apr, [facility] [place] [facility] [address] [id number] [place] [address] Mar, [facility] [place] [facility] [address] [id number] [place] [address]- [address] Mar, [facility] [place] [facility] [address] [address] [id number] [place] [address] Mar, [facility] [place] [facility] [address] [id number] [place] [address] Feb, [facility] [place] [facility] [address] [id number] [place] [address] Feb, [facility] [place] [facility] [address] [id number] [place] [address] Feb, [facility] [place] [facility] [address] [id number] [place] [address] Feb, [facility] [place] [facility] [address] [id number] [place] [address] Feb, [facility] [place] [facility] [address] [id number] [place] [address] Jan, [facility] [place] [facility] [address] [id number], [place] [address] Dec, [facility] [place] [facility] [address] [id number], [place] [address] Nov, [facility] [place] [facility] [address] [id number] [place] [address] October, [facility] [place] [facility] [address] [id number] [place] [address] Sep, [facility] [place] [facility] [address] [id number] [place] [address] Aug, [facility] [place] [facility] [address] [id number] [place] [address]698 20 Aug, 2012 [facility] [address] [id number] [place] [address] 8414 18 Aug, 2012 [facility] [place] [facility] [address] [id number] [place] [address] 21 May, 2012 [facility] [address] [id number] [place] [address]160 12 May, 2012 [facility] [place] [facility] [address] [id number] [place] [address] 12 May, 2012 [facility] [address] [id number] [place] [address] May, [facility] [place] [facility] [address] [id number] [place] [address] May, [facility] [address] [id number] [place] [address]347 16 Apr, 2012 [facility] [address] [id number] [place] [address] 16 Apr, 2012 [facility] [place] [facility] [address] [id number] [place] [address] 9[address] 14 Apr, 2012 [facility] [address] [id number] [place] [address] 14 Apr, 2012 [facility] [place] [facility] [address] [id number] [place] [address] 07 Apr, 2012 [facility] [place] [facility] [address] [id number] [place] [address]252 07 Apr, 2012 [facility] [place] [facility] [address] [id number] [place] [address]- 8984 05 Apr, 2012 [facility] [place] [facility] [address] [id number] [place] [address] 2617 05 Apr, 2012 [facility] [place] [facility] [address] [id number] [place] [address] 4199 Mar, [facility] [place] [facility] [address] [id number] [place] [address] 2856 Mar, [facility] [place] [facility] [address] [id number] [place] [address] 8980 Mar, [facility] [place] [facility] [address] [id number] [place] [address] Mar, [facility] [place] [facility] [address] [id number] [place] [address]111 Mar, [facility] [place] [facility] [address] [id number] [place] [address] 1846 Mar, [facility] [place] [facility] [address] [id number] [place] [address] 5831 Mar, [facility] [place] [facility] [address] [id number] [place] [address]- [address]561 28 Feb, 2012 [facility] [place] [facility] [address] [id number] [place] [address] 1730 24 Feb, 2012 [facility] [place] [facility] [address] [id number] [place] [address] 6733 20 Feb, 2012 [facility] [place] [facility] [address] [id number] [place] [address] 1345 Feb, [facility] [place] [facility] [address] [id number] [place] [address] 28 Jan, 2012 [facility] [place] [facility] [address] [id number] [place] [address] 8978 27 Jan, 2012 [facility] [place] [facility] [address] [id number] [place] [address]387 17 Jan, 2012 [facility] [place] [facility] [address] [id number] [place] [address] 3930 15 Jan, 2012 [facility] [place] [facility] [address] [id number] [place] [address] 5704 13 Jan, 2012 [facility] [place] [facility] [address] [id number] [place] [address] 6582 Jan, [facility] [place] [facility] [address] [id number] [place] [address] 8[address] Dec, [facility] [place] [facility] [address] [id number] [place] [address] 8639 Dec, [facility] [place] [facility] [address] [id number] [place] [address]- 9146 Dec, [facility] [place] [facility] [address] [id number] [place] [address] 4640 Dec, [facility] [place] [facility] [address] [id number] [place] [address] 1789 Dec, [facility] [place] [facility] [address] [id number] [place] [address]704 Dec, [facility] [address] [id number] [place] [address] Dec, [facility] [place] [facility] [address] [id number] [place] [address] 2963 Dec, [facility] [place] [facility] [address] [id number] [place] [address] 8[address] Nov, [facility] [place] [facility] [address] [id number] [place] [address]- 9097 Nov, [facility] [place] [facility] [address] [id number] [place] [address]- 1312 Nov, [facility] [place] [facility] [address] [id number] [place] [address] 7752 Nov, [facility] [place] [facility] [address] [id number] [place] [address] 6117 October, [facility] [place] [facility] [address] [id number] [place] [address] 3936 October, [facility] [place] [facility] [address] [id number] [place] [address] 2880 Sep, [facility] [place] [facility] [address] [id number] [place] [address]- 6297 Sep, [facility] [place] [facility] [address] [id number] [place] [address] 9849 27 Aug, 2011 [facility] [place] [facility] [address] [id number] [place] [address]- 4206 16 Aug, 2011 [facility] [place] [facility] [address] [id number] [place] [address]- 2161 07 Aug, 2011 [facility] [place] [facility] [address] [id number] [place] [address]- 0918 07 Aug, 2011 [facility] [place] [facility] [address] [id number] [place] [address]- 9683 05 Aug, 2011 [facility] [place] [facility] [address] [id number] [place] [address]- 2589 08 Jul, 2011 [facility] [place] [facility] [address] [id number] [place] [address]- 6646 Jul, [facility] [place] [facility] [address] [id number] [place] [address]- 6325 Jul, [facility] [place] [facility] [address] [id number] [place] [address]- 8356 Jul, [facility] [place] [facility] [address] [id number] [place] [address]- 5191 Jun, [facility] [place] [facility] [address] [id number] [place] [address]- 9442 Jun, [facility] [place] [facility] [address] [id number] [place] [address]- 8946 Jun, [facility] [place] [facility] [address] [id number] [place] [address]- 7664 Jun, [facility] [place] [facility] [address] [id number] [place] [address]- 4636 Jun, [facility] [place] [facility] [address] [id number], [place] [address]- 2106 May, [facility] [address] [id number] [place] [address] May, [facility] [place] [facility] [address] [id number] [place] [address]- 4061 May, [facility] [place] [facility] [address] [id number] [place] [address]- 5274 May, [facility] [place] [facility] [address] [id number] [place] [address]- 3521 May, [facility] [place] [facility] [address] [id number] [place] [address] May, [facility] [place] [facility] [address] [id number] [place] [address] Apr, [facility] [place] [facility] [address] [id number] [place] [address]- 8588 Apr, [facility] [place] [facility] [address] [id number] [place] [address]- 6065 Mar, [facility] [place] [facility] [address] [id number] [place] [address]- 0917 Mar, [facility] [place] [facility] [address] [id number] [place] [address]- 7100 October, [facility] [place] [facility] [address] [id number], [place] [address]- 9712 May, [facility] [place] [facility] [address] [id number] [place] [address]- 6307 Apr, [facility] [place] [facility] [address] [id number] [place] [address]- 9787 Jul, [facility] [place] [facility] [address] [id number] [place] [address]- 9543 May, [facility] [place] [facility] [address] [id number] [place] [address]- 1863 May, [facility] [place] [facility] [address] [facility] [id number] [place] [address]- 2546 May, [facility] [address] [facility] [id number], [place] [address]336 Apr, [facility] [address] [facility] [id number], [place] [address]- 2546 Apr, [facility] [address] [facility] [id number], [place] [address]- 1449 Mar, [facility] [address] [facility] [id number], [place] [address]- 6319 Jan, [facility] [address] [facility] [id number], [place] [address] Nov, IMMUNIZATIONS No Known Immunizations SOCIAL HISTORY Never Assessed REASON FOR VISIT Lab (walk-in) PLAN OF CARE VITAL SIGNS MEDICATIONS Unknown Medications RESULTS No Results PROCEDURES Procedure Date Ordered Result Body Site LAB NOT BILLED BY [facility] 2017 URINALYSIS, AUTO, W/O SCOPE 2017 VENIPUNCT, ROUTINE* 2017 INSTRUCTIONS MEDICATIONS ADMINISTERED No Known Medications [...]
--- OUTSIDE RECORDS SUMMARY | 2018-02-19 21:45 | XMS REPORT ---
Author Author BOOGIE ARAUJO [facility] Address [address] [place] [address] Care Team Providers Care Temperer Name Role Phone BOOGIE ARAUJO Unavailable PROBLEMS Type Condition ICD9-CM Code [id number] Code Onset Dates Condition Status SNOMED Code Problem History of abnormal cervical Pap smear Z87.898 Active 445494744 Problem Thoracogenic scoliosis of thoracolumbar region M41.35 Active 47904065 Problem Uncontrolled type 2 diabetes mellitus without complication, without long-term current use of insulin E11.65 Active 345569657 Problem Diabetes type 2, controlled E11.9 Active 61094946 Problem Thyroid nodule E04.1 Active 712885790 Problem History of colon polyps Z86.010 Active 254607535 Problem Other iron deficiency anemia D50.8 Active 97590237 Problem Iron deficiency anemia due to chronic blood loss D50.0 Active 569471223 Problem Screening breast examination Z12.39 Active 287738611 Problem Allergic rhinitis, unspecified allergic rhinitis trigger, unspecified rhinitis seasonality J30.9 Active 33323114 Problem Controlled type 2 diabetes mellitus without complication, without long -term current use of insulin E11.9 Active 338076274 Problem Other chronic pain G89.29 Active 94564153 ALLERGIES No Information ENCOUNTERS Encounter Location Date Diagnosis [facility], [place] [id number] [address] Dec, [facility], [place] [id number] [address] 6[address] Nov, Other chronic pain G89.29 [facility], [place] [address] [address] 5[address] Nov, [facility], [place] [id number] [address] 0161 Nov, [facility], [place] [id number] [address]- 0176 October, Diabetes type 2, controlled E11.9 and Acute cystitis without hematuria N30.00 [facility], [place] [id number] [address]- 3025 October, [facility], [place] [address] [address]- 0907 October, [facility], [place] [id number] [place] [address] 56863- 0431 October, [facility], [place] [id number] [place] [address] 87541- 9979 October, Other chronic pain G89.29 [facility], [place] [id number] [place] [address] 03746- 1701 Sep, Diabetes type 2, controlled E11.9 [facility], [place] [id number] [place] [address] 05751- 5019 Sep, [facility], [place] [id number] [place] [address] 33318- 3054 Sep, Diabetes type 2, controlled E11.9 [facility], [place] [id number] [place] [address] 98556- 3897 Sep, Other chronic pain G89.29 [facility], [place] [address] [address] 2797 Sep, Other iron deficiency anemia D50.8 [facility], [place] [address] [address]- 2792 Sep, Other iron deficiency anemia D50.8 [facility], [place] [id number] [place] [address] 05714- 3818 Sep, Iron deficiency anemia due to chronic blood loss D50.0 and Dysuria R30.0 [facility], [place] [address] [address]- 5706 Sep, Dysuria R30.0 [facility], [place] [address] [address]- 3673 Sep, Iron deficiency anemia due to chronic blood loss D50.0 [facility], [place] [id number] [place] [address] 40371- 3021 Sep, [facility], [place] [id number] [place] [address] 34981- 6633 Sep, Controlled type 2 diabetes mellitus without complication, without long-term current use of insulin E11.9 ; Leg cramps R25.2 ; Low back pain M54.5 and Other chronic pain G89.29 [facility], [place] [id number] [place] [address] 40253- 0802 Sep, Controlled type 2 diabetes mellitus without complication, without long-term current use of insulin E11.9 ; Low back pain M54.5 ; Other chronic pain G89.29 and Leg cramps R25.2 [facility] [id number] [place] [address] 64199- 1787 Aug, Other chronic pain G89.29 [facility], [place] [id number] [place] [address] 04867- 8220 Jul, Other chronic pain G89.29 [facility], [place] [id number] [place] [address] 28993- 8303 16 Jul, 2017 Pneumonia of left lower lobe due to infectious organism J18.1 [facility] [address] [address] 12 Jul, 2017 Dysuria R30.0 ; Cough in adult patient R05 and Pneumonia of left lower lobe due to infectious organism J18.1 [facility], [place] [id number] [place] [address] 14873- 6430 08 Jul, 2017 [facility], [place] [id number] [place] [address] 94143- 7746 Jun, Other chronic pain G89.29 [facility], [place] [id number] [place] [address] 16826- 6854 Jun, [facility], [place] [address] [address]- 3834 Jun, Diabetes type 2, controlled E11.9 ; Back muscle spasm M62.830 and Other chronic pain G89.29 [facility], [place] [address] [address]- 9906 Jun, Screening breast examination Z12.31 [facility], [place] [id number] [place] [address] 04985- 0193 May, Other chronic pain G89.29 [facility], [place] [id number] [place] [address] 98992- 4149 May, [facility], [place] [id number] [place] [address] 24222- 9989 May, UTI (urinary tract infection) N39.0 [facility], [place] [id number] [place] [address] 73960- 7729 May, Dysuria R30.0 [facility], [place] [id number] [place] [address] 88420- 9653 May, Dysuria R30.0 [facility], [place] [id number] [place] [address] 95878- 7444 04 May, 2017 Diabetes type 2, controlled E11.9 ; 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 and Other chronic pain G89.29 [facility], [place] [id number] [place] [address] 92162- 3757 Apr, Diabetes type 2, controlled E11.9 [facility] [id number] [place] [address] 72202 -0724 Mar, Paronychia of great toe, right L03.031 and Dysuria R30.0 [facility], [place] [address] [address]- 5639 Mar, Diabetes type 2, controlled E11.9 [facility], [place] [id number] [address]- 5101 28 Feb, 2017 Diabetes type 2, controlled E11.9 [facility] [address] [id number] [address] 13 Feb, 2017 Dental examination Z01.20 [facility], [place] [address] [address]- 1301 11 Feb, 2017 Diabetes type 2, controlled E11.9 [facility], [place] [address] [address]- 3516 07 Feb, 2017 Diabetes type 2, controlled E11.9 [facility], [place] [address] [address]- 5785 14 Jan, 2017 Diabetes type 2, controlled E11.9 [facility], [place] [address] [address]- 3967 24 Dec, 2016 Diabetes type 2, controlled E11.9 [facility], [place] [address] [address]- 1294 Dec, Diabetes type 2, controlled E11.9 [facility], [place] [address] [address]- 7482 30 Nov, 2016 Diabetes type 2, controlled E11.9 [facility], [place] [address] [address]- 2821 Nov, Diabetes type 2, controlled E11.9 [facility], [place] [address] [address]- 4182 27 Nov, 2016 Diabetes type 2, controlled E11.9 [facility], [place] [address] [address]- 5261 19 Nov, 2016 Diabetes type 2, controlled E11.9 [facility], [place] [address] [address]- 8631 14 Nov, 2016 Diabetes type 2, controlled E11.9 [facility], [place] [address] [address]- 4297 Nov, Diabetes type 2, controlled E11.9 [facility], [place] [address] [address]- 0952 October, Pain in unspecified shoulder M25.519 [facility], [place] [id number] [place] [address] 69670- 9930 October, Diabetes type 2, controlled E11.9 and Cellulitis of right lower extremity L03.115 [facility] [id number] [place] [address] 22340- 3626 October, Pain in unspecified shoulder M25.519 [facility] [id number] [place] [address] 06439- 3961 Sep, Diabetes type 2, controlled E11.9 [facility] [id number] [place] [address] 26137- 3640 Aug, Pain in unspecified shoulder M25.519 [facility] [id number] [place] [address] 75139- 9884 Aug, Diabetes type 2, controlled E11.9 [facility] [id number] [place] [address] 63096- 5093 Aug, Diabetes type 2, controlled E11.9 ; Dark urine R82.99 and Localized edema R60.0 [facility] [id number] [place] [address] 78021- 8847 Aug, Pain in unspecified shoulder M25.519 [facility] [id number] [place] [address] 73916- 7230 Jul, Pain in unspecified shoulder M25.519 [facility] [id number] [place] [address] 04193- 8016 Jul, [facility] [id number] [place] [address] 14400- 0318 Jul, Diabetes type 2, 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 E11.9 and 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 [facility] [id number] [place] [address] 84181- 7835 Jun, Diabetes type 2, controlled E11.9 [facility] [id number] [place] [address] 19022- 0678 Jun, Screening breast examination Z12.39 and Allergic rhinitis, unspecified allergic rhinitis trigger, unspecified rhinitis seasonality J30.9 [facility] [id number] [place] [address] 57158- 1987 Jun, Pain in unspecified shoulder M25.519 [facility] [address] 23863- 8589 May, [facility] [address] 98570- 7587 May, Pain in unspecified shoulder M25.519 [facility] [address] 98564- 9978 05 May, 2016 Thoracogenic scoliosis of thoracolumbar region M41.35 ; Low back pain M54.5 ; Other chronic pain G89.29 and Uncontrolled type 2 diabetes mellitus without complication, without long-term current use of insulin E11.65 [facility] [id number] [place] [address] 98779- 5119 Apr, [facility] [id number] [place] [address] 36395- 2009 Apr, [facility] [id number] [place] [address] 74219- 5582 04 Apr, 2016 History of type 2 diabetes mellitus Z86.39 and Encounter for immunization Z23 [facility] [id number] [place] [address] 12365- 3218 Mar, [facility] [id number] [place] [address] 80872- 6095 Mar, [facility] [id number] [place] [address] 58457- 6612 Feb, [facility] [id number] [place] [address] 22001- 9307 Jan, [facility], [place] [address] [facility] [id number] [place] [address]- 1335 Jan, [facility], [place] [id number] [address]- 8204 Dec, [facility] [id number] [address] -6663 Dec, Sore throat J02.9 and Allergic rhinitis, unspecified allergic rhinitis type J30.9 [facility], [place] [address] [facility] [id number] [place] [address]- 8459 Dec, Diabetes type 2, controlled E11.9 [facility], [place] [address] [facility] [id number] [place] [address]- 0964 Nov, [facility], [place] [address] [address]- 2397 Nov, [facility], [place] [address] [address]- 5134 October, [facility], [place] [address] [address]- 5351 October, [facility], [place] [id number] [address]- 7070 Sep, [facility], [place] [id number] [address]- 3473 Aug, [facility], [place] [id number] [address]- 9849 Aug, Diabetes type 2, controlled E11.9 ; UTI (urinary tract infection) N39.0 and Bacterial infection A49.9 [facility], [place] [id number] [address]- 3738 Jul, [facility], [place] [id number] [address]- 5757 Jul, [facility], [place] [id number] [place] [address] 06622- 3529 Jul, Pharyngitis J02.9 and Seborrheic keratoses L82.1 [facility] [id number] [place] [address] 26322- 2160 Jun, [facility] [id number] [place] [address] 69841- 2554 May, [facility] [address] 27230- 1105 May, Skin tags, multiple acquired L91.8 ; Seborrheic keratoses L82.1 and Diabetes type 2, controlled E11.9 [facility] [address] 40893- 2212 May, Well woman exam Z01.419 ; Papanicolaou [...] Other hemorrhoids K64.8 and Other fatigue R53.83 [facility] [id number] [place] [address] 31796- 5319 15 May, 2015 [facility] [id number] [place] [address] 44770- 7654 May, [facility] [id number] [place] [address] 11191- 5394 Apr, Seborrheic keratosis L82.1 and Diabetes type 2, controlled E11.9 [facility] [id number] [place] [address] 65689- 7541 Apr, Seborrheic keratosis L82.1 and Diabetes type 2, controlled E11.9 [facility] [address] [place] [address]- 9799 Mar, [facility], [place] [address] 37695- 3136 Mar, [facility], [place] [address] 48048- 6893 Mar, Encounter for immunization Z23 ; Nevoid hyperpigmentation L81.9 ; Skin tags, multiple acquired L91.8 and Seborrheic keratoses L82.1 [facility], [place] [address] 91474- 1777 Feb, [facility], [place] [address] 91987- 1931 Feb, [facility], [place] [address] 37376- 1532 Feb, [facility], [place] [address] 20519- 4171 Feb, Diabetes 250.00 ; Tinea corporis 110.5 and Shoulder pain, left 719.41 [facility], [place] [address] 88382- 4092 Jan, [facility], [place] [id number] [place] [address] 88231- 4581 Dec, [facility], [place] [id number] [place] [address] 71658- 4204 Dec, [facility], [place] [address] 09282- 8362 Dec, Seborrheic keratoses 702.19 ; Diabetes 250.00 and Hypoglycemia 251.2 [facility], [place] [address] 38960- 5942 Nov, [facility], [place] [address] 99910- 8587 Nov, Abnormal mammogram 793.80 [facility], [place] [address] [place] [address]- 1624 October, Diabetes 250.00 and Colon polyp 211.3 [facility] [address] [id number] [place] [address]- 1258 Sep, [facility] [address] [id number] [place] [address]- 1425 Sep, [facility] [id number] [place] [address], [place] [address]- 0789 Sep, [facility] [address] [id number] [place] [address]- 0310 Aug, [facility] [address] [id number] [place] [address], [place] [address]- 1260 Aug, [facility] [address] [address]- 4287 Jul, [facility] [address] [address]- 5808 Jul, [facility] [id number] [address]- 8175 Jun, [facility] [address] [address]- 8149 Jun, [facility] [address] [address]- 7801 Jun, [facility] [id number] [address]- 6162 Jun, [facility] [id number] [address]- 2389 Jun, [facility] [address] [address]- 1897 Jun, [facility] [address] [facility] [id number] [place] [address]- 8456 May, [facility] [address] [address]- 7966 May, [facility] [place] [facility] [address] [id number] [place] [address]- 4483 Apr, [facility] [place] [facility] [address] [id number] [place] [address]- 4151 Apr, [facility] [place] [facility] [address] [id number] [place] [address]- 1754 Apr, [facility] [place] [facility] [address] [id number] [place] [address]- 9184 Apr, [facility] [place] [facility] [address] [id number] [place] [address]- 7113 Apr, [facility] [place] [facility] [address] [id number] [place] [address]- 5016 Apr, [facility] [place] [facility] [address] [id number] [place] [address]- 1998 Apr, [facility] [place] [facility] [address] [id number] [place] [address]- 6118 Apr, [facility] [place] [facility] [address] [id number] [place] [address]- 5258 Apr, [facility] [place] [facility] [address] [id number] [place] [address]- 0976 Apr, [facility] [place] [facility] [address] [id number] [place] [address]- 1323 Mar, [facility] [place] [facility] [address] [id number] [place] [address]- 2218 Mar, [facility] [place] [facility] [address] [id number] [place] [address]- 2365 Mar, [facility] [place] [facility] [address] [id number] [place] [address]- 2206 Mar, [facility] [place] [facility] [address] [id number] [place] [address]- 1429 Mar, [facility] [place] [facility] [address] [id number] [place] [address]- 2477 Mar, [facility] [place] [facility] [address] [id number] [place] [address]- 7906 Mar, [facility] [place] [facility] [address] [id number] [place] [address]- 0978 Mar, [facility] [place] [facility] [address] [id number] [place] [address]- 3045 Feb, [facility] [place] [facility] [address] [id number] [place] [address]- 7770 Feb, [facility] [place] [facility] [address] [id number] [place] [address]- 2045 Feb, [facility] [place] [facility] [address] [id number] [place] [address]- 0753 Feb, [facility] [place] [facility] [address] [id number] [place] [address]- 4326 Jan, [facility] [place] [facility] [address] [id number] [place] [address]- 6356 Jan, [facility] [place] [facility] [address] [id number] [place] [address]- 3959 Dec, [facility] [place] [facility] [address] [id number] [place] [address]- 1825 Dec, [facility] [place] [facility] [address] [id number] [place] [address]- 1969 Nov, [facility] [place] [facility] [address] [id number] [place] [address]- 2968 Nov, [facility] [place] [facility] [address] [id number] [place] [address]- 4446 Nov, [facility] [place] [facility] [address] [id number] [place] [address]- 4986 Nov, [facility] [place] [facility] [address] [id number] [place] [address] October, [facility] [address] [id number] [place] [address] October, [facility] [place] [facility] [address] [id number] [place] [address] October, [facility] [place] [facility] [address] [id number] [place] [address] October, [facility] [place] [facility] [address] [id number] [place] [address] October, [facility] [place] [facility] [address] [id number] [place] [address] October, [facility] [place] [facility] [address] [id number] [place] [address] October, [facility] [place] [facility] [address] [id number] [place] [address] October, [facility] [place] [facility] [address] [id number] [place] [address] Aug, [facility] [place] [facility] [address] [id number] [place] [address] Aug, [facility] [place] [facility] [address] [id number] [place] [address] Jul, [facility] [place] [facility] [address] [id number] [place] [address] Jul, [facility] [place] [facility] [address] [id number] [place] [address] Jul, [facility] [place] [facility] [address] [id number] [place] [address] Jul, [facility] [place] [facility] [address] [id number] [place] [address] Jul, [facility] [place] [facility] [address] [id number] [place] [address] Jun, [facility] [place] [facility] [address] [id number] [place] [address] Jun, [facility] [address] [id number] [place] [address] May, [facility] [place] [facility] [address] [id number] [place] [address] May, [facility] [place] [facility] [address] [id number] [place] [address] Apr, [facility] [place] [facility] [address] [id number] [place] [address] Apr, [facility] [place] [facility] [address] [id number] [place] [address] Mar, [facility] [place] [facility] [address] [id number] [place] [address] Mar, [facility] [place] [facility] [address] [id number] [place] [address] Mar, [facility] [place] [facility] [address] [id number] [place] [address] Feb, [facility] [place] [facility] [address] [id number] [place] [address] Feb, [facility] [place] [facility] [address] [facility] [id number] [place] [address] 17 Feb, 2013 [facility] [place] [facility] [address] [id number] [place] [address] Feb, [facility] [place] [facility] [address] [address] [id number] [place] [address] Feb, [facility] [place] [facility] [address] [id number] [place] [address] Jan, [facility] [place] [facility] [address] [id number] [place] [address] Dec, [facility] [place] [facility] [address] [id number] [place] [address] Nov, [facility] [place] [facility] [address] [id number] [place] [address] October, [facility] [address] [id number] [place] [address] Sep, [facility] [place] [facility] [address] [id number] [place] [address] Aug, [facility] [address] [id number] [place] [address] Aug, [facility] [address] [id number] [place] [address] 18 Aug, 2012 [facility] [address] [id number] [place] [address] May, [facility] [address] [id number] [place] [address] 12 May, 2012 [facility] [address] [id number] [place] [address] 12 May, 2012 [facility] [address] [id number] [place] [address] May, [facility] [address] [id number] [place] [address] May, [facility] [address] [id number] [place] [address] 16 Apr, 2012 [facility] [place] [facility] [address] [id number] [place] [address] 16 Apr, 2012 [facility] [place] [facility] [address] [id number] [place] [address] 14 Apr, 2012 [facility] [place] [facility] [address] [id number] [place] [address] 14 Apr, 2012 [facility] [place] [facility] [address] [id number] [place] [address] 07 Apr, 2012 [facility] [place] [facility] [address] [id number] [place] [address] Apr, [facility] [place] [facility] [address] [id number] [place] [address]991 Apr, [facility] [place] [facility] [address] [id number] [place] [address] 4086 Apr, [facility] [place] [facility] [address] [id number] [place] [address] Mar, [facility] [place] [facility] [address] [id number] [place] [address] 1329 Mar, [facility] [place] [facility] [address] [id number] [place] [address] Mar, [facility] [place] [facility] [address] [id number] [place] [address] Mar, [facility] [place] [facility] [address] [id number] [place] [address] Mar, [facility] [place] [facility] [address] [id number] [place] [address] 6947 Mar, [facility] [place] [facility] [address] [id number] [place] [address] 7147 Mar, [facility] [place] [facility] [address] [id number] [place] [address] 39[address] Feb, [facility] [place] [facility] [address] [id number] [place] [address] 24 Feb, 2012 [facility] [place] [facility] [address] [id number] [place] [address] 3313 20 Feb, 2012 [facility] [place] [facility] [address] [id number] [place] [address] Feb, [facility] [place] [facility] [address] [id number] [place] [address] 63[address] Jan, [facility] [place] [facility] [address] [id number] [place] [address] Jan, [facility] [place] [facility] [address] [id number] [place] [address] 17 Jan, 2012 [facility] [place] [facility] [address] [id number] [place] [address] 3912 15 Jan, 2012 [facility] [place] [facility] [address] [id number] [place] [address] Jan, [facility] [address] [id number] [place] [address] Jan, [facility] [place] [facility] [address] [id number] [place] [address] Dec, [facility] [place] [facility] [address] [id number] [place] [address]65 Dec, [facility] [place] [facility] [address] [id number] [place] [address] 5867 Dec, [facility] [place] [facility] [address] [id number] [place] [address] 9573 Dec, [facility] [address] [id number] [place] [address]- 7[address] Dec, [facility] [place] [facility] [address] [id number] [place] [address] 3928 Dec, [facility] [address] [id number] [place] [address] 0992 Dec, [facility] [place] [facility] [address] [id number] [place] [address] 1765 Dec, [facility] [place] [facility] [address] [id number] [place] [address] 1511 Nov, [facility] [place] [facility] [address] [id number] [place] [address]- 2181 Nov, [facility] [place] [facility] [address] [id number] [place] [address]- 4617 Nov, [facility] [place] [facility] [address] [id number] [place] [address]- 3026 Nov, [facility] [address] [id number] [place] [address]- 8466 October, [facility] [place] [facility] [address] [id number] [place] [address] 4246 October, [facility] [place] [facility] [address] [id number] [place] [address]- 0276 Sep, [facility] [place] [facility] [address] [id number] [place] [address]- 5847 Sep, [facility] [place] [facility] [address] [id number] [place] [address]- 4267 Aug, [facility] [place] [facility] [address] [id number] [place] [address] 16 Aug, 2011 [facility] [place] [facility] [address] [id number] [place] [address]- 7998 Aug, [facility] [place] [facility] [address] [id number] [place] [address]- 7085 Aug, [facility] [place] [facility] [address] [id number] [place] [address]- 4474 Aug, [facility] [place] [facility] [address] [id number] [place] [address]- 1851 Jul, [facility] [place] [facility] [address] [id number] [place] [address]- 9900 Jul, [facility] [place] [facility] [address] [id number] [place] [address]- 7556 Jul, [facility] [place] [facility] [address] [id number] [place] [address]- 7212 Jul, [facility] [place] [facility] [address] [id number] [place] [address]- 1876 Jun, [facility] [place] [facility] [address] [id number] [place] [address]- 4834 Jun, [facility] [place] [facility] [address] [id number] [place] [address]- 7199 05 Jun, 2011 [facility] [address] [id number] [place] [address]- 8396 Jun, [facility] [place] [facility] [address] [id number] [place] [address]- 3053 Jun, [facility] [address] [id number] [place] [address]- 3016 May, [facility] [place] [facility] [address] [id number] [place] [address]- 5486 May, [facility] [address] [id number] [place] [address]- 2935 May, [facility] [place] [facility] [address] [id number] [place] [address]- 0199 May, [facility] [address] [id number] [place] [address]- 6174 May, [facility] [place] [facility] [address] [id number] [place] [address]- 5453 May, [facility] [place] [facility] [address] [id number] [place] [address]- 6163 Apr, [facility] [address] [facility] [id number] [place] [address]- 6745 Apr, [facility] [place] [facility] [address] [id number] [place] [address]- 0202 Mar, [facility] [place] [facility] [address] [id number] [place] [address]- 3826 Mar, [facility] [place] [facility] [address] [id number] [place] [address]- 6500 October, [facility] [place] [facility] [address] [id number] [place] [address]- 2786 May, [facility] [place] [facility] [address] [id number] [place] [address]- [address]44 Apr, [facility] [place] [address] [id number] [place] [address]- [address] Jul, [facility] [place] [address] [id number] [place] [address]- 8836 May, [facility] [place] [address] [id number] [place] [address]- 9526 May, [facility] [place] [id number] [place] [address]- 4356 May, [facility] [place] [address] [id number] [place] [address]- 0864 Apr, [facility] [place] [id number] [place] [address]- 0716 Apr, [facility] [place] [id number] [place] [address]- 6320 Mar, [facility] [place] [id number] [place] [address]- 9039 Jan, [facility] [place] [address] [id number] [place] [address]- 4299 Nov, IMMUNIZATIONS No Known Immunizations SOCIAL HISTORY Never Assessed REASON FOR VISIT Controlled Med Refill PLAN OF CARE VITAL SIGNS MEDICATIONS Medication Instructions Dosage Frequency Start Date End Date Duration Status Unity 7.5-325 MG Orally 3 times a day 1 tablet as needed 8h May, Jun, 28 days Active RESULTS No Results PROCEDURES [...]
--- OUTSIDE RECORDS SUMMARY | 2018-02-19 21:47 | XMS REPORT ---
Author Author BOOGIE ARAUJO 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 Role Phone BOOGIE ARAUJO Unavailable PROBLEMS Type Condition ICD9-CM Code BPV25-TH Code Onset Dates Condition Status SNOMED Code Problem History of abnormal cervical Pap smear Z87.898 Active 242806634 Problem Thoracogenic scoliosis of thoracolumbar region M41.35 Active 05128553 Problem Uncontrolled type 2 diabetes mellitus without complication, without long-term current use of insulin E11.65 Active 350863380 Problem Diabetes type 2, controlled E11.9 Active 60857384 Problem Thyroid nodule E04.1 Active 494366746 Problem History of colon polyps Z86.010 Active 853707507 Problem Other iron deficiency anemia D50.8 Active 98708159 Problem Iron deficiency anemia due to chronic blood loss D50.0 Active 450118774 Problem Screening breast examination Z12.39 Active 952229220 Problem Allergic rhinitis, unspecified allergic rhinitis trigger, unspecified rhinitis seasonality J30.9 Active 32354728 Problem Controlled type 2 diabetes mellitus without complication, without long -term current use of insulin E11.9 Active 681220124 Problem Other chronic pain G89.29 Active 26333554 ALLERGIES No Information ENCOUNTERS Encounter Location Date Diagnosis [facility] [id number], [place] [address] Dec, [facility] [address], [place] [address] October, Diabetes type 2, controlled E11.9 and Acute cystitis without hematuria N30.00 [facility] [id number], [place] [address] 0[address] October, [facility] [id number] [place] [address] 18166- 0424 October, [facility] [address], [place] [address] 34[address] October, [facility] [id number] [place] [address] 17229- 8877 October, Other chronic pain G89.29 [facility] [address], [place] [address] 59[address] Sep, Diabetes type 2, controlled E11.9 [facility] [id number] [place] [address] 13864- 7177 Sep, [facility] [id number] [place] [address] 29721- 3919 Sep, Diabetes type 2, controlled E11.9 [facility] [address], [place] [address] 2806 Sep, Other chronic pain G89.29 [facility] [address], [place] [address] 7761 Sep, Other iron deficiency anemia D50.8 [facility] [address], [place] [address] 7019 Sep, Other iron deficiency anemia D50.8 [facility] [address], [place] [address] 254 Sep, Iron deficiency anemia due to chronic blood loss D50.0 and Dysuria R30.0 [facility] [address], [place] [address]- 2540 Sep, Dysuria R30.0 [facility] [address], [place] [address]- 2541 Sep, Iron deficiency anemia due to chronic blood loss D50.0 [facility] [address], [place] [address] 25[address] Sep, [facility] [address], [place] [address] 8809 Sep, Controlled type 2 diabetes mellitus without complication, without long-term current use of insulin E11.9 ; Leg cramps R25.2 ; Low back pain M54.5 and Other chronic pain G89.29 [facility] [id number] [place] [address] 93135- 8804 Sep, Controlled type 2 diabetes mellitus without complication, without long-term current use of insulin E11.9 ; Low back pain M54.5 ; Other chronic pain G89.29 and Leg cramps R25.2 [facility] [id number] [place] [address] 65409- 9204 Aug, Other chronic pain G89.29 [facility] [id number] [place] [address] 45115- 8870 Jul, Other chronic pain G89.29 [facility] [id number] [place] [address] 74108- 8410 16 Jul, 2017 Pneumonia of left lower lobe due to infectious organism J18.1 [facility] [id number] [place] [address] 65856 -7203 12 Jul, 2017 Dysuria R30.0 ; Cough in adult patient R05 and Pneumonia of left lower lobe due to infectious organism J18.1 [facility] [id number] [place] [address] 22246- 1799 08 Jul, 2017 [facility] [id number] [place] [address] 43867- 3213 Jun, Other chronic pain G89.29 [facility] [id number] [place] [address] 57410- 4363 Jun, [facility] [address] 15187- 0446 Jun, Diabetes type 2, controlled E11.9 ; Back muscle spasm M62.830 and Other chronic pain G89.29 [facility] [id number] [place] [address] 85747- 6968 09 Anthony, 2018 Screening breast examination Z12.31 [facility] [address], [place] [address] 8410 May, Other chronic pain G89.29 [facility] [id number] [place] [address] 06135- 3279 May, [facility] [id number] [place] [address] 04271- 1306 May, UTI (urinary tract infection) N39.0 [facility] [id number] [place] [address] 65370- 9613 04 May, 2017 Dysuria R30.0 [facility] [id number] [place] [address] 16210- 4626 May, Dysuria R30.0 [facility] [id number] [place] [address] 78819- 1343 May, Diabetes type 2, controlled E11.9 ; 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 and Other chronic pain G89.29 [facility] [id number] [place] [address] 89059- 2874 Apr, Diabetes type 2, controlled E11.9 [facility] [address] [place] [address] 92571 -2032 30 Mar, 2017 Paronychia of great toe, right L03.031 and Dysuria R30.0 [facility] [address], [place] [address]- 1520 09 Mar, 2017 Diabetes type 2, controlled E11.9 [facility] [id number] [place] [address] 01157- 9437 28 Feb, 2017 Diabetes type 2, controlled E11.9 [facility] [address] [address] 13 Feb, 2017 Dental examination Z01.20 [facility] [id number] [place] [address] 99721- 5138 11 Feb, 2017 Diabetes type 2, controlled E11.9 [facility] [address] [facility] [id number] [address] 2817 07 Feb, 2017 Diabetes type 2, controlled E11.9 [facility] [address], [place] [address]- 4686 Jan, Diabetes type 2, controlled E11.9 [facility] [address], [place] [address]- 2335 Dec, Diabetes type 2, controlled E11.9 [facility] [address] [facility] [id number] [place] [address]- 9360 Dec, Diabetes type 2, controlled E11.9 [facility] [address] [place] [address]- 7901 Nov, Diabetes type 2, controlled E11.9 [facility] [address], [place] [address]- 5935 Nov, Diabetes type 2, controlled E11.9 [facility] [address], [place] [address]- 8817 Nov, Diabetes type 2, controlled E11.9 [facility] [address], [place] [address]- 1193 Nov, Diabetes type 2, controlled E11.9 [facility] [address], [place] [address]- 4450 Nov, Diabetes type 2, controlled E11.9 [facility] [address], [place] [address]- 4202 Nov, Diabetes type 2, controlled E11.9 [facility] [address], [place] [address]- 5078 October, Pain in unspecified shoulder M25.519 [facility] [address] [place] [address]- 9447 October, Diabetes type 2, controlled E11.9 and Cellulitis of right lower extremity L03.115 [facility] [id number] [place] [address] 73011- 6301 October, Pain in unspecified shoulder M25.519 [facility] [id number] [place] [address] 29439- 5930 Sep, Diabetes type 2, controlled E11.9 [facility] [id number] [place] [address] 01590- 8342 Aug, Pain in unspecified shoulder M25.519 [facility] [id number] [place] [address] 39268- 7159 Aug, Diabetes type 2, controlled E11.9 [place] [address] 06584- 6851 Aug, Diabetes type 2, controlled E11.9 ; Dark urine R82.99 and Localized edema R60.0 [place] [address] 38594- 0771 Aug, Pain in unspecified shoulder M25.519 [facility] [id number] [place] [address] 31603- 6497 Jul, Pain in unspecified shoulder M25.519 [facility] [id number] [place] [address] 06312- 7717 Jul, [facility] [id number] [place] [address] 51103- 4261 Jul, Diabetes type 2, controlled E11.9 and 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 [facility] [id number] [place] [address] 93529- 2260 Jun, Diabetes type 2, controlled E11.9 [facility] [id number] [place] [address] 76549- 0280 Jun, Screening breast examination Z12.39 and Allergic rhinitis, unspecified allergic rhinitis trigger, unspecified rhinitis seasonality J30.9 [facility] [id number] [place] [address] 89960- 8025 Jun, Pain in unspecified shoulder M25.519 [facility] [id number] [place] [address] 33409- 3314 May, [facility] [id number] [place] [address] 30704- 3797 May, Pain in unspecified shoulder M25.519 [facility] [address] 83243- 4199 05 May, 2016 Thoracogenic scoliosis of thoracolumbar region M41.35 ; Low back pain M54.5 ; Other chronic pain G89.29 and Uncontrolled type 2 diabetes mellitus without complication, without long-term current use of insulin E11.65 [facility] [id number] [place] [address] 05805- 2322 Apr, [facility] [address] 11074- 4511 Apr, [facility] [address] 85014- 4007 Apr, History of type 2 diabetes mellitus Z86.39 and Encounter for immunization Z23 [facility] [id number] [place] [address] 00361- 2119 Mar, [facility] [id number] [place] [address] 18624- 0794 Mar, [facility] [id number] [place] [address] 94340- 8280 Feb, [facility] [id number] [place] [address] 31476- 1083 Jan, [facility] [address] 94967- 4812 Jan, [facility] [id number] [place] [address] 02312- 2274 Dec, [facility] [address] 52990 -8783 Dec, Sore throat J02.9 and Allergic rhinitis, unspecified allergic rhinitis type J30.9 [facility] [address], [place] [address]- 9189 Dec, Diabetes type 2, controlled E11.9 [facility] [address] [facility] [id number], [place] [address]- 1801 Nov, [facility] [id number] [place] [address] 77231- 2624 Nov, [facility] [address], [place] [address]- 9380 October, [facility] [id number] [place] [address] 25253- 4583 October, [facility] [address], [place] [address]- 8182 Sep, [facility] [address], [place] [address]- 1094 Aug, [facility] [address], [place] [address]- 4925 Aug, Diabetes type 2, controlled E11.9 ; UTI (urinary tract infection) N39.0 and Bacterial infection A49.9 [facility] [address], [place] [address]- 1312 Jul, [facility] [address], [place] [address]- 9392 Jul, [facility] [id number], [place] [address]- 3300 Jul, Pharyngitis J02.9 and Seborrheic keratoses L82.1 [facility] [id number], [place] [address]- 9991 Jun, [facility] [address], [place] [address]- 9219 May, [facility] [id number] [place] [address] 50574- 3739 May, Skin tags, multiple acquired L91.8 ; Seborrheic keratoses L82.1 and Diabetes type 2, controlled E11.9 [address] [id number] [place] [address] 09807- 8856 May, Well woman exam Z01.419 ; Papanicolaou [...] Other fatigue R53.83 and Other hemorrhoids K64.[address] 67877- 7895 May, [address] 29638- 3830 May, [address] 36700- 7865 Apr, Seborrheic keratosis L82.1 and Diabetes type 2, controlled E11.9 [address] [id number] [place] [address] 72768- 2867 Apr, Seborrheic keratosis L82.1 and Diabetes type 2, controlled E11.9 [facility] [id number] [place] [address] 03188- 7060 Mar, [address] 61096- 7635 Mar, [address] 22356- 4535 06 Mar, 2015 Nevoid hyperpigmentation L81.9 ; Encounter for immunization Z23 ; Skin tags, multiple acquired L91.8 and Seborrheic keratoses L82.1 [facility] [id number], [place] [address]- 0892 Feb, [facility] [id number] [place] [address] 29945- 5871 Feb, [facility] [id number] [place] [address] 20887- 4378 Feb, [facility] [id number] [place] [address] 94638- 9857 Feb, Diabetes 250.00 ; Tinea corporis 110.5 and Shoulder pain, left 719.41 [facility] [id number] [place] [address] 94192- 5619 Jan, [facility] [id number] [place] [address] 41738- 8913 Dec, [facility] [id number] [place] [address] 61674- 2338 Dec, [facility] [id number] [place] [address] 28323- 3122 Dec, Seborrheic keratoses 702.19 ; Diabetes 250.00 and Hypoglycemia 251.2 [facility] [address], [place] [address]- 4488 Nov, [facility] [id number] [place] [address] 35904- 9938 Nov, Abnormal mammogram 793.80 [facility] [id number] [place] [address] 90742- 8158 October, Diabetes 250.00 and Colon polyp 211.3 [facility] [id number] [place] [address] 85118- 6248 Sep, [facility] [address] [place] [address] 83802- 9480 Sep, [facility] [id number] [place] [address]- 9943 Sep, [facility] [address] [id number] [place] [address]- 4930 Aug, [facility] [place] [facility] [address] [id number] [place] [address]- 8721 Aug, [facility] [address] [id number] [place] [address]- 8619 Jul, [facility] [place] [facility] [address] [id number] [place] [address]- 6084 Jul, [facility] [address] [id number] [place] [address]- 0793 Jun, [facility] [place] [facility] [address] [id number] [place] [address]- 3714 Jun, [facility] [address] [id number] [place] [address]- 3025 Jun, [facility] [address] [id number] [place] [address]- 2308 Jun, [facility] [place] [facility] [address] [id number] [place] [address]- 7064 Jun, [facility] [address] [facility] [id number] [place] [address]- 7215 Jun, [facility] [address] [id number] [place] [address]- 3169 May, [facility] [place] [facility] [address] [id number] [place] [address]- 4801 May, [facility] [place] [facility] [address] [id number] [place] [address]- 4496 Apr, [facility] [place] [facility] [address] [id number] [place] [address]- 6738 Apr, [facility] [place] [facility] [address] [id number] [place] 8957 Apr, [facility] [place] [facility] [address] [id number] [place] [address]- 6987 Apr, [facility] [place] [facility] [address] [id number] [place] [address]- 1120 Apr, [facility] [place] [facility] [address] [id number] [place] [address]- 8501 Apr, [facility] [place] [facility] [address] [id number] [place] [address]- 2623 Apr, [facility] [place] [facility] [address] [id number] [place] [address]- 7232 Apr, [facility] [place] [facility] [address] [id number] [place] [address]- 6440 Apr, [facility] [place] [facility] [address] [id number] [place] [address]- 2724 Apr, [facility] [place] [facility] [address] [id number] [place] [address]- 6656 Mar, [facility] [place] [facility] [address] [id number] [place] [address]- 1475 Mar, [facility] [place] [facility] [address] [id number], [place] [address]- 1719 Mar, [facility] [place] [facility] [address] [id number], [place] [address]- 3302 Mar, [facility] [place] [facility] [address] [id number], [place] [address]- 8391 Mar, [facility] [place] [facility] [address] [id number] [place] [address]- 9519 Mar, [facility] [place] [facility] [address] [id number], [place] [address]- 8132 Mar, [facility] [place] [facility] [address] [id number], [place] [address]- 6840 Mar, [facility] [place] [facility] [address] [id number], [place] [address]- 9647 Feb, [facility] [place] [facility] [address] [id number] [place] [address]- 8530 Feb, [facility] [place] [facility] [address] [id number] [place] [address]- 5461 Feb, [facility] [place] [facility] [address] [id number] [place] [address]- 1415 Feb, [facility] [place] [facility] [address] [id number] [place] [address]- 9292 Jan, [facility] [place] [facility] [address] [id number] [place] [address]- 9176 Jan, [facility] [place] [facility] [address] [id number] [place] [address]- 3369 Dec, [facility] [place] [facility] [address] [id number] [place] [address]- 8098 Dec, [facility] [place] [facility] [address] [id number] [place] [address]- 4960 Nov, [facility] [place] [facility] [address] [id number] [place] [address]- 7742 Nov, [facility] [place] [facility] [address] [id number] [place] [address]- 3550 Nov, [facility] [place] [facility] [address] [id number] [place] [address]- 7910 Nov, [facility] [place] [facility] [address] [id number] [place] [address]- 9338 October, [facility] [place] [facility] [address] [id number] [place] [address]- 5185 October, [facility] [place] [facility] [address] [id number] [place] [address]- 0016 October, [facility] [place] [facility] [address] [id number] [place] [address]- 3090 October, [facility] [place] [facility] [address] [id number] [place] [address]- 4538 October, [facility] [place] [facility] [address] [id number] [place] 6295 October, [facility] [place] [facility] [address] [id number] [place] [address]- 4066 October, [facility] [place] [facility] [address] [id number] [place] [address]- 6154 October, [facility] [place] [facility] [address] [id number] [place] [address]- 4019 Aug, [facility] [place] [facility] [address] [id number] [place] [address] Aug, [facility] [place] [facility] [address] [id number] [place] [address] Jul, [facility] [place] [facility] [address] [id number] [place] [address] Jul, [facility] [place] [facility] [address] [id number] [place] [address] Jul, [facility] [place] [facility] [address] [id number] [place] [address] Jul, [facility] [place] [facility] [address] [id number] [place] [address] Jul, [facility] [place] [facility] [address] [id number] [place] [address] Jun, [facility] [place] [facility] [address] [id number] [place] [address] Jun, [facility] [place] [facility] [address] [id number] [place] [address] May, [facility] [place] [facility] [address] [id number] [place] [address] May, [facility] [place] [facility] [address] [id number], [place] [address] Apr, [facility] [address] [id number] [place] [address] Apr, [facility] [place] [facility] [address] [id number] [place] [address] Mar, [facility] [place] [facility] [address] [id number] [place] [address] Mar, [facility] [place] [facility] [address] [id number] [place] [address] Mar, [facility] [place] [facility] [address] [id number] [place] [address] Feb, [facility] [place] [facility] [address] [id number] [place] [address] Feb, [facility] [place] [facility] [address] [id number] [place] [address] Feb, [facility] [place] [facility] [address] [id number] [place] [address] Feb, [facility] [place] [facility] [address] [id number] [place] [address] Feb, [facility] [place] [facility] [address] [id number] [place] [address] Jan, [facility] [place] [facility] [address] [id number], [place] [address] Dec, [facility] [place] [facility] [address] [id number], [place] [address] Nov, [facility] [place] [facility] [address] [id number] [place] [address] October, [facility] [place] [facility] [address] [id number] [place] [address] Sep, [facility] [place] [facility] [address] [id number] [place] [address] Aug, [facility] [place] [facility] [address] [id number] [place] [address] 20 Aug, 2012 [facility] [address] [id number] [place] [address] 18 Aug, 2012 [facility] [place] [facility] [address] [id number] [place] [address] 21 May, 2012 [facility] [address] [id number] [place] [address] 12 May, 2012 [facility] [place] [facility] [address] [id number] [place] [address] 12 May, 2012 [facility] [address] [id number] [place] [address] May, [facility] [place] [facility] [address] [id number] [place] [address] May, [facility] [address] [id number] [place] [address] 16 Apr, 2012 [facility] [address] [id number] [place] [address] 16 Apr, 2012 [facility] [place] [facility] [address] [id number] [place] [address] 14 Apr, 2012 [facility] [address] [id number] [place] [address] 14 Apr, 2012 [facility] [place] [facility] [address] [id number] [place] [address] 07 Apr, 2012 [facility] [place] [facility] [address] [id number] [place] [address] 07 Apr, 2012 [facility] [place] [facility] [address] [id number] [place] [address] 05 Apr, 2012 [facility] [place] [facility] [address] [id number] [place] [address] 05 Apr, 2012 [facility] [place] [facility] [address] [id number] [place] [address] Mar, [facility] [place] [facility] [address] [id number] [place] [address] Mar, [facility] [place] [facility] [address] [id number] [place] [address] Mar, [facility] [place] [facility] [address] [id number] [place] [address] Mar, [facility] [place] [facility] [address] [id number] [place] [address] Mar, [facility] [place] [facility] [address] [id number] [place] [address] Mar, [facility] [place] [facility] [address] [id number] [place] [address] Mar, [facility] [place] [facility] [address] [id number] [place] [address] 28 Feb, 2012 [facility] [place] [facility] [address] [id number] [place] [address] 24 Feb, 2012 [facility] [place] [facility] [address] [id number] [place] [address] 20 Feb, 2012 [facility] [place] [facility] [address] [id number] [place] [address] Feb, [facility] [place] [facility] [address] [id number] [place] [address] 28 Jan, 2012 [facility] [place] [facility] [address] [id number] [place] [address] 27 Jan, 2012 [facility] [place] [facility] [address] [id number] [place] [address] 17 Jan, 2012 [facility] [place] [facility] [address] [id number] [place] [address] 15 Jan, 2012 [facility] [place] [facility] [address] [id number] [place] [address] 13 Jan, 2012 [facility] [place] [facility] [address] [id number] [place] [address] Jan, [facility] [place] [facility] [address] [id number] [place] [address] Dec, [facility] [place] [facility] [address] [id number] [place] [address] Dec, [facility] [place] [facility] [address] [id number] [place] [address] Dec, [facility] [place] [facility] [address] [id number] [place] [address] Dec, [facility] [place] [facility] [address] [id number] [place] [address] Dec, [facility] [place] [facility] [address] [id number] [place] [address] Dec, [facility] [address] [id number] [place] [address] Dec, [facility] [place] [facility] [address] [id number] [place] [address] Dec, [facility] [place] [facility] [address] [id number] [place] [address] Nov, [facility] [place] [facility] [address] [id number] [place] [address] Nov, [facility] [place] [facility] [address] [id number] [place] [address] Nov, [facility] [place] [facility] [address] [id number] [place] [address] Nov, [facility] [place] [facility] [address] [id number] [place] [address] October, [facility] [place] [facility] [address] [id number] [place] [address] October, [facility] [place] [facility] [address] [id number] [place] [address] Sep, [facility] [place] [facility] [address] [id number] [place] [address] Sep, [facility] [place] [facility] [address] [id number] [place] [address] 27 Aug, 2011 [facility] [place] [facility] [address] [id number] [place] [address] 16 Aug, 2011 [facility] [place] [facility] [address] [id number] [place] [address] 07 Aug, 2011 [facility] [place] [facility] [address] [id number] [place] [address] 07 Aug, 2011 [facility] [place] [facility] [address] [id number] [place] [address] 05 Aug, 2011 [facility] [place] [facility] [address] [id number] [place] [address] 08 Jul, 2011 [facility] [place] [facility] [address] [id number] [place] [address] Jul, [facility] [place] [facility] [address] [id number] [place] [address] Jul, [facility] [place] [facility] [address] [id number] [place] [address] Jul, [facility] [place] [facility] [address] [id number] [place] [address] Jun, [facility] [place] [facility] [address] [id number] [place] [address] Jun, [facility] [place] [facility] [address] [id number] [place] [address] Jun, [facility] [place] [facility] [address] [id number] [place] [address]- 4723 Jun, [facility] [place] [facility] [address] [id number] [place] [address] Jun, [facility] [place] [facility] [address] [id number], [place] [address] May, [facility] [address] [id number] [place] [address] May, [facility] [place] [facility] [address] [id number] [place] [address] 1710 May, [facility] [place] [facility] [address] [id number] [place] [address]- [address] May, [facility] [place] [facility] [address] [id number] [place] [address] May, [facility] [place] [facility] [address] [id number] [place] [address] May, [facility] [place] [facility] [address] [id number] [place] [address] Apr, [facility] [place] [facility] [address] [id number] [place] [address] Apr, [facility] [place] [facility] [address] [id number] [place] [address]- [address] Mar, [facility] [place] [facility] [address] [id number] [place] [address] 1425 Mar, [facility] [place] [facility] [address] [id number] [place] [address] October, [facility] [place] [facility] [address] [id number], [place] [address] May, [facility] [place] [facility] [address] [id number] [place] [address]- 289[address] Apr, [facility] [place] [facility] [address] [id number] [place] [address]- [address] Jul, [facility] [place] [facility] [address] [id number] [place] [address] May, [facility] [place] [facility] [address] [id number] [place] [address] May, [facility] [place] [facility] [address] [facility] [id number] [place] [address] May, [facility] [address] [facility] [id number], [place] [address] Apr, [facility] [address] [id number], [place] [address] Apr, [facility] [address] [facility] [id number], [place] [address] Mar, [facility] [address] [facility] [id number], [place] [address] Jan, [facility] [address] [facility] [id number], [place] [address] Nov, IMMUNIZATIONS No Known Immunizations SOCIAL HISTORY Never Assessed REASON FOR VISIT lab PLAN OF CARE VITAL SIGNS MEDICATIONS Unknown [...]
--- OUTSIDE RECORDS SUMMARY | 2018-02-19 21:49 | XMS REPORT ---
Author Author BOOGIE ARAUJO [facility] Address [address] [place] [address] Care Team Providers Care Corporate Scheduler Name Role Phone BOOGIE ARAUJO Unavailable PROBLEMS Type Condition ICD9-CM Code CUD17-SR Code Onset Dates Condition Status SNOMED Code Problem History of abnormal cervical Pap smear Z87.898 Active 651669707 Problem Thoracogenic scoliosis of thoracolumbar region M41.35 Active 89543620 Problem Uncontrolled type 2 diabetes mellitus without complication, without long-term current use of insulin E11.65 Active 733680768 Problem Diabetes type 2, controlled E11.9 Active 14440735 Problem Thyroid nodule E04.1 Active 271077548 Problem History of colon polyps Z86.010 Active 706267849 Problem Other iron deficiency anemia D50.8 Active 53744872 Problem Iron deficiency anemia due to chronic blood loss D50.0 Active 329095642 Problem Screening breast examination Z12.39 Active 141876127 Problem Allergic rhinitis, unspecified allergic rhinitis trigger, unspecified rhinitis seasonality J30.9 Active 70948313 Problem Controlled type 2 diabetes mellitus without complication, without long -term current use of insulin E11.9 Active 812789285 Problem Other chronic pain G89.29 Active 78681179 ALLERGIES No Information ENCOUNTERS Encounter Location Date Diagnosis [facility] [id number], [place] [address] Dec, [facility] [address], [place] [address] October, Diabetes type 2, controlled E11.9 and Acute cystitis without hematuria N30.00 [facility] [id number], [place] [address] 4804 October, [facility] [id number] [place] [address] 30971- 8714 October, [facility] [address], [place] [address] 1541 October, [facility] [id number] [place] [address] 04194- 0080 October, Other chronic pain G89.29 [facility] [address], [place] [address] 7937 Sep, Diabetes type 2, controlled E11.9 [facility] [id number] [place] [address] 98086- 1502 Sep, [facility] [id number] [place] [address] 11449- 8339 Sep, Diabetes type 2, controlled E11.9 [facility] [address], [place] [address] 0325 Sep, Other chronic pain G89.29 [facility] [address], [place] [address] 3988 Sep, Other iron deficiency anemia D50.8 [facility] [address], [place] [address] 6229 Sep, Other iron deficiency anemia D50.8 [facility] [address], [place] [address] 2543 Sep, Iron deficiency anemia due to chronic blood loss D50.0 and Dysuria R30.0 [facility] [address], [place] [address] 2542 Sep, Dysuria R30.0 [facility] [address], [place] [address] 2541 Sep, Iron deficiency anemia due to chronic blood loss D50.0 [facility] [address], [place] [address]- 2546 Sep, [facility] [address], [place] [address] 7967 Sep, Controlled type 2 diabetes mellitus without complication, without long-term current use of insulin E11.9 ; Leg cramps R25.2 ; Low back pain M54.5 and Other chronic pain G89.29 [facility] [id number] [place] [address] 54067- 9621 Sep, Controlled type 2 diabetes mellitus without complication, without long-term current use of insulin E11.9 ; Low back pain M54.5 ; Other chronic pain G89.29 and Leg cramps R25.2 [facility] [id number] [place] [address] 89290- 8924 Aug, Other chronic pain G89.29 [facility] [id number] [place] [address] 44264- 1082 Jul, Other chronic pain G89.29 [facility] [id number] [place] [address] 88899- 9591 16 Jul, 2017 Pneumonia of left lower lobe due to infectious organism J18.1 [facility] [id number] [place] [address] 75375 -7106 12 Jul, 2017 Dysuria R30.0 ; Cough in adult patient R05 and Pneumonia of left lower lobe due to infectious organism J18.1 [facility] [id number] [place] [address] 67999- 6110 08 Jul, 2017 [facility] [id number] [place] [address] 95196- 9607 Jun, Other chronic pain G89.29 [facility] [id number] [place] [address] 71306- 5090 Jun, [facility] [address] [address]- 1020 Jun, Diabetes type 2, controlled E11.9 ; Back muscle spasm M62.830 and Other chronic pain G89.29 [facility] [id number] [place] [address] 68796- 0190 09 Anthony, 2018 Screening breast examination Z12.31 [facility] [address], [place] [address] 5940 May, Other chronic pain G89.29 [facility] [id number] [place] [address] 06677- 4422 May, [facility] [address] [place] [address] 38543- 6999 May, UTI (urinary tract infection) N39.0 [facility] [id number] [place] [address] 52086- 8609 04 May, 2017 Dysuria R30.0 [facility] [id number] [place] [address] 86371- 4452 May, Dysuria R30.0 [facility] [id number] [place] [address] 23081- 8445 May, Diabetes type 2, controlled E11.9 ; 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 and Other chronic pain G89.29 [facility] [address] [place] [address] 64715- 7222 Apr, Diabetes type 2, controlled E11.9 [facility] [address] [place] [address] 11790 -6684 30 Mar, 2017 Paronychia of great toe, right L03.031 and Dysuria R30.0 [facility] [address], [place] [address]- 2906 09 Mar, 2017 Diabetes type 2, controlled E11.9 [facility] [address] [place] [address] 48632- 6870 28 Feb, 2017 Diabetes type 2, controlled E11.9 [facility] [address] [address] 13 Feb, 2017 Dental examination Z01.20 [facility] [address] [place] [address] 57661- 9926 11 Feb, 2017 Diabetes type 2, controlled E11.9 [facility] [address] [facility] [id number] [address] 5826 07 Feb, 2017 Diabetes type 2, controlled E11.9 [facility] [address], [place] [address]- 3346 Jan, Diabetes type 2, controlled E11.9 [facility] [address], [place] [address]- 9674 Dec, Diabetes type 2, controlled E11.9 [facility] [address] [facility] [id number] [place] [address]- 8026 Dec, Diabetes type 2, controlled E11.9 [facility] [address] [place] [address]- 7296 Nov, Diabetes type 2, controlled E11.9 [facility] [address], [place] [address]- 8267 Nov, Diabetes type 2, controlled E11.9 [facility] [address], [place] [address]- 9479 Nov, Diabetes type 2, controlled E11.9 [facility] [address], [place] [address]- 3712 Nov, Diabetes type 2, controlled E11.9 [facility] [address], [place] [address]- 8596 Nov, Diabetes type 2, controlled E11.9 [facility] [address], [place] [address]- 0837 Nov, Diabetes type 2, controlled E11.9 [facility] [address], [place] [address]- 6181 October, Pain in unspecified shoulder M25.519 [facility] [address] [place] [address]- 5360 October, Diabetes type 2, controlled E11.9 and Cellulitis of right lower extremity L03.115 [facility] [id number] [place] [address] 11700- 1227 October, Pain in unspecified shoulder M25.519 [facility] [id number] [place] [address] 74054- 4313 Sep, Diabetes type 2, controlled E11.9 [facility] [id number] [place] [address] 20949- 5307 Aug, Pain in unspecified shoulder M25.519 [facility] [id number] [place] [address] 80447- 8971 Aug, Diabetes type 2, controlled E11.9 [facility] [address] 48160- 1049 Aug, Diabetes type 2, controlled E11.9 ; Dark urine R82.99 and Localized edema R60.0 [facility] [address] 30392- 2898 Aug, Pain in unspecified shoulder M25.519 [facility] [id number] [place] [address] 13189- 1254 Jul, Pain in unspecified shoulder M25.519 [facility] [id number] [place] [address] 52897- 0018 Jul, [facility] [id number] [place] [address] 18397- 7054 Jul, Diabetes type 2, controlled E11.9 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 [facility] [id number] [place] [address] 51606- 3951 Jun, Diabetes type 2, controlled E11.9 [facility] [id number] [place] [address] 07499- 4503 Jun, Screening breast examination Z12.39 and Allergic rhinitis, unspecified allergic rhinitis trigger, unspecified rhinitis seasonality J30.9 [facility] [id number] [place] [address] 62354- 5787 Jun, Pain in unspecified shoulder M25.519 [facility] [id number] [place] [address] 79305- 2901 May, [facility] [id number] [place] [address] 69091- 9911 May, Pain in unspecified shoulder M25.519 [facility] [address] 74379- 3845 05 May, 2016 Thoracogenic scoliosis of thoracolumbar region M41.35 ; Low back pain M54.5 ; Other chronic pain G89.29 and Uncontrolled type 2 diabetes mellitus without complication, without long-term current use of insulin E11.65 [facility] [id number] [place] [address] 65083- 5110 Apr, [facility] [address] 70897- 2196 Apr, [facility] [address] 63072- 7062 Apr, History of type 2 diabetes mellitus Z86.39 and Encounter for immunization Z23 [facility] [id number] [place] [address] 03626- 4794 Mar, [facility] [id number] [place] [address] 63626- 8439 Mar, [facility] [id number] [place] [address] 92710- 1595 Feb, [facility] [id number] [place] [address] 12562- 0465 Jan, [facility] [address] 02864- 0751 Jan, [facility] [id number] [place] [address] 75870- 3749 Dec, [facility] [address] 19886 -7258 Dec, Sore throat J02.9 and Allergic rhinitis, unspecified allergic rhinitis type J30.9 [facility] [address], [place] [address]- 2677 Dec, Diabetes type 2, controlled E11.9 [facility] [address] [facility] [id number] [address]- 1414 Nov, [facility] [id number] [place] [address] 88534- 7980 Nov, [facility] [address], [place] [address]- 5977 October, [facility] [id number] [place] [address] 71004- 4456 October, [facility] [address], [place] [address]- 5027 Sep, [facility] [address], [place] [address]- 0647 Aug, [facility] [address], [place] [address]- 5423 Aug, Diabetes type 2, controlled E11.9 ; UTI (urinary tract infection) N39.0 and Bacterial infection A49.9 [facility] [address], [place] [address]- 8746 Jul, [facility] [address], [place] [address]- 8459 Jul, [facility] [id number], [place] [address]- 1876 Jul, Pharyngitis J02.9 and Seborrheic keratoses L82.1 [facility] [id number], [place] [address]- 2527 Jun, [facility] [address], [place] [address]- 9757 May, [facility] [id number] [place] [address] 49963- 1572 May, Skin tags, multiple acquired L91.8 ; Seborrheic keratoses L82.1 and Diabetes type 2, controlled E11.9 [id number] [place] [address] 71642- 9486 May, Well woman exam Z01.419 ; Papanicolaou [...] Other fatigue R53.83 and Other hemorrhoids K64.[address] [address]69- 2008 May, [address] 90424- 4791 May, [address] 89708- 4997 Apr, Seborrheic keratosis L82.1 and Diabetes type 2, controlled E11.9 [id number] [place] [address] 61189- 3170 Apr, Seborrheic keratosis L82.1 and Diabetes type 2, controlled E11.9 [facility] [id number] [place] [address] 65026- 6500 Mar, [address] 77455- 3592 Mar, [address] 95293- 6680 06 Mar, 2015 Nevoid hyperpigmentation L81.9 ; Encounter for immunization Z23 ; Skin tags, multiple acquired L91.8 and Seborrheic keratoses L82.1 [facility] [address], [place] [address]- 6209 Feb, [facility] [id number] [place] [address] 79009- 4919 Feb, [facility] [id number] [place] [address] 56558- 4425 Feb, [facility] [id number] [place] [address] 21836- 1793 Feb, Diabetes 250.00 ; Tinea corporis 110.5 and Shoulder pain, left 719.41 [facility] [id number] [place] [address] 59845- 9758 Jan, [facility] [id number] [place] [address] 06050- 4734 Dec, [facility] [id number] [place] [address] 19380- 7484 Dec, [facility] [id number] [place] [address] 31301- 2384 Dec, Seborrheic keratoses 702.19 ; Diabetes 250.00 and Hypoglycemia 251.2 [facility] [address], [place] [address]- 5555 Nov, [facility] [id number] [place] [address] 11437- 6618 Nov, Abnormal mammogram 793.80 [facility] [id number] [place] [address] 91625- 6719 October, Diabetes 250.00 and Colon polyp 211.3 [facility] [id number] [place] [address] 90834- 3990 Sep, [facility] [address] [place] [address] 35765- 0865 Sep, [facility] [id number] [place] [address]- 9623 Sep, [facility] [address] [id number] [place] [address]- 8829 Aug, [facility] [place] [facility] [address] [id number] [place] [address]- 8541 Aug, [facility] [address] [id number] [place] [address]- 2242 Jul, [facility] [place] [facility] [address] [id number] [place] [address]- 5719 Jul, [facility] [address] [id number] [place] [address]- 1437 Jun, [facility] [place] [facility] [address] [id number] [place] [address]- 0123 Jun, [facility] [address] [id number] [place] [address]- 9875 Jun, [facility] [address] [id number] [place] [address]- 4543 Jun, [facility] [place] [facility] [address] [id number] [place] [address]- 5627 Jun, [facility] [address] [facility] [id number] [place] [address]- 7677 Jun, [facility] [address] [id number] [place] [address]- 5005 May, [facility] [place] [facility] [address] [id number] [place] [address]- 8056 May, [facility] [place] [facility] [address] [id number] [place] [address]- 5510 Apr, [facility] [place] [facility] [address] [id number] [place] [address]- 7480 Apr, [facility] [place] [facility] [address] [id number] [place] 3603 Apr, [facility] [place] [facility] [address] [id number] [place] [address]- 9056 Apr, [facility] [place] [facility] [address] [id number] [place] [address]- 4697 Apr, [facility] [place] [facility] [address] [id number] [place] [address]- 3672 Apr, [facility] [place] [facility] [address] [id number] [place] [address]- 4383 Apr, [facility] [place] [facility] [address] [id number] [place] [address]- 8662 Apr, [facility] [place] [facility] [address] [id number] [place] [address]- 2267 Apr, [facility] [place] [facility] [address] [id number] [place] [address]- 9611 Apr, [facility] [place] [facility] [address] [id number] [place] [address]- 6544 Mar, [facility] [place] [facility] [address] [id number] [place] [address]- 9912 Mar, [facility] [place] [facility] [address] [id number], [place] [address]- 7111 Mar, [facility] [place] [facility] [address] [id number], [place] [address]- 1783 Mar, [facility] [place] [facility] [address] [id number], [place] [address]- 8294 Mar, [facility] [place] [facility] [address] [id number] [place] [address]- 7197 Mar, [facility] [place] [facility] [address] [id number], [place] [address]- 9520 Mar, [facility] [place] [facility] [address] [id number], [place] [address]- 5445 Mar, [facility] [place] [facility] [address] [id number], [place] [address]- 3056 Feb, [facility] [place] [facility] [address] [id number] [place] [address]- 1996 Feb, [facility] [place] [facility] [address] [id number] [place] [address]- 3833 Feb, [facility] [place] [facility] [address] [id number] [place] [address]- 4893 Feb, [facility] [place] [facility] [address] [id number] [place] [address]- 7622 Jan, [facility] [place] [facility] [address] [id number] [place] [address]- 4927 Jan, [facility] [place] [facility] [address] [id number] [place] [address]- 5565 Dec, [facility] [place] [facility] [address] [id number] [place] [address]- 5494 Dec, [facility] [place] [facility] [address] [id number] [place] [address]- 9525 Nov, [facility] [place] [facility] [address] [id number] [place] [address]- 1291 Nov, [facility] [place] [facility] [address] [id number] [place] [address]- 3837 Nov, [facility] [place] [facility] [address] [id number] [place] [address]- 3115 Nov, [facility] [place] [facility] [address] [id number] [place] [address]- 2046 October, [facility] [place] [facility] [address] [id number] [place] [address]- 2810 October, [facility] [place] [facility] [address] [id number] [place] [address]- 2297 October, [facility] [place] [facility] [address] [id number] [place] [address]- 2280 October, [facility] [place] [facility] [address] [id number] [place] [address]- 6276 October, [facility] [place] [facility] [address] [id number] [place] 5663 October, [facility] [place] [facility] [address] [id number] [place] [address]- 1797 October, [facility] [place] [facility] [address] [id number] [place] [address]- 2551 October, [facility] [place] [facility] [address] [id number] [place] [address]- 1408 Aug, [facility] [place] [facility] [address] [id number] [place] [address]- 9395 Aug, [facility] [place] [facility] [address] [id number] [place] [address]- 4613 Jul, [facility] [place] [facility] [address] [id number] [place] [address]- 2233 Jul, [facility] [place] [facility] [address] [id number] [place] [address]- 4506 Jul, [facility] [place] [facility] [address] [id number] [place] [address]- 8449 Jul, [facility] [place] [facility] [address] [id number] [place] [address]- 0749 Jul, [facility] [place] [facility] [address] [id number] [place] [address]- 9852 Jun, [facility] [place] [facility] [address] [id number] [place] 2668 Jun, [facility] [place] [facility] [address] [id number] [place] [address] May, [facility] [place] [facility] [address] [id number] [place] [address] May, [facility] [place] [facility] [address] [id number], [place] [address] Apr, [facility] [address] [id number] [place] [address] Apr, [facility] [place] [facility] [address] [id number] [place] [address] Mar, [facility] [place] [facility] [address] [id number] [place] [address] Mar, [facility] [place] [facility] [address] [id number] [place] [address] Mar, [facility] [place] [facility] [address] [id number] [place] [address] Feb, [facility] [place] [facility] [address] [id number] [place] [address] Feb, [facility] [place] [facility] [address] [id number] [place] [address] Feb, [facility] [place] [facility] [address] [id number] [place] [address] Feb, [facility] [place] [facility] [address] [id number] [place] [address] Feb, [facility] [place] [facility] [address] [id number] [place] [address] Jan, [facility] [place] [facility] [address] [id number], [place] [address] Dec, [facility] [place] [facility] [address] [id number], [place] [address] Nov, [facility] [place] [facility] [address] [id number] [place] [address] October, [facility] [place] [facility] [address] [id number] [place] [address] Sep, [facility] [place] [facility] [address] [id number] [place] [address] Aug, [facility] [place] [facility] [address] [id number] [place] [address] 20 Aug, 2012 [facility] [address] [id number] [place] [address] 18 Aug, 2012 [facility] [place] [facility] [address] [id number] [place] [address]- [address] 21 May, 2012 [facility] [address] [id number] [place] [address] 12 May, 2012 [facility] [place] [facility] [address] [id number] [place] [address]- [address]103 12 May, 2012 [facility] [address] [id number] [place] [address] May, [facility] [place] [facility] [address] [id number] [place] [address] May, [facility] [address] [id number] [place] [address] 16 Apr, 2012 [facility] [address] [id number] [place] [address] 16 Apr, 2012 [facility] [place] [facility] [address] [id number] [place] [address] 14 Apr, 2012 [facility] [address] [id number] [place] [address] 14 Apr, 2012 [facility] [place] [facility] [address] [id number] [place] [address] 07 Apr, 2012 [facility] [place] [facility] [address] [id number] [place] [address] 07 Apr, 2012 [facility] [place] [facility] [address] [id number] [place] [address]- [address] 05 Apr, 2012 [facility] [place] [facility] [address] [id number] [place] [address] 05 Apr, 2012 [facility] [place] [facility] [address] [id number] [place] [address] Mar, [facility] [place] [facility] [address] [id number] [place] [address] 14[address] Mar, [facility] [place] [facility] [address] [id number] [place] [address] Mar, [facility] [place] [facility] [address] [id number] [place] [address] Mar, [facility] [place] [facility] [address] [id number] [place] [address] Mar, [facility] [place] [facility] [address] [id number] [place] [address] Mar, [facility] [place] [facility] [address] [id number] [place] [address] Mar, [facility] [place] [facility] [address] [id number] [place] [address] 28 Feb, 2012 [facility] [place] [facility] [address] [id number] [place] [address] 24 Feb, 2012 [facility] [place] [facility] [address] [id number] [place] [address] 20 Feb, 2012 [facility] [place] [facility] [address] [id number] [place] [address] Feb, [facility] [place] [facility] [address] [id number] [place] [address] 28 Jan, 2012 [facility] [place] [facility] [address] [id number] [place] [address] 27 Jan, 2012 [facility] [place] [facility] [address] [id number] [place] [address]71 17 Jan, 2012 [facility] [place] [facility] [address] [id number] [place] [address] 15 Jan, 2012 [facility] [place] [facility] [address] [id number] [place] [address] 39[address] 13 Jan, 2012 [facility] [place] [facility] [address] [id number] [place] [address] Jan, [facility] [place] [facility] [address] [id number] [place] [address] Dec, [facility] [place] [facility] [address] [id number] [place] [address] Dec, [facility] [place] [facility] [address] [id number] [place] [address] Dec, [facility] [place] [facility] [address] [id number] [place] [address]60 Dec, [facility] [place] [facility] [address] [id number] [place] [address] Dec, [facility] [place] [facility] [address] [id number] [place] [address] Dec, [facility] [address] [id number] [place] [address] Dec, [facility] [place] [facility] [address] [id number] [place] [address] Dec, [facility] [place] [facility] [address] [id number] [place] [address] Nov, [facility] [place] [facility] [address] [id number] [place] [address]60 Nov, [facility] [place] [facility] [address] [id number] [place] [address] Nov, [facility] [place] [facility] [address] [id number] [place] [address] Nov, [facility] [place] [facility] [address] [id number] [place] [address] October, [facility] [place] [facility] [address] [id number] [place] [address] 1416 October, [facility] [place] [facility] [address] [id number] [place] [address] Sep, [facility] [place] [facility] [address] [id number] [place] [address] Sep, [facility] [place] [facility] [address] [id number] [place] [address] 27 Aug, 2011 [facility] [place] [facility] [address] [id number] [place] [address]76 16 Aug, 2011 [facility] [place] [facility] [address] [id number] [place] [address] 07 Aug, 2011 [facility] [place] [facility] [address] [id number] [place] [address] 58[address] 07 Aug, 2011 [facility] [place] [facility] [address] [id number] [place] [address] 05 Aug, 2011 [facility] [place] [facility] [address] [id number] [place] [address]37 08 Jul, 2011 [facility] [place] [facility] [address] [id number] [place] [address] Jul, [facility] [place] [facility] [address] [id number] [place] [address] Jul, [facility] [place] [facility] [address] [id number] [place] [address] Jul, [facility] [place] [facility] [address] [id number] [place] [address] Jun, [facility] [place] [facility] [address] [id number] [place] [address] Jun, [facility] [place] [facility] [address] [id number] [place] [address]107 Jun, [facility] [place] [facility] [address] [id number] [place] [address] 6581 Jun, [facility] [place] [facility] [address] [id number] [place] [address]135 Jun, [facility] [place] [facility] [address] [id number], [place] [address] May, [facility] [address] [id number] [place] [address] May, [facility] [place] [facility] [address] [id number] [place] [address] May, [facility] [place] [facility] [address] [id number] [place] [address]- 1411 May, [facility] [place] [facility] [address] [id number] [place] [address] May, [facility] [place] [facility] [address] [id number] [place] [address] May, [facility] [place] [facility] [address] [id number] [place] [address] Apr, [facility] [place] [facility] [address] [id number] [place] [address]- [address]15 Apr, [facility] [place] [facility] [address] [id number] [place] [address] Mar, [facility] [place] [facility] [address] [id number] [place] [address] 6468 Mar, [facility] [place] [facility] [address] [id number] [place] [address] October, [facility] [place] [facility] [address] [id number], [place] [address] May, [facility] [place] [facility] [address] [id number] [place] [address] Apr, [facility] [place] [facility] [address] [id number] [place] [address] 37[address] Jul, [facility] [place] [facility] [address] [id number] [place] [address]183 May, [facility] [place] [facility] [address] [id number] [place] [address] 267[address] May, [facility] [place] [facility] [address] [facility] [id number] [place] [address] May, [facility] [address] [id number], [place] [address] Apr, [facility] [address] [id number], [place] [address] Apr, [facility] [address] [facility] [id number], [place] [address] Mar, [facility] [address] [facility] [id number], [place] [address] Jan, [facility] [address] [facility] [id number], [place] [address] Nov, IMMUNIZATIONS No Known Immunizations SOCIAL HISTORY Never Assessed REASON FOR VISIT Controlled Med Refill/Question PLAN OF CARE VITAL SIGNS MEDICATIONS Medication Instructions Dosage Frequency Start Date End Date Duration Status [place] 7.5-325 MG Orally 4 times a day [...]
--- OUTSIDE RECORDS SUMMARY | 2018-02-19 21:51 | XMS REPORT ---
Author Author BOOGIE ARAUJO Organization [facility] [place] [facility] Address [address] [place] [address] Care Team Providers Care Turkish Line Attendant Name Role Phone BOOGIE ARAUJO Unavailable PROBLEMS Type Condition ICD9-CM Code MNY84-OV Code Onset Dates Condition Status SNOMED Code Problem History of abnormal cervical Pap smear Z87.898 Active 591383293 Problem Thoracogenic scoliosis of thoracolumbar region M41.35 Active 69865164 Problem Uncontrolled type 2 diabetes mellitus without complication, without long-term current use of insulin E11.65 Active 458050588 Problem Diabetes type 2, controlled E11.9 Active 05333595 Problem Thyroid nodule E04.1 Active 605275413 Problem History of colon polyps Z86.010 Active 904056098 Problem Other iron deficiency anemia D50.8 Active 98245532 Problem Iron deficiency anemia due to chronic blood loss D50.0 Active 556409200 Problem Screening breast examination Z12.39 Active 524823803 Problem Allergic rhinitis, unspecified allergic rhinitis trigger, unspecified rhinitis seasonality J30.9 Active 61047034 Problem Controlled type 2 diabetes mellitus without complication, without long -term current use of insulin E11.9 Active 859521286 Problem Other chronic pain G89.29 Active 68579579 ALLERGIES No Information ENCOUNTERS Encounter Location Date Diagnosis [facility] [place] [facility] [id number] [place] [address] 51859- 2347 Dec, [facility] [place] [facility] [id number] [place] [address] 45343- 6839 Nov, [facility] [place] [facility] [id number] [place] [address] 48388- 3648 Nov, [facility] [place] [facility] [id number] [place] [address] 76304- 9681 October, Diabetes type 2, controlled E11.9 and Acute cystitis without hematuria N30.00 [facility] [place] [facility] [address] [facility] [id number], [place] [address] 2470 October, [facility] [place] [facility] [address] [address] 8026 October, [facility] [place] [facility] [address] [address] 8216 October, [facility] [place] [facility] [id number] [place] [address] 61281- 4658 October, Other chronic pain G89.29 [facility] [place] [facility] [address] [facility] [id number] [place] [address] 75662- 3077 Sep, Diabetes type 2, controlled E11.9 [facility] [place] [facility] [address] [address] 8636 Sep, [facility] [place] [facility] [id number] [place] [address] 33522- 6324 Sep, Diabetes type 2, controlled E11.9 [facility] [place] [facility] [address] [address] 5505 Sep, Other chronic pain G89.29 [facility] [place] [facility] [address], [place] [address] 8730 Sep, Other iron deficiency anemia D50.8 [facility] [place] [facility] [address], [place] [address] 1618 Sep, Other iron deficiency anemia D50.8 [facility] [place] [facility] [address], [place] [address] 2544 10 Sep, 2017 Iron deficiency anemia due to chronic blood loss D50.0 and Dysuria R30.0 [facility] [place] [facility] [address], [place] [address]- 6476 Sep, Dysuria R30.0 [facility] [place] [facility] [address], [place] [address]- 2546 04 Sep, 2017 Iron deficiency anemia due to chronic blood loss D50.0 [facility] [place] [facility] [address], [place] [address]- 9449 Sep, [facility] [place] [facility] [id number] [place] [address] 79090- 0353 Sep, Controlled type 2 diabetes mellitus without complication, without long-term current use of insulin E11.9 ; Leg cramps R25.2 ; Low back pain M54.5 and Other chronic pain G89.29 [facility] [place] [facility] [id number] [place] [address] 06067- 1279 02 Sep, 2017 Controlled type 2 diabetes mellitus without complication, without long-term current use of insulin E11.9 ; Low back pain M54.5 ; Other chronic pain G89.29 and Leg cramps R25.2 [place] [id number] [place] [address] 45317- 8495 Aug, Other chronic pain G89.29 [facility] [place] [facility] [id number] [place] [address] 96077- 0888 Jul, Other chronic pain G89.29 [facility] [place] [facility] [id number] [place] [address] 05284- 5479 16 Jul, 2017 Pneumonia of left lower lobe due to infectious organism J18.1 [facility] [address] [address] Jul, Dysuria R30.0 ; Cough in adult patient R05 and Pneumonia of left lower lobe due to infectious organism J18.1 [facility] [place] [facility] [address], [place] [address]- 2573 Jul, [facility] [place] [facility] [id number] [place] [address] 81219- 3013 Jun, Other chronic pain G89.29 [facility] [place] [facility] [address], [place] [address]- 1806 Jun, [facility] [place] [facility] [id number] [place] [address] 17151- 3881 Jun, Diabetes type 2, controlled E11.9 ; Back muscle spasm M62.830 and Other chronic pain G89.29 [facility] [place] [facility] [id number] [place] [address] 74726- 2308 09 Jun, 2017 Screening breast examination Z12.31 [facility] [place] [facility] [id number] [place] [address] 23135- 3010 May, Other chronic pain G89.29 [facility] [place] [facility] [id number] [place] [address] 58283- 6086 May, [facility] [place] [facility] [id number] [place] [address] 13354- 8543 May, UTI (urinary tract infection) N39.0 [facility] [facility] [id number] [place] [address] 02588- 1078 May, Dysuria R30.0 [facility] [facility] [id number] [place] [address] 54524- 3048 May, Dysuria R30.0 [facility] [facility] [id number] [place] [address] 16926- 1741 May, Diabetes type 2, controlled E11.9 ; longterm current use of 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 Z79.891 and Other chronic pain G89.29 [facility] [facility] [address] [place] [address] 34869- 6057 Apr, Diabetes type 2, controlled E11.9 [facility] [id number] [place] [address] 61555 -5013 Mar, Paronychia of great toe, right L03.031 and Dysuria R30.0 [facility] [facility] [id number] [place] [address] 96788- 1251 09 Mar, 2017 Diabetes type 2, controlled E11.9 [facility] [address], [place] [address]- 4331 Feb, Diabetes type 2, controlled E11.9 [facility] [address] [address] 13 Feb, 2017 Dental examination Z01.20 [facility] [address], [place] [address]- 9667 11 Feb, 2017 Diabetes type 2, controlled E11.9 [facility] [address], [place] [address]- 3273 07 Feb, 2017 Diabetes type 2, controlled E11.9 [facility] [address], [place] [address]- 2306 14 Jan, 2017 Diabetes type 2, controlled E11.9 [facility] [address], [place] [address]- 6661 Dec, Diabetes type 2, controlled E11.9 [facility] [address], [place] [address]- 0910 Dec, Diabetes type 2, controlled E11.9 [facility] [address], [place] [address]- 2772 Nov, Diabetes type 2, controlled E11.9 [facility] [address], [place] [address]- 3507 Nov, Diabetes type 2, controlled E11.9 [facility] [address], [place] [address]- 7570 Nov, Diabetes type 2, controlled E11.9 [facility] [address], [place] [address]- 8804 Nov, Diabetes type 2, controlled E11.9 [facility] [address], [place] [address]- 4452 14 Nov, 2016 Diabetes type 2, controlled E11.9 [facility] [address], [place] [address]- 9522 Nov, Diabetes type 2, controlled E11.9 [facility] [address], [place] [address]- 0958 October, Pain in unspecified shoulder M25.519 [facility] [facility] [address], [place] [address]- 4364 October, Diabetes type 2, controlled E11.9 and Cellulitis of right lower extremity L03.115 [facility] [address] [address]- 1211 October, Pain in unspecified shoulder M25.519 [facility] [id number] [place] [address] 90317- 0836 Sep, Diabetes type 2, controlled E11.9 [facility] [id number] [place] [address] 08262- 6033 Aug, Pain in unspecified shoulder M25.519 [facility] [id number] [place] [address] 04070- 8337 Aug, Diabetes type 2, controlled E11.9 [place] [id number] [place] [address] 05519- 6945 Aug, Diabetes type 2, controlled E11.9 ; Dark urine R82.99 and Localized edema R60.0 [place] [id number] [place] [address] 76177- 3860 Aug, Pain in unspecified shoulder M25.519 [facility] [address] [place] [address] 51335- 2292 Jul, Pain in unspecified shoulder M25.519 [facility] [address] [place] [address] 10442- 4947 Jul, [facility] [id number] [place] [address] 72948- 7522 Jul, Diabetes 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, 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 E11.9 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 [facility] [address] [place] [address] 41548- 4846 Jun, Diabetes type 2, controlled E11.9 [facility] [address] [place] [address] 28430- 8911 Jun, Screening breast examination Z12.39 and Allergic rhinitis, unspecified allergic rhinitis trigger, unspecified rhinitis seasonality J30.9 [place] [address] 05148- 9853 10 Jun, 2016 Pain in unspecified shoulder M25.519 [place] [address] 58750- 9035 May, [place] [address] 49570- 8917 May, Pain in unspecified shoulder M25.519 [place] [address] 11621- 9400 05 May, 2016 Thoracogenic scoliosis of thoracolumbar region M41.35 ; Low back pain M54.5 ; Other chronic pain G89.29 and Uncontrolled type 2 diabetes mellitus without complication, without long-term current use of insulin E11.65 [place] [address] 84075- 6718 Apr, [place] [address] 27381- 4380 Apr, [place] [address] 90293- 8365 04 Apr, 2016 History of type 2 diabetes mellitus Z86.39 and Encounter for immunization Z23 [place] [id number] [place] [address] 76143- 7842 Mar, [place] [address] 64182- 8061 Mar, [place] [address] 04133- 6297 Feb, [place] [address] 43808- 6846 Jan, [place] [address] 94780- 1427 Jan, [facility] [address] [facility] [id number] [address]- 7458 Dec, [facility] [address], [place] [address] -5981 Dec, Sore throat J02.9 and Allergic rhinitis, unspecified allergic rhinitis type J30.9 [facility] [address], [place] [address]- 7066 Dec, Diabetes type 2, controlled E11.9 [facility] [facility] [address] [facility] [id number], [place] [address]- 0292 Nov, [facility] [facility] [address], [place] [address]- 5096 Nov, [facility] [facility] [address], [place] [address]- 4950 October, [facility] [facility] [address], [place] [address]- 5505 October, [facility] [facility] [address], [place] [address]- 4651 Sep, [facility] [facility] [address], [place] [address]- 0585 Aug, [facility] [facility] [id number], [place] [address]- 1341 Aug, Diabetes type 2, controlled E11.9 ; UTI (urinary tract infection) N39.0 and Bacterial infection A49.9 [facility] [facility] [id number], [place] [address]- 5561 Jul, [facility] [facility] [address], [place] [address]- 9105 Jul, [facility] [facility] [id number], [place] [address]- 1489 Jul, Pharyngitis J02.9 and Seborrheic keratoses L82.1 [place] [address] [place] [address] 62707- 2696 Jun, [place] [address] 15172- 8056 May, [place] [id number] [place] [address] 09480- 8755 May, Skin tags, multiple acquired L91.8 ; Seborrheic keratoses L82.1 and Diabetes type 2, controlled E11.9 [place] [id number] [place] [address] 36699- 2035 May, Well woman exam Z01.419 ; Papanicolaou [...] R53.83 and Other hemorrhoids K64.8 [place] [id number] [place] [address] 51350- 3026 May, [place] [id number] [place] [address] 80852- 8720 May, [place] [id number] [place] [address] 94262- 6730 Apr, Seborrheic keratosis L82.1 and Diabetes type 2, controlled E11.9 [place] [id number] [place] [address] 86381- 9399 Apr, Seborrheic keratosis L82.1 and Diabetes type 2, controlled E11.9 [place] [id number] [place] [address] 01913- 7758 Mar, [place] [address] 06735- 0179 Mar, [facility] [address], [place] [address]- 4698 Mar, Nevoid hyperpigmentation L81.9 ; Encounter for immunization Z23 ; Skin tags, multiple acquired L91.8 and Seborrheic keratoses L82.1 [facility] [id number] [place] [address] 77787- 6819 Feb, [facility] [id number] [place] [address] 22511- 0453 Feb, [facility] [facility] [id number] [place] [address] 35298- 9179 Feb, [facility] [facility] [id number] [place] [address] 37995- 4079 Feb, Diabetes 250.00 ; Tinea corporis 110.5 and Shoulder pain, left 719.41 [facility] [id number] [place] [address] 95588- 8542 Jan, [facility] [id number] [place] [address] 95115- 5886 Dec, [facility] [id number] [place] [address] 34920- 2656 Dec, [facility] [facility] [address], [place] [address]- 1520 Dec, Seborrheic keratoses 702.19 ; Diabetes 250.00 and Hypoglycemia 251.2 [facility] [address] [place] [address] 32198- 0708 Nov, [facility] [id number] [place] [address] 07956- 6242 Nov, Abnormal mammogram 793.80 [facility] [id number] [place] [address] 29898- 0441 October, Diabetes 250.00 and Colon polyp 211.3 [facility] [id number] [place] [address]- 5529 29 Sep, 2014 [facility] [address] [id number] [place] [address]- 1984 14 Sep, 2014 [facility] [place] [facility] [address] [id number] [place] [address]- 7426 Sep, [facility] [address] [id number] [place] [address]- 8298 Aug, [facility] [place] [facility] [address] [id number] [place] [address]- 1057 Aug, [facility] [address] [id number] [place] [address]- 0102 Jul, [facility] [place] [facility] [address] [id number] [place] [address]- 3727 Jul, [facility] [address] [id number] [place] [address]- 5628 Jun, [facility] [address] [id number] [place] [address]- 1479 Jun, [facility] [place] [facility] [address] [facility] [id number] [place] [address]- 0474 Jun, [facility] [address] [facility] [id number] [place] [address]- 1242 Jun, [facility] [place] [facility] [address] [id number] [place] [address]- 6389 Jun, [facility] [place] [facility] [address] [id number] [place] [address]- 2135 Jun, [facility] [place] [facility] [address] [id number] [place] [address]- 9264 May, [facility] [place] [facility] [address] [id number] [place] [address]- 9766 May, [facility] [place] [facility] [address] [id number] [place] 7537 Apr, [facility] [place] [facility] [address] [id number] [place] [address]- 3936 Apr, [facility] [place] [facility] [address] [id number] [place] [address]- 7582 Apr, [facility] [place] [facility] [address] [id number] [place] [address]- 4993 Apr, [facility] [place] [facility] [address] [id number] [place] [address]- 7456 Apr, [facility] [place] [facility] [address] [id number] [place] [address]- 9886 Apr, [facility] [place] [facility] [address] [id number] [place] [address]- 6319 Apr, [facility] [place] [facility] [address] [id number] [place] [address]- 4051 Apr, [facility] [place] [facility] [address] [id number] [place] [address]- 7558 Apr, [facility] [place] [facility] [address] [id number] [place] [address]- 7923 Apr, [facility] [place] [facility] [address] [id number], [place] [address]- 6488 Mar, [facility] [place] [facility] [address] [id number], [place] [address]- 9876 Mar, [facility] [place] [facility] [address] [id number], [place] [address]- 0862 Mar, [facility] [place] [facility] [address] [id number], [place] [address]- 0699 Mar, [facility] [place] [facility] [address] [id number], [place] [address]- 9301 Mar, [facility] [place] [facility] [address] [id number], [place] [address]- 2182 Mar, [facility] [place] [facility] [address] [id number], [place] [address]- 7966 Mar, [facility] [place] [facility] [address] [id number] [place] [address]- 3941 Mar, [facility] [place] [facility] [address] [id number] [place] [address]- 6287 Feb, [facility] [place] [facility] [address] [id number] [place] [address]- 0848 Feb, [facility] [place] [facility] [address] [id number] [place] [address]- 1536 Feb, [facility] [place] [facility] [address] [id number] [place] [address]- 1064 Feb, [facility] [place] [facility] [address] [id number] [place] [address]- 1876 Jan, [facility] [place] [facility] [address] [id number] [place] [address]- 6927 Jan, [facility] [place] [facility] [address] [id number] [place] [address]- 3178 Dec, [facility] [place] [facility] [address] [id number] [place] [address]- 3631 Dec, [facility] [place] [facility] [address] [facility] [id number] [place] [address]- 0075 Nov, [facility] [place] [facility] [address] [id number] [place] [address]- 7644 Nov, [facility] [place] [facility] [address] [id number], [place] [address]- 5691 Nov, [facility] [place] [facility] [address] [id number] [place] [address]- 5019 Nov, [facility] [place] [facility] [address] [id number] [place] [address]- 9234 October, [facility] [place] [facility] [address] [id number] [place] [address]- 1523 October, [facility] [place] [facility] [address] [id number] [place] [address]- 3368 October, [facility] [place] [facility] [address] [id number] [place] [address]- 4[address] October, [facility] [place] [facility] [address] [id number] [place] [address] October, [facility] [place] [facility] [address] [id number] [place] [address] October, [facility] [place] [facility] [address] [id number] [place] [address] October, [facility] [place] [facility] [address] [id number] [place] [address] October, [facility] [place] [facility] [address] [id number] [place] [address] Aug, [facility] [place] [facility] [address] [id number] [place] [address] Aug, [facility] [place] [facility] [address] [id number] [place] [address] Jul, [facility] [place] [facility] [address] [id number] [place] [address] Jul, [facility] [place] [facility] [address] [id number] [place] [address] Jul, [facility] [place] [facility] [address] [id number] [place] [address] Jul, [facility] [place] [facility] [address] [id number] [place] [address] Jul, [facility] [place] [facility] [address] [id number] [place] [address] Jun, [facility] [place] [facility] [address] [id number] [place] [address] Jun, [facility] [place] [facility] [address] [id number], [place] [address] May, [facility] [place] [facility] [address] [id number] [place] [address] May, [facility] [place] [facility] [address] [id number], [place] [address] Apr, [facility] [place] [facility] [address] [id number] [place] [address]- [address] Apr, [facility] [place] [facility] [address] [id number] [place] [address] Mar, [facility] [place] [facility] [address] [id number] [place] [address] Mar, [facility] [place] [facility] [address] [id number] [place] [address] Mar, [facility] [place] [facility] [address] [id number] [place] [address] Feb, [facility] [place] [facility] [address] [id number] [place] [address] Feb, [facility] [place] [facility] [address] [id number] [place] [address]- [address] Feb, [facility] [place] [facility] [address] [id number] [place] [address] Feb, [facility] [place] [facility] [address] [id number], [place] [address] Feb, [facility] [place] [facility] [address] [id number], [place] [address] Jan, [facility] [place] [facility] [address] [id number] [place] [address] Dec, [facility] [place] [facility] [address] [id number], [place] [address] Nov, [facility] [place] [facility] [address] [id number] [place] [address] October, [facility] [place] [facility] [address] [id number] [place] [address] 19 Sep, 2012 [facility] [address] [id number] [place] [address] 26 Aug, 2012 [facility] [place] [facility] [address] [id number] [place] [address] 20 Aug, 2012 [facility] [address] [id number] [place] [address] 18 Aug, 2012 [facility] [address] [id number] [place] [address] 21 May, 2012 [facility] [address] [id number] [place] [address] 12 May, 2012 [facility] [address] [id number] [place] [address] 12 May, 2012 [facility] [address] [id number] [place] [place] [address] 11 May, 2012 [facility] [address] [id number] [place] [address] 11 May, 2012 [facility] [address] [id number] [place] [address] 16 Apr, 2012 [facility] [address] [id number] [place] [address] 16 Apr, 2012 [facility] [address] [id number] [place] [address] 14 Apr, 2012 [facility] [address] [id number] [place] [address] 14 Apr, 2012 [facility] [place] [facility] [address] [id number] [place] [address] 07 Apr, 2012 [facility] [place] [facility] [address] [id number] [place] [address] 07 Apr, 2012 [facility] [address] [id number] [place] [address] Apr, [facility] [place] [facility] [address] [id number] [place] [address] Apr, [facility] [place] [facility] [address] [id number] [place] [address] 15[address] Mar, [facility] [place] [facility] [address] [id number] [place] [address] Mar, [facility] [place] [facility] [address] [id number] [place] [address] 1871 Mar, [facility] [place] [facility] [address] [id number] [place] [address]841 Mar, [facility] [place] [facility] [address] [id number] [place] [address] Mar, [facility] [place] [facility] [address] [id number] [place] [address] 1868 Mar, [facility] [place] [facility] [address] [id number] [place] [address] 67[address] Mar, [facility] [place] [facility] [address] [id number] [place] [address]- 99[address] Feb, [facility] [place] [facility] [address] [id number] [place] [address] 15[address] 24 Feb, 2012 [facility] [place] [facility] [address] [id number] [place] [address] 20 Feb, 2012 [facility] [place] [facility] [address] [id number] [place] [address] 8912 11 Feb, 2012 [facility] [place] [facility] [address] [id number] [place] [address] Jan, [facility] [place] [facility] [address] [id number] [place] [address]- 25[address] Jan, [facility] [place] [facility] [address] [id number] [place] [address] 4714 Jan, [facility] [place] [facility] [address] [id number] [place] [address]- 8967 15 Jan, 2012 [facility] [place] [facility] [address] [id number] [place] [address]- [address] Jan, [facility] [place] [facility] [address] [id number] [place] [address] 0[address] Jan, [facility] [place] [facility] [address] [id number] [place] [address]- 14[address] Dec, [facility] [place] [facility] [address] [id number] [place] [address] Dec, [facility] [place] [facility] [address] [id number] [place] [address] 0047 Dec, [facility] [place] [facility] [address] [id number] [place] [address] 2356 Dec, [facility] [place] [facility] [address] [id number] [place] [address] 9993 Dec, [facility] [place] [facility] [address] [id number] [place] [address] 5937 Dec, [facility] [place] [facility] [address] [id number] [place] [address]- 8495 Dec, [facility] [place] [facility] [address] [id number] [place] [address] 7[address] Dec, [facility] [place] [facility] [address] [id number] [place] [address] 8518 Nov, [facility] [place] [facility] [address] [id number] [place] [address]- 1766 Nov, [facility] [place] [facility] [address] [id number] [place] [address]- 8743 Nov, [facility] [place] [facility] [address] [id number] [place] [address]- 0972 Nov, [facility] [place] [facility] [address] [id number] [place] [address] October, [facility] [place] [facility] [address] [id number] [place] [address]60 October, [facility] [place] [facility] [address] [id number] [place] [address]- 3264 30 Sep, 2011 [facility] [place] [facility] [address] [id number] [place] [address]- [address]186 Sep, [facility] [place] [facility] [address] [id number] [place] [address]- 8111 27 Aug, 2011 [facility] [place] [facility] [address] [id number] [place] [address] 16 Aug, 2011 [facility] [place] [facility] [address] [id number] [place] [address]- 2026 Aug, [facility] [place] [facility] [address] [id number] [place] [address]- 5[address] Aug, [facility] [place] [facility] [address] [id number] [place] [address]- 1022 Aug, [facility] [place] [facility] [address] [id number] [place] [address] 1366 Jul, [facility] [place] [facility] [address] [id number] [place] [address]- 3260 Jul, [facility] [place] [facility] [address] [id number] [place] [address]- 9299 Jul, [facility] [place] [facility] [address] [id number] [place] [address]- 9080 Jul, [facility] [place] [facility] [address] [id number] [place] [address]- 9058 Jun, [facility] [place] [facility] [address] [id number] [place] [address] Jun, [facility] [place] [facility] [address] [id number] [place] [address]- 1693 Jun, [facility] [place] [facility] [address] [id number], [place] [address] Jun, [facility] [place] [facility] [address] [id number] [place] [address]- 2739 Jun, [facility] [place] [facility] [address] [id number] [place] [address]- 5290 May, [facility] [place] [facility] [address] [id number] [place] [address]- 7151 May, [facility] [place] [facility] [address] [id number] [place] [address]- 6633 May, [facility] [place] [facility] [address] [id number] [place] [address]- 3537 May, [facility] [place] [facility] [address] [id number] [place] [address]- 4787 May, [facility] [place] [facility] [address] [id number] [place] [address]- 4900 May, [facility] [place] [facility] [address] [id number] [place] [address] Apr, [facility] [place] [facility] [address] [id number] [place] [address]- 9038 Apr, [facility] [place] [facility] [address] [id number] [place] [address]- 3642 Mar, [facility] [place] [facility] [address] [id number], [place] [address]- 285[address] Mar, [facility] [place] [facility] [address] [id number], [place] [address]- 6[address] October, [facility] [place] [facility] [address] [id number] [place] [address]- 1428 May, [facility] [place] [facility] [address] [id number] [place] [address]- 5612 Apr, [facility] [place] [facility] [address] [id number] [place] [address]- 0378 Jul, [facility] [place] [facility] [address] [id number], [place] [address] May, [facility] [place] [facility] [address] [id number], [place] [address] May, [facility] [place] [facility] [address] [id number], [place] [address]76 May, [facility] [place] [facility] [address] [id number], [place] [address] Apr, [facility] [place] [facility] [id number], [place] [address]85 Apr, [facility] [place] [facility] [id number], [place] [address] Mar, [facility] [place] [facility] [id number], [place] [address]- [address] Jan, [facility] [place] [facility] [address] [id number], [place] [address] Nov, IMMUNIZATIONS No Known Immunizations SOCIAL HISTORY Never Assessed REASON FOR VISIT Medication question PLAN OF CARE VITAL SIGNS MEDICATIONS Unknown [...]
--- OUTSIDE RECORDS SUMMARY | 2018-02-19 21:51 | XMS REPORT ---
Author Author BOOGIE ARAUJO 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 Name Role Phone BOOGIE ARAUJO Unavailable PROBLEMS Type Condition ICD9-CM Code SET35-UC Code Onset Dates Condition Status SNOMED Code Problem History of abnormal cervical Pap smear Z87.898 Active 635302424 Problem Thoracogenic scoliosis of thoracolumbar region M41.35 Active 48009399 Problem Uncontrolled type 2 diabetes mellitus without complication, without long-term current use of insulin E11.65 Active 351237867 Problem Diabetes type 2, controlled E11.9 Active 32158951 Problem Thyroid nodule E04.1 Active 517901673 Problem History of colon polyps Z86.010 Active 615905327 Problem Other iron deficiency anemia D50.8 Active 72040659 Problem Iron deficiency anemia due to chronic blood loss D50.0 Active 484175471 Problem Screening breast examination Z12.39 Active 035154311 Problem Allergic rhinitis, unspecified allergic rhinitis trigger, unspecified rhinitis seasonality J30.9 Active 45893869 Problem Controlled type 2 diabetes mellitus without complication, without long -term current use of insulin E11.9 Active 226549311 Problem Other chronic pain G89.29 Active 41857475 ALLERGIES No Information ENCOUNTERS Encounter Location Date Diagnosis [facility] [id number] [address] Dec, [facility] [id number] [address] 3559 Nov, Other chronic pain G89.29 [facility] [address] [address] 5[address] Nov, [facility] [id number] [address] 8410 Nov, [facility] [id number] [address] 8260 October, Diabetes type 2, controlled E11.9 and Acute cystitis without hematuria N30.00 [facility] [id number] [address]- 9234 October, [facility] [address] [address]- 2220 October, [facility] [id number] [place] [address] 34983- 2653 October, [facility] [id number] [place] [address] 67778- 8393 October, Other chronic pain G89.29 [facility] [id number] [place] [address] 39790- 3317 Sep, Diabetes type 2, controlled E11.9 [facility] [id number] [place] [address] 32876- 4085 Sep, [facility] [address] [place] [address] 19014- 7210 Sep, Diabetes type 2, controlled E11.9 [facility] [id number] [place] [address] 82608- 3500 Sep, Other chronic pain G89.29 [facility] [address] [address]- 6170 Sep, Other iron deficiency anemia D50.8 [facility] [address] [address]- 6321 Sep, Other iron deficiency anemia D50.8 [facility] [id number] [place] [address] 48881- 4686 Sep, Iron deficiency anemia due to chronic blood loss D50.0 and Dysuria R30.0 [facility] [address] [address]- 4973 Sep, Dysuria R30.0 [facility] [address] [address]- 0210 Sep, Iron deficiency anemia due to chronic blood loss D50.0 [facility] [id number] [place] [address] 36006- 6152 Sep, [facility] [id number] [place] [address] 99542- 1692 Sep, Controlled type 2 diabetes mellitus without complication, without long-term current use of insulin E11.9 ; Leg cramps R25.2 ; Low back pain M54.5 and Other chronic pain G89.29 [facility] [id number] [place] [address] 48039- 5600 Sep, Controlled type 2 diabetes mellitus without complication, without long-term current use of insulin E11.9 ; Low back pain M54.5 ; Other chronic pain G89.29 and Leg cramps R25.2 [facility] [id number] [place] [address] 58500- 4467 Aug, Other chronic pain G89.29 [facility] [id number] [place] [address] 48713- 1369 Jul, Other chronic pain G89.29 [facility] [id number] [place] [address] 96213- 3720 16 Jul, 2017 Pneumonia of left lower lobe due to infectious organism J18.1 [facility] [address] [address] 12 Jul, 2017 Dysuria R30.0 ; Cough in adult patient R05 and Pneumonia of left lower lobe due to infectious organism J18.1 [facility] [id number] [place] [address] 99502- 4851 08 Jul, 2017 [facility] [address] [place] [address] 95274- 4227 Jun, Other chronic pain G89.29 [facility] [id number] [place] [address] 16329- 4618 Jun, [facility] [address] [address]- 7181 Jun, Diabetes type 2, controlled E11.9 ; Back muscle spasm M62.830 and Other chronic pain G89.29 [facility] [address] [address]- 6200 Jun, Screening breast examination Z12.31 [facility] [id number] [place] [address] 95827- 0751 May, Other chronic pain G89.29 [facility] [id number] [place] [address] 27839- 0989 May, [facility] [id number] [place] [address] 35365- 3953 May, UTI (urinary tract infection) N39.0 [facility] [id number] [place] [address] 31211- 4333 May, Dysuria R30.0 [facility] [address] [place] [address] 78304- 8649 May, Dysuria R30.0 [facility] [address] [place] [address] 85079- 9209 04 May, 2017 Diabetes type 2, controlled E11.9 ; 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 and Other chronic pain G89.29 [facility] [address] [place] [address] 75925- 9263 Apr, Diabetes type 2, controlled E11.9 [facility] [address] [place] [address] 23461 -5133 Mar, Paronychia of great toe, right L03.031 and Dysuria R30.0 [facility] [address] [address]- 0604 Mar, Diabetes type 2, controlled E11.9 [facility] [id number] [address]- 9749 28 Feb, 2017 Diabetes type 2, controlled E11.9 [facility] [address] [id number] [address] 13 Feb, 2017 Dental examination Z01.20 [facility] [address] [address]- 0745 11 Feb, 2017 Diabetes type 2, controlled E11.9 [facility] [address] [address]- 8529 07 Feb, 2017 Diabetes type 2, controlled E11.9 [facility] [address] [address]- 2515 14 Jan, 2017 Diabetes type 2, controlled E11.9 [facility] [address] [address]- 4217 24 Dec, 2016 Diabetes type 2, controlled E11.9 [facility] [address] [address]- 9265 Dec, Diabetes type 2, controlled E11.9 [facility] [address] [address]- 8836 30 Nov, 2016 Diabetes type 2, controlled E11.9 [facility] [address] [address]- 8597 Nov, Diabetes type 2, controlled E11.9 [facility] [address] [address]- 9121 27 Nov, 2016 Diabetes type 2, controlled E11.9 [facility] [address] [address]- 3271 19 Nov, 2016 Diabetes type 2, controlled E11.9 [facility] [address] [address]- 0608 14 Nov, 2016 Diabetes type 2, controlled E11.9 [facility] [address] [address]- 5553 Nov, Diabetes type 2, controlled E11.9 [facility] [address] [address]- 6691 October, Pain in unspecified shoulder M25.519 [facility] [id number] [place] [address] 80138- 8709 October, Diabetes type 2, controlled E11.9 and Cellulitis of right lower extremity L03.115 [facility] [address] [place] [address] 25087- 2040 October, Pain in unspecified shoulder M25.519 [facility] [address] [place] [address] 16249- 6280 Sep, Diabetes type 2, controlled E11.9 [facility] [address] [place] [address] 52905- 1406 Aug, Pain in unspecified shoulder M25.519 [facility] [address] [place] [address] 19539- 4903 Aug, Diabetes type 2, controlled E11.9 [facility] [address] [place] [address] 32050- 9882 Aug, Diabetes type 2, controlled E11.9 ; Dark urine R82.99 and Localized edema R60.0 [facility] [address] [place] [address] 81360- 8239 Aug, Pain in unspecified shoulder M25.519 [facility] [address] [place] [address] 46878- 2420 Jul, Pain in unspecified shoulder M25.519 [facility] [address] [place] [address] 98730- 1446 Jul, [facility] [id number] [place] [address] 42293- 6453 Jul, Diabetes 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, 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 E11.9 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 [facility] [address] [place] [address] 96497- 7888 Jun, Diabetes type 2, controlled E11.9 [facility] [id number] [place] [address] 76546- 5771 Jun, Screening breast examination Z12.39 and Allergic rhinitis, unspecified allergic rhinitis trigger, unspecified rhinitis seasonality J30.9 [facility] [id number] [place] [address] 09825- 8755 Jun, Pain in unspecified shoulder M25.519 [facility] [address] 15303- 9021 May, [facility] [address] 21486- 6004 May, Pain in unspecified shoulder M25.519 [facility] [address] 06053- 0031 05 May, 2016 Thoracogenic scoliosis of thoracolumbar region M41.35 ; Low back pain M54.5 ; Other chronic pain G89.29 and Uncontrolled type 2 diabetes mellitus without complication, without long-term current use of insulin E11.65 [facility] [id number] [place] [address] 43021- 4239 Apr, [facility] [id number] [place] [address] 85810- 5478 Apr, [facility] [address] [place] [address] 93879- 8451 04 Apr, 2016 History of type 2 diabetes mellitus Z86.39 and Encounter for immunization Z23 [facility] [id number] [place] [address] 33165- 6596 Mar, [facility] [id number] [place] [address] 00628- 9711 Mar, [facility] [id number] [place] [address] 01060- 0409 Feb, [facility] [id number] [place] [address] 68773- 1969 Jan, [facility] [address] [facility] [id number] [address]- 4562 Jan, [facility] [id number] [address]- 3782 Dec, [facility] [id number] [address] -8025 Dec, Sore throat J02.9 and Allergic rhinitis, unspecified allergic rhinitis type J30.9 [facility] [address] [facility] [id number] [address]- 2429 Dec, Diabetes type 2, controlled E11.9 [facility] [address] [facility] [id number] [address]- 9688 Nov, [facility] [address] [address]- 7883 Nov, [facility] [address] [address]- 6644 October, [facility] [address] [address]- 6805 October, [facility] [id number] [address]- 4982 Sep, [facility] [id number] [address]- 7078 Aug, [facility] [id number] [address]- 5056 Aug, Diabetes type 2, controlled E11.9 ; UTI (urinary tract infection) N39.0 and Bacterial infection A49.9 [facility] [id number] [address]- 6533 Jul, [facility] [id number] [address]- 6667 Jul, [facility] [id number] [place] [address] 61753- 6588 Jul, Pharyngitis J02.9 and Seborrheic keratoses L82.1 [facility] [id number] [place] [address] 93306- 7450 Jun, [facility] [id number] [place] [address] 05285- 9567 May, [facility] [address] 17816- 5134 May, Skin tags, multiple acquired L91.8 ; Seborrheic keratoses L82.1 and Diabetes type 2, controlled E11.9 [facility] [address] 80783- 9226 May, Well woman exam Z01.419 ; Papanicolaou [...] Other fatigue R53.83 and Other hemorrhoids K64.8 [facility] [id number] [place] [address] 28730- 3329 15 May, 2015 [facility] [id number] [place] [address] 78145- 8682 May, [facility] [id number] [place] [address] 33494- 4207 Apr, Seborrheic keratosis L82.1 and Diabetes type 2, controlled E11.9 [facility] [id number] [place] [address] 48819- 1102 Apr, Seborrheic keratosis L82.1 and Diabetes type 2, controlled E11.9 [facility] [id number] [place] [address] 72438- 9168 Mar, [facility] [address] 89967- 9414 Mar, [facility] [address] 91297- 0349 Mar, Nevoid hyperpigmentation L81.9 ; Encounter for immunization Z23 ; Skin tags, multiple acquired L91.8 and Seborrheic keratoses L82.1 [facility] [address] 71090- 7802 Feb, [facility] [address] 67577- 6900 Feb, [facility] [address] 01058- 6149 Feb, [facility] [address] 22972- 9801 Feb, Diabetes 250.00 ; Tinea corporis 110.5 and Shoulder pain, left 719.41 [facility] [address] 56616- 7243 Jan, [facility] [id number] [place] [address] 38728- 5955 Dec, [facility] [id number] [place] [address] 85653- 8939 Dec, [facility] [address] 49347- 2046 Dec, Seborrheic keratoses 702.19 ; Diabetes 250.00 and Hypoglycemia 251.2 [facility] [address] 36998- 2845 Nov, [facility] [address] 82232- 8656 Nov, Abnormal mammogram 793.80 [facility] [address] [place] [address]- 3287 October, Diabetes 250.00 and Colon polyp 211.3 [facility] [address] [id number] [place] [address]- 7723 Sep, [facility] [address] [id number] [place] [address]- 0813 Sep, [facility] [address] [id number] [place] [address], [place] [address]- 1242 Sep, [facility] [address] [id number] [place] [address]- 7198 Aug, [facility] [address] [id number] [place] [address], [place] [address]- 5352 Aug, [facility] [address] [place] [address]- 0773 Jul, [facility] [address] [place] [address]- 1760 Jul, [facility] [id number] [place] [address]- 1001 Jun, [facility] [address] [address]- 3944 Jun, [facility] [address] [address]- 8591 Jun, [facility] [id number] [address]- 2607 Jun, [facility] [id number] [address]- 6962 Jun, [facility] [address] [address]- 5446 Jun, [facility] [address] [facility] [id number] [place] [address]- 0917 May, [facility] [address] [address]- 7864 May, [facility] [place] [facility] [address] [id number] [place] [address]- 3396 Apr, [facility] [place] [facility] [address] [id number] [place] [address]- 6022 Apr, [facility] [place] [facility] [address] [id number] [place] [address]- 4576 Apr, [facility] [place] [facility] [address] [id number] [place] [address]- 2391 Apr, [facility] [place] [facility] [address] [id number] [place] [address]- 7894 Apr, [facility] [place] [facility] [address] [id number] [place] [address]- 9359 Apr, [facility] [place] [facility] [address] [id number] [place] [address]- 3439 Apr, [facility] [place] [facility] [address] [id number] [address]- 6500 Apr, [facility] [place] [facility] [address] [id number] [address]- 2869 Apr, [facility] [place] [facility] [address] [id number] [address]- 8169 Apr, [facility] [place] [facility] [address] [id number] [address]- 0395 Mar, [facility] [place] [facility] [address] [id number] [address]- 7145 Mar, [facility] [place] [facility] [address] [id number] [address]- 1170 Mar, [facility] [place] [facility] [address] [id number] [address]- 7689 Mar, [facility] [place] [facility] [address] [id number] [address]- 3814 Mar, [facility] [place] [facility] [address] [id number] [place] [address]- 2794 Mar, [facility] [place] [facility] [address] [id number] [place] [address]- 9069 Mar, [facility] [place] [facility] [address] [id number] [place] [address]- 8240 Mar, [facility] [place] [facility] [address] [id number] [place] [address]- 0605 Feb, [facility] [place] [facility] [address] [id number] [place] [address]- 8634 Feb, [facility] [place] [facility] [address] [id number] [place] [address]- 1167 Feb, [facility] [place] [facility] [address] [id number] [place] [address]- 7089 Feb, [facility] [place] [facility] [address] [id number] [place] [address]- 5399 Jan, [facility] [place] [facility] [address] [id number] [place] [address]- 4098 Jan, [facility] [place] [facility] [address] [id number] [place] [address]- 1501 Dec, [facility] [place] [facility] [address] [id number] [place] [address]- 5519 Dec, [facility] [place] [facility] [address] [id number] [place] [address]- 1345 Nov, [facility] [place] [facility] [address] [id number] [place] [address]- 2974 Nov, [facility] [place] [facility] [address] [id number] [place] [address]- 6788 Nov, [facility] [place] [facility] [address] [id number] [place] [address]- 7422 Nov, [facility] [place] [facility] [address] [id number] [place] [address]- 5229 October, [facility] [address] [id number] [place] [address]- 3810 October, [facility] [place] [facility] [address] [id number] [place] [address]- 7199 October, [facility] [place] [facility] [address] [id number] [place] [address]- 6750 October, [facility] [place] [facility] [address] [id number] [place] [address]- 9508 October, [facility] [place] [facility] [address] [id number] [place] [address]- 4261 October, [facility] [place] [facility] [address] [id number] [place] [address]- 6002 October, [facility] [place] [facility] [address] [id number] [place] [address] October, [facility] [place] [facility] [address] [id number] [place] [address] Aug, [facility] [place] [facility] [address] [id number] [place] [address] Aug, [facility] [place] [facility] [address] [id number] [place] [address] Jul, [facility] [place] [facility] [address] [id number] [place] [address] Jul, [facility] [place] [facility] [address] [id number] [place] [address] Jul, [facility] [place] [facility] [address] [id number] [place] [address] Jul, [facility] [place] [facility] [address] [id number] [place] [address] Jul, [facility] [place] [facility] [address] [id number] [place] [address] Jun, [facility] [place] [facility] [address] [id number] [place] [address] Jun, [facility] [address] [id number] [place] [address] May, [facility] [place] [facility] [address] [id number] [place] [address] May, [facility] [place] [facility] [address] [id number] [place] [address] Apr, [facility] [place] [facility] [address] [id number] [place] [address] Apr, [facility] [place] [facility] [address] [id number] [place] [address] Mar, [facility] [place] [facility] [address] [id number] [place] [address] Mar, [facility] [place] [facility] [address] [id number] [place] [address] Mar, [facility] [place] [facility] [address] [id number] [place] [address] Feb, [facility] [place] [facility] [address] [id number] [place] [address] Feb, [facility] [place] [facility] [address] [facility] [id number] [place] [address] 17 Feb, 2013 [facility] [place] [facility] [address] [id number] [place] [address] Feb, [facility] [place] [facility] [address] [id number] [place] [address] Feb, [facility] [place] [facility] [address] [id number] [place] [address] Jan, [facility] [place] [facility] [address] [id number] [place] [address] Dec, [facility] [place] [facility] [address] [id number] [place] [address] Nov, [facility] [place] [facility] [address] [id number] [place] [address] October, [facility] [address] [id number] [place] [address] Sep, [facility] [place] [facility] [address] [id number] [place] [address] Aug, [facility] [address] [id number] [place] [address] Aug, [facility] [address] [id number] [place] [address] 18 Aug, 2012 [facility] [address] [id number] [place] [address] May, [facility] [address] [id number] [place] [address] 12 May, 2012 [facility] [address] [id number] [place] [address] 12 May, 2012 [facility] [address] [id number] [place] [address] May, [facility] [address] [id number] [place] [address] May, [facility] [address] [id number] [place] [address] 16 Apr, 2012 [facility] [place] [facility] [address] [id number] [place] [address] 16 Apr, 2012 [facility] [place] [facility] [address] [id number] [place] [address] 14 Apr, 2012 [facility] [place] [facility] [address] [id number] [place] [address] 14 Apr, 2012 [facility] [place] [facility] [address] [id number] [place] [address] 07 Apr, 2012 [facility] [place] [facility] [address] [id number] [place] [address] Apr, [facility] [place] [facility] [address] [id number] [place] [address] Apr, [facility] [place] [facility] [address] [id number] [place] [address] Apr, [facility] [place] [facility] [address] [id number] [place] [address] Mar, [facility] [place] [facility] [address] [id number] [place] [address] Mar, [facility] [place] [facility] [address] [id number] [place] [address] Mar, [facility] [place] [facility] [address] [id number] [place] [address] Mar, [facility] [place] [facility] [address] [id number] [place] [address] Mar, [facility] [place] [facility] [address] [id number] [place] [address] Mar, [facility] [place] [facility] [address] [id number] [place] [address] Mar, [facility] [place] [facility] [address] [id number] [place] [address] Feb, [facility] [place] [facility] [address] [id number] [place] [address] 24 Feb, 2012 [facility] [place] [facility] [address] [id number] [place] [address] 20 Feb, 2012 [facility] [place] [facility] [address] [id number] [place] [address] Feb, [facility] [place] [facility] [address] [id number] [place] [address] Jan, [facility] [place] [facility] [address] [id number] [place] [address] Jan, [facility] [place] [facility] [address] [id number] [place] [address] 17 Jan, 2012 [facility] [place] [facility] [address] [id number] [place] [address] 15 Jan, 2012 [facility] [place] [facility] [address] [id number] [place] [address] Jan, [facility] [address] [id number] [place] [address] Jan, [facility] [place] [facility] [address] [id number] [place] [address] Dec, [facility] [place] [facility] [address] [id number] [place] [address] Dec, [facility] [place] [facility] [address] [id number] [place] [address] Dec, [facility] [place] [facility] [address] [id number] [place] [address] Dec, [facility] [address] [id number] [place] [address] Dec, [facility] [place] [facility] [address] [id number] [place] [address] Dec, [facility] [address] [id number] [place] [address]67 Dec, [facility] [place] [facility] [address] [id number] [place] [address] 47[address] Dec, [facility] [place] [facility] [address] [id number] [place] [address] Nov, [facility] [place] [facility] [address] [id number] [place] [address] 97[address] Nov, [facility] [place] [facility] [address] [id number] [place] [address] Nov, [facility] [place] [facility] [address] [id number] [place] [address] Nov, [facility] [address] [id number] [place] [address] 284[address] October, [facility] [place] [facility] [address] [id number] [place] [address] October, [facility] [place] [facility] [address] [id number] [place] [address] 8688 Sep, [facility] [place] [facility] [address] [id number] [place] [address]132 Sep, [facility] [place] [facility] [address] [id number] [place] [address] 9480 Aug, [facility] [place] [facility] [address] [id number] [place] [address] 16 Aug, 2011 [facility] [place] [facility] [address] [id number] [place] [address]24 Aug, [facility] [place] [facility] [address] [id number] [place] [address] 1380 Aug, [facility] [place] [facility] [address] [id number] [place] [address] Aug, [facility] [place] [facility] [address] [id number] [place] [address] 9436 Jul, [facility] [place] [facility] [address] [id number] [place] [address] Jul, [facility] [place] [facility] [address] [id number] [place] [address] Jul, [facility] [place] [facility] [address] [id number] [place] [address] 28[address] Jul, [facility] [place] [facility] [address] [id number] [place] [address] 7866 Jun, [facility] [place] [facility] [address] [id number] [place] [address] 17[address] Jun, [facility] [place] [facility] [address] [id number] [place] [address]- [address] 05 Jun, 2011 [facility] [address] [id number] [place] [address]- 8629 Jun, [facility] [place] [facility] [address] [id number] [place] [address] 3368 Jun, [facility] [address] [id number] [place] [address]441 May, [facility] [place] [facility] [address] [id number] [place] [address] 4336 May, [facility] [address] [id number] [place] [address]- 1469 May, [facility] [place] [facility] [address] [id number] [place] [address] 9619 May, [facility] [address] [id number] [place] [address]- [address]188 May, [facility] [place] [facility] [address] [id number] [place] [address] 1635 May, [facility] [place] [facility] [address] [id number] [place] [address] Apr, [facility] [address] [facility] [id number] [place] [address] 134[address] Apr, [facility] [place] [facility] [address] [id number] [place] [address] 9656 Mar, [facility] [place] [facility] [address] [id number] [place] [address] 8638 Mar, [facility] [place] [facility] [address] [id number] [place] [address] 3881 October, [facility] [place] [facility] [address] [id number] [place] [address] 9136 May, [facility] [place] [facility] [address] [id number] [address] Apr, [facility] [address] [id number] [address] Jul, [facility] [address] [id number] [address] May, [facility] [address] [id number] [address] May, [facility] [id number] [address] May, [facility] [address] [id number] [address] Apr, [facility] [id number] [address] Apr, [facility] [id number] [address] Mar, [facility] [id number] [address] Jan, [facility] [address] [id number] [address]99 Nov, IMMUNIZATIONS No Known Immunizations SOCIAL HISTORY Never Assessed REASON FOR VISIT Controlled Med Refill PLAN OF CARE VITAL SIGNS MEDICATIONS Medication Instructions Dosage Frequency Start Date End Date Duration Status [place] 7.5-325 MG Orally 3 times a day 1 tablet as needed 8h Jun, 28 days Active RESULTS No Results [...]
--- OUTSIDE RECORDS SUMMARY | 2018-02-19 21:59 | XMS REPORT | Continuity of Care Document ---
Author Author [facility] Address Unknown Phone Unavailable Allergies Active Description [...] tablet Drug Allergy 09/12/2012 Yes amoxicillin trihydrate [id number] Drug Allergy Unknown N/A 11/08/2012 Yes brompheniramine maleate [id number] Drug Allergy Unknown N/A 11/08/2012 Yes buspirone HCl [id number] Drug Allergy Unknown N/A 11/08/2012 Yes celecoxib [id number] Drug Allergy Unknown N/A 11/08/2012 Yes hydrochlorothiazide [id number] Drug Allergy Unknown N/A 11/08/2012 Yes niacin [id number] Drug Allergy Unknown N/A 11/08/2012 Yes Phenylpropanolamine HCl [id number] Drug Allergy Unknown N/A 11/08/2012 Yes potassium clavulanate [id number] Drug Allergy Unknown N/A 11/08/2012 Yes spironolactone [id number] Drug Allergy Unknown N/A 11/08/2012 Yes meloxicam [id number] Drug Allergy Unknown N/A 05/12/2014 Yes MIXLACAM MIXLACAM Unknown N/A 05/12/2014 Yes simvastatin [id number] Drug Allergy Unknown N/A 05/12/2014 Yes Choline Fenofibrate [id number] Drug Allergy Unknown N/A 11/06/2017 Medications There is no data. Problems Date Dx Coded Attending Type Code Diagnosis Diagnosed By 01/11/2008 BOOGIE ARAUJO APRN 780.79 lethargy 01/11/2008 780.79 lethargy 01/11/2008 780.79 Lethargy 01/11/2008 780.79 Lethargy 01/11/2008 780.79 Lethargy 01/11/2008 780.79 Lethargy 01/11/2008 [facility], KENN Margarita 780.79 Lethargy 01/11/2008 BOOGIE ARAUJO [...] APRN 780.79 Lethargy 01/11/2008 BOOGIE ARAUJO APRN T 780.79 Lethargy 01/11/2008 TAYLOR KUHN APRN 780.79 Lethargy 01/11/2008 TAYLOR KUHN APRN 780.79 Lethargy 01/11/2008 TAYLOR KUHN APRN 780.79 Lethargy 01/11/2008 BOOGIE ARAUJO APRN 780.79 Lethargy 01/11/2008 BOOGIE ARAUJO APRN 780.79 Lethargy 01/11/2008 BOOGIE ARAUJO APRN 780.79 Lethargy 01/11/2008 [facility], [place] R 780.79 lethargy 01/23/2008 BOOGIE [...] MULTI-VESSEL 01/23/2008 719.46 Patellofemoral Syndrome Right 01/23/2008 [facility], KENN R 250.02 Diabetes Mellitus Poorly Controlled 01/23/2008 [facility], KENN R 414.01 CORONARY ARTERY STENOSIS MULTI-VESSEL 01/23/2008 [facility], KENN R 719.46 Patellofemoral Syndrome Right 01/23/2008 [...] 250.02 Diabetes Mellitus Poorly Controlled 01/23/2008 BOOGIE ARAUOJ APRN 414.01 CORONARY ARTERY STENOSIS MULTI-VESSEL 01/23/2008 [...] APRN 719.46 Patellofemoral Syndrome Right 01/23/2008 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, TAYLOR A 250.02 Diabetes Mellitus Poorly Controlled 01/23/2008 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, TAYLOR A 414.01 CORONARY ARTERY STENOSIS MULTI-VESSEL 01/23/2008 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, TAYLOR A 719.46 Patellofemoral Syndrome Right 01/23/2008 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, TAYLOR A 250.02 Diabetes Mellitus Poorly Controlled 01/23/2008 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, TAYLOR A 414.01 CORONARY ARTERY STENOSIS MULTI-VESSEL 01/23/2008 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, TAYLOR A 719.46 Patellofemoral Syndrome Right 01/23/2008 [...] ARAUJO APRN 719.46 Patellofemoral Syndrome Right [facility]23[facility] 250.02 Diabetes Mellitus Poorly Controlled [facility] 414.01 CORONARY ARTERY STENOSIS MULTI-VESSEL 01/23/2008 [facility], KENN R 719.46 PATELLOFEMORAL SYNDROME RIGHT 02/02/2008 BOOGIE ARAUJO APRN 465.9 ECHO VIRUS UPPER RESPIRATORY 02/02/2008 465.9 ECHO VIRUS UPPER RESPIRATORY 02/02/2008 465.9 Echo Virus Upper Respiratory 02/02/2008 465.9 Echo Virus Upper Respiratory 02/02/2008 465.9 Echo Virus Upper Respiratory 02/02/2008 465.9 Echo Virus Upper Respiratory 02/02/2008 [facility], KENN R 465.9 Echo Virus Upper Respiratory 02/02/2008 GAYLE REIDN, BOOGIE T 465.9 Echo Virus Upper Respiratory 02/02/2008 DARRIUS HI DO 465.9 Echo Virus Upper Respiratory 02/02/2008 [facility] [employer], BOOGIE T 465.9 Echo Virus Upper Respiratory 02/02/2008 LAURA HINKLE MD 465.9 Echo Virus Upper Respiratory 02/02/2008 LAURA HINKLE MD 465.9 Echo Virus Upper Respiratory 02/02/2008 [facility] [employer], BOOGIE T 465.9 Echo Virus Upper Respiratory 02/02/2008 GAYLE REIDN, BOOGIE T 465.9 Echo Virus Upper Respiratory 02/02/2008 GAYLE REIDN, BOOGIE T 465.9 Echo Virus Upper Respiratory 02/02/2008 G[facility] ELECTRON[employer] SPECIALIST, BOOGIE T 465.9 Echo Virus Upper Respiratory 02/02/2008 LAURA HINKLE MD 465.9 Echo Virus Upper Respiratory 02/02/2008 GAYLE REIDN, BOOGIE T 465.9 Echo Virus Upper Respiratory 02/02/2008 G[facility] ELECTRON[employer] SPECIALIST, BOOGIE T 465.9 Echo Virus Upper Respiratory 02/02/2008 GAYLE ELECTRONIC SPECIALIST, BOOGIE T 465.9 Echo Virus Upper Respiratory 02/02/2008 G[facility]LE ELECTRONIC SPECIALIST, BOOGIE T 465.9 Echo Virus Upper Respiratory 02/02/2008 GAYLE ELECTRONIC SPECIALIST, BOOGIE T 465.9 Echo Virus Upper Respiratory 02/02/2008 GAYLE ELECTRONIC SPECIALIST, BOOGIE T 465.9 Echo Virus Upper Respiratory 02/02/2008 GAYLE REIDN, BOOGIE T 465.9 Echo Virus Upper Respiratory 02/02/2008 GAYLE REIDN, BOOGIE T 465.9 Echo Virus Upper Respiratory 02/02/2008 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, TAYLOR A 465.9 Echo Virus Upper Respiratory 02/02/2008 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, TAYLOR A 465.9 Echo Virus Upper Respiratory 02/02/2008 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, TAYLOR A 465.9 Echo Virus Upper Respiratory 02/02/2008 GAYLE REIDN, BOOGIE T 465.9 Echo Virus Upper Respiratory 02/02/2008 GAYLE REIDN, BOOGIE T 465.9 Echo Virus Upper Respiratory 02/02/2008 GAYLE REIDN, BOOGIE T 465.9 Echo Virus Upper Respiratory 02/02/2008 [facility], KENN R 465.9 ECHO VIRUS UPPER RESPIRATORY [...] UNSPECIFIED 02/09/2008 401.1 ESSENTIAL HYPERTENSION BENIGN 02/09/2008 [facility], KENN R 272.1 HYPERTRIGLYCERIDEMIA 02/09/2008 [facility], KENN R 272.4 HYPERLIPIDEMIA UNSPECIFIED 02/09/2008 [facility] 401.1 ESSENTIAL HYPERTENSION BENIGN [...] MD 401.1 ESSENTIAL HYPERTENSION BENIGN 02/09/2008 [facility], BOOGIE T 272.1 HYPERTRIGLYCERIDEMIA 02/09/2008 GAYLE ELECTRONIC SPECIALISTBOOGIE T 272.4 HYPERLIPIDEMIA UNSPECIFIED 02/09/2008 GAYLE ELECTRONIC SPECIALIST, BOOGIE T 401.1 ESSENTIAL HYPERTENSION BENIGN 02/09/2008 GAY[facility] ELECTRONIC SPECIALIST, BOOGIE T 272.1 HYPERTRIGLYCERIDEMIA 02/09/2008 G[facility] ELECTRONIC SPECIALIST, BOOGIE T 272.4 HYPERLIPIDEMIA UNSPECIFIED 02/09/2008 GAYLE ELECTRONIC SPECIALIST BOOGIE T 401.1 ESSENTIAL HYPERTENSION BENIGN 02/09/2008 GAYLE REIDN BOOGIE T 272.1 HYPERTRIGLYCERIDEMIA 02/09/2008 G[facility] ELECTRONIC SPECIALIST, BOOGIE T 272.4 HYPERLIPIDEMIA UNSPECIFIED 02/09/2008 G[facility] ELECTRONIC SPECIALIST, BOOGIE T 401.1 ESSENTIAL HYPERTENSION BENIGN 02/09/2008 BOOGIE ARAUJO APRN T 272.1 HYPERTRIGLYCERIDEMIA 02/09/2008 BOOGIE ARAUJO APRN T 272.4 HYPERLIPIDEMIA UNSPECIFIED 02/09/2008 BOOGIE ARAUJO APRN T 401.1 ESSENTIAL HYPERTENSION BENIGN 02/09/2008 LAURA HINKLE MD 272.1 HYPERTRIGLYCERIDEMIA 02/09/2008 LAURA HINKLE MD 272.4 HYPERLIPIDEMIA UNSPECIFIED 02/09/2008 LAURA IHNKLE MD 401.1 ESSENTIAL HYPERTENSION BENIGN 02/09/2008 GAYLE [...] BOOGIE T 272.4 HYPERLIPIDEMIA UNSPECIFIED 02/09/2008 G[facility] ELECTRONIC SPECIALIST BOOGIE T 401.1 ESSENTIAL HYPERTENSION BENIGN 02/09/2008 BOOGIE ARAUJO APRN T 272.1 HYPERTRIGLYCERIDEMIA 02/09/2008 BOOGIE ARAUJO APRN T 272.4 HYPERLIPIDEMIA UNSPECIFIED 02/09/2008 GAYLE DANIEL BOOGIE T 401.1 ESSENTIAL HYPERTENSION BENIGN 02/09/2008 GAYLE DANIEL BOOGIE T 272.1 HYPERTRIGLYCERIDEMIA 02/09/2008 BOOGIE ARAUJO APRN T 272.4 HYPERLIPIDEMIA UNSPECIFIED 02/09/2008 G[facility] ELECTRON[employer] SPECIALIST, BOOGIE T 401.1 ESSENTIAL HYPERTENSION BENIGN 02/09/2008 GAYLE ELECTRONIC SPECIALIST, BOOGIE T 272.1 HYPERTRIGLYCERIDEMIA 02/09/2008 GAYLE ELECTRONIC SPECIALIST, BOOGIE T 272.4 HYPERLIPIDEMIA UNSPECIFIED 02/09/2008 GAYLE ELECTRONIC SPECIALIST, BOOGIE T 401.1 ESSENTIAL HYPERTENSION BENIGN 02/09/2008 G[facility]LE ELECTRONIC SPECIALIST, BOOGIE T 272.1 HYPERTRIGLYCERIDEMIA 02/09/2008 GAYLE ELECTRONIC SPECIALIST, BOOGIE T 272.4 HYPERLIPIDEMIA UNSPECIFIED 02/09/2008 GAYLE ELECTRONIC SPECIALIST, BOOGIE T 401.1 ESSENTIAL HYPERTENSION BENIGN 02/09/2008 GAYLE REIDN, BOOGIE T 272.1 HYPERTRIGLYCERIDEMIA 02/09/2008 G[facility]LE ELECTRONIC SPECIALIST, BOOGIE T 272.4 HYPERLIPIDEMIA UNSPECIFIED 02/09/2008 GAYLE ELECTRONIC SPECIALIST, BOOGIE T 401.1 ESSENTIAL HYPERTENSION BENIGN 02/09/2008 BAMKIN REIDN, TAYLOR A 272.1 HYPERTRIGLYCERIDEMIA 02/09/2008 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, TAYLOR A 272.4 HYPERLIPIDEMIA UNSPECIFIED 02/09/2008 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, TAYLOR A 401.1 ESSENTIAL HYPERTENSION BENIGN 02/09/2008 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, TAYLOR A 272.1 HYPERTRIGLYCERIDEMIA 02/09/2008 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, TAYLOR A 272.4 HYPERLIPIDEMIA UNSPECIFIED 02/09/2008 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, TAYLOR A 401.1 ESSENTIAL HYPERTENSION BENIGN 02/09/2008 BAMKIN REIDN, TAYLOR A 272.1 HYPERTRIGLYCERIDEMIA 02/09/2008 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, TAYLOR A 272.4 HYPERLIPIDEMIA UNSPECIFIED 02/09/2008 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, TAYLOR A 401.1 ESSENTIAL HYPERTENSION BENIGN 02/09/2008 BOOGIE ARAUJO APRN T 272.1 HYPERTRIGLYCERIDEMIA 02/09/2008 BOOGIE ARAUJO APRN T 272.4 HYPERLIPIDEMIA UNSPECIFIED 02/09/2008 GAYLE REIDN BOOGIE T 401.1 ESSENTIAL HYPERTENSION BENIGN 02/09/2008 GAYLE REIDN BOOGIE T 272.1 HYPERTRIGLYCERIDEMIA 02/09/2008 G[facility] ELECTRONIC SPECIALIST BOOGIE T 272.4 HYPERLIPIDEMIA UNSPECIFIED 02/09/2008 GAYLE REIDNBOOGIE T 401.1 ESSENTIAL HYPERTENSION BENIGN 02/09/2008 G[facility] ELECTRONIC SPECIALIST BOOGIE T 272.1 HYPERTRIGLYCERIDEMIA 02/09/2008 BOOGIE ARAUJO APRN T 272.4 HYPERLIPIDEMIA UNSPECIFIED 02/09/2008 BOOGIE ARAUJO APRN T 401.1 ESSENTIAL HYPERTENSION BENIGN 02/09/2008 [facility], [facility]ENN R 272.1 HYPERTRIGLYCERIDEMIA 02/09/2008 [facility], [place]ENN R 272.4 HYPERLIPIDEMIA UNSPECIFIED 02/09/2008 [facility], KENN R 401.1 ESSENTIAL HYPERTENSION BENIGN 03/25/2008 BOOGIE ARAUJO APRN 724.3 Sciatica 03/25/2008 724.3 Sciatica 03/25/2008 724.3 Sciatica 03/25/2008 724.3 Sciatica 03/25/2008 724.3 Sciatica 03/25/2008 724.3 Sciatica 03/25/2008 [facility], [place] R 724.3 Sciatica 03/25/2008 BOOGIE ARAUJO [...] 03/25/2008 BOOGIE ARAUJO APRN 724.3 Sciatica 03/25/2008 [facility], [place]ENN R 724.3 Sciatica 05/22/2008 BOOGIE ARAUJO APRN V72.31 Routine Gynecological Examination 05/22/2008 V72.31 Routine Gynecological Examination 05/22/2008 V72.31 Routine Gynecological Examination 05/22/2008 V72.31 Routine Gynecological Examination 05/22/2008 V72.31 Routine Gynecological Examination 05/22/2008 V72.31 Routine Gynecological Examination 05/22/2008 [facility], [place]ENN R V72.31 Routine Gynecological Examination 05/22/2008 [...] APRN V72.31 Routine Gynecological Examination 05/22/2008 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, TAYLOR A V72.31 Routine Gynecological Examination 05/22/2008 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, TAYLOR A V72.31 Routine Gynecological Examination 05/22/2008 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, TAYLOR A V72.31 Routine Gynecological Examination 05/22/2008 G[facility] E[facility]RON[facility] SPECIALIST, BOOGIE T V72.31 Routine Gynecological Examination 05/22/2008 GAYLE REIDN, BOOGIE T V72.31 Routine Gynecological Examination 05/22/2008 G[facility] ELECTRONIC SPECIALIST, BOOGIE T V72.31 Routine Gynecological Examination 05/22/2008 [facility], [place]ENN R V72.31 Routine Gynecological Examination 07/10/2008 GAYLE REIDN, BOOGIE T 786.2 Cough 07/10/2008 786.2 Cough 07/10/2008 786.2 Cough 07/10/2008 786.2 Cough 07/10/2008 786.2 Cough 07/10/2008 786.2 Cough 07/10/2008 [facility], [place]ENN R 786.2 Cough 07/10/2008 GAYLE REIDN, BOOGIE T 786.2 Cough 07/10/2008 DARRIUS HI DO 786.2 Cough 07/10/2008 GAYLE REIDN, BOOGIE T 786.2 Cough 07/10/2008 LAURA HINKLE MD 786.2 Cough 07/10/2008 LAURA HINKLE MD 786.2 Cough 07/10/2008 GAYLE REIDN, BOOGIE T 786.2 Cough 07/10/2008 GAYLE REIDN, BOOGIE T 786.2 Cough 07/10/2008 GAYLE REIDN, BOOGIE T 786.2 Cough 07/10/2008 G[facility] ELECTRONIC SPECIALIST, BOOGIE T 786.2 Cough 07/10/2008 LAURA IHNKLE MD 786.2 Cough 07/10/2008 [facility] E[employer]RON[employer] SPECIALIST, BOOGIE T 786.2 Cough 07/10/2008 G[facility] ELECTRONIC SPECIALIST, BOOGIE T 786.2 Cough 07/10/2008 G[facility]LE ELECTRONIC SPECIALIST, BOOGIE T 786.2 Cough 07/10/2008 G[facility]LE ELECTRONIC SPECIALIST, BOOGIE T 786.2 Cough 07/10/2008 GAYLE ELECTRONIC SPECIALIST, BOOGIE T 786.2 Cough 07/10/2008 GAYLE REIDN, BOOGIE T 786.2 Cough 07/10/2008 GAYLE REIDN, BOOGIE T 786.2 Cough 07/10/2008 G[facility] ELECTRONIC SPECIALIST, BOOGIE T 786.2 Cough 07/10/2008 BAM REIDN, TAYLOR A 786.2 Cough 07/10/2008 BAM REIDN, TAYLOR A 786.2 Cough 07/10/2008 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, TAYLOR A 786.2 Cough 07/10/2008 [facility] E[employer]RON[employer] SPECIAL[facility], BOOGIE T 786.2 Cough 07/10/2008 G[facility] ELECTRONIC SPECIALIST, BOOGIE T 786.2 Cough 07/10/2008 G[facility]LE ELECTRONIC SPECIALIST, BOOGIE T 786.2 Cough 07/10/2008 [facility], [place] R 786.2 Cough 07/25/2008 GAYLE ELECTRONIC SPECIALIST, BOOGIE T 250.00 DIABETES MELLITUS 07/25/2008 250.00 DIABETES MELLITUS 07/25/2008 250.00 DIABETES MELLITUS 07/25/2008 250.00 DIABETES MELLITUS 07/25/2008 250.00 DIABETES MELLITUS 07/25/2008 250.00 DIABETES MELLITUS 07/25/2008 [facility], [place] R 250.00 DIABETES MELLITUS 07/25/2008 G[facility] E[employer]RON[employer] SPECIALIST, BOOGIE T 250.00 DIABETES MELLITUS 07/25/2008 DARRIUS HI DO 250.00 DIABETES MELLITUS 07/25/2008 G[facility]LE ELECTRONIC SPECIALIST, BOOGIE T 250.00 DIABETES MELLITUS 07/25/2008 LAURA [...] BOOGIE T 250.00 DIABETES MELLITUS 07/25/2008 GAYLE ELECTRONIC SPECIALIST, BOOGIE T 250.00 DIABETES MELLITUS 07/25/2008 GAYLE ELECTRONIC SPECIALIST, BOOGIE T 250.00 DIABETES MELLITUS 07/25/2008 GAYLE REIDN, BOOGIE T 250.00 DIABETES MELLITUS 07/25/2008 GAYLE ELECTRONIC SPECIALIST, BOOGIE T 250.00 DIABETES MELLITUS 07/25/2008 GAYLE ELECTRONIC SPECIALIST, BOOGIE T 250.00 DIABETES MELLITUS 07/25/2008 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, TAYLOR A 250.00 DIABETES MELLITUS 07/25/2008 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, TAYLOR A 250.00 DIABETES MELLITUS 07/25/2008 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, TAYLOR A 250.00 DIABETES MELLITUS 07/25/2008 BOOGIE ARAUJO APRN 250.00 DIABETES MELLITUS 07/25/2008 BOOGIE ARAUJO APRN 250.00 DIABETES MELLITUS 07/25/2008 BOOGIE ARAUJO APRN 250.00 DIABETES MELLITUS 07/25/2008 [facility], [facility] R 250.00 DIABETES MELLITUS 10/26/2008 BOOGIE ARAUJO APRN T 110.5 Dermatophytosis Tinea Corporis 10/26/2008 110.5 Dermatophytosis Tinea Corporis 10/26/2008 110.5 Dermatophytosis Tinea Corporis 10/26/2008 110.5 Dermatophytosis Tinea Corporis 10/26/2008 110.5 Dermatophytosis Tinea Corporis 10/26/2008 110.5 Dermatophytosis Tinea Corporis 10/26/2008 [facility], [place] R 110.5 Dermatophytosis Tinea Corporis 10/26/2008 [...] APRN 110.5 Dermatophytosis Tinea Corporis 10/26/2008 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, TAYLOR A 110.5 Dermatophytosis Tinea Corporis 10/26/2008 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, TAYLOR A 110.5 Dermatophytosis Tinea Corporis 10/26/2008 BAM APRN, TAYLOR A 110.5 Dermatophytosis Tinea Corporis 10/26/2008 BOOGIE ARAUJO APRN 110.5 Dermatophytosis Tinea Corporis 10/26/2008 BOOGIE ARAUJO APRN 110.5 Dermatophytosis Tinea Corporis 10/26/2008 BOOGIE ARAUJO APRN 110.5 Dermatophytosis Tinea Corporis [facility]/26/[facility] 110.5 Dermatophytosis Tinea Corporis 11/28/2008 BOOGIE ARAUJO APRN 381.81 Dysfunction Of Eustachian Tube 11/28/2008 381.81 Dysfunction Of Eustachian Tube 11/28/2008 381.81 Dysfunction Of Eustachian Tube 11/28/2008 381.81 Dysfunction Of Eustachian Tube 11/28/2008 381.81 Dysfunction Of Eustachian Tube 11/28/2008 381.81 Dysfunction Of Eustachian Tube 11/28/2008 [facility] [place] R 381.81 Dysfunction Of Eustachian [...] 381.81 Dysfunction Of Eustachian Tube 11/28/2008 BOOGIE ARAJUO APRN 381.81 Dysfunction Of Eustachian Tube 11/28/2008 [...] 381.81 Dysfunction Of Eustachian Tube 11/28/2008 [facility] Avila 381.81 Dysfunction Of Eustachian Tube 01/25/2009 BOOGIE ARAUJO APRN 681.11 Onychia And Paronychia Of Toe 01/25/2009 681.11 Onychia And Paronychia Of Toe 01/25/2009 681.11 Onychia And Paronychia Of Toe 01/25/2009 681.11 Onychia And Paronychia Of Toe 01/25/2009 681.11 Onychia And Paronychia Of Toe 01/25/2009 681.11 Onychia And Paronychia Of Toe 01/25/2009 [facility] [place] Avila 681.11 Onychia And Paronychia [...] 681.11 Onychia And Paronychia Of Toe 01/25/2009 [facility], [facility] Avila 681.11 Onychia And Paronychia [...] Symptom] 08/06/2009 786.05 Shortness Of Breath 08/06/2009 [facility], [facility] R 780.60 Fever [as Symptom] 08/06/2009 [facility] R 786.05 Shortness Of Breath 08/06/2009 BOOGIE ARAUJO APRN 780.60 Fever [as Symptom] 08/06/2009 BOOGIE ARAUJO APRN 786.05 Shortness Of Breath 08/06/2009 HI DOLAURAA K 780.60 Fever [as Symptom] 08/06/2009 HI DO DARRIUS K 786.05 Shortness Of Breath 08/06/2009 BOOGIE ARAUJO APRN 780.60 Fever [as Symptom] 08/06/2009 [facility]RON[employer] SPECIAL[facility], BOOGIE T 786.05 Shortness Of Breath 08/06/2009 [...] T 786.05 Shortness Of Breath 08/06/2009 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, TAYLOR A 780.60 Fever [as Symptom] 08/06/2009 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, TAYLOR A 786.05 Shortness Of Breath 08/06/2009 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, TAYLOR A 780.60 Fever [as Symptom] 08/06/2009 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, TAYLOR A 786.05 Shortness Of Breath 08/06/2009 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, TAYLOR A 780.60 Fever [as Symptom] 08/06/2009 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, TAYLOR A 786.05 Shortness Of Breath 08/06/2009 GAYLE DANIEL, BOOGIE T 780.60 Fever [as Symptom] 08/06/2009 BOOGIE ARAUJO APRN T 786.05 Shortness Of Breath 08/06/2009 BOOGIE ARAUJO APRN T 780.60 Fever [as Symptom] 08/06/2009 BOOGIE ARAUJO APRN T 786.05 Shortness Of Breath 08/06/2009 GAYLE DANIEL, BOOGIE T 780.60 Fever [as Symptom] 08/06/2009 BOOGIE ARAUJO APRN T 786.05 Shortness Of Breath 08/06/2009 [facility], [facility] R 780.60 Fever [as Symptom] 08/06/2009 [facility], [facility] R 786.05 Shortness Of Breath 08/13/2009 BOOGIE ARAUJO APRN 480.0 Pneumonia Due To Adenovirus 08/13/2009 480.0 Pneumonia Due To Adenovirus 08/13/2009 480.0 Pneumonia Due To Adenovirus 08/13/2009 480.0 Pneumonia Due To Adenovirus 08/13/2009 480.0 Pneumonia Due To Adenovirus 08/13/2009 480.0 Pneumonia Due To Adenovirus 08/13/2009 [facility], [place] R 480.0 Pneumonia Due To Adenovirus 08/13/2009 BOOGIE ARAUJO APRN 480.0 Pneumonia Due To Adenovirus 08/13/2009 DARRIUS HI DO 480.0 Pneumonia Due To Adenovirus 08/13/2009 BOOGIE ARAUJO APRN 480.0 Pneumonia Due To Adenovirus 08/13/2009 LAURA HINKLE MD 480.0 Pneumonia Due To Adenovirus 08/13/2009 LAURA HINKLE MD 480.0 Pneumonia Due To Adenovirus 08/13/2009 G[employer] ELECTRON[employer] SPECIALIST, BOOGIE T 480.0 Pneumonia Due To Adenovirus 08/13/2009 GAYLE ELECTRONIC SPECIALIST, BOOGIE T 480.0 Pneumonia Due To Adenovirus 08/13/2009 GAYLE ELECTRONIC SPECIALIST, BOOGIE T 480.0 Pneumonia Due To Adenovirus 08/13/2009 GAYLE ELECTRONIC SPECIALIST, BOOGIE T 480.0 Pneumonia Due To Adenovirus 08/13/2009 LAURA HINKLE MD 480.0 Pneumonia Due To Adenovirus 08/13/2009 GAYLE ELECTRONIC SPECIALIST, BOOGIE T 480.0 Pneumonia Due To Adenovirus 08/13/2009 GAYLE ELECTRONIC SPECIALIST, BOOGIE T 480.0 Pneumonia Due To Adenovirus 08/13/2009 GAYLE ELECTRONIC SPECIALIST, BOOGIE T 480.0 Pneumonia Due To Adenovirus 08/13/2009 GAYLE ELECTRONIC SPECIALIST, BOOGIE T 480.0 Pneumonia Due To Adenovirus 08/13/2009 GAYLE ELECTRONIC SPECIALIST, BOOGIE T 480.0 Pneumonia Due To Adenovirus 08/13/2009 GAYLE ELECTRONIC SPECIALIST, BOOGIE T 480.0 Pneumonia Due To Adenovirus 08/13/2009 GAYLE ELECTRONIC SPECIALIST, BOOGIE T 480.0 Pneumonia Due To Adenovirus 08/13/2009 GAYLE ELECTRONIC SPECIALIST, BOOGIE T 480.0 Pneumonia Due To Adenovirus 08/13/2009 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, TAYLOR A 480.0 Pneumonia Due To Adenovirus 08/13/2009 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, TAYLOR A 480.0 Pneumonia Due To Adenovirus 08/13/2009 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, TAYLOR A 480.0 Pneumonia Due To Adenovirus 08/13/2009 G[employer]LE ELECTRONIC SPECIALIST, BOOGIE T 480.0 Pneumonia Due To Adenovirus 08/13/2009 GAYLE ELECTRONIC SPECIALIST, BOOGIE T 480.0 Pneumonia Due To Adenovirus 08/13/2009 GAYLE ELECTRONIC SPECIALIST, BOOGIE T 480.0 Pneumonia Due To Adenovirus 08/13/2009 [facility], [facility] R 480.0 Pneumonia Due To Adenovirus 10/17/2009 GAYLE REIDN, BOOGIE T 719.40 Joint Pain, Localized 10/17/2009 GAYLE REIDN, BOOGIE T 787.91 Diarrhea 10/17/2009 719.40 Joint Pain, Localized 10/17/2009 787.91 Diarrhea 10/17/2009 719.40 Joint Pain, Localized 10/17/2009 787.91 Diarrhea 10/17/2009 719.40 Joint Pain, Localized 10/17/2009 787.91 Diarrhea 10/17/2009 719.40 Joint Pain, Localized 10/17/2009 787.91 Diarrhea 10/17/2009 719.40 Joint Pain, Localized 10/17/2009 787.91 Diarrhea 10/17/2009 [facility], KENN R 719.40 Joint Pain, Localized 10/17/2009 [facility], KENN R 787.91 Diarrhea 10/17/2009 BOOGIE ARAUJO [...] ARAUJO APRN T 787.91 Diarrhea 10/17/2009 [facility] [employer], BOOGIE T 719.40 Joint Pain, Localized 10/17/2009 [facility] [employer], BOOGIE T 787.91 Diarrhea 10/17/2009 [facility] [employer], BOOGIE T 719.40 Joint Pain, Localized 10/17/2009 [facility] [employer], BOOGIE T 787.91 Diarrhea 10/17/2009 [facility] [employer], BOOGIE T 719.40 Joint Pain, Localized 10/17/2009 [facility] [employer], BOOGIE T 787.91 Diarrhea 10/17/2009 [facility] [employer], BOOGIE T 719.40 Joint Pain, Localized 10/17/2009 [facility] [employer], BOOGIE T 787.91 Diarrhea 10/17/2009 [facility] [employer], BOOGIE T 719.40 Joint Pain, Localized 10/17/2009 [facility] [employer], BOOGIE T 787.91 Diarrhea 10/17/2009 [facility] [employer], BOOGIE T 719.40 Joint Pain, Localized 10/17/2009 [facility] [employer], BOOGIE T 787.91 Diarrhea 10/17/2009 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, TAYLOR A 719.40 Joint Pain, Localized 10/17/2009 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, TAYLOR A 787.91 Diarrhea 10/17/2009 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, TAYLOR A 719.40 Joint Pain, Localized 10/17/2009 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, TAYLOR A 787.91 Diarrhea 10/17/2009 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, TAYLOR A 719.40 Joint Pain, Localized 10/17/2009 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, TAYLOR A 787.91 Diarrhea 10/17/2009 GAYLE REIDNBOOGIE T 719.40 Joint Pain, Localized 10/17/2009 [facility] [employer], BOOGIE T 787.91 Diarrhea 10/17/2009 [facility] [employer], BOOGIE T 719.40 Joint Pain, Localized 10/17/2009 [facility] [employer], BOOGIE T 787.91 Diarrhea 10/17/2009 GAYLE REIDN, BOOGIE T 719.40 Joint Pain, Localized 10/17/2009 [facility] [employer], BOOGIE T 787.91 Diarrhea 10/17/2009 [facility], KENN R 719.40 Joint Pain, Localized 10/17/2009 [facility], KENN R 787.91 Diarrhea 11/20/2009 BOOGIE ARAUJO APRN T 692.9 Dermatitis Contact Unspecified 11/20/2009 692.9 Dermatitis Contact Unspecified 11/20/2009 692.9 Dermatitis Contact Unspecified 11/20/2009 692.9 Dermatitis Contact Unspecified 11/20/2009 692.9 Dermatitis Contact Unspecified 11/20/2009 692.9 Dermatitis Contact Unspecified 11/20/2009 [facility], KENN Avila 692.9 Dermatitis Contact Unspecified 11/20/2009 [...] ARAUJO APRN 692.9 Dermatitis Contact Unspecified 11/20/2009 [facility], KENN R 692.9 Dermatitis Contact Unspecified 01/15/2010 [...] Stress 01/15/2010 790.29 Other Abnormal Glucose 01/15/2010 [facility], KENN R 296.90 Mood Disorder 01/15/2010 [facility], KENN R 300.00 ANXIETY UNSPEC 01/15/2010 [facility], KENN R 308.3 Other Acute Reactions To Stress 01/15/2010 [facility], KENN R 790.29 Other Abnormal Glucose 01/15/2010 [...] T 790.29 Other Abnormal Glucose 01/15/2010 [employer] [employer], BOOGIE T 296.90 Mood Disorder 01/15/2010 BOOGIE [...] TAYLOR A 296.90 Mood Disorder 01/15/2010 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, TAYLOR A 300.00 ANXIETY UNSPEC 01/15/2010 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, TAYLOR A 308.3 Other Acute Reactions To Stress 01/15/2010 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, TAYLOR A 790.29 Other Abnormal Glucose 01/15/2010 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, TAYLOR A 296.90 Mood Disorder 01/15/2010 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, TAYLOR A 300.00 ANXIETY UNSPEC 01/15/2010 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, TAYLOR A 308.3 Other Acute Reactions To Stress 01/15/2010 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, TAYLOR A 790.29 Other Abnormal Glucose 01/15/2010 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, 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 296.90 Mood Disorder 01/15/2010 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, 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 A 300.00 ANXIETY UNSPEC 01/15/2010 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, 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 A 308.3 Other Acute Reactions To [...] ARAUJO APRN 790.29 Other Abnormal Glucose 01/15/2010 [facility], KENN R 296.90 Mood Disorder 01/15/2010 [facility], KENN R 300.00 ANXIETY UNSPEC 01/15/2010 [facility], KENN R 308.3 Other Acute Reactions To Stress 01/15/2010 [facility], KENN R 790.29 Other Abnormal Glucose 01/23/2010 BOOGIE ARAUJO APRN 462 Pharyngitis Acute 01/23/2010 462 Pharyngitis Acute 01/23/2010 462 Pharyngitis Acute 01/23/2010 462 Pharyngitis Acute 01/23/2010 462 Pharyngitis Acute 01/23/2010 462 Pharyngitis Acute 01/23/2010 [facility], KENN R 462 Pharyngitis Acute 01/23/2010 BOOGIE [...] ARAUJO APRN 462 Pharyngitis Acute 01/23/2010 [facility], BOOGIE T 462 Pharyngitis Acute 01/23/2010 G[facility] ELECTRONIC SPECIALIST, BOOGIE T 462 Pharyngitis Acute 01/23/2010 GAYLE ELECTRONIC SPECIALIST, BOOGIE T 462 Pharyngitis Acute 01/23/2010 [facility] ELECTRONIC SPECIALIST, BOOGIE T 462 Pharyngitis Acute 01/23/2010 G[facility]LE ELECTRONIC SPECIALIST, BOOGIE T 462 Pharyngitis Acute 01/23/2010 GAYLE ELECTRONIC SPECIALIST, BOOGIE T 462 Pharyngitis Acute 01/23/2010 G[facility] ELECTRONIC SPECIALIST, BOOGIE T 462 Pharyngitis Acute 01/23/2010 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, TAYLOR A 462 Pharyngitis Acute 01/23/2010 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, TAYLOR A 462 Pharyngitis Acute 01/23/2010 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, TAYLOR A 462 Pharyngitis Acute 01/23/2010 [facility], BOOGIE T 462 Pharyngitis Acute 01/23/2010 [facility] ELECTRONIC SPECIALIST, BOOGIE T 462 Pharyngitis Acute 01/23/2010 GAYLE ELECTRONIC SPECIALIST, BOOGIE T 462 Pharyngitis Acute 01/23/2010 [facility], KENN R 462 Pharyngitis Acute 02/11/2010 GAYLE REIDN, BOOGIE T 716.90 Arthritis/ Arthropathy, Unspecified 02/11/2010 716.90 Arthritis/ Arthropathy, Unspecified 02/11/2010 716.90 Arthritis/ Arthropathy, Unspecified 02/11/2010 716.90 Arthritis/ Arthropathy, Unspecified 02/11/2010 716.90 Arthritis/ Arthropathy, Unspecified 02/11/2010 716.90 Arthritis/ Arthropathy, Unspecified 02/11/2010 [facility], KENN R 716.90 Arthritis/ Arthropathy, Unspecified 02/11/2010 [facility], BOOGIE T 716.90 Arthritis/ Arthropathy, Unspecified 02/11/2010 DARRIUS HI DO 716.90 Arthritis/ Arthropathy, Unspecified 02/11/2010 GAYLE REIDN, BOOGIE T 716.90 Arthritis/ Arthropathy, Unspecified 02/11/2010 ARIN ORTIZ, LAURA 716.90 Arthritis/ Arthropathy, Unspecified 02/11/2010 ARIN ORTIZ, LAURA 716.90 Arthritis/ Arthropathy, Unspecified 02/11/2010 [facility] SPECIAL[facility], BOOGIE T 716.90 Arthritis/ Arthropathy, Unspecified 02/11/2010 [...] ARAUJO APRN 716.90 Arthritis/ Arthropathy, Unspecified 02/11/2010 [facility], KENN Aivla 716.90 Arthritis/ Arthropathy, Unspecified 03/26/2010 BOOGIE ARAUJO [...] MODERATE 03/26/2010 780.50 Sleep Disturbance, Unspecified 03/26/2010 [facility], KENN R 296.22 MO DEPRESSIVE SINGLE MODERATE 03/26/2010 [facility], KENN R 780.50 Sleep Disturbance, Unspecified 03/26/2010 [...] MD 780.50 Sleep Disturbance, Unspecified 03/26/2010 [facility], BOOGIE T 296.22 MO DEPRESSIVE SINGLE MODERATE 03/26/2010 [facility] ELECTRONIC SPECIALIST, BOOGIE T 780.50 Sleep Disturbance, Unspecified 03/26/2010 G[facility] ELECTRONIC SPECIALIST, BOOGIE T 296.22 MO DEPRESSIVE SINGLE MODERATE 03/26/2010 [facility] ELECTRONIC SPECIALIST, BOOGIE T 780.50 Sleep Disturbance, Unspecified 03/26/2010 GAYLE ELECTRONIC SPECIALIST, BOOGEI T 296.22 MO DEPRESSIVE SINGLE MODERATE 03/26/2010 [facility] ELECTRONIC SPECIALIST, BOOGIE T 780.50 Sleep Disturbance, Unspecified 03/26/2010 G[facility] ELECTRONIC SPECIALIST, BOOGIE T 296.22 MO DEPRESSIVE SINGLE MODERATE 03/26/2010 G[facility] ELECTRONIC SPECIALIST, BOOGIE T 780.50 Sleep Disturbance, Unspecified 03/26/2010 G[facility] ELECTRONIC SPECIALIST, BOOGIE T 296.22 MO DEPRESSIVE SINGLE MODERATE 03/26/2010 [facility] ELECTRONIC SPECIALIST, BOOGIE T 780.50 Sleep Disturbance, Unspecified 03/26/2010 GAYLE ELECTRONIC SPECIALIST, BOOGIE T 296.22 MO DEPRESSIVE SINGLE MODERATE 03/26/2010 [facility] ELECTRONIC SPECIALIST, BOOGIE T 780.50 Sleep Disturbance, Unspecified 03/26/2010 GAYLE ELECTRONIC SPECIALIST, BOOGIE T 296.22 MO DEPRESSIVE SINGLE MODERATE 03/26/2010 [facility] ELECTRONIC SPECIALIST, BOOGIE T 780.50 Sleep Disturbance, Unspecified 03/26/2010 G[facility] ELECTRONIC SPECIALIST, BOOGIE T 296.22 MO DEPRESSIVE SINGLE MODERATE 03/26/2010 [facility] ELECTRON[employer] SPECIALIST, BOOGIE T 780.50 Sleep Disturbance, Unspecified 03/26/2010 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, TAYLOR A 296.22 MO DEPRESSIVE SINGLE MODERATE 03/26/2010 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, TAYLOR A 780.50 Sleep Disturbance, Unspecified 03/26/2010 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, TAYLOR A 296.22 MO DEPRESSIVE SINGLE MODERATE 03/26/2010 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, TAYLOR A 780.50 Sleep Disturbance, Unspecified 03/26/2010 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, TAYLOR A 296.22 MO DEPRESSIVE SINGLE MODERATE 03/26/2010 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, TAYLOR A 780.50 Sleep Disturbance, Unspecified 03/26/2010 [facility] ELECTRONIC SPECIALIST, BOOGIE T 296.22 MO DEPRESSIVE SINGLE MODERATE 03/26/2010 [facility] ELECTRON[facility] SPECIALIST, BOOGIE T 780.50 Sleep Disturbance, Unspecified 03/26/2010 GAYLE REIDN, BOOGIE T 296.22 MO DEPRESSIVE SINGLE MODERATE 03/26/2010 G[facility] ELECTRONIC SPECIALIST, BOOGIE T 780.50 Sleep Disturbance, Unspecified 03/26/2010 BOOGIE ARAUJO APRN T 296.22 MO DEPRESSIVE SINGLE MODERATE 03/26/2010 BOOGIE ARAUJO APRN T 780.50 Sleep Disturbance, Unspecified 03/26/2010 [facility], KENN R 296.22 MO DEPRESSIVE SINGLE MODERATE 03/26/2010 [facility] 780.50 SLEEP DISTURBANCE, UNSPECIFIED 06/01/2010 BOOGIE ARAUJO APRN T 296.32 MO DEPRESSIVE RECURRENT MODERATE 06/01/2010 296.32 MO DEPRESSIVE RECURRENT MODERATE 06/01/2010 296.32 MO DEPRESSIVE RECURRENT MODERATE 06/01/2010 296.32 MO DEPRESSIVE RECURRENT MODERATE 06/01/2010 296.32 MO DEPRESSIVE RECURRENT MODERATE 06/01/2010 296.32 MO DEPRESSIVE RECURRENT MODERATE 06/01/2010 [facility], KENN R 296.32 MO DEPRESSIVE RECURRENT MODERATE [...] 296.32 MO DEPRESSIVE RECURRENT MODERATE 06/01/2010 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, TAYLOR A 296.32 MO DEPRESSIVE RECURRENT MODERATE 06/01/2010 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, TAYLOR A 296.32 MO DEPRESSIVE RECURRENT MODERATE 06/01/2010 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, TAYLOR A 296.32 MO DEPRESSIVE RECURRENT MODERATE 06/01/2010 BOOGIE ARAUJO APRN T 296.32 MO DEPRESSIVE RECURRENT MODERATE 06/01/2010 BOOGIE ARAUJO APRN 296.32 MO DEPRESSIVE RECURRENT MODERATE 06/01/2010 BOOGIE ARAUJO APRN 296.32 MO DEPRESSIVE RECURRENT MODERATE 06/01/2010 [facility], KENN R 296.32 MO DEPRESSIVE RECURRENT MODERATE [...] Dx (3 Yrs And Above, Im) 02/19/2011 [facility], KENN R V04.81 Flu Dx (3 Yrs [...] (3 Yrs And Above, Im) 02/19/2011 [facility], BOOGIE T V04.81 Flu Dx (3 Yrs [...] Dx (3 Yrs And Above, Im) 02/19/2011 [facility], KENN Avila V04.81 Flu Dx (3 Yrs And Above, Im) 02/21/2011 BOOGIE ARAUJO APRN 791.0 PROTEINURIA 02/21/2011 791.0 PROTEINURIA 02/21/2011 791.0 PROTEINURIA 02/21/2011 791.0 PROTEINURIA 02/21/2011 791.0 PROTEINURIA 02/21/2011 791.0 PROTEINURIA 02/21/2011 [facility], KENN R 791.0 PROTEINURIA 02/21/2011 [facility], BOOGIE T 791.0 PROTEINURIA 02/21/2011 DARRIUS HI DO 791.0 PROTEINURIA 02/21/2011 [facility] ELECTRON[facility] SPECIALIST, BOOGIE T 791.0 PROTEINURIA 02/21/2011 LAURA HINKLE MD 791.0 PROTEINURIA 02/21/2011 LAURA HINKLE MD 791.0 PROTEINURIA 02/21/2011 [facility], BOOGIE T 791.0 PROTEINURIA 02/21/2011 [facility] ELECTRONIC SPECIALIST, BOOGIE T 791.0 PROTEINURIA 02/21/2011 [facility] ELECTRONIC SPECIALIST, BOOGIE T 791.0 PROTEINURIA 02/21/2011 G[facility] ELECTRONIC SPECIALIST, BOOGIE T 791.0 PROTEINURIA 02/21/2011 LAURA HINKLE MD 791.0 PROTEINURIA 02/21/2011 [facility] ELECTRONIC SPECIALIST, BOOGIE T 791.0 PROTEINURIA 02/21/2011 G[facility] ELECTRONIC SPECIALIST, BOOGIE T 791.0 PROTEINURIA 02/21/2011 G[facility] ELECTRONIC SPECIALIST, BOOGIE T 791.0 PROTEINURIA 02/21/2011 G[facility]LE ELECTRONIC SPECIALIST, BOOGIE T 791.0 PROTEINURIA 02/21/2011 GAYLE ELECTRONIC SPECIALIST, BOOGIE T 791.0 PROTEINURIA 02/21/2011 GAYLE ELECTRONIC SPECIALIST, BOOGIE T 791.0 PROTEINURIA 02/21/2011 G[facility]LE ELECTRONIC SPECIALIST, BOOGIE T 791.0 PROTEINURIA 02/21/2011 GAYLE ELECTRONIC SPECIALIST, BOOGIE T 791.0 PROTEINURIA 02/21/2011 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, TAYLOR A 791.0 PROTEINURIA 02/21/2011 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, TAYLOR A 791.0 PROTEINURIA 02/21/2011 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, TAYLOR A 791.0 PROTEINURIA 02/21/2011 [facility] E[facility]RON[facility] SPECIALIST, BOOGIE T 791.0 PROTEINURIA 02/21/2011 [facility] ELECTRONIC SPECIALIST, BOOGIE T 791.0 PROTEINURIA 02/21/2011 GAYLE ELECTRONIC SPECIALIST, BOOGIE T 791.0 PROTEINURIA 02/21/2011 [facility], KENN R 791.0 PROTEINURIA 08/25/2011 BOOGIE ARAUJO APRN V68.1 ISSUE OF REPEAT PRESCRIPTIONS 08/25/2011 V68.1 ISSUE OF REPEAT PRESCRIPTIONS 08/25/2011 V68.1 ISSUE OF REPEAT PRESCRIPTIONS 08/25/2011 V68.1 ISSUE OF REPEAT PRESCRIPTIONS 08/25/2011 V68.1 ISSUE OF REPEAT PRESCRIPTIONS 08/25/2011 V68.1 ISSUE OF REPEAT PRESCRIPTIONS 08/25/2011 [facility], KENN R V68.1 ISSUE OF REPEAT PRESCRIPTIONS [...] APRN V68.1 ISSUE OF REPEAT PRESCRIPTIONS 08/25/2011 [facility], KENN R V68.1 ISSUE OF REPEAT PRESCRIPTIONS [...] Dx (3 Yrs And Above, Im) 02/29/2012 [facility], KENN R V04.81 Flu Dx (3 Yrs [...] (3 Yrs And Above, Im) 02/29/2012 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, TAYLOR A V04.81 Flu Dx (3 Yrs And Above, Im) 02/29/2012 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, TAYLOR A V04.81 Flu Dx (3 Yrs And Above, Im) 02/29/2012 BAM APRN, TAYLOR A V04.81 Flu Dx (3 Yrs And Above, Im) 02/29/2012 GAYLE BOOGIE DANIEL T V04.81 Flu Dx (3 Yrs And Above, Im) 02/29/2012 BOOGIE ARAUJO APRN T V04.81 Flu Dx (3 Yrs And Above, Im) 02/29/2012 BOOGIE ARAUJO APRN T V04.81 Flu Dx (3 Yrs And Above, Im) 02/29/2012 [facility], KENN R V04.81 FLU DX (3 YRS AND ABOVE, IM) 03/16/2012 Ot V43.65 KNEE JOINT REPLACEMENT STATUS 03/16/2012 Ot V54.81 AFTERCARE FOLLOWING JOINT REPLACEMENT 03/16/2012 Ot V57.1 PHYSICAL THERAPY NEC 05/31/2012 BOOGIE ARAUJO APRN 729.5 LEG PAIN 05/31/2012 729.5 LEG PAIN 05/31/2012 729.5 LEG PAIN 05/31/2012 729.5 LEG PAIN 05/31/2012 729.5 LEG PAIN 05/31/2012 729.5 LEG PAIN 05/31/2012 [facility], KENN R 729.5 LEG PAIN 05/31/2012 BOOGIE ARAUJO APRN 729.5 LEG PAIN 05/31/2012 DARRIUS HI DO 729.5 LEG PAIN 05/31/2012 BOOGIE ARAUJO APRN 729.5 LEG PAIN 05/31/2012 LAURA HINKLE MD 729.5 LEG PAIN 05/31/2012 LAURA HINKLE MD 729.5 LEG PAIN 05/31/2012 [facility], BOOGIE T 729.5 LEG PAIN 05/31/2012 [facility] ELECTRONIC SPECIALIST, BOOGIE T 729.5 LEG PAIN 05/31/2012 [facility] ELECTRONIC SPECIALIST, BOOGIE T 729.5 LEG PAIN 05/31/2012 [facility] ELECTRONIC SPECIALIST, BOOGIE T 729.5 LEG PAIN 05/31/2012 LAURA HINKLE MD 729.5 LEG PAIN 05/31/2012 [facility] ELECTRON[facility] SPECIALIST, BOOGIE T 729.5 LEG PAIN 05/31/2012 [facility] ELECTRONIC SPECIALIST, BOOGIE T 729.5 LEG PAIN 05/31/2012 G[facility]LE ELECTRONIC SPECIALIST, BOOGIE T 729.5 LEG PAIN 05/31/2012 G[facility] ELECTRONIC SPECIALIST, BOOGIE T 729.5 LEG PAIN 05/31/2012 [facility] ELECTRONIC SPECIALIST, BOOGIE T 729.5 LEG PAIN 05/31/2012 [facility] ELECTRONIC SPECIALIST, BOOGIE T 729.5 LEG PAIN 05/31/2012 [facility] ELECTRONIC SPECIALIST, BOOGIE T 729.5 LEG PAIN 05/31/2012 [facility] ELECTRONIC SPECIALIST, BOOGIE T 729.5 LEG PAIN 05/31/2012 BAM APRN, TAYLOR A 729.5 LEG PAIN 05/31/2012 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, TAYLOR A 729.5 LEG PAIN 05/31/2012 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, TAYLOR A 729.5 LEG PAIN 05/31/2012 [facility]RON[facility] SPECIAL[facility], BOOGIE T 729.5 LEG PAIN 05/31/2012 [facility] ELECTRONIC SPECIALIST, BOOGIE T 729.5 LEG PAIN 05/31/2012 [facility] SPECIAL[facility], BOOGIE T 729.5 LEG PAIN 11/08/2012 LISA PAIGE MD Ot 250.00 DIAB CON WO COMPL, TYPE II OR UNSPEC TY 11/08/2012 LISA PAIGE MD Ot 272.4 HYPERLIPIDEMIA NEC/NOS 11/08/2012 LISA PAIGE MD Ot 278.00 OBESITY, NOS 11/08/2012 LISA PAIGE MD Ot 401.9 HYPERTENSION NOS 11/08/2012 LISA PAIGE MD Ot 414.01 CORONARY ATHEROSCLEROSIS OF [place] CORON 11/08/2012 LISA PAIGE MD Ot 424.0 [...] DARRIUS Gregory 477.9 RHINITIS 03/23/2013 HI DO, DARIRUS K 788.1 DYSURIA 03/23/2013 BOOGIE ARAUJO APRN [...] GAYLE REIDNBOOGIE T 477.9 RHINITIS 03/23/2013 [facility] ELECTRONIC SPECIALIST, BOOGIE T 788.1 DYSURIA 03/23/2013 BOOGIE ARAUJO APRN T 477.9 RHINITIS 03/23/2013 BOOGIE ARAUJO APRN T 788.1 DYSURIA 03/23/2013 BOOGIE ARAUJO APRN 477.9 RHINITIS 03/23/2013 GAYLE REIDNBOOGIE T 788.1 DYSURIA 03/23/2013 GAYLE REIDNBOOGIE T 477.9 RHINITIS 03/23/2013 BOOGIE ARAUJO APRN T 788.1 DYSURIA 03/23/2013 BOOGIE ARAUJO APRN T 477.9 RHINITIS 03/23/2013 BOOGIE ARAUJO APRN T 788.1 DYSURIA 03/23/2013 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, TAYLOR A 477.9 RHINITIS 03/23/2013 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, TAYLOR A 788.1 DYSURIA 03/23/2013 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, TAYLOR A 477.9 RHINITIS 03/23/2013 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, TAYLOR A 788.1 DYSURIA 03/23/2013 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, TAYLOR A 477.9 RHINITIS 03/23/2013 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, TAYLOR A 788.1 DYSURIA 03/23/2013 BOOGIE ARAUJO [...] AND ABSCESS OF UNSPECIFIED SITES 08/01/2013 [facility] ELECTRONIC SPECIALIST, BOOGIE T 682.9 CELLULITIS AND ABSCESS OF [...] BOOGIE ARAUJO APRN T 782.1 RASH 08/08/2013 GALYE REIDNBOOGIE T 782.1 RASH 08/08/2013 GAYLE REIDN, BOOGIE T 782.1 RASH 08/08/2013 GAYLE REIDN, BOOGIE T 782.1 RASH 08/08/2013 BAM APRN, TAYLOR A 782.1 RASH 08/08/2013 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, TAYLOR A 782.1 RASH 08/08/2013 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, TAYLOR A 782.1 RASH 08/08/2013 GAYLE REIDN, BOOGIE T 782.1 RASH 08/08/2013 GAYLE REIDN, BOOGIE T 782.1 RASH 08/08/2013 GAYLE REIDN, BOOGIE T 782.1 RASH 11/09/2013 ARNI ORTIZ, LAURA 719.46 PAIN- KNEE 11/09/2013 BOOGIE [...] SPECIFIED COUNSELING 05/15/2014 TAYLOR KUHN APRN V72.31 TABBER EXAM, ROUTINE 05/15/2014 TALYOR KUHN APRN V76.10 BREAST CANCER SCREENING 05/15/2014 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, TAYLOR A V65.49 OTHER SPECIFIED COUNSELING 05/15/2014 TAYLOR KUHN APRN V72.31 TABBER EXAM, ROUTINE 05/15/2014 TAYLOR KUHN APRN A V76.10 BREAST CANCER SCREENING 05/15/2014 BOOGIE ARAUJO APRN V65.49 OTHER SPECIFIED COUNSELING 05/15/2014 BOOGIE ARAUJO APRN V72.31 TABBER EXAM, ROUTINE 05/15/2014 BOOGIE ARAUJO APRN V76.10 BREAST CANCER SCREENING 05/15/2014 BOOGIE ARAUJO APRN V65.49 OTHER SPECIFIED COUNSELING 05/15/2014 BOOGIE ARAUJO APRN V72.31 TABBER EXAM, ROUTINE 05/15/2014 BOOGIE ARAUJO APRN V76.10 BREAST CANCER SCREENING 05/15/2014 BOOGIE ARAUJO APRN V65.49 OTHER SPECIFIED COUNSELING 05/15/2014 BOOGIE ARAUJO APRN V72.31 TABBER EXAM, ROUTINE 05/15/2014 BOOGIE ARAUJO APRN V76.10 [...] ARAUJO APRN 719.41 PAIN- SHOULDER 10/11/2014 GAYLE ELECTRONIC SPECIALISTBOOGIE V03.82 PPV23 (PNEUMOVAX) DX 12/02/2014 [place]OOK[place] ORTIZ, [...] ORTIZ, BOOGIE Kirby Ot V43.65 06/27/2015 BAMTAYLOR ELECTRONIC SPECIALIST Ot V76.12 06/27/2015 BAMTAYLOR ELECTRONIC SPECIALIST Ot 793.89 06/27/2015 BAMTAYLRO ELECTRONIC SPECIALIST Ot 793.89 06/27/2015 [place]OOK[place] ORTIZ, PAIGE R [...] ANGEL K Ot 786.50 06/30/2015 HELIO WILEY ELECTRONIC SPECIALIST Ot R92.8 07/08/2015 [place] DAVID VERDE Ot D12.3 BENIGN NEOPLASM OF TRANSVERSE COLON 07/08/2015 [place] DAVID VERDE Ot D12.5 BENIGN NEOPLASM OF SIGMOID COLON 07/08/2015 [place] DAVID VERDE Ot D12.8 BENIGN NEOPLASM OF RECTUM 07/08/2015 [place] DAVID VERDE Ot R19.7 DIARRHEA, UNSPECIFIED 07/08/2015 [place] DAVID VERDE Ot Z12.11 ENCOUNTER FOR SCREENING FOR MALIGNANT NE 07/16/2015 HELIO WILEY ELECTRONIC SPECIALIST Ot R92.8 11/19/2015 Ot 250.00 DIAB CON [...] KNEE JOINT REPLACEMENT STATUS 11/19/2015 TAYLOR KUHN ELECTRONIC SPECIALIST Ot V76.12 OTH SCREEN MAMMO-MALIGN NEOPLASM OF ELA 11/19/2015 TAYLOR KUHN ELECTRONIC SPECIALIST Ot 793.89 OTH (ABN) FINDINGS ON RADIOLOGICAL EXAMI 11/19/2015 TAYLOR KUHN ELECTRONIC SPECIALIST Ot 793.89 OTH (ABN) FINDINGS ON RADIOLOGICAL [...] DO Ot I25.10 ATHSCL HEART DISEASE OF [place] CORONARY 11/21/2015 JED SAINZ DO Ot R06.00 DYSPNEA, UNSPECIFIED 11/25/2015 JED SAINZ DO Ot G47.33 OBSTRUCTIVE SLEEP APNEA (ADULT) (PEDIATR 11/25/2015 JED SAINZ DO Ot I10 ESSENTIAL (PRIMARY) HYPERTENSION 12/04/2015 JED SAINZ DO Ot I25.10 ATHSCL HEART DISEASE OF [place] CORONARY 12/04/2015 JED SAINZ DO Ot R06.00 [...] KNEE JOINT REPLACEMENT STATUS 06/07/2016 TAYLOR KUHN ELECTRONIC SPECIALIST Ot V76.12 OTH SCREEN MAMMO-MALIGN NEOPLASM OF ELA 06/07/2016 TAYLOR KUHN ELECTRONIC SPECIALIST Ot 793.89 OTH (ABN) FINDINGS ON RADIOLOGICAL EXAMI 06/07/2016 TAYLOR KUHN ELECTRONIC SPECIALIST Ot 793.89 OTH (ABN) FINDINGS ON RADIOLOGICAL [...] 786.50 CHEST PAIN NOS 06/07/2016 HELIO WILEY ELECTRONIC SPECIALIST Ot R92.8 OTH ABN AND INCONCLUSIVE FINDINGS ON DX 06/07/2016 DAVID SMYTH DO Ot Z01.818 ENCOUNTER FOR OTHER PREPROCEDURAL EXAMIN 06/07/2016 JED SAINZ DO Ot I25.10 ATHSCL HEART DISEASE OF [place] CORONARY 06/07/2016 JED SAINZ DO Ot R06.00 [...] MAMMO-MALIGN NEOPLASM OF ELA 06/23/2016 TAYLOR KUHN ELECTRONIC SPECIALIST Ot 793.89 OTH (ABN) FINDINGS ON RADIOLOGICAL EXAMI 06/23/2016 TAYLOR KUHN ELECTRONIC SPECIALIST Ot 793.89 OTH (ABN) FINDINGS ON RADIOLOGICAL [...] DO Ot I25.10 ATHSCL HEART DISEASE OF [place] CORONARY 06/23/2016 JED SAINZ DO Ot R06.00 [...] OTHER FORMS OF DYSPNEA 07/20/2016 JAYY JIANG ELECTRONIC SPECIALIST Ot J18.9 PNEUMONIA, UNSPECIFIED ORGANISM 07/22/2016 MADL, ANGEL L UNARMED SECURITY OFFICER Ot Z12.31 ENCNTR SCREEN MAMMOGRAM FOR MALIGNANT NE 07/22/2016 JAYY JIANG ELECTRONIC SPECIALIST Ot D12.6 BENIGN NEOPLASM OF COLON, UNSPECIFIED 07/22/2016 JAYY JIANG ELECTRONIC SPECIALIST Ot E66.9 OBESITY, UNSPECIFIED 07/22/2016 JAYY JIANG ELECTRONIC SPECIALIST Ot F41.9 ANXIETY DISORDER, UNSPECIFIED 07/22/2016 JAYY JIANG ELECTRONIC SPECIALIST Ot G47.33 OBSTRUCTIVE SLEEP APNEA (ADULT) (PEDIATR 07/22/2016 JAYY JIANG ELECTRONIC SPECIALIST Ot J30.9 ALLERGIC RHINITIS, UNSPECIFIED 07/22/2016 MADL, ANGEL L UNARMED SECURITY OFFICER Ot Z12.31 ENCNTR SCREEN MAMMOGRAM FOR MALIGNANT NE 07/27/2016 JAYY JIANG ELECTRONIC SPECIALIST Ot D12.6 BENIGN NEOPLASM OF COLON, UNSPECIFIED 07/27/2016 JAYY JIANG ELECTRONIC SPECIALIST Ot E66.9 OBESITY, UNSPECIFIED 07/27/2016 JAYY JIANG ELECTRONIC SPECIALIST Ot F41.9 ANXIETY DISORDER, UNSPECIFIED 07/27/2016 JAYY JIANG ELECTRONIC SPECIALIST Ot G47.33 OBSTRUCTIVE SLEEP APNEA (ADULT) (PEDIATR 07/27/2016 JAYY JIANG ELECTRONIC SPECIALIST Ot J30.9 ALLERGIC RHINITIS, UNSPECIFIED 08/04/2016 MADL, ANGEL L UNARMED SECURITY OFFICER Ot Z12.31 ENCNTR SCREEN MAMMOGRAM FOR MALIGNANT [...] SAUER Ot I25.10 ATHSCL HEART DISEASE OF [place] CORONARY 10/08/2016 JOSE ANGEL SAUER Ot 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 10/08/2016 JOSE ANGEL SAUER Ot R06.02 SHORTNESS OF BREATH 10/22/2016 JOSE ANGEL SAUER Ot I10 ESSENTIAL (PRIMARY) HYPERTENSION 10/22/2016 JOSE ANGEL SAUER Ot I25.10 ATHSCL HEART DISEASE OF [place] CORONARY 10/22/2016 JOSE ANGEL SAUER Ot I65.23 [...] KNEE JOINT REPLACEMENT STATUS 04/18/2017 TAYLOR KUHN ELECTRONIC SPECIALIST Ot V76.12 OTH SCREEN MAMMO-MALIGN NEOPLASM OF ELA 04/18/2017 TAYLOR KUHN ELECTRONIC SPECIALIST Ot 793.89 OTH (ABN) FINDINGS ON RADIOLOGICAL EXAMI 04/18/2017 TAYLOR KUHN ELECTRONIC SPECIALIST Ot 793.89 OTH (ABN) FINDINGS ON RADIOLOGICAL [...] 786.50 CHEST PAIN NOS 04/18/2017 HELIO WILEY ELECTRONIC SPECIALIST Ot R92.8 OTH ABN AND INCONCLUSIVE FINDINGS ON DX 04/18/2017 DAVID SMYTH DO Ot Z01.818 ENCOUNTER FOR OTHER PREPROCEDURAL EXAMIN 04/18/2017 JED SAINZ DO Ot I25.10 ATHSCL HEART DISEASE OF [place] CORONARY 04/18/2017 JED SAINZ DO Ot R06.00 [...] SAUER Ot I25.10 ATHSCL HEART DISEASE OF [place] CORONARY 04/18/2017 JOSE ANGEL SAUER Ot I65.23 [...] KNEE JOINT REPLACEMENT STATUS 07/22/2017 TAYLOR KUHN ELECTRONIC SPECIALIST Ot V76.12 OTH SCREEN MAMMO-MALIGN NEOPLASM OF ELA 07/22/2017 TAYLOR KUHN ELECTRONIC SPECIALIST Ot 793.89 OTH (ABN) FINDINGS ON RADIOLOGICAL EXAMI 07/22/2017 TAYLOR KUHN ELECTRONIC SPECIALIST Ot 793.89 OTH (ABN) FINDINGS ON RADIOLOGICAL [...] 786.50 CHEST PAIN NOS 07/22/2017 HELIO WILEY ELECTRONIC SPECIALIST Ot R92.8 OTH ABN AND INCONCLUSIVE FINDINGS ON DX 07/22/2017 DAVID SMYTH DO Ot Z01.818 ENCOUNTER FOR OTHER PREPROCEDURAL EXAMIN 07/22/2017 JED SAINZ DO Ot I25.10 ATHSCL HEART DISEASE OF [place] CORONARY 07/22/2017 JED SAINZ DO Ot R06.00 [...] SAUER Ot I25.10 ATHSCL HEART DISEASE OF [place] CORONARY 07/22/2017 JOSE ANGEL SAUER Ot 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 07/22/2017 JOSE ANGEL SAUER Ot R06.02 SHORTNESS OF BREATH 07/22/2017 WILFRIDO FISHER MD Ot E11.628 TYPE 2 DIABETES MELLITUS WITH OTHER SKIN 07/22/2017 WILFRIDO FISHER MD Ot L03.031 CELLULITIS OF RIGHT TOE 07/22/2017 WILFRIDO FISHER MD Ot S90.211A CONTUSION OF RIGHT GREAT TOE W DAMAGE TO 07/25/2017 ANGEL RIDLEY UNARMED SECURITY OFFICER Ot Z12.31 ENCNTR SCREEN MAMMOGRAM FOR MALIGNANT NE 08/12/2017 DULCE MARIALANGEL UNARMED SECURITY OFFICER Ot Z12.31 ENCNTR SCREEN MAMMOGRAM FOR MALIGNANT NE 08/26/2017 ANGEL RIDLEY UNARMED SECURITY OFFICER Ot Z12.31 ENCNTR SCREEN MAMMOGRAM FOR MALIGNANT [...] DO Ot I25.10 ATHSCL HEART DISEASE OF [place] CORONARY 10/05/2017 JED SAINZ DO Ot R06.00 [...] Ot E66.9 OBESITY, UNSPECIFIED 10/05/2017 JAYY JIANG ELECTRONIC SPECIALIST Ot F41.9 ANXIETY DISORDER, UNSPECIFIED 10/05/2017 JAYY [...] SAUER Ot I25.10 ATHSCL HEART DISEASE OF [place] CORONARY 10/05/2017 JOSE ANGEL SAUER Ot 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 10/05/2017 JOSE ANGEL SAUER Ot R06.02 SHORTNESS OF BREATH 10/05/2017 WILFRIDO FISHER MD Ot E11.628 TYPE 2 DIABETES MELLITUS WITH OTHER SKIN 10/05/2017 WILFRIDO FISHER MD Ot L03.031 CELLULITIS OF RIGHT TOE 10/05/2017 WILFRIDO FISHER MD Ot S90.211A CONTUSION OF RIGHT GREAT TOE W DAMAGE TO 10/05/2017 ANGEL RIDLEY Ot Z12.31 ENCNTR SCREEN MAMMOGRAM FOR MALIGNANT NE 10/25/2017 DAVID SMYTH DO Ot D64.9 ANEMIA, UNSPECIFIED 10/25/2017 DAVID SMYTH DO Ot K92.1 MELENA 10/25/2017 DAVID SMYTH DO Ot Z01.818 ENCOUNTER FOR OTHER PREPROCEDURAL EXAMIN 10/27/2017 DAVID SMYTH DO Ot D64.9 ANEMIA, UNSPECIFIED 10/27/2017 SMYTH DAVID VERDE Ot K92.1 MELENA 10/27/2017 DAVID SMYTH DO Ot Z01.818 ENCOUNTER FOR OTHER PREPROCEDURAL EXAMIN 11/01/2017 DAVID SMYTH DO Ot D12.2 BENIGN NEOPLASM OF ASCENDING COLON 11/01/2017 DAVID SMYTH DO Ot D50.9 IRON DEFICIENCY ANEMIA, UNSPECIFIED 11/01/2017 DAVID SMYTH DO Ot E11.9 TYPE 2 DIABETES MELLITUS WITHOUT COMPLIC 11/01/2017 DAVID SMYTH DO Ot I10 ESSENTIAL (PRIMARY) HYPERTENSION 11/01/2017 DAVID SMYTH DO Ot I25.10 ATHSCL HEART DISEASE OF [place] CORONARY 11/01/2017 DAVID SMYTH DO Ot J45.909 UNSPECIFIED ASTHMA, UNCOMPLICATED 11/01/2017 DAVID SMYTH DO Ot K21.0 GASTRO-ESOPHAGEAL REFLUX DISEASE WITH ES 11/01/2017 DAVID SMYTH DO Ot K29.70 GASTRITIS, UNSPECIFIED, WITHOUT BLEEDING 11/01/2017 DAVID SMYTH DO Ot K57.30 DVRTCLOS OF LG INT W/O PERFORATION OR AB 11/01/2017 DAVID SMYTH DO Ot K59.00 CONSTIPATION, UNSPECIFIED 11/01/2017 DAVID SMYTH DO Ot K92.1 MELENA 11/01/2017 DAVID SMYTH DO Ot R56.9 UNSPECIFIED CONVULSIONS 11/01/2017 DAVID SMYTH DO Ot Z79.82 SENIOR CARE (CURRENT) USE OF ASPIRIN 11/01/2017 DAVID SMYTH DO Ot Z79.84 REAL ESTATE AGENT/BROKER (CURRENT) USE OF ORAL HYPOGLYC 11/01/2017 DAVID SMYTH DO Ot Z79.899 OTHER REAL ESTATE AGENT/BROKER (CURRENT) DRUG THERAPY 11/01/2017 DAVID SMYTH DO Ot Z87.891 PERSONAL HISTORY OF NICOTINE DEPENDENCE 11/09/2017 ELIZ JASON MD Ot D50.0 IRON DEFICIENCY ANEMIA SECONDARY TO BLOO 11/09/2017 ELIZ JASON MD Ot E11.9 TYPE 2 DIABETES MELLITUS WITHOUT COMPLIC 11/09/2017 ELIZ JASON MD, Ot E78.5 HYPERLIPIDEMIA, UNSPECIFIED 11/09/2017 ELIZ JASON MD Ot G40.909 EPILEPSY, UNSP, NOT INTRACTABLE, WITHOUT 11/09/2017 ELIZ JASON MD, Ot G47.30 SLEEP APNEA, UNSPECIFIED 11/09/2017 ELIZ JASON MD, Ot I10 ESSENTIAL (PRIMARY) HYPERTENSION 11/09/2017 ELIZ JASON MD, Ot I25.10 ATHSCL HEART DISEASE OF [place] CORONARY 11/09/2017 ELIZ JASON MD, Ot J45.909 UNSPECIFIED ASTHMA, UNCOMPLICATED 11/09/2017 ELIZ JASON MD, Ot J98.11 ATELECTASIS 11/09/2017 ELIZ JASON MD, Ot K21.9 GASTRO-ESOPHAGEAL REFLUX DISEASE WITHOUT 11/09/2017 ELIZ JASON MD Ot K80.10 CALCULUS OF GALLBLADDER W CHRONIC CHOLEC 11/09/2017 ELIZ JASON MD Ot R09.02 HYPOXEMIA 11/09/2017 ELIZ JASON MD, Ot Z79.82 REAL ESTATE AGENT/BROKER (CURRENT) USE OF ASPIRIN 11/09/2017 ELIZ JASON MD, Ot Z79.84 REAL ESTATE AGENT/BROKER (CURRENT) USE OF ORAL HYPOGLYC 11/09/2017 ELIZ JASON MD, Ot Z79.899 OTHER REAL ESTATE AGENT/BROKER (CURRENT) DRUG THERAPY 11/09/2017 ELIZ JASON MD, Ot Z87.891 PERSONAL HISTORY OF NICOTINE DEPENDENCE 11/10/2017 DAVID SMYTH DO Ot D12.2 BENIGN NEOPLASM OF ASCENDING COLON 11/10/2017 DAVID SMYTH DO Ot D50.9 IRON DEFICIENCY ANEMIA, UNSPECIFIED 11/10/2017 DAVID SMYTH DO Ot E11.9 TYPE 2 DIABETES MELLITUS WITHOUT COMPLIC 11/10/2017 DAVID SMYTH DO Ot I10 ESSENTIAL (PRIMARY) HYPERTENSION 11/10/2017 DAVID SMYTH DO Ot I25.10 ATHSCL HEART DISEASE OF [place] CORONARY 11/10/2017 DAVID SMYTH DO Ot J45.909 UNSPECIFIED ASTHMA, UNCOMPLICATED 11/10/2017 DAVID SMYTH DO Ot K21.0 GASTRO-ESOPHAGEAL REFLUX DISEASE WITH ES 11/10/2017 DAVID SMYTH DO Ot K29.70 GASTRITIS, UNSPECIFIED, WITHOUT BLEEDING 11/10/2017 DAVID SMYTH DO Ot K57.30 DVRTCLOS OF LG INT W/O PERFORATION OR AB 11/10/2017 DAVID SMYTH DO Ot K59.00 CONSTIPATION, UNSPECIFIED 11/10/2017 DAVID SMYTH DO Ot K92.1 MELENA 11/10/2017 LIBRA VERDE DAVID D Ot R56.9 UNSPECIFIED CONVULSIONS [facility]/10/[facility] REAL ESTATE AGENT/BROKER (CURRENT) USE OF ASPIRIN 11/10/2017 [facility] Z79.84 REAL ESTATE AGENT/BROKER (CURRENT) USE OF ORAL HYPOGLYC 11/10/2017 [facility] Z79.899 OTHER SENIOR CARE (CURRENT) DRUG THERAPY 11/10/2017 [facility] DAVID Galilea Ot Z87.891 PERSONAL HISTORY OF NICOTINE DEPENDENCE 11/11/2017 ELIZ JASON MD, Ot D50.0 IRON DEFICIENCY ANEMIA SECONDARY TO BLOO 11/11/2017 ELIZ JASON MD, Ot E11.9 TYPE 2 DIABETES MELLITUS WITHOUT COMPLIC 11/11/2017 ELIZ JASON MD, Ot E78.5 HYPERLIPIDEMIA, UNSPECIFIED 11/11/2017 ELIZ JASON MD, Ot G40.909 EPILEPSY, UNSP, NOT INTRACTABLE, WITHOUT 11/11/2017 ELIZ JASON MD, Ot G47.30 SLEEP APNEA, UNSPECIFIED 11/11/2017 ELIZ JASON MD Ot I10 ESSENTIAL (PRIMARY) HYPERTENSION 11/11/2017 ELIZ JASON MD, Ot I25.10 ATHSCL HEART DISEASE OF [place] CORONARY 11/11/2017 ELIZ JASON MD, Ot J45.909 UNSPECIFIED ASTHMA, UNCOMPLICATED 11/11/2017 ELIZ JASON MD, Ot J98.11 ATELECTASIS 11/11/2017 ELIZ JASON MD, Ot K21.9 GASTRO-ESOPHAGEAL REFLUX DISEASE WITHOUT 11/11/2017 ELIZ JASON MD, Ot K80.10 CALCULUS OF GALLBLADDER W CHRONIC CHOLEC 11/11/2017 ELIZ JASON MD Ot R09.02 HYPOXEMIA 11/11/2017 ELIZ JASON MD, Ot Z79.82 SENIOR CARE (CURRENT) USE OF ASPIRIN 11/11/2017 ELIZ JASON MD Ot Z79.84 REAL ESTATE AGENT/BROKER (CURRENT) USE OF ORAL HYPOGLYC 11/11/2017 ELIZ JASON MD, Ot Z79.899 OTHER REAL ESTATE AGENT/BROKER (CURRENT) DRUG THERAPY 11/11/2017 ELIZ JASON MD, Ot Z87.891 PERSONAL HISTORY OF NICOTINE DEPENDENCE 11/30/2017 KENDRICKKAMILA ZALDIVAR Neftali Ot D50.9 IRON DEFICIENCY ANEMIA, UNSPECIFIED 11/30/2017 KAMILA MARKS Neftali Ot E11.9 TYPE 2 DIABETES MELLITUS WITHOUT COMPLIC 11/30/2017 KAMILA MARKS Neftali Ot E78.5 HYPERLIPIDEMIA, UNSPECIFIED 11/30/2017 KAMILA MARKS Neftali Ot G47.33 OBSTRUCTIVE SLEEP APNEA (ADULT) (PEDIATR 11/30/2017 KENDRICKKAMILA Ot I10 ESSENTIAL (PRIMARY) HYPERTENSION 11/30/2017 KENDRICK SHARONERICH Neftali Ot I25.10 ATHSCL HEART DISEASE OF [place] CORONARY 11/30/2017 KENDRICKKAMILA ZALDIVAR Neftali Ot Z79.82 REAL ESTATE AGENT/BROKER (CURRENT) USE OF ASPIRIN 11/30/2017 KENDRICKKAMILA Ot Z79.84 SENIOR CARE (CURRENT) USE OF ORAL HYPOGLYC 11/30/2017 KENDRICKKAMILA Ot Z79.899 OTHER REAL ESTATE AGENT/BROKER (CURRENT) DRUG THERAPY 12/01/2017 ELIZ JAOSN MD, Ot D50.0 IRON DEFICIENCY ANEMIA SECONDARY TO BLOO 12/01/2017 ELIZ JASON MD, Ot E11.9 TYPE 2 DIABETES MELLITUS WITHOUT COMPLIC 12/01/2017 ELIZ JASON MD, Ot E78.5 HYPERLIPIDEMIA, UNSPECIFIED 12/01/2017 ELIZ JASON MD, Ot G40.909 EPILEPSY, UNSP, NOT INTRACTABLE, WITHOUT 12/01/2017 ELIZ JASON MD, Ot G47.30 SLEEP APNEA, UNSPECIFIED 12/01/2017 ELIZ JASON MD Ot I10 ESSENTIAL (PRIMARY) HYPERTENSION 12/01/2017 ELIZ JASON MD, Ot I25.10 ATHSCL HEART DISEASE OF [place] CORONARY 12/01/2017 ELIZ JASON MD, Ot J45.909 UNSPECIFIED ASTHMA, UNCOMPLICATED 12/01/2017 ELIZ JASON MD, Ot J98.11 ATELECTASIS 12/01/2017 ELIZ JASON MD, Ot K21.9 GASTRO-ESOPHAGEAL REFLUX DISEASE WITHOUT 12/01/2017 ELIZ JASON MD, Ot K80.10 CALCULUS OF GALLBLADDER W CHRONIC CHOLEC 12/01/2017 ELIZ JASON MD Ot R09.02 HYPOXEMIA 12/01/2017 ELIZ JASON MD, Ot Z79.82 SENIOR CARE (CURRENT) USE OF ASPIRIN 12/01/2017 ELIZ JASON MD, Ot Z79.84 SENIOR CARE (CURRENT) USE OF ORAL HYPOGLYC 12/01/2017 ELIZ JASON MD, Ot Z79.899 OTHER SENIOR CARE (CURRENT) DRUG THERAPY 12/01/2017 ELIZ JASON MD, Ot Z87.891 PERSONAL HISTORY OF NICOTINE DEPENDENCE 12/14/2017 JAYY JIANG APRN Ot J98.4 OTHER DISORDERS OF LUNG 12/20/2017 KENDRICK BOBAN N Ot D50.9 IRON DEFICIENCY ANEMIA, UNSPECIFIED 12/20/2017 KENDRICK, BOBAN N Ot E11.9 TYPE 2 DIABETES MELLITUS WITHOUT COMPLIC 12/20/2017 KENDRICK, BOBAN N Ot E78.5 HYPERLIPIDEMIA, UNSPECIFIED 12/20/2017 KENDRICK, BOBAN N Ot G47.33 OBSTRUCTIVE SLEEP APNEA (ADULT) (PEDIATR 12/20/2017 KNEDRICK, BOBAN N Ot I10 ESSENTIAL (PRIMARY) HYPERTENSION 12/20/2017 KENDRICK, BOBAN N Ot I25.10 ATHSCL HEART DISEASE OF [place] CORONARY 12/20/2017 KENDRICK, BOBAN N Ot Z79.82 SENIOR CARE (CURRENT) USE OF ASPIRIN 12/20/2017 KENDRICK, BOBAN N Ot Z79.84 REAL ESTATE AGENT/BROKER (CURRENT) USE OF ORAL HYPOGLYC 12/20/2017 KENDRICK BOBAN N Ot Z79.899 OTHER SENIOR CARE (CURRENT) DRUG THERAPY 12/22/2017 KENDRICK BOBAN N Ot D50.9 IRON DEFICIENCY ANEMIA, UNSPECIFIED 12/22/2017 KENDRICK, BOBAN N Ot E11.9 TYPE 2 DIABETES MELLITUS WITHOUT COMPLIC 12/22/2017 KENDRICK, BOBAN N Ot E78.5 HYPERLIPIDEMIA, UNSPECIFIED 12/22/2017 KENDRICK, BOBAN N Ot G47.33 OBSTRUCTIVE SLEEP APNEA (ADULT) (PEDIATR 12/22/2017 KENDRICK, BOBAN N Ot I10 ESSENTIAL (PRIMARY) HYPERTENSION 12/22/2017 KENDRICK, BOBAN N Ot I25.10 ATHSCL HEART DISEASE OF [place] CORONARY 12/22/2017 KENDRICK, BOBAN N Ot Z79.82 SENIOR CARE (CURRENT) USE OF ASPIRIN 12/22/2017 KENDRICK, BOBAN N Ot Z79.84 REAL ESTATE AGENT/BROKER (CURRENT) USE OF ORAL HYPOGLYC 12/22/2017 KENDRICK, BOBAN N Ot Z79.899 OTHER SENIOR CARE (CURRENT) DRUG THERAPY 01/09/2018 DEIDRE JAYY Merlene MARÍA Ot J98.4 OTHER DISORDERS OF LUNG 01/10/2018 LISA PAIGE MD Ot 272.4 HYPERLIPIDEMIA NEC/NOS 01/10/2018 LISA PAIGE MD Ot 397.0 TRICUSPID VALVE DISEASE 01/10/2018 LISA PAIGE MD Ot 401.9 HYPERTENSION NOS 01/10/2018 LISA PAIGE MD Ot 424.0 MITRAL VALVE DISORDER 01/10/2018 LISA PAIGE MD Ot 429.3 CARDIOMEGALY 01/10/2018 LISA PAIGE MD Ot 786.50 CHEST PAIN NOS 01/10/2018 LISA PAIGE MD Ot 272.4 HYPERLIPIDEMIA NEC/NOS 01/10/2018 LISA PAIGE MD Ot 401.9 HYPERTENSION NOS 01/10/2018 LISA PAIGE MD Ot 786.50 CHEST PAIN NOS 01/10/2018 ABAD ORTIZ, BOOGIE Kirby Ot 719.46 JOINT PAIN-L/LEG 01/10/2018 ABAD ORTIZ, BOOGIE Kirby Ot V43.65 KNEE JOINT REPLACEMENT STATUS 01/10/2018 TAYLOR KUHN ELECTRONIC SPECIALIST Ot V76.12 OTH SCREEN MAMMO-MALIGN NEOPLASM OF ELA 01/10/2018 TAYLOR KUHN ELECTRONIC SPECIALIST Ot 793.89 OTH (ABN) FINDINGS ON RADIOLOGICAL EXAMI 01/10/2018 TAYLOR KUHN ELECTRONIC SPECIALIST Ot 793.89 OTH (ABN) FINDINGS ON RADIOLOGICAL EXAMI 01/10/2018 BROOKLYN ORTIZ, PAIGE Avila Ot 719.41 JOINT PAIN-SHLDER 01/10/2018 JOSE ANGEL SAUER Ot 401.9 HYPERTENSION NOS 01/10/2018 JOSE ANGEL SAUER Ot 414.00 CORON ATHEROSCLER NOS TYPE VESSEL, NATIV 01/10/2018 JOSE ANGEL SAUER Ot 433.10 CAROTID ARTERY OCCLUSION W O CEREBRAL IN 01/10/2018 JOSE ANGEL SAUER Ot 786.50 CHEST PAIN NOS 01/10/2018 JOSE ANGEL SAUER Ot 401.9 HYPERTENSION NOS 01/10/2018 JOSE ANGEL SAUER Ot 414.00 CORON ATHEROSCLER NOS TYPE VESSEL, NATIV 01/10/2018 JOSE ANGEL SAUER Ot 433.10 CAROTID ARTERY OCCLUSION W O CEREBRAL IN 01/10/2018 JOSE ANGEL SAUER Ot 786.50 CHEST PAIN NOS 01/10/2018 GRUPOKRISTINEHELIO Jack DANIEL Ot R92.8 OTH ABN AND INCONCLUSIVE FINDINGS ON DX 01/10/2018 DAVID SMYTH DO Ot Z01.818 ENCOUNTER FOR OTHER PREPROCEDURAL EXAMIN 01/10/2018 JED SAINZ DO Ot I25.10 ATHSCL HEART DISEASE OF [place] CORONARY 01/10/2018 JED SAINZ DO Ot R06.00 DYSPNEA, UNSPECIFIED 01/10/2018 JED SAINZ DO Ot E27.9 DISORDER OF ADRENAL GLAND, UNSPECIFIED 01/10/2018 JED SAINZ DO Ot I31.3 PERICARDIAL EFFUSION (NONINFLAMMATORY) 01/10/2018 JED SAINZ DO Ot K80.20 CALCULUS OF GALLBLADDER W/O CHOLECYSTITI 01/10/2018 JED SAINZ DO Ot R59.0 LOCALIZED ENLARGED LYMPH NODES 01/10/2018 JED SAINZ DO Ot E66.9 OBESITY, UNSPECIFIED 01/10/2018 JED SAINZ DO Ot G47.33 OBSTRUCTIVE SLEEP APNEA (ADULT) (PEDIATR 01/10/2018 JED SAINZ DO Ot J30.9 ALLERGIC RHINITIS, UNSPECIFIED 01/10/2018 JED SAINZ DO Ot R06.09 OTHER FORMS OF DYSPNEA 01/10/2018 JAYY JIANG APRN Ot D12.6 BENIGN NEOPLASM OF COLON, UNSPECIFIED 01/10/2018 JAYY JIANG APRN Ot E66.9 OBESITY, UNSPECIFIED 01/10/2018 JAYY JIANG APRN Ot F41.9 ANXIETY DISORDER, UNSPECIFIED 01/10/2018 JAYY JIANG APRN Ot G47.33 OBSTRUCTIVE SLEEP APNEA (ADULT) (PEDIATR 01/10/2018 JAYY JIANG APRN Ot J30.9 ALLERGIC RHINITIS, UNSPECIFIED 01/10/2018 JAYY JIANG APRN Ot J18.9 PNEUMONIA, UNSPECIFIED ORGANISM 01/10/2018 ANGEL RIDLEY Ot Z12.31 ENCNTR SCREEN MAMMOGRAM FOR MALIGNANT NE 01/10/2018 JOSE ANGEL SAUER Ot I10 ESSENTIAL (PRIMARY) HYPERTENSION 01/10/2018 JOSE ANGEL SAUER Ot I25.10 ATHSCL HEART DISEASE OF [place] CORONARY 01/10/2018 JOSE ANGEL SAUER Ot 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 01/10/2018 JOSE ANGEL SAUER Ot R06.02 SHORTNESS OF BREATH 01/10/2018 NATALIA ORTIZ, WILFRIDO Tripathi Ot E11.628 TYPE 2 DIABETES MELLITUS WITH OTHER SKIN 01/10/2018 WILFRIDO FISHER MD Ot L03.031 CELLULITIS OF RIGHT TOE 01/10/2018 WILFRIDO FISHER MD, Ot S90.211A CONTUSION OF RIGHT GREAT TOE W DAMAGE TO 01/10/2018 ANGEL RIDLEY Kofi STATON Ot Z12.31 ENCNTR SCREEN MAMMOGRAM FOR MALIGNANT NE 01/10/2018 KAMILA MARKS Ot D50.9 IRON DEFICIENCY ANEMIA, UNSPECIFIED 01/10/2018 KAMILA MARKS Ot E11.9 TYPE 2 DIABETES MELLITUS WITHOUT COMPLIC 01/10/2018 KAMILA MARKS Ot E78.5 HYPERLIPIDEMIA, UNSPECIFIED 01/10/2018 KAMILA MARKS Ot G47.33 OBSTRUCTIVE SLEEP APNEA (ADULT) (PEDIATR 01/10/2018 KAMILA MARKS Ot I10 ESSENTIAL (PRIMARY) HYPERTENSION 01/10/2018 KAMILA MARKS Ot I25.10 ATHSCL HEART DISEASE OF [place] CORONARY 01/10/2018 KAMILA MARKS Ot Z79.82 REAL ESTATE AGENT/BROKER (CURRENT) USE OF ASPIRIN 01/10/2018 KAMILA MARKS Ot Z79.84 REAL ESTATE AGENT/BROKER (CURRENT) USE OF ORAL HYPOGLYC 01/10/2018 KAMILA MARKS Ot Z79.899 OTHER REAL ESTATE AGENT/BROKER (CURRENT) DRUG THERAPY 01/10/2018 JAYY JIANG APRN Ot J98.4 OTHER DISORDERS OF LUNG 01/10/2018 JAYY JIANG APRN Ot J98.4 OTHER DISORDERS OF LUNG 01/10/2018 JAYY JIANG APRN Ot J98.4 OTHER DISORDERS OF LUNG 01/16/2018 JAYY JIANG APRN Ot J98.4 OTHER DISORDERS OF LUNG 01/17/2018 JAYY JIANG ELECTRONIC SPECIALIST Ot J98.4 OTHER DISORDERS OF LUNG 02/07/2018 JAYY JIANG ELECTRONIC SPECIALIST Ot J98.4 OTHER DISORDERS OF LUNG Procedures Code [place] [address] INDIV PSYTX 45/50 MIN 04/26/2012 04726 ROUTINE VENIPUNCTURE 05/31/2012 04656 INDIV PSYTX 45/50 MIN 05/31/2012 84086 A1C (IN-HOUSE) 05/31/2012 25121 BMP 05/31/2012 [id number] GFR CALC (RESULT ONLY) 05/31/2012 83255 MAGNESIUM 05/31/2012 01136 A1C (IN-HOUSE) 09/12/2012 98506 MICRO ALBUMIN-IN HOUSE 09/12/2012 35666 MICROALBUMIN 09/12/2012 27204 PSYTX PT&/FAMILY 45 MINUTES 10/06/2012 54847 PSYTX PT&/FAMILY 45 MINUTES 11/29/2012 58245 A1C (IN-HOUSE) 02/21/2013 66681 PSYTX PT&/FAMILY 45 MINUTES 03/06/2013 24293 ROUTINE VENIPUNCTURE 03/23/2013 87424 TSH 03/23/2013 20194 UA LONG DIP 03/23/2013 51442 MICRO ALBUMIN-IN HOUSE 03/23/2013 01737 CBC 03/23/2013 56878 LIPID PANEL 03/23/2013 G0008 FLU ADMINISTRATION ( MEDICARE ONLY) 03/23/2013 80322 CMP 03/23/2013 7548451 GFR CALC (RESULT ONLY) 03/23/2013 33173 A1C (IN-HOUSE) 05/25/2013 97824 A1C (IN-HOUSE) 09/03/2013 82300 XRAY KNEE LEFT, 1 OR 2 VIEWS 11/09/2013 29297 A1C (IN-HOUSE) 12/07/2013 01299 ROUTINE VENIPUNCTURE 02/19/2014 59616 CBC 02/19/2014 46324 CMP 02/19/2014 03276 LIPID PANEL 02/19/2014 9255576 GFR CALC (RESULT ONLY) 02/19/2014 01141 A1C (IN-HOUSE) 03/13/2014 12449 MICRO ALBUMIN-IN HOUSE 03/13/2014 75118 MICROALBUMIN 03/13/2014 51276 UA W/ CULTURE IF INDICATED 04/15/2014 35339 UA LONG DIP 04/22/2014 58109 MAMMOGRAM DX, LEFT 05/09/2014 03969 UA W/ CULTURE IF INDICATED 05/09/2014 16981 MAMMOGRAM, SCREENING 05/15/2014 19806 A1C (IN-HOUSE) 06/28/2014 05896 XRAY SHOULDER LEFT COMP 2 VIEWS 09/13/2014 22191 MICROALBUMIN 09/13/2014 35248 MICRO ALBUMIN-IN HOUSE 09/13/2014 37629 UA LONG DIP 10/11/2014 Results Test Result Range [id number] - 06/07/16 08:48 Serum or plasma urea [...] 04/18/17 12:46 CULTURE, URINE, ROUTINE SEE NOTE NR CULTURE, URINE - 05/23/17 10:57 CULTURE, URINE, ROUTINE SEE NOTE [facility] MICROALBUMIN/CREATININE RATIO, URINE - 09/20/17 09:09 CREATININE, [...] 10.1 fL 7.5-12.5 ABSOLUTE NEUTROPHILS 6300 cells/uL 1670-5016 ABSOLUTE LYMPHOCYTES 2920 cells/uL 850-3900 ABSOLUTE MONOCYTES [...] 10.7 fL 7.5-12.5 ABSOLUTE NEUTROPHILS 6445 cells/uL 0031-1314 ABSOLUTE LYMPHOCYTES 3191 cells/uL 850-3900 ABSOLUTE MONOCYTES 721 cells/uL 200-950 ABSOLUTE EOSINOPHILS 170 cells/uL 15-500 ABSOLUTE BASOPHILS 74 cells/uL 0-200 NEUTROPHILS 60.8 % NRG LYMPHOCYTES 30.1 % NRG MONOCYTES 6.8 % NRG EOSINOPHILS 1.6 % NRG BASOPHILS 0.7 % NRG Complete urinalysis with reflex to culture - 11/06/17 19:20 Urine color determination YELLOW NRG Urine clarity determination CLEAR NRG Urine pH measurement by test strip 5 5-9 Specific gravity of urine by test strip 1.020 1.016- 1.022 Urine protein assay by test strip, semi-quantitative 2+ NEGATIVE Urine glucose detection by automated test strip 3+ NEGATIVE Erythrocytes detection in urine sediment by light microscopy NEGATIVE NEGATIVE Urine ketones detection by automated test strip 1+ NEGATIVE Urine nitrite detection by test strip NEGATIVE NEGATIVE Urine total bilirubin detection by test strip NEGATIVE NEGATIVE Urine urobilinogen measurement by automated test strip (mass/volume) NORMAL NORMAL Urine leukocyte esterase detection by dipstick 1+ NEGATIVE Automated urine sediment erythrocyte count by microscopy (number/high power field) NONE NRG Automated urine sediment leukocyte count by microscopy (number/high power field ) [HPF] NRG Bacteria detection in urine sediment by light microscopy NONE NRG Squamous epithelial cells detection in urine sediment by light microscopy 0-2 NRG Crystals detection in urine sediment by light microscopy PRESENT NRG Casts detection in urine sediment by light microscopy NONE NRG Mucus detection in urine sediment by light microscopy NEGATIVE NRG Complete urinalysis with reflex to culture NO NRG Uric acid crystals detection in urine sediment by light microscopy FEW NRG Complete blood count (CBC) with automated white blood cell (WBC) differential - 11/06/17 19:47 Blood leukocytes automated count (number/volume) 13.2 10*3/uL 4.3-11.0 Blood erythrocytes automated count (number/volume) 4.35 10*6/uL 4.35-5.85 Venous blood hemoglobin measurement (mass/volume) 10.4 g/dL 11.5-16.0 Blood hematocrit (volume fraction) 34 % 35-52 Automated erythrocyte mean corpuscular volume 78 [foz_us] 80-99 Automated erythrocyte mean corpuscular hemoglobin (mass per erythrocyte) 24 pg 25-34 Automated erythrocyte mean corpuscular hemoglobin concentration measurement ( mass/volume) 31 g/dL 32-36 Automated erythrocyte distribution width ratio 23.6 % 10.0-14.5 Automated blood platelet count (count/volume) 302 10*3/uL 130-400 Automated blood platelet mean volume measurement 10.9 [foz_us] 7.4-10.4 Automated blood neutrophils/100 leukocytes 87 % 42-75 Automated blood lymphocytes/100 leukocytes 9 % 12-44 Blood monocytes/100 leukocytes 4 % 0-12 Automated blood eosinophils/100 leukocytes 0 % 0-10 Automated blood basophils/100 leukocytes 0 % 0-10 Blood neutrophils automated count (number/volume) 11.5 10*3 1.8-7.8 Blood lymphocytes automated count (number/volume) 1.1 10*3 1.0-4.0 Blood monocytes automated count (number/volume) 0.5 10*3 0.0-1.0 Automated eosinophil count 0.0 10*3/uL 0.0-0.3 Automated blood basophil count (count/volume) 0.0 10*3/uL 0.0-0.1 Comprehensive metabolic panel - 11/06/17 19:47 Serum or plasma sodium measurement (moles/volume) 140 mmol/L 135-145 Serum or plasma potassium measurement (moles/volume) 4.8 mmol/L 3.6-5.0 Serum or plasma chloride measurement (moles/volume) 111 mmol/L 98-107 Carbon dioxide 16 mmol/L 21-32 Serum or plasma anion gap determination (moles/volume) 13 mmol/L 5-14 Serum or plasma urea nitrogen measurement (mass/volume) 15 mg/dL 7-18 Serum or plasma creatinine measurement (mass/volume) 1.10 mg/dL 0.60-1.30 Serum or plasma urea nitrogen/creatinine mass ratio 14 NRG Serum or plasma creatinine measurement with calculation of estimated glomerular filtration rate 50 NRG Serum or plasma glucose measurement (mass/volume) 286 mg/dL 70-105 Serum or plasma calcium measurement (mass/volume) 9.1 mg/dL 8.5-10.1 Serum or plasma total bilirubin measurement (mass/volume) 0.3 mg/dL 0.1-1.0 Serum or plasma alkaline phosphatase measurement (enzymatic activity/volume) 91 U/L 40-136 Serum or plasma aspartate aminotransferase measurement (enzymatic activity/ volume) 22 U/L 5-34 Serum or plasma alanine aminotransferase measurement (enzymatic activity/volume ) 26 U/L 0-55 Serum or plasma protein measurement (mass/volume) 7.3 g/dL 6.4-8.2 Serum or plasma albumin measurement (mass/volume) 4.3 g/dL 3.2-4.5 Serum or plasma amylase measurement (enzymatic activity/volume) - 11/06/17 19: 47 Serum or plasma amylase measurement (enzymatic activity/volume) 55 U /L 25-125 Lipase - 11/06/17 19:47 Lipase 28 U/L 8-78 Complete blood count (CBC) with automated white blood cell (WBC) differential - 11/07/17 06:55 Blood leukocytes automated count (number/volume) 10.4 10*3/uL 4.3-11.0 Blood erythrocytes automated count (number/volume) 3.96 10*6/uL 4.35-5.85 Venous blood hemoglobin measurement (mass/volume) 9.5 g/dL 11.5-16.0 Blood hematocrit (volume fraction) 31 % 35-52 Automated erythrocyte mean corpuscular volume 79 [foz_us] 80-99 Automated erythrocyte mean corpuscular hemoglobin (mass per erythrocyte) 24 pg 25-34 Automated erythrocyte mean corpuscular hemoglobin concentration measurement ( mass/volume) 30 g/dL 32-36 Automated erythrocyte distribution width ratio 22.8 % 10.0-14.5 Automated blood platelet count (count/volume) 286 10*3/uL 130-400 Automated blood platelet mean volume measurement 10.6 [foz_us] 7.4-10.4 Automated blood neutrophils/100 leukocytes 83 % 42-75 Automated blood lymphocytes/100 leukocytes 12 % 12-44 Blood monocytes/100 leukocytes 5 % 0-12 Automated blood eosinophils/100 leukocytes 0 % 0-10 Automated blood basophils/100 leukocytes 0 % 0-10 Blood neutrophils automated count (number/volume) 8.7 10*3 1.8-7.8 Blood lymphocytes automated count (number/volume) 1.2 10*3 1.0-4.0 Blood monocytes automated count (number/volume) 0.5 10*3 0.0-1.0 Automated eosinophil count 0.0 10*3/uL 0.0-0.3 Automated blood basophil count (count/volume) 0.0 10*3/uL 0.0-0.1 Comprehensive metabolic panel - 11/07/17 06:55 Serum or plasma sodium measurement (moles/volume) 138 mmol/L 135-145 Serum or plasma potassium measurement (moles/volume) 4.7 mmol/L 3.6-5.0 Serum or plasma chloride measurement (moles/volume) 110 mmol/L 98-107 Carbon dioxide 19 mmol/L 21-32 Serum or plasma anion gap determination (moles/volume) 9 mmol/L 5-14 Serum or plasma urea nitrogen measurement (mass/volume) 13 mg/dL 7-18 Serum or plasma creatinine measurement (mass/volume) 1.00 mg/dL 0.60-1.30 Serum or plasma urea nitrogen/creatinine mass ratio 13 NRG Serum or plasma creatinine measurement with calculation of estimated glomerular filtration rate 56 NRG Serum or plasma glucose measurement (mass/volume) 269 mg/dL 70-105 Serum or plasma calcium measurement (mass/volume) 8.5 mg/dL 8.5-10.1 Serum or plasma total bilirubin measurement (mass/volume) 0.3 mg/dL 0.1-1.0 Serum or plasma alkaline phosphatase measurement (enzymatic activity/volume) 72 U/L 40-136 Serum or plasma aspartate aminotransferase measurement (enzymatic activity/ volume) 15 U/L 5-34 Serum or plasma alanine aminotransferase measurement (enzymatic activity/volume ) 18 U/L 0-55 Serum or plasma protein measurement (mass/volume) 6.0 g/dL 6.4-8.2 Serum or plasma albumin measurement (mass/volume) 3.7 g/dL 3.2-4.5 Serum or plasma amylase measurement (enzymatic activity/volume) - 11/07/17 06: 55 Serum or plasma amylase measurement (enzymatic activity/volume) 36 U /L 25-125 Lipase - 11/07/17 06:55 Lipase 17 U/L 8-78 Methicillin resistant Staphylococcus aureus (MRSA) screening culture - 15:30 Methicillin resistant Staphylococcus aureus (MRSA) screening culture NEG NRG Capillary blood glucose measurement by glucometer (mass/volume) - 11/07/17 17: 26 Capillary blood glucose measurement by glucometer (mass/volume) 188 mg/dL 70-110 Capillary blood glucose measurement by glucometer (mass/volume) - 11/07/17 21: 52 Capillary blood glucose measurement by glucometer (mass/volume) 244 mg/dL 70-110 Automated blood complete blood count (hemogram) panel - 11/08/17 04:20 Blood leukocytes automated count (number/volume) 10.2 10*3/uL 4.3-11.0 Blood erythrocytes automated count (number/volume) 3.78 10*6/uL 4.35-5.85 Venous blood hemoglobin measurement (mass/volume) 9.0 g/dL 11.5-16.0 Blood hematocrit (volume fraction) 30 % 35-52 Automated erythrocyte mean corpuscular volume 80 [foz_us] 80-99 Automated erythrocyte mean corpuscular hemoglobin (mass per erythrocyte) 24 pg 25-34 Automated erythrocyte mean corpuscular hemoglobin concentration measurement ( mass/volume) 30 g/dL 32-36 Automated erythrocyte distribution width ratio 23.7 % 10.0-14.5 Automated blood platelet count (count/volume) 269 10*3/uL 130-400 Automated blood platelet mean volume measurement 10.2 [foz_us] 7.4-10.4 Comprehensive metabolic panel - 11/08/17 04:20 Serum or plasma sodium measurement (moles/volume) 141 mmol/L 135-145 Serum or plasma potassium measurement (moles/volume) 4.6 mmol/L 3.6-5.0 Serum or plasma chloride measurement (moles/volume) 112 mmol/L 98-107 Carbon dioxide 19 mmol/L 21-32 Serum or plasma anion gap determination (moles/volume) 10 mmol/L 5-14 Serum or plasma urea nitrogen measurement (mass/volume) 11 mg/dL 7-18 Serum or plasma creatinine measurement (mass/volume) 0.87 mg/dL 0.60-1.30 Serum or plasma urea nitrogen/creatinine mass ratio 13 NRG Serum or plasma creatinine measurement with calculation of estimated glomerular filtration rate > NRG Serum or plasma glucose measurement (mass/volume) 139 mg/dL 70-105 Serum or plasma calcium measurement (mass/volume) 8.3 mg/dL 8.5-10.1 Serum or plasma total bilirubin measurement (mass/volume) 0.3 mg/dL 0.1-1.0 Serum or plasma alkaline phosphatase measurement (enzymatic activity/volume) 62 U/L 40-136 Serum or plasma aspartate aminotransferase measurement (enzymatic activity/ volume) 35 U/L 5-34 Serum or plasma alanine aminotransferase measurement (enzymatic activity/volume ) 27 U/L 0-55 Serum or plasma protein measurement (mass/volume) 5.7 g/dL 6.4-8.2 Serum or plasma albumin measurement (mass/volume) 3.5 g/dL 3.2-4.5 Capillary blood glucose measurement by glucometer (mass/volume) - 11/08/17 05: 26 Capillary blood glucose measurement by glucometer (mass/volume) 157 mg/dL 70-110 Capillary blood glucose measurement by glucometer (mass/volume) - 11/08/17 11: 14 Capillary blood glucose measurement by glucometer (mass/volume) 241 mg/dL 70-110 Capillary blood glucose measurement by glucometer (mass/volume) - 11/08/17 16: 14 Capillary blood glucose measurement by glucometer (mass/volume) 203 mg/dL 70-110 Capillary blood glucose measurement by glucometer (mass/volume) - 11/08/17 21: 32 Capillary blood glucose measurement by glucometer (mass/volume) 173 mg/dL 70-110 Capillary blood glucose measurement by glucometer (mass/volume) - 11/09/17 05: 17 Capillary blood glucose measurement by glucometer (mass/volume) 191 mg/dL 70-110 Automated blood complete blood count (hemogram) panel - 11/09/17 07:46 Blood leukocytes automated count (number/volume) 9.9 10*3/uL 4.3-11.0 Blood erythrocytes automated count (number/volume) 4.17 10*6/uL 4.35-5.85 Venous blood hemoglobin measurement (mass/volume) 9.9 g/dL 11.5-16.0 Blood hematocrit (volume fraction) 33 % 35-52 Automated erythrocyte mean corpuscular volume 80 [foz_us] 80-99 Automated erythrocyte mean corpuscular hemoglobin (mass per erythrocyte) 24 pg 25-34 Automated erythrocyte mean corpuscular hemoglobin concentration measurement ( mass/volume) 30 g/dL 32-36 Automated erythrocyte distribution width ratio 23.0 % 10.0-14.5 Automated blood platelet count (count/volume) 296 10*3/uL 130-400 Automated blood platelet mean volume measurement 9.4 [foz_us] 7.4-10.4 Blood lactic acid measurement (moles/volume) - 11/09/17 07:46 Blood lactic acid measurement (moles/volume) 1.05 mmol/L 0.50-2.00 Comprehensive metabolic panel - 11/09/17 07:46 Serum or plasma sodium measurement (moles/volume) 141 mmol/L 135-145 Serum or plasma potassium measurement (moles/volume) 4.4 mmol/L 3.6-5.0 Serum or plasma chloride measurement (moles/volume) 108 mmol/L 98-107 Carbon dioxide 23 mmol/L 21-32 Serum or plasma anion gap determination (moles/volume) 10 mmol/L 5-14 Serum or plasma urea nitrogen measurement (mass/volume) 12 mg/dL 7-18 Serum or plasma creatinine measurement (mass/volume) 0.95 mg/dL 0.60-1.30 Serum or plasma urea nitrogen/creatinine mass ratio 13 NRG Serum or plasma creatinine measurement with calculation of estimated glomerular filtration rate 59 NRG Serum or plasma glucose measurement (mass/volume) 190 mg/dL 70-105 Serum or plasma calcium measurement (mass/volume) 9.1 mg/dL 8.5-10.1 Serum or plasma total bilirubin measurement (mass/volume) 0.4 mg/dL 0.1-1.0 Serum or plasma alkaline phosphatase measurement (enzymatic activity/volume) 74 U/L 40-136 Serum or plasma aspartate aminotransferase measurement (enzymatic activity/ volume) 39 U/L 5-34 Serum or plasma alanine aminotransferase measurement (enzymatic activity/volume ) 31 U/L 0-55 Serum or plasma protein measurement (mass/volume) 6.7 g/dL 6.4-8.2 Serum or plasma albumin measurement (mass/volume) 3.9 g/dL 3.2-4.5 Serum or plasma phosphate measurement (mass/volume) - 11/09/17 07:46 Serum or plasma phosphate measurement (mass/volume) 3.2 mg/dL 2.3-4.7 Magnesium - 11/09/17 07:46 Magnesium 1.9 mg/dL 1.8-2.4 Serum or plasma lithium measurement (moles/volume) - 11/09/17 07:46 BNP level 29.5 pg/mL <100.0 Capillary blood glucose measurement by glucometer (mass/volume) - 11/09/17 10: 58 Capillary blood glucose measurement by glucometer (mass/volume) 276 mg/dL 70-110 Capillary blood glucose measurement by glucometer (mass/volume) - 11/09/17 16: 36 Capillary blood glucose measurement by glucometer (mass/volume) 223 mg/dL 70-110 CULTURE, URINE - 11/17/17 14:52 CULTURE, URINE, ROUTINE SEE NOTE NRG Encounters ACCT No. Visit Date/Time Discharge Status Pt. Type Provider Facility Loc./Unit Complaint [id number] 10/11/2014 11:21:00 10/11/2014 23:59:59 CLS Outpatient BOOGIE ARAUJO APRN [id number] 09/13/2014 11:52:00 09/13/2014 23:59:59 CLS Outpatient BOOGIE ARAUJO APRN [id number] 06/28/2014 09:46:00 06/28/2014 23:59:59 CLS Outpatient BOOGIE ARAUJO APRN [id number] 05/15/2014 12:18:00 05/15/2014 23:59:59 CLS Outpatient TAYLOR KUHN APRN [id number] 05/09/2014 10:22:00 05/09/2014 23:59:59 CLS Outpatient TAYLOR KUHN APRN [id number] 05/09/2014 10:22:00 05/09/2014 23:59:59 CLS Outpatient TAYLOR KUHN APRN [id number] 04/22/2014 09:29:00 04/22/2014 23:59:59 CLS Outpatient BOOGIE ARAUJO APRN [id number] 04/15/2014 09:53:00 04/15/2014 23:59:59 CLS Outpatient BOOGIE ARAUJO APRN [id number] 04/12/2014 09:27:00 04/12/2014 23:59:59 CLS Outpatient BOOGIE ARAUJO APRN [id number] 03/13/2014 10:04:00 03/13/2014 23:59:59 CLS Outpatient BOOGIE ARAUJO APRN [id number] 02/19/2014 08:25:00 02/19/2014 23:59:59 CLS Outpatient BOOGIE ARAJUO APRN [id number] 12/07/2013 09:31:00 12/07/2013 23:59:59 CLS Outpatient BOOGIE ARAUJO APRN [id number] 12/07/2013 09:31:00 12/07/2013 23:59:59 CLS Outpatient BOOGIE ARAUJO APRN [id number] 11/09/2013 15:34:00 11/09/2013 23:59:59 CLS Outpatient LAURA HINKLE MD [id number] 11/09/2013 15:34:00 11/09/2013 23:59:59 CLS Outpatient BOOGIE ARAUJO APRN [id number] 09/03/2013 08:58:00 09/03/2013 23:59:59 CLS Outpatient BOOGIE ARAUJO APRN [id number] 09/03/2013 08:58:00 09/03/2013 23:59:59 CLS Outpatient BOOGIE ARAUJO APRN [id number] 08/08/2013 14:24:00 08/08/2013 23:59:59 CLS Outpatient BOOGIE ARAUJO APRN [id number] 08/01/2013 15:32:00 08/01/2013 23:59:59 CLS Outpatient BOOGIE ARAUJO APRN [id number] 05/25/2013 09:26:00 05/25/2013 23:59:59 CLS Outpatient LAURA HINKLE MD [id number] 05/25/2013 09:26:00 05/25/2013 23:59:59 CLS Outpatient LAURA HINKLE MD [id number] 04/23/2013 09:24:00 04/23/2013 23:59:59 CLS Outpatient BOOGIE ARAUJO APRN [id number] 03/23/2013 08:44:00 03/23/2013 23:59:59 CLS Outpatient BOOGIE ARAUJO APRN [id number] 03/23/2013 08:44:00 03/23/2013 23:59:59 CLS Outpatient DARRIUS HI DO [id number] 03/06/2013 09:25:00 03/06/2013 23:59:59 CLS Outpatient KENN OBRIEN Margarita [id number] 09/12/2012 14:12:00 09/12/2012 23:59:59 CLS Outpatient [id number] 05/31/2012 10:34:00 05/31/2012 23:59:59 CLS Outpatient BOOGIE ARAUJO APRN [id number] 05/31/2012 10:34:00 05/31/2012 23:59:59 CLS Outpatient [id number] 04/11/2012 13:52:00 04/11/2012 23:59:59 CLS Outpatient KENN OBRIEN Margarita [id number] 02/21/2013 10:30:00 Document Registration [id number] 11/23/2012 10:45:00 Document Registration [id number] 10/06/2012 10:46:00 Document Registration [id number] 12/23/2017 10:00:00 12/23/2017 23:59:59 CLS Outpatient BOOGIE ARAUJO APRN [facility] [id number] 11/17/2017 14:00:00 Document Registration [id number] 09/30/2017 09:20:00 Document Registration [id number] 09/27/2017 15:00:00 Document Registration [id number] 09/20/2017 09:09:00 Document Registration [id number] 09/20/2017 09:00:00 Document Registration [id number] 2017 11:00:00 Document Registration [id number] 04/18/2017 12:05:00 Document Registration [id number] 08/27/2016 09:11:00 Document Registration [id number] 02/07/2018 13:00:00 02/07/2018 23:59:59 CLS Outpatient JAYY JIANG APRN [facility] PULM RESTRICTIVE LUNG DISEASE [id number] 12/09/2017 07:57:00 12/09/2017 23:59:59 CLS Preadmit LISA PAIGE MD [facility] CARD CAD,CAROTID ARTERY STENOSIS,CHEST PAIN SYNDROME [id number] 11/22/2017 10:49:00 11/22/2017 23:59:59 CLS Outpatient KAMILA MARKS Neftali [facility] ONC [id number] 11/06/2017 22:30:00 11/09/2017 16:45:00 DIS Outpatient ELIZ JASON MD [facility] SDC CHOLELITHIASIS, INTRACTABLE PAIN AND NAUSEA [id number] 11/01/2017 07:53:00 11/01/2017 10:18:00 DIS Outpatient DAVID SMYTH DO [facility] ENDO DECREASED RBC'S/ANEMIA/ BLOOD IN STOOLS/CONSTIPATIO [id number] 10/25/2017 05:40:00 10/25/2017 15:16:00 DIS Outpatient DAVID SMYTH DO [facility] PREOP COLONOSCOPY/EGD [id number] 07/22/2017 09:52:00 07/22/2017 23:59:59 CLS Outpatient ANGEL RIDLEY UNARMED SECURITY OFFICER [facility] RAD Z12.31 SCREENING BREAST EXAM [id number] 05/02/2017 09:29:00 05/02/2017 23:59:59 CLS Outpatient WILFRIDO FISHER MD [facility] WOUNDCARE [id number] 10/07/2016 08:37:00 10/07/2016 23:59:59 CLS Outpatient JOSE ANGEL SAUER [facility] CARD CAD,HTN,SOB ON EXERTION [id number] 07/21/2016 13:47:00 07/21/2016 23:59:59 CLS Outpatient ANGEL RIDLEY UNARMED SECURITY OFFICER [facility] RAD SCREENING [id number] 07/21/2016 13:42:00 07/21/2016 23:59:59 CLS Outpatient JAYY JIANG APRN [facility] RAD JOVANY,OBESITY, ALLERGIC RHINITIS [id number] 07/07/2016 08:33:00 07/07/2016 23:59:59 CLS Outpatient JAYY JIANG APRN [facility] RAD PNEUMONI [id number] 06/23/2016 11:22:00 06/23/2016 23:59:59 CLS Outpatient JED SAINZ DO [facility] RT DYSPNEA,OBESITY [id number] 06/07/2016 08:34:00 06/07/2016 23:59:59 CLS Outpatient JED SAINZ DO [facility] RAD DYSPNEA,OBESITY [id number] 01/15/2016 19:26:00 01/16/2016 06:47:00 DIS Outpatient JAYY JIANG APRN [facility] SLEEP HYPERSOMNIA, SLEEP DISTURBANCE [id number] 11/24/2015 21:49:00 11/25/2015 07:05:00 DIS Outpatient JED SAINZ DO [facility] SLEEP JOVANY, [id number] 11/19/2015 12:06:00 11/19/2015 23:59:59 CLS Outpatient JED SAINZ DO [facility] RT DYSPNEA,CAD [id number] 07/08/2015 09:51:00 07/08/2015 12:45:00 DIS Outpatient DAVID SMYTH DO [facility] SDC SCREENING [id number] 07/01/2015 05:38:00 07/01/2015 23:59:59 CLS Outpatient DAVID SMYTH DO [facility] PREOP SCREENING [id number] 06/27/2015 08:41:00 06/27/2015 23:59:59 CLS Outpatient HELIO WILEY ELECTRONIC SPECIALIST [facility] RAD HX OF ABNORMAL MAMMO [id number] 03/19/2015 07:06:00 03/19/2015 23:59:59 CLS Outpatient JOSE ANGEL SAUER [facility] CARD CAD,DAMIAN,CP, HTN [id number] 03/17/2015 09:02:00 03/17/2015 23:59:59 CLS Outpatient JOSE ANGEL SAUER [facility] CARD CAD,DAMIAN,CP, HTN [id number] 12/23/2014 11:55:00 12/23/2014 23:59:59 CLS Outpatient TAYLOR KUHN APRN [facility] RAD FOLLOW UP [id number] 11/12/2014 15:07:00 11/12/2014 23:59:59 CLS Preadmit PAIGE BARAHONA MD [facility] REHAB [id number] 10/28/2014 10:25:00 10/28/2014 23:59:59 CLS Outpatient PAIGE BARAHONA MD [facility] RAD LEFT SHOULDER PAIN [id number] 06/26/2014 13:14:00 06/26/2014 23:59:59 CLS Outpatient TAYLOR KUHN APRN [facility] RAD ASYMMETRY LEFT BREAST [id number] 06/04/2014 08:46:00 06/04/2014 23:59:59 CLS Outpatient TAYLOR KUHN ELECTRONIC SPECIALIST [facility] RAD ROUTINE [id number] 05/12/2014 09:58:00 05/12/2014 13:21:00 DIS Emergency JABIER ORTIZ, CARISA Meneses [facility] ER R HAND PAIN [id number] 02/27/2013 10:15:00 02/27/2013 23:59:59 CLS Outpatient ABAD ORTIZ, BOOGIE Kirby [facility] RAD PAINFUL RT TOTAL KNEE REPLACEMENT [id number] 11/08/2012 06:32:00 11/08/2012 17:10:00 DIS Outpatient LISA PAIGE MD [facility] CATH SOB,ABN STRESS,HTN,HLP, DM,OBESITY [id number] 10/31/2012 11:20:00 10/31/2012 23:59:59 CLS Outpatient LISA PAIGE MD [facility] RAD CP,HTN,HLP [id number] 10/26/2012 09:43:00 10/26/2012 23:59:59 CLS Outpatient LISA PAIGE MD [facility] CARD CP,HTN,HLP [id number] 03/16/2012 08:42:00 Document Registration [id number] 10/14/2010 10:35:00 Document Registration [id number] 09/24/2010 09:46:00 Document Registration [id number] 03/19/2015 07:08:22 ACT Document Registration
== END 2018-02-19 21:14 | disposition home or self-care (01) ==
LOC: EDUNIT# 20:58 → ER 21:00
DX: R22.31 Localized swelling, mass and lump, right upper limb (principal); M54.5 Low back pain; J44.9 Chronic obstructive pulmonary disease, unspecified; I25.10 Atherosclerotic heart disease of native coronary artery without angina pectoris; I10 Essential (primary) hypertension; G40.909 Epilepsy, unspecified, not intractable, without status epilepticus; K21.9 Gastro-esophageal reflux disease without esophagitis; G47.30 Sleep apnea, unspecified; E11.9 Type 2 diabetes mellitus without complications; F32.9 Major depressive disorder, single episode, unspecified; D64.9 Anemia, unspecified; Z88.0 Allergy status to penicillin; Z87.440 Personal history of urinary (tract) infections; Z87.19 Personal history of other diseases of the digestive system; Z86.010 Personal history of colon polyps; Z88.8 Allergy status to other drugs, medicaments and biological substances; Z88.6 Allergy status to analgesic agent; Z79.51 Long term (current) use of inhaled steroids; Z79.82 Long term (current) use of aspirin; Z79.84 Long term (current) use of oral hypoglycemic drugs; Z87.891 Personal history of nicotine dependence; Z90.710 Acquired absence of both cervix and uterus; Z90.89 Acquired absence of other organs; Z87.01 Personal history of pneumonia (recurrent)
CPT/HCPCS: 99283

== ENCOUNTER 2018-03-09 14:00 | Outpatient (RCR) | payer MEDICARE, MEDICAID ==
[2018-01-10 13:00] VITALS: BP 118/58
[2018-01-10 14:00] VITALS: BP 130/80
[2018-01-17 13:00] VITALS: BP 122/60
[2018-01-17 14:00] VITALS: BP 123/60
[2018-01-19 13:00] VITALS: BP 140/60
[2018-01-19 13:42] VITALS: BP 138/70
[2018-01-24 12:25] VITALS: BP 150/60
[2018-01-24 13:45] VITALS: BP 140/60
[2018-01-26 12:32] VITALS: BP 102/50
[2018-01-31 13:00] VITALS: BP 120/60
[2018-01-31 13:23] VITALS: BP 115/60
[2018-02-02 12:57] VITALS: BP 150/60
[2018-02-02 13:55] VITALS: BP 140/60
[2018-02-07 13:00] VITALS: BP 110/50
[2018-02-07 14:00] VITALS: BP 108/50
[2018-02-09 11:30] VITALS: BP 160/60
[2018-02-09 11:56] VITALS: BP 160/60
[2018-02-16 13:00] VITALS: BP 140/60
[2018-02-16 13:40] VITALS: BP 130/50
[2018-02-21 13:00] VITALS: BP 130/70
[2018-02-21 14:00] VITALS: BP 130/70
[2018-02-28 13:00] VITALS: BP 140/60
[2018-02-28 13:47] VITALS: BP 120/60
[2018-03-02 13:00] VITALS: BP 120/60
[2018-03-02 14:00] VITALS: BP 120/60
[2018-03-07 12:55] VITALS: BP 132/49
[2018-03-07 13:00] VITALS: BP 127/51
[2018-03-07 13:55] VITALS: BP 150/60
[2018-03-09 13:05] VITALS: BP 170/47
[2018-03-09 13:54] VITALS: BP 120/60
[~2018-03-09 14:00] MED LIST changes: +SULF1TAB35 PO
[2018-03-14 13:00] VITALS: BP 130/50
[2018-03-14 14:00] VITALS: BP 130/60
== END 2018-03-12 | disposition home or self-care (01) ==
LOC: PULM 14:00
PROVIDERS: ATTEND Nurse Practitioner Family
DX: J98.4 Other disorders of lung (principal)
CPT/HCPCS: 99211

== ENCOUNTER 2018-03-14 10:38 | Outpatient (RCR) | payer MEDICARE, MEDICAID ==
[2018-03-14 10:57] LABS: BASOPHILS % (AUTO) 0 % (0-10); EOSINOPHILS # (AUTO) 0.2 10^3/uL (0.0-0.3); EOSINOPHILS % (AUTO) 1 % (0-10); HEMATOCRIT 34 % (35-52); LYMPHOCYTES # (AUTO) 3.3 X 10^3 (1.0-4.0); LYMPHOCYTES % (AUTO) 28 % (12-44); MEAN CORPUSCULAR HEMOGLOBIN 28 PG (25-34); MEAN CORPUSCULAR HGB CONC 32 G/DL (32-36); MEAN CORPUSCULAR VOLUME 88 FL (80-99); MEAN PLATELET VOLUME 10.1 FL (7.4-10.4); MONOCYTES # (AUTO) 0.8 X 10^3 (0.0-1.0); MONOCYTES % (AUTO) 7 % (0-12); NEUTROPHILS # (AUTO) 7.2 X 10^3 (1.8-7.8); NEUTROPHILS % (AUTO) 63 % (42-75); PLATELET COUNT 311 10^3/uL (130-400); RED CELL DISTRIBUTION WIDTH 13.9 % (10.0-14.5); WHITE BLOOD COUNT 11.5 10^3/uL (4.3-11.0)
[2018-03-14 11:21] LABS: ALBUMIN 4.2 GM/DL (3.2-4.5); BILIRUBIN,TOTAL 0.2 MG/DL (0.1-1.0); CALCIUM 9.5 MG/DL (8.5-10.1); CREATININE SERUM 1.13 MG/DL (0.60-1.30); POTASSIUM 4.6 MMOL/L (3.6-5.0); TOTAL PROTEIN 7.2 GM/DL (6.4-8.2)
== END 2018-03-19 | disposition home or self-care (01) ==
LOC: ONC 10:38
PROVIDERS: ATTEND Internal Medicine Hematology & Oncology
DX: D50.9 Iron deficiency anemia, unspecified (principal); I25.10 Atherosclerotic heart disease of native coronary artery without angina pectoris; I10 Essential (primary) hypertension; E11.9 Type 2 diabetes mellitus without complications; E78.5 Hyperlipidemia, unspecified; G47.33 Obstructive sleep apnea (adult) (pediatric); Z79.82 Long term (current) use of aspirin; Z79.84 Long term (current) use of oral hypoglycemic drugs; Z79.899 Other long term (current) drug therapy
CPT/HCPCS: 36415; 80053; 82728; 85025

== ENCOUNTER 2018-05-09 08:46 | Outpatient (RCR) | payer MEDICARE, MEDICAID ==
[2018-05-03 12:09] LABS: ABSOLUTE RETIC # 81 10e9/L (24-90); BASOPHILS % (AUTO) 0 % (0-10); EOSINOPHILS # (AUTO) 0.1 10^3/uL (0.0-0.3); EOSINOPHILS % (AUTO) 1 % (0-10); HEMATOCRIT 38 % (35-52); HEMOGLOBIN 12.3 G/DL (11.5-16.0); LYMPHOCYTES # (AUTO) 1.9 X 10^3 (1.0-4.0); LYMPHOCYTES % (AUTO) 21 % (12-44); MEAN CORPUSCULAR HEMOGLOBIN 29 PG (25-34); MEAN CORPUSCULAR HGB CONC 33 G/DL (32-36); MEAN CORPUSCULAR VOLUME 90 FL (80-99); MEAN PLATELET VOLUME 10.1 FL (7.4-10.4); MONOCYTES # (AUTO) 0.5 X 10^3 (0.0-1.0); MONOCYTES % (AUTO) 6 % (0-12); NEUTROPHILS # (AUTO) 6.5 X 10^3 (1.8-7.8); NEUTROPHILS % (AUTO) 73 % (42-75); PLATELET COUNT 265 10^3/uL (130-400); RED BLOOD COUNT 4.22 10^6/uL (4.35-5.85); RED CELL DISTRIBUTION WIDTH 14.5 % (10.0-14.5); RETICULOCYTE % 1.93 % (0.50-2.40)
[2018-05-03 12:30] LABS: ALBUMIN 4.3 GM/DL (3.2-4.5); BILIRUBIN,TOTAL 0.5 MG/DL (0.1-1.0); CALCIUM 9.9 MG/DL (8.5-10.1); CREATININE SERUM 1.26 MG/DL (0.60-1.30); POTASSIUM 4.2 MMOL/L (3.6-5.0); TOTAL PROTEIN 7.2 GM/DL (6.4-8.2)
[~2018-05-09 08:46] MED LIST changes: +FERRIC CARBOXYMALTOSE (CANCER) 750 MG in NS (IVPB) CANCER CENTER 250 ML IV SCH
== END 2018-06-19 | disposition home or self-care (01) ==
LOC: ONC 08:46
PROVIDERS: ATTEND Internal Medicine Hematology & Oncology
DX: D50.9 Iron deficiency anemia, unspecified (principal); I25.10 Atherosclerotic heart disease of native coronary artery without angina pectoris; I10 Essential (primary) hypertension; E11.9 Type 2 diabetes mellitus without complications; E78.5 Hyperlipidemia, unspecified; G47.33 Obstructive sleep apnea (adult) (pediatric); Z79.82 Long term (current) use of aspirin; Z79.84 Long term (current) use of oral hypoglycemic drugs; Z79.899 Other long term (current) drug therapy
CPT/HCPCS: 80053; 82728; 85025; 85045; 96365; 99213

== ENCOUNTER 2018-06-15 13:00 | Outpatient (RCR) | payer MEDICARE, MEDICAID ==
[2018-03-21 13:00] VITALS: BP 126/60
[2018-03-21 14:00] VITALS: BP 122/66
[2018-03-23 13:00] VITALS: BP 134/80
[2018-03-23 14:00] VITALS: BP 122/58
[2018-03-30 13:00] VITALS: BP 138/72
[2018-03-30 14:00] VITALS: BP 150/70
[2018-04-11 13:00] VITALS: BP 122/70
[2018-04-11 15:00] VITALS: BP 115/80
[2018-04-13 13:00] VITALS: BP 147/60
[2018-04-13 13:57] VITALS: BP 130/70
[2018-04-18 13:00] VITALS: BP 130/60
[2018-04-18 14:00] VITALS: BP 135/60
[2018-04-25 13:00] VITALS: BP 140/60
[2018-04-25 14:00] VITALS: BP 130/60
[2018-04-27 12:43] VITALS: BP 140/70
[2018-04-27 13:50] VITALS: BP 120/78
[2018-05-04 13:00] VITALS: BP 150/60
[2018-05-04 14:00] VITALS: BP 142/60
[2018-05-09 11:15] VITALS: BP 150/60
[2018-06-06 12:30] VITALS: BP 120/60
[2018-06-06 13:05] VITALS: BP 160/60
[2018-06-08 12:25] VITALS: BP 130/60
[2018-06-08 13:20] VITALS: BP 121/67
[2018-06-15 12:50] VITALS: BP 122/60
[2018-06-15 13:46] VITALS: BP 130/60
[2018-06-22 12:45] VITALS: BP 120/72
[2018-06-22 13:25] VITALS: BP 120/70
== END 2018-06-19 | disposition home or self-care (01) ==
LOC: PULM 13:00
PROVIDERS: ATTEND Nurse Practitioner Family
DX: J98.4 Other disorders of lung (principal)

== ENCOUNTER 2018-07-04 12:50 | Outpatient (RCR) | payer MEDICARE, MEDICAID ==
[2018-06-27 12:30] VITALS: BP 120/70
[2018-06-27 13:51] VITALS: BP 118/60
[~2018-07-04 12:50] MED LIST changes: -AMLO10TA6 PO; +AMLO10TA7 PO; -FERRIC CARBOXYMALTOSE (CANCER) 750 MG in NS (IVPB) CANCER CENTER 250 ML IV SCH; +LOSA50TA63 PO; -LOSA50TA7 PO
[2018-07-04 13:00] VITALS: BP 131/60
[2018-07-04 13:41] VITALS: BP 118/62
== END 2018-10-02 | disposition home or self-care (01) ==
LOC: PULM 12:50
PROVIDERS: ATTEND Nurse Practitioner Family
DX: J98.4 Other disorders of lung (principal)

== ENCOUNTER → 2018-09-19 | Outpatient (CLI) | payer MEDICARE, MEDICAID ==
--- NOTE | 2018-09-19 15:10 | Diagnostic Imaging Report ---
INDICATION: Postmenopausal screening. COMPARISON: 05/31/2008 FINDINGS: AP Spine L2-L4: [BMD (g/cm2): 1.408] [T-Score: 1.7] [Z-Score: 2.2] [BMD Previous: 1.456] [BMD % Change: -3.3] LT Hip Neck: [BMD (g/cm2): 0.951] [T-Score: -0.6] [Z-Score: 0.1] LT Hip Total: [BMD (g/cm2):1.017] [T-Score:0.1] [Z-Score: 0.5] [BMD Previous: 1.059] [BMD % Change: -4.0] RT Hip Neck: [BMD (g/cm2):0.962] [T-Score:-0.5] [Z-Score:0.2] RT Hip Total: [BMD (g/cm2):1.071] [T-score:0.5] [Z-Score:0.9] [BMD Previous:1.084] [BMD % Change:-1.2] *Indicates significant change from prior examination based on 95% confidence level. World Health Organization criteria for BMD interpretation classify patients as Normal (T-score at or above -1.0), Osteopenic (T-score between -1.0 and -2.5) or Osteoporotic (T-score at or below -2.5). LIMITATIONS AND MODIFICATION: None. FRACTURE RISK (FRAX SCORE): The ten year probability of (%): Major Osteoporotic Fracture: [N/A] Hip Fracture: [N/A] IMPRESSION: 1. Normal Bone mineral density. 2. No Significant change in bone mineral density since prior examination. 3. See below National Osteoporosis Foundation guidelines on when to potentially initiate pharmacologic therapy. Based on the National Osteoporosis Foundation Guidelines, pharmacologic treatment should be initiated in any of the following, unless clinical conditions suggest otherwise: * Any patient with prior fragility fracture of the hip or vertebrae. A spine fracture indicates 5X risk for subsequent spine fracture and 2X risk for subsequent hip fracture. * Osteoporosis (T-score <-2.5). * Postmenopausal women and men age 50 and older with low bone mass/osteopenia (T-score between -1.0 and -2.5) by DXA and 10-year major osteoporotic fracture greater than 20% or a 10-year probability of hip fracture greater than 3%. These fracture risks are supplied above in the FRAX score, if applicable. * Clinician judgement and/or patient preferences may indicate treatment for people with 10-year fracture probabilities above or below these levels. Dictated by: Dictated on workstation # [id number]
--- NOTE | 2018-09-19 16:38 | Diagnostic Imaging Report ---
INDICATION: Routine screening. COMPARISON: 07/22/2017 and 07/21/2016. TECHNIQUE: 2D and 3D bilateral screening mammography was performed with CAD. FINDINGS: Both breasts remain heterogeneously dense, limiting the sensitivity of mammography. Benign parenchymal and vascular calcifications are again noted bilaterally. No mass or malignant appearing microcalcifications are seen. The axillae are unremarkable. IMPRESSION: No mammographic features suspicious for malignancy are identified. ACR BI-RADS Category 2: Benign findings. Result letter will be mailed to the patient. Note: At least 10% of breast cancer is not imaged by mammography. Dictated by: Dictated on workstation # [id number]
== END ==
LOC: RAD 08:56
PROVIDERS: ATTEND Nurse Practitioner Primary Care
DX: Z12.31 Encounter for screening mammogram for malignant neoplasm of breast (principal); Z13.820 Encounter for screening for osteoporosis; N95.9 Unspecified menopausal and perimenopausal disorder; Z78.0 Asymptomatic menopausal state
CPT/HCPCS: 77067; 77080

== ENCOUNTER 2018-11-06 09:53 | Outpatient (RCR) | payer MEDICARE, MEDICAID ==
[2018-10-30 13:08] LABS: BASOPHILS % (AUTO) 0 % (0-10); EOSINOPHILS # (AUTO) 0.1 10^3/uL (0.0-0.3); EOSINOPHILS % (AUTO) 1 % (0-10); HEMATOCRIT 36 % (35-52); HEMOGLOBIN 11.8 G/DL (11.5-16.0); LYMPHOCYTES # (AUTO) 2.9 X 10^3 (1.0-4.0); LYMPHOCYTES % (AUTO) 22 % (12-44); MEAN CORPUSCULAR HEMOGLOBIN 29 PG (25-34); MEAN CORPUSCULAR HGB CONC 33 G/DL (32-36); MEAN CORPUSCULAR VOLUME 86 FL (80-99); MEAN PLATELET VOLUME 10.8 FL (7.4-10.4); MONOCYTES % (AUTO) 7 % (0-12); NEUTROPHILS # (AUTO) 9.2 X 10^3 (1.8-7.8); NEUTROPHILS % (AUTO) 70 % (42-75); PLATELET COUNT 273 10^3/uL (130-400); RED CELL DISTRIBUTION WIDTH 13.8 % (10.0-14.5); WHITE BLOOD COUNT 13.2 10^3/uL (4.3-11.0)
[2018-10-30 13:31] LABS: BILIRUBIN,TOTAL 0.3 MG/DL (0.1-1.0); CALCIUM 9.5 MG/DL (8.5-10.1); CREATININE SERUM 1.41 MG/DL (0.60-1.30); POTASSIUM 3.8 MMOL/L (3.6-5.0); TOTAL PROTEIN 6.9 GM/DL (6.4-8.2)
== END 2019-01-26 12:22 | disposition home or self-care (01) ==
LOC: ONC 09:53
PROVIDERS: ATTEND Internal Medicine Hematology & Oncology
DX: D50.9 Iron deficiency anemia, unspecified (principal); I25.10 Atherosclerotic heart disease of native coronary artery without angina pectoris; I10 Essential (primary) hypertension; E11.9 Type 2 diabetes mellitus without complications; E78.5 Hyperlipidemia, unspecified; G47.33 Obstructive sleep apnea (adult) (pediatric); Z79.82 Long term (current) use of aspirin; Z79.84 Long term (current) use of oral hypoglycemic drugs; Z79.899 Other long term (current) drug therapy
CPT/HCPCS: 36415; 80053; 82728; 85025; 99213

== ENCOUNTER → 2018-11-29 | Outpatient (CLI) | payer MEDICARE, MEDICAID ==
--- NOTE | 2018-11-29 12:22 | Diagnostic Imaging Report ---
PROCEDURE: US Renal Bilateral. TECHNIQUE: Multiple real-time grayscale images were obtained over the kidneys in various projections bilaterally. INDICATION: Renal insufficiency. FINDINGS: There are no prior renal ultrasound examinations available for comparison. Both kidneys are identified. The right kidney measures 10.7 x 3.7 x 6.7 cm while the left kidney is estimated to be 10.5 x 5.0 x 4.1 cm. There is no evidence for a solid renal mass or for hydronephrosis of either kidney. The renal cortices are normal in thickness and echogenicity. The bladder was imaged during the course of the exam. The bladder is only partially filled and consequently not well evaluated. There is no obvious bladder abnormality evident. Only the left ureteral jet is noted. IMPRESSION: 1. There is no evidence for a solid renal mass or for an acute abnormality of either kidney. 2. There is no obvious bladder abnormality evident. Only the left ureteral jet is noted, however. Dictated by: Dictated on workstation # [id number]
== END ==
LOC: RAD 10:25
PROVIDERS: ATTEND Nurse Practitioner Community Health
DX: N28.9 Disorder of kidney and ureter, unspecified (principal); M54.6 Pain in thoracic spine
CPT/HCPCS: 76770

== ENCOUNTER → 2018-11-30 | Outpatient (CLI) | payer MEDICARE, MEDICAID ==
--- NOTE | 2018-11-30 17:50 | Diagnostic Imaging Report ---
PROCEDURE: CT abdomen and pelvis with and without contrast. TECHNIQUE: Precontrast acquisitions were acquired through the abdomen and pelvis. Multiple contiguous axial images were obtained through the abdomen and pelvis after the administration of intravenous contrast. Auto Exposure Controls were utilized during the CT exam to meet ALARA standards for radiation dose reduction. INDICATION: Severe back pain The previous CT abdomen/pelvis exam of 11/06/2017 noted cholelithiasis but failed to show any sign of acute cholecystitis. In the interval since the prior study, the patient has undergone a cholecystectomy. The liver is enlarged measuring 23.5 CM in length. The liver is also of lower density than usually seen. This does suggest fatty metamorphosis.. The spleen, pancreas, adrenals, aorta and inferior vena cava show no sign of acute abnormality. The 2.2 CM nodule associated with the right adrenal gland seen on the prior CTA chest exam of 06/07/2016 is again evident and no different. The 1.3 CM nodule associated with the left adrenal gland seen on the prior study is also unchanged. The stability of these findings over a greater than two-year period would suggest that they are most likely benign. There is no solid renal mass or hydronephrosis of either kidney. There is a small cyst along the lateral aspect of the right kidney. The seems similar to the prior study. The stomach is not well-distended and consequently difficult to assess. There is no pelvic mass or free fluid collection noted. The uterus is surgically absent. The bladder is not well-distended and consequently difficult to assess. There may be a small droplet of gas within the bladder. This may be related to recent instrumentation. There is diverticulosis of the sigmoid and descending colon but there is no sign of acute diverticulitis. There is no pelvic mass or free fluid collection evident. The appendix was not well-visualized but there are no indirect signs of acute appendicitis. The bone windows show no evidence for a fracture or for a destructive lesion. The images through lung bases failed to show any sign of an acute abnormality. As noted on the prior exam, there is a pericardial effusion. The effusion measures 1.2 CM in maximum depth as opposed to 1.0 CM on the prior exam. IMPRESSION: 1. There is no acute abnormality of the abdomen or pelvis. 2. In the interval since the previous study, the patient has undergone a cholecystectomy. 3. The adrenal nodules seen previously appear stable and are most likely benign. 4. There is diverticulosis of the sigmoid and descending colon but there is no sign of acute diverticulitis. 5. The small pericardial effusion evident on the prior exam is slightly larger on this study. Dictated by: Dictated on workstation # [id number]
== END ==
LOC: RAD 12:58
PROVIDERS: ATTEND Nurse Practitioner Community Health
DX: K57.30 Diverticulosis of large intestine without perforation or abscess without bleeding (principal); I31.3 Pericardial effusion (noninflammatory); E27.8 Other specified disorders of adrenal gland; R58 Hemorrhage, not elsewhere classified; Z90.710 Acquired absence of both cervix and uterus; Z90.49 Acquired absence of other specified parts of digestive tract
CPT/HCPCS: 74178

== ENCOUNTER 2019-02-13 08:04 | Outpatient (RCR) | payer MEDICARE, MEDICAID, OTHER ==
[2019-01-30 08:51] LABS: BASOPHILS # (AUTO) 0.1 10^3/uL (0.0-0.1); BASOPHILS % (AUTO) 0 % (0-10); EOSINOPHILS # (AUTO) 0.1 10^3/uL (0.0-0.3); EOSINOPHILS % (AUTO) 1 % (0-10); HEMATOCRIT 36 % (35-52); HEMOGLOBIN 11.5 G/DL (11.5-16.0); LYMPHOCYTES # (AUTO) 4.8 X 10^3 (1.0-4.0); LYMPHOCYTES % (AUTO) 41 % (12-44); MEAN CORPUSCULAR HEMOGLOBIN 27 PG (25-34); MEAN CORPUSCULAR HGB CONC 32 G/DL (32-36); MEAN CORPUSCULAR VOLUME 85 FL (80-99); MEAN PLATELET VOLUME 10.3 FL (7.4-10.4); MONOCYTES # (AUTO) 0.7 X 10^3 (0.0-1.0); MONOCYTES % (AUTO) 6 % (0-12); NEUTROPHILS # (AUTO) 6.1 X 10^3 (1.8-7.8); NEUTROPHILS % (AUTO) 52 % (42-75); PLATELET COUNT 283 10^3/uL (130-400); WHITE BLOOD COUNT 11.8 10^3/uL (4.3-11.0)
[2019-01-30 09:15] LABS: ALBUMIN 4.2 GM/DL (3.2-4.5); BILIRUBIN,TOTAL 0.3 MG/DL (0.1-1.0); CALCIUM 10.3 MG/DL (8.5-10.1); CREATININE SERUM 1.29 MG/DL (0.60-1.30); POTASSIUM 4.3 MMOL/L (3.6-5.0); TOTAL PROTEIN 7.4 GM/DL (6.4-8.2)
[~2019-02-13 08:04] MED LIST changes: +FERRIC CARBOXYMALTOSE (CANCER) 750 MG in NS (IVPB) CANCER CENTER 250 ML IV SCH
[2019-03-02] MEDS ORDERED: AMLO5TAB9 PO (13:46)
[2019-03-02] MEDS ORDERED: POTA10CA43 PO (13:54)
[2019-03-02] MEDS ORDERED: LOSA1TAB23 PO (13:54)
[2019-03-02] MEDS ORDERED: PANT20TA3 PO (13:54)
[2019-03-02] MEDS ORDERED: PSEU30TA35 PO (13:54)
[2019-03-02] MEDS ORDERED: FURO40TA4 PO (13:54)
[2019-03-21] MEDS ORDERED: CHOL10007 PO (08:43)
[2019-03-21] MEDS ORDERED: METF500T8 PO (10:20)
== END 2019-04-30 | disposition home or self-care (01) ==
LOC: ONC 08:04
PROVIDERS: ATTEND Internal Medicine Hematology & Oncology
DX: D50.9 Iron deficiency anemia, unspecified (principal); I25.10 Atherosclerotic heart disease of native coronary artery without angina pectoris; I10 Essential (primary) hypertension; E11.9 Type 2 diabetes mellitus without complications; E78.5 Hyperlipidemia, unspecified; G47.33 Obstructive sleep apnea (adult) (pediatric); Z79.82 Long term (current) use of aspirin; Z79.84 Long term (current) use of oral hypoglycemic drugs; Z79.899 Other long term (current) drug therapy
CPT/HCPCS: 36415; 80053; 82728; 85025; 96365

== ENCOUNTER → 2019-02-27 | Outpatient (CLI) | payer MEDICARE, MEDICAID ==
[~2019-02-27] MED LIST changes: +AMLO5TAB9 PO; -FERRIC CARBOXYMALTOSE (CANCER) 750 MG in NS (IVPB) CANCER CENTER 250 ML IV SCH; +FURO40TA4 PO; +LOSA1TAB23 PO; +PANT20TA3 PO; +PSEU30TA35 PO
--- NOTE | 2019-02-27 14:23 | Diagnostic Imaging Report ---
INDICATION: RESTRIVE LUNG DISEASE,ALLERGIC RHINITIS,SOB ON EXE,HYPOXEMIA, OB SLEEP COMPARISON: 11/08/2017. FINDINGS: Frontal and lateral views of the chest demonstrate normal heart size and pulmonary vascularity. The lungs are clear. There are no signs of infiltrate, pleural effusions or pneumothoraces. The visualized osseous structures show no acute abnormalities. IMPRESSION: 1. No acute process. No signs of infiltrates, effusions or pneumothoraces. Dictated by: Dictated on workstation # [id number]
== END ==
LOC: RAD 13:49
PROVIDERS: ATTEND Nurse Practitioner Family
DX: J30.9 Allergic rhinitis, unspecified (principal); J98.4 Other disorders of lung; G47.33 Obstructive sleep apnea (adult) (pediatric); G47.36 Sleep related hypoventilation in conditions classified elsewhere
CPT/HCPCS: 71046

== ENCOUNTER 2019-03-02 15:30 | Outpatient (CLI) | payer MEDICARE, MEDICAID ==
[~2019-03-02] VITALS: Ht 175.3 cm; Wt 111.6 kg
== END 2019-03-02 15:41 | disposition home or self-care (01) ==
LOC: PREOP 15:30
PROVIDERS: ATTEND Surgery
DX: Z01.818 Encounter for other preprocedural examination (principal)

== ENCOUNTER → 2019-03-07 | Outpatient (CLI) | payer MEDICARE, MEDICAID ==
[~2019-03-07] VITALS: Ht 175 cm; Wt 112.0 kg
[~2019-03-07] MED LIST changes: +CATHETER FLUSH 10 ML SYR IV PRN
[2019-03-07 09:25] VITALS: BP 134/73
[2019-03-07 09:28] VITALS: BP 147/89
--- NOTE | 2019-03-07 17:22 | STRESS TEST ---
DATE OF SERVICE: 03/07/2019 EXERCISE MYOVIEW STRESS TEST REPORT REFERRING PHYSICIAN: [facility]. Baseline heart rate is 105. Baseline blood pressure 134/73. Baseline EKG is sinus rhythm with no ischemic changes. In summary, the patient was injected with 10.69 mCi of technetium-99 Myoview and the resting images were obtained. Then, the patient started exercising with a baseline heart rate, blood pressure and EKG mentioned above. The patient was able to exercise for a total of 3 minutes and 22 seconds on standard Reginald protocol. With peak exercise level, EKG was showing nondiagnostic changes. Blood pressure was 134/73. The patient was injected with 28.9 mCi of technetium-99 Myoview. During recovery, heart rate and blood pressure returned to baseline. EKG returned to baseline. The resting and stress images were reviewed and compared in the short axis, horizontal long axis, and vertical long axis views. Review of the images showed breast attenuation with reversible ischemia involving the whole anterior wall and anterolateral wall. SSS is 9, SDS 5, TID value 1.02. On the gated images, the left ventricle appeared to be normal size with normal contractility. Calculated ejection fraction 59%. IN CONCLUSION: 1. Poor exercise tolerance, a total of 3 minutes 22 seconds on standard Reginald protocol, a total of 5 METS achieving 92% of maximum expected heart rate. 2. Appropriate heart rate and blood pressure response to exercise, returned to baseline during recovery. 3. Nondiagnostic EKG changes with exercise returned to baseline during recovery. 4. Breast attenuation with reversible ischemia involving the whole anterior wall and anterolateral wall. 5. Normal left ventricular size with normal contractility. Calculated ejection fraction 59%. Job ID: [id number] DocumentID: [id number] Dictated Date: 03/07/2019 13:47:41 Lead Scientist Date: 03/07/2019 17:22:09 Dictated By: LISA PAIGE MD
== END ==
LOC: CARD 07:05
PROVIDERS: ATTEND Internal Medicine Cardiovascular Disease
DX: I25.10 Atherosclerotic heart disease of native coronary artery without angina pectoris (principal); I65.29 Occlusion and stenosis of unspecified carotid artery; I10 Essential (primary) hypertension; E78.5 Hyperlipidemia, unspecified
CPT/HCPCS: 78452; 93017

== ENCOUNTER 2019-03-21 07:43 | Day surgery (SDC) | payer MEDICARE, MEDICAID ==
[2019-03-21] VITALS (7 sets, daily range): BP systolic 107–147; BP diastolic 70–103
[~2019-03-21] VITALS: Ht 176.3 cm; Wt 111.8 kg
[~2019-03-21 07:43] MED LIST changes: -CATHETER FLUSH 10 ML SYR IV PRN
[2019-03-21] MEDS ORDERED: NS IV 1000 ML 1,000 ML IV SCH ×2 (07:47→10:18)
[2019-03-21] MEDS ORDERED: NS IV 1000 ML 1,000 ML ONE (07:53)
[2019-03-21] MEDS ORDERED: LIDOCAINE 1% INJ 20 ML 20 ML VIAL ONE (07:53)
[2019-03-21] MEDS ORDERED: HEParin (CATH LAB) 2,000 ML IV ONE (07:53)
[2019-03-21 08:21] LABS: HEMOGLOBIN 11.9 G/DL (11.5-16.0); MEAN PLATELET VOLUME 10.3 FL (7.4-10.4); RED CELL DISTRIBUTION WIDTH 15.8 % (10.0-14.5); WHITE BLOOD COUNT 10.4 10^3/uL (4.3-11.0)
[2019-03-21 08:36] LABS: INR 0.9 (0.8-1.4); PROTHROMBIN TIME PATIENT 12.5 SEC (12.2-14.7)
[2019-03-21 08:38] LABS: ALBUMIN 4.1 GM/DL (3.2-4.5); BILIRUBIN,TOTAL 0.3 MG/DL (0.1-1.0); CALCIUM 9.5 MG/DL (8.5-10.1); CREATININE SERUM 1.16 MG/DL (0.60-1.30); POTASSIUM 4.1 MMOL/L (3.6-5.0); TOTAL PROTEIN 7.3 GM/DL (6.4-8.2)
[2019-03-21] MEDS ORDERED: CHOL10007 PO (08:43)
--- NOTE | 2019-03-21 09:04 | Diagnostic Imaging Report ---
Patient History: ABN STRESS HTN HLP DM. Technique: Single frontal view of the chest Comparison: 02/27/2019 FINDINGS: The lung volumes are normal. No focal consolidation is seen. No large pleural effusion or pneumothorax is seen. The cardiomediastinal silhouette is enlarged, similar to the prior exam. No acute osseous abnormality is seen. IMPRESSION: 1. Cardiomegaly. No focal consolidation or mass. Dictated by: Dictated on workstation # [id number]
--- NOTE | 2019-03-21 09:05 | NUR ---
SPOKE WITH PT (SHE BROUGHT IN HER BOTTLES) WELL GOING OVER THE EXT MED HISTORY TO COMPLETE THE MED REC. ALL MEDICATIONS SHE BROUGHT IN WERE LISTED ON THE EXT MED HISTORY AND ALL HAD GOOD DATES AND DIRECTIONS MATCHED HOW THE PT IS TAKING. OTC MEDS: ASPIRIN 81M DAILY VITAMIN D: 1 DAILY
[2019-03-21] MEDS ORDERED: fentaNYL INJECTION 100 MCG/2 ML AMP ONE (09:44)
[2019-03-21] MEDS ORDERED: MIDAZOLAM 5 MG/5 ML (VERSED) VIAL ONE (09:44)
[2019-03-21] MEDS ORDERED: VERAPAMIL 5 MG/2 ML (CALAN) VIAL IV ONE (09:44)
[2019-03-21] MEDS ORDERED: NITRO DRIP 25000 MCG/D5W 250 ML IV ONE (09:45)
[2019-03-21] MEDS ORDERED: HEParin 1000 UNIT/ML (10ML VIAL) FOR BOLUS ONE (09:45)
--- NOTE | 2019-03-21 09:47 | Cardiac Procedure Note-CS/ASA ---
Pre-Procedure Note Pre-Op Procedure Note H&P Reviewed The H&P was reviewed, patient examined and no changes noted. Date H&P Reviewed: Mar 21, 2019 Time H&P Reviewed: 09:46 Conscious Sedation Pre-Proced Time 09:46 ASA Score 3 For ASA 3 and 4: Consider anesthesia and medical clearance. Also, for patients with a history of failed moderate sedation consider anesthesia. Airway Lungs Heart ASA score ASA 1: a normal healthy patient ASA 2: a patient with a mild systemic disease (mid diabetes, controlled hypertension, obesity x ASA 3: a patient with a severe systemic disease that limits activity (angina, COPD, prior Myocardial infarction) ASA 4: a patient with an incapacitating disease that is a constant threat to life (CHF, renal failure) ASA 5: a moribund patient not expected to survive 24 hrs. (ruptured aneurysm) ASA 6: a declared brain- patient whose organs are being harvested. For emergent operations, add the letter E after the classification Mallampati Classification Grade 3 Sedation Plan Analgesia, Amnesia, Plan communicated to team members, Discussed options with patient/fam, Discussed risks with patient/fam The patient is an appropriate candidate to undergo the planned procedure, sedation, and anesthesia. The patient immediately re-assessed prior to indication. LISA PAIGE MD Mar 21, 2019 09:47
[2019-03-21] MEDS ORDERED: METF500T8 PO (10:20)
--- NOTE | 2019-03-21 10:21 | Discharge Inst-Post CATH ---
Discharge Inst-CATH/EP Problems Reviewed?: Yes Post Cardiac Cath/EP D/C Inst Follow Up/Plan Holter metformin for [address] Young's office in 2-4 weeks <b>CARDIAC CATH/EP PROCEDURE DISCHARGE INSTRUCTIONS</b> ACTIVITY * Go Home directly and rest. * Limit activity of the leg (or wrist if it was used) for 7 days including aerobics, swimming, jogging, bicycling, etc. * Restrict stair-climbing for 7 days if possible, if not, climb up with your non-cath leg, then bring together on the same step. * Avoid lifting, pushing, pulling or excessive movement of the affected extremity for 7 days. * Customary sexual activity may be resumed after 2 days-use caution not to use a position that strains or causes pain to the affected extremity. * No driving for 24 hours. * NO SMOKING. * Avoid straining for bowel movements for 7 days. * Gentle walking on level ground is allowed. * Returning to work will depend on the type of procedure and the results. Your doctor will discuss this with you. CALL YOUR DOCTOR FOR ANY OF THE FOLLOWING: *If bleeding from the puncture site occurs- Apply gentle pressure to site with clean cloth and call your doctor or EMS. * If a knot or lump forms under the skin, increases in size, or causes pain. * If bruising appears to be worsening or moving further down your leg instead of disappearing. * Temperature above 101 F. CARE OF YOUR GROIN INCISION; * Bruising or purple discoloration of the skin near the puncture site is common. * You may shower only, no bathtub bathing for 5 days. Be careful to avoid slipping as your leg may feel stiff. * If a closure device was used on your femoral artery, please see the attached guide regarding care of the device and your leg. * Leave dressing on FOR 24 hours. CARE OF YOUR WRIST INCISION; * Bruising or purple discoloration of the skin near the puncture site is common. * You may shower. * DO NOT submerge wrist. * Leave dressing on FOR 24 hours. LISA YOUNG MD Mar 21, 2019 10:21
--- NOTE | 2019-03-21 10:28 | Cardiac Cath Report ---
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 The patient signed the consent and then she was placed on the cardiac catheterization laboratory. Groin was prepped SL fashion local anesthesia was used. Sheath placed in the right radial artery, Drumright catheter was used, advanced with difficulty through the arch to the left ventricular cavity, pressure was measured, pullback LV to aorta was done, advanced to the right then left coronary system and angiogram was done then I pulled it back to the aortic arch and angiogram on multiple injection was done. At the end of the procedure the sheath was removed. vascular band was used FINDINGS: Hemodynamics LV 109/7, end-diastolic pressure of 7 Aorta 106/63 mean of 73 ANATOMY: Left Main is free of obstructive disease Left Anterior Descending has 40-50 percent proximal stenosis nonobstructive disease Left Circumflex has mild disease nonobstructive disease Right Coronory Artery has mild disease nonobstructive disease LV Gram was not done, pressure was measured Aorta evaluation done with aortic arthrogram which showed normal aortic arch, no dissection or aneurysm, origin of the right innominate, left carotid and left subclavian arteries were normal CONCLUSION: 1. 40-50 percent proximal LAD stenosis nonobstructive disease 2. Otherwise mild coronary artery disease nonobstructive disease 3. Normal left ventricular end-diastolic pressure 4. Normal aortic arch and great vessels of the neck DISCUSSION AND RECOMMENDATION: continue with medical therapy no intervention is needed Anesthesia Type: Conscious Sedation Estimated blood loss (mL): 10 ml Contrast Amount: 75 ml Total Radiation Dose: 589 mGy Post-Procedure Diagnosis Post-operative diagnosis: Chest pain Coronary artery disease Hypertension Hyperlipidemia LISA PAIGE MD Mar 21, 2019 10:28
[2019-03-21] MEDS ORDERED: FLU QUADRIvalent (5+ YOA) 2019-2020 (AFLURIA) 0.5 ML IM ONE (12:30)
== END 2019-03-21 12:55 | disposition home or self-care (01) ==
LOC: CATH 07:43 → SDC 10:39 → CATH 12:55
PROVIDERS: ATTEND Internal Medicine Cardiovascular Disease
DX: I25.10 Atherosclerotic heart disease of native coronary artery without angina pectoris (principal); I10 Essential (primary) hypertension; I77.1 Stricture of artery; E11.9 Type 2 diabetes mellitus without complications; G47.33 Obstructive sleep apnea (adult) (pediatric); E78.5 Hyperlipidemia, unspecified; M19.90 Unspecified osteoarthritis, unspecified site; J30.9 Allergic rhinitis, unspecified; F41.8 Other specified anxiety disorders; D64.9 Anemia, unspecified; C53.9 Malignant neoplasm of cervix uteri, unspecified; E66.9 Obesity, unspecified; Z90.710 Acquired absence of both cervix and uterus; Z79.899 Other long term (current) drug therapy; Z88.8 Allergy status to other drugs, medicaments and biological substances; Z88.1 Allergy status to other antibiotic agents; Z79.82 Long term (current) use of aspirin; Z79.84 Long term (current) use of oral hypoglycemic drugs; Z90.89 Acquired absence of other organs; Z87.891 Personal history of nicotine dependence; Z90.49 Acquired absence of other specified parts of digestive tract; Z68.36 Body mass index [BMI] 36.0-36.9, adult; Z83.3 Family history of diabetes mellitus; Z82.49 Family history of ischemic heart disease and other diseases of the circulatory system; Z80.8 Family history of malignant neoplasm of other organs or systems
CPT/HCPCS: 36221; 36415; 36430; 71045; 80053; 80061; 85027; 85610; 85730; 87081; 90471; 93458

== ENCOUNTER → 2019-04-11 | Outpatient (CLI) | payer MEDICARE, MEDICAID ==
[~2019-04-11] MED LIST changes: +CHOL10007 PO; +RT-ALBUTEROL SULF 2.5 MG/3 ML PRE-MIX VIAL INH ONE
== END ==
LOC: RT 13:12
PROVIDERS: ATTEND Nurse Practitioner Family
DX: J98.4 Other disorders of lung (principal); J30.9 Allergic rhinitis, unspecified; G47.33 Obstructive sleep apnea (adult) (pediatric); R09.02 Hypoxemia
CPT/HCPCS: 94060; 94726; 94729

== ENCOUNTER 2019-07-31 09:30 | Outpatient (RCR) | payer MEDICARE, MEDICAID, OTHER ==
[2019-05-03 09:43] LABS: BASOPHILS # (AUTO) 0.1 10^3/uL (0.0-0.1); BASOPHILS % (AUTO) 0 % (0-10); EOSINOPHILS # (AUTO) 0.1 10^3/uL (0.0-0.3); EOSINOPHILS % (AUTO) 1 % (0-10); HEMATOCRIT 35 % (35-52); HEMOGLOBIN 11.5 G/DL (11.5-16.0); LYMPHOCYTES # (AUTO) 3.4 X 10^3 (1.0-4.0); LYMPHOCYTES % (AUTO) 30 % (12-44); MEAN CORPUSCULAR HEMOGLOBIN 29 PG (25-34); MEAN CORPUSCULAR HGB CONC 33 G/DL (32-36); MEAN CORPUSCULAR VOLUME 88 FL (80-99); MEAN PLATELET VOLUME 9.9 FL (7.4-10.4); MONOCYTES # (AUTO) 0.7 X 10^3 (0.0-1.0); MONOCYTES % (AUTO) 6 % (0-12); NEUTROPHILS # (AUTO) 7.1 X 10^3 (1.8-7.8); NEUTROPHILS % (AUTO) 62 % (42-75); PLATELET COUNT 275 10^3/uL (130-400); RED CELL DISTRIBUTION WIDTH 14.9 % (10.0-14.5); WHITE BLOOD COUNT 11.3 10^3/uL (4.3-11.0)
[2019-05-03 10:04] LABS: ALBUMIN 4.4 GM/DL (3.2-4.5); BILIRUBIN,TOTAL 0.4 MG/DL (0.1-1.0); CALCIUM 9.3 MG/DL (8.5-10.1); CREATININE SERUM 1.22 MG/DL (0.60-1.30); POTASSIUM 4.3 MMOL/L (3.6-5.0); TOTAL PROTEIN 7.1 GM/DL (6.4-8.2)
[2019-07-24 09:53] LABS: BASOPHILS # (AUTO) 0.1 10^3/uL (0.0-0.1); BASOPHILS % (AUTO) 0 % (0-10); EOSINOPHILS # (AUTO) 0.1 10^3/uL (0.0-0.3); EOSINOPHILS % (AUTO) 1 % (0-10); HEMATOCRIT 35 % (35-52); HEMOGLOBIN 11.4 G/DL (11.5-16.0); LYMPHOCYTES # (AUTO) 3.6 X 10^3 (1.0-4.0); LYMPHOCYTES % (AUTO) 32 % (12-44); MEAN CORPUSCULAR HEMOGLOBIN 28 PG (25-34); MEAN CORPUSCULAR HGB CONC 32 G/DL (32-36); MEAN CORPUSCULAR VOLUME 87 FL (80-99); MEAN PLATELET VOLUME 10.6 FL (7.4-10.4); MONOCYTES # (AUTO) 0.8 X 10^3 (0.0-1.0); MONOCYTES % (AUTO) 7 % (0-12); NEUTROPHILS # (AUTO) 6.7 X 10^3 (1.8-7.8); NEUTROPHILS % (AUTO) 60 % (42-75); PLATELET COUNT 287 10^3/uL (130-400); RED CELL DISTRIBUTION WIDTH 13.6 % (10.0-14.5); WHITE BLOOD COUNT 11.2 10^3/uL (4.3-11.0)
[2019-07-24 10:07] LABS: ALBUMIN 4.3 GM/DL (3.2-4.5); BILIRUBIN,TOTAL 0.3 MG/DL (0.1-1.0); CALCIUM 9.2 MG/DL (8.5-10.1); CREATININE SERUM 1.26 MG/DL (0.60-1.30); POTASSIUM 4.1 MMOL/L (3.6-5.0)
[~2019-07-31 09:30] MED LIST changes: +METF500T19 PO; -METF500T8 PO; -RT-ALBUTEROL SULF 2.5 MG/3 ML PRE-MIX VIAL INH ONE
== END 2019-08-01 | disposition home or self-care (01) ==
LOC: ONC 09:30
PROVIDERS: ATTEND Internal Medicine Hematology & Oncology
DX: D50.9 Iron deficiency anemia, unspecified (principal); I25.10 Atherosclerotic heart disease of native coronary artery without angina pectoris; I10 Essential (primary) hypertension; E11.9 Type 2 diabetes mellitus without complications; E78.5 Hyperlipidemia, unspecified; G47.33 Obstructive sleep apnea (adult) (pediatric); Z79.82 Long term (current) use of aspirin; Z79.84 Long term (current) use of oral hypoglycemic drugs; Z79.899 Other long term (current) drug therapy
CPT/HCPCS: 36415; 80053; 82728; 85025; 99213

== ENCOUNTER 2019-09-04 09:45 | Outpatient (RCR) | payer MEDICARE, MEDICAID, OTHER ==
[~2019-09-04 09:45] MED LIST changes: +FERRIC CARBOXYMALTOSE (CANCER) 750 MG in NS (IVPB) CANCER CENTER 250 ML IV SCH; -HYDR-3816 PO; +METF-865 PO; -METF500T19 PO; -MONT10TA24 PO; +MONT10TA26 PO
[2019-09-04 10:03] LABS: BASOPHILS # (AUTO) 0.1 10^3/uL (0.0-0.1); BASOPHILS % (AUTO) 1 % (0-10); EOSINOPHILS # (AUTO) 0.2 10^3/uL (0.0-0.3); EOSINOPHILS % (AUTO) 1 % (0-10); HEMATOCRIT 36 % (35-52); HEMOGLOBIN 11.7 G/DL (11.5-16.0); LYMPHOCYTES # (AUTO) 2.9 X 10^3 (1.0-4.0); LYMPHOCYTES % (AUTO) 27 % (12-44); MEAN CORPUSCULAR HEMOGLOBIN 29 PG (25-34); MEAN CORPUSCULAR HGB CONC 33 G/DL (32-36); MEAN CORPUSCULAR VOLUME 87 FL (80-99); MEAN PLATELET VOLUME 10.2 FL (7.4-10.4); MONOCYTES # (AUTO) 0.7 X 10^3 (0.0-1.0); MONOCYTES % (AUTO) 7 % (0-12); NEUTROPHILS # (AUTO) 7.1 X 10^3 (1.8-7.8); NEUTROPHILS % (AUTO) 65 % (42-75); PLATELET COUNT 264 10^3/uL (130-400); RED CELL DISTRIBUTION WIDTH 15.3 % (10.0-14.5)
== END 2019-11-12 | disposition home or self-care (01) ==
LOC: ONC 09:45
PROVIDERS: ATTEND Internal Medicine Hematology & Oncology
DX: D50.9 Iron deficiency anemia, unspecified (principal); I25.10 Atherosclerotic heart disease of native coronary artery without angina pectoris; I10 Essential (primary) hypertension; E11.9 Type 2 diabetes mellitus without complications; E78.5 Hyperlipidemia, unspecified; G47.33 Obstructive sleep apnea (adult) (pediatric); Z79.82 Long term (current) use of aspirin; Z79.84 Long term (current) use of oral hypoglycemic drugs; Z79.899 Other long term (current) drug therapy
CPT/HCPCS: 82728; 85025; 96365

== ENCOUNTER → 2019-11-26 | Outpatient (CLI) | payer MEDICARE, MEDICAID ==
[~2019-11-26] MED LIST changes: -FERRIC CARBOXYMALTOSE (CANCER) 750 MG in NS (IVPB) CANCER CENTER 250 ML IV SCH
--- NOTE | 2019-11-26 11:24 | Diagnostic Imaging Report ---
INDICATION: Routine screening. COMPARISON: 09/19/2018 and 07/22/2017. TECHNIQUE: 2D and 3D bilateral screening mammography was performed with CAD. FINDINGS: Both breasts remain heterogeneously dense, limiting the sensitivity of mammography. Benign parenchymal and vascular calcifications are identified bilaterally. No mass or malignant appearing microcalcifications are identified. The axillae are unremarkable. IMPRESSION: No mammographic features suspicious for malignancy are identified. ACR BI-RADS Category 2: Benign findings. Result letter will be mailed to the patient. Note: At least 10% of breast cancer is not imaged by mammography. Dictated by: Dictated on workstation # [id number]
== END ==
LOC: RAD 09:00
PROVIDERS: ATTEND Physician Assistant
DX: Z12.31 Encounter for screening mammogram for malignant neoplasm of breast (principal)
CPT/HCPCS: 77063; 77067

== ENCOUNTER → 2019-12-03 | Outpatient (CLI) | payer MEDICARE, MEDICAID | LOC: LABNPT 08:27 | PROVIDERS: ATTEND Nurse Practitioner Community Health | DX: Z20.828 Contact with and (suspected) exposure to other viral communicable diseases (principal) | CPT/HCPCS: 87635 ==

== ENCOUNTER 2019-12-06 21:00 | Outpatient (CLI) | payer MEDICARE, MEDICAID | END 2019-12-07 06:46 | disposition home or self-care (01) | LOC: SLEEP 21:00 | PROVIDERS: ATTEND Nurse Practitioner Family | DX: G47.33 Obstructive sleep apnea (adult) (pediatric) (principal); G47.34 Idiopathic sleep related nonobstructive alveolar hypoventilation; J98.4 Other disorders of lung; J30.9 Allergic rhinitis, unspecified; R09.02 Hypoxemia | CPT/HCPCS: 95811 ==

== ENCOUNTER 2020-03-18 10:20 | Outpatient (RCR) | payer MEDICARE, MEDICAID, OTHER ==
[2020-02-05 13:12] LABS: BASOPHILS % (AUTO) 0 % (0-10); EOSINOPHILS # (AUTO) 0.1 10^3/uL (0.0-0.3); EOSINOPHILS % (AUTO) 1 % (0-10); HEMATOCRIT 35 % (35-52); HEMOGLOBIN 11.3 G/DL (11.5-16.0); LYMPHOCYTES # (AUTO) 2.4 X 10^3 (1.0-4.0); LYMPHOCYTES % (AUTO) 25 % (12-44); MEAN CORPUSCULAR HEMOGLOBIN 29 PG (25-34); MEAN CORPUSCULAR HGB CONC 33 G/DL (32-36); MEAN CORPUSCULAR VOLUME 87 FL (80-99); MEAN PLATELET VOLUME 10.7 FL (7.4-10.4); MONOCYTES # (AUTO) 0.7 X 10^3 (0.0-1.0); MONOCYTES % (AUTO) 7 % (0-12); NEUTROPHILS # (AUTO) 6.6 X 10^3 (1.8-7.8); NEUTROPHILS % (AUTO) 67 % (42-75); PLATELET COUNT 269 10^3/uL (130-400); WHITE BLOOD COUNT 9.8 10^3/uL (4.3-11.0)
[2020-02-05 13:34] LABS: BILIRUBIN,TOTAL 0.3 MG/DL (0.1-1.0); CALCIUM 9.2 MG/DL (8.5-10.1); CREATININE SERUM 1.76 MG/DL (0.60-1.30); POTASSIUM 4.7 MMOL/L (3.6-5.0); TOTAL PROTEIN 6.9 GM/DL (6.4-8.2)
[~2020-03-18 10:20] MED LIST changes: +AMLO-250 PO; +AMLO-251 PO; -AMLO10TA7 PO; -AMLO5TAB9 PO; +ASPI-1238 PO; -ASPI-983 PO; +PANT20TA18 PO; -PANT20TA3 PO; +PS30T PO; -PSEU30TA35 PO
[2020-03-18 10:34] LABS: BASOPHILS % (AUTO) 1 % (0-10); EOSINOPHILS # (AUTO) 0.1 10^3/uL (0.0-0.3); EOSINOPHILS % (AUTO) 1 % (0-10); HEMATOCRIT 36 % (35-52); LYMPHOCYTES # (AUTO) 2.3 10^3/uL (1.0-4.0); LYMPHOCYTES % (AUTO) 26 % (12-44); MEAN CORPUSCULAR HEMOGLOBIN 28 pg (25-34); MEAN CORPUSCULAR HGB CONC 31 g/dL (32-36); MEAN CORPUSCULAR VOLUME 89 fL (80-99); MEAN PLATELET VOLUME 10.4 fL (9.0-12.2); MONOCYTES # (AUTO) 0.6 10^3/uL (0.0-1.0); MONOCYTES % (AUTO) 7 % (0-12); NEUTROPHILS # (AUTO) 5.7 10^3/uL (1.8-7.8); NEUTROPHILS % (AUTO) 65 % (42-75); PLATELET COUNT 260 10^3/uL (130-400); WHITE BLOOD COUNT 8.8 10^3/uL (4.3-11.0)
== END 2020-05-05 | disposition home or self-care (01) ==
LOC: ONC 10:20
PROVIDERS: ATTEND Internal Medicine Hematology & Oncology
DX: D50.0 Iron deficiency anemia secondary to blood loss (chronic) (principal); I25.10 Atherosclerotic heart disease of native coronary artery without angina pectoris; I12.9 Hypertensive chronic kidney disease with stage 1 through stage 4 chronic kidney disease, or unspecified chronic kidney disease; E11.22 Type 2 diabetes mellitus with diabetic chronic kidney disease; E78.5 Hyperlipidemia, unspecified; G47.33 Obstructive sleep apnea (adult) (pediatric); N18.30 Chronic kidney disease, stage 3 unspecified; K28.9 Gastrojejunal ulcer, unspecified as acute or chronic, without hemorrhage or perforation; Z79.899 Other long term (current) drug therapy; Z79.82 Long term (current) use of aspirin; Z79.84 Long term (current) use of oral hypoglycemic drugs
CPT/HCPCS: 80053; 82728; 85025; G0463; 99213

== ENCOUNTER 2020-05-06 13:35 | Inpatient (IN) | payer MEDICARE, MEDICAID ==
[~2020-05-06] VITALS: Ht 175 cm; Wt 138.0 kg
--- NOTE | 2020-05-06 13:54 | ED Cough/URI ---
General Stated Complaint: FEVER, SOB Source: patient Exam Limitations: no limitations History of Present Illness Date Seen by Provider: May 06, 2020 Time Seen by Provider: 13:45 Initial Comments 69-year-old female presents with shortness of breath, fever, right-sided chest pain that is present with deep breath. Patient reports that she had a negative COVID's test swallow earlier this afternoon. Patient was seen by her primary care provider. Patient reports that since then her symptoms gotten worse with increasing shortness of breath. Patient's febrile upon arrival. She has pain under her right breast with inspiration. Patient reports a history of asthma and COPD. She denies any nausea, vomiting. Patient reports she has inhalers at has not used any other him today. Allergies and Home Medications Allergies Coded Allergies: Choline Fenofibrate (Unverified Allergy, Unknown, 11/06/17) Phenylpropanolamine HCl (Unverified Allergy, Unknown, 11/08/12) amoxicillin trihydrate (Unverified Allergy, Unknown, 11/08/12) brompheniramine maleate (Unverified Allergy, Unknown, 11/08/12) buspirone HCl (Unverified Allergy, Unknown, 11/08/12) celecoxib (Unverified Allergy, Unknown, 11/08/12) meloxicam (Unverified Allergy, Unknown, 05/12/14) niacin (Unverified Allergy, Unknown, 11/08/12) potassium clavulanate (Unverified Allergy, Unknown, 11/08/12) simvastatin (Unverified Allergy, Unknown, 05/12/14) spironolactone (Unverified Allergy, Unknown, 11/08/12) Uncoded Allergies: MIXLACAM (Allergy, Unknown, 05/12/14) Home Medications Albuterol Sulfate 18 Gm Hfa.aer.ad, 2 PUFF INH Q6H PRN for SHORTNESS OF BREATH, (Reported) Albuterol Sulfate 2.5 Mg/3 Ml Vial.neb, 2.5 MG NEB Q6H PRN for SHORTNESS OF BR EATH, (Reported) Amlodipine Besylate 5 Mg Tablet, 5 MG PO HS, (Reported) Aspirin 81 Mg Tablet.dr, 81 MG PO DAILY, (Reported) Atorvastatin Calcium 40 Mg Tablet, 40 MG PO HS, (Reported) Baclofen 20 Mg Tablet, 20 MG PO BID, (Reported) Cetirizine HCl 10 Mg Tablet, 10 MG PO DAILY, (Reported) Cholecalciferol (Vitamin D3) 1,000 Unit Capsule, 1,000 UNIT PO HS, (Reported) Fluticasone Propionate 16 Gm [place].susp, 2 SPRAY NS BID, (Reported) Furosemide 40 Mg Tablet, 40 MG PO DAILY, (Reported) Glipizide 10 Mg Tablet, 20 MG PO BID, (Reported) TAKES 2 (10MG) TABLETS Hydrocodone Bit/Acetaminophen 1 Each Tablet, 1 TAB PO Q6H PRN for PAIN-MODERATE, (Reported) Liraglutide 0.6 Mg/0.1 Ml Pen.injctr, 1.8 MG SC DAILY, (Reported) Losartan/Hydrochlorothiazide 1 Each Tablet, 1 TAB PO DAILY, (Reported) Metformin HCl 500 Mg Tab.er.24h, 1,000 MG PO BID TAKES 2 (500MG) TABLETS Hold metformin for 48 hours Prescribed by: LISA PAIGE on 03/21/19 1020 Montelukast Sodium 10 Mg Tablet, 10 MG PO HS, (Reported) Pantoprazole Sodium 20 Mg Tablet.dr, 20 MG PO DAILY, (Reported) Potassium Chloride 10 Meq Capsule.er, 10 MEQ PO DAILY, (Reported) Patient Home Medication List Home Medication List Reviewed: Yes Review of Systems Review of Systems Constitutional: chills, fever, malaise Respiratory: cough, short of breath; No wheezing Cardiovascular: chest pain (with cough and breath) Gastrointestinal: No abdominal pain, No nausea, No vomiting Musculoskeletal: no symptoms reported Skin: no symptoms reported Psychiatric/Neurological: No Symptoms Reported Hematologic/Lymphatic: No Symptoms Reported Past Tqjaqbu-Zisido-Wbnchg Hx Past Med/Social Hx: Reviewed Nursing Past Med/Soc Hx Patient Social History Drug of Choice: cannibus Type Used: Cigarettes Former Smoker, Quit: October 25, 2006 2nd Hand Smoke Exposure: Yes Recent Hopitalizations: No Immunizations Up To Date Tetanus Booster (TDap): Unknown Date of Pneumonia Vaccine: Apr 10, 2011 Date of Influenza Vaccine: Apr 04, 2017 Seasonal Allergies Seasonal Allergies: Yes Past Medical History Surgeries: Yes (bilat TKR, several knee scopes prior to replacement) Adenoidectomy, Appendectomy, Gallbladder, Hysterectomy, Joint Replacement, Orthopedic, Tonsillectomy Respiratory: Yes Asthma, Pneumonia, Sleep Apnea Currently Using CPAP: Yes (WITH O2) Cardiac: Yes ("ENALARGED LV") High Cholesterol, Hypertension, Valvular Heart Disease Neurological: Yes Concussion 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 Disorders: No 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, 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 Sexually Transmitted Disease: No HIV/AIDS: No Genitourinary: Yes Kidney Infection Gastrointestinal: Yes Gastroesophageal Reflux, Polyps Musculoskeletal: Yes (CHRONIC KNEE PROBLEMS--MULTIPLE SURGERIES AND REPLACEMENTS ) Degenerate Disk Disease, Arthritis, Scoliosis, Chronic Back Pain Endocrine: Yes (ON VICTOZA, ORAL MEDICATIONS) Diabetes, Non-Insulin dep HEENT: Yes (GLASSES) Loss of Vision: Bilateral Hearing Impairment: Denies Cancer: No Psychosocial: No Depression Integumentary: No Blood Disorders: Yes ("HAD IRON INFUSIONS") Adverse Reaction/Blood Tranf: No Family Medical History No Pertinent Family Hx Physical Exam Capillary Refill : Height: 5'9.00" Weight: 256lbs. 0.4oz. 114.853778yn; 35.96 BMI Method:Stated General Appearance: mild distress HEENT: PERRL/EOMI Neck: full range of motion, supple Respiratory: no accessory muscle use, decreased breath sounds Cardiovascular: no edema, tachycardia Gastrointestinal: non tender, soft; No distended, No rebound, No tenderness Extremities: normal range of motion Neurologic/Psychiatric: alert, normal mood/affect, oriented x 3 Skin: diaphoresis Focused Exam Lactate Level 05/06/20 14:00: Lactic Acid Level 2.52*H Respiratory: Decreased Breath Sounds Cardiovascular: Normal Peripheral Pulses, Tachycardia (improved from previous) Capillary Refill: Less Than 3 Seconds Skin: normal color, warm/dry Lactic Acid Level Laboratory Tests Test 05/06/20 14:00 Lactic Acid Level 2.52 MMOL/L (0.50-2.00) *H Within 3hrs of presentation: Admin fluids, Admin ABX, Blood cultures prior to ABX's, Focus exam, Lactate level Progress/Results/Core Measures Suspected Sepsis SIRS Temperature: Pulse: Respiratory Rate: Laboratory Tests 05/06/20 14:00: White Blood Count 21.3H Blood Pressure / Mean: 05/06/20 14:00: Lactic Acid Level 2.52*H Laboratory Tests 05/06/20 14:00: Creatinine 1.62H, Platelet Count 273, Total Bilirubin 0.7 Results/Orders Lab Results Laboratory Tests Test 05/06/20 14:00 Range/Units White Blood Count 21.3 H 4.3-11.0 10^3/uL Red Blood Count 4.01 3.80-5.11 10^6/uL Hemoglobin 11.1 L 11.5-16.0 g/dL Hematocrit 35 35-52 % Mean Corpuscular Volume 88 80-99 fL Mean Corpuscular Hemoglobin 28 25-34 pg Mean Corpuscular Hemoglobin Concent 31 L 32-36 g/dL Red Cell Distribution Width 14.3 10.0-14.5 % Platelet Count 273 130-400 10^3/uL Mean Platelet Volume 10.8 9.0-12.2 fL D-Dimer 0.38 0.00-0.49 UG/ML Sodium Level 135 135-145 MMOL/L Potassium Level 4.4 3.6-5.0 MMOL/L Chloride Level 100 98-107 MMOL/L Carbon Dioxide Level 22 21-32 MMOL/L Anion Gap 13 5-14 MMOL/L Blood Urea Nitrogen 24 H 7-18 MG/DL Creatinine 1.62 H 0.60-1.30 MG/DL Estimat Glomerular Filtration Rate 32 BUN/Creatinine Ratio 15 Glucose Level 379 H 70-105 MG/DL Lactic Acid Level 2.52 *H 0.50-2.00 MMOL/L Calcium Level 8.8 8.5-10.1 MG/DL Corrected Calcium 8.7 8.5-10.1 MG/DL Total Bilirubin 0.7 0.1-1.0 MG/DL Aspartate Amino Transf (AST/SGOT) 16 5-34 U/L Alanine Aminotransferase (ALT/SGPT) 19 0-55 U/L Alkaline Phosphatase 91 40-136 U/L Troponin I < 0.028 <0.028 NG/ML C-Reactive Protein High Sensitivity 7.38 H 0.00-0.50 MG/DL Total Protein 7.4 6.4-8.2 GM/DL Albumin 4.1 3.2-4.5 GM/DL Lipase 24 8-78 U/L Micro Results Microbiology 05/06/20 Influenza Types A,B Antigen (AKIKO) - Final, Complete My Orders Orders - SALAS,LIAM L DO Cbc No Diff (05/06/20 13:55) Hs C Reactive Protein (05/06/20 13:55) Fibrin Degradation Products (05/06/20 13:55) Lipase (05/06/20 13:55) Troponin I (05/06/20 13:55) Ua Culture If Indicated (05/06/20 13:55) Blood Culture (05/06/20 13:55) Influenza A And B Antigens (05/06/20 13:55) Lactic Acid Analyzer (05/06/20 13:55) Chest Pa/Lat (2 View) (05/06/20 13:55) Albuterol/Ipra Inhalation Soln (Duoneb I (05/06/20 14:00) Methylprednisolone Sod Succ (Solu-Medrol (05/06/20 13:55) Svn Small Volume Nebulizer (05/06/20 13:55) Ed Iv/Invasive Line Start (05/06/20 13:55) Ns Iv 1000 Ml (Sodium Chloride 0.9%) (05/06/20 13:55) Acetaminophen Tablet (Tylenol Tablet) (05/06/20 13:55) Comprehensive Metabolic Panel (05/06/20 14:37) Levofloxacin 750 Mg/150 Ml Iv (Levaquin (05/06/20 14:45) Ceftriaxone For Iv Use (Rocephin For I (05/06/20 14:45) Azithromycin Injection (Zithromax Inject (05/06/20 14:45) Coronavirus Sars-Cov-2 So 2018 (05/06/20 15:23) Ed Iv/Invasive Line Start (05/06/20 15:29) Ns Iv 1000 Ml (Sodium Chloride 0.9%) (05/06/20 15:29) Medications Given in ED Current Medications Medications Dose Ordered Sig/Angus Route Start Time Stop Time Status Last Admin Dose Admin Albuterol/ Ipratropium 3 ml ONCE ONCE INH 05/06/20 14:00 05/06/20 14:01 DC 05/06/20 14:13 3 ML Ceftriaxone Sodium 1000 mg/ Sterile Water 10 ml @ 200 mls/hr ONCE ONCE IV 05/06/20 14:45 05/06/20 14:47 DC 05/06/20 15:18 200 MLS/HR Levofloxacin/ Dextrose 150 ml @ 100 mls/hr ONCE ONCE IV 05/06/20 14:45 05/06/20 16:14 05/06/20 15:18 100 MLS/HR Vital Signs/I&O Capillary Refill : Progress Note : Time: 15:27 Progress Note Patient with what appears be a bilateral pneumonia with elevated white blood cell count. Patient was treated for community acquired pneumonia with Rocephin and azithromycin in the ER. Patient has a slight elevation of lactic acid and was given a liter normal saline bolus and started 150 miles an hour. Patient is feeling signally better following treatment. She will be admitted to Dr. Cook for [facility] for further evaluation and treatment the hospital. Diagnostic Imaging Diagonstic Imaging: Xray Plain Films/CT/US/NM/MRI: chest Comments [facility] [place], [place] NAME: DAMIAN STEWARD [facility] REC#: [id number] PT STATUS: REG ER : 1950 PHYSICIAN: LIAM SALAS DO ADMIT DATE: 05/06/20/ER Draft Date of Exam:05/06/20 CHEST PA/LAT (2 VIEW) EXAMINATION: Chest, 2 views. HISTORY: Fever and shortness of breath. COMPARISON: Chest radiograph 03/21/2019. FINDINGS: The heart size is mildly enlarged. Prominent pulmonary vasculature. Patchy airspace opacities within the bilateral lower lungs. No pleural effusion or pneumothorax. The osseous structures are intact. IMPRESSION: Patchy airspace opacities within both lung bases which could be secondary to pneumonia, aspiration, or atelectasis. Dictated on workstation # [id number] Dict: 05/06/20 1512 Trans: 05/06/20 1514 [id number] Interpreted by: DERRICK MURRAY DO Electronically signed by: Reviewed: Reviewed by Me, Reviewed/Discussed Departure Communication (Admissions) Time/Spoke to Admitting Phy: 15:26 Okay to admit, admitted to cardiac stepdown, would like a COVID PCR sent out test performed Impression Primary Impression: Pneumonia Qualified Codes: J18.9 - Pneumonia, unspecified organism Disposition: ADMITTED INPATIENT Condition: Stable Admissions Decision to Admit Reason: Admit from ER (General) Decision to Admit/Date: May 06, 2020 Time/Decision to Admit Time: 15:27 Departure-Patient Inst. Referrals: [facility] (PCP) Primary Care Physician BOOGIE ARAUJO (Family) Primary Care Physician LIAM SALAS DO May 06, 2020 13:54
[2020-05-06] MEDS ORDERED: ACETAMINOPHEN 500 MG TAB (TYLENOL) PO STA (13:55)
[2020-05-06] MEDS ORDERED: methylPREDNISolone 125 MG (Solu-MEDROL) VIAL IV STA (13:55)
[2020-05-06] MEDS ORDERED: NS IV 1000 ML 1,000 ML IV SCH ×2 (13:55→15:29)
[2020-05-06] MEDS ORDERED: RT-ALBUTEROL/IPRATROPIUM 3 ML (DUONEB) VIAL INH ONE (14:00)
[2020-05-06 14:16] LABS: HEMOGLOBIN 11.1 g/dL (11.5-16.0); MEAN PLATELET VOLUME 10.8 fL (9.0-12.2); WHITE BLOOD COUNT 21.3 10^3/uL (4.3-11.0)
[2020-05-06] MEDS ORDERED: AZITHROMYCIN INJECTION 500 MG in NS (IVPB) 250 ML IV ONE (14:45)
[2020-05-06] MEDS ORDERED: LEVOFLOXACIN 750 MG/150 ML IV 150 ML IV ONE (14:45)
[2020-05-06] MEDS ORDERED: cefTRIAXone FOR IV USE 1,000 MG in WATER (STERILE) FOR INJECTION 10 ML IV ONE (14:45)
[2020-05-06 14:49] LABS: LIPASE 24 U/L (8-78)
[2020-05-06 15:00] LABS: ALBUMIN 4.1 GM/DL (3.2-4.5); POTASSIUM 4.4 MMOL/L (3.6-5.0)
[2020-05-06 15:01] LABS: CALCIUM 8.8 MG/DL (8.5-10.1)
[2020-05-06 15:02] LABS: TOTAL PROTEIN 7.4 GM/DL (6.4-8.2)
[2020-05-06 15:04] LABS: BILIRUBIN,TOTAL 0.7 MG/DL (0.1-1.0)
[2020-05-06 15:06] LABS: CREATININE SERUM 1.62 MG/DL (0.60-1.30)
--- NOTE | 2020-05-06 15:14 | Diagnostic Imaging Report ---
EXAMINATION: Chest, 2 views. HISTORY: Fever and shortness of breath. COMPARISON: Chest radiograph 03/21/2019. FINDINGS: The heart size is mildly enlarged. Prominent pulmonary vasculature. Patchy airspace opacities within the bilateral lower lungs. No pleural effusion or pneumothorax. The osseous structures are intact. IMPRESSION: Patchy airspace opacities within both lung bases which could be secondary to pneumonia, aspiration, or atelectasis. Dictated by: Dictated on workstation # [id number]
[2020-05-06 16:10] LABS: BILIRUBIN,URINE NEGATIVE (NEGATIVE); CLARITY,URINE CLEAR; COLOR,URINE YELLOW; GLUCOSE, URINE (UA) TRACE (NEGATIVE); KETONES,URINE NEGATIVE (NEGATIVE); LEUKOCYTE ESTERASE ,URINE TRACE (NEGATIVE); NITRITE,URINE POSITIVE (NEGATIVE); PH,URINE 5.5 (5-9); PROTEIN,URINE NEGATIVE (NEGATIVE)
[2020-05-06 16:44] LABS: AMORPHOUS SEDIMENT,UR FEW AMOR URATES /LPF; BACTERIA,URINE LARGE /HPF
[2020-05-06] MEDS ORDERED: CATHETER FLUSH 10 ML SYR IV PRN (16:45)
[2020-05-06 18:30] VITALS: BP 124/66
[2020-05-06 18:40] VITALS: BP 124/66
[2020-05-06] MEDS: NS IV 1000 ML 1,000 ML IV SCH ×2 (18:48→23:20)
[2020-05-06 20:00] VITALS: BP 136/76
[2020-05-06] MEDS ORDERED: morphine INJ 10 MG/ML 1ML (SYR OR VIAL) IVP PRN (20:45)
[2020-05-06] MEDS ORDERED: ONDANSETRON 4 MG/2 ML (SDV) Z0FRAN IVP PRN (20:45)
[2020-05-06] MEDS ORDERED: ACETAMINOPHEN 500 MG TAB (TYLENOL) PO PRN (20:45)
[2020-05-06] MEDS ORDERED: MELATONIN 3 MG TABLET PO PRN (20:45)
[2020-05-06] MEDS ORDERED: ALPRAZolam 0.25 MG (XANAX) TAB PO PRN (20:45)
[2020-05-06] MEDS ORDERED: CALCIUM CARBONATE 500 MG (TUMS) TAB.CHEW PO PRN ×2 (20:45)
[2020-05-06] MEDS ORDERED: LOPERAMIDE 2 MG (IMODIUM) TABLET PO PRN (20:45)
[2020-05-06] MEDS ORDERED: DOCUSATE SODIUM 100 MG (COLACE) CAP PO PRN (20:45)
[2020-05-06] MEDS ORDERED: BISACODYL 10 MG SUPP (DULCOLAX) PR PRN (20:45)
[2020-05-06] MEDS ORDERED: HYDROcodone/APAP 5 MG/325 MG (LORTAB) TAB PO PRN (20:45)
[2020-05-06] MEDS ORDERED: diphenhydrAMINE 25 MG TAB (BENADRYL) PO PRN (20:45)
[2020-05-06] MEDS ORDERED: cefTRIAXone FOR IV USE 1,000 MG in WATER (STERILE) FOR INJECTION 10 ML IV SCH (21:00)
[2020-05-06] MEDS ORDERED: ENOXAPARIN 40 MG/0.4 ML (LOVENOX) SYR ONE (21:31)
[2020-05-06] MEDS ORDERED: cefTRIAXone 1,000 MG IV (ROCEPHIN) VIAL ONE (21:31)
[2020-05-06] MEDS ORDERED: WATER (STERILE) FOR INJECTION 10 ML ONE (21:32)
[2020-05-06] MEDS: SENNA W/DOCUSATE (SENOKOT S) TABLET PO SCH (22:07)
[2020-05-06] MEDS: ENOXAPARIN 40 MG/0.4 ML (LOVENOX) SYR SC SCH (22:10)
[2020-05-06 22:48] VITALS: BP 124/66
[2020-05-06] MEDS ORDERED: RT-ALBUTEROL INHALER HFA (VENTOLIN HFA) 18 GM IH PRN (23:00)
[2020-05-06 23:28] VITALS: BP 125/72
[2020-05-07] VITALS (10 sets, daily range): BP systolic 116–149; BP diastolic 56–83
[2020-05-07] MEDS: RT-ALBUTEROL INHALER HFA (VENTOLIN HFA) 18 GM IH SCH ×5 (02:47→21:12)
[2020-05-07 03:18] LABS: BASOPHILS % (AUTO) 0 % (0-10); EOSINOPHILS % (AUTO) 0 % (0-10); HEMATOCRIT 32 % (35-52); HEMOGLOBIN 10.1 g/dL (11.5-16.0); LYMPHOCYTES % (AUTO) 7 % (12-44); MEAN CORPUSCULAR HEMOGLOBIN 28 pg (25-34); MEAN CORPUSCULAR HGB CONC 31 g/dL (32-36); MEAN CORPUSCULAR VOLUME 89 fL (80-99); MEAN PLATELET VOLUME 10.6 fL (9.0-12.2); MONOCYTES # (AUTO) 0.4 10^3/uL (0.0-1.0); MONOCYTES % (AUTO) 3 % (0-12); NEUTROPHILS % (AUTO) 90 % (42-75); PLATELET COUNT 221 10^3/uL (130-400); WHITE BLOOD COUNT 15.5 10^3/uL (4.3-11.0)
[2020-05-07 03:29] LABS: ALBUMIN 3.5 GM/DL (3.2-4.5); POTASSIUM 4.5 MMOL/L (3.6-5.0)
[2020-05-07 03:30] LABS: CALCIUM 8.2 MG/DL (8.5-10.1)
[2020-05-07 03:31] LABS: TOTAL PROTEIN 6.4 GM/DL (6.4-8.2)
[2020-05-07 03:33] LABS: BILIRUBIN,TOTAL 0.4 MG/DL (0.1-1.0)
[2020-05-07 03:35] LABS: CREATININE SERUM 1.59 MG/DL (0.60-1.30)
--- NOTE | 2020-05-07 04:24 | Pulmonary Consultation ---
History of Present Illness History of Present Illness Date Seen by Provider: May 07, 2020 Time Seen by Provider: 04:24 Date of Admission Allergies and Home Medications Allergies Coded Allergies: Choline Fenofibrate (Unverified Allergy, Unknown, 11/06/17) Phenylpropanolamine HCl (Unverified Allergy, Unknown, 11/08/12) amoxicillin trihydrate (Unverified Allergy, Unknown, 11/08/12) brompheniramine maleate (Unverified Allergy, Unknown, 11/08/12) buspirone HCl (Unverified Allergy, Unknown, 11/08/12) celecoxib (Unverified Allergy, Unknown, 11/08/12) meloxicam (Unverified Allergy, Unknown, 05/12/14) niacin (Unverified Allergy, Unknown, 11/08/12) potassium clavulanate (Unverified Allergy, Unknown, 11/08/12) simvastatin (Unverified Allergy, Unknown, 05/12/14) spironolactone (Unverified Allergy, Unknown, 11/08/12) Uncoded Allergies: MIXLACAM (Allergy, Unknown, 05/12/14) Home Medications Albuterol Sulfate 18 Gm Hfa.aer.ad, 2 PUFF INH Q6H PRN for SHORTNESS OF BREATH, (Reported) Albuterol Sulfate 2.5 Mg/3 Ml Vial.neb, 2.5 MG NEB Q6H PRN for SHORTNESS OF BREATH, (Reported) Amlodipine Besylate 5 Mg Tablet, 5 MG PO HS, (Reported) Aspirin 81 Mg Tablet.dr, 81 MG PO DAILY, (Reported) Atorvastatin Calcium 40 Mg Tablet, 40 MG PO HS, (Reported) Baclofen 20 Mg Tablet, 20 MG PO BID, (Reported) Cetirizine HCl 10 Mg Tablet, 10 MG PO DAILY, (Reported) Cholecalciferol (Vitamin D3) 1,000 Unit Capsule, 1,000 UNIT PO HS, (Reported) Fluticasone Propionate 16 Gm [place].susp, 2 SPRAY NS BID, (Reported) Furosemide 40 Mg Tablet, 40 MG PO DAILY, (Reported) Glipizide 10 Mg Tablet, 20 MG PO BID, (Reported) TAKES 2 (10MG) TABLETS Hydrocodone Bit/Acetaminophen 1 Each Tablet, 1 TAB PO Q6H PRN for PAIN-MODERATE, (Reported) Liraglutide 0.6 Mg/0.1 Ml Pen.injctr, 1.8 MG SC DAILY, (Reported) Losartan/Hydrochlorothiazide 1 Each Tablet, 1 TAB PO DAILY, (Reported) Metformin HCl 500 Mg Tab.er.24h, 1,000 MG PO BID TAKES 2 (500MG) TABLETS Hold metformin for 48 hours Prescribed by: LISA PAIGE on 03/21/19 1020 Montelukast Sodium 10 Mg Tablet, 10 MG PO HS, (Reported) Pantoprazole Sodium 20 Mg Tablet.dr, 20 MG PO DAILY, (Reported) Potassium Chloride 10 Meq Capsule.er, 10 MEQ PO DAILY, (Reported) Past Hrhpcts-Ppsnhn-Rcnkkt Hx Past Med/Social Hx: Reviewed Nursing Past Med/Soc Hx Patient Social History Alcohol Use: Denies Use Recreational Drug Use: No Drug of Choice: cannibus Smoking Status: Former Smoker Type Used: Cigarettes Former Smoker, Quit: October 25, 2006 2nd Hand Smoke Exposure: Yes Recent Foreign Travel: No Contact w/Someone Who Travel: No Recent Infectious Disease Expo: No Recent Hopitalizations: No Physical Abuse: No Sexual Abuse: No Immunizations Up To Date Tetanus Booster (TDap): Unknown Date of Pneumonia Vaccine: Apr 10, 2011 Date of Influenza Vaccine: Apr 01, 2020 Seasonal Allergies Seasonal Allergies: Yes Past Medical History Surgeries: Yes (bilat TKR, several knee scopes prior to replacement) Adenoidectomy, Appendectomy, Gallbladder, Hysterectomy, Joint Replacement, Orthopedic, Tonsillectomy Respiratory: Yes Asthma, Pneumonia, Sleep Apnea Currently Using CPAP: Yes (WITH O2) Cardiac: Yes ("ENALARGED LV") High Cholesterol, Hypertension, Valvular Heart Disease Neurological: Yes Concussion 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 Disorders: No 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, 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 Sexually Transmitted Disease: No HIV/AIDS: No Genitourinary: Yes Kidney Infection Gastrointestinal: Yes Gastroesophageal Reflux, Polyps Musculoskeletal: Yes (CHRONIC KNEE PROBLEMS--MULTIPLE SURGERIES AND REPLACEMENTS ) Degenerate Disk Disease, Arthritis, Scoliosis, Chronic Back Pain Endocrine: Yes (ON VICTOZA, ORAL MEDICATIONS) Diabetes, Non-Insulin dep HEENT: Yes (GLASSES) Loss of Vision: Bilateral Hearing Impairment: Denies Cancer: No Psychosocial: No Depression Integumentary: No Blood Disorders: Yes ("HAD IRON INFUSIONS") Adverse Reaction/Blood Tranf: No Family Medical History No Pertinent Family Hx Review of Systems Time Seen by Provider: 04:24 Sepsis Event Evaluation Height, Weight, BMI Height: 5'9.00" Weight: 256lbs. 0.4oz. 114.276148fj; 38.53 BMI Method:Stated Exam Exam Vital Signs Date Time Temp Pulse Resp B/P (MAP) Pulse Ox O2 Delivery O2 Flow Rate FiO2 05/06/20 23:28 98 18 94 35.00 05/06/20 22:48 110 90 05/06/20 21:00 Nasal Cannula 3.00 05/06/20 19:00 110 05/06/20 18:40 101 25 124/66 90 Nasal Cannula 3.00 3.00 05/06/20 18:32 101 05/06/20 18:30 101 25 124/66 (85) 90 Nasal Cannula 3.00 05/06/20 18:29 91 Nasal Cannula 3.00 05/06/20 17:25 37.4 05/06/20 16:41 110 23 150/69 95 Nasal Cannula 2.00 05/06/20 13:50 39.1 125 28 164/74 (104) 94 Nasal Cannula 2.00 I & O 05/07/20 07:00 Intake Total 1560 ml Balance 1560 ml Height & Weight Height: 5'9.00" Weight: 256lbs. 0.4oz. 114.737351bh; 38.53 BMI Method:Stated Respiratory: Decreased Breath Sounds Cardiovascular: Normal Peripheral Pulses, Tachycardia (improved from previous) Capillary Refill: Less Than 3 Seconds Gastrointestinal: non tender, soft; No distended, No rebound, No tenderness Results Lab Laboratory Tests 05/06/20 14:00 05/07/20 03:06 JED SAINZ DO May 07, 2020 04:24
[2020-05-07 04:50] LABS: BAND NEUTROPHILS 4 %; LYMPHOCYTES % (MANUAL) 8 %; MONOCYTES % (MANUAL) 3 %; NEUTROPHILS % (MANUAL) 85 %
[2020-05-07 04:51] LABS: RBC MORPH NORMAL
[2020-05-07] MEDS ORDERED: inSUlin ASPART (NovoLOG) 1 UNIT/0.01 ML (CHARGE PER UNIT) SC SCH (06:00)
--- NOTE | 2020-05-07 07:23 | Diagnostic Imaging Report ---
EXAMINATION: Chest 1 view HISTORY: Pneumonia COMPARISON: 05/06/2020 FINDINGS: There has been an increase in left base airspace opacity and right base airspace opacity with small bilateral pleural effusions. No pneumothorax. Heart size is normal. IMPRESSION: 1. Increase in bibasilar airspace opacities, left greater than right concerning for pneumonia. Dictated by: Dictated on workstation # [id number]
[2020-05-07] MEDS ORDERED: NS IV 1000 ML 1,000 ML IV ONE (08:30)
[2020-05-07] MEDS ORDERED: AZITHROMYCIN INJECTION 500 MG in NS (IVPB) 250 ML IV SCH (09:00)
[2020-05-07] MEDS: SENNA W/DOCUSATE (SENOKOT S) TABLET PO SCH ×2 (09:26→20:40)
[2020-05-07] MEDS ORDERED: inSUlin (REGULAR) HUMAN 1 UNIT/0.01 ML (CHARGE PER UNIT) SC PRN (11:00)
[2020-05-07] MEDS: inSUlin ASPART (NovoLOG) 1 UNIT/0.01 ML (CHARGE PER UNIT) SC SCH ×2 (11:46→17:29)
--- NOTE | 2020-05-07 11:47 | Physical Therapy Evaluation ---
PT Evaluation-General Medical Diagnosis Admission Date May 06, 2020 at 15:50 Medical Diagnosis: SOB, fever Onset Date: May 06, 2020 Therapy Diagnosis Therapy Diagnosis: impaired mobility, strength, endurance Height/Weight Height (Feet): 5 Height (Inches): 9.00 Weight (Pounds): 256 Weight (Ounces): 0.4 Precautions Precautions/Isolations: Airborne Isolation Referral Physician: Joyce Reason for Referral: Evaluation/Treatment Medical History Additional Medical History Past Medical History Surgeries: Yes (bilat TKR, several knee scopes prior to replacement) Adenoidectomy, Appendectomy, Gallbladder, Hysterectomy, Joint Replacement, Orthopedic, Tonsillectomy Respiratory: Yes Asthma, Pneumonia, Sleep Apnea Currently Using CPAP: Yes (WITH O2) Cardiac: Yes ("ENALARGED LV") High Cholesterol, Hypertension, Valvular Heart Disease Neurological: Yes Concussion 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 Disorders: No 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 Disorders: Denies 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, 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 Sexually Transmitted Disease: No HIV/AIDS: No Genitourinary: Yes Kidney Infection Gastrointestinal: Yes Gastroesophageal Reflux, Polyps Musculoskeletal: Yes (CHRONIC KNEE PROBLEMS--MULTIPLE SURGERIES AND REPLACEMENTS ) Degenerate Disk Disease, Arthritis, Scoliosis, Chronic Back Pain Endocrine: Yes (ON VICTOZA, ORAL MEDICATIONS) Diabetes, Non-Insulin dep HEENT: Yes (GLASSES) Loss of Vision: Bilateral Hearing Impairment: Denies Cancer: No Psychosocial: No Depression Integumentary: No Blood Disorders: Yes ("HAD IRON INFUSIONS") Reviewed History: Yes Social History Home: Apartment Current Living Status: Entry Into Home: Elevator Prior Prior Level of Function SCALE: Activities may be completed with or without assistive devices. 2-Ktvipynjpm-zumsgzd completes the activity by him/herself with no assistance from a helper. 5-Set-up or Clean-up Assistance-helper sets up or cleans up; patient completes activity. [place] assists only prior to or following the activity. 4-Supervision or Touching Assistance-helper provides verbal cues and/or touching/steadying and/or contact guard assistance as patient completes activity. Assistance may be provided throughout the activity or intermittently. 3-Partial/Moderate Assistance-helper does LESS THAN HALF the effort. [place] lifts, holds or supports trunk or limbs, but provides less than half the effort. 2-Substantial/Maximal Assistance-helper does MORE THAN HALF the effort. [place] lifts or holds trunk or limbs and provides more than half the effort. 4-Hdlonmlho-xurnlc does ALL the effort. Patient does none of the effort to complete the activity. Or, the assistance of 2 or more helpers is required for the patient to complete the activity. If activity was not attempted, code reason: 7-Patient Refused. 9-Not Applicable-not attempted and the patient did not perform the activity before the current illness, exacerbation or injury. 10-Not Attempted due to Environmental Limitations-(lack of equipment, weather restraints, etc.). 88-Not Attempted due to Medical Conditions or Safety Concerns. Bed Mobility: 6 Transfers (B,C,W/C): 6 Gait: 6 Indoor Mobility (Ambulation): Independent Patient has a rolling walker but doesn't use it in the house. PT Evaluation-Current Subjective Patient in bed pre tx, agrees to PT, has no complaints of pain. Pt/Family Goals "to get better and go home" Objective Patient Orientation: Person, Place, Situation Attachments: Oxygen ROM/Strength ROM Lower Extremities WNL except doesn't have full knee extension on the right side Strength Lower Extremities LLE (hip flexion 3/5, knee flexion 4+/5, knee extension 4+/5, dorsiflexion 4+/5), RLE (hip flexion 3/5, knee flexion 4/5, knee extension 4/5, dorsiflexion 4+/5) Sensory Hearing: Functional Sensation Right Lower Extremit: Intact Sensation Left Lower Extremity: Intact Transfers Roll Left to Right (QC): 6 Sit to Lying (QC): 6 Lying to Sitting/Side of Bed(Q: 6 Sit to Stand (QC): 4 Chair/Pip-we-Mbjue Xfer(QC): 4 Gait Does the Patient Walk?: Yes Mode of Locomotion: Walk Anticipated Mode of Locomotion: Walk Walk 10 feet (QC): 4 Distance: 20' Gait Assistive Device: None Comments/Gait Description Steady ambulation even with turning, some SOB after ambulation but O2 was at 92%. Balance Sitting Static: Normal Sitting Dynamic: Normal Standing Static: Normal Standing Dynamic: Normal Treatment supine BLE exercises x20 (AP, QS, HS) Assessment/Needs Patient has impaired mobility, strength, endurance. Steady ambulation but still SBA. SOb with activity. Rehab Potential: Fair PT Senior Living Goals Membership Sales Manager Goals PT Membership Sales Manager Goals Time Frame: May 14, 2020 Roll Left & Right (QC): 6 Sit to Lying (QC): 6 Lying-Sitting on Side/Bed(QC): 6 Sit to Stand (QC): 6 Chair/Zxe-et-Bqzxg Xfer(QC): 6 Toilet Transfer (QC): 6 Walk 10 feet (QC): 6 Walk 50ft with 2 Turns (QC): 6 Walk 150 ft (QC): 6 PT Plan Problem List Problem List: Activity Tolerance, Functional Strength, Safety, Balance, Gait, Transfer Treatment/Plan Treatment Plan: Continue Plan of Care Treatment Plan: Education, Functional Activity Gee, Functional Strength, Gait, Safety, Therapeutic Exercise, Transfers Treatment Duration: May 14, 2020 Frequency: 6 times per week Estimated Hrs Per Day: .25 hour per day Patient and/or Family Agrees t: Yes Safety Risks/Education Patient Education: Gait Training, Transfer Techniques, Correct Positioning, Safety Issues Teaching Recipient: Patient Teaching Methods: Demonstration, Discussion Response to Teaching: Reinforcement Needed Discharge Recommendations Plan Patient will perform bed mobility and transfer training, balance and endurance training, functional strengthening, stair training, gait training, and education to improve functional mobility and independence at home. Therapy Discharge Recommendati: Home & Family Time/GCodes Time In: 1128 Time Out: 1139 Total Billed Treatment Time: 11 Total Billed Treatment 1 visit ARASELI SIMMS PT May 07, 2020 11:47
--- NOTE | 2020-05-07 11:54 | History & Physical-Hospitalist ---
LOREE GUZMAN MED STUDENT 05/07/20 1153: History of Present Illness HPI/Chief Complaint Mrs Orosco is a 69 year old female that presented yesterday to the ED with the CC of worsening SOB. She states that she has been having recurrent pneumonias and UTIs off and on for a while. She states that she has had a known UTI since february that has not been treated. She also states that she had not been to see a doctor since January. She complained of pain on the R side with inhalation. She also has a history of bladder prolapse. She denies feeling any fever or chills this morning. She is complaining of leg swelling and would like to have something to reduce the swelling. She does not have any complaints of trouble breathing or chest pain. No NVD. She states she is constipated. She does not have any difficulties moving around on her own. She has a history significant of renal failure. Source: patient Exam Limitations: no limitations Date Seen 05/07/20 Time Seen by a Provider: 09:00 Attending Physician Arlene Anderson DO [facility] Referring Physician Date of Admission May 06, 2020 at 15:50 Home Medications & Allergies Home Medications Reviewed patient Home Medication Reconciliation performed by pharmacy medication reconciliations outboard technician and/or nursing. Patients Allergies have been reviewed. Allergies Allergies Coded Allergies Choline Fenofibrate (Unverified Allergy, Unknown, 11/06/17) Phenylpropanolamine HCl (Unverified Allergy, Unknown, 11/08/12) amoxicillin trihydrate (Unverified Allergy, Unknown, 11/08/12) brompheniramine maleate (Unverified Allergy, Unknown, 11/08/12) buspirone HCl (Unverified Allergy, Unknown, 11/08/12) celecoxib (Unverified Allergy, Unknown, 11/08/12) meloxicam (Unverified Allergy, Unknown, 05/12/14) niacin (Unverified Allergy, Unknown, 11/08/12) potassium clavulanate (Unverified Allergy, Unknown, 11/08/12) simvastatin (Unverified Allergy, Unknown, 05/12/14) spironolactone (Unverified Allergy, Unknown, 11/08/12) Uncoded Allergies MIXLACAM ( Allergy, Unknown, 05/12/14) Past Dwnubgn-Qgchxw-Orzmkf Hx Past Med/Social Hx: Reviewed Nursing Past Med/Soc Hx Patient Social History Alcohol Use: Denies Use Recreational Drug Use: No Drug of Choice: cannibus Smoking Status: Former Smoker Former Smoker, Quit: October 25, 2006 Type Used: Cigarettes 2nd Hand Smoke Exposure: Yes Recent Foreign Travel: No Contact w/other who traveled: No Recent Hopitalizations: No Recent Infectious Disease Expo: No Immunizations Up To Date Tetanus Booster (TDap): Unknown Date of Pneumonia Vaccine: Apr 10, 2011 Date of Influenza Vaccine: Apr 01, 2020 Seasonal Allergies Seasonal Allergies: Yes Past Medical History Surgeries: Adenoidectomy, Appendectomy, Gallbladder, Hysterectomy, Joint Replacement, Orthopedic, Tonsillectomy Currently Using CPAP: Yes (WITH O2) Cardiac: High Cholesterol, Hypertension, Valvular Heart Disease Neurological: Concussion 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: No Sexually Transmitted Disease: No HIV/AIDS: No 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 Disorders: Denies Hysterectomy, Menopausal Genitourinary: Kidney Infection Gastrointestinal: Gastroesophageal Reflux, Polyps Musculoskeletal: Degenerate Disk Disease, Arthritis, Scoliosis, Chronic Back Pain Endocrine: Diabetes, Non-Insulin dep Loss of Vision: Bilateral Hearing Impairment: Denies Psychosocial: Depression History of Blood Disorders: Yes ("HAD IRON INFUSIONS") Adverse Reaction to Blood [place]: No Family History No Pertinent Family Hx Review of Systems Constitutional: no symptoms reported EENTM: no symptoms reported Respiratory: other (Only minor R side pain on inhalation with deep breaths) Cardiovascular: no symptoms reported Gastrointestinal: no symptoms reported Genitourinary: frequency : No Musculoskeletal: joint swelling (Bilateral LE) Psychiatric/Neurological: No Symptoms Reported Physical Exam Physical Exam Vital Signs Vital Signs - First Documented 05/06/20 13:50 Temp 39.1 Pulse 125 Resp 28 B/P (MAP) 164/74 (104) Pulse Ox 94 O2 Delivery Nasal Cannula O2 Flow Rate 2.00 Capillary Refill : Less Than 3 Seconds Height, Weight, BMI Height: 5'9.00" Weight: 256lbs. 0.4oz. [id number]; 43.10 BMI Method:Stated General Appearance: No Apparent Distress, WD/WN HEENT: PERRL/EOMI Neck: Full Range of Motion, Non Tender Respiratory: Chest Non Tender, Lungs Clear, Normal Breath Sounds, No Accessory Muscle Use, No Respiratory Distress Cardiovascular: Regular Rate, Rhythm, No Edema, No Gallop, No JVD, No Murmur, Normal Peripheral Pulses Gastrointestinal: No Pulsatile Mass, Non Tender Rectal: Deferred Extremity: Swelling (Bilateral LE) Neurologic/Psychiatric: Alert, Oriented x3 Skin: Normal Color, Warm/Dry Lymphatic: No Adenopathy Results Results/Procedures Labs Laboratory Tests 05/06/20 14:00 05/07/20 03:06 Patient resulted labs reviewed. Assessment/Plan Admission Diagnosis Pneumonia Admission Status: Inpatient Order (span 2 midnights) Reason for Inpatient Admission: Pneumonia with increased SOB Assessment and Plan Continue with ABX Adjust meds for better diabetic control Monitor patients O2 saturation Daily labs CBC CMP Move patient to 4th floor Set up followup appointments for patient. Diagnosis/Problems Diagnosis/Problems (1) UTI (urinary tract infection) (2) Leg swelling (3) Constipated (4) Asthma Status: Chronic (5) Diabetes mellitus, type 2 Status: Chronic (6) Iron deficiency anemia due to chronic blood loss Status: Chronic (7) Environmental allergies Status: Chronic (8) Hyperlipidemia Status: Chronic (9) GERD (gastroesophageal reflux disease) Status: Chronic (10) Hypertension Status: Chronic (11) IRON DEFICIENCY ANEMIA,HISTORY OF POLYPS (12) Pneumonia Status: Acute Qualifiers: Pneumonia type: due to unspecified organism Laterality: bilateral Lung location: lower lobe of lung Qualified Codes: J18.9 - Pneumonia, unspecified organism Clinical Quality Measures DVT/VTE Risk/Contraindication: Risk Factor Score Per Nursin RFS Level Per Nursing on Admit: 3=High Supervisory-Addendum Brief Verification & Attestation Participated in pt care: history, physical Personally performed: exam, history Care discussed with: other Procedures: n/a ARLENE ANDERSON DO 05/08/20 0551: History of Present Illness HPI/Chief Complaint CC: SOB HPI: This is a 69yoWF clinic pt of [facility] who presents with SOB, had a Covid swab that was rapid was negative, the PCR was negative and she has been taken out of isolation but she still remains with a bacterial pneumonia and she is having some significant elevated blood sugar and issues with chronic UTI and having significant problems with volume overload and edema so will heplock IV fluid, wrap legs with MARGI wraps and transfer to the floor. Past Csvqbiv-Spujwr-Frkxky Hx Past Med/Social Hx: Reviewed Nursing Past Med/Soc Hx, Reviewed and Corrections made Patient Social History Marrital Status: single Employed/Student: retired Alcohol Use: Denies Use Smoking Status: Unknown if Ever Smoked Past Medical History Cardiac: High Cholesterol, Hypertension Neurological: Neuropathy Genitourinary: Bladder Infection Gastrointestinal: Chronic Constipation Musculoskeletal: Chronic Back Pain Endocrine: Diabetes, Insulin dep Review of Systems Constitutional: see HPI, malaise, weakness Respiratory: cough, dyspnea on exertion, short of breath, wheezing Psychiatric/Neurological: Anxiety All Other Systems Reviewed Negative Unless Noted: Yes Physical Exam Physical Exam General Appearance: No Apparent Distress, Anxious, Chronically ill, Obese Respiratory: Chest Non Tender, No Accessory Muscle Use, No Respiratory Distress, Decreased Breath Sounds, Wheezing Cardiovascular: Regular Rate, Rhythm Assessment/Plan Admission Diagnosis Assessment: PNA Resp insuff DM OOC HTN Plan: Tx to 4th Abx HLIVF Wrap legs Diagnosis/Problems Diagnosis/Problems (1) Pneumonia Status: Acute Qualifiers: Pneumonia type: due to unspecified organism Laterality: bilateral Lung location: lower lobe of lung Qualified Codes: J18.9 - Pneumonia, unspecified organism (2) UTI (urinary tract infection) (3) Leg swelling (4) Constipated (5) Asthma Status: Chronic (6) Diabetes mellitus, type 2 Status: Chronic (7) Iron deficiency anemia due to chronic blood loss Status: Chronic (8) Environmental allergies Status: Chronic (9) Hyperlipidemia Status: Chronic (10) GERD (gastroesophageal reflux disease) Status: Chronic (11) Hypertension Status: Chronic (12) IRON DEFICIENCY ANEMIA,HISTORY OF POLYPS Supervisory-Addendum Brief Verification & Attestation Participated in pt care: history, MDM, physical Personally performed: exam, history, MDM, supervision of care Care discussed with: Medical Student Procedures: n/a Results interpretation: Verified all documentation Verification and Attestation of Medical Student E/M Service A medical student performed and documented this service in my presence. I re viewed and verified all information documented by the medical student and made modifications to such information, when appropriate. I personally performed the physical exam and medical decision making. Arlene Anderson, May 08, 2020,05:51 LOREE GUZMAN MED STUDENT May 07, 2020 11:53 ARLENE ANDERSON DO May 08, 2020 05:51
--- NOTE | 2020-05-07 12:06 | NUR ---
REPORT GIVEN TO [facility] 4TH FLOOR. PT TO BE TRANSFERRED TO [facility] WITH BELONGINGS
--- NOTE | 2020-05-07 12:20 | NUR ---
REPORT RECEIVED FROM RIGGER VLAD. PATIENT TO ROOM 415 VIA BED.
--- NOTE | 2020-05-07 13:52 | Occupational Therapy Eval ---
OT Evaluation-General/PLF Medical Diagnosis Admission Date May 06, 2020 at 15:50 Medical Diagnosis: SOB, fever Onset Date: May 06, 2020 Therapy Diagnosis Therapy Diagnosis: no deficits noted Height/Weight Height (Feet): 5 Height (Inches): 9.00 Weight (Pounds): 256 Weight (Ounces): 0.4 Precautions Precautions/Isolations: Airborne Isolation Referral Physician: Joyce Referral Reason: Evaluation/Treatment Medical History Current History bilateral TKR, asthma, pneumonia, sleep apnea, HTN, high cholesterol, valvular heart disease, DDD, arthritis, scoliosis, DM, depression Social History Home: Apartment (6th floor) Current Living Status: Alone Entry Into Home: Elevator ADL-Prior Level of Function SCALE: Activities may be completed with or without assistive devices. 2-Vpqjcodxwm-grhfzcn completes the activity by him/herself with no assistance from a helper. 5-Set-up or Clean-up Assistance-helper sets up or cleans up; patient completes activity. [place] assists only prior to or following the activity. 4-Supervision or Touching Assistance-helper provides verbal cues and/or touching/steadying and/or contact guard assistance as patient completes activity. Assistance may be provided throughout the activity or intermittently. 3-Partial/Moderate Assistance-helper does LESS THAN HALF the effort. [place] lifts, holds or supports trunk or limbs, but provides less than half the effort. 2-Substantial/Maximal Assistance-helper does MORE THAN HALF the effort. [place] lifts or holds trunk or limbs and provides more than half the effort. 5-Joddlrfwk-iixzsc does ALL the effort. Patient does none of the effort to complete the activity. Or, the assistance of 2 or more helpers is required for the patient to complete the activity. If activity was not attempted, code reason: 7-Patient Refused. 9-Not Applicable-not attempted and the patient did not perform the activity before the current illness, exacerbation or injury. 10-Not Attempted due to Environmental Limitations-(lack of equipment, weather restraints, etc.). 88-Not Attempted due to Medical Conditions or Safety Concerns. ADL PLOF Comments Pt indicates she lives alone in [facility]. She has people close by who can assist her if needed, but she was independent with bathing, dressing and cooking at [facility]. She has a skilled worker who assists with cleaning, and occasionally assists with food prep. She has a tub/shower with grab bars and a non-slip mat, no bath chair/bench. She likes to go on hikes with friends and uses a walking stick, she is also able to do grocery shopping while holding onto the cart. She indicates otherwise she is independent with functional mobility without AD. Self Care: Needed Some Help Functional Cognition: Independent DME/Equipment: Grab Bars, Tub/Shower OT Current Status Subjective Pt laying in bed, agreeable to OT Tx. Mental Status/Objective Patient Orientation: Person, Place, Time, Situation Current Glasses/Contacts: Yes (reading) Hearing Aids: No ([place] R ear) Dentures/Partials: No Hand Dominance: Right Upper Extremity ROM WFL, BUE shoulder flexion to approx 160 degrees Upper Extremity Coordination WFL Upper Extremity Sensation WFL Upper Extremity Strength WFL ADL-Treatment Eating (QC): 6 (Pt indicates no difficulty with eating lunch) Oral Hygiene (QC): 6 (Based on clinical judgement, pt would be independent with task.) On/Off Footwear (QC): 6 (Pt able to don shoes independently seated EOB) Toileting Hygiene (QC): 7 (Pt declined toileting at this time.) Other Treatments Pt laying in bed, OT educated pt on purpose and benefits of OT, she verbalized understanding. Pt provided information about PLOF and home set up and participated in UE screen. Pt transferred supine to sit EOB independently, donned shoes independently, then completed sit to stand without assistance. Pt able to ambulate to window in her room and back to bed, sat EOB. Pt able to bend over and reach feet as she would if she were to don pants, pt states she does not think she would have any difficulty with donning pants at this time. Pt doffed her shoes and transferred supine independently. Pt indicates she feels like she is at her PLOF, and does not require further OT services at this time. Post OT Tx, pt laying in bed, call light in reach and all needs met. Education OT Patient Education: Correct positioning, Modified ADL techniques, Progress toward Goal/Update tx plan, Purpose of tx/functional activities, Rehab process Teaching Recipient: Patient Teaching Methods: Discussion Response to Teaching: Verbalize Understanding OT Circus Artist Goals Nursing Home Goals 1=Demonstrate adherence to instructed precautions during ADL tasks. 2=Patient will verbalize/demonstrate understanding of assistive devices/modifications for ADL. 3=Patient will improve strength/tolerance for activity to enable patient to perform ADL's. OT Education/Plan Problem List/Assessment Assessment: No Skilled OT Needs ID'd Pt is independent with ADLs during tx and feels like she is at her PLOF. No skilled OT services are indicated at this time, d/c from OT. Discharge Recommendations Plan/Recommendations: Discharge/Goals Met Treatment Plan/Plan of Care Treatment,Training & Education: Yes Patient would benefit from OT for education, treatment and training to promote independence in ADL's, mobility, safety and/or upper extremity function for ADL's. Plan of Care: ADL Retraining Treatment Duration: May 07, 2020 Frequency: 1 time per week (eval only) Rehab Potential: Fair Time/GCodes Start Time: 13:25 Stop Time: 13:41 Total Time Billed (hr/min): 16 Billed Treatment Time 1, LAUREN LEARY OT May 07, 2020 13:52
[2020-05-07] MEDS ORDERED: CHOL10007 PO (14:31)
[2020-05-07] MEDS ORDERED: HYDR-3817 PO (14:31)
[2020-05-07] MEDS ORDERED: EZET10TA49 PO (14:31)
[2020-05-07] MEDS ORDERED: INSU100I29 SC (14:31)
[2020-05-07] MEDS ORDERED: FAMO20TA5 PO (14:31)
[2020-05-07] MEDS ORDERED: MULT-1136 PO (14:31)
[2020-05-07] MEDS ORDERED: OXYB5TAB13 PO (14:31)
[2020-05-07] MEDS ORDERED: LOSA50TA63 PO (14:39)
[2020-05-07] MEDS ORDERED: CETI-240 PO (14:44)
--- NOTE | 2020-05-07 14:45 | NUR ---
SPOKE WITH THE PT AND WENT THRU THE EXT MED HISTORY TO COMPLETE THE MED REC PT WAS ABLE TO NAME ALL HER MEDICATIONS WELL WHEN/HOW SHE TAKES EACH LOSARTAN 50MG- ON THE EXT MED HISTORY THE LAST FILL DATE SHOWS 12-31-2019 #30/30DS BUT THE REFILL PRIOR SHOWS FILLED ON 10-10-2019 #180/90DS BUT THE PT WAS ONLY TAKING 1 TAB DAILY. BETWEEN THE 2 LAST FILL DATES THE PT RECEIVED #210 TABS (7 MONTH SUPPLY) ON THE EXT MED HISTORY IS SHOWS ACTOS 30MG AND METFORMIN ER 500MG BUT ACCORDING TO THE PT THESE MEDICATIONS HAVE BEEN DISCONTINUED DUE TO THE PTS KIDNEY FUNCTION OTC MEDS: MTV ASPIRIN 81 VIT D
[2020-05-07] MEDS ORDERED: cefTRIAXone 1,000 MG IV (ROCEPHIN) VIAL ONE (14:55)
[2020-05-07] MEDS ORDERED: WATER (STERILE) FOR INJECTION 10 ML ONE (14:55)
[2020-05-07] MEDS: cefTRIAXone 1,000 MG/SWFI 10 ML IV PUSH IV SCH ×2 (15:37)
[2020-05-07] MEDS: AZITHROMYCIN 500 MG/NS 250 ML IVPB IV SCH ×2 (15:38)
--- NOTE | 2020-05-07 17:17 | Consultation-Cardiology ---
HPI-Cardiology Cardiology Consultation: Date of Consultation 05/07/20 Date of Admission Attending Physician Arlene Anderson DO Admitting Physician [place] Consulting Physician Gricel CASILLAS MD HPI: Time Seen by a Provider: 12:45 Chief Complaint: Shortness of breath This is a 69-year-old lady with history of congestive heart failure and follows with Dr. Herrera. She presents with worsening shortness of breath. She was diagnosed with pneumonia. She denies active smoking. Pertinent family history is negative. She denies any other cardiac complaints. Review of Systems-Cardiology Review of Systems Constitutional: As described under HPI; No As described under HPI, No no symptoms reported, No chills, No fever, No lightheadedness Eyes: No As described under HPI, No no symptoms reported, No blindness, No blurred vision, No contact lenses, No drainage, No decreased acuity, No foreign body sensation, No pain, No vision change Ears/Nose/Throat: No As described under HPI, No no symptoms reported, No chronic hearing loss, No ear discharge, No ear pain, No nasal drainage, No ulcerations Respiratory: No no symptoms reported; As described under HPI; No As described under HPI, No cough, No orthopnea; shortness of breath; No SOB with excertion Cardiovascular: No no symptoms reported; As described under HPI; No As described under HPI, No chest pain, No edema, No irregular heart rate, No lightheadedness, No palpitations Gastrointestinal: No no symptoms reported, No As described under HPI, No abdomen distended, No abdominal pain, No blood streaked bowels, No constipation, No diarrhea, No nausea, No vomiting, No stool coloration changes Genitourinary: No As described under HPI, No burning, No dysuria, No discharge, No frequency, No flank pain, No hematuria, No urgency : No Skin: No rash, No skin related problems, No ulcerations Psychiatric/Neurological: No anxiety, No depression, No seizure, No focal weakness, No syncope Hematologic: No bleeding abnormalities [facility] Hx Patient Social History Alcohol Use: Denies Use Recreational Drug Use: No Drug of Choice: cannibus Smoking Status: Former Smoker Type Used: Cigarettes 2nd Hand Smoke Exposure: Yes Recent Foreign Travel: No Recent Infectious Disease Expo: No Hospitalization with Isolation: Denies Immunizations Up To Date Tetanus Booster (TDap): Unknown Date of Pneumonia Vaccine: Apr 10, 2011 Date of Influenza Vaccine: Apr 01, 2020 Past Medical History PMH As described under Assessment. Allergies and Home Medications Allergies Coded Allergies: Choline Fenofibrate (Unverified Allergy, Unknown, 11/06/17) Phenylpropanolamine HCl (Unverified Allergy, Unknown, 11/08/12) amoxicillin trihydrate (Unverified Allergy, Unknown, 11/08/12) brompheniramine maleate (Unverified Allergy, Unknown, 11/08/12) buspirone HCl (Unverified Allergy, Unknown, 11/08/12) celecoxib (Unverified Allergy, Unknown, 11/08/12) meloxicam (Unverified Allergy, Unknown, 05/12/14) niacin (Unverified Allergy, Unknown, 11/08/12) potassium clavulanate (Unverified Allergy, Unknown, 11/08/12) simvastatin (Unverified Allergy, Unknown, 05/12/14) spironolactone (Unverified Allergy, Unknown, 11/08/12) Uncoded Allergies: MIXLACAM (Allergy, Unknown, 05/12/14) Home Medications Albuterol Sulfate 18 Gm Hfa.aer.ad, 2 PUFF INH Q6H PRN for SHORTNESS OF BREATH, (Reported) Albuterol Sulfate 2.5 Mg/3 Ml Vial.neb, 2.5 MG NEB Q6H PRN for SHORTNESS OF BREATH, (Reported) Amlodipine Besylate 5 Mg Tablet, 5 MG PO HS, (Reported) Aspirin 81 Mg Tablet.dr, 81 MG PO DAILY, (Reported) Atorvastatin Calcium 40 Mg Tablet, 40 MG PO HS, (Reported) Cefdinir 300 Mg Capsule, 300 MG PO BID Prescribed by: ARLENE ANDERSON on 05/09/20 1148 Cetirizine HCl 10 Mg Tab.chew, 10 MG PO DAILY, (Reported) Cholecalciferol (Vitamin D3) 25 Mcg Capsule, 25 MCG PO DAILY, (Reported) Ezetimibe 10 Mg Tablet, 10 MG PO HS, (Reported) Famotidine 20 Mg Tablet, 20 MG PO HS, (Reported) Fluticasone Propionate 16 Gm [place].susp, 2 SPRAY NS DAILY, (Reported) Furosemide 40 Mg Tablet, 40 MG PO DAILY, (Reported) Glipizide 10 Mg Tablet, 20 MG PO BID, (Reported) TAKES 2 (10MG) TABLETS Hydrocodone/Acetaminophen 1 Each Tablet, 1 EA PO Q8H PRN for PAIN-MODERATE (5- 7), (Reported) Insulin Detemir 100 Unit/1 Ml Insuln.pen, 20 UNITS SC BID Prescribed by: ARLENE ANDERSON on 05/09/20 1148 Losartan Potassium 50 Mg Tablet, 50 MG PO DAILY, (Reported) Montelukast Sodium 10 Mg Tablet, 10 MG PO HS, (Reported) Multivitamin 1 Each Tablet, 1 EACH PO DAILY, (Reported) Oxybutynin Chloride 5 Mg Tablet, 5 MG PO BID, (Reported) Pantoprazole Sodium 20 Mg Tablet.dr, 20 MG PO DAILY, (Reported) Potassium Chloride 10 Meq Capsule.er, 10 MEQ PO DAILY, (Reported) Tizanidine HCl 4 Mg Tablet, 4 MG PO BID Prescribed by: ARLENE ANDERSON on 05/09/20 1148 Patient Home Medication List Home Medication List Reviewed: Yes Physical Exam-Cardiology Physical Exam Vital Signs/I&O Capillary Refill : Less Than 3 Seconds Constitutional: appears stated age, AAO x 3; No apparent distress; well- developed, well-nourished HEENT: PERRL; No discharge; hearing is well preserved, oral hygience is good; No ulceration, No xanthelasmas are seen Neck: No carotid bruit; carotid pulses are 2 + bilaterally Respiratory: chest is bilaterally symmetric, wheezing Cardiovascular: regular rate-rhythm, S1 and S2 Gastrointestinal: soft, audible bowel sounds; No spleenomegaly Rectal: deferred Extremities: normal range of motion, non-tender, normal inspection, pedal edema; No clubbing, No cyanosis, No significant edema Neurologic/Psychiatric: no motor/sensory deficits, alert, normal mood/affect, oriented x 3, power is 5/5 both on sides Skin: normal color, warm/dry Data Review Labs Microbiology 05/06/20 Urine Culture - Final, Complete Escherichia coli 05/06/20 Influenza Types A,B Antigen (AKIKO) - Final, Complete 05/06/20 Blood Culture - Preliminary, Resulted No growth A/P-Cardiology Assessment/Admission Diagnosis Shortness of breath, Pneumonia, History of congestive heart failure, Acute kidney injury Plan Shortness of breath, likely due to pneumonia. IV antibiotics. Defer to the primary team. Pneumonia, History of congestive heart failure, no antibiotics for now. Patient may require IV fluids due to lactic acidosis and sepsis. Acute kidney injury, IV fluids. Thank you for your consultation. Please call me if you have any questions. Tito Casillas MD, FACP, FACC, FSCAI, FHRS, CCDS Interventional Cardiology Cardiac Electrophysiology Vascular Medicine and Endovascular Interventions Clinical Quality Measures DVT/VTE Risk/Contraindication: Risk Factor Score Per Nursin RFS Level Per Nursing on Admit: 3=High Gricel CASILLAS MD May 07, 2020 17:17
[2020-05-07] MEDS: ENOXAPARIN 40 MG/0.4 ML (LOVENOX) SYR SC SCH (20:41)
[2020-05-08] VITALS (7 sets, daily range): BP systolic 108–148; BP diastolic 58–83
[2020-05-08] MEDS ORDERED: HYDROcodone/APAP 7.5 MG/325 MG (LORTAB, LORCET PLUS) TABLET PO PRN (06:00)
[2020-05-08] MEDS ORDERED: RT-ALBUTEROL SULF 2.5 MG/3 ML PRE-MIX VIAL INH PRN (06:00)
[2020-05-08] MEDS ORDERED: RT-ALBUTEROL SULF 2.5 MG/3 ML PRE-MIX VIAL IH PRN (06:00)
[2020-05-08 06:03] LABS: BASOPHILS # (AUTO) 0.1 10^3/uL (0.0-0.1); BASOPHILS % (AUTO) 0 % (0-10); EOSINOPHILS # (AUTO) 0.1 10^3/uL (0.0-0.3); EOSINOPHILS % (AUTO) 1 % (0-10); HEMATOCRIT 34 % (35-52); HEMOGLOBIN 10.2 g/dL (11.5-16.0); LYMPHOCYTES # (AUTO) 2.7 10^3/uL (1.0-4.0); LYMPHOCYTES % (AUTO) 19 % (12-44); MEAN CORPUSCULAR HEMOGLOBIN 27 pg (25-34); MEAN CORPUSCULAR HGB CONC 30 g/dL (32-36); MEAN CORPUSCULAR VOLUME 90 fL (80-99); MONOCYTES # (AUTO) 0.6 10^3/uL (0.0-1.0); MONOCYTES % (AUTO) 4 % (0-12); NEUTROPHILS # (AUTO) 10.5 10^3/uL (1.8-7.8); NEUTROPHILS % (AUTO) 74 % (42-75); PLATELET COUNT 231 10^3/uL (130-400); WHITE BLOOD COUNT 14.1 10^3/uL (4.3-11.0)
[2020-05-08 06:25] LABS: ALBUMIN 3.6 GM/DL (3.2-4.5); BILIRUBIN,TOTAL 0.3 MG/DL (0.1-1.0); CREATININE SERUM 1.4 MG/DL (0.60-1.30); POTASSIUM 4.2 MMOL/L (3.6-5.0); TOTAL PROTEIN 6.6 GM/DL (6.4-8.2)
[2020-05-08] MEDS: RT-ALBUTEROL INHALER HFA (VENTOLIN HFA) 18 GM IH SCH ×6 (07:26→22:13)
[2020-05-08] MEDS: MULTIVIT W/MINERALS TAB (THERAGRAN M) PO SCH (07:37)
[2020-05-08] MEDS: PANTOPRAZOLE 20 MG TABLET (PROTONIX) PO SCH (07:37)
[2020-05-08] MEDS: VITAMIN D3 25 MCG (1,000 UNITS) TABLET PO SCH (08:33)
[2020-05-08] MEDS: LOSARTAN 50 MG (COZAAR) TAB PO SCH (08:33)
[2020-05-08] MEDS: FLUTICASONE NASAL SPRAY (FLONASE) 16 GM BTL NS SCH (08:33)
[2020-05-08] MEDS: FUROSEMIDE 40 MG (LASIX) TAB PO SCH (08:33)
[2020-05-08] MEDS: LORATADINE (CLARITIN) 10 MG TAB PO SCH (08:33)
[2020-05-08] MEDS: OXYBUTYNIN (DITROPAN) 5 MG TAB PO SCH ×2 (08:33→21:22)
[2020-05-08] MEDS: ASPIRIN E.C. 81 MG (ECOTRIN) TAB PO SCH (08:33)
[2020-05-08] MEDS: SENNA W/DOCUSATE (SENOKOT S) TABLET PO SCH ×2 (08:34→21:23)
[2020-05-08] MEDS: KCL 10 MEQ TAB (MICRO K) PO SCH (08:34)
[2020-05-08] MEDS: inSUlin ASPART (NovoLOG) 1 UNIT/0.01 ML (CHARGE PER UNIT) SC SCH ×3 (08:35→17:50)
[2020-05-08] MEDS ORDERED: BACLOFEN 10 MG (LIORESAL) TAB PO SCH (09:00)
--- NOTE | 2020-05-08 11:22 | Physical Therapy Daily Note ---
PT Daily Note-Current Subjective Patient reports she is up independently in room with and without O2. RT present to check SAO2 on RA at 92%. Patient agrees to PT. Mental Status Patient Orientation: Normal For Age Attachments: Oxygen Transfers SCALE: Activities may be completed with or without assistive devices. 7-Tgsozrtxfz-tlgwkwc completes the activity by him/herself with no assistance from a helper. 5-Set-up or Clean-up Assistance-helper sets up or cleans up; patient completes activity. [place] assists only prior to or following the activity. 4-Supervision or Touching Assistance-helper provides verbal cues and/or touching/steadying and/or contact guard assistance as patient completes activity. Assistance may be provided throughout the activity or intermittently. 3-Partial/Moderate Assistance-helper does LESS THAN HALF the effort. [place] lifts, holds or supports trunk or limbs, but provides less than half the effort. 2-Substantial/Maximal Assistance-helper does MORE THAN HALF the effort. [place] lifts or holds trunk or limbs and provides more than half the effort. 6-Yhqzdxhvl-uxyffw does ALL the effort. Patient does none of the effort to complete the activity. Or, the assistance of 2 or more helpers is required for the patient to complete the activity. If activity was not attempted, code reason: 7-Patient Refused. 9-Not Applicable-not attempted and the patient did not perform the activity before the current illness, exacerbation or injury. 10-Not Attempted due to Environmental Limitations-(lack of equipment, weather restraints, etc.). 88-Not Attempted due to Medical Conditions or Safety Concerns. Sit to Lying (QC): 6 Lying to Sitting/Side of Bed(Q: 6 Sit to Stand (QC): 6 Gait Training Does the Patient Walk?: Yes Distance: 400' Walk 10 feet (QC): 6 Walk 50 ft with 2 Turns(QC): 6 Walk 150 ft (QC): 6 Gait Assistive Device: None safe and functional with no deviation Assessment Patient is currently at independent PLOF with all gross motor skills and does not require skilled therapy intervention. PT Usp Goals Apple Thinner Goals PT Apple Thinner Goals Time Frame: May 14, 2020 Roll Left & Right (QC): 6 Sit to Lying (QC): 6 Lying-Sitting on Side/Bed(QC): 6 Sit to Stand (QC): 6 Chair/Ugf-wd-Plgyk Xfer(QC): 6 Toilet Transfer (QC): 6 Walk 10 feet (QC): 6 Walk 50ft with 2 Turns (QC): 6 Walk 150 ft (QC): 6 PT Plan Treatment/Plan Treatment Plan: Discontinue PT, goals met Treatment Plan: Education, Functional Activity Gee, Functional Strength, Gait, Safety, Therapeutic Exercise, Transfers Treatment Duration: May 14, 2020 Frequency: 6 times per week Estimated Hrs Per Day: .25 hour per day Patient and/or Family Agrees t: Yes Time/GCodes Time In: 1010 Time Out: 1028 Total Billed Treatment Time: 18 Total Billed Treatment 1 visit FA 18 min TANVI NOVOA PT May 08, 2020 11:22
--- NOTE | 2020-05-08 11:51 | Progress Note - Hospitalist ---
WENDY PIERCE MED STUDENT 05/08/20 1151: Subjective HPI/CC On Admission Date Seen by Provider: May 08, 2020 Time Seen by Provider: 10:00 CC: SOB HPI: This is a 69yoWF clinic pt of [facility] who presents with SOB, had a Covid swab that was rapid was negative, the PCR was negative and she has been taken out of isolation but she still remains with a bacterial pneumonia and she is having some significant elevated blood sugar and issues with chronic UTI and having significant problems with volume overload and edema so will heplock IV fluid, wrap legs with MARGI wraps and transfer to the floor. Subjective/Events-last exam Patient reports feeling slightly improved today. She say's she did not wear her CPAP over night as she's been having a productive cough with whitish sputum frequently through the night. She is tolerating oxygen via the nasal cannula fine. She reports decreased leg and ankle swelling as well. She is reporting continued stress incontinence as she's been coughing frequently. She also reports some moderate/severe back pain on the right side of her back in the v icinity of the CVA region. She did have some tenderness with lloyds kidney punch on the right this morning per Ivone(med student). She states that her appetite is slightly improved from yesterday as well. Denies chills, shaking, SOB, and diarrhea. She reports having an echocardiogram completed this morning. She still reports exertional SOB when ambulating with PT. Review of Systems General: No Chills, No Night Sweats; Fatigue, Malaise HEENT: No Head Aches, No Visual Changes Pulmonary: Dyspnea (exertional, remains on NC 1L), Cough (productive for white sputum) Cardiovascular: No: Chest Pain, Palpitations Gastrointestinal: No: Nausea, Vomiting, Abdominal Pain, Diarrhea Genitourinary: No Dysuria; Frequency, Incontinence (stress incontinence) Musculoskeletal: back pain (R sided paraspinal muscle tightness, chronic related to scoliosis); No: neck pain, shoulder pain Neurological: No: Weakness, Numbness Focused Exam Lactate Level 05/06/20 14:00: Lactic Acid Level 2.52*H 05/06/20 16:05: Lactic Acid Level 2.14*H 05/06/20 17:15: Lactic Acid Level 1.95 Objective Exam Vital Signs Vital Signs Date Time Temp Pulse Resp B/P (MAP) Pulse Ox O2 Delivery O2 Flow Rate FiO2 05/08/20 10:20 92 Room Air 05/08/20 09:00 1.00 05/08/20 07:35 36.7 111 22 143/83 (103) Capillary Refill : Less Than 3 Seconds General Appearance: No Apparent Distress, Chronically ill HEENT: PERRL/EOMI, Pharynx Normal Neck: Full Range of Motion, Non Tender Respiratory: Chest Non Tender, Lungs Clear, Normal Breath Sounds, No Accessory Muscle Use Cardiovascular: Regular Rate, Rhythm, No Murmur, Normal Peripheral Pulses Gastrointestinal: Normal Bowel Sounds, Non Tender Rectal: Deferred Back: Normal Inspection, CVA Tenderness (R) (mild ), Muscle Spasm (Scolosis related ) Extremity: Normal Capillary Refill, Non Tender, Pedal Edema (trace) Neurologic/Psychiatric: Alert, Oriented x3, No Motor/Sensory Deficits Skin: Normal Color, Warm/Dry Lymphatic: No Adenopathy Results/Procedures Lab Laboratory Tests 05/08/20 05:53 Patient resulted labs reviewed. Assessment/Plan Assessment and Plan Assess & Plan/Chief Complaint Pneumonia/Shortness of breath UTI- chronic Cough Leg swelling Diabetes mellitus- uncontrolled HTN HLP GERD Chronic back pain Continue IV abx Oxygen via NC- wean as tolerated Maintain tight control of blood glucoses Home 02 evaluation to be completed overnight tonight Continue PT Encourage CPAP overnight ? change baclofen to alternative for back spasms Clinical Quality Measures DVT/VTE Risk/Contraindication: Risk Factor Score Per Nursin RFS Level Per Nursing on Admit: 3=High ARLENE ANDERSON DO 05/09/20 0508: Subjective Subjective/Events-last exam pt down to one liter of O2 Home O2 evaluation in addition to overnight study will be ordered PT showed SOB with activity WC down to 14 Maintain on IV antibiotics Baclofen will be changed to Zanaflex Review of Systems General: Fatigue, Malaise Objective Exam General Appearance: No Apparent Distress, WD/WN, Chronically ill, Obese Respiratory: Lungs Clear Cardiovascular: Regular Rate, Rhythm Assessment/Plan Assessment and Plan Assess & Plan/Chief Complaint Monitor labs Home O2 eval Supervisory-Addendum Brief Verification & Attestation Participated in pt care: history, MDM, physical Personally performed: exam, history, MDM, supervision of care Care discussed with: Medical Student Procedures: n/a Results interpretation: Verified all documentation Verification and Attestation of Medical Student E/M Service A medical student performed and documented this service in my presence. I reviewed and verified all information documented by the medical student and made modifications to such information, when appropriate. I personally performed the physical exam and medical decision making. Arlene Anderson, May 09, 2020,05:07 WENDY PIERCE MED STUDENT May 08, 2020 11:51 ARLENE ANDERSON DO May 09, 2020 05:08
--- NOTE | 2020-05-08 14:39 | NUR ---
RD ASSESSMENT PMHx: hypercholesterolemia; HTN; GERD; DM; PT INTERACTION: Pt was awake and pleasant during nutrition assessment. Pt states current appetite is not great, and has been this way for the last 2days. Note avg PO intake 100% x1d, per chart review. Pt states following a "more protein" diet at home, and has no issues with chewing/swallowing food. Pt states no recent issues with nausea, vomiting, constipation, or diarrhea. Note last BM was 05/07, and pt currently on bowel regimen of senna BID, per chart review. Pt states unsure of recent wt changes. Note unable to determine recent wt hx, per chart review. Pt states current DM management is "Poor in here. It was good at home up until the last month or so." Note unable to determine recent HbA1c, per chart review. Pt states concerns of glucose control with current diet order. Note pt currently on CHO 60/gm 1snack diet, per chart review. ABNORMAL NUTRITION-RELATED LAB VALUES LOW: HIGH: Cl 108; BUN 27; cr 1.40; glu 267 Est. kcal needs: 8869-0468 kcal | 15-18 kcal/kg Est. Pro needs: 111-138 g Pro | 0.8-1.0 g Pro/kg PES STATEMENT: Inadequate oral intake (NI-2.1) related to loss of appetite as evidenced by pt interview. INTERVENTION: Continue with current diet order of CHO 60g/m 1snack diet. Pt verbalized concerns of consuming too many CHOs at her meals. Discussed with pt her diet and the amount of CHOs on her tray. Offered diet education on DM management, but pt declined at this time, feeling it was an issue with her insulin regimen, not diet. Will attempt to offer again prior to discharge. Will continue to follow and reassess as pt needs, intake, and status change. Shruthi Culver, MS RD LD
[2020-05-08] MEDS ORDERED: cefTRIAXone 1,000 MG IV (ROCEPHIN) VIAL ONE (15:38)
[2020-05-08] MEDS ORDERED: WATER (STERILE) FOR INJECTION 10 ML ONE (15:38)
[2020-05-08] MEDS: AZITHROMYCIN 500 MG/NS 250 ML IVPB IV SCH ×2 (15:46)
[2020-05-08] MEDS: cefTRIAXone 1,000 MG/SWFI 10 ML IV PUSH IV SCH ×2 (15:46)
--- NOTE | 2020-05-08 17:27 | Cardiology Progress Note ---
Cardiology SOAP Progress Note Subjective: Improved shortness of breath. Objective: I&O/Vital Signs 05/08/20 05/08/20 05/08/20 05/08/20 07:20 07:26 07:35 09:00 Temp 36.7 Pulse 93 111 Resp 22 B/P (MAP) 143/83 (103) Pulse Ox 92 94 94 O2 Delivery Nasal Cannula Nasal Cannula Nasal Cannula O2 Flow Rate 2.00 1.00 1.00 05/08/20 05/08/20 05/08/20 05/08/20 10:20 11:47 13:08 16:24 Temp 37.1 36.8 Pulse 114 95 106 Resp 18 20 B/P (MAP) 144/82 (102) 108/58 (75) Pulse Ox 92 95 92 O2 Delivery Room Air Nasal Cannula Nasal Cannula O2 Flow Rate 1.50 2.00 05/08/20 00:00 Intake Total 780 ml Balance 780 ml Weight (Pounds): 256 Weight (Ounces): 0.4 Weight (Calculated Kilograms): 114.997179 Constitutional: AAO x 3 Respiratory: chest is bilaterally symmetric, wheezing Cardiovascular: regular rate-rhythm, S1 and S2 Gastrointestional: soft, audible bowel sounds Extremities: normal range of motion, non-tender, normal inspection, no lower extremity edema bilateral Neurologic/Psychiatric: no motor/sensory deficits, alert, normal mood/affect, oriented x 3 Skin: normal color, warm/dry Results/Procedures: Labs Laboratory Tests 05/07/20 20:24: Glucometer 236H 05/08/20 05:53: White Blood Count 14.1H, Red Blood Count 3.74L, Hemoglobin 10.2L, Hematocrit 34L , Mean Corpuscular Volume 90, Mean Corpuscular Hemoglobin 27, Mean Corpuscular Hemoglobin Concent 30L, Red Cell Distribution Width 14.5, Platelet Count 231, Mean Platelet Volume 11.0, Immature Granulocyte % (Auto) 1, Neutrophils (%) (Auto) 74, Lymphocytes (%) (Auto) 19, Monocytes (%) (Auto) 4, Eosinophils (%) (Auto) 1, Basophils (%) (Auto) 0, Neutrophils # (Auto) 10.5H, Lymphocytes # (Auto) 2.7, Monocytes # (Auto) 0.6, Eosinophils # (Auto) 0.1, Basophils # (Auto) 0.1, Immature Granulocyte # (Auto) 0.1, Sodium Level 139, Potassium Level 4.2, Chloride Level 108H, Carbon Dioxide Level 17L, Anion Gap 14, Blood Urea Nitrogen 27H, Creatinine 1.40H, Estimat Glomerular Filtration Rate 38, BUN/Creatinine Ratio 19, Glucose Level 267H, Calcium Level 9.0, Corrected Calcium 9.3, Total Bilirubin 0.3, Aspartate Amino Transf (AST/SGOT) 18, Alanine Aminotransferase (ALT/SGPT) 18, Alkaline Phosphatase 80, Total Protein 6.6, Albumin 3.6 05/08/20 10:33: Glucometer 281H 05/08/20 16:30: Glucometer 184H Microbiology 05/06/20 Urine Culture - Final, Complete Escherichia coli 05/06/20 Influenza Types A,B Antigen (AKIKO) - Final, Complete 05/06/20 Blood Culture - Preliminary, Resulted No growth A/P: Assessment/Dx: Acute respiratory failure, Pneumonia, Small pericardial effusion Plan: Echocardiogram shows normal LV function with no significant diastolic dysfunction. Respiratory failure is likely due to pulmonary origin. Patient is being treated for pneumonia. Small pericardial effusion with no evidence of tamponade physiology. Thank you for your consultation. Please call me if you have any questions. Tito Casillas MD, FACP, FACC, FSCAI, FHRS, CCDS Interventional Cardiology Cardiac Electrophysiology Vascular Medicine and Endovascular Interventions Focused Exam Lactate Level 05/06/20 14:00: Lactic Acid Level 2.52*H 05/06/20 16:05: Lactic Acid Level 2.14*H 05/06/20 17:15: Lactic Acid Level 1.95 Gricel CASILLAS MD May 08, 2020 17:27
--- NOTE | 2020-05-08 20:36 | NUR ---
bs [address] reynaga about the 2 levemir orders order to dc levemir 50 units, continue with the levemir 10 bid
[2020-05-08] MEDS ORDERED: eZETimibe 10 MG (ZETIA) TABLET PO SCH (21:00)
[2020-05-08] MEDS ORDERED: amLODIPine 5 MG (NORVASC) TAB PO SCH (21:00)
[2020-05-08] MEDS ORDERED: MONTELUKAST 10 MG (SINGULAIR) TAB PO SCH (21:00)
[2020-05-08] MEDS ORDERED: FAMOTIDINE 20 MG (PEPCID) TABLET PO SCH (21:00)
[2020-05-08] MEDS: ENOXAPARIN 40 MG/0.4 ML (LOVENOX) SYR SC SCH (21:26)
[2020-05-09 00:50] VITALS: BP 133/72
[2020-05-09 01:04] VITALS: BP 133/72
[2020-05-09 03:57] VITALS: BP 149/81
[2020-05-09 05:49] LABS: BASOPHILS % (AUTO) 0 % (0-10); EOSINOPHILS # (AUTO) 0.1 10^3/uL (0.0-0.3); EOSINOPHILS % (AUTO) 1 % (0-10); HEMATOCRIT 32 % (35-52); HEMOGLOBIN 9.8 g/dL (11.5-16.0); LYMPHOCYTES # (AUTO) 2.9 10^3/uL (1.0-4.0); LYMPHOCYTES % (AUTO) 28 % (12-44); MEAN CORPUSCULAR HEMOGLOBIN 27 pg (25-34); MEAN CORPUSCULAR HGB CONC 31 g/dL (32-36); MEAN CORPUSCULAR VOLUME 88 fL (80-99); MEAN PLATELET VOLUME 10.4 fL (9.0-12.2); MONOCYTES # (AUTO) 0.5 10^3/uL (0.0-1.0); MONOCYTES % (AUTO) 5 % (0-12); NEUTROPHILS # (AUTO) 6.5 10^3/uL (1.8-7.8); NEUTROPHILS % (AUTO) 64 % (42-75); PLATELET COUNT 273 10^3/uL (130-400)
[2020-05-09 06:03] LABS: ALBUMIN 3.6 GM/DL (3.2-4.5); POTASSIUM 4.3 MMOL/L (3.6-5.0)
[2020-05-09 06:04] LABS: CALCIUM 8.9 MG/DL (8.5-10.1)
[2020-05-09 06:05] LABS: TOTAL PROTEIN 6.7 GM/DL (6.4-8.2)
[2020-05-09 06:07] LABS: BILIRUBIN,TOTAL 0.3 MG/DL (0.1-1.0)
[2020-05-09 06:09] LABS: CREATININE SERUM 1.29 MG/DL (0.60-1.30)
[2020-05-09] MEDS: PANTOPRAZOLE 20 MG TABLET (PROTONIX) PO SCH (06:23)
[2020-05-09] MEDS: MULTIVIT W/MINERALS TAB (THERAGRAN M) PO SCH (06:23)
[2020-05-09] MEDS: VITAMIN D3 25 MCG (1,000 UNITS) TABLET PO SCH (06:23)
[2020-05-09] MEDS: ASPIRIN E.C. 81 MG (ECOTRIN) TAB PO SCH (07:42)
[2020-05-09] MEDS: LORATADINE (CLARITIN) 10 MG TAB PO SCH (07:42)
[2020-05-09] MEDS: FUROSEMIDE 40 MG (LASIX) TAB PO SCH (07:42)
[2020-05-09] MEDS: inSUlin ASPART (NovoLOG) 1 UNIT/0.01 ML (CHARGE PER UNIT) SC SCH ×2 (07:42→13:50)
[2020-05-09] MEDS: KCL 10 MEQ TAB (MICRO K) PO SCH (07:43)
[2020-05-09] MEDS: SENNA W/DOCUSATE (SENOKOT S) TABLET PO SCH (07:45)
[2020-05-09] MEDS: LOSARTAN 50 MG (COZAAR) TAB PO SCH (07:45)
[2020-05-09] MEDS: RT-ALBUTEROL INHALER HFA (VENTOLIN HFA) 18 GM IH SCH ×2 (07:48→11:02)
[2020-05-09] MEDS: FLUTICASONE NASAL SPRAY (FLONASE) 16 GM BTL NS SCH (07:49)
[2020-05-09] MEDS: OXYBUTYNIN (DITROPAN) 5 MG TAB PO SCH (07:53)
[2020-05-09] MEDS ORDERED: glipiZIDE 5 MG (GLUCOTROL) TAB PO SCH (08:00)
[2020-05-09 08:18] VITALS: BP 176/92
--- NOTE | 2020-05-09 10:23 | Diagnostic Imaging Report ---
Indication: Lower respiratory infection PA and lateral chest There is a small patchy infiltrate in the periphery of the right lower lung. Left lung is clear. There are no effusions or pneumothoraces. Heart size and pulmonary vascularity are within normal limits. IMPRESSION: Small patchy infiltrate right lower lateral chest. Overall aeration has improved compared to 05/07/2020. Dictated by: Dictated on workstation # [id number]
--- NOTE | 2020-05-09 11:03 | NUR ---
pt has sleep apnea. pt does not have her cpap machine with her. Addendum: 05/09/20 at 1104 by IRIS CONDON RT Amended: Links added.
--- NOTE | 2020-05-09 11:15 | Progress Note ---
LOREE GUZMAN MED STUDENT 05/09/20 1115: Progress Note Mrs. Orosco was admitted from the ED on May 06. She presented to the ED with SOB, Cough, and pain with inspiration. She was worked up and was found to have a bilateral pneumonia. She was admitted and started on ABX. Over the course of her hospital stay she continued to improve every day. She had no major complications. She received physical therapy during her stay. She will be discharged on May 09 after a 3 day stay. Over that time she had significant improvement of her symptoms. She would have a sleep study that shows her O2 saturation is low while she is asleep. She will be sent home on ABX and followup with her regular doctors. Supervisory-Addendum Brief Verification & Attestation Participated in pt care: history, physical Personally performed: exam, history Care discussed with: other Procedures: n/a ARLENE ANDERSON DO 05/10/20 0633: Supervisory-Addendum Brief Verification & Attestation Participated in pt care: history, MDM, physical Personally performed: exam, history, MDM, supervision of care Care discussed with: Medical Student Procedures: n/a Results interpretation: Verified all documentation Verification and Attestation of Medical Student E/M Service A medical student performed and documented this service in my presence. I reviewed and verified all information documented by the medical student and made modifications to such information, when appropriate. I personally performed the physical exam and medical decision making. Arlene Anderson, May 10, 2020,06:33 LOREE GUZMAN MED STUDENT May 09, 2020 11:15 ARLENE ANDERSON DO May 10, 2020 06:33
[2020-05-09] MEDS ORDERED: INSU100I29 SC (11:48)
[2020-05-09] MEDS ORDERED: CEFD300C3 PO (11:48)
[2020-05-09] MEDS ORDERED: TIZA4TAB4 PO (11:48)
--- NOTE | 2020-05-09 11:49 | Discharge Summary ---
Discharge Summary Hospital Course Was the Problem List Reviewed?: Yes Problems/Dx: (1) Pneumonia Status: Acute Qualifiers: Qualified Codes: J18.9 - Pneumonia, unspecified organism (2) UTI (urinary tract infection) (3) Leg swelling (4) Constipated (5) Asthma Status: Chronic (6) Diabetes mellitus, type 2 Status: Chronic (7) Iron deficiency anemia due to chronic blood loss Status: Chronic (8) Environmental allergies Status: Chronic (9) Hyperlipidemia Status: Chronic (10) GERD (gastroesophageal reflux disease) Status: Chronic (11) Hypertension Status: Chronic (12) IRON DEFICIENCY ANEMIA,HISTORY OF POLYPS Hospital Course Date of Admission: May 06, 2020 at 15:50 Admission Diagnosis : Family Physician/Provider: Rian Shepherd Date of Discharge: 05/09/20 Discharge Diagnosis: PNA, acute on chronic UTI, DM, JOVANY Hospital Course: Mrs. Orosco was admitted from the ED on May 06. She presented to the ED with SOB, Cough, and pain with inspiration. She was worked up and was found to have a bilateral pneumonia. She was admitted and started on ABX. Over the course of her hospital stay she continued to improve every day. She had no major complications. She received physical therapy during her stay. She will be discharged on May 09 after a 3 day stay. Over that time she had significant improvement of her symptoms. She would have a sleep study that shows her O2 saturation is low while she is asleep. She will be sent home on ABX and followup with her regular doctors. Labs and Pending Lab Test: Laboratory Tests 05/08/20 16:30: Glucometer 184H 05/08/20 20:24: Glucometer 132H 05/09/20 05:33: White Blood Count 10.0, Red Blood Count 3.60L, Hemoglobin 9.8L, Hematocrit 32L, Mean Corpuscular Volume 88, Mean Corpuscular Hemoglobin 27, Mean Corpuscular Hemoglobin Concent 31L, Red Cell Distribution Width 14.4, Platelet Count 273, Mean Platelet Volume 10.4, Immature Granulocyte % (Auto) 1, Neutrophils (%) (Auto) 64, Lymphocytes (%) (Auto) 28, Monocytes (%) (Auto) 5, Eosinophils (%) (Auto) 1, Basophils (%) (Auto) 0, Neutrophils # (Auto) 6.5, Lymphocytes # (Auto) 2.9, Monocytes # (Auto) 0.5, Eosinophils # (Auto) 0.1, Basophils # (Auto) 0.0, Immature Granulocyte # (Auto) 0.1, Sodium Level 139, Potassium Level 4.3, Chlori de Level 105, Carbon Dioxide Level 22, Anion Gap 12, Blood Urea Nitrogen 25H, Creatinine 1.29, Estimat Glomerular Filtration Rate 41, BUN/Creatinine Ratio 19, Glucose Level 250H, Calcium Level 8.9, Corrected Calcium 9.2, Total Bilirubin 0.3, Aspartate Amino Transf (AST/SGOT) 21, Alanine Aminotransferase (ALT/SGPT) 19, Alkaline Phosphatase 80, Total Protein 6.7, Albumin 3.6, Procalcitonin 0.09 05/09/20 10:59: Glucometer 198H Microbiology 05/06/20 Urine Culture - Final, Complete Escherichia coli 05/06/20 Influenza Types A,B Antigen (AKIKO) - Final, Complete 05/06/20 Blood Culture - Preliminary, Resulted No growth Home Meds Active Reported Children's Cetirizine HCl (Cetirizine HCl) 10 Mg Tab.chew 10 Mg PO DAILY Losartan Potassium 50 Mg Tablet 50 Mg PO DAILY Multivitamin 1 Each Tablet 1 Each PO DAILY Ezetimibe 10 Mg Tablet 10 Mg PO HS Famotidine 20 Mg Tablet 20 Mg PO HS Oxybutynin Chloride 5 Mg Tablet 5 Mg PO BID Hydrocodone-Acetamin 7.5-325 (Hydrocodone/Acetaminophen) 1 Each Tablet 1 Ea PO Q8H PRN Levemir Flextouch (Insulin Detemir) 100 Unit/1 Ml Insuln.pen 50 Units SC BID Vitamin D3 (Cholecalciferol (Vitamin D3)) 25 Mcg Capsule 25 Mcg PO DAILY Potassium Chloride 10 Meq Capsule.er 10 Meq PO DAILY Furosemide 40 Mg Tablet 40 Mg PO DAILY Pantoprazole Sodium 20 Mg Tablet.dr 20 Mg PO DAILY Amlodipine Besylate 5 Mg Tablet 5 Mg PO HS Albuterol Sulfate 2.5 Mg/3 Ml Vial.neb 2.5 Mg NEB Q6H PRN Ventolin Hfa (Albuterol Sulfate) 18 Gm Hfa.aer.ad 2 Puff INH Q6H PRN Fluticasone Propionate 16 Gm [place].susp 2 [place] NS DAILY Aspirin EC (Aspirin) 81 Mg Tablet.dr 81 Mg PO DAILY Montelukast Sodium 10 Mg Tablet 10 Mg PO HS Atorvastatin Calcium 40 Mg Tablet 40 Mg PO HS Glipizide 10 Mg Tablet 20 Mg PO BID TAKES 2 (10MG) TABLETS Baclofen 20 Mg Tablet 20 Mg PO BID Assessment/Pt Instructions [facility] 1 week Discharge Planning: <30 minutes discharge planning Discharge Instructions Discharge Diet: ADA Diet Discharge Physical Examination Vital Signs Vital Signs Date Time Temp Pulse Resp B/P (MAP) Pulse Ox O2 Delivery O2 Flow Rate FiO2 05/09/20 11:02 97 05/09/20 08:18 36.6 94 18 176/92 (120) Room Air 05/09/20 00:50 05/08/20 22:24 21 General Appearance: No Apparent Distress, WD/WN, Chronically ill Respiratory: Lungs Clear Allergies: Coded Allergies: Choline Fenofibrate (Unverified Allergy, Unknown, 11/06/17) Phenylpropanolamine HCl (Unverified Allergy, Unknown, 11/08/12) amoxicillin trihydrate (Unverified Allergy, Unknown, 11/08/12) brompheniramine maleate (Unverified Allergy, Unknown, 11/08/12) buspirone HCl (Unverified Allergy, Unknown, 11/08/12) celecoxib (Unverified Allergy, Unknown, 11/08/12) meloxicam (Unverified Allergy, Unknown, 05/12/14) niacin (Unverified Allergy, Unknown, 11/08/12) potassium clavulanate (Unverified Allergy, Unknown, 11/08/12) simvastatin (Unverified Allergy, Unknown, 05/12/14) spironolactone (Unverified Allergy, Unknown, 11/08/12) Uncoded Allergies: MIXLACAM (Allergy, Unknown, 05/12/14) Discharge Summary Date of Admission May 06, 2020 at 15:50 Date of Discharge Discharge Date: May 09, 2020 Admission Diagnosis Assessment: PNA Resp insuff DM OOC HTN Plan: Tx to 4th Abx HLIVF Wrap legs Discharge Diagnosis Monitor labs Home O2 eval (1) Pneumonia Status: Acute Qualifiers: Qualified Codes: J18.9 - Pneumonia, unspecified organism (2) UTI (urinary tract infection) (3) Leg swelling (4) Constipated (5) Asthma Status: Chronic (6) Diabetes mellitus, type 2 Status: Chronic (7) Iron deficiency anemia due to chronic blood loss Status: Chronic (8) Environmental allergies Status: Chronic (9) Hyperlipidemia Status: Chronic (10) GERD (gastroesophageal reflux disease) Status: Chronic (11) Hypertension Status: Chronic (12) IRON DEFICIENCY ANEMIA,HISTORY OF POLYPS Clinical Quality Measures DVT/VTE Risk/Contraindication: Risk Factor Score Per Nursin RFS Level Per Nursing on Admit: 3=High BHUPENDRA ANDERSON DO May 09, 2020 11:48
--- NOTE | 2020-05-09 11:52 | NUR ---
pt did not have home cpap machine on while test was taken. pt has sleep apnea Addendum: 05/09/20 at 1153 by IRIS CONDON RT Amended: Links added.
--- NOTE | 2020-05-09 14:08 | NUR ---
pt does not need 02. pt did not desaturate during walk. Addendum: 05/09/20 at 1408 by IRIS CONDON RT Amended: Links added.
[2020-05-09] MEDS: AZITHROMYCIN 500 MG/NS 250 ML IVPB IV SCH ×2 (15:16)
[2020-05-09] MEDS: cefTRIAXone 1,000 MG/SWFI 10 ML IV PUSH IV SCH ×2 (15:16)
[2020-05-09 15:45] VITALS: BP 176/92
--- NOTE | 2020-05-09 16:01 | Physician Query Clarification ---
"Physician Query-General Query to Physician: The medical record reflects the following clinical scenario: History/Risk factors: Bilateral Pneumonia, UTI Clinical Findings: Temp 39.1, HR 125, RR 28, WBC 21.3, LA 2.52 Treatment: NS Fluid bolus, IV Abx, Question: What condition best reflects the above clinical scenario? Please document response in the Progress notes or Discharge Summary. 1. Sepsis present on admission due to pneumonia 2. Pneumonia (as currently documented) 3. Other , with explanation of the clinical findings 4. Clinically undetermined, no explanation for the clinical findings Please remember a lack of response to the above will prompt a phone page by CDI/coding staff In responding to this query, please exercise your independent professional judgment. The purpose of this communication is to more accurately reflect the complexity of your patients condition. The fact that a question is asked does not imply that any particular answer is desired or expected. Thank you for timely response to this clarification. Radhika Cuevas, MSN, RN RN Specialist-Clinical Doc Improvement CD -Health Info [facility] [address] [facility] t: [phone] | f: [phone] If you are unable to reach me at my extension, I may be working from home. Please contact me at [phone] PHYSICIAN RESPONSE: Based on the clinical findings in the record, please respond to the query above on this document as an addendum. Physician Response: Physician Response 1 If you have questions please contact: Supervisor Cold Rolling: Ext: Thank you for your time and cooperation. Clinical Perlite Grinder/Supervisor Cold Rolling This is a permanent part of the medical record RADHIKA CUEVAS May 09, 2020 16:01 BHUPENDRA ANDERSON DO May 09, 2020 19:56"
--- NOTE | 2020-05-09 18:51 | Cardiology Progress Note ---
Cardiology SOAP Progress Note Subjective: No cardiac complaints. Objective: I&O/Vital Signs Weight (Pounds): 256 Weight (Ounces): 0.4 Weight (Calculated Kilograms): 114.952641 Constitutional: AAO x 3 Respiratory: chest is bilaterally symmetric, wheezing Cardiovascular: regular rate-rhythm, S1 and S2 Gastrointestional: soft, audible bowel sounds Extremities: normal range of motion, non-tender, normal inspection, no lower extremity edema bilateral Neurologic/Psychiatric: no motor/sensory deficits, alert, normal mood/affect, oriented x 3 Skin: normal color, warm/dry Results/Procedures: Labs Microbiology 05/06/20 Urine Culture - Final, Complete Escherichia coli 05/06/20 Influenza Types A,B Antigen (AKIKO) - Final, Complete 05/06/20 Blood Culture - Preliminary, Resulted No growth A/P: Assessment/Dx: Acute respiratory failure, Pneumonia, Small pericardial effusion Plan: Echocardiogram shows normal LV function with no significant diastolic dysfunction. Respiratory failure is likely due to pulmonary origin. Patient is being treated for pneumonia. Small pericardial effusion with no evidence of tamponade physiology. Thank you for your consultation. Please call me if you have any questions. Tito Casillas MD, FACP, FACC, FSCAI, FHRS, CCDS Interventional Cardiology Cardiac Electrophysiology Vascular Medicine and Endovascular Interventions Gricel CASILLAS MD May 09, 2020 18:51
== END 2020-05-09 15:46 | disposition home or self-care (01) | DRG 871 ==
LOC: EDUNIT# 13:35 → ER 13:38 → EDLOC 15:50 → CSD 15:50 → 4TH 05-07 12:15
PROVIDERS: ADMIT Internal Medicine; ATTEND Internal Medicine
DX: A41.9 Sepsis, unspecified organism (principal); J15.9 Unspecified bacterial pneumonia; J96.00 Acute respiratory failure, unspecified whether with hypoxia or hypercapnia; J44.0 Chronic obstructive pulmonary disease with (acute) lower respiratory infection; N39.0 Urinary tract infection, site not specified; N17.9 Acute kidney failure, unspecified; I31.3 Pericardial effusion (noninflammatory); I11.0 Hypertensive heart disease with heart failure; Z20.828 Contact with and (suspected) exposure to other viral communicable diseases; I50.9 Heart failure, unspecified; E87.70 Fluid overload, unspecified; E11.65 Type 2 diabetes mellitus with hyperglycemia; E11.40 Type 2 diabetes mellitus with diabetic neuropathy, unspecified; G47.30 Sleep apnea, unspecified; K59.00 Constipation, unspecified; D50.0 Iron deficiency anemia secondary to blood loss (chronic); E78.00 Pure hypercholesterolemia, unspecified; K21.9 Gastro-esophageal reflux disease without esophagitis; M19.91 Primary osteoarthritis, unspecified site; M41.9 Scoliosis, unspecified; M54.9 Dorsalgia, unspecified; F32.9 Major depressive disorder, single episode, unspecified; J30.2 Other seasonal allergic rhinitis; E78.5 Hyperlipidemia, unspecified; Z96.653 Presence of artificial knee joint, bilateral; Z87.891 Personal history of nicotine dependence; Z86.010 Personal history of colon polyps; Z79.84 Long term (current) use of oral hypoglycemic drugs
CPT/HCPCS: 36415; 71045; 71046; 80053; 81000; 82962; 83605; 83690; 84145; 84484; 85007; 85025; 85027; 85379; 86141; 87040; 87077; 87088; 87186; 87635; 87804; 93306; 94640; 94660; 94760; 94761; 96361; 96365; 96367; 96368; 96375

== ENCOUNTER 2020-05-26 09:46 | Outpatient (RCR) | payer MEDICARE, MEDICAID, OTHER ==
[~2020-05-26 09:46] MED LIST changes: +CEFD300C3 PO; +CETI-240 PO; +EZET10TA49 PO; +FAMO20TA5 PO; +HYDR-3817 PO; +INSU100I29 SC; -MONT10TA26 PO; +MONT10TA32 PO; +MULT-1136 PO; +OXYB5TAB13 PO; +TIZA4TAB4 PO
[2020-05-26 09:49] LABS: BASOPHILS # (AUTO) 0.1 10^3/uL (0.0-0.1); BASOPHILS % (AUTO) 1 % (0-10); EOSINOPHILS # (AUTO) 0.1 10^3/uL (0.0-0.3); EOSINOPHILS % (AUTO) 1 % (0-10); HEMATOCRIT 35 % (35-52); HEMOGLOBIN 11.2 g/dL (11.5-16.0); LYMPHOCYTES # (AUTO) 2.5 10^3/uL (1.0-4.0); LYMPHOCYTES % (AUTO) 26 % (12-44); MEAN CORPUSCULAR HEMOGLOBIN 28 pg (25-34); MEAN CORPUSCULAR HGB CONC 32 g/dL (32-36); MEAN CORPUSCULAR VOLUME 87 fL (80-99); MEAN PLATELET VOLUME 10.9 fL (9.0-12.2); MONOCYTES # (AUTO) 0.6 10^3/uL (0.0-1.0); MONOCYTES % (AUTO) 6 % (0-12); NEUTROPHILS # (AUTO) 6.1 10^3/uL (1.8-7.8); NEUTROPHILS % (AUTO) 65 % (42-75); PLATELET COUNT 256 10^3/uL (130-400); WHITE BLOOD COUNT 9.4 10^3/uL (4.3-11.0)
[2020-05-26 10:05] LABS: ALBUMIN 3.8 GM/DL (3.2-4.5); BILIRUBIN,TOTAL 0.4 MG/DL (0.1-1.0); CALCIUM 8.9 MG/DL (8.5-10.1); CREATININE SERUM 1.34 MG/DL (0.60-1.30); POTASSIUM 4.7 MMOL/L (3.6-5.0); TOTAL PROTEIN 6.7 GM/DL (6.4-8.2)
== END 2020-07-23 13:55 | disposition home or self-care (01) ==
LOC: ONC 09:46
PROVIDERS: ATTEND Internal Medicine Hematology & Oncology
DX: D50.0 Iron deficiency anemia secondary to blood loss (chronic) (principal); I25.10 Atherosclerotic heart disease of native coronary artery without angina pectoris; I12.9 Hypertensive chronic kidney disease with stage 1 through stage 4 chronic kidney disease, or unspecified chronic kidney disease; E11.22 Type 2 diabetes mellitus with diabetic chronic kidney disease; E78.5 Hyperlipidemia, unspecified; G47.33 Obstructive sleep apnea (adult) (pediatric); N18.30 Chronic kidney disease, stage 3 unspecified; K28.9 Gastrojejunal ulcer, unspecified as acute or chronic, without hemorrhage or perforation; Z79.899 Other long term (current) drug therapy; Z79.82 Long term (current) use of aspirin; Z79.84 Long term (current) use of oral hypoglycemic drugs
CPT/HCPCS: 80053; 82728; 85025

== ENCOUNTER 2020-06-27 08:09 | Outpatient (CLI) | payer MEDICARE, MEDICAID ==
[~2020-06-27] VITALS: Ht 175 cm; Wt 118.0 kg
[2020-06-27 08:09] VITALS: BP 141/65
[~2020-06-27 08:09] MED LIST changes: -MONT10TA32 PO; +MONT10TA97 PO
[2020-06-27] MEDS ORDERED: diphenhydrAMINE 50 MG/ML INJ (BENADRYL) IV PRN (08:15)
[2020-06-27] MEDS ORDERED: BAMLANIVIMAB 700 MG in NS 200 ML IV ONE (08:15)
[2020-06-27] MEDS ORDERED: EPINEPHrine INJECTION 1 MG/ML AMP IM PRN (08:15)
[2020-06-27 09:47] VITALS: BP 139/51
== END 2020-06-27 10:49 ==
LOC: INFUSION 08:09
PROVIDERS: ATTEND Nurse Practitioner Family
DX: U07.1 COVID-19 (principal)

== ENCOUNTER → 2020-08-19 | Outpatient (CLI) | payer MEDICARE, MEDICAID ==
[~2020-08-19] MED LIST changes: +MONT10TA32 PO; -MONT10TA97 PO
[2020-08-19 10:26] LABS: BASOPHILS # (AUTO) 0.1 10^3/uL (0.0-0.1); BASOPHILS % (AUTO) 0 % (0-10); EOSINOPHILS # (AUTO) 0.2 10^3/uL (0.0-0.3); EOSINOPHILS % (AUTO) 1 % (0-10); HEMATOCRIT 35 % (35-52); HEMOGLOBIN 10.8 g/dL (11.5-16.0); LYMPHOCYTES # (AUTO) 2.3 10^3/uL (1.0-4.0); LYMPHOCYTES % (AUTO) 21 % (12-44); MEAN CORPUSCULAR HEMOGLOBIN 27 pg (25-34); MEAN CORPUSCULAR HGB CONC 31 g/dL (32-36); MEAN CORPUSCULAR VOLUME 88 fL (80-99); MEAN PLATELET VOLUME 10.2 fL (9.0-12.2); MONOCYTES # (AUTO) 0.6 10^3/uL (0.0-1.0); MONOCYTES % (AUTO) 5 % (0-12); NEUTROPHILS # (AUTO) 8.1 10^3/uL (1.8-7.8); NEUTROPHILS % (AUTO) 72 % (42-75); PLATELET COUNT 264 10^3/uL (130-400); WHITE BLOOD COUNT 11.3 10^3/uL (4.3-11.0)
[2020-08-19 10:52] LABS: ALBUMIN 3.8 GM/DL (3.2-4.5); BILIRUBIN,TOTAL 0.3 MG/DL (0.1-1.0); CALCIUM 8.7 MG/DL (8.5-10.1); CREATININE SERUM 1.28 MG/DL (0.60-1.30); POTASSIUM 4.6 MMOL/L (3.6-5.0); TOTAL PROTEIN 6.6 GM/DL (6.4-8.2)
== END ==
LOC: ONC 10:15
PROVIDERS: ATTEND Internal Medicine Hematology & Oncology
DX: D50.9 Iron deficiency anemia, unspecified (principal); K92.2 Gastrointestinal hemorrhage, unspecified; I12.9 Hypertensive chronic kidney disease with stage 1 through stage 4 chronic kidney disease, or unspecified chronic kidney disease; N18.30 Chronic kidney disease, stage 3 unspecified; E78.5 Hyperlipidemia, unspecified
CPT/HCPCS: 80053; 82728; 85025; G0463; 99213

== ENCOUNTER → 2020-09-23 | Outpatient (CLI) | payer MEDICARE, MEDICAID ==
--- NOTE | 2020-09-23 11:43 | Diagnostic Imaging Report ---
INDICATION: Postmenopausal state. COMPARISON: September 19, 2018. FINDINGS: AP Spine L1-L4: [BMD (g/cm2): 1.419] [T-Score: 1.8] [Z-Score: 2.3] [BMD Previous: 1.408] [BMD % Change: 0.8] LT Hip Neck: [BMD (g/cm2): 0.904] [T-Score: -1.0] [Z-Score: -0.1] LT Hip Total: [BMD (g/cm2):0.976] [T-Score:-0.2] [Z-Score: 0.3] [BMD Previous: 1.017] [BMD % Change: -4.0] RT Hip Neck: [BMD (g/cm2):0.982] [T-Score:-0.4] [Z-Score:0.4] RT Hip Total: [BMD (g/cm2):1.047] [T-score:0.3] [Z-Score:0.8] [BMD Previous:1.071] [BMD % Change:-2.2] *Indicates significant change from prior examination based on 95% confidence level. World Health Organization criteria for BMD interpretation classify patients as Normal (T-score at or above -1.0), Osteopenic (T-score between -1.0 and -2.5) or Osteoporotic (T-score at or below -2.5). LIMITATIONS AND MODIFICATION: None. IMPRESSION: 1. Normal bone mineral density. 2. No significant change in bone mineral density since prior examination. 3. See below National Osteoporosis Foundation guidelines on when to potentially initiate pharmacologic therapy. Based on the National Osteoporosis Foundation Guidelines, pharmacologic treatment should be initiated in any of the following, unless clinical conditions suggest otherwise: * Any patient with prior fragility fracture of the hip or vertebrae. A spine fracture indicates 5X risk for subsequent spine fracture and 2X risk for subsequent hip fracture. * Osteoporosis (T-score <-2.5). * Postmenopausal women and men age 50 and older with low bone mass/osteopenia (T-score between -1.0 and -2.5) by DXA and 10-year major osteoporotic fracture greater than 20% or a 10-year probability of hip fracture greater than 3%. These fracture risks are supplied above in the FRAX score, if applicable. * Clinician judgement and/or patient preferences may indicate treatment for people with 10-year fracture probabilities above or below these levels. Dictated by: Dictated on workstation # [id number]
== END ==
LOC: RAD 10:48
PROVIDERS: ATTEND Nurse Practitioner Family
DX: Z00.00 Encounter for general adult medical examination without abnormal findings (principal); Z78.0 Asymptomatic menopausal state
CPT/HCPCS: 77080

== ENCOUNTER → 2020-09-23 | Outpatient (CLI) | payer MEDICARE, MEDICAID | LOC: CARD 10:45 | PROVIDERS: ATTEND Physician Assistant | DX: I25.10 Atherosclerotic heart disease of native coronary artery without angina pectoris (principal); I11.9 Hypertensive heart disease without heart failure; I08.2 Rheumatic disorders of both aortic and tricuspid valves | CPT/HCPCS: 93306 ==

== ENCOUNTER → 2020-10-29 | Outpatient (CLI) | payer MEDICARE, MEDICAID ==
[~2020-10-29] VITALS: Ht 175 cm; Wt 116.0 kg
[~2020-10-29] MED LIST changes: +REGADENOSON 0.4 MG/5 ML SYR (LEXISCAN) IV ONE
[2020-10-29] MEDS: CATHETER FLUSH 10 ML SYR IV PRN ×2 (11:32→13:09)
[2020-10-29 13:06] VITALS: BP 155/89
--- NOTE | 2020-10-29 15:34 | Cardiology Stress Test Report ---
Stress Test Report Date of Procedure/Referring: Date of Procedure: October 29, 2020 PCP Josephine Bailey Admitting Physician Center/[facility] Indications: CAD Baseline Heart Rate: 83 Baseline Blood Pressure: Blood Pressure Systolic: 155 Blood Pressure Diastolic: 89 Baseline Vitals Vital Signs Date Time Temp Pulse Resp B/P (MAP) Pulse Ox O2 Delivery O2 Flow Rate FiO2 10/29/20 13:06 86 16 155/89 (111) 98 Simple Mask Baseline EKG: Baseline EKG: NSR Summary After explaining the procedure to the patient, she signed a consent and then brought to the stress nuclear laboratory. Patient received 0.4 mg Lexiscan for stress test, ECG, heart rate and blood pressure were monitored continuously. Resting and stress dose of radio tracer were injected, imaging was acquired and reviewed in short axis, horizontal long axis and vertical long axis views. TID: 1.09 SSS: 12 SDS: 2 EF: 57 1. Patient tolerated Lexiscan well 2. Breast attenuation affecting the quality of the images, there is decreased uptake involving the whole anterior wall anterolateral wall which is fixed, most probably secondary to the breast attenuation. Overall nondiagnostic images. 3. Normal left ventricular size, EF 57% LISA PAIGE MD October 29, 2020 15:34
== END ==
LOC: CARD 11:04
PROVIDERS: ATTEND Physician Assistant
DX: I25.10 Atherosclerotic heart disease of native coronary artery without angina pectoris (principal); I10 Essential (primary) hypertension
CPT/HCPCS: 78452; 93017; A9502

== ENCOUNTER 2020-11-19 15:24 | Outpatient (RCR) | payer MEDICARE, MEDICAID ==
[~2020-11-19 15:24] MED LIST changes: +FERRIC CARBOXYMALTOSE (CANCER) 750 MG in NS (IVPB) CANCER CENTER 250 ML IV SCH; -REGADENOSON 0.4 MG/5 ML SYR (LEXISCAN) IV ONE
[2020-11-19 15:35] LABS: BASOPHILS # (AUTO) 0.1 10^3/uL (0.0-0.1); BASOPHILS % (AUTO) 1 % (0-10); EOSINOPHILS # (AUTO) 0.1 10^3/uL (0.0-0.3); EOSINOPHILS % (AUTO) 1 % (0-10); HEMATOCRIT 36 % (35-52); HEMOGLOBIN 11.6 g/dL (11.5-16.0); LYMPHOCYTES # (AUTO) 2.9 10^3/uL (1.0-4.0); LYMPHOCYTES % (AUTO) 33 % (12-44); MEAN CORPUSCULAR HEMOGLOBIN 29 pg (25-34); MEAN CORPUSCULAR HGB CONC 32 g/dL (32-36); MEAN CORPUSCULAR VOLUME 90 fL (80-99); MEAN PLATELET VOLUME 9.9 fL (9.0-12.2); MONOCYTES # (AUTO) 0.7 10^3/uL (0.0-1.0); MONOCYTES % (AUTO) 8 % (0-12); NEUTROPHILS # (AUTO) 4.9 10^3/uL (1.8-7.8); NEUTROPHILS % (AUTO) 56 % (42-75); PLATELET COUNT 264 10^3/uL (130-400); WHITE BLOOD COUNT 8.8 10^3/uL (4.3-11.0)
[2020-11-19 16:01] LABS: BILIRUBIN,TOTAL 0.4 MG/DL (0.1-1.0); CALCIUM 9.4 MG/DL (8.5-10.1); CREATININE SERUM 1.46 MG/DL (0.60-1.30); POTASSIUM 4.4 MMOL/L (3.6-5.0)
== END 2020-11-25 | disposition home or self-care (01) ==
LOC: ONC 15:24
PROVIDERS: ATTEND Internal Medicine Hematology & Oncology
DX: Z51.11 Encounter for antineoplastic chemotherapy (principal); D50.9 Iron deficiency anemia, unspecified; I12.9 Hypertensive chronic kidney disease with stage 1 through stage 4 chronic kidney disease, or unspecified chronic kidney disease; E11.22 Type 2 diabetes mellitus with diabetic chronic kidney disease; D63.1 Anemia in chronic kidney disease; N18.30 Chronic kidney disease, stage 3 unspecified; I25.10 Atherosclerotic heart disease of native coronary artery without angina pectoris; E78.5 Hyperlipidemia, unspecified; J45.909 Unspecified asthma, uncomplicated; K92.2 Gastrointestinal hemorrhage, unspecified; J15.9 Unspecified bacterial pneumonia
CPT/HCPCS: 80053; 82728; 85025; 96365; 99213

== ENCOUNTER 2020-12-09 05:28 | Outpatient (RCR) | payer MEDICARE, MEDICAID ==
[~2020-12-09] VITALS: Ht 175.3 cm; Wt 118.0 kg
[~2020-12-09 05:28] MED LIST changes: -FERRIC CARBOXYMALTOSE (CANCER) 750 MG in NS (IVPB) CANCER CENTER 250 ML IV SCH
== END 2020-12-10 09:55 | disposition home or self-care (01) ==
LOC: PREOP 05:28
PROVIDERS: ATTEND Surgery
DX: Z01.812 Encounter for preprocedural laboratory examination (principal); D50.9 Iron deficiency anemia, unspecified; K62.5 Hemorrhage of anus and rectum; Z20.822 Contact with and (suspected) exposure to COVID-19
CPT/HCPCS: 87635

== ENCOUNTER 2020-12-11 11:38 | Day surgery (SDC) | payer MEDICARE, MEDICAID ==
[~2020-12-11] VITALS: Ht 175.3 cm; Wt 118.0 kg
[2020-12-11] MEDS ORDERED: LACTATED RINGERS 1,000 ML IV STA (11:47)
[2020-12-11] MEDS ORDERED: LACTATED RINGERS 1,000 ML IV ONE (11:50)
[2020-12-11] MEDS ORDERED: HURRICAINE EXT TUBE (BENZOCAINE) XX PRN (12:00)
[2020-12-11 12:03] VITALS: BP 170/89
[2020-12-11] MEDS ORDERED: MIDAZOLAM 2 MG/2 ML (VERSED) VIAL ONE (12:29)
[2020-12-11] MEDS ORDERED: PROPOFOL INJECTION 50 ML IV ONE ×2 (12:30→12:45)
--- NOTE | 2020-12-11 12:36 | Progress Note-Pre Operative ---
Pre-Operative Progress Note H&P Reviewed The H&P was reviewed, patient examined and no changes noted. Date Seen by Provider: Dec 11, 2020 Time Seen by Provider: : Date H&P Reviewed: Dec 11, 2020 Time H&P Reviewed: : Pre-Operative Diagnosis: iron def anemia, bright red blood per rectum DAVID SMTYH DO Dec 11, 2020 12:36
[2020-12-11 13:20] VITALS: BP 146/73
--- NOTE | 2020-12-11 13:20 | Progress Note-Post Operative ---
Post-Operative Progess Note Surgeon (s)/Rn Hemo Dialysis (s) Surgeon DAVID SMYTH DO Rn Hemo Dialysis: na Pre-Operative Diagnosis iron def anemia, bright red blood per rectum Post-Operative Diagnosis hiatal hernia, gastric polyps, diverticulosis, int hemorrhoids, sigmoid polyp Procedure & Operative Findings Date of Procedure 12/11/20 Procedure Performed/Findings egd c biopsy, colonoscopy c hot bx polypectomy Anesthesia Type per mda Estimated Blood Loss Estimated blood loss (mL): none Specimens/Packing Specimens Removed ge, sigmoid polyp DAVID SMYTH DO Dec 11, 2020 13:20
--- NOTE | 2020-12-11 13:21 | Discharge Inst-Simple/Standard ---
Discharge Inst-Standard Patient Instructions/Follow Up Plan of Care/Instructions/FU: 2 weeks Jose Activity as Tolerated: Yes Discharge Diet: Regular Diet (high fiber) DAVID SMYTH DO Dec 11, 2020 13:21
[2020-12-11 13:25] VITALS: BP 147/78
--- NOTE | 2020-12-11 13:25 | Anesthesia-General Post-Op ---
MAC Patient Condition Mental Status/LOC: Same as Preop Cardiovascular: Satisfactory Nausea/Vomiting: Absent Respiratory: Satisfactory Pain: Controlled Complications: Absent Post Op Complications Complications None Follow Up Care/Instructions Patient Instructions None needed. Anesthesiology Discharge Order Discharge Order Patient is doing well, no complaints, stable vital signs, no apparent adverse anesthesia problems. BETHEL GEE DO Dec 11, 2020 13:25
[2020-12-11 13:50] VITALS: BP 160/85
[2020-12-11 14:00] VITALS: BP 160/85
--- NOTE | 2020-12-11 17:49 | OPERATIVE REPORT ---
DATE OF SERVICE: 12/11/2020 PREOPERATIVE DIAGNOSES: Iron deficiency anemia, bright red blood per rectum. POSTOPERATIVE DIAGNOSES: Hiatal hernia, gastric polyps, diverticulosis, internal hemorrhoids, sigmoid colon polyp. PROCEDURE: EGD with biopsy, colonoscopy with hot biopsy polypectomy. SURGEON: Giovanni Garcia DO ANESTHESIA: Per MDA. ESTIMATED BLOOD LOSS: None. COMPLICATIONS: None. INDICATIONS: The patient is a 70-year-old female with iron deficiency anemia, bright red blood per rectum. She understands risks and benefits of procedure and wished to proceed. Consent was signed in the chart. DESCRIPTION OF PROCEDURE: The patient was taken to the endoscopy suite, placed in left lateral recumbent position. Timeout was performed. Scope was inserted in mouth, down the esophagus, stomach and into the duodenum without difficulty. There were no polyps, masses or ulcerations within the duodenum. Scope was slowly retracted back to stomach where no masses or ulcerations present within the stomach. There were several benign appearing polyps within the stomach. Scope was retroflexed noting a small hiatal hernia. No other pathology noted. Scope was returned to its normal position, slowly withdrawn to distal esophagus. Slight erythematous changes present. Biopsy of the GE junction was obtained. Scope was then slowly retracted back until completely removed, noting no other pathology. Digital rectal exam was performed noting internal hemorrhoids. Scope was inserted in the rectum, advanced all the way to cecum with minimal difficulty. Prep was adequate with irrigation and suction. Scope was then slowly retracted back. No polyps, masses or ulcerations within the cecum, ascending, transverse and descending colon. In the sigmoid colon, sigmoid polyp was present, which hot biopsy polypectomy was performed. Multiple diverticula present throughout the sigmoid colon. Once in the rectum, scope was retroflexed noting internal hemorrhoids. No other pathology. Scope was returned to its normal position, slowly withdrawn until completely removed. The patient tolerated procedure well without any complications. She was taken to recovery room in stable condition. RECOMMENDATIONS: The patient will need repeat colonoscopy in 5 years. Any issues before that be seen at that time and consider repeating. The patient has no active bleeding at this time. Diverticular source or internal hemorrhoids could be source. If continues to be anemic, we would consider capsule endoscopy to evaluate the small bowel or consider repeating endoscopy as well. The patient will follow up in the office in couple of weeks to discuss pathology results. Job ID: [id number] DocumentID: [id number] Dictated Date: 12/11/2020 13:25:26 Emt Date: 12/11/2020 17:49:21 Dictated By: DO CHARO FULTON
== END 2020-12-11 14:00 | disposition home or self-care (01) ==
LOC: ENDO 11:38
PROVIDERS: ATTEND Surgery
DX: K63.5 Polyp of colon (principal); K44.9 Diaphragmatic hernia without obstruction or gangrene; K31.7 Polyp of stomach and duodenum; K57.30 Diverticulosis of large intestine without perforation or abscess without bleeding; K64.8 Other hemorrhoids; K21.00 Gastro-esophageal reflux disease with esophagitis, without bleeding; J45.909 Unspecified asthma, uncomplicated; G47.33 Obstructive sleep apnea (adult) (pediatric); E11.40 Type 2 diabetes mellitus with diabetic neuropathy, unspecified; E66.9 Obesity, unspecified; Z68.38 Body mass index [BMI] 38.0-38.9, adult; I12.9 Hypertensive chronic kidney disease with stage 1 through stage 4 chronic kidney disease, or unspecified chronic kidney disease; E11.22 Type 2 diabetes mellitus with diabetic chronic kidney disease; N18.30 Chronic kidney disease, stage 3 unspecified; E78.5 Hyperlipidemia, unspecified; D63.1 Anemia in chronic kidney disease; M19.90 Unspecified osteoarthritis, unspecified site; D50.9 Iron deficiency anemia, unspecified; Z79.899 Other long term (current) drug therapy; Z79.82 Long term (current) use of aspirin; Z79.02 Long term (current) use of antithrombotics/antiplatelets; Z87.891 Personal history of nicotine dependence
CPT/HCPCS: 88305

== ENCOUNTER → 2021-01-02 | Outpatient (CLI) | payer MEDICARE, MEDICAID ==
[~2021-01-02] MED LIST changes: -SULF1TAB35 PO; +SULF1TAB38 PO
--- NOTE | 2021-01-02 13:14 | Diagnostic Imaging Report ---
EXAMINATION: Radiographs of the spine for assessment of scoliosis, 4 views. COMPARISON: None. HISTORY: 70-year-old female, back pain. FINDINGS: There are substantial technical limitations of the exam. The thoracic and lumbar spine are not well seen on frontal view evaluation. There is no obvious scoliosis. There are at least mild degenerative changes of the cervical spine. The thoracic spine and lumbar spine are not well evaluated. There are also limitations of the exam relating to single frontal view technique. IMPRESSION: 1. Substantially technically limited exam. 2. No evidence of scoliosis. 3. There are at least mild degenerative changes of the cervical spine. The thoracic and lumbar spine are not well assessed. Dictated by: Dictated on workstation # [id number]
== END ==
LOC: RAD 11:42
PROVIDERS: ATTEND Nurse Practitioner
DX: M54.6 Pain in thoracic spine (principal)
CPT/HCPCS: 72081

== ENCOUNTER → 2021-02-12 | Outpatient (CLI) | payer MEDICARE, MEDICAID ==
[~2021-02-12] MED LIST changes: +RT-ALBUTEROL SULF 2.5 MG/3 ML PRE-MIX VIAL INH ONE
== END ==
LOC: RT 11:00
PROVIDERS: ATTEND Nurse Practitioner Family
DX: J45.909 Unspecified asthma, uncomplicated (principal)
CPT/HCPCS: 94060; 94726; 94729

== ENCOUNTER 2021-04-24 10:54 | Outpatient (RCR) | payer MEDICARE, MEDICAID ==
[~2021-04-24 10:54] MED LIST changes: +MONT-40 PO; -MONT10TA32 PO; -POTA10TA36 PO; +POTA10TA37 PO; -RT-ALBUTEROL SULF 2.5 MG/3 ML PRE-MIX VIAL INH ONE; +TIZA-186 PO; -TIZA4TAB4 PO
== END 2021-06-19 | disposition home or self-care (01) ==
PROVIDERS: ATTEND Anesthesiology Pain Medicine
DX: M47.814 Spondylosis without myelopathy or radiculopathy, thoracic region (principal); I11.9 Hypertensive heart disease without heart failure; J45.909 Unspecified asthma, uncomplicated; E11.9 Type 2 diabetes mellitus without complications

== ENCOUNTER 2021-05-21 10:52 | Outpatient (RCR) | payer MEDICARE, MEDICAID ==
[2021-02-25 10:19] LABS: BASOPHILS # (AUTO) 0.1 10^3/uL (0.0-0.1); BASOPHILS % (AUTO) 1 % (0-10); EOSINOPHILS # (AUTO) 0.1 10^3/uL (0.0-0.3); EOSINOPHILS % (AUTO) 1 % (0-10); HEMATOCRIT 38 % (35-52); HEMOGLOBIN 11.7 g/dL (11.5-16.0); LYMPHOCYTES # (AUTO) 2.6 10^3/uL (1.0-4.0); LYMPHOCYTES % (AUTO) 30 % (12-44); MEAN CORPUSCULAR HEMOGLOBIN 29 pg (25-34); MEAN CORPUSCULAR HGB CONC 31 g/dL (32-36); MEAN CORPUSCULAR VOLUME 91 fL (80-99); MEAN PLATELET VOLUME 10.5 fL (9.0-12.2); MONOCYTES # (AUTO) 0.5 10^3/uL (0.0-1.0); MONOCYTES % (AUTO) 6 % (0-12); NEUTROPHILS # (AUTO) 5.6 10^3/uL (1.8-7.8); NEUTROPHILS % (AUTO) 63 % (42-75); PLATELET COUNT 249 10^3/uL (130-400); WHITE BLOOD COUNT 8.9 10^3/uL (4.3-11.0)
[2021-02-25 10:38] LABS: ALBUMIN 3.9 GM/DL (3.2-4.5); BILIRUBIN,TOTAL 0.3 MG/DL (0.1-1.0); CALCIUM 9.6 MG/DL (8.5-10.1); CREATININE SERUM 1.16 MG/DL (0.60-1.30); POTASSIUM 4.6 MMOL/L (3.6-5.0); TOTAL PROTEIN 6.7 GM/DL (6.4-8.2)
[2021-05-21 11:03] LABS: ABSOLUTE RETIC # 80 10e9/uL (24-90); BASOPHILS # (AUTO) 0.1 10^3/uL (0.0-0.1); BASOPHILS % (AUTO) 1 % (0-10); EOSINOPHILS # (AUTO) 0.1 10^3/uL (0.0-0.3); EOSINOPHILS % (AUTO) 1 % (0-10); HEMATOCRIT 40 % (35-52); HEMOGLOBIN 13.2 g/dL (11.5-16.0); LYMPHOCYTES # (AUTO) 1.3 10^3/uL (1.0-4.0); LYMPHOCYTES % (AUTO) 14 % (12-44); MEAN CORPUSCULAR HEMOGLOBIN 29 pg (25-34); MEAN CORPUSCULAR HGB CONC 33 g/dL (32-36); MEAN CORPUSCULAR VOLUME 87 fL (80-99); MEAN PLATELET VOLUME 10.3 fL (9.0-12.2); MONOCYTES # (AUTO) 0.8 10^3/uL (0.0-1.0); MONOCYTES % (AUTO) 8 % (0-12); NEUTROPHILS # (AUTO) 7.2 10^3/uL (1.8-7.8); NEUTROPHILS % (AUTO) 76 % (42-75); PLATELET COUNT 261 10^3/uL (130-400); RETICULOCYTE % 1.72 % (0.50-2.40); WHITE BLOOD COUNT 9.4 10^3/uL (4.3-11.0)
[2021-05-21 11:23] LABS: ALBUMIN 3.9 GM/DL (3.2-4.5); BILIRUBIN,TOTAL 0.5 MG/DL (0.1-1.0); CALCIUM 9.3 MG/DL (8.5-10.1); CREATININE SERUM 1.29 MG/DL (0.60-1.30); POTASSIUM 4.2 MMOL/L (3.6-5.0)
== END 2021-05-26 | disposition home or self-care (01) ==
LOC: ONC 10:52
PROVIDERS: ATTEND Internal Medicine Hematology & Oncology
DX: D50.9 Iron deficiency anemia, unspecified (principal); I65.23 Occlusion and stenosis of bilateral carotid arteries; I12.9 Hypertensive chronic kidney disease with stage 1 through stage 4 chronic kidney disease, or unspecified chronic kidney disease; E11.22 Type 2 diabetes mellitus with diabetic chronic kidney disease; D63.1 Anemia in chronic kidney disease; N18.30 Chronic kidney disease, stage 3 unspecified; I25.10 Atherosclerotic heart disease of native coronary artery without angina pectoris; K44.9 Diaphragmatic hernia without obstruction or gangrene; E78.5 Hyperlipidemia, unspecified; E66.9 Obesity, unspecified; Z68.37 Body mass index [BMI] 37.0-37.9, adult
CPT/HCPCS: 80053; 82728; 85025; 85045; 99213

== ENCOUNTER 2021-05-28 10:49 | Outpatient (RCR) | payer MEDICARE, MEDICAID | END 2021-06-19 | disposition home or self-care (01) | LOC: ONC 10:49 | PROVIDERS: ATTEND Internal Medicine Hematology & Oncology | DX: D50.0 Iron deficiency anemia secondary to blood loss (chronic) (principal); I65.23 Occlusion and stenosis of bilateral carotid arteries; I12.9 Hypertensive chronic kidney disease with stage 1 through stage 4 chronic kidney disease, or unspecified chronic kidney disease; E11.22 Type 2 diabetes mellitus with diabetic chronic kidney disease; D63.1 Anemia in chronic kidney disease; N18.30 Chronic kidney disease, stage 3 unspecified; I25.10 Atherosclerotic heart disease of native coronary artery without angina pectoris; K44.9 Diaphragmatic hernia without obstruction or gangrene; E78.5 Hyperlipidemia, unspecified; E66.9 Obesity, unspecified; Z68.37 Body mass index [BMI] 37.0-37.9, adult | CPT/HCPCS: 99213 ==

== ENCOUNTER → 2021-08-11 | Outpatient (CLI) | payer MEDICARE, MEDICAID ==
--- NOTE | 2021-08-11 13:00 | Diagnostic Imaging Report ---
PROCEDURE: US Renal Bilateral. TECHNIQUE: Multiple Real-time grayscale images were obtained over the kidneys in various projections bilaterally. INDICATION: Acute cystitis without hematuria. FINDINGS: The right kidney measures 12.6 x 5.4 x 3.8 cm and the left kidney measures 11.9 x 5.6 x 5.1 cm. Cortical thickness and echogenicity are normal bilaterally. There is a cyst in the mid right kidney of approximately 12 mm x 15 mm in size. No calculus or hydronephrosis is seen. There is a moderate amount of debris in the urinary bladder which shows a volume of 324 mL. No post void residual bladder volume is seen. Bilateral ureteral jets were visualized. IMPRESSION: 1. Small right renal cyst. No calculus or hydronephrosis is detected. 2. Bladder debris, perhaps owing to cystitis. Dictated by: Dictated on workstation # [id number]
== END ==
LOC: RAD 10:45
PROVIDERS: ATTEND Nurse Practitioner Family
DX: N30.00 Acute cystitis without hematuria (principal); N28.1 Cyst of kidney, acquired
CPT/HCPCS: 76770

== ENCOUNTER 2021-08-26 09:33 | Outpatient (RCR) | payer MEDICARE, MEDICAID ==
[2021-08-19 10:11] LABS: BASOPHILS # (AUTO) 0.1 10^3/uL (0.0-0.1); BASOPHILS % (AUTO) 1 % (0-10); EOSINOPHILS # (AUTO) 0.1 10^3/uL (0.0-0.3); EOSINOPHILS % (AUTO) 1 % (0-10); HEMATOCRIT 42 % (35-52); HEMOGLOBIN 13.6 g/dL (11.5-16.0); LYMPHOCYTES # (AUTO) 2.5 10^3/uL (1.0-4.0); LYMPHOCYTES % (AUTO) 24 % (12-44); MEAN CORPUSCULAR HEMOGLOBIN 29 pg (25-34); MEAN CORPUSCULAR HGB CONC 33 g/dL (32-36); MEAN CORPUSCULAR VOLUME 88 fL (80-99); MEAN PLATELET VOLUME 10.4 fL (9.0-12.2); MONOCYTES # (AUTO) 0.6 10^3/uL (0.0-1.0); MONOCYTES % (AUTO) 6 % (0-12); NEUTROPHILS # (AUTO) 7.2 10^3/uL (1.8-7.8); NEUTROPHILS % (AUTO) 69 % (42-75); PLATELET COUNT 258 10^3/uL (130-400); WHITE BLOOD COUNT 10.4 10^3/uL (4.3-11.0)
[2021-08-19 10:32] LABS: ALBUMIN 4.1 GM/DL (3.2-4.5); BILIRUBIN,TOTAL 0.5 MG/DL (0.1-1.0); CALCIUM 9.6 MG/DL (8.5-10.1); CREATININE SERUM 1.4 MG/DL (0.60-1.30); POTASSIUM 4.1 MMOL/L (3.6-5.0); TOTAL PROTEIN 7.1 GM/DL (6.4-8.2)
== END 2021-09-17 | disposition home or self-care (01) ==
LOC: ONC 09:33
PROVIDERS: ATTEND Internal Medicine Hematology & Oncology
DX: D50.0 Iron deficiency anemia secondary to blood loss (chronic) (principal); I65.23 Occlusion and stenosis of bilateral carotid arteries; I12.9 Hypertensive chronic kidney disease with stage 1 through stage 4 chronic kidney disease, or unspecified chronic kidney disease; E11.22 Type 2 diabetes mellitus with diabetic chronic kidney disease; D63.1 Anemia in chronic kidney disease; N18.30 Chronic kidney disease, stage 3 unspecified; I25.10 Atherosclerotic heart disease of native coronary artery without angina pectoris; K44.9 Diaphragmatic hernia without obstruction or gangrene; E78.5 Hyperlipidemia, unspecified; E66.9 Obesity, unspecified; Z68.37 Body mass index [BMI] 37.0-37.9, adult
CPT/HCPCS: 36415; 80053; 82728; 85025; 99213

== ENCOUNTER 2021-11-25 09:47 | Outpatient (RCR) | payer MEDICARE, MEDICAID ==
[2021-11-18 10:49] LABS: BASOPHILS # (AUTO) 0.1 10^3/uL (0.0-0.1); BASOPHILS % (AUTO) 1 % (0-10); EOSINOPHILS # (AUTO) 0.1 10^3/uL (0.0-0.3); EOSINOPHILS % (AUTO) 1 % (0-10); HEMATOCRIT 40 % (35-52); HEMOGLOBIN 12.8 g/dL (11.5-16.0); LYMPHOCYTES # (AUTO) 2.9 10^3/uL (1.0-4.0); LYMPHOCYTES % (AUTO) 30 % (12-44); MEAN CORPUSCULAR HEMOGLOBIN 29 pg (25-34); MEAN CORPUSCULAR HGB CONC 32 g/dL (32-36); MEAN CORPUSCULAR VOLUME 89 fL (80-99); MEAN PLATELET VOLUME 10.4 fL (9.0-12.2); MONOCYTES # (AUTO) 0.7 10^3/uL (0.0-1.0); MONOCYTES % (AUTO) 7 % (0-12); NEUTROPHILS # (AUTO) 5.8 10^3/uL (1.8-7.8); NEUTROPHILS % (AUTO) 61 % (42-75); PLATELET COUNT 266 10^3/uL (130-400); WHITE BLOOD COUNT 9.6 10^3/uL (4.3-11.0)
[2021-11-18 11:25] LABS: BILIRUBIN,TOTAL 0.5 MG/DL (0.1-1.0); CALCIUM 9.4 MG/DL (8.5-10.1); CREATININE SERUM 1.15 MG/DL (0.60-1.30); POTASSIUM 3.7 MMOL/L (3.6-5.0); TOTAL PROTEIN 6.9 GM/DL (6.4-8.2)
== END 2021-12-17 | disposition home or self-care (01) ==
LOC: ONC 09:47
PROVIDERS: ATTEND Internal Medicine Hematology & Oncology
DX: D50.0 Iron deficiency anemia secondary to blood loss (chronic) (principal); I65.23 Occlusion and stenosis of bilateral carotid arteries; I12.9 Hypertensive chronic kidney disease with stage 1 through stage 4 chronic kidney disease, or unspecified chronic kidney disease; E11.22 Type 2 diabetes mellitus with diabetic chronic kidney disease; D63.1 Anemia in chronic kidney disease; N18.30 Chronic kidney disease, stage 3 unspecified; I25.10 Atherosclerotic heart disease of native coronary artery without angina pectoris; E78.5 Hyperlipidemia, unspecified; E66.9 Obesity, unspecified; Z68.37 Body mass index [BMI] 37.0-37.9, adult
CPT/HCPCS: 36415; 80053; 82728; 85025; 99213

== ENCOUNTER 2022-06-01 10:44 | Outpatient (RCR) | payer MEDICARE, MEDICAID ==
[2022-05-28 10:42] LABS: BASOPHILS # (AUTO) 0.1 10^3/uL (0.0-0.1); BASOPHILS % (AUTO) 1 % (0-10); EOSINOPHILS # (AUTO) 0.1 10^3/uL (0.0-0.3); EOSINOPHILS % (AUTO) 1 % (0-10); HEMATOCRIT 39 % (35-52); HEMOGLOBIN 12.8 g/dL (11.5-16.0); LYMPHOCYTES # (AUTO) 2.8 10^3/uL (1.0-4.0); LYMPHOCYTES % (AUTO) 29 % (12-44); MEAN CORPUSCULAR HEMOGLOBIN 29 pg (25-34); MEAN CORPUSCULAR HGB CONC 33 g/dL (32-36); MEAN CORPUSCULAR VOLUME 90 fL (80-99); MEAN PLATELET VOLUME 10.6 fL (9.0-12.2); MONOCYTES # (AUTO) 0.7 10^3/uL (0.0-1.0); MONOCYTES % (AUTO) 7 % (0-12); NEUTROPHILS # (AUTO) 5.9 10^3/uL (1.8-7.8); NEUTROPHILS % (AUTO) 62 % (42-75); PLATELET COUNT 221 10^3/uL (130-400); WHITE BLOOD COUNT 9.5 10^3/uL (4.3-11.0)
[2022-05-28 11:02] LABS: ALBUMIN 3.8 GM/DL (3.2-4.5); BILIRUBIN,TOTAL 0.4 MG/DL (0.1-1.0); CREATININE SERUM 1.23 MG/DL (0.60-1.30); POTASSIUM 3.9 MMOL/L (3.6-5.0); TOTAL PROTEIN 6.3 GM/DL (6.4-8.2)
[~2022-06-01 10:44] MED LIST changes: +POTA-177 PO; -POTA10TA37 PO
== END 2022-06-19 | disposition home or self-care (01) ==
LOC: ONC 10:44
PROVIDERS: ATTEND Internal Medicine Hematology & Oncology
DX: D50.9 Iron deficiency anemia, unspecified (principal); E11.22 Type 2 diabetes mellitus with diabetic chronic kidney disease; I12.9 Hypertensive chronic kidney disease with stage 1 through stage 4 chronic kidney disease, or unspecified chronic kidney disease; N18.30 Chronic kidney disease, stage 3 unspecified; I25.10 Atherosclerotic heart disease of native coronary artery without angina pectoris; E78.5 Hyperlipidemia, unspecified; E66.9 Obesity, unspecified; J45.909 Unspecified asthma, uncomplicated
CPT/HCPCS: 36415; 80053; 82728; 83540; 83550; 85025

== ENCOUNTER → 2022-07-08 | Outpatient (CLI) | payer MEDICARE, MEDICAID ==
[~2022-07-08] MED LIST changes: +POTA10CA44 PO
--- NOTE | 2022-07-08 13:36 | Diagnostic Imaging Report ---
TECHNIQUE: Multiplanar, multisequence MRI of the thoracic spine was performed without contrast. REASON FOR EXAM: Mid back pain. COMPARISON: None. FINDINGS: No acute fracture or dislocation is seen in the thoracic spine. Alignment is anatomic. No suspicious focal osseous lesions are seen. Modic type II endplate degenerative changes are present at the T6-T7 level. Vertebral body heights are well maintained. The intrinsic signal within the thoracic spinal cord is normal. No evidence of cord expansion. No epidural collections. No high-grade spinal canal or foraminal stenosis is seen in the thoracic spine. Posterior disc bulges and facet hypertrophy are scattered in the thoracic spine. These are most prominent at the T7-T8 level resulting in mild spinal canal narrowing and no right and mild left foraminal narrowing. The paraspinal soft tissues are unremarkable. The included lungs are clear. IMPRESSION: 1. No acute fracture or dislocation in the thoracic spine. 2. Modic type II endplate degenerative changes at the T6-T7 level. 3. Mild degenerative changes in the thoracic spine, greatest at T7-T8. No high-grade spinal canal or foraminal stenosis. No large disc bulges. Dictated by: Dictated on workstation # [id number]
== END ==
LOC: RAD 09:39
PROVIDERS: ATTEND Nurse Practitioner Family
DX: M47.24 Other spondylosis with radiculopathy, thoracic region (principal)
CPT/HCPCS: 72146

== ENCOUNTER 2022-08-03 08:48 | Outpatient (RCR) | payer MEDICARE, MEDICAID ==
[2022-07-27 10:11] LABS: BASOPHILS # (AUTO) 0.1 10^3/uL (0.0-0.1); BASOPHILS % (AUTO) 1 % (0-10); EOSINOPHILS # (AUTO) 0.1 10^3/uL (0.0-0.3); EOSINOPHILS % (AUTO) 2 % (0-10); HEMATOCRIT 40 % (35-52); HEMOGLOBIN 13.3 g/dL (11.5-16.0); LYMPHOCYTES # (AUTO) 2.8 10^3/uL (1.0-4.0); LYMPHOCYTES % (AUTO) 30 % (12-44); MEAN CORPUSCULAR HEMOGLOBIN 30 pg (25-34); MEAN CORPUSCULAR HGB CONC 33 g/dL (32-36); MEAN CORPUSCULAR VOLUME 89 fL (80-99); MEAN PLATELET VOLUME 10.2 fL (9.0-12.2); MONOCYTES # (AUTO) 0.7 10^3/uL (0.0-1.0); MONOCYTES % (AUTO) 8 % (0-12); NEUTROPHILS # (AUTO) 5.8 10^3/uL (1.8-7.8); NEUTROPHILS % (AUTO) 61 % (42-75); PLATELET COUNT 229 10^3/uL (130-400); WHITE BLOOD COUNT 9.5 10^3/uL (4.3-11.0)
== END 2022-08-17 | disposition home or self-care (01) ==
LOC: ONC 08:48
PROVIDERS: ATTEND Internal Medicine Hematology & Oncology
DX: D50.9 Iron deficiency anemia, unspecified (principal); E11.22 Type 2 diabetes mellitus with diabetic chronic kidney disease; I12.9 Hypertensive chronic kidney disease with stage 1 through stage 4 chronic kidney disease, or unspecified chronic kidney disease; N18.9 Chronic kidney disease, unspecified; I25.10 Atherosclerotic heart disease of native coronary artery without angina pectoris; E78.5 Hyperlipidemia, unspecified; E66.9 Obesity, unspecified; J45.909 Unspecified asthma, uncomplicated
CPT/HCPCS: 36415; 82728; 83540; 83550; 85025

== ENCOUNTER 2022-09-30 10:38 | Outpatient (RCR) | payer MEDICARE, MEDICAID ==
[~2022-09-30 10:38] MED LIST changes: -INSU100I29 SC; +INSU100I30 SC
[2022-09-30 11:12] LABS: BASOPHILS # (AUTO) 0.1 10^3/uL (0.0-0.1); BASOPHILS % (AUTO) 1 % (0-10); EOSINOPHILS # (AUTO) 0.1 10^3/uL (0.0-0.3); EOSINOPHILS % (AUTO) 1 % (0-10); HEMATOCRIT 40 % (35-52); HEMOGLOBIN 13.5 g/dL (11.5-16.0); LYMPHOCYTES # (AUTO) 2.6 10^3/uL (1.0-4.0); LYMPHOCYTES % (AUTO) 25 % (12-44); MEAN CORPUSCULAR HEMOGLOBIN 29 pg (25-34); MEAN CORPUSCULAR HGB CONC 34 g/dL (32-36); MEAN CORPUSCULAR VOLUME 88 fL (80-99); MEAN PLATELET VOLUME 10.8 fL (9.0-12.2); MONOCYTES # (AUTO) 0.6 10^3/uL (0.0-1.0); MONOCYTES % (AUTO) 6 % (0-12); NEUTROPHILS % (AUTO) 66 % (42-75); PLATELET COUNT 241 10^3/uL (130-400); WHITE BLOOD COUNT 10.5 10^3/uL (4.3-11.0)
== END 2022-10-17 | disposition home or self-care (01) ==
LOC: ONC 10:38
PROVIDERS: ATTEND Internal Medicine Hematology & Oncology
DX: D50.9 Iron deficiency anemia, unspecified (principal); E11.22 Type 2 diabetes mellitus with diabetic chronic kidney disease; I12.9 Hypertensive chronic kidney disease with stage 1 through stage 4 chronic kidney disease, or unspecified chronic kidney disease; N18.9 Chronic kidney disease, unspecified; I25.10 Atherosclerotic heart disease of native coronary artery without angina pectoris; I65.29 Occlusion and stenosis of unspecified carotid artery; E78.5 Hyperlipidemia, unspecified; E66.9 Obesity, unspecified; Z68.33 Body mass index [BMI] 33.0-33.9, adult
CPT/HCPCS: 36415; 82728; 83540; 83550; 85025

== ENCOUNTER 2022-11-23 08:40 | Outpatient (RCR) | payer MEDICARE, MEDICAID ==
[2022-11-18 10:42] LABS: BASOPHILS # (AUTO) 0.1 10^3/uL (0.0-0.1); BASOPHILS % (AUTO) 1 % (0-10); EOSINOPHILS # (AUTO) 0.1 10^3/uL (0.0-0.3); EOSINOPHILS % (AUTO) 1 % (0-10); HEMATOCRIT 41 % (35-52); HEMOGLOBIN 13.5 g/dL (11.5-16.0); LYMPHOCYTES # (AUTO) 2.4 10^3/uL (1.0-4.0); LYMPHOCYTES % (AUTO) 26 % (12-44); MEAN CORPUSCULAR HEMOGLOBIN 29 pg (25-34); MEAN CORPUSCULAR HGB CONC 33 g/dL (32-36); MEAN CORPUSCULAR VOLUME 90 fL (80-99); MEAN PLATELET VOLUME 10.5 fL (9.0-12.2); MONOCYTES # (AUTO) 0.5 10^3/uL (0.0-1.0); MONOCYTES % (AUTO) 5 % (0-12); NEUTROPHILS # (AUTO) 6.2 10^3/uL (1.8-7.8); NEUTROPHILS % (AUTO) 67 % (42-75); PLATELET COUNT 246 10^3/uL (130-400); WHITE BLOOD COUNT 9.3 10^3/uL (4.3-11.0)
== END 2022-12-17 | disposition home or self-care (01) ==
LOC: ONC 08:40
PROVIDERS: ATTEND Internal Medicine Hematology & Oncology
DX: D50.9 Iron deficiency anemia, unspecified (principal); E11.22 Type 2 diabetes mellitus with diabetic chronic kidney disease; I12.9 Hypertensive chronic kidney disease with stage 1 through stage 4 chronic kidney disease, or unspecified chronic kidney disease; N18.9 Chronic kidney disease, unspecified; I25.10 Atherosclerotic heart disease of native coronary artery without angina pectoris; I65.29 Occlusion and stenosis of unspecified carotid artery; E78.5 Hyperlipidemia, unspecified; E66.9 Obesity, unspecified; Z68.33 Body mass index [BMI] 33.0-33.9, adult
CPT/HCPCS: 36415; 82728; 83540; 83550; 85025

== ENCOUNTER 2023-01-24 09:15 | Outpatient (RCR) | payer MEDICARE, MEDICAID ==
[~2023-01-24 09:15] MED LIST changes: -POTA10CA44 PO; +POTA10CA84 PO
[2023-01-24 09:38] LABS: BASOPHILS # (AUTO) 0.1 10^3/uL (0.0-0.1); BASOPHILS % (AUTO) 1 % (0-10); EOSINOPHILS # (AUTO) 0.1 10^3/uL (0.0-0.3); EOSINOPHILS % (AUTO) 1 % (0-10); HEMATOCRIT 41 % (35-52); HEMOGLOBIN 13.3 g/dL (11.5-16.0); LYMPHOCYTES # (AUTO) 2.5 10^3/uL (1.0-4.0); LYMPHOCYTES % (AUTO) 27 % (12-44); MEAN CORPUSCULAR HEMOGLOBIN 29 pg (25-34); MEAN CORPUSCULAR HGB CONC 32 g/dL (32-36); MEAN CORPUSCULAR VOLUME 90 fL (80-99); MEAN PLATELET VOLUME 10.9 fL (9.0-12.2); MONOCYTES # (AUTO) 0.7 10^3/uL (0.0-1.0); MONOCYTES % (AUTO) 8 % (0-12); NEUTROPHILS # (AUTO) 5.9 10^3/uL (1.8-7.8); NEUTROPHILS % (AUTO) 62 % (42-75); PLATELET COUNT 232 10^3/uL (130-400); WHITE BLOOD COUNT 9.4 10^3/uL (4.3-11.0)
== END 2023-02-17 | disposition home or self-care (01) ==
LOC: ONC 09:15
PROVIDERS: ATTEND Internal Medicine Hematology & Oncology
DX: D50.9 Iron deficiency anemia, unspecified (principal); E11.22 Type 2 diabetes mellitus with diabetic chronic kidney disease; I12.9 Hypertensive chronic kidney disease with stage 1 through stage 4 chronic kidney disease, or unspecified chronic kidney disease; N18.9 Chronic kidney disease, unspecified; I25.10 Atherosclerotic heart disease of native coronary artery without angina pectoris; I65.29 Occlusion and stenosis of unspecified carotid artery; E78.5 Hyperlipidemia, unspecified; E66.9 Obesity, unspecified; Z68.33 Body mass index [BMI] 33.0-33.9, adult
CPT/HCPCS: 36415; 82728; 83540; 83550; 85025

== ENCOUNTER 2023-03-29 08:13 | Outpatient (RCR) | payer MEDICARE, MEDICAID ==
[2023-03-22 09:45] VITALS: BP 133/77
[2023-03-22] MEDS: FERRIC CARBOXYMALTOSE INJ 750 MG in NS (IVPB) 250 ML 250 ML IV SCH (09:50)
[~2023-03-29] VITALS: Ht 175.3 cm; Wt 98.4 kg
[~2023-03-29 08:13] MED LIST changes: -OXYB5TAB13 PO; +OXYB5TAB14 PO
[2023-03-29 09:15] VITALS: BP 131/72
[2023-03-29] MEDS: FERRIC CARBOXYMALTOSE INJ 750 MG in NS (IVPB) 250 ML 250 ML IV SCH (09:30)
== END 2023-04-19 | disposition home or self-care (01) ==
LOC: ONC 08:13
PROVIDERS: ATTEND Internal Medicine Hematology & Oncology
DX: D50.9 Iron deficiency anemia, unspecified (principal); E11.22 Type 2 diabetes mellitus with diabetic chronic kidney disease; I12.9 Hypertensive chronic kidney disease with stage 1 through stage 4 chronic kidney disease, or unspecified chronic kidney disease; N18.9 Chronic kidney disease, unspecified; I25.10 Atherosclerotic heart disease of native coronary artery without angina pectoris; E78.5 Hyperlipidemia, unspecified; E66.9 Obesity, unspecified; J45.909 Unspecified asthma, uncomplicated
CPT/HCPCS: 96365; G0463; 36415; 99214

== ENCOUNTER → 2023-04-13 | Outpatient (CLI) | payer MEDICARE, MEDICAID ==
[~2023-04-13] MED LIST changes: +OXYB5TAB13 PO; -OXYB5TAB14 PO
--- NOTE | 2023-04-13 12:53 | Diagnostic Imaging Report ---
PROCEDURE: US Renal Bilateral. TECHNIQUE: Multiple real-time grayscale images were obtained over the kidneys in various projections bilaterally. INDICATION: Cystitis. COMPARISON: CT abdomen and pelvis from 11/30/2018. FINDINGS: The urinary bladder is partially filled with a pre-void volume of 58 mL. There is no bladder wall thickening or intraluminal mass. Post-void imaging was not performed. Right kidney measures 12 cm in length. The left kidney measures 10 cm in length. No hydronephrosis, solid mass, or complex cyst on either side. There is a simple cyst along the mid aspect of the right kidney that is similar in size to prior CT. IMPRESSION: 1. No abnormal bladder wall thickening. 2. No hydronephrosis or echogenic renal stones. Dictated by: Dictated on workstation # [id number]
== END ==
LOC: RAD 07:26
PROVIDERS: ATTEND Nurse Practitioner Family
DX: N30.00 Acute cystitis without hematuria (principal)
CPT/HCPCS: 76770